=== PATIENT | female | born 1995 | race Caucasian/White ===

== ENCOUNTER 2020-04-10 19:30 | Emergency (ER) | payer OTHER ==
[~2020-04-10] VITALS: Ht 162.6 cm; Wt 114.5 kg
[2020-04-10 21:06] LABS: BASO % 0.3 % (0.0-1.0); EOS # 0.1 10^3/uL (0.0-0.5); EOS % 0.6 % (0.0-3.0); HEMATOCRIT 40.4 % (36.0-47.0); HEMOGLOBIN 12.5 g/dl (12.0-15.5); LYMPH # 4.3 10^3/uL (1.5-5.0); LYMPH % 33.5 % (24.0-44.0); MEAN CORPUSCULAR HEMOGLOBIN 28.2 pg (27.0-33.0); MEAN CORPUSCULAR HGB CONC 30.9 g/dl (32.0-36.5); MEAN CORPUSCULAR VOLUME 91.2 fl (80.0-96.0); MONO # 0.5 10^3/uL (0.0-0.8); MONO % 3.6 % (0.0-5.0); NEUTROPHILS # 7.8 10^3/uL (1.5-8.5); NEUTROPHILS % 61.7 % (36.0-66.0); PLATELET COUNT, AUTOMATED 397 10^3/uL (150-450); RED BLOOD COUNT 4.43 10^6/uL (4.00-5.40); WHITE BLOOD COUNT 12.7 10^3/uL (4.0-10.0)
[2020-04-10 21:20] LABS: ALT/SGPT 54 U/L (12-78); BILIRUBIN,DIRECT < 0.1 MG/DL (0.0-0.2); BILIRUBIN,TOTAL 0.2 MG/DL (0.2-1.0); LIPASE 63 U/L (73-393); TOTAL PROTEIN 8.3 GM/DL (6.4-8.2)
[2020-04-10] MEDS ORDERED: ISOVUE-370 76% 100ML VIAL As Ordered ONE (21:39)
--- NOTE | 2020-04-10 22:24 | REPVR ---
PROCEDURE INFORMATION: Exam: CT Abdomen And Pelvis With Contrast Exam date and time: 04/10/2020 10:07 PM Age: 25 years old Clinical indication: Abdominal pain; Generalized TECHNIQUE: Imaging protocol: Computed tomography of the abdomen and pelvis with intravenous contrast. Radiation optimization: All CT scans at this facility use at least one of these dose optimization techniques: automated exposure control; mA and/or kV adjustment per patient size (includes targeted exams where dose is matched to clinical indication); or iterative reconstruction. Contrast material: ISOVUE 370; Contrast volume: 100 ml; Contrast route: INTRAVENOUS (IV); COMPARISON: No relevant prior studies available. FINDINGS: Lungs: No suspicious mass or airspace process in the visualized lung bases. Liver: Liver is enlarged and decreased in density suggesting hepatic steatosis. Liver measures 25 cm in long axis. Gallbladder and bile ducts: Gallbladder is present and shows no evidence of gallstone. Pancreas: Pancreas appears normal. No focal mass or peripancreatic inflammation. Spleen: Spleen appears homogeneous without focal mass. Adrenal glands: Adrenal glands are normal in appearance. Kidneys and ureters: Kidneys appear normal, with no stone, solid mass or hydronephrosis. Stomach and bowel: No evidence of small bowel obstruction. Terminal ileum has normal appearance. No evidence of acute diverticulitis. Appendix: Normal caliber appendix is identified, with no adjacent inflammation. Intraperitoneal space: No pneumoperitoneum. Vasculature: No aortic aneurysm. Main portal and splenic veins enhance normally. Lymph nodes: No enlarged lymph nodes. Urinary bladder: Urinary bladder appears normal. Reproductive: Female reproductive organs appear unremarkable. Bones/joints: Bony structures are normal except for lumbar spine degenerative disc changes and congenital spinal stenosis with short pedicles. Soft tissues: Fat containing umbilical hernia is present. No effacement of normal fat planes in the ischiorectal fossa. No concerning focal abnormality of the extra-abdominal and pelvic soft tissues. IMPRESSION: 1. Hepatomegaly and hepatic steatosis. No focal lesion or biliary disease. 2. No acute bowel abnormality. No other concerning finding. Electronically signed by: Carrillo Hassan On 04/10/2020 22:23:50 PM
[2020-04-10] MEDS ORDERED: MACR100C43 PO (22:34)
[2020-04-10 22:43] VITALS: BP 186/108
[2020-04-10] MEDS ORDERED: NITROFURANTOIN (MACROBID) 100 MG CAP PO ONE (22:45)
== END 2020-04-10 22:51 | disposition home or self-care (01) ==
LOC: M ED 19:30
DX: N30.90 Cystitis, unspecified without hematuria (principal); F32.9 Major depressive disorder, single episode, unspecified; Z88.0 Allergy status to penicillin
CPT/HCPCS: 36415; 74177; 80076; 81001; 83690; 85025; 87086; 99285; Q9967

== ENCOUNTER 2020-05-15 17:22 | Emergency (ER) | payer OTHER ==
[~2020-05-15] VITALS: Ht 162.6 cm; Wt 115.1 kg
[~2020-05-15 17:22] MED LIST: MACR100C43 PO
[2020-05-15] MEDS ORDERED: QUET5TAB PO (17:32)
[2020-05-15] MEDS ORDERED: PANT40TA29 PO (17:32)
[2020-05-15] MEDS ORDERED: ESCI10TA2 PO (17:32)
[2020-05-15 20:06] LABS: HEMATOCRIT 41.1 % (36.0-47.0); HEMOGLOBIN 13.1 g/dl (12.0-15.5); MEAN CORPUSCULAR HGB CONC 31.9 g/dl (32.0-36.5); MEAN CORPUSCULAR VOLUME 87.8 fl (80.0-96.0); PLATELET COUNT, AUTOMATED 431 10^3/uL (150-450); RED BLOOD COUNT 4.68 10^6/uL (4.00-5.40); WHITE BLOOD COUNT 14.7 10^3/uL (4.0-10.0)
[2020-05-15 20:23] LABS: LYMPHOCYTES 21 % (16-44); MONOCYTES 3 % (0-5); NEUTROPHILS 76 % (28-66); PLATELET ESTIMATE INCREASED (NORMAL)
[2020-05-15 20:31] LABS: BLOOD UREA NITROGEN 16 MG/DL (7-18); CALCIUM LEVEL 9.4 MG/DL (8.5-10.1); CARBON DIOXIDE LEVEL 26 MEQ/L (21-32); CHLORIDE LEVEL 105 MEQ/L (98-107); CREATININE FOR GFR 0.61 MG/DL (0.55-1.30); GLOMERULAR FILTRATION RATE > 60.0 (>60); GLUCOSE, FASTING 103 MG/DL (70-100); POTASSIUM SERUM 4.3 MEQ/L (3.5-5.1); SODIUM LEVEL 138 MEQ/L (136-145)
[2020-05-15 20:34] LABS: HCG, SERUM QUALITATIVE NEGATIVE (NEGATIVE)
[2020-05-15] MEDS ORDERED: BACT800T5 PO (20:38)
[2020-05-15 20:41] VITALS: BP 131/87
== END 2020-05-15 20:57 | disposition home or self-care (01) ==
LOC: M ED 17:22
DX: N39.0 Urinary tract infection, site not specified (principal); I10 Essential (primary) hypertension; R56.9 Unspecified convulsions; F33.9 Major depressive disorder, recurrent, unspecified; E66.9 Obesity, unspecified; Z79.899 Other long term (current) drug therapy; Z88.0 Allergy status to penicillin

== ENCOUNTER 2020-07-25 10:58 | Emergency (ER) | payer OTHER ==
[~2020-07-25] VITALS: Ht 157.5 cm; Wt 117.0 kg
[~2020-07-25 10:58] MED LIST changes: +BACT800T5 PO; +ESCI10TA16 PO; +PANT40TA29 PO; +QUET50TA3 PO
--- OUTSIDE RECORDS SUMMARY | 2020-07-25 11:13 | CCD ---
Author Author [facility] Organization [facility] Address [address] [place] [address] Phone Care Team Providers Care Snack Stewardess Name Role Phone Az Marie DO Unavailable [phone] Az Marie DO PP [phone] Reason for Referral No Reason for Referral Recorded Problems Includes: Active, inactive, and resolved Problems All Visits Onset Date - Time Resolved Date - Time Provider Co ndition Status Difficulty Breathing (Dyspnea) 02/21/2020 - 12:00AM Nadia Mclain NP Active Depression 08/23/2019 - 12:00AM Az Marie DO Active Lactose Intolerance 08/23/2019 - 12:00AM Az sawyer DO Active Generalized Anxiety Disorder 06/23/2019 - 12:00AM Monique Marie DO Active History of Major Depression 06/23/2019 - 12:00AM Dimitrios Marie DO Active Dizziness 06/02/2019 - 12:00AM Patricia Mclain NP Act [place] 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 Elevated Liver Enzymes 03/21/2019 - 12:00AM Az Marie DO Active Microalbuminuria 03/21/2019 - 12:00AM Az zepeda DO Active Skin Disorder Exanthem 01/08/2018 - 12:00AM Unknown - Unknown Yonatan Short MD Resolved Note: Resolved Anemia 10/27/2016 - 12:00AM Tori Savage Active Note: Unchanged Visit For: Screening Exam Depression 10/20/2016 - 12:00AM Tori Short MD Active Dysmenorrhea 10/20/2016 - 12:00AM Tori Savage Active Note: with hypermenorrhea Visit For: Screening Exam Lipoid Disorders 10/20/2016 - 12:00AM Tori Short MD Active Visit For: Screening Exam For Human Immunodeficiency Virus 0 10/20/2016 - 12:00AM Tori Short MD Active Obesity Morbid 10/17/2015 - 12:00AM Tori Short MD Active Note: Improved Visit For: Screening Exam For Malignant Neoplasm Cervix 10/17/19 16 - 12:00AM Tori Sohrt MD Active Note: no sexual activity. 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 - 12:00AM Tori Savage Active Note: Well-Controlled - bilalexander teral, followed by Dr Blackwell Intellectual Disabilities 09/12/2013 - 12:00AM Jessica Short MD Active Note: Unchanged Epilepsy 08/30/2007 - 12:00AM Unknown - Unknown Tori lane MD Resolved Note: Resolved - DR RAMÍREZ followed, was ON LAMOTRIGINE 150 BID, discontinued 2012 Plan of Treatment Pending Tests Order Diagnosis Results Due Ordering Provi domonique Lab CT ABD & PEL W CONTRAST 04/12/20 Aster Santana NP Referrals To Diagnosis Physical Therapy Other specified aki enital deformities of feet Note: Please schedule patient with provi derPhysical Therapy: please schedule 3 times weekly for 6 months for evaluation and treatment of: Club Feet GI [facility] Gastroentero logy and M Epigastric pain Note: Please schedule patient with provi domonique- persistent abd sx's send last few notes and scans [facility] Major depressive dis order, single episode, unspecified Note: Depressive symptoms after loss of grandfather who raised her since 3 weeks of age. He a year ago. Started on SSRI 2 months ago. 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, bronchus and lung Note: Please schedule patient with provi domonique- please CC last [address] scans [facility] Major depressive dis order, single episode, unspecified Note: Please schedule patient with provi domonique- dx as listed hx poorly controlled A/D with weekly and sometimes daily trips to ER / admission and limited cognitive capacity- 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- Antony Cox Future Appointments Date Time Location Provider D Emergency 07/25/2020 4:15PM [facility] Anni morales DDS Chronic Disease Follow-up 10/23/2020 1:00PM [facility] Trang Enamorado BRANCH SERVICE LEADER Findings Encounter Date Ordered return to the clinic if condition worsens or n ew symptoms arise Acute Follow-up Telehealth with Aster Santana RESIDENTIAL PROPERTY CONSULTANT 07/20/2020 Ordered return to the clinic if condition worsens or n ew symptoms arise Acute L1 with Nicolasa Pablo NP 07/18/2020 Instructions for patient YOUR SYMPTOMS TODAY ARE POTENTIALLY CONSISTENT WITH COVID-19. FOR THIS REASON WE HAVE ADVISED A COVID TEST. PATIENT REFUSED. SHE LIVES ALONE AND IS TYPICALLY HOMEBOUND. SHE IS AWARE THAT SHE NEEDS TO QUARANTINE AT HOME FOR THE NEXT 10 DAYS, AT MINIMUM. ADVISED HER TO MONITOR FOR A FEVER OR WORSENING SYMPTOMS, TO CALL WITH ANY CONCERNS. TO HAVE GROCERIES DROPPED OFF AT HER DOOR. DURING THIS TIME IT IS IMPORTANT TO REST, INCREASE FLUIDS, AND MONITOR SYMPTOMS. MAY USE TYLENOL/IBUPROFEN NEEDED FOR FEVER/DISCOMFORT. ENCOURAGED USE OF FLONASE AND CONTINUE HYDROXYZINE. USE HUMIDIFIER/HOT STEAM FOR NASAL PASSAGES. WE WILL CALL WITH LAB RESULTS. F/U WITH PCP IN 7-10 DAYS. CALL SOONER WITH ANY CONCERNS Acute L1 with Aura Roa BRANCH SERVICE LEADER 06/26/2020 Ordered return to the clinic if condition worsens or n ew symptoms arise Acute L2 with Aster Santana RESIDENTIAL PROPERTY CONSULTANT 05/18/2020 Ordered follow-up visit AHR with Trang Enamorado BRANCH SERVICE LEADER 2019 Ordered return to the clinic if condition worsens or n ew symptoms arise AHR with Trang Enamorado BRANCH SERVICE LEADER 05/01/2020 Return to the clinic if condition worsens or new sympt oms arise AHR with Trang Enamorado BRANCH SERVICE LEADER 05/01/2020 Instructions for patient Acute L1 with Aster Santana RESIDENTIAL PROPERTY CONSULTANT 03/16 Ordered follow-up visit Acute L1 with Aster Santana RESIDENTIAL PROPERTY CONSULTANT 04/10 Ordered return to the clinic if condition worsens or n ew symptoms arise Acute L1 with Aster Santana RESIDENTIAL PROPERTY CONSULTANT 04/10/2020 Instructions for patient Acute L3 with Az Savage O 03/12/2020 Ordered follow-up visit Acute L3 with Az Marie DO 03/12/2020 Ordered return to the clinic if condition worsens or n ew symptoms arise Acute L3 with Az Marie DO 03/12/2020 Ordered return to the clinic if conditio n worsens or new symptoms arise WILL SEND HER EKG TO CARDIOLOGY FOR OFFICIAL READ. I ADVISED HER TO GO HOME AND RELAX FOR THE REST OF THE DAY. SHE WAS D/C'D IN STABLE CONDITION Emergency with Aster Frausto RESIDENTIAL PROPERTY CONSULTANT 03/05/2020 Return to the clinic if condition worsens or new sympt oms arise Emergency with Patricia Mclain RESIDENTIAL PROPERTY CONSULTANT 02/21/2020 Instructions for patient D Emergency with Az katz DO 02/03/2020 Ordered follow-up visit D Emergency with Az Marie DO 02/03/2020 Ordered return to the clinic if condition worsens or n ew symptoms arise D Emergency with Az Marie DO 02/03/2020 Ordered Clinical summary transmitted to referring provider electronically with reasonable certainty of receipt or receiving provider electronically through [facility] Telephonic Encounter with Az Marie DO 01/26/2020 Ordered Clinical summary transmitted to referring provider electronically with reasonable certainty of receipt or receiving provider electronically through [facility] Telephonic Encounter with Az Marie DO 12/12/2019 Instructions for patient Emergency with Az Marie DO 12/02/2019 Ordered Clinical summary transmitted to referring provider electronically with reasonable certainty of receipt or receiving provider electronically through [facility] ER Emergency with Az Marie DO 12/02/2019 Ordered follow-up visit Emergency with Az Savage O 12/02/2019 Ordered return to the clinic if condition worsens or n ew symptoms arise Emergency with Az Marie DO 12/02/2019 Instructions for patient Hospital Follow-up with Az hylton DO 11/21/2019 Ordered Clinical summary transmitted to referring provider electronically with reasonable certainty of receipt or receiving provider electronically through [facility] Follow-up with Az Marie DO 11/21/2019 Ordered follow-up visit Hospital Follow-up with Az stephenson DO 11/21/2019 Ordered return to the clinic if condition worsens or n ew symptoms arise Hospital Follow-up with Az Marie DO 11/21/2019 Instructions for patient Telehealth with Az Marie DO 09/08/2019 Ordered Clinical summary transmitted to referring provider electronically with reasonable certainty of receipt or receiving provider electronically through [facility] ER Telehealth with Az Marie DO 09/08/2019 Ordered follow-up visit Telehealth with Az Marie DO 09/08/2019 Ordered return to the clinic if condition worsens or n ew symptoms arise Telehealth with Az Marie DO 09/08/2019 Instructions for patient Medication Follow-up with Az Marie DO 08/23/2019 Ordered follow-up visit Medication Follow-up with Az Marie DO 08/23/2019 Ordered return to the clinic if condition worsens or n ew symptoms arise Medication Follow-up with Az Marie DO 08/23/2019 Instructions for patient Labs as ord ered. GI referral as ordered. Will get MRI brain and call with results. Follow up with Dr. Marie as scheduled 09/07, sooner with concerns or changes. ER with any chest pain, severe dizziness, syncope, mental status changes. Hospital Follow-up with Trang TOMPKINS 08/18/2019 Ordered Clinical summary transmitted to referring provider electronically with reasonable certainty of receipt or receiving provider electronically through [facility] Follow-up with Trang Enamorado [facility] 0 Ordered follow-up visit Hospital Follow-up with Trang lindo [facility] 08/18/2019 Ordered return to the clinic if condition worsens or n ew symptoms arise Hospital Follow-up with Trangmary beth Enamorado [facility] 08/18/2019 Instructions for patient meds as rx in crease fluids medicate for temp -Can go to the ER if worsening sx Otherwise follow here if not better with tx Walk- In with Anay Rincon NP 06/27/2019 Ordered Clinical summary transmitted to referring provider electronically with reasonable certainty of receipt or receiving provider electronically through [facility] ER Walk-In with Anay Rincon RESIDENTIAL PROPERTY CONSULTANT 06/27/2019 Ordered return to the clinic if condition worsens or n ew symptoms arise Walk-In with Anay Rincon RESIDENTIAL PROPERTY CONSULTANT 06/27/2019 Instructions for patient Hospital Follow-up with Az hylton DO 06/23/2019 Ordered Clinical summary transmitted to referring provider electronically with reasonable certainty of receipt or receiving provider electronically through [facility] ER Hospital Follow-up with Az Marie DO 06/23/2019 Ordered follow-up visit Hospital Follow-up with Az stephenson DO 06/23/2019 Ordered return to the clinic if condition worsens or n ew symptoms arise Hospital Follow-up with Az Marie DO 06/23/2019 Ordered Clinical summary transmitted to referring provider electronically with reasonable certainty of receipt or receiving provider electronically through [facility] ER Walk-In with Patricia Mclain NP 06/02/2019 Return to the clinic if condition worsens or new sympt oms arise Walk-In with Patricia Mclain RESIDENTIAL PROPERTY CONSULTANT 06/02/2019 Instructions for patient Follow-up Acute with Az evans DO 05/09/2019 Ordered Clinical summary transmitted to referring provider electronically with reasonable certainty of receipt or receiving provider electronically through [facility] ER Follow-up Acute with Az Marie DO 05/09/2019 Ordered follow-up visit Follow-up Acute with Az rendon DO 05/09/2019 Ordered return to the clinic if condition worsens or n ew symptoms arise Follow- up Acute with Az Marie DO 05/09/2019 Instructions for patient Hospital Follow-up with Az hylton DO 05/02/2019 Ordered Clinical summary transmitted to referring provider electronically with reasonable certainty of receipt or receiving [facility] Hospital Follow-up with Az Marie DO 05/02/2019 Ordered follow-up visit Hospital Follow-up with Az stephenson DO 05/02/2019 Ordered return to the clinic if condition worsens or n ew symptoms arise Hospital Follow-up with Az Marie DO 05/02/2019 Ordered Clinical summary transmitted to referring provider electronically with reasonable certainty of receipt or receiving provider [facility] Walk-In with Aster SHANE 04/25/2019 Ordered follow-up visit 1-2 weeks if no t resolving-- sooner if weakness, increased pain or symptoms-- Walk-In with Aster SHANE 04/25/2019 Ordered return to the clinic if condition worsens or n ew symptoms arise Walk-In with Aster SHANE 04/25/2019 Instructions for patient Establish Care with Az rendon DO 03/15/2019 Ordered Clinical summary transmitted to referring provider electronically with reasonable certainty of receipt or receiving provider [facility] Establish Care with Az Marie DO 03/15/2019 Ordered follow-up visit Establish Care with Az zepeda DO 03/15/2019 Ordered return to the clinic if condition worsens or n ew symptoms arise Establish Care with Az Marie DO 03/15/2019 Ordered Clinical summary transmitted to referring provider electronically or receiving provider [facility] AHR with Tori Short MD 04/28/2018 Ordered return to the clinic if condition worsens or n ew symptoms arise AHR with Tori Short MD 04/28/2018 Ordered Clinical summary transmitted to referring provider electronically or receiving provider [facility] Walk-In with Ana Boswell DO 01/08/2018 Continue current medication except where otherwise no rosa maria Chronic Disease Follow-up with Tori Short MD 08/13/2017 Ordered Clinical summary transmitted to referring provider electronically or receiving provider [facility] Chronic Disease Follow-up with Tori Short MD 08/13/2017 Ordered return to the clinic if condition worsens or n ew symptoms arise Chronic Disease Follow-up with Tori Short MD 08/13/2017 Continue current medication except where otherwise no rosa maria Chronic Disease Follow-up with Tori Short MD 03/11/2017 Ordered return to the clinic if condition worsens or n ew symptoms arise Chronic Disease Follow-up with Tori Short MD 03/11/2017 Ordered Transition in care, clinical sum aster provided electronically through [facility] Chronic Disease Follow-up with Tori Short MD 03/11/2017 Continue current medication unless otherwise stated A HR with Tori Short MD 10/20/2016 Medical regimen review AHR with Tori Short MD 2016 Ordered follow-up visit AHR with Tori Short MD 10/20 Ordered return to the clinic if condition worsens or n ew symptoms arise AHR with Tori Short MD 10/20/2016 Ordered Transition in care, clinical sum aster provided electronically through [facility] AHR with Tori Short MD 10/20/2016 Patient education about pain management AHR with Tori Short MD 10/20/2016 Ordered return to the clinic if condition worsens or n ew symptoms arise Consult with Tori Short MD 08/06/2016 Patient education about pain management as appropriat e Consult with Tori Short MD 08/06/2016 Continue current medication unless otherwise indicate d AHR with Tori Short MD 10/17/2015 Medical regimen review AHR with Tori Short MD 2015 Ordered follow-up visit AHR with Tori Short MD 10/16 Ordered return to the clinic if condition worsens or n ew symptoms arise AHR with Tori Short MD 10/17/2015 Patient education about pain management as appropriat e AHR with Tori Short MD 10/17/2015 Continue current medication except where otherwise no rosa maria Work Physical with Tori Short MD 08/16/2015 Ordered return to the clinic if condition worsens or n ew symptoms arise Work Physical with Tori Short MD 08/16/2015 Return to the clinic if condition worsens or new sympt oms arise Walk-In with Ana Boswell DO 12/29/2014 Continue current medication unless otherwise stated A HR with Tori Short MD 10/02/2014 Medical regimen review AHR with Tori Short MD 2014 Ordered follow-up visit AHR with Tori Short MD 10/02 Ordered return to the clinic if condition worsens or n ew symptoms arise AHR with Tori Short MD 10/02/2014 Patient education about pain management AHR with Tori Short MD 10/02/2014 Ordered disposition - Patient or jacques oakes was instructed in use of tylenol and/or motrin as needed for pain or fever, and mucinex as needed. Fluids, rest was advised. Also, the patient is to return or call for appointment if there is persistence of fever for more than 48 hours, pain or other new significant symptoms Walk-In with Aster SHANE 09/12/2014 Ordered return to the clinic if condition worsens or n ew symptoms arise Walk-In with Aster SHANE 09/12/2014 Continue soaking hand in hot water sev eral times a day for 15-20 minutes. May apply abx ointment and cover with BA. Complete full course of Bactrim wound check with Yen Garland NP 09/20/2013 Ordered return to the clinic if condition worsens or n ew symptoms arise wound check with Yen Garland NP 09/20/2013 Soak hand in hot water for 15-20 min 3-4 times a day to promote drainage M Same Day with Yen Garland NP 09/16/2013 Ordered disposition - Hand was soaked i n hot water with povidine; scab was removed with #11 blade; specimen taken; no fb visualized; triple abx ointment applied to wound and covered with BA. Pt tolerated without complaint M Same Day with Yen Garland NP 09/16/2013 Ordered return to the clinic if condition worsens or n ew symptoms arise M Same Day with Yen Garland NP 09/16/2013 Ordered return to the clinic if condition worsens or n ew symptoms arise WELL CHILD CHECK with Yen Garland NP 09/12/2013 Recommended regular toileting schedule at school to decrease incontinence M Same Day with Yen Garland NP 04/15/2013 Ordered fluids (patient to increase p.o. intake) M Sa me Day with Yen Garland RESIDENTIAL PROPERTY CONSULTANT 04/15/2013 Ordered return to the clinic if condition worsens or n ew symptoms arise M Same Day with Yen Garland NP 04/15/2013 Supplies sent home for stool specimen. GM aware M Sa me Day with Yen Garland RESIDENTIAL PROPERTY CONSULTANT 03/17/2013 Ordered return to the clinic if condition worsens or n ew symptoms arise M Same Day with Yen Garland NP 03/17/2013 Also recommended A&D ointment for erythema of vagina l area M Same Day with Yen Garland RESIDENTIAL PROPERTY CONSULTANT 10/20/2012 Ordered a urine culture M Same Day with Yen Garland RESIDENTIAL PROPERTY CONSULTANT 10/20/2012 Ordered fluids (patient to increase p.o. intake) Sa me Day with Yen Garland RESIDENTIAL PROPERTY CONSULTANT 10/20/2012 Ordered urinalysis M Same Day with Yen Garland RESIDENTIAL PROPERTY CONSULTANT 01/2013 Ordered a urine culture M Same Day with Yen Garland RESIDENTIAL PROPERTY CONSULTANT 10/07/2012 Ordered fluids (patient to increase p.o. intake) Day with Yen Garland RESIDENTIAL PROPERTY CONSULTANT 10/07/2012 Ordered urinalysis M Same Day with Yen Garland NP 09/14 Keep toe clean and dry. May apply antibacterial oint ment prn WELL CHILD CHECK with Yen Garland NP 08/19/2012 Ordered return to the clinic if condition worsens or n ew symptoms arise WELL CHILD CHECK with Yen Garland NP 08/19/2012 Ordered return to the clinic if condition worsens or n ew symptoms arise M Same Day with Yen Garland NP 07/16/2011 TC to to discuss findings and recommendations WEL L CHILD CHECK with Yen Garland NP 06/24/2011 Ordered influenza virus vaccine Provided VIS and perm ission form today WELL CHILD CHECK with Yen Garland NP 06/24/2011 Ordered return to the clinic if condition worsens or n ew symptoms arise M Same Day with Yen Garland RESIDENTIAL PROPERTY CONSULTANT 05/20/2011 Ordered return to the clinic if condition worsens or n ew symptoms arise M Same Day with Yen Garland NP 04/29/2011 Ordered return to the clinic if condition worsens or n ew symptoms arise M Same Day with Yen Garland NP 03/12/2011 Ordered return to the clinic if condition worsens or n ew symptoms arise M Same Day with Yen Morales Gill RESIDENTIAL PROPERTY CONSULTANT 03/10/2011 Ordered return to the clinic if condition worsens or n ew symptoms arise M Same Day with Yen L Gill COULTER 02/20/2011 Recommended otc ear gtts for cerumen - debrox. Will recheck in 1-2 weeks M Acute with Yen Morales Gill COULTER 05/29/2009 Ordered disposition - Telephone call to to discuss findings and recommendations M Acute with Yen Morales Gill COULTER 05/29/2009 Ordered follow-up visit in 1-2 weeks M Acute with Yen Domenica Amara munoz RESIDENTIAL PROPERTY CONSULTANT 05/29/2009 Ordered return to the clinic if condition worsens or n ew symptoms arise M Acute with Yen Morales Gill RESIDENTIAL PROPERTY CONSULTANT 05/29/2009 Assessments Includes: Assessments for all patient encounters Findings Encounter Date Pharyngitis Acute Follow-up Telehealth with Aster malave RESIDENTIAL PROPERTY CONSULTANT 07/20/2020 Acute pharyngitis Acute L1 with Nicolasa Pablo RESIDENTIAL PROPERTY CONSULTANT 07/18 Vaginitis Acute L1 with Aura Roa [facility] 2020 Viral syndrome Acute L1 with Aura Roa [facility] 2020 Vaginitis Acute Follow-up Well with Aster Santana NP 05/22/2020 Pediculosis Acute L2 with Aster Santana NP 0 Depression - Appears to be doing well today. 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 Also stable in size on CTA from 11/14/19. Can consider imaging in 1 year- November 2020. Patient low risk AHR with Trang Panda Kelsea [facility] 05/01/2020 Routine history and physical see [facility] ed problem list above for impression and plan of any problems addressed today. Immunizations reviewed. Tetanus advsied and refused. Flu up to date. Pnuemonia up to date. Shingles after 50. Routine cancer screening reviewed. PAP done today. Mammograms at age 49. Colon screenig at age 49. AHR with Trang Enamorado [facility] 05/01/2020 Abdominal pain Acute L1 with Aster Santana RESIDENTIAL PROPERTY CONSULTANT 0 Dyspnea Acute L1 with Aster Santana RESIDENTIAL PROPERTY CONSULTANT 0 Major depressive disorder [Patient Encounter] with Daphne Rosenberg MD 04/04/2020 No psychological trauma [Patient Encounter] with Daphne thomas MD 04/04/2020 No substance abuse [Patient Encounter] with Daphne Rosenberg MD 04/04/2020 No substance dependence [Patient Encounter] with Daphne thomas MD 04/04/2020 Depression Acute L3 with Az Marie DO Generalized anxiety disorder Acute L3 with Az guadarrama DO 03/12/2020 Morbid obesity Acute L3 with Az Marie DO Assessment of dizziness Emergency with Aster Olvera Bharat crum RESIDENTIAL PROPERTY CONSULTANT 03/05/2020 Cerumen impaction Emergency with Aster Olvera Bharat Kitty stephens RESIDENTIAL PROPERTY CONSULTANT 03/05/2020 Assessment of dizziness Emergency with Patricia Mclain RESIDENTIAL PROPERTY CONSULTANT 01/2020 Assessment of dyspnea Emergency with Patricia Mclain NP 2019 Chest pain Emergency with Patricia Mclain NP 02/21/20 20 Intellectual disabilities Emergency with Patricia Mclain RESIDENTIAL PROPERTY CONSULTANT Suicide risk Emergency with Patricia Mclain RESIDENTIAL PROPERTY CONSULTANT 02/21/20 20 Chest pain D Emergency with Az Marie DO 02/03/2020 Depression D Emergency with Az Marie DO 02/03/2020 Lactose intolerance D Emergency with Az Marie DO 02/03/2020 Lung neoplasm of uncertain behavior D Emergency with Az Marie DO 02/03/2020 Depression Telephonic Encounter with Az evans DO 01/26/2020 Lactose intolerance Telephonic Encounter with Az evans DO 01/26/2020 Lung neoplasm of uncertain behavior Telephonic Encount er with Az Marie DO 01/26/2020 Depression Telephonic Encounter with Az evans DO 12/12/2019 Dizziness Telephonic Encounter with Az evans DO 12/12/2019 Lactose intolerance Telephonic Encounter with Az evans DO 12/12/2019 Lung neoplasm of uncertain behavior Telephonic Encount er with Az Marie DO 12/12/2019 Assessment of dizziness : sx consistent with stress induced vasovegal response. By the end of the visit pt reported that she felt fine and she left in good spirits Emergency with Az Marie DO 12/02/2019 Depression Hospital Follow-up with Az Petersen katelyn DO 11/21/2019 Dizziness Hospital Follow-up with Azbrit Petersen katelyn DO 11/21/2019 Lactose intolerance Hospital Follow-up with Az zepeda DO 11/21/2019 Lung neoplasm of uncertain behavior Hospital Follow-up with Az Marie DO 11/21/2019 Pneumonia Hospital Follow-up with Az Petersen katelyn DO 11/21/2019 Vasovagal syncope Hospital Follow-up with Az Petersen katelyn DO 11/21/2019 Depression Telehealth with Az Marie DO 0 09/08/2019 Dizziness Telehealth with Azbrit Marie DO 0 09/08/2019 Lactose intolerance Telehealth with Az Marie DO 0 09/08/2019 Lung neoplasm of uncertain behavior Telehealth with Az Marie DO 09/08/2019 Depression Medication Follow-up with Az Mercer ujulieta DO 08/23/2019 Dizziness Medication Follow-up with Azbrit Mercer ujulieta DO 08/23/2019 Lactose intolerance Medication Follow-up with Azbrit evans DO 08/23/2019 Lung neoplasm of uncertain behavior Medication Follow- up with Azbrit Marie DO 08/23/2019 Abdominal pain - Ongoing for months. la bs benign in the past. CT abd pelvis and Transvaginal US reviewed. Multiple ER visits. Was referred to GI and did not follow through. Will assist her with getting new appt as she did not seem to understand pervious appt Hospital Follow-up with Trang JOVELP 0 Dizziness - Neuro exam benign. No ortho static hypotension. Has recieved numerous EKG, all benign, EKG in ER 08/15/2019. No cardiac symptoms. RReports having some balance issues, willl get MRI. She tells me she will not go today but will go this week. She declines ER evaluation Hospital Follow-up with Trang TOMPKINS 08/18/2019 Pharyngitis - testing negative. No othe r sick symptoms. Montior and symptomatic care. Call with worsening symptoms Hospital Follow-up with Trang TOMPKINS 08/18/2019 Sinusitis Walk-In with Anay Rincon RESIDENTIAL PROPERTY CONSULTANT 020 Urinary tract infection Walk-In with Anay Rincon RESIDENTIAL PROPERTY CONSULTANT Abdominal pain--epigastric Hospital Follow-up with Az Marie DO 06/23/2019 Elevated liver enzymes Hospital Follow-up with Az sawyer DO 06/23/2019 No cyst on the left ovary Hospital Follow-up with Az Marie DO 06/23/2019 Urinary tract infection Hospital Follow-up with Az stephenson DO 06/23/2019 Abdominal pain Walk-In with Patricia Mclain NP 06/02/2019 Assessment of dizziness Walk-In with Patricia Mclain NP 2018 Chest pain Walk-In with Patricia Mclain RESIDENTIAL PROPERTY CONSULTANT 06/02/2019 Nausea Walk-In with Patricia Mclain RESIDENTIAL PROPERTY CONSULTANT 06/02/2019 Abdominal pain--epigastric Follow-up Acute with Az stephenson DO 05/09/2019 Elevated liver enzymes Follow-up Acute with Az zepeda DO 05/09/2019 No cyst on the left ovary Follow-up Acute with Az sawyer DO 05/09/2019 Urinary tract infection Follow-up Acute with Az rendon DO 05/09/2019 Abdominal pain--LLQ Hospital Follow-up with Az zepeda DO 05/02/2019 Cyst on the left ovary Hospital Follow-up with Az sawyer DO 05/02/2019 Elevated liver enzymes Hospital Follow-up with Az sawyer DO 05/02/2019 Lung neoplasm of uncertain behavior Hospital Follow-up with Az Marie DO 05/02/2019 Noncardiac chest pain Hospital Follow-up with Az evans DO 05/02/2019 Urinary tract infection Hospital Follow-up with Az stephenson DO 05/02/2019 Abdominal pain after she came back from xray now complaining of abdominal and dizziness and she is being sent to the ER for further eval and treatment options-- Walk-In with Aster SHANE 04/25/2019 Contusion with intact skin surface of the left arm [facility] with Aster SHANE 04/25/2019 Dizziness blood sugar checked and was 91 in the offic e-- Walk-In with Aster SHANE 04/25/2019 Intellectual disabilities Walk-In with Aster SHANE Nausea Walk-In with Aster SHANE 04/25/20 19 Slipped on the ice Walk-In with Aster SHANE 04/25/20 19 Thoracic strain Walk-In with Aster SHANE 04/25/20 19 Anxiety disorder due to general medical condition Esta blish Care with Az Marie DO 03/15/2019 Impaired fasting glucose Establish Care with Az rendon DO 03/15/2019 Morbid obesity Establish Care with Az Marie DO 03/15/2019 Anemia AHR with Tori Short MD 8 Assessment of visit for: screening for depression AHR with Tori Short MD 04/28/2018 Assessment of visit for: screening for human immunodef iciency virus AHR with Tori Short MD 04/28/2018 Assessment of visit for: screening for lipoid disorder s AHR with Tori Short MD 04/28/2018 Assessment of visit for: screening for malignant cervi jose neoplasm AHR with Tori Short MD 04/28/2018 Club foot AHR with Tori Short MD 8 Dysmenorrhea AHR with Tori Short MD 8 Exanthem AHR with Tori Short MD 8 Impaired fasting glucose AHR with Tori Short MD 04/15 Intellectual disabilities AHR with Tori Short MD Morbid obesity AHR with Tori Short MD 8 Visit for routine adult H&P without abnormal findings AHR with Tori Short MD 04/28/2018 Exanthem Rash appears to be irritation from rubbing skin. I advised bactroban cream applied twice daily to help with friction. Advised she keep skin clean and dry. advised she avoid clothing that rubs in that area. Advised to come back if not better in 1-2 weeks Walk-In with Ana Boswell DO 01/08/2018 Morbid obesity Walk-In with Ana Boswell DO 01/08/2018 Anemia Chronic Disease Follow-up with Tori Short MD 08/13/2017 Assessment of visit for: screening for depression Parachute [employer] albaro Disease Follow-up with Tori Short MD 08/13/2017 Assessment of visit for: screening for human immunodef iciency virus Chronic Disease Follow-up with Tori Short MD 08/13/2017 Assessment of visit for: screening for lipoid disorder s Chronic Disease Follow- up with Tori Short MD 08/13/2017 Assessment of visit for: screening for malignant cervi jose neoplasm Chronic Disease Follow-up with Tori Short MD 08/13/2017 Club foot Chronic Disease Follow-up with Tori Short MD 08/13/2017 Dysmenorrhea Chronic Disease Follow-up with Tori Short MD 08/13/2017 Impaired fasting glucose Chronic Disease Follow-up with Monique Short MD 08/13/2017 Intellectual disabilities Chronic Disease Follow-up with Felicia Short MD 08/13/2017 Morbid obesity Chronic Disease Follow-up with Tori Short MD 08/13/2017 Anemia Chronic Disease Follow-up with Tori Short MD 03/11/2017 Assessment of visit for: screening for depression Parachute [employer] albaro Disease Follow-up with Tori Short MD 03/11/2017 Assessment of visit for: screening for human immunodef iciency virus Chronic Disease Follow-up with Tori Short MD 03/11/2017 Assessment of visit for: screening for lipoid disorder s Chronic Disease Follow- up with Tori Short MD 03/11/2017 Assessment of visit for: screening for malignant cervi jose neoplasm Chronic Disease Follow-up with Tori Short MD 03/11/2017 Club foot Chronic Disease Follow-up with Tori Short MD 03/11/2017 Dysmenorrhea Chronic Disease Follow-up with Tori Short MD 03/11/2017 Impaired fasting glucose Chronic Disease Follow-up with Monique Short MD 03/11/2017 Intellectual disabilities Chronic Disease Follow-up with Felicia Short MD 03/11/2017 Morbid obesity Chronic Disease Follow-up with Tori Short MD 03/11/2017 Assessment of visit for: screening for malignant cervi jose neoplasm AHR with Tori Short MD 10/20/2016 Club foot AHR with Tori Short MD 7 Impaired fasting glucose AHR with Tori Short MD 01/2017 Intellectual disabilities AHR with Tori Short MD 01/2017 Morbid obesity AHR with Tori Short MD 7 Visit for routine adult H&P without abnormal findings AHR with Tori Short MD 10/20/2016 Visit for: screening for depression AHR with Tori lane MD 10/20/2016 Visit for: screening for human immunodeficiency virus AHR with Tori Short MD 10/20/2016 Visit for: screening for lipoid disorders AHR with Tori Short MD 10/20/2016 Club foot Consult with Tori Short MD 08/06 Club foot AHR with Tori Short MD 6 Impaired fasting glucose AHR with Tori Short MD 09/2015 Intellectual disabilities AHR with Tori Short MD 09/2015 Morbid obesity AHR with Tori Short MD 6 Visit for routine adult H&P without abnormal findings AHR with Tori Short MD 10/17/2015 Visit for: screening for malignant cervical neoplasm A HR with Tori Short MD 10/17/2015 Visit for: pre-employment physical Work Physical with Rosendo Short MD 08/16/2015 Impaired fasting glucose I advised ester holland and her grandmother that michelle is not diabetic. However, she is at very high risk for developing diabetes due to her weight and her unhealthy lifestyle. I advised the grandmother that since she does the shopping and the cooking, that she get all of the junk food out of the house. I advsied that the only choices for beverages should be water or milk and that patient should have NO fruit punch, soda, juice or sweetened ice teas. I advised to eliminate all cookies, cakes, chips, ice cream, and candy from the house. I adivsed it was important to eat 3 healthy meals each day with nutritious snacks inbetween meals such as yogurt and carrot sticks or a piece of fruit. I advised patient walk for 20-30 min daily. THe grandmother agreed and advised she would start to make drastic changes in the house Walk-In with Ana Boswell DO 12/29/2014 Obesity Walk-In with Ana Boswell DO 12/29/2014 Club foot AHR with Tori Short MD 5 Epilepsy , resolved AHR with Tori Short MD 5 Intellectual disabilities AHR with Tori Short MD Normal routine history and physical AHR with Tori Short MD 10/02/2014 Obesity AHR with Tori Short MD 5 Bronchitis Walk-In with Aster SHANE 09/13/19 15 Cerumen impaction bilat wax, GM will start ear drops bilat for wax removal Walk-In with Aster SHANE 09/12/2014 Epilepsy off meds, no symptoms--per GM Walk-In with Aster SHANE 09/12/2014 Intellectual disabilities Walk-In with Aster SHANE Abscess - left hand wound check with Yen Garland RESIDENTIAL PROPERTY CONSULTANT 0 09/20/2013 Abscess - left hand - possible fb M Same Day with Yen Tiptonries RESIDENTIAL PROPERTY CONSULTANT 09/16/2013 Patient is approved for participation in School, Physical Education, and Sports for 1 year WELL CHILD CHECK with Yenfidel Tiptonries RESIDENTIAL PROPERTY CONSULTANT 09/12/2013 Normal routine history and physical adolescent (12 - 7) WELL CHILD CHECK with Yen L Gill RESIDENTIAL PROPERTY CONSULTANT 09/12/2013 Urinary tract infection M Same Day with Yen L Gill RESIDENTIAL PROPERTY CONSULTANT 04/15/2013 Diarrhea - most likely due to lactose intolerance M Same Day with Yenfidel Tiptonries RESIDENTIAL PROPERTY CONSULTANT 03/17/2013 Urinary tract infection M Same Day with Yen L Gill RESIDENTIAL PROPERTY CONSULTANT 10/20/2012 Urinary tract infection M Same Day with Yen L Gill RESIDENTIAL PROPERTY CONSULTANT 10/07/2012 Patient is approved for participation in School, Physical Education, and Sports for 1 year WELL CHILD CHECK with Yen L Gill RESIDENTIAL PROPERTY CONSULTANT 08/19/2012 Normal routine history and physical adolescent (12 - 1 7) WELL CHILD CHECK with Yen L Gill RESIDENTIAL PROPERTY CONSULTANT 08/19/2012 Patient is approved for participation in School, Physical Education, and Sports for 1 year WELL CHILD CHECK with Yenfidel Tiptonries RESIDENTIAL PROPERTY CONSULTANT 06/24/2011 Normal routine history and physical adolescent (12 - 1 8) WELL CHILD CHECK with Yen L Gill RESIDENTIAL PROPERTY CONSULTANT 06/24/2011 Patient is approved for participation in School, Physical Education, and Sports for 1 year M Acute with Yen L Gill COULTER 06/24/2010 Normal routine history and physical adolescent (12 - 1 8) M Acute with Yen L Gill RESIDENTIAL PROPERTY CONSULTANT 06/24/2010 Patient is approved for participation in School, Physical Education, and Sports for 1 year - Adaptive M Acute with Yen Garland NP 06/20/2009 Normal routine history and physical adolescent (12 - 1 8) M Acute with Yen Garland RESIDENTIAL PROPERTY CONSULTANT 06/20/2009 Cerumen impaction M Acute with Yen Garland RESIDENTIAL PROPERTY CONSULTANT 009 Lactose intolerance 30 minutes with Aster catherine NP 02/13/2009 Seizure disorder 30 minutes with Aster catherine RESIDENTIAL PROPERTY CONSULTANT 02/13/2009 Instructions Instructions not supported for this document typeNo Instructions Recorded Medical Equipment - Implanted Devices Includes: Current and historical DevicesNo Medical Equipment Recorded Medications Includes: Current and historical Medications Current Medications (continue as prescribed) guaiFENesin ER 600 MG Oral Tablet Extended Release 12 Hour 0 07/20/2020 Provider: Aster Santana NP Diagnosis: Acute pharyngitis, u nspecified 1 tab twice daily Flonase Allergy Relief 50 MCG/ACT Nasal Suspension Provider: Aura JOVELP Diagnosis: Viral infection, uns pecified one spray each nostril BID hydrOXYzine HCl 50 MG Oral Tablet 06/21/2020 Provid er: Aster Santana NP Diagnosis: Anxiety disorder, un specified 1 tablet PO Q6h PRN for anxiety or sleep Pantoprazole Sodium 40 MG Oral Tablet Delayed Release 2019 - 10/28/2020 Provider: Trang Enamorado BRANCH SERVICE LEADER Diagnosis: Gastro-esophageal re flux disease without esophagitis as directed: Take 1 tablet prior to breakfast daily QUEtiapine Fumarate 50 MG Oral Tablet 05/01/2020 - Provider: Trang JOVELP Diagnosis: Major depressive dis order, single episode, unspecified once a day - at bedtime AeroChamber Plus Miscellaneous 04/10/2020 Provider: Aster Santana NP Diagnosis: Dyspnea, unspecified use with inhaler Ventolin HFA 108 (90 Base) MCG/ACT Inhalation Aerosol Soluti on 04/10/2020 Provider: Aster Santana NP Diagnosis: Dyspnea, unspecified 2 puffs every 4-6 hours as needed Cyclobenzaprine HCl 10 MG Oral Tablet 04/04/2020 Pr ovider: Diagnosis: 1 tablet po tid prn, per discharge medication list dated Rqpakrwk-Xsaeswkdz-Bgsnnupknar 200-200-20 MG/5ML Oral Suspen jose miguel 04/04/2020 Provider: Diagnosis: 30ml four times a day before means and a t bedtime, per hospital discharge medication list dated 04/04/2020 Acetaminophen 325 MG Oral Tablet 04/04/2020 Provide r: Diagnosis: 2 tablets po every 6 hours prn, per discharge medicati on list dated 04/04/2020 Senna 8.6 MG Oral Tablet 04/04/2020 Provider: Diagnosis: 2 tablets at bedtime as needed, per discharge medicati on list dated 04/04/2020 Escitalopram Oxalate 10 MG Oral Tablet 03/12/2020 P rovider: Az Marie DO Diagnosis: Generalized anxiety disorder increased to 1.5 daily Past Medications on file hydrOXYzine HCl 50 MG Oral Tablet 06/20/2020 - 06/26/2020 Pr ovider: Diagnosis: Anxiety disorder, un specified 1 tablet PO Q6h PRN for anxiety or sleep Fluconazole 150 MG Oral Tablet 05/24/2020 - 06/26/2020 Provi domonique: Aster Santana NP Diagnosis: 1 tab once metroNIDAZOLE 500 MG Oral Tablet 05/24/2020 - 06/26/2020 Pro vider: Aster Santana NP Diagnosis: twice a day RID Complete Lice Elimination Combination Kit 05/18/2020 - 0 06/26/2020 Provider: Aster Santana NP Diagnosis: Pediculosis due to P ediculus humanus capitis as directed Clotrimazole 3 2% Vaginal Cream 05/14/2020 - 05/18/2020 Prov ider: Aster Santana NP Diagnosis: as directed- apply 1 applicator vaginally at night for 3 nig hts. Pantoprazole Sodium 40 MG Oral Tablet Delayed Release 2019 - 05/01/2020 Provider: Trang JOVELP Diagnosis: Gastro-esophageal re flux disease without esophagitis as directed: Take 1 tablet prior to breakfast daily hydrOXYzine HCl 50 MG Oral Tablet 04/04/2020 - 06/26/2020 Pr ovider: Diagnosis: 1 tablet by mouth every 6 hours as neede d for anxiety or sleep. Per discharge medication list dated 04/04/2020 Pantoprazole Sodium 40 MG Oral Tablet Delayed Release 2019 - 05/01/2020 Provider: Az Marie DO Diagnosis: Gastro-esophageal re flux disease without esophagitis as directed: Take 1 tablet prior to breakfast daily Pantoprazole Sodium 40 MG OR TBEC 03/27/2020 - 05/18/2020 Pr ovider: Diagnosis: Gastro-esophageal re flux disease without esophagitis as directed: Take 1 tablet prior to breakfast daily QUEtiapine Fumarate 50 MG Oral Tablet 03/12/2020 - 0 Provider: Az Marie DO Diagnosis: Major depressive dis order, single episode, unspecified once a day - at bedtime QUEtiapine Fumarate 50 MG Oral Tablet 02/16/2020 - 0 Provider: Diagnosis: Pantoprazole Sodium 40 MG Oral Tablet Delayed Release 2019 - 03/27/2020 Provider: Diagnosis: Escitalopram Oxalate 10 MG Oral Tablet 12/12/2019 - 03/12/20 20 Provider: Az Marie DO Diagnosis: Generalized anxiety disorder once a day Doxycycline Hyclate 100 MG Oral Tablet 06/27/2019 - 08/18/19 20 Provider: Anay Rincon NP Diagnosis: twice a day Escitalopram Oxalate 10 MG Oral Tablet 06/23/2019 - 12/12/19 20 Provider: Az Marie DO Diagnosis: Generalized anxiety disorder 1/2 daily 7 days then full daily after Ondansetron 4 MG Oral Tablet Disintegrating 05/02/2019 - 10/2019 Provider: Diagnosis: use as directed- ER Sulfamethoxazole-Trimethoprim 400-80 MG Oral Tablet 04/25/20 - 05/09/2019 Provider: Diagnosis: ER Clindamycin HCl 150 MG Oral Capsule 04/18/2019 - 05/02/2019 Provider: Dolores Red DDS Diagnosis: 1 every 6 hours LORazepam 1 MG Oral Tablet 03/15/2019 - 05/02/2019 Provider: Az Marie DO Diagnosis: Anxiety disorder due to known physiological condition 1 tab 90 min prior to procedure and redose 30 min prior PRN mdd 2 Misc. Devices Miscellaneous 10/25/2018 - 05/02/2019 Provider : Tori Short MD Diagnosis: Other specified aki enital deformities of feet 1 pair extra depth footwear with a right and left lateral uttress, Dx Q66.89, Dispence one pair Misc. Devices Miscellaneous 02/24/2018 - 04/28/2018 Provider : Tori Short MD Diagnosis: Other specified aki enital deformities of feet One pair extra depth shoes, with right and left lateral butr ess DX Q66.89 Medical Compression Stockings Miscellaneous 02/12/2018 - Provider: Az Marie DO Diagnosis: Morbid (severe) obes ity due to excess calories as directed 15-20MHG measure size Medical Compression Stockings MISC 02/12/2018 - 04/28/2018 Ester damiander: Diagnosis: Morbid (severe) obes ity due to excess calories as directed 15-20MHG measure size Bactroban 2% External Cream 01/08/2018 - 04/28/2018 Provider : Ana Boswell DO Diagnosis: Rash and other nonsp ecific skin eruption as directed; apply topically to rash on trunk twice daily fo r 10 days Misc. Devices Miscellaneous 12/24/2017 - 12/24/2017 Provider : Tori Short MD Diagnosis: Other specified aki enital deformities of feet as directed Misc. Devices Miscellaneous 12/24/2017 - 01/08/2018 Provider : Tori Short MD Diagnosis: Other specified aki enital deformities of feet please dispense 1 pair extra depth shoes with right and left buttress Dx Code Q66.89 Medical Compression Socks Miscellaneous 08/26/2017 - 018 Provider: Az Marie DO Diagnosis: Morbid (severe) obes ity due to excess calories as directed 15-20 MHG Measure size Apri 0.15-30MG-MCG Oral Tablet 08/13/2017 - 04/28/2018 Provi domonique: Tori Short MD Diagnosis: Dysmenorrhea, unspec ified as directed according to packet instruction: one daily Medical Compression Socks Miscellaneous 08/11/2017 - 018 Provider: Katie Wild Diagnosis: Morbid (severe) obes ity due to excess calories as directed 15-20 MHG Measure size Ferrous Gluconate 324 (37.5 Fe)MG Oral Tablet 03/11/2017 - 0 08/13/2017 Provider: Tori Short MD Diagnosis: Iron deficiency anem ia, unspecified once a day Apri 0.15-30MG-MCG Oral Tablet 03/11/2017 - 08/13/2017 Provi domonique: Tori Short MD Diagnosis: Dysmenorrhea, unspec ified as directed according to packet instruction: one daily Misc. Devices Miscellaneous 10/23/2016 - 01/08/2018 Provider : Tori Short MD Diagnosis: use ad directed Xtra Depth Bilat ortho Insets DX: Q66.89 Misc. Devices Miscellaneous 10/23/2016 - 10/22/2016 Provider : Tori Short MD Diagnosis: use ad directed Apri 0.15-30MG-MCG Oral Tablet 10/22/2016 - 03/11/2017 Provi domonique: Tori Short MD Diagnosis: Dysmenorrhea, unspec ified as directed according to packet instruction: one daily Zithromax Z-Bry 250 MG Tablet 09/12/2014 - 10/02/2014 Provid er: Aster SHANE Diagnosis: Acute Bronchitis 2 tabs po day one, 1tab po daily days 2- 5 Bactrim DS 800-160 MG OR TABS 09/19/2013 - 10/02/2014 Provid er: Yen Garland RESIDENTIAL PROPERTY CONSULTANT Diagnosis: Cellulitis and Absce ss of Hand Except Fingers and Thumb Take one tablet po bid x 10 days. Keflex 500 MG OR CAPS 09/16/2013 - 09/19/2013 Provider: Yen Garland RESIDENTIAL PROPERTY CONSULTANT Diagnosis: Cellulitis and Absce ss of Hand Except Fingers and Thumb Take one capsule po bid x 10 days. Macrobid 100 MG OR CAPS 04/29/2013 - 09/12/2013 Provider: Yen Garland NP Diagnosis: Urinary Tract Infect ion Site Not Specified Take one capsule po bid x 14 days. Bactrim DS 800-160 MG OR TABS 04/15/2013 - 04/29/2013 Provid er: Yen Garland RESIDENTIAL PROPERTY CONSULTANT Diagnosis: Urinary Tract Infect ion Site Not Specified Bactrim DS 800-160 MG OR TABS 10/20/2012 - 03/17/2013 Provid er: Yen Garland RESIDENTIAL PROPERTY CONSULTANT Diagnosis: Urinary Tract Infect ion Site Not Specified Take one tablet po bid x 2 weeks. Bactrim DS 800-160 MG OR TABS 10/07/2012 - 10/26/2012 Provid er: Yen Garland RESIDENTIAL PROPERTY CONSULTANT Diagnosis: Urinary Tract Infect ion Site Not Specified Take 1 tab po bid x 3 days. Ibuprofen 200 MG OR TABS 07/19/2010 - 10/07/2012 Provider: Yen Garland NP Diagnosis: LaMICtal 25 MG OR CHEW 06/24/2010 - 09/12/2014 Provider: Diagnosis: Acetaminophen 500 MG OR CAPS 10/24/2009 - 10/07/2012 Provide r: Yen Garland RESIDENTIAL PROPERTY CONSULTANT Diagnosis: Acetaminophen 500 MG OR CAPS 10/23/2009 - 10/07/2012 Provide r: Yen Garland RESIDENTIAL PROPERTY CONSULTANT Diagnosis: Acetaminophen 500 MG OR TABS 10/15/2009 - 10/07/2012 Provide r: Yen Garland RESIDENTIAL PROPERTY CONSULTANT Diagnosis: Headache Ibuprofen 200 MG OR TABS 07/05/2009 - 10/07/2012 Provider: Yen Garland NP Diagnosis: Impacted Cerumen lamoTRIgine 150 MG OR TABS 02/13/2009 - 10/02/2014 Provider: Diagnosis: Misc. Devices MISC 02/13/2009 - 10/07/2012 Provider: Aster Frausto NP Diagnosis: NO DAIRY PRODUCTS TO BE GIVEN AT SCHOOL. PT IS LACTOSE INTOL ERANT. Briefs Medium MISC 01/13/2008 - 10/07/2012 Provider: Tori Short MD Diagnosis: Bactrim 400-80 MG OR TABS 01/10/2008 - 10/07/2012 Provider: Aster SHANE Diagnosis: Briefs Medium MISC 06/14/2007 - 01/13/2008 Provider: Tori Short MD Diagnosis: Medications Administered Includes: Administered Medications in patient's chart Medications Administered Diagnosis Date Provi domoniuqe Ondansetron 4 MG OR TBDP 06/02/2019 Patricia mccormick NP given S.L. Ibuprofen 200 MG OR TABS 05/20/2011 Yen pagan NP Ondansetron 4 MG OR TBDP 05/09/2019 Az stephenson DO Ibuprofen 200 MG OR TABS 04/29/2011 Yen pagan RESIDENTIAL PROPERTY CONSULTANT Acetaminophen 500 MG OR CAPS 03/12/2011 Yen Garland RESIDENTIAL PROPERTY CONSULTANT Acetaminophen 500 MG OR CAPS 03/10/2011 Yen Garland RESIDENTIAL PROPERTY CONSULTANT Ibuprofen 200 MG OR CAPS Headache 02/20/2011 Yen Garland RESIDENTIAL PROPERTY CONSULTANT Ibuprofen 200 MG OR CAPS 07/16/2011 Yen pagan RESIDENTIAL PROPERTY CONSULTANT Vital Signs Includes: Vital Signs from 07/20/2019 through 07/20/2020 Vital Name 07/20/2020 12:54P 07/18/2020 02:05P 06/26/2020 01:47P 05/22/2020 01:11P 05/18/2020 08:35A Pain Level 3 0 3 0 3 Blood Pressure Sitting L 122/60 122/76 102/80 134/80 BP Cuff Size Large Large Large Large Pulse Rate-Sitting (bpm) 100 96 74 93 Pulse Rhythm Regular Regular Regular Respiration Rate (breaths/min) 18 20 20 17 Temp-Tympanic (F) 97.1 97.6 98.9 95.6 Weight (lb) 261.2 251.8 247 250.8 Oxygen Saturation (%) 99 98 98 97 Flow Rate (l/min) (None (Room Air)) (None (Ro om Air)) (None (Room Air)) FiO2 (%) Note: no vitals taking by pt at this time Vital Name 05/01/2020 12:49P 04/10/2020 05:38P 04/10/2020 05:09P 03/12/2020 08:16A 03/05/2020 12:26P Pain Level 0 3 0 0 Blood Pressure Sitting L 120/78 138/84 140/104 118/66 125/87 BP Cuff Size Large Large Large Large Pulse Rate-Sitting (bpm) 70 90 95 96 Pulse Rhythm Regular Regular Regular Respiration Rate (breaths/min) 16 20 18 16 Temp-Tympanic (F) 100 98.5 Weight (lb) 250 252 250 Oxygen Saturation (%) 98 99 98 98 Flow Rate (l/min) (None (Room Air)) (None (Ro om Air)) (None (Room Air)) FiO2 (%) 21 Height (in) 61 Body Mass Index (kg/m2) 47.2 Body Surface Area (m2) 2.08 Temp-Temporal 97.2 97.9 Vital Name 02/21/2020 04:28P 02/21/2020 04:27P 02/21/2020 04:06P 02/03/2020 01:33P 12/12/2019 03:16P Pain Level 0 3 0 Blood Pressure Sitting L 116/70 122/80 BP Cuff Size Large Large Pulse Rate-Sitting (bpm) 125 117 120 133 Respiration Rate (breaths/min) 16 20 Temp-Tympanic (F) 100.6 98.6 Oxygen Saturation (%) 97 98 98 97 Flow Rate (l/min) (None (Room Air)) (None (Room Air)) (None (Sarahi m Air)) (None (Room Air)) FiO2 (%) 21 21 21 21 Note: Lap 1 Resting Vital Name 12/02/2019 09:36A 11/21/2019 07:08A 08/23/2019 11:58A 08/23/2019 11:57A 08/23/2019 11:06A Pain Level 0 0 Blood Pressure Sitting L 122/60 127/85 BP Cuff Size Large Large Large Pulse Rate-Sitting (bpm) 112 101 113 113 84 Respiration Rate (breaths/min) 18 20 Temp-Tympanic (F) 99.9 98 Oxygen Saturation (%) 96 98 97 94 Flow Rate (l/min) (None (Room Air)) (None (Room Air)) ( None (Room Air)) FiO2 (%) 21 21 Blood Pressure Standing L 120/77 Blood Pressure Supine L 130/84 Pulse Rate-Standing (bpm) 101 91 Pulse Rate-Supine (bpm) 99 8 5 Blood Pressure Sitting R 135/77 Blood Pressure Standing R 128/59 Blood Pressure Supine R 1 34/79 Note: 1 min post walking 02 walking o2 sta rt orthostatic BP Vital Name 08/23/2019 10:51A 08/18/2019 09:19A 08/18/2019 08:57A 08/18/2019 08:27A Pain Level 10 10 Blood Pressure Sitting L 116/76 BP Cuff Size Large Large Large Large Pulse Rate-Sitting (bpm) 83 84 Pulse Rhythm Regular Regular Respiration Rate (breaths/min) 16 18 Temp-Tympanic (F) 99 Oxygen Saturation (%) 98 98 Flow Rate (l/min) (None (Room Air)) FiO2 (%) 21 Blood Pressure Sitting R 140/88 124/86 140/82 Blood Pressure Standing R 142/86 Blood Pressure Supine R 120/80 Pulse Rhythm Irregular Note: BG-92 supine at 9:10 am pt not c/o dizziness pupils smaller in size sitiing at 9/15am pupils dilated larger in size pt c/o dizzinessstanding at 920 am. pupils still dilated and pt swaying and C/O dizziness Results Includes: Results from 07/20/2019 through 07/20/2020 FULL THROAT [facility] Ordered by Nicolasa Pablo NP on 07/18/[address] [place] [address], [address] Collected: 07/18/2020 Reported: 07/20/2020 07:54 tel : See Note Chris None Note: Run: 07/20/20 0755 INTERFACED REPORT Name: Diane Schuler Age/Sex: 25/F Location: [facility] Acct: [id number] Unit: [id number] Status: REG REF Room/Bed: Re07/18/20 Disch: Att Dr: Nicolasa Pablo NP Specimen #: [id number] Ordered : 07/18/2009/02/1756 Collected : 07/18/2009/02/1499 By: OFFICE Received: 07/18/2009/02/1756 By: GREG Source: THROAT Specimen Description: Procedure Result -- FULL THROAT CULT Final USUAL PALLAVI AFTER 18 HOURS USUAL PALLAVI AFTER 42 HOURS FULL THROAT CULT Preliminary (Corrected) USUAL PALLAVI AFTER 18 HOURS END OF REPORT Reviewed by Nicolasa Pablo NP on 10/2020; All test results are final unless otherwise noted. Reported Physicians [facility] Ordered by Nicolasa Pablo NP on 07/18/[address], [address] Collected: 07/18/2020 Reported: 07/20/2020 07:55 tel : Reported Physicians See Note None Note: Reported Physicians:Ordering: Nicolasa Stephens LAttending: Nicolasa Pablo Reviewed by Nicolasa Pablo NP on 10/2020; All test results are final unless otherwise noted. VAGINOSIS (BV) TEST [facility] Ordered by Aura TOMPKINS on 06/26/[address] [place] [address], [address] Collected: 06/26/2020 Reported: 06/26/2020 22:23 tel :[phone] KIRIT BY DNA PROBE NEGATIVE (NEGATIVE) None Note: Responsible Observer: KIRIT BY D NA KIRIT BY DNA PROBE 500.3050 (A) GARDNERELLA BY DNA PROBE NEGATIVE (NEGATIVE) None Note: Responsible Observer: GARDNERELLA GARDNERELLA BY DNA PROBE 500.3075 (A) TRICHOMONAS BY DNA PROBE NEGATIVE (NEGATIVE) None Note: TESTING PERFORMED BY NUCLEIC ACID HYBRIDIZATIONResponsible Observer: TRICHOMONAS TRICHOMONAS BY DNA PROBE 500.3100 (A) Reviewed by Aura TOMPKINS on 06/27; All test results are final unless otherwise noted. Reported Physicians [facility] Ordered by Aura TOMPKINS on 06/26/[address], [address] Collected: 06/26/2020 Reported: 06/26/2020 22:23 tel :[phone] Reported Physicians See Note None Note: Reported Physicians:Ordering: Aura StylesAttending: Aura Roa Reviewed by Aura JOVELP on 06/27; All test results are final unless otherwise noted. VAGINOSIS (BV) TEST [facility] Ordered by Aster Santana NP on 05/22/[address] [place] [address], [address] Collected: 05/22/2020 Reported: 05/22/2020 21:25 tel :[phone] KIRIT BY DNA PROBE POSITIVE (NEGATIVE) A (Abnormal) Note: Responsible Observer: KIRIT BY D NA KIRIT BY DNA PROBE 500.3050 (A) GARDNERELLA BY DNA PROBE POSITIVE (NEGATIVE) A (Abnormal) Note: Responsible Observer: GARDNERELLA GARDNERELLA BY DNA PROBE 500.3075 (A) TRICHOMONAS BY DNA PROBE NEGATIVE (NEGATIVE) None Note: TESTING PERFORMED BY NUCLEIC ACID HYBRIDIZATIONResponsible Observer: TRICHOMONAS TRICHOMONAS BY DNA PROBE 500.3100 (A) Reviewed by Aster Santana NP on 05/24/20 20; All test results are final unless otherwise noted. Reported Physicians [facility] Ordered by Aster Santana NP on 05/22/[address] [place] [address], [address] Collected: 05/22/2020 Reported: 05/22/2020 21:26 tel :[phone] Reported Physicians See Note None Note: Reported Physicians:Ordering: Aster NevarezAttending: Aster Santana Reviewed by Aster Santana RESIDENTIAL PROPERTY CONSULTANT on 05/24/20 20; All test results are final unless otherwise noted. VAGINOSIS (BV) TEST [facility] Ordered by Trang TOMPKINS on 05/01/[address] [place] [address], [address] Collected: 05/01/2020 Reported: 05/02/2020 17:22 tel :[phone] KIRIT BY DNA PROBE NEGATIVE (NEGATIVE) None Note: Responsible Observer: KIRIT BY D NA KIRIT BY DNA PROBE 500.3050 (A) GARDNERELLA BY DNA PROBE NEGATIVE (NEGATIVE) None Note: Responsible Observer: GARDNERELLA GARDNERELLA BY DNA PROBE 500.3075 (A) TRICHOMONAS BY DNA PROBE NEGATIVE (NEGATIVE) None Note: TESTING PERFORMED BY NUCLEIC ACID HYBRIDIZATIONResponsible Observer: TRICHOMONAS TRICHOMONAS BY DNA PROBE 500.3100 (A) Reviewed by Trang TOMPKINS on 04/15; All test results are final unless otherwise noted. Reported Physicians [facility] Ordered by Trang TOMPKINS on 05/01/[address] [place] [address], [address] Collected: 05/01/2020 Reported: 05/02/2020 17:22 tel :[phone] Reported Physicians See Note None Note: Reported Physicians:Ordering: Trang FriedmanAttending: Trang Enamorado Reviewed by Trang TOMPKINS on 04/15; All test results are final unless otherwise noted. Thin Prep Image Guided [facility] Ordered by Trang TOMPKINS on 05/01/[address] [place] [address], [address] Collected: 05/01/2020 Reported: 05/13/2020 13:29 tel :[phone] See Note Chris None Note: Run: 05/13/20 1329 INTERFACED REPORT Name: Diane Schuler Age/Sex: 25/F Location: [facility] Acct: [id number] Unit: [id number] Status: REG REF Room/Bed: Re05/01/20 Disch: Att Dr: Trang Enamorado Spec Num: [id number] Recd: 05/02/20 Status: COBY Marilou Num: [id number] SpType: CYTOLOGY Sub Dr: Trang Enamorado Specimen SubmittedThin Prep Image Guided Z12.72 : Screening vaginal pap smear CERVICAL, LMP 04/10/2020, LR 05/01/2020 Specimen Adequacy Satisfactory for evaluation Endocervical/transformation zone component present. General Categorization Negative for Intraepithelial Lesion or Malignancy Descriptive Diagnosis Fungal Elements Present Consistent with Kirit SP. Predominance of Bacteria Co nsistent with a Shift in Vaginal Pallavi. Specimen Identification Verified. Reviewing Commercial Field Inspector PF HPV RESULTS Date Time Test Result Flag (u) Normal Range 05/01/20 1333 HPV16 Negative HPV16 Negative HPV18 Negative HPV18 Negative HPVOHR Negative Other HPV Negative OTHER HPV NEGATIVE: Specimen is negative for the DNA of any one of, or combination of, the following high risk HPV types: 31, 33, 35, 39, 45, 51, 52, 56, 58, 59, 66, 68. Run: 05/13/20 1329 INTERFACED REPORT Signed Landon Reyna MD 05/13/20 1329 END OF REPORT Reviewed by Aster Santana NP on 05/14/20; All test results are final unless otherwise noted. Reported Physicians [facility] Ordered by Trang Enamorado [facility] on 05/01/[address] [place] [address], [address] Collected: 05/01/2020 Reported: 05/13/2020 13:29 tel : Reported Physicians See Note None Note: Reported Physicians:Ordering: Devaughn Friedmanending: Trang Enamorado Reviewed by Aster Santana NP on 05/14/20; All test results are final unless otherwise noted. COVID 19 (RHEONIX) [facility] Ordered by Az Marie DO on 02/04/[address] [place] [address], [address] Collected: 02/04/2020 Reported: 02/04/2020 20:39 tel : Note: COVID Reason [place] Admission Priority COVID 19 (RHEONIX) NOT-DETECTED (NOTDETECTED) None Note: The itravel COVID-19 MDx Assay is an endpoint RT-PCR assay intended for the qualitative detection of nucleic acid from SARS-CoV-2 in nasopharyngeal swabs. COVID testing using the itravel analyzer was developed for the purpose of diagnostic testing during a declared public health emergency and has Emergency Use Authorization (EUA) from the FDA. The possibility of a false negative result should be considered if the patient's recent exposures or clinical presentation indicate that COVID-19 is likely, and diagnostic tests for other causes of illness (e.g., other respiratory illness) are negative. If COVID-19 is still suspected based on exposure history together with other clinical findings, re-testing should be considered by healthcare providers in consultation with public health authorities.Responsible Observer: COVID 19 (R) COVID 19 (RHEONIX) 550.3921 (A) Reviewed by Az Marie DO on ; All test results are final unless otherwise noted. Reported Physicians [facility] Ordered by Az Marie DO on 02/04/[address] [place] [address], [address] Collected: 02/04/2020 Reported: 02/04/2020 20:39 tel :[phone] Reported Physicians See Note None Note: Reported Physicians:Ordering: Az Duranending: Yaakov Almanzaritting: Cynthia Almanzaropy To: FABIAN DOWNS Reviewed by Az Marie DO on ; All test results are final unless otherwise noted. Glucose [facility] Ordered by Az Marie DO on 12/02/2019 Specimen Source: Whole blood Collected: 12/02/2019 Reported: 12/02/2019 10:02 Glucose Level 103 N (Normal) Reviewed on 12/02/2019; All test result s are final unless otherwise noted. Glucose [facility] Ordered by Az Marie DO on 12/02/2019 Specimen Source: Whole blood Collected: 12/02/2019 Reported: 12/02/2019 10:17 Glucose Level 109 N (Normal) Reviewed on 12/02/2019; All test result s are final unless otherwise noted. Glucose [facility] Ordered by Az Marie DO on 11/21/2019 Specimen Source: Whole blood Collected: 11/21/2019 Reported: 11/21/2019 07:48 Glucose Level 105 A (Abnormal) Reviewed on 11/21/2019; All test result s are final unless otherwise noted. CBC w/ Auto Diff [facility] Ordered by Az Marie DO on 08/23/[address] [place] [address], [address] Collected: 08/23/2019 Reported: 08/23/2019 18:24 tel :[phone] BASO # (AUTO) 0.06 3/uL (0.00-0.20) N (Normal) Note: Responsible Observer: BASO # (AUTO ) BASO # (AUTO) 100.1500 (A) BASO % (AUTO) 0.5 % (0.0-2.0) N (Normal) Note: Responsible Observer: BASO % (AUTO ) BASO % (AUTO) 100.1250 (A) EOS # (AUTO) 0.04 3/uL (0.00-1.10) N (Normal) Note: Responsible Observer: EOS # (AUTO) EOS # (AUTO) 100.1450 (A) EOS % (AUTO) 0.3 % (0.0-11.0) N (Normal) Note: Responsible Observer: EOS % (AUTO) EOS % (AUTO) 100.1200 (A) GRAN # (AUTO) 8.96 3/uL (1.50-6.50) H (High) Note: Responsible Observer: GRAN # (AUTO ) GRAN #(AUTO) 100.1325 (A) GRAN % (AUTO) 69.1 % (42.0-75.0) N (Normal) Note: Responsible Observer: GRAN % (AUTO ) GRAN % (AUTO) 100.1000 (A) HEMATOCRIT 42.2 % (35.0-46.0) N (Normal) Note: Responsible Observer: HCT HEMATOCR IT 100.0400 (A) HEMOGLOBIN 13.9 G/DL (11.5-15.6) N (Normal) Note: Responsible Observer: HGB HEMOGLOB IN 100.0300 (A) IG # (AUTO) 0.1 3/uL (<0.5) None Note: Responsible Observer: IG # (AUTO) IG # (AUTO) 100.1260 (A) IG % (AUTO) 0.5 % (1.00-5.00) None Note: Responsible Observer: IG % (AUTO) IG % (AUTO) 100.1255 (A) LYMPH # (AUTO) 3.2 k/uL (1.0-5.0) N (Normal) Note: Responsible Observer: LYMPH # (AUT O) LYMPH # (AUTO) 100.1350 (A) LYMPH % (AUTO) 24.6 % (20.0-51.0) N (Normal) Note: Responsible Observer: LYMPH % (AUT O) LYMPH % (AUTO) 100.1100 (A) MCH 29.1 PG (27.0-34.0) N (Normal) Note: Responsible Observer: MCH MCH 100 .0600 (A) MCHC 32.9 G/DL (32-36) N (Normal) Note: Responsible Observer: MCHC MCHC 1 00.0650 (A) MCV 88.5 FL (80.0-100.0) N (Normal) Note: Responsible Observer: MCV MCV 100 .0550 (A) MONO # (AUTO) 0.65 k/uL (0.20-1.50) N (Normal) Note: Responsible Observer: MONO # (AUTO ) MONO # (AUTO) 100.1400 (A) MONO % (AUTO) 5.0 % (2.0-15.0) N (Normal) Note: Responsible Observer: MONO % (AUTO ) MONO% (AUTO) 100.1150 (A) MPV 10.4 FL (8.7-13.2) N (Normal) Note: Responsible Observer: MPV MPV 100 .0950 (A) PLATELET COUNT 363 3/uL (130-400) N (Normal) Note: Responsible Observer: PLT PLATELET COUNT 100.0850 (A) RED BLOOD COUNT 4.77 6/uL (3.90-5.20) N (Normal) Note: Responsible Observer: RBC RED BLOO D COUNT 100.0250 (A) RDW 12.5 % (11.5-14.5) N (Normal) Note: Responsible Observer: RDW RDW 100 .0700 (A) WHITE BLOOD COUNT 12.96 3/uL (4.00-10.50) H (High) Note: Responsible Observer: WBC WHITE BL OOD COUNT 100.0150 (A) Reviewed by Az Marie DO on ; All test results are final unless otherwise noted. HCG QUALITATIVE SPECIMEN [facility] Ordered by Az Marie DO on 08/23/[address] [place] [address], [address] Collected: 08/23/2019 Reported: 08/23/2019 18:36 tel : HCG QUALITATIVE SPECIMEN SERUM None Note: Responsible Observer: HCG QL SPECI MEN HCG QUALITATIVE 300.11786 (A) Reviewed by Az Marie DO on ; All test results are final unless otherwise noted. *HCG QUALITATIVE SERUM [facility] Ordered by Az Marie DO on 08/23/[address], [address] Collected: 08/23/2019 Reported: 08/23/2019 18:36 tel :[phone] HCG RESULT,S NEGATIVE None Note: Reference range is Negative "Extreme" early may have low levels of HCG present. If is suspected, repeat testing with a new specimen in 48-72 hoursResponsible Observer: HCG RESULT,S HCG RESULT,S 300.6001 (A) Reviewed by Az Marie DO on ; All test results are final unless otherwise noted. COMPREHENSIVE METABOLIC PANEL [facility] Ordered by Az Marie DO on 08/23/[address], [address] Collected: 08/23/2019 Reported: 08/28/2019 11:50 tel :[phone] Note: Has Patient Fasted For The Past 12 Hours? N Has Patient Fasted For The Past 12 Hours? Y ALB/GLOB RATIO 2.3 G/DL (1.0-2.7) N (Normal) Note: Responsible Observer: A/G RATIO AL B/GLOB RATIO 300.4100 (A) ALBUMIN 5.0 G/DL (3.0-5.1) N (Normal) Note: Responsible Observer: ALB ALBUMIN 300.3900 (A) ALKALINE PHOSPHATASE 124 U/L (40-140) N (Normal) Note: Responsible Observer: ALK PHOS ALK STEPHANI PHOSPHATASE 300.3110 (A) ALT 51 U/L (5-48) H (High) Note: Responsible Observer: ALT/SGPT ALT 300.3100 (A) AST 28 U/L (5-40) N (Normal) Note: Responsible Observer: AST/SGOT AST 300.3050 (A) BUN/CREAT RATIO 35 (8-36) N (Normal) Note: Responsible Observer: BUN/CREAT RA OPHELIA BUN/CREAT RATIO 300.0450 (A) BILIRUBIN,TOTAL 0.5 MG/DL (0.1-1.3) N (Normal) Note: Responsible Observer: TOTAL BILI T OTAL BILIRUBIN 300.2700 (A) BLOOD UREA NITRO 14 MG/DL (7-25) N (Normal) Note: Responsible Observer: BUN BLOOD UR EA NITROGEN 300.0350 (A) CA 9.5 MG/DL (8.7-10.5) N (Normal) Note: Responsible Observer: CA CALCIUM 300.2200 (A) CHLORIDE 104 MEQ/L (94-110) N (Normal) Note: Responsible Observer: CL CHLORIDE 300.0200 (A) CARBON DIOXIDE 26 MEQ/L (22-33) N (Normal) Note: Responsible Observer: CO2 CARBON D IOXIDE 300.0250 (A) CREATININE 0.4 MG/DL (0.6-1.4) L (Low) Note: Responsible Observer: CREAT CREATI NINE 300.0400 (A) ANION GAP 15 (5-16) N (Normal) Note: Responsible Observer: ANION GAP AN ION GAP 300.0300 (A) GFR > 90.0 ML/MIN None Note: Stage G1 - Normal or high kidney function The GFR is an estimate of the Glomerular Filtration Rate. It is an aid to assess a patient's renal function. It is not a conclusive diagnosis of kidney disease. GFR normal is >=90 The MDRD GFR calculation is considered valid between the ages of 18 and 75 years only.Responsible Observer: GFR GFR 300.0410 (A) GLOBULIN 2.2 G/DL (1.5-3.5) N (Normal) Note: Responsible Observer: GLOB GLOBULI N 300.4050 (A) GLUCOSE 83 MG/DL (70-100) N (Normal) Note: Responsible Observer: GLU GLUCOSE 300.0500 (A) POTASSIUM 4.8 MEQ/L (3.5-5.3) N (Normal) Note: Responsible Observer: K POTASSIUM 300.0150 (A) SODIUM 140 MEQ/L (135-145) N (Normal) Note: Responsible Observer: NA SODIUM 3 00.0100 (A) TOTAL PROTEIN 7.2 G/DL (5.9-8.3) N (Normal) Note: Responsible Observer: TP TOTAL PRO TEIN 300.3750 (A) Reviewed by Az Marie DO on ; All test results are final unless otherwise noted. GLYCOSYLATED [address] [place] [address] Ordered by Az Marie DO on 08/23/[address] [place] [address], [address] Collected: 08/23/2019 Reported: 08/28/2019 11:50 tel :[phone] Note: Has Patient Fasted For The Past 12 Hours? N Has Patient Fasted For The Past 12 Hours? Y GLYCOSYLATED HGBA1C 5.1 % (4.1-6.5) N (Normal) Note: Responsible Observer: HGB A1C GLYC OSYLATED HGBA1C 300.0800 (A) Reviewed by Az Marie DO on ; All test results are final unless otherwise noted. LIPID PANEL [facility] Ordered by Az Marie DO on 08/23/[address] [place] [address], [address] Collected: 08/23/2019 Reported: 08/28/2019 11:50 tel :[phone] Note: Has Patient Fasted For The Past 12 Hours? N Has Patient Fasted For The Past 12 Hours? Y CHOL/HDL RATIO 4.3 (0-4.3) N (Normal) Note: Responsible Observer: CHOL/HDL RAT IO CHOL/HDL RATIO 300.4700 (A) CHOLESTEROL 229 MG/DL (125-200) H (High) Note: Responsible Observer: CHOL CHOLEST CARMENCITA 300.4350 (A) HDL CHOLESTEROL 53 MG/DL (32-96) N (Normal) Note: Responsible Observer: HDL HDL CHOL ESTEROL 300.4600 (A) LDL CHOLESTEROL 155 MG/DL (50-130) H (High) Note: Responsible Observer: LDL LDL CHOL ESTEROL 300.4400 (A) TRIGLYCERIDES 107 MG/DL (45-150) N (Normal) Note: Responsible Observer: TRIG TRIGLYC ERIDES 300.4300 (A) Reviewed by Az Marie DO on ; All test results are final unless otherwise noted. TSH [facility] Ordered by Az Marie DO on 08/23/[address] [place] [address], [address] Collected: 08/23/2019 Reported: 08/28/2019 11:50 tel :[phone] Note: Has Patient Fasted For The Past 12 Hours? N Has Patient Fasted For The Past 12 Hours? Y TSH 2.296 uIU/ML (0.470-4.200) N (Normal) Note: Patients should not be tested for 72 hours post fluorescein dye angiography. A false depression of result may occur.Responsible Observer: TSH TSH 300.5500 (A) Reviewed by Az Marie DO on ; All test results are final unless otherwise noted. Reported Physicians [facility] Ordered by Az Marie DO on 08/23/[address] [place] [address], [address] Collected: 08/23/2019 Reported: 08/28/2019 11:50 tel : Reported Physicians See Note None Note: Reported Physicians:Ordering: Az Duranending: Az Marie Reviewed by Az Marie DO on ; All test results are final unless otherwise noted. Strep Test [facility]House [facility] Ordered by Trang Enamorado [facility] on 08/18/2019 Collected: 08/18/2019 Reported: 08/18/2019 09:18 Throat Swab negative N (Normal) Reviewed on 08/18/2019; All test result s are final unless otherwise noted. History of Present Illness History of Present Illness not supported for this document typeNo History of Present Illness Recorded Social History Description Last Updated Alcohol use 09/08/2019 Denies alcohol consumption 10/2020 No secondhand cigarette smoke exposure 07/20/2020 No violent traumatic event 07/20/2020 Not avoiding thoughts, feelings, or disc ussions related to stressful experience from past 07/20/2020 Not using drugs 09/08/2019 07/20/2020 Smoking status 07/18/2020 : Never smoker 07/18/2020 Procedures and Surgical History Includes: Procedures from 07/20/2019 through 07/20/2020 Procedures Code Diagnosis Performing Provider Service Location Service Date Immunization Administration (includes Percutaneous, [place] [address]509 Encounter for immunization Az Marie [facility] 03/12/2020 Influenza virus vaccine, preservative free, 6 months and up [address] Encounter for immunization Az Marie [facility] 03/12/2020 Removal of impacted cerumen using irrigation 51841 Imp acted cerumen, bilateral Beth Bharat Frausto RESIDENTIAL PROPERTY CONSULTANT [facility] 03/05/2020 Ekg With Interpretation and Report 94391 Chest pain, u nspecified Patricia A Chemo [facility] 02/21/2020 Ekg With Interpretation and Report 92495 Chest pain, u nspecified Az Maloney [facility] 02/03/2020 Glucose, Blood by Glucose [place] [address] Dizziness and giddiness Az Maloney [facility] 12/02/2019 Ekg With Interpretation and Report 99705 Syncope and c ollapse Az [facility] 11/21/2019 Noninvasive Ear or Pulse Oximetry for Ox ygen Saturation; Mul (distinct separate procedure) 65670 Dizziness and giddiness Az [facility] 08/23/2019 Ekg With Interpretation and Report 19351 [facility] Urinalysis, by Dip Stick or Tablet [place]agent [place] [address] Unspecified abdominal pain Trang Panda Enamorado [facility] 08/18/2019 Rapid Strep Test (QW) 10811 Acute ph[facility], [facility] 08/18/2019 Surgical History Last Updated History of midfoot capsulotomy and poste rior release with tendon lengthening bette, Dr Blackwell, childhood, for club foot bilat 07/20/2020 Medical History Includes: Medical History in patient's chart Description Last Updated Past medical history -Please see Problem List for Act [place] Chronic Problems 07/20/2020 Family History Includes: Family History in patient's chart Description Last Updated Family history of diabetes mellitus father Family history of heart disease father 07/20/2020 Family history of hypertension father 07/20/2020 Family history of not using drugs - family history Maternal history of depression 07/20/2020 Maternal history of not using drugs 07/20/2020 No family history of depression - family history 10/2020 No paternal history of depression 07/20/2020 Paternal history of not using drugs 07/20/2020 Review of Systems Review of Systems not supported for this document typeNo Review of Systems Recorded Mental Status Mental Status not supported for this document type Description No anxiety Not avoiding thoughts, feelings, or disc ussions related to stressful experience from past Functional Status Functional Status not supported for this document typeNo Functional Status Recorded Physical Exam Physical Exam not supported for this document typeNo Physical Exam Recorded Immunizations Includes: Immunizations in patient's chart Vaccine Dose # Date Site Reaction(s) Status Source HIb ([facility] PedvaxHIB) 1 1994 Complete (R eported) Patient HIb ([facility] PedvaxHIB) 2 1994 Complete (R eported) Patient HIb (PRP-OMP PedvaxHIB) 3 1994 Complete (R eported) Patient HIb (PRP-OMP PedvaxHIB) 4 06/04/1995 Complete (R eported) Patient Boostrix 1 02/13/2009 Upper Right Arm Complete (Administer ed) [facility] DTaP 1 Complete (Reported) Patient DTaP 2 Complete (Reported) Patient DTaP 3 Complete (Reported) Patient DTaP 4 Complete (Reported) Patient DTaP 5 02/15/1999 Complete (Reported) Patient DTP 1 1994 Complete (Reported) Patient DTP 2 1994 Complete (Reported) Patient DTP 3 1994 Complete (Reported) Patient DTP 4 06/04/1995 Complete (Reported) Patient Gardasil 2 08/17/2006 Complete (Reported) Patient Gardasil 1 10/28/2006 Complete (Reported) Patient Gardasil 3 02/13/2009 Left Arm Complete (Administered) [facility] H1N1 -Inactive 1 05/01/2009 Upper Left Arm Complete (Administered) [facility] 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[employer] Hep B 1 1994 Complete (Reported) Patient Hep B 2 1994 Complete (Reported) Patient Hep B 3 1994 Complete (Reported) Patient Hep B 4 01/30/2005 Complete (Reported) Patient Influenza 1 07/24/2009 Upper Right Arm Complete (Administe red) [facility] Influenza 2 06/25/2011 Upper Left Arm Complete (Administer ed) [facility] Influenza 3 08/16/2015 Right Arm Complete (Administered) [facility] Influenza 4 03/11/2017 Right Arm Complete (Administered) [facility] Influenza, seasonal, injectable 1 04/28/2018 Left Deltoid Complete (Administered) [facility] Influenza, seasonal, injectable 2 03/15/2019 Right Arm Complete (Administered) [facility] Influenza, seasonal, injectable 3 03/12/2020 Right Arm Complete (Administered) [facility] Meningococcal (MCV4) conjugate vaccine 1 08/13/2011 Upper Le ft Arm Complete (Administered) [facility] MMR 1 06/04/1995 Complete (Reported) Patient MMR 2 02/15/1999 Complete (Reported) Patient OPV 1 1994 Complete (Reported) Patient OPV 2 1994 Complete (Reported) Patient OPV 3 1994 Complete (Reported) Patient OPV 4 02/15/1999 Complete (Reported) Patient PPD TB TST 1 08/16/2015 Lower Right Arm Complete (Adminis tered) [facility] Prevnar 13 1 10/17/2015 Upper Left Arm Complete (Administe red) [facility] Td 1 08/17/2006 Complete (Reported) Patient Td 2 05/01/2020 Complete (Refused - Patient o bjection) [facility] Varicella 1 03/06/2005 Complete (Reported) Patient Allergies Includes: Active, inactive, and resolved Allergies Substance Type Reaction Onset Date - Time Resolved Date - Ti me Status Penicillins Allergy Skin Rashes, Hives 01/10/2008 - 12:00AM Active Encounters Includes: Encounters from 07/20/2019 through 07/20/2020 Encounter Provider Location Date Check-In Time Check-Out Time D iagnosis Acute Follow-up Telehealth Aster Santana NP [facility] 021 07/18/2020 10:10AM 1:01PM Pharyngitis Acute L1 Nicolasa Pablo [facility] 07/18/2020 1:52PM 2: 40PM Pharyngitis Acute Acute L1 Aura Roa [facility] 06/26/2020 1:39PM 2:1 9PM Vaginitis, Viral Syndrome Medication Order Aster Santana NP 05/24/2020 05/22/2020 9: 22AM 05/22/2020 11:59PM Acute Follow-up Well Aster Santana NP [facility] 05/22/2020 12:53 PM 1:54PM Vaginitis Acute L2 Aster Santana NP [facility] 05/18/2020 8:27AM 9:02AM Pediculosis Medication Order Aster Santana [employer] 05/14/2020 05/01/2020 7: 41AM 05/01/2020 11:59PM AHR Trang Enamorado [facility] 05/01/2020 12:09PM 1: 24PM Routine History and Physical, Depression, Lung Neoplasm Uncertain Behavior Chart Prep Trang Enamorado [facility] 04/24/2020 04/10/2020 8:48 AM 04/10/2020 11:59PM Acute L1 Aster Santana RESIDENTIAL PROPERTY CONSULTANT [facility] 04/10/2020 5:09PM 5:44PM Abdominal Pain, Difficulty Breathing (Dyspnea) Acute L3 Az Marie [facility] 03/12/2020 7:50AM 9:10AM Depression, Generalized Anxiety Disorder, Obesity Morbid Emergency Aster Nicholson Lisbet RESIDENTIAL PROPERTY CONSULTANT [facility] 03/05/2020 1 2:25PM 1:26PM Assessment of Dizziness, Cerumen Impacti on Emergency Az Marie 03/02/2020 02/21/2020 12 :00PM 02/21/2020 11:59PM Correspondence Radha Etienne EVP/[employer]OW[employer] EXECUTIVE DIRECTOR [facility] 0 02/21/2020 11:50AM 02/21/2020 11:59PM Emergency Patricia Mclain [facility] 02/21/2020 4:02PM 4:49PM Suicide Risk, Chest Pain, Intellectual Disabilities, Assessment of Dizziness, Assessment of Difficulty Breathing (Dyspnea) Referral Order Az Marie 02/13/2020 0 8:54AM 02/03/2020 11:59PM D Emergency Az Marie [facility] 02/03/2020 1:32PM 2:53PM Chest Pain, Depression, Lung Neoplasm Uncertain Behavior, Lactose Intolerance Telephonic Encounter Az Marie [facility] 020 12/02/2019 1:20PM 2:03PM Depression, Lung Neoplasm Un certain Behavior, Lactose Intolerance Telephonic Encounter Az Marie [facility] 020 12/02/2019 3:30PM 3:46PM Dizziness, Depression, Lung Neoplasm Uncertain Behavior, Lactose Intolerance Correspondence Az Marie 12/07/2019 0 8:08AM 12/02/2019 11:59PM Emergency Az Marie [facility] 12/02/2019 9:32AM 11:16AM Assessment of Dizziness Lab Order Az Marie 11/25/2019 11/21/2019 9: 18AM 11/21/2019 11:59PM Hospital Follow-up Az Marie [facility] 11/21/2019 7:05AM 8:15AM Dizziness, Depression, Lung Neoplasm Unc ertain Behavior, Lactose Intolerance, Vasovagal Syncope, Pneumonia Telehealth Azbrit Marie 09/08/2019 08/18/2019 10 :27AM 08/23/2019 11:59PM Dizziness, Depression, Lung Neoplasm Unc ertain Behavior, Lactose Intolerance Telehealth Azbrit Marie [facility] 09/08/2019 11:49AM 11:50AM Correspondence Azbrit Marie 09/05/2019 0 9:02AM 08/23/2019 11:59PM Chart Prep Azbrit Marie 09/02/2019 08/18/2019 4: 05PM 08/23/2019 11:59PM Correspondence Radha Etienne [facility] 0 08/18/2019 10:18AM 08/23/2019 11:59PM Medication Follow-up Azbrit Marie [facility] 020 08/18/2019 11:20AM 1:14PM Dizziness, Depression, Lacto se Intolerance, Lung Neoplasm Uncertain Behavior Hospital Follow-up Trang Enamorado [facility] 08/18/2019 7: 40AM 9:35AM Abdominal Pain, Dizziness, Pharyngitis Correspondence Azbrit Marie 08/16/2019 0 4:55PM 06/27/2019 11:59PM Insurance Includes: Active Insurance Policies Plan Name Member ID Group # Subscriber Relationship Effective Da alin 1 - [employer] Managed Medicaid [id number] Diane Crawford f 06/15/2017 - Unknown 2 - D [employer] Man[employer] Medicaid [id number] Diane savage Self Advance Directives Includes: Current Advance Directives Directive Pat Aware Third Constitution Party Effective Date Reviewed Status packet given Pt Bill of Rights, Priv Prac, Ad Dir Yes 01/25/2019 Current and Verified Note: Pt accepted AD packet Ebola Screening Performed Yes 04/04/2020 Current and Verified Note: Within the last month, have you traveled outside of the [place]? - NO Health Concerns Includes: Active Health Concerns Anemia Onset 10/27/2016 Club Foot Onset 10/02/2014 Dysmenorrhea Onset 10/20/2016 Impaired Fasting Glucose Onset 12/29/2014 Intellectual Disabilities Onset 09/12/2013 Obesity Morbid Onset 10/17/2015 Visit For: Pre-employment Physical Onset 08/16/2015 Visit For: Screening Exam Depression Onset 10/20/2016 Visit For: Screening Exam For Human Immu nodeficiency Virus Onset 10/20/2016 Visit For: Screening Exam For Malignant Neoplasm Cervix Onset 10/17/2015 Visit For: Screening Exam Lipoid Disorde rs Onset 10/20/2016 Goals Includes: Active Goals Continue with [facility] Added 09/12/2013 by Provider Health Concern: Intellectual Disabilities Avoid worsening. Added 10/02/2014 by Provider Health Concern: Club Foot Avoid diabetesmoniter. Added 12/29/2014 by Provider Health Concern: Impaired Fasting Glucose Pre-employment physical Added 08/16/2015 by Provider Health Concern: Visit For: Pre-employment Physical Your goal is to lose 5-10% of your curre nt weight and to keep it off. Added 10/17/2015 by Provider Health Concern: Obesity Morbid Screening for cervical cancer. Added 10/17/2015 by Provider Health Concern: Visit For: Screening Exam For Malignant Neoplasm Cervix prevention of cardiovascular disease. Added 10/20/2016 by Provider Health Concern: Visit For: Screening Exam Lipoid Disorders Screening for symptoms of depression. Added 10/20/2016 by Provider Health Concern: Visit For: Screening Exam Depression Screening for HIV (AIDS). Screening is r ecommended by the NIH to be done at least once during the ages of 13-64. Added 10/20/2016 by Provider Health Concern: Visit For: Screening Exam For Human Immunodeficiency Virus decrease the heavy periods.Decrease the discomfort. Added 10/20/2016 by Provider Health Concern: Dysmenorrhea moniter Added 10/27/2016 by Provider Health Concern: Anemia Interventions Includes: Interventions for active Goals Follow up with your medicaid managed car e case repairer, Evelia.You have stopped going to [employer].Guardianship has been discussed with grandmother, I have suggested that you talk to Evelia to see whether you need to do anything since Diane is over 21. Added 09/12/2013 Goal: Continue with [facility] Follow up with Dr Blackwell as needed.Avoid f urther weight gain, and try to lose weight.A physical therapy order has been given to help with stretching and range of motion. This is ongoing. Added 10/02/2014 Goal: Avoid worsening. Avoid the "whites: white potato, white r ice, white pasta, white bread and use the whole grain vareties, sweet potato. Avoid concentrated sugars.Exercise at least 30 minutes a day if tolerated. This helps to keep the blood sugar under control.Try to get to your ideal weight.Your most recent fasting blood sugar was 110A1c (3 month average of blood sugar) was 5.4 . An A1c of 6.5 or more on more than one occasion is one way to diagnose diabetes. We are due to check this again.Exercise at least 30 minutes a day if tolerated. This helps to keep the blood sugar under control.Blood work will be ordered to further evaluate this. Added 12/29/2014 Goal: Avoid diabetesmoniter. Paperwork will be sent to the [facility] e place.PPD was done today and needs to be read within 48-72 hours. Added 08/16/2015 Goal: Pre-employment physical Reduce daily caloric intake and eat a lo w fat diet that limits processed foods and includes fresh fruits and vegetables and lean meats/proteins. Decreaseing your usual daily calorie intake by 500 calories (less the calories burned by increasing your activity) will, on average, cause you to lose 1 pound per week. Aim for at least 30 minutes of physical activity at least 5 days per week.Your BMI (Body weight index or height/weight ratio) is 47A BMI of 25 or below is considered a healthy BMI. Each BMI point equals about 5 pounds.You have lost 1 pound since your last visit. Added 10/17/2015 Goal: Your goal is to lose 5-10% of your current weight and to keep it off. As Diane has never been sexually acti ve, pap smear is not needed at this time. If she becomes sexually active, then an internal exam should be done. Added 10/17/2015 Goal: Screening for cervical cancer. Lifestyle modifications are recommended: Eat a heart-healthy diet, get regular aerobic exercise, maintain a desireable body weight, and avoid tobacco products including second hand smoke.A heart healthy diet consists of avoidance of trans fats (hydrogenated oils), limiting satruated fat (animal fat), emphasis on fruits and vegetables while limiting starches and sugars, and use of nut and plant oils such as olive oil and nut oils. Added 10/20/2016 Goal: prevention of cardiovascular disease. Depression screening is recommended by [facility], and your screening did not show current risk of serious depression. Added 10/20/2016 Goal: Screening for symptoms of depression. Your blood work did not show infection w ith HIV. 10/22/16 Added 10/20/2016 Goal: Screening for HIV (AIDS). Screening is recommended by the NIH to be done at least once during the ages of 13-64. As this has been going on for years, and no change lately, hormonal therapy was started to help with the duration and discomfort of the periods. It was not helpful.We'll check your blood work to see if you still are anemic. Added 10/20/2016 Goal: decrease the heavy periods.Decrease the discomfort. Iron deficiency can cause this.Blood wor k will be ordered to see if you still have anemia. Added 10/27/2016 Goal: moniter Evaluations & Outcomes Includes: Evaluations & Outcomes for active Goals Goal converted from Patient Problem data . Goal is currently In Progress. Added 09/12/2013 - In Progress Goal: Continue with Arise Goal converted from Patient Problem data . Goal is currently In Progress. Added 10/02/2014 - In Progress Goal: Avoid worsening. Goal converted from Patient Problem data . Goal is currently In Progress. Added 12/29/2014 - In Progress Goal: Avoid diabetesmoniter. Goal converted from Patient Problem data . Goal is currently In Progress. Added 08/16/2015 - In Progress Goal: Pre-employment physical Goal converted from Patient Problem data . Goal is currently In Progress. Added 10/17/2015 - In Progress Goal: Your goal is to lose 5-10% of your current weight and to keep it off. Goal converted from Patient Problem data . Goal is currently In Progress. Added 10/17/2015 - In Progress Goal: Screening for cervical cancer. Goal converted from Patient Problem data . Goal is currently In Progress. Added 10/20/2016 - In Progress Goal: prevention of cardiovascular disease. Goal converted from Patient Problem data . Goal is currently In Progress. Added 10/20/2016 - In Progress Goal: Screening for symptoms of depression. Goal converted from Patient Problem data . Goal is currently In Progress. Added 10/20/2016 - In Progress Goal: Screening for HIV (AIDS). Screening is recommended by the NIH to be done at least once during the ages of 13-64. Goal converted from Patient Problem data . Goal is currently In Progress. Added 10/20/2016 - In Progress Goal: decrease the heavy periods.Decrease the discomfort. Goal converted from Patient Problem data . Goal is currently In Progress. Added 10/27/2016 - In Progress Goal: moniter
--- OUTSIDE RECORDS SUMMARY | 2020-07-25 11:14 | CCD ---
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 Visit For: Pre-employment Physical 08/16/2015 - 12:00AM Tori Short MD Inactive Note: 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 03/26/20 Az Marie DO Lab FREE T4 (FREE THYROXINE) 03/26/20 Felicia Marie DO Lab Thyroglobulin ABS 03/26/20 Az Marie DO Lab Thyrotropin Receptor Ab,S 03/26/20 Yonatan Marie DO Lab FREE T4 AND TOTAL T4 03/26/20 Az Marie DO Lab Thyroid Peroxidase (TPO) Ab 03/26/20 Az Marie DO Lab TSH 03/26/20 Az rendon DO Lab CT ABD & PEL W CONTRAST 04/12/20 Betzaida Santana NP Lab COVID 19 09/19/20 Nicolasa clinton [employer]AREHOUSE SHIPPING SUPERVISOR Referrals To Diagnosis Physical Therapy Other specified aki enital deformities of feet Note: Please schedule patient with provi derPhysical Therapy: please schedule 3 times weekly for 6 months for evaluation and treatment of: Club Feet [facility] [place] [facility] Gastroentero logy and M Epigastric pain Note: Please schedule patient with provi domonique- persistent abd sx's send last few notes and scans [facility] Major depressive dis order, single episode, unspecified [...] domonique- please CC last [facility] order, single episode, unspecified Note: Please schedule patient with provi domonique- dx as listed hx poorly controlled A/D with weekly and sometimes daily trips to ER / admission and limited cognitive capacity- casework specialist trying to get he into nursing home- [facility] Future Appointments Date Time Location Provider D Emergency 07/25/2020 4:15PM [facility] Anni morales DDS Chronic Disease Follow-up 10/23/2020 1:00PM [facility] Trang Enamorado MANOMETER TECHNICIAN Future Tests Order Diagnosis Results Due Ordering Provid er Visit Summary - Standard Visit Visit Summary Standard Visi t Acute pharyngitis, unspecified 07/20/20 Betzaida Santana NP Findings Encounter Date Ordered return to the clinic if condition worsens or n ew symptoms arise Acute Follow-up Telehealth with Betzaida Santana NP 07/20/2020 Instructions for patient YOUR SYMPTOMS TODAY ARE [...] ANY CONCERNS Acute L1 with Aura Roa MANOMETER TECHNICIAN 06/26/2020 Ordered return to the clinic if condition worsens or n ew symptoms arise Acute L2 with Betzaida Santana NP 05/18/2020 Ordered follow-up visit AHR with Trang Enamorado MANOMETER TECHNICIAN 2019 Ordered return to the clinic if condition worsens or n ew symptoms arise AHR with Trang Enamorado MANOMETER TECHNICIAN 05/01/2020 Return to the clinic if condition worsens or new sympt oms arise AHR with Trang Enamorado MANOMETER TECHNICIAN 05/01/2020 Instructions for patient Acute L1 with Betzaida Santana NP 03/16 Ordered follow-up visit Acute L1 with Betzaida Santana NP 04/10 Ordered return to the clinic if condition worsens or n ew symptoms arise Acute L1 with Betzaida Santana NP 04/10/2020 Instructions for patient Acute L3 with [...] WAS D/C'D IN STABLE CONDITION Emergency with Betzaida Frausto NP 03/05/2020 Return to the clinic if condition worsens or new sympt oms arise Emergency with Patricia Mclain NP 02/21/2020 Instructions for patient D Emergency with Az katz DO 02/03/2020 Ordered follow-up visit D Emergency with Az Marie DO 02/03/2020 Ordered return to the clinic if condition worsens or n ew symptoms arise D Emergency with Az Marie DO 02/03/2020 Ordered Clinical summary transmitted to referring provider electronically with reasonable certainty of receipt or receiving provider electronically through [employer] [facility] Telephonic Encounter with Az Marie DO 01/26/2020 Ordered Clinical summary transmitted to referring provider electronically with reasonable certainty of receipt or receiving provider electronically through [employer] [facility] Telephonic Encounter with Az Marie DO 12/12/2019 Instructions for patient Emergency with Az Marie DO 12/02/2019 Ordered Clinical summary transmitted to referring provider electronically with reasonable certainty of receipt or receiving provider electronically through [employer] [facility] Emergency with Az Marie DO 12/02/2019 Ordered follow-up visit Emergency with Az Savage O 12/02/2019 Ordered return to the clinic if condition worsens or n ew symptoms arise Emergency with Az Marie DO 12/02/2019 Instructions for patient Hospital Follow-up with Az hylton DO 11/21/2019 Ordered Clinical summary transmitted to referring provider electronically with reasonable certainty of receipt or receiving provider electronically through [employer] [facility] Hospital Follow-up with Az Marie DO 11/21/2019 Ordered follow-up visit Hospital Follow-up with Az stephenson DO 11/21/2019 Ordered return to the clinic if condition worsens or n ew symptoms arise Hospital Follow-up with Az Marie DO 11/21/2019 Instructions for patient Telehealth with Az Marie DO 09/08/2019 Ordered Clinical summary transmitted to referring provider electronically with reasonable certainty of receipt or receiving provider electronically through [employer] [facility] Telehealth with Az Marie DO 09/08/2019 Ordered [...] mental status changes. Hospital Follow-up with Trang Enamorado [facility] 08/18/2019 Ordered Clinical summary transmitted to referring provider electronically with reasonable certainty of receipt or receiving provider electronically through [facility] Hospital Follow-up with Trang Enamorado [facility] 0 Ordered follow-up visit Hospital Follow-up with Trang lindo [facility] 08/18/2019 Ordered return to the clinic if condition worsens or n ew symptoms arise Hospital Follow-up with Trang Enamorado [facility] 08/18/2019 Instructions for patient meds as rx in crease fluids medicate for temp -Can go to the ER if worsening sx Otherwise follow here if not better with tx Walk- In with Anay Rincon [employer]HOUSE SHIPPING SUPERVISOR 06/27/2019 Ordered Clinical summary transmitted to referring provider electronically with reasonable certainty of receipt or receiving provider electronically through [facility] Walk-In with Anay Rincon NP 06/27/2019 Ordered return to the clinic if condition worsens or n ew symptoms arise Walk-In with Anay Rincon NP 06/27/2019 Instructions for patient Hospital Follow-up with Az hylton DO 06/23/2019 Ordered Clinical summary transmitted to referring provider electronically with reasonable certainty of receipt or receiving provider electronically through [facility] Hospital Follow-up with Az Marie DO 06/23/2019 Ordered follow-up visit Hospital Follow-up with Az stephenson DO 06/23/2019 Ordered return to the clinic if condition worsens or n ew symptoms arise Hospital Follow-up with Az Marie DO 06/23/2019 Ordered Clinical summary transmitted to referring provider electronically with reasonable certainty of receipt or receiving provider electronically through [employer] [facility] Walk-In with Patricia Mclain NP 06/02/2019 Return to the clinic if condition worsens or new sympt oms arise Walk-In with Patricia Mclain NP 06/02/2019 Instructions for patient Follow-up Acute with Az evans DO 05/09/2019 Ordered Clinical summary transmitted to referring provider electronically with reasonable certainty of receipt or receiving provider electronically through [employer] [facility] Follow-up Acute with Az Marie DO 05/09/2019 [...] of receipt or receiving provider electronically through [employer] [facility] Hospital Follow-up with Az Marie DO 05/02/2019 Ordered follow-up visit Hospital Follow-up with Az stephenson DO 05/02/2019 Ordered return to the clinic if condition worsens or n ew symptoms arise Hospital Follow-up with Az Marie DO 05/02/2019 Ordered Clinical summary transmitted to referring provider electronically with reasonable certainty of receipt or receiving provider electronically through [employer] [facility] Walk-In with Betzaida SHANE 04/25/2019 Ordered follow-up visit 1-2 weeks if no t resolving-- sooner if weakness, increased pain or symptoms-- Walk-In with Betzaida SHANE 04/25/2019 Ordered return to the clinic if condition worsens or n ew symptoms arise Walk-In with Betzaida SHANE 04/25/2019 Instructions for patient Establish Care with Az rendon DO 03/15/2019 Ordered Clinical summary transmitted to referring provider electronically with reasonable certainty of receipt or receiving provider electronically through [employer] [facility] Establish Care with Az Marie DO 03/15/2019 Ordered follow-up visit Establish Care with Az zepeda DO 03/15/2019 Ordered return to the clinic if condition worsens or n ew symptoms arise Establish Care with Az Marie DO 03/15/2019 Ordered Clinical summary transmitted to referring provider electronically or receiving provider electronically through [facility] AHR with Tori Short MD 04/28/2018 Ordered return to the clinic if condition worsens or n ew symptoms arise AHR with Tori Short MD 04/28/2018 Ordered Clinical summary transmitted to referring provider electronically or receiving provider electronically through [facility] Walk-In with Ana Boswell DO 01/08/2018 Continue current medication except where otherwise no rosa maria Chronic Disease Follow-up with Tori Short MD 08/13/2017 Ordered Clinical summary transmitted to referring provider electronically or receiving provider electronically through [facility] Chronic Disease Follow-up with Tori Short MD [...] 03/11/2017 Ordered Transition in care, clinical sum betzaida provided electronically through [facility] Chronic Disease Follow-up with Tori Short MD [...] 10/20/2016 Ordered Transition in care, clinical sum betzaida provided electronically through [facility] AHR with Tori Short MD 10/20/2016 Patient education about pain management AHR with Toir Short MD 10/20/2016 Ordered return to the [...] MD 10/02/2014 Ordered disposition - Patient or careta champ was instructed in use of tylenol and/or motrin as needed for pain or fever, and mucinex as needed. Fluids, rest was advised. Also, the patient is to return or call for appointment if there is persistence of fever for more than 48 hours, pain or other new significant symptoms Walk-In with Betzaida SHANE 09/12/2014 Ordered return to the clinic if condition worsens or n ew symptoms arise Walk-In with Betzaida SHANE 09/12/2014 Continue soaking hand in hot [...] incontinence M Same Day with Yen Garland [employer]AREHOUSE SHIPPING SUPERVISOR 04/15/2013 Ordered fluids (patient to increase p.o. intake) Sa me Day with Yen Garland [employer]AREHOUSE SHIPPING SUPERVISOR 04/15/2013 Ordered return to the clinic if condition worsens or n ew symptoms arise M Same Day with Yen Garland NP 04/15/2013 Supplies sent home for stool specimen. GM aware Sa me Day with Yen Garland [employer]AREHOUSE SHIPPING SUPERVISOR 03/17/2013 Ordered return to the clinic if condition worsens or n ew symptoms arise M Same Day with Yen Garland [employer]AREHOUSE SHIPPING SUPERVISOR 03/17/2013 Also recommended A&D ointment for erythema of vagina l area M Same Day with Yen Garland [employer]HOUSE SHIPPING SUPERVISOR 10/20/2012 Ordered a urine culture M Same Day with Yen Garland [employer]HOUSE SHIPPING SUPERVISOR 10/20/2012 Ordered fluids (patient to increase p.o. intake) Sa me Day with Yen Garland NP 10/20/2012 Ordered urinalysis M Same Day with Yen Garland [employer]AREHOUSE SHIPPING SUPERVISOR 01/2013 Ordered a urine culture M Same Day with Yen Garland [employer]AREHOUSE SHIPPING SUPERVISOR 10/07/2012 Ordered fluids (patient to increase p.o. intake) M Sa me Day with Yen Garland WAREHOUSE SHIPPING SUPERVISOR 10/07/2012 Ordered urinalysis M Same Day with Yen Garland [employer]AREHOUSE SHIPPING SUPERVISOR 09/14 Keep toe clean and dry. May apply antibacterial oint ment prn WELL CHILD CHECK with Yen Garland NP 08/19/2012 Ordered return to the clinic if condition worsens or n ew symptoms arise WELL CHILD CHECK with Yen Garland NP 08/19/2012 Ordered return to the clinic if condition worsens or n ew symptoms arise M Same Day with Yen Garland [employer]HOUSE SHIPPING SUPERVISOR 07/16/2011 TC to to discuss findings and recommendations WEL L CHILD CHECK with Yen Garland NP 06/24/2011 Ordered influenza virus vaccine Provided VIS and perm ission form today WELL CHILD CHECK with Yen Domenica Gill COULTER 06/24/2011 Ordered return to the clinic if condition worsens or n ew symptoms arise M Same Day with Yen Garland WAREHOUSE SHIPPING SUPERVISOR 05/20/2011 Ordered return to the clinic if condition worsens or n ew symptoms arise M Same Day with Yen Garland WAREHOUSE SHIPPING SUPERVISOR 04/29/2011 Ordered return to the clinic if condition worsens or n ew symptoms arise M Same Day with Yen Garland WAREHOUSE SHIPPING SUPERVISOR 03/12/2011 Ordered return to the clinic if condition worsens or n ew symptoms arise M Same Day with Yen Garland WAREHOUSE SHIPPING SUPERVISOR 03/10/2011 Ordered return to the clinic if condition worsens or n ew symptoms arise M Same Day with Yen Garland NP 02/20/2011 Recommended otc ear gtts for cerumen - debrox. Will recheck in 1-2 weeks M Acute with Yen Garland WAREHOUSE SHIPPING SUPERVISOR 05/29/2009 Ordered disposition - Telephone call to to discuss findings and recommendations M Acute with Yen Garland WAREHOUSE SHIPPING SUPERVISOR 05/29/2009 Ordered follow-up visit in 1-2 weeks M Acute with Yen munoz WAREHOUSE SHIPPING SUPERVISOR 05/29/2009 Ordered return to the clinic if condition worsens or n ew symptoms arise M Acute with Yen Garland WAREHOUSE SHIPPING SUPERVISOR 05/29/2009 Assessments Includes: Assessments for all patient encounters Findings Encounter Date Pharyngitis Acute Follow-up Telehealth with Betzaida malave WAREHOUSE SHIPPING SUPERVISOR 07/20/2020 Acute pharyngitis Acute L1 with Nicolasa Pablo WAREHOUSE SHIPPING SUPERVISOR 07/18 Vaginitis Acute L1 with Aura Roa MANOMETER TECHNICIAN 2020 Viral syndrome Acute L1 with Aura Roa MANOMETER TECHNICIAN 2020 Vaginitis Acute Follow-up Well with Betzaida Santana WAREHOUSE SHIPPING SUPERVISOR 05/22/2020 Pediculosis Acute L2 with Betzaida Santana [employer]AREHOUSE SHIPPING SUPERVISOR 0 Depression - Appears to be doing well today. 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 Also stable in size on CTA from 11/14/19. Can consider imaging in 1 year- November 2020. Patient low risk AHR with Trang Enamorado MANOMETER TECHNICIAN 05/01/2020 Routine history and physical see [facility] ed problem list above for impression and plan of any problems addressed today. Immunizations reviewed. Tetanus advsied and refused. Flu up to date. Pnuemonia up to date. Shingles after 50. Routine cancer screening reviewed. PAP done today. Mammograms at age 49. Colon screenig at age 49. AHR with Trang Enamorado MANOMETER TECHNICIAN 05/01/2020 Abdominal pain Acute L1 with Betzaida Santana NP 0 Dyspnea Acute L1 with Betzaida Santana NP 0 Major depressive disorder [Patient Encounter] with [...] Marie DO Assessment of dizziness Emergency with Betzaida Olvera Bharat Eric crum WAREHOUSE SHIPPING SUPERVISOR 03/05/2020 Cerumen impaction Emergency with Betzaida Olvera Bharat Kitty stephens WAREHOUSE SHIPPING SUPERVISOR 03/05/2020 Assessment of dizziness Emergency with Patricia Mclain NP 01/2020 Assessment of dyspnea Emergency with Patricia Mclain NP 2019 Chest pain Emergency with Patricia Mclain NP 02/21/20 20 Intellectual disabilities Emergency with Patricia Mclain NP Suicide risk Emergency with Patricia Mclain WAREHOUSE SHIPPING SUPERVISOR 02/21/20 20 Chest pain D Emergency with Az Marie DO 02/03/2020 Depression D Emergency with Az Marie DO 02/03/2020 Lactose intolerance D Emergency with Az Marie DO 02/03/2020 Lung neoplasm of uncertain behavior D Emergency with Az Marie DO 02/03/2020 Depression Telephonic Encounter with Az Mercer joleenjulieta DO 01/26/2020 Lactose intolerance Telephonic Encounter with Az Maloney Curtissadie cristina DO 01/26/2020 Lung neoplasm of uncertain behavior Telephonic Encount er with Az Maloney Curtischarlettejulieta DO 01/26/2020 Depression Telephonic Encounter with Az Maloney Curtissadie cristina DO 12/12/2019 Dizziness Telephonic Encounter with Az Maloney Curtissadie cristina DO 12/12/2019 Lactose intolerance Telephonic Encounter with Az Maloney Curtissadie cristina DO 12/12/2019 Lung neoplasm of uncertain behavior Telephonic Encount er with Az Maloney Curtischarlettejulieta DO 12/12/2019 Assessment of dizziness : sx consistent with stress induced vasovegal response. By the end of the visit pt reported that she felt fine and she left in good spirits Emergency with Az Amara Acevedocharlettejulieta DO 12/02/2019 Depression Hospital Follow-up with Az Amara Acevedonida katelyn DO 11/21/2019 Dizziness Hospital Follow-up with Az Amara Hernandeztatiana katelyn DO 11/21/2019 Lactose intolerance Hospital Follow-up with Az J Curtisnida katelyn DO 11/21/2019 Lung neoplasm of uncertain behavior Hospital Follow-up with Az Amara Acevedocharlettejulieta DO 11/21/2019 Pneumonia Hospital Follow-up with Az J Curtisnida katelyn DO 11/21/2019 Vasovagal syncope Hospital Follow-up with Az J Curtisnida katelyn DO 11/21/2019 Depression Telehealth with Az Amara Marie DO 0 09/08/2019 Dizziness Telehealth with Az Amara Marie DO 0 09/08/2019 Lactose intolerance Telehealth with Az Amara Marie DO 0 09/08/2019 Lung neoplasm of uncertain behavior Telehealth with Az Amara Acevedocharlettejulieta DO 09/08/2019 Depression Medication Follow-up with Az Amara Acevedosadie cristina DO 08/23/2019 Dizziness Medication Follow-up with Az evans DO 08/23/2019 Lactose intolerance Medication Follow-up with Az Amara Acevedosadie cristina DO 08/23/2019 Lung neoplasm of uncertain behavior Medication Follow- up with Az Amara Acevedocharlettejulieta DO 08/23/2019 Abdominal pain - Ongoing for months. la bs benign in the past. CT abd pelvis and Transvaginal US reviewed. Multiple ER visits. Was referred to GI and did not follow through. Will assist her with getting new appt as she did not seem to understand pervious appt Hospital Follow-up with Trang nEamorado [facility] 0 Dizziness - Neuro exam benign. No ortho static hypotension. Has recieved numerous EKG, all benign, EKG in ER 08/15/2019. No cardiac symptoms. RReports having some balance issues, willl get MRI. She tells me she will not go today but will go this week. She declines ER evaluation Hospital Follow-up with Trang Enamorado [facility] 08/18/2019 Pharyngitis - testing negative. No othe r sick symptoms. Montior and symptomatic care. Call with worsening symptoms Hospital Follow-up with Trang Enamorado [facility] 08/18/2019 Sinusitis Walk-In with Anay Rincon [employer]AREHOUSE SHIPPING SUPERVISOR 020 Urinary tract infection Walk-In with Anay Rincon WAREHOUSE SHIPPING SUPERVISOR Abdominal pain--epigastric Hospital Follow-up with Az Marie DO 06/23/2019 Elevated liver enzymes Hospital Follow-up with Az sawyer DO 06/23/2019 No cyst on the left ovary Hospital Follow-up with Az Marie DO 06/23/2019 Urinary tract infection Hospital Follow-up with Az stephenson DO 06/23/2019 Abdominal pain Walk-In with Patricia Mclain WAREHOUSE SHIPPING SUPERVISOR 06/02/2019 Assessment of dizziness Walk-In with Patricia Mclain WAREHOUSE SHIPPING SUPERVISOR 2018 Chest pain Walk-In with Patricia Mclain WAREHOUSE SHIPPING SUPERVISOR 06/02/2019 Nausea Walk-In with Patricia Mclain WAREHOUSE SHIPPING SUPERVISOR 06/02/2019 Abdominal pain--epigastric Follow-up Acute with Az [...] Urinary tract infection Hospital Follow-up with Az guzmancristina DO 05/02/2019 Abdominal pain after she came back from [place] now complaining of abdominal and dizziness and she is being sent to the ER for further eval and treatment options-- Walk-In with Betzaida SHANE 04/25/2019 Contusion with intact skin surface of the left arm [facility] with Betzaida SHANE 04/25/2019 Dizziness blood sugar checked and was 91 in the offic e-- Walk-In with Betzaida SHANE 04/25/2019 Intellectual disabilities Walk-In with Betzaida SHANE Nausea Walk-In with Betzaida SHANE 04/25/20 19 Slipped on the ice Walk-In with Betzaida SHANE 04/25/20 19 Thoracic strain Walk-In with Betzaida SHANE 04/25/20 19 Anxiety disorder due to [...] Assessment of visit for: screening for depression Fishing Vessel Operator albaro Disease Follow-up with Tori Short MD [...] Assessment of visit for: screening for depression Fishing Vessel 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 However, she is at [...] Tori Short MD 5 Bronchitis Walk-In with Betzaida SHANE 09/13/19 15 Cerumen impaction bilat wax, will start ear drops bilat for wax removal Walk-In with Betzaida SHANE 09/12/2014 Epilepsy off meds, no symptoms--per GM Walk-In with Betzaida SHANE 09/12/2014 Intellectual disabilities Walk-In with Betzaida SHANE Abscess - left hand wound check with Yen Garland NP 0 09/20/2013 Abscess - left hand - possible fb M Same Day with Yen Garland NP 09/16/2013 Patient is approved for participation in School, Physical Education, and Sports for 1 year WELL CHILD CHECK with Yen Garland NP 09/12/2013 Normal routine history and physical adolescent (12 - 1 7) WELL CHILD CHECK with Yen Garland NP 09/12/2013 Urinary tract infection M Same Day with Yen Garland NP 04/15/2013 Diarrhea - most likely due to lactose intolerance M Same Day with Yen Garland WAREHOUSE SHIPPING SUPERVISOR 03/17/2013 Urinary tract infection M Same Day with Yen Garland WAREHOUSE SHIPPING SUPERVISOR 10/20/2012 Urinary tract infection M Same Day with Yen Garland WAREHOUSE SHIPPING SUPERVISOR 10/07/2012 Patient is approved for participation in School, Physical Education, and Sports for 1 year WELL CHILD CHECK with Yen Garland WAREHOUSE SHIPPING SUPERVISOR 08/19/2012 Normal routine history and physical adolescent (12 - 1 7) WELL CHILD CHECK with Yen Garland WAREHOUSE SHIPPING SUPERVISOR 08/19/2012 Patient is approved for participation in School, Physical Education, and Sports for 1 year WELL CHILD CHECK with Yen Garland WAREHOUSE SHIPPING SUPERVISOR 06/24/2011 Normal routine history and physical adolescent (12 - 1 8) WELL CHILD CHECK with Yen Garland WAREHOUSE SHIPPING SUPERVISOR 06/24/2011 Patient is approved for participation in School, Physical Education, and Sports for 1 year M Acute with Yen Garland [employer]HOUSE SHIPPING SUPERVISOR 06/24/2010 Normal routine history and physical adolescent (12 - 1 8) M Acute with Yen Garland [employer]AREHOUSE [employer]IPPING SUPERVISOR 06/24/2010 Patient is approved for participation in School, Physical Education, and Sports for 1 year - Adaptive M Acute with Yen Garland [employer]HOUSE [employer]PING SUPERVISOR 06/20/2009 Normal routine history and physical adolescent (12 - 1 8) M Acute with Yen Garland NP 06/20/2009 Cerumen impaction M Acute with Yen Garland NP 009 Lactose intolerance 30 minutes with Betzaida catherine NP 02/13/2009 Seizure disorder 30 minutes with Betzaida catherine [employer]HOUSE [employer]IPPING SUPERVISOR 02/13/2009 Instructions Instructions not supported for this document typeNo Instructions Recorded Medical Equipment - Implanted Devices Includes: Current and historical DevicesNo Medical Equipment Recorded Medications Includes: Current and historical Medications Current Medications (continue as prescribed) guaiFENesin ER 600 MG Oral Tablet Extended Release 12 Hour 0 07/20/2020 Provider: Betzaida Santana NP Diagnosis: Acute pharyngitis, u nspecified 1 tab twice daily Flonase Allergy Relief 50 MCG/ACT Nasal Suspension Provider: Aura TOMPKINS Diagnosis: Viral infection, uns pecified one spray each nostril BID hydrOXYzine HCl 50 MG Oral Tablet 06/21/2020 Provid er: Betzaida Santana NP Diagnosis: Anxiety disorder, un specified 1 tablet PO Q6h PRN for anxiety or sleep Pantoprazole Sodium 40 MG Oral Tablet Delayed Release 2019 - 10/28/2020 Provider: Trang TOMPKINS Diagnosis: Gastro-esophageal re flux disease without esophagitis as directed: Take 1 tablet prior to breakfast daily QUEtiapine Fumarate 50 MG Oral Tablet 05/01/2020 - Provider: Trang TOMPKINS Diagnosis: Major depressive dis order, single episode, unspecified once a day - at bedtime AeroChamber Plus Miscellaneous 04/10/2020 Provider: Betzaida Santana NP Diagnosis: Dyspnea, unspecified use with inhaler Ventolin HFA 108 (90 Base) MCG/ACT Inhalation Aerosol Soluti on 04/10/2020 Provider: Betzaida Santana NP Diagnosis: Dyspnea, unspecified 2 puffs every 4-6 hours as needed Cyclobenzaprine HCl 10 MG Oral Tablet 04/04/2020 Pr ovider: Diagnosis: 1 tablet po tid prn, per discharge medication list dated Dxyqceqm-Wvalkiyas-Zwllwzeuhsf 200-200-20 MG/5ML Oral Suspen jose miguel 04/04/2020 [...] Escitalopram Oxalate 10 MG Oral Tablet 03/12/2020 Ester inman: Az Marie DO Diagnosis: Generalized anxiety disorder increased to 1.5 daily Past Medications on file hydrOXYzine HCl 50 MG Oral Tablet 06/20/2020 - 06/26/2020 Pr ovider: Diagnosis: Anxiety disorder, un specified 1 tablet PO Q6h PRN for anxiety or sleep Fluconazole 150 MG Oral Tablet 05/24/2020 - 06/26/2020 Provi domonique: Betzaida Santana NP Diagnosis: 1 tab once metroNIDAZOLE 500 MG Oral Tablet 05/24/2020 - 06/26/2020 Pro vider: Betzaida Santana NP Diagnosis: twice a day RID Complete Lice Elimination Combination Kit 05/18/2020 - 0 06/26/2020 Provider: Betzaida Santana NP Diagnosis: Pediculosis due to P ediculus humanus capitis as directed Clotrimazole 3 2% Vaginal Cream 05/14/2020 - 05/18/2020 Prov ider: Betzaida Santana NP Diagnosis: as directed- apply 1 applicator vaginally at night for 3 nig hts. Pantoprazole Sodium 40 MG Oral Tablet Delayed Release 2019 - 05/01/2020 Provider: Trang Enamorado MANOMETER TECHNICIAN Diagnosis: Gastro-esophageal re flux disease without esophagitis [...] ER Sulfamethoxazole-Trimethoprim 400-80 MG Oral Tablet 04/25/20 19 - 05/09/2019 Provider: Diagnosis: ER Clindamycin HCl [...] MG Tablet 09/12/2014 - 10/02/2014 Provid er: Betzaida SHANE Diagnosis: Acute Bronchitis 2 tabs po day one, 1tab po daily days 2- 5 Bactrim DS 800-160 MG OR TABS 09/19/2013 - 10/02/2014 Provid er: Yen Garland NP Diagnosis: Cellulitis and Absce ss of Hand Except Fingers and Thumb Take one tablet po bid x 10 days. Keflex 500 MG OR CAPS 09/16/2013 - 09/19/2013 Provider: Yen Garland NP Diagnosis: Cellulitis and Absce ss of Hand Except Fingers and Thumb Take one capsule po bid x 10 days. Macrobid 100 MG OR CAPS 04/29/2013 - 09/12/2013 Provider: Yen Garland NP Diagnosis: Urinary Tract Infect ion Site Not Specified Take one capsule po bid x 14 days. Bactrim DS 800-160 MG OR TABS 04/15/2013 - 04/29/2013 Provid er: Yen Garland [employer] SUPER[employer]OR Diagnosis: Urinary Tract Infect ion Site Not Specified Bactrim DS 800-160 MG OR TABS 10/20/2012 - 03/17/2013 Provid er: Yen Garland [employer]HOU[employer]PING SUPERVISOR Diagnosis: Urinary Tract Infect ion Site Not Specified Take one tablet po bid x 2 weeks. Bactrim DS 800-160 MG OR TABS 10/07/2012 - 10/26/2012 Provid er: Yen Garland [employer]HOU[employer]PING SUPERVISOR Diagnosis: Urinary Tract Infect ion Site Not Specified Take 1 tab po bid x 3 days. Ibuprofen 200 MG OR TABS 07/19/2010 - 10/07/2012 Provider: Yen Garland [employer]HOU[employer]PING SUPERVISOR Diagnosis: LaMICtal 25 MG OR CHEW 06/24/2010 - 09/12/2014 Provider: Diagnosis: Acetaminophen 500 MG OR CAPS 10/24/2009 - 10/07/2012 Provide r: Yen Garland [employer] SUPER[employer]OR Diagnosis: Acetaminophen 500 MG OR CAPS 10/23/2009 - 10/07/2012 Provide r: Yen Garland [employer]HOU[employer] SUPERVISOR Diagnosis: Acetaminophen 500 MG OR TABS 10/15/2009 - 10/07/2012 Provide r: Yen Garland [employer]HOU[employer] SUPERVISOR Diagnosis: Headache Ibuprofen 200 MG OR TABS 07/05/2009 - 10/07/2012 Provider: Yen Garland [employer]HOU[employer] SUPERVISOR Diagnosis: Impacted Cerumen lamoTRIgine 150 MG OR TABS 02/13/2009 - 10/02/2014 Provider: Diagnosis: Misc. Devices [facility] 02/13/2009 - 10/07/2012 Provider: Betzaida Frausto [employer]PING SUPERVISOR Diagnosis: NO DAIRY PRODUCTS TO BE GIVEN AT SCHOOL. PT IS LACTOSE INTOL ERANT. Briefs Medium [facility] 01/13/2008 - 10/07/2012 Provider: Tori Short MD Diagnosis: Bactrim 400-80 MG OR TABS 01/10/2008 - 10/07/2012 Provider: Betzaida SHANE Diagnosis: Briefs Medium MISC 06/14/2007 - 01/13/2008 Provider: Tori Short MD Diagnosis: Medications Administered Includes: Administered Medications in patient's chart Medications Administered Diagnosis Date Provi domonique Ondansetron 4 MG OR TBDP 06/02/2019 Patricia mccormick NP given S.L. Ibuprofen 200 MG OR TABS 05/20/2011 Yen pagna [employer] SUPER[employer]OR Ondansetron 4 MG OR TBDP 05/09/2019 Az Morales rguello DO Ibuprofen 200 MG OR TABS 04/29/2011 Yen pagan [employer]HOU[employer]PING SUPERVISOR Acetaminophen 500 MG OR CAPS 03/12/2011 Yenfidel Garland [employer]HOUSE [employer]PING SUPERVISOR Acetaminophen 500 MG OR CAPS 03/10/2011 Yen Garland [employer]HOUSE [employer]PING SUPERVISOR Ibuprofen 200 MG OR CAPS Headache 02/20/2011 Yen Garland [employer]HOUSE [employer]PING SUPERVISOR Ibuprofen 200 MG OR CAPS 07/16/2011 Yen pagan [employer]PING SUPERVISOR Vital Signs Includes: Vital Signs from 07/20/2019 through 07/20/2020 Vital Name 07/20/2020 12:54P 07/18/2020 02:05P 06/26/2020 01:47P 05/22/2020 01:11P 05/18/2020 08:35A Pain Level 3 0 3 0 3 Respiration Rate (breaths/min) 18 20 20 17 Temp-Tympanic (F) 97.1 97.6 98.9 95.6 Weight (lb) 261.2 251.8 247 250.8 Oxygen Saturation (%) 99 98 98 97 Blood Pressure Sitting L 122/60 122/76 102/80 134/80 BP Cuff Size Large Large Large Large Pulse Rate-Sitting (bpm) 100 96 74 93 Pulse Rhythm Regular Regular Regular Flow Rate (l/min) (None (Room Air)) (None (Ro om Air)) (None (Room Air)) FiO2 (%) Note: no vitals taking by pt at this time Vital Name 05/01/2020 12:49P 04/10/2020 05:38P 04/10/2020 05:09P 03/12/2020 08:16A 03/05/2020 12:26P Pain Level 0 3 0 0 Respiration Rate (breaths/min) 16 20 18 16 Temp-Tympanic (F) 100 98.5 Weight (lb) 250 252 250 Oxygen Saturation (%) 98 99 98 98 Blood Pressure Sitting L 120/78 138/84 140/104 118/66 125/87 BP Cuff Size Large Large Large Large Pulse Rate-Sitting (bpm) 70 90 95 96 Pulse Rhythm Regular Regular Regular Flow Rate (l/min) (None (Room Air)) (None (Ro om Air)) (None (Room Air)) FiO2 (%) Height (in) 61 Body Mass Index (kg/m2) 47.2 Body Surface Area (m2) 2.08 Temp-Temporal 97.2 97.9 Vital Name 02/21/2020 04:28P 02/21/2020 04:27P 02/21/2020 04:06P 02/03/2020 01:33P 12/12/2019 03:16P Pain Level 0 3 0 Respiration Rate (breaths/min) 16 20 Temp-Tympanic (F) 100.6 98.6 Oxygen Saturation (%) 97 98 98 97 Blood Pressure Sitting L 116/70 122/80 BP Cuff Size Large Large Pulse Rate-Sitting (bpm) 125 117 120 133 Flow Rate (l/min) (None (Room Air)) (None (Room Air)) (None (Sarahi m Air)) (None (Room Air)) FiO2 (%) Note: Lap 1 Resting Vital Name 12/02/2019 09:36A 11/21/2019 07:08A 08/23/2019 11:58A 08/23/2019 11:57A 08/23/2019 11:06A Pain Level 0 0 Respiration Rate (breaths/min) 18 20 Temp-Tympanic (F) 99.9 98 Oxygen Saturation (%) 96 98 97 94 Blood Pressure Sitting L 122/60 127/85 BP Cuff Size Large Large Large Pulse Rate-Sitting (bpm) 112 101 113 113 84 Flow Rate (l/min) (None (Room Air)) (None (Room Air)) ( None (Room Air)) FiO2 (%) Blood Pressure Standing L 120/77 Blood Pressure Supine L 130/84 Pulse Rate-Standing (bpm) 101 91 Pulse Rate-Supine (bpm) 99 8 5 Blood Pressure Sitting R 135/77 Blood Pressure Standing R 128/59 Blood Pressure Supine R 1 34/79 Note: 1 min post walking 02 walking o2 sta rt orthostatic BP Vital Name 08/23/2019 10:51A 08/18/2019 09:19A 08/18/2019 08:57A 08/18/2019 08:27A Pain Level 10 10 Respiration Rate (breaths/min) 16 18 Temp-Tympanic (F) 99 Oxygen Saturation (%) 98 98 Blood Pressure Sitting L 116/76 BP Cuff Size Large Large Large Large Pulse Rate-Sitting (bpm) 83 84 Pulse Rhythm Regular Regular Flow Rate (l/min) (None (Room Air)) FiO2 [...] Results Includes: Results from 07/20/2019 through 07/20/2020 VAGINOSIS (BV) TEST [facility] Ordered by Aura Roa [facility] on 06/26/[address], [address] Collected: 06/26/2020 Reported: 06/26/2020 22:23 tel :[phone] PAULETTE BY DNA PROBE NEGATIVE (NEGATIVE) None Note: Responsible Observer: PAULETTE BY D NA PAULETTE BY DNA PROBE 500.3050 (A) GARDNERELLA BY DNA PROBE NEGATIVE (NEGATIVE) None Note: Responsible Observer: GARDNERELLA GARDNERELLA BY DNA PROBE 500.3075 (A) TRICHOMONAS BY DNA PROBE NEGATIVE (NEGATIVE) None Note: TESTING PERFORMED BY NUCLEIC ACID HYBRIDIZATIONResponsible Observer: TRICHOMONAS TRICHOMONAS BY DNA PROBE 500.3100 (A) Reviewed by Aura TOMPKINS on 06/27; All test results are final unless otherwise noted. Reported Physicians [facility] Ordered by Aura Roa [facility] on 06/26/[address], [address] Collected: 06/26/2020 Reported: 06/26/2020 22:23 tel :[phone] Reported Physicians See Note None Note: Reported Physicians:Ordering: Aura StylesAttending: Aura Roa Reviewed by Aura Roa MANOMETER TECHNICIAN on 06/27; All test results are final unless otherwise noted. VAGINOSIS (BV) TEST [facility] Ordered by Betzaida Santana [employer]HOUSE SHIPPING SUPERVISOR on 05/22/[address] [place] [address], [address] Collected: 05/22/2020 Reported: 05/22/2020 21:25 tel :[phone] PAULETTE BY DNA PROBE POSITIVE (NEGATIVE) A (Abnormal) Note: Responsible Observer: PAULETTE BY D NA PAULETTE BY DNA PROBE 500.3050 (A) GARDNERELLA BY DNA PROBE POSITIVE (NEGATIVE) A (Abnormal) Note: Responsible Observer: GARDNERELLA GARDNERELLA BY DNA PROBE 500.3075 (A) TRICHOMONAS BY DNA PROBE NEGATIVE (NEGATIVE) None Note: TESTING PERFORMED BY NUCLEIC ACID HYBRIDIZATIONResponsible Observer: TRICHOMONAS TRICHOMONAS BY DNA PROBE 500.3100 (A) Reviewed by Betzaida Santana [employer]HOUSE SHIPPING SUPERVISOR on 05/24/20 20; All test results are final unless otherwise noted. Reported Physicians [facility] Ordered by Betzaida Santana WAREHOUSE SHIPPING SUPERVISOR on 05/22/[address] [address], [address] Collected: 05/22/2020 Reported: 05/22/2020 21:26 tel :[phone] Reported Physicians See Note None Note: Reported Physicians:Ordering: Betzaida NevarezAttending: Betzaida Santana Reviewed by Betzaida Santana [employer]HOUSE SHIPPING SUPERVISOR on 05/24/20 20; All test results are final unless otherwise noted. VAGINOSIS (BV) TEST [facility] Ordered by Trang Enamorado MANOMETER TECHNICIAN on 05/01/[address] [place] [address], [address] Collected: 05/01/2020 Reported: 05/02/2020 17:22 tel :[phone] PAULETTE BY DNA PROBE NEGATIVE (NEGATIVE) None Note: Responsible Observer: PAULETTE BY D NA PAULETTE BY DNA PROBE 500.3050 (A) GARDNERELLA BY DNA PROBE NEGATIVE (NEGATIVE) None Note: Responsible Observer: GARDNERELLA GARDNERELLA BY DNA PROBE 500.3075 (A) TRICHOMONAS BY DNA PROBE NEGATIVE (NEGATIVE) None Note: TESTING PERFORMED BY NUCLEIC ACID HYBRIDIZATIONResponsible Observer: TRICHOMONAS TRICHOMONAS BY DNA PROBE 500.3100 (A) Reviewed by Trang TOMPKINS on 04/15; All test results are final unless otherwise noted. Reported Physicians [facility] Ordered by Trang TOMPKINS on 05/01/[address] [place] [address], [address] Collected: 05/01/2020 Reported: 05/02/2020 17:22 tel : Reported Physicians See Note None Note: Reported Physicians:Ordering: Trang FriedmanAttending: Trang Enamorado Reviewed by Trang TOMPKINS on 04/15; All test results are final unless otherwise noted. Thin Prep Image Guided [facility] Ordered by Trang TOMPKINS on 05/01/[address] [place] [address], [address] Collected: 05/01/2020 Reported: 05/13/2020 13:29 tel : See Note Chris None Note: Run: 05/13/20 1329 INTERFACED REPORT Name: Diane Schuler Age/Sex: 25/F Location: [facility] Acct: [id number] Unit: [id number] Status: REG REF Room/Bed: Re05/01/20 Disch: Att Dr: Trang Enamorado Spec Num: [id number] Recd: 05/02/2039 Status: COBY Zamarripa Num: [id number] SpType: CYTOLOGY Sub Dr: Trang Enamorado Specimen SubmittedThin Prep Image Guided Z12.72 : Screening vaginal pap smear CERVICAL, LMP 04/10/2020, LR 05/01/2020 Specimen Adequacy Satisfactory for evaluation Endocervical/transformation zone component present. General Categorization Negative for Intraepithelial Lesion or Malignancy Descriptive Diagnosis Fungal Elements Present Consistent with Paulette SP. Predominance of Bacteria Co nsistent with a Shift in Vaginal Denise. Specimen Identification Verified. Reviewing Inspector Aide PF HPV RESULTS Date Time Test Result [...] 05/13/20 1329 END OF REPORT Reviewed by Betzaida Santana NP on 05/14/20; All test results are final unless otherwise noted. Reported Physicians [facility] Ordered by Trang TOMPKINS on 05/01/[address] [place] [address], [address] Collected: 05/01/2020 Reported: 05/13/2020 13:29 tel : Reported Physicians See Note None Note: Reported Physicians:Ordering: Trang FriedmanAttending: Trang Enamorado Reviewed by Betzaida Santana NP on 05/14/20 20; All test results are final unless otherwise noted. COVID 19 (RHEONIX) [facility] Ordered by Az Marie DO on 02/04/[address] [place] [address], [address] Collected: 02/04/2020 Reported: 02/04/2020 20:39 tel : Note: COVID Reason [place] Admission Priority COVID 19 (RHEONIX) NOT-DETECTED (NOTDETECTED) None Note: The Optirenox COVID-19 MDx Assay is an endpoint RT-PCR assay intended for the qualitative detection of nucleic acid from SARS-CoV-2 in nasopharyngeal swabs. COVID testing using the Optirenox analyzer was developed for the purpose of [...] Observer: COVID 19 (R) COVID 19 (RHEONIX) 550.2865 (A) Reviewed by Az Marie DO on ; All test results are final unless otherwise noted. Reported Physicians [facility] Ordered by Az Marie DO on 02/04/[address], [address] Collected: 02/04/2020 Reported: 02/04/2020 20:39 tel : Reported Physicians See Note None Note: Reported Physicians:Ordering: Az Duranending: Feroz AlmanzardAdmitting: Cynthia Almanzaropy To: FABIAN DOWNS Reviewed by [...] unless otherwise noted. CBC w/ Auto Diff [facility] Ordered by Az Marie DO on 08/23/[address], [address] Collected: 08/23/2019 Reported: 08/23/2019 18:24 tel : BASO # (AUTO) 0.06 3/uL (0.00-0.20) N [...] final unless otherwise noted. HCG QUALITATIVE SPECIMEN [facility] Ordered by Az Marie DO on 08/23/[address] [place] [address], [address] Collected: 08/23/2019 Reported: 08/23/2019 18:36 tel :[phone] HCG QUALITATIVE SPECIMEN SERUM None Note: Responsible Observer: HCG QL SPECI MEN HCG QUALITATIVE 300.11676 (A) Reviewed by Az Marie DO on ; All test results are final unless otherwise noted. *HCG QUALITATIVE SERUM [facility] Ordered by Az Marie DO on 08/23/[address] [place] [address], [address] Collected: 08/23/2019 Reported: 08/23/2019 18:36 tel :[phone] HCG RESULT,S NEGATIVE None Note: Reference range is Negative "Extreme" early may have low levels of HCG present. If is suspected, repeat testing with a new specimen in 48-72 hoursResponsible Observer: HCG RESULT,S HCG RESULT,S 300.6001 (A) Reviewed by Az Marie DO on ; All test results are final unless otherwise noted. COMPREHENSIVE METABOLIC PANEL [facility] Ordered by Az Marie DO on 08/23/[address] [place] [address], [address] Collected: 08/23/2019 Reported: 08/28/2019 11:50 tel :[phone] Note: Has Patient Fasted For The Past [...] results are final unless otherwise noted. GLYCOSYLATED HGBA1C [facility] Ordered by Az Marie DO on 08/23/[address] [place] [address], [address] Collected: 08/23/2019 Reported: 08/28/2019 11:50 tel : Note: Has Patient Fasted For The Past 12 Hours? N Has Patient Fasted For The Past 12 Hours? Y GLYCOSYLATED HGBA1C 5.1 % (4.1-6.5) N (Normal) Note: Responsible Observer: HGB A1C GLYC OSYLATED HGBA1C 300.0800 (A) Reviewed by Az Marie DO on ; All test results are final unless otherwise noted. LIPID PANEL [facility] Ordered by Az Marie DO on 08/23/[address], [address] Collected: 08/23/2019 Reported: 08/28/2019 11:50 tel : Note: Has Patient Fasted For The Past [...] results are final unless otherwise noted. TSH [facility] Ordered by Az Marie DO on 08/23/[address] [place] [address], [address] Collected: 08/23/2019 Reported: 08/28/2019 11:50 tel : Note: Has Patient Fasted For The Past [...] are final unless otherwise noted. Reported Physicians [facility] Ordered by Az Marie DO on 08/23/[address] [place] [address], [address] Collected: 08/23/2019 Reported: 08/28/2019 11:50 tel : Reported Physicians See Note None Note: Reported Physicians:Ordering: Az Duranending: Az Marie Reviewed by Az Marie DO on ; All test results are final unless otherwise noted. Strep Test [facility] Ordered by Trang TOMPKINS on 08/18/2019 Collected: 08/18/2019 Reported: 08/18/2019 09:18 [...] 07/20/2020 Not using drugs 09/08/2019 07/20/2020 Smoking Status Unknown Procedures and Surgical History Includes: Procedures from 07/20/2019 through 07/20/2020 Procedures Code Diagnosis Performing Provider Service Location Service Date Immunization Administration (includes Percutaneous, [place] 16705 Encounter for immunization Az Amara [facility] 03/12/2020 Influenza virus vaccine, preservative free, 6 months and up [address] Encounter for immunization Az Amara [facility] 03/12/2020 Removal of impacted cerumen using irrigation 21365 Imp acted cerumen, bilateral Betzaida Olvera Bharat Frausto [facility] 03/05/2020 Ekg With Interpretation and Report [id number] Chest pain, u nspecified Patricia Mclain [facility] 02/21/2020 Ekg With Interpretation and Report [id number] [facility], [facility] Glucose, Blood by Glucose Monitoring [place] [id number] [facility] Ekg With Interpretation and Report [id number] Sync[facility]2019 Noninvasive Ear or Pulse Oximetry for Ox ygen Saturation; Mul (distinct separate procedure) 61755 Dizziness and giddiness [facility] 08/23/2019 Ekg With Interpretation and Report 13875 Dizziness and giddiness [facility] 08/23/2019 Urinalysis, by Dip Stick or Tablet Reagent [place] [address] Unspecified abdominal pain Trang Enamorado [facility] 08/18/2019 Rapid Strep Test (QW) 32412 Acute pharyngitis, unspecified J danette Enamorado [facility] 08/18/2019 Surgical History Last Updated History of [...] Upper Left Arm Complete (Administered) [facility] 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: 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- [employer] Hep B 1 1994 Complete (Reported) [...] Check-Out Time D iagnosis Acute Follow-up Telehealth Betzaida Santana [facility] 021 07/18/2020 10:10AM 1:01PM Pharyngitis Acute L1 Nicolasa Willettball [facility] 07/18/2020 1:52PM 2: 40PM Pharyngitis Acute Acute L1 Aura Roa [facility] 06/26/2020 1:39PM 2:1 9PM Vaginitis, Viral Syndrome Medication Order Betzaida Santana NP 05/24/2020 05/22/2020 9: 22AM 05/22/2020 11:59PM Acute Follow-up Well Betzaida Santana [facility] 05/22/2020 12:53 PM 1:54PM Vaginitis Acute L2 Betzaida Santana [facility] 05/18/2020 8:27AM 9:02AM Pediculosis Medication Order Betzaida Santana NP 05/14/2020 05/01/2020 7: 41AM 05/01/2020 11:59PM AHR Trang Enamorado [facility] 05/01/2020 12:09PM 1: 24PM Routine History and Physical, Depression, Lung Neoplasm Uncertain Behavior Chart Prep Trang Enamorado [facility] 04/24/2020 04/10/2020 8:48 AM 04/10/2020 11:59PM Acute L1 Betzaida Santana [facility] 04/10/2020 5:09PM 5:44PM Abdominal Pain, Difficulty Breathing (Dyspnea) Acute L3 Az Marie [facility] 03/12/2020 7:50AM 9:10AM Depression, Generalized Anxiety Disorder, Obesity Morbid Emergency Betzaida Frausto [facility] 03/05/2020 1 2:25PM 1:26PM Assessment of Dizziness, Cerumen Impacti on Emergency Az Marie 03/02/2020 02/21/2020 12 :00PM 02/21/2020 11:59PM Correspondence Radha Etienne [facility] 0 02/21/2020 11:50AM 02/21/2020 11:59PM Emergency Patricia Mclain NP [facility] 02/21/2020 4:02PM 4:49PM Suicide Risk, Chest Pain, Intellectual Disabilities, Assessment of Dizziness, Assessment of Difficulty Breathing (Dyspnea) Referral Order Az Marie 02/13/2020 0 8:54AM 02/03/2020 11:59PM D Emergency Az Marie [facility] 02/03/2020 1:32PM 2:53PM Chest Pain, Depression, Lung Neoplasm Uncertain Behavior, Lactose Intolerance Telephonic Encounter Az Marie [facility] 020 12/02/2019 1:20PM 2:03PM Depression, Lung Neoplasm Un certain Behavior, Lactose Intolerance Telephonic Encounter Az Marie [facility] 020 12/02/2019 3:30PM 3:46PM Dizziness, Depression, Lung Neoplasm Uncertain Behavior, Lactose Intolerance Correspondence zA Marie 12/07/2019 0 8:08AM 12/02/2019 11:59PM Emergency Az Marie [facility] 12/02/2019 9:32AM 11:16AM Assessment of Dizziness Lab Order Az Marie 11/25/2019 11/21/2019 9: 18AM 11/21/2019 11:59PM Hospital Follow-up Az Marie [facility] 11/21/2019 7:05AM 8:15AM Dizziness, Depression, Lung Neoplasm Unc ertain Behavior, Lactose Intolerance, Vasovagal Syncope, Pneumonia Telehealth Az Marie 09/08/2019 08/18/2019 10 :27AM 08/23/2019 11:59PM Dizziness, Depression, Lung Neoplasm Unc ertain Behavior, Lactose Intolerance Telehealth Az Marie [facility] 09/08/2019 11:49AM 11:50AM Correspondence Az Marie DO 09/05/2019 0 9:02AM 08/23/2019 11:59PM Chart Prep Az Marie DO 09/02/2019 08/18/2019 4: 05PM 08/23/2019 11:59PM Correspondence Radha Etienne [employer] IRRIGATOR/COUNTER CLERK [employer] [facility] 0 08/18/2019 10:18AM 08/23/2019 11:59PM Medication Follow-up Az Amara Marie DO [facility] 020 08/18/2019 11:20AM 1:14PM Dizziness, Depression, Lacto se Intolerance, Lung Neoplasm Uncertain Behavior Hospital Follow-up Trang Enamorado [facility] 08/18/[facility] 7: 40AM 9:35AM Abdominal Pain, Dizziness, Pharyngitis Correspondence Az Marie DO 08/16/2019 0 4:55PM 06/27/2019 11:59PM Insurance Includes: Active Insurance Policies Plan Name Member ID Group # Subscriber Relationship Effective Da alin 1 - [facility] Medicaid [id number] Diane Crawford f 06/15/2017 - Unknown 2 - D [employer] [id number] Diane savage Self Advance Directives Includes: Current Advance Directives Directive Pat Aware Third Democrat Effective Date Reviewed Status packet given Pt [...] (AIDS). Screening is r ecommended by the [facility] to be done at least once during the ages of 13-64. Added 10/20/2016 by Provider Health Concern: Visit For: Screening Exam For Human Immunodeficiency Virus decrease the heavy periods.Decrease the discomfort. Added 10/20/2016 by Provider Health Concern: Dysmenorrhea moniter Added 10/27/2016 by Provider Health Concern: Anemia Interventions Includes: Interventions for active Goals Follow up with your medicaid managed car e casework specialist, Evelia.You have stopped going to [facility].Guardianship has been discussed with grandmother, I have [...] diabetesmoniter. [facility]PPD was done today and needs [...] Depression screening is recommended by violette menard [facility], and your screening did not show [...]
--- OUTSIDE RECORDS SUMMARY | 2020-07-25 11:14 | CCD ---
Author [facility] Address [address] [place] [address] Phone Care Team Providers Care Erp Programmer Name Role Phone Az Marie DO Unavailable [phone] Az Marie DO PP [phone] Reason for Referral No Reason for Referral Recorded Problems Includes: Active, inactive, and resolved Problems All Visits Effective Date(s) Provider Condition Stat us Difficulty Breathing (dyspnea) 02/21/2020 Patricia Mclain NP Active Depression 08/23/2019 Az Marie DO Active Lactose Intolerance 08/23/2019 Az Marie DO Activ e Generalized Anxiety Disorder 06/23/2019 Az Marie DO Active History of Major Depression 06/23/2019 Az Marie DO Active Dizziness 06/02/2019 Patricia Mclain NP Active 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 Elevated Liver Enzymes 03/21/2019 Az Marie DO Ac tive Microalbuminuria 03/21/2019 Az Marie DO Active Skin Disorder Exanthem 01/08/2018 - 04/28/2018 Tori stephens MD Resolved Note: Resolved Anemia 10/27/2016 Tori Short MD Active Note: Unchanged Visit For: Screening Exam Depression 10/20/2016 Tori Short MD Active Dysmenorrhea 10/20/2016 Tori Short MD Active Note: with hypermenorrhea Visit For: Screening Exam Lipoid Disorders 10/20/2016 Dimitrios Short MD Active Visit For: Screening Exam For Human Immunodeficiency Virus 0 10/20/2016 Tori Short MD Active Obesity Morbid 10/17/2015 Tori Short MD Active Note: Improved Visit For: Screening Exam For Malignant Neoplasm Cervix 09/2015 Tori Short MD Active Note: no sexual activity. Visit For: Pre-employment Physical 08/16/2015 Tori miller MD Inactive Note: 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 Tori Short MD Active Note: Well-Controlled - bila teral, followed by Dr Blackwell Intellectual Disabilities 09/12/2013 Tori Short MD Active Note: Unchanged Epilepsy 08/30/2007 - 10/02/2014 Tori Short MD Re solved Note: Resolved - DR RAMÍREZ followed, was ON LAMOTRIGINE 150 BID, discontinued 2012 Plan of Treatment Pending Tests Order Diagnosis Results Due Ordering Provi domonique Lab (CBC)COMPLETE BLOOD CNT 09/17/19 Monique Marie DO Lab COMPREHENSIVE METABOLIC PANEL 09/17/19 Az Marie DO Lab HP5+HAVIgM+HBcIgM,S 09/17/19 Az Marie DO Lab MICROALBUMIN RANDOM 09/17/19 Az Marie DO Lab TSH 09/17/19 Az rendon DO Lab XR CHEST 2 VW 02/07/20 Az Mecrer ujulieta DO Lab T3FREE 03/26/20 Az rendon DO Lab T3 UPTAKE 03/26/20 Az rendon DO Lab FREE T4 (FREE THYROXINE) 03/26/20 Felicia Marie DO Lab Antithyroglobulin Ab 03/26/20 Az Marie DO Lab Thyrotropin Receptor Ab,S 03/26/20 Yonatan Marie DO Lab FREE T4 AND TOTAL T4 03/26/20 Az Marie DO Lab Thyroid Peroxidase (TPO) Ab 03/26/20 Az Amara Marie DO Lab TSH 03/26/20 Az Amara Acevedocharlette julieta DO Lab CT ABD & PEL W CONTRAST 04/12/20 Aster Santana ENT SURGEON Lab CLOSTRIDIUM DIFF AMPLIFICATION 05/10/20 Aster Santana ENT SURGEON Lab OVA AND PARASITES 05/10/20 Aster phillips ENT SURGEON Lab STOOL CULTURE 05/10/20 Aster Santana ENT SURGEON Lab STOOL FOR WBC 05/10/20 Aster Santana ENT SURGEON Lab VAGINOSIS (BV) TEST 05/22/21 Aster malave ENT SURGEON Referrals To Diagnosis Physical Therapy Other specified aki enital deformities of feet Note: Please schedule patient with provi derPhysical Therapy: please schedule 3 times weekly for 6 months for evaluation and treatment of: Club Feet GI [place] [facility] Gastroentero logy and M Epigastric pain Note: Please schedule patient with provi domonique- persistent abd sx's [facility] depressive dis order, single episode, unspecified [...] domonique- please CC last 2 CT scans [facility] Major depressive dis order, single episode, unspecified Note: Please schedule patient with provi domonique- dx as listed hx poorly controlled A/D with weekly and sometimes daily trips to ER / admission and limited cognitive capacity- case management manager trying to get he into long-term- Antony Cox Future Appointments Date Time Location Provider Chronic Disease Follow-up 10/23/2020 1:00PM [facility] Trang JOVELP Future Tests Order Diagnosis Results Due Ordering Provid er Visit Summary - Standard Visit Visit Summary Standard Visit Ac [facility] vaginitis 05/22/20 Umesh Carvalho ENT SURGEON Findings Encounter Date Ordered return to the clinic if condition worsens or n ew symptoms arise Acute L2 with Aster Santana ENT SURGEON 05/18/2020 Ordered follow-up visit AHR with Trang Panda Kelsea COMMUNICATIONS DESIGNER 2019 Ordered return to the clinic if condition worsens or n ew symptoms arise AHR with Trang Mosqueda Kelsea COMMUNICATIONS DESIGNER 05/01/2020 Return to the clinic if condition worsens or new sympt oms arise AHR with Trang Mosqueda Kelsea COMMUNICATIONS DESIGNER 05/01/2020 Instructions for patient Acute L1 with Aster Santana ENT SURGEON 03/16 Ordered follow-up visit Acute L1 with Aster Santana ENT SURGEON 04/10 Ordered return to the clinic if condition worsens or n ew symptoms arise Acute L1 with Aster Santana ENT SURGEON 04/10/2020 Instructions for patient Acute L3 with [...] IN STABLE CONDITION Emergency with Aster Frausto ENT SURGEON 03/05/2020 Return to the clinic if condition worsens or new sympt oms arise Emergency with Patricia Mclain ENT SURGEON 02/21/2020 Instructions for patient D Emergency with Az katz DO 02/03/2020 Ordered follow-up visit D Emergency with Az Marie DO 02/03/2020 Ordered return to the clinic if condition worsens or n ew symptoms arise D Emergency with Az Marie DO 02/03/2020 Ordered Clinical summary transmitted to referring provider electronically with reasonable certainty of receipt or receiving provider electronically through [email or web address] Telephonic Encounter with Az Marie DO 01/26/2020 Ordered Clinical summary transmitted to referring provider electronically with reasonable certainty of receipt or receiving provider electronically through [employer] Telephonic Encounter with Az Marie DO 12/12/2019 Instructions for patient Emergency with Az Marie DO 12/02/2019 Ordered Clinical summary transmitted to referring provider electronically with reasonable certainty of receipt or receiving provider electronically through [facility] Emergency with Az Marie DO 12/02/2019 Ordered follow-up visit Emergency with Az Savage O 12/02/2019 Ordered return to the clinic if condition worsens or n ew symptoms arise Emergency with Az Marie DO 12/02/2019 Instructions for patient Hospital Follow-up with Az hylton DO 11/21/2019 Ordered Clinical summary transmitted to referring provider electronically with reasonable certainty of receipt or receiving provider electronically through [facility] Follow-up with Az Marie DO 11/21/2019 [...] of receipt or receiving provider electronically through [facility] Telehealth with Az Marie DO 09/08/2019 Ordered [...] of receipt or receiving provider electronically through [facility] Hospital Follow-up with Trang JOVELP 0 Ordered follow-up visit Hospital Follow-up with Trang lindo COMMUNICATIONS DESIGNER 08/18/2019 Ordered return to the clinic if condition worsens or n ew symptoms arise Hospital Follow-up with Trang Enamorado COMMUNICATIONS DESIGNER 08/18/2019 Instructions for patient meds as rx in [place]ase fluids medicate for temp -Can go to the ER if worsening sx Otherwise follow here if not better with tx Walk- In with Anay Rincon ENT SURGEON 06/27/2019 Ordered Clinical summary transmitted to referring provider electronically with reasonable certainty of receipt or receiving provider electronically through [facility] Walk-In with Anay Rincon ENT SURGEON 06/27/2019 Ordered return to the clinic if condition worsens or n ew symptoms arise Walk-In with Anay Rincon ENT SURGEON 06/27/2019 Instructions for patient Hospital Follow-up with Az hylton DO 06/23/2019 Ordered Clinical summary transmitted to referring provider electronically with reasonable certainty of receipt or receiving provider electronically through [facility] Hospital Follow-up with Az Marie DO 06/23/2019 Ordered follow-up visit Hospital Follow-up with Az stephesnon DO 06/23/2019 Ordered return to the clinic if condition worsens or n ew symptoms arise Hospital Follow-up with Az Marie DO 06/23/2019 Ordered Clinical summary transmitted to referring provider electronically with reasonable certainty of receipt or receiving provider electronically through [employer] [facility] Walk-In with Patricia Mclain ENT SURGEON 06/02/2019 Return to the clinic if condition worsens or new sympt oms arise Walk-In with Patricia Mclain ENT SURGEON 06/02/2019 Instructions for patient Follow-up Acute with Az evans DO 05/09/2019 Ordered Clinical summary transmitted to referring provider electronically with reasonable certainty of receipt or receiving provider electronically through [employer] [facility] Follow-up Acute with Az Marie DO 05/09/2019 [...] of receipt or receiving provider electronically through [employer] [facility] Hospital Follow-up with Az Marie DO 05/02/2019 Ordered follow-up visit Hospital Follow-up with Az stephenson DO 05/02/2019 Ordered return to the clinic if condition worsens or n ew symptoms arise Hospital Follow-up with Az Marie DO 05/02/2019 Ordered Clinical summary transmitted to referring provider electronically with reasonable certainty of receipt or receiving provider [facility] Walk-In with Aster SHANE 04/25/2019 Ordered [...] of receipt or receiving provider electronically through [employer] [facility] Establish Care with Az Marie DO 03/15/2019 Ordered follow-up visit Establish Care with Az zepeda DO 03/15/2019 Ordered return to the clinic if condition worsens or n ew symptoms arise Establish Care with Az Marie DO 03/15/2019 Ordered Clinical summary transmitted to referring provider electronically or receiving provider [facility] AHR with Tori Short MD 04/28/2018 Ordered return to the clinic if condition worsens or n ew symptoms arise AHR with Tori Short MD 04/28/2018 Ordered Clinical summary transmitted to referring provider electronically or receiving provider [facility] Walk-In with Ana Boswell DO 01/08/2018 Continue current medication except where otherwise no rosa maria Chronic Disease Follow-up with Tori Short MD 08/13/2017 Ordered Clinical summary transmitted to referring provider electronically or receiving provider [facility] Chronic Disease Follow-up with Tori Short [...] care, clinical sum aster provided electronically through [employer] [facility] Chronic Disease Follow-up with Tori Short [...] care, clinical sum aster provided electronically through [employer] [facility] AHR with Tori Short MD 10/20/2016 [...] fluids (patient to increase p.o. intake) M Day with Yen Garland NP 04/15/2013 Ordered return to the clinic if condition worsens or n ew symptoms arise M Same Day with Yen Garland NP 04/15/2013 Supplies sent home for stool specimen. aware M Sa me Day with Yen Garland NP 03/17/2013 Ordered return to the clinic if condition worsens or n ew symptoms arise M Same Day with Yen Garland NP 03/17/2013 Also recommended A&D ointment for erythema of vagina l area M Same Day with Yen Garland NP 10/20/2012 Ordered a urine culture M Same Day with Yen Garland ENT SURGEON 10/20/2012 Ordered fluids (patient to increase p.o. intake) M Sa me Day with Yen Garland NP 10/20/2012 Ordered urinalysis M Same Day with Yen Garland NP 01/2013 Ordered a urine culture M Same Day with Yen Garland ENT SURGEON 10/07/2012 Ordered fluids (patient to increase p.o. intake) M Sa me Day with Yen Garland NP 10/07/2012 Ordered urinalysis M Same Day with [...] TC to to discuss findings and recommendations [facility] CHILD CHECK with Yen Garland NP 06/24/2011 Ordered influenza virus vaccine Provided VIS and perm ission form today WELL CHILD CHECK with Yen Garland NP 06/24/2011 Ordered return to the clinic if condition worsens or n ew symptoms arise M Same Day with Yen Garland NP 05/20/2011 Ordered return to the clinic if condition worsens or n ew symptoms arise M Same Day with Yen Garland NP 04/29/2011 Ordered return to the clinic if condition worsens or n ew symptoms arise M Same Day with Yen Garland NP 03/12/2011 Ordered return to the clinic if condition worsens or n ew symptoms arise M Same Day with Yen Garland NP 03/10/2011 Ordered return to the clinic if condition worsens or n ew symptoms arise M Same Day with Yen Garland NP 02/20/2011 Recommended otc ear gtts for cerumen - debrox. Will recheck in 1-2 weeks M Acute with Yen Garland NP 05/29/2009 Ordered disposition - Telephone call to to discuss findings and recommendations M Acute with Yen Domenica Gill COULTER 05/29/2009 Ordered follow-up visit in 1-2 weeks M Acute with Yen munoz NP 05/29/2009 Ordered return to the clinic if condition worsens or n ew symptoms arise M Acute with Yen Metzger Gill COULTER 05/29/2009 Assessments Includes: Assessments for all patient encounters Findings Encounter Date Vaginitis Acute Follow-up Well with Aster Santana NP 05/22/2020 Pediculosis Acute L2 with Aster Santana NP 0 Depression - Appears to be doing well today. 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 Also stable in size on CTA from 11/14/19. Can consider imaging in 1 year- November 2020. Patient low risk AHR with Trang JOVELP 05/01/2020 Routine history and physical see [facility] ed problem list above for impression and plan of any problems addressed today. Immunizations reviewed. Tetanus advsied and refused. Flu up to date. Pnuemonia up to date. Shingles after 49. Routine cancer screening reviewed. PAP done today. Mammograms at age 49. Colon screenig at age 49. AHR with Trang JOVELP 05/01/2020 Abdominal pain Acute L1 with Aster Santana NP 0 Dyspnea Acute L1 with Aster Santana NP 0 Major depressive disorder [Patient [...] DO Assessment of dizziness Emergency with Aster Nicholson Eric crum ENT SURGEON 03/05/2020 Cerumen impaction Emergency with Aster Nicholson Kitty stephens ENT SURGEON 03/05/2020 Assessment of dizziness Emergency with Patricia Mclain ENT SURGEON 01/2020 Assessment of dyspnea Emergency with Patricia Mclain ENT SURGEON 2019 Chest pain Emergency with Patricia Mclain ENT SURGEON 02/21/20 20 Intellectual disabilities Emergency with Patricia Mclain ENT SURGEON Suicide risk Emergency with Patricia Mclain ENT SURGEON 02/21/20 Chest pain D Emergency with Az Marie [...] DO 12/02/2019 Depression Hospital Follow-up with Az zepeda DO 11/21/2019 Dizziness Hospital Follow-up with Az zepeda DO 11/21/2019 Lactose intolerance Hospital Follow-up with Az zepeda DO 11/21/2019 Lung neoplasm of uncertain behavior Hospital Follow-up with Az Marie DO 11/21/2019 Pneumonia Hospital Follow-up with Az Amara zepeda DO 11/21/2019 Vasovagal syncope Hospital Follow-up with Az Petersen llo DO 11/21/2019 Depression Telehealth with Az Amara Marie DO 0 09/08/2019 Dizziness Telehealth with Az J Cynthia DO 0 09/08/2019 Lactose intolerance Telehealth with Az Maloney Cynthia DO 0 09/08/2019 Lung neoplasm of uncertain behavior Telehealth with Az Amara Acevedocharlettejulieta DO 09/08/2019 Depression Medication Follow-up with Az Maloney Curtissadie ujulieta DO 08/23/2019 Dizziness Medication Follow-up with Az Maloney Curtissadie ujulieta DO 08/23/2019 Lactose intolerance Medication Follow-up with Az Amara Acevedosadie ujulieta DO 08/23/2019 Lung neoplasm of uncertain behavior Medication Follow- up with Az Amara Marie DO 08/23/2019 Abdominal pain - Ongoing [...] TOMPKINS 08/18/2019 Sinusitis Walk-In with Anay Rincon NP 020 Urinary tract infection Walk-In with Anay Rincon NP Abdominal pain--epigastric Hospital Follow-up with Az Marie DO 06/23/2019 Elevated liver enzymes Hospital Follow-up with Az sawyer DO 06/23/2019 No cyst on the left ovary Hospital Follow-up with Az Marie DO 06/23/2019 Urinary tract infection Hospital Follow-up with Az Morales thomasreesethierry DO 06/23/2019 Abdominal pain Walk-In with Patricia Mclain NP 06/02/2019 Assessment of dizziness Walk-In with Patricia Mclain ENT SURGEON 2018 Chest pain Walk-In with Patricia Mclain ENT SURGEON 06/02/2019 Nausea Walk-In with Patricia Mclain ENT SURGEON 06/02/2019 Abdominal pain--epigastric Follow-up Acute with Az J Carmen stephenson DO 05/09/2019 Elevated liver enzymes Follow-up Acute with Az Amara zepeda DO 05/09/2019 No cyst on the left ovary Follow-up Acute with Az sawyer DO 05/09/2019 Urinary tract infection Follow-up Acute with Az Amara careyo DO 05/09/2019 Abdominal pain--LLQ Hospital Follow-up with Az zepeda DO 05/02/2019 Cyst on the left ovary Hospital Follow-up with Az sawyer DO 05/02/2019 Elevated liver enzymes Hospital Follow-up with Az Amara sawyer DO 05/02/2019 Lung neoplasm of uncertain behavior Hospital Follow-up with Az Amara Marie DO 05/02/2019 Noncardiac chest pain Hospital Follow-up with Az Amara evans DO 05/02/2019 Urinary tract infection Hospital Follow-up with Az Amara stephenson DO 05/02/2019 Abdominal pain after she came back from [facility] now complaining of abdominal and dizziness and [...] Anxiety disorder due to general medical condition Bryce richmond Care with Az Marie DO 03/15/2019 Impaired [...] Assessment of visit for: screening for depression [employer] al[employer]o Disease Follow-up with Tori Short MD [...] Assessment of visit for: screening for depression [employer] Disease Follow-up with Tori Short MD [...] malignant cervi jose neoplasm AHR with Tori Shrot MD 10/20/2016 Club foot AHR with Tori [...] - left hand wound check with Yen L Gill ENT SURGEON 0 09/20/2013 Abscess - left hand - possible fb M Same Day with Yen L Gill ENT SURGEON 09/16/2013 Patient is approved for participation in School, Physical Education, and Sports for 1 year WELL CHILD CHECK with Yen L Gill ENT SURGEON 09/12/2013 Normal routine history and physical adolescent (12 - 1 7) WELL CHILD CHECK with Yen L Gill ENT SURGEON 09/12/2013 Urinary tract infection M Same Day with Yen L Gill ENT SURGEON 04/15/2013 Diarrhea - most likely due to lactose intolerance M Same Day with Yen L Gill ENT SURGEON 03/17/2013 Urinary tract infection M Same Day with Yen L Gill ENT SURGEON 10/20/2012 Urinary tract infection M Same Day with Yen L Gill ENT SURGEON 10/07/2012 Patient is approved for participation in School, Physical Education, and Sports for 1 year WELL CHILD CHECK with Yen L Gill ENT SURGEON 08/19/2012 Normal routine history and physical adolescent (12 - 1 7) WELL CHILD CHECK with Yen L Gill ENT SURGEON 08/19/2012 Patient is approved for participation in School, Physical Education, and Sports for 1 year WELL CHILD CHECK with Yen L Gill ENT SURGEON 06/24/2011 Normal routine history and physical adolescent (12 - 1 8) WELL CHILD CHECK with Yen L Gill ENT SURGEON 06/24/2011 Patient is approved for participation in School, Physical Education, and Sports for 1 year M Acute with Yen L Gill ENT SURGEON 06/24/2010 Normal routine history and physical adolescent (12 - 1 8) M Acute with Yen L Gill ENT SURGEON 06/24/2010 Patient is approved for participation in School, Physical Education, and Sports for 1 year - Adaptive M Acute with Yen L Gill ENT SURGEON 06/20/2009 Normal routine history and physical adolescent (12 - 1 8) M Acute with Yen L Gill ENT SURGEON 06/20/2009 Cerumen impaction M Acute with Yen Garland ENT SURGEON 009 Lactose intolerance 30 minutes with Aster catherine ENT SURGEON 02/13/2009 Seizure disorder 30 minutes with Aster catherine ENT SURGEON 02/13/2009 Instructions Instructions not supported for this document typeNo Instructions Recorded Medical Equipment - Implanted Devices Includes: Current and historical DevicesNo Medical Equipment Recorded Medications Includes: Current and historical Medications Current Medications (continue as prescribed) RID Complete Lice Elimination Combination Kit 05/18/2020 Provider: Aster Santana NP Diagnosis: Pediculosis due to P ediculus humanus capitis as directed Pantoprazole Sodium 40 MG Oral Tablet Delayed [...] tid prn, per discharge medication list dated hydrOXYzine HCl 50 MG Oral Tablet 04/04/2020 Provid er: Diagnosis: 1 tablet by mouth every 6 hours as neede d for anxiety or sleep. Per discharge medication list dated 04/04/2020 Senna 8.6 MG Oral Tablet 04/04/2020 Provider: Diagnosis: 2 tablets at bedtime as needed, per discharge medicati on list dated 04/04/2020 Acetaminophen 325 MG Oral Tablet 04/04/2020 Provide r: Diagnosis: 2 tablets po every 6 hours prn, per discharge medicati on list dated 04/04/2020 Xcamyzsj-Rgzxpilgf-Mxrnujkqznv 200-200-20 MG/5ML Oral Suspen jose miguel 04/04/2020 Provider: Diagnosis: 30ml four times a day before means and a t bedtime, per hospital discharge medication list dated 04/04/2020 Escitalopram Oxalate 10 MG Oral Tablet 03/12/2020 Ester inman: Az Marie DO Diagnosis: Generalized anxiety disorder increased to 1.5 daily Past Medications on file Clotrimazole 3 2% Vaginal Cream 05/14/2020 - 05/18/2020 Prov ider: Aster Santana ENT SURGEON Diagnosis: as directed- apply 1 applicator vaginally [...] to breakfast daily Pantoprazole Sodium 40 MG Oral Tablet Delayed [...] 10 days Misc. Devices Miscellaneous 12/24/2017 - 01/08/2018 Provider : Tori Short MD Diagnosis: Other specified aki enital deformities of feet please dispense 1 pair extra depth shoes with right and left buttress Dx Code Q66.89 Misc. Devices Miscellaneous 12/24/2017 - 12/24/2017 Provider : Tori Short MD Diagnosis: Other specified aki enital deformities of feet as directed Medical Compression Socks Miscellaneous 08/26/2017 - 018 [...] MHG Measure size Apri 0.15-30MG-MCG Oral Tablet 03/11/2017 - 08/13/2017 Provi domonique: Tori Short MD Diagnosis: Dysmenorrhea, unspec ified as directed according to packet instruction: one daily Ferrous Gluconate 324 (37.5 Fe)MG Oral Tablet 03/11/2017 - 0 08/13/2017 Provider: Tori Short MD Diagnosis: Iron deficiency anem ia, unspecified once a day Misc. Devices Miscellaneous 10/23/2016 - 01/08/2018 Provider [...] 04/15/2013 - 04/29/2013 Provid er: Yen Garland ENT SURGEON Diagnosis: Urinary Tract Infect ion Site Not Specified Bactrim DS 800-160 MG OR TABS 10/20/2012 - 03/17/2013 Provid er: Yen Garland ENT SURGEON Diagnosis: Urinary Tract Infect ion Site Not Specified Take one tablet po bid x 2 weeks. Bactrim DS 800-160 MG OR TABS 10/07/2012 - 10/26/2012 Provid er: Yen Garland ENT SURGEON Diagnosis: Urinary Tract Infect ion Site Not Specified Take 1 tab po bid x 3 days. Ibuprofen 200 MG OR TABS 07/19/2010 - 10/07/2012 Provider: Yen Garland NP Diagnosis: LaMICtal 25 MG OR CHEW 06/24/2010 - 09/12/2014 Provider: Diagnosis: Acetaminophen 500 MG OR CAPS 10/24/2009 - 10/07/2012 Provide r: Yen Garland ENT SURGEON Diagnosis: Acetaminophen 500 MG OR CAPS 10/23/2009 - 10/07/2012 Provide r: Yen Garland ENT SURGEON Diagnosis: Acetaminophen 500 MG OR TABS 10/15/2009 - 10/07/2012 Provide r: Yen Garland ENT SURGEON Diagnosis: Headache Ibuprofen 200 MG OR TABS 07/05/2009 - 10/07/2012 Provider: Yen Garland NP Diagnosis: Impacted Cerumen lamoTRIgine 150 MG OR TABS 02/13/2009 - 10/02/2014 Provider: Diagnosis: Misc. Devices MISC 02/13/2009 - 10/07/2012 Provider: Aster Frausto NP Diagnosis: NO DAIRY PRODUCTS TO BE GIVEN AT SCHOOL. PT IS LACTOSE INTOL ERANT. Briefs Medium [facility] [place] 10/07/[place] Provider: Tori Short MD Diagnosis: Bactrim 400-80 MG OR TABS 01/10/2008 - 10/07/2012 Provider: Aster SHANE Diagnosis: Briefs Medium MISC 06/14/2007 - 01/13/2008 Provider: Tori Short MD Diagnosis: Medications Administered Includes: Administered Medications in patient's chart Medications Administered Diagnosis Date Provi domonique Ondansetron 4 MG OR TBDP 06/02/2019 Patricia mccormick ENT SURGEON given S.L. Ibuprofen 200 MG OR TABS 05/20/2011 Yenfidel pagan ENT SURGEON Ondansetron 4 MG OR TBDP 05/09/2019 Az Morales rguello DO Ibuprofen 200 MG OR TABS 04/29/2011 Yenfidel pagan ENT SURGEON Acetaminophen 500 MG OR CAPS 03/12/2011 Yenfidel Garland ENT SURGEON Acetaminophen 500 MG OR CAPS 03/10/2011 Yenfidel Garland ENT SURGEON Ibuprofen 200 MG OR CAPS Headache 02/20/2011 Yen Domenica Gill ENT SURGEON Ibuprofen 200 MG OR CAPS 07/16/2011 Yen Domenica Saeed pagan ENT SURGEON Vital Signs Includes: Vital Signs from 05/22/2019 through 05/22/2020 Vital Name 05/22/2020 01:11P 05/18/2020 08:35A 05/01/2020 12:49P 04/10/2020 05:38P 04/10/2020 05:09P Blood Pressure Sitting L 102/80 134/80 120/78 138/84 140/104 BP Cuff Size Large Large Large Large Pulse Rate-Sitting (bpm) 74 93 70 90 Pulse Rhythm Regular Regular Regular Respiration Rate (breaths/min) 20 17 16 20 Temp-Tympanic (F) 98.9 95.6 100 98.5 Weight (lb) 247 250.8 250 252 Pain Level 0 3 0 3 Oxygen Saturation (%) 98 97 98 99 Flow Rate (l/min) (None (Room Air)) (None (Room Air)) (None (Room Air)) FiO2 (%) 21 21 21 Height (in) 61 Body Mass Index (kg/m2) 47.2 Body Surface Area (m2) 2.08 Vital Name 03/12/2020 08:16A 03/05/2020 12:26P 02/21/2020 04:28P 02/21/2020 04:27P 02/21/2020 04:06P Blood Pressure Sitting L 118/66 125/87 116/70 BP Cuff Size Large Large Large Pulse Rate-Sitting (bpm) 95 96 125 117 120 Pulse Rhythm Regular Respiration Rate (breaths/min) 18 16 16 Temp-Tympanic (F) 100.6 Weight (lb) 250 Pain Level 0 0 0 Oxygen Saturation (%) 98 98 97 98 98 Flow Rate (l/min) (None (Room Air)) (None (Room Air)) (None (Sarahi m Air)) (None (Room Air)) (None (Room Air)) FiO2 (%) 21 21 21 21 21 Temp-Temporal 97.2 97.9 Note: Lap 1 Resting Vital Name 02/03/2020 01:33P 12/12/2019 03:16P 12/02/2019 09:36A 11/21/2019 07:08A 08/23/2019 11:58A Blood Pressure Sitting L 122/80 122/60 127/85 BP Cuff Size Large Large Large Pulse Rate-Sitting (bpm) 133 112 101 113 Respiration Rate (breaths/min) 20 18 20 Temp-Tympanic (F) 98.6 99.9 98 Pain Level 3 0 0 0 Oxygen Saturation (%) 97 96 98 97 Flow Rate (l/min) (None (Room Air)) (None (Ro om Air)) (None (Room Air)) FiO2 (%) 21 21 21 Blood Pressure Standing L 120/77 Blood Pressure Supine L 130/84 Pulse Rate-Standing (bpm) 101 Pulse Rate-Supine (bpm) 99 Note: 1 min post wal cinda 02 Vital Name 08/23/2019 11:57A 08/23/2019 11:06A 08/23/2019 10:51A 08/18/2019 09:19A 08/18/2019 08:57A Blood Pressure Sitting L 116/76 BP Cuff Size Large Large Large Large Pulse Rate-Sitting (bpm) 113 84 83 Pulse Rhythm Regular Regular Respiration Rate (breaths/min) 16 Pain Level 10 Oxygen Saturation (%) 94 98 Flow Rate (l/min) (None (Room Air)) (None (Room Air)) FiO2 (%) 21 21 Pulse Rate-Standing (bpm) 91 Pulse Rate-Supine (bpm) 85 Blood Pressure Sitting R 135/77 140/88 124/86 Blood Pressure Standing R 128/59 142/86 Blood Pressure Supine R 134/79 120/80 Note: walking o2 start orthostatic BP BG-92 supine at 9:10 am pt not c/o dizziness pupils smaller in size sitiing at 9/15am pupils dilated larger in size pt c/o dizzinessstanding at 920 am. pupils still dilated and pt swaying and C/O dizziness Vital Name 08/18/2019 08:27A 06/27/2019 09:42A 06/23/2019 09:39A 06/02/2019 09:50A 06/02/2019 09:15A Blood Pressure Sitting L 110/76 128/86 140/88 BP Cuff Size Large Large Large Large Pulse Rate-Sitting (bpm) 84 106 92 98 Pulse Rhythm Regular Regular Respiration Rate (breaths/min) 18 20 22 22 Temp-Tympanic (F) 99 100.6 99 99.3 Weight (lb) 254 260 259 Pain Level 10 10 8 10 Oxygen Saturation (%) 98 98 98 Flow Rate (l/min) (None (Room Air)) (None (Room Air)) (None (Room Air)) FiO2 (%) 21 21 21 Height (in) 60.75 Body Mass Index (kg/m2) 48.4 Body Surface Area (m2) 2.08 Blood Pressure Sitting R 140/82 Pulse Rhythm Irregular Blood Pressure Sitting (mmHg) 134/82 Results Includes: Results from 05/22/2019 through 05/22/2020 Thin Prep Image Guided [facility] Ordered by Trang TOMPKINS on 05/01/[address] [place] [address], [id number] Collected: 05/01/2020 Reported: 05/13/2020 tel:[phone] See Note Chris None Note: Run: 05/13/20 1329 INTERFACED REPORT Name: Diane Schuler Age/Sex: 25/F Location: [facility] Acct: [id number] Unit: [id number] Status: REG REF Room/Bed: Re05/01/20 Disch: Att Dr: Trang Enamorado Spec Num: [id number] Recd: 05/02/20 Status: COBY Zamarripa Num: [id number] SpType: CYTOLOGY Sub Dr: Trang Enamorado Specimen SubmittedThin Prep Image Guided Z12.72 : Screening vaginal pap smear CERVICAL, LMP 04/10/2020, LR 05/01/2020 Specimen Adequacy Satisfactory for evaluation Endocervical/transformation zone component present. General Categorization Negative for Intraepithelial Lesion or Malignancy Descriptive Diagnosis Fungal Elements Present Consistent with Kirit SP. Predominance of Bacteria Co nsistent with a Shift in Vaginal Denise. Specimen Identification Verified. 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 Reported Physicians [facility] Ordered by Trang TOMPKINS on 05/01/[address] [place] [address], [address] Collected: 05/01/2020 Reported: 05/13/2020 tel:[phone] Reported Physicians See Note None Note: Reported Physicians:Ordering: Devaughn Friedmanending: Trang Enamorado Reviewed by Aster Santana NP on 05/14/20; All test results are final unless otherwise noted. VAGINOSIS (BV) TEST [facility] Ordered by Trang TOMPKINS on 05/01/[address] [place] [address], [address] Collected: 05/01/2020 Reported: 05/02/2020 tel:[phone] KIRIT BY DNA PROBE NEGATIVE (NEGATIVE) None [...] are final unless otherwise noted. Reported Physicians [facility] Ordered by Tragn TOMPKINS on 05/01/[address], [place], [address] Collected: 05/01/2020 Reported: 05/02/2020 tel:[phone] Reported Physicians See Note None Note: Reported Physicians:Ordering: Devaughn Friedmanending: Trang Enamorado Reviewed by Trang TOMPKINS on 04/15; All test results are final unless otherwise noted. COVID 19 (RHEONIX) [facility] Ordered by Az Marie DO on 02/04/[address] [place] [address], [address] Collected: 02/04/2020 Reported: 02/04/2020 tel:[phone] Note: COVID Reason [place] Admission Priority COVID 19 (RHEONIX) NOT-DETECTED (NOTDETECTED) None Note: The [employer] COVID-19 MDx Assay is an endpoint RT-PCR assay intended for the qualitative detection of nucleic acid from SARS-CoV-2 in nasopharyngeal swabs. COVID testing using the [employer] analyzer was developed for the purpose of [...] are final unless otherwise noted. Reported Physicians [facility] Ordered by Az Marie DO on 02/04/[address] [place] [address], [address] Collected: 02/04/2020 Reported: 02/04/2020 tel:[phone] Reported Physicians See Note None Note: Reported Physicians:Ordering: Az Duranending: Yaakov Almanzaritting: Cynthia Almanzaropy To: FABIAN DOWNS Reviewed by Az Marie DO on ; All test results are final unless otherwise noted. Glucose [facility] Ordered by Az Marie DO on 12/02/2019 Specimen Source: Whole blood Collected: 12/02/2019 R eported: 12/02/2019 Glucose Level 103 N (Normal) Reviewed on 12/02/2019; All test result s are final unless otherwise noted. Glucose [facility] Ordered by Az Marie DO on 12/02/2019 Specimen Source: Whole blood Collected: 12/02/2019 R eported: 12/02/2019 Glucose Level 109 N (Normal) Reviewed on 12/02/2019; All test result s are final unless otherwise noted. Glucose [facility] Ordered by Az Marie DO on 11/21/2019 Specimen Source: Whole blood Collected: 11/21/2019 R eported: 11/21/2019 Glucose Level 105 A (Abnormal) Reviewed on 11/21/2019; All test result s are final unless otherwise noted. CBC w/ Auto Diff [facility] Ordered by Az Marie DO on 08/23/[address], [address] Collected: 08/23/2019 Reported: 08/23/2019 tel:[phone] BASO # (AUTO) 0.06 3/uL (0.00-0.20) N [...] final unless otherwise noted. HCG QUALITATIVE SPECIMEN [facility] Ordered by Az Marie DO on 08/23/[address] [place] [address], [address] Collected: 08/23/2019 Reported: 08/23/2019 tel:[phone] HCG QUALITATIVE SPECIMEN SERUM None Note: Responsible Observer: HCG QL SPECI MEN HCG QUALITATIVE 300.23310 (A) Reviewed by Az Marie DO on ; All test results are final unless otherwise noted. *HCG QUALITATIVE SERUM [facility] Ordered by Az Marie DO on 08/23/[address] [place] [address], [address] Collected: 08/23/2019 Reported: 08/23/2019 tel:[phone] HCG RESULT,S NEGATIVE None Note: Reference range is Negative "Extreme" early may have low levels of HCG present. If is suspected, repeat testing with a new specimen in 48-72 hoursResponsible Observer: HCG RESULT,S HCG RESULT,S 300.6001 (A) Reviewed by Az Marie DO on ; All test results are final unless otherwise noted. COMPREHENSIVE METABOLIC PANEL [facility] Ordered by Az Marie DO on 08/23/[address] [place] [address], [address] Collected: 08/23/2019 Reported: 08/28/2019 tel:[phone] Note: Has Patient Fasted For The Past [...] are final unless otherwise noted. GLYCOSYLATED HGBA1C [facility] Ordered by Az Marie DO on 08/23/[address] [place] [address], [address] Collected: 08/23/2019 Reported: 08/28/2019 tel:[phone] Note: Has Patient Fasted For The Past 12 Hours? N Has Patient Fasted For The Past 12 Hours? Y GLYCOSYLATED HGBA1C 5.1 % (4.1-6.5) N (Normal) Note: Responsible Observer: HGB A1C GLYC OSYLATED HGBA1C 300.0800 (A) Reviewed by Az Marie DO on ; All test results are final unless otherwise noted. LIPID PANEL [facility] Ordered by Az Marie DO on 08/23/[address] [place] [address], [address] Collected: 08/23/2019 Reported: 08/28/2019 tel:[phone] Note: Has Patient Fasted For The Past [...] results are final unless otherwise noted. TSH [facility] Ordered by Az Marie DO on 08/23/[address] [place] [address], [address] Collected: 08/23/2019 Reported: 08/28/2019 tel:[phone] Note: Has Patient Fasted For The Past [...] are final unless otherwise noted. Reported Physicians [facility] Ordered by Az Marie DO on 08/23/[address] [place] [address], [address] Collected: 08/23/2019 Reported: 08/28/2019 tel:[phone] Reported Physicians See Note None Note: Reported Physicians:Ordering: Az Duranending: Az Marie Reviewed by Az Marie DO on ; All test results are final unless otherwise noted. Strep Test [facility] Ordered by Trang Enamorado [facility] on 08/18/2019 Collected: 08/18/2019 Reported: 08/18/2019 Throat Swab negative N (Normal) Reviewed on 08/18/2019; All test result s are final unless otherwise noted. URINALYSIS [facility] Ordered by Anay Rincon NP on 06/27/[address] [place] [address], [address] Collected: 06/27/2019 Reported: 06/27/2019 tel:[phone] Note: N URINE EPITH MANY PER/LPF (FEW-MOD) None Note: Responsible Observer: UR EPITH URI NE EPITH 200.1155 (A) APPEARANCE,UR SL CLOUDY (CLEAR) None Note: Responsible Observer: UR APPEAR UR APPEARANCE 200.0250 (A) BACTERIA,UR RARE PER_HPF (NONE) None Note: Responsible Observer: UR BACT UR B ACTERIA 200.1755 (A) BILIRUBIN,UR NEGATIVE (NEGATIVE) None Note: Responsible Observer: UR BILI UR B ILIRUBIN 200.0750 (A) COLOR,UR YELLOW (YELLOW) None Note: Responsible Observer: UR COLOR UR COLOR 200.0200 (A) GLUCOSE, UR NEGATIVE MG/DL (NEGATIVE) None Note: Responsible Observer: UR GLU UR GL UCOSE 200.0500 (A) KETONES,UR NEGATIVE MG/DL (NEGATIVE) None Note: Responsible Observer: UR KETO UR K ETONES 200.0600 (A) LEUKOCYTE ESTERASE ,UR NEGATIVE (NEGATIVE) None Note: Responsible Observer: UR DORA EDDIE ASE UR LEUKOCYTE ESTERASE 200.0725 (A) MUCUS,UR RARE PER_HPF (NONE SEEN) None Note: Responsible Observer: UR MUCUS UR MUCUS 200.2300 (A) NITRATE,UR NEGATIVE (NEGATIVE) None Note: Responsible Observer: UR NIT UR NI TRATE 200.0700 (A) OCCULT BLOOD,UR LARGE (NEGATIVE) A (Abnormal) Note: Responsible Observer: UR OCLT BLD UR OCCULT BLOOD 200.0650 (A) PH,UR 5.0 (5.0-8.0) None Note: Responsible Observer: UR PH UR PH 200.0350 (A) PROTEIN,UR NEGATIVE MG/DL (NEGATIVE) None Note: Responsible Observer: UR PROT UR P ROTEIN 200.0450 (A) RBC,UR 1-2 PER_HPF (0-2) None Note: Responsible Observer: UR RBC UR RB C 200.1005 (A) SPECIFIC GRAVITY,UR 1.017 (1.002-1.035) N (Normal) Note: Responsible Observer: SG URINE SPE CIFIC GRAVITY,UR 200.0410 (A) UROBILINOGEN,UR 0.2-1.0 EU_MG/DL (NEG-0-1.0) None Note: Responsible Observer: UR URO UR UR OBILINOGEN 200.0900 (A) WBC,UR 5-9 PER_HPF (<5) A (Abnormal) Note: Responsible Observer: UR WBC UR WB C 200.1055 (A) Reviewed by Anay Rincon NP on 06/29; All test results are final unless otherwise noted. URINE CULTURE [facility] Ordered by Anay Rincon NP on 06/27/[address], [address] Collected: 06/27/2019 Reported: 06/29/2019 tel:[phone] See Note Chris None Note: Run: 06/29/19 0816 INTERFACED REPORT Name: Moe Schulernawaf Mosqueda Age/Sex: 24/F Location: [facility] Acct: [id number] Unit: [id number] Status: REG REF Room/Bed: Re06/27/19 Disch: Att Dr: Anay Rincon NP Specimen #: [id number] Ordered : 06/27/19 Collected : 06/27/19 By: OFFICE Received: 06/27/19 By: BONI Source: URINE CC Specimen Description: Comments: N Y Has been collected UCC Procedure Result COLONY COUNT Final COLONY COUNT LESS THAN 1,000 CFU/ML URINE CULTURE Final NO GROWTH 18 HOURS NO SIGNIFICANT GROWTH 42 HOURS URINE CULTURE Preliminary (Corrected) NO GROWTH 18 HOURS END OF REPORT Reviewed by Anay Rincon NP on 06/29; All test results are final unless otherwise noted. Reported Physicians [facility] Ordered by Anay Rincon NP on 06/27/[address] [place] [address], [address] Collected: 06/27/2019 Reported: 06/29/2019 tel:[phone] Reported Physicians See Note None Note: Reported Physicians:Ordering: Anay Reyes IAttending: Anay Rincon Reviewed by Anay Rincon NP on 06/29; All test results are final unless otherwise noted. History of Present Illness History of Present Illness not supported for this document typeNo History of Present Illness Recorded Social History Description Last Updated Alcohol use 09/08/2019 Denies alcohol consumption 01/2020 No secondhand cigarette smoke exposure 05/22/2020 No violent traumatic event 05/22/2020 Not avoiding thoughts, feelings, or disc ussions related to stressful experience from past 05/22/2020 Not using drugs 09/08/2019 05/22/2020 Smoking status 05/01/2020 : Never smoker 05/22/2020 Procedures and Surgical/Medical History Includes: Procedures from 05/22/2019 through 05/22/2020 Procedures CPT-4 Diagnosis Performing Provider Service Location Service Date Immunization Administration (includes Percutaneous, [place] 70617 Encounter for immunization [facility] 03/12/2020 Influenza virus vaccine, preservative free, 6 months and up 589[address] Encounter for immunization [facility] 03/12/2020 Removal of impacted cerumen using irrigation 83001 Imp acted cerumen, bilateral Aster Nicholson Lisbet [facility] 03/05/2020 Ekg With Interpretation and Report [id number] Chest pain, u nspecified Patricia Mclain [facility] 02/21/2020 Ekg With Interpretation and Report [id number] Chest pain, u nspecified [facility] 02/03/2020 Glucose, Blood by Glucose [place] [id number] Dizziness and giddiness [facility] 12/02/2019 Ekg With Interpretation and Report [id number] Syncope and c ollapse [facility] 11/21/2019 Noninvasive Ear or Pulse Oximetry for Ox ygen Saturation; Mul (distinct separate procedure) 84961 Dizziness and giddiness [facility] 08/23/2019 Ekg With Interpretation and Report 39895 Dizziness and giddiness [facility] 08/23/2019 Urinalysis, by Dip Stick or Tablet Reagent for Bilirubin, Gl [address]359 Unspecified abdominal pain Trang Mosqueda Kelsea [facility] 08/18/2019 Rapid Strep Test (QW) 84774 Acute pharyngitis, unspecified J ill Panda Kelsea [facility] 08/18/2019 Urinalysis, by Dip Stick or Tablet Reagent for Bilirubin, Gl (QW) 33069 Urinary tract infection, site not specified Anay Rincon [facility] 06/27/2019 Ekg With Interpretation and Report [id number] Chest pain, u nspecified Patricia Mclain [facility] 06/02/2019 Glucose, Blood by Glucose Monitoring [place] [address] Unspecified abdominal pain Patricia Mclain NP [facility] 06/02/2019 Periodic Oral Evaluation, [facility] D0120 En counter for dental exam and cleaning w/o abnormal findings Jere Simpson [facility] 9 intraoral-periapical first radiographic image D0220 Encounter for dental exam and cleaning w/o abnormal findings Viet Deborah Calvin [facility] 05/27 Limited Oral Evaluation D0140 Encounter for de ntal exam and cleaning w/o abnormal findings Jere Simpson [facility] 05/27/2019 Surgical History Last Updated History of midfoot capsulotomy and poste rior release with tendon lengthening bette, Dr Blackwell, childhood, for club foot bilat 05/22/2020 Medical History Last Updated Past medical history -Please see Problem List for Act [place] Chronic Problems 05/22/2020 Family History Includes: Family History in patient's chart Description Last Updated Family history of diabetes mellitus father 0 Family history of heart disease father 05/22/2020 Family history of hypertension father 05/22/2020 Family history of not using drugs - family history Maternal history of depression 05/22/2020 Maternal history of not using drugs 05/22/2020 No family history of depression - family history 01/2020 No paternal history of depression 05/22/2020 Paternal history of not using drugs 05/22/2020 Review of Systems Review of Systems not supported for this document typeNo Review of Systems Recorded Mental Status Mental Status not supported for this document type Description Oriented to time, place, and person Not avoiding thoughts, feelings, or disc ussions [...] Upper Left Arm Complete (Administered) [facility] 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: 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- [employer] Hep B 1 1994 Complete (Reported) [...] inactive, and resolved Allergies Substance Type Reaction Effective Status Penicillins Allergy Skin Rashes, Hives 01/10/2008 Active Encounters Includes: Encounters from 05/22/2019 through 05/22/2020 Encounter Provider Location Date Diagnosis Acute Follow-up Well Aster Santana [facility] 05/22/2020 Vaginitis Acute L2 Aster Santana [facility] 05/18/2020 Pediculo sis Medication Order Aster Santana NP 05/14/2020 AHR Trang Enamorado [facility] 05/01/2020 Rout ine History and Physical, Depression, Lung Neoplasm Uncertain Behavior Chart Prep Trang Enamorado [facility] 04/24/2020 Acute L1 Aster Santana [facility] 04/10/2020 Abdomina l Pain, Difficulty Breathing (dyspnea) [facility] De pression, Generalized Anxiety Disorder, Obesity Morbid Emergency Aster Mujicaanagan [facility] 03/05/20 20 Assessment of Dizziness, Cerumen Impaction Emergency Az Marie 03/02/2020 Correspondence Radha Etienne EVP/[facility], [place] 0 Emergency Patricia Mclain [facility] 02/21/2020 Suicide Risk, Chest Pain, Intellectual Disabilities, Assessment of Dizziness, Assessment of Difficulty Breathing (dyspnea) Referral Order Az Marie 02/13/2020 D Emergency Az Marie [facility] 02/03/2020 Ch est Pain, Depression, Lung Neoplasm Uncertain Behavior, Lactose Intolerance Telephonic Encounter Az Marie [facility] 020 Depression, Lung Neoplasm Uncertain Behavior, Lactose Intolerance Telephonic Encounter Az Marie [facility] 020 Dizziness, Depression, Lung Neoplasm Uncertain Behavior, Lactose Intolerance Correspondence Az Hernandezjulieta 12/07/2019 Emergency Azbrit Marie [facility] 12/02/2019 As sessment of Dizziness Lab Order Az J Curtischarlettejulieta 11/25/2019 Hospital Follow-up Azbrit Hernandezjulieta [facility] 0 Dizziness, Depression, Lung Neoplasm Uncertain Behavior, Lactose Intolerance, Vasovagal Syncope, Pneumonia Telehealth Az J Curtischalrettejulieta 09/08/2019 Dizzi ness, Depression, Lung Neoplasm Uncertain Behavior, Lactose Intolerance Telehealth Az J Curtischarlettejulieta [facility] 09/08/2019 Correspondence Az J Curtischarlettejulieta 09/05/2019 Chart Prep Az J Curtischarlettejulieta 09/02/2019 Correspondence Radha Etienne [facility], [place] 0 [facility] Dizziness, Depression, Lactose Intolerance, Lung Neoplasm Uncertain Behavior Hospital Follow-up Trang Enamorado [facility] 08/18/2019 Abdominal Pain, Dizziness, Pharyngitis Correspondence Az J Curtischarlettejulieta 08/16/2019 Referral Order Az J Curtischarlettejulieta 06/29/2019 Walk-In Anay Rincon [facility] 06/27/2019 Sinus itis, Urinary Tract Infection Hospital [facility] [place] [facility] Urinary Tract Infection, Ovarian Cyst Left, Abdominal Pain--epigastric, Elevated Liver Enzymes Walk-In Patricia Mclain [facility] 06/02/2019 Abdomina l Pain, Nausea, Chest Pain, Assessment of Dizziness [Patient Encounter] Jere Simpson DDS [facility] 05/27/2019 Insurance Includes: Active Insurance Policies Plan Name Member ID Group # Subscriber Relationship Effective Da alin 1 - [facility] Medicaid [id number] Diane Crawford f 06/15/2017 - Unknown 2 - [facility] Medicaid [id number] Diane savage Self Advance Directives Includes: Current Advance Directives Directive Pat Aware Third Green Party Effective Date Reviewed Status packet given [...] with your medicaid managed car e case management manager, Evelia.You have stopped going to [facility].Guardianship has been discussed with grandmother, I have [...] diabetesmoniter. Paperwork will be sent to the appropriat e place.PPD was done today and needs [...] Depression screening is recommended by violette menard [facility], and your screening did not show current [...]
--- OUTSIDE RECORDS SUMMARY | 2020-07-25 11:15 | CCD | Summary of Care ---
Author Author [facility] Organization [facility] Address Unknown Phone Unavailable Care Team Providers Care Carbon Furnace Operator Name Role Phone Az Marie DO PCP Reason for Visit * Reason Comments Abdominal Pain Encounter Details Care Team Description Date Type Department Jac Nuñez II, [address] [place] [address] [phone] Periumbilical abdominal pain (Primary Dx ) 05/09/2020 [facility] [address] [place] [address] Allergies Comments Active Allergy Reactions Severity Noted Date Says doesn't know Penicillins Hives, Other 06/02/2019 (See Comments) documented as of this encounter (statuses as of 05/09/2020) Medications End Date Status Medication Sig Dispensed Refills Start Date Active Senna 8.6 MG Oral Tablet Take 2 120 each 0 0 tablets by 0 mouth nightly as needed Active Acetaminophen 325 MG Oral Take 650 mg 0 Tablet by mouth every 6 (six) hours as needed Active Cyclobenzaprine HCl 10 MG Take 10 mg by 0 Oral Tablet (FLEXERIL) mouth Three times daily as needed 02/14/2021 Active Pantoprazole Sodium 40 MG Take 1 tablet 14 tablet 0 Oral Tablet Delayed by mouth 0 Release (PROTONIX) every morning before breakfast Active Fggfglus-Qpwdwtmam-Mtjyry Take 30 mLs 710 mL 0 icone 200-200-20 MG/5ML by mouth Four 0 Oral Suspension (MAALOX) times daily before meals and nightly 07/03/2020 Active Escitalopram Oxalate 10 Take 1 tablet 30 tablet 2 MG Oral Tablet (LEXAPRO) by mouth 0 daily documented as of this encounter (statuses as of 05/09/2020) Active Problems Patient Care Coordination Note Please note - patient is NOT homeless and is resourceful, she knows what to say to trigger admission. Consider doing a psychiatric eval in the ED as this patient does not typically benefit from acute inpatient psychiatric admission. Patient has been identified as an MVP. She resides with her grandmother, Sadie Schuler [phone]. She is [facility] connected and her career education teacher is Antony Cox from [facility] [phone] When patient requires transportation, please request female hazardous materials tanker driver Please ask patient Drivers of Utilization Questions with each encounter. Patient is connected to: [facility] [address] [place] [address] | Problem Noted Date Morbid obesity 02/11/2020 Homelessness 02/11/2020 Headache 02/02/2020 Severe episode of recurrent major depressive disorder 02/02/2020 Homicidal ideation 02/02/2020 Malingering 02/02/2020 At risk for unsafe behavior 02/01/2020 Suicidal ideations 02/01/2020 Suicidal ideation 01/30/2020 Pneumonia of left lower lobe due to infectious organi sm 11/15/2019 Dehydration 11/15/2019 Syncope 11/14/2019 documented as of this encounter (statuses as of 05/09/2020) Resolved Problems Problem Noted Date Resolved Date Diffuse abdominal pain 02/13/2020 02/17/2020 Transaminitis 02/11/2020 02/17/2020 documented as of this encounter (statuses as of 05/09/2020) Social History Date Tobacco Use Types Packs/Day Years Used Never Smoker Smokeless Tobacco: Never Used Drinks/Week oz/Week Comments Alcohol Use Not Currently Alcohol Habits Answer Date Recorded How often do you have a drink containing alcohol? Never 08/15/2019 How many drinks containing alcohol do you have on No t asked a typical day when you are drinking? How often do you have six or more drinks on one Not asked occasion? Education Answer Date Recorded What is the highest level of school you have High school g raduate 01/30/2020 completed or the highest degree you hav e received? Financial Resource Strain Answer Date Recorde d How hard is it for you to pay for the very basics Not very hard 01/30/2020 like food, housing, medical care, and h eating? Food Insecurity Answer Date Recorded Within the past 12 months, you worried that your Never luli e 01/30/2020 food would run out before you got money to buy more. Within the past 12 months, the food you bought Never true 01/30/2020 just didn't last and you didn't have mo mendez to get more. Transportation Needs Answer Date Recorded In the past 12 months, has lack of transportation No 01/30/2020 kept you from medical appointments or f rom getting medications? In the past 12 months, has lack of transportation No 01/30/2020 kept you from meetings, work, or gettin g things needed for daily living? Sex Assigned at Date Recorded Not on file Date Recorded COVID-19 Exposure Response 05/09/2020 11:34 AM EST In the last month, have you been in contact with No / Unsure someone who was confirmed or suspected to have Coronavirus / COVID-19? documented as of this encounter Last Filed Vital Signs Reading Time Taken Comments Vital Sign 139/90 05/09/2020 3:46 PM EST Blood Pressure 84 05/09/2020 3:46 PM EST Pulse 36.4 C (97.5 F) 05/09/2020 3:46 PM EST Temperature 18 05/09/2020 3:46 PM EST Respiratory Rate 97% 05/09/2020 3:46 PM EST Oxygen Saturation - - Inhaled Oxygen Concentration - - Weight - - Height - - Body Mass Index documented in this encounter Discharge Instructions * Instructions* Lobito Rowe MD - 05/09/2020 Follow-up with your primary care doctor. Take ibuprofen/Tylenol as needed for p ain. * Attachments The following attachments cannot be sent through Care Everywhere.* Abdominal Pain, Adult (Welsh) documented in this encounter Consult Notes * Cele Puckett LMSW - 05/09/2020 3:41 PM EST Social Work Brief Screen Patient Name: Diane Schuler Pronoun Date of : 1995 County of Residence: [place] Admitting Dx: No admission diagnoses are documented for this encounter. Admittin g Provider: Jac Nuñez II, DO Referral Type: ED Referral Source: Social Work Reason for Referral: Safe discharge Date: May 09, 2020 Emergency Contacts Name: sadie Schuler Grandparent Address: [address] [facility] [address] Home: Work: Mobile: Primary Caregiver: self Informant(s): Patient Authorized to Consent: self Social Work Note: TRISH consulted to meet with Diane because she is stating that she does not want to return with grandma. TRISH met with Diane bedside and asked why she did not want to return to her grandmother's house. She stated "I don't know, I just don' t". TRISH reviewed options for her such as friends and family she could stay with. TRISH confirmed with Diane that she was cleared for discharge by the physicians. It is Diane's history of presentation to not want to be discharged. TRISH called Diane's porter sample case Antony Cox [phone] who confirmed that she h ad a safe place to return to with grandma or with her aunt Kianna who lives in [facility]. He stated that Diane and him had just talked about her high use of care facilities and a behavioral plan with her nurse and care team. No other concerns at this time. Bedside nurse confirmed with Diane that she wanted to go to her aunts at [address] [facility] in [place]. Cele Puckett LMSW ED [phone] (pager) [phone] ( cell) documented in this encounter ED Notes * Xin Mora RN - 05/09/2020 3:49 PM EST Cele manager social arranged transport to pt aunts house. * Xin Mora RN - 05/09/2020 2:58 PM EST RN went to discharge patient, pt states she has no where to go that she is homel ess. When asked about going to her grandmothers house, pt states "I don't want t o go back there". Patient states "I want to go to a homeless halfway". Tamela l eft on social work vocera * Luis Villalobos RN - 05/09/2020 11:38 AM EST Pt having LLQ pain that radiates into her back. 310 pain. Denies fevers. * Gal Corona RN - 05/09/2020 11:38 AM EST Patient is a frequent ED visitor including EMS arrival last night from [facility] for a leg abrasion complaint. documented in this encounter Plan of Treatment Health Maintenance Due Date Last Done Comments DTaP,Tdap,and Td Vaccines 2005 08/17/2006, (6 - Tdap) 02/16/1999, 06/04/1995, Additional history exists Varicella Vaccines (2 of 05/29/2005 03/06/2005 2 - 2-dose childhood series) Cervical Cancer Screening 2015 3 years Influenza Vaccine 03/15/2020 03/12/2020, 03/15/2019, 04/28/2018, Additional history exists Pneumococcal Vaccine: 65+ 2059 Years (1 of 1 - PPSV23) HIB Vaccines Completed 06/04/1995, 04/04/1995, 1994, Additional history exists IPV Vaccines Completed 02/16/1999, 1994, 1994, Additional history exists MMR Vaccines Completed 02/16/1999, 06/04/1995 Hepatitis B Vaccines Completed 10/30/2004, 1995, 1994, Additional history exists HPV Vaccines Completed 02/13/2009, 10/28/2006, 08/17/2006 HIV Screening Completed 01/31/2020, 11/15/2019 Hepatitis A Vaccines Aged Out No longer eligibl e based on patient's age to complete this topic Pneumococcal Vaccine: Aged Out No longer eligib le based on patient's age to Pediatrics (0 to 5 Years) complete this topic and At-Risk Patients (6 to 64 Years) documented as of this encounter Procedures Comments Procedure Name Priority Date/Time Associated Diag nosis HCG, URINE QUALITATIVE Routine 05/09/2020 12:51 PM EST documented in this encounter Results * HCG, Urine Qualitative (05/09/2020 12:51 PM EST) HCG, Urine NegativeComment: NEGATIVE: Negative [facility] Qualitative either no HCG or too low to [facility] detect, <20 mU/mL Pathology Specific 1.030 1.003 - 1.030 [facility], Urine [facility] Pathology Specimen Urine Performing Organization Address [place] [facility] CL[facility] [address] [place], [place] [address] PATHOLOGY [facility] [address] [place], [place] [address] Clin Pathology documented in this encounter Visit Diagnoses Diagnosis Periumbilical abdominal pain - Primary Abdominal pain, periumbilic documented in this encounter Administered Medications Action Date Dose Rate Site Medication Order MAR Action 05/09/2020 12:56 PM EST 975 mg acetaminophen (TYLENOL) tablet 975 mg Given 975 mg, Oral, Once, Thu05/09/20 at 1300, For 1 dose, Maximum daily dose of acetaminophen is 3,000 mg from all sources in 24 hours., 05/09/2020 1:59 PM EST 30 mg Left Del toid ketorolac (TORADOL) 30 MG/ML injection Given 30 mg 30 mg, Intramuscular, Once, Thu 0 at 1400, For 1 dose documented in this encounter
--- OUTSIDE RECORDS SUMMARY | 2020-07-25 11:15 | CCD | Summary of Care ---
Author Author [facility] Organization [facility] Address Unknown Phone Unavailable Care Team Providers Care Banana Carrier Name Role Phone Az Marie DO PCP Reason for Visit * Reason Comments Shortness of Breath Encounter Details Care Team Description Date Type Department Jorge Darden MD [address] [place], [place] [address] Shortness of breath (Primary Dx) 05[facility]17[facility]2020 [facility] [address] [facility] 05/18/2020 [place] [address] Allergies Comments Active Allergy Reactions Severity Noted Date Says doesn't know Penicillins Hives, Other 06/02/2019 (See Comments) documented as of this encounter (statuses as of 05/18/2020) Medications End Date Status Medication Sig Dispensed [...] Release (PROTONIX) every morning before breakfast Active Vkyzskcq-Mazcwyqfg-Nrsyfx Take 30 mLs 710 mL 0 icone 200-200-20 MG/5ML by mouth Four 0 Oral Suspension (MAALOX) times daily before meals and nightly 07/03/2020 Active Escitalopram Oxalate 10 Take 1 tablet 30 tablet 2 MG Oral Tablet (LEXAPRO) by mouth 0 daily documented as of this encounter (statuses as of 05/18/2020) Active Problems Patient Care Coordination Note Please note - patient is NOT homeless and is resourceful, she knows what to say to trigger admission. Consider doing a psychiatric eval in the ED as this patient does not typically benefit from acute inpatient psychiatric admission. Patient has been identified as an MVP. She resides with her grandmother, Sadie Schuler [phone]. She is [employer] connected and her child care worker is Antony Cox from [facility] [phone] When patient requires transportation, please request female dedicated regional driver Please ask patient Drivers of Utilization Questions with each encounter. Patient is connected to: [place] [id number] | Problem Noted Date Morbid obesity 02/11/2020 Homelessness 02/11/2020 Headache 02/02/2020 Severe episode of recurrent major depressive disorder 02/02/2020 Homicidal ideation 02/02/2020 Malingering 02/02/2020 At risk for unsafe behavior 02/01/2020 Suicidal ideations 02/01/2020 Suicidal ideation 01/30/2020 Pneumonia of left lower lobe due to infectious organi sm 11/15/2019 Dehydration 11/15/2019 Syncope 11/14/2019 documented as of this encounter (statuses as of 05/18/2020) Resolved Problems Problem Noted Date Resolved Date Diffuse abdominal pain 02/13/2020 02/17/2020 Transaminitis 02/11/2020 02/17/2020 documented as of this encounter (statuses as of 05/18/2020) Social History Date Tobacco Use Types Packs/Day [...] on file Date Recorded COVID-19 Exposure Response 05/17/2020 2:10 PM EST In the last month, have you been in contact with No / Unsure someone who was confirmed or suspected to have Coronavirus / COVID-19? documented as of this encounter Last Filed Vital Signs Reading Time Taken Comments Vital Sign 135/72 05/18/2020 2:06 AM EST Blood Pressure 88 05/18/2020 2:06 AM EST Pulse 36 C (96.8 F) 05/18/2020 2:06 AM EST Temperature 18 05/18/2020 2:06 AM EST Respiratory Rate 99% 05/18/2020 2:06 AM EST Oxygen Saturation - - Inhaled Oxygen Concentration 113.2 kg (249 lb 9.6 oz) 05/17/2020 2:14 PM EST Weight 162.6 cm (5' 4") 05/17/2020 2:14 PM EST Height 42.84 05/17/2020 2:14 PM EST Body Mass Index documented in this encounter Discharge Instructions * Instructions* Jorgito Martino MD - 05/18/2020 You are not having any urinary symptoms, you tolerated a meal and your belly is soft and non-tender on our exam. We performed a non-rapid COVID and please self- isolate until it returns negative. Your chest X-ray was normal. Please continue to take your protonix as prescribed . documented in this encounter ED Notes * Michael Gu RN - 05/17/2020 2:19 PM EST Dina Davis SW notified of her arrival. * Saadia Riddle RN - 05/17/2020 2:12 PM EST Patient reports difficulty breathing while walking [facility] the road. [facility] documented in this encounter Plan of Treatment Date/Time Name Type Priority Associated Diag noses 05/18/2020 2:08 AM EST COVID-19 PCR Microbiology Routine 05/18/2020 2:08 AM EST Respiratory Pathogen Microbiology Routine Panel Order Schedule Name Type Priority Associated Diag noses Once for 1 Occurrences starting 05/18/20 20 until 05/18/2020 COVID-19 PCR Microbiology Routine Once for 1 Occurrences starting 05/18/20 20 until 05/18/2020 Respiratory Pathogen Microbiology Routine Panel Health Maintenance Due Date Last Done Comments [...] Procedure Name Priority Date/Time Associated Diag nosis XR CHEST FRONTAL ONLY STAT 05/18/2020 53181 1:02 AM EST documented in this encounter Results * XR Chest Frontal Only (05/18/2020 1:02 AM EST) Specimen Narrative Performed At PROCEDURE INFORMATION: [facility] Exam: XR Chest, 1 View Exam date and time: 05/18/2020 1:02 AM Age: 25 years old Clinical indication: Chest pain; Additi onal info: SOB TECHNIQUE: Imaging protocol: XR of the chest Views: 1 view. COMPARISON: CR XR CHEST FRONTAL AND LATERAL [id number] 1 7:34 PM FINDINGS: Lungs: Unremarkable. No consolidation. Pleural space: Unremarkable. No pleural effusion. No pneumothorax. Heart/Mediastinum: Unremarkable. No car diomegaly. Bones/joints: There is stable mild scol iosis. IMPRESSION: 1. There is no focal air space disease. 2. No acute cardiopulmonary disease. THIS DOCUMENT HAS BEEN ELECTRONICALLY S IGNED BY YELITZA FRAZIER MD Procedure Note Interface, Received Via [employer] - 05/18/2020 1:08 AM EST PROCEDURE INFORMATION: Exam: XR Chest, 1 View Exam date and time: 05/18/2020 1:02 AM Age: 25 years old Clinical indication: Chest pain; Additional info: SOB TECHNIQUE: Imaging protocol: XR of the chest Views: 1 view. COMPARISON: CR XR CHEST FRONTAL AND LATERAL [id number] 03/29/2020 7:34 PM FINDINGS: Lungs: Unremarkable. No consolidation. Pleural space: Unremarkable. No pleural effusion. No pneumothorax. Heart/Mediastinum: Unremarkable. No cardiomegaly. Bones/joints: There is stable mild scoliosis. IMPRESSION: 1. There is no focal air space disease. 2. No acute cardiopulmonary disease. THIS DOCUMENT HAS BEEN ELECTRONICALLY SIGNED BY YELITZA FRAZIER MD Performing Organization Address City/State/Zipcode Ph one Number [facility] [address] [place] [address] documented in this encounter Visit Diagnoses Diagnosis Shortness of breath - Primary documented in this encounter Administered Medications Action Date Dose Rate Site Medication Order MAR Action 05/18/2020 1:03 AM EST 650 mg acetaminophen (TYLENOL) tablet 650 mg Given 650 mg, Oral, Once, Thu05/18/20 at 0045 , For 1 dose, Maximum daily dose of acetaminophen from all sources 75 mg/kg/day., documented in this encounter Additional Health Concerns Last Indicated Resolved Time Infection Onset Date 05/18/2020 COVID-19 Rule-Out 05/18/2020 05/18/2020 Respiratory Rule-Out 05/18/2020 documented as of this encounter
--- OUTSIDE RECORDS SUMMARY | 2020-07-25 11:15 | CCD ---
Author Author [facility] Organization [facility] Address [address] [place] [address] Phone Care Team Providers Care Customer Retention Representative Name Role Phone Az Marie DO Unavailable [phone] Az Marie DO PP [phone] Reason for Referral No Reason for Referral Recorded Problems Includes: Active, inactive, and resolved Problems All Visits Effective Date(s) Provider Condition Stat us Difficulty Breathing (dyspnea) 02/21/2020 Patricia Mclain NP Active Depression 08/23/2019 Az Marie DO Active Lactose Intolerance 08/23/2019 zA Marie DO Activ e Generalized Anxiety Disorder [...] Physical 08/16/2015 Tori miller MD Inactive Note: [facility] Impaired Fasting Glucose 12/29/2014 Tori Short MD [...] Lab XR CHEST 2 VW 02/07/20 Az Mercer ujulieta DO Lab T3FREE 03/26/20 Az rendon DO Lab T3 UPTAKE 03/26/20 Az rendon DO Lab FREE T4 (FREE THYROXINE) 03/26/20 Felicia Marie DO Lab Antithyroglobulin Ab 03/26/20 Az Marie DO Lab Thyrotropin Receptor Ab,S 03/26/20 Yonatan Marie DO Lab FREE T4 AND TOTAL T4 03/26/20 Az Amara Marie DO Lab Thyroid Peroxidase (TPO) Ab 03/26/20 Az Amara Marie DO Lab TSH 03/26/20 Az Acevedocharlette julieta DO Lab CT ABD & PEL W CONTRAST 04/12/20 Aster Santana CARDIAC EXERCISE PHYSIOLOGIST Lab CLOSTRIDIUM DIFF AMPLIFICATION 05/10/20 Aster Santana CARDIAC EXERCISE PHYSIOLOGIST Lab OVA AND PARASITES 05/10/20 Aster phillips CARDIAC EXERCISE PHYSIOLOGIST Lab STOOL CULTURE 05/10/20 Aster Santana CARDIAC EXERCISE PHYSIOLOGIST Lab STOOL FOR WBC 05/10/20 Aster Santana CARDIAC EXERCISE PHYSIOLOGIST Referrals To Diagnosis Physical Therapy Other specified kai enital deformities of feet Note: Please schedule patient with provi derPhysical Therapy: please schedule 3 times weekly for 6 months for evaluation and treatment of: Club Feet [facility] and M Epigastric pain Note: Please schedule patient with provi domonique- persistent abd sx's send last few notes and scans Behavorial Health Major depressive dis order, [...] ER / admission and limited cognitive capacity- 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 [facility]- Antony Cox Future Appointments Date Time Location Provider Acute Follow-up Well 05/22/2020 1:40PM [facility] Aster Santana NP Chronic Disease Follow-up 10/23/2020 1:00PM [facility] Trang JOVELP Future Tests Order Diagnosis Results Due Ordering Provid er Visit Summary - Standard Visit Visit Summary Standard Visi t Pediculosis, unspecified 05/18/20 Umesh Carvalho CARDIAC EXERCISE PHYSIOLOGIST Findings Encounter Date Ordered return to the clinic if condition worsens or n ew symptoms arise Acute L2 with Aster Hensonn CARDIAC EXERCISE PHYSIOLOGIST 05/18/2020 Ordered follow-up visit AHR with Trang Mosqueda Kelsea CARDIO TECH 2019 Ordered return to the clinic if condition worsens or n ew symptoms arise AHR with Trang Mosqueda Kelsea CARDIO TECH 05/01/2020 Return to the clinic if condition worsens or new sympt oms arise AHR with Trang Mosqueda Kelsea CARDIO TECH 05/01/2020 Instructions for patient Acute L1 with Aster Santana CARDIAC EXERCISE PHYSIOLOGIST 03/16 Ordered follow-up visit Acute L1 with Stefani Max CARDIAC EXERCISE PHYSIOLOGIST 04/10 Ordered return to the clinic if condition worsens or n ew symptoms arise Acute L1 with Aster Santana CARDIAC EXERCISE PHYSIOLOGIST 04/10/2020 Instructions for patient Acute L3 with [...] IN STABLE CONDITION Emergency with Aster Frausto CARDIAC EXERCISE PHYSIOLOGIST 03/05/2020 Return to the clinic if condition worsens or new sympt oms arise Emergency with Patricia Mclain CARDIAC EXERCISE PHYSIOLOGIST 02/21/2020 Instructions for patient D Emergency with Az katz DO 02/03/2020 Ordered follow-up visit D Emergency with Az Marie DO 02/03/2020 Ordered return to the clinic if condition worsens or n ew symptoms arise D Emergency with Az Marie DO 02/03/2020 Ordered Clinical summary transmitted to referring provider electronically with reasonable certainty of receipt or receiving provider electronically through [facility] Telephonic Encounter with Az Marie DO 01/26/2020 Ordered Clinical summary transmitted to referring provider electronically with reasonable certainty of receipt or receiving provider electronically through [facility] Telephonic Encounter with Az Marie DO 12/12/2019 Instructions for patient Emergency with Az Marie DO 12/02/2019 Ordered Clinical summary transmitted to referring provider electronically with reasonable certainty of receipt or receiving provider electronically through [facility] Emergency with Az Marie DO 12/02/2019 Ordered follow-up visit Emergency with Az Savage O 12/02/2019 Ordered return to the clinic if condition worsens or n ew symptoms arise Emergency with Az Marie DO 12/02/2019 Instructions for patient Hospital Follow-up with Az hylton DO 11/21/2019 Ordered Clinical summary transmitted to referring provider electronically with reasonable certainty of receipt or receiving provider electronically through [facility] Follow-up with Az Marie DO 11/21/2019 Ordered follow-up visit Hospital Follow-up with Az stephenson DO 11/21/2019 Ordered return to the clinic if condition worsens or n ew symptoms arise Hospital Follow-up with Az Marie DO 11/21/2019 Instructions for patient Telehealth with Az Marie DO 09/08/2019 Ordered Clinical summary transmitted to referring provider electronically with reasonable certainty of receipt or receiving provider electronically through [facility] Telehealth with Az Marie DO 09/08/2019 Ordered [...] of receipt or receiving provider electronically through [facility] Hospital Follow-up with Trang JOVELP 0 Ordered follow-up visit Hospital Follow-up with Trang lindo CARDIO TECH 08/18/2019 Ordered return to the clinic if condition worsens or n ew symptoms arise Hospital Follow-up with Trang Enamorado CARDIO TECH 08/18/2019 Instructions for patient meds as rx in crease fluids medicate for temp -Can go to the ER if worsening sx Otherwise follow here if not better with tx Walk- In with Anay Rincon NP 06/27/2019 Ordered Clinical summary transmitted to referring provider electronically with reasonable certainty of receipt or receiving provider electronically through [facility] Walk-In with Anay Rincon CARDIAC EXERCISE PHYSIOLOGIST 06/27/2019 Ordered return to the clinic if condition worsens or n ew symptoms arise Walk-In with Anay Rincon CARDIAC EXERCISE PHYSIOLOGIST 06/27/2019 Instructions for patient Hospital Follow-up with Az hylton DO 06/23/2019 Ordered Clinical summary transmitted to referring provider electronically with reasonable certainty of receipt or receiving provider electronically through [facility] Hospital Follow-up with Az Marie DO 06/23/2019 Ordered follow-up visit Hospital Follow-up with Az stephenson DO 06/23/2019 Ordered return to the clinic if condition worsens or n ew symptoms arise Hospital Follow-up with Az Marie DO 06/23/2019 Ordered Clinical summary transmitted to referring provider electronically with reasonable certainty of receipt or receiving provider electronically through [facility] Walk-In with Patricia Mclain CARDIAC EXERCISE PHYSIOLOGIST 06/02/2019 Return to the clinic if condition worsens or new sympt oms arise Walk-In with Patricia Mclain CARDIAC EXERCISE PHYSIOLOGIST 06/02/2019 Instructions for patient Follow-up Acute with Az evans DO 05/09/2019 Ordered Clinical summary transmitted to referring provider electronically with reasonable certainty of receipt or receiving provider [facility] Acute with Az Marie DO 05/09/2019 [...] of receipt or receiving provider electronically through [facility] Hospital Follow-up with Az Marie DO 05/02/2019 Ordered follow-up visit Hospital Follow-up with Az stephenson DO 05/02/2019 Ordered return to the clinic if condition worsens or n ew symptoms arise Hospital Follow-up with Az Marie DO 05/02/2019 Ordered Clinical summary transmitted to referring provider electronically with reasonable certainty of receipt or receiving provider electronically through [facility] Walk-In with Aster SHANE 04/25/2019 Ordered follow-up [...] of receipt or receiving provider electronically through [facility] Establish Care with Az Marie DO 03/15/2019 Ordered follow-up visit Establish Care with Az zepeda DO 03/15/2019 Ordered return to the clinic if condition worsens or n ew symptoms arise Establish Care with Az Marie DO 03/15/2019 Ordered Clinical summary transmitted to referring provider electronically or receiving provider [facility] AHR with Tori Short MD 04/28/2018 Ordered return to the clinic if condition worsens or n ew symptoms arise AHR with Tori Short MD 04/28/2018 Ordered Clinical summary transmitted to referring provider electronically or receiving provider electronically through [facility] Walk-In with Ana Boswell DO 01/08/2018 Continue current medication except where otherwise no rosa maria Chronic Disease Follow-up with Tori Short MD 08/13/2017 Ordered Clinical summary transmitted to referring provider electronically or receiving provider electronically through [facility] Chronic Disease Follow-up with Tori Short MD [...] care, clinical sum aster provided electronically through [facility] Chronic Disease Follow-up with Tori Short MD [...] care, clinical sum aster provided electronically through [facility] AHR with Tori Short MD 10/20/2016 Patient [...] M Sa me Day with Yen Garland CARDIAC EXERCISE PHYSIOLOGIST 03/17/2013 Ordered return to the clinic if condition worsens or n ew symptoms arise M Same Day with Yen Garland NP 03/17/2013 Also recommended A&D ointment for erythema of vagina l area M Same Day with Yen Garland NP 10/20/2012 Ordered a urine culture M Same Day with Yen Garland CARDIAC EXERCISE PHYSIOLOGIST 10/20/2012 Ordered fluids (patient to increase p.o. intake) M Sa me Day with Yen Garland NP 10/20/2012 Ordered urinalysis M Same Day with Yen Garland NP 01/2013 Ordered a urine culture M Same Day with Yen Garland CARDIAC EXERCISE PHYSIOLOGIST 10/07/2012 Ordered fluids (patient to increase p.o. [...] TC to to discuss findings and recommendations [facility] L CHILD CHECK with Yen Garland NP [...] in 1-2 weeks M Acute with Yen L Gill COULTER 05/29/2009 Ordered disposition - Telephone call to to discuss findings and recommendations M Acute with Yen L Gill COULTER 05/29/2009 Ordered follow-up visit in 1-2 weeks M Acute with Yen Domenica Amara munoz NP 05/29/2009 Ordered return to the clinic if condition worsens or n ew symptoms arise M Acute with Yen Metzger Gill COULTER 05/29/2009 Assessments Includes: Assessments for all patient encounters Findings Encounter Date Pediculosis Acute L2 with Aster Santana NP [...] JOVELP 05/01/2020 Routine history and physical see [facility] ed problem list above for impression [...] dizziness Emergency with Aster Nicholson Eric crum CARDIAC EXERCISE PHYSIOLOGIST 03/05/2020 Cerumen impaction Emergency with Aster Nicholson Kitty stephens CARDIAC EXERCISE PHYSIOLOGIST 03/05/2020 Assessment of dizziness Emergency with Patricia Mclain CARDIAC EXERCISE PHYSIOLOGIST 01/2020 Assessment of dyspnea Emergency with Patricia Mclain CARDIAC EXERCISE PHYSIOLOGIST 2019 Chest pain Emergency with Patricia Mclain CARDIAC EXERCISE PHYSIOLOGIST 02/21/20 20 Intellectual disabilities Emergency with Patricia Mclain CARDIAC EXERCISE PHYSIOLOGIST Suicide risk Emergency with Patricia Mclain CARDIAC EXERCISE PHYSIOLOGIST 02/21/20 20 Chest pain D Emergency with [...] DO 11/21/2019 Pneumonia Hospital Follow-up with Az zepeda DO 11/21/2019 Vasovagal syncope Hospital Follow-up with Az zepeda DO 11/21/2019 Depression Telehealth with Az Marie DO 0 09/08/2019 Dizziness Telehealth with Az Marie DO 0 09/08/2019 Lactose intolerance Telehealth with Az Marie DO 0 09/08/2019 Lung neoplasm of uncertain behavior Telehealth with Az Marie DO 09/08/2019 Depression Medication Follow-up with Az evans DO 08/23/2019 Dizziness Medication Follow-up with Az evans DO 08/23/2019 Lactose intolerance Medication Follow-up with Az evans DO 08/23/2019 Lung neoplasm of uncertain behavior Medication Follow- up with Az Marie DO 08/23/2019 Abdominal pain - Ongoing for months. la bs benign in the past. CT abd pelvis and Transvaginal US reviewed. Multiple ER visits. Was referred to GI and did not follow through. Will assist her with getting new appt as she did not seem to understand pervious appt Hospital Follow-up with Trang TOMPKINS 0 Dizziness - Neuro exam benign. No [...] Assessment of dizziness Walk-In with Patricia Mclain CARDIAC EXERCISE PHYSIOLOGIST 2018 Chest pain Walk-In with Patricia Mclain CARDIAC EXERCISE PHYSIOLOGIST 06/02/2019 Nausea Walk-In with Patricia Mclain CARDIAC EXERCISE PHYSIOLOGIST 06/02/2019 Abdominal pain--epigastric Follow-up Acute with Az [...] Assessment of visit for: screening for depression Cna albaro Disease Follow-up with Tori Short MD [...] Assessment of visit for: screening for depression Cna albaro Disease Follow-up with Tori Short MD [...] drastic changes in the house Walk-In with Aan Boswell DO 12/29/2014 Obesity Walk-In with Ana [...] hand wound check with Yen L Gill CARDIAC EXERCISE PHYSIOLOGIST 0 09/20/2013 Abscess - left hand - possible fb M Same Day with Yen L Gill CARDIAC EXERCISE PHYSIOLOGIST 09/16/2013 Patient is approved for participation in School, Physical Education, and Sports for 1 year WELL CHILD CHECK with Yen L Gill CARDIAC EXERCISE PHYSIOLOGIST 09/12/2013 Normal routine history and physical adolescent (12 - 1 7) WELL CHILD CHECK with Yen L Gill CARDIAC EXERCISE PHYSIOLOGIST 09/12/2013 Urinary tract infection M Same Day with Yen L Gill CARDIAC EXERCISE PHYSIOLOGIST 04/15/2013 Diarrhea - most likely due to lactose intolerance M Same Day with Yen L Gill CARDIAC EXERCISE PHYSIOLOGIST 03/17/2013 Urinary tract infection M Same Day with Yen L Gill CARDIAC EXERCISE PHYSIOLOGIST 10/20/2012 Urinary tract infection M Same Day with Yen L Gill CARDIAC EXERCISE PHYSIOLOGIST 10/07/2012 Patient is approved for participation in School, Physical Education, and Sports for 1 year WELL CHILD CHECK with Yen L Gill CARDIAC EXERCISE PHYSIOLOGIST 08/19/2012 Normal routine history and physical adolescent (12 - 1 7) WELL CHILD CHECK with Yen L Gill CARDIAC EXERCISE PHYSIOLOGIST 08/19/2012 Patient is approved for participation in School, Physical Education, and Sports for 1 year WELL CHILD CHECK with Yen L Gill CARDIAC EXERCISE PHYSIOLOGIST 06/24/2011 Normal routine history and physical adolescent (12 - 1 8) WELL CHILD CHECK with Yen L Gill CARDIAC EXERCISE PHYSIOLOGIST 06/24/2011 Patient is approved for participation in School, Physical Education, and Sports for 1 year M Acute with Yen L Gill CARDIAC EXERCISE PHYSIOLOGIST 06/24/2010 Normal routine history and physical adolescent (12 - 1 8) M Acute with Yen L Gill CARDIAC EXERCISE PHYSIOLOGIST 06/24/2010 Patient is approved for participation in School, Physical Education, and Sports for 1 year - Adaptive M Acute with Yen L Gill CARDIAC EXERCISE PHYSIOLOGIST 06/20/2009 Normal routine history and physical adolescent (12 - 1 8) M Acute with Yen L Gill CARDIAC EXERCISE PHYSIOLOGIST 06/20/2009 Cerumen impaction M Acute with Yen Garland CARDIAC EXERCISE PHYSIOLOGIST 009 Lactose intolerance 30 minutes with Aster catherine CARDIAC EXERCISE PHYSIOLOGIST 02/13/2009 Seizure disorder 30 minutes with Aster catherine CARDIAC EXERCISE PHYSIOLOGIST 02/13/2009 Instructions Instructions not supported for this [...] per discharge medicati on list dated 04/04/2020 Dnibyiob-Qevguuzwb-Pzlzusseyei 200-200-20 MG/5ML Oral Suspen jose miguel 04/04/2020 [...] Medical Compression Stockings MISC 02/12/2018 - 04/28/2018 P robaldomeroder: Diagnosis: Morbid (severe) obes ity due to [...] 04/15/2013 - 04/29/2013 Provid er: Yen Garland CARDIAC EXERCISE PHYSIOLOGIST Diagnosis: Urinary Tract Infect ion Site Not Specified Bactrim DS 800-160 MG OR TABS 10/20/2012 - 03/17/2013 Provid er: Yen Garland CARDIAC EXERCISE PHYSIOLOGIST Diagnosis: Urinary Tract Infect ion Site Not Specified Take one tablet po bid x 2 weeks. Bactrim DS 800-160 MG OR TABS 10/07/2012 - 10/26/2012 Provid er: Yen Garland CARDIAC EXERCISE PHYSIOLOGIST Diagnosis: Urinary Tract Infect ion Site Not Specified Take 1 tab po bid x 3 days. Ibuprofen 200 MG OR TABS 07/19/2010 - 10/07/2012 Provider: Yen Garland NP Diagnosis: LaMICtal 25 MG OR CHEW 06/24/2010 - 09/12/2014 Provider: Diagnosis: Acetaminophen 500 MG OR CAPS 10/24/2009 - 10/07/2012 Provide r: Yen Garland CARDIAC EXERCISE PHYSIOLOGIST Diagnosis: Acetaminophen 500 MG OR CAPS 10/23/2009 - 10/07/2012 Provide r: Yen Garland CARDIAC EXERCISE PHYSIOLOGIST Diagnosis: Acetaminophen 500 MG OR TABS 10/15/2009 - 10/07/2012 Provide r: Yen Garland CARDIAC EXERCISE PHYSIOLOGIST Diagnosis: Headache Ibuprofen 200 MG OR TABS 07/05/2009 - 10/07/2012 Provider: Yen Garalnd NP Diagnosis: Impacted Cerumen lamoTRIgine 150 MG [...] Ondansetron 4 MG OR TBDP 06/02/2019 Patricia Boyd y CARDIAC EXERCISE PHYSIOLOGIST given S.L. Ibuprofen 200 MG OR TABS 05/20/2011 Yen L Saeed pagan CARDIAC EXERCISE PHYSIOLOGIST Ondansetron 4 MG OR TBDP 05/09/2019 Az Morales rguello DO Ibuprofen 200 MG OR TABS 04/29/2011 Yen L Saeed ej CARDIAC EXERCISE PHYSIOLOGIST Acetaminophen 500 MG OR CAPS 03/12/2011 Yen Domenica Gill CARDIAC EXERCISE PHYSIOLOGIST Acetaminophen 500 MG OR CAPS 03/10/2011 Yen L Gill CARDIAC EXERCISE PHYSIOLOGIST Ibuprofen 200 MG OR CAPS Headache 02/20/2011 Yen L Gill CARDIAC EXERCISE PHYSIOLOGIST Ibuprofen 200 MG OR CAPS 07/16/2011 Yen Domenica Tipton ej CARDIAC EXERCISE PHYSIOLOGIST Vital Signs Includes: Vital Signs from 05/18/2019 through 05/18/2020 Vital Name 05/18/2020 08:35A 05/01/2020 12:49P 04/10/2020 05:38P 04/10/2020 05:09P 03/12/2020 08:16A Respiration Rate (breaths/min) 17 16 20 18 Temp-Tympanic (F) 95.6 100 98.5 Weight (lb) 250.8 250 252 250 Pain Level 3 0 3 0 Oxygen Saturation (%) 97 98 99 98 Flow Rate (l/min) (None (Room Air)) (None (Ro om Air)) (None (Room Air)) FiO2 (%) 21 21 21 Blood Pressure Sitting L 134/80 120/78 138/84 140/104 118/66 BP Cuff Size Large Large Large Large Pulse Rate-Sitting (bpm) 93 70 90 95 Height (in) 61 Body Mass Index (kg/m2) 47.2 Body Surface Area (m2) 2.08 Pulse Rhythm Regular Regular Regular Temp-Temporal 97.2 Vital Name 03/05/2020 12:26P 02/21/2020 04:28P 02/21/2020 04:27P 02/21/2020 04:06P 02/03/2020 01:33P Respiration Rate (breaths/min) 16 16 20 Temp-Tympanic (F) 100.6 98.6 Pain Level 0 0 3 Oxygen Saturation (%) 98 97 98 98 97 Flow Rate (l/min) (None (Room Air)) (None (Room Air)) (None (Sarahi m Air)) (None (Room Air)) (None (Room Air)) FiO2 (%) 21 21 21 21 21 Blood Pressure Sitting L 125/87 116/70 122/80 BP Cuff Size Large Large Large Pulse Rate-Sitting (bpm) 96 125 117 120 133 Temp-Temporal 97.9 Note: Lap 1 Resting Vital Name 12/12/2019 03:16P 12/02/2019 09:36A 11/21/2019 07:08A 08/23/2019 11:58A 08/23/2019 11:57A Respiration Rate (breaths/min) 18 20 Temp-Tympanic (F) 99.9 98 Pain Level 0 0 0 Oxygen Saturation (%) 96 98 97 94 Flow Rate (l/min) (None (Room Air)) (None (Ro om Air)) (None (Room Air)) FiO2 (%) 21 21 21 Blood Pressure Sitting L 122/60 127/85 BP Cuff Size Large Large Pulse Rate-Sitting (bpm) 112 101 113 113 Blood Pressure Standing L 120/77 Blood Pressure Supine L 130/84 Pulse Rate-Standing (bpm) 101 Pulse Rate-Supine (bpm) 99 Note: 1 min post walking 02 cinda o2 start Vital Name 08/23/2019 11:06A 08/23/2019 10:51A 08/18/2019 09:19A 08/18/2019 08:57A 08/18/2019 08:27A Respiration Rate (breaths/min) 16 18 Temp-Tympanic (F) 99 Pain Level 10 10 Oxygen Saturation (%) 98 98 Flow Rate (l/min) (None (Room Air)) FiO2 (%) 21 Blood Pressure Sitting L 116/76 BP Cuff Size Large Large Large Large Large Pulse Rate-Sitting (bpm) 84 83 84 Pulse Rhythm Regular Regular Pulse Rate-Standing (bpm) 91 Pulse Rate-Supine (bpm) 85 Blood Pressure Sitting R 135/77 140/88 124/86 140/82 Blood Pressure Standing R 128/59 142/86 Blood Pressure Supine R 134/79 120/80 Pulse Rhythm Irregular Note: orthostatic BP BG-92 supine at 9:10 a m pt not c/o dizziness pupils smaller in size sitiing at 9/15am pupils dilated larger in size pt c/o dizzinessstanding at 920 am. pupils still dilated and pt swaying and C/O dizziness Vital Name 06/27/2019 09:42A 06/23/2019 09:39A 06/02/2019 09:50A 06/02/2019 09:15A Respiration Rate (breaths/min) 20 22 22 Temp-Tympanic (F) 100.6 99 99.3 Weight (lb) 254 260 259 Pain Level 10 8 10 Oxygen Saturation (%) 98 98 Flow Rate (l/min) (None (Room Air)) (None (Room Air)) ( None (Room Air)) FiO2 (%) 21 21 21 Blood Pressure Sitting L 110/76 128/86 140/88 BP Cuff Size Large Large Large Pulse Rate-Sitting (bpm) 106 92 98 Height (in) 60.75 Body Mass Index (kg/m2) 48.4 Body Surface Area (m2) 2.08 Pulse Rhythm Regular Regular Blood Pressure Sitting (mmHg) 134/82 Results Includes: Results from 05/18/2019 through 05/18/2020 Thin Prep Image Guided [facility] Ordered by Trang TOMPKINS on 05/01/[address], [address] Collected: 05/01/2020 Reported: 05/13/2020 tel:[phone] See Note Chris None Note: Run: 05/13/20 1329 INTERFACED REPORT Name: Diane Schuler Age/Sex: 25/F Location: [facility] Acct: [id number] Unit: [id number] Status: REG REF Room/Bed: Re05/01/20 Disch: Att Dr: Trang Enamorado Spec Num: [id number] Recd: 05/02/20 Status: SOUViolette Retricia Num: [id number] SpType: CYTOLOGY Sub Dr: Trang Enamorado Specimen SubmittedThin Prep Image Guided Z12.72 : Screening vaginal pap smear CERVICAL, LMP 04/10/2020, LR 05/01/2020 Specimen Adequacy Satisfactory for evaluation Endocervical/transformation zone component present. General Categorization Negative for Intraepithelial Lesion or Malignancy Descriptive Diagnosis Fungal Elements Present Consistent with Kirit SP. Predominance of Bacteria Co nsistent with a Shift in Vaginal Denise. Specimen Identification Verified. Reviewing Entry Clerk PF HPV RESULTS Date Time Test Result [...] are final unless otherwise noted. Reported Physicians [facility] Ordered by Trang TOMPKINS on 05/01/[address], [address] Collected: 05/01/2020 Reported: 05/13/2020 tel:[phone] Reported Physicians See Note None Note: Reported Physicians:Ordering: Devaughn Friedmanending: Trang Enamorado Reviewed by Aster Santana NP on 05/14/20; All test results are final unless otherwise noted. VAGINOSIS (BV) TEST [facility] Ordered by Trang TOMPKINS on 05/01/[address], [address] Collected: 05/01/2020 Reported: 05/02/2020 tel:[phone] [...] are final unless otherwise noted. Reported Physicians [facility] Ordered by Trang TOMPKINS on 05/01/[address], [address] Collected: 05/01/2020 Reported: 05/02/2020 tel:[phone] Reported Physicians See Note None Note: Reported Physicians:Ordering: Devaughn Friedmanending: Trang Enamorado Reviewed by Trang TOMPKINS on 04/15; All test results are final unless otherwise noted. COVID 19 (RHEONIX) [facility] Ordered by Az Marie DO on 02/04/[address], [address] Collected: 02/04/2020 Reported: 02/04/2020 tel:[phone] Note: COVID Reason [place] Admission Priority COVID 19 (RHEONIX) NOT-DETECTED (NOTDETECTED) None Note: The Rheonix COVID-19 MDx Assay is an endpoint RT-PCR assay intended for the qualitative detection of nucleic acid from SARS-CoV-2 in nasopharyngeal swabs. COVID testing using the [employer]onix analyzer was developed for the purpose of [...] Observer: COVID 19 (R) COVID 19 (RHEONIX) 550.1505 (A) Reviewed by Az Marie DO on ; All test results are final unless otherwise noted. Reported Physicians [facility] Ordered by Az Marie DO on 02/04/[address], [address] Collected: 02/04/2020 Reported: 02/04/2020 tel:[phone] Reported Physicians See Note None Note: Reported [...] unless otherwise noted. CBC w/ Auto Diff [facility] Ordered by Az Marie DO on 08/23/[address], [address] Collected: 08/23/2019 Reported: 08/23/2019 tel:[phone] BASO # (AUTO) 0.06 3/uL (0.00-0.20) N [...] final unless otherwise noted. HCG QUALITATIVE SPECIMEN [facility] Ordered by Az Marie DO on 08/23/[address] [place] [address], [address] Collected: 08/23/2019 Reported: 08/23/2019 tel:[phone] HCG QUALITATIVE SPECIMEN SERUM None Note: Responsible Observer: HCG QL SPECI MEN HCG QUALITATIVE 300.86894 (A) Reviewed by Az Marie DO on ; All test results are final unless otherwise noted. *HCG QUALITATIVE SERUM [facility] Ordered by Az Marie DO on 08/23/[address] [place] [address], [address] Collected: 08/23/2019 Reported: 08/23/2019 tel:[phone] HCG RESULT,S NEGATIVE None Note: Reference range is Negative "Extreme" early may have low levels of HCG present. If is suspected, repeat testing with a new specimen in 48-72 hoursResponsible Observer: HCG RESULT,S HCG RESULT,S 300.6001 (A) Reviewed by Az Marie DO on ; All test results are final unless otherwise noted. COMPREHENSIVE METABOLIC PANEL [facility] Ordered by Az Marie DO on 08/23/[address] [place] [address], [address] Collected: 08/23/2019 Reported: 08/28/2019 tel:[phone] Note: Has Patient Fasted For The Past [...] are final unless otherwise noted. GLYCOSYLATED HGBA1C [facility] Ordered by Az Marie DO on 08/23/[address] [place] [address], [address] Collected: 08/23/2019 Reported: 08/28/2019 tel:[phone] Note: Has Patient Fasted For The Past 12 Hours? N Has Patient Fasted For The Past 12 Hours? Y GLYCOSYLATED HGBA1C 5.1 % (4.1-6.5) N (Normal) Note: Responsible Observer: HGB A1C GLYC OSYLATED HGBA1C 300.0800 (A) Reviewed by Az Marie DO on ; All test results are final unless otherwise noted. LIPID PANEL [facility] Ordered by Az Marie DO on 08/23/[address] [place] [address], [address] Collected: 08/23/2019 Reported: 08/28/2019 tel:[phone] Note: Has Patient Fasted For The Past [...] results are final unless otherwise noted. TSH [facility] Ordered by Az Marie DO on 08/23/[address] [place] [address], [address] Collected: 08/23/2019 Reported: 08/28/2019 tel:[phone] Note: Has Patient Fasted For The Past [...] are final unless otherwise noted. Reported Physicians [facility] Ordered by Az Marie DO on 08/23/[address] [place] [address], [address] Collected: 08/23/2019 Reported: 08/28/2019 tel:[phone] Reported Physicians See Note None Note: Reported Physicians:Ordering: Az Duranending: Az Marie Reviewed by Az Marie DO on ; All test results are final unless otherwise noted. Strep Test In-House [facility] Ordered by Trang JOVELP on 08/18/2019 Collected: 08/18/2019 Reported: 08/18/2019 Throat Swab negative N (Normal) Reviewed on 08/18/2019; All test result s are final unless otherwise noted. URINALYSIS [facility] Ordered by Anay Rincon NP on 06/27/[address] [place] [address], [address] Collected: 06/27/2019 Reported: 06/27/2019 tel:[phone] Note: N URINE EPITH MANY PER/LPF (FEW-MOD) [...] are final unless otherwise noted. URINE CULTURE [facility] Ordered by Anay Rincon NP on 06/27/[address], [address] Collected: 06/27/2019 Reported: 06/29/2019 tel:[phone] See Note Chris None Note: Run: 06/29/19 0816 INTERFACED REPORT Name: Diane Schuler Age/Sex: 24/F Location: [facility] Acct: [id number] Unit: [id number] Status: REG REF Room/Bed: Re06/27/19 Disch: Att Dr: Anay Rincon I CARDIAC EXERCISE PHYSIOLOGIST Specimen #: [id number] Ordered : 06/27/19 Collected : 06/27/19 By: OFFICE Received: 06/27/19 By: GMACDOUGAL Source: URINE CC Specimen Description: Comments: Cholo Traore Has been collected UCC Procedure Result COLONY COUNT Final COLONY COUNT LESS THAN 1,000 CFU/ML URINE CULTURE Final NO GROWTH 18 HOURS NO SIGNIFICANT GROWTH 42 HOURS URINE CULTURE Preliminary (Corrected) NO GROWTH 18 HOURS END OF REPORT Reviewed by Anay Rincon NP on 06/29; All test results are final unless otherwise noted. Reported Physicians [facility] Ordered by Anay Rincon NP on 06/27/[address] [place] [address], [address] Collected: 06/27/2019 Reported: 06/29/2019 tel:[phone] Reported Physicians See Note None Note: Reported Physicians:Ordering: Anay Reyes IAttending: Anay Rincon Reviewed by Anay Rincon NP on 06/29; All test results are final unless otherwise noted. History of Present Illness History of Present Illness not supported for this document typeNo History of Present Illness Recorded Social History Description Last Updated Alcohol use 09/08/2019 Denies alcohol consumption 09/2019 No secondhand cigarette smoke exposure 05/18/2020 No violent traumatic event 05/18/2020 Not avoiding thoughts, feelings, or disc ussions related to stressful experience from past 05/18/2020 Not using drugs 09/08/2019 05/18/2020 Smoking status 05/01/2020 : Never smoker 05/18/2020 Procedures and Surgical/Medical History Includes: Procedures from 05/18/2019 through 05/18/2020 Procedures CPT-4 Diagnosis Performing Provider Service Location Service Date Immunization Administration (includes Percutaneous, Intrader 48989 Encounter for immunization Az J [facility] 03/12/2020 Influenza virus vaccine, preservative free, 6 months and up [address] Encounter for immunization Az Maloney [facility] 03/12/2020 Removal of impacted cerumen using irrigation 76051 Imp acted cerumen, bilateral Aster Nicholson Lisbet [facility] 03/05/2020 Ekg With Interpretation and Report 44408 Chest pain, u nspecified Patricia Mclain [facility] 02/21/2020 Ekg With Interpretation and Report [id number] Chest pain, u nspecified Az [facility] 02/03/2020 Glucose, Blood by Glucose Monitoring [place] [address] Dizziness and giddiness Az [facility] 12/02/2019 Ekg With Interpretation and Report 79407 [facility] Noninvasive Ear or Pulse Oximetry for Ox ygen Saturation; Mul (distinct separate procedure) 49317 Dizziness and giddiness Az [facility] 08/23/2019 Ekg With Interpretation and Report 33112 Dizziness and giddiness Az [facility] 08/23/2019 Urinalysis, by Dip Stick [place]t [place] [address] Unspecified abdominal pain Trang Panda Kelsea [facility] 08/18/2019 Rapid Strep Test (QW) 91180 Acute pharyngitis, unspecified [facility] 08/18/2019 Urinalysis, by Dip Stick or Tablet Reagent for Bilirubin, Gl (QW) 23409 Urinary tract infection, site not specified Anay Rincon [facility] 06/27/2019 Ekg With Interpretation and Report 97468 Chest pain, u nspecified Patricia Mclain [facility] 06/02/2019 Glucose, Blood by Glucose Monitoring [place] [address] Unspecified abdominal pain Patricia Mclain [facility] 06/02/2019 Periodic Oral Evaluation, [facility] D0120 En counter for dental exam and cleaning w/o abnormal findings Jere Simpson [facility] [place] [facility] 9 intraoral-periapical first radiographic image D0220 Encounter for dental exam and cleaning w/o abnormal findings Jere Simpson [facility] 05/27 Limited Oral Evaluation D0140 Encounter for de ntal exam and cleaning w/o abnormal findings Jere Simpson [facility] 05/27/2019 Surgical History Last Updated History of midfoot capsulotomy and poste rior release with tendon lengthening bette, Dr Blackwell, childhood, for club foot bilat 05/18/2020 Family History Includes: Family History in patient's chart Description Last Updated Family history of diabetes mellitus father 0 Family history of heart disease father 05/18/2020 Family history of hypertension father 05/18/2020 Family history of not using drugs - family history Maternal history of depression 05/18/2020 Maternal history of not using drugs 05/18/2020 No family history of depression - family history 09/2019 No paternal history of depression 05/18/2020 Paternal history of not using drugs 05/18/2020 Review of Systems Review of Systems not supported for this document typeNo Review of Systems Recorded Mental Status Mental Status not supported for this document type Description Not avoiding thoughts, feelings, or disc ussions [...] Upper Left Arm Complete (Administered) [facility] 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 05/18/2020 Pediculo sis Medication Order Aster Santana CARDIAC EXERCISE PHYSIOLOGIST 05/14/2020 AHR Trang Enamorado [facility] 05/01/2020 Rout ine History and Physical, Depression, Lung Neoplasm Uncertain Behavior Chart Prep Trang Enamorado [facility] 04/24/2020 Acute L1 Aster Santana [facility] 04/10/2020 Abdomina l Pain, Difficulty Breathing (dyspnea) Acute L3 [facility] 03/12/2020 De pression, Generalized Anxiety Disorder, Obesity Morbid Emergency Beth Bharat Frausto [facility] 03/05/20 20 Assessment of Dizziness, Cerumen Impaction Emergency [facility] 03/02[facility]2020 Correspondence Radha Etienne [facility] [place] [address] [facility] 02/21/2020 Suicide Risk, Chest Pain, Intellectual Disabilities, Assessment of Dizziness, Assessment of Difficulty Breathing (dyspnea) [facility] D [facility]/03[facility]2020 Ch est Pain, Depression, Lung Neoplasm Uncertain Behavior, Lactose Intolerance Telephonic Encounter [facility] 020 Depression, Lung Neoplasm Uncertain Behavior, Lactose Intolerance Telephonic Encounter [facility] 020 Dizziness, Depression, Lung Neoplasm Uncertain Behavior, Lactose Intolerance Correspondence Azbrit Marie 12/07/2019 Emergency [facility] 12/02/2019 As sessment of Dizziness Lab Order Az Marie 11/25/2019 [facility] Dizziness, Depression, Lung Neoplasm Uncertain Behavior, Lactose Intolerance, Vasovagal Syncope, Pneumonia Telehealth Az Marie 09/08/2019 Dizzi ness, Depression, Lung Neoplasm Uncertain Behavior, Lactose Intolerance Telehealth Az Marie [facility] 09/08/2019 Correspondence Az Marie 09/05/2019 Chart Prep Azbrit Marie 09/02/2019 Correspondence Radha Etienne EVP/LANDMEN [facility] 0 Medication Follow-up Az Marie [facility] 020 Dizziness, Depression, Lactose Intolerance, Lung Neoplasm Uncertain Behavior Hospital Follow-up Trang Enamorado [facility] 08/18/2019 Abdominal Pain, Dizziness, Pharyngitis Correspondence Az Marie 08/16/2019 Referral Order Azbrit Marie 06/29/2019 Walk-In Anay Rincon NP [facility] 06/27/2019 Sinus itis, Urinary Tract Infection [facility] Urinary Tract Infection, Ovarian Cyst Left, Abdominal Pain--epigastric, Elevated Liver Enzymes Walk-In Patricia Mclain [facility] 06/02/2019 Abdomina l Pain, Nausea, Chest Pain, Assessment of Dizziness [Patient Encounter] Jere Simpson DDS [facility] 05/27/2019 Insurance Includes: Active Insurance Policies Plan Name Member ID Group # Subscriber Relationship Effective Da alin 1 - [employer] Managed Medicaid [id number] Diane Crawford f 06/15/2017 - Unknown 2 - D [employer] Managed Medicaid [id number] Diane savage Self Advance Directives Includes: Current Advance Directives Directive Pat Aware Third Alliance Party Effective Date Reviewed Status packet given Pt Bill of Rights, Priv Prac, Ad Dir Yes 01/25/2019 Current and Verified Note: Pt accepted AD packet Ebola Screening Performed Yes 04/04/2020 Current and Verified Note: Within the last month, have you traveled outside of the [facility]? 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 Paperwork will be sent to the [employer] e place.PPD was done today and needs [...] disease. Depression screening is recommended by [facility], and your screening did not show current [...]
--- OUTSIDE RECORDS SUMMARY | 2020-07-25 11:15 | CCD | Summary of Care ---
Author Author [facility] Organization [facility] Address Unknown Phone Unavailable Care Team Providers Care Machine Fitter Name Role Phone Az Marie DO PCP Reason for Visit * Reason Comments Illness Encounter Details Care Team Description Date Type Department Quinn Harmon MD [address], [place] [id number] Abrasion (Primary Dx) 05/08/2020 [facility] [address] [facility] 05/09/2020 [place], [place] [id number] Allergies Comments Active Allergy Reactions Severity Noted [...] Release (PROTONIX) every morning before breakfast Active Iejqaukx-Euserujlu-Chueup Take 30 mLs 710 mL 0 icone [...] She resides with her grandmother, Sadie Schuler [phone]. She is [facility] connected and her hospice care transitions coordinator is Antony Cox from [facility] [phone] When patient requires transportation, please request female passenger coach driver Please ask patient Drivers of Utilization Questions with each encounter. Patient is connected to: [facility] [address] [place] [address] | Problem Noted Date Morbid obesity 02/11/2020 [...] on file Date Recorded COVID-19 Exposure Response 05/08/2020 11:38 PM EST In the last month, have you been in contact with No / Unsure someone who was confirmed or suspected to have Coronavirus / COVID-19? documented as of this encounter Last Filed Vital Signs Reading Time Taken Comments Vital Sign 133/87 05/09/2020 1:33 AM EST Blood Pressure 76 05/09/2020 1:33 AM EST Pulse 36.3 C (97.4 F) 05/09/2020 1:33 AM EST Temperature 18 05/09/2020 1:33 AM EST Respiratory Rate 97% 05/09/2020 1:33 AM EST Oxygen Saturation - - Inhaled Oxygen Concentration 113.4 kg (250 lb) 05/08/2020 8:27 PM EST Weight 162.6 cm (5' 4.02") 05/08/2020 8:27 PM EST Height 42.89 05/08/2020 8:27 PM EST Body Mass Index documented in this encounter Discharge Instructions * Attachments The following attachments cannot be sent through Care Everywhere.* ED Abrasion (Tuvaluan) documented in this encounter ED Notes * Cintia Lyman RN - 05/09/2020 2:16 AM EST Left leg cleansed and clean gauze applied- wrapped in channing wrap * Xavier Frausto RN - 05/08/2020 8:27 PM EST Patient comes to the ED with EMS for the complaint of general illness. She would not speak with EMS about what her complaint was and she wasn't forthcoming with information for triage. CYDNEY SANCHEZ and [facility] for the EMS transport. documented in this encounter Plan of Treatment [...] 63 Years) documented as of this encounter Results Not on filedocumented in this encounter Visit Diagnoses Diagnosis Abrasion - Primary Abrasion or friction burn of other, mul tiple, and unspecified sites, without mention of infection documented in this encounter Administered Medications Action Date Dose Rate Site Medication Order MAR Action 05/09/2020 2:10 AM EST 650 mg acetaminophen (TYLENOL) tablet 650 mg Given 650 mg, Oral, Once, 05/09/20 at 0145, For 1 dose, Maximum daily dose of acetaminophen from all sources 75 mg/kg/day, documented in this encounter
--- OUTSIDE RECORDS SUMMARY | 2020-07-25 11:16 | CCD ---
Author Author [facility] Address [address] [place] [address] Phone Care Team Providers Care Vending Stand Supervisor Name Role Phone Az Marie DO PP [phone] Az Marie DO Unavailable [phone] Reason for Referral No Reason for Referral Recorded Problems Includes: Active, inactive, and resolved Problems All Visits Effective Date(s) Provider Condition Stat us Difficulty Breathing (dyspnea) 02/21/2020 Patricia Mclian NP Active Depression 08/23/2019 Az Marie DO [...] Physical 08/16/2015 Tori miller MD Inactive Note: [facility] Impaired Fasting Glucose 12/29/2014 Tori Short MD [...] & PEL W CONTRAST 04/12/20 Aster Santana [employer] Lab CLOSTRIDIUM DIFF AMPLIFICATION 05/10/20 Aster Santana [employer] Lab OVA AND PARASITES 05/10/20 Aster phillips [employer] Lab STOOL CULTURE 05/10/20 Aster Santana [employer] Lab STOOL FOR WBC 05/10/20 Aster Santana [employer] Lab VAGINOSIS (BV) TEST 05/15/20 Trang richards [employer] Lab PAP THIN IMAGE GUIDED 05/15/20 Trang Enamorado [employer] Referrals To Diagnosis Physical Therapy Other specified aki enital deformities of feet Note: Please schedule patient with provi derPhysical Therapy: please schedule 3 times weekly for 6 months for evaluation and treatment of: Club Feet [facility] and M Epigastric pain Note: Please schedule patient with provi domonique- persistent abd sx's send last few notes and scans [facility] Major depressive dis order, single episode, [...] domonique- please CC [facility] dis order, single episode, unspecified Note: Please schedule patient with provi domonique- dx as listed hx poorly controlled A/D with weekly and sometimes daily trips to ER / admission and limited cognitive capacity- 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 get he into residential- Antony Cox Future Tests Order Diagnosis Results Due Ordering Provid er Follow-up Appt - Follow-up Chronic Revisit in 6 months Enc ounter for general adult medical exam w abnormal findings 05/01/20 Trang JOVELP Findings Encounter Date Ordered follow-up visit AHR with Trang Enamorado [employer] 2019 Ordered return to the clinic if condition worsens or n ew symptoms arise AHR with Trang Enamorado [employer] 05/01/2020 Return to the clinic if condition worsens or new sympt oms arise AHR with Trang Enamorado [employer] 05/01/2020 Instructions for patient Acute L1 with Stefani Max [employer] 03/16 Ordered follow-up visit Acute L1 with Aster Santana [employer] 04/10 Ordered return to the clinic if condition worsens or n ew symptoms arise Acute L1 with Aster Santana [employer] 04/10/2020 Instructions for patient Acute L3 with [...] IN STABLE CONDITION Emergency with Aster Frausto [employer] 03/05/2020 Return to the clinic if condition worsens or new sympt oms arise Emergency with Patricia Mclain [employer] 02/21/2020 Instructions for patient D Emergency with Az katz DO 02/03/2020 Ordered follow-up visit D Emergency with Az Marie DO 02/03/2020 Ordered return to the clinic if condition worsens or n ew symptoms arise D Emergency with Az Marie DO 02/03/2020 Ordered Clinical summary transmitted to referring provider electronically with reasonable certainty of receipt or receiving provider electronically through [facility] Telephonic Encounter with Az Marie DO 01/26/2020 Ordered Clinical summary transmitted to referring provider electronically with reasonable certainty of receipt or receiving provider electronically through [facility] Telephonic Encounter with Az Marie DO 12/12/2019 Instructions for patient Emergency with Az Marie DO 12/02/2019 Ordered Clinical summary transmitted to referring provider electronically with reasonable certainty of receipt or receiving provider electronically through [facility] Emergency with Az Marie DO 12/02/2019 Ordered follow-up visit Emergency with Az Savage O 12/02/2019 Ordered return to the clinic if condition worsens or n ew symptoms arise Emergency with Az Marie DO 12/02/2019 Instructions for patient Hospital Follow-up with Az hylton DO 11/21/2019 Ordered Clinical summary transmitted to referring provider electronically with reasonable certainty of receipt or receiving provider electronically through [facility] Follow-up with Az Marie DO 11/21/2019 Ordered follow-up visit Hospital Follow-up with Az stephenson DO 11/21/2019 Ordered return to the clinic if condition worsens or n ew symptoms arise Hospital Follow-up with Az Marie DO 11/21/2019 Instructions for patient Telehealth with Az Marie DO 09/08/2019 Ordered Clinical summary transmitted to referring provider electronically with reasonable certainty of receipt or receiving provider electronically through [facility] Telehealth with Az Marie DO 09/08/2019 Ordered [...] mental status changes. Hospital Follow-up with Trang JOVELP 08/18/2019 Ordered Clinical summary transmitted to referring provider electronically with reasonable certainty of receipt or receiving provider electronically through [facility] Follow-up with Trang Enamorado [facility] 0 Ordered follow-up visit Hospital Follow-up with Trang lindo [facility] 08/18/2019 Ordered return to the clinic if condition worsens or n ew symptoms arise Hospital Follow-up with Trang Enamorado [employer] 08/18/2019 Instructions for patient meds as rx in crease fluids medicate for temp -Can go to the ER if worsening sx Otherwise follow here if not better with tx Walk- In with Anay Rincon [employer] 06/27/2019 Ordered Clinical summary transmitted to referring provider electronically with reasonable certainty of receipt or receiving provider electronically through [facility] Walk-In with Anay Rincon [employer] 06/27/2019 Ordered return to the clinic if condition worsens or n ew symptoms arise Walk-In with Anay Rincon NP 06/27/2019 Instructions for patient Hospital Follow-up with Az hylton DO 06/23/2019 Ordered Clinical summary transmitted to referring provider electronically with reasonable certainty of receipt or receiving provider electronically through [facility] Follow-up with Az Marie DO 06/23/2019 Ordered follow-up visit Hospital Follow-up with Az stephenson DO 06/23/2019 Ordered return to the clinic if condition worsens or n ew symptoms arise Hospital Follow-up with Az Marie DO 06/23/2019 Ordered Clinical summary transmitted to referring provider electronically with reasonable certainty of receipt or receiving provider electronically through [facility] Walk-In with Patricia Mclain NP 06/02/2019 Return to the clinic if condition worsens or new sympt oms arise Walk-In with Patricia Mclain NP 06/02/2019 Instructions for patient Follow-up Acute with Az evans DO 05/09/2019 Ordered Clinical summary transmitted to referring provider electronically with reasonable certainty of receipt or receiving provider electronically through [facility] Follow-up Acute with Az Marie DO 05/09/2019 [...] of receipt or receiving provider electronically through [facility] Follow-up with Az Marie DO 05/02/2019 Ordered follow-up visit Hospital Follow-up with Az stephenson DO 05/02/2019 Ordered return to the clinic if condition worsens or n ew symptoms arise Hospital Follow-up with Az Marie DO 05/02/2019 Ordered Clinical summary transmitted to referring provider electronically with reasonable certainty of receipt or receiving provider electronically through [facility] Walk-In with Aster SHANE 04/25/2019 Ordered follow-up [...] of receipt or receiving provider electronically through [facility] Establish Care with Az Marie DO 03/15/2019 Ordered follow-up visit Establish Care with Az zepeda DO 03/15/2019 Ordered return to the clinic if condition worsens or n ew symptoms arise Establish Care with Az Marie DO 03/15/2019 Ordered Clinical summary transmitted to referring provider electronically or receiving provider electronically through [facility] AHR with Tori Short MD 04/28/2018 Ordered return to the clinic if condition worsens or n ew symptoms arise AHR with Tori Short MD 04/28/2018 Ordered Clinical summary transmitted to referring provider electronically or receiving provider electronically through [facility] Walk-In with Ana Boswell DO 01/08/2018 Continue current medication except where otherwise no rosa maria Chronic Disease Follow-up with Tori Short MD 08/13/2017 Ordered Clinical summary transmitted to referring provider electronically or receiving provider electronically through [facility] Chronic Disease Follow-up with Tori Short MD [...] care, clinical sum aster provided electronically through [facility] Chronic Disease Follow-up with Tori Short MD 03/11/2017 Continue current medication unless otherwise stated A HR with Tori Short MD 10/20/2016 Medical regimen review AHR with Tori Short MD 2016 Ordered follow-up visit AHR with Tori Short MD 10/20 Ordered return to the clinic if condition worsens or n ew symptoms arise AHR with Tori Short MD 10/20/2016 Ordered Transition in care, clinical nikolai rodarte provided electronically through [facility] AHR with Tori Short MD 10/20/2016 Patient [...] (patient to increase p.o. intake) M Sa Day with Yen Garland NP 04/15/2013 Ordered return to the clinic if condition worsens or n ew symptoms arise M Same Day with Yen Garland NP 04/15/2013 Supplies sent home for stool specimen. GM aware M Sa me Day with Yen Garland [employer] 03/17/2013 Ordered return to the clinic if condition worsens or n ew symptoms arise M Same Day with Yen Garland NP 03/17/2013 Also recommended A&D ointment for erythema of vagina l area M Same Day with Yen Garland [employer] 10/20/2012 Ordered a urine culture M Same Day with Yen Garland NP 10/20/2012 Ordered fluids (patient to increase p.o. intake) M Sa me Day with Yen Garland [employer] 10/20/2012 Ordered urinalysis M Same Day with Yen Garland [employer] 01/2013 Ordered a urine culture M Same Day with Yen Garland [employer] 10/07/2012 Ordered fluids (patient to increase p.o. intake) M Sa me Day with Yen Garland [employer] 10/07/2012 Ordered urinalysis M Same Day with Yen Garland [employer] 09/14 Keep toe clean and dry. May [...] TC to to discuss findings and recommendations [facility] CHILD CHECK with Yen Garland [...] in 1-2 weeks M Acute with Yen Metzger Gill [employer] 05/29/2009 Ordered disposition - Telephone call to GM to discuss findings and recommendations M Acute with Yen Metzger Gill [employer] 05/29/2009 Ordered follow-up visit in 1-2 weeks M Acute with Yen Domenica Amara alexander [employer] 05/29/2009 Ordered return to the clinic if condition worsens or n ew symptoms arise M Acute with Yen Garland [employer] 05/29/2009 Assessments Includes: Assessments for all patient encounters Findings Encounter Date Depression - Appears to be doing well today. 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 Also stable in size on CTA from 11/14/19. Can consider imaging in 1 year- November 2020. Patient low risk AHR with Trang Mosqueda Kelsea [employer] 05/01/2020 Routine history and physical see [facility] ed problem list above for impression and plan of any problems addressed today. Immunizations reviewed. Tetanus advsied and refused. Flu up to date. Pnuemonia up to date. Shingles after 50. Routine cancer screening reviewed. PAP done today. Mammograms at age 49. Colon screenig at age 49. AHR with Trang Mosqueda Kelsea [employer] 05/01/2020 Abdominal pain Acute L1 with Aster Santana [employer] 0 Dyspnea Acute L1 with Aster Santana [employer] 0 Major depressive disorder [Patient Encounter] with [...] DO Assessment of dizziness Emergency with Aster crum NP 03/05/2020 Cerumen impaction Emergency with Aster Tang angelo [employer] 03/05/2020 Assessment of dizziness Emergency with Patricia Mclain [employer] 01/2020 Assessment of dyspnea Emergency with Patricia Mclain [employer] 2019 Chest pain Emergency with Patricia Mclain [employer] 02/21/20 Intellectual disabilities Emergency with Patricia Mclain [employer] Suicide risk Emergency with Patricia Mclain [employer] 02/21/20 Chest pain D Emergency with Az Marie DO 02/03/2020 Depression D Emergency with zA Marie DO 02/03/2020 Lactose intolerance D Emergency [...] DO 08/23/2019 Dizziness Medication Follow-up with Az Amara evans DO 08/23/2019 Lactose intolerance Medication Follow-up [...] declines ER evaluation Hospital Follow-up with Trang JOVELP 08/18/2019 Pharyngitis - testing negative. No othe r sick symptoms. Montior and symptomatic care. Call with worsening symptoms Hospital Follow-up with Trang JOVELP 08/18/2019 Sinusitis Walk-In with Anay Rincon NP [...] 2018 Chest pain Walk-In with Patricia Mclain [employer] 06/02/2019 Nausea Walk-In with Patricia Mclain [employer] 06/02/2019 Abdominal pain--epigastric Follow-up Acute with Az stephenson DO 05/09/2019 Elevated liver enzymes Follow-up Acute with Az zepeda DO 05/09/2019 No cyst on the left ovary Follow-up Acute with Az sawyer DO 05/09/2019 Urinary tract infection Follow-up Acute with Az careyo DO 05/09/2019 Abdominal pain--[facility] Hospital Follow-up [...] Impaired fasting glucose Establish Care with Az careyo DO 03/15/2019 Morbid obesity Establish Care with [...] Assessment of visit for: screening for depression [employer] Operator albaro Disease Follow-up with Tori Short [...] Assessment of visit for: screening for depression Emb[employer] Operator albaro Disease Follow-up with Tori Short [...] hand wound check with Yen L Gill [employer] 0 09/20/2013 Abscess - left hand - possible fb M Same Day with Yen L Gill [employer]ER 09/16/2013 Patient is approved for participation in School, Physical Education, and Sports for 1 year WELL CHILD CHECK with Yen L Gill [employer]ER 09/12/2013 Normal routine history and physical adolescent (12 - 1 7) WELL CHILD CHECK with Yen L Gill [employer]ER 09/12/2013 Urinary tract infection M Same Day with Yen L Gill [employer]ER 04/15/2013 Diarrhea - most likely due to lactose intolerance M Same Day with Yen L Gill [employer]ER 03/17/2013 Urinary tract infection M Same Day with Yen L Gill [employer]ER 10/20/2012 Urinary tract infection M Same Day with Yen L Gill [employer]ER 10/07/2012 Patient is approved for participation in School, Physical Education, and Sports for 1 year WELL CHILD CHECK with Yen L Gill [employer]ER 08/19/2012 Normal routine history and physical adolescent (12 - 1 7) WELL CHILD CHECK with Yen L Gill [employer]ER 08/19/2012 Patient is approved for participation in School, Physical Education, and Sports for 1 year WELL CHILD CHECK with Yen L Gill [employer]ER 06/24/2011 Normal routine history and physical adolescent (12 - 1 8) WELL CHILD CHECK with Yen L Gill [employer]ER 06/24/2011 Patient is approved for participation in School, Physical Education, and Sports for 1 year M Acute with Yen L Gill [employer]ER 06/24/2010 Normal routine history and physical adolescent (12 - 1 8) M Acute with Yen L Gill [employer]ER 06/24/2010 Patient is approved for participation in School, Physical Education, and Sports for 1 year - Adaptive M Acute with Yen L Gill [employer]ER 06/20/2009 Normal routine history and physical adolescent (12 - 1 8) M Acute with Yen L Gill [employer]ER 06/20/2009 Cerumen impaction M Acute with Yen L Gill [employer]ER 009 Lactose intolerance 30 minutes with Aster catherine [employer]ER 02/13/2009 Seizure disorder 30 minutes with Aster catherine NP 02/13/2009 Instructions Instructions not supported for this document typeNo Instructions Recorded Medical Equipment - Implanted Devices Includes: Current and historical DevicesNo Medical Equipment Recorded Medications Includes: Current and historical Medications Current Medications (continue as prescribed) Pantoprazole Sodium 40 MG Oral Tablet Delayed [...] tid prn, per discharge medication list dated Qnqnzvyp-Ebjzzjzqp-Uzdmkulbqfq 200-200-20 MG/5ML Oral Suspen jose miguel 04/04/2020 [...] per discharge medicati on list dated 04/04/2020 hydrOXYzine HCl 50 MG Oral Tablet 04/04/2020 Provid er: Diagnosis: 1 tablet by mouth every 6 hours as neede d for anxiety or sleep. Per discharge medication list dated 04/04/2020 Escitalopram Oxalate 10 MG Oral Tablet 03/12/2020 Ester inman: Az Marie DO Diagnosis: Generalized anxiety disorder increased to 1.5 daily Past Medications on file Pantoprazole Sodium 40 MG Oral Tablet Delayed Release 2019 - 05/01/2020 Provider: Trang JOVELP Diagnosis: Gastro-esophageal re flux disease without esophagitis as directed: Take 1 tablet prior to breakfast daily Pantoprazole Sodium 40 MG OR TBEC 03/27/2020 - 04/26/2020 Pr ovider: Diagnosis: Gastro-esophageal re flux disease [...] 09/19/2013 - 10/02/2014 Provid er: Yen Garland [employer] Diagnosis: Cellulitis and Absce ss of Hand Except Fingers and Thumb Take one tablet po bid x 10 days. Keflex 500 MG OR CAPS 09/16/2013 - 09/19/2013 Provider: Yen Garland [employer]ER Diagnosis: Cellulitis and Absce ss of Hand Except Fingers and Thumb Take one capsule po bid x 10 days. Macrobid 100 MG OR CAPS 04/29/2013 - 09/12/2013 Provider: Yen Garland [employer] Diagnosis: Urinary Tract Infect ion Site Not Specified Take one capsule po bid x 14 days. Bactrim DS 800-160 MG OR TABS 04/15/2013 - 04/29/2013 Provid er: Yen Garland [employer] Diagnosis: Urinary Tract Infect ion Site Not Specified Bactrim DS 800-160 MG OR TABS 10/20/2012 - 03/17/2013 Provid er: Yen Garland [employer] Diagnosis: Urinary Tract Infect ion Site Not Specified Take one tablet po bid x 2 weeks. Bactrim DS 800-160 MG OR TABS 10/07/2012 - 10/26/2012 Provid er: Yen Garland [employer] Diagnosis: Urinary Tract Infect ion Site Not Specified Take 1 tab po bid x 3 days. Ibuprofen 200 MG OR TABS 07/19/2010 - 10/07/2012 Provider: Yen Garland NP Diagnosis: LaMICtal 25 MG OR CHEW 06/24/2010 - 09/12/2014 Provider: Diagnosis: Acetaminophen 500 MG OR CAPS 10/24/2009 - 10/07/2012 Provide r: Yen Garland [employer] Diagnosis: Acetaminophen 500 MG OR CAPS 10/23/2009 - 10/07/2012 Provide r: Yen Garland [employer] Diagnosis: Acetaminophen 500 MG OR TABS 10/15/2009 - 10/07/2012 Provide r: Yen Garland [employer] Diagnosis: Headache Ibuprofen 200 MG OR TABS [...] 200 MG OR TABS 04/29/2011 Yen pagan [employer]ER Acetaminophen 500 MG OR CAPS 03/12/2011 Yen L Gill [employer]ER Acetaminophen 500 MG OR CAPS 03/10/2011 Yen Garland [employer]ER Ibuprofen 200 MG OR CAPS Headache 02/20/2011 Yen Garland [employer]ER Ibuprofen 200 MG OR CAPS 07/16/2011 Yen pagan [employer]ER Vital Signs Includes: Vital Signs from 05/02/2019 through 05/02/2020 Vital Name 05/01/2020 12:49P 04/10/2020 05:38P 04/10/2020 05:09P 03/12/2020 08:16A 03/05/2020 12:26P Respiration Rate (breaths/min) 16 20 18 16 Temp-Tympanic (F) 100 98.5 Height (in) 61 Weight (lb) 250 252 250 Body Mass Index (kg/m2) 47.2 Body Surface Area (m2) 2.08 Pain Level 0 3 0 0 Oxygen Saturation (%) 98 99 98 98 Blood Pressure Sitting L 120/78 138/84 140/104 118/66 125/87 BP Cuff Size Large Large Large Large Pulse Rate-Sitting (bpm) 70 90 95 96 Pulse Rhythm Regular Regular Regular Flow Rate (l/min) (None (Room Air)) (None (Ro om Air)) (None (Room Air)) FiO2 (%) Temp-Temporal 97.2 97.9 Vital Name 02/21/2020 04:28P 02/21/2020 04:27P 02/21/2020 04:06P 02/03/2020 01:33P 12/12/2019 03:16P Respiration Rate (breaths/min) 16 20 Temp-Tympanic (F) 100.6 98.6 Pain Level 0 3 0 Oxygen Saturation (%) 97 98 98 97 Blood Pressure Sitting L 116/70 122/80 BP Cuff Size Large Large Pulse Rate-Sitting (bpm) 125 117 120 133 Flow Rate (l/min) (None (Room Air)) (None (Room Air)) (None (Sarahi m Air)) (None (Room Air)) FiO2 (%) Note: Lap 1 Resting Vital Name 12/02/2019 09:36A 11/21/2019 07:08A 08/23/2019 11:58A 08/23/2019 11:57A 08/23/2019 11:06A Respiration Rate (breaths/min) 18 20 Temp-Tympanic (F) 99.9 98 Pain Level 0 0 Oxygen Saturation (%) 96 98 [...] 10:51A 08/18/2019 09:19A 08/18/2019 08:57A 08/18/2019 08:27A 06/27/2019 09:42A Respiration Rate (breaths/min) 16 18 20 Temp-Tympanic (F) 99 100.6 Height (in) 60.75 Weight (lb) 254 Body Mass Index (kg/m2) 4 8.4 Body Surface Area (m2) 2. 08 Pain Level 10 10 10 Oxygen Saturation (%) 98 98 98 Blood Pressure Sitting L 116/76 110/76 BP Cuff Size Large Large Large Large Large Pulse Rate-Sitting (bpm) 83 84 106 Pulse Rhythm Regular Regular Flow Rate (l/min) (None (Room Air)) (None (Room Air)) FiO2 (%) 21 21 Blood Pressure Sitting R 140/88 124/86 140/82 Blood Pressure Standing R 142/86 Blood Pressure Supine R 120/80 Pulse Rhythm Irregular Note: BG-92 supine at 9:10 am pt not c/o dizziness pupils smaller in size sitiing at 9/15am pupils dilated larger in size pt c/o dizzinessstanding at 920 am. pupils still dilated and pt swaying and C/O dizziness Vital Name 06/23/2019 09:39A 06/02/2019 09:50A 06/02/2019 09:15A 05/09/2019 10:26A 05/09/2019 09:53A Respiration Rate (breaths/min) 22 22 Temp-Tympanic (F) 99 99.3 Weight (lb) 260 259 Pain Level 8 10 Oxygen Saturation (%) 98 Blood Pressure Sitting L 128/86 140/88 136/86 BP Cuff Size Large Large Large Large Pulse Rate-Sitting (bpm) 92 98 101 92 Pulse Rhythm Regular Regular Flow Rate (l/min) (None (Room Air)) (None (Room Air)) FiO2 (%) 21 21 Pulse Rate-Standing (bpm) 91 Pulse Rate-Supine (bpm) 9 5 Blood Pressure Sitting R 135/86 Blood Pressure Standing R 188/91 Blood Pressure Supine R 1 29/82 Blood Pressure Sitting (mmHg) 134/82 Note: Orthostatic vi anabelle signs, obtained by Radha Marrero RN Vital Name 05/09/2019 08:32A 05/02/2019 10:52A Respiration Rate (breaths/min) 20 20 Temp-Tympanic (F) 99.5 99.3 Weight (lb) 255 255 Pain Level 10 10 Oxygen Saturation (%) 98 97 Blood Pressure Sitting L 130/70 128/90 BP Cuff Size Large Large Pulse Rate-Sitting (bpm) 88 95 Pulse Rhythm Regular Regular Flow Rate (l/min) (None (Room Air)) (None (Room Air)) FiO2 (%) 21 21 Results Includes: Results from 05/02/2019 through 05/02/2020 COVID 19 (RHEONIX) [facility] Ordered by Az Marie DO on 02/04/[address] [place] [address], [id number] Collected: 02/04/2020 Reported: 02/04/2020 tel:[phone] Note: COVID Reason [place] Admission Priority COVID 19 (RHEONIX) NOT-DETECTED (NOTDETECTED) None Note: The [employer] COVID-19 MDx Assay is an endpoint RT-PCR assay intended for the qualitative detection of nucleic acid from SARS-CoV-2 in nasopharyngeal swabs. COVID testing using the [employer] analyzer was developed for the purpose of [...] Observer: COVID 19 (R) COVID 19 (RHEONIX) [id number] (A) Reviewed by Az Marie DO on ; All test results are final unless otherwise noted. Reported Physicians [facility] Ordered by Az Marie DO on 02/04/[address], [address] Collected: 02/04/2020 Reported: 02/04/2020 tel:[phone] Reported Physicians See Note None Note: Reported [...] unless otherwise noted. CBC w/ Auto Diff [facility] Ordered by Az Marie DO on 08/23/[address], [address] Collected: 08/23/2019 Reported: 08/23/2019 tel:[phone] BASO # (AUTO) 0.06 3/uL (0.00-0.20) N [...] final unless otherwise noted. HCG QUALITATIVE SPECIMEN [facility] Ordered by Az Marie DO on 08/23/[address] [place] [address], [id number] Collected: 08/23/2019 Reported: 08/23/2019 tel:[phone] HCG QUALITATIVE SPECIMEN SERUM None Note: Responsible Observer: HCG QL SPECI MEN HCG QUALITATIVE 300.96822 (A) Reviewed by Az Marie DO on ; All test results are final unless otherwise noted. *HCG QUALITATIVE SERUM [facility] Ordered by Az Marie DO on 08/23/[address] [place] [address], [address] Collected: 08/23/2019 Reported: 08/23/2019 tel:[phone] HCG RESULT,S NEGATIVE None Note: Reference range is Negative "Extreme" early may have low levels of HCG present. If is suspected, repeat testing with a new specimen in 48-72 hoursResponsible Observer: HCG RESULT,S HCG RESULT,S 300.6001 (A) Reviewed by Az Marie DO on ; All test results are final unless otherwise noted. COMPREHENSIVE METABOLIC PANEL [facility] Ordered by Az Marie DO on 08/23/[address], [address] Collected: 08/23/2019 Reported: 08/28/2019 tel:[phone] Note: Has Patient Fasted For The Past [...] are final unless otherwise noted. GLYCOSYLATED HGBA1C [facility] Ordered by Az Marie DO on 08/23/[address], [address] Collected: 08/23/2019 Reported: 08/28/2019 tel:[phone] Note: Has Patient Fasted For The Past 12 Hours? N Has Patient Fasted For The Past 12 Hours? Y GLYCOSYLATED HGBA1C 5.1 % (4.1-6.5) N (Normal) Note: Responsible Observer: HGB A1C GLYC OSYLATED HGBA1C 300.0800 (A) Reviewed by Az Marie DO on ; All test results are final unless otherwise noted. LIPID PANEL [facility] Ordered by Az Marie DO on 08/23/[address] [place] [address], [address] Collected: 08/23/2019 Reported: 08/28/2019 tel:[phone] Note: Has Patient Fasted For The Past [...] results are final unless otherwise noted. TSH [facility] Ordered by Az Marie DO on 08/23/[address] [place] [address], [address] Collected: 08/23/2019 Reported: 08/28/2019 tel:[phone] Note: Has Patient Fasted For The Past [...] are final unless otherwise noted. Reported Physicians [facility] Ordered by Az Marie DO on 08/23/[address] [place] [address], [address] Collected: 08/23/2019 Reported: 08/28/2019 tel:[phone] Reported Physicians See Note None Note: Reported Physicians:Ordering: Az Duranending: Az Marie Reviewed by Az Marie DO on ; All test results are final unless otherwise noted. Strep Test [facility] Ordered by Trang TOMPKINS on 08/18/2019 Collected: 08/18/2019 Reported: 08/18/2019 Throat Swab negative N (Normal) Reviewed on 08/18/2019; All test result s are final unless otherwise noted. URINALYSIS [facility] Ordered by Anay Rincon NP on 06/27/[address] [place] [address], [address] Collected: 06/27/2019 Reported: 06/27/2019 tel:[phone] Note: N URINE EPITH MANY PER/LPF (FEW-MOD) [...] are final unless otherwise noted. URINE CULTURE [facility] Ordered by Anay Rincon NP on 06/27/[address] [place] [address], [address] Collected: 06/27/2019 Reported: 06/29/2019 tel:[phone] See Note Chris None Note: Run: 06/29/19 0816 INTERFACED REPORT Name: Diane Schuler Age/Sex: 24/F Location: [facility] Acct: [id number] Unit: [id number] Status: REG REF Room/Bed: Re06/27/19 Disch: Raisa Dr: Anay Rincon I [employer]ER Specimen #: [id number] Ordered : 06/27/19 Collected : 06/27/19 By: OFFICE Received: 06/27/19 By: BONI Source: URINE CC Specimen Description: Comments: Angelo Mccormick Has been collected UCC Procedure Result COLONY COUNT Final COLONY COUNT LESS THAN 1,000 CFU/ML URINE CULTURE Final NO GROWTH 18 HOURS NO SIGNIFICANT GROWTH 42 HOURS URINE CULTURE Preliminary (Corrected) NO GROWTH 18 HOURS END OF REPORT Reviewed by Anay Rincon NP on 06/29; All test results are final unless otherwise noted. Reported Physicians [facility] Ordered by Anay Rincon [employer] on 06/27/[address], [address] Collected: 06/27/2019 Reported: 06/29/2019 tel:[phone] Reported Physicians See Note None Note: Reported Physicians:Ordering: Anay Reyes IAttending: Anay Rincon Reviewed by Anay Rincon NP on 06/29; All test results are final unless otherwise noted. URINALYSIS [facility] Ordered by Az Marie DO on 05/09/[address], [address] Collected: 05/09/2019 Reported: 05/09/2019 tel:[phone] URINE EPITH MODERATE PER/LPF (FEW-MOD) None Note: Responsible Observer: UR EPITH URI NE EPITH 200.1155 (A) APPEARANCE,UR SL CLOUDY (CLEAR) None Note: Responsible Observer: UR APPEAR UR APPEARANCE 200.0250 (A) BILIRUBIN,UR NEGATIVE (NEGATIVE) None Note: Responsible Observer: UR BILI UR B ILIRUBIN 200.0750 (A) COLOR,UR YELLOW (YELLOW) None Note: Responsible Observer: UR COLOR UR COLOR 200.0200 (A) GLUCOSE, UR NEGATIVE MG/DL (NEGATIVE) None Note: Responsible Observer: UR GLU UR GL UCOSE 200.0500 (A) KETONES,UR NEGATIVE MG/DL (NEGATIVE) None Note: Responsible Observer: UR KETO UR K ETONES 200.0600 (A) LEUKOCYTE ESTERASE ,UR LARGE (NEGATIVE) A (Abnormal) Note: Responsible Observer: UR DORA EDDIE ASE UR LEUKOCYTE ESTERASE 200.0725 (A) MUCUS,UR RARE PER_HPF (NONE SEEN) None Note: Responsible Observer: UR MUCUS UR MUCUS 200.2300 (A) NITRATE,UR NEGATIVE (NEGATIVE) None Note: Responsible Observer: UR NIT UR NI TRATE 200.0700 (A) OCCULT BLOOD,UR NEGATIVE (NEGATIVE) None Note: Responsible Observer: UR OCLT BLD UR OCCULT BLOOD 200.0650 (A) PH,UR 5.0 (5.0-8.0) None Note: Responsible Observer: UR PH UR PH 200.0350 (A) PROTEIN,UR NEGATIVE MG/DL (NEGATIVE) None Note: Responsible Observer: UR PROT UR P ROTEIN 200.0450 (A) RBC,UR 1-2 PER_HPF (0-2) None Note: Responsible Observer: UR RBC UR RB C 200.1005 (A) SPECIFIC GRAVITY,UR 1.014 (1.002-1.035) N (Normal) Note: Responsible Observer: SG URINE SPE CIFIC GRAVITY,UR 200.0410 (A) UROBILINOGEN,UR 0.2-1.0 EU_MG/DL (NEG-0-1.0) None Note: Responsible Observer: UR URO UR UR OBILINOGEN 200.0900 (A) WBC,UR 5-9 PER_HPF (<5) A (Abnormal) Note: Responsible Observer: UR WBC UR WB C 200.1055 (A) Reviewed by Az Marie DO on ; All test results are final unless otherwise noted. URINE CULTURE [facility] Ordered by Az Marie DO on 05/09/[address] [place] [address], [address] Collected: 05/09/2019 Reported: 05/11/2019 tel:[phone] See Note Chris None Note: Run: 05/11/19 0755 INTERFACED REPORT Name: Diane Schuler Age/Sex: 24/F Location: [facility] Acct: [id number] Unit: [id number] Status: REG REF Room/Bed: Re05/09/19 Disch: Att Dr: Az Marie DO Specimen #: [id number] Ordered : 05/09/19 Collected : 05/09/19 By: OFFICE Received: 05/09/19 By: ARMOND Source: URINE CC Specimen Description: Comments: Has been collected UCC Procedure Result COLONY COUNT Final COLONY COUNT 15,000 CFU/ML URINE CULTURE Final NO SIGNIFICANT GROWTH 24 HOURS NO SIGNIFICANT GROWTH 48 HOURS URINE CULTURE Preliminary (Corrected) NO SIGNIFICANT GROWTH 24 HOURS END OF REPORT Reviewed by Az Marie DO on ; All test results are final unless otherwise noted. CBC w/ Auto Diff [facility] Ordered by Az Marie DO on 05/09/[address], [address] Collected: 05/09/2019 Reported: 05/09/2019 tel:[phone] BASO # (AUTO) 0.05 10\\^3/uL (0.00-0.20) N (Normal) Note: Responsible Observer: BASO # (AUTO ) BASO # (AUTO) 100.1500 (A) BASO % (AUTO) 0.4 % (0.0-2.0) N (Normal) Note: Responsible Observer: BASO % (AUTO ) BASO % (AUTO) 100.1250 (A) EOS # (AUTO) 0.09 10\\^3/uL (0.00-1.10) N (Normal) Note: Responsible Observer: EOS # (AUTO) EOS # (AUTO) 100.1450 (A) EOS % (AUTO) 0.8 % (0.0-11.0) N (Normal) Note: Responsible Observer: EOS % (AUTO) EOS % (AUTO) 100.1200 (A) GRAN # (AUTO) 7.42 10\\^3/uL (1.50-6.50) H (High) Note: Responsible Observer: GRAN # (AUTO ) GRAN #(AUTO) 100.1325 (A) GRAN % (AUTO) 64.0 % (42.0-75.0) N (Normal) Note: Responsible Observer: GRAN % (AUTO ) GRAN % (AUTO) 100.1000 (A) HEMATOCRIT 43.6 % (35.0-46.0) N (Normal) Note: Responsible Observer: HCT HEMATOCR IT 100.0400 (A) HEMOGLOBIN 14.1 G/DL (11.5-15.6) N (Normal) Note: Responsible Observer: HGB HEMOGLOB IN 100.0300 (A) IG # (AUTO) 0.1 10\\^3/uL (<0.5) None Note: Responsible Observer: IG # (AUTO) IG # (AUTO) 100.1260 (A) IG % (AUTO) 0.4 % (1.00-5.00) None Note: Responsible Observer: IG % (AUTO) IG % (AUTO) 100.1255 (A) LYMPH # (AUTO) 3.5 k/uL (1.0-5.0) N (Normal) Note: Responsible Observer: LYMPH # (AUT O) LYMPH # (AUTO) 100.1350 (A) LYMPH % (AUTO) 30.0 % (20.0-51.0) N (Normal) Note: Responsible Observer: LYMPH % (AUT O) LYMPH % (AUTO) 100.1100 (A) MCH 29.4 PG (27.0-34.0) N (Normal) Note: Responsible Observer: MCH MCH 100 .0600 (A) MCHC 32.3 G/DL (32-36) N (Normal) Note: Responsible Observer: MCHC MCHC 1 00.0650 (A) MCV 91.0 FL (80.0-100.0) N (Normal) Note: Responsible Observer: MCV MCV 100 .0550 (A) MONO # (AUTO) 0.51 k/uL (0.20-1.50) N (Normal) Note: Responsible Observer: MONO # (AUTO ) MONO # (AUTO) 100.1400 (A) MONO % (AUTO) 4.4 % (2.0-15.0) N (Normal) Note: Responsible Observer: MONO % (AUTO ) MONO% (AUTO) 100.1150 (A) MPV 10.2 FL (8.7-13.2) N (Normal) Note: Responsible Observer: MPV MPV 100 .0950 (A) PLATELET COUNT 381 10\\^3/uL (130-400) N (Normal) Note: Responsible Observer: PLT PLATELET COUNT 100.0850 (A) RED BLOOD COUNT 4.79 10\\^6/uL (3.90-5.20) N (Normal) Note: Responsible Observer: RBC RED BLOO D COUNT 100.0250 (A) RDW 11.9 % (11.5-14.5) N (Normal) Note: Responsible Observer: RDW RDW 100 .0700 (A) WHITE BLOOD COUNT 11.60 10\\^3/uL (4.00-10.50) H (High) Note: Responsible Observer: WBC WHITE BL OOD COUNT 100.0150 (A) Reviewed by Az Marie DO on ; All test results are final unless otherwise noted. HCG QUALITATIVE SPECIMEN [facility] Ordered by Az Marie DO on 05/09/[address] [place] [address], [address] Collected: 05/09/2019 Reported: 05/09/2019 tel:[phone] HCG QUALITATIVE SPECIMEN SERUM None Note: Responsible Observer: HCG QL SPECI MEN HCG QUALITATIVE 300.22236 (A) Reviewed by Az Marie DO on ; All test results are final unless otherwise noted. *HCG QUALITATIVE SERUM [facility] Ordered by Az Marie DO on 05/09/[address] [place] [address], [address] Collected: 05/09/2019 Reported: 05/09/2019 tel:[phone] HCG RESULT,S NEGATIVE None Note: Reference range is Negative "Extreme" early may have low levels of HCG present. If is suspected, repeat testing with a new specimen in 48-72 hoursResponsible Observer: HCG RESULT,S HCG RESULT,S 300.6001 (A) Reviewed by Az Marie DO on ; All test results are final unless otherwise noted. COMPREHENSIVE METABOLIC PANEL [facility] Ordered by Az Marie DO on 05/09/[address] [place] [address], [address] Collected: 05/09/2019 Reported: 05/09/2019 tel:[phone] Note: Has Patient Fasted For The Past 12 Hours? N ALB/GLOB RATIO 1.9 G/DL (1.0-2.7) N (Normal) Note: Responsible Observer: A/G RATIO AL B/GLOB RATIO 300.4100 (A) ALBUMIN 4.6 G/DL (3.0-5.1) N (Normal) Note: Responsible Observer: ALB ALBUMIN 300.3900 (A) ALKALINE PHOSPHATASE 116 U/L (40-140) N (Normal) Note: Responsible Observer: ALK PHOS ALK STEPHANI PHOSPHATASE 300.3110 (A) ALT 52 U/L (5-48) H (High) Note: Responsible Observer: ALT/SGPT ALT 300.3100 (A) AST 27 U/L (5-40) N (Normal) Note: Responsible Observer: AST/SGOT AST 300.3050 (A) BUN/CREAT RATIO 22 (8-36) N (Normal) Note: Responsible Observer: BUN/CREAT RA OPHELIA BUN/CREAT RATIO 300.0450 (A) BILIRUBIN,TOTAL 0.3 MG/DL (0.1-1.3) N (Normal) Note: Responsible Observer: TOTAL BILI T OTAL BILIRUBIN 300.2700 (A) BLOOD UREA NITRO 11 MG/DL (7-25) N (Normal) Note: Responsible Observer: BUN BLOOD UR EA NITROGEN 300.0350 (A) CA 9.5 MG/DL (8.7-10.5) N (Normal) Note: Responsible Observer: CA CALCIUM 300.2200 (A) CHLORIDE 105 MEQ/L (94-110) N (Normal) Note: Responsible Observer: CL CHLORIDE 300.0200 (A) CARBON DIOXIDE 27 MEQ/L (22-33) N (Normal) Note: Responsible Observer: CO2 CARBON D IOXIDE 300.0250 (A) CREATININE 0.5 MG/DL (0.6-1.4) L (Low) Note: Responsible Observer: CREAT CREATI NINE 300.0400 (A) ANION GAP 15 (5-16) N (Normal) Note: Responsible Observer: ANION GAP AN ION GAP 300.0300 (A) GFR > 60.0 ML/MIN None Note: GFR normal is >60 The MDRD GFR ca lculation is considered valid between the ages of 18 and 75 years only. The GFR is an estimate of the Glomerular Filtration Rate. It is considered accurate in evaluating patients with Chronic Kidney Disease,but may underestimate kidney function in Healthy Patients.Responsible Observer: GFR GFR 300.0410 (A) GLOBULIN 2.4 G/DL (1.5-3.5) N (Normal) Note: Responsible Observer: GLOB GLOBULI N 300.4050 (A) GLUCOSE 88 MG/DL (70-100) N (Normal) Note: Responsible Observer: GLU GLUCOSE 300.0500 (A) POTASSIUM 4.4 MEQ/L (3.5-5.3) N (Normal) Note: Responsible Observer: K POTASSIUM 300.0150 (A) SODIUM 143 MEQ/L (135-145) N (Normal) Note: Responsible Observer: NA SODIUM 3 00.0100 (A) TOTAL PROTEIN 7.0 G/DL (5.9-8.3) N (Normal) Note: Responsible Observer: TP TOTAL PRO TEIN 300.3750 (A) Reviewed by Az Marie DO on ; All test results are final unless otherwise noted. AMYLASE [facility] Ordered by Az Marie DO on 05/09/[address] [place] [address], [address] Collected: 05/09/2019 Reported: 05/09/2019 tel:[phone] Note: Has Patient Fasted For The Past 12 Hours? N AMYLASE 47 U/L (20-115) N (Normal) Note: Responsible Observer: CHARITO AMYLASE 300.4900 (A) Reviewed by Az Marie DO on ; All test results are final unless otherwise noted. LIPASE [facility] Ordered by Az Marie DO on 05/09/[address] [place] [address], [address] Collected: 05/09/2019 Reported: 05/09/2019 tel:[phone] Note: Has Patient Fasted For The Past 12 Hours? N LIPASE 29 U/L (6-51) N (Normal) Note: Responsible Observer: LIP LIPASE 300.4950 (A) Reviewed by Az Marie DO on ; All test results are final unless otherwise noted. HEPATITIS PROF A,B,C [facility] Ordered by Az Marie DO on 05/09/[address] [place] [address], [address] Collected: 05/09/2019 Reported: 05/10/2019 tel:[phone] HEPATITIS A ANTIBODY, IgM,S Negative (Negative) None Note: Responsible Observer: Hep A Ab,IgM HEPATITIS A ANTIBODY, IgM,S 259950 800.1605 (A) HEPATITIS A ANTIBODY, Total,S Negative (Negative) None Note: Responsible Observer: Hepatitis A Ab, HEPATITIS A ANTIBODY, Total,S 399318 800.1610 (A) HEPATITIS B CORE ANTIBODY,IGM Negative (Negative) None Note: Responsible Observer: HBcAB,IgM,S HEPATITIS B CORE ANTIBODY,IGM 915389 800.1625 (A) HEP B CORE ANTIBODY,TOTAL Negative (Negative) None Note: Responsible Observer: HBcAB, Total ,S HEP B CORE ANTIBODY,TOTAL 817316 800.1630 (A) HEPATITIS B SURF ANTIGEN SCRN Negative (Negative) None Note: Responsible Observer: HBsAG Screen ,S HEPATITIS B SURF ANTIGEN SCRN 000888 800.1615 (A) HCV Ab,S <0.1 s/co_ratio (0.0-0.9) None Note: Responsible Observer: HCV Ab,S HCV Ab,S 699820 800.1641 (A) HCV COMMENT See Note None Note: Non reactive HCV antibody screen is consistent with no HCV infection, unless recent infection is suspected or other evidence exists to indicate HCV infection. Performed at: RN - [facility] [address] [id number] Square Cutter: Linda Arteaga MD, Phone: [phone] Observer: HCV COMMENT HCV COMMENT 906047 800.1648 (A) HEPATITIS B SURFACE ANTIBODY Non Reactive (.) None Note: Non Reactive: Incon sistent with immunity, less than 10 mIU/mL Reactive: Consistent with immunity, greater than 9.9 mIU/mLResponsible Observer: HBsAB,S HEPATITIS B SURFACE ANTIBODY 207189 800.1636 (A) Reviewed by Az Marie DO on ; All test results are final unless otherwise noted. Reported Physicians [facility] Ordered by Az Marie DO on 05/09/[address], [address] Collected: 05/09/2019 Reported: 05/11/2019 tel:[phone] Reported Physicians See Note None Note: Reported Physicians:Ordering: Az Duranending: Az Marie Reviewed by Az Marie DO on ; All test results are final unless otherwise noted. Glucose [facility] Ordered by Az Marie DO on 05/09/2019 Specimen Source: Whole blood Collected: 05/09/2019 R eported: 05/09/2019 Glucose Level 78 A (Abnormal) Reviewed on 05/09/2019; All test result s are final unless otherwise noted. History of Present Illness History of Present Illness not supported for this document typeNo History of Present Illness Recorded Social History Description Last Updated Smoking status 05/01/2020 : Never smoker 05/01/2020 Alcohol use 09/08/2019 Denies alcohol consumption 04/15 No secondhand cigarette smoke exposure 05/01/2020 No violent traumatic event 05/01/2020 Not avoiding thoughts, feelings, or disc ussions related to stressful experience from past 05/01/2020 Not using drugs 09/08/2019 05/01/2020 Procedures and Surgical/Medical History Includes: Procedures from 05/02/2019 through 05/02/2020 Procedures CPT-4 Diagnosis Performing Provider Service Location Service Date Immunization Administration (includes Percutaneous, [place] [address]1967 Encounter for immunization Chisholm Amara [facility] 03/12/2020 Influenza virus vaccine, preservative free, 6 months and up [address] Encounter for immunization Chisholm Amara [facility] 03/12/2020 Removal of impacted cerumen using irrigation 00368 Imp acted cerumen, bilateral Beth Bharat Frausto [employer] [facility] 03/05/2020 Ekg With Interpretation and Report 65055 Chest pain, u nspecified Patricia Mclain [employer] [facility] 02/21/2020 Ekg With Interpretation and Report 03013 Chest pain, u nspecified [facility] 02/03/2020 Glucose, Blood by Glucose Monitoring Device([place] [id number] [facility] Ekg With Interpretation and Report 68634 [facility]2019 Ekg With Interpretation and Report 44695 Dizziness and giddiness Az [facility] 08/23/2019 Noninvasive Ear or Pulse Oximetry for Ox ygen Saturation; Mul (distinct separate procedure) 81400 Dizziness and giddiness [facility] 08/23/2019 Rapid Strep Test (QW) 90715 Acute pharyngitis, unspecified Amara Mosqueda [facility] 08/18/2019 Urinalysis, by Dip Stick or Tablet Reagent [place] [address] Unspecified abdominal pain Trang Panda [facility] 08/18/2019 Urinalysis, by Dip Stick or Tablet Reagent for Bilirubin, Gl (QW) 78173 Urinary tract infection, site not specified Anay Rincon [facility] 06/27/2019 Glucose, Blood by Glucose Monitoring Device([place] [id number] Unspecified abdominal pain Patricia Mclain [facility] 06/02/2019 Ekg With Interpretation and Report 36378 Chest pain, u nspecified Patricia Mclain [facility] 06/02/2019 Limited Oral Evaluation D0140 Encounter for de ntal exam and cleaning w/o abnormal findings [facility] Deborah Simpson [facility] 05/27/2019 Periodic Oral Evaluation, [facility] D0120 En counter for dental exam and cleaning w/o abnormal findings [facility] Deborah Simpson [facility] 9 intraoral-periapical first radiographic image D0220 Encounter for dental exam and cleaning w/o abnormal findings [facility] Deborah Simpson [facility] 05/27 Glucose, Blood by Glucose Monitoring [place]) [place] [id number] Epigastric pain Az Marie [facility] 05/09/2019 Surgical History Last Updated History of midfoot capsulotomy and poste rior release with tendon lengthening bette, Dr Blackwell, childhood, for club foot bilat 05/01/2020 Family History Includes: Family History in patient's chart Description Last Updated Family history of diabetes mellitus father 0 Family history of heart disease father 05/01/2020 Family history of hypertension father 05/01/2020 Family history of not using drugs - family history Maternal history of depression 05/01/2020 Maternal history of not using drugs 05/01/2020 No family history of depression - family history No paternal history of depression 05/01/2020 Paternal history of not using drugs 05/01/2020 Review of Systems Review of Systems not supported for this document typeNo Review of Systems Recorded Mental Status Mental Status not supported for this document type Description Oriented to time, place, and person No anxiety Not avoiding thoughts, feelings, or disc ussions related to stressful experience from past Depression - Appears to be doing well t octaviano. No concerns Functional Status Functional Status not supported for [...] Upper Left Arm Complete (Administered) [facility] Note: [employer]- [employer] Hep B 1 1994 Complete (Reported) [...] Hives 01/10/2008 Active Encounters Includes: Encounters from 05/02/2019 through 05/02/2020 Encounter Provider Location Date Diagnosis AHR Trang [facility] 05/01/2020 Rout ine History and Physical, Depression, Lung Neoplasm Uncertain Behavior Chart Prep Trang Enamorado [facility] 04/24/2020 Acute L1 Aster Sims Max [facility] 04/10/2020 Abdomina l Pain, Difficulty Breathing (dyspnea) Acute L3 Az Marie [facility] 03/12/2020 De pression, Generalized Anxiety Disorder, Obesity Morbid Emergency Beth Bharat Frausto [facility] 03/05/20 20 Assessment of Dizziness, Cerumen Impaction Emergency Az Marie 03/02/2020 Correspondence 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 [facility] 0 Emergency Patricia Mclain [facility] 02/21/2020 Suicide Risk, Chest Pain, Intellectual Disabilities, Assessment of Dizziness, Assessment of Difficulty Breathing (dyspnea) Referral Order Az Marie DO 02/13/2020 D Emergency Az Marie [facility] 02/03/2020 Ch est Pain, Depression, Lung Neoplasm Uncertain Behavior, Lactose Intolerance Telephonic Encounter Az Hernandezello [facility] 020 Depression, Lung Neoplasm Uncertain Behavior, Lactose Intolerance Telephonic Encounter Az J Curtischarlettejulieta [facility] 020 Dizziness, Depression, Lung Neoplasm Uncertain Behavior, Lactose Intolerance Correspondence Az Maloney Cynthia 12/07/2019 Emergency Az J Curtischarlettejulieta [facility] 12/02/2019 As sessment of Dizziness Lab Order Az Amara Marie 11/25/2019 Hospital Follow-up Az J Cynthia [facility] 0 Dizziness, Depression, Lung Neoplasm Uncertain Behavior, Lactose Intolerance, Vasovagal Syncope, Pneumonia Telehealth Az J Cynthia 09/08/2019 Dizzi ness, Depression, Lung Neoplasm Uncertain Behavior, Lactose Intolerance Telehealth Az J Cynthia [facility] 09/08/2019 Correspondence Az Amara Marie 09/05/2019 Chart Prep Az Amara Marie 09/02/2019 Correspondence Radha Etienne [facility] 0 Medication Follow-up Az J Cynthia [facility] 020 Dizziness, Depression, Lactose Intolerance, Lung Neoplasm Uncertain Behavior Hospital Follow-up Trang [facility] 08/18/2019 Abdominal Pain, Dizziness, Pharyngitis Correspondence Az Amara Marie 08/16/2019 Referral Order Az J Cynthia 06/29/2019 Walk-In Anay Rincon [facility] 06/27/2019 Sinus itis, Urinary Tract Infection Hospital Follow-up Azbrit Marie [facility] 0 Urinary Tract Infection, Ovarian Cyst Left, Abdominal Pain--epigastric, Elevated Liver Enzymes Walk-In Patricia Mclain [facility] 06/02/2019 Abdomina l Pain, Nausea, Chest Pain, Assessment of Dizziness [Patient Encounter] Jere Simpson [facility] 05/27/2019 Correspondence Az Marie 05/10/2019 Follow-up Acute Az Marie [facility] 05/09/2019 Urinary Tract Infection, Ovarian Cyst Left, Elevated Liver Enzymes, Abdominal Pain--epigastric Correspondence Az Marie DO 05/06/2019 Hospital Follow-up Az Marie DO [facility] 9 Elevated Liver Enzymes, Lung Neoplasm Uncertain Behavior, Ovarian Cyst Left, Noncardiac Chest Pain, Urinary Tract Infection, Abdominal Pain--llq Insurance Includes: Active Insurance Policies Plan Name Member ID Group # Subscriber Relationship Effective Da alin 1 - [employer] Managed Medicaid [id number] Diane Panda Schuler Yvette f 06/15/2017 - Unknown 2 - D [employer] Man[employer] [id number] Diane [employer] Self Advance Directives Includes: Current [...] up with your medicaid managed car e high risk case manager, Evelia.You have stopped going to [employer].Guardianship has been discussed with grandmother, I have [...] diabetesmoniter. Paperwork will be sent to the [facility].PPD was done today and needs [...] Depression screening is recommended by violette menard [facility], and your screening did not show current [...]
--- OUTSIDE RECORDS SUMMARY | 2020-07-25 11:52 | CCD ---
Author Author [facility] Organization [facility] Address Unknown Phone Unavailable Care Team Providers Care Instructor Adjunct Pharmacy Technician Name Role Phone Amara PINO III Unavailable Unavailable ALIASES , DEFAULT / GENERIC / UNKNOWN PROVIDER * Unavailable Unavailable ALIASES , DEFAULT / GENERIC / UNKNOWN PROVIDER * Unavailable Unavailable ALIASES , DEFAULT / GENERIC / UNKNOWN PROVIDER * Unavailable Unavailable ALIASES , DEFAULT / GENERIC / UNKNOWN PROVIDER * Unavailable Unavailable ALIASES , DEFAULT / GENERIC / UNKNOWN PROVIDER * Unavailable Unavailable ALIASES , DEFAULT / GENERIC / UNKNOWN PROVIDER * Unavailable Unavailable ALIASES , DEFAULT / GENERIC / UNKNOWN PROVIDER * Unavailable Unavailable ALIASES , DEFAULT / GENERIC / UNKNOWN PROVIDER * Unavailable Unavailable ALIASES , DEFAULT / GENERIC / UNKNOWN PROVIDER * Unavailable Unavailable ALIASES , DEFAULT / GENERIC / UNKNOWN PROVIDER * Unavailable Unavailable ALIASES , DEFAULT / GENERIC / UNKNOWN PROVIDER * Unavailable Unavailable ALIASES , DEFAULT / GENERIC / UNKNOWN PROVIDER * Unavailable Unavailable ALIASES , DEFAULT / GENERIC / UNKNOWN PROVIDER * Unavailable Unavailable ALIASES , DEFAULT / GENERIC / UNKNOWN PROVIDER * Unavailable Unavailable ALIASES , DEFAULT / GENERIC / UNKNOWN PROVIDER * Unavailable Unavailable ALIASES , DEFAULT / GENERIC / UNKNOWN PROVIDER * Unavailable Unavailable ALIASES , DEFAULT / GENERIC / UNKNOWN PROVIDER * Unavailable Unavailable ALIASES , DEFAULT / GENERIC / UNKNOWN PROVIDER * Unavailable Unavailable ALIASES , DEFAULT / GENERIC / UNKNOWN PROVIDER * Unavailable Unavailable ALIASES , DEFAULT / GENERIC / UNKNOWN PROVIDER * Unavailable Unavailable ALIASES , DEFAULT / GENERIC / UNKNOWN PROVIDER * Unavailable Unavailable ALIASES , DEFAULT / GENERIC / UNKNOWN PROVIDER * Unavailable Unavailable ALIASES , DEFAULT / GENERIC / UNKNOWN PROVIDER * Unavailable Unavailable ALIASES , DEFAULT / GENERIC / UNKNOWN PROVIDER * Unavailable Unavailable ALIASES , DEFAULT / GENERIC / UNKNOWN PROVIDER * Unavailable Unavailable ALIASES , DEFAULT / GENERIC / UNKNOWN PROVIDER * Unavailable Unavailable ALIASES , DEFAULT / GENERIC / UNKNOWN PROVIDER * Unavailable Unavailable ALIASES , DEFAULT / GENERIC / UNKNOWN PROVIDER * Unavailable Unavailable ALIASES , DEFAULT / GENERIC / UNKNOWN PROVIDER * Unavailable Unavailable ALIASES , DEFAULT / GENERIC / UNKNOWN PROVIDER * Unavailable Unavailable ALIASES , DEFAULT / GENERIC / UNKNOWN PROVIDER * Unavailable Unavailable ALIASES , DEFAULT / GENERIC / UNKNOWN PROVIDER * Unavailable Unavailable ALIASES , DEFAULT / GENERIC / UNKNOWN PROVIDER * Unavailable Unavailable ALIASES , DEFAULT / GENERIC / UNKNOWN PROVIDER * Unavailable Unavailable ALIASES , DEFAULT / GENERIC / UNKNOWN PROVIDER * Unavailable Unavailable ALIASES , DEFAULT / GENERIC / UNKNOWN PROVIDER * Unavailable Unavailable ALIASES , DEFAULT / GENERIC / UNKNOWN PROVIDER * Unavailable Unavailable ALIASES , DEFAULT / GENERIC / UNKNOWN PROVIDER * Unavailable Unavailable ALIASES , DEFAULT / GENERIC / UNKNOWN PROVIDER * Unavailable Unavailable ALIASES , DEFAULT / GENERIC / UNKNOWN PROVIDER * Unavailable Unavailable ALIASES , DEFAULT / GENERIC / UNKNOWN PROVIDER * Unavailable Unavailable ALIASES , DEFAULT / GENERIC / UNKNOWN PROVIDER * Unavailable Unavailable ALIASES , DEFAULT / GENERIC / UNKNOWN PROVIDER * Unavailable Unavailable ALIASES , DEFAULT / GENERIC / UNKNOWN PROVIDER * Unavailable Unavailable ALIASES , DEFAULT / GENERIC / UNKNOWN PROVIDER * Unavailable Unavailable ALIASES , DEFAULT / GENERIC / UNKNOWN PROVIDER * Unavailable Unavailable ALIASES , DEFAULT / GENERIC / UNKNOWN PROVIDER * Unavailable Unavailable Vinicio SÁNCHEZ MD Unavailable Unavailable Vinicio SÁNCHEZ MD Unavailable Unavailable Vinicio SÁNCHEZ MD Unavailable Unavailable Vinicio SÁNCHEZ MD Unavailable Unavailable Ramirez, P Taurus Unavailable Unavailable Ramirez, P Taurus Unavailable Unavailable Ramirez, P Taurus Unavailable Unavailable Ramirez, P Taurus Unavailable Unavailable Ramirez, P Taurus Unavailable Unavailable Ramirez, P Taurus Unavailable Unavailable Ming, Crystal HOSTLER HELPER Unavailable Unavailable Bethany Pabon MD Unavailable Bethany Pabon MD Unavailable Bethany Pabon MD Unavailable Isidro Cote [facility] Unavailable Unavailable LYNNE COHEN . Unavailable Unavailable Chemo, A Patricia SUBSTITUTE TEACHER Unavailable Unavailable Beaverton, A Patricia SUBSTITUTE TEACHER Unavailable Unavailable Beaverton, A Patricia SUBSTITUTE TEACHER Unavailable Unavailable Chemo, A Patricia SUBSTITUTE TEACHER Unavailable Unavailable Beaverton, A Patricia SUBSTITUTE TEACHER Unavailable Unavailable Beaverton, A Patricia SUBSTITUTE TEACHER Unavailable Unavailable Beaverton, A Patricia SUBSTITUTE TEACHER Unavailable Unavailable Beaverton, A Patricia SUBSTITUTE TEACHER Unavailable Unavailable Chemo, A Patricia SUBSTITUTE TEACHER Unavailable Unavailable Beaverton, A Patricia SUBSTITUTE TEACHER Unavailable Unavailable Beaverton, A Patricia SUBSTITUTE TEACHER Unavailable Unavailable Beaverton, A Patricia SUBSTITUTE TEACHER Unavailable Unavailable Beaverton, A Patricia SUBSTITUTE TEACHER Unavailable Unavailable Chemo, A Patricia SUBSTITUTE TEACHER Unavailable Unavailable Chemo, A Patricia SUBSTITUTE TEACHER Unavailable Unavailable Chemo, A Patricia SUBSTITUTE TEACHER Unavailable Unavailable Beaverton, A Patricia SUBSTITUTE TEACHER Unavailable Unavailable Beaverton, A Patricia SUBSTITUTE TEACHER Unavailable Unavailable Beaverton, A Patricia SUBSTITUTE TEACHER Unavailable Unavailable Beaverton, A Patricia SUBSTITUTE TEACHER Unavailable Unavailable [place]averton, A Patricia SUBSTITUTE TEACHER Unavailable Unavailable MIKEL MEJIA MD Unavailable MIKEL MEJIA MD Unavailable MIKEL MEJIA MD Unavailable MIKEL MEJIA MD Unavailable Yuen, P Rob DO Unavailable Unavailable Yuen, P Rob DO Unavailable Unavailable Yuen, P Rob DO Unavailable Unavailable Yuen, P Rob DO Unavailable Unavailable Yuen, P Rob DO Unavailable Unavailable Yuen, P Rob DO Unavailable Unavailable Yuen, P Rob DO Unavailable Unavailable Yuen, P Rob DO Unavailable Unavailable Yuen, P Rob DO Unavailable Unavailable Yuen, P Rob DO Unavailable Unavailable Yuen, P Rob DO Unavailable Unavailable Yuen, P Rob DO Unavailable Unavailable Yuen, P Rob DO Unavailable Unavailable Yuen, P Rob DO Unavailable Unavailable Yuen, P Rob DO Unavailable Unavailable Yuen, P Rob DO Unavailable Unavailable Yuen, P Rob DO Unavailable Unavailable Amara Marie DO Unavailable Unavailable Amara Marie DO Unavailable Unavailable Carguello, J Harriet DO Unavailable Unavailable Carguello J Harriet DO Unavailable Unavailable Carguello, J Harriet DO Unavailable Unavailable Carguello J Harriet DO Unavailable Unavailable Carguello, J Harriet DO Unavailable Unavailable Carguello, J Harriet DO Unavailable Unavailable Carguello, J Harriet DO Unavailable Unavailable Carguello, J Harriet DO Unavailable Unavailable Carguello, J Harriet DO Unavailable Unavailable Carguello, J Harriet DO Unavailable Unavailable Carguello, J Harriet DO Unavailable Unavailable Carguello, J Harriet DO Unavailable Unavailable Carguello, J Harriet DO Unavailable Unavailable Carguello, J Harriet DO Unavailable Unavailable Carguello, J Harriet DO Unavailable Unavailable Carguello, J Harriet DO Unavailable Unavailable Carguello, J Harriet DO Unavailable Unavailable Carguello, J Harriet DO Unavailable Unavailable Carguello, J Harriet DO Unavailable Unavailable Carguello, J Harriet DO Unavailable Unavailable Carguello, J Harriet DO Unavailable Unavailable Carguello, J Harriet DO Unavailable Unavailable Carguello, J Harriet DO Unavailable Unavailable Carguello J Harriet DO Unavailable Unavailable Carguello J Harriet DO Unavailable Unavailable Carguello J Harriet DO Unavailable Unavailable Carguello, J Harriet DO Unavailable Unavailable Carguello, J Harriet DO Unavailable Unavailable Carguello, J Harriet DO Unavailable Unavailable Carguello, J Harriet DO Unavailable Unavailable Carguello, J Harriet DO Unavailable Unavailable Carguello, J Harriet DO Unavailable Unavailable Carguello, J Harriet DO Unavailable Unavailable Carguello, J Harriet DO Unavailable Unavailable Carguello, J Harriet DO Unavailable Unavailable Carguello J Harriet DO Unavailable Unavailable Carguello J Harriet DO Unavailable Unavailable Carguello J Harriet DO Unavailable Unavailable Carguello J Harriet DO Unavailable Unavailable Carguello, J Harriet DO Unavailable Unavailable Carguello, J Harriet DO Unavailable Unavailable Carguello J Harreit DO Unavailable Unavailable Carguello J Hariret DO Unavailable Unavailable Carguello J Harriet DO Unavailable Unavailable Carguello, J Harriet DO Unavailable Unavailable Carguello, J Harriet DO Unavailable Unavailable Carguello, J Harriet DO Unavailable Unavailable Carguello J Harriet DO Unavailable Unavailable Carguello J Harriet DO Unavailable Unavailable Carguello J Harriet DO Unavailable Unavailable Carguello, J Harriet DO Unavailable Unavailable Carguello, J Harriet DO Unavailable Unavailable Carguello, J Harriet DO Unavailable Unavailable Carguello, J Harriet DO Unavailable Unavailable Carguello, J Harriet DO Unavailable Unavailable Carguello, J Harriet DO Unavailable Unavailable Carguello, J Harriet DO Unavailable Unavailable Carguello, J Harriet DO Unavailable Unavailable Carguello, J Harriet DO Unavailable Unavailable Carguello, J Harriet DO Unavailable Unavailable Carguello, J Harriet DO Unavailable Unavailable Carguello, J Harriet DO Unavailable Unavailable Carguello, J Harriet DO Unavailable Unavailable Carguello, J Harriet DO Unavailable Unavailable Carguello, J Harriet DO Unavailable Unavailable Carguello, J Harriet DO Unavailable Unavailable Carguello, J Harriet DO Unavailable Unavailable Carguello, J Harriet DO Unavailable Unavailable Carguello, J Harriet DO Unavailable Unavailable Carguello, J Harriet DO Unavailable Unavailable Carguello, J Harriet DO Unavailable Unavailable Carguello, J Harriet DO Unavailable Unavailable Carguello, J Harriet DO Unavailable Unavailable Carguello, J Harriet DO Unavailable Unavailable Carguello, J Harriet DO Unavailable Unavailable Carguello, J Harriet DO Unavailable Unavailable Carguello, J Harriet DO Unavailable Unavailable Carguello, J Harriet DO Unavailable Unavailable Carguello, J Harriet DO Unavailable Unavailable Carguello, J Harriet DO Unavailable Unavailable Carguello, J Harriet DO Unavailable Unavailable LUBEGA, N JULIA Unavailable Unavailable SHUKRI .Dario . Unavailable Unavailable Panda Irwin MD Unavailable Unavailable Panda Irwin MD Unavailable Unavailable Panda Irwin MD Unavailable Unavailable Panda Irwin MD Unavailable Unavailable Panda Irwin MD Unavailable Unavailable Panda Irwin MD Unavailable Unavailable Panda Iwrin MD Unavailable Unavailable Panad Irwin MD Unavailable Unavailable Panda Irwin MD Unavailable Unavailable Panda Irwin MD Unavailable Unavailable Panda Irwin MD Unavailable Unavailable Panda Irwin MD Unavailable Unavailable LANDON ALMANZAR MD Unavailable Unavailable LANDON ALMANZAR MD Unavailable Unavailable LANDON ALMANZAR MD Unavailable Unavailable LANDON ALMANZAR MD Unavailable Unavailable LANDON ALMANZAR MD Unavailable Unavailable LANDON ALMANZAR MD Unavailable Unavailable LANDON ALMANZAR MD Unavailable Unavailable LANDON ALMANZAR MD Unavailable Unavailable LANDON ALMANZAR MD Unavailable Unavailable Panda HUGHES MD Unavailable Unavailable Panda HUGHES MD Unavailable Unavailable Panda HUGHES MD Unavailable Unavailable Panda HUGHES MD Unavailable Unavailable Panda HUGHES MD Unavailable Unavailable Panda HUGHES MD Unavailable Unavailable Panda HUGHES MD Unavailable Unavailable Panda HUGHES MD Unavailable Unavailable Panda HUGHES MD Unavailable Unavailable Panda HUGHES MD Unavailable Unavailable Panda HUGHES MD Unavailable Unavailable Panda HUGHES MD Unavailable Unavailable Panda HUGHES MD Unavailable Unavailable Panda HUGHES MD Unavailable Unavailable Panda HUGHES MD Unavailable Unavailable Panda HUGHES MD Unavailable Unavailable Panda HUGHES MD Unavailable Unavailable CRYSTAL III, J PHOEBE Unavailable Unavailable CRYSTAL III, J PHOEBE Unavailable Unavailable CRYSTAL III, J PHOEBE Unavailable Unavailable CRYSTAL III, J PHOEBE Unavailable Unavailable CRYSTAL III, J PHOEBE Unavailable Unavailable CRYSTAL III, J PHOEBE Unavailable Unavailable Jaimie SHREDDING SPECIALIST/DOO, Radha Unavailable PATRICIA II, F FABIAN DO Unavailable Unavailable PATRICIA II, F FABIAN DO Unavailable Unavailable PATRICIA II, F FABIAN DO Unavailable Unavailable PATRICIA II, F FABIAN DO Unavailable Unavailable PATRICIA II, F FABIAN DO Unavailable Unavailable PATRICIA II, F FABIAN DO Unavailable Unavailable PATRICIA II, F FABIAN DO Unavailable Unavailable PATRICIA II, F FABIAN DO Unavailable Unavailable PATRICIA II, F FABIAN DO Unavailable Unavailable PATRICIA II, F FABIAN DO Unavailable Unavailable PATRICIA II, F FABIAN DO Unavailable Unavailable PATRICIA II, F FABIAN DO Unavailable Unavailable PATRICIA II, F FABIAN DO Unavailable Unavailable PATRICIA II, F FABIAN DO Unavailable Unavailable Crispin, M Aura CRUSHER FOREMAN Unavailable Unavailable Crispin, M Aura CRUSHER FOREMAN Unavailable Unavailable Crispin, M Aura CRUSHER FOREMAN Unavailable Unavailable Crispin, M Aura CRUSHER FOREMAN Unavailable Unavailable Crispin, M Aura CRUSHER FOREMAN Unavailable Unavailable Crispin, M Aura CRUSHER FOREMAN Unavailable Unavailable Crispin, M Aura CRUSHER FOREMAN Unavailable Unavailable Crispin, M Aura CRUSHER FOREMAN Unavailable Unavailable Crispin, M Aura CRUSHER FOREMAN Unavailable Unavailable Crispin, M Aura CRUSHER FOREMAN Unavailable Unavailable Crispin, M Aura CRUSHER FOREMAN Unavailable Unavailable Crispin, M Aura CRUSHER FOREMAN Unavailable Unavailable Crispin, M Aura CRUSHER FOREMAN Unavailable Unavailable Crispin, M Aura CRUSHER FOREMAN Unavailable Unavailable Crispin, M Aura CRUSHER FOREMAN Unavailable Unavailable Crispin, M Aura CRUSHER FOREMAN Unavailable Unavailable Crispin, M Aura CRUSHER FOREMAN Unavailable Unavailable Crispin, M Aura CRUSHER FOREMAN Unavailable Unavailable Crispin, M Aura CRUSHER FOREMAN Unavailable Unavailable Crispin, M Aura CRUSHER FOREMAN Unavailable Unavailable Crispin, M Aura CRUSHER FOREMAN Unavailable Unavailable Crispin, M Aura CRUSHER FOREMAN Unavailable Unavailable Crispin, M Aura CRUSHER FOREMAN Unavailable Unavailable Crispin, M Aura CRUSHER FOREMAN Unavailable Unavailable Crispin, M Aura CRUSHER FOREMAN Unavailable Unavailable Crispin, M Aura CRUSHER FOREMAN Unavailable Unavailable Crispin, M Aura CRUSHER FOREMAN Unavailable Unavailable Crispin, M Aura CRUSHER FOREMAN Unavailable Unavailable Crispin, M Aura CRUSHER FOREMAN Unavailable Unavailable Brushaber, M Trang SUBSTITUTE TEACHER Unavailable Unavailable Brushaber, M Trang SUBSTITUTE TEACHER Unavailable Unavailable Brushaber, M Trang SUBSTITUTE TEACHER Unavailable Unavailable Brushaber, M Trang SUBSTITUTE TEACHER Unavailable Unavailable Brushaber, M Trang SUBSTITUTE TEACHER Unavailable Unavailable Brushaber, M Trang SUBSTITUTE TEACHER Unavailable Unavailable Brushaber, M Trang SUBSTITUTE TEACHER Unavailable Unavailable Brushaber, M Trang SUBSTITUTE TEACHER Unavailable Unavailable Brushaber, M Trang SUBSTITUTE TEACHER Unavailable Unavailable Brushaber, M Trang SUBSTITUTE TEACHER Unavailable Unavailable Brushaber, M Trang SUBSTITUTE TEACHER Unavailable Unavailable Brushaber, M Trang SUBSTITUTE TEACHER Unavailable Unavailable Brushaber, M Trang SUBSTITUTE TEACHER Unavailable Unavailable Brushaber, M Trang SUBSTITUTE TEACHER Unavailable Unavailable Brushaber, M Trang SUBSTITUTE TEACHER Unavailable Unavailable Brushaber, M Trang SUBSTITUTE TEACHER Unavailable Unavailable Brushaber, M Trang SUBSTITUTE TEACHER Unavailable Unavailable Brushaber, M Trang SUBSTITUTE TEACHER Unavailable Unavailable Brushaber, M Trang SUBSTITUTE TEACHER Unavailable Unavailable Brushaber, M Trang SUBSTITUTE TEACHER Unavailable Unavailable Brushaber, M Trang SUBSTITUTE TEACHER Unavailable Unavailable Brushaber, M Trang SUBSTITUTE TEACHER Unavailable Unavailable Brushaber, M Trang SUBSTITUTE TEACHER Unavailable Unavailable Brushaber, M Trang SUBSTITUTE TEACHER Unavailable Unavailable Brushaber, M Trang SUBSTITUTE TEACHER Unavailable Unavailable Brushaber, M Trang SUBSTITUTE TEACHER Unavailable Unavailable Brushaber, M Trang SUBSTITUTE TEACHER Unavailable Unavailable Brushaber, M Trang SUBSTITUTE TEACHER Unavailable Unavailable Brushaber, M Trang SUBSTITUTE TEACHER Unavailable Unavailable Brushaber, M Trang SUBSTITUTE TEACHER Unavailable Unavailable Brushaber, M Trang SUBSTITUTE TEACHER Unavailable Unavailable Brushaber, M Trang SUBSTITUTE TEACHER Unavailable Unavailable Brushaber, M Trang SUBSTITUTE TEACHER Unavailable Unavailable Brushaber, M Trang SUBSTITUTE TEACHER Unavailable Unavailable GLADISCleo PHELPS MD Unavailable Unavailable GLADISCleo MD Unavailable Unavailable GLADISCleo MD Unavailable Unavailable GLADISCleo MD Unavailable Unavailable GLADIS, Cleo LARIOS MD Unavailable Unavailable GLADIS, Cleo LARIOS MD Unavailable Unavailable GLADISCleo MD Unavailable Unavailable GLADISCleo MD Unavailable Unavailable GLADISCleo MD Unavailable Unavailable Vicky Bowen MD Unavailable Unavailable Vicky Bowen MD Unavailable Unavailable Vicky Bowen MD Unavailable Unavailable Vicky Bowen MD Unavailable Unavailable Vicky Bowen MD Unavailable Unavailable Vicky Bowen MD Unavailable Unavailable HALL, JUAN SUBSTITUTE TEACHER Unavailable Unavailable HALL, JUAN SUBSTITUTE TEACHER Unavailable Unavailable HALL JUAN SUBSTITUTE TEACHER Unavailable Unavailable Amara SHETH MD Unavailable Unavailable Amara SHETH MD Unavailable Unavailable Amara SHETH MD Unavailable Unavailable Amara SHETH MD Unavailable Unavailable Amara SHETH MD Unavailable Unavailable Amara SHETH MD Unavailable Unavailable Amara SHETH MD Unavailable Unavailable Amara SHETH MD Unavailable Unavailable Amara SHETH MD Unavailable Unavailable Llanos, Semaj Demetrice MHC Unavailable Unavailable Althouse, Mitzy SUBSTITUTE TEACHER Unavailable Unavailable Semaj COSTA MD Unavailable Unavailable Semaj COSTA MD Unavailable Unavailable Semaj COSTA MD Unavailable Unavailable Semaj COSTA MD Unavailable Unavailable Semaj COSTA MD Unavailable Unavailable Semaj COSTA MD Unavailable Unavailable Semaj COSTA MD Unavailable Unavailable Semaj COSTA MD Unavailable Unavailable STAHL, PRATISHTHA Unavailable Unavailable Calvin, Kwi Yeon DDS Unavailable Unavailable Calvin, Kwi Yeon DDS Unavailable Unavailable Calvin, Kwi Yeon DDS Unavailable Unavailable Candice Arrieta MD Unavailable Unavailable Candice Arrieta MD Unavailable Unavailable Candice Arrieta MD Unavailable Unavailable Candice Arrieta MD Unavailable Unavailable Candice Arrieta MD Unavailable Unavailable Candice Arrieta MD Unavailable Unavailable Candice Arrieta MD Unavailable Unavailable Candice Arrieta MD Unavailable Unavailable Candice Arrieta MD Unavailable Unavailable Candice Arrieta MD Unavailable Unavailable Candice Arrieta MD Unavailable Unavailable Candice Arrieta MD Unavailable Unavailable Meenakshi, Candice MD Unavailable Unavailable Meenakshi, Gopaleh MD Unavailable Unavailable Meenakshi, Karenjeeh MD Unavailable Unavailable Meenakshi, Gopaleh MD Unavailable Unavailable Meenakshi, Karenjeeh MD Unavailable Unavailable Meenakshi, Karenjeeh MD Unavailable Unavailable Meenakshi, Wajeeh MD Unavailable Unavailable Cizenski, Jennalee Unavailable Unavailable Cizenski, Jennalee Unavailable Unavailable Cizenski, Jennalee Unavailable Unavailable KHAN, W JAYME PA Unavailable Unavailable KHAN, W JAYME PA Unavailable Unavailable KHAN, W JAYME PA Unavailable Unavailable KHAN, W JAYME PA Unavailable Unavailable KHAN, W JAYME PA Unavailable Unavailable KHAN, W JAYME PA Unavailable Unavailable KHAN, W JAYME PA Unavailable Unavailable KHAN, W JAYME PA Unavailable Unavailable KHAN, W JAYME PA Unavailable Unavailable KHAN, W JAYME PA Unavailable Unavailable KHAN, W JAYME PA Unavailable Unavailable KHAN, W JAYME PA Unavailable Unavailable KHAN, W JAYME PA Unavailable Unavailable KHAN, W JAYME PA Unavailable Unavailable KAHN, W JAYME PA Unavailable Unavailable KHAN, W JAYME PA Unavailable Unavailable KHAN, W JAYME PA Unavailable Unavailable KHAN, W JAYME PA Unavailable Unavailable KHAN, W JAYME PA Unavailable Unavailable KHAN, W JAYME PA Unavailable Unavailable KHAN, W JAYME PA Unavailable Unavailable KHAN, W JAYME PA Unavailable Unavailable KHAN, W JAYME PA Unavailable Unavailable KHAN, W JAYME PA Unavailable Unavailable KHAN, W JAYME PA Unavailable Unavailable KHAN, W JAYME PA Unavailable Unavailable KHAN, W JAYME PA Unavailable Unavailable KHAN, W JAYME PA Unavailable Unavailable KHAN, W JAYME PA Unavailable Unavailable KHAN, W JAYME PA Unavailable Unavailable KHAN, W JAYME PA Unavailable Unavailable KHAN, W JAYME PA Unavailable Unavailable KHAN, W JAYME PA Unavailable Unavailable KHAN, W JAYME PA Unavailable Unavailable KHAN, W JAYME PA Unavailable Unavailable KHAN, W JAYME PA Unavailable Unavailable KHAN, W JAYME PA Unavailable Unavailable KHAN, W JAYME PA Unavailable Unavailable KHAN, W JAYME PA Unavailable Unavailable KHAN, W JAYME PA Unavailable Unavailable KHAN, W JAYME PA Unavailable Unavailable KHAN, W JAYME PA Unavailable Unavailable KHAN, W JAYME PA Unavailable Unavailable KHAN, W JAYME PA Unavailable Unavailable KHAN, W JAYME PA Unavailable Unavailable KHAN, W JAYME PA Unavailable Unavailable Shaben, E Fariba CRUSHER FOREMAN Unavailable Unavailable Shaben, E Fariba CRUSHER FOREMAN Unavailable Unavailable Shaben, E Fariba CRUSHER FOREMAN Unavailable Unavailable Shaben, E Fariba CRUSHER FOREMAN Unavailable Unavailable Shaben, E Fariba CRUSHER FOREMAN Unavailable Unavailable Shaben, E Fariba CRUSHER FOREMAN Unavailable Unavailable Shaben, E Fariba CRUSHER FOREMAN Unavailable Unavailable Shaben, E Fariba CRUSHER FOREMAN Unavailable Unavailable Shaben, E Fariba CRUSHER FOREMAN Unavailable Unavailable Shaben, E Fariba CRUSHER FOREMAN Unavailable Unavailable Shaben, E Fariba CRUSHER FOREMAN Unavailable Unavailable Shaben, E Fariba CRUSHER FOREMAN Unavailable Unavailable Shaben, E Farbia CRUSHER FOREMAN Unavailable Unavailable Shaben, E Fariba CRUSHER FOREMAN Unavailable Unavailable Shaben, E Fariba CRUSHER FOREMAN Unavailable Unavailable Shaben, E Fariba CRUSHER FOREMAN Unavailable Unavailable Shaben, E Fariba CRUSHER FOREMAN Unavailable Unavailable Shaben, E Fariba CRUSHER FOREMAN Unavailable Unavailable Shaben, E Fariba CRUSHER FOREMAN Unavailable Unavailable Shaben, E Fariba CRUSHER FOREMAN Unavailable Unavailable Shaben, E Fariba CRUSHER FOREMAN Unavailable Unavailable Shaben, E Fariba CRUSHER FOREMAN Unavailable Unavailable Shaben, E Fariba CRUSHER FOREMAN Unavailable Unavailable Shaben, E Fariba CRUSHER FOREMAN Unavailable Unavailable Fern ARANA MD Unavailable Unavailable Fern ARANA MD Unavailable Unavailable Juan Carlos MACK MD Unavailable Unavailable Juan Carlos MACK MD Unavailable Unavailable Juan Carlos MACK MD Unavailable Unavailable Juan Carlos MACK MD Unavailable Unavailable Juan Carlos MACK MD Unavailable Unavailable Juan Carlos MACK MD Unavailable Unavailable Juan Carlos MACK MD Unavailable Unavailable Juan Carlos MACK MD Unavailable Unavailable Juan Carlos MACK MD Unavailable Unavailable Juan Carlos MACK MD Unavailable Unavailable Juan Carlos MACK MD Unavailable Unavailable Juan Carlos MACK MD Unavailable Unavailable Juan Carlos MACK MD Unavailable Unavailable Juan Carlos MACK MD Unavailable Unavailable Juan Carlos MACK MD Unavailable Unavailable GRANT, ELKE SUBSTITUTE TEACHER Unavailable Unavaila ble LETY-FRAUSTO, ELKE SUBSTITUTE TEACHER Unavailable Unavaila ble LETY-FRAUSTO, ELKE SUBSTITUTE TEACHER Unavailable Unavaila ble LETY-FRAUSTO, ELKE SUBSTITUTE TEACHER Unavailable Unavaila ble LETY-FRAUSTO, ELKE SUBSTITUTE TEACHER Unavailable Unavaila ble LETY-FRAUSTO, ELKE SUBSTITUTE TEACHER Unavailable Unavaila ble LETY-FRAUSTO, ELKE SUBSTITUTE TEACHER Unavailable Unavaila ble LETY-FRAUSTO, FARIBA ONEIL SUBSTITUTE TEACHER Unavailable Unavaila ble LETY-FRAUSTO, [employer] TEACHER Unavailable Unavaila ble LETY-FRAUSTO, [employer] TEACHER Unavailable Unavaila ble LETY-FRAUSTO, [employer] TEACHER Unavailable Unavaila ble LETY-FRAUSTO, [employer] SUB[employer] TEACHER Unavailable Unavaila ble LETY-FRAUSTO, [employer] SUB[employer] TEACHER Unavailable Unavaila ble LETY-FRAUSTO, [employer] SUB[employer] TEACHER Unavailable Unavaila ble LETY-FRAUSTO, FAR[employer]A [employer] SUBSTITUTE TEACHER Unavailable Unavaila ble LETY-FRAUSTO, FAR[employer] SUBSTITUTE TEACHER Unavailable Unavaila ble LETY-FRAUSTO, FAR[employer]A [employer]IL SUBSTITUTE TEACHER Unavailable Unavaila ble LETY-FRAUSTO, FAR[employer]A [employer] SUBSTITUTE TEACHER Unavailable Unavaila ble LETY-FRAUSTO, FAR[employer] SUBSTITUTE TEACHER Unavailable Unavaila ble LETY-FRAUSTO, FAR[employer]A [employer] SUBSTITUTE TEACHER Unavailable Unavaila ble LETY-FRAUSTO, FAR[employer]A [employer] SUBSTITUTE TEACHER Unavailable Unavaila ble LETY-FRAUSTO, FAR[employer]A [employer]IL SUBSTITUTE TEACHER Unavailable Unavaila ble LETY-FRAUSTO, FAR[employer] SUBSTITUTE TEACHER Unavailable Unavaila ble LETY-FRAUSTO, FAR[employer] SUBSTITUTE TEACHER Unavailable Unavaila ble LETY-FRAUSTO, [employer] SUBSTITUTE TEACHER Unavailable Unavaila ble LETY-FRAUSTO, FAR[employer] SUBSTITUTE TEACHER Unavailable Unavaila ble LETY-FRAUSTO, [employer] SUB[employer] TEACHER Unavailable Unavaila ble LETY-FRAUSTO, [employer] TEACHER Unavailable Unavaila ble LETY-FRAUSTO, [employer] TEACHER Unavailable Unavaila ble LETY-FRAUSTO, [employer] OEN[employer] SUBSTITUTE TEACHER Unavailable Unavaila ble LETY-FRAUSTO, [employer] TEACHER Unavailable Unavaila ble LETY-FRAUSTO, [employer] TEACHER Unavailable Unavaila ble LETY-FRAUSTO, [employer] TEACHER Unavailable Unavaila ble LETY-FRAUSTO, [employer] TEACHER Unavailable Unavaila ble LETY-FRAUTSO, [employer] TEACHER Unavailable Unavaila ble LETY-FRAUSTO, [employer] TEACHER Unavailable Unavaila ble LETY-FRAUSTO, [employer] TEACHER Unavailable Unavaila ble LETY-FRAUSTO, [employer] TEACHER Unavailable Unavaila ble LETY-FRAUSTO, [employer] TEACHER Unavailable Unavaila ble LETY-FRAUSTO, [employer] SUB[employer] TEACHER Unavailable Unavaila ble LETY-FRAUSTO, [place] SUBSTITUTE TEACHER Unavailable Unavaila ble LETY-FRAUSTO, [place] SUBSTITUTE TEACHER Unavailable Unavaila ble LETY-FRAUSTO, [place] SUBSTITUTE TEACHER Unavailable Unavaila ble LETY-FRAUSTO, [place] SUBSTITUTE TEACHER Unavailable Unavaila ble LETY-FRAUSTO, [place] SUBSTITUTE TEACHER Unavailable Unavaila ble LETY-FRAUSTO, [place] SUBSTITUTE TEACHER Unavailable Unavaila ble Panda Kim MD Unavailable Unavailable Ahmed, Panda Rowland MD Unavailable Unavailable Ahmed, Panda Rowland MD Unavailable Unavailable Ahmed, M Janett MD Unavailable Unavailable Ahmed, M Janett MD Unavailable Unavailable Ahmed, M Janett MD Unavailable Unavailable Ahmed, M Janett MD Unavailable Unavailable Ahmed, Panda Rowland MD Unavailable Unavailable Ahmed, Panda Rowland MD Unavailable Unavailable Ahmed, Panda Rowland MD Unavailable Unavailable Ahmed, Panda Rowland MD Unavailable Unavailable Ahmed, M Janett MD Unavailable Unavailable Ahmed, M Janett MD Unavailable Unavailable Ahmed, Panda Rowland MD Unavailable Unavailable Ahmed, Panda Rowland MD Unavailable Unavailable Ahmed, Panda Rowland MD Unavailable Unavailable Ahmed, Panda Rowland MD Unavailable Unavailable Ahmed, Panda Rowland MD Unavailable Unavailable Ahmed, Panda Rowland MD Unavailable Unavailable Ahmed, M Janett MD Unavailable Unavailable Ahmed, Panda Rowland MD Unavailable Unavailable Ahmed, Panda Rowland MD Unavailable Unavailable Ahmed, Panda Rowland MD Unavailable Unavailable Ahmed, Panda Rowland MD Unavailable Unavailable Ahmed, Panda Rowland MD Unavailable Unavailable Ahmed, Panda Rowland MD Unavailable Unavailable Ahmed, Panda Rowland MD Unavailable Unavailable Ahmed, Panda Rowland MD Unavailable Unavailable Ahmed, Panda Rowland MD Unavailable Unavailable Ahmed, Panda Rowland MD Unavailable Unavailable Ahmed, Panda Rowland MD Unavailable Unavailable Ahmed, Panda Rowland MD Unavailable Unavailable Ahmed, Panda Rowland MD Unavailable Unavailable Ahmed, M Janett MD Unavailable Unavailable Ahmed, Panda Rowland MD Unavailable Unavailable Ahmed, Panda Rowland MD Unavailable Unavailable Ahmed, Panda Rowland MD Unavailable Unavailable Ahmed, Panda Rowland MD Unavailable Unavailable Ahmed, Panda Rowland MD Unavailable Unavailable Ahmed, M Janett ROMO Unavailable Unavailable Ahmed, M Janett MD Unavailable Unavailable Ahmed, M Janett MD Unavailable Unavailable Ahmed, Panda Rowland MD Unavailable Unavailable Ahmed, Panda Rowland MD Unavailable Unavailable Ahmed, Panda Rowland MD Unavailable Unavailable Ahmed, M Mohamed MD Unavailable Unavailable Panda Kim MD Unavailable Unavailable Panda Kim MD Unavailable Unavailable Colon, Theodore Unavailable Unavailable Colon, Theodore Unavailable Unavailable Colon, Theodore Unavailable Unavailable Colon, Theodore Unavailable Unavailable Harjinder SUGGS MD Unavailable Unavailable Harjinder SUGGS MD Unavailable Unavailable Harjinder SUGGS MD Unavailable Unavailable Harjinder SUGGS MD Unavailable Unavailable Harjinder SUGGS MD Unavailable Unavailable Harjinder SUGGS MD Unavailable Unavailable Edy LUA MD Unavailable Unavailable Edy LUA MD Unavailable Unavailable Edy LUA MD Unavailable Unavailable Edy LUA MD Unavailable Unavailable Edy LUA MD Unavailable Unavailable Edy LUA MD Unavailable Unavailable Edy LUA MD Unavailable Unavailable Edy LUA MD Unavailable Unavailable Edy LUA MD Unavailable Unavailable Edy LUA MD Unavailable Unavailable Edy LUA MD Unavailable Unavailable Edy LUA MD Unavailable Unavailable Edy LUA MD Unavailable Unavailable Amara TRIANA MD Unavailable Unavailable Amara TRIANA MD Unavailable Unavailable Amara TRIANA MD Unavailable Unavailable Amara TRIANA MD Unavailable Unavailable Amara TRIANA MD Unavailable Unavailable Amara TRIANA MD Unavailable Unavailable Amara TRIANA MD Unavailable Unavailable Amara TRIANA MD Unavailable Unavailable Amara TRIANA MD Unavailable Unavailable Dator SR, Chrystal Ngo MD Unavailable Unavailable Dator SR, Chrystal Ngo MD Unavailable Unavailable Dator SR, Chrystal Ngo MD Unavailable Unavailable Dator SR, Chrystal Ngo MD Unavailable Unavailable Dator SR, Chrystal Ngo MD Unavailable Unavailable Dator SR, Chrystal Ngo MD Unavailable Unavailable Dator SR, Chrystal Ngo MD Unavailable Unavailable Dator SR, Chrystal Ngo MD Unavailable Unavailable Dator SR, Chrystal Ngo MD Unavailable Unavailable Dator SR, Chrystal Ngo MD Unavailable Unavailable Dator SR, Chrystal Ngo MD Unavailable Unavailable Dator SR, Chrystal Ngo MD Unavailable Unavailable Dator SR, Chrystal Ngo MD Unavailable Unavailable Dator SR, Chrystal Ngo MD Unavailable Unavailable Dator SR, Chrystal Ngo MD Unavailable Unavailable Dator SR, Chrystal Ngo MD Unavailable Unavailable Dator SR, Chrystal Ngo MD Unavailable Unavailable Dator SR, Chrystal Ngo MD Unavailable Unavailable Dator SR, Chrystal Ngo MD Unavailable Unavailable Dator SR, Chrystal Ngo MD Unavailable Unavailable Dator SR, Chrystal Ngo MD Unavailable Unavailable Dator SR, Chrystal Ngo MD Unavailable Unavailable Dator SR, Chrystal Ngo MD Unavailable Unavailable Dator SR, Chrystal Ngo MD Unavailable Unavailable Dator SR, Chrystal Ngo MD Unavailable Unavailable Dator SR, Chrystal Ngo MD Unavailable Unavailable Dator SR, Chrystal Ngo MD Unavailable Unavailable Dator SR, Chrystal Ngo MD Unavailable Unavailable Dator SR, Chrystal Ngo MD Unavailable Unavailable Dator SR, Chrystal Ngo MD Unavailable Unavailable Dator SR, Chrystal Ngo MD Unavailable Unavailable Dator SR, Chrystal Ngo MD Unavailable Unavailable Dator SR, Chrystal Ngo MD Unavailable Unavailable Dator SR, Chrystal Ngo MD Unavailable Unavailable Dator SR, Chrystal Ngo MD Unavailable Unavailable Dator SR, Chrystal Ngo MD Unavailable Unavailable Dator SR, Chrystal Ngo MD Unavailable Unavailable Dator SR, Chrystal Ngo MD Unavailable Unavailable Dator SR, Chrystal Ngo MD Unavailable Unavailable Dator SR, Chrystal Ngo MD Unavailable Unavailable Dator SR, Chrystal Ngo MD Unavailable Unavailable Dator SR, Chrystal Ngo MD Unavailable Unavailable Dator SR, Chrystal Ngo MD Unavailable Unavailable Dator SR, Chrystal Ngo MD Unavailable Unavailable Dator SR, Chrystal Ngo MD Unavailable Unavailable Dator SR, Chrystal Ngo MD Unavailable Unavailable Dator SR, Chrystal Ngo MD Unavailable Unavailable Dator SR, Chrystal Ngo MD Unavailable Unavailable Dator SR, Chrystal Ngo MD Unavailable Unavailable Dator SR, Chrystal Ngo MD Unavailable Unavailable Dator SR, Chrystal Ngo MD Unavailable Unavailable Dator SR, Chrystal Ngo MD Unavailable Unavailable Dator SR, Chrystal Ngo MD Unavailable Unavailable Dator SR, Chrystal Ngo MD Unavailable Unavailable ZAHIRA, L NICOLASA SUBSTITUTE TEACHER Unavailable Unavailable ZAHIRA, L NICOLASA SUBSTITUTE TEACHER Unavailable Unavailable ZAHIRA, L NICOLASA SUBSTITUTE TEACHER Unavailable Unavailable ZAHIRA, L NICOLASA SUBSTITUTE TEACHER Unavailable Unavailable ZAHIRA, L NICOLASA SUBSTITUTE TEACHER Unavailable Unavailable ZAHIRA, L NICOLASA SUBSTITUTE TEACHER Unavailable Unavailable ZAHIRA, L NICOLASA SUBSTITUTE TEACHER Unavailable Unavailable ZAHIRA, L NICOLASA SUBSTITUTE TEACHER Unavailable Unavailable ZAHIRA, L NICOLASA SUBSTITUTE TEACHER Unavailable Unavailable ZAHIRA, L NICOLASA SUBSTITUTE TEACHER Unavailable Unavailable ZAHIRA, L NICOLASA SUBSTITUTE TEACHER Unavailable Unavailable ZAHIRA, L NICOLASA SUBSTITUTE TEACHER Unavailable Unavailable ZAHIRA, L NICOLASA SUBSTITUTE TEACHER Unavailable Unavailable ZAHIRA, L NICOLASA SUBSTITUTE TEACHER Unavailable Unavailable ZAHIRA, L NICOLASA SUBSTITUTE TEACHER Unavailable Unavailable ZAHIRA, L NICOLASA SUBSTITUTE TEACHER Unavailable Unavailable ZAHIRA, L NICOLASA SUBSTITUTE TEACHER Unavailable Unavailable ZAHIRA, L NICOLASA SUBSTITUTE TEACHER Unavailable Unavailable ZAHIRA, L NICOLASA SUBSTITUTE TEACHER Unavailable Unavailable ZAHIRA, L NICOLASA SUBSTITUTE TEACHER Unavailable Unavailable ZAHIRA, L NICOLASA SUBSTITUTE TEACHER Unavailable Unavailable ZAHIRA, L NICOLASA SUBSTITUTE TEACHER Unavailable Unavailable ZAHIRA, L NICOLASA SUBSTITUTE TEACHER Unavailable Unavailable ZAHIRA, L NICOLASA SUBSTITUTE TEACHER Unavailable Unavailable ZAHIRA, L NICOLASA SUBSTITUTE TEACHER Unavailable Unavailable ZAHIRA, L NICOLASA SUBSTITUTE TEACHER Unavailable Unavailable ZAHIRA, L NICOLASA SUBSTITUTE TEACHER Unavailable Unavailable ZAHIRA, L NICOLASA SUBSTITUTE TEACHER Unavailable Unavailable ZAHIRA, L NICOLASA SUBSTITUTE TEACHER Unavailable Unavailable ZAHIRA, L NICOLASA SUBSTITUTE TEACHER Unavailable Unavailable ZAHIRA, L NICOLASA SUBSTITUTE TEACHER Unavailable Unavailable ZAHIRA, L NICOLASA SUBSTITUTE TEACHER Unavailable Unavailable ZAHIRA, L NICOL[employer]A SUBSTITUTE TEACHER Unavailable Unavailable ZAHIRA, L NIC[employer] SUBSTITUTE TEACHER Unavailable Unavailable ZAHIRA, L NIC[employer] SUBSTITUTE TEACHER Unavailable Unavailable Fern MEJIA MD Unavailable Fern MEJIA MD Unavailable Fern MEJIA MD Unavailable Fern MEJIA MD Unavailable Fern MEJIA MD Unavailable Flor ., Johana DO Unavailable Unavailable Flor ., Johana DO Unavailable Unavailable KETTY MONTE MD Unavailable Unavailable KETTY MONTE MD Unavailable Unavailable KETTY MONTE MD Unavailable Unavailable KETTY MONTE MD Unavailable Unavailable Amara PATTERSON MD Unavailable Unavailable Amara PATTERSON MD Unavailable Unavailable Amara PATTERSON MD Unavailable Unavailable Amara PATTERSON MD Unavailable Unavailable Amara PATTERSON MD Unavailable Unavailable Amara PATTERSON MD Unavailable Unavailable Amara PATTERSON MD Unavailable Unavailable Panda VICENTE MD Unavailable Unavailable Panda VICENTE MD Unavailable Unavailable CREAMER, Panda RIVAS MD Unavailable Unavailable CREAMER, Panda RIVAS MD Unavailable Unavailable CREAMER, Panda RIVAS MD Unavailable Unavailable CREAMER, Panda RIVAS MD Unavailable Unavailable CREAMER, M ROB ROMO Unavailable Unavailable CREAMER, M ROB ROMO Unavailable Unavailable CREAMER, Panda RIVAS MD Unavailable Unavailable CREAMER, Panda RIVAS MD Unavailable Unavailable CREAMER, M ROB ROMO Unavailable Unavailable CREAMER, M ROB ROMO Unavailable Unavailable CREAMER, Panda RIVAS MD Unavailable Unavailable CREAMER, M ROB ROMO Unavailable Unavailable CREAMER, M ROB ROMO Unavailable Unavailable CREAMER, M ROB ROMO Unavailable Unavailable CREAMER, M ROB ROMO Unavailable Unavailable CREAMER, M ROB ROMO Unavailable Unavailable CREAMER, M ROB ROMO Unavailable Unavailable CREAMER, M ROB ROMO Unavailable Unavailable CREAMER, M ROB ROMO Unavailable Unavailable CREAMER, M ROB ROMO Unavailable Unavailable CREAMER, M ROB ROMO Unavailable Unavailable CREAMER, M ROB ROMO Unavailable Unavailable CREAMER, Panda RIVAS MD Unavailable Unavailable CREAMER, Panda RIVAS MD Unavailable Unavailable CREAMER, Panda RIVAS MD Unavailable Unavailable CREAMER, Panda RIVAS MD Unavailable Unavailable CREAMER, Panda RIVAS MD Unavailable Unavailable PANDA, MINDI Unavailable Unavailable Juan Carlos Issa MD Unavailable Unavailable Juan Carlos Issa MD Unavailable Unavailable Juan Carlos Issa MD Unavailable Unavailable Juan Carlos Issa MD Unavailable Unavailable Juan Carlos Issa MD Unavailable Unavailable Juan Carlos Issa MD Unavailable Unavailable Juan Carlos Issa MD Unavailable Unavailable Juan Carlos Issa MD Unavailable Unavailable Juan Carlos Issa MD Unavailable Unavailable Juan Carlos Issa MD Unavailable Unavailable Juan Carlos Issa MD Unavailable Unavailable Juan Carlos Issa MD Unavailable Unavailable Juan Carlos Issa MD Unavailable Unavailable Juan Carlos Issa MD Unavailable Unavailable Juan Carlos Issa MD Unavailable Unavailable Juan Carlos Issa MD Unavailable Unavailable Juan Carlos Issa MD Unavailable Unavailable Alexsandra, Bro SUBSTITUTE TEACHER Unavailable Alexsandra, Bro SUBSTITUTE TEACHER Unavailable Alexsandra, Bro SUBSTITUTE TEACHER Unavailable Balog, Dolores Unavailable Unavailable Balog, Dolores Unavailable Unavailable Balog, Dolores Unavailable Unavailable Balog, Dolores Unavailable Unavailable Balog, Dolores Unavailable Unavailable Mckenzie, I Anay SUBSTITUTE TEACHER Unavailable Unavailable Mckenzie, I Anay SUBSTITUTE TEACHER Unavailable Unavailable Mckenzie, I Anay SUBSTITUTE TEACHER Unavailable Unavailable Mckenzie, I Anay SUBSTITUTE TEACHER Unavailable Unavailable Mckenzie, I Anay SUBSTITUTE TEACHER Unavailable Unavailable Mckenzie, I Anay SUBSTITUTE TEACHER Unavailable Unavailable Mckenzie, I Anay SUBSTITUTE TEACHER Unavailable Unavailable Mckenzie, I Anay SUBSTITUTE TEACHER Unavailable Unavailable Mckenzie, I Anay SUBSTITUTE TEACHER Unavailable Unavailable Mckenzie, I Anay SUBSTITUTE TEACHER Unavailable Unavailable Mckenzie, I Anay SUBSTITUTE TEACHER Unavailable Unavailable Mckenzie, I Anay SUBSTITUTE TEACHER Unavailable Unavailable Mckenzie, I Anay SUBSTITUTE TEACHER Unavailable Unavailable Mckenzie, I Anay SUBSTITUTE TEACHER Unavailable Unavailable Mckenzie, I Anay SUBSTITUTE TEACHER Unavailable Unavailable Mckenzie, I Anay SUBSTITUTE TEACHER Unavailable Unavailable Mckenzie, I Anay SUBSTITUTE TEACHER Unavailable Unavailable Mckenzie, I Anay SUBSTITUTE TEACHER Unavailable Unavailable Mckenzie, I Anay SUBSTITUTE TEACHER Unavailable Unavailable Mckenzie, I Anay SUBSTITUTE TEACHER Unavailable Unavailable Mckenzie, I Anay SUBSTITUTE TEACHER Unavailable Unavailable Mckenzie, I Anay SUBSTITUTE TEACHER Unavailable Unavailable Mckenzie, I Anay SUBSTITUTE TEACHER Unavailable Unavailable Mckenzie, I Anay SUBSTITUTE TEACHER Unavailable Unavailable Mckenzie, I Anay SUBSTITUTE TEACHER Unavailable Unavailable Mckenzie, I Anay SUBSTITUTE TEACHER Unavailable Unavailable Mckenzie, I Anay SUBSTITUTE TEACHER Unavailable Unavailable Mckenzie, I Anay SUBSTITUTE TEACHER Unavailable Unavailable Mckenzie, I Anay SUBSTITUTE TEACHER Unavailable Unavailable Mckenzie, I Anay SUBSTITUTE TEACHER Unavailable Unavailable Mckenzie, I Anay SUBSTITUTE TEACHER Unavailable Unavailable Mckenzie, I Anay SUBSTITUTE TEACHER Unavailable Unavailable Mckenzie, I Anay SUBSTITUTE TEACHER Unavailable Unavailable Mckenzie, I Anay SUBSTITUTE TEACHER Unavailable Unavailable Mckenzie, I Anay SUBSTITUTE TEACHER Unavailable Unavailable Mckenzie, I Anay SUBSTITUTE TEACHER Unavailable Unavailable Mckenzie, I Anay SUBSTITUTE TEACHER Unavailable Unavailable Mckenzie, I Anay SUBSTITUTE TEACHER Unavailable Unavailable Mckenzie, I Anay SUBSTITUTE TEACHER Unavailable Unavailable Mckenzie, I Anay SUBSTITUTE TEACHER Unavailable Unavailable Mckenzie, I Anay SUBSTITUTE TEACHER Unavailable Unavailable Mckenzie, I Anay SUBSTITUTE TEACHER Unavailable Unavailable Mckenzie, I Anay SUBSTITUTE TEACHER Unavailable Unavailable Mckenzie, I Anay SUBSTITUTE TEACHER Unavailable Unavailable Mckenzie, I Anay SUBSTITUTE TEACHER Unavailable Unavailable Mckenzie, I Anay SUBSTITUTE TEACHER Unavailable Unavailable Mckenzie, I Anay SUBSTITUTE TEACHER Unavailable Unavailable Mckenzie, I Anay SUBSTITUTE TEACHER Unavailable Unavailable Mckenzie, I Anay SUBSTITUTE TEACHER Unavailable Unavailable Mckenzie, I Anay SUBSTITUTE TEACHER Unavailable Unavailable Mckenzie, I Anay SUBSTITUTE TEACHER Unavailable Unavailable Mckenzie, I Anay SUBSTITUTE TEACHER Unavailable Unavailable Mckenzie, I Anay SUBSTITUTE TEACHER Unavailable Unavailable Mckenzie, I Anay SUBSTITUTE TEACHER Unavailable Unavailable Mckenzie, I Anay SUBSTITUTE TEACHER Unavailable Unavailable Mckenzie, I Anay SUBSTITUTE TEACHER Unavailable Unavailable Mckenzie, I Anay SUBSTITUTE TEACHER Unavailable Unavailable Mckenzie, I Anay SUBSTITUTE TEACHER Unavailable Unavailable Mckenzie, I Anay SUBSTITUTE TEACHER Unavailable Unavailable Mckenzie, I Anay SUBSTITUTE TEACHER Unavailable Unavailable Mckenzie, I Anay SUBSTITUTE TEACHER Unavailable Unavailable Mckenzie, I Anay SUBSTITUTE TEACHER Unavailable Unavailable Mckenzie, I Anay SUBSTITUTE TEACHER Unavailable Unavailable Mckenzie, I Anay SUBSTITUTE TEACHER Unavailable Unavailable Mckenzie, I Anay SUBSTITUTE TEACHER Unavailable Unavailable Virgen, C Monika Unavailable Unavailable Virgen, C Monika Unavailable Unavailable Virgen, C Monika Unavailable Unavailable Virgen, C Monika Unavailable Unavailable Virgen, C Monika Unavailable Unavailable Virgen, C Monika Unavailable Unavailable Virgen, C Monika Unavailable Unavailable Virgen, C Monika Unavailable Unavailable Virgen, C Monika Unavailable Unavailable Virgen, C Monika Unavailable Unavailable Virgen, C Monika Unavailable Unavailable Virgen, C Monika Unavailable Unavailable Virgen, C Monika Unavailable Unavailable Virgen, C Monika Unavailable Unavailable Virgen, C Monika Unavailable Unavailable Virgen, C Monika Unavailable Unavailable Virgen, C Monika Unavailable Unavailable Virgen, C Monika Unavailable Unavailable Virgen, C Monika Unavailable Unavailable Virgen, C Monika Unavailable Unavailable Virgen, C Monika Unavailable Unavailable Virgen, C Monika Unavailable Unavailable Semaj HIGHTOWER Unavailable Unavailable Megna, L Fabian PA-C Unavailable Unavailable Megna, L Fabian PA-C Unavailable Unavailable Megna, L Fabian PA-C Unavailable Unavailable Megna, L Fabian PA-C Unavailable Unavailable Megna, L Fabian PA-C Unavailable Unavailable Megna, L Fabian PA-C Unavailable Unavailable Megna, L Fabian PA-C Unavailable Unavailable Megna, L Fabian PA-C Unavailable Unavailable Megna, L Fabian PA-C Unavailable Unavailable Megna, L Fabian PA-C Unavailable Unavailable Megna, L Fabian PA-C Unavailable Unavailable PIPMARCIE HAMPTON MD Unavailable Unavailable PIPASMARCIE MD Unavailable Unavailable PIPASMARCIE MD Unavailable Unavailable PIPASMARCIE MD Unavailable Unavailable PIPASMARCIE MD Unavailable Unavailable OUEIDA, ZAHER Unavailable Unavailable OUEIDA, ZAHER Unavailable Unavailable OUEIDA, ZAHER Unavailable Unavailable OUEIDA, ZAHER Unavailable Unavailable OUEIDA, ZAHER Unavailable Unavailable Sekou WILLOUGHBY MD Unavailable Unavailable Sekou WILLOUGHBY MD Unavailable Unavailable Sekou WILLOUGHBY MD Unavailable Unavailable Klawitter, Fern Boland MD Unavailable Unavailable Klawitter, Fern Boland MD Unavailable Unavailable Klawitter, Fern Boland MD Unavailable Unavailable Klawitter, Fern Boland MD Unavailable Unavailable Klawitter, Fern Boland MD Unavailable Unavailable Klawitter, Fern Boland MD Unavailable Unavailable Klawitter, Fern Boland MD Unavailable Unavailable Klawitter, Fern Boland MD Unavailable Unavailable Klawitter, Fern Boland MD Unavailable Unavailable Klawitter, Fern Boland MD Unavailable Unavailable Klawitter, Fern Boland MD Unavailable Unavailable Klawitter, Fern Boland MD Unavailable Unavailable Klawitter, Fern Boland MD Unavailable Unavailable Klawitter, Fern Boland MD Unavailable Unavailable Klawitter, Fern Boland MD Unavailable Unavailable Klawitter, Fern Boland MD Unavailable Unavailable Klawitter, Fern Boland MD Unavailable Unavailable PADDY ., CHRISSY . Unavailable Unavailable PADDY ., CHRISSY . Unavailable Unavailable PADDY ., CHRISSY . Unavailable Unavailable Oliva, Mikel Unavailable Unavailable Oliva, Mikel Unavailable Unavailable Oliva, Mikel Unavailable Unavailable Oliva, Mikel Unavailable Unavailable Oliva, Mikel Unavailable Unavailable Ute RDH, A Dorese Unavailable CAMPOLI, A HARRIETT DO Unavailable Unavailable CAMPOLI, A HARRIETT DO Unavailable Unavailable CAMPOLI, A HARRIETT DO Unavailable Unavailable CAMPOLI, A HARRIETT DO Unavailable Unavailable CAMPOLI, A HARRIETT DO Unavailable Unavailable CAMPOLI, A HARRIETT DO Unavailable Unavailable Paramjit, P Cristóbal DO Unavailable Unavailable Paramjit, P Cristóbal DO Unavailable Unavailable Paramjit, P Cristóbal DO Unavailable Unavailable Paramjit, P Cristóbal DO Unavailable Unavailable Paramjit, P Cristóbal DO Unavailable Unavailable Paramjit, P Cristóbal DO Unavailable Unavailable Paramjit, P Rcistóbal DO Unavailable Unavailable Paramjit, P Cristóbal DO Unavailable Unavailable Paramjit, P Cristóbal DO Unavailable Unavailable Paramjit, P Cristóbal DO Unavailable Unavailable Paramjit, P Cristóbal DO Unavailable Unavailable Paramjit, P Cristóbal DO Unavailable Unavailable Paramjit, P Cristóbal DO Unavailable Unavailable Paramjit, P Cristóbal DO Unavailable Unavailable Paramjit, P Cristóbal DO Unavailable Unavailable Paramjit, P Cristóbal DO Unavailable Unavailable Paramjit, P Cristóbal DO Unavailable Unavailable Paramjit, P Cristóbal DO Unavailable Unavailable Paramjit, P Cristóbal DO Unavailable Unavailable Paramjit, P Cristóbal DO Unavailable Unavailable Paramjit, P Cristóbal DO Unavailable Unavailable Paramjit, P Cristóbal DO Unavailable Unavailable Paramjit, P Cristóbal DO Unavailable Unavailable Paramjit, P Cristóbal DO Unavailable Unavailable Paramjit, P Cristóbal DO Unavailable Unavailable Paramjit, P Cristóbal DO Unavailable Unavailable Paramjit, P Cristóbal DO Unavailable Unavailable Paramjit, P Cristóbal DO Unavailable Unavailable Paramjit, P Cristóbal DO Unavailable Unavailable Paramjit, P Cristóbal DO Unavailable Unavailable Paramjit, P Cristóbal DO Unavailable Unavailable Paramjit, P Cristóbal DO Unavailable Unavailable Paramjit, P Cristóbal DO Unavailable Unavailable Paramjit, P Cristóbal DO Unavailable Unavailable Paramjit, P Cristóbal DO Unavailable Unavailable Paramjit, P Cristóbal DO Unavailable Unavailable Paramjit, P Cristóbal DO Unavailable Unavailable Paramjit, P Cristóbal DO Unavailable Unavailable Paramjit, P Cristóbal DO Unavailable Unavailable Paramjit, P Cristóbal DO Unavailable Unavailable Paramjit, P Cristóbal DO Unavailable Unavailable Paramjit, P Cristóbal DO Unavailable Unavailable Paramjit, P Cristóbal DO Unavailable Unavailable Paramjit, P Cristóbal DO Unavailable Unavailable Paramjit, P Cristóbal DO Unavailable Unavailable Paramjit, P Cristóbal DO Unavailable Unavailable Paramjit, P Cristóbal DO Unavailable Unavailable Paramjit, P Cristóbal DO Unavailable Unavailable Paramjit, P Cristóbal DO Unavailable Unavailable Paramjit, P Cristóbal DO Unavailable Unavailable Paramjit, P Cristóbal DO Unavailable Unavailable Paramjit, P Cristóbal DO Unavailable Unavailable Paramjit, P Cristóbal DO Unavailable Unavailable Paramjit, P Cristóbal DO Unavailable Unavailable Paramjit, P Cristóbal DO Unavailable Unavailable Paramjit, P Cristóbal DO Unavailable Unavailable Paramjit, P Cristóbal DO Unavailable Unavailable Paramjit, P Cristóbal DO Unavailable Unavailable Paramjit, P Cristóbal DO Unavailable Unavailable Paramjit, P Cristóbal DO Unavailable Unavailable Paramjit, P Cristóbal DO Unavailable Unavailable Paramjit, P Cristóbal DO Unavailable Unavailable Paramjit, P Cristóbal DO Unavailable Unavailable Paramjit, P Cristóbal DO Unavailable Unavailable Paramjit, P Cristóbal DO Unavailable Unavailable Paramjit, P Cristóbal DO Unavailable Unavailable Paramjit, P Cristóbal DO Unavailable Unavailable Paramjit, P Cristóbal DO Unavailable Unavailable Paramjit, P Cristóbal DO Unavailable Unavailable Paramjit, P Cristóbal DO Unavailable Unavailable Paramjit, P Cristóbal DO Unavailable Unavailable Paramjit, P Cristóbal DO Unavailable Unavailable Paramjit, P Cristóbal DO Unavailable Unavailable Yony Vaughan MD Unavailable Unavailable CarguelloAmara Harriet DO Unavailable Unavailable CarguelloAmara Harriet DO Unavailable Unavailable Carguello J Harriet DO Unavailable Unavailable Carguello J Harriet DO Unavailable Unavailable Carguello J Harriet DO Unavailable Unavailable Carguello J Harriet DO Unavailable Unavailable Carguello J Harriet DO Unavailable Unavailable Carguello J Harriet DO Unavailable Unavailable Carguello J Harriet DO Unavailable Unavailable Carguello J Harriet DO Unavailable Unavailable Carguello J Harriet DO Unavailable Unavailable Carguello J Harriet DO Unavailable Unavailable Carguello J Harriet DO Unavailable Unavailable Carguello J Harriet DO Unavailable Unavailable Carguello J Harriet DO Unavailable Unavailable Carguello J Harriet DO Unavailable Unavailable Carguello J Harriet DO Unavailable Unavailable Carguello J Harriet DO Unavailable Unavailable Carguello J Harriet DO Unavailable Unavailable CarguelloAmara Harriet DO Unavailable Unavailable CarguelloAmara Harriet DO Unavailable Unavailable Carguello J Harriet DO Unavailable Unavailable CarguelloAmara Harriet DO Unavailable Unavailable Carguello J Harriet DO Unavailable Unavailable CarguelloAmara Harriet DO Unavailable Unavailable Carguello J Harriet DO Unavailable Unavailable CarguelloAmara Harriet DO Unavailable Unavailable Carguello J Harriet DO Unavailable Unavailable Carguello J Harriet DO Unavailable Unavailable Carguello J Harriet DO Unavailable Unavailable CarguelloAmara Harriet DO Unavailable Unavailable CarguelloAmara Harriet DO Unavailable Unavailable CarguelloAmara Harriet DO Unavailable Unavailable Carguello J Harriet DO Unavailable Unavailable Carguello J Harriet DO Unavailable Unavailable Carguello J Harriet DO Unavailable Unavailable Carguello J Harriet DO Unavailable Unavailable CarguelloAmara Harriet DO Unavailable Unavailable CarguelloAmara Harriet DO Unavailable Unavailable CarguelloAmara Harriet DO Unavailable Unavailable Carguello J Harriet DO Unavailable Unavailable Carguello J Harriet DO Unavailable Unavailable CarguelloAmara Harriet DO Unavailable Unavailable CarguelloAmara Harriet DO Unavailable Unavailable CarguelloAmara Harriet DO Unavailable Unavailable CarguelloAmara Harriet DO Unavailable Unavailable Carguello, J Harriet DO Unavailable Unavailable Carguello, J Harriet DO Unavailable Unavailable Carguello, J Harriet DO Unavailable Unavailable Carguello, J Harriet DO Unavailable Unavailable Carguello, J Harriet DO Unavailable Unavailable Carguello, J Harriet DO Unavailable Unavailable Carguello, J Harriet DO Unavailable Unavailable Carguello, J Harriet DO Unavailable Unavailable Carguello, J Harriet DO Unavailable Unavailable Carguello, J Harriet DO Unavailable Unavailable Carguello, J Harriet DO Unavailable Unavailable Carguello, J Harriet DO Unavailable Unavailable Carguello, J Harriet DO Unavailable Unavailable Carguello, J Harriet DO Unavailable Unavailable Carguello, J Harriet DO Unavailable Unavailable Carguello, J Harriet DO Unavailable Unavailable Carguello, J Harriet DO Unavailable Unavailable Carguello, J Harriet DO Unavailable Unavailable Carguello, J Harriet DO Unavailable Unavailable Carguello, J Harriet DO Unavailable Unavailable Carguello, J Harriet DO Unavailable Unavailable Carguello, J Harriet DO Unavailable Unavailable Carguello, J Harriet DO Unavailable Unavailable Carguello, J Harriet DO Unavailable Unavailable Carguello, J Harriet DO Unavailable Unavailable Carguello, J Harriet DO Unavailable Unavailable Carguello, J Harriet DO Unavailable Unavailable Carguello, J Harriet DO Unavailable Unavailable Carguello, J Harriet DO Unavailable Unavailable Carguello, J Harriet DO Unavailable Unavailable Carguello, J Harriet DO Unavailable Unavailable Carguello, J Harriet DO Unavailable Unavailable Carguello, J Harriet DO Unavailable Unavailable Carguello, J Harriet DO Unavailable Unavailable Carguello, J Harriet DO Unavailable Unavailable Carguello, J Harriet DO Unavailable Unavailable Carguello, J Harriet DO Unavailable Unavailable Re-disclosure Warning The records that you are about to access may contain information from federally-assisted alcohol or drug abuse programs. If such information is present, then the following federally mandated warning applies: This information has been disclosed to you from records protected by federal confidentiality rules (42 CFR part 2). The federal rules prohibit you from making any further disclosure of this information unless further disclosure is expressly permitted by the written consent of the person to whom it pertains or as otherwise permitted by 42 CFR part 2. A general authorization for the release of medical or other information is NOT sufficient for this purpose. The Federal rules restrict any use of the information to criminally investigate or prosecute any alcohol or drug abuse patient.The records that you are about to access may contain highly sensitive health information, the redisclosure of which is protected by Article 27-F of the [facility] Public Health law. If you continue you may have access to information: Regarding HIV / AIDS; Provided by facilities licensed or operated by the [facility] Office of Mental Health; or Provided by the [facility] Office for People With Developmental Disabilities. If such information is present, then the following [facility] mandated warning applies: This information has been disclosed to you from confidential records which are protected by state law. State law prohibits you from making any further disclosure of this information without the specific written consent of the person to whom it pertains, or as otherwise permitted by law. Any unauthorized further disclosure in violation of state law may result in a fine or snf sentence or both. A general authorization for the release of medical or other information is NOT sufficient authorization for further disc losure. 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 -NO Ebola Screening Performed completed Ebol a Screening Performed [facility] ([facility]) Note: Within the last month, have you tr aveled outside of the [place]? -NO Ebola Screening Performed completed Ebol a Screening Performed [facility] ([facility]) Note: Within the last month, have you tr aveled outside of the [place]? -NO Ebola Screening Performed completed Ebol a Screening Performed [facility] ([facility]) Note: Within the last month, have you tr aveled outside of the [place]? -NO Allergies and Adverse Reactions Type Description Substance Reaction Status Data Source(s ) Drug allergy Penicillins Penicillin [facility] NO KNOWN ALLERGIES NO KNOWN ALLERGIES [facility] Drug Class PENICILLINS Penicillin Other Hives [facility] Family History Family Member Name Family Member Gender Family Member Status Date o f Status Description Data Source(s) Unknown Condition [facility] Unknown Condition [facility] Unknown Condition [facility] Unknown Condition [facility] Unknown Condition [facility] Unknown Condition [facility] Unknown Condition [facility] Unknown Condition [facility] Unknown Condition [facility] Unknown Condition [facility] Unknown Condition [facility] Encounters Encounter Providers Location Date Indications Data Source(s ) Outpatient Attender: NICOLASA PABLO NP 07/18/2020 1 1:00:00 PM EST 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 Outpatient<td ID="encounterTypeDescripti onID1">Acute L1</td><td>Nicolasa Pablo NP</td><td>[facility]</td><td>07/18/2020</td><td>1:52PM</td><td>2:40PM</td><td><content ID="encounterDiagnosisID1-0">Pharyngitis Acute</content></td> Attender: NICOLASA PABLO NP [facility] 07/18/2020 01:52:00 PM EST - 07/18/2020 02:40:05 PM EST Pharyngitis AcutePharyngitis Acute [facility] ([facility]) Pharyngitis Acute Pharyngitis Acute Outpatient<td ID="encounterTypeDescripti onID0">Acute Follow-up Telehealth</td><td>Fariba Santana NP</td><td>[facility]</td><td>07/20/2020</td><td>07/18/2020 10:10AM</td><td>1:01PM</td><td> <content ID="encounterDiagnosisID0-0">Pharyngitis</content></td> Attender: Fariba TOMPKINS [facility] 07/18/2020 10:10:00 AM EST - 07/20/2020 01:01:11 PM EST PharyngitisPharyngitis [facility] ([facility]) Pharyngitis Pharyngitis Emergency Attender: Janett Kim MD 07/04 07:22:00 PM EST - 07/04/2020 08:42:00 PM EST Syncope [facility] Syncope Patient discharged. Outpatient<td ID="encounterTypeDescripti onID2">Acute L1</td><td>Aura JOVELP</td><td>[facility]</td><td>06/26/2020</td><td>1:39PM</td><td>2:19PM</td><td><content ID="encounterDiagnosisID2-0">Vaginitis</content>, <content ID="encounterDiagnosisID2-1">Viral Syndrome</content></td> Attender: Aura Roa [facility] 06/26/2020 01:39:00 PM EST - 06/26/2020 02:19:47 PM EST Viral SyndromeVaginitisViral SyndromeVaginitis [place] ([facility]) Viral Syndrome Vaginitis Viral Syndrome Vaginitis Outpatient Attender: Aura TOMPKINS 06/26/2020 12:00: 00 AM EST 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 Emergency Attender: Janett Kim MD 06/15 09:02:00 PM EST - 06/15/2020 09:29:00 PM EST Does Not Feel Good [facility] Does Not Feel Good Patient discharged. Emergency Attender: Candice Arrieta MD 03:10:00 PM EST - 05/26/2020 05:50:00 PM EST [facility] discharged. 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</td><td></td><td>05/24/2020</td><td>05/22/2020 9:22AM</td><td>05/22/2020 11:59PM</td><td></td> Attender: Fariba TOMPKINS 05/22/2020 09:22:00 AM EST - 05/22/2020 11:59:00 PM EST [facility] Out[facility] Attender: Fariba TOMPKINS 05/22/2020 12:00:00 A M EST [facility], [facility]1983 Outpatient<td ID="encounterTypeDescripti onID5">Acute L2</td><td>Fariba Santana NP</td><td>[facility]</td><td>05/18/2020</td><td>8:27AM</td><td>9:02AM</td><td><content ID="encounterDiagnosisID5-0">Pediculosis</content></td> Attender: Fariba TOMPKINS [facility] 05/18/2020 08:27:00 AM EST - 05/18/2020 09:02:10 AM EST PediculosisPediculosisPediculosisPediculosis [facility] ([facility] Pediculosis Pediculosis Pediculosis Pediculosis Emergency Attender: MIKEL MEJIA MD 07A-ERMMTA 05/17 12:00:00 AM EST - 05/18/2020 02:11:00 AM EST Shortness of breath [facility] Shortness of breath Patient discharged. Outpatient<td ID="encounterTypeDescripti onID6">Medication Order</td><td>Fariba Santana NP</td><td></td><td>05/14/2020</td><td>05/01/2020 7:41AM</td><td>05/01/2020 11:59PM</td><td></td> Attender: Fariba Taverajacqueline TOMPKINS 05/14/2020 07:41:00 AM EST - 05/01/2020 11:59:00 PM EST [facility] ([facility]) Emergency Attender: Fabian Bowen MD 2019 07:54:00 AM EST - 05/09/2020 08:31:00 AM EST Lower Back Pain [facility] Lower Back Pain Patient discharged. Emergency Attender: FABIAN GOMEZ II 07A-ERMMAIRAULT 05/09 12:00:00 AM EST - 05/09/2020 03:54:00 PM EST Periumbilical pain [facility] Periumbilical pain Patient discharged. Emergency Attender: NIKI LUA MD 07A-ERMADULT 1 07/08/2019 08:25:00 PM EST - 05/09/2020 02:17:00 AM EST Other injury of unspecified body region, initial encounter [facility] Other injury of unspecified body region, initial encounter Patient discharged. Emergency Attender: Fabian Bowen MD 2019 03:05:00 PM EST - 05/04/2020 03:45:00 PM EST [facility] Weakness Patient discharged. Outpatient Attender: Trang Enamorado NP 05/01/2020 11:00:00 PM EST [facility] Outpatient<td ID="encounterTypeDescripti onID7">AHR</td><td>Trang Enamorado [facility]</td><td>[facility]</td><td>05/01/2020</td><td>12:09PM</td><td>1:24PM</td><td><content ID="encounterDiagnosisID7-0">Routine History and Physical</content>, <content ID="encounterDiagnosisID7-1">Depression</content>, <content ID="encounterDiagnosisID7-2">Lung Neoplasm Uncertain Behavior</content></td> Attender: Trang Enamorado NP [facility] 05/01/2020 12:09:00 PM EST - 05/01/2020 01:24:34 PM EST Routine History and PhysicalRoutine Hist ory and PhysicalRoutine History and PhysicalRoutine History and PhysicalRoutine History and PhysicalDepressionDepressionDepressionDepressionDepressionLung Neoplasm Uncertain BehaviorLung Neoplasm Uncertain BehaviorLung Neoplasm Uncertain BehaviorLung Neoplasm Uncertain BehaviorLung Neoplasm Uncertain Behavior [facility]) Routine History and Physical Routine History and Physical Routine History and Physical Routine History and Physical Routine History and Physical Depression Depression Depression Depression Depression 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 Emergency Attender: Candice Arrieta MD 02:12:00 PM EST - 04/22/2020 03:04:00 PM EST [facility] Back [facility] discharged. Emergency Attender: PHOEBE ROJAS III 07-ADULTERM 08/2019 06:21:00 PM EST - 04/17/2020 09:17:00 PM EST Shortness of breath [facility] Shortness of breath Patient discharged. Emergency Attender: Candice Arrieta MD 02:38:00 PM EST - 04/17/2020 03:37:00 PM EST [facility] Anxiety Patient discharged. Emergency Attender: MAR SÁNCHEZ MD 07-ADULTERM 04/14 02:58:00 PM EDT - 04/14/2020 10:06:00 PM EDT Anxiety disorder, unspecified [facility] Anxiety disorder, unspecified Patient discharged. Outpatient Attender: Fariba Max TOMPKINS 04/12/2020 02:3 0:00 PM EDT llq pain r10.9 divertic [facility] llq pain r10.9 divertic Outpatient<td ID="encounterTypeDescripti onID9">Acute L1</td><td>Stefani Max COULTER</td><td>[facility]</td><td>04/10/2020</td><td>5:09PM</td><td>5:44PM</td><td><content ID="encounterDiagnosisID9-0">Abdominal Pain</content>, <content ID="encounterDiagnosisID9-1">Difficulty Breathing (Dyspnea)</content></td> Attender: Fariba TOMPKINS [facility] 04/10/2020 05:09:00 PM EDT - 04/10/2020 05:44:35 PM EDT Abdominal PainAbdominal PainAbdominal Pa inAbdominal PainAbdominal PainDifficulty Breathing (Dyspnea)Difficulty Breathing (Dyspnea)Difficulty Breathing (dyspnea)Difficulty Breathing (dyspnea)Difficulty Breathing (dyspnea) [facility] ([facility]) Abdominal Pain Abdominal Pain Abdominal Pain Abdominal Pain Abdominal Pain Difficulty Breathing (Dyspnea) Difficulty Breathing (Dyspnea) Difficulty Breathing (dyspnea) Difficulty Breathing (dyspnea) Difficulty Breathing (dyspnea) Emergency Attender: Candice Arrieta MD 12:23:00 PM EDT - 04/07/2020 01:28:00 PM EDT Physical Exam [facility] Physical Exam Patient discharged. Emergency 04/06/2020 06:42:00 PM EDT - 04/06/2020 09:19:00 PM EDT Feet hurt from walking, right knee injury [facility] Feet hurt from walking, right knee injur y Patient discharged. Outpatient Attender: Demetrice Llanos [facility] 04/06/2020 0 6:00:00 PM EDT Post Discharge/DC from [facility] Post Discharge[facility] from [facility] Emergency Attender: Candice Arrieta MD 10/23/2 020 04:03:00 PM EDT - 04/06/2020 04:35:00 PM EDT Lt Knee Pain [facility] Knee Pain Patient discharged. Inpatient Attender: DEFAULT / GENE WILLIAM / UNKNOWN PROVIDER ALIASES Attender: Fabian MORENOCAttender: JOSE MEJIA MDAttender: NIKI LUA MDAttender: TAURUS SHETH MDAttender: JOSE MACK MDAttender: KENNEDY COSTA MDAttender: YANNI PATTERSON MDAdmitter: Fabian MORENO CReferrer: Dolores Bruner 07A-04B 03/31/2020 12:00:00 AM EDT - 04/04/2020 10:30:00 AM EDT Suicidal ideations [facility] Suicidal ideations Patient discharged. Emergency Attender: Sanam TorresReferrer: Sanam brand CP-ADULTERM 03/29/2020 06:42:00 PM EDT - 03/29/2020 08:42:00 PM EDT Chest pain, unspecified [facility] Chest pain, unspecified Patient discharged. Emergency 03/28/2020 08:45:00 PM EDT - 020 03:45:00 AM EDT Anxiety [facility] Anxiety Patient discharged. Emergency Attender: MARCIE ADRIAN MD 07-ADULTERM 2019 12:00:00 AM EDT - 03/23/2020 12:00:00 AM EDT Acute pharyngitis, unspecified [facility] Acute pharyngitis, unspecified Patient discharged. Emergency Attender: Sammy Issa MD A-ERMADULT 0 07:35:00 PM EDT - 03/21/2020 11:52:00 PM EDT Chest pain, unspecified [facility] Chest pain, unspecified Patient discharged. Outpatient<td ID="encounterTypeDescripti onID10">Acute L3</td><td>Harriet Marie DO</td><td>[facility]</td><td>03/12/2020</td><td>7:50AM</td><td>9:10AM</td><td><content ID="hhpfcrveoFinsisrrbTC16-3">Depression</content>, <content ID="ozntnstclZsvyikrcoJL13-1">Generalized Anxiety Disorder</content>, <content ID="aalnrsphoGnqeagycjMG74-0">Obesity Morbid</content></td> Attender: Harriet Curtischarlettejulieta VENTURA [facility] 03/12/2020 07:50:00 AM EDT - 03/12/2020 09:10:00 AM EDT DepressionDepressionDepressionDepressionDepressionDepressionDepressionGeneralize d Anxiety DisorderGeneralized Anxiety DisorderGeneralized Anxiety DisorderGeneralized Anxiety DisorderGeneralized Anxiety DisorderGeneralized Anxiety DisorderGeneralized Anxiety DisorderObesity MorbidObesity MorbidObesity MorbidObesity MorbidObesity MorbidObesity MorbidObesity Morbid [facility] ([facility]) Depression Depression Depression Depression Depression Depression Depression Generalized Anxiety Disorder Generalized Anxiety Disorder Generalized Anxiety Disorder Generalized Anxiety Disorder Generalized Anxiety Disorder Generalized Anxiety Disorder Generalized Anxiety Disorder Obesity Morbid Obesity Morbid Obesity Morbid Obesity Morbid Obesity Morbid Obesity Morbid Obesity Morbid Emergency Attender: Fabian Bowen MD 2019 04:27:00 PM EDT - 03/05/2020 05:27:00 PM EDT Chest Pain [facility] Chest Pain Patient discharged. Outpatient<td ID="encounterTypeDescripti onID11">Emergency</td><td>Fariba Frausto NP</td><td>[facility]</td><td>03/05/2020</td><td>12:25PM</td><td>1:26PM</td><td><content ID="ixxwbipuvSduqddidlIU80-0">Assessment of Dizziness</content>, <content ID="klqixhvjdBlmbhmduqGD75-4">Cerumen Impaction</content></td> Attender: FARIBA BURNS NP [facility] 03/05/2020 12:25:00 PM EDT - 03/05/2020 01:26:52 PM EDT Cerumen ImpactionCerumen ImpactionCerume n ImpactionCerumen ImpactionCerumen ImpactionCerumen ImpactionCerumen ImpactionCerumen ImpactionAssessment of DizzinessAssessment of DizzinessAssessment of Diz zinessAssessment of DizzinessAssessment of DizzinessAssessment of DizzinessAssessment of DizzinessAssessment of Dizziness [facility] Cerumen Impaction Cerumen Impaction Cerumen Impaction Cerumen Impaction Cerumen Impaction Cerumen Impaction Cerumen Impaction Cerumen Impaction Assessment of Dizziness Assessment of Dizziness Assessment of Dizziness Assessment of Dizziness Assessment of Dizziness Assessment of Dizziness Assessment of Dizziness Assessment of Dizziness Outpatient Attender: Isidro Cote [facility] 03/02/2020 01:30 :00 PM EDT POSTDC [facility] POSTDC Unknown<td ID="encounterTypeDescriptionI D0">H Adult Prophy</td><td>Manju Unger RD</td><td>[facility]</td><td>03/02/2020</td><td></td> Attender: Manju Unger [facility] 03/02/2020 12:50:00 PM EDT - 03/02/2020 11:59:00 PM EDT [facility] Unknown<td ID="encounterTypeDescriptionI D12">Emergency</td><td>Harriet Marie DO</td><td></td><td>03/02/2020</td><td>02/21/2020 12:00PM</td><td>02/21/2020 11:59PM</td><td></td> Attender: Harriet Marei DO 03/02/2020 12:00:00 PM EDT - 02/21/2020 11:59:00 PM EDT [facility] Outpatient Attender: Theodore Conte 02/29/2020 01:36:00 PM EDT Increased Depression [facility] Increased Depression Emergency Attender: Janett Kim MD 02/27 08:34:00 PM EDT - 02/29/2020 01:51:00 PM EDT Increased Depression [facility] Increased Depression Patient discharged. Emergency Attender: Janett Kim MD 02/27 07:19:00 PM EDT - 02/28/2020 07:54:00 PM EDT Chest Pain [facility] Chest Pain Patient discharged. 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 Outpatient Attender: Mitzy Freedmanmitter: Theodore ColonConsultant: Theodore Colon 02/22/2020 05:00:00 PM EDT Suicidal Ideations wi th plan [facility] Suicidal Ideations with plan Outpatient Attender: Monika Yuanitter: Theodore ColonConsul tant: Theodore Colon 02/22/2020 05:00:00 PM EDT Suicidal Ideations with plan [facility] Suicidal Ideations with plan Outpatient Attender: Monika Yuanitter: Theodore ColonConsul tant: Theodore Colon 02/22/2020 05:00:00 PM EDT Suicidal Ideations with plan [facility] Suicidal Ideations with plan Outpatient Attender: Mitzy Emmanuel PAdmitter: Theodore ColonConsultant: Theodore Colon 02/22/2020 05:00:00 PM EDT Suicidal Ideations wi th plan [facility] Suicidal Ideations with plan Outpatient Attender: Mitzy Emmanuel PAdmitter: Theodore ColonConsultant: Theodore Colon 02/22/2020 05:00:00 PM EDT [facility] Outpatient Attender: Bro Upton NPAdmitter: Theodore ColonConsultant: Theodore Colon 02/22/2020 05:00:00 PM EDT Suicidal Ideations with plan [facility] Suicidal Ideations with plan Outpatient<td ID="encounterTypeDescripti onID14">Emergency</td><td>Patricia Mclain NP</td><td>[facility]</td><td>02/21/2020</td><td>4:02PM</td><td>4:49PM</td><td><content ID="yzyzxgmpeItzkioydjCU98-7">Suicide Risk</content>, <content ID="mrrctgrwqOxrmarlzrGF10-2">Chest Pain</content>, <content ID="hilgssbqcWmmomklxeNA37-7">Intellectual Disabilities</content>, <content ID="smbkvdkstAugkapguaHW83-5">Assessment of Dizziness</content>, <content ID="cbaaeervgSqbrrgybaVN84-5">Assessment of Difficulty Breathing (Dyspnea)</cont ent></td> Attender: Patricia Mclain NP [facility] 02/21/2020 04:0 2:00 PM EDT - 02/21/2020 04:49:15 PM EDT Assessment of Difficulty Breathing (Dysp hilary)Chest PainSuicide RiskAssessment of Difficulty Breathing (Dyspnea)Chest PainSuicide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 BehaviorLung Neoplasm Uncertain BehaviorLung Neoplasm Uncertain BehaviorLung Neoplasm Uncertain BehaviorLung Neoplasm Uncertain BehaviorLung Neoplasm Uncertain BehaviorLung Neoplasm Uncertain BehaviorLung Neoplasm Uncertain BehaviorLung Neoplasm Uncertain BehaviorLung Neoplasm Uncertain Behavior [facility] ([facility]) Lactose Intolerance Depression Lactose Intolerance Depression Lactose Intolerance Depression Lactose Intolerance Depression Lactose Intolerance Depression Lactose Intolerance Depression Lactose Intolerance Depression Lactose Intolerance Depression Lactose Intolerance Depression Lactose Intolerance Depression Lactose Intolerance Depression Lactose Intolerance Depression Lactose Intolerance Depression Lactose Intolerance Depression Lactose Intolerance Depression Lactose Intolerance Depression Lactose Intolerance Depression Dizziness Dizziness Dizziness Dizziness Dizziness Dizziness Dizziness Dizziness Dizziness Dizziness Dizziness Dizziness Dizziness Dizziness Dizziness Dizziness Dizziness 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 Unknown<td ID="encounterTypeDescriptionI D25">Correspondence</td><td>Harriet Marie DO</td><td></td><td>09/05/2019</td><td>08/18/2019 9:02AM</td><td>08/23/2019 11:59PM</td><td></td> Attender: Harriet Marie DO 09/05/2019 09:02:00 AM EDT - 08/23/2019 11:59:00 PM EDT [facility] ([facility]) Unknown<td ID="encounterTypeDescriptionI D26">Chart Prep</td><td>Harriet Marie DO</td><td></td><td>09/02/2019</td><td>08/18/2019 4:05PM</td><td>08/23/2019 11:59PM</td><td></td> Attender: Harriet Marie DO 09/02/2019 04:05:00 PM EDT - 08/23/2019 11:59:00 PM EDT [facility] ([facility]) Unknown<td ID="encounterTypeDescriptionI D27">Correspondence</td><td>Radha PEARSONP/OIL TRANSPORT DRIVER</td><td>[facility]</td><td>08/24/2019</td><td>08/18/2019 10:18AM</td><td>08/23/2019 11:59PM</td><td></td> Attender: Radha GUNN/DOAura [facility] 08/24/2019 10:18:00 AM EDT - 08/23/2019 11:59:00 PM EDT [facility]) Outpatient Attender: Harriet Marie DO 08/23/2019 11:00:00 PM EDT 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 Outpatient<td ID="encounterTypeDescripti onID28">Medication Follow- up</td><td>Harriet Marie DO</td><td>[facility]</td><td>08/23/2019</td><td>08/18/2019 11:20AM</td><td>1:14PM</td><td> <content ID="tuoxhslzdVdrglsyixHK93-3">Dizziness</content>, <content ID="cfybvskreCspokarfaON75-9">Depression</content>, <content ID="zfmshsrrdPlntvypunRS07-0">Lactose Intolerance</content>, <content ID="oahausezsAzpugkmssEN16-6">Lung Neoplasm Uncertain Behavior</content></td> Attender: Harriet Marie DO [facility] 08/23/2019 11:20:00 AM EDT - 08/23/2019 01:14:32 PM EDT Lactose IntoleranceDepressionLactose IntoleranceDepressionLactose IntoleranceDepressionLactose IntoleranceDepressionLactose IntoleranceDepressionLactose IntoleranceDepressionLactose IntoleranceDepressionLactose IntoleranceDepression Lactose IntoleranceDepressionLactose IntoleranceDepressionLactose IntoleranceDepressionLactose IntoleranceDepressionLactose IntoleranceDepressionLactose IntoleranceDepressionLactose IntoleranceDepress ionLactose IntoleranceDepressionLactose IntoleranceDepressionLactose IntoleranceDepressionDizzinessDizzinessDizzinessDizzinessDizzinessDizzinessDizzi nessDizzinessDizzinessDizzinessDizzinessDizzinessDizzinessDizzinessDizzinessDizz inessDizzinessDizzinessLung Neoplasm Uncertain BehaviorLung Neoplasm Uncertain BehaviorLung Neoplasm Uncertain BehaviorLung Neoplasm Uncertain BehaviorLung Neoplasm Uncertain BehaviorLung Neoplasm Uncertain BehaviorLung Neoplasm Uncertain BehaviorLung Neoplasm Uncertain BehaviorLung Neoplasm Uncertain BehaviorLung Neoplasm Uncertain BehaviorLung Neoplasm Uncertain BehaviorLung Neoplasm Uncertain BehaviorLung Neoplasm Uncertain BehaviorLung Neoplasm Uncertain BehaviorLung Neoplasm Uncertain BehaviorLung Neoplasm Uncertain BehaviorLung Neoplasm Uncertain BehaviorLung Neoplasm Uncertain Behavior [facility] ([facility]) Lactose Intolerance Depression Lactose Intolerance Depression Lactose Intolerance Depression Lactose Intolerance Depression Lactose Intolerance Depression Lactose Intolerance Depression Lactose Intolerance Depression Lactose Intolerance Depression Lactose Intolerance Depression Lactose Intolerance Depression Lactose Intolerance Depression Lactose Intolerance Depression Lactose Intolerance Depression Lactose Intolerance Depression Lactose Intolerance Depression Lactose Intolerance Depression Lactose Intolerance Depression Lactose Intolerance Depression Dizziness Dizziness Dizziness Dizziness Dizziness Dizziness Dizziness Dizziness Dizziness Dizziness Dizziness Dizziness Dizziness Dizziness Dizziness Dizziness Dizziness Dizziness 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 Disregard status an d admitted date. Outpatient<td ID="encounterTypeDescripti onID29">Hospital Follow-up</td><td>Trang Enamorado CRUSHER FOREMAN</td><td>[facility]</td><td>08/18/2019</td><td>7:40AM</td><td>9:35AM</td><td><content ID="bxaqxzzbzGoohooxgdZV71-5">Abdominal Pain</content>, <content ID="rtxaugsygPlmqnqqeiXM24-5">Dizziness</content>, <content ID="wieyrsecaIxkhcuxtpYK80-4">Pharyngitis</content></td> Attender: Trang Enamorado NP [facility] 08/18/2019 07:40:00 AM EST - 08/18/2019 09:35:58 AM EST PharyngitisAbdominal PainPharyngitisAbdo gian PainPharyngitisAbdominal PainPharyngitisAbdominal PainPharyngitisAbdominal PainPharyngitisAbdominal PainPharyngitisAbdominal PainPharyngitisAbdominal PainPharyngitisAbdominal PainPharyngitisAbdominal PainPharyngitisAbdominal PainPharyngitisAbdominal PainPharyngitisAbdominal PainPharyngitisAbdominal PainPharyngitisAbdominal PainPharyngitisAbdominal PainPharyngitisAbdominal PainPharyngitisAbdominal PainPharyngitisAbdominal Pain DizzinessDizzinessDizzinessDizzinessDizzinessDizzinessDizzinessDizzinessDizzines sDizzinessDizzinessDizzinessDizzinessDizzinessDizzinessDizzinessDizzinessDizzine ssDizziness [facility] ([facility]) Pharyngitis Abdominal Pain Pharyngitis Abdominal Pain Pharyngitis Abdominal Pain Pharyngitis Abdominal Pain Pharyngitis Abdominal Pain Pharyngitis Abdominal Pain Pharyngitis Abdominal Pain Pharyngitis Abdominal Pain Pharyngitis Abdominal Pain Pharyngitis Abdominal Pain Pharyngitis Abdominal Pain Pharyngitis Abdominal Pain Pharyngitis Abdominal Pain Pharyngitis Abdominal Pain Pharyngitis Abdominal Pain Pharyngitis Abdominal Pain Pharyngitis Abdominal Pain Pharyngitis Abdominal Pain Pharyngitis Abdominal Pain Dizziness Dizziness Dizziness Dizziness Dizziness Dizziness Dizziness Dizziness Dizziness Dizziness Dizziness Dizziness Dizziness Dizziness Dizziness Dizziness Dizziness Dizziness Dizziness Unknown<td ID="encounterTypeDescriptionI D30">Correspondence</td><td>Harriet Marie DO</td><td></td><td>08/16/2019</td><td>06/27/2019 4:55PM</td><td>06/27/2019 11:59PM</td><td></td> Attender: Harriet Marie DO 08/16/2019 04:55:00 PM EST - 06/27/2019 11:59:00 PM EST [facility]) Emergency Attender: Krystian BelcherA-ADULTERM 08/2019 12:00:00 AM EST - 08/16/2019 10:28:00 AM EST Nausea [facility] Nausea Patient discharged. Emergency Attender: DEFAULT / GENE WILLIAM / UNKNOWN PROVIDER ALIASES Referrer: JUAN HALL NP CP-ADULTERM 08/15/2019 11:13:33 PM ES T - 08/16/2019 04:08:00 AM EST Generalized abdominal pain [facility] Generalized abdominal pain Patient discharged. Emergency 08/15/2019 02:30:00 PM EST - 020 05:26:00 PM EST Other [facility] Other Patient discharged. Emergency Attender: Cristóbal Yusuf DO 2019 10:35:00 AM EST - 08/15/2019 01:28:00 PM EST [facility] / Dizzy, Nausea [facility] / Dizzy, Nausea Patient discharged. 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 Outpatient<td ID="encounterTypeDescripti onID28">Walk-In</td><td>Anay Rincon NP</td><td>[facility]</td><td>06/27/2019</td><td><content ID="[id number]">Sinusitis</content>, <content ID="[id number]">Urinary Tract Infection</content></td> Attender: Anay Rincon NP [facility] 06/27/2019 09:24:00 AM EST - 06/27/2019 10:37:19 AM EST Urinary Tract InfectionSinusitisUrinary Tract InfectionSinusitisUrinary Tract InfectionSinusitisUrinary Tract InfectionSinusitisUrinary Tract InfectionSinusitisUrinary Tract InfectionSinusitisUrinary Tract InfectionSinusitisUrinary Tract InfectionSinusitisUrinary Tract InfectionSinusitisUrinary Tract InfectionSinusitisUrinary Tract InfectionSinusitisUrinary Tract InfectionSinusitisUrinary Tract InfectionSinusitisUrinary Tract InfectionSinusitisUrinary Tract InfectionSinusitisUrinary Tract InfectionSinusitisUrinary Tract InfectionSinusitisUrinary Tract InfectionSinusitis [facility] ([facility]) Urinary Tract Infection Sinusitis Urinary Tract Infection Sinusitis Urinary Tract Infection Sinusitis Urinary Tract Infection Sinusitis Urinary Tract Infection Sinusitis Urinary Tract Infection Sinusitis Urinary Tract Infection Sinusitis Urinary Tract Infection Sinusitis Urinary Tract Infection Sinusitis Urinary Tract Infection Sinusitis Urinary Tract Infection Sinusitis Urinary Tract Infection Sinusitis Urinary Tract Infection Sinusitis Urinary Tract Infection Sinusitis Urinary Tract Infection Sinusitis Urinary Tract Infection Sinusitis Urinary Tract Infection Sinusitis Urinary Tract Infection Sinusitis Outpatient<td ID="encounterTypeDescripti onID29">Hospital Follow- up</td><td>Harriet Marie DO</td><td>[facility]</td><td>06/23/2019</td><td><content ID="[id number]"> Urinary Tract Infection</content>, <content ID="sfdinoerdKlodoqcnoLS17- 1">Ovarian Cyst Left</content>, <content ID="ockshaszfCbilnfohvGE00-4">Abdominal Pain--epigastric</content>, <content ID="yrthkfnfiAyhvancebAO98-0">Elevated Liver Enzymes</content></td> Attender: Harriet Marie DO [facility] 06/23/2019 09:32:00 AM EST - 06/23/2019 10:23:03 AM EST Abdominal Pain--epigastricOvarian Cyst LeftUrinary Tract InfectionAbdominal Pain--epigastricOvarian Cyst LeftUrinary Tract InfectionAbdominal Pain--epigastricOvarian Cyst LeftUrinary Tract InfectionAbdominal Pain--epigastricOvarian Cyst LeftUrinary Tract InfectionAbdominal Pain--epigastricOvarian Cyst LeftUrinary Tract InfectionAbdominal Pain--epigastricOvarian Cyst LeftUrinary Tract InfectionAbdominal Pain--epigastricOvarian Cyst LeftUrinary Tract InfectionAbdominal Pain--epigastricOvarian Cyst LeftUrinary Tract InfectionAbdominal Pain--epigastricOvarian Cyst LeftUrinary Tract InfectionAbdominal Pain--epigastricOvarian Cyst LeftUrinary Tract InfectionAbdominal Pain--epigastricOvarian Cyst LeftUrinary Tract InfectionAbdominal Pain--epigastricOvarian Cyst LeftUrinary Tract InfectionAbdominal Pain--epigastricOvarian Cyst LeftUrinary Tract InfectionAbdominal Pain--epigastricOvarian Cyst LeftUrinary Tract InfectionAbdominal Pain--epigastricOvarian Cyst LeftUrinary Tract InfectionAbdominal Pain--epigastricOvarian Cyst LeftUrinary Tract InfectionAbdominal Pain--epigastricOvarian Cyst LeftUrinary Tract InfectionAbdominal Pain--epigastricOvarian Cyst LeftUrinary Tract InfectionAbdominal Pain--epigastricOvarian Cyst LeftUrinary Tract InfectionElevated Liver EnzymesElevated Liver EnzymesElevated Liver EnzymesElevated Liver EnzymesElevated Liver EnzymesElevated Liver EnzymesElevated Liver Enzymes Elevated Liver EnzymesElevated Liver EnzymesElevated Liver EnzymesElevated Liver EnzymesElevated Liver EnzymesElevated Liver EnzymesElevated Liver EnzymesElevated Liver EnzymesElevated Liver EnzymesElevated Liver EnzymesElevated Liver EnzymesElevated Liver Enzymes [facility] ([facility]) Abdominal Pain--epigastric Ovarian Cyst Left Urinary Tract Infection Abdominal Pain--epigastric Ovarian Cyst Left Urinary Tract Infection Abdominal Pain--epigastric Ovarian Cyst Left Urinary Tract Infection Abdominal Pain--epigastric Ovarian Cyst Left Urinary Tract Infection Abdominal Pain--epigastric Ovarian Cyst Left Urinary Tract Infection Abdominal Pain--epigastric Ovarian Cyst Left Urinary Tract Infection Abdominal Pain--epigastric Ovarian Cyst Left Urinary Tract Infection Abdominal Pain--epigastric Ovarian Cyst Left Urinary Tract Infection Abdominal Pain--epigastric Ovarian Cyst Left Urinary Tract Infection Abdominal Pain--epigastric Ovarian Cyst Left Urinary Tract Infection Abdominal Pain--epigastric Ovarian Cyst Left Urinary Tract Infection Abdominal Pain--epigastric Ovarian Cyst Left Urinary Tract Infection Abdominal Pain--epigastric Ovarian Cyst Left Urinary Tract Infection Abdominal Pain--epigastric Ovarian Cyst Left Urinary Tract Infection Abdominal Pain--epigastric Ovarian Cyst Left Urinary Tract Infection Abdominal Pain--epigastric Ovarian Cyst Left Urinary Tract Infection Abdominal Pain--epigastric Ovarian Cyst Left Urinary Tract Infection Abdominal Pain--epigastric Ovarian Cyst Left Urinary Tract Infection Abdominal Pain--epigastric Ovarian Cyst Left Urinary Tract Infection Elevated Liver Enzymes Elevated Liver Enzymes Elevated Liver Enzymes Elevated Liver Enzymes Elevated Liver Enzymes Elevated Liver Enzymes Elevated Liver Enzymes Elevated Liver Enzymes Elevated Liver Enzymes Elevated Liver Enzymes Elevated Liver Enzymes Elevated Liver Enzymes Elevated Liver Enzymes Elevated Liver Enzymes Elevated Liver Enzymes Elevated Liver Enzymes Elevated Liver Enzymes Elevated Liver Enzymes Elevated Liver Enzymes OutpatientOFFICE/OUTPATIENT VISIT, EST 06/10/2019 Attender: JAYME SHANE 06/10/2019 03:37:51 PM EST 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[facility]) Outpatient<td ID="encounterTypeDescripti onID30">Walk-In</td><td>Patricia Mclain NP</td><td>[facility]</td><td>06/02/2019</td><td><content ID="[id number]">Abdominal Pain</content>, <content ID="uzyleyptyNtepakotoBA75-5">Nausea</content>, <content ID="uxzgozmulMiycfutjwFD67-1">Chest Pain</content>, <content ID="aslchdxuyKvuxhrblrKK73-4">Assessment of Dizziness</content></td> Attender: Patricia Mclain NP [facility] 06/02/2019 09:03:00 AM EST - 06/02/2019 11:18:27 AM EST Assessment of DizzinessChest PainNauseaA bdominal PainAssessment of DizzinessChest PainNauseaAbdominal PainAssessment of DizzinessChest PainNauseaAbdominal PainAssessment of DizzinessChest PainNauseaAbdominal PainAssessment of DizzinessChest PainNauseaAbdominal PainAssessment of DizzinessChest PainNauseaAbdominal PainAssessment of DizzinessChest PainNauseaAbdominal PainAssessment of DizzinessChest PainNauseaAbdominal PainAssessment of DizzinessChest PainNauseaAbdominal PainAssessment of DizzinessChest PainNauseaAbdominal PainAssessment of DizzinessChest PainNauseaAbdominal PainAssessment of DizzinessChest PainNauseaAbdominal PainAssessment of DizzinessChest PainNauseaAbdominal PainAssessment of DizzinessChest PainNauseaAbdominal PainAssessment of DizzinessChest PainNauseaAbdominal PainAssessment of DizzinessChest PainNauseaAbdominal PainAssessment of DizzinessChest PainNauseaAbdominal PainAssessment of Dizzine ssChest PainNauseaAbdominal PainAssessment of DizzinessChest PainNauseaAbdominal PainAssessment of DizzinessChest PainNauseaAbdominal Pain [facility] Assessment of Dizziness Chest Pain Nausea Abdominal Pain Assessment of Dizziness Chest Pain Nausea Abdominal Pain Assessment of Dizziness Chest Pain Nausea Abdominal Pain Assessment of Dizziness Chest Pain Nausea Abdominal Pain Assessment of Dizziness Chest Pain Nausea Abdominal Pain Assessment of Dizziness Chest Pain Nausea Abdominal Pain Assessment of Dizziness Chest Pain Nausea Abdominal Pain Assessment of Dizziness Chest Pain Nausea Abdominal Pain Assessment of Dizziness Chest Pain Nausea Abdominal Pain Assessment of Dizziness Chest Pain Nausea Abdominal Pain Assessment of Dizziness Chest Pain Nausea Abdominal Pain Assessment of Dizziness Chest Pain Nausea Abdominal Pain Assessment of Dizziness Chest Pain Nausea Abdominal Pain Assessment of Dizziness Chest Pain Nausea Abdominal Pain Assessment of Dizziness Chest Pain Nausea Abdominal Pain Assessment of Dizziness Chest Pain Nausea Abdominal Pain Assessment of Dizziness Chest Pain Nausea Abdominal Pain Assessment of Dizziness Chest Pain Nausea Abdominal Pain Assessment of Dizziness Chest Pain Nausea Abdominal Pain Assessment of Dizziness Chest Pain Nausea Abdominal Pain Unknown<td ID="encounterTypeDescriptionI D31">[Patient Encounter]</td><td>Jere Simpson DDS</td><td>[facility]</td><td>05/27/2019</td><td></td> Attender: Jere Simpson DDS [facility] 05/27/2019 12:00:00 AM EST - 05/27/2019 11:59:00 PM EST [facility] ([facility]) Emergency Attender: Mikel Baptiste 9 11:21:00 AM EST - 05/09/2019 03:32:00 PM EST Abd Pain [facility] Pain Patient discharged. Immunizations Vaccine Date Status Description Data Source(s) Note that this vaccine name has changed. See also Td (adult). It is not adsorbed. 05/01/2020 01:08:00 PM EST completed Td 2 05/01/2020 Complete (Refused - Patient objection) [facility] ( [facility]) IIV3. This is one of two codes replacing CVX 15, which is being retired. 03/12/2020 09:13:00 AM EDT completed Influenza, seasonal, injectable 3 03/12/2020 Right Arm Complete (Administered) [facility] ([facility]) Medications Medication Brand Name Start Date Product Form Dose Route Admi nistrative Instructions Pharmacy Instructions Status Indications Reaction Description Data Source(s) 12 HR Guaifenesin 600 MG Extended Releas e Oral Tablet guaiFENesin ER 600 MG Oral Tablet Extended Release 12 Hour guaiFENesin ER 600 MG Oral Tablet Extend ed Release 12 Hour 07/20/2020 12:00:00 AM EST ac tive 12 HR guaifenesin 600 MG Extended Release Oral Tablet [facility]) Flonase Allergy Relief 50 MCG/ACT Nasal Suspension Satish nase Allergy Relief 50 MCG/ACT Nasal Suspension 06/26/2020 12:00:00 AM EST active fluticasone propionate 0.05 MG/ACTUAT Metered Dose Nasal [place] [Flonase] [facility]) Hydroxyzine Hydrochloride 50 MG Oral Tablet hydrOXYzin e HCl 50 MG Oral Tablet hydrOXYzine HCl 50 MG Oral Tablet 06/21/2020 12:00:00 AM EST active hydroxyzine hydrochloride 50 MG Oral Tablet [facility] ( [facility]) Hydroxyzine Hydrochloride 50 MG Oral Tablet hydrOXYzin e HCl 50 MG Oral Tablet hydrOXYzine HCl 50 MG Oral Tablet 06/20/2020 12:00:00 AM EST aborted hydroxyzine hydrochloride 50 MG Oral Tab let [facility]) Fluconazole 150 MG Oral Tablet Fluconazole 150 MG Oral Table t 05/24/2020 12:00:00 AM EST aborted flucona zole 150 MG Oral Tablet [facility]) Metronidazole 500 MG Oral Tablet metroNIDAZOLE 500 MG Oral Tablet metroNIDAZOLE 500 MG Oral Tablet 05/24/2020 12:00:00 AM EST 1 aborted metronidazole 500 MG Oral Tablet [facility] (Formerly [facility]) Acetaminophen 325 MG Oral Tablet acetaminophen (TYLENO L) tablet 650 mg acetaminophen (TYLENOL) tablet 650 mg 05/18/2020 12:45:00 AM EST 65 0 mg Oral completed 650 mg, Oral, O nce, Thu05/18/20 at 0045, For 1 dose
Maximum daily dose of acetaminophen from all sources 75 mg/kg/day.
[facility] Medication administered onsite RID Complete Lice Elimination Combination Kit RID Comp lete Lice Elimination Combination Kit 05/18/2020 12:00:00 AM EST ab orted RID Complete Lice Elimination [facility] (Formerly [facility]) Clotrimazole 20 MG/ML Vaginal Cream Clotrimazole 3 2% Vaginal Cream Clotrimazole 3 2% Vaginal Cream 05/14/2020 12:00:00 AM EST aborted clotrimazole 20 MG/ML Vaginal Cream [place] ([facility]ly [facility]) 1 ML Ketorolac Tromethamine 30 MG/ML [place] ketorolac (TORADOL) 30 MG/ML injection 30 mg ketorolac (TORADOL) 30 MG/ML injection 30 mg 0 02:00:00 PM EST 30 mg Intramuscular completed 30 mg, Intramuscular, Once, Thu05/09/20 at 1400, For 1 dose [facility] Medication administered onsite Acetaminophen 325 MG Oral Tablet acetaminophen (TYLENO L) tablet 975 mg acetaminophen (TYLENOL) tablet 975 mg 05/09/2020 01:00:00 PM EST 97 5 mg Oral completed 975 mg, Oral, O nce, Thu05/09/20 at 1300, For 1 dose
Maximum daily dose of acetaminophen is 3,000 mg from all sources in 24 hours.
[facility] Medication administered onsite Acetaminophen 325 MG Oral Tablet acetaminophen (TYLENO L) tablet 650 mg acetaminophen (TYLENOL) tablet 650 mg 05/09/2020 01:45:00 AM EST 65 0 mg Oral completed 650 mg, Oral, O nce, Thu05/09/20 at 0145, For 1 dose
Maximum daily dose of acetaminophen from all sources 75 mg/kg/day
[facility] Medication administered onsite pantoprazole 40 MG Delayed Release Oral Tablet Pantoprazole Sodium 40 MG Oral Tablet Delayed Release Pantoprazole Sodium 40 MG Oral Tablet Delayed Release 05/01/2020 12:00:00 AM EST active pantoprazole 40 MG Delayed Release Oral Tablet [facility] ([facility]ly [facility]) quetiapine 50 MG Oral Tablet QUEtiapine Fumarate 50 MG Oral Tablet QUEtiapine Fumarate 50 MG Oral Tablet 05/01/2020 12:00:00 AM EST 1 active quetiapine 50 MG Oral Tablet [place] [facility] ([facility]) pantoprazole 40 MG Delayed Release Oral Tablet Pantoprazole Sodium 40 MG Oral Tablet Delayed Release Pantoprazole Sodium 40 MG Oral Tablet Delayed Release 05/01/2020 12:00:00 AM EST aborted pantoprazole 40 MG Delayed Release Oral Tablet [place] [facility] ([facility]) Hydroxyzine Hydrochloride 50 MG Oral Tablet hydrOXYzin e (ATARAX) tablet 25 mg hydrOXYzine (ATARAX) tablet 25 mg 04/14/2020 09:15:00 PM EDT 25 mg Oral completed 25 mg, Oral, Once, 04/14/20 at 2115, For 1 dose [facility] Medication administered onsite 200 ACTUAT Albuterol 0.09 MG/ACTUAT [place] red Dose Inhaler [Ventolin] Ventolin HFA 108 (90 Base) MCG/ACT Inhalation Aerosol Solution Ventolin HFA 108 (90 Base) MCG/ACT Inhalation Aerosol Solution 04/10/2020 12:00:00 AM EDT active [id number] 200 ACTUAT albuter ol 0.09 MG/ACTUAT Metered Dose Inhaler [Ventolin] [place] [facility] ([facility]) AeroChamber Plus Miscellaneous AeroChamber Plus Miscellaneou s 04/10/2020 12:00:00 AM EDT active AeroCham zacarias Plus [place] [facility] ([facility]) Aluminum Hydroxide 40 MG/ML / Magnesium Hydroxide 40 MG/ML / Simethicone 4 MG/ML Oral Suspension Wflrxynh-Xruungrbv-Qkwctytfpde 200-200-20 MG/5ML Oral Suspension Vkshwsgj-Uydnrtqpu-Qwyhvvnkbfn 200-200-20 MG/5ML Oral Suspension 04/04/2020 12:00:00 AM EDT active aluminum hydroxide 40 MG/ML / magnesium hydroxide 40 MG/ML / simethicone 4 MG/ML Oral Suspension [place] [facility] ([facility]) Cyclobenzaprine hydrochloride 10 MG Oral Tablet Cyclobenzaprine HCl 10 MG Oral Tablet Cyclobenzaprine HCl 10 MG Oral Tablet 04/04/2020 12:00:00 AM EDT active cyclobenzaprine hydrochlorid e 10 MG Oral Tablet [place] [facility] ([facility]) Senna 8.6 MG Oral Tablet Senna 8.6 MG Oral Tablet 04/04/2020 12:00: 00 AM EDT active Senna [facility] ([facility]) Hydroxyzine Hydrochloride 50 MG Oral Tablet hydrOXYzin e HCl 50 MG Oral Tablet hydrOXYzine HCl 50 MG Oral Tablet 04/04/2020 12:00:00 AM EDT 1 aborted hydroxyzine hydrochloride 50 MG Oral Tab let [place] [facility] ([facility]) Acetaminophen 325 MG Oral Tablet Acetaminophen 325 MG Oral T ablet 04/04/2020 12:00:00 AM EDT active acetamin ophen 325 MG Oral Tablet [place] [facility] ([facility]) Hydroxyzine Hydrochloride 50 MG Oral Tab let hydrOXYzine HCl 50 MG Oral Tablet (ATARAX) hydrOXYzine HCl 50 MG Oral Tablet (ATARAX) 04/04/2020 12:00: 00 AM EDT 50 mg Oral active Take 1 tablet by mouth every 6 (six) hours as needed for Anxiety (Sleep) [facility] Escitalopram 10 MG Oral Tablet Escitalopram Oxalate 10 MG Oral Tablet (LEXAPRO) Escitalopram Oxalate 10 MG Oral Tablet (LEXAPRO) 04/04/2020 12:00:00 AM EDT 10 mg Oral active Take 1 tablet by mouth d [facility] Escitalopram 10 MG Oral Tablet escitalopram (LEXAPRO) tablet 10 mg escitalopram (LEXAPRO) tablet 10 mg 04/03/2020 09:00:00 AM EDT 10 mg Oral active 10 mg, Oral, Daily Standard, First dose (after last modification) on Thu04/03/20 at 0900, For 30 days [facility] Medication administered onsite sennosides, CARE HOME 8.6 MG Oral Tablet senna tablet 2 tablet sen na tablet 2 tablet 04/02/2020 04:34:05 PM EDT 2 {tbl} Oral active 2 tablet, Oral, Nightly PRN, Constipation, Starting Thu04/02/20 at 1634, For 30 days [facility] Medication administered onsite Hydroxyzine Hydrochloride 50 MG Oral Tablet hydrOXYzin e (ATARAX) tablet 50 mg hydrOXYzine (ATARAX) tablet 50 mg 04/02/2020 04:28:59 PM EDT 50 mg Oral active 50 mg, Oral, Every 6 hours PRN, Anxiety, Sleep, Starting Thu04/02/20 at 1628, For 30 days [facility] Medication administered onsite Acetaminophen 325 MG Oral Tablet acetaminophen (TYLENO L) tablet 650 mg acetaminophen (TYLENOL) tablet 650 mg 04/02/2020 04:28:48 PM EDT 65 0 mg Oral active 650 mg, Oral, E very 6 hours PRN, Mild Pain (Pain Scale Score 1- 3), Starting Thu04/02/20 at 1628, For 30 days
Maximum daily dose of acetaminophen is 3,000 mg from all sources in 24 hours.
[facility] Medication administered onsite pantoprazole 40 MG Delayed Release Oral Tablet pantoprazole (PROTONIX) EC tablet 40 mg pantoprazole (PROTONIX) EC tablet 40 mg 04/02/2020 07:30:00 AM E DT 40 mg Oral active 40 mg, Ora l, Before Breakfast, First dose on Thu04/02/20 at 0730, For 30 days
Do not crush or chew
[facility] Medication administered onsite Acetaminophen 325 MG Oral Tablet acetaminophen (TYLENO L) tablet 650 mg acetaminophen (TYLENOL) tablet 650 mg 04/02/2020 01:15:00 AM EDT 65 0 mg Oral completed 650 mg, Oral, O nce, Thu04/02/20 at 0115, For 1 dose
Maximum daily dose of acetaminophen from all sources 75 mg/kg/day.
[facility] Medication administered onsite Escitalopram 10 MG Oral Tablet escitalopram (LEXAPRO) tablet 10 mg escitalopram (LEXAPRO) tablet 10 mg 04/01/2020 09:00:00 AM EDT 10 mg Oral aborted 10 mg, Oral, Daily Standard, First dose on 04/01/20 at 0900, For 3 days [facility] Medication administered onsite pantoprazole 40 MG Delayed Release Oral Tablet Pantoprazole Sodium 40 MG OR [facility] Pantoprazole Sodium 40 MG OR [facility] 03/27/2020 12:00:00 AM EDT aborted pantoprazole 40 MG Delayed Release Oral Tablet [facility] ([facility]) pantoprazole 40 MG Delayed Release Oral Tablet Pantoprazole Sodium 40 MG Oral Tablet Delayed Release Pantoprazole Sodium 40 MG Oral Tablet Delayed Release 03/27/2020 12:00:00 AM EDT aborted pantoprazole 40 MG Delayed Release Oral Tablet [facility] ([facility]) Ondansetron 4 MG Disintegrating Oral Tab let ondansetron (ZOFRAN-ODT) disintegrating tablet 4 mg ondansetron (ZOFRAN-ODT) disintegrating tablet 4 mg 03/21/2020 11:30:00 PM EDT 4 mg Oral completed 4 mg, Oral, Once, Thu03/21/20 at 2330, For 1 dose
Dissolve on tongue.
[facility] Medication administered onsite Aluminum Hydroxide 40 MG/ML / Magnesium Hydroxide 40 MG/ML / Simethicone 4 MG/ML Oral Suspension Alum & Mag Hydroxide-Simeth (MAALOX PLUS) 200-200-20 MG/5ML suspension 30 mL Alum & Mag Hydroxide-Simeth (MAALOX PLUS ) 200-200-20 MG/5ML suspension 30 mL 03/21/2020 11:30:00 PM EDT 30 mL Oral c ompleted 30 mL, Oral, Once, Thu03/21/20 at 2330, For 1 dose [facility] Medication administered onsite Lidocaine Hydrochloride 20 MG/ML Mucous Membrane Topical Solution lidocaine (XYLOCAINE) 2 % mouth solution 10 mL lidocaine (XYLOCAINE) 2 % mouth solution 10 mL 03/21/2020 11:30:00 PM EDT 10 mL Mouth/Throat compl eted 10 mL, Mouth/Throat, Once, Thu03/21/20 at 2330, For 1 dose
swallow
[facility] Medication administered onsite Ondansetron 4 MG Oral Tablet Ondansetron HCl 4 MG Oral Tablet (ZOFRAN) Ondansetron HCl 4 MG Oral Tablet (ZOFRAN) 03/21/2020 12:00:00 AM EDT 4 mg Oral completed Take 1 tablet by mouth every 8 (eight) hours as needed for Nausea for up to 7 days [facility] Aluminum Hydroxide 40 MG/ML / Magnesium Hydroxide 40 MG/ML / Simethicone 4 MG/ML Oral Suspension Alahkhlo-Knsqozlpd-Ljwfqeqcvgz 200-200-20 MG/5ML Oral Suspension (MAALOX) Jvxlygbh-Glfkugzmc-Lyypyoygzcg 200-200-2 0 MG/5ML Oral Suspension (MAALOX) 03/21/2020 12:00:00 AM EDT 30 mL Oral active Take 30 mLs by mouth Four times daily before meals and nightly [facility] Escitalopram 10 MG Oral Tablet Escitalopram Oxalate 10 MG Oral Tablet Escitalopram Oxalate 10 MG Oral Tablet 03/12/2020 12:00:00 AM EDT active escitalopram 10 MG Oral Tablet [facility] ([facility]) quetiapine 50 MG Oral Tablet QUEtiapine Fumarate 50 MG Oral Tablet QUEtiapine Fumarate 50 MG Oral Tablet 03/12/2020 12:00:00 AM EDT 1 aborted quetiapine 50 MG Oral Tablet [facility] ([facility]) Acetaminophen 325 MG Oral Tablet acetaminophen (TYLENO L) tablet 650 mg acetaminophen (TYLENOL) tablet 650 mg 02/16/2020 09:30:00 PM EDT 65 0 mg Oral completed 650 mg, Oral, O nce, Janna 02/16/20 at 2130, For 1 dose
Maximum daily dose of acetaminophen is 3,000 mg from all sources in 24 hours.
[facility] Medication administered onsite quetiapine 50 MG Oral Tablet QUEtiapine Fumarate 50 MG Oral Tablet (SEROquel) QUEtiapine Fumarate 50 MG Oral Tablet (SEROquel) 02/16/2020 12:00:00 AM EDT 50 mg Oral active Take 1 tablet by mouth [facility] pantoprazole 40 MG Delayed Release Oral Tablet Pantoprazole Sodium 40 MG Oral Tablet Delayed Release (PROTONIX) Pantoprazole Sodium 40 MG Oral Tablet De layed Release (PROTONIX) 02/16/2020 12:00:00 AM EDT 40 mg Oral active Take 1 tablet by mouth every morning before breakfast [facility] pantoprazole 40 MG Delayed Release Oral Tablet Pantoprazole Sodium 40 MG Oral Tablet Delayed Release Pantoprazole Sodium 40 MG Oral Tablet Delayed Release 02/16/2020 12:00:00 AM EDT aborted pantoprazole 40 MG Delayed Release Oral Tablet [facility] ([facility]) quetiapine 50 MG Oral Tablet QUEtiapine Fumarate 50 MG Oral Tablet QUEtiapine Fumarate 50 MG Oral Tablet 02/16/2020 12:00:00 AM EDT 1 aborted quetiapine 50 MG Oral Tablet [facility] ([facility]) quetiapine 25 MG Oral Tablet QUEtiapine (SEROquel) tab let 50 mg QUEtiapine (SEROquel) tablet 50 mg 02/14/2020 10:00:00 PM EDT 50 mg Oral aborted 50 mg, Oral, Nightly, First dose on Thu02/14/20 at 2200, For 30 days [facility] Medication administered onsite pantoprazole 40 MG Delayed Release Oral Tablet pantoprazole (PROTONIX) EC tablet 40 mg pantoprazole (PROTONIX) EC tablet 40 mg 02/13/2020 10:15:00 AM E DT 40 mg Oral aborted 40 mg, Ora l, Before Breakfast, First dose on 02/13/20 at 1015, For 30 days
Do not crush or chew
[facility] Medication administered onsite Escitalopram 10 MG Oral Tablet escitalopram (LEXAPRO) tablet 10 mg escitalopram (LEXAPRO) tablet 10 mg 02/11/2020 09:00:00 AM EDT 10 mg Oral aborted 10 mg, Oral, Daily Standard, First dose on 02/11/20 at 0900, For 30 days [facility] Medication administered onsite Cyclobenzaprine hydrochloride 10 MG Oral Tablet cyclobenzaprine (FLEXERIL) tablet 10 mg cyclobenzaprine (FLEXERIL) tablet 10 mg 02/11/2020 04:45:36 AM EDT 10 mg Oral aborted 10 mg, Oral, Thr ee Times Daily-PRN, Muscle spasms, Starting 02/11/20 at 0445, For 30 days [facility] Medication administered onsite sennosides, CARE HOME 8.6 MG Oral Tablet senna tablet 2 tablet sen na tablet 2 tablet 02/11/2020 04:45:27 AM EDT 2 {tbl} Oral aborted 2 tablet, Oral, Nightly PRN, Constipation, Starting 02/11/20 at 0445, For 30 days [facility] Medication administered onsite Acetaminophen 325 MG Oral Tablet acetaminophen (TYLENO L) tablet 650 mg acetaminophen (TYLENOL) tablet 650 mg 02/11/2020 04:45:06 AM EDT 65 0 mg Oral aborted 650 mg, Oral, E very 6 hours PRN, Mild Pain (Pain Scale Score 1- 3), Starting 02/11/20 at 0445, For 30 days
Maximum daily dose of acetaminophen is 3,000 mg from all sources in 24 hours.
[facility] Medication administered onsite Escitalopram 10 MG Oral Tablet escitalopram (LEXAPRO) tablet 10 mg escitalopram (LEXAPRO) tablet 10 mg 02/02/2020 09:00:00 AM EDT 10 mg Oral active 10 mg, Oral, Daily Standard, First dose on Janna 02/02/20 at 0900, For 30 days [facility] Medication administered onsite Acetaminophen 325 MG Oral Tablet acetaminophen (TYLENO L) tablet 650 mg acetaminophen (TYLENOL) tablet 650 mg 02/01/2020 11:27:43 PM EDT 65 0 mg Oral active 650 mg, Oral, E very 6 hours PRN, Mild Pain (Pain Scale Score 1- 3), Starting Thu02/01/20 at 2327, For 30 days
Maximum daily dose of acetaminophen is 3,000 mg from all sources in 24 hours.
[facility] Medication administered onsite sennosides, CARE HOME 8.6 MG Oral Tablet senna tablet 2 tablet sen na tablet 2 tablet 02/01/2020 11:27:43 PM EDT 2 {tbl} Oral active 2 tablet, Oral, Nightly PRN, Constipation, Starting Thu02/01/20 at 2327, For 30 days [facility] Medication administered onsite Ibuprofen 400 MG Oral Tablet ibuprofen (MOTRIN) tablet 800 mg ibuprofen (MOTRIN) tablet 800 mg 02/01/2020 11:27:43 PM EDT 800 mg Oral act [place] 800 mg, Oral, Every 8 hours PRN, Mild Pain (Pain Scale Score 1-3), Starting Thu02/01/20 at 2327, For 30 days [facility] Medication administered onsite Cyclobenzaprine hydrochloride 10 MG Oral Tablet cyclobenzaprine (FLEXERIL) tablet 10 mg cyclobenzaprine (FLEXERIL) tablet 10 mg 02/01/2020 11:27:43 PM EDT 10 mg Oral active 10 mg, Oral, Thr ee Times Daily-PRN, Muscle spasms, Starting Thu02/01/20 at 2327, For 30 days [facility] Medication administered onsite Bisacodyl 10 MG Rectal Suppository bisacodyl (DULCOLAX ) suppository 10 mg bisacodyl (DULCOLAX) suppository 10 mg 02/01/2020 11:27:43 PM EDT 10 mg Rectal active 10 mg, Rectal, Daily PRN, Constipation, Constipation, Starting Thu02/01/20 at 2327, For 667 hours [facility] Medication administered onsite Acetaminophen 325 MG Oral Tablet acetaminophen (TYLENO L) tablet 650 mg acetaminophen (TYLENOL) tablet 650 mg 02/01/2020 09:30:00 PM EDT 65 0 mg Oral completed 650 mg, Oral, O nce, Thu02/01/20 at 2130, For 1 dose
Maximum daily dose of acetaminophen is 3,000 mg from all sources in 24 hours.
[facility] Medication administered onsite Promethazine Hydrochloride 25 MG Oral Ta blet promethazine (PHENERGAN) tablet 25 mg promethazine (PHENERGAN) tablet 25 mg 01/31/2020 08:55:00 PM EDT 25 mg Oral aborted 25 mg, Oral, E very 6 hours PRN, Nausea, Vomiting, Starting Thu01/31/20 at 2055, For 30 days [facility] Medication administered onsite Escitalopram 10 MG Oral Tablet escitalopram (LEXAPRO) tablet 10 mg escitalopram (LEXAPRO) tablet 10 mg 01/31/2020 09:00:00 AM EDT 10 mg Oral aborted 10 mg, Oral, Daily Standard, First dose on Thu01/31/20 at 0900, For 30 days [facility] Medication administered onsite heparin (porcine) 5000 UNIT/ML injection 5,000 Units 03157-3 [id number] 01/30/2020 05:00:00 PM EDT 5000 U Subcutaneous aborted 5,000 Units, Subcutaneous, Three Times Daily Standard, First dose on Thu01/30/20 at 1700, For 30 days [facility] Medication administered onsite Docusate Sodium 100 MG Oral Capsule docusate sodium (C OLACE) capsule 100 mg docusate sodium (COLACE) capsule 100 mg 01/30/2020 11:12:01 AM EDT 100 mg Oral aborted 100 mg, Oral, 2 Times Daily PRN, Constipation, Starting Thu01/30/20 at 1112, For 30 days [facility] Medication administered onsite sennosides, CARE HOME 8.6 MG Oral Tablet senna tablet 2 tablet sen na tablet 2 tablet 01/30/2020 11:12:01 AM EDT 2 {tbl} Oral aborted 2 tablet, Oral, Nightly PRN, Constipation, Starting Thu01/30/20 at 1112, For 30 days [facility] Medication administered onsite Bisacodyl 10 MG Rectal Suppository bisacodyl (DULCOLAX ) suppository 10 mg bisacodyl (DULCOLAX) suppository 10 mg 01/30/2020 11:12:01 AM EDT 10 mg Rectal aborted 10 mg, Rectal, Daily PRN, Constipation, Constipation, Starting Thu01/30/20 at 1112, For 30 days [facility] Medication administered onsite Acetaminophen 325 MG Oral Tablet acetaminophen (TYLENO L) tablet 650 mg acetaminophen (TYLENOL) tablet 650 mg 01/30/2020 11:12:01 AM EDT 65 0 mg Oral aborted 650 mg, Oral, E very 4 hours PRN, Mild Pain (Pain Scale Score 1- 3), Starting Thu01/30/20 at 1112, For 3 days
Maximum daily dose of acetaminophen is 3,000 mg from all sources in 24 hours.
[facility] Medication administered onsite Acetaminophen 325 MG Oral Tablet acetaminophen (TYLENO L) tablet 325 mg acetaminophen (TYLENOL) tablet 325 mg 01/29/2020 06:45:00 PM EDT 32 5 mg Oral completed 325 mg, Oral, O nce, 01/29/20 at 1845, For 1 dose
Maximum daily dose of acetaminophen is 3,000 mg from all sources in 24 hours.
[facility] Medication administered onsite Ondansetron 4 MG Disintegrating Oral Tab let ondansetron (ZOFRAN-ODT) disintegrating tablet 4 mg ondansetron (ZOFRAN-ODT) disintegrating tablet 4 mg 01/28/2020 06:15:00 PM EDT 4 mg Oral completed 4 mg, Oral, Once, 01/28/20 at 1815, For 1 dose
Dissolve on tongue.
[facility] Medication administered onsite Acetaminophen 325 MG Oral Tablet acetaminophen (TYLENO L) tablet 325 mg acetaminophen (TYLENOL) tablet 325 mg 01/28/2020 06:15:00 PM EDT 32 5 mg Oral completed 325 mg, Oral, O nce, 01/28/20 at 1815, For 1 dose
Maximum daily dose of acetaminophen is 3,000 mg from all sources in 24 hours.
[facility] Medication administered onsite Acetaminophen 325 MG Oral Tablet acetaminophen (TYLENO L) tablet 650 mg acetaminophen (TYLENOL) tablet 650 mg 12/18/2019 04:45:00 PM EDT 65 0 mg Oral completed 650 mg, Oral, O nce, 12/18/19 at 1645, For 1 dose
Maximum daily dose of acetaminophen is 3,000 mg from all sources in 24 hours.
[facility] Medication administered onsite Escitalopram 10 MG Oral Tablet Escitalopram Oxalate 10 MG Oral Tablet Escitalopram Oxalate 10 MG Oral Tablet 12/12/2019 12:00:00 AM EDT 1 aborted escitalopram 10 MG Oral Tablet G REENWAY ([facility]) POLYETHYLENE GLYCOL 3350 142 MG/ML Oral Solution polyethylene glycol (MIRALAX) packet 17 g polyethylene glycol (MIRALAX) packet 17 g 11/15/2019 0 6:30:00 AM EDT 17 g Oral completed 17 g, Oral, Once, 11/15/19 at 0630, For 1 dose
Mix in 8 ounces of water, juice or milk. Avoid use in patients who require thickened liquids due to potential increased risk for aspiration.
[facility] Medication administered onsite Levofloxacin 750 MG Oral Tablet levoFLOXacin 750 MG Or al Tablet (LEVAQUIN) levoFLOXacin 750 MG Oral Tablet (LEVAQUIN) 11/15/2019 12:00:00 AM EDT 750 mg Oral active Take 1 tablet by rena th every evening for 10 days [facility] sennosides, CARE HOME 8.6 MG Oral Tablet Senna 8.6 MG Oral T ablet Senna 8.6 MG Oral Tablet 11/15/2019 12:00:00 AM EDT 2 {tbl} Oral active Take 2 tablets by mouth nightly as needed [facility] Levofloxacin 750 MG Oral Tablet levoFLOXacin 750 MG Or al Tablet (LEVAQUIN) levoFLOXacin 750 MG Oral Tablet (LEVAQUIN) 11/15/2019 12:00:00 AM EDT 750 mg Oral aborted Take 1 tablet by rena th every evening for 10 days [facility] Ibuprofen 400 MG Oral Tablet Ibuprofen 400 MG Oral Tab let (MOTRIN) Ibuprofen 400 MG Oral Tablet (MOTRIN) 11/15/2019 12:00:00 AM EDT 400 mg Oral active Take 1 tablet by mouth every 6 (six) hours as needed for up to 10 days [facility] levoFLOXacin (LEVAQUIN) tablet 750 mg 11/15/2019 12:00:00 AM EDT 750 mg Oral active 750 mg, Oral, Every evening, First dose (after last reorder) on Thu11/15/19 at 0000, For 5 days
Administer 2 hours before or 4 hours after oral magnesium, calcium, iron, and sucralfate.
Discouraged Uses: Treatment of UTI
[facility] Medication administered onsite NaCl infusion 0.9 % [id number] 11/14/2019 11:45:00 PM EDT Intravenous active at 100 mL/hr, Intrav enous, Continuous, Starting Thu11/14/19 at 2345, For 2 days [facility] Medication administered onsite sennosides, CARE HOME 8.6 MG Oral Tablet senna 8.6 MG 2 tablet sen na 8.6 MG 2 tablet 11/14/2019 11:33:20 PM EDT 2 {tbl} Oral active 2 tablet, Oral, Nightly PRN, Constipation, Starting Thu11/14/19 at 2333, For 30 days [facility] Medication administered onsite Ibuprofen 400 MG Oral Tablet ibuprofen (MOTRIN) tablet 400 mg ibuprofen (MOTRIN) tablet 400 mg 11/14/2019 11:33:06 PM EDT 400 mg Oral act [place] 400 mg, Oral, Every 6 hours PRN, Mild Pain (Pain Scale Score 1-3), Starting Thu11/14/19 at 2333, For 30 days
Take with food.
[facility] Medication administered onsite Acetaminophen 325 MG Oral Tablet acetaminophen (TYLENO L) tablet 650 mg acetaminophen (TYLENOL) tablet 650 mg 11/14/2019 11:33:02 PM EDT 65 0 mg Oral active 650 mg, Oral, E very 4 hours PRN, Mild Pain (Pain Scale Score 1- 3), Starting Thu11/14/19 at 2333, For 30 days
Maximum daily dose of acetaminophen is 3,000 mg from all sources in 24 hours.
[facility] Medication administered onsite Ondansetron 4 MG Disintegrating Oral Tab let ondansetron (ZOFRAN-ODT) disintegrating tablet 4 mg ondansetron (ZOFRAN-ODT) disintegrating tablet 4 mg 11/14/2019 11:28:34 PM EDT 4 mg Oral active 4 mg, Oral, Every 8 hours PRN, Nausea, Vomiting, Starting Thu11/14/19 at 2328, For 3 days
Dissolve on tongue.
[facility] Medication administered onsite Ibuprofen 400 MG Oral Tablet ibuprofen (MOTRIN) tablet 400 mg ibuprofen (MOTRIN) tablet 400 mg 11/14/2019 07:30:00 PM EDT 400 mg Oral com pleted 400 mg, Oral, Once, Thu11/14/19 at 1930, For 1 dose
Take with food.
[facility] Medication administered onsite sodium chloride 0.9 % bolus 1,000 mL 11/14/2019 07:30: 00 PM EDT 1000 mL Intravenous completed 1,000 mL , Intravenous, Once, Thu11/14/19 at 1930, For 1 dose [facility] Medication administered onsite iohexol (OMNIPAQUE) 350 MG/ML contrast injection 100 mL 2805 8 11/14/2019 05:15:00 PM EDT 100 mL Given by IV completed 100 mL, Given by IV, 1 TIME IMAGING, Thu11/14/19 at 1715, For 1 dose [facility] Medication administered onsite sodium chloride 0.9 % bolus 1,000 mL 11/14/2019 03:15: 00 PM EDT 1000 mL Intravenous completed 1,000 mL , Intravenous, Once, Thu11/14/19 at 1515, For 1 dose [facility] Medication administered onsite Acetaminophen 325 MG Oral Tablet acetaminophen (TYLENO L) tablet 650 mg acetaminophen (TYLENOL) tablet 650 mg 11/14/2019 02:30:00 PM EDT 65 0 mg Oral completed 650 mg, Oral, O nce, Thu11/14/19 at 1430, For 1 dose
Maximum daily dose of acetaminophen is 3,000 mg from all sources in 24 hours.
[facility] Medication administered onsite Ondansetron 4 MG Disintegrating Oral Tab let ondansetron (ZOFRAN-ODT) disintegrating tablet 4 mg ondansetron (ZOFRAN-ODT) disintegrating tablet 4 mg 08/16/2019 07:30:00 AM EST 4 mg Oral completed 4 mg, Oral, Once, e 08/16/19 at 0730, For 1 dose
Dissolve on tongue.
[facility] Medication administered onsite Albuterol 0.833 MG/ML / Ipratropium Brom zita 0.167 MG/ML Inhalant Solution ipratropium-albuterol (DUONEB) 0.5-2.5 (3) MG/3ML nebulizer solution 3 mL ipratropium-albuterol (DUONEB) 0.5-2.5 (3) MG/3ML nebulizer solution 3 mL 08/16/2019 12:30:00 AM EST 3 mL Nebulization complete d 3 mL, Nebulization, Once, 08/16/19 at 0030, For 1 dose
For Adults Q8 Hours is Hospital Standard, all orders will be changed to this unless JODI is selected 'Yes' below.
[facility] Medication administered onsite Ondansetron 4 MG Disintegrating Oral Tab let Ondansetron 4 MG Oral Tablet Disintegrating (ZOFRAN-ODT) Ondansetron 4 MG Oral Tablet Disintegrat ing (ZOFRAN-ODT) 08/16/2019 12:00:00 AM EST 4 mg Oral abort ed Take 1 tablet by mouth every 8 (eight) hours as needed [facility] Escitalopram 10 MG Oral Tablet Escitalopram Oxalate (L exapro) 10 mg tablet Escitalopram Oxalate (Lexapro) 10 mg tablet 08/15/2019 11:06:16 AM EST TABLET 10 MG [facility] 10 MG Oral Tablet Escitalopram Oxalate Escitalo pram Oxalate 08/15/2019 11:06:16 AM EST TABLET 10 MG ORAL active [facility] Escitalopram 10 MG Oral Tablet Escitalopram Oxalate Escitalo pram Oxalate 08/15/2019 11:06:00 AM EST TABLET 10 MG [facility] Escital[facility] 10 MG Oral Tablet Escitalopram Oxalate Escitalo pram Oxalate 08/15/2019 11:06:00 AM EST TABLET 10 MG ORAL active [facility] doxycycline hyclate 100 MG Oral Tablet Doxycycline Hyc late 100 MG Oral Tablet Doxycycline Hyclate 100 MG Oral Tablet 06/27/2019 12:00:00 AM EST 1 aborted doxycycline hyclate 100 MG Oral Tablet JOE ([facility]) 100 mg 06/27/2019 12:00:00 AM EST capsule 20 TAKE ONE CAPSULE BY MOUTH TWICE A DAY TAKE ONE CAPSULE BY MOUTH TWICE A DAY SOLD: 06/28/2019 [facility] Escitalopram 10 MG Oral Tablet ESCITALOPRAM OXALATE 06/23/2019 1 2:00:00 AM EST tablet 30 TAKE 1/2 TABLET ONCE DAILY FOR 7 DAYS, THEN TAKE ONE TABLET DAILY THEREAFTER TAKE 1/2 TABLET ONCE DAILY FOR 7 DAYS, T HEN TAKE ONE TABLET DAILY THEREAFTER SOLD: 06/28/2019 [facility] Escitalopram 10 MG Oral Tablet Escitalopram Oxalate 10 MG Oral Tablet Escitalopram Oxalate 10 MG Oral Tablet 06/23/2019 12:00:00 AM EST aborted escitalopram 10 MG Oral Tablet G SUJEY ([facility]) Zithromax Z-Bry 250 mg tablet 06/10/2019 12:00:00 AM EST 1 completed , Take 1 tablet orally 2 day 1, 1 day 2- 5 06/10/2019 [facility] ([facility]) azelastine 137 mcg (0.1 %) nasal spray aerosol 06/10/2019 12:00:00 AM EST 2 completed , Take 2 aeros ol, spray with pump (mL) nasally Every 12 hours as needed 06/10/2019 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[facility]) 137 mcg (0.1 %) 06/10/2019 12:00:00 AM EST aerosol,spray 30 SPRAY TWO SPRAYS IN EACH NOSTRIL EVERY 12 HOURS NEEDED SPRAY TWO SPRAYS IN EACH NOSTRIL EVERY 12 HOURS NEEDED SOLD: 06/10/2019 [facility] 250 mg 06/10/2019 12:00:00 AM EST tablet 6 TAKE TWO TABLETS BY MOUTH AT ONCE ON THE FIRST DAY THEN TAKE ONE DAILY THEREAFTER TAKE TWO TABLETS BY MOUTH AT ONCE ON THE FIRST DAY THEN TAKE ONE DAILY THEREAFTER SOLD: 06/10/2019 [facility] 325 mg 06/02/2019 12:00:00 AM EST tablet 30 TAKE TWO TABLETS BY MOUTH EVERY 6 HOURS NEEDED FOR PAIN TAKE TWO TABLETS BY MOUTH EVERY 6 HOURS NEEDED FOR PAIN SOLD: 06/10/2019 [facility] Ondansetron 4 MG Disintegrating Oral Tablet Ondansetro n 4 MG OR TBDP Ondansetron 4 MG OR TBDP 06/02/2019 12:00:00 AM EST comp leted ondansetron 4 MG Disintegrating Oral Tablet JOE ([facility]) Medication administered onsite given S.L. 4 mg 06/02/2019 12:00:00 AM EST tablet,disintegrating 2 0 DISSOLVE ONE TABLET ON TONGUE EVERY 8 HOURS NEEDED FOR NAUSEA DISSOLVE ONE TABLET ON TONGUE EVERY 8 HOURS NEEDED FOR NAUSEA SOLD: 06/10/2019 [facility] Ondansetron 4 MG Disintegrating Oral Tablet Ondansetron 05/09/2019 03:31:42 PM EST UNASSIGNED 4 MG ORAL completed [facility] Ondansetron 4 MG Disintegrating Oral Tablet Ondansetron 05/09/2019 03:31:42 PM EST UNASSIGNED 4 MG ORAL completed [facility] Ondansetron 4 MG Disintegrating Oral Tablet Ondansetron 05/09/2019 03:31:00 PM EST UNASSIGNED 4 MG ORAL completed [facility] Ondansetron 4 MG Disintegrating Oral Tablet Ondansetron 05/09/2019 03:31:00 PM EST UNASSIGNED 4 MG ORAL completed [facility] Sulfamethoxazole 800 MG / Trimethoprim 1 60 MG Oral Tablet Sulfamethoxazole-Trimethoprim Sulfamethoxazole-Trimethoprim 05/09/2019 03:29:49 PM EST TABLET 1 TAB ORAL completed [facility] Sulfamethoxazole 800 MG / Trimethoprim 1 60 MG Oral Tablet Sulfamethoxazole- Trimethoprim (Bactrim Ds) 800-160 mg tablet Sulfamethoxazole-Trimethoprim (Bactrim Ds) 800-160 mg tablet 05/09/2019 03:29:49 PM EST TABLET 1 TAB OR AL completed [facility] Sulfamethoxazole 800 MG / Trimethoprim 1 60 MG Oral Tablet Sulfamethoxazole-Trimethoprim Sulfamethoxazole-Trimethoprim 05/09/2019 03:29:00 PM EST TABLET 1 TAB ORAL completed [facility] Sulfamethoxazole 800 MG / Trimethoprim 1 60 MG Oral Tablet Sulfamethoxazole-Trimethoprim Sulfamethoxazole-Trimethoprim 05/09/2019 03:29:00 PM EST TABLET 1 TAB ORAL completed [facility] Ondansetron 4 MG Disintegrating Oral Tab let Ondansetron 4 MG Oral Tablet Disintegrating Ondansetron 4 MG Oral Tablet Disintegrating 05/02/2019 12:00:00 AM EST aborted ondansetron 4 MG Disintegrating Oral Tablet JOE ([facility]) Ondansetron 4 MG Disintegrating Oral Tab let ondansetron 4 mg disintegrating tablet ondansetron 4 mg disintegrating tablet 11/01/2018 12:00:00 AM EDT 1 completed 06/10/2019 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[facility]) Ibuprofen 800 MG Oral Tablet Ibuprofen 800 MG Oral Tab let (MOTRIN) Ibuprofen 800 MG Oral Tablet (MOTRIN) 800 mg Oral aborted Take 800 mg by mouth every 8 (eight) hours as needed [facility] Escitalopram 10 MG Oral Tablet Escitalopram Oxalate 10 MG Oral Tablet (LEXAPRO) Escitalopram Oxalate 10 MG Oral Tablet (LEXAPRO) 10 mg Oral aborted Take 10 mg by mouth daily [facility] Insurance Providers Payer name Policy type / Coverage type Policy ID Covered green party ID Covered green party's relationship to harris Policy Harris Plan Information [facility] COMM[facility]AN [facility] [id number] SP [id number] UnitedHealthcare Individual Policy 0 Self 0 UnitedHealthcare Individual Policy 0 Self 0 SELF PAY [facility] COMM[facility]ITY PLAN [id number] SP [id number] SELF PAY [facility] COMMUNITY PLAN [id number] SP [id number] SELF PAY [facility] COMMUNITY PLAN [id number] SP [id number] SELF PAY [facility] COMMUNITY PLAN [id number] SP [id number] SELF PAY [facility] COMMUNITY PLAN [id number] SP [id number] SELF PAY [facility] COMMUNITY PLAN [id number] SP [id number] [facility] I [id number] Self [id number] UnitedHealthcare Individual Policy 0 Self 0 SELF PAY [facility] COMMUNITY PLAN [id number] SP [id number] UnitedHealthcare Individual Policy 0 Self 0 [facility] [id number] Self [id number] [facility] O [id number] S [id number] SELF PAY [facility] COMMUNITY PLAN [id number] SP [id number] SELF PAY [facility] COMMUNITY PLAN [id number] SP [id number] UnitedHealthcare Individual Policy 0 Self 0 SELF PAY [facility] COMMUNITY PLAN [id number] SP [id number] SELF PAY [facility] COMMUNITY PLAN [id number] SP [id number] SELF PAY [facility] COMMUNITY PLAN [id number] SP [id number] UnitedHealthcare Individual Policy 0 Self 0 SELF PAY [facility] COMMUNITY PLAN [id number] SP [id number] SELF PAY [facility] COMMUNITY PLAN [id number] SP [id number] [facility] [id number] SP [id number] [facility] [id number] SP [id number] SELF PAY [facility] COMMUNITY PLAN [id number] SP [id number] SELF PAY [facility] COMMUNITY PLAN [id number] SP [id number] SELF PAY [facility] COMMUNITY PLAN [id number] SP [id number] UnitedHealthcare Individual Policy 0 Self 0 [facility] I [id number] Self [id number] UnitedHealthcare Individual Policy 0 Self 0 [facility] COMMUNITY PLAN [id number] SP [id number] SELF PAY [facility] [id number] SP [id number] United[employer]care Individual Policy 0 Self 0 [facility] [id number] SP [id number] SELF PAY [facility] COMMUNITY PLAN [id number] SP [id number] [facility] [id number] SP [id number] SELF PAY SELF PAY SELF PAY SELF PAY [facility] COMMUNITY PLAN [id number] SP [id number] [facility] COMMUNITY PLAN [id number] SP [id number] UnitedHealthcare Individual Policy 0 Self 0 UnitedHealthcare Individual Policy 0 Self 0 SELF PAY [facility] COMMUNITY PLAN [id number] SP [id number] [facility] COMMUNITY PLAN [id number] SP [id number] SELF PAY [facility] [id number] SP [id number] [facility] [id number] SP [id number] SELF PAY [facility] [id number] SP [id number] UnitedHealthcare Individual Policy 0 Self 0 [facility] I [id number] Self [id number] UnitedHealthcare Individual [place] 0 Self 0 [place] [id number] Self [id number] SELF PAY [facility] COMMUNITY PLAN [id number] SP [id number] UnitedHealthcare Individual Policy 0 Self 0 UnitedHealthcare Individual Policy 0 Self 0 SELF PAY [facility] COMMUNITY PLAN [id number] SP [id number] UnitedHealthcare Individual Policy 0 Self 0 UnitedHealthcare Individual Policy 0 Self 0 SELF PAY [facility] COMMUNITY PLAN [id number] SP [id number] UnitedHealthcare Individual Policy 0 Self 0 UnitedHealthcare Individual Policy 0 Self 0 SELF PAY [facility] COMMUNITY PLAN [id number] SP [id number] SELF PAY [facility] COMMUNITY PLAN [id number] SP [id number] UHC I [id number] Self [id number] SELF PAY [facility] COMMUNITY PLAN [id number] SP [id number] UnitedHealthcare Individual Policy 0 Self 0 SELF PAY [facility] COMMUNITY PLAN [id number] SP [id number] UnitedHealthcare Individual Policy 0 Self 0 SELF PAY [facility] PLAN [id number] SP [id number] [facility] COMM[facility]ITY PLAN [id number] Comme rcial Insurance [id number] UnitedHealthcare Individual Policy 0 Self 0 SELF PAY [facility] PLAN [id number] SP [id number] UnitedHealthcare Individual Policy 0 Self 0 [employer]Healthcare Individual Policy 0 Self 0 SELF PAY [facility] PLAN [id number] SP [id number] UnitedHealthcare Individual Policy 0 Self 0 UnitedHealthcare Individual Policy 0 Self 0 [facility] COMMUNITY PLAN [id number] SP [id number] SELF PAY [facility] [id number] SP [id number] UnitedHealthcare Individual Policy 0 Self 0 [employer]Healthcare Individual Policy 0 Self 0 SELF PAY [facility] [id number] SP [id number] UnitedHealthcare Individual Policy 0 Self 0 UnitedHealthcare Individual Policy 0 Self 0 NF PENDING [id number] SP [id number] [facility] PLAN [id number] SP [id number] UnitedHealthcare Individual Policy 0 Self 0 [facility] PLAN [id number] Comme rcial Insurance [id number] UnitedHealthcare Individual Policy 0 Self 0 [employer]Healthcare Individual Policy 0 Self 0 [employer]care Individual Policy 0 Self 0 [facility] PLAN [id number] SP [id number] UnitedHealthcare Individual Policy Self [facility] Comme rcial Insurance [facility] [id number] SP [id number] MEDICAID [facility] [id number] SP [id number] [facility] Hmo Commercial Self HMO BLUE MEDICAID [id number] SP [id number] Problems, Conditions, and Diagnoses Code Display Name Description Problem Type Effective Dates Data Source(s) 455682266 Dyspnea (finding) Difficulty Breathing (Dyspnea) Findi ng 02/21/2020 12:00:00 AM EDT [facility] 319348363 Dyspnea (finding) Difficulty Breathing (Dyspnea) Findi ng 02/21/2020 12:00:00 AM EDT [facility] 786.09 Difficulty Breathing (dyspnea) Difficulty Breathing (d yspnea) Finding 02/21/2020 12:00:00 AM EDT [facility] 786.09 Difficulty Breathing (dyspnea) Difficulty Breathing (d yspnea) Finding 02/21/2020 12:00:00 AM EDT [facility] ([facility]) 786.09 Difficulty Breathing (dyspnea) Difficulty Breathing (d yspnea) Finding 02/21/2020 12:00:00 AM EDT [facility] ([facility]) 786.09 Difficulty Breathing (dyspnea) Difficulty Breathing (d yspnea) Finding 02/21/2020 12:00:00 AM EDT [facility] ([facility]) 786.09 Difficulty Breathing (dyspnea) Difficulty Breathing (d yspnea) Finding 02/21/2020 12:00:00 AM EDT [facility] ([facility]) 786.09 Difficulty Breathing (dyspnea) Difficulty Breathing (d yspnea) Finding 02/21/2020 12:00:00 AM EDT [facility] ([facility]) 786.09 Difficulty Breathing (dyspnea) Difficulty Breathing (d yspnea) Finding 02/21/2020 12:00:00 AM EDT [facility] ([facility]) 786.09 Difficulty Breathing (dyspnea) Difficulty Breathing (d yspnea) Finding 02/21/2020 12:00:00 AM EDT [facility] ([facility]) 786.09 Difficulty Breathing (dyspnea) Difficulty Breathing (d yspnea) Finding 02/21/2020 12:00:00 AM EDT [facility]E ([facility]) 271.3 Lactose Intolerance Lactose Intolerance Problem 0 08/23/2019 12:00:00 AM EDT [facility] ([facility]) 311 Depression Depression Problem 08/23/2019 12:00:00 AM ED T [facility]E ([facility]) 271.3 Lactose Intolerance Lactose Intolerance Problem 0 08/23/2019 12:00:00 AM EDT [facility] ([facility]) 311 Depression Depression Problem 08/23/2019 12:00:00 AM ED T [facility] ([facility]) 271.3 Lactose Intolerance Lactose Intolerance Problem 0 08/23/2019 12:00:00 AM EDT [facility] ([facility]) 311 Depression Depression Problem 08/23/2019 12:00:00 AM ED T [facility] ([facility]) 271.3 Lactose Intolerance Lactose Intolerance Problem 0 08/23/2019 12:00:00 AM EDT [facility] ([facility]) 311 Depression Depression Problem 08/23/2019 12:00:00 AM ED T [facility] ([facility]) 271.3 Lactose Intolerance Lactose Intolerance Problem 0 08/23/2019 12:00:00 AM EDT [facility] ([facility]) 311 Depression Depression Problem 08/23/2019 12:00:00 AM ED T [facility] ([facility]) 271.3 Lactose Intolerance Lactose Intolerance Problem 0 08/23/2019 12:00:00 AM EDT [facility] ([facility]) 311 Depression Depression Problem 08/23/2019 12:00:00 AM ED T [facility] ([facility]) 271.3 Lactose Intolerance Lactose Intolerance Problem 0 08/23/2019 12:00:00 AM EDT [facility] ([facility]) 311 Depression Depression Problem 08/23/2019 12:00:00 AM ED T [facility] ([facility]) 271.3 Lactose Intolerance Lactose Intolerance Problem 0 08/23/2019 12:00:00 AM EDT [facility] ([facility]) 311 Depression Depression Problem 08/23/2019 12:00:00 AM ED T [facility] ([facility]) 271.3 Lactose Intolerance Lactose Intolerance Problem 0 08/23/2019 12:00:00 AM EDT [facility] ([facility]) 311 Depression Depression Problem 08/23/2019 12:00:00 AM ED T JOE ([facility]) 271.3 Lactose Intolerance Lactose Intolerance Problem 0 08/23/2019 12:00:00 AM EDT [facility] ([facility]) 311 Depression Depression Problem 08/23/2019 12:00:00 AM ED T [facility]E ([facility]) 271.3 Lactose Intolerance Lactose Intolerance Problem 0 08/23/2019 12:00:00 AM EDT [facility] ([facility]) 311 Depression Depression Problem 08/23/2019 12:00:00 AM ED T JOE ([facility]) 271.3 Lactose Intolerance Lactose Intolerance Problem 0 08/23/2019 12:00:00 AM EDT [facility] ([facility]) 311 Depression Depression Problem 08/23/2019 12:00:00 AM ED T [facility]E ([facility]) 271.3 Lactose Intolerance Lactose Intolerance Problem 0 08/23/2019 12:00:00 AM EDT [facility] ([facility]) 311 Depression Depression Problem 08/23/2019 12:00:00 AM ED T [facility] ([facility]) 271.3 Lactose Intolerance Lactose Intolerance Problem 0 08/23/2019 12:00:00 AM EDT [facility] ([facility]) 311 Depression Depression Problem 08/23/2019 12:00:00 AM ED T [facility] ([facility]) 271.3 Lactose Intolerance Lactose Intolerance Problem 0 08/23/2019 12:00:00 AM EDT [facility] ([facility]) 311 Depression Depression Problem 08/23/2019 12:00:00 AM ED T [facility] ([facility]) 271.3 Lactose Intolerance Lactose Intolerance Problem 0 08/23/2019 12:00:00 AM EDT [facility] ([facility]) 311 Depression Depression Problem 08/23/2019 12:00:00 AM ED T [facility] ([facility]) [id number] Lactose Intolerance Lactose Intolerance Problem 0 08/23/2019 12:00:00 AM EDT [facility] ([facility]) 311 Depression Depression Problem 08/23/2019 12:00:00 AM ED T [facility] ([facility]) 271.3 Lactose Intolerance Lactose Intolerance Problem 0 08/23/2019 12:00:00 AM EDT [facility] ([facility]) 311 Depression Depression Problem 08/23/2019 12:00:00 AM ED T [facility] ([facility]) 480610010 Major depressive disorder (disorder) History of Major Depression Problem 06/23/2019 12:00:00 AM EST [facility] ([facility]) 300.02 Generalized Anxiety Disorder Generalized Anxiety Disor markie Problem 06/23/2019 12:00:00 AM EST [facility] ([facility]) 759582764 Major depressive disorder (disorder) History of Major Depression Problem 06/23/2019 12:00:00 AM EST [facility] ([facility]) 300.02 Generalized Anxiety Disorder Generalized Anxiety Disor markie Problem 06/23/2019 12:00:00 AM EST [facility] ([facility]) 130439504 Major depressive disorder (disorder) History of Major Depression Problem 06/23/2019 12:00:00 AM EST [facility] ([facility]) 300.02 Generalized Anxiety Disorder Generalized Anxiety Disor markie Problem 06/23/2019 12:00:00 AM EST [facility] ([facility]) 665257512 Major depressive disorder (disorder) History of Major Depression Problem 06/23/2019 12:00:00 AM EST [facility] ([facility]) 300.02 Generalized Anxiety Disorder Generalized Anxiety Disor markie Problem 06/23/2019 12:00:00 AM EST [facility] ([facility]) 715328416 Major depressive disorder (disorder) History of Major Depression Problem 06/23/2019 12:00:00 AM EST [facility] ([facility]) 300.02 Generalized Anxiety Disorder Generalized Anxiety Disor markie Problem 06/23/2019 12:00:00 AM EST [facility] ([facility]) 468056683 Major depressive disorder (disorder) History of Major Depression Problem 06/23/2019 12:00:00 AM EST [facility] ([facility]) 300.02 Generalized Anxiety Disorder Generalized Anxiety Disor markie Problem 06/23/2019 12:00:00 AM EST [facility] ([facility]) 003249972 Major depressive disorder (disorder) History of Major Depression Problem 06/23/2019 12:00:00 AM EST [facility] ([facility]) 300.02 Generalized Anxiety Disorder Generalized Anxiety Disor markie Problem 06/23/2019 12:00:00 AM EST [facility] ([facility]) 771981542 Major depressive disorder (disorder) History of Major Depression Problem 06/23/2019 12:00:00 AM EST [facility] ([facility]) 300.02 Generalized Anxiety Disorder Generalized Anxiety Disor markie Problem 06/23/2019 12:00:00 AM EST [facility] ([facility]) 308843365 Major depressive disorder (disorder) History of Major Depression Problem 06/23/2019 12:00:00 AM EST [facility] ([facility]) 300.02 Generalized Anxiety Disorder Generalized Anxiety Disor markie Problem 06/23/2019 12:00:00 AM EST [facility] ([facility]) 862191122 Major depressive disorder (disorder) History of Major Depression Problem 06/23/2019 12:00:00 AM EST [facility] ([facility]) 300.02 Generalized Anxiety Disorder Generalized Anxiety Disor markie Problem 06/23/2019 12:00:00 AM EST [facility] ([facility]) 255170662 Major depressive disorder (disorder) History of Major Depression Problem 06/23/2019 12:00:00 AM EST [facility] ([facility]) 300.02 Generalized Anxiety Disorder Generalized Anxiety Disor markie Problem 06/23/2019 12:00:00 AM EST [facility] ([facility]) 857000517 Major depressive disorder (disorder) History of Major Depression Problem 06/23/2019 12:00:00 AM EST [facility] ([facility]) 300.02 Generalized Anxiety Disorder Generalized Anxiety Disor markie Problem 06/23/2019 12:00:00 AM EST [facility] ([facility]) 476600063 Major depressive disorder (disorder) History of Major Depression Problem 06/23/2019 12:00:00 AM EST [facility] ([facility]) 300.02 Generalized Anxiety Disorder Generalized Anxiety Disor markie Problem 06/23/2019 12:00:00 AM EST [facility] ([facility]) 960444135 Major depressive disorder (disorder) History of Major Depression Problem 06/23/2019 12:00:00 AM EST [facility] ([facility]) 300.02 Generalized Anxiety Disorder Generalized Anxiety Disor markie Problem 06/23/2019 12:00:00 AM EST [facility] ([facility]) 559901144 Major depressive disorder (disorder) History of Major Depression Problem 06/23/2019 12:00:00 AM EST [facility] ([facility]) 300.02 Generalized Anxiety Disorder Generalized Anxiety Disor markie Problem 06/23/2019 12:00:00 AM EST [facility] ([facility]) 700418709 Major depressive disorder (disorder) History of Major Depression Problem 06/23/2019 12:00:00 AM EST [facility] ([facility]) 300.02 Generalized Anxiety Disorder Generalized Anxiety Disor markie Problem 06/23/2019 12:00:00 AM EST [facility] ([facility]) 584212193 Major depressive disorder (disorder) History of Major Depression Problem 06/23/2019 12:00:00 AM EST [facility] ([facility]) 300.02 Generalized Anxiety Disorder Generalized Anxiety Disor markie Problem 06/23/2019 12:00:00 AM EST [facility] ([facility]) 318421577 Major depressive disorder (disorder) History of Major Depression Problem 06/23/2019 12:00:00 AM EST [facility] ([facility]) 300.02 Generalized Anxiety Disorder Generalized Anxiety Disor markie Problem 06/23/2019 12:00:00 AM EST [facility] ([facility]) 926167141 Major depressive disorder (disorder) History of Major Depression Problem 06/23/2019 12:00:00 AM EST [facility] ([facility]) 300.02 Generalized Anxiety Disorder Generalized Anxiety Disor markie Problem 06/23/2019 12:00:00 AM EST [facility] ([facility]) 769477093 Major depressive disorder (disorder) History of Major Depression Problem 06/23/2019 12:00:00 AM EST [facility] ([facility]) 300.02 Generalized Anxiety Disorder Generalized Anxiety Disor markie Problem 06/23/2019 12:00:00 AM EST [facility] ([facility]) 406694672 Major depressive disorder (disorder) History of Major Depression Problem 06/23/2019 12:00:00 AM EST [facility] ([facility]) 300.02 Generalized Anxiety Disorder Generalized Anxiety Disor markie Problem 06/23/2019 12:00:00 AM EST [facility] ([facility]) R09.81 Nasal congestion Nasal congestion (R09.81) 06/10/2019 [id number] 06/10/2019 03:37:51 PM EST 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[facility]) 780.4 Dizziness Dizziness Finding 06/02/2019 12:00:00 AM ES T JOE ([facility]) 780.4 Dizziness Dizziness Finding 06/02/2019 12:00:00 AM ES T [facility] ([facility]) 780.4 Dizziness Dizziness Finding 06/02/2019 12:00:00 AM ES T [facility] ([facility]) 780.4 Dizziness Dizziness Finding 06/02/2019 12:00:00 AM ES T [facility] ([facility]) 780.4 Dizziness Dizziness Finding 06/02/2019 12:00:00 AM ES T [facility] ([facility]) 780.4 Dizziness Dizziness Finding 06/02/2019 12:00:00 AM ES T [facility] ([facility]) 780.4 Dizziness Dizziness Finding 06/02/2019 12:00:00 AM ES T [facility] ([facility]) 780.4 Dizziness Dizziness Finding 06/02/2019 12:00:00 AM ES T [facility] ([facility]) 780.4 Dizziness Dizziness Finding 06/02/2019 12:00:00 AM ES T [facility] ([facility]) 780.4 Dizziness Dizziness Finding 06/02/2019 12:00:00 AM ES T [facility] ([facility]) 780.4 Dizziness Dizziness Finding 06/02/2019 12:00:00 AM ES T [facility] ([facility]) 780.4 Dizziness Dizziness Finding 06/02/2019 12:00:00 AM ES T [facility] ([facility]) 780.4 Dizziness Dizziness Finding 06/02/2019 12:00:00 AM ES T [facility] ([facility]) 780.4 Dizziness Dizziness Finding 06/02/2019 12:00:00 AM ES T [facility] ([facility]) 780.4 Dizziness Dizziness Finding 06/02/2019 12:00:00 AM ES T [facility] ([facility]) 780.4 Dizziness Dizziness Finding 06/02/2019 12:00:00 AM ES T [facility] ([facility]) 780.4 Dizziness Dizziness Finding 06/02/2019 12:00:00 AM ES T [facility] ([facility]) 780.4 Dizziness Dizziness Finding 06/02/2019 12:00:00 AM ES T [facility] ([facility]) 780.4 Dizziness Dizziness Finding 06/02/2019 12:00:00 AM ES T [facility] ([facility]) 780.4 Dizziness Dizziness Finding 06/02/2019 12:00:00 AM ES T [facility] ([facility]) 780.4 Dizziness Dizziness Finding 06/02/2019 12:00:00 AM ES T [facility] ([facility]) 780.4 Dizziness Dizziness Finding 06/02/2019 12:00:00 AM ES T [facility] ([facility]) M79.10 Diffuse muscle tenderness Myalgia, unspecified s ite (M79.10) 06/10/2019 [id number] 11/01/2018 11:02:23 AM EDT - 06/10/2019 12:00:00 AM ES T 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[facility]) R11.2 Nausea with vomiting, unspecified Nausea with vomiting, unspecified (R11.2) 06/10/2019 [id number] 11/01/2018 11:02:23 AM EDT - 06/10/2019 12:00:00 AM EST 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[facility]) B34.9 Viral infection, unspecified Viral infec tion, unspecified (B34.9) 06/10/2019 [id number] 11/01/2018 11:02:23 AM EDT - 06/10/2019 12:00:00 AM EST 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[facility]) R09.81 Nasal congestion Nasal congestion (R09.81) 06/10/2019 [id number] 06/22/2018 04:11:40 PM EST - 06/10/2019 12:00:00 AM EST 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[facility]) J02.9 Acute pharyngitis, unspecified Acute pha ryngitis, unspecified (J02.9) 06/10/2019 [id number] 10/10/2016 09:20:27 AM EDT - 06/10/2019 12:00:00 AM EST A[facility]AMAKER ([facility]) R07.0 Pain in throat R07.0 - Pain in throat Diagnosis 08/2020 11:00:00 PM [facility] R55 Syncope and collapse R55 - Syncope and collapse Diagno sis 07/04/2020 07:22:[address] [facility] PLAYD8 N76.0 Acute vaginitis N76.0 - Acute vaginitis Diagnosis 0 06/26/2020 11:00:[address] [facility] PLAYD8 M25.561 Pain in right knee M25.561 - Pain in right knee Diagno sis 06/20/2020 05:38:[address] [facility] PLAYD8 Z00.00 Encounter for general adult medical examination without abnormal findings Z00.00 - Encounter for general adult med ical examination without abnormal findings Diagnosis 06/15/2020 09:02:[address] [facility] [place] PLAYD8 M25.552 Pain in left hip M25.552 - Pain in left hip Diagnosis 05/26/2020 03[facility]10:[facility].652 Pain in left thigh M79.652 - Pain in left thigh Diagno sis 05/26/2020 03:10:[address] [facility] PLAYD8 Z20.828 Contact with and (suspected) exposure to other viral communicable diseases Contact with and (suspected) exposure to other viral communicable diseases Diagnosis 05/17/2020 08:25:00 PM [facility] I10 Essential (primary) hypertension Essential (primary) h ypertension Diagnosis 05/17/2020 08:25:00 PM [facility] G89.29 Other chronic pain Other chronic pain Diagnosis 08/2019 08:25:00 PM [facility] R10.9 Unspecified abdominal pain Unspecified abdominal pain Diagnosis 05/17/2020 08:25:00 PM [facility] R06.02 Shortness of breath Shortness of breath Diagnosis 1 07/18/2019 08:25:00 PM [facility] Difficulty Breathing Difficulty Breathing Diagnosis 05/17/2020 08:25:00 PM [facility] R10.33 Periumbilical pain Periumbilical pain Diagnosis 11:48:00 AM [facility] abd pain abd pain Diagnosis 05/09/2020 11:48:00 AM [facility] M54.5 Low back pain M54.5 - Low back pain Diagnosis 05/09/2020 07:54:00 [facility] T14.8XXA Other injury of unspecified body region, initial encounter Other injury of unspecified body region, initial encounter Diagnosis 020 11:32:00 PM [facility] General Illness General Illness Diagnosis 05/08/2020 11:3 2:00 PM [facility] R15.9 Full incontinence of feces R15.9 - Full incontinence o f feces Diagnosis 05/04/2020 03:05:[address] [facility] [employer] R42 Dizziness and giddiness R42 - Dizziness and giddiness Diagnosis 05/04/2020 03:05:[address] [facility] [employer] Z12.72 Encounter for screening for malignant ne oplasm of vagina Z12.72 - Encounter for screening for malignant neoplasm of vagina Diagnosis 05/01/2020 11:00:[address] [facility] [place] M25.461 Effusion, right knee M25.461 - Effusion, right knee Di agnosis 04/24/2020 02:30:[address] [facility] [place] Z04.89 Z04.89 - Encounter for exami nation and observation for other specified reasons Z04.89 - Encounter for examination and o bservation for other specified reasons Diagnosis 04/22/2020 03:42:[address] [facility] [place] M54.9 Dorsalgia, unspecified M54.9 - Dorsalgia, unspecified Diagnosis 04/22/2020 02:12:[address] [facility] [place] Shortness of Breath Shortness of Breath Diagnosis 020 06:32:00 PM [facility] R00.2 Palpitations R00.2 - Palpitations Diagnosis 04/17/2020 02 :38:00 PM [facility] R07.89 Other chest pain R07.89 - Other chest pain Diagnosis 04/17/2020 02:38:00 PM [facility] F79 Unspecified intellectual disabilities Unspecifie d intellectual disabilities Diagnosis 04/14/2020 07:42:00 PM [facility] F41.9 Anxiety disorder, unspecified Anxiety disorder, unspec ified Diagnosis [facility] anxiety attack Diagnosis 04/14/2020 07:42: 00 PM [facility] M25.562 Pain in left knee M25.562 - Pain in left knee Diagnosi s 04/07/2020 12:23:00 PM [facility] Feet hurt from walking, right knee injur y Feet hurt from walking, right knee injury Diagnosis [facility].851 Suicidal ideations Suicidal ideations Diagnosis 09:56:41 AM [facility] Psych Eval Psych Eval Diagnosis 03/31/2020 06:50:00 PM ED [facility] R07.89 Other chest pain Other chest pain Diagnosis 03/29/2020 06 :42:00 PM [facility] R07.9 Chest pain, unspecified Chest pain, unspecified Diagno sis 03/29/2020 06:42:00 PM [facility] PSYCHIATRIC EVALUATION PSYCHIATRIC EVALUATION Diagnosi s 03/29/2020 06:42:00 PM [facility] Anxiety Anxiety Diagnosis 03/28/2020 11:42:00 PM ED [facility] J02.9 Acute pharyngitis, unspecified Acute pharyngitis, unsp ecified Diagnosis 03/23/2020 06:55:00 PM [facility] General illness General illness Diagnosis 03/23/2020 06:5 5:00 PM [facility] SOB SOB Diagnosis 03/21/2020 10:15:00 PM ED [facility] R07.9 Chest pain, unspecified R07.9 - Chest pain, unspecifie d Diagnosis 03/05/2020 04:27:00 PM [facility] R45.851 Suicidal ideations R45.851 - Suicidal ideations Diagno sis 02/28/2020 08:34:00 PM EDT [facility] F32.9 Major depressive disorder, single episod e, unspecified F32.9 - Major depressive disorder, single episode, unspecified Diagnosis 02/21 05:00:00 PM EDT [facility] F79 Unspecified intellectual disabilities F7 9 - Unspecified intellectual disabilities Diagnosis 02/22/2020 05:00:00 PM EDT [facility] F33.1 Major depressive disorder, recurrent, mo derate F33.1 - Major depressive disorder, recurrent, moderate Diagnosis 02/22/2020 05:00:00 PM EDT [facility] [employer] PLAYD8 Z13.9 Encounter for screening, unspecified Z13 .9 - Encounter for screening, unspecified Diagnosis 02/22/2020 05:00:00 PM EDT [facility] Psych Eval, feels like harming herself Psych Johanna l, feels like harming herself Diagnosis 02/18/2020 04:17:00 PM [facility] Suicidal/ Psych Eval Suicidal/ Psych Eval Diagnosis 02/18/2020 10:25:00 AM [facility] W19.XXXA Unspecified fall,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 or Tablet Reagent for Bilirub in, Gl Urinalysis, by Dip Stick or Tablet Reagent for Bilirubin, Gl 06/27/2019 12:00:00 AM EST [facility] ([facility]) Glucose, Blood by Glucose Monitoring Device(s) Cleared by Th Glucose, Blood by Glucose Monitoring Device(s) Cleared by Th 06/02/2019 12:00:00 AM EST [facility] ([facility]) Ekg With Interpretation and Report Ekg With Interpretation a nd Report 06/02/2019 12:00:00 AM EST [facility] ([facility]) Ekg With Interpretation and Report Ekg With Interpretation a nd Report 06/02/2019 12:00:00 AM EST [facility] Limited Oral Evaluation Limited Oral Evaluation 05/27/2019 12:00:00 AM EST [facility] ([facility]) intraoral-periapical first radiographic image intraora l-periapical first radiographic image 05/27/2019 12:00:00 AM EST [facility] ([facility]) Periodic Oral Evaluation, [facility] Periodic Oral Evaluati on, [facility] 05/27/2019 12:00:00 AM EST [facility] ([facility]) Results ID Date Data Source [id number] 07/18/2020 03:00:00 PM EST [facility] ([facility]) Name Value Range Interpretation Code Description Data Sudha rce(s) Supporting Document(s) Reported Physicians See Note Reported Physicians [facility] ([facility]) Note: Reported Physicians:Ordering: Nicolasa Stephensding: Nicolasa Pablo ID Date Data Source [id number] 07/18/2020 03:00:00 PM EST [facility] ([employer]) Name Value Range Interpretation Code Description Data Sudha rce(s) Supporting Document(s) See Note Chris See Note Aries DIAZ ([facility]) Note: Run: 07/20/20 0755 INTERFACED REPORT Name: Amy Carranza Age/Sex: 25/F Location: [facility] Acct: [id number] Unit: [id number] Status: REG REF Room/Bed: Re07/18/20 Disch: Att Dr: Nicolasa Pablo [employer] Specimen #: [id number] Ordered : 07/18/2009/02/1756 Collected : 07/18/2009/02/1499 By: OFFICE Received: 07/18/2009/02/1756 By: GREG Source: THROAT Specimen Description: Procedure Result -- FULL THROAT CULT Final USUAL PALLAVI AFTER 18 HOURS USUAL PALLAVI AFTER 42 HOURS FULL THROAT CULT Preliminary (Corrected) USUAL PALLAVI AFTER 18 HOURS END OF REPORT ID Date Data Source [id number] 07/20/2020 07:54:00 AM EST [facility] Run: 07/20/20 0755 INTERFACED REPORT Name: Amy Carranza Age/Sex: 25/F Location: [facility] Acct: [id number] Unit: [id number] Status: REG REF Room/Bed: Re07/18/20 Disch: Raisa Dr: Nicolasa Pablo [employer] Specimen #: [id number] Ordered : 07/18/2009/02/1756 Collected : 07/18/2009/02/1499 By: OFFICE Received: 07/18/2009/02/1756 By: GREG Source: THROAT Specimen Description: Procedure Result - FULL THROAT CULT Final USUAL PALLAVI AFTER 18 HOURS USUAL PALLAVI AFTER 42 HOURS FULL THROAT CULT Preliminary (Corrected) USUAL PALLAVI AFTER 18 HOURS END OF REPORT Name Value Range Interpretation Code Description Data Sudha rce(s) Supporting Document(s) ID Date Data Source [id number] 07/23/2020 01:41:00 AM EST [facility] Name Value Range Interpretation Code Description Data Sudha rce(s) Supporting Document(s) COVID 19 Not Detected Not Detected [facility] This nucleic acid amplification test wa s developed and its performance characteristics determined by [employer]. Nucleic acid amplification tests include RT- PCR and TMA. This test has not been FDA cleared or approved. This test has been authorized by FDA under an Emergency Use Authorization (EUA). This test is only authorized for the duration of time the declaration that circumstances exist justifying the authorization of the emergency use of in vitro diagnostic tests for detection of SARS-CoV-2 virus and/or diagnosis of COVID-19 infection under section 564(b)(1) of the Act, 21 U.S.C. 360bbb-3(b) (1), unless the authorization is terminated or revoked sooner. When diagnostic testing is negative, the possibility of a false negative result should be considered in the context of a patient's recent exposures and the presence of clinical signs and symptoms consistent with COVID-19. An individual without symptoms of COVID-19 and who is not shedding SARS-CoV-2 virus would expect to have a negative (not detected) result in this assay. Performed at: [facility], [place], [place] [id number] Environmental Tech: Erin Cabello PhD, Phone: [phone] ID Date Data Source [id number] 07/18/2020 02:07:00 PM EST [facility] Name Value Range Interpretation Code Description Data Sudha rce(s) Supporting Document(s) SARS coronavirus 2 RNA Not Detected [facility] This lab was ordered by [facility] and reported by [facility]. ID Date Data Source [id number] 07/09/2020 12:00:00 AM EST [facility] Name Value Range Interpretation Code Description Data Sudha rce(s) Supporting Document(s) 2019 Novel Coronavirus RNA Negative [facility] This lab was ordered by [facility] and reported by [facility]. ID Date Data Source [id number] 07/04/2020 08:04:28 PM EST [facility] Name Value Range Interpretation Code Description Data Sudha rce(s) Supporting Document(s) EKG/ECG IN ED [facility] [file] xZyruV9R0/Jose Alberto/Ktgjr16aQLwz8mN2Kr9ye+haZk5kDrHijNCRSkoe+D/AL4vVf8E2q8YyR3YjXpqsF+ [file] [facility] [file] ydK3/wBq/rNYRlzd5N/jygxmeg78beKejWs4uCm1/H60eC/+E9/t4/mumps developer/4RPyovI/tzy/7Q2+Uf+eP8 [file] +pJ8IrUvReuNaaE2G2fbiZUOJDzUVUTNNSNTRSPWGJFAQIIWDKCBSRZBUCCVEKGMDMFOAIIRVGTLYGPH FHGEDWYKJQKKRFPECYVFBTKKAOPSFABBMBZWZx17b+/bf8C/aQEXTJv4NIr86HSDDTQA7K3D4v/wDU6L 9Zv/ZKKKmWxjX/LTvCKiTYSpKYVfzkhE7Y1Ex5l1Uh +vYf+pItx1NZ5duuep/gQUUUVRuFeTfG/wD1Oi/Wb/0QouttcV8/9tATpGEYtTNRsyyqI1U2Fn2TRo9D /r2H/iSr5ckyeO0En1e6MPIHXTnkXb8lc/1Oi/Wb/wBkooqZbGNf+Cwk3gtbbN0hAMdupT5g5XL+Q7qP /XsP/MrKcpVWSRS0QR/GaihafnhL7r+N/wDqdF+s3/ slFFTLYxr/DJDpwpREMRdkvOXDHK6z9ST+Q7qP/XsP/CsYyyCYdC7YEs/hDZNPIt1KjEdop/qdF+s3/s lFFTLYxr/l8kI8PBSviYCSNTCQwFaB/wCQ7qP/AF7D/mTBFj43LCcSI6TY/ZqqmhhonW2f+N/+p0X6zf 8AslFFTLYxr/k8nH1NAAnrPOOCAMHqFkQ/5Duo/wDX oZ2K1AI9LQFEsyn40A5RRgilfvqzA7/Df/ISf/xvx8hqepwzwM/zeFjcziuV5jYQGAUCywvhZlluoNUR KKACiiigAooooAKKKKACiiigAooooAKKKKACiiigAooooAKKKKACiiigAooooAKKKKAP/4dLFtWsSHS7 hmWdeI8AZN5bt9MqTYywEaPuYO4tnj9CIBfaBYpiYK 2VXysKxH8tMuR1U4AcqjN7WUU7N1QhvMFdef5SzUG6MSPgX37oFZ7JDA4avXulCJqrLd8KQuQ5khNmsF 0KeJxtkDELgzAQhXfB/0CsJ9MZWmrG2CQLFxcoaZTIjxJVwYGzn5+WVeJ6I5C58293XdjvJNvyRaXDPr yQmksIaLosAUSgkalioIxBmhJusQBKIshJdTclxbUZ MVn1qlsbwN8UMDf/gGOyzPe+G0IObYSVilDHaLyJzMglBKGYDB2/mtMIQhjgkXPjoYAc6ECRcnuiKT8A vi0eNG6SlQeva+EH0IyexMsrtLzyYK6wqKU9R1v4P/Tu4YGF894VBO7EPBexnxAllAJwZX8GAbDcDB4r jw6OVSvxNOUkGpdPVgj0U0Ydh3D7L9BzUE1/AE0AaQ NvYYMGuxPaJN2MDrA9QU1EVBCCGIRRHzGsYHVEAEZdZRgKukDvPBNKERSfYYDPASI3NO4RekOkfI4sBI 7/HI6FaGMmARWYggIeWD8FYiG3YR9MAHNEEPCDFkPuOXMJPAAtKVyHoqFeHZDWUEJiAWTIIHI6XZ8Gia SogHihyvTtwEPeBOtgWYNqSUBvJHZbNRDzKlgeA66j VTXmnGLlLMyhANHrVPVeNBNzKNJmYfiqXc7FUySzWB8wqb3LHQteCNSvGhwCRlvdXmTkHEHOLsLuCY8q hp9DPkXlSOTxOorZFxxvSxEfQCZOKuGsFW1lww6VLbTgQDCkTbwNUbe7L7G3sORbTLCqFx1MmKvhAWCw Z3btCENdWVOgOMNtAr6siEEtDQJxLy4FkdAzKVX5WC AdMx0ANEr8UKYWA7X0WBNBAKjeIGx6FSJ3W8UFBHOXIvPWNZI8Ttn+MRT8FSKEQ0AaVVJ5MyY4HDcFRm BEFmGeFhYuYDhPUOT6Yd2pY7JifUBmud0GrKC2GIHsK37dWU9JZJ9zpUtlGNa+Tg3Hi9JaMVToTNk4hT NgAIL//krUlKUMW4gllWHpuMBqUGSQpV6QKP3QYazU LWfMF6jlsHWlfRcHRIeeNMaUUjBHVZCUjkUMcAL2Ui/KOiSi2mGVylOfwNLgZeZFSFGhJLUFIdIrADM0 npSeeF4LSV1fb0XjJLj2mqTpSIeoHVKcHXrtBTBkHJHdODXrJRV6IIH7BVMCUxWpFYJyRAHdOUmyMPNi FHKpzt1OBTPlBDGgEJIuOKZiTOPsSOApAMhvFBXzGW DjKBweRWVoTVAgMZ8VJjHnSGOaKON2XAEwDKGgQGHxys9YCFRqUWJgQJelTXYrRUKiDEGkJFpuCVPrLF FiCSYzFVDaVIMnMJ0EOkCcTNAaXSXxEPOcMFOnHPWiux3QPHTjKVMsUXHzWsKuDXDwJIUiNGgxZNBbXT KtKKG8TFBoOYUlSE3LXtVtNZPcGXMsIFMuVpA3GuIf Ec9IMFMlSYAhEJHxCzC7KXLcERXiVKokLTGoLAWzPKLrBZK9QFY0BENKHgSnZBJqYBJhGJGuTgK6SeRn Oz0VLAJdNLPaWKIoCTG1UDNkOZGaIZxaEDNcGNLeOLW5YFR1FWS3MSHIVjFuREFyHIYgPHmjObK5ZvPa Qk1EXUOnGWWjRAJiKZI3HCNuJRKaCWxtBQZyPqTqTC BpWTRtNZLfHR5GNzRcJCUpZdBiFpDsLEXbTLJsdu0XFGEeMAKrMNZ5JbOcJBDlNSAvVNpyJNQfTiKiGz sfHIHcGGFvIY2CJoVjQBkoOOYBMtu2P2MrkuOfTmXoMz9wsJPdXIIwNh8EsuGbYYZ3AURuNi7RWMx8QP XNI2Z0OUKIISrjLFp6DUP8G8RYOWHEBiILLAC4Tiv+ MLA8ZQQXZ9WfEIT6YjI3QMaNFdVJLbIsOzYrFGsMGNZ7Fu9pZd2UZyF3VIO8aYBjVk6XGbQrVVG1JJzc WVAOTq9SwEOmRu8GEOZkIHu3fmIlxLQrCXz7FM4YsDyoUHXcQ4Qlz0OlACLgBCIzTA4etqHbABIcVNRf XDNsPVT0FDKFJ6QwFAN4BvR2RPrEVdREOtRqKqMvAI aFHGZ6JsllXJKwOBvAR9S5MZAkEjT7DCBWJDRuPLQ4MfY3YrJiJD0hKV5BhuN1PWHfDXM0Wz6KYbVrS3 KbHWFjEQI5WJ0+YMklcVGsrGzyGJFIJgVqMdS2NV4JGYMNR4O= ID Date Data Source "" 07/04/2020 08:04:00 [place] [address] Patient Name: Amy Carranza Exam Date: 07/04/20 : 1995 CC: EKG/ECG in ED Ordering Doctor: Janett Kim MD Attending Doctor: Janett Kim MD CC: EKG/ECG in ED APPROVED REPORT ECG MEASUREMENT Heart Rate 101 AXES PA 149 P 52 QRSd 97 QRS 67 QT 326 T 46 QTc 384 INTERPRETATION SINUS TACHYCARDIA INCOMPLETE RIGHT BUNDLE BRANCH BLOCK [90+ ms QRS DURATION, TERMINAL R IN V1/V2, 40+ ms S IN I/aVL/V4/V5/V6] NO ACUTE CHANGES ABNORMAL RHYTHM ECG <Conclusion> SINUS TACHYCARDIA INCOMPLETE RIGHT BUNDLE BRANCH BLOCK [90+ ms QRS DURATION, TERMINAL R IN V1/V2, 40+ ms S IN I/aVL/V4/V5/V6] NO ACUTE CHANGES ABNORMAL RHYTHM ECG End of diagnostic report for accession: [id number] Interpreted: Janett Kim MD 07/04/202003 Transcribed: Signed: Janett Kim MD 07/04/202003 Interpreted by: Janett KimTranscribed by: [place] [address] Patient Name: Amy Carranza Exam Date: 05/26/20 : 1995 Ordering Doctor: Kate Dubon NP Attending Doctor: Candice Arrieta MD CC: AP pelvis and left hip two views INDICATION: Pain after fall COMPARISON: CT abdomen and pelvis 04/25/2019 FINDINGS: The bilateral femoroacetabular, bilateral sacroiliac, and pubic symphysis joint spaces are maintained. No acute fracture is seen. No dislocation. IMPRESSION: No acute fracture. K8 End of diagnostic report: [id number] Signed: Wisam Wilkerson MD 05/26/20 1704 Interpreted by: Wisam WilkersonTranscribed by: Wisam Wilkerson Name Value Range Interpretation Code Description Data Sudha rce(s) Supporting Document(s) ID Date Data Source "" 05/26/2020 04:48:00 [place] [address] Patient Name: Amy Carranza Exam Date: 07/04/20 : 1995 CC: EKG/ECG in ED Ordering Doctor: Janett Kim MD Attending Doctor: Janett Kim MD CC: EKG/ECG in ED APPROVED REPORT ECG MEASUREMENT Heart Rate 101 AXES PA 149 P 52 QRSd 97 QRS 67 QT 326 T 46 QTc 384 INTERPRETATION SINUS TACHYCARDIA INCOMPLETE RIGHT BUNDLE BRANCH BLOCK [90+ ms QRS DURATION, TERMINAL R IN V1/V2, 40+ ms S IN I/aVL/V4/V5/V6] NO ACUTE CHANGES ABNORMAL RHYTHM ECG <Conclusion> SINUS TACHYCARDIA INCOMPLETE RIGHT BUNDLE BRANCH BLOCK [90+ ms QRS DURATION, TERMINAL R IN V1/V2, 40+ ms S IN I/aVL/V4/V5/V6] NO ACUTE CHANGES ABNORMAL RHYTHM ECG End of diagnostic report for accession: [id number] Interpreted: Janett Kim MD 07/04/202003 Transcribed: Signed: Janett Kim MD 07/04/202003 Interpreted by: Janett KimTranscribed by: Janett Kim [place] [id number] Patient Name: Amy Carranza Exam Date: 05/26/20 : 1995 Ordering Doctor: Kate Dubon NP Attending Doctor: Candice Arrieta MD CC: AP pelvis and left hip two views INDICATION: Pain after fall COMPARISON: CT abdomen and pelvis 04/25/2019 FINDINGS: The bilateral femoroacetabular, bilateral sacroiliac, and pubic symphysis joint spaces are maintained. No acute fracture is seen. No dislocation. IMPRESSION: No acute fracture. K8 End of diagnostic report: [id number] Signed: Wisam Wilkerson MD 05/26/20 1704 Interpreted by: Wisam WilkersonTranscribed by: Wisam Wilkerson Name Value Range Interpretation Code Description Data Sudha e(s) Supporting Document(s) ID Date Data Source [id number] 07/04/2020 08:24:00 PM EST [facility] Run: 07/06/20 0804 INTERFACED REPORT Name: GangaAmy M Age/Sex: 25/F Location: ED Acct: [id number] Unit: [id number] Status: [facility] Room/Bed: Re07/04/20 Disch: Att Dr: Janett Kim MD Specimen #: [id number] Ordered : 07/04/20 Collected : 07/04/20 By: JORGE LUIS Received: 07/04/20 By: NAHOMY Source: URINE CC Specimen Description: Procedure Result - COLONY COUNT Final COLONY COUNT 2,000 CFU/ML URINE CULTURE Final NO SIGNIFICANT GROWTH <18 HOURS NO SIGNIFICANT GROWTH 42 HOURS URINE CULTURE Preliminary (Corrected) NO SIGNIFICANT GROWTH <18 HOURS END OF REPORT Name Value Range Interpretation Code Description Data Sudha rce(s) Supporting Document(s) COLOR,UR YELLOW YELLOW [facility] APPEARANCE,UR SL CLOUDY CLEAR [facility] PH,UR 5.0 5.0-8.0 [facility] SPECIFIC GRAVITY,UR 1.026 1.002-1.035 N [facility] PROTEIN,UR NEGATIVE MG/DL NEGATIVE [facility] GLUCOSE, UR NEGATIVE MG/DL NEGATIVE [facility] KETONES,UR NEGATIVE MG/DL NEGATIVE [facility] OCCULT BLOOD,UR MODERATE NEGATIVE A [facility] NITRATE,UR NEGATIVE NEGATIVE [facility] LEUKOCYTE ESTERASE ,UR TRACE NEGATIVE A [facility] BILIRUBIN,UR NEGATIVE NEGATIVE [facility] UROBILINOGEN,UR 0.2-1.0 EU MG/DL NEG-0-1.0 [facility] RBC,UR 3-9 PER HPF 0-2 A [facility] WBC,UR 10-24 PER HPF <5 A [facility] BACTERIA,UR RARE PER HPF NONE [facility] MUCUS,UR FEW PER HPF NONE SEEN [facility] ID Date Data Source [id number] 07/06/2020 08:03:00 AM EST [facility] Run: 07/06/20 0804 INTERFACED REPORT Name: GangaAmy M Age/Sex: 25/F Location: ED Acct: [id number] Unit: [id number] Status: DEP ER Room/Bed: Re07/04/20 Disch: Att Dr: Janett Kim MD Specimen #: [id number] Ordered : 07/04/20 Collected : 07/04/20 By: JORGE LUIS Received: 07/04/20 By: NAHOMY Source: URINE CC Specimen Description: Procedure Result - COLONY COUNT Final COLONY COUNT 2,000 CFU/ML URINE CULTURE Final NO SIGNIFICANT GROWTH <18 HOURS NO SIGNIFICANT GROWTH 42 HOURS URINE CULTURE Preliminary (Corrected) NO SIGNIFICANT GROWTH <18 HOURS END OF REPORT Name Value Range Interpretation Code Description Data Sudha rce(s) Supporting Document(s) ID Date Data Source [id number] 07/04/2020 07:50:00 [place] [address] HEALTH INFORMATION MANAGEMENT ED/ Physician Report : [id number] Signed Patient: Amy Carranza Acct:[id number] Unit : [id number] : 1995 Arrival Date: 07/04/20 Age/Sex: 25 / F Arrival Time: 1921 Copies to: Harriet Marie DO Syncope HPI/ROS General Chief Complaint: Syncope/Near Syncope Stated Complaint: Syncope Stated Complaint: Syncope Source: Patient, EMS, Old records reviewed, RN/MD, RN notes reviewed and I have reviewed available Ancillary/nursing staff documentation Mode of arrival: EMS Limitations: Reports No limitations History of Present Illness Initial Comments: PATIENT HAS LONG PSYCH HISTORY COMPLICATED WITH INTERMITTENT EPISODES OF SYNCOPE. ABOUT 3 HOURS AGO, SHE HAD ANOTHER SYNCOPE WHILE COOKING DINNER. NO CHEST PAIN. NO BLURRED VISION. NO HEAD TRAUMA. NO PALPITATION. NO SIGNS OR SYMPTOMS SUGGESTIVE OF CVA OR SEIZURE ACTIVITY. SHE DECIDED TO COME TO THE EMERGENCY ROOM FOR EVALUATION. SHE DENIES ANY COMPLAINTS AT THIS TIME. Time interval: Hour(s) Prodromal Symptoms: Reports None Description of Event: Denies CPR performed, Focal shaking, Incontinence, Lost pulse, Post-event confusion, Stopped breathing and Tonic- clonic movements Duration Interval: Reports Second(s) Witnessed: Reports No Injuries Sustained associated with Event: Reports None Current Symptoms: Reports None History: Reports Previous syncopal episode; Denies Seizure disorder Context: Reports Getting out of bed and Standing up; Denies Alcohol u se, After urination, At rest, During exertion, Illicit drug use, Medication non- compliance, New medication, Recent illness and Related to severe pain Treatments Prior to Arrival: Reports None Related Data LMP (females 10-50): This week On Hormonal Control: Yes Home Medications Medication Instructions Recorded pantoprazole [Protonix] 40 mg PO DAILY 02/22/20 quetiapine [Seroquel] 50 mg PO DAILY 02/22/20 cholecalciferol (vitamin D3) 2,000 unit PO DAILY #30 tab 02/28/20 [Vitamin D3] escitalopram oxalate [Lexapro] 15 mg PO DAILY 05/26/20 Allergies Penicillins Allergy (Verified 06/15/20 21:06) ADDITIONAL UNSPECIFIED Review of Systems Review of Systems All systems: Reviewed and negative except as stated in HPI. Musculoskeletal: Reports Arthalgia Psychiatric: Reports Anxiety and Depression; Denies Homicidal and Suicidal Immunizations Immunizations Up to Date: Yes Tetanus Status: Up to Date Social History Social History Other: 25-year-old female currently on disability, living with her Aunt History of Smoking/Tobacco Use: Never Smoker Alcohol use: Reports None Drug use: Reports None Occupation: On [employer] Lives with: Reports Alone PMH/PSH PMH/PSH Medical History Anxiety Depression Seizure disorder Surgical History No pertinent past surgical history (Surgical) Family History Paternal Grandfather No problems noted. Paternal Grandmother Stroke Physical Exam Physical Exam Physical Exam: HEENT: PERRLA. MUCOSA MOIST. NO PALLOR, NO CYANOSIS, NO JAUNDICE, JVD FLAT, NO FACIAL ASYMMETRY, NO CAROTID BRUITS. EAR/THROAT/SINUS WNL. NECK SUPPLE. NO THYROMEGALY. CHEST: CLEAR, NO RALES, NO RHONCHI, NO RUBS. HEART: REGULAR, NO GALLOP OR MURMUR. ABD: LAX, NO RIGIDITY OR TENDERNESS. NO MASSES.+BS. EXT: NO EDEMA OR CLUBBING OR TREMORS. TUB WASHER: A/OX3, GROSSLY INTACT. SKIN: DRY, NO RASH, NO OTHER SIGNIFICANT LESIONS. Course Vital Signs Vital signs: Vital Signs 07/04/20 19:44 Temperature 98.3 F Pulse Rate 92 Respiratory Rate 16 Blood Pressure 127/69 O2 Sat by Pulse Oximetry 98 Medical Decision Making/CCT EKG Interpretation Complete If EKG was done has it been read?: Yes Lab Data Lab Data Labs reviewed: Yes Medical Decision Making Medical Decision Making: PATIENT WITH HISTORY OF RECURRENT SYNCOPE AND HERE FOR EVALUATION. WORKUP IS IN ORDER TO RULE OUT ANY ACUTE ETIOLOGY. Critical Care Time Critical Care Time: No Discharge Plan Disposition Clinical Impression: Recurrent syncope Provider stated Dispo: Discharged Condition: Stable Instructions: Syncope (ED) Activity Restrictions/Additional Instructions: TAKE ANY MEDS GIVEN DIRECTED AND FOLLOW UP WITH YOUR DOCTOR IN THE AM TOMORROW. COME BACK TO THE EMERGENCY ROOM SOONER IF NOT ANY BETTER. Prescriptions: No Action pantoprazole [Protonix] 40 mg tablet,delayed release (DR/EC) 40 mg PO DAILY RF: 0 quetiapine [Seroquel] 50 mg tablet 50 mg PO DAILY RF: 0 cholecalciferol (vitamin D3) [Vitamin D3] 25 mcg (1,000 unit) Tablet 2,000 unit PO DAILY Qty: 30 RF: 0 escitalopram oxalate [Lexapro] 10 mg tablet 15 mg PO DAILY RF: 0 Referrals: Harriet Marie DO [Primary Care Provider] - Stand Alone Forms: Portal Instructions Provider in triage note Vital Signs Vital Signs: I O (Last 24 Hours) 07/02/20 07/03/20 07/04/20 23:59 23:59 23:59 Other: Weight 95 kg Vital Signs (Last 8 Hours) Temp Pulse Resp BP Pulse Ox 07/04/20 19:44 98.3 F 92 16 127/69 98 Date/Time <<Signature on File>> Initializing User: Janett Kim MD 07/04/20 1950 Signed by: Janett Kim MD 07/05/20 0039 Name Value Range Interpretation Code Description Data Sudha rce(s) Supporting Document(s) ID Date Data Source [id number] 07/04/2020 08:13:00 PM EST [facility] Name Value Range Interpretation Code Description Data Sudha rce(s) Supporting Document(s) HCG QUALITATIVE SPECIMEN URINE [facility] ID Date Data Source [id number] 07/04/2020 08:13:00 PM EST [facility] Name Value Range Interpretation Code Description Data Sudha rce(s) Supporting Document(s) HCG RESULT,U NEGATIVE [facility] Reference range is Negative To ensure best sensitivity, first morning void is recommended. Dilute, low specific gravity urine may give a falsely negative result. If is suspected, repeat testing with a new specimen 48-72 hours later. ID Date Data Source [id number] 06/26/2020 02:39:00 PM EST [facility]) Name Value Range Interpretation Code Description Data Sudha rce(s) Supporting Document(s) Reported Physicians See Note Reported Physicians [facility] ([facility]) Note: Reported Physicians:Ordering: Aura StylesAttending: Aura Roa ID Date Data Source [id number] 06/26/2020 02:39:00 PM EST [facility]) Name Value Range Interpretation Code Description Data Sudha rce(s) Supporting Document(s) KIRIT BY DNA PROBE NEGATIVE KIRIT BY DNA PROB E [facility] ([facility]) Note: Responsible Observer: KIRIT BY D NA KIRIT BY DNA PROBE 500.3050 (A) GARDNERELLA BY DNA PROBE NEGATIVE GARDNERELLA BY DNA PROBE [facility] ([facility]) Note: Responsible Observer: GARDNERELLA GARDNERELLA BY DNA PROBE 500.3075 (A) TRICHOMONAS BY DNA PROBE NEGATIVE TRICHOMONAS BY DNA PROBE [facility] ([facility]) Note: TESTING PERFORMED BY NUCLEIC ACID HYBRIDIZATIONResponsible Observer: TRICHOMONAS TRICHOMONAS BY DNA PROBE 500.3100 (A) ID Date Data Source [id number] 06/26/2020 10:23:00 PM EST [facility] Name Value Range Interpretation Code Description Data Sudha rce(s) Supporting Document(s) KIRIT BY DNA PROBE NEGATIVE NEGATIVE [facility] GARDNERELLA BY DNA PROBE NEGATIVE NEGATIVE [facility] TRICHOMONAS BY DNA PROBE NEGATIVE NEGATIVE [facility] TESTING PERFORMED BY NUCLEIC ACID VIVIAN ECHOLSZATION ID Date Data Source [id number] 06/20/2020 05:46:00 [place] [address] HEALTH INFORMATION MANAGEMENT ED/UC Physician Report : [id number] Signed Patient: Amy Carranza Acct:[id number] Unit : [id number] : 1995 Arrival Date: 06/20/20 Age/Sex: 25 / F Arrival Time: 1738 Copies to: Harriet Marie DO Lower Ext Problem HPI/ROS General Chief Complaint: Knee Pain Stated Complaint: Physical Exam Source: Patient Mode of arrival: EMS Limitations: Reports No limitations History of Present Illness Initial Comments: 25-year-old female patient presenting to the ER with complaint of right knee pain. Patient states she slipped and fell on the ice landing on her knee. Patient states she has been able to ambulate after the injury. She denies use of any [id number] medications for pain priorto coming to the ER. Patient states she had no head or neck injury. Related Data Last Menstrual Period: 06/03 Home Medications Medication Instructions Recorded pantoprazole [Protonix] 40 mg PO DAILY 02/22/20 quetiapine [Seroquel] 50 mg PO DAILY 02/22/20 cholecalciferol (vitamin D3) 2,000 unit PO DAILY #30 tab 02/28/20 [Vitamin D3] escitalopram oxalate [Lexapro] 15 mg PO DAILY 05/26/20 Allergies Penicillins Allergy (Verified 06/15/20 21:06) ADDITIONAL UNSPECIFIED Review of Systems Review of Systems All systems: Reviewed and negative except as stated in HPI. Social History Social History Other: 25-year-old female currently on disability, living with her Aunt History of Smoking/Tobacco Use: Never Smoker Alcohol use: Reports None Drug use: Reports None Occupation: On [employer] Lives with: Reports Alone PMH/PSH Medical History (Updated 06/20/20 @ 17:47 by LEDA Ambrose) Anxiety Depression Seizure disorder Surgical History No pertinent past surgical history (Surgical) Family History Paternal Grandfather No problems noted. Paternal Grandmother Stroke Physical Exam Physical Exam General appearance: Alert and In no apparent distress Head Head Exam: Atraumatic Neck Neck Exam: Full ROM Cardiac Cardiac: Present: Regular rate and rhythm and Radial pulses normal equal Lung/Chest Lung/Chest Exam: Clear and Normal Exchange Back Back Exam: Full ROM Lower Extremity Lower Extremity: Right knee: No edema erythema noted. Small area ecchymosis. Patient has no tenderness noted with palpation. Full range of motion with both flexion and extension. Positive pedal pulses. Cap refill less than 3. Good sensation is noted. Neuro Neuro Normal: Alert, Oriented x 3, Sensory normal and Strength 5/5 all extremities Psych Psych Normal: Normal Affect Skin Skin exam: Dry, Intact, Adwolf and Warm Course Course Course Narrative: Patient ambulated around the department without pain or difficulty Vital Signs Vital signs: Vital Signs 06/20/20 17:43 Temperature 98.5 F Pulse Rate 98 Respiratory Rate 16 Blood Pressure 136/95 H O2 Sat by Pulse Oximetry 98 Medical Decision Making/CCT Medical Decision Making Medical Decision Makin-year-old female patient presenting to the ER with complaint of right knee pain after a fall. On exam patient has a small area of ecchymosis. She has no tenderness with palpation. Patient has full range of motion with full flexion and extension. She has no pain with movement. Patient has been ambulated around the department without difficulty. Discussed imaging studies with patient. I do not feel this is indicated at this time as she has no point tenderness and has no limitations in her movement. Discussed with patient that she can be given Tylenol. She is requesting Medicaid transport home. Patient has been given instructions to follow-up with her primary care doctor. She is able to verbalize understanding. Discharge Plan Disposition Clinical Impression: Knee pain, acute Qualifiers: Laterality: right Qualified Code(s): M25.561 - Pain in right knee Provider stated Dispo: Discharged Condition: Stable Instructions: Knee Pain (ED) Activity Restrictions/Additional Instructions: Ice and elevate your knee. Use Tylenol as needed for pain. Follow up with her primary care doctor in 1-2 days. For any worsening symptoms return to the ER for re-evaluation. Prescriptions: No Action pantoprazole [Protonix] 40 mg tablet,delayed release (DR/EC) 40 mg PO DAILY RF: 0 quetiapine [Seroquel] 50 mg tablet 50 mg PO DAILY RF: 0 cholecalciferol (vitamin D3) [Vitamin D3] 25 mcg (1,000 unit) Tablet 2,000 unit PO DAILY Qty: 30 RF: 0 escitalopram oxalate [Lexapro] 10 mg tablet 15 mg PO DAILY RF: 0 Referrals: Harriet Marie DO [Primary Care Provider] - 1 day Stand Alone Forms: Portal Instructions Provider in triage note Vital Signs Vital Signs: I O (Last 24 Hours) 06/18/20 06/19/20 06/20/20 23:59 23:59 23:59 Other: Weight 118 kg Vital Signs (Last 8 Hours) Temp Pulse Resp BP Pulse Ox 06/20/20 17:43 98.5 F 98 16 136/95 H 98 Date/Time <<Signature on File>> Initializing User: Darlene TOMPKINS 06/20/20 1746 Signed by: Darlene Winslow 06/20/20 1756 Rob Yuen DO 06/20/20 1822 Name Value Range Interpretation Code Description Data Sudha rce(s) Supporting Document(s) ID Date Data Source [id number] 06/15/2020 09:09:00 [place] [address] HEALTH INFORMATION MANAGEMENT ED/UC Physician Report : [id number] Signed Patient: Amy Carranza Acct:[id number] Unit : [id number] : 1995 Arrival Date: 06/15/20 Age/Sex: 25 / F Arrival Time: 2101 Copies to: Harriet Marie DO General Adult HPI/ROS General Chief Complaint: Physical Examination Stated Complaint: Does Not Feel Good Source: Patient Mode of arrival: Ambulatory Limitations: Reports No limitations History of Present Illness Initial Comments: 25-year-old female patient presenting to the ER for evaluation after arguing with her family. Patient states she just was not feeling well. Upon arrival to ER she is feeling fine. She states that she prefers to go home. She denies any fevers chills cough shortness of breath nausea vomiting diarrhea abdominal pain. Related Data Home Medications Medication Instructions Recorded pantoprazole [Protonix] 40 mg PO DAILY 02/22/20 quetiapine [Seroquel] 50 mg PO DAILY 02/22/20 cholecalciferol (vitamin D3) 2,000 unit PO DAILY #30 tab 02/28/20 [Vitamin D3] escitalopram oxalate [Lexapro] 15 mg PO DAILY 05/26/20 Allergies Penicillins Allergy (Verified 06/15/20 21:06) ADDITIONAL UNSPECIFIED Review of Systems Review of Systems All systems: Reviewed and negative except as stated in HPI. Social History Social History Other: 25-year-old female currently on disability, living with her Aunt History of Smoking/Tobacco Use: Never Smoker Alcohol use: Reports None Drug use: Reports None Occupation: On [employer] Lives with: Reports Alone PMH/PSH Medical History (Updated 06/15/20 @ 21:12 by LEDA Ambrose) Anxiety Depression Seizure disorder Surgical History No pertinent past surgical history (Surgical) Family History Paternal Grandfather No problems noted. Paternal Grandmother Stroke Physical Exam Physical Exam General appearance: Alert and In no apparent distress Head Head Exam: Atraumatic ENT ENT Exam: Throat normal, Tympanic membrane normal and Tonsil normal Neck Neck Exam: Full ROM Cardiac Cardiac: Present: Regular rate and rhythm and Radial pulses normal equal Lung/Chest Lung/Chest Exam: Clear and Normal Exchange Abdomen Abdominal Exam: Bowel sounds normal, Soft, Nondistended and Nontender Neuro Neuro Normal: Alert, Oriented x 3, Sensory normal and Strength 5/5 all extremities Psych Psych Normal: Normal Affect Psych Abnormal: negative Anxiety and Depression Skin Skin exam: Dry, Intact, Adwolf and Warm Course Vital Signs Vital signs: Vital Signs 06/15/20 21:06 Temperature 98 F Pulse Rate 96 Respiratory Rate 18 Blood Pressure 128/70 O2 Sat by Pulse Oximetry 99 Discharge Plan Disposition Clinical Impression: Encounter for medical screening examination Provider stated Dispo: Discharged Condition: Stable Activity Restrictions/Additional Instructions: Increased fluids and rest. Follow-up with primary care doctor in 2-3 days. For any worsening symptoms return to the ER for re-evaluation. Prescriptions: No Action pantoprazole [Protonix] 40 mg tablet,delayed release (DR/EC) 40 mg PO DAILY RF: 0 quetiapine [Seroquel] 50 mg tablet 50 mg PO DAILY RF: 0 cholecalciferol (vitamin D3) [Vitamin D3] 25 mcg (1,000 unit) Tablet 2,000 unit PO DAILY Qty: 30 RF: 0 escitalopram oxalate [Lexapro] 10 mg tablet 15 mg PO DAILY RF: 0 Referrals: Harriet Marie DO [Primary Care Provider] - Stand Alone Forms: Portal Instructions Provider in triage note Vital Signs Vital Signs: I O (Last 24 Hours) 06/13/20 06/14/20 06/15/20 23:59 23:59 23:59 Other: Weight 120 kg Vital Signs (Last 8 Hours) Temp Pulse Resp BP Pulse Ox 06/15/20 21:06 98 F 96 18 128/70 99 Date/Time <<Signature on File>> Initializing User: Darlene Winslow [facility] 06/15/202108 Signed by: Darlene Winslow [employer] 06/15/20 221 Janett Kim MD 06/15/20 2251 Name Value Range Interpretation Code Description Data Sudha rce(s) Supporting Document(s) ID Date Data Source [id number] 05/26/2020 04:50:[address] [address] HEALTH INFORMATION MANAGEMENT ED/UC Physician Report : [id number] Signed Patient: Amy Carranza Acct:[id number] Unit : [id number] : 1995 Arrival Date: 05/26/20 Age/Sex: 25 / F Arrival Time: 1510 Copies to: Harriet Marie DO Trauma HPI/ROS General Chief Complaint: Minor Trauma/Adult Stated Complaint: Leg Pain Stated Complaint: Leg Pain Source: Patient and I have reviewed available Ancillary/nursing staff documentation Mode of arrival: Ambulatory Limitations: Reports No limitations History of Present Illness Initial Comments: 25-year-old female presents today for evaluation of left leg pain after fall. Patient states that she tripped over her shoe and fell landing on her left thigh/left hip. She complains of left hip and thigh pain since the fall earlier today, that is exacerbated with weight-bearing and walking. Denies any paresthesias. Denies any other injuries. Denies any pre arrival treatment. Onset/Timin Time interval: Hour(s) Loss of Consciousness: Reports No Location - Extremities: Yes Duration: Reports Constant Mechanism of Injury: Reports Mechanical fall Associated Symptoms: Reports Denies other symptoms; Denies Back pain, Chest pain, Confusion, Difficulty breathing, Fever/chills, Shortness of breath, Visual disturbances and Weakness Related Data Last Menstrual Period: LAST MONTH Home Medications Medication Instructions Recorded pantoprazole [Proton ix] 40 mg PO DAILY 02/22/20 quetiapine [Seroquel] 50 mg PO DAILY 02/22/20 cholecalciferol (vitamin D3) 2,000 unit PO DAILY #30 tab 02/28/20 [Vitamin D3] escitalopram oxalate [Lexapro] 15 mg PO DAILY 05/26/20 Allergies Penicillins Allergy (Verified 05/26/20 15:57) ADDITIONAL UNSPECIFIED Review of Systems Review of Systems All systems: Reviewed and negative except as stated in HPI. General: Denies Fever Cardiac: Denies Chest pain and Palpitations Respiratory: Denies Cough and Shortness of Breath GI: Denies Pain, Nausea and Vomiting Neuro: Denies Headache Musculoskeletal: Reports Other (left hip and outer thigh pain); Denies Neck Pain and Back Pain Skin: Denies Bruising Immunizations Immunizations Up to Date: Yes Tetanus Status: Up to Date Social History Social History Other: 25-year-old female currently on disability, living with her Aunt History of Smoking/Tobacco Use: Never Smoker Alcohol use: Reports None Drug use: Reports None Occupation: On [employer] Lives with: Reports Alone PMH/PSH PMH/PSH Medical History Anxiety Depression Seizure disorder Surgical History No pertinent past surgical history (Surgical) Family History Paternal Grandfather No problems noted. Paternal Grandmother Stroke Physical Exam Physical Exam General appearance: Alert and In no apparent distress Head Head Exam: Atraumatic and Normcephalic Cardiac Cardiac: Present: Regular rate and rhythm Heart Sounds: Present: S1 and S2 Lung/Chest Lung/Chest Exam: Clear and Normal Exchange Abdomen Abdominal Exam: Bowel sounds normal, Soft and Nondistended Back Back Exam: Full ROM and No Deformity Lower Extremity Legs Front+Back: 1. Tenderness with palpation Psych Psych Normal: Normal Affect Skin Skin exam: Dry, Intact and Adwolf Course Vital Signs Vital signs: Vital Signs 05/26/20 15:29 Temperature 97.8 F Pulse Rate 90 Respiratory Rate 16 Blood Pressure 155/85 H O2 Sat by Pulse Oximetry 99 Medical Decision Making/CCT Lab Data Lab Data Labs reviewed: Yes Labs: Lab Results 05/26/20 Range/Units 16:16 Beta HCG, Qual NEGATIVE Type URINE Radiology Data Radiology Data Radiology results: report reviewed and image reviewed Radiology impressions: AP pelvis and left hip two viewsINDICATION: Pain after fallCOMPARISON: CT abdomen and pelvis 04/25/2019FINDINGS:The bilateral femoroacetabular, bilateral sacroiliac, and pubic symphysis joint spaces are maintained. No acute fracture is seen. No dislocation.IMPRESSION:No acute fracture. Discharge Plan Disposition Clinical Impression: Leg pain Qualifiers: Laterality: left Qualified Code (s): M79.605 - Pain in left leg Acute hip pain Qualifiers: Laterality: left Qualified Code(s): M25.552 - Pain in left hip Provider stated Dispo: Discharged Condition: Stable Activity Restrictions/Additional Instructions: As discussed, your x-ray was normal today. Continue using Tylenol/Motrin as needed, as directed for pain. Apply ice to the area several times throughout the day. Follow-up with your primary care physician as needed. Any worsening symptoms to be re-evaluated sooner. Prescriptions: No Action pantoprazole [Protonix] 40 mg tablet,delayed release (DR/EC) 40 mg PO DAILY RF: 0 quetiapine [Seroquel] 50 mg tablet 50 mg PO DAILY RF: 0 cholecalciferol (vitamin D3) [Vitamin D3] 25 mcg (1,000 unit) Tablet 2,000 unit PO DAILY Qty: 30 RF: 0 escitalopram oxalate [Lexapro] 10 mg tablet 15 mg PO DAILY RF: 0 Referrals: Harriet Marie DO [Primary Care Provider] - Patient agreeable to discharge: Patient/Guardian understands and is agreeable to discharge plan Provider in triage note Vital Signs Vital Signs: I O (Last 24 Hours) 05/24/20 05/25/20 05/26/20 23:59 23:59 23:59 Other: Weight 220 lb 7.396 oz Vital Signs (Last 8 Hours) Temp Pulse Resp BP Pulse Ox 05/26/20 15:29 97.8 F 90 16 155/85 H 99 Date/Time <<Signature on File>> Initializing User: Kate Dubon NP 05/26/20 1650 Signed by: Kate Dubon NP 05/26/20 2265 Candice Arrieta MD 05/26/20 1800 Name Value Range Interpretation Code Description Data Sudha rce(s) Supporting Document(s) ID Date Data Source [id number] 05/26/2020 04:39:00 PM EST [facility] Name Value Range Interpretation Code Description Data Sudha rce(s) Supporting Document(s) HCG QUALITATIVE SPECIMEN URINE [facility] ID Date Data Source [id number] 05/26/2020 04:39:00 PM EST [facility] Name Value Range Interpretation Code Description Data Sudha rce(s) Supporting Document(s) HCG RESULT,U NEGATIVE [facility] Reference range is Negative To ensure best sensitivity, first morning void is recommended. Dilute, low specific gravity urine may give a falsely negative result. If is suspected, repeat testing with a new specimen 48-72 hours later. ID Date Data Source [id number] 05/22/2020 01:54:00 PM EST [facility] Name Value Range Interpretation Code Description Data Sudha rce(s) Supporting Document(s) Reported Physicians See Note Reported Physicians [facility] ([facility]) Note: Reported Physicians:Ordering: Fariba NevarezAttending: Fariba Santana ID Date Data Source [id number] 05/22/2020 01:54:00 PM EST [facility]) Name Value Range Interpretation Code Description Data Sudha rce(s) Supporting Document(s) KIRIT BY DNA PROBE POSITIVE Abnormal (applies to non-numeric results) KIRIT BY DNA PROBE [facility] ([facility]) Note: Responsible Observer: KIRIT BY D NA KIRIT BY DNA PROBE 500.3050 (A) GARDNERELLA BY DNA PROBE POSITIVE Abnormal (applie s to non-numeric results) GARDNERELLA BY DNA PROBE [facility] ([facility]) Note: Responsible Observer: GARDNERELLA GARDNERELLA BY DNA PROBE 500.3075 (A) TRICHOMONAS BY DNA PROBE NEGATIVE TR[facility]OM[facility] BY DNA PROBE [facility] Note: TESTING PERFORMED BY NUCLEIC ACID HYBRIDIZATIONResponsible Observer: TRICHOMONAS TRICHOMONAS BY DNA PROBE 500.3100 (A) ID Date Data Source [id number] 05/22/2020 09:25:00 PM [facility] Name Value Range Interpretation Code Description Data Sudha rce(s) Supporting Document(s) KIRIT BY DNA PROBE POSITIVE NEGATIVE A [facility] GARDNERELLA BY DNA PROBE POSITIVE NEGATIVE A [facility] TRICHOMONAS BY DNA PROBE NEGATIVE NEGATIVE [facility] TESTING PERFORMED BY NUCLEIC ACID HYBRI DIZATION ID Date Data Source [id number] 05/18/2020 04:10:16 AM [facility] Name Value Range Interpretation Code Description Data Sudha rce(s) Supporting Document(s) ED Provider Note [facility] GSXTWv0pYwCAPsAg77/IPFtvLKUsz9ZrHFwuDHh7HNooRRFmN6BmMAS7lK1hGSB3FIwWPaSlEjTsTkM6 lbm [file] [id number] ID Date Data Source [id number] 05/18/2020 02:08:00 AM EST [facility] Name Value Range Interpretation Code Description Data Sudha rce(s) Supporting Document(s) SARS-CoV-2 RNA [facility] This lab was ordered by [facility] and reported by [facility]. ID Date Data Source [id number] 05/18/2020 02:45:17 PM [facility] Name Value Range Interpretation Code Description Data Sudha rce(s) Supporting Document(s) Specimen source [Identifier] of Unspecified specimen [facility] SARS-CoV-2 RNA 2018 nCoV Real-Time RT-PCR: NOT DETECTED [facility] Assay Performed [facility] Patients first test for [facility] Patient employed in healthcare setting [facility] Patient has symptoms related to [facility] When did you start to experience these symptoms [Date and time] [PhenX] [id number] [facility] Patient was hospitalized because of this condition [facility] patient was admitted to ICU for [facility] Patient resides in a congregate care setting [facility] status [facility] ID Date Data Source [id number] 05/18/2020 03:41:16 AM [facility] Service Cmnt XXX-Imp : NoneRespiratory P CR Panel : PCR ResultsMicroorganism XXX Cult : This assay does not detect novel Coronaviruses.HAdV DNA QI EDUARDO+non-probe : Not DetectedHCoV [id number] Nph QI EDUARDO+non-probe : Not DetectedHCoV JEY5SSY Nph QI EDUARDO+non-probe : Not EhxohzanZWeBQT14 RNA Nph QI EDUARDO+non-probe : Not OtbovapbFQwSEO31 RNA Upper resp QI EDUARDO+probe : Not DetectedhMPV RNA Nph QINAA+non-probe : Not DetectedRV+EV RNA Nph QI EDUARDO+non-probe : Not DetectedFLUAV RNA Nph QI EDUARDO+ non-probe : Not DetectedFLUBV RNA Nph QI EDUARDO+non-probe : Not DetectedHPIV1 RNA NphQINAA+non-probe : Not DetectedHPIV2 RNA Nph QINAA+non-probe : Not DetectedHPVI3 RNA Nph EDUARDO+non-probe : Not DetectedHPIV4 RNA Nph Q EDUARDO+non-probe : Not DetectedRSV RNA Nph Q EDUARDO+non-probe : Not DetectedB pert.PT PrmtNph Q EDUARDO+non-probe : Not DetectedC pneum DNA Nph Q EDUARDO+non-probe : Not DetectedM pneum DNA Nph Q EDUARDO+non-probe : Not Detected Name Value Range Interpretation Code Description Data Sudha rce(s) Supporting Document(s) ID Date Data Source [id number] 05/18/2020 01:09:03 AM [facility] XR CHEST FRONTAL ONLY [id number] RESULTI nterpreted by:LEYLA TreviñoROCEDURE INFORMATION: Exam: XR Chest, 1 View Exam date and time: 05/18/2020 1:02 AM Age: 25 years old Clinical indication: Chest pain; Additional info: SOB TECHNIQUE: Imaging protocol: XR of the chest Views: 1 view. COMPARISON: CR XR CHEST FRONTAL AND LATERAL [id number] 03/29/2020 7:34 PM FINDINGS: Lungs: Unremarkable. No consolidation. Pleural space: Unremarkable. No pleural effusion. No pneumothorax. Heart/Mediastinum: Unremarkable. No cardiomegaly. Bones/joints: There is stable mild scoliosis. IMPRESSION: 1. There is no focal a ir space disease. 2. No acute cardiopulmonary disease. THIS DOCUMENT HAS BEEN ELECTRONICALLY SIGNED BY YELITZA TOWNSEND MDThis document has been electronically signed by Yelitza Townsend MD on 05/18/2020 1:08 AM Name Value Range Interpretation Code Description Data Sudha rce(s) Supporting Document(s) ID Date Data Source [id number] 05/12/2020 08:23:03 PM [facility] Name Value Range Interpretation Code Description Data Sudha rce(s) Supporting Document(s) ED Provider Note [facility] ABTAOs6nBdZTRzZw67/EUZyrXJVwh0OeIPxnWNi2SLvoCTPkY5VxIPA9cW5dLCX5SZvKWiVnJeLgKBU3 lbm [file] [id number]MA8FZSb== ID Date Data Source [id number] 05/11/2020 01:22:[address] [facility] Name Value Range Interpretation Code Description Data Sudha rce(s) Supporting Document(s) ED Provider Note [facility] BJHUSo4uLxTZFtIk57/RRVwsXMVfi7OtZUmwUSu1RGuuECPyR2BuAOR0gS9zWUO8LJuDUwOdObLhOWL2 lbm [file] YWUbEKOsLJTtJrTvRV7SWh8RYnK9LVQ2nKCyWc5UEOJ2DhUFWoCqPB8AJQk= ID Date Data Source [id number] 05/09/2020 03:51:33 PM [facility] Name Value Range Interpretation Code Description Data Sudha rce(s) Supporting Document(s) Consultation [facility] SFVCHu6rDuSRSlFg55/HPFgwYFNxb6CfNEzpZAi5EOgcWYSsS4AwIFU0hK4xNMC0TLeZGmIvCdYoFXX2 lbm [file] ICAgICAgICAgICAgICAgICAgICAgICAgICAgICAgIC AgICAgICAgICAgICAgICAgICAgICAgICANCiAgICAgICAgICAgICAgICAgICAgICAgICAgICAgICAgIC AgICAgICAgICAgICAgICAgICAgICAgICAgICAgICAgICAgICAgICAgICAgICAgICAgICAgICAgICAgIC AgICAgICANCiAgICAgICAgICAgICAgICAgICAgICAg ICAgICAgICAgICAgICAgICAgICAgICAgICAgICAgICAgICAgICAgICAgICAgICAgICAgICAgICAgICAg ICAgICAgICAgICAgICAgICANCiAgICAgICAgICAgICAgICAgICAgICAgICAgICAgICAgICAgICAgICAg ICAgICAgICAgICAgICAgICAgICAgICAgICAgICAgIC AgICAgICAgICAgICAgICAgICAgICAgICAgICANCiAgICAgICAgICAgICAgICAgICAgICAgICAgICAgIC AgICAgICAgICAgICAgICAgICAgICAgICAgICAgICAgICAgICAgICAgICAgICAgICAgICAgICAgICAgIC AgICAgICAgICANCiAgICAgICAgICAgICAgICAgICAg ICAgICAgICAgICAgICAgICAgICAgICAgICAgICAgICAgICAgICAgICAgICAgICAgICAgICAgICAgICAg ICAgICAgICAgICAgICAgICAgICANCiAgICAgICAgICAgICAgICAgICAgICAgICAgICAgICAgICAgICAg ICAgICAgICAgICAgICAgICAgICAgICAgICAgICAgIC AgICAgICAgICAgICAgICAgICAgICAgICAgICAgICANCiAgICAgICAgICAgICAgICAgICAgICAgICAgIC AgICAgICAgICAgICAgICAgICAgICAgICAgICAgICAgICAgICAgICAgICAgICAgICAgICAgICAgICAgIC AgICAgICAgICAgICANCiAgICAgICAgICAgICAgICAg ICAgICAgICAgICAgICAgICAgICAgICAgICAgICAgICAgICAgICAgICAgICAgICAgICAgICAgICAgICAg ICAgICAgICAgICAgICAgICAgICAgICANCiAgICAgICAgICAgICAgICAgICAgICAgICAgICAgICAgICAg ICAgICAgICAgICAgICAgICAgICAgICAgICAgICAgIC AgICAgICAgICAgICAgICAgICAgICAgICAgICAgICAgICANCjw/tLPxC2hygJXkrdH7K6qcMx0KHq5KFL 6ar1NkWVWwAQczaaVxEtoRUyYqDUSzDifEPxu7DYjxMG8HlNJmO2TpP7QaVPdfHP5ZCVXbKZImdVOtLL JsLSDlJlB4QHPjDEpeLU4AoVGxECeuJQWqHYBwPaFc HTBuXD9LQUZkH035ifZgWs4ONg9OKjLrRU7xdz2DFHFvYLFpByvORpy8TBsyGL9GhAApjDNcBbGmQZDB RzPjT7dnx2WkIAuiHVVEKIjxIM8Fg9VtxEYsKTb+Ti8JBG3tp5JhZShrCjRhBT8dmz2AALjRHjKpE5Jv tNvbGSPnqhF7dLUlCOU5GVIdYX1sGEVKWQlxSVs5rX dxEE8YPnTpxVDlFQ1pOL4pTZMiWPObFnPoFVJANG0YOFWhQARdjOTnTNLnLHHFOQ1XAQavWDP2IXKchg LoePVtAPwiEQ7IWNEhpiOhGCLpWIBBCLk+Is7DBB1pv2OeGYpbRPJgUY2uis5SULgTYzUnX6T9bFLcE3 J0NQjvRr1TTDSyPRDpCZSxXWQNWSqpAM8BMN8rspF2 HT0XuONaMZKiGELcjJDxUNf7X32amTThTBbwIS7WIDI+Dulce+Cj1MMAChJRVcMDDeWcOjQKBUElQbE5Yb U6RQd8YzP1WyYZ56zSizsvPuJRdrEE4NEG0eLOYsZVMRTT6UvOJrtW7acfOkCzUsFLSERqDvR31zoBKf FRVpMTL4IGHzBa2GRJWwK4LqzfEyxFqoztJhPZQmOJ GOZM7CZOsfciKazMFktLneTV36mTjsFT4NTo8HCeWqSU4yao7RbGVgQi8XJLGlRT8HWBEsRPXgXGUaEB H9PIJmPgZvYEycYJRaELEuKCD5YBYuCICaIY3NDmFwDDPvXEv8OBadZANfDCOtbv3GQLEjHDBkXNEnVO PmTOAkAEHhALubEIZoIXQnXIB8PWLbYETwPE5RLkJv GUEsEFI3CySyZAGuTINahd6UDXCmIGPyLgn3PRIwADRkRFJjEEeqQGHbDPC7Rxd2UDLzZYTdRJ7YIzDw QKPdWKW4SBsqLJUrIHOwmx3LFGXnLJUrTSc9QXPxWIHfRXKjFSkjWDBwLOA4JVU1OXNfDSDwGG3CGlSc FJSeZWEmEhHdRQShJXLiir1XDLAnOJRhBvH2HCWtKX UaHPAuZZhqADNfQGG0Gou6PKOdUWTtHE3LDnXlKKMaWDf4WcQxLKMgFMRxih0HPPJeTJOpLjg4SSNfUO RhVGBmCSngEXZzONN0WYIqGFWsECEcAJ3WZdQoHJSaLMw6UVPlEEUoLUWkcw8TTRCwSBGnXPB4RPMaVA DzIAIkMLv7eyAfmAAvYRc2OM5WQ3AdbvDuRWfDUr9B n735ZNQ3OVLwZe6UU9gjFl7bHEFpLMPMHa7QHGd7SVm5IcO1EmFwDxW8NuW7MkxpJYL7QlQmMsGmBRP6 ZTI+GUrgRZNjJZGsSmRdUEFyHMHnY5PrEti8DSBhRZS5KHetXj0qZJJYBu4+DQpzdGFydHhyZWYNCjk4 VSAXPoXcUV0OSMx= ID Date Data Source [id number] 05/09/2020 02:00:25 PM [facility] Name Value Range Interpretation Code Description Data Sudha rce(s) Supporting Document(s) Choriogonadotropin ( test) [Presence] in Urine [facility] NEGATIVE: either no HCG or too low to de tect, <20 mU/mL Specific gravity of Urine by Refractometry 1.030 1.003-1.030 [facility] ID Date Data Source [id number] 05/09/2020 08:03:00 [place] [address] HEALTH INFORMATION MANAGEMENT ED/UC Physician Report : [id number] Signed Patient: Amy Carranza Acct:[id number] Unit : [id number] : 1995 Arrival Date: 05/09/20 Age/Sex: 25 / F Arrival Time: 0754 Copies to: Harriet Marie DO General Adult HPI/ROS General Chief Complaint: To Be Triaged Stated Complaint: Lower Back Pain Source: Patient Mode of arrival: EMS Limitations: Reports No limitations History of Present Illness Initial Comments: Patient presents the emergency room with an ache in her lower back. No history oftrauma. No flank pain. No urinary symptoms. No weakness. Able to ambulate normally. Called EMS to be evaluated at a hospital. Patient has chronic fecal incontinence. No new symptoms. The patient has not taken any analgesia. She did not call her primary care doctor. No prior history oflower back pain. Related Data Home Medications Medication Instructions Recorded pantoprazole 40 mg PO DAILY 02/22/20 quetiapine 50 mg PO DAILY 02/22/20 cholecalciferol (vitamin D3) 2,000 unit PO DAILY #30 tab 02/28/20 [Vitamin D3] escitalopram oxalate 15 mg PO DAILY #45 tab 02/28/20 Allergies Penicillins Allergy (Verified 05/04/20 15:28) ADDITIONAL UNSPECIFIED Review of Systems Review of Systems All systems: Reviewed and negative except as stated in HPI. GI: Reports Other (Chronic fecal incontinence) Musculoskeletal: Reports Back Pain Social History Social History Other: 25-year-old female currently on disability, living with her Aunt History of Smoking/Tobacco Use: Never Smoker Alcohol use: Reports None Drug use: Reports None Occupation: On [employer] Lives with: Reports Alone PMH/PSH PMH/PSH Medical History Anxiety Depression Seizure disorder Surgical History No pertinent past surgical history (Surgical) Family History Paternal Grandfather No problems noted. Paternal Grandmother Stroke Physical Exam Physical Exam General appearance: Alert, In no apparent distress and Obese Head Head Exam: Atraumatic and Normcephalic Eye Eye Exam: Conjunctiva normal and Sclera normal ENT ENT Exam: External ear normal and Nose normal Neck Neck Exam: Full ROM, Supple and Trachea Midline Cardiac Cardiac: Present: Regular rate and rhythm and Radial pulses normal equal Murmur: Present: None; Absent: Diastolic and Systolic Heart Sounds: Absent: Gallops and Rubs Lung/Chest Lung/Chest Exam: Clear, Normal Exchange and No chest wall tenderness Abdomen Abdominal: Dried feces on pants the patient is wearing. Abdominal Exam: Soft, Nondistended, Nontender and No guarding Back Back: Patient has a diffuse ache in the L5-S1 area in the midline. No sciatic radiation. No CVA pain. Abdomen soft. No guarding or rigidity. Able to straight leg raise. Sensation in feet normal. Back Exam: Full ROM, No Deformity and Skin Normal Upper Extremity Upper Extremity Exam: moving upper extremity with no deformities, swellings or pain. Full range ofmovement Vascular: capillary refill Lower Extremity Lower Extermity Normal: Full ROM and Nontender Neuro Neuro: No weakness. Ambulating normally. Normal straight leg raise. Neuro Normal: Alert, Oriented x 3, Fluent speech, Gait normal and Strength 5/5 all extremities Psych Psych Normal: Normal Affect Skin Skin exam: Dry, Intact, Adwolf and Warm Medical Decision Making/CCT EKG Interpretation Complete If EKG was done has it been read?: N/A Medical Decision Making Medical Decision Making Medical Decision Making: The patient's prior charts were reviewed. The patient is a frequent a tender in the emergency room. She is not contact her primary care doctor. There is no indication for x-rays at the current time. I do not suspect urinary tract infection. The patient is ambulating normally and has a normal gait. There is no signs of acute cord compression. The patient was given analgesia recommended to follow up with primary care. Critical Care Time Critical Care Time: No Discharge Plan Disposition Clinical Impression: Low back pain Qualifiers: Chronicity: acute Back pain laterality: midline Sciatica presence: without sciatica Qualified Code(s): M54.5 - Low back pain Provider stated Dispo: Discharged Instructions: Back Pain (ED) Prescriptions: No Action pantoprazole 40 mg tablet,delayed release (DR/EC) 40 mg PO DAILY RF: 0 quetiapine 50 mg tablet 50 mg PO DAILY RF: 0 escitalopram oxalate 10 mg Tablet 15 mg PO DAILY Qty: 45 RF: 0 cholecalciferol (vitamin D3) [Vitamin D3] 25 mcg (1,000 unit) Tablet 2,000 unit PO DAILY Qty: 30 RF: 0 Referrals: Harriet Marie DO [Primary Care Provider] - Patient agreeable to discharge: Patient/Guardian understands and is agreeable to discharge plan Date/Time <<Signature on File>> Initializing User: Fabian Bowen MD 05/09/20 0803 Signed by: Fabian Bowen MD 05/11/20 0710 Name Value Range Interpretation Code Description Data [facility] rce(s) Supporting Document(s) ID Date Data Source [id number] 05/01/2020 01:33:00 PM [facility] Name Value Range Interpretation Code Description Data [facility] rce(s) Supporting Document(s) Reported Physicians See Note Reported Physicians JOE ([facility]) Note: Reported Physicians:Ordering: Devaughn Friedmanending: Trang Enamorado ID Date Data Source [id number] 05/01/2020 01:33:00 PM [facility] Name Value Range Interpretation Code Description [facility] See Note Chris See Note Aries DIAZ ([facility]) Note: Run: 05/13/20 1329 INTERFACED REPORT Name: Amy Carranza Age/Sex: 25/F Location: [facility] Acct: [id number] Unit: [id number] Status: REG REF Room/Bed: Re05/01/20 Disch: Att Dr: Trang Enamorado Spec Num: [id number] Recd: 05/02/20 Status: COBY Zamarripa Num: [id number] SpType: CYTOLOGY Sub Dr: Trang Enamorado Specimen SubmittedThin Prep Image Guided Z12.72 : Screening vaginal pap smear CERVICAL, LMP 04/10/2020, LR 05/01/2020 Specimen Adequacy Satisfactory for evaluation Endocervical/transformation zone component present. General Categorization Negative for Intraepithelial Lesion or Malignancy Descriptive Diagnosis Fungal Elements Present Consistent with Kirit SP. Predominance of Bacteria Co nsistent with a Shift in Vaginal Pallavi. Specimen Identification Verified. Reviewing Faculty Physician PF HPV RESULTS Date Time Test Result [...] Reyna MD 05/13/20 1329 END OF REPORT ID Date Data Source [id number] 05/01/2020 01:33:00 PM EST [facility] Name Value Range Interpretation Code Description Data Sudha rce(s) Supporting Document(s) Reported Physicians See Note Reported Physicians JOE ([facility]) Note: Reported Physicians:Ordering: Trang FriedmanAttending: Trang Enamorado ID Date Data Source [id number] 05/01/2020 01:33:00 PM EST [facility] Name Value Range Interpretation Code Description Data Sudha rce(s) Supporting Document(s) KIRIT BY DNA PROBE NEGATIVE KIRIT BY DNA PROB E [facility]E ([employer]) Note: Responsible Observer: KIRIT BY D NA KIRIT BY DNA PROBE 500.3050 (A) GARDNERELLA BY DNA PROBE NEGATIVE GARDNERELLA BY DNA PROBE [facility] ([employer]) Note: Responsible Observer: GARDNERELLA GARDNERELLA BY DNA PROBE 500.3075 (A) TRICHOMONAS BY DNA PROBE NEGATIVE TRICHOMONAS BY DNA PROBE [facility]E ([facility]) Note: TESTING PERFORMED BY NUCLEIC ACID HYBRIDIZATIONResponsible Observer: TRICHOMONAS TRICHOMONAS BY DNA PROBE 500.3100 (A) ID Date Data Source [id number] 05/13/2020 01:29:00 PM [facility] Run: 05/13/20 1329 INTERFACED REPORT Name: Amy Carranza Age/Sex: 25/F Location: [facility] Acct: [id number] Unit: [id number] Status: REG REF Room/Bed: Re05/01/20 Disch: Att Dr: Trang Enamorado Spec Num: [id number] Recd: 05/02/20 Status: COBY Guevaratricia Num: [id number] SpType: CYTOLOGY Sub Dr: Trang Enamorado Specimen SubmittedThin Prep Image Guided Z12.72 : Screening vaginal pap smear CERVICAL, LMP 04/10/2020, LR 05/01/2020 Specimen Adequacy Satisfactory for evaluation Endocervical/transformation zone component present. General Categorization Negative for Intraepithelial Lesion or Malignancy Descriptive Diagnosis Fungal Elements Present Consistent with Kirit SP. Predominance of Bacteria Consistent with a Shift in Vaginal Pallavi. Specimen Identification Verified. Reviewing Faculty Physician PF HPV RESULTS Date Time Test Result [...] 68. Run: 05/13/20 1329 INTERFACED REPORT Signed Landno Reyna MD 05/13/20 1329 END OF REPORT Name Value Range Interpretation Code Description Data Sudha rce(s) Supporting Document(s) ID Date Data Source [id number] 05/02/2020 05:22:00 PM EST [facility] Name Value Range Interpretation Code Description Data Sudha rce(s) Supporting Document(s) KIRIT BY DNA PROBE NEGATIVE NEGATIVE [facility] GARDNERELLA BY DNA PROBE NEGATIVE NEGATIVE [facility] TRICHOMONAS BY DNA PROBE NEGATIVE NEGATIVE [facility] TESTING PERFORMED BY NUCLEIC ACID HYBRI DIZATION ID Date Data Source [id number] 04/25/2020 01:32:[address] [facility] Name Value Range Interpretation Code Description Data Sudha rce(s) Supporting Document(s) ED Provider Note [facility] BGZDLy4nOzSARvQb75/DPVqgOYPmw7IqSTrcJYp3VMvdWZVzZ4YrIOW4eL2uNVN3BSvXYfDlCbSsGZVs lbm [file] [id number]== ID Date Data Source [id number] 04/24/2020 03:16:00 [place] [address] HEALTH INFORMATION MANAGEMENT ED/UC Physician Report : [id number] Signed Patient: Amy Carranza Acct:[id number] Unit : [id number] : 1995 Arrival Date: 04/24/20 Age/Sex: 25 / F Arrival Time: 1430 Copies to: Harriet Marie DO Lower Ext Problem HPI/ROS General Chief Complaint: Knee Pain Stated Complaint: R Knee Pain Source: Patient Mode of arrival: Ambulatory Limitations: Reports No limitations History of Present Illness Initial Comments: 25-year-old female patient presenting to the ER with complaint of right knee pain. Patient states that she slipped and fell landing on her right knee a few days ago. She states thather pain is not improving. She does complain of swelling and ecchymosis. Patient states she is ambulatory on the knee however increases her pain. She denies any pre arrival treatment. Related Data Home Medications Medication Instructions Recorded pantoprazole 40 mg PO DAILY 02/22/20 quetiapine 50 mg PO DAILY 02/22/20 cholecalciferol (vitamin D3) 2,000 unit PO DAILY #30 tab 02/28/20 [Vitamin D3] escitalopram oxalate 15 mg PO DAILY #45 tab 02/28/20 Allergies Penicillins Allergy (Verified 04/24/20 14:34) ADDITIONAL UNSPECIFIED Review of Systems Review of Systems All systems: Reviewed and negative except as stated in HPI. Social History Social History Other: 25-year-old female currently on disability, living with her Aunt History of Smoking/Tobacco Use: Never Smoker Alcohol use: Reports None Drug use: Reports None Occupation: On [employer] Lives with: Reports Alone PMH/PSH Medical History (Updated 04/24/20 @ 15:47 by LEDA Ambrose) Anxiety Depression Seizure disorder Surgical History No pertinent past surgical history (Surgical) Family History Paternal Grandfather No problems noted. Paternal Grandmother Stroke Physical Exam Physical Exam General appearance: Alert and In no apparent distress Head Head Exam: Atraumatic Neck Neck Exam: Full ROM Cardiac Cardiac: Present: Regular rate and rhythm and Radial pulses normal equal Lung/Chest Lung/Chest Exam: Clear and Normal Exchange Lower Extremity Lower Extremity: Right knee: Mild edema with ecchymosis. Patient has full range of motion with flexion and extension. Diffuse tenderness with palpation. Positive distal pulses. Good sensation noted. Neuro Neuro Normal: Alert, Oriented x 3, Sensory normal and Strength 5/5 all extremities Psych Psych Normal: Normal Affect Skin Skin exam: Dry, Intact, Adwolf and Warm Course Vital Signs Vital signs: Vital Signs 04/24/20 14:34 Temperature 98.0 F Pulse Rate 91 Respiratory Rate 18 Blood Pressure 132/73 O2 Sat by Pulse Oximetry 98 Medical Decision Making/CCT Radiology Data Radiology Data Radiology results: report reviewed and image reviewed Interpreted by provider documenting: No acute fractures noted. Interpreted by ER attending Medical Decision Making Medical Decision Makin-year-old female patient presenting to the ER with complaint of right knee pain. On exam she does have ecchymosis and mild edema. Full range of motion with flexion and extension. X-ray shows no acute fractures. Discussed with patient use of Tylenol Motrin heat and ice as needed for comfort. Strict return instructions were given and she is able to verbalize understanding. Discharge Plan Disposition Clinical Impression: Contusion of knee, right Qualifiers: Encounter type: subsequent encounter Qualified Code(s): S80.01XD - Contusion of right knee, subsequent encounter Provider stated Dispo: Discharged Condition: Stable Instructions: Knee Pain (ED) Activity Restrictions/Additional Instructions: Ice and elevate your leg. Use Tylenol Motrin as needed for pain. Follow up with primary care doctor in 2-3 days. Return to the ER for any worsening symptoms. Prescriptions: No Action pantoprazole 40 mg tablet,delayed release (DR/EC) 40 mg PO DAILY RF: 0 quetiapine 50 mg tablet 50 mg PO DAILY RF: 0 escitalopram oxalate 10 mg Tablet 15 mg PO DAILY Qty: 45 RF: 0 cholecalciferol (vitamin D3) [Vitamin D3] 25 mcg (1,000 unit) Tablet 2,000 unit PO DAILY Qty: 30 RF: 0 Referrals: Harriet Marie DO [Primary Care Provider] - 2-3 days Stand Alone Forms: Portal Instructions Provider in triage note Vital Signs Vital Signs: I O (Last 24 Hours) 04/22/20 04/23/20 04/24/20 23:59 23:59 23:59 Other: Weight 113.6 kg Vital Signs (Last 8 Hours) Temp Pulse Resp BP Pulse Ox 04/24/20 14:34 98.0 F 91 18 132/73 98 Date/Time <<Signature on File>> Initializing User: Darlene TOMPKINS 04/24/20 1516 Signed by: Darlene Winslow [facility] 04/24/20 1646 Fabian Bowen MD 04/24/20 1840 Name Value Range Interpretation Code Description Data Sud[facility] rce(s) Supporting Document(s) ID Date Data Source [id number] 04/22/2020 03:50:[address] [address] HEALTH INFORMATION MANAGEMENT ED/ Physician Report : [id number] Signed Patient: Amy Carranza Acct:[id number] Unit : [id number] : 1995 Arrival Date: 04/22/20 Age/Sex: 25 / F Arrival Time: 1542 Copies to: Harriet Marie DO General Adult HPI/ROS General Chief Complaint: Physical Examination Stated Complaint: Knee Pain Stated Complaint: Knee Pain Source: Patient and I have reviewed available Ancillary/nursing staff documentation Mode of arrival: Ambulatory Limitations: Reports No limitations History of Present Illness Initial Comments: Patient was discharged a short while ago. She returns by EMS. She is requesting Medicaid cab to go home. No other reason for visit to the emergency room. Earlier she wanted Medicaid cab to go to the [employer]. Patient does not have any other complaints. She is ambulating in emergency room without difficulty. Related Data Home Medications Medication Instructions Recorded pantoprazole 40 mg PO DAILY 02/22/20 quetiapine 50 mg PO DAILY 02/22/20 cholecalciferol (vitamin D3) 2,000 unit PO DAILY #30 tab 02/28/20 [Vitamin D3] escitalopram oxalate 15 mg PO DAILY #45 tab 02/28/20 Allergies Penicillins Allergy (Verified 04/22/20 14:24) ADDITIONAL UNSPECIFIED Review of Systems Review of Systems All systems: Reviewed and negative except as stated in HPI. General: Denies Fever Cardiac: Denies Chest pain Respiratory: Denies Cough Musculoskeletal: Denies Arthalgia Skin: Denies Bruising Social History Social History Other: 25-year-old female currently on disability, living with her Aunt History of Smoking/Tobacco Use: Never Smoker Alcohol use: Reports None Drug use: Reports None Occupation: On [employer] Lives with: Reports Alone PMH/PSH Medical History (Updated 04/22/20 @ 15:53 by Candice Arrieta MD) Anxiety Depression Seizure disorder Surgical History No pertinent past surgical history (Surgical) Family History Paternal Grandfather No problems noted. Paternal Grandmother Stroke Physical Exam Physical Exam General appearance: Alert and In no apparent distress Cardiac Cardiac: Present: Regular rate and rhythm Heart Sounds: Present: S1 and S2 Lung/Chest Lung/Chest Exam: Clear, Normal Exchange and No chest wall tenderness Discharge Plan Disposition Clinical Impression: Encounter for medical screening examination Provider stated Dispo: Discharged Condition: Stable Activity Restrictions/Additional Instructions: Please take your medications as prescribed. Follow up with primary care doctor in 2-3 days. Returnto emergency room for worsening condition or any concerns. Prescriptions: No Action pantoprazole 40 mg tablet,delayed release (DR/EC) 40 mg PO DAILY RF: 0 quetiapine 50 mg tablet 50 mg PO DAILY RF: 0 escitalopram oxalate 10 mg Tablet 15 mg PO DAILY Qty: 45 RF: 0 cholecalciferol (vitamin D3) [Vitamin D3] 25 mcg (1,000 unit) Tablet 2,000 unit PO DAILY Qty: 30 RF: 0 Referrals: Harriet Marie DO [Primary Care Provider] - 2-3 days Patient agreeable to discharge: Patient/Guardian understands and is agreeable to discharge plan Date/Time <<Signature on File>> Initializing User: Candice Arrieta MD 04/22/20 7237 Signed by: Candice Arrieta MD 04/23/20 0752 Name Value Range Interpretation Code Description Data Sudha rce(s) Supporting Document(s) ID Date Data Source [id number] 04/22/2020 02:51:[address] [address] HEALTH INFORMATION MANAGEMENT ED/UC Physician Report : [id number] Signed Patient: Amy Carranza Acct:[id number] Unit : [id number] : 1995 Arrival Date: 04/22/20 Age/Sex: 25 / F Arrival Time: 1412 Copies to: Harriet Marie DO Lower Ext Problem HPI/ROS General Chief Complaint: Back Pain Stated Complaint: Back Pain Stated Complaint: Back Pain Source: Patient and I have reviewed available Ancillary/nursing staff documentation Mode of arrival: EMS History of Present Illness Initial Comments: Patient is complaining of right knee pain. She states she was standing on on a stool hanging curtain and fell. Complaining of right knee pain. There is no radiation of the pain. Pain is mild. She did not take anything for symptomatic relief. She denies any other injuries. Time interval: Hour(s) Lower Extremity Injury Location: Reports Right and Knee Place: Reports Home History of same: No Radiation: Reports None Severity: Reports Mild Severity scale (1-10): 2 Consistency: Reports Constant Improves with: Reports Rest Worsens with: Reports Walking Associated symptoms: Reports Denies other symptoms Related Data Home Medications Medication Instructions Recorded pantoprazole 40 mg PO DAILY 02/22/20 quetiapine 50 mg PO DAILY 02/22/20 cholecalciferol (vitamin D3) 2,000 unit PO DAILY #30 tab 02/28/20 [Vitamin D3] escitalopram oxalate 15 mg PO DAILY #45 tab 02/28/20 Allergies Penicillins Allergy (Verified 04/22/20 14:24) ADDITIONAL UNSPECIFIED Review of Systems Review of Systems All systems: Reviewed and negative except as stated in HPI. General: Denies Fever ENT: Denies Ear ache Cardiac: Denies Chest pain Respiratory: Denies Cough Neuro: Denies Headache Musculoskeletal: Reports Arthalgia; Denies Neck Pain, Back Pain and Myalgias Skin: Denies Bruising and Rash Social History Social History Other: 25-year-old female currently on disability, living with her Aunt History of Smoking/Tobacco Use: Never Smoker Alcohol use: Reports None Drug use: Reports None Occupation: On [employer] Lives with: Reports Alone PMH/PSH Medical History (Updated 04/22/20 @ 14:59 by Candice Arrieta MD) Anxiety Depression Seizure disorder Surgical History No pertinent past surgical history (Surgical) Family History Paternal Grandfather No problems noted. Paternal Grandmother Stroke Physical Exam Physical Exam Physical Exam: Physical Exam General appearance: Alert and In no apparent distress Head Head Exam: Atraumatic and Normcephalic Eye Eye Exam: EOMI, Conjunctiva normal Neck Neck Exam: Full ROM and Supple. No cervical midline tenderness. Cardiac Cardiac: Present: Regular rate and rhythm Heart Sounds: Present: S1 and S2 Lung/Chest Lung/Chest Exam: Clear, Normal Exchange and No chest wall tenderness Back Back Exam: Full ROM and No Deformity Lower Extremity Lower Extermity Normal: Full ROM and Nontender. Right knee no deformity. Able to ambulate without difficulty. Knee extension intact. Negative anterior posterior drawer test. Patella midline. Neuro Neuro Normal: Alert, Oriented x 3, Fluent speech Psych Psych Normal: Normal Affect Skin Skin exam: Dry, Intact and Warm Course Course Course Narrative: 2:57 p.m. no obvious injuries noted. Negative nexus criteria Vital Signs Vital signs: Vital Signs 04/22/20 14:24 Temperature 98.2 F Pulse Rate 87 Respiratory Rate 18 Blood Pressure 140/101 H O2 Sat by Pulse Oximetry 99 Discharge Plan Disposition Clinical Impression: Knee pain Qualifiers: Chronicity: acute Laterality: right Qualified Code(s): M25.561 - Pain in right knee Provider stated Dispo: Discharged Condition: Stable Instructions: Knee Pain (ED) Activity Restrictions/Additional Instructions: Please take Tylenol as needed for pain. Follow-up with primary care doctor in 2-3 days. Return to emergency room for worsening condition or any concerns. Prescriptions: No Action pantoprazole 40 mg tablet,delayed release (DR/EC) 40 mg PO DAILY RF: 0 quetiapine 50 mg tablet 50 mg PO DAILY RF: 0 escitalopram oxalate 10 mg Tablet 15 mg PO DAILY Qty: 45 RF: 0 cholecalciferol (vitamin D3) [Meli min D3] 25 mcg (1,000 unit) Tablet 2,000 unit PO DAILY Qty: 30 RF: 0 Referrals: Harriet Marie DO [Primary Care Provider] - 2-3 days Patient agreeable to discharge: Patient/Guardian understands and is agreeable to discharge plan Provider in triage note Vital Signs Vital Signs: I O (Last 24 Hours) 04/20/20 04/21/20 04/22/20 23:59 23:59 23:59 Other: Weight 100 kg Vital Signs (Last 8 Hours) Temp Pulse Resp BP Pulse Ox 04/22/20 14:24 98.2 F 87 18 140/101 H 99 Date/Time <<Signature on File>> Initializing User: Candice Arrieta MD 04/22/20 1453 Signed by: Candice Arrieta MD 04/23/20 4802 Name Value Range Interpretation Code Description Data Sudha rce(s) Supporting Document(s) ID Date Data Source [id number] 04/17/2020 04:07:[address] [facility] Name Value Range Interpretation Code Description Data Sudha rce(s) Supporting Document(s) ED Provider Note [facility] TZQEGd5rXcGDYrKg81/NCNuwHSPxi1IiGQkxBGk2TMkaAXAjC2YqWNB3dP1aNNB2YEpPCiZyOzDvKWXh lbm [file] S4PUZyDZWtZN7iMLMHIr8+UUqtxHHvzXlcWYOPLqV4ZpR3KIurJCCDIu2T ID Date Data Source [id number] 04/17/2020 03:03:[address] [address] HEALTH INFORMATION MANAGEMENT ED/UC Physician Report : [id number] Signed Patient: Amy Carranza Acct:[id number] Unit : [id number] : 1995 Arrival Date: 04/17/20 Age/Sex: 25 / F Arrival Time: 1438 Copies to: Harriet Marie DO Psych HPI/ZULEYKA General Chief Complaint: Anxiety Stated Complaint: Anxiety Source: Patient Mode of arrival: Ambulatory Limitations: Reports No limitations History of Present Illness Initial Comments: 25-year-old female patient presenting to the ER with complaints of feeling as though her blood pressure was elevated at home. Patient states she did have chest pain shortness breath blurred vision palpitations anxiety. Upon arrival to the hospital she is symptom free. Patient states she did not check her blood pressure at home. Related Data Home Medications Medication I nstructions Recorded pantoprazole 40 mg PO DAILY 02/22/20 quetiapine 50 mg PO DAILY 02/22/20 cholecalciferol (vitamin D3) 2,000 unit PO DAILY #30 tab 02/28/20 [Vitamin D3] escitalopram oxalate 15 mg PO DAILY #45 tab 02/28/20 Allergies Penicillins Allergy (Verified 04/07/20 12:31) ADDITIONAL UNSPECIFIED Review of Systems Review of Systems All systems: Reviewed and negative except as stated in HPI. Social History Social History Other: 25-year-old female currently on disability, living with her Aunt History of Smoking/Tobacco Use: Never Smoker Alcohol use: Reports None Drug use: Reports None Occupation: On [employer] Lives with: Reports Alone PMH/PSH Medical History (Updated 04/17/20 @ 15:08 by LEDA Ambrose) Anxiety Depression Seizure disorder Surgical History No pertinent past surgical history (Surgical) Family History Paternal Grandfather No problems noted. Paternal Grandmother Stroke Physical Exam Physical Exam General appearance: Alert and In no apparent distress Head Head Exam: Atraumatic Cardiac Cardiac: Present: Regular rate and rhythm and Radial pulses normal equal Lung/Chest Lung/Chest Exam: Clear and Normal Exchange Abdomen Abdominal Exam: Bowel sounds normal, Soft, Nondistended and Nontender Neuro Neuro Normal: Alert, Oriented x 3, Sensory normal and Strength 5/5 all extremities Psych Psych Normal: Normal Affect Skin Skin exam: Dry, Intact, Adwolf and Warm Course Vital Signs Vital signs: Vital Signs 04/17/20 14:45 Temperature 98.1 F Pulse Rate 79 Respiratory Rate 18 Blood Pressure 124/90 H O2 Sat by Pulse Oximetry 98 Medical Decision Making/CCT Medical Decision Making Medical Decision Makin-year-old female presenting to the ER stating that she felt that her blood pressure was elevated at home. Patient states she is feeling fine at this time is requesting discharge. Patient's vital signs are within normal limits. Exam is benign. She will be dischargedat this time Discharge Plan Disposition Clinical Impression: Encounter for medical screening examination Provider stated Dispo: Discharged Condition: Stable Instructions: Normal Exam (ED) Activity Restrictions/Additional Instructions: Increase her fluids and rest. Follow up with her primary care doctor in 1-2 days. For any worsening symptoms return to the ER. Prescriptions: No Action pantoprazole 40 mg tablet,delayed release (DR/EC) 40 mg PO DAILY RF: 0 quetiapine 50 mg tablet 50 mg PO DAILY RF: 0 escitalopram oxalate 10 mg Tablet 15 mg PO DAILY Qty: 45 RF: 0 cholecalciferol (vitamin D3) [Vitamin D3] 25 mcg (1,000 unit) Tablet 2,000 unit PO DAILY Qty: 30 RF: 0 Referrals: Harriet Marie DO [[facility] Provider] - Stand Alone Forms: Portal Instructions Provider in triage note Vital Signs Vital Signs: I O (Last 24 Hours) 04/15/20 04/16/20 04/17/20 23:59 23:59 23:59 Other: Weight 102 kg Vital Signs (Last 8 Hours) Temp Pulse Resp BP Pulse Ox 04/17/20 14:45 98.1 F 79 18 124/90 H 98 Date/Time <<Signature on File>> Initializing User: Darlene TOMPKINS 04/17/20 1503 Signed by: Darlene Winslow 04/17/20 2126 Candice Arrieta MD 04/18/20 0911 Name Value Range Interpretation Code Description Data Sudha rce(s) Supporting Document(s) ID Date Data Source [id number] 04/14/2020 09:47:33 PM [facility] Name Value Range Interpretation Code Description Data Sudha rce(s) Supporting Document(s) [facility] ACSGIf5vQlMXZeAc39/UDPbuNUMaq3DiWGxqYUd1SAnpCVWbN4UxDRZ5bM6uQNW6SRwSQqEeZeSnKMCf lbm MvYctRFbIlJHMvWroGTaJtBVwzSkbyiGEqYH3KxGT8YITpI50sRQPrWSJdS3VrEFN7SoL+Ou8GLYExiP ZiQJ4NGhkU1Cbfide99m3c/HaSJ5ThfTJHP07Xrjtvtuj667jmJ029XVATAcgGLXiJkbmgIm+bfX2IH4 TA1FFn5ABqLCE2cMgaxhCm/xmM5UBac74O/6ufYSTZ 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+/Zteqmo3zvu+cQkHDvRtSfTalm9D1F0khVQ7V2UXTKSLjNI3Gjvg3H5RXzONIGsr046JppEx2x6b [file] JvMR4FYZt= ID Date Data Source [id number] 04/07/2020 01:05:00 [place] [address] HEALTH INFORMATION MANAGEMENT ED/UC Physician Report : [id number] Signed Patient: Amy Carranza Acct:[id number] Unit : [id number] : 1995 Arrival Date: 04/07/20 Age/Sex: 25 / F Arrival Time: 1223 Copies to: Harriet Marie DO General Adult HPI/ROS General Chief Complaint: Physical Examination Stated Complaint: Physical Exam Stated Complaint: Physical Exam Source: Patient and I have reviewed available Ancillary/nursing staff documentation Mode of arrival: EMS Limitations: Reports No limitations History of Present Illness Initial Comments: Patient reports that she was having chills that have resolved. She also reports that she had fallen yesterday and had left knee pain. Pain has resolved as well. Patient was seen at [facility] last night. X-rays were done and that were negative. Onset/Timin Time interval: Days(s) Location: Reports Lower extremity Radiation: Reports Non-radiation Severity scale (1-10): 2 Quality: Reports Dull Consistency: Reports Now resolved Related Data Home Medications Medication Instructions Recorded pantoprazole 40 mg PO DAILY 02/22/20 quetiapine 50 mg PO DAILY 02/22/20 cholecalciferol (vitamin D3) 2,000 unit PO DAILY #30 tab 02/28/20 [Vitamin D3] escitalopram oxalate 15 mg PO DAILY #45 tab 02/28/20 Allergies Penicillins Allergy (Verified 04/07/20 12:31) ADDITIONAL UNSPECIFIED Review of Systems Review of Systems All systems: Reviewed and negative except as stated in HPI. General: Denies Fever and Chills ENT: Denies Ear ache and Sore throat Cardiac: Denies Chest pain and Palpitations Respiratory: Denies Cough and Shortness of Breath GI: Denies Pain and Nausea Neuro: Denies Headache, Dizziness and Weakness Musculoskeletal: Denies Neck Pain and Back Deb n Skin: Reports Bruising; Denies Rash Social History Social History Other: 25-year-old female currently on disability, living with her Aunt History of Smoking/Tobacco Use: Unknown if Ever Smoked Alcohol use: Reports None Drug use: Reports None Occupation: On [employer] Lives with: Reports Alone PMH/PSH PMH/PSH Medical History Anxiety Depression Seizure disorder Surgical History No pertinent past surgical history (Surgical) Family History Paternal Grandfather No problems noted. Paternal Grandmother Stroke Physical Exam Physical Exam Physical Exam: Physical Exam General appearance: Alert and In no apparent distress Head Head Exam: Atraumatic and Normcephalic Eye Eye Exam: EOMI, Conjunctiva normal Neck Neck Exam: Full ROM and Supple Cardiac Cardiac: Present: Regular rate and rhythm Heart Sounds: Present: S1 and S2 Lung/Chest Lung/Chest Exam: Clear, Normal Exchange and No chest wall tenderness Back Back Exam: Full ROM and No Deformity Lower Extremity Lower Extermity Normal: Full ROM and Nontender. Mild erythema noted on lateral left knee. Range ofmotion intact. No crepitus. Patient is able to bear weight. Negative anterior and posterior drawer test. Lower Extremity Abnormal: negative Homans sign, Swelling and Tenderness Neuro Neuro Normal: Alert, Oriented x 3, Fluent speech, Psych Psych Normal: Normal Affect Skin Skin exam: Dry, Intact and Warm Course Course Course Narrative: Patient's symptoms have resolved. She would like something to drink and dischargepapers. Vital Signs Vital signs: Vital Signs 04/07/20 12:31 Temperature 97.8 F Pulse Rate 84 Respiratory Rate 18 Blood Pressure 125/74 O2 Sat by Pulse Oximetry 95 Discharge Plan Disposition Clinical Impression: Acute knee pain Qualifiers: Laterality: left Qualified Code(s): M25.562 - Pain in left knee Provider stated Dispo: Discharged Condition: Improved Instructions: Knee Pain (ED) Activity Restrictions/Additional Instructions: You may take Tylenol as needed for pain. Follow up with primary care doctor in 2-3 days. Return toemergency room for worsening condition or any concerns. Prescription s: No Action pantoprazole 40 mg tablet,delayed release (DR/EC) 40 mg PO DAILY RF: 0 quetiapine 50 mg tablet 50 mg PO DAILY RF: 0 escitalopram oxalate 10 mg Tablet 15 mg PO DAILY Qty: 45 RF: 0 cholecalciferol (vitamin D3) [Vitamin D3] 25 mcg (1,000 unit) Tablet 2,000 unit PO DAILY Qty: 30 RF: 0 Referrals: Harriet Marie DO [Primary Care Provider] - 2-3 days Patient agreeable to discharge: Patient/Guardian understands and is agreeable to discharge plan Provider in triage note Vital Signs Vital Signs: I O (Last 24 Hours) 04/05/20 04/06/20 04/07/20 23:59 23:59 23:59 Other: Weight 72 kg Vital Signs (Last 8 Hours) Temp Pulse Resp BP Pulse Ox 04/07/20 12:31 97.8 F 84 18 125/74 95 Date/Time <<Signature on File>> Initializing User: Candice Arrieta MD 04/07/20 1309 Signed by: Candice Arrieta MD 04/07/20 9346 Name Value Range Interpretation Code Description Data Sudha rce(s) Supporting Document(s) ID Date Data Source [id number] 04/05/2020 08:16:[address] [facility] Name Value Range Interpretation Code Description Data Sudha rce(s) Supporting Document(s) History and Physical [facility] SKZNGd6cZvRDHpDi01/VXVsaSCSbl4YaWPbxBMr2YVimHYLgN3CrOVV7iH1wFHB4TCyTEdInYnSgNCRl lbm [file] ALW5IOOlIdJeVYZ8CBl8NgGsCL5OKs2EPjR8HZF1mMBiTd8KBRq3KLlLJzCuGT5GCYv= ID Date Data Source [id number] 04/04/2020 04:55:[address] [facility] Name Value Range Interpretation Code Description Data Sudha rce(s) Supporting Document(s) Discharge Summary [facility] YERWDl6bOsWUVuOu09/LLEzdLDBtv1UyEVxfOJc2BFvwKLKoW2BfYCQ0yK8mZMK0EMxHRxIuFeNrSGFk lbm ThNfqPUsUoLUUnUjnTEaGwUAjxPxyesMHaNX6OeRP9OUVcO03rNIXwVZPmU6CmHFI2XGR+Ar2VIPQlbJ BnOA7ZRcrY4T4ko3t1Ge5tzq1DZQqXvNN3kJyQ+ysXfhhEYkPKteeJ53PUI4mZ6C1Sk5Fh2dn8h6VrPD y1rj3W4XOiz48/0P1GCWpHv2dxmTVWycd7d7cEN4ll VP6//bjpT03P2O//lDhgfbcCf68iJkFW2dIKVStWhxjaeuDhy2kaX89WaOkHq+zmiFtnAU8OKsAOo57p j+4+zOfjp+xoFG3DDmhwkrUzJdl9IzNgfgmofp/tt+r0F/RpJL0Dp06CSbXg2vUSIidyeIbm7tuMN0oD oLLWqB2nOMtpCzNR09sozax4zM14LoredJEmQ6x3ui aRZ1dEVEO4Flk/4+4XQSvM783UUbbkoTeh57THw/7U7cW+O9gAtxTWPshZSx4pKvB8U2IsuufBbSpUt6 dMirlfM1mY/qqdV8mt7CwI4Mp2wtsgadS5AoYs+Z+a+MN20U+yztVdPEn/E7ieh9x55XT0LP9H6v3QkM miJGk68+WD05BcNnoGU+Hz77p2vDe4EPrC92WAJWAk vGbX++GoRp7SuvWD4epusbShnN1B3eqkWr4ANawXi4//7+Rh2+J33lIr1l0vXB1f0KtsE2RppVewxD [file] dGE+DQogICAgICAgICAgICAgICAgICAgICAgICAgICAgICAgICAgICAgICAgICAgICAgICAgICAgICAg ICAgICAgICAgICAgICAgICAgICAgICAgICAgICAgICAgICAgICAgICAgICAgDQogICAgICAgICAgICAg ICAgICAgICAgICAgICAgICAgICAgICAgICAgICAgIC AgICAgICAgICAgICAgICAgICAgICAgICAgICAgICAgICAgICAgICAgICAgICAgICAgICAgICAgDQogIC AgICAgICAgICAgICAgICAgICAgICAgICAgICAgICAgICAgICAgICAgICAgICAgICAgICAgICAgICAgIC AgICAgICAgICAgICAgICAgICAgICAgICAgICAgICAg ICAgICAgDQogICAgICAgICAgICAgICAgICAgICAgICAgICAgICAgICAgICAgICAgICAgICAgICAgICAg ICAgICAgICAgICAgICAgICAgICAgICAgICAgICAgICAgICAgICAgICAgICAgICAgDQogICAgICAgICAg ICAgICAgICAgICAgICAgICAgICAgICAgICAgICAgIC AgICAgICAgICAgICAgICAgICAgICAgICAgICAgICAgICAgICAgICAgICAgICAgICAgICAgICAgICAgDQ ogICAgICAgICAgICAgICAgICAgICAgICAgICAgICAgICAgICAgICAgICAgICAgICAgICAgICAgICAgIC AgICAgICAgICAgICAgICAgICAgICAgICAgICAgICAg ICAgICAgICAgDQogICAgICAgICAgICAgICAgICAgICAgICAgICAgICAgICAgICAgICAgICAgICAgICAg ICAgICAgICAgICAgICAgICAgICAgICAgICAgICAgICAgICAgICAgICAgICAgICAgICAgDQogICAgICAg ICAgICAgICAgICAgICAgICAgICAgICAgICAgICAgIC AgICAgICAgICAgICAgICAgICAgICAgICAgICAgICAgICAgICAgICAgICAgICAgICAgICAgICAgICAgIC AgDQogICAgICAgICAgICAgICAgICAgICAgICAgICAgICAgICAgICAgICAgICAgICAgICAgICAgICAgIC AgICAgICAgICAgICAgICAgICAgICAgICAgICAgICAg ICAgICAgICAgICAgDQogICAgICAgICAgICAgICAgICAgICAgICAgICAgICAgICAgICAgICAgICAgICAg LTFhQOGiZGMwNAWsBJJnCVSmPYHgCMBlHFJeRDGsOBJrPPBmVSTfYPVmUMZiTNLwROHmMQHqWAd4N4al STZtWBLzOX6pVDf9Ll7+XTkYDnKuBLQ4obYgbW1UUO 5dz1YnKDmaKSShn7OjBKh0XL4HWGEkDNkhCT1GGQxtsb9CZIUlCFYzvYFEn8ldDfLsZVV8RMAuUynqEQ 2MYADqW5uvsxRpYLYsWKPZKFalCBUNDVpxURIPDAPvDJUgAhDfPdZrLGPrWOVlKSSQNYK0TJPoTuKgZP AnEDStEgUtBSUKIZQaQMUiQoOhSWbdZK4Tp3EmtPKl QB7HBw9MYkJtHX1qpb6TKFTdYIEaFiyCYkw6DPzoIT5DeWFblQE3XjMaFTCGMtXeD2gns2ZzLFsbFQJI UWnaXL2Av9KnzFLaQCa+Tb1UHY1yo4RmMXu9WcIdNQ6vse3QVApUSwWxW9FkwWeyIVOjg2XuKYTlHMWX qX8qGUY3OOC5BMJfdJppvdnnO14vIa7oLE9BDQU4OY ZbVjWiXaXcVbKkDYs7MlvmFV5eTTthOJ5PTTA5IAviYTDxJBTpK4mRNmDxRLWvDKFtiWtdFE0OTkPtO6 GtfoBbcHQ3WgFiHSDKNb6+KJphrhNzHnbGFoZ3QHJdz4FbIMe9LE7DGWTtRZdeTX7GNSZcuC5zVPcrGI 3DQbJ8TIBiZQWSXfNuE95ynQBySUc4H6OnZjWzVNYf RmlsZXMgPDwvTmFtZXMgWyBdDQogID4+ID4+COjsLR2GEGayaiTnQKOhBa3WYFEbZEVsNH1yNHVwSDCc F2A8mIdrMQDSAyJcF6kkpdeoAP8pAVEoW076lTxkyhSjXKZ5GMLlZt6YVECvLIF6GYCaqMViDIHeBWVG HUdpBB3XeOGjJJZ6cM8kBTfuCQHbWTZvQ8lUDkJjkU fgVC32lSdpxnOsxKFgCNs+Xb2RXE7kf7TuPUn2bkYkDKuvTOL2GKkxBAPgSRXbYJEgWCK4DNT9PGSUSb CxOXWoARGxTAomRKEnUTMaph7DVBAiSKM5JtLjNRQcEVEfYDPtVBedOMKuJWA4NMjtZIZuSZXbJV8QQj MyMVYxXHUaMEejYGYkPRPwmw4LWTViULZpQNN0ZYRp IYWtGYXwZNnhPQDdEFL9Nac0MNVuZBLnCH3CYqWeHQYdECp7TxqeIQWiJXSxfv2UCUDtHICgETw1ItZu RUDqREAbPSglACEuVBQzWAS7ZWIjRQVqUW8YUiPkTKSpVJIhZpYmRMMhOKVtlg1EZAHuMYOtGGOiKXXq VHRyVLKpGJkdMQCgVMF2WXGpVUDkEEQmPA9KXdGrFQ ArJVnhVLHrFKMsEGLbww4MPLRlHRGgKLU4SGIqGFMbOPNfOEsnSPLzRRUdLCz8ZPYlRANnUC1FXjXcIT EzVuD4DXAiNSGgUOPcys2AKCNjKVWlQWQ0RXPsHEBbAXZhRBhuEGKfMWV3CXh6NEEaIGMbXJ7TEfCnCG OiByeaWCNoNMHzATBqaq7YDDHcXXEsAYN2BENzRCLm ASPjVUrlMLKoIPZuHDP2HCNlSMFkPN6NMaBcYLZmAqWzUJIbCSEzXWBefb1XGUDgCTHxAhM6YZRgSOVk TTXtJWdeGZHqFOFzFjV2GCNeCVWrDT3TBqSnFLQyEyFiRwKmGAZvCZNjjc2FOBYvHBAmGGW5WIPhHWYa XDIzWNmtHYXfXVE4KjV8PYGyUOMgNV1AQlCjUPGbOn I2JSQbOKAxJRGlwi2GNOUmTOFnHErgAWQuLKZlIWUgNHmjKAQgXCB2XDulLUHmIZHdWQ7XHvGuNZFbIy O0MQDzZJGfTMVash2EMIYeURAlZdI7MCGwEWUxQYKiNXvlQPDxDIC1IeRyHJQxKWHoQU0QRoRcPVZxJl bgKAFtZCEpJRFkrw9LYMOiTFIqSGD3JgBgGPBoJNUu HFfpUGGsTNP5Mgr5MJSuGXScOW9BIcAyLSQjDYOcLeNsLGMmYLAlvk4OMQAmDXE9OQH0NWVgUPRaWWIi DIukRHPwYPUzZDk5XZAmNDTpVS2HJjLeQOFsAGS4IbqfPSIvISOnwh3TEBLrZER2TQv0BAIqDPIrLNNp MIrwZWYoBKTiBYW1JYKaOHBdVU5REbEwTILsSGAoBv AqTZUyMXBuph8XYYYxFFI7EcYlMnLbKKVmJXOzHZalISIqZIMhZlRkMUDiCCRwYR5MNwCqDYTeESBgGE KfZKAbVAUyzb7THIAeZNN1OPJxCsRwHIJkVSKoFVrzTUTsRTK7IKn9GMNpAXIvHB2GQiYjJGzqJDPMXn n4NQsdU6z0TGH9MG0IZ5Afl0EwMRhnTNLQGQtlIK6p wgGkSIJiSe2JB7qNFjo6BfHkQsPdKVMgJXOmFKOsCTPaIZauAyiiUiPvSqB8By9oPGhsK2J0JPS3LlD2 ANNqBFD4TaQiBGMySMClIADhGIkcZxXxDX6NAa1KOnW3QKT3tLNiJc5YEQF6TLbADjTnAZ2AGOf= ID Date Data Source [id number] 04/03/2020 04:03:[address] [facility] Name Value Range Interpretation Code Description Data Sudha rce(s) Supporting Document(s) Consultation [facility] FFTMEg7lYyEMNzMn39/BULyfDDFau4PgGHgyIYs6ORrjMTVbA4VgTAX6zM0zTNC8QIsYAsTqVmCyDPSg lbm [file] AgICAgICAgICAgICAgICAgICAgICAgICAgICAgICAgICAgICAgICAgICAgICAgICAgICAgICAgICAgIC AgICAgICAgICAgICAgICAgICAgICAgICAgICAgICAg ICAgICAgICANCiAgICAgICAgICAgICAgICAgICAgICAgICAgICAgICAgICAgICAgICAgICAgICAgICAg ICAgICAgICAgICAgICAgICAgICAgICAgICAgICAgICAgICAgICAgICAgICAgICAgICANCiAgICAgICAg ICAgICAgICAgICAgICAgICAgICAgICAgICAgICAgIC AgICAgICAgICAgICAgICAgICAgICAgICAgICAgICAgICAgICAgICAgICAgICAgICAgICAgICAgICAgIC ANCiAgICAgICAgICAgICAgICAgICAgICAgICAgICAgICAgICAgICAgICAgICAgICAgICAgICAgICAgIC AgICAgICAgICAgICAgICAgICAgICAgICAgICAgICAg ICAgICAgICAgICANCiAgICAgICAgICAgICAgICAgICAgICAgICAgICAgICAgICAgICAgICAgICAgICAg ICAgICAgICAgICAgICAgICAgICAgICAgICAgICAgICAgICAgICAgICAgICAgICAgICAgICANCiAgICAg ICAgICAgICAgICAgICAgICAgICAgICAgICAgICAgIC AgICAgICAgICAgICAgICAgICAgICAgICAgICAgICAgICAgICAgICAgICAgICAgICAgICAgICAgICAgIC AgICANCiAgICAgICAgICAgICAgICAgICAgICAgICAgICAgICAgICAgICAgICAgICAgICAgICAgICAgIC AgICAgICAgICAgICAgICAgICAgICAgICAgICAgICAg ICAgICAgICAgICAgICANCiAgICAgICAgICAgICAgICAgICAgICAgICAgICAgICAgICAgICAgICAgICAg ICAgICAgICAgICAgICAgICAgICAgICAgICAgICAgICAgICAgICAgICAgICAgICAgICAgICAgICANCiAg ICAgICAgICAgICAgICAgICAgICAgICAgICAgICAgIC AgICAgICAgICAgICAgICAgICAgICAgICAgICAgICAgICAgICAgICAgICAgICAgICAgICAgICAgICAgIC AgICAgICANCiAgICAgICAgICAgICAgICAgICAgICAgICAgICAgICAgICAgICAgICAgICAgICAgICAgIC AgICAgICAgICAgICAgICAgICAgICAgICAgICAgICAg ICAgICAgICAgICAgICAgICANCjw/yHFrJ4ptpAQvqiS2F6ecYf9FOd1MZO3fy7UbSFZiQHjmhlClPfyA SpGxBAXhZspTVpz2XJxaNO8PlQUxS4GfI8YfUHevGV5FOTXtTJWqpSAfPWErBCKfHhX9DAFcCVszVD6M oZJxLIxiPJImDWPjMtHiPGIfTG2TMPNvX600rqSpOf 0WKa8IRvBdJX1nuh8ILOFiPWCfAccBZpe5BXvjWN6JcKMwxACqNyZoITDUHbIzU6dtm8UaEZctUJXFWD yyWB1Do4CwbOFqWQm+Sb6GVS4gd9HbNRppJpCtEP9nco7UOUxBZbPkB2IcbUdpHDNdptX2lTWhTTY9KO pjukGzIYDmPl1pX1RoNEkdJA0HWiJavRUgKA6pRK4z PQMfASZnExTiRLAKDY6CKMLpTUFxyOPiJBXpJUKMFA5JCZuhNYX0BQVeudTfzFOlLPxxGI6MZFCqleTu MTYgMCBSDQo+Aa6GWN4gn0FfVQfjZALnBE6zkl7QHUlTSzFiW8Z4pZQdO0X8WHclOd1CXIFqQJBxORYr GLYFBGynSS0BTK2ndaQ2RJ8NgWNeKLEyLTSoyPMmQV a3Y71inIZnWSpcFX2CDKE+Dulce+Ar2ELLZqCPNiHPKoQrHpMHBPFcSfD0BfO2UOl6SbP2OkBZ68gDjnjx DeNCuxXH6XGH0vJBRrWFFPGW9EhRTenR2juoJaTfRaBKCQVzHcW88wnWNsIKKqCXZ7PQMfBj6UDZVyB4 PrahGabNyihuQtSDCkNZYNWW7BICiswwVugDCpuDux HM86bZcmRZ2FSx6QSkMpYS9biz1CsLLiEe4HLNRjHT6FVNNuMBLvVEJvBIR6GAYyWuPnLPofHOZzGRGa TPJ6DVYpZWKvQL7SHmGjSOEnSBa4CgQdGTBfDHHjyx6VRVNuWOUaDKK8MMRdFDAlCSGvQHdpCSNgYFDa JXZ9DKBjZNCrZS9UAwBvQFGoNFL0HcejQMWcSBQdmi 5TWVMgIZSnPvj3ExUqRLOgOCLxCAglJRKnLEK2VPZ5KSTmULYdAC5UPsPcSVMoVEB5AjBdIMJyCZUytn 1PGBNuMLKxKQO2WICcZISjUBYhBRnbKKRaTTN5NWj5LGWnLIXrVS1ARaUfMEGoAAXcLJluWXJtULMhik 4YFFQlNWXwNwMcRwKiNCGwPGFiRQicVQBeGMO9QrG5 XYSvCXNzUU6YYwQyAUZrOPb8XPWoBIZiALVmkm1BAVPbPMSdUehkGCCaGFSbPTQgMXtqOIPbZMA6SkT7 MCSgTVRdSU0HPaCwVZQqOLdrEfArZQIaHINnkx0LPTMqOJXbFFC2ZqTlKAWtMYZqGBg7sdFrqYWsXEn2 IL2UX6ExnfFwIPvRFn2Fb020SRI2YWUdWa0AW0xnCr 5xODQfPPFFZe6OJYg8XvIrYVF6SOHeFRy8IPCfPPPuPTh3XhA1DIHoFRAbMDC+CHgqNBA4PMg2CONbAj F1G8I9D7B7Ddt0AOizRMG4FUTbAv3cDVCERk4+EKdfhLAlwGuhRXVHWly3JFuNFiSkFA8ECLz= ID Date Data Source [id number] 04/03/2020 02:40:[address] [facility] Name Value Range Interpretation Code Description Data Sudha rce(s) Supporting Document(s) ED Provider Note [facility] VKVBQd8nMkDIEmJx65/DTBjrGJCkq2MlFCvmJNq5OHcyVNPrA8ZgOAO0dZ9oEMF6FXrWQdZiRqTrZHLr lbm [file] 6RMcQ9XZD1vIOeBt3BELezGXoKIuKlGD9YVZp= ID Date Data Source [id number] 04/04/2020 06:30:[address] [facility] Name Value Range Interpretation Code Description Data Sudha rce(s) Supporting Document(s) Specimen source [Identifier] of Unspecified specimen [facility] SARS-CoV-2 RNA 2018 nCoV Real-Time RT-PCR: NOT DETECTED [facility] Assay Performed [facility] Patients first test for [facility] Patient employed in healthcare setting [facility] Patient has symptoms related to [facility] When did you start to experience these symptoms [Date and time] [Phen X] [facility] Patient was hospitalized because of this condition [facility] patient was admitted to ICU for condition [facility] Patient resides in a congregate care setting [facility] status [facility] ID Date Data Source [id number] 04/03/2020 01:53:[address] [facility] Name Value Range Interpretation Code Description Data Sudha rce(s) Supporting Document(s) SARS-CoV-2 RNA [facility] This lab was ordered by [facility] and reported by [facility]. ID Date Data Source [id number] 04/02/2020 04:36:[address] [facility] Name Value Range Interpretation Code Description Data Sudha rce(s) Supporting Document(s) ED Provider Note [facility] HPXPMx3eSaFWYnMf45/QEEtfNPHlt3NiROvyQFn9CFfoJYMkP5KzSHY1dD7wVGI5JOdBCxLwZwAcZNR9 lbm [file] RGrjQWIPFa7W ID Date Data Source [id number] 04/02/2020 10:02:[address] [facility] Name Value Range Interpretation Code Description Data Sudha rce(s) Supporting Document(s) ED Provider Note [facility] VPZQHt3tBsCQRvRz29/CRDmtGJZkq3AaORvjSKc5SGhcBRSiQ9RsFEL9lP6zQDM3ESnPEpWcOmKdZRZ8 lbm [file] HlQyl4XcVhKVJeTdd+JW7qQGh+Eg2Px4FglqW6mzNgJNv9OcU1HR0LYJAUU1BWSe== ID Date Data Source [id number] 04/02/2020 10:01:[address] [facility] Name Value Range Interpretation Code Description Data Sudha rce(s) Supporting Document(s) ED Provider Note [facility] WWEGZs6oQdYTQeHc16/SJHyzPOSjt5ZzFHhcMUn3HIqtZURxF3NiEHI6pO5rAWD7IClWOqJtOfKwYZQ8 lbm [file] lwQ3ZN3ZkMBrKDEbIUOsoBFjXLl5S69caIVfRJjfXO4RXGD+Dulce+Ty5HOEHmYXPgPWXpMzXtHEBHNjIx G6KkK2CAo9NcH0KnJP78tBvojcSnNKqqRD4VSC1uTJ AgWUIIUZ2TbIHkcK9sscH9OgGtQNQNCqDsG17pqLKyCAKhWVLpDEIvFx5YWIKxQ1TrrgVkaLtpeyNtFS GlJEYRPT6YEOakewAawUYldYfiDL93sLtmXW8LLo4RTkUmVA8mkm3MfWGfBu9FACR0RM5VOSHyOQYaGJ LtEJW6UORzZoNfOZnnOTImUGFbFYC8SQAyIGByXU0M BtNlWHRuMSJ1EAWgYRHvDNMrrl2JFCJeWNI1QiJ2ESPpOPZpHYYgSNzdQEFtRHIrABZ1QMDrRRLpKN9N AaQhOINpTZE0IizpBVEnBIDjre2EFAMtDHRiWrCeXZCfGHZgDFXnQGzoLVFdQZY4Krs0VKJkAAXbUJ8U XzReFOUaGLV5CMVfCKPsKPWihv2RXQAoZZOpZTqpTS JoJTVeGHMbZHxiBQAlCAN4TOS7XYEkREWzXI9KYaSqLSKvIOC3BPxnRUTgBZNdlz9HXPPqRRMaHsH3RU JfYBMvYBZyOBoeMKBsRRA7HVU6VYXsZVFvJC8LDhHvIRKbEKY8SnDsKCXfYOHmao9VIECmUQPtLgGyMC OoHOYdUQZqEUccMLJiDIY9TdT4INOpXZXpMW9OBrXr DWZlDRi8MwAhZXPoXRXzta3VENMzNDUoQMF0OUNeTYPzWYBfCMqeGUExSHZyWJEiFIFcRDIuSV7UHiQy KKGfPgGqLsCrOSJtCLLyvz6IFTSoDZPqSqX5MnOiJXFiIGXfKExbWIPeYZT4YrAwCXWeITSoRW7REhDe JBOiHzkbBHtrSEXtSTJfui4JXVJqSPNxPnD0PKPsRO VnKNFhBCehOWBwJJS0DwG7NFJhPCSaMN9OEbMnRKJtMkf0SOYoAPRpWZNzsm8EDOPeUWYdAUX8NTDyZN ZtVTNyPTcoGCVzIOD9JLY4KJCiYEKjEM8HKbAcXABdLkc0BQNkRFRvPBFkaa7QPAUyRPXnHAa8BOUuNL OnXAWtPDzsCYCeCPMiIMN1OKYuJOHrIB7ETkQgGFZf GeUqSWIlFVLcSOLbxt9JFHYbKJLePDU7NMOtKUViTTVeULbhEDFrRZWfWoE7NAHcSUKbZH5HTuLlIDAe KSW6EVceRFJwXUVmdt9ZSZPeRLR9SeD4WmQlQRFoQKOnFMocGVZkGVMjBXJ4AOJeVBFlXB5JGjYkJTGe LTU3GZNkHDQbLOZqsx5TPMNzKMO0LUDjJAMhNVEoLX BhOGjsKYMjJIK7YvAwWEQtHKEcGQ6PAeGpRAAsZQJ3GZJfBYXmTVKccj4UUSGxUXU3DKPaPAChZMOhXM BuHEzyJSWuKAA0LSF2YQBxKTLbHZ7NEzDvWTKgWCO1FIDcXYJjRSKugf9BSYAvKOI1HzPmJSMzRBOtNE LyZEzzDJTmPVX3RpI3YPXiWFLpMK8DBqPoVYFxZKb0 ZQSuUENcNGMqet4RKMLrTJN6NyJ2RVAiVBHgMDNnFTsqTLJuFEI9Nuy8CAMrABZnSS1CNcSfDQYxUJh7 ZRcgGDGeVFQmqd0VSINlFPJ2ZNBtUzWzSDOwKISyLXcmNXJnWNN2BhG7TRZqFLHlAD8EFfTaPLImCRt4 WNneIQGvAZFfkn5DsXLbkNtcvx0XAJjBJj0GeDznKC I7IUmzAg5bcCO9MfIaEEMQSd0IklUnZWOcVRDGSYbuYLLrFTNiVsVaJ5I2OTi7HTM6FqkrBCUkVZJ6UE rxWOOpBNTdUeL3NNH1ToR7RHM9NSp4Ktj5DEDwQdR7EFX5JsZpJUAcYXV+XI9nILz+Zy4Dr2ErxcF2gm AxGGn4NBruJv1MAYWMA9QHMm== ID Date Data Source [id number] 04/01/2020 11:52:[address] [facility] Name Value Range Interpretation Code Description Data Sudha rce(s) Supporting Document(s) ED Provider Note [facility] ROXTYz7wRxBWKmEb21/QYLefHLMav2PtZIpsBFe5JKwnWAUaV4XzIQD2aS3qFYM5QFtZTiJcXzGfBFP0 lbm [file] NCZsXlR8OaSaAK3IQm7ESiB1SSO9cFFbHb0WBNpwCJjIKuVpNG1AXIm= ID Date Data Source [id number] 04/01/2020 09:38:[address] [facility] Name Value Range Interpretation Code Description Data Sudha rce(s) Supporting Document(s) Consultation [facility] CLICRx4lVdBYQpIe00/NZFtqUXPgv9TnORzyRFd0WEuvILSjW5NoTXJ7nE0tCZV2NQcOVaKcFjSxCGR6 lbm [file] AgICAgICAgICAgICAgICAgICAgICAgICAgICAgICAgICAgICAgICAgICANCiAgICAgICAgICAgICAgIC AgICAgICAgICAgICAgICAgICAgICAgICAgICAgICAg ICAgICAgICAgICAgICAgICAgICAgICAgICAgICAgICAgICAgICAgICAgICAgICAgICAgICANCiAgICAg ICAgICAgICAgICAgICAgICAgICAgICAgICAgICAgICAgICAgICAgICAgICAgICAgICAgICAgICAgICAg ICAgICAgICAgICAgICAgICAgICAgICAgICAgICAgIC AgICANCiAgICAgICAgICAgICAgICAgICAgICAgICAgICAgICAgICAgICAgICAgICAgICAgICAgICAgIC AgICAgICAgICAgICAgICAgICAgICAgICAgICAgICAgICAgICAgICAgICAgICANCiAgICAgICAgICAgIC AgICAgICAgICAgICAgICAgICAgICAgICAgICAgICAg ICAgICAgICAgICAgICAgICAgICAgICAgICAgICAgICAgICAgICAgICAgICAgICAgICAgICAgICANCiAg ICAgICAgICAgICAgICAgICAgICAgICAgICAgICAgICAgICAgICAgICAgICAgICAgICAgICAgICAgICAg ICAgICAgICAgICAgICAgICAgICAgICAgICAgICAgIC AgICAgICANCiAgICAgICAgICAgICAgICAgICAgICAgICAgICAgICAgICAgICAgICAgICAgICAgICAgIC AgICAgICAgICAgICAgICAgICAgICAgICAgICAgICAgICAgICAgICAgICAgICAgICANCiAgICAgICAgIC AgICAgICAgICAgICAgICAgICAgICAgICAgICAgICAg ICAgICAgICAgICAgICAgICAgICAgICAgICAgICAgICAgICAgICAgICAgICAgICAgICAgICAgICAgICAN CiAgICAgICAgICAgICAgICAgICAgICAgICAgICAgICAgICAgICAgICAgICAgICAgICAgICAgICAgICAg ICAgICAgICAgICAgICAgICAgICAgICAgICAgICAgIC AgICAgICAgICANCiAgICAgICAgICAgICAgICAgICAgICAgICAgICAgICAgICAgICAgICAgICAgICAgIC AgICAgICAgICAgICAgICAgICAgICAgICAgICAgICAgICAgICAgICAgICAgICAgICAgICANCjw/eHBhY2 ktdQXkinM4I9nqWx9XEe4DMF6ie0KxPISxSTovyoPk YawVUgBjCKEeMdmEMxo9TGqbPQ9YmGJhT6JlK0AvOYzfCP9VLTLyGVTvyFFeHHFxKUEmEwK4NUAeYDle QU4NbOZhYNojODBzIDSxHfTdKNVoKRZaRQLcBKDfECUXKHFtHERvLvNrDZOpXVKrYFcrHJJHJJJ0BHKc GyUmIMGsBCDhYgYsKTTPQGW5NDSxGkFdHFaqRU7Mo8 IfaCDxXY9UHv7KNkBcBL3whr5JTAKjEONzZsfMLxs1AAjtFS1XvXEkrHL7JgZnLQHGZySmX8exn9PhHG HbBAXADLfhAN9Zn7GwwUYcWZb+Lk8PDD0xs7PyJDw1ZgUyTT6hlt2PNTxJXuFgG9PyeGwqLNQpajU8uE UeLET3LOP0PFLoHB5dYRFBGCGqp79wNNWVZoYbiWRg HG7dCl5zTQFxFXZ9RjL0CGKUXA3KXOLgKVZnwKOcZGTcBYUSKN7BMZrcNNI7MKBdzyNyeMAeMRzmHD1D YXJlbnQgNTEgMCBSDQo+Vj0NYQ2qu5YzZGc3WkUkUM1uqu3SBPnCFpMnH1A3mCVfL5W0VQlxJy6DKCLn VKDbJQojQRDYRWepRT5NHS9mkoD9WW3CwPZuGXJbVI IehKArQEi6Q27mzLWtAXvvGI8LXTX+Dulce+Xn3NRNOcVFKhQPKdNtVaFBYSBmXtG0SrB6BHw1DcE2TeEO 48wPjcxxDnNOgwDF8XAE3hEYEzJZTEXD4WrAKpwX1suyT8VYRmKYEWNeWxF69bmGVmBSDuSROaATSdYp 7FWLWyM9TfcwXsoIitmrJfTOSuSVLVDH5RUCkdibAy wVYlvFmzFO22aSquCX8BNa2UKwCgSE2yjq0EhBPvHd2ELRX3PH8FUDBaZMNkAFApSWK7YDCkAvUqFXpq CVRoFZEgHUA7FFGqZYUvAK1LVwRrVUEyCBT5CPwdYEQtIVLzno4HBEXoAZC6CaZ2KpPfFYMfCGAfKSbx ZAZxEHXbTDF0UVSpMVSzGJ8FGbRqZLQaDMD5VBSjHW NrTYLiah1CYIJbYXFgVyh0QVAeRTYaDQAiBZjyWNMvPBC9PBntJLOyRGSzAW7TOjFdPFNnOAf5OCCxFD OxDZMhiz0TIBXaUDJsLZf7INImLMXlTWDxGYcqSEQrWYH1NMY1GIKxIXSjDE1XNlCyCITjQCG0EsZgUQ QzMKYpks6DNBFoNZItKdxzQrXyMLYvKYYuAEntWYGy NTQ9UNX3VTYpTXTnDQ2QReFtUFLbIOQ5NpUmGRVzVNMnsq6IDPVwZPIrPea2YyAaERTbKMVjSBbiHPKm PPQ7XXbfOVNzMPFaPH1FNoXoUIWhRwMpVCTtODGdJNMhxl7WLARbMOZnIZI9GpMtCLEsFMNcMGixNNIi MGKtIBO0RLGpJJEsRA1UJyFxIDSbBgKiZoOjBMMxJS Bjpb8QIOBsLFQnHyZpZrDwDGXcQUZzFUrnJULfLTV0ZeWfYHAaSNUkSU5TFcVkBUHkZbGvVUGzYHToBJ Wsyk6MAXOsWGCtBKP5ZXGjWHHoKXFzKBuoDNVgAUToYzR2XKEmQGIjWR8TPtQnBIWwOkL7WzMiCHAkJV Bknu0HVSUyIJFmZgB2OgSeWIYoTVCoODptSQTwZBFv PNosFCIlOVQvQM6ACuIlFMFtWqY7ZxArSEZkHSMrhn9IXIZfGOZzZTohEkQfANWzSKCcPLwpOAQqAEA9 FLH8YBWeKSFkJA4LMaEfFGAcMeUyHCMyFQVpQKYecm0VFSXjLBPyByT2JeAyANHmOKLqHJukSTYgOSP3 CwS6KGLtMWFmEU3GGmUmXZQgDoM0ATQiXUEiIRSfgo 3SDVWzBVE1UTTfUGIoYOXcBDUhKUvvXNLeTEOnAjJ4XMVhQZTzEK8IBzLfOTTpLVO6GimxIQJsDZIhim 2FCSNhYVB6HvR9OgHuMILtHHObYVysRENgWTHqWkV9XFGnAQYkNL8KIpWaFCOnTRVuMnwoMGToEGUujk 9ETJDuGIH2IjF4LbQqHWRnAMJyFZlvWPGkTAYbBIO5 NSLpPMGkTV4PGbYrAPHnSEJ9NvybJPWdGERavm7KMYKfOMR3UNM1NSIyGZKsZXJtZUioHGEhHOJ3IVLh BQAfZHQhPO4VZdJtLBLbVIHcYuGgTUMtDFEcgg6WGAHrUHU9YIVmCKIbFQRtJQMhGCbjXEDtTTA6GKQ4 HZZwTLGmSD8PHqIkIPGvKJJ5NaPlPOUhPZYdda1XHY JfWDI2VnHpIRNeRQTyPKQnMEhsUICzOBV7NIOeVZReXSLuQF0DSvNwYMUoIKs3XEjyWQVhKQKxoo2SxH DioFrwku4ETBhIRv5BlTnyMMA2YBpdZc9usBF8GvVeYYJYDe2TwjDdTGQyOGRINWegIGBxXENzOTlyQu C9LkLiNiS9DLWbWeHeHYbtXIHcPwWfZDH1BuY1NqTz SANmCOYiDLJ2LkX3HQP8OFS8CDGpVUI5PTW3XyJ+UH2iQUh+Mk4Sx2TjneC0alKwEDn8AsvaHN0TDNIJ T0YNCg== ID Date Data Source [id number] 04/01/2020 10:19:24 AM EDT [facility] Name Value Range Interpretation Code Description Data Sudha rce(s) Supporting Document(s) [facility] RUBOAo7xKoJLIzZbh5KcMuDvTRPmFY4mjjd9G0K1fZJhB4XkvTZsx1ggC2KuN5EkDMFdMXUHUK7CeUWk jb2 [file] oCPJkTpbJRu1Vsf0xsQtlVioYaF2FbgqzsmX35EO9a76Kf+JOSÉ/NJaOP591VtVR6crP9hP0hWAnnbHEn [file] Xe0Jb200QFVcOHMXUbg+XoabiPVwwLskKNOJHaD0ImJQKFIXX8C= ID Date Data Source [id number] 04/01/2020 06:12:[address] [facility] Name Value Range Interpretation Code Description Data Sudha rce(s) Supporting Document(s) Consultation [facility] HADAWd6xKvXHMtQn26/NBSftSQRii8XwUOgbKEp1DUdnDDYbG2PqBWK3nL6dGJZ9OAyZXxPjBcNaUFX8 lbm [file] 0gDQo+Xl9Qk1ElbuH4gnRdNFafYCQxUW1EUPVOV5UZCx== ID Date Data Source [id number] 03/31/2020 11:05:[address] [facility] Name Value Range Interpretation Code Description Data Sudha rce(s) Supporting Document(s) Consultation [facility] MGHTXr9jTtGQDyMh97/DGCrlUGArm6CeNTaaSYm7MMgmXQCtF6FnDKW5gL5cMGJ0AHfAGdZiByZaVNH9 lbm [file] ApVa3JQXWUB5HDWy== ID Date Data Source [id number] 03/31/2020 08:48:[address] [facility] Name Value Range Interpretation Code Description Data [facility](s) Supporting Document(s) Color of Urine [facility] Clarity of Urine [facility] Specific gravity of Urine by Refractometry automated 1.019 1.003 -1.030 [facility] pH of Urine by Automated test strip 6.0 5.0-8.0 [facility] Protein [Mass/volume] in Urine by Automated test strip 100 mg/dL Neg [facility] Glucose [Mass/volume] in Urine by Automated test strip Neg [facility] Ketones [Mass/volume] in Urine by Automated test strip Neg [facility] Bilirubin.total [Presence] in Urine by Automated test strip Negative [facility] Hemoglobin [Presence] in Urine by Automated test strip Neg ative A [facility] Leukocyte esterase [Presence] in Urine by Automated test strip Negative [facility] Nitrite [Presence] in Urine by Automated test strip Negati ve [facility] Leukocytes [#/area] in Urine sediment by Automated count 42 /HPF 0 -5 H [facility] Erythrocytes [#/area] in Urine sediment by Automated count 23 /HPF 0-3 H [facility] Epithelial cells.squamous [#/area] in Urine sediment by Auto mated count 45 /HPF None [facility] Mucus [#/area] in Urine sediment by Microscopy low power field None [facility] ID Date Data Source [id number] 03/31/2020 09:14:20 PM [facility] Name Value Range Interpretation Code Description Data Sudha rce(s) Supporting Document(s) Amphetamine [Presence] in Urine by Screen method Negative [facility] Benzodiazepines [Presence] [facility] Cann[facility]oids [Presence] in Urine by Screen method Negative [facility] Benzoylecgonine [Presence] in Urine [facility] Methadone [Presence] in Urine by Screen method Negative [facility] Opiates [Presence] in Urine by Screen method Negative [facility] Oxycodone [Presence] in Urine by Screen method Negative [facility] Fentanyl+Norfentanyl [Presence] in Urine by Screen method Negative [facility] Service comment [facility] Results below the indicated cutoff (ng/m L), are reported as"Negative." Note: for medical purposes only; not valid for legalor employment testing. ID Date Data Source [id number] 03/31/2020 08:03:29 PM [facility] Value Range Interpretation Code Description Data Sudha rce(s) Supporting Document(s) Leukocytes [#/volume] in Blood by Automated count 13.6 10*3/uL 4-10 H [facility] Erythrocytes [#/volume] in Blood by Automated count 4.10 10*6/uL 4.1- 5.3 [facility] Hemoglobin [Mass/volume] in Blood 12.0 g/dL 11.5-15.5 [facility] Hematocrit [Volume Fraction] of Blood by Automated count 36.7 % 3 6-45 [facility] Erythrocyte mean corpuscular volume [Entitic volume] by Auto mated count 89.6 fL 80-96 [facility] Erythrocyte mean corpuscular hemoglobin [Entitic mass] by Automated count 29.3 pg 27-33 [facility] Erythrocyte mean corpuscular hemoglobin concentration [Mass/volume] by Automated count 32.7 g/dL 32.0-[facility] width [Ratio] by Automated count 12.5 % 11.5-14.5 [facility] Platelets [#/volume] in Blood by Automated count 347 10*3/uL 150-400 [facility] Differential cell count method - Blood [facility] Neutrophils/100 leukocytes in Blood by Automated count 67 % [facility] Lymphocytes/100 leukocytes in Blood by Automated count 28 % [facility] Monocytes/100 leukocytes in Blood by Automated count 5 % [facility] Eosinophils/100 leukocytes in Blood by Automated count 0 % [facility] Basophils/100 leukocytes in Blood by Automated count 0 % [facility] Neutrophils [#/volume] in Blood by Automated count 8.96 10*3/uL 1.8-7 .0 H [facility] Lymphocytes [#/volume] in Blood by Automated count 3.78 10*3/uL 1.2-4 .0 [facility] Monocytes [#/volume] in Blood by Automated count 0.73 10*3/uL 0-0.8 [facility] Eosinophils [#/volume] in Blood by Automated count 0.03 10*3/uL 0-0.5 [facility] Basophils [#/volume] in Blood by Automated count 0.05 10*3/uL 0-0.2 [facility] Nucleated erythrocytes/100 leukocytes [Ratio] in Blood by Automated count 0 /100{WBCs} 0-0 [facility] ID Date Data Source [id number] 03/31/2020 08:13:12 PM [facility] Name Value Range Interpretation Code Description Data Sudha rce(s) Supporting Document(s) aPTT in Platelet poor plasma by Coagulation assay 25.5 s 24.0-33. 0 [facility] ID Date Data Source [id number] 03/31/2020 08:27:10 PM [facility] Name Value Range Interpretation Code Description Data Sudha rce(s) Supporting Document(s) Acetaminophen [Mass/volume] in Serum or Plasma 10.0-30.0 L [facility] ID Date Data Source [id number] 03/31/2020 08:27:10 PM [facility] Value Range Interpretation Code Description Data Sudha rce(s) Supporting Document(s) Bicarbonate [Moles/volume] in Serum 25 mmol/L 22-29 [facility] Chloride [Moles/volume] in Serum or Plasma 105 mmol/L 98-107 [facility] Creatinine [Mass/volume] in Serum or Plasma 0.53 mg/dL 0.50-0.90 [facility] Glucose [Mass/volume] in Serum or Plasma 83 mg/dL 70-140 [facility] Potassium [Moles/volume] in Serum or Plasma 3.8 mmol/L 3.4-5.1 [facility] Sodium [Moles/volume] in Serum or Plasma 141 mmol/L 136-145 [facility] Urea nitrogen [Mass/volume] in Serum or Plasma 11 mg/dL 6-20 [facility] Anion gap 3 in Serum or Plasma 12 mmol/L 8-15 [facility] Osmolality of Serum or Plasma by calculation 291 mosm/kg 275-300 [facility] Creatinine/Urea nitrogen [Mass Ratio] in Serum or Plasma 21 [facility] Calcium [Mass/volume] in Serum or Plasma 9.1 mg/dL 8.6-10.0 [facility] Glomerular filtration rate/1.73 sq M pre dicted among non-blacks [Volume Rate/Area] in Serum or Plasma by Creatinine-based formula (MDRD) >6 0 [facility] Glomerular filtration rate/1.73 sq M pre dicted among blacks [Volume Rate/Area] in Serum or Plasma by Creatinine-based formula (MDRD) >60 [facility] ID Date Data Source [id number] 03/31/2020 08:27:10 PM [facility] Value Range Interpretation Code Description Data Sudha rce(s) Supporting Document(s) Ethanol [Mass/volume] in Serum or Plasma Negative [facility] ID Date Data Source [id number] 03/31/2020 08:27:10 PM [facility] Value Range Interpretation Code Description Data Sudha rce(s) Supporting Document(s) Thyrotropin [Units/volume] in Serum or Plasma 2.530 u[IU]/mL 0.270-4. 200 [facility] ID Date Data Source [id number] 03/31/2020 08:27:10 PM EDT [facility] Name Value Range Interpretation Code Description Data Sudha rce(s) Supporting Document(s) Salicylates [Mass/volume] in Serum or Plasma 3.0-30.0 L [facility] ID Date Data Source [id number] [facility] Interpretation Code Description Data Sudha rce(s) Supporting Document(s) Choriogonadotropin.beta subunit free [Units/volume] in Serum or Plasm a <5 [facility] (NOTE)Levels between 5 and 25 [IU]/L may indicate earlypregnancy and should be repeated after 48 hours. ID Date Data Source [id number] 03/30/2020 02:11:[address] [facility] XR CHEST FRONTAL AND LATERAL [id number] RESULTInterpreted by:Akin Skelton, RADHA JeffersonINDICATION: 25-year-old female with history of chest pain.TECHNIQUE: Chest radiograph frontal and lateral view 75 degrees upright. COMPARISON: Chest radiograph frontal view portable 60 degrees upright dated 01/30/2020. FINDINGS: The chest wall is normal in appearance. There is levoscoliosis of thoracic spine.The mediastinal contours are normal.There is no pleural effusion or pneumothorax. The lungs are clear.IMPRESSION: There is no acute chest disease.This document has been electronically signed by Akin Skelton MD on 03/30/2020 2:09 PM Name Value Range Interpretation Code Description Data Sudha rce(s) Supporting Document(s) ID Date Data Source [id number] 03/30/2020 10:57:[address] [facility] Name Value Range Interpretation Code Description Data Sudha rce(s) Supporting Document(s) EKG [facility] JMITQg8tBnVHAyRzy4XfOqEeVUKhJH3grcg5F7F7nPAtO0KrjSKwp3luZ0OtW5ZqSOIaDGGWUN5BjQBp jb2 [file] wcGNQ1Sk8FnoKxKTCqBVLVYc8Nw209WQMpWEZDWwv+YhbfhDWdjFxlBMVUMrEqRbkADWSFC8F= ID Date Data Source [id number] 03/29/2020 08:11:[address] [facility] Name Value Range Interpretation Code Description Data Sudha rce(s) Supporting Document(s) ED Provider Note [facility] MGZWWw8wOcDAMrDd65/PUPmwYRIvu4BpQReiRQy0AEmxOAMwJ0ZuQTG4jE4hFKH6IDdSVfKwVwMzDBZ9 lbm [file] ID Date Data Source [id number] 03/25/2020 12:37:[address] [facility] Service Cmnt XXX-Imp : NoneMicroorganism XXX Cult : No beta hemolytic Streptococcus group A isolated Name Value Range Interpretation Code Description Data Sudha rce(s) Supporting Document(s) ID Date Data Source [id number] 03/23/2020 08:35:[address] [facility] Name Value Range Interpretation Code Description Data Sudha rce(s) Supporting Document(s) ED Provider Note [facility] SVEJXq6wJvAGJtVd42/DSVwcXLNiz4KzNZtbADb5LZvfXGIhQ9MqPDJ3dA0sHZX6GXaDYiTrWqOrCUJ9 lbm [file] TzCaQrI4GZdkBCZCFg7R ID Date Data Source [id number] 03/23/2020 05:45:[address] [facility] Name Value Range Interpretation Code Description Data Sudha rce(s) Supporting Document(s) ED Provider Note [facility] TNSIIs7oFqCIJmMv07/DMFwvRXJvz1JkSMglNOc2MCepWXHdE8YwIRW4nQ5zSKR5UJnLEgNpAkXxUBN1 lbm [file] phoenix+U6+/9N2/J+2y3/twR8O5jP9w/Dzcdv5cVmOvpIH+LxNbKhbLrE2JESnBnL6Z/sd3M/QDMsyo6obGM Snqeq+Yl2a8/iVHdzSQU6hoY2nkhViHLr1VBG3Xboc7DA968bi0s1ZS4qo3O0v5/b6HO/PzYbnW26LiP 9pKfWyac1IJ+kZhWw1bmvuR9L4t74+j1klK8xuDW6r 9Z8wpHSH+br1W+Qg3USH0i+F25JGUZtbElw4SUz9yB1sj0IT6sR2nOrC3+HX3xLKv9usyzD1amT02C14 dioeYNt8cFss8qS+gzj3RRjmmqdKzy3S0IGmkg6DhcpHkZp4aHoS4gOpt6IOfcjgP93so2R5M6a3Ik+B 0psFlcnjtXpt66a/hu/EPFaEMifUx1fUsD53mi8j81 dT+0uzoMc/IJ+6+2N0jhgAmbJqR0aDUBcbkXTjTvBGD7N6o6ZiaLMFyoHSDS6jLUIdYY63tBsTzzi5Vx 2i4xWh3Z9NlRGNbLeY96epAi+FfvIT+AFNh/9CSFRdmxMfUc8jqRXbic30keczT4zlD5wxwWddz7Xy0C axw6gWVY1kv0gswmOvzRtEyCB+MdLtstfvvK/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 Name Value Range Interpretation Code Description Data Sudha rce(s) Supporting Document(s) ED Provider Note [facility] WYJOWh4wNyRRHmLf37/GFXrvISNen1LdTEklJRv2YBbzIPZxU1LdLPA6jP5bWQG4UAoORsYeZrTfEXN0 lbm [file] pgE0auPgRLfhOFz8DHRMTzStSD4HYVv= ID Date Data Source [id number] 02/29/2020 01:36:00 PM EDT [facility] [address] [place] [address] HEALTH INFORMATION MANAGEMENT [facility] Consultation : [id number] Signed Patient: Amy Carranza Acct:[id number] Unit: [id number] : 1995 Loc: ED Room/Bed: Age/Sex: 25 / F ADM Date: 02/28/20 cc: [facility] Psychiatric Adult Consult Psychiatric Consult Consult Date: 02/29/20 Consult called by: Dr. Bowen Length Consult of Service: 25 minutes Location of consult: ED Chief Complaint Identifying Data: 25-year-old Caucas mary female, no kids, on SSD, currently living with her Au Chief Complaint: "Better now" History of Present Illness: Amy is a 25-year-old female with history of depression and disability consulted due to worsening agitation. Patient apparently was found in a local store hitting her head on the wall and stating that she will not kill herself. Psych consult was requested and on evaluation patient stated she is okay with her medications and does not have any thoughts of harming herself or others. She was recently discharged on 02/28/2020 from the inpatientunit. She ready have schedule follow up with outpatient services from her discharge. No other depressive or anxiety symptoms, no manic or psychotic symptoms, no substance abuse reported. PMH/PSH Medical History (Updated 02/29/20 @ 02:42 by Janett Kim MD) Anxiety Depression Seizure disorder Surgical History No pertinent past surgical history (Surgical) Family History Paternal Grandfather No problems noted. Paternal Grandmother Stroke PSYCHIATRIC HISTORY Primary Care/Psychiatrist Primary Care Physician: Perri Current Psychiatrist: None Current Psychotherapist: none Psychiatric Treatment History Has the patient ever been hospitalized for mental health problems in the past?: Yes Ever been hospitalized for alcohol/substance abuse: No Was patient discharged from this hospital in last 30 days?: No ANY type of treatment for mental health or alcohol/substance abuse in the past 6 months?: Yes Has the Patient Been Treated in the Following Settings for Mental Health or for Alcohol/Substance Abuse in the last 30 days Partial Hospital/Day Treatment/IOP for Mental Health: No Outpatient Services for Mental health: Yes [facility] Health: No Partial Hospital/Day Treatment/IOP for Alcohol/Substance Abuse: No Alf/Rehabilitation Center for Alcohol/Substance Abuse: No Outpatient Services for Alcohol/Substance Abuse: No Prior Hospitalizations, Outpatient Treatments, Significant Psych/Medical History of Family, PhysicalLimitations: history of depression and intellectual disability. History of 2 inpatient psychiatrichospitalizations. No history of suicidal attempts or self-mutilation in the past. No history of legal charges. No history of problems with drugs. No history of physical, emotional or sexual abuse. Her brother have mental illness but no suicidal attempts in the family. No problems with drugs in the family. Patient currently does not have any therapist or psychiatrist and is not taking any medications. Social History History of Smoking/Tobacco Use: Never Smoker Social History Other: 25-year-old female currently on disability, living with her Aunt Occupation: On [employer] Lives with: Reports Alone Any firearms in the home: No Legal History: None Mental St atus Exam Appearance 25-year-old female dressed in hospital gown with fair skin and long black hair Orientation Oriented to person, Oriented to place, Oriented to time and Oriented to situation Eye contact Fair Gait and station Normal Grooming Well groomed Attire Appropriate Stature/Built Stature Average height and Built Obese Posture Head lowered Psychomotor activity Within normal limits Involuntary movements None observed Attitude toward examiner Cooperative Mood (Patients words) Mood: Yes depressed Affect (Providers observation) Depressed Speech/Language Normal rate Rhythm: Normal rhythm Volume: Soft Thought content Reports Other (No SI or HI; no delusions elicited) Thought process Reports Coherent Perception Other (No auditory or visual hallucinations) Associations Intact Intelligence estimate Intellectual disability Fund of knowledge Below average Memory Past intact and Recent intact Insight Fair Judgment Poor Danger to Self Danger to self: None reported/observed Danger to Others Danger to other: None reported/observed High Risk Considered high risk: No Is safety plan in place: Yes Assessment/Plan Labs Result Diagrams: 02/28/20 21:06 02/28/20 21:06 (1) Depressive disorder: Code(s): F32.9 - Major depressive disorder, single episode, unspecified Status: Acute (2) Intellectual disability: Code(s): F79 - Unspecified intellectual disabilities Status: Acute Recommendations/Plan Assessment: Amy is a 25-year-old female with history of depression and intellectual disability consulted due to worsening agitation. Plan: On evaluation patient is not suicidal or homicidal at the moment. She is more common comparative. She can be discharged to follow up with outpatient services appointments already set up from her discharge. No medication changes. Family can be contacted for her to return back home by the staff at the emergency department. [facility] Suicide Severity Rating Suicidal Ideation/Behavior Prompts 1.Wished you were or could go to sleep and not wake up?: No 2.Have you actually had any thoughts of killing yourself?: No 3.Have you been thinking about how you might kill yourse lf?: NA 4.Had these thoughts and some intention of acting on them?: NA 5.Work out details how kill yourself? Intend carry out plan?: NA 6.Ever done, started to do, prepared anything to end life?: No 7.How long ago did you do any of these?: N/a [facility] Inpatient PQRS [facility] Inpatient PQRS REVIEWED Did you review PQRS this visit?: N/A [facility] Consult Charges Charges Did you complete your charges?: Yes Telehealth Was this Consult done via TeleHealth?: No ER Consults [facility] ED Consults: [id number] ER Consult Detailed 25 mins Signed By:Theodore Conte MD <<Signature on File>> Signed Date/Time: 02/29/20 1344 Co-Signer: Co-Signed Date/Time: Initializing User: Theodore Conte MD [id number] Name Value Range Interpretation Code Description Data Sudha rce(s) Supporting Document(s) ID Date Data Source [id number] 02/28/2020 09:27:00 PM EDT [facility] Has Patient Fasted For The Past 12 Hour s? N Has Patient Fasted For The Past 12 Hour s? N Has Patient Fasted For The Past 12 Hour s? N Has Patient Fasted For The Past 12 Hour s? N Name Value Range Interpretation Code Description Data Sudha rce(s) Supporting Document(s) WHITE BLOOD COUNT 13.13 10^3/uL 4.00-10.50 [facility] RED BLOOD COUNT 4.21 10^6/uL 3.90-5.20 N [facility] HEMOGLOBIN 12.6 G/DL 11.5-15.6 [facility] HEMATOCRIT 37.3 % 35.0-46.0 [facility] MCV 88.6 FL 80.0-100.0 [facility] MCH 29.9 PG 27.0-34.0 [facility] MCHC 33.8 G/DL 32-36 N [facility] RDW 12.2 % 11.5-14.5 [facility] PLATELET COUNT 335 10^3/uL 130-400 N [facility] MPV 9.9 FL 8.7-13.2 N [facility] GRAN % (AUTO) 67.7 % 42.0-75.0 [facility] LYMPH % (AUTO) 26.2 % 20.0-51.0 [facility] MONO % (AUTO) 4.9 % 2.0-15.0 [facility] EOS % (AUTO) 0.8 % 0.0-11.0 [facility] BASO % (AUTO) 0.2 % 0.0-2.0 [facility] IG % (AUTO) 0.2 % 1.00-5.00 [facility] IG # (AUTO) 0.0 10^3/uL <0.5 [facility] GRAN # (AUTO) 8.88 10^3/uL 1.50-6.50 [facility] LYMPH # (AUTO) 3.4 k/uL 1.0-5.0 [facility] MONO # (AUTO) 0.64 k/uL 0.20-1.50 [facility] EOS # (AUTO) 0.11 10^3/uL 0.00-1.10 [facility] BASO # (AUTO) 0.03 10^3/uL 0.00-0.20 N [facility] ID Date Data Source [id number] 02/28/2020 10:00:00 PM [facility] Has Patient Fasted For The Past 12 Hour s? N Has Patient Fasted For The Past 12 Hour s? N Has Patient Fasted For The Past 12 Hour s? N Has Patient Fasted For The Past 12 Hour s? N Name Value Range Interpretation Code Description Data Sudha rce(s) Supporting Document(s) SODIUM 139 MEQ/L 135-145 N [facility] POTASSIUM 4.0 MEQ/L 3.5-5.3 N [facility] CHLORIDE 106 MEQ/L 94-110 N [facility] CARBON DIOXIDE 26 MEQ/L 22-33 N [facility] ANION GAP 11 5-16 N [facility] BLOOD UREA NITRO 13 MG/DL 7-25 N [facility] CREATININE 0.6 MG/DL 0.6-1.4 N [facility] GFR > 90.0 ML/MIN [facility] Stage G1 - Normal or high kidney functi on The GFR is an estimate of the Glomerular Filtration Rate. It is an aid to assess a patient's renal function. It is not a conclusive diagnosis of kidney disease. GFR normal is >=90 The MDRD GFR calculation is considered valid between the ages of 18 and 75 years only. BUN/CREAT RATIO 21 8-36 [facility] GLUCOSE 110 MG/DL 70-100 H [facility] CA 9.3 MG/DL 8.7-10.5 [facility] BILIRUBIN,TOTAL 0.3 MG/DL 0.1-1.3 [facility] AST 32 U/L 5-40 N [facility] ALT 65 U/L 5-48 H [facility] ALKALINE PHOSPHATASE 97 U/L 40-140 [facility] alth TOTAL PROTEIN 6.4 G/DL 5.9-8.3 N [facility] ALBUMIN 4.5 G/DL 3.0-5.1 [facility] GLOBULIN 1.9 G/DL 1.5-3.5 [facility] ALB/GLOB RATIO 2.4 G/DL 1.0-3.0 [facility] ID Date Data Source [id number] 02/28/2020 10:00:00 PM [facility] Has Patient Fasted For The Past 12 Hour s? N Has Patient Fasted For The Past 12 Hour s? N Has Patient Fasted For The Past 12 Hour s? N Has Patient Fasted For The Past 12 Hour s? N Name Value Range Interpretation Code Description Data Sudha rce(s) Supporting Document(s) SALICYLATE < 3.0 MG/DL 2.8-20.0 N [facility] ID Date Data Source [id number] 02/28/2020 10:00:00 PM [facility] Has Patient Fasted For The Past 12 Hour s? N Has Patient Fasted For The Past 12 Hour s? N Has Patient Fasted For The Past 12 Hour s? N Has Patient Fasted For The Past 12 Hour s? N Name Value Range Interpretation Code Description Data Sudha rce(s) Supporting Document(s) ACETAMINOPHEN < 2.0 UG/ML 10-30 L [facility] High levels of N-acetylcysteine (used t o treat Acetaminophen overdose) may cause interference and cause a negative bias in the Acetaminophen result. ID Date Data Source [id number] 02/28/2020 10:00:00 PM [facility] Has Patient Fasted For The Past 12 Hour s? N Has Patient Fasted For The Past 12 Hour s? N Has Patient Fasted For The Past 12 Hour s? N Has Patient Fasted For The Past 12 Hour s? N Name Value Range Interpretation Code Description Data Sudha rce(s) Supporting Document(s) BLOOD ALCOHOL < 0.03 % <0.03 [facility] ID Date Data Source [id number] 02/28/2020 09:09:00 PM [facility] Has Patient Fasted For The Past 12 Hour s? N Has Patient Fasted For The Past 12 Hour s? N Has Patient Fasted For The Past 12 Hour s? N Has Patient Fasted For The Past 12 Hour s? N Name Value Range Interpretation Code Description Data Sudha rce(s) Supporting Document(s) HCG QUALITATIVE SPECIMEN URINE [facility] ID Date Data Source [id number] 02/28/2020 09:09:00 PM [facility] Has Patient Fasted For The Past 12 Hour s? N Has Patient Fasted For The Past 12 Hour s? N Has Patient Fasted For The Past 12 Hour s? N Has Patient Fasted For The Past 12 Hour s? N Name Value Range Interpretation Code Description Data Sudha rce(s) Supporting Document(s) HCG RESULT,U NEGATIVE [facility] Reference range is Negative To ensure best sensitivity, first morning void is recommended. Dilute, low specific gravity urine may give a falsely negative result. If is suspected, repeat testing with a new specimen 48-72 hours later. ID Date Data Source [id number] 02/28/2020 09:11:00 PM EDT [facility] Name Value Range Interpretation Code Description Data Sudha rce(s) Supporting Document(s) COLOR,UR RED YELLOW A [facility] APPEARANCE,UR CLEAR CLEAR [facility] PH,UR 7.0 5.0-8.0 [facility] SPECIFIC GRAVITY,UR 1.000 1.002-1.035 [facility] PROTEIN,UR 100 MG/DL NEGATIVE A [facility] GLUCOSE, UR NEGATIVE MG/DL NEGATIVE [facility] KETONES,UR NEGATIVE MG/DL NEGATIVE [facility] OCCULT BLOOD,UR LARGE NEGATIVE A [facility] NITRATE,UR NEGATIVE NEGATIVE [facility] LEUKOCYTE ESTERASE ,UR NEGATIVE NEGATIVE [facility] BILIRUBIN,UR NEGATIVE NEGATIVE [facility] UROBILINOGEN,UR 0.2-1.0 EU MG/DL NEG-0-1.0 [facility] RBC,UR None Seen PER HPF 0-2 [facility] WBC,UR <5 PER HPF <5 [facility] URINE EPITH RARE PER/LPF FEW-MOD [facility] BACTERIA,UR RARE PER HPF NONE [facility] HYALINE CAST,UR RARE PER/LPF NONE SEEN [facility] ID Date Data Source [id number] 02/28/2020 09:14:00 PM EDT [facility] Name Value Range Interpretation Code Description Data [facility] rce(s) Supporting Document(s) OPIATE SCREEN NEG NEGATIVE [facility] Minimum Detectable Limit is 300 ng/mL. BARBITURATE SCREEN NEG NEGATIVE [facility] Minimum Detectable Limit is 300 ng/mL. PHENCYCLIDINE SCREEN NEG NEGATIVE [facility] Minimum Detectable Limit is 25 ng/mL. AMPHETAMINE SCREEN NEG NEGATIVE [facility] Minimum Detectable Limit is 1000 mg/mL. BENZODIAZEPINE SCREEN NEG NEGATIVE [facility] Mininum Detectable Limit is 300 ng/mL. COCAINE SCREEN NEG NEGATIVE [facility] Minimum Detectable Limit is 300 ng/mL. CANNABINOID SCREEN NEG NEGATIVE [facility] Minimum Detectable limit is 50 ng/dL. HEROIN SCREEN NEG NEGATIVE [facility] Minimum Detectable limit is 10 ng/dL. A ll POSITIVE or BORDER results are unconfirmed. Please contact the laboratory if a reference testing confirmation is needed. ID Date Data Source [id number] 02/28/2020 08:39:00 [place] [address] HEALTH INFORMATION MANAGEMENT ED/UC Physician Report : [id number] Signed with Josh Patient: Amy Carranza Acct:[id number] Unit : [id number] : 1995 Arrival Date: 02/28/20 Age/Sex: 25 / F Arrival Time: 2033 Copies to: Harriet Marie DO Psych HPI/ROS General Chief Complaint: Psychiatric Complaint Stated Complaint: Increased Depression Stated Complaint: Increased Depression Source: Patient, EMS, Old records reviewed, RN/MD, RN notes reviewed and I have reviewed available Ancillary/nursing staff documentation Mode of arrival: EMS Limitations: Reports No limitations History of Present Illness Initial Comments: PATIENT WAS DISCHARGED EARLIER TODAY FROM [facility] WORSE SHE WAS ADMITTED FOR SUICIDAL IDEATIONS. SHE DID COME TO THE EMERGENCY ROOM COUPLE OF HOURS AGO FOR A BRIEF EPISODE OF CHEST PAIN WHICH SUBSIDED SPONTANEOUSLY. PATIENT WAS FOUND IN A LOCAL STORE HITTING HER HEAD ON THEWALL STATING THAT SHE WOULD NOT KILL HERSELF. SHE DOES ADMIT BEING SUICIDAL. SHE WAS BROUGHT TO THE EMERGENCY ROOM BY EMS. NO HOMICIDAL IDEATIONS. OTHER COMPLAINTS. Time interval: Hour(s) Associated Psychiatric Symptoms: Reports Depression, Racing thoughts and Suicidal ideation; Denies Auditory hallucinations, Delusions, Homicidal ideation and Visual hallucinations Quality: Reports Changing over time Improves With: Reports None Worsens With: Reports None Context: Reports Significant life stressor; Denies New medication(s), Not taking psychiatric medications, Recent alcohol abuse and Recent drug abuse Associated Symptoms: Reports Denies other symptoms Treatments Prior to Arrival: Reports None If Self Harm: Reports Admits thoughts of self harm, Has acted on plan and Self- inflicted trauma; Denies Gunshot, Has plan and Intentional overdose Related Data LMP (females 10-50): 3 weeks Home Medications Medication Instructions Recorded pantoprazole 40 mg PO DAILY 02/22/20 quetiapine 50 mg PO DAILY 02/22/20 cholecalciferol (vitamin D3) 2,000 unit PO DAILY #30 tab 02/28/20 [Vitamin D3] escitalopram oxalate 15 mg PO DAILY #45 tab 02/28/20 Allergies Penicillins Allergy (Verified 02/28/20 23:59) ADDITIONAL UNSPECIFIED Review of Systems Review of Systems All systems: Reviewed and negative except as stated in HPI. Psychiatric: Reports Anxiety, Depression and Suicidal; Denies Homicidal Immunizations Immunizations Up to Date: Yes Tetanus Status: Up to Date Social History Social History Other: States that she is single and lives alone. History of Smoking/Tobacco Use: Never Smoker Alcohol use: Reports None Drug use: Reports None Occupation: On [employer] Lives with: Reports Alone PMH/PSH Medical History (Updated 02/29/20 @ 02:42 by Janett Kim MD) Anxiety Depression Seizure disorder Surgical History No pertinent past surgical history (Surgical) Family History Paternal Grandfather No problems noted. Paternal Grandmother Stroke Physical Exam Physical Exam Physical Exam: HEENT: PERRLA. MUCOSA MOIST. NO PALLOR, NO CYANOSIS, NO JAUNDICE, JVD FLAT, NO FACIAL ASYMMETRY, NO CAROTID BRUITS. EAR/ THROAT/SINUS WNL. NECK SUPPLE. NO THYROMEGALY. NO OBVIOUSSIGNS OF HEAD INJURY. CHEST: CLEAR, NO RALES, NO RHONCHI, NO RUBS. HEART: REGULAR, NO GALLOP OR MURMUR. ABD: LAX, NO RIGIDITY OR TENDERNESS. NO MASSES.+BS. EXT: NO EDEMA OR CLUBBING OR TREMORS. NO SIGNIFICANT SIGNS OF SELF-INFLICTED WOUNDS. TUB WASHER: A/OX3, GROSSLY INTACT. PSYCH: ANXIOUS, DEPRESSED, WITHDRAWN. SKIN: DRY, NO RASH, NO SIGNIFICANT LESIONS. Course Course Course Narrative: I DID DISCUSS THE CASE WITH CARMELO VIRGEN NP WHO KNOWS HER FROM BEFORE AND AGREED TO KEEP THE PATIENT IN THE EMERGENCY ROOM DUE TO LACK OF BEDS AT [facility] AND SHE WILL SEE HER INTHE MORNING FOR FINAL DISPOSITION. PATIENT IS STABLE TO STAY IN THE EMERGENCY ROOM TILL THE MORNING. I DID ENDORSE THE CASE TO THE MORNING SHIFT TO FOLLOW-UP WITH PSYCH SERVICE FOR FINAL DISPOSITION. Medical Decision Making/CCT EKG Interpretation Complete If EKG was done has it been read?: N/A Lab Data Result diagrams: 02/28/20 21:06 02/28/20 21:06 Hyperglycemia Identified Hyperglycemia identified in patient?: No Critical Care Time Critical Care Time: No Discharge Plan Disposition Clinical Impression: Threatening suicide, Intellectual disability Provider stated Dispo: Still a Patient Prescriptions: No Action pantoprazole 40 mg tablet,delayed release (DR/EC) 40 mg PO DAILY RF: 0 quetiapine 50 mg tablet 50 mg PO DAILY RF: 0 escitalopram oxalate 10 mg Tablet 15 mg PO DAILY Qty: 45 RF: 0 cholecalciferol (vitamin D3) [Vitamin D3] 25 mcg (1,000 unit) Tablet 2,000 unit PO DAILY Qty: 30 RF: 0 Referrals: Harriet Marie DO [Primary Care Provider] - Transition of Care Transition of Care Transition of Care: PATIENT CONTINUED TO BE HEMODYNAMICALLY STABLE IN THE EMERGENCY ROOM WITHOUT NEW COMPLAINTS OR NEW CHANGES IN GENERAL CONDITION. PATIENT WAS ENDORSED TO THE FOLLOWING PROVIDER TO FOLLOW-UP CLINICALLY WELL PSYCH WORKUP RESULTS. Transition of Care to Provider (name):: THE A.M. SHIFT Date/Time <<Signature on File>> Initializing User: Janett Kim MD 02/28/202038 Signed by: Janett Kim MD 02/29/20 0243 ADDENDUM Discharge Plan Disposition Clinical Impression: Threatening suicide, Intellectual disability Provider stated Dispo: Discharged Condition: Stable Instructions: Mood Disorders (ED) Activity Restrictions/Additional Instructions: follow-up as previously instructed Prescriptions: No Action pantoprazole 40 mg tablet,delayed release (DR/EC) 40 mg PO DAILY RF: 0 quetiapine 50 mg tablet 50 mg PO DAILY RF: 0 escitalopram oxalate 10 mg Tablet 15 mg PO DAILY Qty: 45 RF: 0 cholecalciferol (vitamin D3) [Vitamin D3] 25 mcg (1,000 unit) Tablet 2,000 unit PO DAILY Qty: 30 RF: 0 Referrals: Harriet Marie DO [Primary Care Provider] - Patient agreeable to discharge: Patient/Guardian understands and is agreeable to discharge plan Addendum Signed By: Fabian Bowen MD <<Signature on File>> Signed Date/Time: 03/03/2005 Addendum Co-Sign By: Co-Sign Date/Time: ADDENDUM Discharge Plan Disposition Clinical Impression: Threatening suicide, Intellectual disability Provider stated Dispo: Discharged Condition: Stable Instructions: Mood Disorders (ED) Activity Restrictions/Additional Instructions: follow-up as previously instructed Prescriptions: No Action pantoprazole 40 mg tablet,delayed release (DR/EC) 40 mg PO DAILY RF: 0 quetiapine 50 mg tablet 50 mg PO DAILY RF: 0 escitalopram oxalate 10 mg Tablet 15 mg PO DAILY Qty: 45 RF: 0 cholecalciferol (vitamin D3) [Vitamin D3] 25 mcg (1,000 unit) Tablet 2,000 unit PO DAILY Qty: 30 RF: 0 Referrals: Harriet Marie DO [Primary Care Provider] - Patient agreeable to discharge: Patient/Guardian understands and is agreeable to discharge plan Addendum Signed By: Fabian Bowen MD <<Signature on File>> Signed Date/Time: 03/12/20 0717 Addendum Co-Sign By: Co-Sign Date/Time: ADDENDUM Discharge Plan Disposition Clinical Impression: Threatening suicide, Intellectual disability Provider stated Dispo: Discharged Condition: Stable Instructions: Mood Disorders (ED) Activity Restrictions/Additional Instructions: follow-up as previously instructed Prescriptions: No Action pantoprazole 40 mg tablet,delayed release (DR/EC) 40 mg PO DAILY RF: 0 quetiapine 50 mg tablet 50 mg PO DAILY RF: 0 escitalopram oxalate 10 mg Tablet 15 mg PO DAILY Qty: 45 RF: 0 cholecalciferol (vitamin D3) [Vitamin D3] 25 mcg (1,000 unit) Tablet 2,000 unit PO DAILY Qty: 30 RF: 0 Referrals: Harriet Marie DO [Primary Care Provider] - Patient agreeable to discharge: Patient/Guardian understands and is agreeable to discharge plan Addendum Signed By: Candice Arrieta MD <<Signature on File>> Signed Date/Time: 03/15/20 0800 Addendum Co-Sign By: Co-Sign Date/Time: Name Value Range Interpretation Code Description Data Sudha rce(s) Supporting Document(s) ID Date Data Source [id number] 02/28/2020 07:37:00 [place] [address] HEALTH INFORMATION MANAGEMENT ED/ Physician Report : [id number] Signed Patient: Amy Carranza Acct:[id number] Unit : [id number] : 1995 Arrival Date: 02/28/20 Age/Sex: 25 / F Arrival Time: 1918 Copies to: Harriet Marie DO Chest Pain HPI/ROS General Chief Complaint: Chest Pain Stated Complaint: Chest Pain Stated Complaint: Chest Pain Source: Patient, EMS, Old records reviewed, RN/MD, RN notes reviewed and I have reviewed available Ancillary/nursing staff documentation Mode of arrival: EMS Limitations: Reports No limitations History of Present Illness Initial Comments: PATIENT WAS DISCHARGED FROM [facility] COUPLE OF HOURS AGO WHERE SHE WAS ADMITTED FOR SUICIDAL IDEATIONS AND CALLED EMS FOR EVALUATION OF CHEST PAIN WHICH SUBSIDED UPON ARRIVAL TO THE EMERGENCY ROOM. NO SHORTNESS OF BREATH. NO COUGH. NO FEVER. NO OTHER COMPLAINTS. PAT IENT WANTS TO GO HOME. Time interval: Minutes(s) Onset: Reports During exertion Location of Pain: Reports Epigastric Radiation of Pain: Reports None Severity: Reports Mild Severity scale (1-10): 2 Quality: Reports Aching Duration: Reports Now resolved Improves With: Reports Other Worsens With: Reports Other Context: Reports Other Anginal Symptoms: Reports Other Other Symptoms: Reports Other Prior Chest Pain/Cardiac Workup: Reports No prior chest pain Related Data LMP (females 10-50): 3 weeks On Oral Contraceptives: No Home Medications Medication Instructions Recorded pantoprazole 40 mg PO DAILY 02/22/20 quetiapine 50 mg PO DAILY 02/22/20 cholecalciferol (vitamin D3) 2,000 unit PO DAILY #30 tab 02/28/20 [Vitamin D3] escitalopram oxalate 15 mg PO DAILY #45 tab 02/28/20 Allergies Penicillins Allergy (Verified 02/28/20 23:59) ADDITIONAL UNSPECIFIED Review of Systems Review of Systems All systems: Reviewed and negative except as stated in HPI. Cardiac: Reports Chest pain Psychiatric: Reports Anxiety and Depression Immunizations Immunizations Up to Date: Yes Tetanus Status: Up to Date Social History Social History Other: States that she is single and lives alone. History of Smoking/Tobacco Use: Never Smoker Alcohol use: Reports None Drug use: Reports None Occupation: On [employer] Lives with: Reports Alone PMH/PSH PMH/PSH Medical History Anxiety Depression Seizure disorder Surgical History No pertinent past surgical history (Surgical) Family History Paternal Grandfather No problems noted. Paternal Grandmother Stroke Physical Exam Physical Exam Physical Exam: HEENT: PERRLA. MUCOSA MOIST. NO PALLOR, NO CYANOSIS, NO JAUNDICE, JVD FLAT, NO FACIAL ASYMMETRY, NO CAROTID BRUITS. EAR/THROAT/SINUS WNL. NECK SUPPLE. NO THYROMEGALY. CHEST: CLEAR, NO RALES, NO RHONCHI, NO RUBS. HEART: REGULAR, NO GALLOP OR MURMUR. ABD: LAX, NO RIGIDITY OR TENDERNESS. NO MASSES.+BS. EXT: NO EDEMA OR CLUBBING OR TREMORS. TUB WASHER: A/OX3, GROSSLY INTACT. SKIN: DRY, NO RASH, NO OTHER SIGNIFICANT LESIONS. Course Course Course Narrative: PATIENT KEEPS STATING FEELING BETTER THE EMERGENCY ROOM AND WANTS TO GO HOME. SHE IS NOT INTERESTED IN ANY WORKUP AT THIS TIME. Medical Decision Making/CCT EKG Interpretation Complete If EKG was done has it been read?: N/A Medical Decision Making Medical Decision Making: PATIENT HAD A MOMENTARY EARLY CHEST PAIN WHICH SUBSIDED UPON ARRIVAL TO THE EMERGENCY ROOM. SHE IS NOT INTERESTED IN ANY WORKUP AND CAN GO HOME. Critical Care Time Critical Care Time: No Discharge Plan Disposition Clinical Impression: Chest pain, non-cardiac Provider stated Dispo: Discharged Condition: Stable Instructions: Chest Pain (ED) Activity Restrictions/Additional Instructions: TAKE ANY MEDS GIVEN DIRECTED AND FOLLOW UP WITH YOUR DOCTOR IN THE AM TOMORROW. COME BACK TO THEEMERGENCY ROOM SOONER IF NOT ANY BETTER. Prescriptions: No Action pantoprazole 40 mg tablet,delayed release (DR/EC) 40 mg PO DAILY RF: 0 quetiapine 50 mg tablet 50 mg PO DAILY RF: 0 escitalopram oxalate 10 mg Tablet 15 mg PO DAILY Qty: 45 RF: 0 cholecalciferol (vitamin D3) [Vitamin D3] 25 mcg (1,000 unit) Tablet 2,000 unit PO DAILY Qty: 30 RF: 0 Referrals: Harriet Marie DO [Primary Care Provider] - Date/Time <<Signature on File>> Initializing User: Janett Kim MD 0 02/28/20 1937 Signed by: Janett Kim MD 02/29/20 0144 Name Value Range Interpretation Code Description Data Sudha rce(s) Supporting Document(s) ID Date Data Source [id number] 02/28/2020 03:05:[address] [facility] Name Value Range Interpretation Code Description Data Sudha rce(s) Supporting Document(s) ED Provider Note [facility] UNPGWq7yKtIYGoOd27/DPGdfJASna2GaPItnZGx3KSvqATFcO2VmVUB7pE8tCJV3UReNYzXfNsQnSVR6 lbm NtVpqRQzXlYRVnFixGWbVjJQmjXwnzuVUnWX6KwHM6WEYbK75aJIEaOOLoQ9LvVUK9HZm+Mg8RMGCqoK UxSR0OKguG7Joxi0c6Te0sWT3U1prCXU4P6qFZD3md7ndyeM7FDkuZqwCWzfwagJM3IJrk2gvby6qEGp XtIRZge6hjXvOGCFmeMVyT+s+/oYOqK04hiq5ZP7KL rxwfdXsS3Ozo9gUylCt8lXgxGW4E7GLYD5x+kqZccQb4baCXBXW6PlYclI354NStNeJvIju6Cz7i8eV6 uBzPx+fzokrMpBdicxarGhAUy8DAP65gSl+Wn4V37nutYFtICtFyFT2yt6JD6+O7pMfBwmRxzpZnk0rd TCJR1uB4Px7vq4twXlxEsTHzDJikHAzGFVgkqqZeaI iJW+ouiYwCr9UIfIBwHNNG35yqJoNWLt1wdJ3R6gHnnTUNTGff5rj39AVJgNXc8aFwYGyuIxBUQA7Q9g RkAv6kU2NV9Z4CAZowSNbltC2VGIdh7PpFKrcY1FLC7e9dmGWcYBRRgAuG3pfWToA06m8vq1KTJgYgtg 55DORPxWCX57EthmMO56upQYU0GBrgQ8AFPgp4a5bs 8yGQU8BrVm1u4DR+XLyQju/XEaPL/tiJhFXG0YYFQSjR+v15YAnxTqZpA3JYPWqiWIqCcj8+SknJgvEX AfacNVey8J3AQ1gMAuz4TNLg1T1ib+Y0erDgjULK279Uj/NhufMCrTfYL+C6ZyBWtbElwmoyVJxDd/lN vY0L1wEcBdBtiOxtOlgAiPHZ1tiIFatHbjeYnSi59y 2VYLbozNMtHBapJwTsksCh/xjedR23itwKcXTLGDuQxDfm0cYaMjd+EbcAF71jhJFfrTWkJ8kvayrufZ YxQjqqieAU64zDVnWgfeOXbKOQekc0OIS4ugtnFhyoRtUavRj05zLT9AU+u80Fxio0smzMI4aYHdbTz/ NlkwPPt7HK6/CTmzSePknwdLVXpWAqzSmVPEoPGXKX nrzdqv7J1is6ox207K8FpFLjMMx57/lp11rkoI8uowSW9z3dXmHYg//j6jPGrmWfJ+6Ce7FiLw+VBll8 i3Mipzjbdtzm/MCp/h/4jiyqyBJRGIkXrnSiko/OrOMP8alu5tLLL/PjokZDkxJulG9T7UjthKgN8DaM f7/qIHKLP+zjAUtQBD+/zVsCvVIxscNk2SjYU7/DVJ mf7vuqctWDM077KPUMtbygyeYlBLSs2su8dNtEezABP21snNN+I102oe6/8x9wuaZqs9ChDxdj2e/Supervisor 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 ID Date Data Source [id number] 02/23/2020 02:28:00 PM EDT [facility] COVID Reason [place] Admission Priority Name Value Range Interpretation Code Description Data Sudha rce(s) Supporting Document(s) COVID 19 (RHEONIX) NOT-DETECTED NOTDETECTED [facility] The [employer] COVID-19 MDx Assay is an en dpoint RT-PCR assay intended for the qualitative detection of nucleic acid from SARS-CoV-2 in nasopharyngeal swabs. COVID testing using the [employer] analyzer was developed for the purpose of [...] healthcare providers in consultation with public health authorities. ID Date Data Source [id number] 02/24/2020 10:55:00 AM EDT [facility] Name Value Range Interpretation Code Description Data Sudha rce(s) Supporting Document(s) RAPID PLASMA REAGIN NON-REACTIVE NONREACTIVE [facility] Test performed by charcoal methodology ID Date Data Source [id number] 02/21/2020 07:00:00 PM EDT [facility] Has Patient Fasted For The Past 12 Hour s? N Has Patient Fasted For The Past 12 Hour s? N Has Patient Fasted For The Past 12 Hour s? N Has Patient Fasted For The Past 12 Hour s? N Has Patient Fasted For The Past 12 Hour s? N Has Patient Fasted For The Past 12 Hour s? N Name Value Range Interpretation Code Description Data Sudha rce(s) Supporting Document(s) WHITE BLOOD COUNT 12.23 10^3/uL 4.00-10.50 [facility] RED BLOOD COUNT 3.89 10^6/uL 3.90-5.20 L [facility] HEMOGLOBIN 11.6 G/DL 11.5-15.6 [facility] HEMATOCRIT 35.1 % 35.0-46.0 [facility] MCV 90.2 FL 80.0-100.0 [facility] MCH 29.8 PG 27.0-34.0 [facility] MCHC 33.0 G/DL 32-36 [facility] RDW 12.2 % 11.5-14.5 [facility] PLATELET COUNT 311 10^3/uL 130-400 N [facility] MPV 10.1 FL 8.7-13.2 N [facility] GRAN % (AUTO) 65.8 % 42.0-75.0 [facility] LYMPH % (AUTO) 27.2 % 20.0-51.0 [facility] MONO % (AUTO) 5.6 % 2.0-15.0 [facility] EOS % (AUTO) 0.8 % 0.0-11.0 [facility] BASO % (AUTO) 0.3 % 0.0-2.0 [facility] IG % (AUTO) 0.3 % 1.00-5.00 [facility] IG # (AUTO) 0.0 10^3/uL <0.5 [facility] GRAN # (AUTO) 8.04 10^3/uL 1.50-6.50 [facility] LYMPH # (AUTO) 3.3 k/uL 1.0-5.0 [facility] MONO # (AUTO) 0.68 k/uL 0.20-1.50 [facility] EOS # (AUTO) 0.10 10^3/uL 0.00-1.10 N [facility] BASO # (AUTO) 0.04 10^3/uL 0.00-0.20 N [facility] ID Date Data Source [id number] 02/24/2020 09:37:00 AM EDT [facility] Has Patient Fasted For The Past 12 Hour s? N Has Patient Fasted For The Past 12 Hour s? N Has Patient Fasted For The Past 12 Hour s? N Has Patient Fasted For The Past 12 Hour s? N Has Patient Fasted For The Past 12 Hour s? N Has Patient Fasted For The Past 12 Hour s? N Name Value Range Interpretation Code Description Data Sudha rce(s) Supporting Document(s) SODIUM 142 MEQ/L 135-145 N [facility] POTASSIUM 4.1 MEQ/L 3.5-5.3 N [facility] CHLORIDE 108 MEQ/L 94-110 N [facility] CARBON DIOXIDE 28 MEQ/L 22-33 N [facility] ANION GAP 10 5-16 N [facility] BLOOD UREA NITRO 11 MG/DL 7-25 N [facility] CREATININE 0.5 MG/DL 0.6-1.4 L [facility] GFR > 90.0 ML/MIN [facility] Stage G1 - Normal or high kidney functi on The GFR is an estimate of the Glomerular Filtration Rate. It is an aid to assess a patient's renal function. It is not a conclusive diagnosis of kidney disease. GFR normal is >=90 The MDRD GFR calculation is considered valid between the ages of 18 and 75 years only. BUN/CREAT RATIO 22 8-36 N [facility] GLUCOSE 121 MG/DL 70-100 H [facility] CA 9.0 MG/DL 8.7-10.5 N [facility] BILIRUBIN,TOTAL 0.2 MG/DL 0.1-1.3 N [facility] AST 29 U/L 5-40 N [facility] ALT 59 U/L 5-48 H [facility] ALKALINE PHOSPHATASE 92 U/L 40-140 N [facility] alth TOTAL PROTEIN 5.8 G/DL 5.9-8.3 L [facility] ALBUMIN 4.1 G/DL 3.0-5.1 N [facility] GLOBULIN 1.7 G/DL 1.5-3.5 N [facility] ALB/GLOB RATIO 2.4 G/DL 1.0-3.0 N [facility] ID Date Data Source [id number] 02/24/2020 09:37:00 AM [facility] Has Patient Fasted For The Past 12 Hour s? N Has Patient Fasted For The Past 12 Hour s? N Has Patient Fasted For The Past 12 Hour s? N Has Patient Fasted For The Past 12 Hour s? N Has Patient Fasted For The Past 12 Hour s? N Has Patient Fasted For The Past 12 Hour s? N Name Value Range Interpretation Code Description Data Sudha rce(s) Supporting Document(s) FOLATE 10.81 NG/ML 3.40-24.00 N [facility] ID Date Data Source [id number] 02/24/2020 09:37:00 AM [facility] Has Patient Fasted For The Past 12 Hour s? N Has Patient Fasted For The Past 12 Hour s? N Has Patient Fasted For The Past 12 Hour s? N Has Patient Fasted For The Past 12 Hour s? N Has Patient Fasted For The Past 12 Hour s? N Has Patient Fasted For The Past 12 Hour s? N Name Value Range Interpretation Code Description Data Sudha rce(s) Supporting Document(s) Vitamin D,25-HYDROXY 17.5 ng/ml 30-100 L [facility] Vitamin D Status Range De ficiency <20 ng/ml Insufficiency 20-29.9 ng/ml Sufficiency 30-100 ng/ml Toxicity >100 ng/ml Patients should not be tested for 72 hours post fluorescein dye angiography. A false elevation of result may occur. ID Date Data Source [id number] 02/24/2020 09:37:00 AM [facility] Has Patient Fasted For The Past 12 Hour s? N Has Patient Fasted For The Past 12 Hour s? N Has Patient Fasted For The Past 12 Hour s? N Has Patient Fasted For The Past 12 Hour s? N Has Patient Fasted For The Past 12 Hour s? N Has Patient Fasted For The Past 12 Hour s? N Name Value Range Interpretation Code Description Data Sudha rce(s) Supporting Document(s) SALICYLATE < 3.0 MG/DL 2.8-20.0 [facility] ID Date Data Source [id number] 02/24/2020 09:37:00 AM [facility] Has Patient Fasted For The Past 12 Hour s? N Has Patient Fasted For The Past 12 Hour s? N Has Patient Fasted For The Past 12 Hour s? N Has Patient Fasted For The Past 12 Hour s? N Has Patient Fasted For The Past 12 Hour s? N Has Patient Fasted For The Past 12 Hour s? N Name Value Range Interpretation Code Description Data Sudha rce(s) Supporting Document(s) ACETAMINOPHEN < 2.0 UG/ML 10-30 L [facility] High levels of N-acetylcysteine (used t o treat Acetaminophen overdose) may cause interference and cause a negative bias in the Acetaminophen result. ID Date Data Source [id number] 02/24/2020 09:37:00 AM T [facility] Has Patient Fasted For The Past 12 Hour s? N Has Patient Fasted For The Past 12 Hour s? N Has Patient Fasted For The Past 12 Hour s? N Has Patient Fasted For The Past 12 Hour s? N Has Patient Fasted For The Past 12 Hour s? N Has Patient Fasted For The Past 12 Hour s? N Name Value Range Interpretation Code Description Data Sudha rce(s) Supporting Document(s) BLOOD ALCOHOL < 0.03 % <0.03 [facility] ID Date Data Source [id number] 02/21/2020 06:30:00 PM T [facility] Has Patient Fasted For The Past 12 Hour s? N Has Patient Fasted For The Past 12 Hour s? N Has Patient Fasted For The Past 12 Hour s? N Has Patient Fasted For The Past 12 Hour s? N Has Patient Fasted For The Past 12 Hour s? N Has Patient Fasted For The Past 12 Hour s? N Name Value Range Interpretation Code Description Data Sudha rce(s) Supporting Document(s) HCG QUALITATIVE SPECIMEN URINE [facility] ID Date Data Source [id number] 02/21/2020 06:30:00 PM T [facility] Has Patient Fasted For The Past 12 Hour s? N Has Patient Fasted For The Past 12 Hour s? N Has Patient Fasted For The Past 12 Hour s? N Has Patient Fasted For The Past 12 Hour s? N Has Patient Fasted For The Past 12 Hour s? N Has Patient Fasted For The Past 12 Hour s? N Name Value Range Interpretation Code Description Data Sudha rce(s) Supporting Document(s) HCG RESULT,U NEGATIVE [facility] Reference range is Negative To ensure best sensitivity, first morning void is recommended. Dilute, low specific gravity urine may give a falsely negative result. If is suspected, repeat testing with a new specimen 48-72 hours later. ID Date Data Source [id number] 02/21/2020 09:38:00 PM EDT [facility] Run: 02/23/20 0750 INTERFACED REPORT Name: Amy Carranza Age/Sex: 25/F Location: [facility] Acct: [id number] Unit: [id number] Status: ADM IN Room/Bed: 904-B Re02/22/20 Disch: Raisa Dr: Theodore Conte MD Specimen #: [id number] Ordered : 02/21/2002/01/2139 Collected : 02/21/2002/02/1816 By: PEYTON Received: 02/21/2002/02/2124 By: NAHOMY Source: URINE CC Specimen Description: Procedure Result - COLONY COUNT Final COLONY COUNT LESS THAN 1,000 CFU/ML URINE CULTURE Final NO GROWTH NO GROWTH <18 HOURS NO SIGNIFICANT GROWTH 42 HOURS URINE CULTURE Preliminary (Corrected) NO GROWTH NO GROWTH <18 HOURS END OF REPORT Name Value Range Interpretation Code Description Data Sudha rce(s) Supporting Document(s) OPIATE SCREEN NEG NEGATIVE [facility] Minimum Detectable Limit is 300 ng/mL. BARBITURATE SCREEN NEG NEGATIVE [facility] Minimum Detectable Limit is 300 ng/mL. PHENCYCLIDINE SCREEN NEG NEGATIVE [facility] Minimum Detectable Limit is 25 ng/mL. AMPHETAMINE SCREEN NEG NEGATIVE [facility] Minimum Detectable Limit is 1000 mg/mL. BENZODIAZEPINE SCREEN NEG NEGATIVE [facility] Mininum Detectable Limit is 300 ng/mL. COCAINE SCREEN NEG NEGATIVE [facility] Minimum Detectable Limit is 300 ng/mL. CANNABINOID SCREEN NEG NEGATIVE [facility] Minimum Detectable limit is 50 ng/dL. HEROIN SCREEN NEG NEGATIVE [facility] Minimum Detectable limit is 10 ng/dL. A ll POSITIVE or BORDER results are unconfirmed. Please contact the laboratory if a reference testing confirmation is needed. ID Date Data Source [id number] 02/21/2020 09:39:00 PM EDT [facility] Run: 02/23/20 0750 INTERFACED REPORT Name: Amy Carranza Panda Age/Sex: 25/F Location: [facility] Acct: [id number] Unit: [id number] Status: ADM IN Room/Bed: 904-B Re02/22/20 Disch: Raisa Dr: Theodore Conte MD Specimen #: [id number] Ordered : 02/21/2002/01/2139 Collected : 02/21/2002/02/1816 By: PEYTON Received: 02/21/2002/02/2124 By: NAHOMY Source: URINE CC Specimen Description: Procedure Result - COLONY COUNT Final COLONY COUNT LESS THAN 1,000 CFU/ML URINE CULTURE Final NO GROWTH NO GROWTH <18 HOURS NO SIGNIFICANT GROWTH 42 HOURS URINE CULTURE Preliminary (Corrected) NO GROWTH NO GROWTH <18 HOURS END OF REPORT Name Value Range Interpretation Code Description Data Sudha rce(s) Supporting Document(s) COLOR,UR AGNES YELLOW A [facility] APPEARANCE,UR TURBID CLEAR A [facility] PH,UR >9.0 5.0-8.0 A [facility] SPECIFIC GRAVITY,UR 1.012 1.002-1.035 N [facility] PROTEIN,UR NEGATIVE MG/DL NEGATIVE [facility] GLUCOSE, UR NEGATIVE MG/DL NEGATIVE [facility] KETONES,UR NEGATIVE MG/DL NEGATIVE [facility] OCCULT BLOOD,UR MODERATE NEGATIVE A [facility] NITRATE,UR NEGATIVE NEGATIVE [facility] LEUKOCYTE ESTERASE ,UR SMALL NEGATIVE A [facility] BILIRUBIN,UR NEGATIVE NEGATIVE [facility] UROBILINOGEN,UR 0.2-1.0 EU MG/DL NEG-0-1.0 [facility] RBC,UR 1-2 PER HPF 0-2 [facility] WBC,UR <5 PER HPF <5 [facility] URINE EPITH FEW PER/LPF FEW-MOD [facility] AMORPH SED,UR FEW PER LPF NEGATIVE [facility] BACTERIA,UR RARE PER HPF NONE [facility] ID Date Data Source [id number] 02/23/2020 07:50:00 AM EDT [facility] Run: 02/23/20 0750 INTERFACED REPORT Name: Amy Carranza Age/Sex: 25/F Location: [facility] Acct: [id number] Unit: [id number] Status: ADM IN Room/Bed: 904-B Re02/22/20 Disch: Raisa Dr: hTeodore Conte MD Specimen #: [id number] Ordered : 02/21/2002/01/2139 Collected : 02/21/2002/02/1816 By: PEYTON Received: 02/21/2002/02/2124 By: NAHOMY Source: URINE CC Specimen Description: Procedure Result - COLONY COUNT Final COLONY COUNT LESS THAN 1,000 CFU/ML URINE CULTURE Final NO GROWTH NO GROWTH <18 HOURS NO SIGNIFICANT GROWTH 42 HOURS URINE CULTURE Preliminary (Corrected) NO GROWTH NO GROWTH <18 HOURS END OF REPORT Name Value Range Interpretation Code Description Data Sudha rce(s) Supporting Document(s) ID Date Data Source [id number] 02/21/2020 05:53:00 [place] [address] HEALTH INFORMATION MANAGEMENT ED/UC Physician Report : [id number] Signed Patient: Amy Carranza Acct:[id number] Unit : [id number] : 1995 Arrival Date: 02/21/20 Age/Sex: 25 / F Arrival Time: 1726 Copies to: Harriet Marie DO General Adult HPI/ROS General Chief Complaint: To Be Triaged Stated Complaint: SI Source: Patient and Other ( transfer note from primary care) History of Present Illness Initial Comments: the patient was brought to the emergency room from her primary care's office where she had stated that she was planning on killing herself in 2 days. She has previously been admitted for suicidal ideation. When I interviewed her she denied being suicidal. She states that she spoke to her therapist yesterday and has another appointment today. When asked when she had herappointment she was unable to say. When I pointed out that it was after 5:00 p.m. she stated that she did have an appointment. She admits feeling suicidal with a plan to kill herself in 2 days timeand then denies it. She is constantly changing her story in the interview. When I stated that I would discuss her case with the psychiatrist she became belligerent and started yelling at myself and staff members. No further history is currently available. She states that she lives alone and no longer lives with her aunt Related Data Home Medications Medication Instructions Recorded escitalopram oxalate 5 mg PO DAILY 30 Days #15 tab 02/07/20 nitrofurantoin monohyd/m-cryst 100 mg PO BID #10 cap 02/17/20 [Macrobid] Allergies Penicillins Allergy (Verified 02/17/20 10:26) Review of Systems Review of Systems All systems: Reviewed and negative except as stated in HPI. Psychiatric: Reports Depression and Suicidal Social History Social History Other: 25-year-old female, no kids, on SSD, currently living with her grandmother. History of Smoking/Tobacco Use: Never Smoker Alcohol use: Reports None Drug use: Reports None Occupation: On [employer] Lives with: Reports Family PMH/PSH PMH/PSH Medical History No pertinent past medical history Surgical Hi story No pertinent past surgical history (Surgical) Family History Other Patient denies significant medical history Physical Exam Physical Exam General appearance: Alert, In no apparent distress and Obese Head Head Exam: Atraumatic and Normcephalic Eye Eye Exam: Conjunctiva normal and Sclera normal ENT ENT Exam: External ear normal and Nose normal Neck Neck Exam: Full ROM, Supple and Trachea Midline Cardiac Cardiac: Present: Regular rate and rhythm and Radial pulses normal equal Murmur: Present: None; Absent: Diastolic and Systolic Heart Sounds: Absent: Gallops and Rubs Lung/Chest Lung/Chest Exam: Clear, Normal Exchange and No chest wall tenderness Abdomen Abdominal Exam: Soft, Nondistended, Nontender and No guarding Back Back Exam: Full ROM, No Deformity and Skin Normal Upper Extremity Upper Extremity Exam: moving upper extremity with no deformities, swellings or pain. Full range of movement Vascular: capillary refill Lower Extremity Lower Extermity Normal: Full ROM and Nontender Neuro Neuro Normal: Alert, Oriented x 3, Fluent speech, Gait normal and Strength 5/5 all extremities Psych Psych: variably answering questions. Seems followed tell. Shouting at staff and then laughing inappropriately. Admits and then denies suicidal zita ation. Admits and denies planning to jump off a building. Psych Abnormal: Flight of Ideas Skin Skin exam: Dry, Intact, Adwolf and Warm Course Vital Signs Vital signs: Vital Signs 02/21/20 17:39 Temperature 98.6 F Pulse Rate 96 Respiratory Rate 16 Blood Pressure 139/90 H O2 Sat by Pulse Oximetry 97 Medical Decision Making/CCT Medical Decision Making Medical Decision Making: Prior to initiating a workup I discussed the case with Dr. Almanzar. Given the patient lives alone, is confabulating some stories and has a history of depression and his stated a clear suicide plan to her primary care doctor which she both admits and then denies, The patient will be medically cleared and then admitted under involuntary status to Psychiatry. labs were sent on the patient and the patient will be signed out to the oncoming physician for eventual disposition. Critical Care Time Critical Care Time: No Discharge Plan Disposition Clinical Impression: Threatening suicide Provider stated Dispo: Admitted Prescriptions: No Action escitalopram oxalate 10 mg Tablet 5 mg PO DAILY 30 Days Qty: 15 RF: 0 nitrofurantoin monohyd/m-cryst [Macrobid] 100 MG capsule 100 mg PO BID Qty: 10 RF: 0 Referrals: Harriet Marie DO [Primary Care Provider] - Provider in triage note Vital Signs Vital Signs: I O (Last 24 Hours) 02/19/20 02/20/20 02/21/20 23:59 23:59 23:59 Other: Weight 129.54 kg Vital Signs (Last 8 Hours) Temp Pulse Resp BP Pulse Ox 02/21/20 17:39 98.6 F 96 16 139/90 H 97 Date/Time <<Signature on File>> Initializing User: Fabian Bowen MD 02/21/20 8933 Signed by: Fabian Bowen MD 02/21/20 5722 Name Value Range Interpretation Code Description Data Sudha rce(s) Supporting Document(s) ID Date Data Source [id number] 02/23/2020 08:54:00 PM EDT [facility] Name Value Range Interpretation Code Description Data Sudha rce(s) Supporting Document(s) VITAMIN B12 290 PG/ML N [facility] ID Date Data Source [id number] 02/20/2020 03:52:[address] [facility] Name Value Range Interpretation Code Description Data Sudha rce(s) Supporting Document(s) Consultation [facility] QMKHEp6wQlUYLeGf06/WMShvCXGnx7BpXEzsKXl1RHuiHISmR3ZeQMZ8fE6zYEU8USrQUgGsBuFkQJV6 lbm [file] glJwgo37ZLzR24/3lj6F5dtmgb3//police investigator/3y8jhXx10 [file] AgICAgICAgICAgICAgICAgICAgICAgICAgICAgICAgICAgICAgICAgICAgICAgICAgICAgICAgICAgIC AgICAgICAgICAgICAgICAgICAgICAgICAgICAgICAg XIXuOZ1LHGUgJFKfGIQlQWGyNZNtITUjZMEwBQOpITAjRTZdZHZfITZcMENgUSQpEPVeTJKhNOJhUPLs BLTcICHeIALrTZHcXPQzKMMmGQUuRJLkDSPfZITmTJDtWAJrIDWyPQXeHVUoDB1QQCPxTIMfATKyGNJt ICAgICAgICAgICAgICAgICAgICAgICAgICAgICAgIC LcTSJlSFZbHYXpSJMqXWAwQOKsPFHeZXAhTHJhLRCqFDYrUQXbHYOkZAOlJGDkBTOeSMTlWUZcFG6SJK AgICAgICAgICAgICAgICAgICAgICAgICAgICAgICAgICAgICAgICAgICAgICAgICAgICAgICAgICAgIC AgICAgICAgICAgICAgICAgICAgICAgICAgICAgICAg DVEcNWYhNY5EBORsKCDyYJUiIWNyIGPwCGEhJRQoPCVyMAYpONTwPUXiKHIoZYAvNAYqPHCxKLAbPLEk YCZwZGGnTSGzVLXcYTHbFEUhLNZnENFoKTSnUEEuMNLxKHSqYJWoWWKmEJUfQPPuZU0IUTVtLVZpSTGw ICAgICAgICAgICAgICAgICAgICAgICAgICAgICAgIC AgICAgICAgICAgICAgICAgICAgICAgICAgICAgICAgICAgICAgICAgICAgICAgICAgICAgICAgICAgIA 0KICAgICAgICAgICAgICAgICAgICAgICAgICAgICAgICAgICAgICAgICAgICAgICAgICAgICAgICAgIC AgICAgICAgICAgICAgICAgICAgICAgICAgICAgICAg JTTcGHVvFIRlVQ4SOROvWZQsAPKfDSRbKLLxXLIpAOKiZGCmFWZoOCQnYWYnNFSsQRQaBCFzUZXeJFGc SYEiXCPiSDZhKRFxVOAvOYJfJTUqRUUdTVJtXSFjXWYzSGErZTWsFBQnMQDiQGQeSJRxAJ3GAYPaUTKo ICAgICAgICAgICAgICAgICAgICAgICAgICAgICAgIC AgICAgICAgICAgICAgICAgICAgICAgICAgICAgICAgICAgICAgICAgICAgICAgICAgICAgICAgICAgIC PtLK6FHWMnJECtLXAzYQApILMzTWWcLLEnQKPfWKQlCCIpJVUqPRUyIPBfEEIlYOBqXVKfTYIrEUIyIL AgICAgICAgICAgICAgICAgICAgICAgICAgICAgICAg VBKrAPEdIOYoJATuPZ6UYN12xYVru9W4BVMvKM4rkbn/Vm0XCOycjjJujYSfJC0NHmXfPT7bwz5XOiTg OM5iqs2MHLxWGcMtW3Y9uDDsNNMqBGORKzOeV31mUEopQb78JWmyJYSgBuIhLOq5Mn0JQkXnH9soTDFe BeB6WAXtKyJ9QQLdYsQ3UYQhRoOqLKBcVCWqJMUeHR IAVCH8RHNkTsUbSoUxKQRuJRsnOTUFLAEdEWRgCnVaJYgqZD2Hk6BmmCC8NVo+Xt8JAB6tb2RsWOx8Ik FzGD1ddg0ZPZfLQxUtW9VvwfQ3HYSlDVOdEa1CVBAmPZGrrLB5JsPaMBAXAbGlL6VzkC48CZCEYc2+DQ cqhkNvJhzINvPdHVKqf8KyCFc4LN2GKQWeCVw3mWOv X12gl3ZghOWvDynnW8aooDU6w4CrCPHuZwPWTV3dYI6hHOXJRzLvgGR6AgMpPyQrTKRsHPuaZEGXKAsY MwKjS6Efv0WfAiP1ZSPwRgCnTFhsDQZuEaR0JX29kFvuPD1RNWIiKDLpAH06JWHqEHDsMu8UDf6QTwRt KR6qdo8CZIQxSCOhAlvXBlf8BEsiYH6FeAMmY0PmnH Uvt0xGBvVnH5WKETXgTRWaEe6HDEKeZuHxLIXiJErgWJ1zUDZyHYGVoPbwbhL5TT0YFW9wmsIpTR5ESw GlPa0oEn0WFbUvD0LwS4TxNDFlFTDLXNoyRV0CUDsnNX5oSD9Ca5BQfHGuqU1sqq2RLRKvRENsKrevzj 7FGngrF3V8hImvIVFcUHLnFVDAMHopRU5EKWZnRYR2 EJD4NATqVAHRTiVoM80cWM5ZQ3Gpf19nKkU5IUTpLjFlNExrVT60qAubimUngNShvNxqIT4VXb3+DQpl ggPyPvrZQrnkMYIPZmUrEEQJHdTpANMkSZRgIXJrBuP5UnQrOl2QINYaCVRcYEFrGcGbCLNoTPWjTWbc MZNoOOC7StXdSDPdNBMeGH4WOdMmVKFhKZwsERCtXR AlKCSaqm7OKXAaRDYdSSE2KtGgVNWvIXPsPPumGRRyQOV6IOYgCPUfJIXqDI7DNoZrCMVaNUMvXVZxKC EqAFWvyf2VISYeQAGkKmAuBeZrHYXmTGMgQAoaXLGiOZG6QFV6VMYbZHPaSU8GYsKkLOIdLYIvFiZeQK BcVTIqcl5JDLYfRRIgFQP3IDYwHYQxHAVmOFbuTJHa IZE4APn8UWVqIBKcIJ5CQxQlXBFoRWTsAAEmRYLtNXWayh2CYHBqFNIrXRbpCYQiXTUhLNCdRAljSOPr JZQ3KDP7ETPlUPTbFY9XGfEaQOWkPhO1ZrrzLCSeRGInfw2OTHJaDYWrTivzEtKqVOKjBJNtQWouVZZt BGR7DhEjEQTvWWEgLJ9UPfUpKTZoYsP8ESrcMNTwTC Ozmp2XFCPrEEJxBNg1UeQnEJHfTJBrMSoxZYGuMIChTGHkIZUoVTJzKY3VDyGlQRZnJtC3VgIsURFdIM Uzxo3BQZHeWMOrQJrlHUIlECYfGWAnNAcgBXDvSBJiRGubCJNkRLGeGG6EIjQqWGTyKlRbZMkcEBAmNX Nykn6JNQQbGYGbUwN3XVPaTPIdWQUnVOlvBOCoIBH5 AjTrZTUiVNVnWO7EIpMyBXCpEyU5BuQwAVAhIUSiip6ZUZGaKBIoIVIaDOLyYXLtZWXaEWbcVRFuWQR0 ZOrhFKYmTUKdXT2BHxOoNJZsYuJ9KkagFAFvRDHhmx6XMAGsHDDnUHg6TIYkRVSiGKKqNQytTOArXYY8 AFYvTTVpOETpRZ4FXbVmXOTlOqbhNlKsGEHeSQQicc 0UUYBqHMGhGhYyBEHuTKLhHCQnRWnvKJShLRA2Yye7XNOrNVTqEA0GBhAxFIQfRNtyREesWTWcTZSccp 6ENVDtMFJ9FLBdItEyGCJaGHMmYNvoWDKuPUP2FIH4EWArGJZsBH3OJkBpJKSxGTb7ZTDkNSXtPIAlnx 3SXQBrHID5PSG5CMTgCPLwXOKqBFdiHJQaOMSjJmT4 TBZwTWBmNQ3BBuStMDMqPFH0IfAxHGVzRBPbqq7TZRKrDBF0KWs4JqGxBWQpXIHxXYcnBNPyIVL4IXX7 PLPrXZXoUF6RSkHzTURzMRJkXaEcASRoGIDhsx7NOPEeZGU8IiA2KRCrRGAqMGPnMEpnSDNqDCJ5QmRj APLwZVQjLL7DXfItCVWwZMT1GyXeBNDpSLCwjy0UCE KaANS9FaO2HJAdHHAqTNSpPIhpENEpAHV3PnPwZXIsTJEvRH4XOsTxTDXiGAo5OSPeELOwIJSmsa8REU XvRRZ3REP7RJZqJZEqFIKnGNuuELYpGSM1RqO9TYMyWMFlUR1JVhZbIJJnNJu2ZDYiRZIhPZVvyc8XaV AlbIycpy0FPSdURo0KuPpnEKK4KIeuAo7njVU3FVUg SAESUa3KqpShQJHnDDTCPTuzNNCzDPK9ArF9SWW1F0ZeYoVaZhX0Qvy0Ucy5XrTdLjjlMGVsJnY0CHyl OJsgKGHfS4TbVHTlPIjwCVT5CUh4Q6YtKKRcMZJ+MH4kORp+Jl1Nh2GswyB8onMcYSe4WVx7SM5TUIEC T0YNCg== ID Date Data Source [id number] 02/20/2020 02:43:[address] [facility] Name Value Range Interpretation Code Description Data Sudha rce(s) Supporting Document(s) Consultation [facility] ZQWIIo8zYnTKNuUo96/GUXdyRYVrr9FqJIubAHi9IGwoJKIsP8DdHLO5qH9uRDA2KYoWSbFeXxAePJX7 lbm [file] ICAgICAgICAgICAgICAgICAgICAgICAgICAgICAgICAgICAgICAgICAgICAgICAgICAgDQogICAgICAg ICAgICAgICAgICAgICAgICAgICAgICAgICAgICAgIC AgICAgICAgICAgICAgICAgICAgICAgICAgICAgICAgICAgICAgICAgICAgICAgICAgICAgICAgICAgIC AgDQogICAgICAgICAgICAgICAgICAgICAgICAgICAgICAgICAgICAgICAgICAgICAgICAgICAgICAgIC AgICAgICAgICAgICAgICAgICAgICAgICAgICAgICAg ICAgICAgICAgICAgDQogICAgICAgICAgICAgICAgICAgICAgICAgICAgICAgICAgICAgICAgICAgICAg ICAgICAgICAgICAgICAgICAgICAgICAgICAgICAgICAgICAgICAgICAgICAgICAgICAgICAgDQogICAg ICAgICAgICAgICAgICAgICAgICAgICAgICAgICAgIC AgICAgICAgICAgICAgICAgICAgICAgICAgICAgICAgICAgICAgICAgICAgICAgICAgICAgICAgICAgIC AgICAgDQogICAgICAgICAgICAgICAgICAgICAgICAgICAgICAgICAgICAgICAgICAgICAgICAgICAgIC AgICAgICAgICAgICAgICAgICAgICAgICAgICAgICAg ICAgICAgICAgICAgICAgDQogICAgICAgICAgICAgICAgICAgICAgICAgICAgICAgICAgICAgICAgICAg ICAgICAgICAgICAgICAgICAgICAgICAgICAgICAgICAgICAgICAgICAgICAgICAgICAgICAgICAgDQog ICAgICAgICAgICAgICAgICAgICAgICAgICAgICAgIC AgICAgICAgICAgICAgICAgICAgICAgICAgICAgICAgICAgICAgICAgICAgICAgICAgICAgICAgICAgIC AgICAgICAgDQogICAgICAgICAgICAgICAgICAgICAgICAgICAgICAgICAgICAgICAgICAgICAgICAgIC AgICAgICAgICAgICAgICAgICAgICAgICAgICAgICAg ICAgICAgICAgICAgICAgICAgDQogICAgICAgICAgICAgICAgICAgICAgICAgICAgICAgICAgICAgICAg ICAgICAgICAgICAgICAgICAgICAgICAgICAgICAgICAgICAgICAgICAgICAgICAgICAgICAgICAgICAg KOg9L2ryAYNtNNOcKX1hDFb1Xo6+ZDwXRcRvLUD1bc NqgX3NUG2if6DlQDklDKAcb7CbPFw4QR2LIFDgHUabWQ5HPKougn1QPHReUXXknHHYb3cjObApWJP5UJ PrVmqrJN9ZPHMkG9auhkPaEQFkPYYGRGhcLPIFWBnwNDNOFHPkEYXyHsAiAaSnSAXkXECkJLFJJIO0AD FzBiCmIBDrOHXcQyEdIRWXKXQsAUPxHzSjMQjoJQ5F q6GkfKRmDM5MGk5DBcQfKA1cfc8GHKTxJBBaKvkVRgp6DYprHL4AyQCllIE9UTRgHNWAFfOcI9jjv3Pr FIQgJNRDJDfgJZ4Uj2TnpIJgTUp+Im2TUL3jn7FbKFj7DKSyMN6efq6KZGyLHvQqQ6AqwZarSPLvsnT0 hGXlLTE4OE2lY2ehGDBHtH6wyHxsYA6hLWAfZM3bLV 0mAPEkHTFnQuQuHCPJUK8BZTEoBYYsnLVgXHFhLNZKRR2WFObePXQ4OTYragUdbMGyRHaiAU2SFLKcva QgNTQgMCBSDQo+Mq9DJV6hz1EbQEt9PgYxDD7kuz6TPHdMDyJhT3V9iWYqZ1N2CCsuIc7KFBNwEDCbQH YkQSMSSFnqTO3NZK1qobD0VD2FhEMyRUUkVZByuOUe HPb4V55dfCKcWRsqKE8WRKU+Dulce+Hg7UKWVfSKBxXDByDsRdAOOXTjWgT5FnR5DNb0MsY7LvLE43nZuc ilFvFKosYO3KDR8kNDYaAHPJFX0XgIHfrL7exkJ4CDXgRKSZKzMxG07unJQyLQKeYVCuNXUwZu9DZTDr S5EeoaQzjUhpbzGeNUVyJFAXQS5AOXspjuBesWFfbQ yxLL31qXgbTL3OVo9ADkGvXP8khp1FdLWpId0SYLA3Dm3TKMSgGIImSQLhKHA4TNWtFpKzJBbdRJAlCI GmFGQ6SJZzTBHlIC6HSuLqIDLyThR1WVYhOGTgXEMcxt7SDRYfNPL4KpC6RqTiEWAqHELhOZvbRSJeBF RfJAM3ULOfCAHmKZ7JYeUyNJUcHSM2GdzfVGNpEJAv rt3APNMuHPRoBYEuJhNoKEBqCNJbQXjbZFRdFLS7OSegRTRzVAUcCB2EMzZzSFWxKHhpTvgpXTCtEPOh cn2ZIBAwQQMhYEC7NdJiWNEhAWHqUCqnEAVrUEDiVnc2HNLaLJViWC2BHdBgFJXyQPP6WQPmIFFpPVDq ze3YSLNoJLLhArb2SfZyDBMaJBPuPQkpCZJeZRU9PX N3QLJnRDPvNJ2NMtSjXWUbQOxjKQGtNDZwWTWdfn7NWIVgNQPfXGlkCoIuDJRjDXAqGHvkKPUySQGoIF ChWTEhYPVoFO9FJkXhAGLcQhPwWrwsKUIiABCfmb6FEWSiMJLpHKE4CUOoOKFpIBMgUGlcDDKnYTH5MV CiQBAaYYXnPD7TVlUpYQAmRaj9RpQgDITlGVBbmj9L SMXaKOTlZtQ3TMEwOCHtDZCtMYdcZNQzBYHvXuC5SRJbSBUjOZ6BQzOrXZToUwOzXlBcSUEcQTSess6O VEQeQKEkMAD8DUUrATEzMBCjEQumCMOaCRX9WyRjJNKrIYPrUW7EYaUkNVJsBuJ3JlycLLVrSGLdyr2H QWZyFZYwQsnjGYXgHQXzTTCdJPncCUMjMUV6JzjxMQ NlOGOuZL5AQiPsQSGkYmz2EyQqPLFuQVNzbx3PAHBuRFElMLD8TQZtTSNyLRNvKPgkGEZfVMX6EEPrSX GjQOBwAA4OKjZdXRHyZglkSMbnZSPhDKCfia7EDFCkUVNcZYBnEQKbPPIaHIVbCPqjLCSrFCBxWgRrBS StLHDaFW8KFkWyXWZtHOA3TlAkIPNePABmcj4KGIVi WBM2GCm5BIVwSNItDBXsTRuiRODsJUSnPKI2SIGaYQFxSB0HLwXeSUTyHGK6RKpdPFImQGQjtq9QDRXn JGI3KyZ0CwIkAQUlDJLwMJxeKRIdYJEyOLO3OSMtWUNsOW8ZWlSmSBLxCMBkPPJiOEElEYSroh7AMVEi TUQ9Kgd7GUIkNCXbLXSyBYcbNEVgOHW4QLi9LMBpWC IoUR6CYtNzBONlJEZdOaEkNVZmZVAtqs9WHIRyMBA8GBPyQnZoYRYxVHVfFHzpRBTxFGW8MNX4SQDwHC JkEC6VUsWlYAMfEYk7SeKiVJWyGCKrpx7IHLYpOTQ3VGSbIOGsPBYwZWRhVXldFOYzHMOdXZPeYTDbRZ HcRM9GLlHaYVXoJsAuGuOoUVMuADXifw9WXNUmLXD4 ZAKuSSLnHTYtJPUsCBotQYHfFLKySyFyUAJjCPGhLI7DZfFwCNKnWaPuBYDcNEBtUMKeia4SHCChYZU0 Wlq0TdJcNKGvLLAxVRugAKJrBSNqUNSePRMxTEZoBZ3MVsRdRNNpQlL9TNVoSXCeIKUjel7DhRQvcAts ho5TUKiLAj7GlGueEVZ8VKlhVs3loAH4AlClEQWZEa 1EmvOcDKAdVUAIXEryFIYlANQoULfhBHD5SQRfPcElHuM4IMJzG3O9THTkPKg6ReU8LoX6GMS6NqN9RR o0GXU1CbJ7MYRtMdUdAJZxZJNgDEqwFlq+JE7fJWw+Jh4Ku0SnlpG4zmXeWUa1TvC8UA2KUIYPC2GKNy == ID Date Data Source [id number] 02/19/2020 09:06:[address] [facility] Name Value Range Interpretation Code Description Data Sudha rce(s) Supporting Document(s) ED Provider Note [facility] FCBKWb2nTgBVQrZs33/ULRvbTAVct5GmQDzcCBc1EKtlVDQgT0PnNFM5qJ0mZUN4RReJAmTmZgUmXTO5 lbm [file] OTkzMSAwMDAwMCBuDQowMDAwMDkwMTcwIDAwMDAwIG 6WYhEoQTLnHYOzVQZmMSBjTGVvsj4HZOXkAES3YFF8FGIuHEEdDSHyNXgwONZsBOtpGON6DYEcAOVmBT 3IDxIxTQDhSFU4ZpVpWGMvVQPqmi3BDHOuBBS5EqJ7QLYrNYExCBXoKFoeFYAgMKykZcA4HWEoWVTeQR 7IJxBrJUUqTOY9YrEtCUZmMLVlze0GWGXaCQX6Xksy TOTfSWAoUTIcUMjpXZTsHSt2QTc1OYNfYDUkUF6VPnCbMTMiNTEdFyOjLGJgKAOawh7OXRViBXX7LVD2 VUIiEGXaKMQqZNesCFLmOLh6UdU4NUWmDEGwPV4ALtFfIPKfQYQ2VANvXUGfMRJafe5YWRSbJNO9MSr6 UDJyKTFsGDDePSfkTZNaWQq4FWD9NWWfBLWoRT9PSl LjYHTwOEMhTtOiJPAkJMYkyl9CFMUsUKL0MZCmCdMeMSZmFWFtVAtfWHOqTEu9Isw2QPTmUGDtRU5KTk TaIAArDQM7TbJhDVOuRQNavs2IPETbZBY8DtO7PZQtMOLnFGCoSSbbUFQsSWr1OrC1ZBYbJMSlFL6BUn BsUBPhNEZ1BlHaENIyKXQlzy0VBMNgTYG3GiYbYuYb KOSxIXVxEZoqAVBfAUj8Eho7FWCiRZSvTK2STeYmOAGqKMW3KgdrFKGjJITnhu9PVYBiKMZ0KlQ5AuNk IXUhXBYsJOjzQMZfFEm7GdW0YYFoOYHgKL3AOrQaEPSzKCn6JIeeEXJlBJOgnh1VXCPgHHT6TaszKVEf FSFlWHSiBMqrCBNnSWm7VGg0PSNcLGCzRN8EVlHvJI OySEfqQCFqCBNzXFOkyx8NNDWdSZZ6ONQpZNMdSCRbLDSxHCd0lgDsvSBnMSt7ZG8EM9EgkhCeXBAgDI cuRw8xxKY8ZWYsPMBERz7XbiXxKNKbFUPHJSzbVSPtZSYsUZdjVayfZdPjRMNmKCX5MZMnKSUiCpe0FF PjCoQyZuX1OiTzX8PfRDBnDtKuPIK3VHChDZXcKAE9 WCWpBtE3J6D+NN4vYVm+Ta0Qk0BbaxJ2kqZqEEw8XOJ5KU0JKZRXG0MSXk== ID Date Data Source [id number] 02/19/2020 01:15:[address] [facility] Name Value Range Interpretation Code Description Data Sudha rce(s) Supporting Document(s) ED Provider Note [facility] ZDHSHv0xFxATDbQw70/KMYwuZHGwc9YgGIfwABw9VAdlTXMxQ3OyHNX0mP7fAGP3IIhQGnCvJxYrYNO3 lbm [file] AgICAgICAgICAgICAgICAgICAgICAgICAgICAgICAgICAgICAgICAgICAgICAgICAgICAgICAgICAgIC AgICAgICAgICAgICAgICAgICAgICAgICAgICAgICAg XIBcFN0SKMUwHYDhYLBeZCUuAAHjQFRkNYHyUBWjJWNnZXUyYCXzPBIwNBGaIVCgGUCzIODwEJHnEXWq JZFsURXkLIBiNMJdQXSqGSHjUEUaRJRnCGYiPZAtUZSpOGElDIXzKMTjXZFmEQ0COKMhJEKpFYSvOYIg ICAgICAgICAgICAgICAgICAgICAgICAgICAgICAgIC HxJAYsWFLiOPYcTPDeRVQlOVRtDBPmGMBpHHMqUMMvPGAlWJWrYXGiRWEkNJRxGQOzYQTiUNJiQK3AZB AgICAgICAgICAgICAgICAgICAgICAgICAgICAgICAgICAgICAgICAgICAgICAgICAgICAgICAgICAgIC AgICAgICAgICAgICAgICAgICAgICAgICAgICAgICAg NKFpQFUiJU6KKGRgLAXbPUHdJOGlAWQjRLPtNKQqFONcWDWmKNDcFUUtAGMpYNByVETxUQApWJZhVGVi ZPXrMEEgOJWbMXYnHQUyYYDiZHUuGXEeUBPhZSSzZNMqYDBiIPYcWNFpJPVbTZKbVQ9GHZAcRODrYHIc ICAgICAgICAgICAgICAgICAgICAgICAgICAgICAgIC AgICAgICAgICAgICAgICAgICAgICAgICAgICAgICAgICAgICAgICAgICAgICAgICAgICAgICAgICAgIA 0KICAgICAgICAgICAgICAgICAgICAgICAgICAgICAgICAgICAgICAgICAgICAgICAgICAgICAgICAgIC AgICAgICAgICAgICAgICAgICAgICAgICAgICAgICAg ZMBgHWFyECMxFQ5DRONvVHIlJWIcSJLdWVKfMSYvTLWwDSBzQODoEDJlJPTvSKPxINRxLBRvGLGnLBJi YJHaZASbLEEmZHSyRDHjJWUmOWVrIYXfXEQnZVLcIJDhTWUqUDOzTFKbOBQcRBQsDCObVY0XQHTqLEVv ICAgICAgICAgICAgICAgICAgICAgICAgICAgICAgIC AgICAgICAgICAgICAgICAgICAgICAgICAgICAgICAgICAgICAgICAgICAgICAgICAgICAgICAgICAgIC CzMW9HFYUrVPOtDIQaRCRhNXQsBWOeRTGcOALwYBUtSDAhZKTfZRJiVMIaGQJgZLImLMJtQNDkJJEoYJ AgICAgICAgICAgICAgICAgICAgICAgICAgICAgICAg KQIsXBLrLJIqJGTwTW0LIK25qERke6L4VIHmPU8owmt/Cz0TACuzffWweUDjVQ3NPaJdGS2tlf1BPsOl JY5xxp6THBhJBeAfM4P3nIXhLZKsXGAQMiOhH25pIIisFz28SEugYYQuCuRwGGm7Fy6CVtCeR2unLJWs YcT1XVDwXxE1DLFxZfW2JQVtQlUaEXOkGJJhWMAoZT FBJDS9MMXqCrDcKyIvIRZsMTzvQOMXCMVvMYOzLhVxTaAbFXPfVcUdRFPYDYH7IMDlSmEiOOYoYUYhBt DqVZRKPFXeAFTvGbIvKIVvGGAyKmqeNIPTDB4GUtOzX5KpiR94YJN0GIp+Li0YEC2uu0BmYUz1WeUjYT 1wif4RYPkWKjIiF1QzgdO7QLZ2ZHUxXt4FPPBtRHZe oRK1NdXnZMPTKqLcR2NfbL53NJT4JCf+Ss2LWA7va2HqMMk5YZRxRN4lkq2PPEnEDwSeJ7PdkTtlQQJE DWZuw3SlQVClJC6efIFxQPN4NWPemgrjlOFYYVxjaXzeFJ5mTBGhYJ63GyAiAzVfEDJ0VNOcTO8gOSfy UM7LNPQ7LQwmLWPnTKMyW9yTPoJaBHqsTJWoxUwoEH 5USoOwB7UlyoJqmWZ9UsHtBYCDUaVjH16ntUErSTtkMNLCKKg+Ly4FLN0tk3BuDSs6TYQiUP6idj2NGE yYDjDyM8VygYrsJLTADMDvk9YaZUOtDA0mmSOyQHW6GDOyrcddzHWGYAuhcQmcWS6wOMVwQH11HvGpFn McWZL9IKUaMT7rCGkiER9XJKB2IEtyLCOlULCBKU4J FKseKWLyAAoftxZyyZMuFYtxWF2AWCIjbiWpHMapNYRTRIxiXI2XexO2TFO6VGVjKa3BLUWlMdH0kVK0 MCAwIFINCj4+RJwssbMpEuvGFwXqJCJxr1BlUPg0YR7ZDOMxWAh6nKNdIJFkLx40XBDnWxwtD6Wcc9wi hdOyBVIRwTKjfWCdKETZMHV9ETgsXN0rLPDbFQY0Ww I9VPOUJB7IWRUdDQBppUCuTOK7MZReWdWaIFaaBJIqVMD4BO52dPhaJB3VRRDxBGRuBD22UUQ1KRZwBl 9XUTBrZWCwqaQ5RCQfVIDHEaMdO52dcZZfGqFvKZRLFAw+Ci5DIQ5oj0KvEPc2FEYxSM0ear6UUFqXHb IfI1UoaTzuPHBEPB6qkUIsPNM8TPDfao5qwM4dZU6z I3ZwQ9m2TNIXTeGicZZ9XlRoExZuDAXdPtk4IZTKQAyVRyCsM2Kcx5EcMqRiOZLgFAVyY7sBFkExKDX0 QPPidQzhUE8DXlMgD5HvreXshXJ8SlAdUEXXEhRfK1JeKLCwMoJhSWIIECynXJ7BGPb9NCAmLATpSx5H Tw6BKkDaGX7rcz0NYzUuNQXyDrcTLyg9HXhjHY9OfJ LqUIdFOXKDg9ZmlpBsiXRDXNNytRrqACXGSMUuKBHtvOeqMv9sZXQaHW80XeCvAvYbLPT6TcWiAM4yIG wbNQ8KLHP2RFojVJqcDNVFQY8KLNhbQGEzRgSyvvGirLMhBYjeYM4TKZRjmqVsHYrjLTUKFIdmFL2Hnw K5GEPdZYAsNu6HTXKaSfQ3aFI0SuQjEYGEJf0+DQpl imFuRnjVYvQjQUBca8ZpPDz8EH2VCAUwYYh0gUAlVFApUr60IBXvZcgyATUlicpeKxDXeuyzaaflJb0j ZHBgWX04RkDpIhZsQTB8YiElDS5eJGckTP2GDMS2LAthZYhqJQUICO7STSpjMHTcYQwzabPphEOkXXuk HK1FDYFnhtPrQNtbZBUWIKglBY6ZwkI4KFKgZDAxOp 9RYGAzCzW8aLS3LYHbUJDRRf8+MTaqnaFtNljFEyN5XCPjc4XwTNl1VW8CISMuDPt0yXYlEPOmKFEdTN ypNQ6rzLJzSOZ6OEhumLwdYjOKbZPyLHJXSnOqcEC1QbWlVpNwLAPbIfamLMAYXTwOOhSeC6Ttk7GiZk HnLGNhLXEvS8zUQePvDXn3BC30gFdjUI4WENEyAZFv WN57QMM8LSQkUh7LOLRyRALqoqT6PrOmEGRBSaWkK19itBHwEfRmIVEKABq+Ck1WLB7uj4MxAKq7AVBs PZ8gyl8ATBiHHzJhC3BpmJbpHJDBYH9xlKMqRNY9ASKjeRZlYPkeY0Wxk2VuPNWUTAH9VTkgGI9gVETt SQGaVsNgTBIFTI4WNTCiKCJssBGpRIVqBQMwVzBoER ktLQVcLcAyDD70dFjjBO6UQGMyAIEzJK95VEO7GHCrYi9XFAMpIQGqzfO6HMLvDTTJHfMgG04ojZMpPg YgMCBSDQo+Xx7LAI2uo4WvVCf6WmOrVF9qzt2MTWdSBfKpP1YznDjeYWCEIMCys1EvYYFsZZ6dhJGmHU X7PDognVPjzhEWaNJhccrvECXiQPSnST76IjEsOyQd GIZ5BZRhCC3aAImnDR0FWNP3XMdtWkKsSULCBN8PGCfhPHC8NSfclpFkqNSnXXfxSQ9DFZTfqcIdVPou LBRLXQxvBK9JliE6EMS7XZQbUw0MPFGcOwF4kZL3NqEpGHYFXh8+JFxjsbNlLvpZQeA0MOVob5MeSWh3 TV2VCCYnGYk6pAMuKLEhNBBfTTogYW4smKYgLHT3PT Y3l8FbeHfqLuIIuY99jUqaKBBVTEN9LAasVZ8jGEAoAOI2McO2RVKFUO4BJDPwMCJvnMUhRCS6XIBaKy DzYAofUNOwJyR6EZ35sUssTI7XYMMpGJVpPL27VTE7UOXmKt6UQWEyXAGpakC1WhIoMVIBNaAwH46ywL QgNjggMCBSDQo+Mp2SUY9hx3IuOWw4QJZwYX9yae4Q VFuEPsNsF2OrbCojHMOUJR0rjRWfAAN1CLO3q6BzmWeaXoGLnY90gMmkFTGTSQX6OMniOJ9zUWCyZFR2 LcOmSCXGJS7YVZNgMSDdyIKgSHC8ZSNpDfZiPXwzBTFfFFMgMC32oCwiKK6WSZMuOOCdJW11OOS3OVAo Xq1LHPJcJJWrlnW0VjLcNCUDQvTbQ73avVLyWntcHO BSDQo+Gf8EYP7ll0CzOEq9QACuVY0nyd8COTtIKhLsQ7LzgQfrOODCMZ7uyQGoZQZ0SIJiptQvBDOxL8 jho2TzeL9eXDSWIUV2UJviHJ0sXVUqJIL2ZfStZRZGML7QPYHlMIPudHFwXKO2SDCmEeQtWLetCMMbGn Y3VV99uFdvNH1RYGFzZUEmCU61HPI5TGLeWx8FIJXb RJQkzqF3DEEzZUVLKjFlS86cwIRkQsRyMSXZZFa+Pg4LBC1vp6WfSJx4HTQkHJ8nre2VGEoOUaAiI0El iOduDPXHKDOeeMVeJRWFh0IpglJsgDPHgWIskMLeIaBSaIh2sBoplvsiJn4wOBRwGA94GaVsWaTwIYD0 SNHiML0gQYuuYH3QIIG0AUyaScqdYLVMDX9WPVtvCS J6EzFkujMxrQVjUOyhIA7QFTCjkbApUEuhQRYNLVxgXA5ZiqI2PWP9GENtDx8UAVXwNvD6hNS1TNHnSU INCj4+LNotouHhUbfDHjyoQFHjk9AxNZp3HE5OBTGiAKx8dLYfSSXhUOFbymxrIOLkPg63JFPiQddiYK EgupLxJZSaRTGrTU4bICUPRSIblOH7YxQrGsYrWOKf SQw3VoXZXZxNExTuV3Iri4AySmFyYDKfSTAmZ8jZGyJsXVR9XVLzlZkeVF8DCnFhQ1WvnyZcnCL5AeIg QVUTOnGzI6WjTKDbKbQgDHERBZuiUL7ZXQw0FHbrZXDiNa6UWm7JXmWeTI4hnq2SAgJyDXXoIqeLQmp8 SAiqHL5DhLKpSNhATCFTf2EqdrZzoTQLfsBzvvudNG NhRTHlB3ExsokaXEDutFDvA5GiSPOJBKKcuzhjeDEaPYK7NOlmQN5kPBZbXWTdMyF1SVIANM3ROEDkNS TsvJLxRIR8CFVmUfIhNPwlPGDaTUa8LA71aGoeDX4TEOFgDIWlVR51DZE7XLMtVf7DDMIeOOUxinB9CF KcLZAPBoObV01qfAKiNaYgZJMUKPu+Uf2DSN3il2Mu PJn7FvJmAG0vtb3ZHIaSCbVbA1IfdHlgRBJYDYWdyXWfDJQDc7OdcrBckDAYXXIhKdKYLBRhsiX5PFpm Or7hYZSpYI9nLaBuAqLoVNN4RludLF5nQPvqCA3BAMF3OWxhQoWhXAAFUU5GSAneRFQ7QEZrqTtmXP7J RfNkG0WepfNveRQ5PhXvAZVZYmWrB0YdESZgQkDhVJ BSDQo+Am7NRH9xq3FgMPf0GTGdUS9xrz0MMDdYQpXgD7F7kQZyI7I6HJjpVf7PFSIaSBXiIOLgIPVPXZ crXV8LNE7zfqF9KK1YpMRwCHItBOIbxWMiNBi2D33rfWHdIWrzDA4QGLF+Dulce+Ju3CCFDtIVWlNBMmLi IgRKJRSqPaB8ZhF1VHv9BcY4GdQI18dMotyjNqAPwq OH1YFH6sXFCnIUTODT2XyNHteB6sbzI6PwSoZOJYYmVyU22yuZZeXIMvHQK3ZAKsLd0HTYSaQ0NpvvLa tZxghkAdGGJhMQQSEO3ERSyriaGtbEFjqVwkWH48hYeyBJ2UKq7SJlNuKV3jcd0QsTDqXm7RRJC0LT8J LGAgVZGgFZSyFSU4ODEjVaItALvoJQIiHSHdWXV7ZP HfYNRjWY7SFaOaRBVuRoqgWVtfEUDtQVIzpt1UFKRmGCD0CGK5HLRbKWFhXZTaIXtyZETwMXYwQOZ4QP JzHHKmDV3DXfZxNSUgAEE2LlUgEZOyHSYkkj0OSKCeIXYcPzAaDEUkHWBdBOJfXSwjRROsOGL9DORuPE AkUCYcPI0TGuMgPBFcYPG0JEzhXTNuHDFhiy4SRIUi ZYJvBIE1UaLwYVFrIQGfASucODPjTTY2BCOkGLIqLNMiLC9NFyVkDEGnEOV7KmKzFBSvGKAepp4ZKVXb MIOvYiQ9MQOjUNMpESPyPBqhKKZkKHO9NZL1EJTbEDSsVC4FHkKvWGJrSSC4PPScAQKpCLRxjf0ERHWd PCWuLPU0ATTvFPXeKAVrBBpnIZEuGQI2Vpv2UYPiDC MyYY9SIqEvGOHpCqZcAOVaJEHqDPWzfc4TUKDfZFWhETC6LFAmEHMkBDHnHBgbWQQnULM0RYZ5XKUsRV IcXY5LIsGkMVWrSmE7WwRtKOPlDVNudu4PALMzYXKqQPCdTwWpBAEeJQSnXAufZZQjCPO7OqIqZWQuHB FrLW8OUtFuOUPeUoNzCmEaVCSaRYHurh5NNIUnSAMv QGOgJXEqHYUjMNBmFPqyZLZtWSZjYSXgFJHiNXJgVE3MLfTxYXNvTqXoOBugTPYuJBJsin0RKLVfBEZc AxwbRpLsJQAqIEIxALfsKYOrRLF6BVT5NEFcMRKtJD2BAxKmQZOpPQRgGXPuNURuELDvin6PUPNvDFF0 FPRnMSNgKHDnLHZcLEteNQRiTSLePTS3YHUvMADmPK 9ZKkIzCUOtXJKkQeDoKNUdSSEhcj1JYXOeATQ5XZltBtYcPTPvWMCyXZqeQDStJPA1VSXvBWTbBYKhKJ 7PDpQoGXNoZUbrFPGmYAKmQNBocb2SUHJzUGA8NLE3AJSdLFUaLNBbJVspEXYzRBEmSVB7ZGZmUNVoIR 3QKiOeGMHoINA2KKXoKSKaJGOqxt0BBAIgNMX9ZKWv VCJkVXWpQGSpFIooLTKjZHRqSum3OZHdJYLmIX8ZSjBzHOJvDEO9WJDwVPZvLMFjgx7CCGPxERI9Auc5 ASWdPHRgCAFzFClfEPTdGRBfUDLiMFDtQMQyDH9AVdHlZLDrALOlPhYmIGUrZVKvmn2RRPSkCPB5CEW1 GZJbNDXuNGKlEApfBZLzVCF1XWy4BFIcCJZjRE5KNp TeAFGfGLF1CoPrEUIcAXCtxd6LAMNdQPQ6JpX8DIVcSYNwYCErFMrtKLHhWTC7KeajLPOxUTJlGO4ISf XwWWDrSgU7MENkGEEqCMRbzu2ZUKCcPDF5AzjyMQSvBOAaIAOvIIgqLQOxUZU7LAQ9MJQvRUHmMS9AEt YoIEBiIej6YLLnMXAcEWFtjs3VSWRdDND5REO7UOSh KHCpDGWcBNiiNLZhUUF7Zzg0MCCbQDBxJV8XUaDnZNItOnx9JRIcNGKbKNFeww4TWRYfSBT0DNX5BMCd YQDpZWKaRRsvFKZrJLovBdFzTDUnSOGsJI9YYuXiAGYjMyN5ZTVsLUMuKIUygm5ZCULtMEH2FFI5MIDx WNPzATKmQZvkCYJoELqxKCS6OXRhKPBwQP7VSaAhLW DfOaRpWlZpJIYdGCRhev9RAHWzCKI9NVHlWcGuERUhLHJsVEtgOMYiYUmbLhg8FXZqGUSlNJ3PSsDwTR ZfPdN1GnCwUAKkOHCufh8WECPoAFA9NCerIPAoJBEoWJJoESlkIJJxNXcsRFAyCOWrNVBrEA8KXzQcUE UuCxRmFODoYYChXMJuwd9YHQXpEBH4XuJ2FNXnEIWb GXFzZJxaSQSsSHoxYNC7BUUfPMZnJN8WTgCvYWTwTmJ7RSZxLAIoTCBjfl1DJCKePSB5GihwNNGrAAIo USGyQMdyXBKoTVckYUO4RNHwCGJhCR5MEaKsDYRaEmCwORIvDEQzGFDlqb4RiXRolIpmbe6SSIiMEf7P gPamTIv2QKkrWx3lfBJ1OITfEYIXBu9CsbBnITJcBZ JWKPaoJNIoPCUkG9N9QOQkD6NhQOBcCfufJEsmDNRsKcK0Wng2PHezTvA8VfPnSGedZJJxXoY0KKB1JP FzWND0GsXsMOSyZrEjITH+RG7tKMt+Vu5Un4NwsaK0hrYcUNy8XrXeVI5NVGFDV7LHAv== ID Date Data Source [id number] 02/18/2020 11:57:[address] [facility] Name Value Range Interpretation Code Description Data Sudha rce(s) Supporting Document(s) Consultation [facility] VRHSFh4wZjOCCtRm22/RBPyjKPGwr7HoRFciTSm5VYquRMMtE2BrRGU8hS3rEWK4KLhSKoSqPbRhAWC0 lbm [file] ICAgICAgICAgICAgICAgICAgICAgICAgICAgICAgIC NpXKAjULImBUFjWWYsSDSdATOpAODsGTHjBQ1GJYCxIJHoJQGtODCpXYDzLMUlSVWgUWJuLZObKCDzEM AgICAgICAgICAgICAgICAgICAgICAgICAgICAgICAgICAgICAgICAgICAgICAgICAgICAgICAgICAgIC EtLXIcCKXwAS4NDIHwWPUgAFOoCHYcJTCuXUKpTZBb ICAgICAgICAgICAgICAgICAgICAgICAgICAgICAgICAgICAgICAgICAgICAgICAgICAgICAgICAgICAg UABpNTVtHBBdBOHoEJGrDJPkQA5LOWXzRCJrPIOzOIPeHSGvTVQmAXXzGCWnLZMgNKTtOTEyGDMkCTUm ICAgICAgICAgICAgICAgICAgICAgICAgICAgICAgIC UqFOOfDONlTYTdREXzHSBeQZQyICYfBMVyHPYwQE9JPIKhNSJtVUByNJItZSXnVWEmSGOxCNDzLAQxFH AgICAgICAgICAgICAgICAgICAgICAgICAgICAgICAgICAgICAgICAgICAgICAgICAgICAgICAgICAgIC HoUUNtHHMzIXHjLL7VFPWdHFLzJJTeZAMmUVGdUMXc ICAgICAgICAgICAgICAgICAgICAgICAgICAgICAgICAgICAgICAgICAgICAgICAgICAgICAgICAgICAg XCEpSZIrLBTcYLPbQKNzGVOpWWOcVF0OGCPlBKJePKMdDECfPTPwBFPoQSVdHIEuZZQmFZOnSLRiIBWh ICAgICAgICAgICAgICAgICAgICAgICAgICAgICAgIC SoDXArIIWiWNAqUAVkPEHtZFGyFLXfMZGaVELnPVDeNK5UJNUoWSFxMZWjUCFqNNSgQEZaMKVaFCRzRY AgICAgICAgICAgICAgICAgICAgICAgICAgICAgICAgICAgICAgICAgICAgICAgICAgICAgICAgICAgIC JsQREhLCKwIPAnWCDgLD8FFRTgMEUsCOGaBJPpAUSg ICAgICAgICAgICAgICAgICAgICAgICAgICAgICAgICAgICAgICAgICAgICAgICAgICAgICAgICAgICAg NNCpBNPeRBVgBSDmDEVjDCRqXSEeMUEnMN3IEBQkHAFxSAXmZHYfYZPcDIAjEXYwKWMbPUNvFPPoYBTk ICAgICAgICAgICAgICAgICAgICAgICAgICAgICAgIC IjGVAiZSNwUMVvFPFoTGClUILwCXOsNSPdFMGsDRMjCLPjEM0IEG79uJAyp0M5TWUaPR3klbi/Pg0KDQ olkvEplHWeYD4CMmWvWY5phs3VSnHzSI9nvp3UNHvKDcZmC8J9eFJcKLCmKXEMBzCuV46rPRxnPg67VQ evCIDvKzCrSCa9Yq7OOeXvJ0wwWXOxCqR8YVSxPqX0 TDUvEzU0GVXmPnGjKEYjPGZhZBXoWFMTRPN9AVJoHoZnMtBsXRGzZNypDGOCGS4RIdDjM7UrpJ01XSxQ Cj4+POdphqHcPhgBDfW4OTMcq8DdGMm9LP0KIKWjNasrx4AnBUvyXLMUCVwxWT9MXRP3XJW8FJPwDs2M LAZdE883olKcVE0NCn2KYiYxBS1pxq8LPIqnMBPaPd uYGnf0BTviTG8UmKXaAJtDf04glDd7eaNbuQFIlCRssEWLo6BzZSqgIPOESoCQGUM1IXhbOV6eFHAwFE Z2WhEsAVWWNH2BPFQbCBWsvHMnGZYgDBJEPS1IZRzfBPO1AFSkjmSgpJKwRMmkDW8NHXPurhKwGTiwSB BSDQo+Wa6IVS0hs6ZdYQg8NVAkGE9ddu6WQBwCAgSd R4Q1nWZfW9C1IAtzTh9ZJODnDNWdRCZgDRHASNiqKL7UPQ3lzuF2NI7UzOMqDTGhLMOnjNHwYEw3X41x wRKuNPbgPB9OXYM+Dulce+Cd9PYNLzEZAwNNCgDaJcMJJSDoIxK9HwN9EGx7MuJ7FmOW20rJsvysPqTTau NA6UXM0rMVSaNMDMSA8TzHDayH2dhxO9QeVqGTNJXy FwP94bwQEyQCIqCGB6DPCqJh1BSYSmQ4NtedJnyKazypZnMWHpBIUMBT9JXSfbyiFxbZBhpArsMS16fN oiCK6ECr1RBgNvCO7owy8IrOGwCw8VAEK9JT5OWLMrDONqETYqHKP1WXVuPfBoNJrqZCOnYVAmMXV1IY PoWHGmNA3EBrLiXUUkAED8TTczJWOgIVStpa0RWVNw VNO4HFN5TBGiURRrYWGwZIawVIQfGEFfKQE0EQCwKTJaGB3MUkFjVUXfEFNjGVjxDIPgFAEmui7SCWWu MVDmVIB5NHWjVOHaSFIrAXodLVMzEOA6ZOZ2JTYlUPFiBZ1UGuAkJLOiECfsVOLxULFkTSUjev5QLGBf NOJnSHb8GUHbETEtJXJzEEehDGBsXFHiSIB5DITrWC CvMP6SDfYfBVTjJKM3TTCdXBChMWXwym5IOXCtKWYkRZb9HdMpUKNcYDLlLYwcBMGbHKR6EnM6QADwGI JyXD1NOgMgHVIwAUt6MbYnYTFjNTGkpf6NQBPgJHFbOiGiUFSrDGPeTFJcSCbyAGImMNNaHrZrWKAyGZ OfOD1UErVuAQKtDxwiJnBvXWGkSLBgnf4QEZDcJFWq EAU5IoWmMTPiTULaSRhlJBXrBRU9SzZdQMKaJMPzVK5LBsApKCEpDyp9ZyhbWPDsKSKlps4HEKQoBUMe JFfhBFErDYLcCSOqBKkeBIAyQPHwLFJ3RPZiWFCfAV0PXkJeHMUwCxXpCXhkOKHcDCKpfp8IUUHqZFIe YkA3HAToMMImLWInJMofLYOfTAKeEsnfETOpBBVfHS 1JPqEqMAHaNxZ3XEweJLYaRRQpia6QTVUeZIP3Ped6PyUwFVLnVSLzBPxoOIFkCVR5OiWzDWYbSJBbHA 2QIjAvCQPhGZE2SuOzVXPlBMJelq2OVKCtPCS5AFzzITXzKFMlWJGlTCohOIFoESC2JMA5VCDvJRAzAU 6QYsLqLPTgFRX1ZSvuVASbIBGpql5WBRNzJYZ5ZHq2 SnQyLYByGSPbJBymXQAeYYR4KBI8KJNySEMoOM7JSfEnGNOlYGvsKHfvOSVzSLNfft5WULKwCUV0PrUw JXGqSHSzUMZbWLhlVHKiXHT0FUd0RSVvOWWlMK8KKiLfQHAbLDGuMFLmQCByMLEohs1YVNGmJSL7FbJ0 RmYmUJChEYYnWUtkLBToKILaSWr9QZViXCVdZP2SNg VgPHLaBIArUoCbRPVaCMYqsk7RFXFvSEQ0ZaU0WhMrKVVvYIWeMTwmRECzFBHjVAa8PTErWYGwPR2HTd KoYTHtUDP8RzsyUPXbXKQjpx4SEMVsNLJ4Apy7WOVzJYLmJDKcLQjkDMPzUKD6IlUiGGNpCDGqWX5OIp BjXEHxMIZ3MgUmYVZkIHZuqi3AVOXfJYP8JMs3BbVf YTHsBCTjEBubKDYsGNR4FMX2YDLkVRLqJL8MAtPeCPsrPQHRQiz4FRwcB9d2AHK3MD5TX4Pfs6OtIHkz HBZIBLpoOH3yznNmGASqPm9SG1eGItmzGMAlUTFdEWN8IpleUSEvHvAzMZYnNiZ2XzTrTQQ0AH8fXWV6 MxI8VXQ5AGdoHELbDRHcQMU3TjO7LuIlBAA2GUf2Qs AgVW7EXe7MCcW1QIH4kCGeUc1BEDGjXPZWRcXwGA8ATVh= ID Date Data Source [id number] 02/18/2020 06:59:[address] [facility] Name Value Range Interpretation Code Description Data Sudha rce(s) Supporting Document(s) Color of Urine [facility] Clarity of Urine [facility] Specific gravity of Urine by Refractometry automated 1.027 1.003 -1.030 [facility] pH of Urine by Automated test strip 5.0 5.0-8.0 [facility] Protein [Mass/volume] in Urine by Automated test strip 30 mg/dL Neg [facility] Glucose [Mass/volume] in Urine by Automated test strip Neg [facility] Ketones [Mass/volume] in Urine by Automated test strip 20 mg/dL Neg [facility] Bilirubin.total [Presence] in Urine by Automated test strip Negative [facility] Hemoglobin [Presence] in Urine [facility]ukocyte [facility]ase [Presence] in Urine by Automated test strip Negative [facility] Nitrite [Presence] in Urine by Automated test strip Negati [facility] Leukocytes [#/area] in Urine sediment by Automated count 13 /HPF 0 -5 H [facility] Erythrocytes [#/area] in Urine sediment by Automated count 34 /HPF 0-3 H [facility] Epithelial cells.squamous [#/area] in Urine sediment by Auto mated count 5 /HPF None [facility] Mucus [#/area] in Urine sediment by Microscopy low power field None [facility] Crystals.amorphous [#/area] in Urine sediment by Microscopy high power field None [facility] ID Date Data Source [id number] 02/18/2020 06:59:51 PM [facility] Name Value Range Interpretation Code Description Data Sudha rce(s) Supporting Document(s) Choriogonadotropin ( test) [Presence] in Urine [facility] NEGATIVE: either no HCG or too low to de tect, <20 mU/mL Specific gravity of Urine by Refractometry 1.027 1.003-1.030 [facility] ID Date Data Source [id number] 02/18/2020 07:19:38 PM [facility] Name Value Range Interpretation Code Description Data Sudha rce(s) Supporting Document(s) Amphetamine [Presence] in Urine by Screen method Negative [facility] Benzodiazepines [facility]Presence[facility] [Presence] in Urine by Screen method Negative [facility] Benzoylecgonine [Presence] in Urine by Screen method [facility] Methadone [Presence] in Urine by Screen method Negative [facility] Opiates [Presence] in Urine by Screen method Negative [facility] Oxycodone [Presence] in Urine by Screen method Negative [facility] Fentanyl+Norfentanyl [Presence] in Urine by Screen method Negative [facility] Service comment [facility] Results below the indicated cutoff (ng/m L), are reported as"Negative." Note: for medical purposes only; not valid for legalor employment testing. ID Date Data Source [id number] 02/18/2020 07:03:19 PM [facility] Name Value Range Interpretation Code Description Data Sudha rce(s) Supporting Document(s) Leukocytes [#/volume] in Blood by Automated count 10.2 10*3/uL 4-10 H [facility] Erythrocytes [#/volume] in Blood by Automated count 4.22 10*6/uL 4.1- 5.3 [facility] Hemoglobin [Mass/volume] in Blood 13.2 g/dL 11.5-15.5 [facility] Hematocrit [Volume Fraction] of Blood by Automated count 37.7 % 3 6-45 [facility] Erythrocyte mean corpuscular volume [Entitic volume] by Auto mated count 89.2 fL 80-96 [facility] Erythrocyte mean corpuscular hemoglobin [Entitic mass] by Automated count 31.2 pg 27-33 [facility] Erythrocyte mean corpuscular hemoglobin concentration [Mass/volume] by Automated count 34.9 g/dL [facility].0-[facility] distribution width [Ratio] by Automated count 12.7 % 11.5-14.5 [facility] Platelets [#/volume] in Blood by Automated count 267 10*3/uL 150-400 [facility] Differential cell count method - Blood [facility] Neutrophils/100 leukocytes in Blood by Automated count 66 % [facility] Lymphocytes/100 leukocytes in Blood by Automated count 27 % [facility] Monocytes/100 leukocytes in Blood by Automated count 6 % [facility] Eosinophils/100 leukocytes in Blood by Automated count 1 % [facility] Basophils/100 leukocytes in Blood by Automated count 0 % [facility] Neutrophils [#/volume] in Blood by Automated count 6.75 10*3/uL 1.8-7 .0 [facility] Lymphocytes [#/volume] in Blood by Automated count 2.75 10*3/uL 1.2-4 .0 [facility] Monocytes [#/volume] in Blood by Automated count 0.64 10*3/uL 0-0.8 [facility] Eosinophils [#/volume] in Blood by Automated count 0.05 10*3/uL 0-0.5 [facility] Basophils [#/volume] in Blood by Automated count 0.04 10*3/uL 0-0.2 [facility] Nucleated erythrocytes/100 leukocytes [Ratio] in Blood by Automated count 0 /100{WBCs} 0-0 [facility] ID Date Data Source [id number] 02/18/2020 07:27:29 PM [facility] Name Value Range Interpretation Code Description Data Sudha rce(s) Supporting Document(s) Acetaminophen [Mass/volume] in Serum or Plasma 10.0-30.0 L [facility] ID Date Data Source [id number] 02/18/2020 07:27:29 PM [facility] Value Range Interpretation Code Description Data Sudha rce(s) Supporting Document(s) Ethanol [Mass/volume] in Serum or Plasma Negative [facility] Hospital ID Date Data Source [id number] 02/18/2020 07:27:29 PM [facility] Value Range Interpretation Code Description Data Sudha rce(s) Supporting Document(s) Bicarbonate [Moles/volume] in Serum 23 mmol/L 22-29 [facility] Chloride [Moles/volume] in Serum or Plasma 101 mmol/L 98-107 [facility] Creatinine [Mass/volume] in Serum or Plasma 0.49 mg/dL 0.50-0.90 L [facility] Glucose [Mass/volume] in Serum or Plasma 88 mg/dL 70-140 [facility] Potassium [Moles/volume] in Serum or Plasma 4.4 mmol/L 3.4-5.1 [facility] Sodium [Moles/volume] in Serum or Plasma 136 mmol/L 136-145 [facility] Urea nitrogen [Mass/volume] in Serum or Plasma 11 mg/dL 6-20 [facility] Anion gap 3 in Serum or Plasma 12 mmol/L 8-15 [facility] Osmolality of Serum or Plasma by calculation 281 mosm/kg 275-300 [facility] Creatinine/Urea nitrogen [Mass Ratio] in Serum or Plasma 22 [facility] Calcium [Mass/volume] in Serum or Plasma 8.9 mg/dL 8.6-10.0 [facility] Glomerular filtration rate/1.73 sq M pre dicted among non-blacks [Volume Rate/Area] in Serum or Plasma by Creatinine-based formula (MDRD) >6 0 [facility] Glomerular filtration rate/1.73 sq M pre dicted among blacks [Volume Rate/Area] in Serum or Plasma by Creatinine-based formula (MDRD) >60 [facility] ID Date Data Source [id number] 02/18/2020 07:27:29 PM EDT [facility] Value Range Interpretation Code Description Data Sudha rce(s) Supporting Document(s) Salicylates [Mass/volume] in Serum or Plasma 3.0-30.0 L [facility] ID Date Data Source [id number] 02/18/2020 07:27:29 PM EDT [facility] Value Range Interpretation Code Description Data Sudha rce(s) Supporting Document(s) Thyrotropin [Units/volume] in Serum or Plasma 2.420 u[IU]/mL 0.270-4. 200 [facility] ID Date Data Source [id number] 02/18/2020 10:45:03 AM EDT [facility] Value Range Interpretation Code Description Data Sudha rce(s) Supporting Document(s) ED Provider Note [facility] WHUFUd5wUtBURgAj43/RSUycZOLbb5GeELscEIt2CTeoJOBoK7ZsEOC1kW6gZBJ2NQmCBuSnMsTrRMT6 lbm [file] ZDTbUHCcgYUuLKk4I35wxMBpCKcvBP7ZXEW+Dulce+Sn1GDDXsJASfLQItDzCcRFMSNkRtF5YmJ6ZWe2Ln X4FySW79jFmclvSqWYtdPN3ITK4oPXRhDQANAZ6ThKXxzH8hpcJ6MqXjBBSGRjViX42clENnZUTyTWK9 QUQqSk7YFBDbS3DnvyHvyKzrivOzBHBzAOVDBB5UIJ cyxyEqkFAmvCwoHG01yIdgGI6BCy6CTlFfSN9spr6GsNBzOb2ONWP2LP8UOHBsOTTsPCNqRUU8FOAbLr RoQJhqVNYaNCTrUDQ5KCUgXXSnYV4XUwKmKEFrREWrCKEnMOYeUNAqmj7KEKNlSKS1QEFhDFYmNOYiBT GhIVdcQETsZESkSZP3CSHgFWXsHY0YUoOdHMKaSLJi ZKZcVTYyGSTaze2SSXMnZWYoJfBzTTDrWISrZUWhPGbqVTQkXVT2XxS7OEFsUGLtNZ6HUzXyZRZaEIR5 BfmlVHBcNRLdnd2CBPOoQCDnVDb0DVIzIDUnIKLpYEtqAYUqOIB3AZJ6YYDwHUYyJI7EHaUsQTNkXSV2 JmNmMYHrMANity5RBDFfFJTuNQWoWdErXKWiUIVrAH jnQTUoECBxMGI3JRFfTCChTZ1WBnVzCCRvGWDmSqTaVWFzGYCjof0WCFVqTQOiAuT5VgCbIRRwNDVcJX imEQKdENG5UFZuOQFuPBGiQY3DWaUfRSJvGvC5VsZxNNTcQXBynm9BJMFbKMHrMNKkUISqTZTyAZMoZB ahRUUjQEMqLQF2NWBkIZJrRV1DSjJhEQEfVgPiZaDb JRItGUHzdr5ZTGEfKIZuNvD2WQCyYYVoIEGcWWwoZTPpAMY4KKQ0SBQlHMNpAJ3NJhXuNINfNfu8AXIv DWDwZIMgbf6UHAZzOASuJPkpBHCsDDYxGJEuWEuqFZIbOJFpBBSzQTQtOZBcYF7RBmJwRQZcQeBuYhtg NWOyBVVnhg6HBTLuYJLvMFB1GPCeDLVjOWCdUQujAQ QoWOR9HlU0HYMtITTuZX3VXmGvMMIyNmX8MbYfLDThZDLsce4XELTaWENaLWtjAcMzVXJvBHUzDUmbFO ShJJY0AGZ7ZURnYEIpCP1QPxAjRNFgOuhsMeLfYJKdXYOnuy3GQIUgFLUuYkV0ViJaLGVsVREmQGdgUF XjWKF4OVT0FOEvUSYiXC1CWjLhHAPoTVl5VVZpCDOn HZYqio7PPQJmHRO1UQM9ZRExDZZzIZLuLZlfLVGbUYC2EhM6BBMiFOFjLM6RVaDwOXZdUCe6JFUeCCNs BWSykk7JYLVuJVB3ONq2LnXpHNUdPWAsWKwwVGIrLWTqHzv1KMXmHFXzVD0GIhDaCWWyRUV6WUTqWLWb TWKrla4SIFJgHMH4FNJ9QwCkUQEtCEEeUAgxRSAtZJ FgHRT5WJWzCHXaNU5KKqEhDQMgLKKwCKhvBIRzATRvob5JKLAtVTR4GdD7SFRgZTBsEJGtUResNDNmNM PyNezkKMSbIDApUT4CPhLcLICqUWWpREXjIZTkBDClgm4YHQOhPWM6TGU9EyCcGBVhJSCrQRqhEFVpQM J8BIJhMSEcYBWhIA6IVkKmALQuNLS2YeQyJUVtNLPj im8ZRHPcMCE7DEymMaKnTECgGQFdEEwaMOXpQYS7KDt4IHMyKRYlMI5NXqZyOJUeAVDqEkTwPSDfPLDt cj2WAIBsXRQ2JXE6WnXzQHYiFHZlXGdyAKYlSOW7SvXsKFZbNXBxLX9SPgJaIZAiZPS4VihjRHSfUQEt qu0CPVXhJHO1TVo5YBYlDTQzCJIiMMx0wuOskNApGH a7TC7VU5BcyqRcLLiJKa2Ps924UFW4TFUkXs5BP0ppXy7yLZTkVBOJBk9VAIw5G0HlFNAyVhLpVXW5GG x2KLIfK9X5GSUjXqLiJcP5RoH+WIzjHEWdXzNnCVX6FiWmBVctLNEtMIWcAiAxURJeAsLfAX0zXSGWDn 4+KVbadPVzeSplMGPXNdA9QxE1BVmkAJDJMk0S ID Date Data Source [id number] [facility] Interpretation Code Description Data Sudha rce(s) Supporting Document(s) Glucose [Mass/volume] in Capillary blood by Glucometer 114 mg/dL 70- 140 [facility] ID Date Data Source [id number] 02/17/2020 04:34:14 PM EDT [facility] Name Value Range Interpretation Code Description Data Sudha rce(s) Supporting Document(s) Consultation [facility] XQDGGx0tDeXPRwHd78/SMTjmKFBzu3KrJMhiAUf1HJbaDHYaK4NaDVS2uS7kUBY6JUhQNlIlZsMiKNV7 lbm [file] AgICAgICAgICAgICAgICAgICAgICAgICAgICAgICAgICAgICAgICAgICAgICAgICAgICAgICAgICAgIC AgICAgICAgICAgICAgICAgICAgDQogICAgICAgICAg ICAgICAgICAgICAgICAgICAgICAgICAgICAgICAgICAgICAgICAgICAgICAgICAgICAgICAgICAgICAg ICAgICAgICAgICAgICAgICAgICAgICAgICAgICAgDQogICAgICAgICAgICAgICAgICAgICAgICAgICAg ICAgICAgICAgICAgICAgICAgICAgICAgICAgICAgIC AgICAgICAgICAgICAgICAgICAgICAgICAgICAgICAgICAgICAgICAgDQogICAgICAgICAgICAgICAgIC AgICAgICAgICAgICAgICAgICAgICAgICAgICAgICAgICAgICAgICAgICAgICAgICAgICAgICAgICAgIC AgICAgICAgICAgICAgICAgICAgICAgDQogICAgICAg ICAgICAgICAgICAgICAgICAgICAgICAgICAgICAgICAgICAgICAgICAgICAgICAgICAgICAgICAgICAg ICAgICAgICAgICAgICAgICAgICAgICAgICAgICAgICAgDQogICAgICAgICAgICAgICAgICAgICAgICAg ICAgICAgICAgICAgICAgICAgICAgICAgICAgICAgIC AgICAgICAgICAgICAgICAgICAgICAgICAgICAgICAgICAgICAgICAgICAgDQogICAgICAgICAgICAgIC AgICAgICAgICAgICAgICAgICAgICAgICAgICAgICAgICAgICAgICAgICAgICAgICAgICAgICAgICAgIC AgICAgICAgICAgICAgICAgICAgICAgICAgDQogICAg ICAgICAgICAgICAgICAgICAgICAgICAgICAgICAgICAgICAgICAgICAgICAgICAgICAgICAgICAgICAg ICAgICAgICAgICAgICAgICAgICAgICAgICAgICAgICAgICAgDQogICAgICAgICAgICAgICAgICAgICAg ICAgICAgICAgICAgICAgICAgICAgICAgICAgICAgIC AgICAgICAgICAgICAgICAgICAgICAgICAgICAgICAgICAgICAgICAgICAgICAgDQogICAgICAgICAgIC AgICAgICAgICAgICAgICAgICAgICAgICAgICAgICAgICAgICAgICAgICAgICAgICAgICAgICAgICAgIC AgICAgICAgICAgICAgICAgICAgICAgICAgICAgDQo8 C5hxHNSjTXSpVY3jMKa6Iq1+ZJeHCjQrRTI4gaEldR0VYJ2do9EtIWcgPJQyi1VhFJm3JS2YGXTnTCiz HS9DPGgwid5ZKEGqBFJnzDUGn5iyVsCfDKO3WGFqLdazVS7FTBPgT9itioMmJFTkRPXWNHxuSWBTDHtg LPAABHMaFXEbYvXoNeQgBAPrPJYcRXXUCMA8QDGrHe XnZQClENMjBL8TVDRbX709biWhFJ0WQp1GYcFfDS5vda1KKFHwVRItDavFPvy2KHzzBP0ZaTBajNJ9PF PvPKRZEhFlY4zbr9BpTNLbJZTMNFesLW2Ua6LknDFuXPi+Mx6VEA3jo3KrSEm2CYLpWF5lao5CSJnPWq GkC1LlhHxxAAOyhwC3mLOjWKC8DMQmakrmqD3uqQIe OEceKNItzGZuvLxjQN3tSXHsGH16NcBmNuZhPDE9EHziKW7pRCyyCJ1AZCJ9MIjtPWYyYOMjS0iAUrAl JPTnAeXygGieRT2XYrMdT4IigoBmfYG3LSNbSGQIKf3+FTskfhCtMyaPXgJoRUXmt0FrELt5NU4OTFHt AArkYB6YLTSfaW4qVNzdJF4SAbW6YRZxLWPCAcTsO1 3saJNoJVk2E9YnGtFqMFJmFgneFCBtVYizDvHjKKWbDoYtJEbqRM7+ID4+UWpdGS0KZKekhnKuWZIxQg 9AEWFjMKReAZ3vLZKtBMXjN8Z1vSjhTRAJHmKjD0iajxlqBR7gWYNnZ180hAvnanEqBOQgGXMyWc6AQM GfSAO3WEBzuULbGIpmRQMDRXhnAD5BmTXkRYJ2zU6l FHzpIVKsSQKbF2iULkVijVhtHH22wWoswjBcgPQxOXd+Tx7CTR4vn5GdFPu9hnYeEPiqUUMpLEnkQJQc EMIyJYHzNEL1YJQ9AOMKLnDyWOZiSLGtYUyzLIXoTNKvwy6UMVSdVOV9PxNvZMYfDXTdDFZnKVidMCTe QNG6ZpD3PIBvPAWtAQ7DLjVrYBTiNDOvBAdmWSMlXL Tjal7XDLGqLDWoRJC2JTCjRJQgWTMdHHrrJGVsWPF4NsW0MBGjRVWiRR1ROgChMKNfZLh8VrGiOHPeRK Oyil0DIMPxWLQbSiJ0IOJwXWJkAJMeZCdoICJjMHLkRQN9KVUuCGLvDZ2KUiEbZASxASOqNGumECNsCO Guru9PWPKrNGAqGDGwIxLiUDFlTKQnCDdmHDFvCXR8 LGL3JFEwYKLrCP3RDgLxUYHmGTm9LNXkCPYeTJSunx3FDRUdACQiRUa8IBIbMWLpAQCiOTgqKTGsCIGk Vex4WBTwUXSjFG1ZXnPyWRKcAvZ8DCSlNBYeKABdwr7VAOGsWTQfAhY0HfFvRGGlZZMzHYhkEHXyEGX5 Xde3PFRuBQStXK2BBrSnVRZuBvW2PMEeAWSgWNQmxo 6KJVAlADUtSJE6NSMnUIRfIOGnPRgjFEMbGZGwSEQdMPSaMPDcFC3LGhFkSDEuKuIyVKysBLXcWQYbee 7IHHZkBVXmKfW0QSVhUIVgKTDdFIkzAVVrZDGuPcQ2VPZvPYBmGC3FBvVhVPCpNhS2ZOKyLMYdXFUiwz 9GNRNpVBCtCvqnDLBgIZKvDVIaXGlnSSWcIWK3Uhk6 SNXuHEBiFB6MSwTkQAHoQkI0SUIvKWPaRBErjh1XHQTyQAMvIGI5DQWaEEIjANOqLIiaSWRbRTH4GGK5 HZAmMWYdBZ7WUvPpJGEfGZC4ASCsQNOiLUZvkb4MDBMpSGO1Tcg7ROHoSUNjYYXtKJweCTIdSUG3QnHu ECJfJUYsFM4MRhTwRDWpGBacVyXnFYTdVZGrtp5JCV YhOWN4XOArYOOlVOGnYXYzDZhnKJJjTGV5OWG9AGZqYTItUY5BHvLtDGOmURz8ONVlYECnHKJkqj2HJJ XdUSW6MAVmGZOpIMQiTXVtIJabAIGpHBO3NMCaDMGrYWGqHZ1SMhPrVOAsCRSyNSDjSOJhNAWlln6VHP KmMTX2UHk4OXMiNOVfGCMoGXikFWUpTJI0ACmsKRAx SRImKY1NUsYaZCNtGTD2DCFvKAYfNDXoha6UAXFtYIF8NRC5QRHvVAYbOIRcKFekJDNoIHM6Fxj5TXCu IVDeGJ3ZJtPjZCJaCILrGBrvZWPsIFBqux5OKKYxNUL3BnU2BONbELOlNQJtGGfnRAQcHVH0Sjr4BVJb UQLuTU1NZfTtLUUtJNN2NvzkHLGrHUUxtg4RUDXuPC G9TGI4XnYbXAAzJKKjSDcxKJGdKMR0UBBaYVRhPVQnTM2UTrOdSCGnAYl5QKFnBOByFKXugd2BmDElyM eurx8LZWlISg5McXwbHVZrDNfkBg2giZP1XvCvABQECp9FjrWeJTLtNSCVRAqdLZDyCJe6XBBlZWD2PU CzTOBuEta8WOEdWZsiJeTwHmWhLCYtVbH9UVF4OmU2 EgV8EqWqWDJyRDb7ADX6Y5PgBiWfPdCxBFK+FD7jGJr+Vt3Du9CbmnB0lyCaCZu7LKhbId0OBLCRA5BH Cg== ID Date Data Source [id number] 02/17/2020 12:30:[address] [facility] Name Value Range Interpretation Code Description Data Sudha rce(s) Supporting Document(s) Discharge Summary [facility] CANHLy6pDeKNZwQm64/AZNjpMHYnh0VkALtyGXv9IFarDKLjB1BtEDA1jA8cZVV8UQbSJoBcAgUnBSW6 lbm NlNldBHfWiPVHeKxfJAdQzXFdgFwspmPAwDJ9RgLK0LMGkU28iDYDdJAQrZ8NsZAA4Zfe+Uy7VNESwgU VwYT6ZIozJ7Chup8m4Zc9+cI1NWPg1jquRRc66TY5wpOn2v6Sp6p4yKkPKkKRNf0iqjXQeLn/3j5BL2y DCBVMckmEfklyh8KAqAj3OH2VRrz/5Gpdg74aqog7r fg0lI+Mp+yuraIbmD5aiq41TAhXCoFCI3ncpT1wbOax7BpvpShH8B2KgSPdWasDMXrcQUAN2oZh/fC6K 4JL6uDcjLd6N6KKgkDb0ICUMVkjKbb8+JKP/plXVgYwbr5iEqLnm1/v1HK50q7xvIldFEtajNKaKLSvO jxl7NxGv466CwbvEBo1z3XVRJ4i+ScP3foFeJyev93 /au5KRXQH1U9lKO6dCRImsT1/9JCPMoFr7WhY7P5vNVg3a5/TvVrxq4Y7Mp9N/mlM00CYIuc7rMg/INDU [file] gOhrYPWEXkUrOmW1QXnqEPEQSx3H ID Date Data Source [id number] 02/17/2020 10:49:00 [place] [address] HEALTH INFORMATION MANAGEMENT ED/UC Physician Report : [id number] Signed Patient: Amy Carranza Acct:[id number] Unit : [id number] : 1995 Arrival Date: 02/17/20 Age/Sex: 25 / F Arrival Time: 1016 Copies to: Harriet Marie DO General Adult HPI/ROS General Chief Complaint: Physical Examination Stated Complaint: Confused Stated Complaint: Confused Source: Patient and I have reviewed available Ancillary/nursing staff documentation Mode of arrival: EMS Limitations: Reports No limitations History of Present Illness Initial Comments: patient reports that she was at [facility] and started to feel dizzy. A bystander gave her soda to drink. Her symptoms resolved. Patient is back to baseline. Patient was discharged from emergency room recently with a diagnosis of UTI. At this time patient does not have any complaints. She would like to be discharged. Related Data Home Medications Medication Instructions Recorded escitalopram oxalate 5 mg PO DAILY 30 Days #15 tab 02/07/20 nitrofurantoin monohyd/m-cryst 100 mg PO BID #10 cap 02/17/20 [Macrobid] Allergies Penicillins Allergy (Verified 02/17/20 10:26) Review of Systems Review of Systems All systems: Reviewed and negative except as stated in HPI. General: Denies Fever and Chills Eye: Denies Eye pain ENT: Denies Ear ache and Sore throat Cardiac: Denies Chest pain and Palpitations Respiratory: Denies Cough and Shortness of Breath GI: Denies Pain, Nausea, Vomiting and Diarrhea : Denies Dysuria Neuro: Denies Headache, Dizziness and Weakness Musculoskeletal: Denies Neck Pain and Back Pain Skin: Denies Bruising and Rash Psychiatric: Denies Anxiety and Depression Social History Social History Other: 25-year-old female, no kids, on SSD, currently living with her grandmother. History of Smoking/Tobacco Use: Never Smoker Alcohol use: Reports None Drug use: Reports None Occupation: On [employer] Lives with: Reports Family PMH/PSH PMH/PSH Medical History No pertinent past medical history Surgical History No pertinent past surgical history (Surgical) Family History Other Patient denies significant medical history Physical Exam Physical Exam Physical Exam: Physical Exam General appearance: Alert and In no apparent distress Head Head Exam: Atraumatic and Normcephalic Eye Eye Exam: EOMI, Conjunctiva normal and DANNIELLE Neck Neck Exam: Full ROM and Supple Cardiac Cardiac: Present: Regular rate and rhythm Heart Sounds: Present: S1 and S2 Lung/Chest Lung/Chest Exam: Clear, Normal Exchange and No chest wall tenderness Abdomen Abdominal Exam: Bowel sounds normal, Soft, Nondistended and Nontender Lower Extremity Lower Extermity Normal: Full ROM and Nontender Neuro Neuro Normal: Alert, Oriented x 3, Fluent speech, Sensory normal and Strength 5/5 all extremities Psych Psych Normal: Normal Affect Skin Skin exam: Dry, Intact and Warm Course Course Course Narrative: 10:52 a.m. patient is back to her baseline. Her symptoms most likely vasovagal in nature. Patient would like to be discharged. Vital Signs Vital signs: Vital Signs 02/17/20 10:26 Temperature 98.2 F Pulse Rate 107 H Respiratory Rate 18 Blood Pressure 140/90 H O2 Sat by Pulse Oximetry 98 Discharge Plan Disposition Clinical Impression: Pre-syncope Provider stated Dispo: Discharged Condition: Stable Instructions: Near Syncope (ED) Activity Restrictions/Additional Instructions: please continue to take your regular medications as prescribed. Follow up with primary care doctor in 2-3 days. Return to emergency room for worsening condition or any concerns. Prescriptions: No Action escitalopram oxalate 10 mg Tablet 5 mg PO DAILY 30 Days Qty: 15 RF: 0 nitrofurantoin monohyd/m-cryst [Macrobid] 100 MG capsule 100 mg PO BID Qty: 10 RF: 0 Referrals: Harriet Marie DO [Primary Care Provider] - 2-3 days Patient agreeable to discharge: Patie nt/Guardian understands and is agreeable to discharge plan Provider in triage note Vital Signs Vital Signs: I O (Last 24 Hours) 02/15/20 02/16/20 02/17/20 23:59 23:59 23:59 Other: Weight 100 kg Vital Signs (Last 8 Hours) Temp Pulse Resp BP Pulse Ox 02/17/20 10:26 98.2 F 107 H 18 140/90 H 98 Date/Time <<Signature on File>> Initializing User: Candice Arrieta MD 02/17/20 1049 Signed by: Candice Arrieta MD 02/19/20 0720 Name Value Range Interpretation Code Description Data Sudha rce(s) Supporting Document(s) ID Date Data Source [id number] 02/17/2020 07:35:00 AM EDT [facility] Run: 02/18/20 0914 INTERFACED REPORT Name: GangaMay M Age/Sex: 25/F Location: ED Acct: [id number] Unit: [id number] Status: DEP ER Room/Bed: Re02/17/20 Disch: Att Dr: Radu Pabon MD Specimen #: [id number] Ordered : 02/17/2010/02/734 Collected : 02/17/2010/03/715 By: JOHN Received: 02/17/2010/03/719 By: ROCIO Source: URINE CC Specimen Description: Procedure Result - COLONY COUNT Final COLONY COUNT GREATER THAN 100,000 CFU/ML URINE CULTURE Final PRESENCE OF 3 OR MORE ORGANISMS-SPECIMEN MAY BE CONTAMINATED SUGGEST REPEAT END OF REPORT Name Value Range Interpretation Code Description Data Sudha rce(s) Supporting Document(s) COLOR,UR YELLOW YELLOW [facility] APPEARANCE,UR CLOUDY CLEAR A [facility] PH,UR 7.0 5.0-8.0 [facility] SPECIFIC GRAVITY,UR 1.000 1.002-1.035 L [facility] PROTEIN,UR NEGATIVE MG/DL NEGATIVE [facility] GLUCOSE, UR NEGATIVE MG/DL NEGATIVE [facility] KETONES,UR NEGATIVE MG/DL NEGATIVE [facility] OCCULT BLOOD,UR LARGE NEGATIVE A [facility] NITRATE,UR NEGATIVE NEGATIVE [facility] LEUKOCYTE ESTERASE ,UR LARGE NEGATIVE A [facility] BILIRUBIN,UR NEGATIVE NEGATIVE [facility] UROBILINOGEN,UR 0.2-1.0 EU MG/DL NEG-0-1.0 [facility] RBC,UR 3-9 PER HPF 0-2 A [facility] WBC,UR 5-9 PER HPF <5 A [facility] URINE EPITH RARE PER/LPF FEW-MOD [facility] BACTERIA,UR MODERATE PER HPF NONE [facility] MUCUS,UR RARE PER HPF NONE SEEN [facility] ID Date Data Source [id number] 02/18/2020 09:14:00 AM EDT [facility] Run: 02/18/20 0914 INTERFACED REPORT Name: Amy Carranza Age/Sex: 25/F Location: ED Acct: [id number] Unit: [id number] Status: DEP ER Room/Bed: Re02/17/20 Disch: Att Dr: Radu Pabon MD Specimen #: [id number] Ordered : 02/17/2010/02/734 Collected : 02/17/2010/03/715 By: JHON Received: 02/17/2010/03/719 By: ROCIO Source: URINE CC Specimen Description: Procedure Result - COLONY COUNT Final COLONY COUNT GREATER THAN 100,000 CFU/ML URINE CULTURE Final PRESENCE OF 3 OR MORE ORGANISMS-SPECIMEN MAY BE CONTAMINATED SUGGEST REPEAT END OF REPORT Name Value Range Interpretation Code Description Data Sudha rce(s) Supporting Document(s) ID Date Data Source [id number] 02/17/2020 07:32:00 AM EDT [facility] Name Value Range Interpretation Code Description Data Sudha rce(s) Supporting Document(s) HCG QUALITATIVE SPECIMEN URINE [facility] ID Date Data Source [id number] 02/17/2020 07:32:00 AM EDT [facility] Name Value Range Interpretation Code Description Data Sudha rce(s) Supporting Document(s) [facility]CG RESULT,U NEGATIVE [facility] Reference range is Negative To ensure best sensitivity, first morning void is recommended. Dilute, low specific gravity urine may give a falsely negative result. If is suspected, repeat testing with a new specimen 48-72 hours later. ID Date Data Source [id number] 02/17/2020 05:30:00 AM EDT [address] [address] HEALTH INFORMATION MANAGEMENT ED/ Physician Report : [id number] Signed with Josh Patient: Amy Carranza Acct:[id number] Unit : [id number] : 1995 Arrival Date: 02/17/20 Age/Sex: 25 / F Arrival Time: 520 Copies to: Harriet Marie DO Abdominal Pain HPI/ROS General Chief Complaint: Complex/Multi-System Present Stated Complaint: abd pain Stated Complaint: abd pain Source: Patient and I have reviewed available Ancillary/nursing staff documentation Mode of arrival: EMS Limitations: Reports No limitations History of Present Illness Initial Comments: patient is coming with 1 day history of lower abdominal, suprapubic pain and tenderness. Denies any urinary symptoms any nausea vomiting. Patient was just discharged from [facility] [place] for suicidal ideation. She stated her symptoms started after being discharged. there is another version of the story by the patient was discharged and an ambulance taking her home where she lives with her grandmother but the grandmother refused to take her home that when thepatient started having abdominal pain and called an ambulance to come to the hospital Onset/Timin Time interval: Days(s) Location: Reports Suprapubic Radiation: Reports None Severity: Reports Mild Severity scale (1-10): 1 Quality: Reports Aching Consistency: Reports Intermittent Improves With: Reports Nothing Worsens With: Reports Nothing Associated Symptoms: Reports Denies other symptoms Related Data Home Medications Medication Instructions Recorded escitalopram oxalate 5 mg PO DAILY 30 Days #15 tab 02/07/20 Allergies Penicillins Allergy (Verified 02/17/20 05:35) Review of Systems Review of Systems All systems: Reviewed and negative except as stated in HPI. General: Denies Fever and Chills ENT: Denies Ear ache and Sinus congestion Cardiac: Denies Chest pain and Palpitations Respiratory: Denies Cough and Dyspnea on exertion GI: Reports Pain; Denies Nausea and Vomiting : Denies Dysuria and Frequency Social History Social History Other: 25-year-old female, no kids, on SSD, currently living with her grandmother. History of Smoking/Tobacco Use: Never Smoker Alcohol use: Reports None Drug use: Reports None Occupation: On [employer] Lives with: Reports Family PMH/PSH PMH/PSH Medical History No pertinent past medical history Surgical History No pertinent past surgical history (Surgical) Family History Other Patient denies significant medical history Physical Exam Physical Exam General appearance: Alert, In no apparent distress and Anxious Head Head Exam: Atraumatic and Normcephalic Eye Eye Exam: EOMI and DANNIELLE Neck Neck Exam: Full ROM and Supple Cardiac Cardiac: Present: Regular rate and rhythm, Dorsalis pulses normal equal and Radial pulses normal equal Murmur: Present: None Heart Sounds: Present: S1 and S2; Absent: Gallops and Rubs Lung/Chest Lung/Chest Exam: Clear, Normal Exchange and No chest wall tenderness Abdomen Abdominal Exam: Bowel sounds normal, Soft, Nondistended, Nontender and No guarding Back Back Exam: Full ROM and No Deformity Location of Back Tenderness: CVA: Neg Lower Extremity Lower Extermity Normal: Full ROM and Nontender Psych Psych Normal: Other ( flat affect) Psych Abnormal: Anxiety Skin Skin exam: Dry and Intact Medical Decision Making/CCT Medical Decision Making Medical Decision Making: still waiting for urine sample. Will sign out the case for Dr. Arrieta Discharge Plan Disposition Clinical Impression: Abdominal pain Qualifiers: Abdominal location: lower abdomen, unspecified Qualified Code(s): R10.30 - Lower abdominal pain, unspecified Provider stated Dispo: Still a Patient Condition: Stable Prescriptions: No Action escitalopram oxalate 10 mg Tablet 5 mg PO DAILY 30 Days Qty: 15 RF: 0 Referrals: Harriet Marie DO [Primary Care Provider] - Date/Time <<Signature on File>> Initializing User: Radu Pabon MD 02/17/20 0530 Signed by: Radu Pabon MD 02/17/20 0659 ADDENDUM EDM Addendum Disposition Clinical Impression: UTI (urinary tract infection) Abdominal pain Qualifiers: Abdominal location: lower abdomen, unspecified Qualified Code(s): R10.30 - Lower abdominal pain, unspecified Addendum Addendum: 7:[address] Arrieta: Patient was signed out to me by Dr. aPbon to follow- upon urinalysis. Patient has positive urinalysis. Patient is sleeping in the exam room comfortably. I will start her on antibiotics. Patient is comfortable with discharge plan. Discharge Plan Disposition Clinical Impression: Abdominal pain Qualifiers: Abdominal location: lower abdomen, unspecified Qualified Code(s): R10.30 - Lower abdominal pain, unspecified Provider stated Dispo: Still a Patient Condition: Stable Prescriptions: New nitrofurantoin monohyd/m-cryst [Macrobid] 100 MG capsule 100 mg PO BID Qty: 10 RF: 0 No Action escitalopram oxalate 10 mg Tablet 5 mg PO DAILY 30 Days Qty: 15 RF: 0 Referrals: Harriet Marie DO [Primary Care Provider] - Addendum Signed By: Candice Arrieta MD <<Signature on File>> Signed Date/Time: 02/17/20 0755 Addendum Co- Sign By: Co-Sign Date/Time: Name Value Range Interpretation Code Description Data Sudha rce(s) Supporting Document(s) ID Date Data Source [id number] 02/17/2020 04:39:[address] [facility] Name Value Range Interpretation Code Description Data Sudha rce(s) Supporting Document(s) Consultation [facility] [id number]/GJCveQDRtj9ZmERjkMSe7ELmoCIDdI5OyVGP2uE8yVLT1JHiHPbRiAlBpFSD7 lbm [file] AgICAgICAgICAgICAgICAgICAgICAgICAgICAgICAgICAgICAgICAgICAgICAgICAgICAgICAgICAgIC QhKKMmRPRyWS5VHPMrSFWeJYAfCQOtEGRbMWFeSJAe ICAgICAgICAgICAgICAgICAgICAgICAgICAgICAgICAgICAgICAgICAgICAgICAgICAgICAgICAgICAg WEVzLOMiNJBeYIEuELLiFDFpRQ2JFZDiEOYvSDKqFOSpFCKmZNJqSGAcWLKaVOJhYWVdCGDfYMNlQYBr ICAgICAgICAgICAgICAgICAgICAgICAgICAgICAgIC ExOCXsWFNjFCGxVCQrXWOxGDAjGMSyRZXeJQAkIS4YXTTuOVOmGENgNVBmSPFcSCKcDJOwUTNoHJJyAI AgICAgICAgICAgICAgICAgICAgICAgICAgICAgICAgICAgICAgICAgICAgICAgICAgICAgICAgICAgIC BmWQRyIBDmXCWfJC1BHKBdTVIrKGKeSIWcCUUwXVCy ICAgICAgICAgICAgICAgICAgICAgICAgICAgICAgICAgICAgICAgICAgICAgICAgICAgICAgICAgICAg KPKbAUToPFYrJYOaLNBzKJMoDNHwIP4YDXLsSKAxMTZqNSNkFLXdHBVgWQNiQYFlWTRnRJPmACNbJBIx ICAgICAgICAgICAgICAgICAgICAgICAgICAgICAgIC NfKWXnRJFpEKVvZCOwSUYnIFFiNCVrUBWyVWCjVHUgAB4ZHCCvEPBsCIXxUUFcEAAeHNNdYOVqNZSzKQ AgICAgICAgICAgICAgICAgICAgICAgICAgICAgICAgICAgICAgICAgICAgICAgICAgICAgICAgICAgIC MeHCKcHUIjCTTmTHAkTV9UDJEsHWJwGEXbHABxKKJz ICAgICAgICAgICAgICAgICAgICAgICAgICAgICAgICAgICAgICAgICAgICAgICAgICAgICAgICAgICAg IIDvXHHhBMKhAPEaBLYyKHNqGYTbIVPtZJ5ERDXaZSYcYGDhBIMzCRJgPFXyCYTnGVCrZPBkFLLrFLAz ICAgICAgICAgICAgICAgICAgICAgICAgICAgICAgIC ZmIIWmYOTbDNZgQWTvKKEdUOXvEMDqQYQoSOFaCNVfCGTcAK8TVEOuWFUvSYKoEVZwIBThCBLyQUEdPW AgICAgICAgICAgICAgICAgICAgICAgICAgICAgICAgICAgICAgICAgICAgICAgICAgICAgICAgICAgIC RsRBYeBXVoUFXlYWZgUUDrXX6MFM78hVRmv2B1JFJg JS5cklz/Ul2MZIjtomTcaJZfUS8CNcAiBM7nwk0HIeGpVB3fhe2UBFgFRbUmF0Z2oETcHMCuWEDWIuSq A87xTVuoFh39ETxvVTSdHnDhXAp5Xj8IRlRjT3xdXJHmCiU5LHEyBoF2PRQgCaOsFNdsUO0Hk2InqMTl DQo+Dz5SWZ3sj5RfQAvqGxUbWA5yqh9PIRnYLeTkZ2 NfgvJ8FKG8LMZwIm7WCQNtPYAmgOIfVhJdRPSEZaUpB9JjhA32BDLLQn1+VVakzjKxVelEYyJ1RGRjr3 FpMPf6HH7UCNXtTIv4gYUdK19qm6CxiGChIqitD4rbfyqmj1WtEXLFeHP0jZTwFIPHPBLNQRZ3RTupPZ 5uGZPsRZNhSuXmXPXNTE1FHSPeIBQfdATzMPNiBEPP BK9SSCdbGWI7SIAvplSmpPXuTRscUZ1MDLJlqnKbDQLkLBBPSUs+Nw6FYU5pr0CvJWtoOWQqYN9qav3W CSqJLqKmL2V5oDLkX8P5USawVv4OKNMiVUUsHEDrJNEHYPwvGI1VJH9wnsU9DZ5HyLSnJETbVGIbuPSz ZPc5H52zrXNkOShaYU3MGPK+Dulce+Oy8BMFErJOXdUB HgFxPuWTMGCmMcL5VqH7HNs7FiG7BmIY56zSjpplZmGCgcYJ1LGM7lULYqSGKDUD5TxYJvsQ0rdcRyCn BoSCHNZjZyK23mfZWcCVUyOXC7DKFhDz5UNPTzZ1ZgelYntBnpbdKrHDWxVRPSFL1DFZdoamCmeCHpoI djCR37wGcaNW0DOy0PUbCaMJ6kws1FeLTsQe5BMYNh SN1KZCBxRYClKUYsZUV0FBPrYqEuNUrvUKVmAGCfHUX8OEDfUOFgMN0FSoLoQKGjCEnoWMLuWUSpGDSu za2WTNZtUXNeZJvzJqHbPESmKTUrQLghBJUwZASeFHE6PUDcMLJvRM7KVcIeIIWlDJR9AprlCBTbOSVz jj8KIIMrUCUsJjM4JVOlORGrFFCiFVvnZDMkSMH9EP knPLAjVEEwBY7BEpXqORLlJLZoDKdwDKBeCYVmmh9UFQDySBGgWBJ4KoRbKCDeRQIaFDxmUJFsJCN2NM AdDSAuNYMcKM2RQuVwEFFlTYZ1MoIeXVQhIRMuuc5SRVAhKZFsXcA4HgGvTYSgYBAnNVflWTAzEDP3WD c6UCPuELEsDG5VFbTxNICaWQejTsEbVKHnXCLuht0X EUPdZLNqFwR9OjUmQBObRYQhMTcoLWDtLIB2SZQpCXQsFEGnAD1YSsVpRDFoELk0NWFvPWHaJTXift7E ADAxYQKmCCE8SABjEBKrIAYwBEi2ttNgxVPkUJy3XE6OZ6SjonIkNLsVWr6Le007CCA1ODUfNb0PY5mt Ht2uOMMeEKARJu6JFWb1BDA4KCFoDmBlKMYcEjFqVk D2FQG7HIG3WRWlIITnFXZ+ZMgsTcJ3NtRyFvH4KeC9UeRaJlK7VNxuFOG6HJG4LKH8Ud9xGSIYLc7+DQ squAUfvWcoYUIEQlozUBAFXfJxSZ7GYJr= ID Date Data Source [id number] 02/16/2020 11:44:[address] [facility] Name Value Range Interpretation Code Description Data Sudha rce(s) Supporting Document(s) ED Provider Note [facility] IJNFKw0nRqHWRzGl64/DYXdgJDEvj2EmXUtvRGl8INcbOZEoD8RpSTM2uX4yKEK2VLuMCkEtBrLxBDSg lbm [file] UNWQLuC2YLivVTkmIOJKIx7X ID Date Data Source [id number] 02/14/2020 07:52:[address] [facility] Name Value Range Interpretation Code Description Data Sudha rce(s) Supporting Document(s) Consultation [facility] QVWQCu2bPeGAMzVj67/CASjlIKFxs4IhTAxaUPl4QXyfYNOpG6QvRJJ6pL2mQNP5HRuWKaQcZrAsGHCn lbm [file] AgICAgICAgICAgICAgICAgICAgICAgICAgICAgICAg ICAgICAgICAgICAgICAgICAgICAgICAgICAgICAgICAgICAgICAgICAgICAgICAgICAgDQogICAgICAg ICAgICAgICAgICAgICAgICAgICAgICAgICAgICAgICAgICAgICAgICAgICAgICAgICAgICAgICAgICAg ICAgICAgICAgICAgICAgICAgICAgICAgICAgICAgIC AgDQogICAgICAgICAgICAgICAgICAgICAgICAgICAgICAgICAgICAgICAgICAgICAgICAgICAgICAgIC AgICAgICAgICAgICAgICAgICAgICAgICAgICAgICAgICAgICAgICAgICAgDQogICAgICAgICAgICAgIC AgICAgICAgICAgICAgICAgICAgICAgICAgICAgICAg ICAgICAgICAgICAgICAgICAgICAgICAgICAgICAgICAgICAgICAgICAgICAgICAgICAgICAgDQogICAg ICAgICAgICAgICAgICAgICAgICAgICAgICAgICAgICAgICAgICAgICAgICAgICAgICAgICAgICAgICAg ICAgICAgICAgICAgICAgICAgICAgICAgICAgICAgIC AgICAgDQogICAgICAgICAgICAgICAgICAgICAgICAgICAgICAgICAgICAgICAgICAgICAgICAgICAgIC AgICAgICAgICAgICAgICAgICAgICAgICAgICAgICAgICAgICAgICAgICAgICAgDQogICAgICAgICAgIC AgICAgICAgICAgICAgICAgICAgICAgICAgICAgICAg ICAgICAgICAgICAgICAgICAgICAgICAgICAgICAgICAgICAgICAgICAgICAgICAgICAgICAgICAgDQog ICAgICAgICAgICAgICAgICAgICAgICAgICAgICAgICAgICAgICAgICAgICAgICAgICAgICAgICAgICAg ICAgICAgICAgICAgICAgICAgICAgICAgICAgICAgIC AgICAgICAgDQogICAgICAgICAgICAgICAgICAgICAgICAgICAgICAgICAgICAgICAgICAgICAgICAgIC AgICAgICAgICAgICAgICAgICAgICAgICAgICAgICAgICAgICAgICAgICAgICAgICAgDQogICAgICAgIC AgICAgICAgICAgICAgICAgICAgICAgICAgICAgICAg ICAgICAgICAgICAgICAgICAgICAgICAgICAgICAgICAgICAgICAgICAgICAgICAgICAgICAgICAgICAg OCc5M9mpOYWcHTTnZC1hRTd9Oy0+TQaXInQeJSB3izAkdR5NLI3bf5XeFZvbBPQol0TlRFc8UE1ATFZr JDimSE2GMNdvsl3SDCXkPDPkrNETe8ouGnPbWNL0XZ HkZzhlOI6UDEZiR6mzppLcFFAaCDWDYW9YZhUyT4LizE13PQXZYc0+XDiugyKxHlkXSxB7GCWrq0VoUZ u2JN5KSDFaRtbda6MrEHYwDDAIJFljCG4DVXR4BQE9NKSfIj3TWCYhU695fzOdJS4GNb2JDwTaUU5jyl 8LINGiURIaZqaQBto3CVfjAX5PhBUmHPbVg69spZd2 vpVayGBThT4wBITiGqDWHTiyOKOUZKJNECG2YOqdLZ5aTINuBZN5DaMwPQQHEM0NVAMvLPXfkIWpGOGw QVWNPT5HDNvlPHR8YBPyyhPqyMUtRAzyXF3CQVFaulToVVFeTONEXGl+Ko4NCE7rp5GxUZhrFuOgJK1z vo5XLReSMzKhQ8T9qZKlE4L6WJzuEo6KQJYaFOOzGK RvFGYXWOwdPK7ZTX4jitM1OA1SgOGwVUZfVLKmaNDzKKj5X59exEMzBMqfHG7UGRU+Dulce+Pw5YDVFyBQ VkPPObCpHsVYLIPqFoD4NyV5MLf1MiE9IwSY47cLxvgjUrCQvdRC2NJT5oVQEdLXZENL7UlSBkhT4kda PjKIQfPYIFGyBeM60dqCJoPUIxLDYdYCNmQn5IMQUw L6YjgbTbcTprmcJdTEGpECOHMO4TVSweumTjgUNzaBiaMX53iHbxUC7XHa5MDsCuKB4jyr8IzSSqEg0N VBJlJk2QNPPiOCWpNWZcNSS9EDCiBzMtKNirAFRuOHYkOER2GHGpRKJsTJ1OZxNyNPCsSIC2SJJxJIMg CONqpj4JCWBkVMHzMnH0ZpAiCWPfOVFdESrhAKSbLC JlPJJ4WEVxBBTqIE9EJcFqKGGxEOV6GBIdKOMmHVLfbu8OTFDwZJZzLzr6VYIaUHLoFRWhGEazHNRiAK FoQFF3SZPtXFHfIJ6IMxLzKGZgTNUlFQQiDHKxJYQxai9CCPThJPJcRRF6GIAcOUExPWKjAKpfQTLgHU A7CqHuLBBgPRBlIS0HJmFsJCPePNX2WRPdAIKqZYSc zw2GWNJjOOSoLGNgZrZuREMhGOWjFWlqINFkSPC6KKG0OCWtQKLaYC6YBqEkAVMsLWd9RuGbCMXsZYVh vb2LWJJxZBNyIrM4OJGrUVKsINLaOGfdSWEfGHY7Fpw2MGSvNTTgYD4GBpBqUAanFXNXOol5SWuiP1n2 QJNdDg7KH3Kua9PfTKCuEMAAKVlnDB0oivEhJCWhYp 8JQ9fXAsxhFBFoG6I9BOYrC8DuBvE1O1I2Uob0BVGrRAMqUiK4ZO2mVZSsClObCAS2NFKvE6Q5EBy7HK t7FJu7YQEfFbHhWQSmYnOkVK8NUx4ENtR7DBO4yYFeFf4OCeyoWg5NLYILY3NUYn== ID Date Data Source [id number] [facility] NoneMicroorganism XXX Cult : 2019 nCoV Real-Time RT-PCR: NOT DETECTEDTest performed using the Rhe[employer]ix COVID-19 MDx Assay. This test is only for use under the Food and Drug Administration's Emergency Use Authorization.Additional information is available on the following FDA websites for health care providers and patients. https://www.fda.gov/media/974292/download , https://www .fda.gov/media/922677/download Name Value Range Interpretation Code Description Data Sudha rce(s) Supporting Document(s) ID Date Data Source [id number] 02/14/2020 06:09:00 AM [facility] Service Cmnt XXX-Imp : NoneMicroorganism XXX Cult : 2019 nCoV Real-Time RT-PCR: NOT DETECTEDTest performed using the Rheonix COVID-19 MDx Assay. This test is only for use under the Food and Drug Administration's Emergency Use Authorization.Additional information is available on the following FDA websites for health care providers and patients. https://www.fda.gov/media/533989/download , https://www .fda.gov/media/852067/download Name Value Range Interpretation Code Description Data Sudha rce(s) Supporting Document(s) Microorganism identified in Unspecified specimen by [facility] This lab was ordered by [facility] and reported by [facility]. ID Date Data Source [id number] 02/13/2020 04:11:11 PM [facility] Name Value Range Interpretation Code Description Data Sudha rce(s) Supporting Document(s) [facility] OVXZCk9xIuAEIkKb12/CSHjbOTLmx0PpKUujFOy6XSgwASElB7EtAQI7xL3zBZB3HWsXZsYcMzLjDWHd lbm [file] ICAgICAgICAgICAgICAgICAgICAgICAgICAgICAgICAgICAgICAgICAgICAgICAgICAgICAgICAgICAg ICAgICAgICAgICAgICANCiAgICAgICAgICAgICAgIC AgICAgICAgICAgICAgICAgICAgICAgICAgICAgICAgICAgICAgICAgICAgICAgICAgICAgICAgICAgIC AgICAgICAgICAgICAgICAgICAgICAgICANCiAgICAgICAgICAgICAgICAgICAgICAgICAgICAgICAgIC AgICAgICAgICAgICAgICAgICAgICAgICAgICAgICAg ICAgICAgICAgICAgICAgICAgICAgICAgICAgICAgICAgICANCiAgICAgICAgICAgICAgICAgICAgICAg ICAgICAgICAgICAgICAgICAgICAgICAgICAgICAgICAgICAgICAgICAgICAgICAgICAgICAgICAgICAg ICAgICAgICAgICAgICAgICANCiAgICAgICAgICAgIC AgICAgICAgICAgICAgICAgICAgICAgICAgICAgICAgICAgICAgICAgICAgICAgICAgICAgICAgICAgIC AgICAgICAgICAgICAgICAgICAgICAgICAgICANCiAgICAgICAgICAgICAgICAgICAgICAgICAgICAgIC AgICAgICAgICAgICAgICAgICAgICAgICAgICAgICAg ICAgICAgICAgICAgICAgICAgICAgICAgICAgICAgICAgICAgICANCiAgICAgICAgICAgICAgICAgICAg ICAgICAgICAgICAgICAgICAgICAgICAgICAgICAgICAgICAgICAgICAgICAgICAgICAgICAgICAgICAg ICAgICAgICAgICAgICAgICAgICANCiAgICAgICAgIC AgICAgICAgICAgICAgICAgICAgICAgICAgICAgICAgICAgICAgICAgICAgICAgICAgICAgICAgICAgIC AgICAgICAgICAgICAgICAgICAgICAgICAgICAgICANCiAgICAgICAgICAgICAgICAgICAgICAgICAgIC AgICAgICAgICAgICAgICAgICAgICAgICAgICAgICAg ICAgICAgICAgICAgICAgICAgICAgICAgICAgICAgICAgICAgICAgICANCiAgICAgICAgICAgICAgICAg ICAgICAgICAgICAgICAgICAgICAgICAgICAgICAgICAgICAgICAgICAgICAgICAgICAgICAgICAgICAg ICAgICAgICAgICAgICAgICAgICAgICANCjw/eHBhY2 tpaNSgxoM9I3zyQg6TTo6ASU9zp6GsWQOlVVmwqaYeRdrJKxEdQPDtDvpJWyo3UGuwGG9GyULmC4JdF5 SbVKroTW4ABWDlOGCrbLFqYMJzHPPkZuL9ANCdYDpaXF8RhEJiLEafSFFhFLStSxUmHBMeNQ2UZRMqZ4 05hzCoWp1KAa0YKtHqCP1hhj5FREOwVKPgNffCOtc6 JPxwBV1ZtBGwzAYaSzCbJYEYIxAqH7srg3VdGHqkVHAJKMthBA1Zb9LpjYEkYLc+Ub7ZGT9jy1QvOWmt PzTxFV1gpb4VUDwHKcUjI7OezNalCPTyyvE2fIBpZWC9KPxvKLjbBZONsSHipgZkDPiQV8elQLQxJZ2t RN7sEVWjBDPkFqJjNZAGIF8YJGCvKNSzuTHcZCIyUG QNCC7LQPbaTEL9DFOffrVqoVIhWKnyNX6QRXWuazBhYUHfEDYATGa+If5FXV3vf4SyTAxxSGYmRX5vnl 2ILCbCJrQhI0E1gWVvZ2X1ALpxJu4YKCFtMOZhFGRyTRGATWguZR6DFY1ukzK8AP9VfVJoGTBqFZMlhR FwGHe1C91ygJDnDAloJW0BINO+Dulce+Dk4DMFVcKKOp BJCdKdWnQUPQKrRqL8WhY5LGb9WyW0TiTT73sMvznbHwMQdjDY7NZH2kQYQaEOBIOL0VeZFnkB7mtgFj PyLlZYNJWpMdV93rtMKrXNTfGLB4QHJwKd3LLATjO5QnotUteWbriwMaNHZaKAFXKG9UICjnduRmvGUk rZxsCN47aXgyYA6OOp5TOkVnBV8uot6MaVIoWj8WON ShVT8SJZZxZTDvILQmUXX9HXAjHlQeUYdlZLJhAFLnQKH0JVWdVIDcRR6VUgXqKDBoYMufAlEfWIVaWD Wrry4JUNJmRBIdQMB8LNRvOOSqKMPhFBetLASpMUGjQZH0HPBdYNGgPF3VJqXuYBTmDGUzJDcvOPDqZK Aidt2YBULnLUAhGOCbFGNcYFGiNLTzLBwnITEbFRF3 GJZmSPRqBFQtFJ3UWyDqZONzIHV5QbCqHTVhWDAljd6DYYIeARJcWyEmOOXbWPThELIjSJhhFZWzJCS4 GSCxPEWpLXFxLN7YHwKzPFMnXHyxJEHbMVOtYELgxl0HTEMqFPIbINo6MWLcTGCvBBOsQJhrOXDqUBI1 OJEfXVGnJKSjTN4ADoSxKVNhLNweIIWsGJVkUVYjtg 5JOQMkYBCaFCm9QPRrVLCgDXHiLYfxLCPdPDWgPJo4JHFzSBHkWZ6NFeHgWLFwIBPdBoAoLGHeZCBnhb 0HDSHoJULhYNDwUBZfWLVjKDAfDEm4kjZocQIvTXd4BG0EA8XkjgEnBFjXAp2Ow939PAJ5BAPrVo4NC4 mkZn5sQRJoEGCICd3BOMs5HRBvHPKpFHN0OnhfAPY7 SYe7K4KpQGKkRaWbYNY0VHO+NWbsOPEwWwY7BElhSFPnNChtBHqtIpH3TKFtOwQuLZznYC4lRLSOXl5+ KLwhsKByiQygYKWPYbArCfY1GOmeVZDIFm0A ID Date Data Source [id number] 02/13/2020 01:09:[address] [facility] Name Value Range Interpretation Code Description Data Sudha rce(s) Supporting Document(s) Consultation [facility] BKBXNi8uXyERBeXk14/OBXbnVRFbb3BuFLcjDXx4DEboOOVfL4UcOXD0wE0uTRI7TJhOIqGmIdGuLSDf lbm [file] G4KKKwCnFbJYP9BZCfV0HaDxG6QHA+QX7vZQp+Ir3Kz5UlblY6exRyTSr7ALdvUOgoINOVMu0Z ID Date Data Source [id number] 02/12/2020 02:48:[address] [facility] Name Value Range Interpretation Code Description Data Sudha rce(s) Supporting Document(s) Consultation [facility] MLEQUf1dFqHNPkBv39/RSPvbLSPvp9IfINpkCVg6ZMxpJBBpV1QzGYC6lF8mSCD3HTkKJuCsSiCqZHLk lbm [file] DQo+Cc5Jw8IazzB4xvDtRFgsLBC6QF4XWFAQV8ERUj== ID Date Data Source [id number] 02/12/2020 01:13:[address] [facility] Name Value Range Interpretation Code Description Data Sudha rce(s) Supporting Document(s) ED Provider Note [facility] DZCHIl1tLqKCXgMy74/YCEkbLMFom2VlNLnjRUc7NRwjEYWjA9MsOWP7gV3uBFD3EKvVAsXqOuOmCDWf lbm YfEagETfQbHIKvOvmKPbEgQVonJaetxBXuMR0HvUI6SLNiR25gIHLzKPTyC2FlWHA4Ilh+On1RNITfuQ EcOR3MUjbW8Sqkx7f79toH8v/0hP2sxFADOGIuYRKt2lM3DFud8tVggxaGhYXDy4vRgWY41I7/6pX4nC cqcoS2c2QIkA0ZBx9PChxuJh98zC5Vo0SG4k/3XwMr 6TqRfpbKm6abimlfU4/JXpVG5SSZ3BUuymieU/DziD1/rYsGwbE3pbUEUt6XcvZrfDeQFrtmS4o0+ZFd xlAuNS4MavsiPvz6MImPiT/o9z/8wEb/M1iy2mWtLsfoBaPkfptU72HrjZT6Uw4kO1lZu+k/e0zxKnwP yfQF44Km9LKY4AvuCU8Q3Zs6cOQU8lJPuF0xv4MZ9X QvfBzSsyD9bJLfZbfIW8umVh5EBuJc1FWvmxUYbThx0cDtdl/Ashley+KNQI7aHrpxSdCiTBwO/fP1dAm5E [file] ID Date Data Source [id number] 02/11/2020 05:33:[address] [facility] Name Value Range Interpretation Code Description Data Sudha rce(s) Supporting Document(s) ED Provider Note [facility] UBNZIe4aVvLBEqPv36/CUCsqCRDvo1EtEBrqSFu7YFerMTKrZ9QkWZV0vI2mHZG0KHnJQeBzJeJqGXM1 lbm [file] bKNaVy7GYJGyURnYQvDoBO5DLYu= ID Date Data Source [id number] 02/11/2020 12:21:[address] [facility] Name Value Range Interpretation Code Description Data Sudha e(s) Supporting Document(s) History and Physical [facility] XTWTZu1gQnVFFmXt32/FPRsmLTUij4XpQTnuDSa7IBkrGJVfO9PsZUH1xN2xGIB3WRgUKyStXlFtWMU3 lbm [file] MKM83jD+kav/wGNf3mTxThV8/QGcLh7be69q96B2JER5U4qMmWTzMu4XE0+rBy5pu9aZVwJt9U9/nursing home/ [file] qAU3SDMEUyYNYxoxizCVrCDSYMgzXCJHcyJXP4NK7N76Cpw8P8K++0qdEHmWWYriDt89Dbc+SJKI/safety deposit clerk [file] ICAgICAgICAgICAgICAgICAgICAgICAgICAgICAgIC AgICAgICAgICAgICAgICAgICAgICAgICAgICAgICAgICAgICAgICAgICAgICAgICAgICAgICAgICAgIC AgICANCiAgICAgICAgICAgICAgICAgICAgICAgICAgICAgICAgICAgICAgICAgICAgICAgICAgICAgIC AgICAgICAgICAgICAgICAgICAgICAgICAgICAgICAg ICAgICAgICAgICAgICANCiAgICAgICAgICAgICAgICAgICAgICAgICAgICAgICAgICAgICAgICAgICAg ICAgICAgICAgICAgICAgICAgICAgICAgICAgICAgICAgICAgICAgICAgICAgICAgICAgICAgICANCiAg ICAgICAgICAgICAgICAgICAgICAgICAgICAgICAgIC AgICAgICAgICAgICAgICAgICAgICAgICAgICAgICAgICAgICAgICAgICAgICAgICAgICAgICAgICAgIC AgICAgICANCiAgICAgICAgICAgICAgICAgICAgICAgICAgICAgICAgICAgICAgICAgICAgICAgICAgIC AgICAgICAgICAgICAgICAgICAgICAgICAgICAgICAg ICAgICAgICAgICAgICAgICANCiAgICAgICAgICAgICAgICAgICAgICAgICAgICAgICAgICAgICAgICAg ICAgICAgICAgICAgICAgICAgICAgICAgICAgICAgICAgICAgICAgICAgICAgICAgICAgICAgICAgICAN CiAgICAgICAgICAgICAgICAgICAgICAgICAgICAgIC AgICAgICAgICAgICAgICAgICAgICAgICAgICAgICAgICAgICAgICAgICAgICAgICAgICAgICAgICAgIC AgICAgICAgICANCiAgICAgICAgICAgICAgICAgICAgICAgICAgICAgICAgICAgICAgICAgICAgICAgIC AgICAgICAgICAgICAgICAgICAgICAgICAgICAgICAg ICAgICAgICAgICAgICAgICAgICANCiAgICAgICAgICAgICAgICAgICAgICAgICAgICAgICAgICAgICAg ICAgICAgICAgICAgICAgICAgICAgICAgICAgICAgICAgICAgICAgICAgICAgICAgICAgICAgICAgICAg ICANCiAgICAgICAgICAgICAgICAgICAgICAgICAgIC AgICAgICAgICAgICAgICAgICAgICAgICAgICAgICAgICAgICAgICAgICAgICAgICAgICAgICAgICAgIC AgICAgICAgICAgICANCjw/fTSxX8urnSXoyoI7E7mlNo8CUx9HHJ4sg0WrOFJsWUcrodVkTmuDDnUqTC TrDjjOKkr6DYkdAR3GxQWgA9OyR8YlXFpePP4UOLLp IVOlxHCjDFWpNJJtWpA7JMCgQPofBW1JdGIcNDpnJOKiNFYhIeJpSIDsCZCuMANbEFWwCBWGUMEnPSIm UpSwFStdIL8Od7BejPE8NUz+By5OWC7rn2BxXSjbDDGtMM6mpk9FURoSQyPkE6UzjnR5WBJqNEWaYs1N ZIOhAUOaqLJ9OVGrEIKVXqIrN3SnjN33UHPUJn4+DQ hsvuPhPvaCTqKkJRNss6SlUTg6LW7PXRPgMOo8qYBcSCFBLJI7ORfbKdPbPtDjAEImGR0ENBF7SYdxVo jqRsSzDQItFNf0TTPSIEpFCcByA4Boa4KjFiA9NVWuQpNzFKwmEXTvBhK4AB17tYzaUC4FLWGuWRUtLS 85YEL8YJHyFs8LHx3RFzQdWW7gub9ABTNsQNAeRiaC Vgh3CNigYI2FuVGeA0QnnZIxg3tGZyZyC9WGBSW6EBAxKh2YTERsDeGzCDVvHZkbBM3lQRAjHZOTvYoo zxY0CP3MMS5pfrZjKV1VXeVgSf4jPn2PFwLsO7PdZ6IaCRYvRUWJRNevXI0KSMglSR4aQN7Ge1BImPYx dQ4zvr8LAZXmDOZhPfcgzl6XQbdzZ9E8vYbcRMOnPs rhBIOVGBlxLD8EBRZdNUC9FWEqIZUhKZYRQfElL59rCS3YP5Udi14vDfR6PFWzTxPiILtgEW89iOhqih RzjAHkzIzoJW7QAk1+QFfzbmTkUrjKJbosKDCJFjIiULDJMkIlLKJbGBPvRIHdMdE9YvGbSd4PNOQpGE JzNKYsMdDaSDGjJGMcYDmmKBUiZFP9FZllFYMfZNMo VJ6LXbWxGNMyIrxiVGChARAvXATsdt8SGXItKAZhPDD3MnEnLDPjWLXuRYkvZYKqXDE9YSO2FNSfYFSs CZ8JXkCoWQAyRIRsJDmrDBGjWUXjmv7VBFAvFJMzJmNiGbJsDPRcZOBqULcoWEThGVN5MAJ3FXKiFSFq YY9WBeNmHTGbIVG4WVspFCNcOSXizx2LRCAlGBZkXF pnQXNiWJKvFTJtYIkbDQXiWKW0ZvR8AVNrCRSyEY2CZoFtOUEqGMN5LcEiWJLfIBHngd9KECLrUNEzXt EcPWDgCHHvXNOxDUjxVVQoABN1QyIcFAMaASEkJU1JHuInYPEuNJkqUcXmJRJaCVJtjc5ZGRFaEXEaJB I2ZBWpNQMrJFHxWUclCAHnMMX9PJClDIYvXYVjXU2P OgUaPCUnEPh4YZOeHWIcZJIzfs5ASYYpOJBlMDliRuSjXLHzJDYzCNswPKAlJKG4YZXfFSLqKHWzXY1J ZxPfBMWtBqO8HOxeZPYjHKIrgi6LJJMhVEWsULW0TQJpDEVnRTHcFHoyPRBvKDQiEkD4MVIvDCVhCK1Q UaHhLDYkXmOgJQdzSMJpIASelc1EHDSmFBJeOkKoDk SnYLVvXSWrMOhbTCIhGMQrKSf8MPByKBHmPV8GXwRzJQJhGsU6RZnjFFNbKDNiql4UOARiTYJmPbp5Gc UyXQEuQWXtPSvcTERaMTQkEBScQYYmYYImWU0SMkFuQNCpSjPzNenzCXJrZKJpmz7MNKNqSXQzMZR1Me HePVAcDGMxZKsfZCNiBPO6ELD0FQRqHKEkQL8HUeMk SYXeRxHcEZVvEFQiTIYnut4VCJYzVDQwElT2NCLwFXPjCKOeKCyyVEBjBIX5WAm6ZFNpVUIgCV6IGwTn FXNaEbizZoHfRFVeOANoli1UHZOhKIXdYmX0WVZkYRMaPHTpEXcgYDTxUEG5CPL5WMIhHBCrEJ7XKtAr VIJwXzc7ZpjtSOYdWXNxxy7DKOZsKRJyJWY0ORTbBZ JcULOtXJucCTNkJST1Yme2TCDzMAMtWO0TAcJgDWitCNURRvu8IBujQ8p3JBA6Nr4RF0Dla6CtSREaCW DXGCzjBR0vyjKmGJWfYi8TH2rWFfntQBVyFZezVZEoWPGiRpBfVVA7LAg4GyHxRxAoAjqsBl6kHUDcQP GrWGO5YBL3RvNvJwHkUKo3JxO9LoShCEHgIUFpYyWp LR2MNb0ZKkX6OHS8oATqIs2CZmy7NbvYRpMdPE6LQMa= ID Date Data Source [id number] 02/11/2020 10:14:[address] [facility] Name Value Range Interpretation Code Description Data Sudha rce(s) Supporting Document(s) [facility] CBSUVd4sPaBXLbClz8OmAqDxAZGqWN3yisn2G5B3gUKbB9FgcBDfn7igY7GiI8FbNPGuZXHLIB1FbASi jb2 [file] 844r2lwiItEa7sq3/64eP7r/7xx69+9fEPX//78SdaLd8usC9/Jfe7L7/96BWD22174hmkt//8q08//v T954/blH68oxhwp/rm0/f/xSXuJ/h9iS+/+9Wvv/n8v3/+4b/4T6tBf/fjV5+//4evf/a79l38g/F98/ H5y7/7+m5O2w551//w1edvP+52P33/+ZfZwdcJH9/9 1QiVW8cXegh5X/0LmgaphY7Eb0+0Ehz70090jr3Vj/uqt3guwiu08x6//MOnHz7+0zgnym5du3Qc/VBZ Y/rTH//193/+w+/+5eP/+F8fv/p0l5gHyc/86Zu/+vjVa+E18mO5D2/+5uOf/lvzf/rLjz/98cP/WuKv n9qBI1992Md43Gt/pKnZ9RLzM/qHP/z1v/Qk5q9L2S rBf/tH5C5F9q8pd2/+X6BLcX/Q+O/Zjwhvc8JAXNr++HCFo8br9GftK64OIB0XObiitdD6HK+X2aqPc/ /h+9/96+/+/Oclsi8+Ka5v7uSv7g2b25ixgu80d447OM9660dw6oiF4/QO6Y2r25/5coJiaFwAcVf2Dt U92G9+98f/+O8ff/7tf/zurfXXM/YjM+7cf/oDb9Pi Hqzp+HnrG/z19x+//+N//O7P/89v/+2/iO5P8L527UyX9R/e+sb+/zgqDl4bv4f0/vs//yBekh14hU7y Ppt4sL//8a///sd/5k9CF8Q/8lyetl1qUa9zCHih7i/sZ51/bWDPk2szN2rm120a4Y2/6z8mbah53n/8 3b//15Dn9Fc+/eJ/++umX4lhJK4H3HBN+V9//qe//N m/780451/94bf/1vtW8a8/8rf/459/+++//+2uh9yRlzGfb/8Z+Ejp+z/71M3zpKMoh/1hD+ibP/3zF6 pcy/eLcZYkuPEff/fP/9cff//Fyb154wgxbynw15+/+uFn/14FQPLf//8dh9s0F4/8+ngcbdusV9128B W1H//qtXH/8AVX+v28/P//y/95LX4TX/Cvf/t//u6j vhvcRq08x+6qG5mqUu8+vzaF5h+ff/nmY0f8vEdtCyb578/5+hjXbXogwzmw5mgFR57a2+u//H4b6g6w Brv1/w/YXFqpXbNtWVY0fdPdhFxzkwPlRvbRMZhcFTHzAvl1XP7AiCAbCXAwD0X1QGDyks2mZWZwWIQq lSKtJzRjLEYAPD1AfFFgNC0MXBa3VAGaCQKcDyKcZL RnfhI1YHYwZKTaCFKuX2FwfvLziJXyFKEqVb1+VH1bi6MuZhMnEWXwAoj0YM0DtXMiDL9NbXTgsG4scz XpK265slYoWKDqKpjxf4CvEPmnEBIPHL3CABP7COB8UTBjIr6+XP4eq3CdJsQjHBZvEul6AU8GqKMts2 OqJD6SG1XaAPEaWBCMFQW8p3CuTMByeixpmovwD1Dv PUR0cQ4kCFW8NHKaLWwzIVVdVGpsQLWlQSUjZCxyMWJiGZPhURHxGMRaRKn5aJRmGA4MJ3NjIHBnCSOV JFCelbMbCn8nVJiBBUdLB1UvSZFLPIGXROjAYQY4ZEBvIYWvRM6LsHVuOZX9YUuDAKDKQJzEROrmLnJz k4O3BJCsU7BwZOJybnWnCKGYCUhlUqpsHR6ezXekyz wyQ2ZtsOYyYINVDTMzDBIkOZTxBOEbF2Ahh6P4E0YiDZnMSIWLYYnCVJpvJmQ5k17ndcTKOLLdEFYeHJ 4+GH6bp8EpRw9KIYXnDY0ehdp0TS7DnCHvAM5YJHxtvpLjP3gjlzCbPgYqKVUJUA5dT4DfiN58HTB+Pm EaJZ3pcdk9xvAlKvLnFGFyHYLbVCXmBBpyBOCfFZEm ZGGnMPV2RND1SFSvBjAzSAAxSemkAKJbCVGeFHIjjpVBWZSpOXO6GVt3LIGuHXLzOCFlDJegJPUsAYV6 PRR9QIJcBKWrGX3yVgClBKBmWSQgQVKuQdV5UkDvVzXOZLMpDSYtGGLlKdHcRDEzHPNcGQzyXSNbEIJa CJl2DDXbUEFbQN2eRqOhILPsAVMtCSBhRSGlQLTeeq VBKJSiMNVaPTS6ESFtMHBoCUUpOWybXOVjIJMcAQL2OMEcETYtKS6xPjJxKORqQCR7QcGsLCNrKCHnko EFRTXwSIKxENA4BDQbYJHvNUNaMEdjTAJmQNXgHxR3RWUbAMFoMW9hGmEuLTBfHXJ1HSUyMBIlNJDudc XSOPScPLLeAGv5FqLmTVUuHTEmUAseKVOaQPHmKBpq KHTqDIDfQS7kBaTpZVLzJCHbSFXfOEAeSBRftzNAXIIoKLEzABN9ToXqUOVlYBXaEJwgFREnQCByBCK5 TGMfLHJgEF1rRoKiBDJyAxj4MqrnYMJjWOVdmaNVASXpLQWdAIBnHPLxLPPaPCRtVQouBELvTTWbHaL8 TYOeLXXcLR1qTuKeDBIcTMI2FJDnQQTsCGOzybZXLV GuNYOkHBHuZRA8JJSwUNIvISw8gfTikDZdXmi5Fw8XvJcgTHQ4Ob8RioEoLVLyIIPZPu9Qr549WPHsFS BSCgo+HmbmhIOwmAehLLFKQttaLfMUDZFSK2R= ID Date Data Source [id number] 02/11/2020 10:46:29 AM [facility] Service nt XXX-Imp : NoneMicroorganism XXX Cult : 2019 nCoV Real-Time RT-PCR: NOT DETECTEDTest performed using the [employer]renda COVID-19 MDx Assay. This test is only for use under the Food and Drug Administration's Emergency Use Authorization.Additional information is available on the following FDA websites for health care providers and patients. https://www.fda.gov/media/860325/download , https://www .fda.gov/media/034283/download Name Value Range Interpretation Code Description Data Sudha rce(s) Supporting Document(s) ID Date Data Source [id number] 02/11/2020 03:26:00 AM [facility] Service Cmnt XXX-Imp : NoneMicroorganism XXX Cult : 2019 nCoV Real-Time RT-PCR: NOT DETECTEDTest performed using the Rheonix COVID-19 MDx Assay. This test is only for use under the Food and Drug Administration's Emergency Use Authorization.Additional information is available on the following FDA websites for health care providers and patients.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 RU9G ID Date Data Source [id number] 02/07/2020 02:34:00 PM EDT [address] [place] [address] Patient Name: Amy Carranza Exam Date: 02/07/20 : 1995 CC: EKG/ECG in ED Ordering Doctor: Candice Arrieta MD Attending Doctor: Candice Jiang MD CC: EKG/ECG in ED APPROVED REPORT ECG MEASUREMENT Heart Rate 80 AXES PA 155 P 45 QRSd 100 QRS 62 QT 355 T 47 QTc 391 INTERPRETATION SINUS RHYTHM WITH OCCASIONAL VENTRICULAR PREMATURE COMPLEXES BORDERLINE ECG <Conclusion> SINUS RHYTHM WITH OCCASIONAL VENTRICULAR PREMATURE COMPLEXES BORDERLINE ECG End of diagnostic report for accession: [id number] Interpreted: Candice Arrieta MD 02/07/20 143 Transcribed: Signed: Candice Arrieta MD 02/07/20 143 Interpreted by: Candice ArrietaTranscribed by: Candice Arrieta Name Value Range Interpretation Code Description Data Sudha rce(s) Supporting Document(s) ID Date Data Source [id number] 02/05/2020 09:39:[address] [facility] Name Value Range Interpretation Code Description Data Sudha rce(s) Supporting Document(s) ED Provider Note [facility] [id number]/JEAofMBKgh4IuQSoiYXn4TBmhPPTqP3YjFQG2vM5zSSI1URzIUfOvRhYzIZGi lbm [file] [id number] ID Date Data Source [id number] 02/04/2020 02:30:00 AM EDT [facility] Name Value Range Interpretation Code Description Data Sudha rce(s) Supporting Document(s) Reported Physicians See Note Reported Physicians [facility]) Note: Reported Physicians:Ordering: Harriet Duranending: Yaakov Almanzaritting: Carlos Almanzar To: FABIAN BOWEN ID Date Data Source [id number] 02/04/2020 02:30:00 AM EDT [facility] Name Value Range Interpretation Code Description Data Sudha rce(s) Supporting Document(s) COVID 19 (RHEONIX) NOT-DETECTED COVID 19 (RHEONIX) [facility]) Note: The [facility] COVID-19 MDx Assay is an endpoint RT-PCR assay intended for the qualitative detection of nucleic acid from SARS-CoV-2 in nasopharyngeal swabs. COVID testing using the [facility] analyzer was developed for the purpose of [...] 19 (R) COVID 19 (RHEONIX) 550.2865 (A) ID Date Data Source [id number] 02/04/2020 02:30:00 AM EDT [facility] Name Value Range Interpretation Code Description Data Sudha rce(s) Supporting Document(s) SARS-CoV-2 (COVID-19) N gene [Presence] in Nasopharynx by EDUARDO with probe detection [facility] This lab was ordered by [facility] and reported by [facility]. ID Date Data Source [id number] 02/04/2020 08:39:00 PM EDT [facility] COVID Reason [place] Admission Priority Name Value Range Interpretation Code Description Data Sudha rce(s) Supporting Document(s) COVID 19 (RHEONIX) NOT-DETECTED NOTDETECTED [facility] The [facility] COVID-19 MDx Assay is an en dpoint RT-PCR assay intended for the qualitative detection of nucleic acid from SARS-CoV-2 in nasopharyngeal swabs. COVID testing using the [employer] analyzer was developed for the purpose of [...] healthcare providers in consultation with public health authorities. ID Date Data Source [id number] 02/03/2020 09:49:00 [place] [address] HEALTH INFORMATION MANAGEMENT Consultation : [id number] Signed Patient: Amy Carranza Acct:[id number] Unit: [id number] : 1995 Loc: ED Room/Bed: Age/Sex: 25 / F ADM Date: 02/03/20 cc: Huber Hamilton Jr, MD PCM Consult Date of Consult: 02/03/20 Reason for Consult: Inpatient behavioral health H P /medical clearance Attending requesting consult: colon Hospitalist attending in charge: brayden Bustos History of Present Illness: 25-year-old female with past medical history anxiety/depression here for psych eval. Please refer to ED provider notes for full details of HPI. Hospital Service called for consult for transition to inpatient Behavioral Health for further management. Allergies Penicillins Allergy (Verified 02/03/20 18:55) Home Medications Medication Instructions Recorded escitalopram oxalate [Lexapro] 10 mg PO DIRECTED 08/15/19 Current Visit Medications: Generic Name Dose Route Start Last Admin Trade Name Freq PRN Reason Stop Dose Admin Nicotine Polacrilex 4 mg 02/03/20 21:00 Nicotine Lozenge BUCCAL Q4HPRN PRN NICOTINE WITHDRAWAL Discontinued Medications Generic Name Dose Route Start Last Admin Trade Name Freq PRN Reason Stop Dose Admin Sodium Chloride 1 each 02/04/20 00:00 Saline Lock Flush Protocol IV FLUSH QSHIFT LIANA History of Smoking/Tobacco Use: Unknown if Ever Smoked Alcohol use: Reports None Drug use: Reports None Occupation: denies Lives with: Reports Family PMH/PSH PMH/PSH Medical History No pertinent past medical history Surgical History No pertinent past surgical history (Surgical) Family History Other Patient denies significant medical history Subjective-consult Review of Systems: All other review of systems were negative except for those mentioned in above HPI. Objective Vitals and I O: I O (Last 24 Hours) 02/01/20 02/02/20 02/03/20 23:59 23:59 23:59 Other: Weight 100 kg Vital Signs (Last 8 Hours) Temp Pulse Resp BP Pulse Ox 02/03/20 18:55 98.0 F 102 H 16 135/78 96 General: Alert, Cooperative and Oriented x3 HEENT: Atraumatic, EOMI, Normocephalic and ROSA Neck: Supple; negative Stiffness Lungs: Clear to auscultation; negative Crackles, Rhonchi and Wheezing Cardiovascular: Capillary refill<2 second, Lower extremity pulse 2+, Normal Rate, Normal S1, Normal S2 and Regular rhythm; negative Murmurs Abdomen: Normal Active Bowel Sound and Soft; negative Rigid, Tenderness and Guarding Extremities: negative Edema and Tenderness Extremities: negative Edema and Tenderness Skin: record producer reviewed and agreed with; negative Lesions and Ulcers Neurological: Awake/Oriented, Cranial nerves 3-12 NL and Strength at 5/5 X4 ext; negative Drowsy and Lethargic Psych/Mental Status: Alert, Oriented x 3 and Proper Affect Active Medications: Active Medications Nicotine Polacrilex (Nicotine Lozenge) 4 mg BUCCAL Q4HPRN PRN PRN Reason: NICOTINE WITHDRAWAL Result Diagrams: 02/03/20 20:17 02/03/20 20:17 Lab Results: Laboratory (Last 12 hours Results) 02/03/20 02/03/20 02/03/20 20:17 20:17 20:17 WBC 14.65 H RBC 4.60 Hgb 13.8 Hct 41.3 MCV 89.8 MCH 30.0 MCHC 33.4 RDW 12.3 Plt Count 359 MPV 9.9 Gran % (Auto) 69.4 Lymph % (Auto) 24.4 Reynolds % (Auto) 5.3 Eos % (Auto) 0.1 Baso % (Auto) 0.3 Nucleat RBC Rel Count Not Reportable Gran # 10.16 H Lymph # (Auto) 3.6 Reynolds # (Auto) 0.77 Eos # (Auto) 0.02 Baso # (Auto) 0.05 Immature Gran # (Auto) 0.1 Absolute Nucleated RBC Not Reportable Immature Gran % 0.5 Sodium 141 Potassium 4.4 Chloride 105 Carbon Dioxide 28 Anion Gap 12 BUN 11 Creatinine 0.7 Estimated GFR (MDRD) > 90.0 BUN/Creatinine Ratio 15 Glucose 95 Calcium 9.6 Total Bilirubin 0.6 AST 47 H ALT 80 H Alkaline Phosphatase 108 Total Protein 6.7 Albumin 4.7 Globulin 2.0 Albumin/Globulin Ratio 2.4 Beta HCG Screen NEGATIVE Urine Color Urine Appearance Urine pH Specific [place] Urine Protein Urine Glucose (UA) Urine Ketones Urine Occult Blood Urine Nitrate Urine Bilirubin Urine Urobilinogen Ur Leukocyte Esterase Urine WBC (Auto) Urine RBC (Auto) Urine Bacteria (Auto) Urine WBC Clumps Ur Epithelial Cells Calcium Oxalate Crystal Urine Mucus Salicylates < 3.0 Urine Opiates Screen Ur Heroin Screen Acetaminophen < 2.0 L Ur Barbiturates Screen Ur Phencyclidine Scrn Ur Amphetamines Screen U Benzodiazepines Scrn Urine Cocaine Screen U Marijuana (THC) Screen Plasma/Serum Alcohol < 0.03 Type SERUM 02/03/20 02/03/20 19:09 19:09 WBC RBC Hgb Hct MCV MCH MCHC RDW Plt Count MPV Gran % (Auto) Lymph % (Auto) Reynolds % (Auto) Eos % (Auto) Baso % (Auto) Nucleat RBC Rel Count Gran # Lymph # (Auto) Reynolds # (Auto) Eos # (Auto) Baso # (Auto) Immature Gran # (Auto) Absolute Nucleated RBC Immature Gran % Sodium Potassium Chloride Carbon Dioxide Anion Gap BUN Creatinine Estimated GFR (MDRD) BUN/Creatinine Ratio Glucose Calcium Total Bilirubin AST ALT Alkaline Phosphatase Total Protein Albumin Globulin Albumin/Globulin Ratio Beta HCG Screen Urine Color YELLOW Urine Appearance CLOUDY H Urine pH 5.0 Specific [place] 1.015 Urine Protein 100 H Urine Glucose (UA) NEGATIVE Urine Ketones NEGATIVE Urine Occult Blood LARGE H Urine Nitrate NEGATIVE Urine Bilirubin NEGATIVE Urine Urobilinogen 0.2-1.0 Ur Leukocyte Esterase MODERATE H Urine WBC (Auto) 25-49 H Urine RBC (Auto) 25-49 H Urine Bacteria (Auto) RARE Urine WBC Clumps FEW Ur Epithelial Cells MANY Calcium Oxalate Crystal MODERATE Urine Mucus MODERATE Salicylates Urine Opiates Screen NEG Ur Heroin Screen NEG Acetaminophen Ur Barbiturates Screen NEG Ur Phencyclidine Scrn NEG Ur Amphetamines Screen NEG U Benzodiazepines Scrn NEG Urine Cocaine Screen NEG U Marijuana (THC) Screen NEG Plasma/Serum Alcohol Type Consult Assessment/Plan (1) Suicidal ideation: Code(s): R45.851 - Suicidal ideations Status: Acute Present on Admission: Yes Plan: Plan as per psych. Neuro exam is benign including cranial nerves 2-12 grossly intact. No focal deficits. Cerebellar testing within normal limits. Patient deemed medically cleared to transfer for inpatient management of above problems. (2) UTI (urinary tract infection): Code(s): N39.0 - Urinary tract infection, site not specified Qualifiers: Urinary tract infection type: acute cystitis Hematuria presence: without hematuria Qualified Code(s): N30.00 - Acute cystitis without hematuria Status: Acute Present on Admission: Yes Plan: UA suggestive of UTI. Patient asymptomatic. Mild elevation of white count with no significant left shift on differential recommend Empirically start patient on Macrobid 100 mg p.o. b.i.d. x5 days. Urine culture recommended and tailor antibiotics accordingly Code Status Resuscitation Status (Nurse/Provider Doc-Not Order): Full Code MIPS MIPS REVIEWED Did you review MIPS this visit?: Yes Tobacco Use:Preventative Care/Screening Performance Met:: 1036F: Pt screened for tobacco use, identified as non-user of tobacco Current Medications in Medical Record Performance Met:: G8427: Current Medications Documented Care Plan Performance Met:: 1123F:Adv Care plan discussed and surrogate decision maker documented. Hospitalist Charges Worksheet Subject to change for billing criteria Did you complete your Hospitalist charges for this visit?: Yes Inpt Consult [id number] Cons Level 4: Yes Signed By:Huber Hamilton Jr, MD <<Signature on File>> Signed Date/Time: 02/03/202151 Co-Signer: Co-Signed Date/Time: Initializing User: Huber Hamilton Jr, MD 0 02/03/202148 48 48 Name Value Range Interpretation Code Description Data Sudha rce(s) Supporting Document(s) ID Date Data Source [id number] 02/03/2020 08:25:00 PM [facility] Has [facility] Fasted For The Past 12 Hour s? N Has Patient Fasted For The Past 12 Hour s? N Has Patient Fasted For The Past 12 Hour s? N Has Patient Fasted For The Past 12 Hour s? N Name Value Range Interpretation Code Description Data Sudha rce(s) Supporting Document(s) WHITE BLOOD COUNT 14.65 10^3/uL 4.00-10.50 H [facility] RED BLOOD COUNT 4.60 10^6/uL 3.90-5.20 N [facility] th HEMOGLOBIN 13.8 G/DL 11.5-15.6 N [facility] HEMATOCRIT 41.3 % 35.0-46.0 N [facility] MCV 89.8 FL 80.0-100.0 N [facility] MCH 30.0 PG 27.0-34.0 N [facility] MCHC 33.4 G/DL 32-36 N [facility] RDW 12.3 % 11.5-14.5 [facility] PLATELET COUNT 359 10^3/uL 130-400 N [facility] MPV 9.9 FL 8.7-13.2 N [facility] GRAN % (AUTO) 69.4 % 42.0-75.0 N [facility] LYMPH % (AUTO) 24.4 % 20.0-51.0 [facility] MONO % (AUTO) 5.3 % 2.0-15.0 N [facility] EOS % (AUTO) 0.1 % 0.0-11.0 [facility] BASO % (AUTO) 0.3 % 0.0-2.0 N [facility] IG % (AUTO) 0.5 % 1.00-5.00 [facility] IG # (AUTO) 0.1 10^3/uL <0.5 [facility] GRAN # (AUTO) 10.16 10^3/uL 1.50-6.50 [facility] LYMPH # (AUTO) 3.6 k/uL 1.0-5.0 N [facility] MONO # (AUTO) 0.77 k/uL 0.20-1.50 N [facility] EOS # (AUTO) 0.02 10^3/uL 0.00-1.10 N [facility] BASO # (AUTO) 0.05 10^3/uL 0.00-0.20 N [facility] ID Date Data Source [id number] 02/03/2020 08:36:00 PM EDT [facility] Has Patient Fasted For The Past 12 Hour s? N Has Patient Fasted For The Past 12 Hour s? N Has Patient Fasted For The Past 12 Hour s? N Has Patient Fasted For The Past 12 Hour s? N Name Value Range Interpretation Code Description Data Sudha rce(s) Supporting Document(s) HCG QUALITATIVE SPECIMEN SERUM [facility] ID Date Data Source [id number] 02/03/2020 08:44:00 PM T [facility] Has Patient Fasted For The Past 12 Hour s? N Has Patient Fasted For The Past 12 Hour s? N Has Patient Fasted For The Past 12 Hour s? N Has Patient Fasted For The Past 12 Hour s? N Name Value Range Interpretation Code Description Data Sudha rce(s) Supporting Document(s) SODIUM 141 MEQ/L 135-145 N [facility] POTASSIUM 4.4 MEQ/L 3.5-5.3 N [facility] CHLORIDE 105 MEQ/L 94-110 N [facility] CARBON DIOXIDE 28 MEQ/L 22-33 N [facility] ANION GAP 12 5-16 N [facility] BLOOD UREA NITRO 11 MG/DL 7-25 N [facility] CREATININE 0.7 MG/DL 0.6-1.4 N [facility] GFR > 90.0 ML/MIN [facility] Stage G1 - Normal or high kidney functi on The GFR is an estimate of the Glomerular Filtration Rate. It is an aid to assess a patient's renal function. It is not a conclusive diagnosis of kidney disease. GFR normal is >=90 The MDRD GFR calculation is considered valid between the ages of 18 and 75 years only. BUN/CREAT RATIO 15 8-36 N [facility] GLUCOSE 95 MG/DL 70-100 N [facility] CA 9.6 MG/DL 8.7-10.5 N [facility] BILIRUBIN,TOTAL 0.6 MG/DL 0.1-1.3 N [facility] AST 47 U/L 5-40 H [facility] ALT 80 U/L 5-48 H [facility] ALKALINE PHOSPHATASE 108 U/L 40-140 [facility] alth TOTAL PROTEIN 6.7 G/DL 5.9-8.3 N [facility] ALBUMIN 4.7 G/DL 3.0-5.1 N [facility] GLOBULIN 2.0 G/DL 1.5-3.5 N [facility] ALB/GLOB RATIO 2.4 G/DL 1.0-3.0 N [facility] ID Date Data Source [id number] 02/03/2020 08:36:00 PM [facility] Has Patient Fasted For The Past 12 Hour s? N Has Patient Fasted For The Past 12 Hour s? N Has Patient Fasted For The Past 12 Hour s? N Has Patient Fasted For The Past 12 Hour s? N Name Value Range Interpretation Code Description Data Sudha rce(s) Supporting Document(s) HCG RESULT,S NEGATIVE [facility] Reference range is Negative "Extreme" early may have low levels of HCG present. If is suspected, repeat testing with a new specimen in 48-72 hours ID Date Data Source [id number] 02/03/2020 08:44:00 PM [facility] Has Patient Fasted For The Past 12 Hour s? N Has Patient Fasted For The Past 12 Hour s? N Has Patient Fasted For The Past 12 Hour s? N Has Patient Fasted For The Past 12 Hour s? N Name Value Range Interpretation Code Description Data Sudha rce(s) Supporting Document(s) SALICYLATE < 3.0 MG/DL 2.8-20.0 N [facility] ID Date Data Source [id number] 02/03/2020 08:44:00 PM [facility] Has Patient Fasted For The Past 12 Hour s? N Has Patient Fasted For The Past 12 Hour s? N Has Patient Fasted For The Past 12 Hour s? N Has Patient Fasted For The Past 12 Hour s? N Name Value Range Interpretation Code Description Data Sudha rce(s) Supporting Document(s) ACETAMINOPHEN < 2.0 UG/ML 10-30 L [facility] High levels of N-acetylcysteine (used t o treat Acetaminophen overdose) may cause interference and cause a negative bias in the Acetaminophen result. ID Date Data Source [id number] 02/03/2020 08:44:00 PM EDT [facility] Has Patient Fasted For The Past 12 Hour s? N Has Patient Fasted For The Past 12 Hour s? N Has Patient Fasted For The Past 12 Hour s? N Has Patient Fasted For The Past 12 Hour s? N Name Value Range Interpretation Code Description Data Sudha rce(s) Supporting Document(s) BLOOD ALCOHOL < 0.03 % <0.03 [facility] ID Date Data Source [id number] 02/03/2020 08:02:00 PM EDT [facility] Run: 02/05/20 0724 INTERFACED REPORT Name: Amy Carranza Age/Sex: 25/F Location: [facility] Acct: [id number] Unit: [id number] Status: ADM IN Room/Bed: 912-B Re02/03/20 Disch: Att Dr: Landon Almanzar MD Specimen #: [id number] Ordered : 02/03/20 Collected : 02/03/20 By: VALERIE Received: 02/03/20 By: DONNIE Source: URINE CC Specimen Description: Procedure Result - COLONY COUNT Final COLONY COUNT LESS THAN 1,000 CFU/ML URINE CULTURE Final NO GROWTH NO GROWTH <18 HOURS NO SIGNIFICANT GROWTH 42 HOURS URINE CULTURE Preliminary (Corrected) NO GROWTH NO GROWTH <18 HOURS END OF REPORT Name Value Range Interpretation Code Description Data Sudha rce(s) Supporting Document(s) OPIATE SCREEN NEG NEGATIVE [facility] Minimum Detectable Limit is 300 ng/mL. BARBITURATE SCREEN NEG NEGATIVE [facility] Minimum Detectable Limit is 300 ng/mL. PHENCYCLIDINE SCREEN NEG NEGATIVE [facility] Minimum Detectable Limit is 25 ng/mL. AMPHETAMINE SCREEN NEG NEGATIVE [facility] Minimum Detectable Limit is 1000 mg/mL. BENZODIAZEPINE SCREEN NEG NEGATIVE [facility] Mininum Detectable Limit is 300 ng/mL. COCAINE SCREEN NEG NEGATIVE [facility] Minimum Detectable Limit is 300 ng/mL. CANNABINOID SCREEN NEG NEGATIVE [facility] Minimum Detectable limit is 50 ng/dL. HEROIN SCREEN NEG NEGATIVE [facility] Minimum Detectable limit is 10 ng/dL. A ll POSITIVE or BORDER results are unconfirmed. Please contact the laboratory if a reference testing confirmation is needed. ID Date Data Source [id number] 02/03/2020 08:24:00 PM EDT [facility] Run: 02/05/20 0724 INTERFACED REPORT Name: Amy Carranza Age/Sex: 25/F Location: [facility] Acct: [id number] Unit: [id number] Status: ADM IN Room/Bed: 912-B Re02/03/20 Disch: Att Dr: Landon Almanzar MD Specimen #: [id number] Ordered : 02/03/20 Collected : 02/03/20 By: VALERIE Received: 02/03/20 By: DONNIE Source: URINE CC Specimen Description: Procedure Result - COLONY COUNT Final COLONY COUNT LESS THAN 1,000 CFU/ML URINE CULTURE Final NO GROWTH NO GROWTH <18 HOURS NO SIGNIFICANT GROWTH 42 HOURS URINE CULTURE Preliminary (Corrected) NO GROWTH NO GROWTH <18 HOURS END OF REPORT Name Value Range Interpretation Code Description Data Sudha rce(s) Supporting Document(s) COLOR,UR YELLOW YELLOW [facility] APPEARANCE,UR CLOUDY CLEAR A [facility] PH,UR 5.0 5.0-8.0 [facility] SPECIFIC GRAVITY,UR 1.015 1.002-1.035 N [facility] PROTEIN,UR 100 MG/DL NEGATIVE A [facility] GLUCOSE, UR NEGATIVE MG/DL NEGATIVE [facility] KETONES,UR NEGATIVE MG/DL NEGATIVE [facility] OCCULT BLOOD,UR LARGE NEGATIVE A [facility] NITRATE,UR NEGATIVE NEGATIVE [facility] LEUKOCYTE ESTERASE ,UR MODERATE NEGATIVE A [facility] BILIRUBIN,UR NEGATIVE NEGATIVE [facility] UROBILINOGEN,UR 0.2-1.0 EU MG/DL NEG-0-1.0 [facility] RBC,UR 25-49 PER HPF 0-2 A [facility] WBC,UR 25-49 PER HPF <5 A [facility] WBC CLUMPS,UR FEW PER HPF NONE SEEN [facility] URINE EPITH MANY PER/LPF FEW-MOD [facility] CA OXALATE CRY,UR MODERATE PER HPF NONE SEEN [facility] BACTERIA,UR RARE PER HPF NONE [facility] MUCUS,UR MODERATE PER HPF NONE SEEN [facility] ID Date Data Source [id number] 02/05/2020 07:24:00 AM EDT [facility] Run: 02/05/20 0724 INTERFACED REPORT Name: Amy Carranza Age/Sex: 25/F Location: [facility] Acct: [id number] Unit: [id number] Status: ADM IN Room/Bed: 912-B Re02/03/20 Disch: Att Dr: Landon Almanzar MD Specimen #: [id number] Ordered : 02/03/20 Collected : 02/03/20 By: VALERIE Received: 02/03/20 By: DONNIE Source: URINE CC Specimen Description: Procedure Result - COLONY COUNT Final COLONY COUNT LESS THAN 1,000 CFU/ML URINE CULTURE Final NO GROWTH NO GROWTH <18 HOURS NO SIGNIFICANT GROWTH 42 HOURS URINE CULTURE Preliminary (Corrected) NO GROWTH NO GROWTH <18 HOURS END OF REPORT Name Value Range Interpretation Code Description Data Sudha rce(s) Supporting Document(s) ID Date Data Source [id number] 02/03/2020 11:10:[address] [facility] Name Value Range Interpretation Code Description Data Sudha rce(s) Supporting Document(s) Progress Note [facility] VMQSDe5yYcUCCmAc74/XORlfJJCsv4DdRQdrGDp8LAtmHVSrU1TvRGR2wJ9bDXH3QMrLDdOvHfQpEXUj lbm [file] R3YExFBcsOp7+uzsujtMNDSJ8HgR99c9k/[facility]+VbNvQ6gLerB3mRJJwh3fScgyVQHx7MJeUi [file] TALIA+RWdnQEfaqMw4eBJdESTqTw2QPFOsATHmUYKlPXViPOBoRIRjUNZvTJRyFFXdXKThIWEcWGGhMBNc ICAgICAgICAgICAgICAgICAgICAgICAgICAgICAgIC TcEMDqFIFuFQIvXUBwKCGwWAQnLFTvJZLnICAjEV7GMFSiAQQdYEBeDZIaDWOsMMUrOOUvTJBdDJUnAC AgICAgICAgICAgICAgICAgICAgICAgICAgICAgICAgICAgICAgICAgICAgICAgICAgICAgICAgICAgIC FbVVPkDFPdJGVeQO9VIMEsOEMeWRVaTDHqRJWgSFHd ICAgICAgICAgICAgICAgICAgICAgICAgICAgICAgICAgICAgICAgICAgICAgICAgICAgICAgICAgICAg WXTpCTDgDXUzFAEwCHNrAHFfAGSkUJ5LHAObHEVqHDToOIGqXPCvPANvUBQiQUVpXXFoHJSwQCMrSNZj ICAgICAgICAgICAgICAgICAgICAgICAgICAgICAgIC FvEEFkBQHeBXZgKIUlYQLxMZQiPEElLFTtYDDnFZWdAR0JTRXfLNXkGTZjIRJrFWHdHDIfPTFwLZDgRQ AgICAgICAgICAgICAgICAgICAgICAgICAgICAgICAgICAgICAgICAgICAgICAgICAgICAgICAgICAgIC BrVQEeUQZyLGUlQICxRB2DCLOzAWZuGPIkUSMnMTCr ICAgICAgICAgICAgICAgICAgICAgICAgICAgICAgICAgICAgICAgICAgICAgICAgICAgICAgICAgICAg WRAgGMRbSKGaDDOhOIDxQFSeSGMnSSRkZT7RRFNdMYToMALiVSTlDNKlEFKgSLPiXZNhRSMtKSDcMEHg ICAgICAgICAgICAgICAgICAgICAgICAgICAgICAgIC XzMCNvCHUkQUMgKXWzRCXxBKUqRDIsLIZjMQVkMOYdOWPkLP6ZTHAaTYPuQCZnIKGdQASuSDViCPHaTB AgICAgICAgICAgICAgICAgICAgICAgICAgICAgICAgICAgICAgICAgICAgICAgICAgICAgICAgICAgIC LdWYBpIZCrXRWlCQAtDXGfNJ8VCSUmAYKzEDPgHUFf ICAgICAgICAgICAgICAgICAgICAgICAgICAgICAgICAgICAgICAgICAgICAgICAgICAgICAgICAgICAg JNYrGHGwBVCsGHSuOASdRJTdBTUuLRKoBFZtYB9RWIPeTIBkTVRwUJSlLWQlLCKaPVUvBKDaSAMwXDBv ICAgICAgICAgICAgICAgICAgICAgICAgICAgICAgIC VhJJLeUORmCOWqJUOnBKKkPNZbRNCbISVlFFYhPBJwZRQjDDXzLB4UNH28oOHia4L6XNFmIV7hlak/Pg 6ZUDevmaLwtBUfHD8WRwBxWS6pos0KPlDhHF2ymd4EUWiGRlOfD0Q4bGEgRUGtDVUXQmBtB13lIYpdFa 44RRytVVMwVjNfRYz0At1QGzZhJ2oqSQAxTzK8NZXl YvP5EQDkRyN3WJMtOgTyGFBrIPItUY2BIIAkA015oeZqTU2ATd5ZLhBjWK8kyp2UUqVnSHPuCasGHam4 KGqwQR5IgUVhjZPiNoRxEPVPQyJrA1tvd1KqCkHqMPQSPRhmJP2Qk5LvrMKgMVx+Al4LUC6vc9NzEBah WnKpRO9pzl1AQMcUTvAsU3HjeVthSCNxt0uuZZMoNP 8ncPEcIVO3YMRknRqbBRLDiAWvHCViz20aGUDITPCjnFB1DhJmNeQcVzVbVTZ2GRMgGR7qFLelPV7PZS V4AImmHQOdPRGxZ5pCFpVpMJRuTaQclTbaXU7HQwRvN7GrptUujRGrBOFnIWBLLa3+DQplbmRvYmoNCj NbKIJyt5YvBSe0NX0HWKAcNHjhOL0ZVIHpgC3kRAvb NK5YDrVaJNQnYPDFAcQqY18tlTEuTAk1B6WmKrJkLITjDgxwHJBmYKboClKfFLTlKiGpBLvmHH4+ID4+ OJbhXI7SWOjcphGrJAXfOe7CMFXbNRQjHC2nXKHgXVGrE8C8hMamHQUSEuVdW7dsmhxfBC7mHQLvS631 uDsokePaRVJvRCXyHj5IFZJvBCC1UVEnfVLjHuAgRE FGEUuzIO4JbRHyJXW9tP7sMSnfQYIvEAIqJ1yREcSyrQyjZS16vGljuySgtPXrQOl+Eu8DXC3zg8ZjZM o3bgImHKquUVS7LLmwJMXxBAVsGYMwTSN2JMB1FBUXHnZvYVCoZISzTNklFTApTTYilw7PAJMtNAKuTW BrYEPkKEEdQLAsSYgaALBeYVChPgXbRXNrDYQyGL5I BcFlZZKkKRXiIOflGUQfVMGrne2QTVTrBQIxXPQ8JpNePXYsLOIaFNwsTAQgSHO4EdXjOWQoJLFhRR6P CnJyMLKdGGbeVeIaFEJuGYDehj1BKHOjWCFoLNRoRqTgDIZcVWGmKWmwYFUbWSBhLAW1VSMyOBYpKC8W VbSpGDDyQDJyKhNhWFWfHNXcdj4QQGEmGZVtDsN9Jd IbAXFhBYCzTUpqNPVpOSAvEWDySUEjRIPxDB4TRgBnINCtBZB7DKXfITUbZFPbdj2NITBqRYNxNZReTW CiZJCeVPEyPWubNKOvYAF2MEgkZAZsHHOdFQ6MSqWmIGOcRXLrEPXrHISbKQQwaf2JHMIjZROqIsB5To QjASGkQGChRCydYHVzFFF2VGOrZIApHAWpOE7IIxHl VUHrIPx3EFDxPKVlMPOtll1IYGLjAMFhYaZ0BHQhFGTcWLBlBBzyOACgYZU5VDrrFYYiRAXpVB0THcMt PJOrWxnvLbXzCUFbKKOgrt2PBGKgLONmUKL4NSBbRXLiNFTaJTkwEAQaRRB7SovmLPOdRENrCF8CWpCt ZTWsPvNfVaPqMTPxHDCylo7ACVGpAUJzJYE0PXTkTM HkIUWsBOdlDJIoNIMfVYGiJXHrYVZlIZ6TDqEiAAYaOwYyCIHoASXzBTHonv4GLNUoVTKiZHA6RNZjUS RwHIXtLGfxLBYmKOFfVUUiZYZxFRQiYW7WMoIeDDHpUqLaJzrmLDTzEGNlzw4EYJHxFMSzYeO7MBMpUN RyIDPeWYayBPGlFFFaZaBbVDBgMHCfIS5IZwKeZPpy WRWEGbs9MPqpJ9s9TYDtLX7XW6Ooe2KyOzAzOGXILBwnXU5sydClXUGrAv8LQ4kAOiptRSEtJeMrMGR0 NDPoS3NoUTLoWTFxC4Z0ZWEqJUXgRE5cBIUwL8O5YSOpMoJvHSV3FWGjDPP8FyE5CtM2PrHlNuI1GcVw KD5AMh9EIaL5ODK3mYYiGj7KBxP3FUFFBpGpEK3LUZw= ID Date Data Source [id number] 02/02/2020 07:10:[address] [facility] Name Value Range Interpretation Code Description Data Sudha rce(s) Supporting Document(s) Discharge Summary [facility] FRJGWg5zEjTEJkOj93/VZLhfCGCyz8TuBZihOLb4KGefYLPxG5QuZYS2iR4pVUU4EIaWRwNuNkWbTQWx lbm [file] AgICAgICAgICAgICAgICAgICAgICAgICAgICAgICAg ICAgICAgICAgICAgICAgICAgICAgICAgICAgICAgICAgICAgICAgICAgICAgICANCiAgICAgICAgICAg ICAgICAgICAgICAgICAgICAgICAgICAgICAgICAgICAgICAgICAgICAgICAgICAgICAgICAgICAgICAg ICAgICAgICAgICAgICAgICAgICAgICAgICAgICANCi AgICAgICAgICAgICAgICAgICAgICAgICAgICAgICAgICAgICAgICAgICAgICAgICAgICAgICAgICAgIC AgICAgICAgICAgICAgICAgICAgICAgICAgICAgICAgICAgICAgICANCiAgICAgICAgICAgICAgICAgIC AgICAgICAgICAgICAgICAgICAgICAgICAgICAgICAg ICAgICAgICAgICAgICAgICAgICAgICAgICAgICAgICAgICAgICAgICAgICAgICAgICANCiAgICAgICAg ICAgICAgICAgICAgICAgICAgICAgICAgICAgICAgICAgICAgICAgICAgICAgICAgICAgICAgICAgICAg ICAgICAgICAgICAgICAgICAgICAgICAgICAgICAgIC ANCiAgICAgICAgICAgICAgICAgICAgICAgICAgICAgICAgICAgICAgICAgICAgICAgICAgICAgICAgIC AgICAgICAgICAgICAgICAgICAgICAgICAgICAgICAgICAgICAgICAgICANCiAgICAgICAgICAgICAgIC AgICAgICAgICAgICAgICAgICAgICAgICAgICAgICAg ICAgICAgICAgICAgICAgICAgICAgICAgICAgICAgICAgICAgICAgICAgICAgICAgICAgICANCiAgICAg ICAgICAgICAgICAgICAgICAgICAgICAgICAgICAgICAgICAgICAgICAgICAgICAgICAgICAgICAgICAg ICAgICAgICAgICAgICAgICAgICAgICAgICAgICAgIC AgICANCiAgICAgICAgICAgICAgICAgICAgICAgICAgICAgICAgICAgICAgICAgICAgICAgICAgICAgIC AgICAgICAgICAgICAgICAgICAgICAgICAgICAgICAgICAgICAgICAgICAgICANCiAgICAgICAgICAgIC AgICAgICAgICAgICAgICAgICAgICAgICAgICAgICAg ICAgICAgICAgICAgICAgICAgICAgICAgICAgICAgICAgICAgICAgICAgICAgICAgICAgICAgICANCjw/ mHWsD6orgELzfoJ8N7lqRv4WKn0XQK1cg7EhICLuARodozHuTwuEVwRcTXLgOoaIBgr6RZpzON9CnJBp G8NiT5KjTRqtFH2MARUvJVLsqIFmXCWqVXYmDzZ1JE LxECqbSW5GgDWlJQfdLGQpKAIbWiXwYAEcGEHyPDFgUIVoQVWRRB2SXvLkO0ZoiC68REEHOn5+DQplbm TcOpbDFlV7JCJhg4WgAUu7EB7MARHtIutbs3TqNeOsDIWWUHolFR9LGAE5AZQuQBZhLs7JCXScB273mf TfJF7FFl8GRxZxOX6izk4QVqPrOCYtRxqJDdc9XIlj QI3FuVAfVBxNzEJlvZQtV5AoM8ClaUTphFChvEUPsUAoHMZZKVk0GuSzEXlqQtVzYASwOC6iJA0eYPPb KZIiGoJtTAONPU7EOYRqZWYgcPGaWNEyJPSADL1UNWmkFWZ2IDEllmGlsCSpOQueLX2EPGYtcwEeFywm MCBSDQo+Ea8PHM4xi1EuVBlrHNSuMT7yqf8WXFvOTg MdF3G0gXZtA8B6BAyjMm0PTTErHCPsHbmxPNZEUCnvRL6UDE0kpmO9QX1XeQZzLRXmCLOriJWtSSw8Y9 1gzMFrVVbfZB6REPS+Dulce+Bi6GWCCvRTPeMYMwRsGaPOMRLpTnY5YdU5OWy2WdJ5MwXP98vVgljrPtCL wlRO9XYU8lWDUeQNZERQ6DuWTwkI8auxZfGTTgLGEJ MySqD15chYUlAXRoIKX2BGPzXx8XBZItX3CqxfZcuTsfssBqAMCiCMVCLH4JFNxjfnWrbIFiaBylFQ66 pKqeCQ9GHd0CUxLcXY2hih7TiNRiNb1URJWzCq9PWCJqHVBaGZBvYRN0GPNvVmTmYAupAIBzTQLeFHB6 CVVhMEWvWZ5QBtExJHZuVlTrUuUzHMHkQAGbmw1EUW CwSGPbOOQqYhMvEAIaHVKeYEyvGHCaQRJlNBB4QWLaQBIzKP0OHsCwRNOhNJU5MuMlZQMgMGZehn8HNV DcWUJpBKU6OISzQYCsWNDrIMlbOGWeWVK0EGM0DZLaGKBkSB8HPgKiVXYcXDi6FwDbQPLgUHZemq0GBP YlWPDyKyS4PKUgBQTvLRYyLXxwLOUzBHYiUKcpYKIk IANmFA6EBqSnBSPtIZPoIBFsTGNcZPWfap6HBWBsAIScXXFpFwLeRADkTMDwWIuaBQMnCLA7AOH2NIZq VUYcGX1HQuZtPAMuIWW6MhEfCRXnTSTnxi1RQQYvIGVbSba0AzSsQPYzHWGdVTgjSUUgUMA7DYK9FEDk OUUnZS8TOlMrZCReBUmvQVklQDNfBQJrxs7WLFXvPI ImLUO9RNFaSDJwZCJuJLgsRJLqKCB0NMF7PLPgCOBrRU8XGqYrQMViLLxnIUDnPVDlXLZgro8RCTFhQL PkHSTfJGFdEQFsALTgIRnyDIQrHPSxFGf0CLHfZYCzVW6EKtBiOLHeZrQ7GLByZGTmNHSmul2ZQKKgSL KkRPl0KMFcVCHqQMTzJKbjIUWcLCQqSXH9WMFnPFQu YG1WAfWbHCWfKnRlOKbgXBEmIBUftg9GTKKlEYHeHzKlHGJiJBWdHSMcFVjzYAWgDJOjKvj2RTVuSIPv LA4FKiZxOVOkPmRpZYErITSdJOQgnc8JSJKpIWHkFUXuWVPxSTUlWEDjBGcnMSDbUWT3Gdz4UTFxMIAn PH9OBkVlVDhkAOZWJsm7RDqqJ9b4IYLfGl9OT3Uec1 LiWyEnZGZCMXjiKP7qigRkRCNuGs5FD6uXDxj7RNClMiPxIYC6JZNgGiD9HPXlSGT2XrObMVFtVsL9Fr 6lKLR6JUTuX9LbFmreYrPeGljzSpA5ZseaQuWmP2ZvUqe1FkPrBC7MYv3ANdQ1MIP7nZTsKd4VLlH6Zr OMCvClVJ8EMNt= ID Date Data Source [id number] 02/02/2020 02:31:[address] [facility] Name Value Range Interpretation Code Description Data Sudha e(s) Supporting Document(s) [facility] H o[facility]ital GLTGPy4aPfGDBhNni5GbEyTpHIAyEY3vwxo8E1D2wWJhS0BahPNhm2rtL0MeN9EzBCVkTPUHZY5KnXXi jb2 [file] tketE831O8/LP0Ei6Gr/UA8f4Cfxa3BPqg3razb+1+/TEACHER OF THE HEARING [employer]/[id number] kKXBvLGGj46Ozt6ylp//yKxA4nO1u9xn0Y1ro8kagTB6ilsfV2S49X5U6qz8iYiVf6Q/9e0q3/ru1Xaf ltYsKxV09Qyc6MQ7wjB+UDlNkqI43bj5/x84YCR4PQ 35ou4dCwLsxtgaPvyiX//5O/Q8xsC0UCcI+HeYd+WK7OMY+pdB/VJyRJ8WQ/7qMIb+ZQ9/dRZD/7KFvz kU5NKacv34jf1TV44x7Qg7fqk+o08l9a7F7JfsarP4dZt3pClLV5SAjTrOZ5M3nChSLq0kb/9966sDCD u15KucpV0n3JJx+4q1ATiW9l4Cbg36Y8Aw/n1ZrPfg 5Bu3camc+j0NFo8X5gkpv19/v0l8D0p+PutRrz+M7c/yvSF/rrq+04bte8IIWZaidPbX0J2jNxFY0phM 2FNuUvsHH6orkwr/Dd6NiJ64EU99g1nbsark+7PsPLc/b1RTyCV8D598F2HVUyvtp2i5tMf7u/yr79DZ Ed/CIO73rl+noYc9VK2BIwM+Uc9C/eu2+1189BtSZ0 jA8WPu7ps/2w172peb2NPxNO6so4VN04RX/0C7W1/Zds1r/zWv/mf04o9G218sRvF1Q88RtlaVNj0/c3 RkPvIwQZH0IFoQN0uWlJitRC//c7LVPVCP/ooVblQpWArCXMrC47syxDqp//D8pcVi43bL8E5Hu3/6fN QfYmWRvb13KyzSr91qoD1Wetm6GhB7nQ+P56H/6fNB n4/xJce84E/2fI241L3OUmNiRg+++xrnfqM/P/d7/4dhF7Lg8/Ma+O6QyxVa/f+nevokda025n6Vad8L 4oxDcZ2Wl1Y7TkhcUlw53hkDa/2eHAjf/991Tn/of/o+3e+q1xyh33gSi8/z3G/05+d++//1PPQ/fT7o 80GfT/w79lvDNe/0+mgE66h6s24bctj2chV7uu47/1 N9XnS/i+gcofs43qLDefi7j/5yLCk385x8gIe90h9/+rbnd/170eeLPt/4Am3m7Oya//L4ou9A0VrDdW 07Po3ebjjp6H91eA+j/lwcpu1N43D+tposWVwh975QGmB6//1dp+3tYw9kn6W8wf/26fxd3N3OJ8+9/3 /1x/LzmyWVT/ao0F8yce0/Fcli2vQ/X33wSd+f9Pmi 6246SMgECnHce9XPQSdNzlTmgPNw8L9c0GXrc4T+D/s1V94jlxS4/0reQ08fDxvJq1uN6aKyJjOcBRxT oXUEefPeiJUe6UyoXc/0+aLPN32+4RNc9h8+/50+e2kdgZh/+xwf38MQrr9qT45h67yS/z//qJ2oB5m+ wv+TPp/o8fg6Of+J6LIp5x8T65XQiM6lj3m6Hwf+J9 Kw5fz9C+nzpM+nb39yg4t567L+uah/Luqfi/mmfh25aO2f7d+L+tsOA7mJNQ/2Y305hG34O4B/Fi865R 7Lqgir32TNiBLk83fNv/Winifred/Q78//e5H/1/cg18/9v3nXO/Tt2Ccj52/7/h78BBHIW8kviYcGwxfMZwHU BnPvh0+Wc+jSIJpZQ8Coc3x+o09E25WsXfPeo9sN12 yMkucCb9/5Upwo432o//wLe3zJQR/N1tuXgt10J7hhsLQk4y6+fafvrqBBj+0jMAn601J//GO1oNgvCu 4xSz8kRewMPz5Wj/p3/+p/sd++3HanzjUbW+3asqeHNbAso0Bk7PzA7llZMYE/y+j+vp revenue cycle+tz3Up//xzf+ [file] 8e2bb7/7+vWQj5//4m/8/ICT948/38gP08le1/9g6jga7gJiy0c67sftg8XDgQcN8//4N25zc/r7Nt98 +zcvZ0315fuoY/pLi2tWr/odu573yWaNs+/vdr0jP8 /6HgH7kHbt48/+/G9//Ouf/vCvb//H/3r7+ttv/9vr9f/dw062Hifsq466+5QPDy79/ct/Ge1f/v7tL3 9+Wz/V66f+SvpZk8+sv/3q6/9UDfwwlNdC+9OffvrvfPReUrBcL/hPvwb+dwIi8D152m5I0BH9J1p/dP 2NPSi8bJvH+q1ApQ0hu7p15tV0pE4I73/26Fe61Cdt cef+wXd/+Lc//UZepf8B9e9+fPn9Lz+9yuAQfz7+8pP1arD0uqnl/+z+FyxbBuff/de6eVzjxzUjV9bu hPPxEi2U+/Uf/vwf//T219/9xx/a4a72rj4KWF/7R3/rS9AwVnRLf+9+wF999/bHP//HH/76//zuf/yN 2x+Vgh52uBjnMrLXxp/YP3/3/du//s/[place]//xL3/+8e 20Kx7Tdx+3eLB//vTTf/70e+CvIViBv+YvP+4dKeR2imtGZ7w/wuRHL/7rp7p08SedUb/7Whc16M+++8 mnt9/9v3/49//bcF3s1i8s/IudwhqBTXQb9pUltWM//fVf/j4Bet5y3nr/+NPv/gn4Z8vc8Y//7n/+/n f//sff/vyWbwf8MtxJG5FEga89e7/+9NlrwND+o5+c Il08a51/Rbnd47lVuS2s/NMffv9//fmPv3+0xyfjug88j7/88Q29s4t64W//41Wt/vWzHG3+8zOdqmRf /PWr0/7+X9veisp+3//nrvKr36uQ+le/+z//8CZvf/w0g4f9MCzEo/T34xYTC0o04pEJG2+1PL64uD6f Yb/86izV471Lnf3Hp0rzd39/f3W6r9+95iET3ffSv7 P3/x/MfQYrAdVtTSU4tdIsnLdecnMtWphZOXufWFLwUxk2UL4RtEQmHQQmT5M7FQEwyx1sZRCqXJIhjZ AmFfTnCLKYVD8RbRGdGJ4TQRo1QVGoYXDeGbEpNOJhxwS1NUKnRTOqUDOvM8GkeeMqkEOxRIBrCo4+ZW 2oe1HjAzXxNAWeIqv3HW2TeYPyJT3BrTNgyM7piiPb U141xdWoHPTjDiuof4LfHZzlGGCRYM7QTPW2BOL1PNVpOc0+HM3fz6MbPsRqYEPdWbh0ZC1ZsSNes9Io TD3DN8UpGDBjNXCSCXD2h2EyMZPtdxabhapjE1XnQOT3lB7uIXV8EYIkDUsdUXUzKLsnFKO6NdCuHOrw MBRmGBLnJCLtESBlCSo6yJOsXV8AH5YtOXOeXKDVCA IfcsKwOt2tWGrCHMoBE2FqZHDSRNZULNvWWZY2OMGjFKCeBF7EdKTeICH9XFqGBCNLKSgSTMpgUhJom5 M8LPKrP1VbIAWtnbBkKUTIWJmrXgixGX4rdPzcouehT8XieUAwDZVDUPKqDHBtPBUxLOGxW2Kyq2H7A5 DyHDvRSPIYAVtOKUxuRcH9k67mpfXSHVNxYGYeLF1+ AI3rz6MpJd8EOKSwJE6pgpq6NZ3TzPDpNO1UQChzfgDhS3hmxdGiHuJaCHQZMF4nT4AbrA23ZAW+PmVu BZ1nrgt1weJyLlWnLFNsHBGwYCLmBZylZIYiHUEsYUWePBV4PWI4IJOsQbUsSURoCrk3IVxkUPBeCBMe peWMDYEiYUO6MGQ2VQOlPLSvTKCvQRjtGPJdPDU1Cz H7NBJnBDVuAT7yFkQrXBOuPTRaLUNmClC7KnNfVyQHCESvPSQxJMIcXiPyKRGaPGMlBIyxJKPrDDPpRO q4SCBsUVXgLY7rDvChOLAkPZIqOCFeUFHaNJIolrVXLDQpEKKiLAW2FIKvITIgTKHmKFwxSZFeMQUhOL B8OPGySCDjYY7lFhOtHWMzUCO8XbWhUEDfEGIxwpJG YNWaCQCdGFZ6ZJKuWKEiTEYqHEwvYJOxNOEtBlB0YQCcAJXvUD2tTyYzVBOyTQN6SUMcDAXdVECpvoMY JWRsJRNjSVy8RzHzBXEyQADqXJrfLOCrMYJoPZgvQVVxRGKwXP6uMgNuTPMhAFXiWMYzNQSpCSLtgiWY VISdXAWiZRJ3ZhCnRISrEIYoKJuzZDPkQBBxCEH5FK HlZFReWS7yGgDaEFEwGppdQLamVKAsDBLlelTHXQDvIWUyPNPtXCKdCPCwVIQbBVpmFSGuALYqVgV0EM HnOMDgLZ2pFmPfEUPzMYI4RVCzNGLaQSBanvYJSCLfVDNbOYVsIMG6AIAmRBUhZRs4taJvuWQrXqn9Pf 0QlKwnHYK6Dh2JqjGqQRUtOSBIWy1Rp539YYGpXJSNKpg+KpnyoOFuaGbtTUNGOdb4SSYHXVRSD4Y= ID Date Data Source [id number] 02/02/2020 02:05:[address] [facility] Name Value Range Interpretation Code Description Data Sudha rce(s) Supporting Document(s) Consultation [facility] TXSXVg2rSkNKSjIk69/ZVBksNETga9FrKRnsGKb1YBvlQDBeU1NqZDP7iR3aRCB0ZPvDAcDyYxXoXLGf lbm XtGgsQMjBdFNZiDyaGBrYoDJmbJybewSNjUH9NvCB0LGAjE35fXXCmGBIuY7KsOGGaBXM+Ic4KCNHhxX KvQI0RAkuE1E7my7r3Hi0+wV3HUS93oJPYPxGP3wUqjFQE4rt0S/a2+2W66jM6jbDRFM4zvi4GJ2mzlQ 7iUrTbTRuGFiZUuNuV8bTrLET318aqCC8sCLShc/kz lTbGg0l//qFubhz9lkweIirWExTo2ZpLE3Uuhcj3qCQN7Ra4CCRLTF6hffrO+q54E1m+sPm7clp2+Dab TP0Dp59mH62zveGidNt99b4WbiCu3X/y00/i6j/v3Gr7kbpTKh3cz3o/5h0qZRT2wLyzZztfCssCgb4n FbZTfZhuzOevQe7PYqY03I5XPDGbAZyTC3UoTxPDIg E0Cz+JmVsZ5BFilkDuajfC15JuNCYSwlS+wLEL+BrZ2HASu/Vmkv35oj3J/QmcZ8NAwvwKVNaCViiLfj oIzwRTs8Q7q7GVZgQInKpqOtXaZPbyCp5fkuNMYyAhPwHs/u2xIaRvxfxs2aX9SjA5FVRs/GXgOlq6u6 O3jPPan5oCf383ZxEj7J6/Bx+97dNR32B4uR3OEMH1 dqCNbrXVWyF3pkwp7QF0GaWi40cDtg59lvo/6IqLXzIcjlXbYm/TgfrgsMv01YK5CYwERzJy8ihknrQh 8I1j+BIFZJ6MTkPX26+oZfgJ28ja/1eOK+EjcZsiqPf3JyqMyuoQsinRmCGLVAnQbxPMhpAoxYskShjO E4hW5W7vPLyTlpVu8jw4cBPUQHI6DwjoROyJj9/ioR nu6vpq3fNN/M4zmwv7TCvwxqHiNwe8yMj9gEG8gM7+Roberto/Ia8xkb3o0HKuqrvtXDR/ix2Bh92jQrtE21 [file] Q2Lro0FhOaFGWuPKZmQQXzXVFzXzKeEHC+TJ9qTUi+Sp8Rb9RnwqQ6sfHkTLo5TLq7TPraZTTLAn7M ID Date Data Source [id number] 02/02/2020 01:53:[address] [facility] Name Value Range Interpretation Code Description Data Sudha rce(s) Supporting Document(s) Progress Note [facility] AHDUYv4uNlAZPjQw94/MISgqBPKxs0TdNQmkVTr1FMhrPXHiW7LvJHT2jP8hRXO1JOjMQnInPrUvHPDs lbm [file] LqldZGblTtBrDmA0WPW+XL6wZDl+Mt7Vm6IjdkM5ysHuDOe6VLqnZXiqWXUMGx2C ID Date Data Source [id number] 02/02/2020 01:18:[address] [facility] Name Value Range Interpretation Code Description Data Sudha rce(s) Supporting Document(s) ED Provider Note [facility] VIXMDl3aGvFIOfYg42/INXpuOLIce3DdPVkkHBm9WSzsKNQgF9BrLAI1mM4nLAO0IOkZTdXxCkCoSYLk lbm [file] gx/9G1DofGqNq+buwgb41Vu4x17YiKGWlAJBWi+CVvcnKyRtchqoaAqp3AayrSe5IgimLBrQf/OM/+SUBSTITUTE TEACHER [file] YfAH0ZTJh= ID Date Data Source [id number] 02/02/2020 12:14:[address] [facility] Name Value Range Interpretation Code Description Data Sudha rce(s) Supporting Document(s) Discharge Summary [facility] EJHXXf1jRdBKShDv21/ZCClvXYGks4VwBWmjURq5VHewHTKjF8VmUVI1zC9fNCH7FIeNNfHwAjItNTWn lbm [file] AgICAgICAgICAgICAgICAgICAgICAgICAgICAgICAg ICAgICAgICAgICAgICAgICAgICAgICAgICAgICAgICAgICAgICAgICAgICAgICAgICAgICAgICAgICAN CiAgICAgICAgICAgICAgICAgICAgICAgICAgICAgICAgICAgICAgICAgICAgICAgICAgICAgICAgICAg ICAgICAgICAgICAgICAgICAgICAgICAgICAgICAgIC AgICAgICAgICANCiAgICAgICAgICAgICAgICAgICAgICAgICAgICAgICAgICAgICAgICAgICAgICAgIC AgICAgICAgICAgICAgICAgICAgICAgICAgICAgICAgICAgICAgICAgICAgICAgICAgICANCiAgICAgIC AgICAgICAgICAgICAgICAgICAgICAgICAgICAgICAg ICAgICAgICAgICAgICAgICAgICAgICAgICAgICAgICAgICAgICAgICAgICAgICAgICAgICAgICAgICAg ICANCiAgICAgICAgICAgICAgICAgICAgICAgICAgICAgICAgICAgICAgICAgICAgICAgICAgICAgICAg ICAgICAgICAgICAgICAgICAgICAgICAgICAgICAgIC AgICAgICAgICAgICANCiAgICAgICAgICAgICAgICAgICAgICAgICAgICAgICAgICAgICAgICAgICAgIC AgICAgICAgICAgICAgICAgICAgICAgICAgICAgICAgICAgICAgICAgICAgICAgICAgICAgICANCiAgIC AgICAgICAgICAgICAgICAgICAgICAgICAgICAgICAg ICAgICAgICAgICAgICAgICAgICAgICAgICAgICAgICAgICAgICAgICAgICAgICAgICAgICAgICAgICAg ICAgICANCiAgICAgICAgICAgICAgICAgICAgICAgICAgICAgICAgICAgICAgICAgICAgICAgICAgICAg ICAgICAgICAgICAgICAgICAgICAgICAgICAgICAgIC AgICAgICAgICAgICAgICANCiAgICAgICAgICAgICAgICAgICAgICAgICAgICAgICAgICAgICAgICAgIC AgICAgICAgICAgICAgICAgICAgICAgICAgICAgICAgICAgICAgICAgICAgICAgICAgICAgICAgICANCi AgICAgICAgICAgICAgICAgICAgICAgICAgICAgICAg ICAgICAgICAgICAgICAgICAgICAgICAgICAgICAgICAgICAgICAgICAgICAgICAgICAgICAgICAgICAg ICAgICAgICANCjw/hJLxZ5mlnXRjqlW4E2pjPe6NIz0BRS2ye7FxVDSkPKamjmTtRwxNPzIzABBiBdxW Cuy6BCupVS9LpVRgR5DzM4SwPYitVU2KMGDlCWQanG XcIGAuWVKlLyN8HXQcAUodXN3RtLEwMBwmGRRvMDYoLqGpNGWvQBRdIUAkEJHnDDXRTL1YKtJmU5SdeZ 97HZCPLq1+FHsytfYwGazCGwB2GVEji7UfYWr1OW8XTPBdSubwc8PxEyOdFFWHQEqkME7UWGX9QZTzGM XrHv6NKTPbS679vgNbDL6EXx3UHbViNW0wfs9VPaOu BEGxSgxWSaw1UQpqLN6VyFJxYZvOeNSxlEKeX5VbY0EasRHxmVMepTPBOQ1wXJMkKVMvi4SoTVOQLNUu hNP0JgU8PyPwNzZhZIW1CZUbHD1cLJmwJU7OTAZ0GNlsLNOxTHTfX7uXGmKvOZVxBvWrtVifTZ3NToCo L0AvoqJdjXBhJAYnURDKRe3+DQplbmRvYmoNCjMxID Dfm9SkTEr5YC6DTKFiAShtWV9PHIJgvT4pMVrxXW8APqAvQgDzQQZBIyKqX54znRApOVi8R9PfQbRcUZ VkRmlsZXMgPDwvTmFtZXMgWyBdDQogID4+ID4+ZThpTS3QWNaxzdHgLZGwCa0ABXFfFYRnJD3fNKQlPJ IrP8S5rKjbEFCDLoKrY2pgwwhdUV4lNYKjA126rUou riMgNHU5PPLkBp8ULRYkXYY0WVOzmQDzEfdxLDCGBVojEH4MkJYbUVL3sP5fCDqjKAElPJQuJ4hQNrId jAwcBG12gQxwebFpxERzWTb+Ry9TZD9et6WsLSm3ssIkCJvyXUQgSNzxVWViVUMxWTGjGNP4RET0NBDD GvBjYHSnBUPdPNsuOJIfUBZksz2QTLYoHDGkUXa9MR PbIOUbCXHnBAmvOSBgKNFbDwZ5CITtZUVaRN0NBcRfBVWvFULjLDmyNRRfHWNrsp5DZOHkJMItBgb4Gz ThKQPpNITwUPojHJKoSRYvNEP0COKwCKCkHU5NNtSnRTWnPCi1YuEaDJJxWFVopq4PPMIkFGLkIqj3Dw OlVJRpNBCzSKycFRZmQKBrXwVrYGXtSGEeVI5PRdIf THCxNII5LBrfWDOsWREzyi2OLTHxTDLoLyl7KROkWWCgGHDcDQyvFSZoRJMmVQq4ATVbYDMjAJ0PQmPw IYEfZQOwREMuVBZlFQWkik0DPZUuOEJqJLS1EKOyZYSdSJSmXUkjAKNzMVN6ZMG1GNOzCTFuFI4FHpMd NLMkWUKgCPOvFAZoSHKcqs3MXANbHGTwBXT6OTOyED VdFKHySXczLOYcJSH6XxzvAAToVEBjFN9DFtAkVUTuJGY8HBEeFYPuQABnpb6LLNIrNAAjOvi8SKReMU OwCIDzVLksBYDzJBS7EGNgNENvQNCoPY0WRjHjTSHnOWhcGCMbMIIqTBUyrd4KHMLySOEnDVM9BEMbQK DsXZKdYHmuLTAnAAH3VTneEGZvMJSlHG7YSjTeTGNs LSu5ImAnPWCkXTSjxh5PRIAgNMIiJGFaZwQzPFReDQAiNGegMJAwOAF6LUC8ODVxZWNfEG3TXyEnESEk AeCbMOXrOXVlVTAmvh2ZNECyIWDlYHu0VdGaNMRbONFdTGnvJYEtAXGaLBRuTNOqOTFwHF1IYxCuVXMx QsB1BcGcPMUyRQGrsz2LjLYfsUvrwl3OTGcJSu8GfU tkUKExWIfqJf5ztTEqPSLmFZDRNp3KmhDhZVMdTBOKKZdiQDQyILIxVAkuUiLeFmUqAELsM9IjVLH6Qc Z6IDy0NWR4FQTfOgF6FiB5IPHzJwTlKWX5ZfYpTlL5WYFiPqvgVgL3XRewUPT+YH3fQCl+Ht3Gp7Mvky E8hpPgRKfxLyRhEO3HEWDJE7IHWy== ID Date Data Source [id number] 02/02/2020 11:58:[address] [facility] Name Value Range Interpretation Code Description Data Sudha rce(s) Supporting Document(s) Progress Note [facility] IRJCCk0wHkVMXbYv98/SMEybMFGpm4TiPEaoYXq9TYnyZXLzI4SjUVO8aQ3cGCD1WMrSSdErGoJxWHIb lbm [file] TEpzGq9zKZJQTm3+YHwotILojCdkNLUVTsa2TdLSVzHnBC7ERRx= ID Date Data Source [id number] 02/02/2020 11:37:[address] [facility] Name Value Range Interpretation Code Description Data Sudha rce(s) Supporting Document(s) Progress Note [facility] QQHBNv7vIbYILcQv95/ZAWqpPTJng0KhAQvjEWe1KTvaXUYjL1KtXIA4oB2vZKT9TJwDAaAaDeUwFLQu lbm [file] BmF7FUDaZWXaNfR1HNWhYSGuSKPiJJ9vRQJGSd3+ZUlwrPNoqCbrVYWNHpc3LMsLHtWwKU1EMCs= ID Date Data Source [id number] 02/02/2020 10:01:[address] [facility] Name Value Range Interpretation Code Description Data Sudha rce(s) Supporting Document(s) [facility] MVRNQh9nDnAGJuVwq1QyDwUwEXOiCG2ydgo1H3A4eWHqR2VfdSByq9naM7ZgX4HzEVXuNJTIFS1DfPIx jb2 [file] sZqpQp/rfq7MjFBU5suIlaDeprqF/plant wire chief/b1nbA52xwg2O43cu9nb/f5r91PpBYbIbyo8xW0hRfsoaKGe [file] j90p2b5op+Juan+GoqXRupit6c6689F9+5gacHzK/4O9SKm2/GtEN9//w47e/+fjxVz98/gHqn18dwli1 N199+YuPH7/95tefvv/hm8+/+dmn73/55c9//Pj4+P 67Hz9/8+2nj+8/ff7+m0+//vIXP/iaW0A0v2ce2n44EroJu+2bb3/40sZ6t9/z+etffvzTN5+//vjuq6 ++/FSa1471jeMC52/65Zeff/z+76ieI113vkfDL/7iy+8/vvrul7/6xaf/49MP/4jc88s7F/vd568/ff 9P3/yo6yAt2084/cXHp6/+4T+5XfKb/+wwZ332qM0+ /+fxBG9EUw/f/x9bfww4zA5Qmh/9aTEez+mf4uccFl598t++/zitB1342hvHo20+8tt/+PTxT1/+8PH3 3/347c//kydvWeJ+8qs//+lf//CXP/7+Xz7+z//98cvvvvvvr+r/t0+p7s9y5u4/8/GrL3/+5cc//5fR /vmvP/78p4/5c1c8cGFa+nILW48d9rx//A+j463Gg4 Fqf/zj3/4v785UNBpVP/0oo9M3pxlQ0+vr/w+r81TebV/Q8IzAiRiJxgN5c4+hs489B+oY4eJepccM6q urV+f+uD2zRA0q7m9i+9//6+//6wjgnB2+Xd829Nsgg/35p+8/bpReOs30aart6hZxMcNl2X+igavd+b i7rFeH/krmavT7qNjCy78xhaPms/79n/79bz7+8tt/ //8h1b9R2dDh2Tw7/ZF/oHQKh9QQf1Q+wF99//GHP/377//uh854C/6T4k+jvhcfdT/Y6j8t/WD/+P0P H//yP191/8Of//BG0i9A4F+BryRw3P1//+0/fv4d/+59KfA2+t++YDX20v6DMp/ietKxS3n1NGx9j91Z WG8/zvAGvrSd82/2+eO3/+/v/+0/Dp/nf2vXz/7bj7 /13N9D0AHGR5Bwk//ln//6J3ef/+Hvf//H3/5Ly296g+Ff/fZ//u63//aH3/9jNfAouv92t6+ATyt9/+ c///IRXBT9C910v/MACHINE ICER//uC+KC58EnwCwgwk///nf/95/+4CjBOm12iewIRQ2+cq+n9Ih7/+3fX/3qX7 [file] MtaHdfKKYUYeD5ZdiDBBCIR7E= ID Date Data Source [id number] 02/02/2020 12:49:[address] [facility] Name Value Range Interpretation Code Description Data Sudha rce(s) Supporting Document(s) Progress Note [facility] NYIAWr1oFyWXHvWz56/FCOxyJIFcv0YkFBdaAQe5VSlfWMCjJ2ClXTS6cX1xZSV8GBhQHlJaNoBmFMKq lbm [file] Qjg6YSFuAOD9FmigKqx1KPXlDGJ0KeIjMCu9WV7u XSANCj4+JUohyLGgjDbeHFDCOhe9LVDVSqFeVW9OFZy= ID Date Data Source [id number] 02/02/2020 12:18:[address] [facility] Name Value Range Interpretation Code Description Data [facility] Supporting Document(s) History and Physical [facility] WRWTFf9qAzFZKwZu43/OLEhxAGTzn6AvCCceXAt9ZBcfFAHaR9ZuVFW8mU7hEUJ0ZVyOBrJyDmNkLLNv lbm [file] E5nuFxOTy1BOY3YO6QMFNUO2JRFy== ID Date Data Source [id number] 02/01/2020 11:32:[address] [facility] Name Value Range Interpretation Code Description Data Sudha rce(s) Supporting Document(s) Progress Note [facility] EOUFKt2cYuIXAvGv98/VSXyjTNMyo5VwAEvsRRd2FAseYJAeH7UrMTW8tC5dQHQ8CFzHPdDbVqOnTBI3 lbm [file] AgICAgICAgICAgICAgICAgICAgICAgICAgICAgICAgICAgICAgICAgICAgICAgICAgICAgICAgICAgIC AgICAgICAgICAgICAgICAgICAgICAgICAgDQogICAg ICAgICAgICAgICAgICAgICAgICAgICAgICAgICAgICAgICAgICAgICAgICAgICAgICAgICAgICAgICAg ICAgICAgICAgICAgICAgICAgICAgICAgICAgICAgICAgICAgDQogICAgICAgICAgICAgICAgICAgICAg ICAgICAgICAgICAgICAgICAgICAgICAgICAgICAgIC AgICAgICAgICAgICAgICAgICAgICAgICAgICAgICAgICAgICAgICAgICAgICAgDQogICAgICAgICAgIC AgICAgICAgICAgICAgICAgICAgICAgICAgICAgICAgICAgICAgICAgICAgICAgICAgICAgICAgICAgIC AgICAgICAgICAgICAgICAgICAgICAgICAgICAgDQog ICAgICAgICAgICAgICAgICAgICAgICAgICAgICAgICAgICAgICAgICAgICAgICAgICAgICAgICAgICAg ICAgICAgICAgICAgICAgICAgICAgICAgICAgICAgICAgICAgICAgDQogICAgICAgICAgICAgICAgICAg ICAgICAgICAgICAgICAgICAgICAgICAgICAgICAgIC AgICAgICAgICAgICAgICAgICAgICAgICAgICAgICAgICAgICAgICAgICAgICAgICAgDQogICAgICAgIC AgICAgICAgICAgICAgICAgICAgICAgICAgICAgICAgICAgICAgICAgICAgICAgICAgICAgICAgICAgIC AgICAgICAgICAgICAgICAgICAgICAgICAgICAgICAg DQogICAgICAgICAgICAgICAgICAgICAgICAgICAgICAgICAgICAgICAgICAgICAgICAgICAgICAgICAg ICAgICAgICAgICAgICAgICAgICAgICAgICAgICAgICAgICAgICAgICAgDQogICAgICAgICAgICAgICAg ICAgICAgICAgICAgICAgICAgICAgICAgICAgICAgIC AgICAgICAgICAgICAgICAgICAgICAgICAgICAgICAgICAgICAgICAgICAgICAgICAgICAgDQogICAgIC AgICAgICAgICAgICAgICAgICAgICAgICAgICAgICAgICAgICAgICAgICAgICAgICAgICAgICAgICAgIC AgICAgICAgICAgICAgICAgICAgICAgICAgICAgICAg CHXyXHc3U7imZJBhKJCyAG9pIFp0Qo8+KSpDKuMcTSJ5awNwrC9EDZ3nq3YqVJnoGJFuf2VqXEs5RP4D QPVfCHfuLO0IWWtdjl3ZHLRkSVLyuEWGy4jcJqWwXZO2NOFhKtwxLP2YDXGbS3szwnFeEXTtLMRJHGbf JDTZGK8JYeZfA9OxaT75GIKOKk6+DQplbmRvYmoNCj K7RFJjr6KmINp8VV6XZYIhTcjih1VnKpNlKKXXRUkgMG9LUHH9RRFvRAKbIm9XREMgG535opMhDW1XAi 0JKePlHN9dyj1JEiMwMWWaXlgDZyi3UImxDQ9JlMDhFOyKei3rlqFheyDWw6ZdenSpxDXTn68wA9PrWh KUWOBgcMcpZDTiCOVjDI7wZJ2yOOTyIQBxXwE0JGMV LM1EFGJvMSTnhQEuPDPhGAZOJO2YYShyIRZ8YZHiufDdbULpSCpcKH1WKMOycuXpUPnxXDBEWEt+Pg0K QZ1qq9ZjBOytBRRuWD0alu9GLKeMXsNbO8S0iDPtN5U0LAqgXf1FFBPePVTrCPuoMZPJKRirVL2DWN2h ziC9DV2AnOAfJSKsOOEyvVFlUAl4G03roXJsRIjaUA 0KICA+Dulce+Xy9QWGWiGPZrECKzNlFqAWOTRzKsE3UaX7KZs6HlR2HcJI81cHsczzBsMMwuVU6MOG3cCK HjFBVSOL6CmIRplI7cdrPkGKPdMUMYWnRkV85zeNKzNHTyNGC3UEHoQi0ZATAaX9JsmqSebHezcyZbYQ RzIOQQPS4YLTqknmFujBAhdSuvOB34vEbpTP6RWq1G QcIfAT4rpg5ZmXTpXd0VKGWyKg7TZSEqUCSeQCUlWLL0ZVZzTuYjZUmzFCWyJPBkKFQ2SJPfFJExYH8L CtHfXKRuEYQbJfZcHRScJPOzpr3GWPYgHQTcVHl1ROCzBGYsEGMfHKipOCDvOJFoTXV8TIKvIGWfEB9T SuEwYRXaFFXpDRVeLLIoTYTwqq7WFEZsQGRwASU8Hm PkADCjDUAyMMzgGJVaHPL6OAA4MTLjPVTdMP7EQhPjQMIpPMAaFrGsNJHrBPKwyv0BAGCyVZIaSaAaRA CyCWMeCPUcFSgzSZMkZHX5RbK2GYDdSAKxCY7WKzMkVGMuLAxjMVipMXWhVOUecb7KYTUyDBRsYQF0Cg QxBBNyTIJfYRsuVDZbHVS8HVU9VHKwEXDjVO3TVsSr CYAxEPx3CSwmIYNaRWDako0UUMBuMZYvSJtsSiSiTPMbVHPvXGnxQIRzQXY0NJSmRXHsIPTfZR7QMtBw QNVbPMOfOKPhPVIhHOQtop5WIIWdOWAnAUVrJNLlNUUwYNEaFLbcOHRkGJVeRAU3FBNwVIQhFS3CVyZy PLFzSILjCpxoAYGqDYOpse2YUWNlLCXmMiB3OYQwIN XoHFFtEOb0sjEwcLNdTJy0IO5CK4JkjmGkNaSUEe0Rg654PGDpZRVtWe0LP3xkFd4eBJZdFLFNGr4HKL a7VMG9MTu2VDS3EYH6AdjvI2HvO0XiNIq2M7D2GoVfUUz+XNm7WaClBHwpMop1TxwiTDFqGQEdZfThAy OyMzE4A7J0TA4sBGKTOi4+BIrifSQdeEngWQDSAiYmHHWeNTlsTFNXGn4E ID Date Data Source [id number] 02/01/2020 11:18:[address] [facility] Name Value Range Interpretation Code Description Data Sudha rce(s) Supporting Document(s) Consultation [facility] GLBJQd5sWtZRNbFr53/CGCckQCAge5XgZUwsLZm5FDqvQVWmR3WlZCS7xP7zMDB0YFlEIyByXrFhUEH6 lbm [file] assistant store leader+SHXtxQTwWRSfXzyGgqIx3pD5ecSKobD93NE0nK1FaxMMS2+gF5iu9MeNY+95ez5d3tEuR3yXUDmJ [file] AgICAgICAgICAgICAgICAgICAgICAgICAgICAgICAgICAgICAgICAgICAgICAgICAgICAgICAgICAgIC AgICAgICAgICAgICAgICAgDQogICAgICAgICAgICAgICAgICAgICAgICAgICAgICAgICAgICAgICAgIC AgICAgICAgICAgICAgICAgICAgICAgICAgICAgICAg ICAgICAgICAgICAgICAgICAgICAgICAgICAgDQogICAgICAgICAgICAgICAgICAgICAgICAgICAgICAg ICAgICAgICAgICAgICAgICAgICAgICAgICAgICAgICAgICAgICAgICAgICAgICAgICAgICAgICAgICAg ICAgICAgICAgDQogICAgICAgICAgICAgICAgICAgIC AgICAgICAgICAgICAgICAgICAgICAgICAgICAgICAgICAgICAgICAgICAgICAgICAgICAgICAgICAgIC AgICAgICAgICAgICAgICAgICAgDQogICAgICAgICAgICAgICAgICAgICAgICAgICAgICAgICAgICAgIC AgICAgICAgICAgICAgICAgICAgICAgICAgICAgICAg ICAgICAgICAgICAgICAgICAgICAgICAgICAgICAgDQogICAgICAgICAgICAgICAgICAgICAgICAgICAg ICAgICAgICAgICAgICAgICAgICAgICAgICAgICAgICAgICAgICAgICAgICAgICAgICAgICAgICAgICAg ICAgICAgICAgICAgDQogICAgICAgICAgICAgICAgIC AgICAgICAgICAgICAgICAgICAgICAgICAgICAgICAgICAgICAgICAgICAgICAgICAgICAgICAgICAgIC AgICAgICAgICAgICAgICAgICAgICAgDQogICAgICAgICAgICAgICAgICAgICAgICAgICAgICAgICAgIC AgICAgICAgICAgICAgICAgICAgICAgICAgICAgICAg ICAgICAgICAgICAgICAgICAgICAgICAgICAgICAgICAgDQogICAgICAgICAgICAgICAgICAgICAgICAg ICAgICAgICAgICAgICAgICAgICAgICAgICAgICAgICAgICAgICAgICAgICAgICAgICAgICAgICAgICAg ICAgICAgICAgICAgICAgDQogICAgICAgICAgICAgIC AgICAgICAgICAgICAgICAgICAgICAgICAgICAgICAgICAgICAgICAgICAgICAgICAgICAgICAgICAgIC SjTRBrRJBuQSNtWFXbRZMvFGVaCVGhIDZgUBl8X6pqRYUrIUOnCI2nJRc5Vs0+EGpWPqCaIPF0xkCfhD 9EAM6lo7QaUZffFQYiw4HxZXy8DR8IOGUsLFtwGD2V DRgqdx7HWPQuBNGekACQy0rwDvNxXYZ4KZZwVzsuPM0AFPKuX5nfdaNhKRPcORKQVQwgRGXGVZelSRLF VWRnFTNsMsBvEbOdWUGwRIEiURSDLXS4PBJsOkSkVNIdPHMiFW2SJZRfS212qqZeBE0UZq5MMoZgDK5b sz3OIFnsBYCfTuyXQnm4TDolLM8FgORikFH9IDRiZR ZMThIyR1pja5QnEMmxTFONGKfyGN7Uf2ZlfGRbDVa+Xl6JUB6ot0XeDAy9RHAoFE0zvh9FALsTCvXxF6 YvyBskSFFpfcL0eBLzSYW1KCGtlNJvTuYPVSXSFOK7ADIxTO8OXCL8ERtjREfkYqBkUXFlBWj9XKDTJW nLBcFaH6Izm3IsWvD0TAReNoMdXYrnQGJoRnW4AW19 iYecCE7FONTyRJScOT00ILZ6HKQwMj1CFk1IJnQwGK9wqf3BNSjzHFUgVktEIut0HFodDC9GjVZeC3Ou qYCfi7sEYzWqH8ONNGQ2OCIpWp4ALEGoJxWoRGUnJAutTA8sTQOhMZHRiIuzarF1MP4BPP1nxkJeQN8R YoLaUd2rMg9YHxClH8WsL9GhXOKoYPNSMWhsWN7LXS kxCG3oLN3Ob7MQoOEprR5oih4ZTCHqPBGlTlazyh3ULrpoG4K5aGfyXSQyCTraFDYQEXyxUZ0LDRLtCC F4IMH7FpTdGONDRcOcC25gZG3OO5Jtx80rYyZ2KULlIyCdVDspPO02eXotifBnbIXqsCcvEE3OFt0+DQ plbmRvYmoNCnhyZWYNCjAgNTANCjAwMDAwMDAwMDAg TyB1PeVdEd9POZYmHEZrIPIrKsMfHOUoFERkBZmnBIVaPYTaJKOrADFxLWDlCE9SIrJbNGCuNYXePJNt AXLaCQAwpl8GAQNbCBKnWZC2AvHrETOqHKSpMBbdIWSiYOJ6QXH2XOZjUSXfHG4ADqYgIBUlYCVvRyLx CSRbLDXqje3XOSQkAZMxYiX6MkCrBIUyECJjPUgoIJ ByWXU0DDz0XBEeGXRwRV0REzQcXRRxVKY8CBftJZTgFXUhkq6HTRPjWSRkTUI5HeUxKTGiKHMxABqhLS MyJTN3LSD9LSYaJZHmNY6TOzKgSZSmXJLzOTRsXFMjFXNdau9XDBBdUIShJIu1BIXjTTFpGECpIBapHM OaUFR2RKg0XXXoSJZwXP8ENsGqRZZbVoOmDVKcITEl AHEqhp6JXQHcQWKhKzO6UjEqXMQbCRIqHBujFNIkJJO8RXG5KMNuQCQtXQ0DNcNnLZCeVcloSiWiIJDf FYDpcg6QOQHuUMPvICF1EGUqYELeMGVvTVpiSLIvLKU4PAF3GKZmMJBzQV9HUvNdRGKvIhziNlCsILQs BWGqgv8KATGyMDGtZVU1HGYuVFHrMGBbZLgwAVKpCV N2EcT1YLLdNZNzOB1KPxMgEZBmJqW4ECPqVMHjCNYnes4FVLSwVMCmQOeeHDUgCYGlDCJbSQtpMSUdDS GpELxvCSVnQPLfRT8POqLiAXDcZUK4QnbrUNWoUNIgow5FMJBrLBW8Dnw1TlDyOWOlPNPwFBrwVUTyIM UfWWQ1XPWkSIOvGQ2WZvDeDDOfPGIkEJYkZFGcAALq tf7ERFJmPPP5TtC4RODcODGqPJBvWZdkYCItDLB9YwO1XKHbVNQnGX6PZbJtZAJpBCZ9HzRrOHQgRUWh nr4KFJFiKZB0OLinDUPoRCNdXHSjUKbfGNOhERH1NiPcKNHtYYXpPG8NFrJiKBJrSRH7BiDyIEAyCPBk ba0IGAKdVXI9MuHdVTHtRSFeKQCbTGfuHDWbVTAhRY d3WNCiDBIbZL4EOfBkXCNmGZYsCExvVVZkWPJtsl8XZADxQHP6KVVxCIQjNEXqGXLjZZrfSDMxTFVkWm W2CEUlPQObGR6TMwVtEQEpVJN3PYEaVFLsROKmxl4PESJoNFI2MmYmLmFbEOZyLCHzUSuhQRTfCWWaQx ZmOUCvUKFhTD5KSdTqMVZnINB4GGYkDCPnPYMwhk3K YZVvZJV4Ldl1QOReNEYnVPKpEIjtMXHxHZU9LsOdOSVsWNAaSS8MGyAjOJWrTOP4OfQfFLSnTOXfhg3J SZHrTIQ1VYU3BvJyPXJaQDIcYAe3fvSnjVCtBMt7TU0EG1UyljRzPWGSYq9Fd575OTN6YKMwQv4FT6ob Uf6bDTTrYZRIKu7EXJk2WrLbMOl5QQQ0YId8DPIfMB MlSwXsInL7S6IxWoP6KiQ+XGgrNBUeBvGxFmgzZunwWACvRGRaGHXdUqVbNCGeDhisNQ6wDWXNXr3+DQ zojKOivQbeXMLZTkW6BPCiXXzdURGNPe7P ID Date Data Source [id number] 02/01/2020 10:09:[address] [facility] Name Value Range Interpretation Code Description Data Sudha rce(s) Supporting Document(s) Consultation [facility] POCMWp3iRjBQHwUl94/MQZbkQJXwi8WrTVxjNPz0MUyeVTFeK2KhJEF0pP2nMWE5DZiMTjTzIoNpRTC7 lbm [file] ICAgICAgICAgICAgICAgICAgICAgICAgICAgICAgIC AgICAgICAgICAgICAgICAgICAgICANCiAgICAgICAgICAgICAgICAgICAgICAgICAgICAgICAgICAgIC AgICAgICAgICAgICAgICAgICAgICAgICAgICAgICAgICAgICAgICAgICAgICAgICAgICAgICAgICAgIC AgICANCiAgICAgICAgICAgICAgICAgICAgICAgICAg ICAgICAgICAgICAgICAgICAgICAgICAgICAgICAgICAgICAgICAgICAgICAgICAgICAgICAgICAgICAg ICAgICAgICAgICAgICANCiAgICAgICAgICAgICAgICAgICAgICAgICAgICAgICAgICAgICAgICAgICAg ICAgICAgICAgICAgICAgICAgICAgICAgICAgICAgIC AgICAgICAgICAgICAgICAgICAgICAgICANCiAgICAgICAgICAgICAgICAgICAgICAgICAgICAgICAgIC AgICAgICAgICAgICAgICAgICAgICAgICAgICAgICAgICAgICAgICAgICAgICAgICAgICAgICAgICAgIC AgICAgICANCiAgICAgICAgICAgICAgICAgICAgICAg ICAgICAgICAgICAgICAgICAgICAgICAgICAgICAgICAgICAgICAgICAgICAgICAgICAgICAgICAgICAg ICAgICAgICAgICAgICAgICANCiAgICAgICAgICAgICAgICAgICAgICAgICAgICAgICAgICAgICAgICAg ICAgICAgICAgICAgICAgICAgICAgICAgICAgICAgIC AgICAgICAgICAgICAgICAgICAgICAgICAgICANCiAgICAgICAgICAgICAgICAgICAgICAgICAgICAgIC AgICAgICAgICAgICAgICAgICAgICAgICAgICAgICAgICAgICAgICAgICAgICAgICAgICAgICAgICAgIC AgICAgICAgICANCiAgICAgICAgICAgICAgICAgICAg ICAgICAgICAgICAgICAgICAgICAgICAgICAgICAgICAgICAgICAgICAgICAgICAgICAgICAgICAgICAg ICAgICAgICAgICAgICAgICAgICANCiAgICAgICAgICAgICAgICAgICAgICAgICAgICAgICAgICAgICAg ICAgICAgICAgICAgICAgICAgICAgICAgICAgICAgIC AgICAgICAgICAgICAgICAgICAgICAgICAgICAgICANCjw/eKTmO7shsBWjgwY8J9vsZx8REq8GPZ8gl0 FaIIYnCZkjxoOcEyoTRtPqUYBiYvvIWwe5XEobSN4XdQBvV4UdU6OdQYtiPY4RYAMbKCOvpKPtVFUuSN WuArJ2CWVaUEvqSP6BmJSaZStxQCEwOAAaSpDaAFVg YT0OXCLnD390ozEcKi9MDz4ZPvYoED0zlz2VMBCzYRImKlaUFbq6KXbeTN8XeXArhLAcRdPlQVTRJxBf D2kgv8YoSFirISFMICasGY2Ex4AzxRQzJBg+Eg6SOV4pi7KsQHqzMrOqJY0dgp3BBRoKZuRkP1TdaCde WGMhirB2vZZyLJB2PQKjo55xbjIJPLDpuLJmARnNG7 ztYRYaXN4fZS5mBMTrSKH6MqD1TCXBHU6WTPXkQAJbdHErCFLsYJIXJM6SJOqrOEY8DQRgrqZvyCEsSM clCW3KOGShyzBdQNCeXMXVIUt+Oa7PIV3hn2MvLPryGWJjBA0ofv0ABVdMMsMyM7J9yHOwG4I8BCmrMp 3IFOSzBRDzMDEtRKHRYGycSI7QRR5uxrW6QT4SpESm BYJfTZOeoPJjPTw3N64fnTAlYInwGG4AAKR+Dulce+Uc3DDROoLLElNIFzHpMwZBDWYdMyT6MkN5AZu4Li M0AiMM12hWxrufFdJNzbYO3FIH9sPOEiQRIJXK7ZxOXmlZ8hjuHkSgBwUHJSNhSwG70hdWHmHLKbUNM8 UUDfDq8ZXWOoX3RoaxHmiRyvgyBeECOwARBZFM2KEX cwrjXdxRYlpIamLQ19zJoeJU8NYb7OJbLxAU8hmg9LiZXiQo4TTDHtII4TIXOfJTFzOGHrRQQ1GFShJh HfKFxwWOYtGTYpBZU5EIJdYQLyQJ1SRuRmTDUiVAi6ATgqKUCjKIIzvp6QPRFiFRYhYFAoVDChUDSkZH MfCBbgHSEaTPJaWSZ6MYWmMSZvAH2CZiYaKMKgKFW6 TrCvHQEtXWEyeb9HYLWhXQWiJgS2WGDgFBScLDPbLOxaCDKjJCM0MNn3IAObSNDhUA5IAjWqRIOwJKId OPejSTChSVJkjr0PHRWuGFJbXaL0HAPeCTFeDNWpZAtgYXHmSHX7CkV2LHGzCDHcXS7AEkNzVRGaIZX4 SeUiVIMqLCBmsp1SZZWlVYCxXpT8RLPiSASaGLDlQO opZNRyQBK6Skr6NABiQXIuTM7XHbGoBSKmWHm7MlIgHLRdRGYlft6MGFYtKFRrQZH5TFGwIZDaLMKrDS gxQLJrCDJ7KrHbPAXxWJBaKE8GBpWoWADiHOl9ETAgMSWbKDEihk2BAXAmPXFbTWctZGGiFVMkSJBdQZ x5syGjrKQwWLi2YG5HJ6JmkcHiQIyPYe5Ft457FOQ5 ZRHgEs0WU7oxCj0zKEBdIWBXMx2QDNy7QdZrU6BjAmFmBSM2XQJiNPPvYwm4IZE0KDcpKWcxQxM+IDxm KuQmJAYtQVL5JtD2CqRtIWXsAmvtUDOeD9LzWCW2Cg7xJOMLZq5+DQpzdGFydHhyZWYNCjEwMTgyDQol CNDXKh5M ID Date Data Source [id number] 02/01/2020 06:32:[address] [facility] Name Value Range Interpretation Code Description Data Sudha rce(s) Supporting Document(s) Leukocytes [#/volume] in Blood by Automated count 12.1 10*3/uL 4-10 [facility] Erythrocytes [#/volume] in Blood by Automated count 4.50 10*6/uL 4.1- 5.3 [facility] Hemoglobin [Mass/volume] in Blood 13.5 g/dL 11.5-15.5 [facility] Hematocrit [Volume Fraction] of Blood by Automated count 40.1 % 3 6-45 [facility] Erythrocyte mean corpuscular volume [Entitic volume] by Auto mated count 89.2 fL 80-96 [facility] Erythrocyte mean corpuscular hemoglobin [Entitic mass] by Automated count 30.1 pg 27-33 [facility] Erythrocyte mean corpuscular hemoglobin concentration [Mass/volume] by Automated count 33.7 g/dL 32.0-36.[facility] width [Ratio] by Automated count 12.8 % 11.5-14.5 [facility] Platelets [#/volume] in Blood by Automated count 318 10*3/uL 150-400 [facility] ID Date Data Source [id number] 02/01/2020 07:04:[address] [facility] Name Value Range Interpretation Code Description Data Sudha rce(s) Supporting Document(s) Bicarbonate [Moles/volume] in Serum 22 mmol/L 22-29 [facility] Chloride [Moles/volume] in Serum or Plasma 100 mmol/L 98-107 [facility] Creatinine [Mass/volume] in Serum or Plasma 0.61 mg/dL 0.50-0.90 [facility] Glucose [Mass/volume] in Serum or Plasma 102 mg/dL 70-140 [facility] Potassium [Moles/volume] in Serum or Plasma 4.0 mmol/L 3.4-5.1 [facility] Sodium [Moles/volume] in Serum or Plasma 138 mmol/L 136-145 [facility] Urea nitrogen [Mass/volume] in Serum or Plasma 10 mg/dL 6-20 [facility] Anion gap 3 in Serum or Plasma 16 mmol/L 8-15 [facility] Osmolality of Serum or Plasma by calculation 285 mosm/kg 275-300 [facility] Creatinine/Urea nitrogen [Mass Ratio] in Serum or Plasma 16 [facility] Calcium [Mass/volume] in Serum or Plasma 9.1 mg/dL 8.6-10.0 [facility] Glomerular filtration rate/1.73 sq M pre dicted among non-blacks [Volume Rate/Area] in Serum or Plasma by Creatinine-based formula (MDRD) >6 0 [facility] Glomerular filtration rate/1.73 sq M pre dicted among blacks [Volume Rate/Area] in Serum or Plasma by Creatinine-based formula (MDRD) >60 [facility] ID Date Data Source [id number] 02/01/2020 07:04:[address] [facility] Name Value Range Interpretation Code Description Data Sudha rce(s) Supporting Document(s) Troponin T.cardiac [Mass/volume] in Serum or Plasma <0.01 [facility] ID Date Data Source [id number] 01/31/2020 05:06:[address] [facility] Name Value Range Interpretation Code Description Data Sudha rce(s) Supporting Document(s) History and Physical [facility] TRBAZb6oYtHBGaQa29/JZEhoBCMsq5DvMCzzVEq8RXjeAEAnP0IlHNE0bF1pJKU0MLqUIsRvNhSvBWD6 lbm [file] e2DDX7MfP3WJS1QyegWlD3HPtbJD3kDEDZMt6+KYtcgLDkgGwkFELYZrU9NCUeEFosWQBGJd1N ID Date Data Source [id number] 01/31/2020 05:24:[address] [facility] Name Value Range Interpretation Code Description Data Sudha rce(s) Supporting Document(s) HIV 1+2 Ab+HIV1 p24 Ag [Presence] in Serum or Plasma by Immu noassay Non Reactive [facility] Negative for HIV-1 p24 antigenand HIV-1/ HIV-2 antibodies. Nolaboratory evidence of HIVinfection. ID Date Data Source [id number] 01/30/2020 02:27:[address] [facility] Name Value Range Interpretation Code Description Data Sudha rce(s) Supporting Document(s) ED Provider Note [facility] ZBZGMt3mJbFAUxRw57/RDOccFFBzb4RlWNowDQa2COceOASzH9HzYVQ2mX9fRJT0VRdHDhJhClOeLMJ7 lbm [file] ID Date Data Source [id number] [facility] Interpretation Code Description Data Sudha rce(s) Supporting Document(s) Troponin I.cardiac [Mass/volume] in Blood 0.00 ng/mL 0.00-0.08 [facility] ID Date Data Source [id number] [facility] Value [facility] Interpretation Code Description Data Sudha rce(s) Supporting Document(s) EKG [facility] ZAGEUw3kRsVWTdTrt1KnCqKgCLVtNC5qfgz4Y6X9gCDwV9KieBVwy8kaV2ZdL3AnKQTlBVQHCN7DcJHa jb2 [file] IFIKCj4+QhH5KTA4bPTzXsc3AXRlGDfeNICRTs== ID Date Data Source [id number] 01/30/2020 03:57:[address] [facility] Name Value Range Interpretation Code Description Data Sudha rce(s) Supporting Document(s) Amphetamine [Presence] in Urine by Screen method Negative [facility] Benzodiazepines [Presence] in Urine by Screen method Negat [facility] Cannabinoids [Presence] in Urine by Screen method Negative [facility] Benzoylecgonine [Presence] [facility] [Presence] in Urine by Screen method Negative [facility] Opiates [Presence] in Urine by Screen method Negative [facility] Oxycodone [Presence] in Urine by Screen method Negative [facility] Fentanyl+Norfentanyl [Presence] in Urine by Screen method Negative [facility] Service comment [facility] Results below the indicated cutoff (ng/m L), are reported as"Negative." Note: for medical purposes only; not valid for legalor employment testing. ID Date Data Source [id number] 01/30/2020 01:29:[address] [facility] XR CHEST FRONTAL ONLY [id number] RESULTI nterpreted by:Arias Leger MDINDICATION: Dyspnea.TECHNIQUE: XR CHEST FRONTAL ONLY [id number], 01/30/2020 12:01 PM, 60 degrees upright.COMPARISON: 12/18/2019.FINDINGS: The examination is limited because of left anterior oblique positioning.The chest wall and mediastinum have not changed and are essentially normal. There is no evidence of pleural disease. The lungs are clear.IMPRESSION: 1. Limited but essentially normal examination.This document has been electronically signed by Arias Leger MD on 01/30/2020 1:27 PM Name Value Range Interpretation Code Description Data Sudha rce(s) Supporting Document(s) ID Date Data Source [id number] 01/30/2020 12:57:[address] [facility] Name Value Range Interpretation Code Description Data Sudha rce(s) Supporting Document(s) [facility] YQZUVt8iBxKKRsVa25/FEDzzZDRtk9AvSVisSWk4DHwqMNOeW9WlIAZ7rD2wMBT8YWfCDyGsHsOcRZS9 [facility] KxIqaWUmUyAYHuTufOKqEyWOclOzkzfVXgBG3GyJE2WKVhH22vIHYwRAAlX6OgNAR4WKU+Fu3ZLFPvnB YyHC1DQwgR6C5zt7r2UC9a0K0AmORADTbC6neXw55gDIvNb7xuXlIMDyRWnGj7X3T9yhGrk36SjoJXxV crhAClbCMWtweeOA17U496rFiYgL1Rn2lHKZqbdGku 91MmHjtbsD//ifXVfK+b1o5HliEPVh+51A/UP31x+0AGs0i2WGx7b+n2lG34QNRHyReUv3ye6Bki5QSm Lamtf0V2cU6fz1L3G6+fvj8+Jeanna/Dj6/OwZO/02WiksgvqZAKbXUUj9Te4HnTXOYf2xmrEfk1PP0cYv [file] IwC8YCK3DCjuXMXKMm1E ID Date Data Source [id number] 01/30/2020 12:39:[address] [facility] Name Value Range Interpretation Code Description Data Sudha rce(s) Supporting Document(s) Consultation [facility] WMAHCm2kOcOIVsUg92/SHIllSIWus3HoEDwuJDw6EGwgWXEaX5SnOTF3uJ0gPHR3GTsHLeKdTaNcUXQ0 lbm [file] LOC2CAH4LyKpEeZhQdE0TVvoTokxRJ6oEKPTCo6+BOvcvWLpwFilLJUOFzYuKEI5EDbyIJHTSh6N ID Date Data Source [id number] 01/30/2020 12:09:[address] [facility] Service Cmnt XXX-Imp : NoneMicroorganism XXX Cult : 2019 nCoV Real-Time RT-PCR: NOT DETECTEDTest performed using [employer] Respiratory Panel. This test is only for use under Food and Drug Administration's Emergency Use Authorization.Additional information is available on the following FDA websites for health care providers and patients. https://www.fda.gov/media/429087/download , https://www.fda.gov/nd mina/418084/downloadPolymerase chain reaction is NEGATIVE for Influenza A H1, H3 and 2009 H1 viruses, Influenza B virus, Respiratory syncytial virus, Human metapneumovirus, Parainfluenza virus 1,2,3 and 4, Adenovirus, Rhinovirus/ Enterovirus, Coronavirus HKU1, NL63, OC43 and 229E, Bordetella pertussis, B. parapertussis, Mycoplasma pneumoniae and Chlamydia pneumoniae. Name Value Range Interpretation Code Description Data Sudha rce(s) Supporting Document(s) ID Date Data Source [id number] 01/30/2020 09:33:00 AM [facility] Service Cmnt XXX-Imp : NoneMicroorganism XXX Cult : 2019 nCoV Real-Time RT-PCR: NOT DETECTEDTest performed using [employer] Respiratory Panel. This test is only for use under Food and Drug Administration's Emergency Use Authorization.Additional information is available on the following FDA websites for health care providers and patients. https://www.fda.gov/media/224594/download , https://www.fda.gov/nd mina/079720/downloadPolymerase chain reaction is NEGATIVE for Influenza A H1, H3 and 2009 H1 viruses, Influenza B virus, Respiratory syncytial virus, Human metapneumovirus, Parainfluenza virus 1,2,3 and 4, Adenovirus, Rhinovirus/ Enterovirus, Coronavirus HKU1, NL63, OC43 and 229E, Bordetella pertussis, B. parapertussis, Mycoplasma pneumoniae and Chlamydia pneumoniae. Name Value Range Interpretation Code Description Data Sudha rce(s) Supporting Document(s) Microorganism identified in Unspecified specimen by [facility] This lab was ordered by [facility] and reported by [facility]. ID Date Data Source [id number] 01/30/2020 10:11:21 AM [facility] Name Value Range Interpretation Code Description Data Sudha rce(s) Supporting Document(s) Leukocytes [#/volume] in Blood by Automated count 7.9 10*3/uL 4-10 [facility] Erythrocytes [#/volume] in Blood by Automated count 4.17 10*6/uL 4.1- 5.3 [facility] Hemoglobin [Mass/volume] in Blood 12.7 g/dL 11.5-15.5 [facility] Hematocrit [Volume Fraction] of Blood by Automated count 37.0 % 3 6-45 [facility] Erythrocyte mean corpuscular volume [Entitic volume] by Auto mated count 88.6 fL 80-96 [facility] Erythrocyte mean corpuscular hemoglobin [Entitic mass] by Automated count 30.3 pg 27-33 [facility] Erythrocyte mean corpuscular hemoglobin concentration [Mass/volume] by Automated count 34.2 g/dL 32.0-36.0 [facility] width [Ratio] by Automated count 13.1 % 11.5-14.5 [facility] Platelets [#/volume] in Blood by Automated count 283 10*3/uL 150-400 [facility] Differential cell count method - Blood [facility] Neutrophils/100 leukocytes in Blood by Automated count 65 % [facility] Lymphocytes/100 leukocytes in Blood by Automated count 28 % [facility] Monocytes/100 leukocytes in Blood by Automated count 6 % [facility] Eosinophils/100 leukocytes in Blood by Automated count 1 % [facility] Basophils/100 leukocytes in Blood by Automated count 0 % [facility] Neutrophils [#/volume] in Blood by Automated count 5.11 10*3/uL 1.8-7 .0 [facility] Lymphocytes [#/volume] in Blood by Automated count 2.24 10*3/uL 1.2-4 .0 [facility] Monocytes [#/volume] in Blood by Automated count 0.47 10*3/uL 0-0.8 [facility] Eosinophils [#/volume] in Blood by Automated count 0.04 10*3/uL 0-0.5 [facility] Basophils [#/volume] in Blood by Automated count 0.02 10*3/uL 0-0.2 [facility] Nucleated erythrocytes/100 leukocytes [Ratio] in Blood by Automated count 0 /100{WBCs} 0-0 [facility] ID Date Data Source [id number] 01/30/2020 10:24:[address] [facility] Name Value Range Interpretation Code Description Data Sudha rce(s) Supporting Document(s) Acetaminophen [Mass/volume] in Serum or Plasma 10.0-30.0 L [facility] ID Date Data Source [id number] 01/30/2020 10:24:01 AM [facility] Value Range Interpretation Code Description Data Sudha rce(s) Supporting Document(s) Bicarbonate [Moles/volume] in Serum 26 mmol/L 22-29 [facility] Chloride [Moles/volume] in Serum or Plasma 102 mmol/L 98-107 [facility] Creatinine [Mass/volume] in Serum or Plasma 0.49 mg/dL 0.50-0.90 L [facility] Glucose [Mass/volume] in Serum or Plasma 91 mg/dL 70-140 [facility] Potassium [Moles/volume] in Serum or Plasma 4.4 mmol/L 3.4-5.1 [facility] Sodium [Moles/volume] in Serum or Plasma 138 mmol/L 136-145 [facility] Urea nitrogen [Mass/volume] in Serum or Plasma 11 mg/dL 6-20 [facility] Anion gap 3 in Serum or Plasma 10 mmol/L 8-15 [facility] Osmolality of Serum or Plasma by calculation 284 mosm/kg 275-300 [facility] Creatinine/Urea nitrogen [Mass Ratio] in Serum or Plasma 22 [facility] Calcium [Mass/volume] in Serum or Plasma 8.7 mg/dL 8.6-10.0 [facility] Glomerular filtration rate/1.73 sq M pre dicted among non-blacks [Volume Rate/Area] in Serum or Plasma by Creatinine-based formula (MDRD) >6 0 [facility] Glomerular filtration rate/1.73 sq M pre dicted among blacks [Volume Rate/Area] in Serum or Plasma by Creatinine-based formula (MDRD) >60 [facility] ID Date Data Source [id number] 01/30/2020 10:24:01 AM [facility] Value Range Interpretation Code Description Data Sudha rce(s) Supporting Document(s) Salicylates [Mass/volume] in Serum or Plasma 1.7 mg/dL 3.0-30.0 [facility] ID Date Data Source [id number] 01/30/2020 02:12:04 PM [facility] Value Range Interpretation Code Description Data Sudha rce(s) Supporting Document(s) Troponin T.cardiac [Mass/volume] in Serum or Plasma <0.01 [facility] ID Date Data Source [id number] 01/30/2020 10:31:[address] [facility] Service Cmnt XXX-Imp : NoneMicroorganism XXX Cult : Test not performed, see COVID-19 PCR order for results. Name Value Range Interpretation Code Description Data Sudha rce(s) Supporting Document(s) ID Date Data Source [id number] 01/29/2020 09:21:[address] [facility] Name Value Range Interpretation Code Description Data Sudha rce(s) Supporting Document(s) ED Provider Note [facility] VSTZSn9wPiQTHmHm60/JHCryOCEcv9TiOSzxWDe2CXreMGDvB2PjCDC4gL1mTSD8DTqJDrYdRxJlSNS9 lbm [file] QCQRGEemTB2HRF9rrqY2TC8HtVTlUKAoQJWikFYkBUc1Z85njTHdZIzsDR5HBDY+Dulce+Eb1YENEkAKFo BJIrElWwZXEMXlEeJ1PoB7RXl5TaD1AjQN50bXjnwv KnDQcwDP8JQB1qDOBgNFRSWO6OnUTdfA6jbpDkLnVeCWRKDeUtJ79wiJPoZKQnMYU0DWGcJr6RDEMwY3 FijqYwnVjespPrJQXkJIZXEK3ZIXlpfjBorTDnhMepLV14iShbXZ3FSx5UWxIvVT5nxg3XwLYrIg5YQN Y1Ss9AEDTxZAZbWQBpLLV8YMIqYfKrVLyiZATuPJXb KYH5NVMhQXNjDM2OTwSgXGMmOtt3RYNlUIGfYCYcru0UKRUjKWM5MWD1JEBoDTNmARXpPGziHZNiCJJd SGO2QTLtMEFjTB1MVgXvYYEkPTJmFtQrUCBhFKZqrh4KGHVoQQOpBxJ8RkJcCVGqACUmFBclKAWxOBJ8 EaY3GXGwWESkXH6UIwZkHMHuZWK0XjWdOPNpVCZwep 2UAQAuDYNgLAj0VvEbKEQtPKVpSCjjJXHdONG9RBf6CAEeURZfMK5TUtMvHCIzBFV6KBkbIXUcQSXoun 6IQNFhIYAoKnA8VZYzWIIxPFKcCJenXRFtQCJ4WwDqEYRrTZWwKV6HPdIbTBImTTG4LTybMUXxVZZupc 4CLPFrZPJlWkVcDBAfYULfABDtSSteETAeWZH7BGW9 NZVcCLCtHL1KHwQgZAVbRsD0KVOuIGDvHCDigr4BPHKoDNIoPSlrMDHbBXSuXIEeJKqiBPYaBKNiPLQv YULbMROcZA8OFhYrZVHaMmSyYcZbJAHyZNCajg2EMZQmGQGoJyUdTyPyYDUqOEBbIPwaULBzLRMoPVHa YZNtPKGrIA8DWlHuZZVvBqE3GBAmOILjQEGgtd5ICQ EdGGTaCNT1TFWxSUDdLJFhFDyrGHLePZM8TJG7SWHhSPXuKS4SQbSjHXPvGyWnKDOdWLVjJKNgyp1DFR GnIXNwUcMaTXJyLTCaETVxOKteKGIsLUI8YnPeLOZqISYhQG3UUxVrICPrFeYyLDWbAWTxFZAqmm7KHQ MlOTHwWgy0SWJyZPVnLYKpXRmlUYCaMSI5GCn2SLJv NZQaSC3LPfKuHSAcGothMFyhSBYtOREyhb4QMGJuNCTwTEO7AcApMQXnWAUqYOksUTVpYHY8TwhkOYTm SHTfJM6KSkAjEXWkZcklKOqpBZUyUAYpjv7XWERpUGM3ING2MRKiNFHiQPSrCSxpIHNdSIXfOkQ2PEJo FEEnHE3AFbGtVQJhVVG1KzMtCGLbXZYeok2GQDXcLN Q7YDOxHvKjXKBdWSOsFItpDUVyZETyBKcrGRXxCZUrJG5ZGqCmKLZkAWBoIjFyOCEkOPCpgm2SUYPhXB Z2NXHnGHOoSZYoMUWeWAg4nwHenRDdAIq7DQ2MO3PxkjFvDZANLr3Jb502PJScZCWwHr5SR4ubVf0pLH ZoIYGUVp6RGBw5LkZnYyTcYfQ6PIP0SFScQQY6Jrb7 CPXjOCUoAgP2RoB+ENc7RYY1BeHhYPgsLDB2WeSxEhK2TPQ8V5LjVdDfAFy4AU3sCEGLOy4+DQpzdGFy bGxgGULLQzCbYsh0VHxpOLXEAe3B ID Date Data Source [id number] 01/28/2020 08:54:[address] [facility] Name Value Range Interpretation Code Description Data Sudha rce(s) Supporting Document(s) Consultation [facility] QNJCNy8rArZEEhLk25/ARIlmRRHsj3XfMAyiVSi1MQceQVIzU1OiMIC0mT8qCAB2EIaNTfQjIkIjCSR7 lbm [file] Y9JeLdFLAuHtb7PJJqLlf+BZ8fVEr+Jh1Sa7EqjeX8aeFfNPrfETNpAE3KYZAGG3PQVq== ID Date Data Source [id number] 01/28/2020 01:07:50 PM EDT [facility] Name Value Range Interpretation Code Description Data Sudha rce(s) Supporting Document(s) LIPASE 44 U/L (65-230) L [facility] ID Date Data Source [id number] 01/28/2020 01:07:50 PM EDT [facility] Name Value Range Interpretation Code Description Data Sudha rce(s) Supporting Document(s) SODIUM 140 mmol/L (136-145) [facility] POTASSIUM 4.1 mmol/L (3.6-5.2) [facility] CHLORIDE 109 mmol/L (100-108) H [facility] CO2 29 mmol/L (22-31) [facility] ANION GAP 2 mmol/L (7-16) L [facility] UREA NITROGEN 9 mg/dL (7-24) [facility] CREATININE 0.52 mg/dL (0.60-1.00) L [facility] BUN/CREAT RATIO 17.3 RATIO (10.0-20.0) [facility] GLUCOSE 84 mg/dL (70-99) [facility] CALCIUM 8.7 mg/dL (8.4-10.2) [facility] GFR >60 ml/min/1.73m2 (>59) [facility] GFR ( AMER) >60 ml/min/1.73m2 (>59) [facility] GFR INTERPRETATION [facility] --NORMAL KIDNEY FUNCTION OR MILD DISEASE - GFR >OR= 60CHRONIC KIDNEY DISEASE - GFR 15 - 59RENAL FAILURE - GFR <15 Est. GFR calculation based on the MDRDstudy equation, which assumes a steadystate for creatinine. Est. GFR should notbe used for medication dosing. ID Date Data Source [id number] 01/28/2020 12:54:30 PM EDT [facility] Name Value Range Interpretation Code Description Data Sudha rce(s) Supporting Document(s) WBC 10.7 10*3/uL (4.1-11.0) [facility] RBC 4.61 10*6/uL (4.00-5.40) [facility] HGB 13.6 g/dL (12.0-16.0) [facility] HCT 41.5 % (36.0-47.0) [facility] MCV 90.0 fL (80.0-95.0) [facility] MCH 29.6 pg (27.0-32.0) [facility] MCHC 32.8 g/dL (32.0-36.0) [facility] RDW 13.3 % (10.5-14.5) [facility] PLT 276 10*3/uL (150-450) [facility] MPV 8.3 fL (7.1-10.7) [facility] NEUT % 66.0 % (35.0-75.0) [facility] LYMPH % 28.1 % (16.0-52.0) [facility] MONO % 5.0 % (0.0-8.0) [facility] EOS % 0.4 % (0.0-5.0) [facility] BASO % 0.5 % (0.0-4.0) [facility] NEUT # 7.0 10*3/uL (1.8-7.7) [facility] LYMPH # 3.0 10*3/uL (1.2-4.8) [facility] MONO # 0.5 10*3/uL (0.0-0.8) [facility] Eosinophils [#/volume] in Blood by Automated count 0.0 10*3/uL (0.0-0 .5) [facility] BASO # 0.1 10*3/uL (0.0-0.2) [facility] ID Date Data Source [id number] 01/28/2020 12:50:38 PM EDT [facility] Name Value Range Interpretation Code Description Data Sudha rce(s) Supporting Document(s) COLOR [facility] APPEARANCE [facility] SPEC GRAV URINE 1.021 (1.003-1.030) [facility] PH URINE 6.0 (5.0-7.5) [facility] LEUK ESTERASE (NEG) [facility] NITRITE URINE (NEG) [facility] PROTEIN URINE (NEG) [facility] GLUCOSE URINE (NEG) [facility] KETONE URINE (NEG) [facility] UROBILINOGEN 0.2 mg/dL (0-1.0) [facility] BILIRUBIN URINE (NEG) [facility] BLOOD/HGB URINE (NEG) [facility] ID Date Data Source [id number] 01/28/2020 12:40:47 PM EDT [facility] Name Value Range Interpretation Code Description Data Sudha rce(s) Supporting Document(s) URN CULTURE HOLD [facility] FOR ADD ON CULTURE ID Date Data Source [id number] 01/26/2020 09:54:[address] [facility] Name Value Range Interpretation Code Description Data Sudha rce(s) Supporting Document(s) ED Provider Note [facility] DHIWFs3zYrABHlEd23/HHGzkCYJge5KzOLbmCIn6OKkyNQEjS0BvXUL4fJ9tXJW8LCgPCsAqCjNcFAIz lbm [file] MDExMyAwMDAwMCBuDQowMDAwMDYwMzEwIDAwMDAwIG 6VWyPhORGpJaQ6CMUnCQDjCYRyos0ZWUEfROR1HOO9VeMnEKLmLYHcECcyVMIzMHOeRkF3KWZiHSRwXE 0GVhTfDAJwLzB6WJAgAIPfTLWanh2BJLVvHFJ1WadaCnRzLBLiMJNoALdwJEUmIZXcRTy2SYAtPHBiJL 6GVwRmVEMwIaWsFPFwLLLhBUGuhl5WSPMfEAB6HVY9 UaHyXPJnTEGvXRycIQYkFRp5NHf9HTTaECIuBW5TNxYqOBRtHjHmGQJkZHEbTIHyly4WVWGeQOJ9GUQq UhJmVPMvMQMjRHsqPIJqWHt1GVc1MDPiEVIyTT4ZOuJeQXMvRzQ2AKPuCHUoYWWsly8ICIJyLMX9WoJ0 LoEpYSYoZKKrBUdrRFGzNXe7EDV7QANeJXHeZI6INx HxXBWrQyd9JZMuPHLxBOAair5GXQHqSJG9TpirCkDfKGEpGXBtDZupZZMtDAu4NBkvZZOxOJKgNL8RNq JwVYSiXfprBaegMSMtELGaad9VIMEgPHZ4IEM9BLXvNAJcVWXmJUxeISMjBKo0LpS5CWUlVSHvET4LWa HjXYWjMjn9SGsiPQEmCAJhsq1SXUKzINB2YFl6FCAp AVYcKRMhOPlwXZZpRIx4VYT4WDVxXRDjJO5KMaAnQJDcJppkOVtrLFRlQLOafj4LWZUdIUT8JCTqCvQq LGMiIINtRFw1jjHacXMwOPi9PX2OO2LgsnWsJeVJSm2Uu599HBj0JUXaYk7QL3lwPt0fMBImLYFCDd3V LMt6CUA4WDo0OmrdDpzwTkE7KUW0JuTqEKEyWTmdXY M1YWE+PNcgCFX6XsQ1DFVuWAKjSyghIRJzAZP6MuVuHEHpXeMsDR9tAMOVPe0+DQpzdGFydHhyZWYNCj d1CgNvKDtiABCITx0V ID Date Data Source [id number] 01/26/2020 09:12:[address] [facility] Name Value Range Interpretation Code Description Data Sudha rce(s) Supporting Document(s) ED Provider Note [facility] ZRAVRx7yYiNWBcAs85/LBUclKOIxa0VsUUkuJBg3WYylWHFaS1UbWZZ1sP1uRTT1GNnVFzXfCsLrKURk lbm [file] Rufino+5KQUCUxs658HRvt/7gTPBf/+oo0GOqbzaLPv8Rkj0YrxwOQR+CjaPSWkikSIsofhAJNIYUGLUTu BgFt8VK12TdHtMUhUEAIHfpq6nVSw+31KhLJsHWvP+ 3m/saBTAHgPkxc3WJpgLiGNUXRSKW90K8NfbEsLZbJUInaBB0oa3tOwKdkNIBiyevAifaEUhVWoOUwzV KZ10B2WVfSv4+8W5AOsT6L0xdh03foH3yeldCXV5eyna4UQ6+0S/lQyNUzHUAtMsyIsUg25iVmobr2XO IZpq/jnpcgwraFYkhVwmWTKtWumB5CoKBDwjeUwwXR dnokZiZ8QlRsfRRBQ4LBswShXU18zKZWKTwKefcaeLmhT9xPQYT5vIxEl+S+ZmDu/2W/q+m1KiOfDXYG os41OfkDEDCKQcxkFQtSS7R9CB8xdV5Jup5Q1OA3XojxssFg8F6G7ozWSQvClzlALvzyZDTceQUDtsUx vD7N9D1afp2CmtlJkiy+r/VNVE7W7bOOI2jIURfbMZ ADVfIkyppePo/Y1v8tTAgnuq2G1G9cNsQOkOQfu14LNt7sRPZ71cYZGA6jaYyfL8VLPjPI2KZCen2hlQ zKaRNA+VMUnU0NTvz9bVzYmo+kUZKSgOuQOSJk/EHF91SP4bz2hnXzhVgtfjTOnk18JQfm+3G28aB4bv 9ikVBf1AZ/5lo1zQDL4HtP6Yxl475h5CXCrgCqz5ty sL1Zasjjjosz/5TZIIFNnkXfnO5vGkbXsraW+u5Iy9OqUzObOU4sOgUsOz7MMUTv3JahQCLfrCCai+4U jb8ncA8PIkKwWZepS+WhS9Jf1D2/FIc7JH0DDkE3+dPwMV4A9hzZMPvsL1zRKBlGa6nUPxgdLHdMIFiQ c5Zm3S/yDinH4nkaC3i3LshxQ+DZl6rnhCxfRqwiCZ JgJQ7ZHjOg1WSOTxEErOiByAyuWBJ88a0ssKBk8+BUZXwfuFqUgQxcUI6p6/CHILD [employer]ELOPMENT [employer]+TGtLiK3NR40HBR3Z [file] GkS1ISkgSYFQQk0Z ID Date Data Source [id number] 01/25/2020 02:45:[address] [facility] Name Value Range Interpretation Code Description Data Sudha rce(s) Supporting Document(s) Progress Note [facility] BIVKEr9aDxMCLkKs94/VWEdoMUUma9RkDQbwGKq9OLisUPRzR4JvAAI3dN6lYXW7BAvVTeFaNkAkONAc lbm [file] [facility]//2/504iC657ttdVfU5xa49mRANA0UJQXM96UQ [file] AgICAgICAgICAgICAgICAgICAgICAgICAgICAgICAgICAgICAgICAgICAgICAgICAgICAgICAgICAgIC ANCiAgICAgICAgICAgICAgICAgICAgICAgICAgICAg ICAgICAgICAgICAgICAgICAgICAgICAgICAgICAgICAgICAgICAgICAgICAgICAgICAgICAgICAgICAg ICAgICAgICAgICANCiAgICAgICAgICAgICAgICAgICAgICAgICAgICAgICAgICAgICAgICAgICAgICAg ICAgICAgICAgICAgICAgICAgICAgICAgICAgICAgIC AgICAgICAgICAgICAgICAgICAgICANCiAgICAgICAgICAgICAgICAgICAgICAgICAgICAgICAgICAgIC AgICAgICAgICAgICAgICAgICAgICAgICAgICAgICAgICAgICAgICAgICAgICAgICAgICAgICAgICAgIC AgICANCiAgICAgICAgICAgICAgICAgICAgICAgICAg ICAgICAgICAgICAgICAgICAgICAgICAgICAgICAgICAgICAgICAgICAgICAgICAgICAgICAgICAgICAg ICAgICAgICAgICAgICANCiAgICAgICAgICAgICAgICAgICAgICAgICAgICAgICAgICAgICAgICAgICAg ICAgICAgICAgICAgICAgICAgICAgICAgICAgICAgIC AgICAgICAgICAgICAgICAgICAgICAgICANCiAgICAgICAgICAgICAgICAgICAgICAgICAgICAgICAgIC AgICAgICAgICAgICAgICAgICAgICAgICAgICAgICAgICAgICAgICAgICAgICAgICAgICAgICAgICAgIC AgICAgICANCiAgICAgICAgICAgICAgICAgICAgICAg ICAgICAgICAgICAgICAgICAgICAgICAgICAgICAgICAgICAgICAgICAgICAgICAgICAgICAgICAgICAg ICAgICAgICAgICAgICAgICANCiAgICAgICAgICAgICAgICAgICAgICAgICAgICAgICAgICAgICAgICAg ICAgICAgICAgICAgICAgICAgICAgICAgICAgICAgIC AgICAgICAgICAgICAgICAgICAgICAgICAgICANCiAgICAgICAgICAgICAgICAgICAgICAgICAgICAgIC AgICAgICAgICAgICAgICAgICAgICAgICAgICAgICAgICAgICAgICAgICAgICAgICAgICAgICAgICAgIC AgICAgICAgICANCjw/bHCkS1ynkTFggiJ8Z3oeRt9R Ff9ELV4bu6JkIVObBXhgjyCxTliNWpNdUYZqZedPUbr3YWotPD2BcTXtH1AdE4AzEFabFX5IJVGlGMTq xYZdIXYkBOAdWsG6TSUkOGyaEV3IyVJiGKhcVSLzCHSpXM8RCOTfM339jrPlQE1XPx5ILlXmLA8bli3X GZxeIJSvAudBSyu0AOxgIH4LkIApdVWmTCCzTBPFSw GuF3cpp9WcFpWsLSUGNOcfUT9Lx2JtjAIuMMy+Dg4LWQ9my4SxREcjLZMlER4ots0BWPyWAyJyB7IzwW tqFXQra1ihNPDwZG3ciDJfAGY4KGxulaImKUMmVGUyxVueHMWrlSEztVBzTVpRW7lnOOJdKQ5iQZ2uSO UeSOMgQwW6ILBHPU0VAVNzWNJuqLPcPSGwRHCWDD6X CVjaTVO5ELDvmlKimGZaVOgeQR2FWHDbgcUiNNuoCEOBCAk+Af3HYM6ii1KaPOqtPEFfHS4jir3PGPzH ElWyT4T8yBSxN4Y7GBxyPg6HAVOgHUNhNAaiUBUHOWtlAV5NNS0zbvM1JE1SoRVlKAVoGTZzhLUjXRx2 R98fgTFbCHvrIU1DTKQ+Dulce+Kj2NBUBiNIIlHRFqSh VwJCAZUlIfD2EmE9QFw1JvS1GnUU70iOmetfBlDOzgIS6BSP1xCFHpCOKNUS4NhNXzdN6hmaHwYHAeST CKPmKwJ62ldWYcZVZeFOT5BRXiWw4KHNKhT5HgayDjqFufcoEuBBKxJXZSYC4CFXzljnPlvSWqjFylWS 29jAzyOP6IBx0JQdImAT5kli9MiQCuWw7DJHCoBz6F FBCaIASwHCSoBWL0KXGlLcQaAJobFETxWUSyNUS1BKLzHMTwME1ESfBsMQZjTBskYMAnMMQiUVBcut9H JELkVVHtQVAsWZMtPNNnMADySMsyDYXzCCUqTNY4IPZeLKUdLU1BAuAuCQVbKBUuVPtyBUKgHXXhym9F MDAwMDAwMjQyMyAwMDAwMCBuDQowMDAwMDAzMzgyID RkLYViLM9CSgDkBHCnXYL0JvyvYCFjEMGmqu2TQTWhWCEhWgj8FJCkKVQpYQIhJJefDHWlKAB1RqX9AW GeRZAaYF1QClJlUWDrBCZ6RLpvYBPyRHNmmo2FHTCbQUHiVIZtUMPoQCJrWUNuEQdlGWQbEKW9VGKcJJ YkLACjAB1OEyOuDSUnDVG0AzXwSAVmMEHtut6IJJLj IMKaUuw1YSVyFLPqCDDdBGzrQCKfZYY7JqA5QJPuECRkTQ1SFfPuESNpHEcbMhImMQVyKOZcmr2KWHNo QHDgNjp7VLVbMHEjMKCbMTbbPUAdWGL3UcJ5IDZmRXWxBF2TBsNsRWLnNAjtGWIaMHMvFMEvuk8WXTWu FNLdUPFkFCVpPKGkXZOqLGa1eaEjeRKzUXu7ST4AV6 QpliMfYdWAOw6Um146GXCrWLDmFk5TT9cjYt4uNAXdCTDQZw4RQVm0HtzhCXM1YEfnWVU9DsCnGDHtHT r8OMxeDUR3CHI4Tar+BQdeLAO3RXu4CCJjAGh2EfNjFxMlYTAzHVC2BbA0UMYvWE0tMGMNEr9+DQpzdG VrgGjyUTZVUxF7AsnwSKkuQAAYVe1R ID Date Data Source [id number] 01/24/2020 06:36:[address] [facility] Name Value Range Interpretation Code Description Data Sudha rce(s) Supporting Document(s) ED Provider Note [facility] ANSZHd3nOzUIQqTw44/ZMFbvJMFwa8JbKPseXCj9GRonJCPvJ5CrZMN4tL4oLPV7UMhTRlNuHnIhPZQt lbm [file] n8e5+lOp3W5Frfi3WK5oiez8CZPAdRGK3dxbBb+Aleksander HrZVktaoFl4sgn0cxr7tGt+bPu/R0aZm/Nmxv2AF/RFqoo26e5cRftcDNO4UhcVdq8mIxZAgDimY/SNH JHJFlZPX6Zchlsf+I3ZsiB6YVFA5f3t0yQTa7BRo0xbQWGNuK7gNUOGfqgOjzjzkcf9tDWLAxwiPM3hf JtbjVA+BgnLeKt+fY6Q/Hw+Ath6473RPfonTaac4J5 nw3bq/nYhlqH+EMkJGul5XDu8Essz+4/DcXSG2uMfkGP68Qt2Hs/si4STy78v114WOY4JrC3I0NlG7lA 2T6aX0jDZAlxeaVlv+W+omUuWO12n9Fz+yw/E3ll14ni3625xajXUe1ro1dZKa1/G9EPDtcls/xL9+6c Tjkdz46z/mQ0F5aMcqghz0JslwZILKuE2ifC8uec2+ l6YYrwdQ0RsdEtzICjlALQksXHbuFviO0gF/+yZV2OQrXhl5G1SfGlua9Q3ZXKih3bSGnYm9uJgfoD2w 8VLny/Qe44SRED5p29TIfiBKi/N0A2WG6kDa+higcJrA8DOBpVc6JJx6dlJFBn3470tfZYm/nd2fn4sc phoenix+U6+/9N2/J+2y3/gpY7R8qT8j/Kgdzf5kXiHsiDK +DwDmKbtFrB9ADJtEkO9S/sd3M/PNAvel6ieKNIpvbt+Yl2a8/dVUfgMQK0tuN2qezQeVWj4UNO7Lkso 6EV425rt4c4TL3mr1P3t2/b6HO/KuQydP08MfC2gJeSjri8HT+gYuQi1dgjkL5T8p03+f7sjD8qrOV6x 7G8hhNLA+br1W+Rh8NGJ3v+R85VZLAqjLyd8TPb9sS 0qz6NG1zK5iMwB5+ZP3dWHk9xihvT1kdK26Y45jjbpRVk8kFxd6xJ+akr5AKshcttBic6G2PCguu7Tcn hQbAy2aNeU4vWhc5CYurerL96sq4N5U7o0Vm+Z6ltAqlusmGhd26u/hu/QKHwNVwpYh2wNgH33kk1o39 dT+0uzoMc/IJ+6+2T8fdfXhyTlL7bHPWgslPNmFvFY S2R3o4FelYTKmwTAZZ6nIVJbVS68yOiLitv4Lk4p2pKo6R1HpJQNmOtB07daJd+FfvIT+AFNh/8NUANr dxLjNk7clCMdiw04qlfnP8xmG8iqzSasz4Mv2Yeka3cHEG7gf3ezgjSkfUeGcLB+MdLtstfvvK/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 [file] AwMzIxNyAwMDAwMCBuDQowMDAwMDAzNDIxIDAwMDAw GD3QZxBmMUPiYFO7FADsAKMlIHTowu5YNQInEGRdONa0BdPbMNTuNDPrDOqbZRIpOTI2TgAdCIXkPPDp KA8CAtFdZPZeBVz0MaZdAWWoOIMwfw6SFUVpTKIkVxZkSxQpKYGzSIByAEtxQYWbPIJuDCV5MCSwSNFq TL3VTkShFQJpDTIpXazcXNMzEMDxte0ZLTBkDFJyKc K0FXKpJLUuGECbBQddJJCqTKT3JCVuTGGtYRTcDT7JFcKmNWFoNByxMXrpDLJuIIEimv7WZEGaTVCeYh K9OhUhLBOyUIXsBTjgBKCmXNZoQyuzASTuBPSfJM4LZaOzMTElHkC8OKJeCZBeRTFaza9OFYMqHJErIP n2VHUqERCrOJBiEChoUWGySLE4NDA7TYJkUHWiTT9V NoXvAULkPwxlQEIcXRUuXLOuqz0IBWXxGZZlXCQ2JlYpWWVnATHcPXuaQLBqXOPrPTjoRZKzKZQmFD3P GiPmZBBdGwJ7ZBEpTSFxVXXrfd6IRLYoKAMbByslEOChPSXjMKNjNYwuFJDcLEI9QWJ0NUSzVKUmGS4R BvOdPNYoNyQ6LpRnQBUfEOOrrw8CKQMbNHLwLeraLj TvWUHwMNXxIXklMEXbMFU5WBT3BWXtKCDyNX8ZRcPtONOfXhkkUMSqBPCbWFAjhs5AXTLwLLTyZJN2IB TzQZSlXVLlKXhyANDiMVX1CilbVAAoNHJkYJ4DZzHuDUQuLlz6QuIqDDLnGILmzc4VFARcOSP2ZBh4Wz JqXSLkEAYlHZopUAXdKUOaTMA7PQAcDDAqJS3ROeXi DBKhMDAyKxCaHJCqWYQxvo0NWVKbNUR7ZMMtYaVdGPUsPFThHOheUZPuBPHlXqL0CQTeLSCaPE9ZBoVy MNLbWCA2OQXlVQHoRLWusi7RCIAaPGH9LIe5LxPgAORoSOEbQVhxAJAyRTYrTAR2WPKjELArBV3TDvVn CTBxBLU7QjTiNQHnJEAidt9GNFYpXMP2Hpa4KBHpWX DjSQQiRKxaGLYsVTK9JTK1VWUdPBKwZJ1SUfYpMJJjJDJaKrPsKRWuKTSybp4EHMIjNQA6ODXxZQBzHF CxZGJzKGviKVHiDNU0BGw2GMVePZNtMY6WXtDnUTByZOA9LKFrQHNjEVJsed6ZeZXjgDodpo6ICSaBPk 5BbJigHXDdRMjiCb0kzSA9OIDkGPHHHd7TqkReLDOg WMLPQQbsMLEhGFTjCRRlFEUwSdC2FFQnJUY8UtH5FDhgPpF4FSwuXVS5JrO2SCFvEuQ9YHD6MGjiFEDg ZTRmNjRlOWJiNTcxOWJlNjU+GT9xXTd+Js2Qq1GqptW8xtLoZSr5EOk6YU6QJFVHT2XEUp== ID Date Data Source [id number] 01/24/2020 10:28:[address] [facility] Name Value Range Interpretation Code Description Data Sudha rce(s) Supporting Document(s) Choriogonadotropin.beta subunit free [Units/volume] in Serum or Plasm a <5 [facility] (NOTE)Levels between 5 and 25 [IU]/L may indicate earlypregnancy and should be repeated after 48 hours. ID Date Data Source [id number] 01/22/2020 04:19:[address] [facility] Name Value Range Interpretation Code Description Data Sudha rce(s) Supporting Document(s) [facility] DIKSMw7tPzVUSyEz57/DHYouTZLet7ByTJkwGHb5XXnsJOSnT2IgUIV1zF4mZNK3NOiXImIcBiNvJQO5 lbm [file] XgTHRnFaCR1VLIm= ID Date Data Source [id number] 01/23/2020 01:01:34 PM [facility] Service Cmnt XXX-Imp : NoneMicroorganism XXX Cult : 2019 nCoV Real-Time RT-PCR: NOT DETECTEDTest performed using the Apprenda COVID-19 MDx Assay. This test is only for use under the Food and Drug Administration's Emergency Use Authorization.Additional information is available on the following FDA websites for health care providers and patients. https://www.fda.gov/media/047846/download , https://www .fda.gov/media/130853/download Name Value Range Interpretation Code Description Data Sudha rce(s) Supporting Document(s) ID Date Data Source [id number] 01/22/2020 01:02:00 PM [facility] Service Cmnt XXX-Imp : NoneMicroorganism XXX Cult : 2019 nCoV Real-Time RT-PCR: NOT DETECTEDTest performed using the Apprenda COVID-19 MDx Assay. This test is only for use under the Food and Drug Administration's Emergency Use Authorization.Additional information is available on the following FDA websites for health care providers and patients. https://www.fda.gov/media/034953/download , https://www .fda.gov/media/842088/download Name Value Range Interpretation Code Description Data [facility] rce(s) Supporting Document(s) Microorganism identified in Unspecified specimen by [facility] This lab was ordered by [facility] and reported by [facility]. ID Date Data Source [id number] 01/21/2020 06:44:03 PM [facility] CT HEAD WITHOUT CONTRAST 11021LONTC RESU LTInterpreted by:Zohaib Chapman MBBSCLINICAL INDICATION: Headache post trauma.TECHNIQUE: Contiguous axial CT images of the head were acquired from the base of the skull to the vertex without intravenous contrast administration. Images were viewed in brain, subdural and bone windows. Automated dose lowering techniques and/or adjustment according to patient size were utilized for this exam.COMPARISON: CT head dated 11/14/2019 FINDINGS: There is no evidence of acute intracranial hemorrhage or large territorial infarct. There is no evidence of edema or midline shift.The ventricles and cerebral sulci are normal. There are no extra axial fluid collections.Basal cisterns and foramen magnum are patent.The imaged paranasal sinuses and mastoid air cells are clear. Calvaria are intact. Scalp soft tissues are unremarkable.The imaged portions of orbits are grossly normal.IMPRESSION: No acute intracranial hemorrhage, evidence of acute territorial infarction, or other acute intracranial disease process. This document has been electronically signed by José Manuel Melendez MD on 01/21/2020 6:41 PM Name Value Range Interpretation Code Description Data Sudha rce(s) Supporting Document(s) ID Date Data Source [id number] 01/21/2020 04:11:[address] [facility] Name Value Range Interpretation Code Description Data Sudha rce(s) Supporting Document(s) [facility] VZPBXs5bLxLSMdBph1VzVmNqUCUaKK3zieu9U1S6pMLbR6MtmPZnk0ezU3HhW4WnPVRmKLJEHO0OyFIn jb2 [file] gambling dealer/3Q7+J/vs+4/cNv2/0lTqqccaeiyC9zk/rN/D1Rp7XXwBQR3/MAwLxfM7d+rf75Fa2i/B+4feh7/t8 3ge/+q8XQ2nxu1hC1QrDRfam8dUAB5t3Ud3n+H6giUe0ljaF9f0d/FmY7Mw5l1K+uzAfLbTntU/7Wfu8 3xivgl/rqfdf6br9Zt54G9ve5UalN3XghHrFr5Bvyw jJWvzbX03IjQm/3ei/G/xg1N660A9E3/P89a+CqA3lEANwn+f68kzDk11/R2Pqp7GvCh3cLG0Hu0qfie AzotenF1GO6Ci7ril11V/+HZ186QY+42QrZ/5t4FdN/GhFjo74x0aKUv41ozh4/DzlRC6Um63E7AZmv0 XJIYAr07GfYf535JrKSQauoSo+n2l7+JH0/tOrsT6H 0dVfWY//aeNA37BuGmCj3QmlawOfshGNL812RjXHa18nDyQDojD7QPW/tg1+ld8o+NX7HN+35/Pz3jOE urxrtwinfr+L+NXK5/VozF5qrGbnrrP+9T7j/JgZyW73u6tkeO9c1Q4u2wdfGd/iU9zF2Qce55grDpi7 RPF4PRa2dim/O/NRBE6/9Wn92L+d+YctgeZdv5Bb6/ 6UP4LA8KtL+xeo10B4LuV52Ql43N7l9/2sFyJU+s2nn/VRBEp/zxXvD5+DLJq2at7k/Hxfxv3R1zpnGz E0a0c04C8qZ4/xK9mnn/VvE7/SdQbiV+/mtQ9Pm84w4F/W0V7wcn23wq/Wh8Lmzu9/wBGGV7UmQ4ts+P 7BXc8vCzMPvI95vc1+HVMPBd3TJCP1Mr+DX+U44Gf+ vXaxwWteRSb0smxc4z5faoghtwLlgn0vQR2yz8dL+Pid653+E+VQ1XjJF4BxlqIIK/ddfgcSg4bAFm7j u6veP/aGPa7Gi+0a1YauSPr55d78/+o2EgS1Kb/YHvxKZ/kq7xv1RoCIr55uHbQr3wzdM39/+uaYHPzq zd9P/Gw1GF2FZnH/bd6Lz1ZQ0cu8+lzYb3ql3d0Zzz G/Wl9c8/sdF76v+LZgbdJNu7kAv/K49Un5I4Y2t5u+znqhgV+36M9xj7hnEhtc8wtBq4UW9h5A/ivlKf +Vytpnvd/2We83+a/yN2f92/pif3278v2C+473He/Rpzh4QP09rhyefO+8n/t0Xl9kUwzy8M5wQY0kvr Sxx7X7kzzGVvcM/ityC47Fa4ll/5Ok1kdp60H0EJ4d eH9oeV18/Fe9OPI/94sDhIgt17rR+b5d/Istt8Mr+a/i2Y4/J8KT3/yEMk65X+vfiE3+nuR2ANVC/NbZ 8sGT1SBkLi+DvjaQv+O94/fz+449+ZWeF/Awq37gf6onp4s657+v0Lee+jacqueline/6ouu7Gv5rl6Ke+3drzv pM5746O+h2/6qikYjT7/ZK/2rxRMz08zgR29w/Ys/1 WMLV3+n9G7Bm9O2q8VJTO4H+/hnXuzWj5B/n82mfaX3e67B1T4OR5/6Gtzfx3fky1+0dtZ7/kW45s08f /ANlc7oc97r/pGN0g0tB/4/eEbvZ/1bxe/yuczXvV+xufez/jcO/qv/Px36iFMMVE3qqk+8pLLB4jl6T 7jPdrzQHuG/9gSs1Hdn+opL0Qz2mru2P4y/VkvRBhx 0e1XMi3kUlML78DrbzU8C/lA37FQ/+Bn8wYv9Ac+5+5n/mqjn7FX5k7s5qSQ+qjLf/U+f7vB3pC/aorf WF5w1ei/LJ+Rz/FfdUf/lf+qZezwaVd++GR3jFe+UP+F/OP7jnw+segDH5cff2cwkrg/Zgrefda/rei5 cmhjZdO7pw25XkVkfopc9B5KglDmtZU4eMOcZK16rL ppI24GLb/l5t/s9o/bsavvhqg4072+D3/uE/1X+4PriwrO/ceu/UF9F+9AltFF5kx5M3ety1aBtsVUqA z6NUSI4/daZ/0bscDnGe/rltlUt4d021+JKODzjPdoz+usB/vaeI/+i/1Nel6Dfi2PmqtYgis3czndE1 xH/93nypx88vH5K/k48jnr/D09bs6uho/2vBfyP/66 vo//dXFu08B+4MD+4MD+4Chn/u8aD4HkNowM3UFjLP0fVqljo/6zHI2fpmMz7f06X4t957VsW/kv5L+R xt4ecq6DZ/HygjuHbP9ivKq2kiml0nyfVo9711LLw1gy7D2gg/HNy8OO/3mIXylESvxKoULiV/k+9FUU eNfDvb16WEcl6z+fn09P0rw3Qt6pN/bxilHP+miIX6 bN5lzKisW/yuez/h3iV/a55R2ccSEfwYi5W+vBovdaD+p9rH/rB7hdnG/P++SMkM2959BhomZe+dhT/O u8NlVRq0o3EU1q/ZQb/Op9Hng/3D1l9wVb+scpGR2AaBk8Ytyp8X9V1Qd9j/UodChfS4pXol5wCx37+t whPMQE2yumPb77y1B//qvMV45l/4JfjY7+29F/+8T7 tsfA3avvm//2s78/xK/gC2k2Xy1EcRrl+PlFtDyc4M2Pwgr0Ojt8Fa2d0E0s9K5ld/F+4v1Z/79AiGk0 Yx5f4JuV/ga1Jq9jYjm8ydet5NjQtHTbl4yapfjilq/I5/Cr4fi+Oj00zTvV+NXwhfcLvz/rheEYn+fx znggG3I25Bnxf9qZiwJggxinUtlCv7BddWJSSGmUx5 sRV/tXb+OS1ykvX5OxVr1niPwk+Hl2U9pL1cMVUEHJ/Gn0Cbs2e57tgN11w6aLMN7pdfwjDzoBf9OBQF o7i+qwYj+k0oTfIit/QfrpB9Qvebh//DaTDPCb9fkoDISiOl+Y9J++s51U3P8jo1y+zwgDx7ifP5Q+03 d7/eJn//jHFz67+/iXtj38Za2/DwCWw0CQ/g1j+s16 ip0mh8J//Ql4jiFXQk7nE3104d/Pu/F9lmLPlwybO09pV8+qNrpRaEhE7gTVle07Gdlk+3t2S0Dx/jw0 na08ktgjF6KD3c9HDTuJhim3+0slepYqs4voNCgalOaHuoXD4ApNnhMkmt/2J6jH3Uk8o41DMdOquvkU MVq3rqkovjcxTHSvj0x4Oy9TX+i6zcfgJhQk7q9k+4 Dsj7e2OvXlQpw9D/bDLyzPatM4F6Fnxs+fAtZzow55ayAl4AXSrTAtbIIXFX5sXlDWRgXzZwnyAFVy7/ U6SomU78x4sX2lxh4Pzt9bM610KnM2i/aT7i3uE68F1I0Feyby8uly0aGZ18dMTv0e5nquuQ/Ns8cR/p cguLH3Ar3wK/YkiioA1Rk1zwjus9rtDSUb/f37y4++ Dmbisc179qlBRtQbrMI2/o2/S8/P+jbNMhuTT9On+JWHYVuVs1sCaeEyVRoQskE8X1q8XUm0L9j08TgY ebD5IgbqLxto6edN4n+UxHgfL8q+li83rwzEAO42X6eL65+H/YJc/xpF5B/7cnjzPreBfL2Dl8rF8+e9 7uZZ4cY+Drew/fUf+veFTP07931sNnox1dFo+DSRfaO [file] OQolJUVPRg== ID Date Data Source [id number] 01/21/2020 02:35:[address] [facility] Name Value Range Interpretation Code Description Data Sudha rce(s) Supporting Document(s) Consultation [facility] KLNNZf7aJnYHXcAq01/TBLqsWIWox4VnLCijHIb9BZvcTYEjD6KaZQU8oR2nLQC5FZxJGvFdJhBnVNA0 lbm [file] V8JwE3BIQ5U3OmVQyvKZG4OyrmZqIpRE0ZWl0YStH2EGU7rZEiNr8XNQE3Ey5DIRUVE9CXVe== ID Date Data Source [id number] 01/21/2020 02:45:[address] [facility] Name Value Range Interpretation Code Description Data Sudha rce(s) Supporting Document(s) Consultation [facility] JRHUJu1yOiNJItLk25/VYIxxHCJft7DhTTmvRLy6NOzpHTNcK2ObYKD0zA6aTSJ8RGgTBmNqBmObZUV4 lbm [file] ysMYAAIku8PkJUBsMxGQ2CDEu= ID Date Data Source [id number] 01/21/2020 01:02:[address] [facility] Name Value Range Interpretation Code Description Data Sudha rce(s) Supporting Document(s) ED Provider Note [facility] HDBGCk9xFsMIOkXb06/UJBdlTFKqx3CdMOjrVLk7WAipFMHyQ0DeEFF1qI6fXQV5RYbFGgVmJrFwOXK3 lbm UaKiaCWsRyTQIwBirBEnFbRKphThebvCYyLI2SyBY9ZCLrP64iNGXnIIFiF9QuTQL0XHW+Nl4NIINhrT NmAP0PVkmI7Ngxg8e6Jd2fOE4E5rjRlR9CtrBr8dvGWgo1ZghWkKX5GO4NJCtbN0YcRMm6/mlwopin7T 3DgOxK9scTRZTDtd7ADFBTvnx6K+cZhmW4Qe/3+BgY CZH73zkxhHvLkz2BkL/MZFXPAoEHvCQaZ6q+GgH8mKc97xLMGIE8dwjqBbKr2FHBKaFze0Fqb6e5uh0R l+LilfF2QfkW2cZX9pXEBXP9kb8q8hwf1Ci3Bcr5izSylN7dJJirIODdvnT5PBvwAHLbjGKQA1iNxhN8 MBH9ti8QWtDHnjYY83YWGdpo+KxhQ1V3oSlMoGOby5 iSlSM1Cq5R+lKkIfkVIgkkvQJ26rhzdmBkda6s7FFKGOkXMxqNxljeMz0xPMUTGlk7plNvFDdUHjQEAP 6BGa5X2f65PrtBMGVJ1TAc86W2HFnmMhBQouGEDnED3ycTGa+aGFdmSb6lGzQjcRUfcaEUbpSrWCM9nI jJtmIiIymCmGEsWqfEoTBv2EIn9xURd9T44wSzCM4f sb8aeJf7icnK6DHQJul+F0hPCajeOKyaErUUAGWdHmFKohQedWYqzJLbZRFDmArsBR4NskVBuBnwYBbY WdhoHuOauTwbpg6nL6lTjtOL9LuRtytDfylCwSmrJVjEvTjoVtQi0Ylvby0oMR0ylhoxq9AlLv8uZdrK /nzPDdYYjm+ixSxKJg/iNJrGkziJhuUvVFIPbyrUOE [file] V2CWKqG7T1RDNdX1Y+OJ1cZVi+Xz3Jf8LmplJ7yiYvYRjaZQvvNw6PCIRVT0ZTMk== ID Date Data Source [id number] 12/23/2019 10:34:[address] [facility] Name Value Range Interpretation Code Description Data Sudha rce(s) Supporting Document(s) ED Provider Note [facility] YTJWVz0gIpGHWvKa83/HYBosGSWcw7UpVWmgKXt9DNfwDBTtQ2VgWJM3cA5lMGW5QLcQWnDrNeIsIcBc lbm VfDhaWQnYpPDQqUniSQzZwEUvqWdikvNNjHL1KxRM9PCWtS75rQIJzOUWuS6KhUYA6AXh+Wi3SKAGbrY LwJF3WSxsP2D6gi1gWAe1wXN/SXFvKVnR9RNPRsIAKo7br3C0oM48p+eNEpZ4OUZj5XNr06dWC2mfvk5 uIurgDBYZcLWl96/uIjBDVn9/WRSsxckAB953ZSGwf cif+/txo6lh1k27ks0xHrkW4Dricuqd/arW8F89MhvB4V+RYaQb4f4suKeGZa7gUBlt9+Rodriguez/etbv1Tro [file] OguzOcrw/dFAiGQbKTYDPLPY18Oulw9ZQQBRTTEMj6EZSlitYhXretW/SHREDDING SPECIALIST/KQZzIK3GKMqNrov6a3nCM [file] MjQyNCAwMDAwMCBuDQowMDAwMDEyNjMwIDAwMDAwIG 4KQlKlVBQpJKX6OguwPYCtHYXqwl5PLGHsHOOcWTj8BoBpCDHcZNAaOUgnIWUjMDR6HeCrQTJqIHUmSD 5CPePkLJPvJLd8CIgxHBSjDBKjjd7VUKBiVAUfZMLrWAWwBLBkAMOnEXavCNSzRGDsObIoFNXfYSUxAI 5WGhLkMEXyIaG4UaTjOOSmZKKpga3DUKYkGRTuMIFn ZjNcHMGyJZZaFXtmTMZoMJS8SmB2RDHmYAVkRP8WUuGbATToQbb4UsIbSMSrMAHpse1DWDGqNGDhYAc2 EiZwOUUoAARkWTjyTBJeMUQfPaFcJRGnSNRxKU3CAmGqLBMbXqVyBUJaGWAgUAUdff5KVFWqSMZjEqIt EFPeGXBrTITsPHsmCHTkKEJ1XaY1PERfOUKjPD5ZRd BgNBBeYuY5TkIoUMNzPBXtfg1QKYGuFYGmENL9QCVfMPMtURMjWDesAGToDFG6GOOnCJGxPTYvPM5FYs TzUQPhEBFsCzGtRCUoHFLsya2IIKPnECZ1IYVtTsTdBTImOCBuMWyjNJJiSGSeAme2SNSzCTMdGK6YDs BvDZPxDSI8SUZyOCWiZXDdkv1DFQSvVBJ3WbI6ErLr AAYuCSSrXTgfYYLnEHWmSrM1FLLxBSVsPY3UVhYzDXEjCXI5MaedFWWwBWNxxs8HNLVlJIJ1SKFfXDZq LTExRMKhXJgaFJKhICO8XIMwVNOkTZCrOP5DUsKaGLTeSMV8NCxhITFsSOMjdm4HIGNmTAQ4BWyrXiEk BKWiQBCfDMkmYROgWOC4FJU3JZHlEHTxAF0FNkSgZH YvKMEsXNPhFLXdZLSfte0OYLRqYYX0FaX0StFdSKElFQFlNNlzVRCtSEG5JWX1XBCgNLZlPT9DDzZmEG EpGVg3RTlxLFOhINMczd0GHOYqGYH7FXTaTVMeRDDjMFOrLYblKWWjIDV9KPSpFCZoHEUgST1WQqWnOR PoLTf7YpRoVJOgDJWhxp4UDFCsETM0FMc3JyFxJTMf WBKrRBxnGVJmALI8TVP3LXEtRXGlRS5DLkCmGRWnYaFuZqKiFTFeLVEuyx1ROBLnDBU1QVSsFTZiUZLl GVDiBCdtKQUjVDPkDXk9DRFgHBRbGO7HViVkBHOeVjD4IcskOEIeJVWcmw3YWVFjEFB4GUh1MDUlKVWp HVFzOXv7baYohDBiTGg4ZD2ZZ4DsdySwXOyPGx3Ej6 47PDT6DVBqFq0PO1shQw6iDXHrCFEJZm2KIHt1W8EfVmKzQmIgZYGoQRHgKqgoH0RyA2I8HLX9IRXxAx Q+JXbwHUTqHCPvTKK3OHHuBJP2OoZdKHFzNOZdHuN3HaTtVO4tHYZMYs5+DQpzdGFydHhyZWYNCjYxMD f6DCntCWTQNt4K ID Date Data Source [id number] 12/20/2019 06:35:30 PM [facility] Value Range Interpretation Code Description Data Sudha rce(s) Supporting Document(s) [facility] 3/ANq/8JB5p/sz+García+1+Xvi+1eVs+Kv3Yso3YI48o [file] 3zVhIzP60XyFqoaorDfdfgXEEAIZQNpundUxgrsJIMEOWWfkusBhcqeLXIOXBVxvhxHkzwpOHGIFHDdy igAooooAKKKKACiiigAooooAKKKKACiiigDm/E/wB+ 2/4F/McNiblOhfyuh6cYamziVqmry27/IHv4B6jk+cSJKPkdAq8Oo8yB8jTONsAJCTJLN1A+Cn/Id1H/ AK9h/lEsVhs4XG4ixeje/gQUUUVRuFeTfG//AFOi/Wb/ANkooqZbGNf+Buz0hblekxsgekeM4J+Cn/Id 1H/r2H/fUk0vhdoD8We6m4QRCNBKmrPx3an/ANTov1 m/4erveXrJXa8Ajs5in06YRiiXHJLXRPLRGzf/yHdR/hLiRf5CfAd7oedvI2QtYf2ZEWLERmtTd8aa/w BTov1m/wDZKKKmWxjX/cs6zbdROoAGPfxypG3C+Cn/ACHdR/69h/6YV8jvynBSj2PQ+QFTUCZE3I1Z7k /9Tov1m/8AZKKKmWxjX/wp5nonVUvOQXcjnetMOJvm /wAh3Uf+vYf+sRmn6KPwOf1gW+UVRWUTN4L2D9a/GUZ2W8Pl/KDNWv8BHo1Cep6lndCFpBRIwlupZ1I+ Cn/Id1H/AK9h/bUiFfx7WF6wlvtk/gQUUUVRuFa/vf6E8XU/APXI/wAxRRUvYxr/IRWA1nNGYWjuZVXI QAUUUUAFFFFABRRRQAUUUUAFFFFABRRRQAUUUUAFFF FABRRRQAUUUUAFFFFABRRRQAUUUUAFFFFABRRRQB//0F8NYV1lx2AhOBYbXTkdflSsZxnUSzF7KYJtp8 WhWGo4HH1XqYQzB89gdnC5cF2EZMdnJmvoa5KtZZIsTtwllPFdL2VzMNAjEWBna2OiD5xzesi9zHCbPA I+Oe2Az0RtNYWiLOt3dM6XVVqOXSYGv4E/eAJ1fZmp X2yFaXsZcOy0KUflqHvzAsa/i7YfqhOSnaatlykDlDMUZQYFuGMCQZHbArikuxwTIBBHeAMmdHXgZr0z IIkzpMn6XgUBhUtaDHQ2ngi5EqRURM+UD2GT595ZlONtvYqyvD3sB1EfSnyPmo7mrd+QxDoBfbamjK23 TgaIxIH8rJfnuJUBpr4Jo2ppZUub5ZOQq5+1WKeFfO lyxhp3Ptw/olpZ7StcM8P4OibUDpWPNqWtXZH9tgBgtA9APR6zc1ZeSJqaPNIrLZ3oys2FDCwhOURsDG VjZXIo/d8QURUzFBHCxpTqAYNVupShGNJKkkIqSH5UJvGkBTgXCcFyLDWOBhHwCOJUFDBoWLOXRIOeYJ euP0FzOEA6w3Cb/r0AKRGmHPIPloSeMMTTrbOkLBEC wsHhUD3HVnRpIOnKLaRsBNZEKvDgHIBOPXVgGQRQNYFuCTcbK2DyLJD6mC3gLVM0VCvQAkXaZrZhIxW3 TwCcQzKiZRPuET2bIAU5PUhGUfIxYmOrFjW0SuZuUlHqJNJ+Fo4RHC6so0NjONjlFPObUR7uhd9VLuOz FAHaJL9QOW2ub8TyHEcyXDEvVC5cjq7EMxXcMODwQO 6FHX4db1XnSNtfQHElRP7dkr3KQHsvRIktQE3PCxYfV2QqihLsNfRpO3nrFGH7XBIdNH6Od064CNKmPJ DTE7qxVo6pNOkzJPKBA4nZJzdXMZbfZQTOPAWLBpN5XdZePrJ6RriGClalAfQBTLAVGc67GWZ5IHU6Ph T4EaVPVIM4HEUaTkR1BjD2KUJESuEkJVS+XSAvRmls mNQvP3FmZHYyHXDhd0PgR2sxscf7lQC9Ug6+YDnifHEuOW3ZWdftM1NSrf//GYGkIAMDiKqFUFvBFONh DDU1L8yoKjCFSF5obaGqQEJBEyKKSeZYKBODX0WhonIULLdboH6Ijmn8SiThQGLumuSeFDsrCKjr4ZBB 2na4RJxqsqRmxNYkKI1ZGkMlRG0rae7GbMUhRq6CFY PgLm8KSVClAWUzKLBeXZV2JGIeCMMvYBtjGNOpSPEsGGR2ADLcGUWkQB1HOlXbSIHoTEGiGkBxAOLfOM Yaoe9KBVErBSZkWAU0TFPdBXZvOJOkWFnmPOHeGEAsUXQkRDXoTCJcDF7KKsWyNXYpDUG1DtOvBKQjKL Yrsq6LFIPwUHMaUQeuHbSlQOHbHOSsZWazJXJzFNUz BLI0WGVcRBWdOJ7TShJeLQKdYWNvUoakCXUiGKIwho0MPPKuKGGuFHF7KBAiKDOvQBXiQTslTLFyPJYu DVHaHCY5YGL0GSHVVyMcFAJqBSNlCDRgDoX8GjJgOi2LTGPfOPSqDDYmMuH8PVQcBRJaCDgwFDEhBBDo WOQ5XTX9OKW0PTRYIiHzRAKgIHIwGUAiVsH2XjWiVh 9LKIZeQGZaLUXzKiE4PJBsQXEoJBoaREDyULReZIC7RDA2PEX0LMZUFmWsNANzRQQaKIApJaQ5PgReIm 4XUXAsIYSqUWV6LlNbFYBxSFEzOFqbQHSyIkVdAgu3MYMfDUIiOE7UPfVaOPOvDHWkSiGbDDJtFFHlai 5KDJFjYMDtASH1AsGwJIIkERMeNXn2iuIpwEHtYSj1 KN6YxPaiGYEzG3Unc7UbUJCbGAYgOE9jijFzQFLzPVYlEPIbVWA4AREVRvH8IRBsGVSJBZDJBYPIYTCU AxNzCwJLK1EmTjjKGBmvWMNZXRQDUpE9VsPeEmP3OohMAxjmRkMUGXXBNi5lNS5+DQpzdGFydHhyZWYN CqBrSUJqNR5DXKQRY4GSAvilNHGLZyIjIT3HuWKgsL xoma4SQVjlG9r4CJUoBg2Az924MFIdXPQKC0wzCr8pPMoqDPUTV1yUUqgIXYvnPVSLFIXOYcK8ZiGtGt J9DbnKQvimXeQNAFZKSa03KCG0GAS9QuR2GeDPTBH4OWIeIwY1PbV8OKXCWfKiDQI+XSAvUHJldiAyMT R9YiieSASqSjT4kLXjZNUrKQI+Uk2Aa6RcnvF6plZqYYviAPRwBoLPElEwDE5K ID Date Data Source [id number] 12/20/2019 05:02:00 PM EDT [address] [address] HEALTH INFORMATION MANAGEMENT ED/UC Physician Report : [id number] Signed Patient: Amy Carranza Acct:[id number] Unit : [id number] : 1995 Arrival Date: 12/20/19 Age/Sex: 24 / F Arrival Time: 1635 Copies to: Harriet Marie DO General Adult HPI/ROS General Chief Complaint: Physical Examination Stated Complaint: Dizziness/ Mh Eval Stated Complaint: Dizziness/ Mh Eval Source: Patient and I have reviewed available Ancillary/nursing staff documentation Mode of arrival: Ambulatory Limitations: Reports No limitations History of Present Illness Initial Comments: This patient was at the [facility] office an hour ago and she felt lightheaded and littlebit dizzy. She was standing at the time. Symptoms only last about 5 minutes. She did pass out andshe was not presyncopal. She has not been weaker ill with fever, vomiting, diarrhea, cough or chestpain. She did not describe the dizziness as a spinning type dizziness. She feels fine now. The office told her to come over here to get checked. She is not currently on her menstrual cycle and she does not believe she has anemia. Related Data Home Medications Medication Instructions Recorded escitalopram oxalate [Lexapro] 10 mg PO DIRECTED 08/15/19 Allergies Penicillins Allergy (Verified 12/20/19 16:52) Review of Systems Review of Systems All systems: Reviewed and negative except as stated in HPI. General: Denies Fever and Chills Cardiac: Denies Chest pain and Palpitations Respiratory: Denies Cough and Shortness of Breath GI: Denies Pain, Nausea, Vomiting and Diarrhea : Denies Frequency Neuro: Reports Dizziness (Earlier this afternoon-symptoms have resolved. See HPI); Denies Numbness, Tingling and Weakness Skin: Denies Itching and Rash Social History History of Smoking/Tobacco Use: Never Smoker Alcohol use: Reports None Drug use: Reports None Occupation: denies Lives with: Reports Family PMH/PSH PMH/PSH Medical History No pertinent past medical history (Acute) Surgical History No pertinent past surgical history (Acute Surgical) Family History Other Patient denies significant medical history Physical Exam Physical Exam General appearance: Alert and In no apparent distress Head Head Exam: Atraumatic and Normcephalic Eye Eye Exam: EOMI, Conjunctiva normal and DANNIELLE Cardiac Cardiac: Present: Regular rate and rhythm Murmur: Present: None Heart Sounds: Present: S1 and S2; Absent: Gallops and Rubs Lung/Chest Lung/Chest Exam: Clear and Normal Exchange Abdomen Abdominal Exam: Soft, Nondistended and Nontender Neuro Neuro Normal: Alert, Oriented x 3, Sensory normal and Strength 5/5 all extremities Psych Psych Normal: Normal Affect Skin Skin exam: Dry, Intact, Adwolf and Warm Course Course Course Narrative: She was dizzy a local office earlier this afternoon. Symptoms only lasted 5 minutes. She is asymptomatic now and has normal vital signs. Her neuro exam is normal. Cardiac exam is normal. She is alert sitting up in bed. Her EKG shows normal sinus rhythm without acute changes. Is unknown exactly why she was briefly dizzy but it does not sound like she had attack of vertigo she was not presyncopal. Is not felt that she needs any blood work done as she has not had any heavy menstrual cycles or recent vomiting or diarrhea. Hemoglobin was 13.9 in August of this year. She is stable for discharge. Vital Signs Vital signs: Vital Signs 12/20/19 16:49 Temperature 97.6 F Pulse Rate 87 Respiratory Rate 16 Blood Pressure 131/87 O2 Sat by Pulse Oximetry 100 Medical Decision Making/CCT EKG Interpretation Complete If EKG was done has it been read?: Yes (Normal sinus rhythm, heart rate 81. Normal ST segments. Flat T waves in V2 only. No STEMI or ectopy.) Discharge Plan Disposition Clinical Impression: Dizziness of unknown cause Provider stated Dispo: Discharged Condition: Stable Instructions: Dizziness (ED) Prescriptions: No Action escitalopram oxalate [Lexapro] 10 mg tablet 10 mg PO DIRECTED RF: 0 Referrals: Harriet Marie DO [Primary Care Provider] - As Needed Patient agreeable to discharge: Patient/Guardian understands and is agreeable to discharge plan Provider in triage note Vital Signs Vital Signs: I O (Last 24 Hours) 12/18/19 12/19/19 12/20/19 23:59 23:59 23:59 Other: Weight 100 kg Vital Signs (Last 8 Hours) Temp Pulse Resp BP Pulse Ox 12/20/19 16:49 97.6 F 87 16 131/87 100 Date/Time <<Signature on File>> Initializing User: Mikel Baptiste MD 12/20/19 1702 Signed by: Mikel Baptiste MD 12/21/19 0714 Name Value Range Interpretation Code Description Data Sudha rce(s) Supporting Document(s) ID Date Data Source [id number] 12/19/2019 07:43:[address] [facility] Name Value Range Interpretation Code Description Data Sudha rce(s) Supporting Document(s) [facility] QXFUTh9yKbUPSnLsj9DdRsTsSCInXQ9unuh3K9O4jHHaM2RigFIfv7tdP5BeK5UaIDBoXHOITQ5LuEBf jb2 [file] D1uPPeE358K//1O0WbmtT6Up66nG1Be2895oYx77Wh ++6ZdTd80rWOXQAix6B40S6l7dHk1BcYfzEyd5NoaxW9jn9nx42iw0zoLWwmq2ScYuggTvjwDoO1tpCx imApLdYiSgCuvwLpkrPxbvZApwCdAOu0lJR8I1V11DZrbGN/QofosNqLGmtDuoH8xbgm4ocQVl4t/zz/ RZ6uLkS8NJB67Rzt/sz/oTUgBZH97z6vPKIvJdpUF6 Ith7UFjaG+u1Rn/AzIcpY3BOmzMN2I9+uXrUaMmw2PsMG0DcF6kHCuoJcsZBknqMGZW+7DvrtcG+TbaD IGtqjb6JhAiqv946QxKLzDXyOpVlun0Eq+rDA4RjQVuoxjWZgj9hLijYnS4vv5+9466g0DMddfDavCK2 Ug/ggx5YL/RZytD0kN546008VSotNo4VGw5o0608t8 995+UWRah51UgE6iEhj4ytP+W+rcVQSMALE4cDAzIs5fxLgsl8aJoh4d3lW7v1sgBIxg2bveAm5jztGl l1i1Oq5h8CDrz4f3Nbws6FBw/KfX/c+oDya6VfD4dn9TbXJaw8/SU0L/HvOkp0Pb7CN00YGtHbWu13eh eU+54hHeW+1xrx4g3u1Oqvjnv0H+W+71vu3m2/EcpJ MnSHZZpuxMhcaCcA5n5dklIEyz4/RSiTZ9Km+lLkcY5vbpUAdY3hHXXdruENYGWQbe+ZXajc9+djZTxR 1nOocuc3NT+UG5yII/SQsNpdZRXmDjxm6Ds4ak04hXuYsDlm6dkWAZorhnBGeTThNBqhOGyOxGZTxotK pnoJlA1phHHDM4R3QnUwpVJGIKABsSaptH8+RnFyEE IPoCFKuNuaJNSYNDCZLjMziOBgpLcYRq0g2ZvJgyLyThz04D2XDVj0/BCeQd05VrR9Ox2Oz6Tuiv2rfe SIcDzgyxvxdABaoknhQ2fcM+OJ+qaG/OxLdPGJrVWewOKVdkSLmRuIdw2vUDHeyXIkfP89mPtGHJ4qxL NedMTARgWOWb22i+Lkvq/fUNyp75/c9z/relationship manager/U9/38 rzLfz/N22lJihC+q53j/dupPGb4p4xa3ta782f/vytb+jrO2SLc4s+466CjZIN2/B+qJ3++m7PT++92U nN53/ZncjnoG+r/v3fsz5hrd1rzw+VF5E5vG7S8UTwa6g+C3glI7kk0Bd3wzO3+oel0ex75uUHioq9ms eX3LO/W5ojhh7c9r4q8/tKhM8g62k+kdh79cZx97bo yukng54530+uBg3K31brp3R6WZEd1n2SSslbS45Fwzxzkql/cq8eqWPoOmzfu/1H+ez/finZszOoT3X9 zkhnYpmAK6qus69LSZ3M94v/n864+yQH9I/paQtjsgnsjOyefLM06rmXso/YyCz7L0Uez6Ibn/YccOQ9 9Xz/q++JdxaBp40srk8d53UCccrPE/Eah/f1/1Ofrp etx3P2QxEM7G/V/2KiT1IiA2+nJl8YZy4Aj6f/s8H3/VIW+vpz+9ND89vaci+S3Zu8Z4tEpkbo58v50z tYwci8O8W07+2D941F+4lDAVl5z3heU534r//aIxeiH54pkJ7mjfq7s2Zq2AKW8CnzWgFz0iG80r9p2e 8+htTNS/Cp5Zshr92opo/YnvO+0ASkTsp3JlDZni6Y 9Cp6IeVnYb6Ku50cH2g+8Dvw/4Pr6aq7JkuY7Ds83AlzpuAspuGhfyNdiuyLWw1uhQWj1jm4+EGG1m70 qom6hTlV9S/j4Hfg/14tqswe78mnMmJsM6e3bEJPkjVop7mwW+e98LtpGmVDUH623xv/z0JybbRXpFC8 71qyt9iLVHtn1cAMPNW+9OHc/xuDPHs/71eKd68g7r T5+/34RvOlsA5+68W54nH/0839fL+y8fkmz7C/7Soh7S6tY0xtYDwgume+/+zstuZ/51O/SdJ293n7+/ diTieVuVI2GrgHzbX/VZ+CrfH0c/egyL48Y3G6+a327aYXo+9cINvuPY3eF+vwMcT72xE2rD/rjL5ca5 foYSjEoBh5C/eNL9+LjIwqNKqPwAMdHf4zd191d834 FbP/7Z6xm/CnsJp6Cs6Ku8N/hK/RS+It5MVbWaW005wfg76R1qpkb3/RS+avw2vGfhuYLZB+9S6HKzu3 HTvt/fF+pZrx/IIv0AROuySloAp71x/Q850aG06gbEom11SlHvmku9sb+/65aAja+i2ySKX7UAjnjxaE vRWh47gi/Mo+uVkFYb5jc85pCq2/03Bytr+k/ev7nW 5iHyhDNjTUxa20nFeaH/8o5o+y5L5r9L9iy93pnCZn/3M91AU0w9N97/1aJ+b6g/fu1qXP/s5MisdNYC C4DoBDg62C1h/SXL7wW3q8i2HlF32y+yZBP05USfUC5utw+61WLA25/868JXmZ+X5amhrgJrIOkH+1kf eYe/Er7KOs/868JXGi+Jv9GLcr2f0q44f/tVWv66eD bGm4KB5KY+bwLU2ZQ9fgVqKC/NxUP5dzyQXoT52D/5SPgqfw+834/egK8c+MoHvq/wVfYN/jyFmmXl3H 7ni6pi238Fn44eH2f3628BkaUHwfM9py5UQ8fiRqWIwG/VXwVxGU6S18sFYfOgI20Bracflxc7QF4zpU wbqoo129M/Bw3wmF01pf5JemarZwAUxnm+yvlxxfEn G1/fhY5dJpzztTz1Ifr+7w7HYGm/lt99BbqCT3hadnJY+XzW+8Fr7Q8Ruqe7/Hg5b18uFnvMthAiq3Ew /188ilR2s/XvTrh+y/Zy6jzr/Wc02PkyVpbdFUKm/H3h/wUi99qEM3xhE9D/An0dvLM6k/d59tP/ja+y zxtfvc/4vaGeLW/E75a1lc4xp7DHv2HV1L/IK3yVz/ Foo132ntfriYp+jiy7ZaE1+yompw0XFQeGN5STwa/zRRW+UrvCV/b9D1sxlqnt9GTbRe2w0Y1J31LBaq Pvn/Td2mMigy//SS0pP7e425jLY75eDfhnuC+J89gJn5c3iWrs4oe1DrqljUh8IUgG+hS+yudezjsd/T n+qtaB/hx/wuZq78FWjyr2bH1pB+q09k07zqg+lb8f u4GUc7r1/Syz3t72j7jM7iQkM+e4jXD5tzM5d+8dvw/8PlD/WQ/WduLPNeNX+q424tm2qrfu2SS6U+w5 PgladgzBGaXrAi1zoiDc/li5Zl5h2nU2by/lxzUZkJh10s5+4zdO/LkqfiUZEb+qGb/av/dF90i3dIci 4le14/t22HM/20YzOq7f/cSfq/TT7KbIdh84FMoCR3 +xojZwg7NZMnix1nw+Q96+UD++23J8bzhzy4Owo4rkzWRtU+q61nk6Uy0AuGBoJ0By2fR9SBuVcMWmC/ hKuhpnvV/CBRlZ5M/Uv/R80Q3Xl3BttL8Npmj+qhPfd+BtqKRs31e9CSZcU9h+6986IS/wVQW+qomv1F bH+wPtDtQ/8ftEPzF+rodriguez/0DHxVga/wvr5Xtko6V/y5 rrO/VHRmLs8y3MS2nc57lH99KnR7Ph890dm6GxQv2T6PY8hi6FX600tkr+XMv62c+yiPN36yH/+oCV/l Y7679xbJetzG5+/e3HLV2Yoj/amdXy0gPl7nxNjvjNa8XxJ8Oef2lGMfKmZcOscxagZFtBJzbwEdRWbt umZn/WE764ViOt2xoK/YsD/YsD/YsD/T5EeKtg1x6g C/ahm/lix7VsC50TUL/k/0Z6H/Z33U/KwHmx9/5kzkGgb2R3jb2Y3Opsp5JsysvWX6J10Rs3AbE+2e9W CkdFqt1OlWAjVSs/Y1iwmH2+iI67bP5OntbvokJ64ihuy74/0mfKX+7VBiIgKoFkK5RixkVIjpmnPLQ4 2zgbEbl6/B8hkc4MuydSW75NpVsH6UoC36/68SjYeu 3Ol4czFatKl+6h5OteL/mCiL9J2w/u8Wm73slTYx9TgVqvw/+ZiT5QibmsAxdNe5FtV0sxhsG1p/vzeV qL6HjN9eaIX9kI+q+FUm/F05LI18q9/hK/bJ7HeL1Fdtn2Xjs+4z2spyG08dlZ3JldgpTCsQTqAqQy+3 oNbK5Lk8iI1WOz4edhIS5oekDqgcuEvXw84hR54w+B 8yJyvQgAt0XL+wYX+u6KBz9C50qt57/H7wRhO+re7uz8FuQeKTE3YZI8pM+gwU5Mc1DH+oZ6L+iXYX+n nwZAO+gkIoo4j2twacGowkqsavYH2X/cbI7ymXS84G6m/1FO7p4SAoEl4FPpg9YGM21w6k/7axUD/m34 n5V/gqn89+i8f0cuG+pU86MLrKN1UQYJ/mX+Er9V/4 MhTq6JH947Id/eCIdC11ksFx4sh/T/x+1vttnvV+myf+6ED3k9EQz/J0uUwefrxDLyzstpAR+0346nnG +o31X8PAbBxkIPN5Dl8BsRl+CdyZFF9c/6gJX8k/N17lcMK0TrXwmord8KsTo0hqh1Rssp6ylkw8qFje HZBTXIsPKv8HzcH+g6+iBH4/15ZBs35abE33c4KamR tgfzDKsecoZ/oQZhPGOl857IdSQiPwsKtYK+GrfP/Rd3G0Iqu7jcu/MMr7v4GLxH/Czno/7PjnyPNXeu 8fZIOT2nyP+yPO8/HPAXwVia/y+fzuB0+Gn/pktL2DeQdM/qGcY95TN6i7nWH+1v3P9Xd+LfoRwc15Ud 4Cw3h1C/8I3RaLZKBWCov/H/bh5Z4N8C1L0rjC+CqA inCbf4O+YNSDJyPxleo8/yyuRj6MAw+3yb56oqBiRAOJz2h2GD7984APk23xNuf0oactIR59JMT7fB+r ns+4aMc/B+JX0Y5/jnbW+xW0So6r15SsgYiVen619sdECf4AvVNS2I18KcrB2eXfIIswXB/CV/n7wc8B qKDFl12aOxCJecAb59lUeeQwehMEhE7vaIcN+CrirB feio86Ikn0xez6P9HjELm/NLQ/tEI7cNuZq/mN6Cc+MnJMzs07Ve57/T0cE6T3UqASN2Cy5JTKE2U89r 6ZUmocltz7vgk022fmAAk+0t8qZtB87SotBlFGp3Mf+J49qJkitX+Gp34zPqxwdPweEV71hjX4wyHfzY 5f7MlM2TOmUBgCuk3oI74gokdm19a0qD2rmjd7XBo/ A+MX8atA/CqErzTXzLN/MBDuL86Mm11o/Gf1elDINxvWn7WS4gneRSpNY7/5TGnWd4SQ/GcKqTMq5dTO 9ddeddnZ24mF+F1n/muXepN2pH+e52PnC/33Nqebtb6c+Zk9P89ZqL/Wg7HO+ihw/ioW/NXCfLRgzwvj d2l/dwwFwHLv5gpl6Ta5kgr+vxNk3+r5wvLg3Aly5m zYt56K+hveP/EROm6212aaH48jh3SN2Ez0oDlhI9/l83y/Dk2S1n7O7vc8T6+BmzfBd4m4OPf5T20xC6 nJsH/+FmlsL48e2Eh2dDy4lsf/2m260QJ/9rg8RgeYb+dWuj7G616Rxy4HgZW407uWhzgczS2/+tcdvf +Lb+jDBIzm0cNy2o++0ev+/Yev/ubn8rxAnllnmk2h B35GpZ69EveMWahujGn+ipNVp00qZmuzaVY2e/EEonhrz2f1g/VCx/x64efxjN/7Nmal2pZnfz+yzu2f 59nem57J8960anRB/fjnXs/3e2MmG9rm2zcHNdB84ht2Gqsnnm3DcQ0Ip81n07Itr8ya9E2c88L46/xV x/mrXs9+Sq8D/Lv320s3YK/1zL+0EW0uM7tiO0ehC/ Z2zm/85ku2bP+0jwXrzGL53fG21LbBGB4etjkZn+f8c2+Uu199K4UIIl8jpkGz7X9kMu7Zmu+e1mE0Ex mBrzrwVQe+5lvs0uMsI/B9I/T26Ly04a+o/+z/6pU5KT7XX/Cl8HXb6/ga4idzh/cz/3bhq/m33Ki5dQ 961lf3z/hGx/mrjvNXvQfqOfNv7/HFphQ3yba15xdZ X2354eeU66CpGr+lj7P+1YnaFLiVBenAe3t1Js1ypbeupZSdNQHkeH4/b3+i9EgMw7EjkaPT+4jhecbv Hb93/A4Zd2kjrUslltMbyr/Oxz6tUpz953Bw84S/GFvOo5BIsfq7xC088c4YQVaYlkq4d/xszjDO2dxS fo+tX9Os7n4R2ud+R7yv2yH+5tz7v0Pkxst6hwNrJq sn97sGV+4S0DyLH/VZ2oqjvfml3mF3Wto/u+P8VV+B3zvex/joJg9Grv/2GsmCjwIu1frk79Gg4SdYS4 8mtqWXcwlLOJkhhSOPS1Sh/zzKiW+McvzVKA2/H/44bX8YQg3nxAS+rOKFxa20HoS+RH8mfj/xnFHO+Z yB8+0D+VGNQY4b9y/+edjZPxrCV+q/txBAwCbeZ42/ /nkIX+PeWqH5qGliFtOU+xnIv6aaG88/8faB+NXwM/8OP+vfofhVPuP7+ln/IcuCXoGvaoFomW8wffWT hgf6c/a7h5/00oRp5w+87QaK8S42lbOJdt5q4/N0hp1I436QO/s+j0OQE+LWKI5bQttD52+wj32fR/7Z 9b1j9/p75gHr86q/ir07wJ6/zMe6m54NUS6hYJV0o5 [file] eWxMsdch+vp revenue cycle+5x1m5es4qd+OVuuU/q5se6mjU5lyTWI7529jbr2pdYipaBjmbF877l+3fNumBdMNYZzI [file] zjN59+9kU9q0XfK2I5j0ot2s06btoGi+2b73/+6ePH X/ax055606qfs5zc+7Yff/rxf/y89ofKg/nz06vsfj204gjdJ966/uPVjD/9/Pd//+sed90fjbd3Z7w+ +NWn71+F+ernb7/19lMbX75/+uevPn/zw/cfX3/69st//VNGn3dco/nm8y9e+X3/w3hk7907+53541h+ 2N1ba23wqpscQp8/cw35S72309ooK+1TOp565mxqJ/ iwi4f6Tkl4fDzCyaC2ee+Dxx5Y5Jl44tbW9555+ecfP/1Rsb/75bef/myYW538ia3L7pLvD77/+0+vev /08bvBjX2lm3yScPH36af/+9d/+8Nvf/MvH//H//p54DspfoG15wSS1/8Rk6eq7sS6c84/8+nbj3/6T2 32403+/P53H/Nva235EphW8x/o+vHld3/8No8Z0h4E 7Le//dt/07j7xhW85bN/6crNSr2mZh1AL/3sdF6PckE8B9odXCQrfDixfg++5u6d1suwx2aAA9rSqXRW 66vX//Fx/IrBxhSc75J/+dff/JIL8v7saLu32Mnfy/np8w+//MWrsT9/+f1P/1u5ctMtg71GW//d/Wy2 6ykh59O4oC5m/3e/WNT8k0RAY7mmFukow/rN7/7jbz 7+8Ov/+M1b7q+70fB85va7/ZbfylMLazr+NPfqkR//9rv/+M0f/sev/9jvon5034q2IahIkF+T+8H+4c nxFj2go3/K/m+//92fZu9+7P4k+8ereb2v04/+w+d/5hfflwB/dby/lGo2p8m7Yq6M4E2JgL3h2P71Zp Hvpg+d228SkkGo/vWPf/3549f/z2/+/Y//rIf01aoT 3bl0eYcddS2F//MP//SXf3L3+Q7/+Te//fV/e/vC+w3/6tf//Z9//e//9uvf/MWBY6V4+Pvf//aLP0FP gb/9/T9/EWqgW0FXaXxw/PNv/vn/+t2//iJhVG08lUmpbm57++X3X//VT1/67Jsgtyel7N/imX//j1fv +UdvmhrbB971fJ/9r6+p4aef/keHsir2RQ119wuAmF YTy+jBKf7/n3vAJRPnqld+5a//z998tI/f/+gJD6gm5DicbO/5ITU7u3Sf1wl0/VL/P339+WUy1EUslw Jplmwrw69//xqAb9eSz/OlL7/71xayd8/cc01el0eD9u47/j+nLzmxCgOuKKZ3bxPneRzhwxMwWpjEJX xoXHUhOtr4TN1MtZKnZCYiL4A7LQDcpo4mNGXwPCQk uOElUkAyYZKDPX1AxKDgXQ9WURp9PIOuCZEjMoYjDSFjtrP4OUXvOZNbDWVgW4NtdiGkvAUqSMRiSm8+ VJ2ap7RmQdClFLVtYfa6RH8UtOLxCN6XnRXkpZ3rghKtH855vgPvRMIoPqzud6HxKLjiIOLVQZ9DEKK0 NZN5MQRkWr5+OO7tb5SpAxPyELSoBps2AJ2PoDCnu7 IbOB8LS9XxOODqPZCQVVC3b3TkHBMcdpuwivxqT0TuXSF6cS6gODM6IWDmRBibEYAjAAruYoI5DATyHD dpVYTyJLJrAFRnRNPmEKl8xRDzWG9SM1WiNJClQPBKSSKszvRbGv4wGQsFGVhCI4YdHJEUGSHYDHtTCS N6OHQwWOOqRV0VzJAgLIJ4XEjKRMLRWUbJTIjsWeNt n2V3LMOgF6YjBYQjslRoGKWSAUnwPjpaTW7jqEkxrfesO7TqvHTdDYTFMSOpUYAiXQJfHYAdT5Jow6K0 M3EoRDnLWFDKCNzECKsmTwX1a51dknFATNIqKUVlCR0+AF4fb7LhFw0GOBThRI9zmzv6CX3XkYPhRA3K UOnreyVfU9fnqkAnPvWrKZBNHK6aO7QjdS34LMZ+Pm NoRG5yprg3dnThFoOhAEBlKYJvZRTbLVxjJOYhACCoOPBsTYE4OXS9HVBhLnZhHDArGgW9ULVbIAQeSS YelfSZNVWtCHK3QUF6PyNbYQAgORCpHLdzOCLeOQzfYlSvZZXkAPDyGP1tLcRsYOKnUPXcDEVkElG4Zu UgZiAKMDAwMDAwMDAxNiAwMDAwMCBuIAowMDAwMDAw ILw1ZVOlYWDtXJ7zNaHdLEHvJUAwAUKmYVLqWDZpklGIBYLoFGIvTYT5NVAfMCSpXSXwQFhuRNMxUEXa VJU1PTIfOLMoVJ7nAgPnFKVmVJV5QmKjKOOkKDIsjfHMALElJUNvUMR0FYUzAITeHKUhYPjzCFTmXECz PsM5COYvCELbWJ2mLxNdKQKxPVN5MTOnECIpCLWgsv PTYJFhNEKjRUe0XyOyVANkLWLcFMxrCVKsAEVrGZtpCMRdTVDjDD9wFsPaAORmNRWmLCAsDCYzNYZmwj XXINIeJJLjSRY5KzFgQIHgMLNbPPdfFZTbDQRwVVB4JJPoNVOeUS8lUlMmPPAcYuKmTjVgNLMeBYRulo AKMDAwMDAwMTYwOSAwMDAwMCBuIAowMDAwMDAxNzM0 XTFhZCAeBP7bNfZgUIXoCZF2DDCxDKQyIFYyoiHZRUSdGIWzPIFyAMC7YVLlJWCgMMb1sdVgtITzFbs3 Wk7LuFjpCEE6Bq4LtuIsKGFuKSNJEb7Wl271GERhIPUTPwx+DyauaGAmyHzkFYLAKxS8XyDQQYLJX8Y= ID Date Data Source [id number] 12/18/2019 05:26:01 PM EDT [facility] Name Value Range Interpretation Code Description Data Sudha rce(s) Supporting Document(s) Troponin I.cardiac [Mass/volume] in Blood 0.00 ng/mL 0.00-0.08 [facility] ID Date Data Source [id number] 12/18/2019 05:08:[address] [facility] XR CHEST FRONTAL ONLY [id number] RESULTI nterpreted by:LEYLA BarrowROCEDURE INFORMATION: Exam: XR Chest, 1 View Exam date and time: 12/18/2019 5:05 PM Age: 24 years old Clinical indication: Other: SOB and chest pain TECHNIQUE: Imaging protocol: XR of the chest Views: 1 view. COMPARISON: CR XR CHEST FRONTAL ONLY [id number] 11/14/2019 2:25 PM FINDINGS: Lungs: Unremarkable. No consolidation. Pleural space: Unremarkable. No pleural effusion. No pneumothorax. Heart/Mediastinum: Borderline cardiomegaly. Diaphragm: Slight elevation of the right hemidiaphragm. Bones/joints: Unremarkable. IMPRESSION: Allowing for difference in technique, there is no significant interval change THIS DOCUMENT HAS BEEN ELECTRONICALLY SIGNED BY BRENDA BENNETT MDThis document has been electronically signed by Brenda Bennett MD on 12/18/2019 5:08 PM Name Value Range Interpretation Code Description Data Sudha rce(s) Supporting Document(s) ID Date Data Source [id number] 12/19/2019 01:32:[address] [facility] Service Cmnt XXX-Imp : NoneMicroorganism XXX Cult : 2019 nCoV Real-Time RT-PCR: NOT DETECTEDTest performed using the [employer] COVID-19 MDx Assay. This test is only for use under the Food and Drug Administration's Emergency Use Authorization.Additional information is available on the following FDA websites for health care providers and patients. https://www.fda.gov/media/143979/download , https://www .fda.gov/media/816313/download Name Value Range Interpretation Code Description Data Sudha rce(s) Supporting Document(s) ID Date Data Source [id number] 12/18/2019 04:43:[address] [facility] XXX-Imp : NoneMicroorganism XXX Cult : 2019 nCoV Real-Time RT-PCR: NOT DETECTEDTest performed using the [employer] COVID-19 MDx Assay. This test is only for use under the Food and Drug Administration's Emergency Use Authorization.Additional information is available on the following FDA websites for health care providers and patients. https://www.fda.gov/media/373249/download , https://www .fda.gov/media/865891/download Name Value Range Interpretation Code Description Data Sudha rce(s) Supporting Document(s) Microorganism identified in Unspecified specimen by [facility] This lab was ordered by [facility] and reported by [facility]. ID Date Data Source [id number] 12/02/2019 10:32:00 AM EDT [address] [address] Patient Name: Amy Carranza Exam Date: 12/02/19 : 1995 Ordering Doctor: Harriet Marie DO Attending Doctor: Harriet Marie DO CC: CHEST, PA AND LATERAL INDICATION: LUNG NEOPLASM COMPARISON: Correlation with chest CT 04/25/2019 TECHNIQUE: PA and lateral views of the chest were obtained. Digital radiography was utilized for this examination. FINDINGS: The cardiac silhouette is normal in size. The superior mediastinum and justin are unremarkable. The pulmonary vasculature is within normal limits. Again noted is a left lower lobe nodule measuring 13 mm previously 13 mm. There is no focal consolidation, pleural effusion or pneumothorax. No aggressive osseous lesions or acute fractures. IMPRESSION: No acute pulmonary abnormality. Stable left lower lobe nodule. Professional interpretation performed by [facility] Medical Imaging at [facility] . End of diagnostic report: [id number] Signed: Jose Weaver II, MD 12/02/19 1121 Interpreted by: Kota Weavercribed by: Jose Weaver Name Value Range Interpretation Code Description Data Sudha rce(s) Supporting Document(s) ID Date Data Source [id number] 12/02/2019 12:00:00 AM EDT [facility] ([facility]) Name Value Range Interpretation Code Description Data Sudha rce(s) Supporting Document(s) Glucose Level 109 Normal Glucose Level [facility] ([facility]) ID Date Data Source [id number] 12/02/2019 12:00:00 AM EDT [facility] Name Value Range Interpretation Code Description Data Sudha rce(s) Supporting Document(s) Glucose Level 103 Normal [facility] ID Date Data Source [id number] 11/21/2019 07:48:00 AM EDT [facility] ([facility]) Name Value Range Interpretation Code Description Data Sudha rce(s) Supporting Document(s) Glucose Level 105 Abnormal (applies to non-numeric results) [facility] ID Date Data Source [id number] 11/18/2019 03:23:[address] [facility] Name Value Range Interpretation Code Description Data Sudha rce(s) Supporting Document(s) ED Provider Note [facility] CDWFOz2zMvCUGoYe63/SLLcqWFBfv3EtXFtvJWm3EVqlFOUnJ3UzODY0cE9uPDG9QIfXRlYkCeFvTwI7 lbm LjIfeVDoSjETTgGoyBLrRdKVdgZevlqXHwSQ8KlXG5BRNrL82qGDCdDTQjX3UfKND3XVu+Jo6QBPHnjF FzBS0IMwjL5U6cfrK9Kr3uz/Y/4A2aMLvfTPL7Om4WCRYaGdQNrP9Q6pUPK2vUuI3DOhqum/Ynbl+drq AqTDFKP5TeiYNdAw4c6G3ohob33e/fvFEcKqW8/G/9 ZxgSM5k8/j9238hqw4pydm7wJfKIgtDRxv7jH5691JaNs3tvN3XUNkBHBjIGB49YUw0XaxEoqNAz9fq1 y3w+0wYVn3jz6te82V74Xc5sQiq1Zpo+En14/Ng7+yB1ofM65p6j2kxb8kZqo4bU/LXecY08ixSkgzrh yMmqoyBO9hYeipuo+cznsw7aadcdONddw5p27a3x/n [file] 8FAV9gnyS9VR0JdEHfPDCaEWNfvLLzGGy1Y90eoSIkOWxgDL1IDTK+Dulce+Zh7HMUXfGUNfEAQzAaLaMG ZVIjYmN3QdI4JEk4GqQ1KpKP09eIxaxuKlPNqzFI7U MN5qHXYsMJATDY9CiNMoxR6cdvQeXwGrREHJCqBbO35peKEsYTUzHHC3GFMsTj8DKHHoF6YbckGlcRqj ovZbOCSzZXGQAZ2OOHxiumOgdARguNcrCH18eRriCY0FVp2QRsQsJG3gla8TiDMiQz8PRJI3UA0UHUJs QXYfIASnLJT3MFJvOmQqVXflFTZvSATwFMM5FWVtTD WqYG8ZIsJmCIUcURP0PBdlLQHlYZCrpl6FSIBzEDQ4TPEeEkZaLLFxPLFqDXlcLNDiSLPbAZY7YCZmEB ZaGG4WLaYlHEVtCADtIpvqTUQfGETvhu0ORHAmXGNyMCRzOEVwLAXfUMQkTUtnLOYpTLA3YOYfAHRnNI QrLA3JQdWyLFIaYTefMWLhIPOrMWXipb1YSXBpAZZo XTmjZEOcVVTjGOIvKOinSACmQYCaJFB7HLApAGLcUD6WNaTmMAYhCSN9SFRzUOWmBOZryu4EOIHaPTNw TYY4JFCgZMSiWFMhDXuyEOJeXRD2Wzt7AQRwJRXdBV8TKlIwBOSpSDs7KOFfENXkMFCtmj9KYHRfAEJt MDgyNyAwMDAwMCBuDQowMDAwMDIxMDMzIDAwMDAwIG 7PRwRoAMPzXrO7NTSkYYOcDNDutb9HLZNxCHCdMZA0GoBkXXAeJUXyEDobBRWqYKW9ElO8KFRuKGMlEQ 2ZDtDnEADhQbA0MTQvHRMcAIFazj7UFPZcZLHiQdDtTDWfBSHcOABuQRgoBNNtPLK1FxW6DRDhWKGnDO 6MGjHpNZToExp3XDOsRLDvZKNrdw7CPSLuGRPmAHq7 MTEnNOPhVJLnETtnYGTgUWS3XDGcUOQqFZOoIK0PSvEyAJZcMscoKlnjUEOyULNxca9UOTKnEDXkWNX6 HTYwBTIzISJzUDzpSMUhOFVyFhx7USAhSGYzMR8VHkNlBYXpStF6SfszHRTjMFCpay1NLNYgVPJ3QUt6 FJAlAMLxQIDlKIwbHHLfKOStHdwlOAQyXLIfWT2ANe UoDZYtNKX9UGNbQHWxJCNzva9NPYMlKKQ4WpevSGHvMHDyRVKsYOzeRBKuMDJuLFs9WHUvTQDzTN0FYf RnOPKmAKUgKKBuIRMoSFEnxl6JFBKuUOB8WWx8JBSpTYZbQJIxTErxKIMbAFN8WJW4VODiLKGxDT4QOk JoMYGbSRZaLwAlKZOyKZQxma7UZULkGOO6GQAeBkWy HMZrDUEmRBxiESHbASA2Ijr6FZWaUZLzAH5STvDoCWYpXAX4ToVeDCPsVZZnmm9LIGRbGDC3SVp6FPQy ORInJCYeGXgnMYWlIUE2NZB9ELKtFXZsRE7MGsZlPNgeXCGBGve5KGfkZ1p6GKV0WT7KJ3Qba4DpDYOk JNCQLPifKD4kzsQoZTFsZz0RM0yIJnblVoXeXKMxXT tnMUDgFGK8PERsCPh0FQVwYMCzACPyJr7eIGO9DiW3BpZiUMOeYjP2UPwpLmJ1NHp7PhQqJxArTBL8Do ByYJ5JEu7IBoK6XBT7oTHmIm9KCUJyOoNXJbAuCF9CFYk= ID Date Data Source [id number] 11/18/2019 01:18:[address] [facility] Name Value Range Interpretation Code Description Data Sudha rce(s) Supporting Document(s) ED Provider Note [facility] APGVUc1iCvOKDjJp27/IVNbqZKTno6PwJVcrMMp5RJpwMSVaQ1YzAVO7sS6nGPQ2YLjSVmDyFbBzYaG6 lbm [file] gx/8U3VksJxYo+snuwc26Yt1k53WxFIQxAGNYd+FJmdfJlQifibntCcb4ZxcgHl8YcxmPVjJy/OM/+SUBSTITUTE TEACHER [file] I+ZP0xXWs+Yx3Wv7WeqsZ1vaYuQBg1MYN1Zn3LZHTPO3QCSx== ID Date Data Source [id number] 11/15/2019 03:31:[address] [facility] Name Value Range Interpretation Code Description Data Sudha rce(s) Supporting Document(s) Discharge Summary [facility] LIXLVf1hVxZBCeGj27/DLZeoSMVeh7WwEKatZJy2DSkpZAYmG6OwDTE8mJ6zBYT7KSdOZiNsYiXgRkAj lbm [file] aT1Mb5zM0cwQ+CLME2vUXTsb/Gl08spU3VxnhOT+SUBSTITUTE TE[employer]ER [file] RbPyR2UNIlYHM6IkeeFXC+JJ2kDOl+Br8Ut3YspiW1xuKmEWotRGd8MY7NDFCQA8OCIg== ID Date Data Source [id number] 11/15/2019 01:43:[address] [facility] Name Value Range Interpretation Code Description Data Sudha rce(s) Supporting Document(s) Progress Note [facility] UKOHPp9iQoGLJiUw80/ITLzaQFGyi8VyILpoZNv3KPsuJLXaG4TfAZJ1dP9nPLP2OLfQIxWnTyIyTqSy lbm [file] FgR6IxP+DK0uXJx+Bo2Fi7CmcfB2edNlSAf7VECvSUodNOLTWq5S ID Date Data Source [id number] 11/15/2019 10:41:[address] [facility] Name Value Range Interpretation Code Description Data Sudha rce(s) Supporting Document(s) Progress Note [facility] GOYKLk8fMqGKLnDj51/LIIsdXZObb5SeHMygHMj4QZfkQJZyH6OsSQN7iI8fYDI8PBwTHtLuEzJxGwIw lbm [file] ICAgICAgICAgICAgICAgICAgICAgICAgICAgICAgIC ZyIBRnOOWrREJxHJMbVVOxKUWdQTRwLFIfLHYdVTIbOPTuCV7JVEQoHUKeHCMuBPVtTUIgXHTzPERdKD AgICAgICAgICAgICAgICAgICAgICAgICAgICAgICAgICAgICAgICAgICAgICAgICAgICAgICAgICAgIC XvAMZlQKPwISAgHCRtVOIwZR4DWOAgEDSkYPMuLFRw ICAgICAgICAgICAgICAgICAgICAgICAgICAgICAgICAgICAgICAgICAgICAgICAgICAgICAgICAgICAg DCGwHVSpBYBdJUPhJOPzXFQdDRXkDPKjDYEqWX0OQWNwHGRuPUDqKLFdAPVmTCDnZFKiGWBnRUEwQHXt ICAgICAgICAgICAgICAgICAgICAgICAgICAgICAgIC QcLVBfJGIxDXCnFMLqCDGtARWqYLOwDCCuANZhDYPmZXNbTCOjFD0QQMZxAGCrZHDeCRLiUFCbFMMjTD AgICAgICAgICAgICAgICAgICAgICAgICAgICAgICAgICAgICAgICAgICAgICAgICAgICAgICAgICAgIC VpEVUuWUJsQAExAGUrWBDpDFAcVD9YUSVqDMGcNBHx ICAgICAgICAgICAgICAgICAgICAgICAgICAgICAgICAgICAgICAgICAgICAgICAgICAgICAgICAgICAg QZXwNBMwONWgDBKnFVZpMTNgLSSsVOZaKEUhOUSdNN4IVOTxRADmIGUpGEZmJELpYAFcGUFyZBWsXWNq ICAgICAgICAgICAgICAgICAgICAgICAgICAgICAgIC ErFZLtLJUpFADjDQDmZZFjKDHwKGRzSXDjVFUcFXBiBOEzRMYlAPFuIH5TBISkTPLiPEZdSMShEKHiNX AgICAgICAgICAgICAgICAgICAgICAgICAgICAgICAgICAgICAgICAgICAgICAgICAgICAgICAgICAgIC TmXYFuTNVgAYPnJQGoTCDnIVYzZKWdFG9ERESvUBPk ICAgICAgICAgICAgICAgICAgICAgICAgICAgICAgICAgICAgICAgICAgICAgICAgICAgICAgICAgICAg GVZiLJEvZFRkKHMxRRMnNUPrVCCoEVRhCGRtYFKsIRReFP7BDTIzAXSoNBWlCMPyFPYwWDTkKXKhWZMo ICAgICAgICAgICAgICAgICAgICAgICAgICAgICAgIC OaABXnHYDcQNVoSYChTDXcPLZmFCMlPCGkADDvNFDbDIPmDAZyGOMhXRRrTV6NAR61tCDry8Z0MGKjQB 0ndyc/Sp2IAEhwzsNsvIBuHW2MZgHeOK1ewy9AXbSaFQ1exl8XFVoFLbJuM0T7yQJyWDRiUUHDKuDmL9 5vRFlfEy94EPfvGHLaZuUmQWd9Mz3LDzFqH7mxSEKo VdM9UPBsLkR0ICEzVzEvPSroEH8Fu7BjlFOjYDg+Av3ZWC7xs8PzFCmsNhRiUE3wlr5TFCvDJlGxM8Hl agR4DUT6AYCcDg4TLBWaLLXqeBWzHaCrQGIPZgKyP7MzdL69WVZOOa1+UHweolNeHmbAMzJ3QKKan1Bs JBp9CJ3GUJNgSZe0yCQiORVgV3Iwq3HsSh67PXZqIt lhDQ5kmVFTqCezjbdsk36xjUiwSVRTNPJ1POPaRk5mQIEzWRSnVkF4TVHBOG5PMRJaCMTxoOWnPAZjJL OJHI2ICZyxYLH8SSAuqtTykYScSVlpLA5PVKJfvdVuEDStXYWFECl+Jm4UYY6dt2YwEDrgOPRcDF0ljx 5IUGsDFrDjI6Q6oLWhP6B9REvgTt7WHMNzTESgJEQu TMUCBLstQG6WEN4vkeR6GW9NyVBdYCLoZUPwiZJdAVn7B57bzYIxHQxkSC4LHMU+Dulce+Zb5VWCBmQIYa DPAjJjQcPSBEFeLuQ7JsN6AKw8CiS6JuGX02vPdlegIzYDxuWN2FCT5gWYHyZJTZFM5EkPJviZ9tieCk XzIgKVGMTsXtE79dkPLiKZIsRNC0GYQoFg0FXJSeM8 WcscVctIwtulEzTKUjOOXHOW4SPJotwbHadTWmdYbeMU67lIajAE3RMu0KGlBjDH8rbk3CyZOyGp4IPI MvEW1YYIYpVXXrINHvJWQ9NKTeGyGhTGpfUJUhKNHfYGU3DRVuFHCcQQ6UWdNrOWDrISdtTWKeTSBcMP Cron5SMLAvRNThOPlrHpTuAIDpSHVnVAbcYJQiMELp JUP7CWWjPBXcEA9INrQfEBTgNDZoPWYhZYKuTLEkrn5GKECuGTKoPxA4HQXbIWFpAWRaCIcaDCFeWCL3 WtCpLWIvAFKuSM0NKoFzSOJyTSI0SSXaXWHlOYYytv6CPVSlWRUtEnF8UBBgEADtBSGzMChhRHWmOWH5 VlYrRNFvJBFbGC1RItApELKyJNW3DODtOFLcSFYefp 5IXEBqNXTeKrrpOUHyETClZQKsWVgxQGQpYYN2LXWbKOFkOEXuEL9XPmZfOSWrLHvjPIDgZUFjCVUbxe 8EKVJrTAZjXDM4NeWpEJWgEXRnOHmhYBTfEJGcXQBxJSPtXLHwTR3QNbPjFDTlDETwYIImAOUgACXwcb 0AGIHnBWJgHFS7CuAsENXtLCZfXHt7mmUppCIpYCy0 LJ6JQ1XfviTnQXbSJn6Rq177DAT2GYNyQr7CQ9xcPi3hLQRnPAOSRa2CHBr3HWQrKQtmWLFuM3O3C4Gq QXJsXbT9CfF6UXJ2JNFoQLT+NPxmUTSnVDAmT0KnYuJaKUH0SNJwCOr4BFanAnraCTT0UE7aPRISFz5+ ZHtzbHVheWraOLYJIkOxINQ8WMpsYQGGJu4M ID Date Data Source [id number] 11/15/2019 06:23:[address] [facility] Name Value Range Interpretation Code Description Data Sudha rce(s) Supporting Document(s) Progress Note [facility] DDQXVk6bImNXIcOl19/XDJyoROXaa9StBNiiWJr7MBrjXULwX4MlTZG6kU2oJCN9WNlIUaKnCzKdRxSk lbm [file] KHUVBrtkPCTMAvPhZK8YYJz= ID Date Data Source [id number] 11/15/2019 01:25:[address] [facility] Name Value Range Interpretation Code Description Data Sudha rce(s) Supporting Document(s) Progress Note [facility] RUAVNg2mKnOTOxGz30/NDLkvIUYhb9RvYKzhAFx2HRxiQVIyS3QuARE9fY8yHMR2SVtBKdVjIbMxTkHj lbm YaEyyJUtMtZHWiIcwOUeCsTHjgLpljwOQyXD9KlEG9IIHoR75qRGMgYADsF4RsDKB0DPG+Uk9RLQOxkN LdCL5NWtiX1JoerxVEJQ1OuI9pITAibYawd1n2luB9sNaMyDpRCvtnA1+DSWBwYFjH+nvHgaU7sdonZ6 KIRfp67p95IfI50apEhdJah4fil7cjto+tv/qhZA8z 9p31aZtx5Uag51DRNWjxJ3bdDxz+OnWpbjQg974lpqkid3B0AFjR19ZNnElpLZ6uYP/X32s3vC5iXEAs lxX2FydH48R+C4WnAu/+wwc2/A3nWYggb5kF6upjAx7PoeuPIW2yezwPyF6E0w/8irCcb2j8piWjU8Nv jRa5BUtMYzfk+ZQkCypUmfFLlW60OEflNHAS20JEhV [facility]jz+BqC6VYHbMUygg1gqwaU0+TsSOlnO8Vomk5KcV4i2U4orZ1HHnXx4fkiB0YwIQ+aaZ hiBjTG4Dfq04mSDNBNrH8303/Nq8sEDKk2uVjF8ZWcFzPH3HKyHks4hvG6daHjT2K9yyPnEXbV11zR+N AWo92l42+I614cL/YGZh3G0ikiNphG6N7ejGpS9wvC L4KjzXGz01Kxzhie/H2SROMquy7GXoZtpdD3zyHVUySZJalLGbsEndZW5v1TGgNQ43c+Z/vfrqLLwOE5 /+Brock/MpK+FkhO6LbhTvwb7wXqoHpRZYxKSpT2FFTSbMGy0c5TlBUzV3yiQGtwFgJxpQhgDfOITHw47C [file] UJHeZ6ZmBUR5FTtoMbP7QFHlMROwOL9gKCNMSd0+MAfnrPFfbVukGUIXIvS4KUKDMpAyZF6KCCa= ID Date Data Source [id number] 11/15/2019 02:10:[address] [facility] Name Value Range Interpretation Code Description Data Sudha rce(s) Supporting Document(s) HIV 1+2 Ab+HIV1 p24 Ag [Presence] in Serum or Plasma by Immu noassay Non Reactive [facility] Negative for HIV-1 p24 antigenand HIV-1/ HIV-2 antibodies. Nolaboratory evidence of HIVinfection. ID Date Data Source [id number] 11/15/2019 01:38:[address] [facility] Name Value Range Interpretation Code Description Data Sudha rce(s) Supporting Document(s) Leukocytes [#/volume] in Blood by Automated count 10.4 10*3/uL 4-10 H [facility] Erythrocytes [#/volume] in Blood by Automated count 4.23 10*6/uL 4.1- 5.3 [facility] Hemoglobin [Mass/volume] in Blood 12.7 g/dL 11.5-15.5 [facility] Hematocrit [Volume Fraction] of Blood by Automated count 37.7 % 3 6-45 [facility] Erythrocyte mean corpuscular volume [Entitic volume] by Auto mated count 89.2 fL 80-96 [facility] Erythrocyte mean corpuscular hemoglobin [Entitic mass] by Automated count 30.0 pg 27-33 [facility] Erythrocyte mean corpuscular hemoglobin concentration [Mass/volume] by Automated count 33.6 g/dL [facility]0-[facility] width [Ratio] by Automated count 12.7 % 11.5-14.5 [facility] Platelets [#/volume] in Blood by Automated count 305 10*3/uL 150-400 [facility] Differential cell count method - Blood [facility] Neutrophils/100 leukocytes in Blood by Automated count 56 % [facility] Lymphocytes/100 leukocytes in Blood by Automated count 38 % [facility] Monocytes/100 leukocytes in Blood by Automated count 5 % [facility] Eosinophils/100 leukocytes in Blood by Automated count 1 % [facility] Basophils/100 leukocytes in Blood by Automated count 0 % [facility] Neutrophils [#/volume] in Blood by Automated count 5.85 10*3/uL 1.8-7 .0 [facility] Lymphocytes [#/volume] in Blood by Automated count 3.97 10*3/uL 1.2-4 .0 [facility] Monocytes [#/volume] in Blood by Automated count 0.53 10*3/uL 0-0.8 [facility] Eosinophils [#/volume] in Blood by Automated count 0.05 10*3/uL 0-0.5 [facility] Basophils [#/volume] in Blood by Automated count 0.04 10*3/uL 0-0.2 [facility] Nucleated erythrocytes/100 leukocytes [Ratio] in Blood by Automated count 0 /100{WBCs} 0-0 [facility] ID Date Data Source [id number] 11/15/2019 02:00:[address] [facility] Name Value Range Interpretation Code Description Data Sudha rce(s) Supporting Document(s) Albumin [Mass/volume] in Serum or Plasma by Bromocresol green (BCG) dye binding method 3.8 g[facility].5[facility] [Mass/volume] in Serum or Plasma 0.5 mg/dL <1.2 [facility] Calcium [Mass/volume] in Serum or Plasma 8.3 mg/dL 8.6-10.0 L [facility] Chloride [Moles/volume] in Serum or Plasma 105 mmol/L 98-107 [facility] Creatinine [Mass/volume] in Serum or Plasma 0.45 mg/dL 0.50-0.90 L [facility] Glucose [Mass/volume] in Serum or Plasma 113 mg/dL 70-140 [facility] Alkaline phosphatase [Enzymatic activity/volume] in Serum or Plasma 98 U/L 35-104 [facility] Potassium [Moles/volume] in Serum or Plasma 3.9 mmol/L 3.4-5.1 [facility] Protein [Mass/volume] in Serum or Plasma 6.4 g/dL 6.4-8.3 [facility] Sodium [Moles/volume] in Serum or Plasma 142 mmol/L 136-145 [facility] Aspartate aminotransferase [Enzymatic activity/volume] in Serum or Plasma 28 U/L <32 [facility] Urea nitrogen [Mass/volume] in Serum or Plasma 9 mg/dL 6-20 [facility] Osmolality of Serum or Plasma by calculation 293 mosm/kg 275-300 [facility] Creatinine/Urea nitrogen [Mass Ratio] in Serum or Plasma 20 [facility] Bicarbonate [Moles/volume] in Serum 23 mmol/L 22-29 [facility] Alanine aminotransferase [Enzymatic activity/volume] in Seru m or Plasma 42 U/L <33 [facility] Anion gap 3 in Serum or Plasma 13 mmol/L 8-15 [facility] Albumin/Globulin [Mass Ratio] in Serum or Plasma 1.5 [facility] Glomerular filtration rate/1.73 sq M pre dicted among non-blacks [Volume Rate/Area] in Serum or Plasma by Creatinine-based formula (MDRD) >6 0 [facility] Glomerular filtration rate/1.73 sq M pre dicted among blacks [Volume Rate/Area] in Serum or Plasma by Creatinine-based formula (MDRD) >60 [facility] ID Date Data Source [id number] 11/15/2019 02:00:[address] [facility] Name Value Range Interpretation Code Description Data Sudha rce(s) Supporting Document(s) Magnesium [Mass/volume] in Serum or Plasma 1.9 mg/dL 1.6-2.6 [facility] ID Date Data Source [id number] [facility] Interpretation Code Description Data Sudha rce(s) Supporting Document(s) Phosphate [Mass/volume] in Serum or Plasma 2.3 mg/dL 2.5-4.5 L [facility] ID Date Data Source [id number] 11/15/2019 02:00:16 AM [facility] Value Range Interpretation Code Description Data Sudha rce(s) Supporting Document(s) Thyrotropin [Units/volume] in Serum or Plasma 8.010 u[IU]/mL 0.270-4. 200 [facility] ID Date Data Source [id number] 11/15/2019 01:00:26 AM [facility] Value Range Interpretation Code Description Data Sudha rce(s) Supporting Document(s) History and Physical [facility] AXOPFj4bLqRLChOy05/XACiyULMvc9RfSTbaXIr9AYvrIRSwC4GlGWQ3uJ8wKBA4OLoNTvPuFfQzKmXe [facility] [file] AgICAgICAgICAgICAgICAgICAgICAgICAgICAgICAgICAgICAgICAgICAgICANCiAgICAgICAgICAgIC AgICAgICAgICAgICAgICAgICAgICAgICAgICAgICAg ICAgICAgICAgICAgICAgICAgICAgICAgICAgICAgICAgICAgICAgICAgICAgICAgICAgICAgICANCiAg ICAgICAgICAgICAgICAgICAgICAgICAgICAgICAgICAgICAgICAgICAgICAgICAgICAgICAgICAgICAg ICAgICAgICAgICAgICAgICAgICAgICAgICAgICAgIC AgICAgICANCiAgICAgICAgICAgICAgICAgICAgICAgICAgICAgICAgICAgICAgICAgICAgICAgICAgIC AgICAgICAgICAgICAgICAgICAgICAgICAgICAgICAgICAgICAgICAgICAgICAgICANCiAgICAgICAgIC AgICAgICAgICAgICAgICAgICAgICAgICAgICAgICAg ICAgICAgICAgICAgICAgICAgICAgICAgICAgICAgICAgICAgICAgICAgICAgICAgICAgICAgICAgICAN CiAgICAgICAgICAgICAgICAgICAgICAgICAgICAgICAgICAgICAgICAgICAgICAgICAgICAgICAgICAg ICAgICAgICAgICAgICAgICAgICAgICAgICAgICAgIC AgICAgICAgICANCiAgICAgICAgICAgICAgICAgICAgICAgICAgICAgICAgICAgICAgICAgICAgICAgIC AgICAgICAgICAgICAgICAgICAgICAgICAgICAgICAgICAgICAgICAgICAgICAgICAgICANCiAgICAgIC AgICAgICAgICAgICAgICAgICAgICAgICAgICAgICAg ICAgICAgICAgICAgICAgICAgICAgICAgICAgICAgICAgICAgICAgICAgICAgICAgICAgICAgICAgICAg ICANCiAgICAgICAgICAgICAgICAgICAgICAgICAgICAgICAgICAgICAgICAgICAgICAgICAgICAgICAg ICAgICAgICAgICAgICAgICAgICAgICAgICAgICAgIC AgICAgICAgICAgICANCiAgICAgICAgICAgICAgICAgICAgICAgICAgICAgICAgICAgICAgICAgICAgIC AgICAgICAgICAgICAgICAgICAgICAgICAgICAgICAgICAgICAgICAgICAgICAgICAgICAgICANCjw/eH JuG3kanPFgqaG5M9eaHk5UXr4CJU7ru3AuZKCnYIht yiQwKqrXRuZmDNWeBwsESbq9YGxiZD3RhZZmY2SzN4BjWYtvKC4CSJCxGBBgyHKnDUWsXOXkUuU2HQNy AGvvAF0OiVOiDZxzDTOdKJDhIwYhLAFeSUXtVUBnHAHsIPFTCXDuGRNkRbGgLIczLS0Xq6UobWS3AGw+ Ow2TPG4ey8BnWHceQgIiTP8heh0XDNaYUfJfY5Bkvd Z8CYR8DQWrVg6FBABuAVJfaADaAQStSUGWAcVwL5DokV77CILKNf4+UOzmitVvFhzTCzF0JJNfj0HoNE z6DG4VXXBrNTc4jNKvJGKZEGP8HKOvifT0AT9uu3YrTJ9DVFX0PXKnOF3nOSFvLAByCqA3NYNSDT0MYU JjVRGeqYSkMBYxWVPEGX5MFHezYXV5GWRqglOsdVLl NDkuPE1FHQMfitYqPzGmBMLBJCc+Cg5SRB9ab4DmJSztVTBkHI9nvr6TGSbVJtLyP2Y5aIJgY9N6VEer Kf4MFHTaQSToDdMgJRTKWTfeGZ8HKI0bviY7RW2WiUAeJGLzCFVyySEyNGl0S53ywAVdWDprUY9KIIV+ Dulce+Sq6MXBCfCHCdTLJrNcZtUCYUEpYaC2EkB6FMd0 WeW1VcBG34mBsxfgYzHLvmMS5NIV2oGDZuSQRDNY1KlJAipF4iieAmLtWsXMTAQmZvC20lmGSbYUVgDT SlBKDbTn7ETPFfU2IpbgLobFdbznHhHQMsMVAOXD0KPVrfjzAnkYXhmUkpSK69oGvzFJ4YWp9FYrLfIK 1vsy6WaKNhIz6OWVEwJa6NSELzXWQfICElVDX3XAGu QhYbLDhoNBVnJIKhDUM5CILoJUJfHM4SRsCdPRVsHaUuExTrJJVoZCVikq3IPTYaSMNpMzf3TiByVMDr STLzUAtdEQYvHRGeWUC5HJPrQELqCM5WOxShRFDvGYZxLKWgILWvCRVydg0HMPJlUBPhYOC3RERiUCGy AFHiRNpvOTTjOIJ6XdFrREHrHZBwTF1GMxJmMSZxNT o6LuNaVNTzOZIlko6CGYVkITRxMEncFyOtGSFdZGXsSYblOZDuQAHbANGlXCVkXOZlJW4WBcJzVIKbIX Q1YCMtDVElSJLbbq9DAQBsCNXvXKvkMPNlDIJpDLSnOHlnKGQaPUS2KuG9OKDjSREpOC4JIhYjUPQnAE q9NkRiPGRiDPTupc6PWPMrHGReVWPcSKQrCBNdQIQg CNcyGOTqIKF4XkXyIZNxEBGjCP6STkPmLRWcAZp9FTWuEPDwOPZpyl5EUBWjQBGvBDx3YxZcCGFeYKAa SNpjKVIuZYVsRXL0UJJlFZZvGD4VGcXtUPWpSwSrJWOiRYEyKLXpth7DQEHsTFUfZEMbFdJiDKAkXFYz CEizZQMjVWUhYVKjEMIaMMZxOL5UZzXkDOQcImZ2DP GzKOHiXDFwbf3TNMRrYQVxNjk5LTRcZNKzQDRrAQugNIRvITEdWcz5OXHjOXJqFK8HGmDmWSLeHqC7QU EsYOYzHIMyzj3FVZMjUYNeJbv9UDMbEYLqGGSoFLvqPJTfFIInWJmnLGDeCACrTH5BKaQqZXYjJbX5Pb ExDWEdMFPjip8SPIUdZIPhCUUxPaHxCVGoMDVgCHqp AQTrLGW5AkTaQZBrOAGkMK3WKpQbMGHvGkR1FtZqQKMuRPCrra8MEKRkWRBxJmC3AvPsCSQaCIIdXWwr CCFnTEK4TKW1XGMlIOHnOB1UWgMnWQJgDybwQNFxRKGrKUPpqy6AiPStdCwsjp6MTViNAt8HvVywUJG5 BDhwIq0mgYWtLTCmIBFOHn4RneEjGKYlFMQQMWhfFI XeTLmbNpMrXTVrVOybXZOgXBf0Z8TrOHQtKFC2I9JeLhDlXqR9P7DoAFX3ZHW2ATQ5LSIiMPF5CJSrAd FlYTZjYTFmZmI+WF2cTRm+Ur0Jj4CfqsO6xxDhLAuvHmX8LR1OEWBXU0JRAi== ID Date Data Source [id number] 11/15/2019 12:36:[address] [facility] Name Value Range Interpretation Code Description Data Sudha rce(s) Supporting Document(s) Progress Note [facility] IDJJBj7mTiVWNgZw61/QTKeeKAWbt5FxGItwROc4ZDsmAQXsU5YmTTF5fN8rIDK0EJdBOaLtYiOxLqWp lbm [file] IMp4lTQ1vRVqgelhD1Ie58qAGKyv7Mfyu5sqaQRZti3+martín+CHAnKO7RSxHCiOif/2gW981NfK3JvKqC [file] SenOxjJsGXiGfHox6HsLewXEjtkqeMjwLppnJY3rDoR/tKZLp07TNW+RUBÉN/d20R5EiKICaEppDVV++Me [file] mQu7UPubb4OMCpFUQYNOXHIULTYPGHOMWPTXWZVSTVXVIHGYGPWWVIGTESYHFZMHDTLGSRIKIQOGPLMD AAAAAAAAAAAAAAAAAAAAAAAAAAAAAAAAAAAAAAAAAA AAAAAAAAAAAAAAAAAAAAAAAAAAAAAAAAAAAAAAAAAAAAAAAAAAAAAAAAAAAAAAAAAAAAAAAAAAAAAAAA DFKXJFKHKWFDZBWYGIELHUSFPYIVLe8u+BCtC2SAfsiaJflBZlHO2QHlLfJH4sdv5ISZOfCRWdRekNPd omGVzisbLaRewHMtUsWPCqImmKYvj7HOtzCK7Vnu6z O4Q1QIbuEKFQL2GrnFHyGE1pA6SPP1ojAAxxOm1NZxSjO7GihmItRUxiN9TdGBquLENBHCaoOBFfO6Hg IDExIDAgUj4+AHtaQR9HT3PjCQH2MNf0CY3ucTkjWCFkSXYcKu1NVWYzAL2imXtrEJKdXXMvLe4+DQog RF8PjMOAI2GhpZOvLYjiN2DTGY6BAMR0NJ0WlGTgBR 3LwCUOJ5KqcFJaNu5kJITyh7UoAg4mC6YQPGYAKREtVZcvZSxpHKMlEJz0Q5V8GLEyC0LUZ632oMLguG z2Ot9dV2MTBDvGGhZgTVxkINtaRVYmWPu0C8C2NOKkX5FXC0GbYqOqnaGnK2N+TwIyHAUIAQ9MAXQBLE s7B4X1iWRaU2M6fMpHvUB2RS8BMD3GvVFzzVDig46+ BtEBEwDtN2KPW4SBAZ2VCJr4N3C2zAXeV9O5bTbSaZL2ZP0CTC3WhEqdlZLqJu6fUHeoEYH+Az9DZn6U EsYqFY0rqt8RMXAuNATzOfdPCau7Z3fvfit7sZRmYyD4O6K6WoL5hJJwRT5RB6K3xGKvRTF5NBDrvDH+ Oy8Ds5KdNUKfXGc4W4qdVPDqPNFeQtIvoT67L++7vy lwrGI0P7b9JHEAsWTakKjPpoBtL8dJUVD6h6U1GKv/Ff3WICH3vJd9rNOvOOMwODi7rX7dzFt7AaQkHV 18XVRzOGupkQ0iUno1G1Hqh4UaGe2tPl0ecKLrJl1IVgJfJUF9bqBhNsFSMmK8rVuicgxjSTN0S9r7bG I2By51d1pwjjDau0QnArE0JKgwKQWoSkBxunDyHER9 txCndZ3ltkYhMe0KWBSpBYsjacQaZrBDXq9BSjLfBS24DkshbE3ehNI+DQogICAgICAgICAgICAgICAg ICAgICAgICAgICAgICAgICAgICAgICAgICAgICAgICAgICAgICAgICAgICAgICAgICAgICAgICAgICAg ICAgICAgICAgICAgICAgICAgICAgICAgDQogICAgIC AgICAgICAgICAgICAgICAgICAgICAgICAgICAgICAgICAgICAgICAgICAgICAgICAgICAgICAgICAgIC AgICAgICAgICAgICAgICAgICAgICAgICAgICAgICAgICAgDQogICAgICAgICAgICAgICAgICAgICAgIC AgICAgICAgICAgICAgICAgICAgICAgICAgICAgICAg ICAgICAgICAgICAgICAgICAgICAgICAgICAgICAgICAgICAgICAgICAgICAgDQogICAgICAgICAgICAg ICAgICAgICAgICAgICAgICAgICAgICAgICAgICAgICAgICAgICAgICAgICAgICAgICAgICAgICAgICAg ICAgICAgICAgICAgICAgICAgICAgICAgICAgDQogIC AgICAgICAgICAgICAgICAgICAgICAgICAgICAgICAgICAgICAgICAgICAgICAgICAgICAgICAgICAgIC AgICAgICAgICAgICAgICAgICAgICAgICAgICAgICAgICAgICAgDQogICAgICAgICAgICAgICAgICAgIC AgICAgICAgICAgICAgICAgICAgICAgICAgICAgICAg ICAgICAgICAgICAgICAgICAgICAgICAgICAgICAgICAgICAgICAgICAgICAgICAgDQogICAgICAgICAg ICAgICAgICAgICAgICAgICAgICAgICAgICAgICAgICAgICAgICAgICAgICAgICAgICAgICAgICAgICAg ICAgICAgICAgICAgICAgICAgICAgICAgICAgICAgDQ ogICAgICAgICAgICAgICAgICAgICAgICAgICAgICAgICAgICAgICAgICAgICAgICAgICAgICAgICAgIC AgICAgICAgICAgICAgICAgICAgICAgICAgICAgICAgICAgICAgICAgDQogICAgICAgICAgICAgICAgIC AgICAgICAgICAgICAgICAgICAgICAgICAgICAgICAg ICAgICAgICAgICAgICAgICAgICAgICAgICAgICAgICAgICAgICAgICAgICAgICAgICAgDQogICAgICAg ICAgICAgICAgICAgICAgICAgICAgICAgICAgICAgICAgICAgICAgICAgICAgICAgICAgICAgICAgICAg ICAgICAgICAgICAgICAgICAgICAgICAgICAgICAgIC UvMOs2U1exEBNcAQYbEY8fJVl3Yk3+VUhYUbQlDAI8bxCnfX6PCJ4iz9UjWQyuOSIzc4UlSJu2XD8HVG TvUExbOO1MCQxfce8LDYYeZDSpkLLRj5geUxGyMPQ1BNFwTcbgSL8PYDOwF4tbkwJbFPIyHSEDRQ4MZx TpT2CizM88KMGUFo7+HHhxljXqBzzEPdX2EONri1Zo PRe1OY4DHOYqZukwz2ThGAfxTPJAOWlmOR0PWCN1FJK5LCKmOn2OUBRuE305aeYjEH3EQw7YIpFqHD8z mp9DRUcxMMOyRxpEJsr7UIsaWF5EbPXoELvMde7vbxGlxtAAx8DvnkKxmNQPKB5eRVvxXLSEpNHfspTs XPXCZZL9UCRtTq4qZJJdROMoXoU5VYUVUO6TGMZpQN QcmYXnIJIcZPAKXG4OTAkvVJN3LUTdorVgdJHlWFtaLM0AXMBqktWgOBNwLXTQJTr+Sb6RKF0qk4AhXI lkNWIwGI7sun7GJKyMRlCsL0B9sLExR9K8RVliYw1AIMUcOTZbKAOxRPORWEtpOL7QWT8ujqY2PM0YfE KqCCJsQSWuqZNpWRb9L15dhICoSSitFY1HHWR+Dulce+ Mc2HIJQoWPLcLVIiMxQzXBBVUzOsZ5VzT7IKh0IxU5LjDA04kWxytkDbYNueFG6KFL2vLZSnCYKHLX6G yNZokN0pfqGeIfHsRDSZYrJnA19vrIFyMKWnMWU7TCViAl6VFIStN2OrqyJayQphsjQsHOBwWCCIMY7P QEpdkmJvmPOmrStfAZ75tZobPQ6AXm1ZAwHxYR8lpf 8JuPXeBk4BVAIaCG7VXQZnVKEhRXOeUZR7ZCZmNjGaBRhxFIUgSRGyGFR0QBMqIIVrFY3PQuOaWIEcHS jlMABdJLLmTAQtnt9NGHYtVWJ6FMr4OISjNHXtRWZcNDbqUHTqYCDqAAS6FXDlPIVpNK0WAeRjYEJcWQ R9DUHfRBRwRTFvsz0VILYhPSTgUKHfOKDkRHXeAYUq YFggQPNnADVdEZg7TWElTHAvJN6YYcUnTZRhNFE4RqZxYMQeBSMgbz4HWHPoMERpYzs6XINkHHCuQIIk SImyDCHdKPRjWZFbHVSjGNLtPP2OMkSrZKFyHUCrHILgELPuTNVceb2NUXTfOJSeDJMvYCJbFJBfYVPj OFstDJGkHOD2FUB6TUZaHWBrLR1JNtPrUAMxNEeqLz EsJWWeLTBfle1XMYBlYLR2KTA3NFHzRRDfBLUuRApzDMDyNXSnPTf8YVDgFBNiCE9GFyXbDFKyEIZ1IP wxJZPiKJZpfk9CLBZtHJT8TFXfUsZyIUDyFCAbWAs1rzBkyMXePNq1XR1VS7LfojOlBSrOQg5Cf865LH F6HVJlJu0GF6vgVn8dAXCsHSLJMs2HTXx8UZUvGPV5 DVffDxezXbZqEIWwAMJ9DSp4XyEzRoKhIKR+BZsjTYKsNTF6BMCpMIUgNGSnHILfIAL1DRdmXGXaLgRg Ao7yJXKTTm1+CTtpyBVfvUmbMEVOKeK0SZB6WZ3WFDGET3GIWm== ID Date Data Source [id number] 11/14/2019 10:33:[address] [facility] Name Value Range Interpretation Code Description Data Sudha rce(s) Supporting Document(s) Color of Urine [facility] Clarity of Urine [facility] Specific gravity of Urine by Refractometry automated 1.003 -1.030 [facility] pH of Urine by Automated test strip 6.0 5.0-8.0 [facility] Protein [Mass/volume] in Urine by Automated test strip Neg [facility] Glucose [Mass/volume] in Urine by Automated test strip Neg [facility] Ketones [Mass/volume] in Urine by Automated test strip Neg [facility] Bilirubin.total [Presence] in Urine by Automated test strip Negative [facility] Hemoglobin [Presence] in Urine by Automated test strip Neg [facility] Leukocyte esterase [Presence] in Urine by Automated test strip Negative A [facility] Nitrite [Presence] in Urine by Automated test strip Negati ve [facility] Leukocytes [#/area] in Urine sediment by Automated count 0 -5 [facility] Erythrocytes [#/area] in Urine sediment by Automated count 0 /HPF 0-3 [facility] ID Date Data Source [id number] 11/14/2019 06:44:[address] [facility] CT CERVICAL SPINE WITHOUT CONTRAST [id number] FINAL RESULTInterpreted by:Beverly Tilley, Kristen Casas MDINDICATION: fall, neck painTECHNIQUE: Multidetector row helical CT of the cervical spine was performed without administration of intravenous contrast. Coronal and sagittal reformations were obtained. Automated dose lowering techniques and/or adjustment according to patient size were utilized for this exam.COMPARISON: No relevant priors.FINDINGS: There is reversal of the normal cervical lordosis which could be secondary to muscle spasm.. Vertebral alignment is anatomic. Vertebral body heights and disc spaces are well maintained. There is no evidence of acute fracture or traumatic subluxation. The prevertebral soft tissues are unremarkable.IMPRESSION:No evidence of acute fracture or listhesis.This document has been electronically signed by Beverly Tilley MD on 11/14/2019 6:42 PM Name Value Range Interpretation Code Description Data [facility] rce(s) Supporting Document(s) ID Date Data Source [id number] 11/14/2019 06:41:18 PM [facility] CT HEAD WITHOUT CONTRAST [id number] RESU LTInterpreted by:Beverly Tilley, Radhafazal Thaoclarafabiola, MDCT HEAD WITHOUT CONTRAST [id number]: Fall, syncope versus seizure TECHNIQUE: Noncontrast CT of the head using axial technique was performed. Automated dose lowering techniques and/or adjustment according to patient size were utilized for this exam.COMPARISON: NoneFINDINGS: Suboptimal study due to motion.No intraparenchymal hemorrhage or midline shift. Marshall-white matter differentiation is well preserved without evidence of acute infarct. Ventricles, cisterns, and sulci are normal. No white matter changes. No extra-axial collections.Paranasal sinuses are clear. Mastoid air cells are clear. No depressed calvarial fracture. Extracranial soft tissues are normal. Orbits and globes are normal. IMPRESSION:No acute intracranial pathology. This document has been electronically signed by Beverly Tilley MD on 11/14/2019 6:39 PM Name Value Range Interpretation Code Description Data [facility] rce(s) Supporting Document(s) ID Date Data Source [id number] 11/14/2019 06:30:48 PM [facility] CT ANGIOGRAPHY THORAX [id number] RESULTI nterpreted by:Obdulio Pascal, MDCT THORAX WITH CONTRASTCLINICAL INDICATION: shortness of breath, rule out PETECHNIQUE: Multidetector axial images were obtained from the thoracic inlet through the domes of the diaphragm following the administration of intravenous contrast. Coronal and sagittal reformats are provided. Automated dose lowering techniques and/or adjustment according to patient size were utilized for this examination.FINDINGS: The study is limited and suboptimal due to motion artifacts and delayed acquisition of the pulmonary artery angiogram. Opacification of the pulmonary arteries are therefore suboptimal.There is no gross evidence of a pulmonary artery embolus. The pulmonary artery is mildly prominent. There is no evidence of right heart strain.Mild soft tissue densities are present within the bilateral hilar regions, suggestive of shotty lymph nodes. Soft tissue density is present in the prevascular space and this could represent residual thymic tissue. The prevascular space maintained its normal contour but the soft tissue density is somewhat heterogeneous.If there is clinical concern could be further evaluated with an MRI.The tracheobronchial tree is patent. The lung bases are suboptimally evaluated due to motion artifacts.There is a 1.4 x 1.3 cm mass which is located along the pleural surface of the left major fissure, projecting into the left lower lobe. Pleural- based nodule measuring 7 x 5 mm is present in the lingula. These could be infectious or inflammatory but cannot exclude neoplastic.The visualized upper abdomen demonstrates the visualized liver, spleen., Adrenals, gallbladder, pancreas and kidneys to be unremarkable. The bony structures are unremarkable.IMPRESSION: Limited study as described above.No gross evidence for pulmonary artery embolus.Heterogeneous soft tissue prominence within the prevascular space which could represent residual thymic tissue but given the heterogeneity, if clinically warranted, it could be further evaluated with an MRI.Pleural-based mass on the major fissure in the left lower lobe and a pleural-based nodule in the lingula. These may be infectious or inflammatory but cannot exclude neoplastic. Recommend follow-up as per the [facility] protocol.This document has been electronically signed by Obdulio Pascal MD on 11/14/2019 6:28 PM Name Value Range Interpretation Code Description Data Sudha rce(s) Supporting Document(s) ID Date Data Source [id number] 11/14/2019 04:22:[address] [facility] XR CHEST FRONTAL ONLY [id number] RESULTI nterpreted by:Dereck Washington MDINDICATION: Syncope, shortness of breath.TECHNIQUE: A single 75 degrees upright frontal view of the chest was obtained.COMPARISON: None..FINDINGS: The cardiomediastinal contours are within normal limits. There is no pneumothorax or pleural effusion. Bilateral inferior perihilar peribronchial thickening, likely reflect combination of atelectasis with surrounding inflammation/infection.. The osseous structures of the chest wall are grossly intact. IMPRESSION: Bilateral inferior perihilar peribronchial thickening, likely reflect combination of atelectasis with/without surrounding inflammation/infection. Clinical correlation is suggestedThis document has been electronically signed by RADHA Washington on 11/14/2019 4:20 PM Name Value Range Interpretation Code Description Data Sudha rce(s) Supporting Document(s) ID Date Data Source [id number] 11/14/2019 07:23:13 PM [facility] Cmnt XXX-Imp : NoneMicroorganism XXX Cult : 2019 nCoV Real-Time RT-PCR: NOT DETECTEDTest performed using the [employer] Simplexa COVID-19 Direct Assay. This test is only for use under the Food and Drug Administration's Emergency Use Authorization.Additional information is available on the following FDA websites for health care providers and patients. https://www.fda.gov/media/689706/download , https://www.fda.gov/media/877913/download Name Value Range Interpretation Code Description Data Sudha rce(s) Supporting Document(s) ID Date Data Source [id number] 11/14/2019 03:14:00 PM [facility] Cmnt XXX-Imp : NoneMicroorganism XXX Cult : 2019 nCoV Real-Time RT-PCR: NOT DETECTEDTest performed using the [employer] Simplexa COVID-19 Direct Assay. This test is only for use under the Food and Drug Administration's Emergency Use Authorization.Additional information is available on the following FDA websites for health care providers and patients. https://www.fda.gov/media/325079/download , https://www.fda.gov/media/222433/download Name Value Range Interpretation Code Description Data Sudha rce(s) Supporting Document(s) Microorganism identified in Unspecified specimen by [facility] This lab was ordered by [facility] and reported by [facility]. ID Date Data Source [id number] 11/14/2019 02:57:38 PM [facility] Name Value Range Interpretation Code Description Data Sudha rce(s) Supporting Document(s) Troponin I.cardiac [Mass/volume] in Blood 0.00 ng/mL 0.00-0.08 [facility] ID Date Data Source [id number] 11/14/2019 02:59:[address] [facility] Name Value Range Interpretation Code Description Data Sudha rce(s) Supporting Document(s) Leukocytes [#/volume] in Blood by Automated count 12.9 10*3/uL 4-10 [facility] Erythrocytes [#/volume] in Blood by Automated count 4.43 10*6/uL 4.1- 5.3 [facility] Hemoglobin [Mass/volume] in Blood 13.6 g/dL 11.5-15.5 [facility] Hematocrit [Volume Fraction] of Blood by Automated count 39.4 % 3 6-45 [facility] Erythrocyte mean corpuscular volume [Entitic volume] by Auto mated count 88.9 fL 80-96 [facility] Erythrocyte mean corpuscular hemoglobin [Entitic mass] by Automated count 30.8 pg 27-33 [facility] Erythrocyte mean corpuscular hemoglobin concentration [Mass/volume] by Automated count 34.6 g/dL 32.0-36.[facility] width [Ratio] by Automated count 12.8 % 11.5-14.5 [facility] Platelets [#/volume] in Blood by Automated count 315 10*3/uL 150-400 [facility] Differential cell count method - Blood [facility] Neutrophils/100 leukocytes in Blood by Automated count 75 % [facility] Lymphocytes/100 leukocytes in Blood by Automated count 20 % [facility] Monocytes/100 leukocytes in Blood by Automated count 5 % [facility] Eosinophils/100 leukocytes in Blood by Automated count 0 % [facility] Basophils/100 leukocytes in Blood by Automated count 0 % [facility] Neutrophils [#/volume] in Blood by Automated count 9.61 10*3/uL 1.8-7 .0 [facility] Lymphocytes [#/volume] in Blood by Automated count 2.51 10*3/uL 1.2-4 .0 [facility] Monocytes [#/volume] in Blood by Automated count 0.68 10*3/uL 0-0.8 [facility] Eosinophils [#/volume] in Blood by Automated count 0.03 10*3/uL 0-0.5 [facility] Basophils [#/volume] in Blood by Automated count 0.04 10*3/uL 0-0.2 [facility] Nucleated erythrocytes/100 leukocytes [Ratio] in Blood by Automated count 0 /100{WBCs} 0-0 [facility] ID Date Data Source [id number] 11/14/2019 03:19:52 PM [facility] Name Value Range Interpretation Code Description Data Sudha rce(s) Supporting Document(s) Lipase [Enzymatic activity/volume] in Serum or Plasma 14 U/L 13-6 0 [facility] ID Date Data Source [id number] 11/14/2019 03:19:52 PM [facility] Name Value Range Interpretation Code Description Data Sudha rce(s) Supporting Document(s) Bicarbonate [Moles/volume] in Serum 26 mmol/L 22-29 [facility] Chloride [Moles/volume] in Serum or Plasma 104 mmol/L 98-107 [facility] Creatinine [Mass/volume] in Serum or Plasma 0.49 mg/dL 0.50-0.90 L [facility] Glucose [Mass/volume] in Serum or Plasma 94 mg/dL 70-140 [facility] Potassium [Moles/volume] in Serum or Plasma 4.3 mmol/L 3.4-5.1 [facility] Sodium [Moles/volume] in Serum or Plasma 139 mmol/L 136-145 [facility] Urea nitrogen [Mass/volume] in Serum or Plasma 11 mg/dL 6-20 [facility] Anion gap 3 in Serum or Plasma 10 mmol/L 8-15 [facility] Osmolality of Serum or Plasma by calculation 288 mosm/kg 275-300 [facility] Creatinine/Urea nitrogen [Mass Ratio] in Serum or Plasma 23 [facility] Calcium [Mass/volume] in Serum or Plasma 9.0 mg/dL 8.6-10.0 [facility] Glomerular filtration rate/1.73 sq M pre dicted among non-blacks [Volume Rate/Area] in Serum or Plasma by Creatinine-based formula (MDRD) >6 0 [facility] Glomerular filtration rate/1.73 sq M pre dicted among blacks [Volume Rate/Area] in Serum or Plasma by Creatinine-based formula (MDRD) >60 [facility] ID Date Data Source [id number] 11/14/2019 02:52:37 [facility] Name Value Range Interpretation Code Description Data Sudha rce(s) Supporting Document(s) Choriogonadotropin.beta subunit free [Units/volume] in Serum or Plasm a <5 [facility] (NOTE)Levels between 5 and 25 [IU]/L may indicate earlypregnancy and should be repeated after 48 hours. ID Date Data Source [id number] 11/14/2019 02:03:[address] [facility] Name Value Range Interpretation Code Description Data Sudha rce(s) Supporting Document(s) [facility] RDJPLw1aIeEVVrJob7TlWvDdHTKcHO0grrk9B6L4rBTkQ5NxyKUtr0mkG4GdA8OkPYIyVZLSFJ4UbILr jb2 [file] vp revenue cycle+ilXwnPe+dw7Q428lylXsy2Ai0/2Ico3HZM6In9Y 09d/5TOp/NH3XD/0NuGeao3rgbiavI/6Ts8uf/RdnlP/+9/ROl1PYk+w4u3K4MueNhi/6TvqKLr+lTd7 50bF8Unrhl/T99f/9Aw/hF3xOJ10E58eBRnq+aPvysoOf/ZHpgwGBM53550m8gipzFmEu163/rs8p32l +fQP1+/v42o1SD6hIqd/+/v1U4/nnvdr/3jcg15a1i /2Mn2k9a/ujg59LBpUq5ggwUqccx+/4z4h1r3/mW1UEopDltn0iuSQE2H9Y08ggfxdlO9+5hlRfrFSP8 4/Uf9Cu+s+X11E8prRkb0GzmEzSE9OFt34tTBsl3uj6+notp53y1WqAs202A0H3cS2m54Wfz/3GUwp4r w2SYD6ywW+d1ENMisRzf7hykHwA0gZX0LCtLaaBl45 a4E4TDaSW+Nz0NAes6nB3evQci/1g7GaZdxD6Ovp0rO7vytKw2J0mMlbyA417wIbU3PiJv2e4xz/9H2v v6e7EWv508D8Z099gz6nJhs+v1/l3bBAgC9EdzLyrbr+nk58IoL0UMdBvJW8Z5iFjQr4P/lA+QI63I08 muv1xdR0e28mo8/aKeQ+Yn5UbteWlJN+BfdRD6Svo6 7J4+7zO3fc+8JOHX+pc3fiuxUn49eqnTt6hCk+Xg+QN1OTvG+UrzfOZ/ZhPKXk1yf8vqWnSoTJwY+da5 DdzVUCFR5p8jGzWwAB2FGbH6/xeAdl5lTn45o/tnEi67qfQ8vKuoo3W11MN2+vF8rX/x33yhqRv/Jre/ lJFr/Yz4Cpf8Jnut1V+opf+b1bX6+vxv8C00Y+4lf+ c5GlINawyipymurX2k7JjduP54bCq3ps97hnw/c56wVFah77G794f8/Xrza/cn8r+/67qTo5Lts0rqWx C/y5wJ/RRpd43ePBhmvb+/Svarc/Yvs2KntbtfvI/DuhNQpP86y4sa0o58jhC181xiaXk4+BO9HbY+PO 881VTW1eLV6E9h0EYiz5fGujPzHny+n0b8io3Pi545 wxgDK8gsSbf6In4ikskimbDtIaezXxH69p6KrT6uavmv0l70om2GReSC8Wp5G25Gjyh9D7PZ3nUjbpiN 3632zyp97tti543wdA95r404zu07HgvuDXymdn2bYj6iPx37e0udnYV9+BH801Ex/I7kjbMvHzuPk9zw ez+JWuxa/V5pTx2vswco/f+A7Di1ziMtw2MpumvKsW Q2U6xXmUIf1Pnz+aX99+ZL2dsu6a3vGO2olWLoantgU+x24s0ANz/25+5facGH/nnR/t7OzT9+ +56mw9zawFR4z+4Brp9V71XjcXwiMgydswXlX/MzH/R0/Zsgu52InhkO/nvNB1W+54OemLzngyrf/Gop krekri8N/it+TN7d9mX0aky36sex66Yf4D4y/N386p QjPi/dyx1d0Kgkspc6Isns4qi4UdLyS7+/99VO3jcfePn+GVRw2J35x/kKfLD3ZQjF/RX1VNR/1zdKai zdTP0tMxwkHD3sf/qWdPtvSbf/Acq6x0Q4pbrmo9IF0Vh/v/232H2/iTmES29lPA2K/Z8zQtWxnekHy1 DvJ34/Nn0dkgIASg6s+bNdTy8o40TcC5xT62RmS64M 8atz/Y6/AziqFIK9amtouUL7l5hwcNG4RJKBE/Q6cdr988RjC70aMN9Iu9M3r5D7z6Sv1r8L6ajOLsCi jSJ+5bkV7Fel4PmCZ0bU8Yv4+tIQjS4yUrB1WlmEvdmxv55hu4jKC22mWv/eyzXdc6lbvdDjj6f+fm9B DiKVf1K7ap2bqafTP3l57wbY+Or6WgxJenTpb0OD8w /Uf/lGEb/Gh9hg4mfWb1MDa/Rh6i7jMU8+5B8rTHa/ko9p/Rn7ZenPrj7g/0K7bL07nMuWK8Cx/zb034 b+q/Meu47EbM44fl874Mk+W7qh/OPD5lLsQoWC1p/894hXWr/n95zevfwZl1T+VbB+VbB+ANx8TofX0G 99O/QFvyrjrj+Zmrbbz9kl3BPzW8XwpRcGWx4GFwBa qwJ+JxWuGehEXR7sZ+AJ1kR7CAizL+V9xi1BG63kyLdE3O0Ln5fVXCk6bgKP/Dq95tGv0H4ziMq0hkjk 32v8/oXoxhy2Is+XL2ZqbAD4AieBQucknzRoNXsomp5LsU/lqhY15U8N4JyvSzIwY7NYu/DtEs7t765N oVAWDbS8kIcv4j9dG7/z5jyYXxW5olN3nnBISlv+rz VOW8tGlkuooqqGjJ+9cXInKr/CJrLy7FBWYrWlCC1Q5A53i/fWcoU6l8Mv+d0EHlsvm2bDxoRIgsx0Fk X+DUE9F9y63bnj+STIpmR8uNzx/gckfxIH55/1jSp+5XVO1H/3U6rd/kniL3en1s43Z9YbeGHqQF+v2B +s2B+s+vNnqm39pPfmZ52zB126CkgeP2+ouaMc+opf rSoYw8gdhzmG/2brm/78EVxAJ8qbpE496Rv6P+mA79LX44l++7ufUrV+sart6Wp7Vcg1m5Jyr6g584Wj 7Pu8D9n5LMWgY+f62rPc/efXu4SOccoQ46y/Oo53sKh981WsBQBjCd+17vlMoaNKy49tEm9+UAEV6r2r /plEGcGPvks+rIlC0hRn+PEpSL0TeNFun1+rlz/Xes cfkk6TFEo8Tfo5K8z683+tl2/UevlGrRPlC+V3/K3tjr+3Um6Ks3VtIR3+9zTYA8gLfilQV6gzkusD8/ reyh1pMOpLgvPCGfhnhg9J6LqRsyP2Ojz05fx9lsj+LdCbHseI6AMg9x7DVm/G/mDtdz+09o5y+DP4VQ W/qtgfrL4/yKpI7uOJhY8Rva/enS5P9Gt63wrpoJV6 bBw1e9YII6L0vAC2aism16l1vP705kNbeUCIk/e7q/gMXuv526661l3kJf7ngfMTo9zYJ4bnxzuU1lY8 nXi/k6B0yrlwjNZv56ja/n6UmajmP+X19623Ka+qb/dfrg42261Vmqrx30PXtIm2KrMste390K4O8q/C +745ngv1yn5AV02/x/gPZHRz0D++P/iUt3S/R2pav/ JrQ7mh/PpzS7f/piF6claKi05sN7Ave3f/fWe1Dqb1N536yB+d613+Scvjo2CGlM+U3+4phltPgg0Zhx en84slkxSo75yquP9zNyT30jm4M6P7s67p5GapPb+Y4w3600ts5UkK9h1yhPPcH9xb/BrwPnudm5Bnpx a5LxIDkX0b+uQo4EWjXa18l4m0ztYz87z9w8/pj1Ps CB3zb0jiU3q4C8tiolTYAOkexVie8moat929wzi7gBzM8/ag5PIbByIJ1W6cUgBg3XPPs86weY7zrpzs KF+7jFZh5aqryvU21L5+2X5qIIwI8Cuhv8L+m181+nruY86Usl+a/H/gJ9vi8lyl53n0op+Lza/ea5Qv xR1yaplk3huA1/3u2OwJMRi5ff7c7xg6dg8n7Qy3p3 r+E9Lz9wwRi4ovOp26j21/ur9Hl00sy895ba1+6fhzS1loqd/Z/Mr71+ZXvx/p+ilXzubmV/oGbKfhvt eG8t1/lT+3+FJ22t6zhQXt+JXigPiV5/ne/f3WEK/ErxTT/PurbSv//ucpIS1tDWh3iiM1+/1ka3e+39 l0KgO3Jf3l7gylSdCS0c9aw04vR54r/eJXardfvtH6 Xc9p/X6/0sh9ouR93Dq+1bB+5adTFoB69/Hd8Ph9L07jnb+0cee/aSEoEW1P7M62qHCm8kl1p03v3tkN Tqz1+fjOq/E2cj5h9es8tfu3oqEmDCpzyqxi2t7ugVRb04HnNn60Wbrn3033/bh0fxZ29ycDbgvuKwi8 V+y9Ea0jDb78+4zxt0i8vau1V227wkk36zc+v/mV5l ZN+1Icjq6WntPsN/mt27Zm7Fti6GuvuewuZ4333O/9wj6fB756XAyScL3zZsw2hf18/ldZs7/35Bm0z/ eoydNkf+Uelx5+NZqe5+FXv/ixMOxmaMs0j1K+20HU4c80bcly4qlBA/9P0na95h3C/GD16gMtekgJ3r FX/c4dUtWqQPV/bGp0fKC7spoz9vf1mkPESy04kf/r mkzMdziL4i32C9Aa26bo/Pn5q2V6ieHmUps2RJnnhe1zmi+z3+9U+X6/Q+X7/Z7reh9uFN6CFLOyI+UL 8yrDv91dx6I29jtl+cfAcnDbg13f+5h8fh8Nex/NcBN5XZo10uczXKyFW0/Bw564G/VM/A9s36FMkM/m V+61ey9elnRqx/vL32Ggg1Ynd4a7o+iP8sphC1KEpS Pe7+EV2gc7Jhi2+aY7mlE59JAHeZ/zK/fJza+8FzIqNI1M4eWZ24NV/bj58sqj+H7YMKbka035J1+369 kK/BkR96Rp+1F3W8xajP6W5cBs91w4r4fhIzcDu/125itgH3c64S225v1XtzCno43+1qIho8F+jvKO3w /RK39xJL2R7Yd5tiLjk443fA74h7cMX3lnvlkoysdQ AB7yLueQio68mbGr0Zu2ilhFiy3CO2cG3c/m4ak0tcxVJm57nbc3Zc1q8ZV2+ZX/XgEes27iT3EynSIX RLe+ev90To4va89X6Mg5WV21w/gkBm1hfZwwr3u4mC/q4/YKY1OwyKXIvW/s5NT3+vZBoJx7Ab+Ur1u+ +jO0iWABfa12el/ONcoLygvKK+qpqL+ecNB3h74Xew Cv+YZcNI1s+4hf+fVC+uXHPqvF7ti2VWBSlksWIT/8Hye5zaWTExi9Rpiqy0zr5Exg65E++r79XKP+gX h0qp1d9dt4c91i8w968/Re3+fR9+26V9+3+9WiylZ1kNBI2j5U9fD95fiw+z1/X/d7/k8qaomRW8xtyh aWT4yYgloE454GQ3ZC+4P+gMaika2Uy01ur+0wtD+o rMF03+9Ilz+DEDHtBW7PWnTBB/33+49HPym6fz6Xk5D9V8+c60fB3o+7E3E8LLeaB26kvVh5qc/vTiI9 vnq5EthwjF9J2109Dda3t2G6L02tQ7/6PGvY/R3e6V9tRrc0e1pn/QQual928E24N+pNJkjrw7Sn21Fk 3+/oBjZBC588+yPf/FZPF6goch9Py45YAiy+PzlyRX aTqGP0Bt20b+FzuwwugU7yab7LcdN39myi+y9s/6fepEnelyu9LsqIUu/hQGbI7Wc8TZ/fd0u2tA3pS4 Ok2mzLQ99s76ryJ3I4q/A9WbJZWlPNp28/Nb3P8/A/MD+K/d873o4y9ve+/7hCY1CYVyJT3/bAylY3hI 9Fb+ON465xHO6cDeh+TPk+z6OU/Qpovx0A2mzy0azB I91ZsfU7zn7wg+ddg9EXle3C/WTbyX4VLbaI1oa6+N+cF3S0QO3axA243L3Qgclr2ctk3cGO80sg6tNX 99xv0wAE67gcf1tJmLEd/00xOk9NhZc5c/CIl5hfpXBy6497fjq68DG7tlp20+wcVAqEero8HV+q87FG kx90F/L39ol0NPsZtgErd6CbFSpQKjMI2x7Ao/q77T LIPs/jON8+z2NvUT/RlpKiZEx2S2G7yxaIeYWhHO32ceVmmGPU6SbZFeYMK3hatGXDIXnQwJOTeBXbJG HQuOLhbGogDbjWOl8RnUGig3WuvFJVYzKVZktRIKOANSEsXjXLBUjqTw/gzHy6eezQu/s8c6omNWfQru RZiTQijUg/JMWShKY6LR4iXSYWJSCQlcbGeqRFXoJL 87sKAWL73wrxII7ZlZzfIY1YdJiWUq3AEfdQktF8OjeOKLJzb8xPqKuPEoRBsTLpagJBfGXAjtDVAV0f EYZbhERniucm7D5ikn5e3y7Sk5gQ0uUg6/XYZnO8IWEuyXru1tMCUpZVyFVtaOn4snzz0Ipvdi40T8+2 tnp4iTEkot5MWojylni4z12MbT7klxC4rvd2Gk/N+4 DSF3BQYbVChJLpn0zWVtlAaiqzeZSpGEnGttcTX6LOSsKY6QLkDitQngmGGSup2mXz3eu4GqL75UAYiJ UUIe70J5j+DKU7HABLF8MYHOPIbDNmlHrgP2yKzGNNC7PvuhK+aPVbzNqvQlsXHt7GiXJiT/FL95KEvv /pA3ToZuJ9GfYHN2Y1ChU71PC8Mc4fhGDyxXJJxYTP B3qGl2RZaxthiGwO1wL3Vh2FATEFFESWVQUXGJFy/yHDWlm0HYqxSDTQtl/8R8ZWITaDJ+oEzyme+ApE GpCUvWXzMuXW1IBDdmCGQ7x6/DbgiW6bdAZ6kKbnUY0Xt6MoTM8VQ2/fyDl9c98NcK92sZVebjIevzpL PpB4JVZQj5GZeJ71/Jdm1PZIBDZZmPNn7g5bAny734 MfpSJWYokSSQAp1EJCG5KrO/IECG7fz1U62mduLSdJuPvJWFZvMsxQv7HADAvGQ6CzACcnxRrQeJJl9V doqManCgBZVemLotpeLfvKPDXlONiebgEEkfchPFnuyHEULZT9Z/HEVoVQ9KISA4U1ypTqPkoYD2lgvc or3UFHQVELRjClSKNIQt7POuLqRMWW8wbnYrAagq6B [file] /G5CZoMT1map/61rIEBR1jP/hwhOMoRMSU3WH/p/WePD01pG/A7FQRvNY5J059hLbZLssAs2r+zB/master ship 5bH+G2lrpg4mq+aR/aw733A+Okmwmz8OLbCy/mfb51H+x1/fw++v37f9gm9C7D59u4oxxiiywoSelBT4 /M6SiO+dHwJI+S1ciKhkUku0+L6mqVcsQnaY4OxmIJ +/il9I7vNAJGSNqJK0o+4R/ZwX1IF1v+y/u61VNMoK1zAu/1m82+BdYa70D5s4uO+02HJ7kcx1sX+Iyq L5w8k0rK07Vdt0vCpz/WLuks3Mr4LxxsDCj82UwezbWNcaxDTzQEkz1cO6KkdHrtvPo4Nj40Ho71hVx6 EI5dbYvC+xdu5EjFxdMEWwoLQkwsTf0Qendnsdc2dq 4XfOGNHQE/F6xG24ALYtyRbhTLUt3uyiy4S+0Xg+0VJPTKIRaUSEiBBRIkqkE+gEHIFQJ8VsRIJ8mRi2 5EUJEOFLNAnzHZEMEjr8mh9b0mw3IjPMpMcBItYNaQ+oETEiA2+i0VcSzxVoD8nD8RTxdAVUuk4lww59 4nZkZfClHoUjPpVjXxLrBbBbQ7PAZl7jJWxMZyxMfa i7QvLcq65LdKfjvc09whTmQ7XNcVEjnxPtVIXZDLH/QI0fudLQe4HQm0BM+3GxieLXoxTc9OeTm1HSFc vn9QDYyEE/s6Xf+CSBLdO82vTPILRAiHLBTuBVBU6u1fW4pQDA1ETXlCKHkKvkj0XRPprMKiQOBaiJps LIcw6GUeiLPfZ7e9ggSQi/f20RvyGz8jsF9iNtTWKe lOd2L9sNTpjPXUDf9uZGUQY03NA7r+4mRS61GVDJnDWspMubW+nGEmfIi0rKDvEaJwQXmZWcZXyWR1XG Xe35DIOhfSU0dGjH0Aye/RMvnjT9jDeLYw4bXX34QrRARC7jmlpwedAehm9g3l++u5TAq5ciHJjD9eK8 Lr351mM0oi3g7hGdWw27eAogWA+Pm6Ue5Wl9p9neZ9 17dZkTFX/v+Gc+9D67/1lBWZY3Ul2tcrp7SJBPu6Y0aKZGr5E7QTCgVS3pJPWv9+M69+l4OE5D1WyxW7 V36Gp8jk/uim38nA/2a0kn15y//4t7Ij+Wuo33m9qCzO9uT40JZQvp0ws2vds6Cbxp7aP+Kjc9lzFVZm 9b8XSJLK0D77S2viLQBb8g5YRtPW5V53S1ejjEPo3i 3eOfBM0X41T2gkkAUr2o1jNRAC5L88Q3fiPZAe7i9mMSEO6L18U6yuvCmd4b28E8HK3Q44F0wryBmz8b 56R29RdCxcX38Ijb3J/rH//Cg5zcX/+Hv/XUM05atf6nmNQI5cMO5h2/Nui4spE8UYnniBY8t5vhYz3Q 5Ewg89s3wyJdvKrMCupNGaC5gutusEgzK/jj5q+4j4 +ucw3+At/bu+J/uj8xligiRamQt4WwjDkvYUuPC5Kk7SwbKJcQ17jf2o1ANz0Ap9vpjdzEEySGwdLJam 2BJ1p89h8LQoGvznfZClpDxcrfVxMIl2bqePSB1eKwxjEz5/rm7+ALfn+2B2ZaX7e746jhRLDFyWwZhp 9I4tr3sXy2loFCHnnfvJzECPhvuAfNcNa8NanHBIwr PuSUay8V4ikA+/W6+St+v+775Pu/2iuZI+TeBcjyRDMepCRhO/ROHn731+3nLuyICk5W8yZHjgOfZdOJ 02Qtrz3ig48IEwWaw66rVgF/dX+NAsYemnS+0a35v+6SrzlXeb5xIpUyFe3Eo1V/wd/FvxeVuga/gd/A R0sIjOjcvb4fzKcrZr6Sj+Ab+XQ3Jp1Ic3M/wF/go7 73Z70zvaDJrkA/gS/gC/gKvoLfwe/gG/xC56STL7gdX/XqekfPt5J/wd/Fn9eFa/Ab+D05kTyuqSLuk+ X3Rixuew399B2caj/Q9591ndArm3s29fN+63Fm3Ux1s/jrunANvo/caQgXw0anPO2lkO2D8urZ+Xlhfl 6Yn5fV/VS3vx4lKAv9gO/Bn+Li7Nq2cW/yHcw1HzjD l7QcJn9sYryFs+Dj++5v417kI5/0543+vKM/B3/U/Lb9+02c9Bw5T/wN/m54BrtL899K4FMm97xLM1JU 1CI5ki923/6qF0Hg6zFqgJ3BJVTAJTCdMlEzENwRUe/Kb+fRQc/1An89/OOp0nox6FcWoq6fSZPmQy5I Qr/T7f1m3HUD+pXvYkK/esJ/xi0zskL/Lc2vou27A0 +SU2Mz3T/wF/gL/A3+Hx8E7qcxcx/Ab+AL+AK+gq/cz21O9gbvQ/wITO1ywjf5Ia9GrjaX5C/wF/gb/F 1816+ea/UtgMuR95Tn9+918syQ9AS9Ms1RV/Jzj7ytwnh4A/wJ/sR9Sn/2+J7Th3U/25JZ55r+368L1z Vejd7KDqhjHDb6wS8Kq/LMFi21WzDtMPUzAc0Sl3m4 /Gn2VZXi3mC4gL5sLe/5SkK/ynuWvuGRPKftrl+9K1Vv040wm3cLOZK91WFyHVVt+lXrx0L/4Ue0/drq uoPfwTfwDfwB/gB/gj/xXP++3lg7Aw1dnrfHepG7EJsec2LuOTeBtC+V4MmhB6j+lXJz/epcG/gGPsbv NOWF2XA+L0duzIgpDS6X21ex/T7W91qFi+AL+Jifp4 Sk6VwmR/gGvlW/bgQPMtkBxFrhxpFllz7auQ0J0uzMa2UD2btT5ZG3XrvHv8/Wi5k30HZIj/xz3f97BX 5rW+x5X5ukikiEzgFM7ZO0qBf1u13H+gQIoKO7XS7oK+Pa1r0cjuDpaA/58Kz9tM9ct/sABpT9hqVwaB w/yQ375atuLsfcA4cuY8o6elB02GnfO00Sa2d/upLf qp+7fpVjP/QvrXw08Yaj9DqJNHh41pc0+o3V/LL2MZ1C2KBphsbCmR/l9QJ/gb/S9z6mL0384+A38Bv4 Ar6Ar+Ar+A17Yo6Ek768c4aLwfh2TF0R6OqjL/QOz0k0fnv7a/jtunANfgO/gS/gC/f8wC6xff47+B18 A9/AH+ME5MeBMxgFTbIQ10v9dvAb8Z/nx787YXXufR /gC/gCvoJf/dmDZuoafAPfwB/gD/UdoBFmM2n0nA/gb/B38V2/eq7Bx/dV9Get/ZSf9Su3TZqyrn+PPu DxMTmneXhMXYM/wK/2xllR8PH2N/yF+2zcZxe/135fe+20bFm0T4vApdA1C1H+pV3BL/uGQr/SjvZCv1 UmGmd1YhOqSoWz3By/fYG/wN/mL75saWwG5Nf6sipf axi/wdQv6smhUU7XQ/NV2K+cOMj6Ac6i8djujf/h+xq+ry3wN/ogt9VS9qohfPpLl5Yx7Jy9Ud8+L+xX XevIdb8bq3Vo3Q/wJ/hoL+gKPkvGpi7bnP4p5ExY+5XCfqWwX+hMybezY0DenX/HD9q252fN/drIr2sw CtQ1iieq+Z9D1A6vB/TbfGbtGYvE1rrN2lW4KvA5uu 7L6A6y47VpEB7IQ2/IS1gY2ltA9pD6UoH9px8O1X5m74V1R1k64d9P1x83t4A1P+3dpU/zpzrjjL2Xz0 oxC/1DC47LEdgzanE4Pw8qYB342dYY4QtS57T+1dN+jzC1yi3+bz3nW5VOO+3J9Mu1YjI96d3LzgGgWx J/7GHV68rD9Ks0LXuqhR3Stvs6T1ufu+fHb2I/mNfg L/AX+Yj1WbzwM27s3Qh6JQgRK6Zy/W8P+8X2KfyC4DtEoszgGm64mx98JDh4yeF+1WG/6rBfddivOuxX HfarDvtVh/7gi11UJu/etJ507R991X+iCEF3Xg21l0T+v4uBj+8r+L4ywJ/gT/AX+Ay7qdck/2/Xsm/0 eL5Oh0Fomp91Tv0AGuArpgo03aUsKeJNl8ApS20mQ6 9+lPDokBa06Jh5y4v/EZwJQsf0hSn4/a2DiyeBdD+0/S11G5x2fv3+T96qlaWx/triM0n66/2CFYNVw2 gyVJA8zsGK9PNB1K00PIaYiDyIFSE4/+QrNMYIVRbUVW8zCtPg+byZg84w78oQ0eEehfo+3OHJkOnYH2 2AX/Aigj41k7hrc27PeacXK/zyd/qtQ0S2WO3u7A+S X/6UbgK+4D7lT+dy0UllN/gGvuH+5U/pNvA+sF4D3Er8A/wNftkn+yf8UR2i75yhB72R+9W5Bl/BD3+K v/8of1lP/cq/XepXeQ0+vu8Y4E/wJ/gL/AX+Br/8v32W/2fVX2xsV2KMH+QSh3ZMs+qz9I0+O/gdfAPf wB/gD/BLn+yhX+X1Ah/hrHoqJOpK8pzXE8OEx1eqnE B9F/pz+SnkCrIH7Tn2BQ4T/Ok5pxJJJi1Z3gwa0H6Cih3MdqNtoy1Ybd0B5/YB4On5KD973yZU7TpyRf iWqkqXx924oHk9Eu70uF67i0H47Tr/V0zcfoH4Q/3dWH/7exwwYAcGJqh9nzg22Telz+z9lnl5GIhOP7 Ki5ijG3YKxU4E13Y76V83733jYjySYE+uvQb+y0K/c FmqhX/u0HpVunyV0x54GhmXn+MxzkI6nrQj39G2+3d5rB/9sq9WY0dfEaIOFK31S5txhJ8B07LOgCcMF GH5lemtI3v2wNYbaEXpqiCc0bTSdKSRCzFlyfw/bGyWdPWLjdR2/WReuwb/be13x+1z3k43WJ8X7ctC7 hf6530V9lp22WR8bSkirr0BSokvuIu/w4XoYH3I3+7 OPL4/LcWdu3fFMBWbgWZkM0HP/OD9+f+gjG826wW+5ofe+Xheuwd/g7+LrdeEa/AZ+A1/AF/V88gt89w POX8X7+/eyx250HftncR/vAltz418Xzy7ddOudk0h9u417hbe7a35GoH+Kb9rj+wa/XbgG3/js5T36L8 WfCf0q+rJwY1x2PP+6JPjen/Pa+0E50E66BllIi1Wy /Ob1xJvIZDGdt5ek8ncObdrPv5OkaW4UGrW2devchZ+6lX0eDqePjMPS+uUj9u3C8Sq7K727RxZkhSOk n1gtll0F6lO2eTB6l+pUXrOtb4mw9egCijI8z7q787pyS6ydTyxhI75vYHTf/EdiDm95imDy4TybmV8x +lX5TgBQ/A5+Bx/awfnD09ed3+NZaO+A7jcp2q4AgX UjhGlURYGUd5G4ym/rzuaFscQ9ZywTdhJg7He4Wo9HI5/R4tlyLvaY/gB/gj/BX+Lj8JExooony88X/c 63g2BalG/V/0O/ww11ws0xk+vhQx4RUywhXPbC3W3ZgiLxghpRosl87bl+Drc4FzwfQc4XQpGh369fYu H/YOwlPUQi/N5rWATIoAmVMLBFnWi4VZ9mPYikcmOH 175/9Lbc+lOtUW92DgF1hKjVBECr47kAgwFLXsabM8/l83O8g+rLVtfYfpCp2VYiuk5stYkld1hHsMsI 42z9Ta0G70ieJ712JrrmBt96nwalk/APSvDlwjX4+tx/XOVPGfAPjvQPBr/2YaDpx7aS/2D+ZuD3E/wJ /gJ/gb/BL//vbA6xoS760O0b8F5L+AcH/IOjKfgKfg cf7Q3/4LkGH+9iaH0Yvixt46BhcjE7vSpbeRN9LbcpxH+ddLV0CxbkiA+hiMF8RajzkR+lyZA7FwirrT +moFpeEcGzCzAJyy47cJbbE+r81tIQqdoszA/HmOoe5I+35J2Zo21g5F6Oms9e8UDyWU11/vVa7gxz59 FDJ/gL/AX+Br/Hy71h57KZx6Uo/e/kjS83lOOwhFdx FfzY/8Y9a/41pg0DUo8VI+NB3Ox4N/vdT2S734oZ6Ao3ft5G7O2N7IiM0T4x96wZ2guPxWh6ywNht1ki PpaaK8FoggA/GAx4xuPa/XNQ6esjCU4e7Fuxi6Tf1E46A/Mz/WGD32hBVYmSLEWWWODFZ5sB5pw+wbju 1VblVbruZ94kB7PuR0agorh77InN/AV+nfceY+M+dd 30kQdmVdLDYm4iDX+e6M8T/XmiP0/26kfdtpy9oiP7jQX8rpbgS+ca/An+BB/9eaI/T/Gevf31Ru6koD j3Qi8RM6JSm6n/86rzomPVedGxOvgdfAPfwB/gD/An+BP8iC+Oe3z2ykR4e6Kz/A0q68sKs1sa5/zkCP zRNft3Ya9Jt+CHPSfuX/psHtqQeQ4phH05BI9jnE4K 2K/WQoMc1Al8Fd+bsF/Kz7s3grkIIF+UH3box5N5vcUChmFZv+E75Xy5Jz0i/gPvU/arCf/vATiL75wf 3A1xMpvuJa2p5rnqlb2wm1ceQ8T3cl9gzV7wfi4Gbt/1v7oN8AJ/W6wx3Laz6Ch9Rt5Gd+EU3Sr7K/wJ /gI/0iAbRw7nf34kyovOAtb06WNq921z/dEM/+C5Bl /BV/A7+B18A9/AH+KD1Uz9X/wF/gJ/g1/2jRn+wXNd/DJCPt7g+/cNmbh+mx5GdOSme802Zf5Ue265fc 6Vjdsy2rPiyQ97fv8bhbHm9vg5zzW9/nd7NZ/l61H+qabWK749j67rSzxt2s/0RLEHmnLl1L5voF8ubU RO9w/GXnLe+hP3AwtmN5V/cd76lR/420bhe0e5v/PW s8954Xy2ptE8uT6X8/im1BBV6cc3lWbJkaNr7CPhgN8+/tfJ1o4ekMbB4xScmH1sSMz1ZoM/Tyv/wrTy d08rf/cM/+C5Bh/fF+hrI580G1wjbbfaJb8Hz8VxqN/G+2B+IqETetNJx3RciWbz7Q2dq11Jum/gd/AN kTNd2yOEs44H3ZssqM9bcbHfBgrWlb7/L698m1ak+L 3T62i41Sp+Ol7XJ5agnv/X4HfwO/mNcyHG5UsH+DB4Nc2Dn5Z/3Q530J/mqvMMM/DhwD9fS/UF2pFtU/ gKfge/g2/gG/oNqtFTtqbt8K/OVfELM/2DwS9/2Whra7c5Dre1mcR+wQn/4IR/cMI/OOEfnPAPztCvYu vqPc3oegqaaFanY+4zcP8J/gR/gY/5vt1Qxyu0EqZq pU+uq+Bf6xPqm63dS8+r/L/huw1Wiig/tK7yd6+lfzhewF3pdK+tsF+TyLl7gznKQ+xXM/i+Da6mIb5l Yb861+Io7NyrU2H40tdvpDi3HyjoqnT7So5Bu+Ar+G32Vw0Hc+LF2Xz9E/wJ/gJ/gb/B38UP+5WvWSvs P0or4z2vO52qCol3cl0x6aUlg/A7+Aa+gY/3ue1bhc HJc980+Pi+yM+nXV4D1H4LfdA0IIiC9Wq4ydJkJR6NqF/vuQZfwVfwO/gdfAPfwB/gD/An+BP8Oj+5tO t9T5mcf1Tph1gMcDW7Q/zOpqQhjZovOQqLi3ZvnPyjVh1n9XxHDOiwauC+feF8+6G94vQt5Ynl8fxSiz 9De3G+rPA3OoAo+R0O08x3wnbaJrftR4Levs8Puifo ft14WkuZWDmQdrJdhB/gT/AX+Nw9cebkL4+KL6tQ6Y3pw74b/HhB6ht1DN+POp+xAfxtc6H+d4V+FfN/ kr4pDKexX/AH+DM8NP7cTvy54EB+taBfLcQPrln7/TXLvrFmA1/AF/SP30FiW+4uiT1q9ShG+tWCfrWg Dz6jZyw78WL+kdPbasvPw1d2eRiqvs9B/AZ+A1/AF/ NIjWon7qOj6KH7WU+9Cca31J3Y9mf4Dc/Hutu5eRF+93t7qIdYo6PEwHg/Wx6OYpetUh+3XL+KGMnl+l Dy6ydmBi3F9+/j27l+PZ0DcoByvU1G1ks6Znjlai8UFiiofmDu12pAwzpBZuh394r1pnp/8rfJzGs98a 7NJ21Uos7pw+i6yd2UfTvc47wfJSx1oe+Pl/T335ef 3/K50Sx8Urix+0ezJSbo23eiT6dHqBx00Pp1f94pDc0045kFc7FgHC1btW/uq+zt+3v3oP0F999DBm+D X/y09zaywmmFcrP/8snsVvlVdhPwFfyyt+3T98Z2c/wqO/Srcw3+AH+OO1Ir2N/wF/gb/PIfbSn/0Zay t2+h55Au6nkyVc1amirJA/mvNvJfbeS/2sh/tZH/ai P/1ZYB/gB/gj/BX+Gn7Js3KW/zEz5ucaxj17jRs/aqgI/2KtqraK+riKx0JeqySZ6iESi22sN0s73dA/ AX+Av8mp+31vy8e+1/d6/9/b2Ot9X4ixqkgoPTqyrsMb+k1DdadPhtEy+6K96gxpq1rw/wB/ixH4z/rf 8mKarS9To0U/za/26r/e+2C/xKufDeyCnxNXqYq4Fn jXoiYtgz85rUg332uP6be1hi4V/wN/yLd3IM8wb8iFUn1GP8Czchgn72YJauw+xR/pQN+9WG/WrDfrXH AH+VW1JK4g11rrRje+N2Qkunjp956E0fln+vgXS45Lfu/DqPtEO/Otfgd/P96zA9xA4O5ju5SaF6ge6L 9H4q23U6F4h95c7O/zM50ytqDq83Cj1ZZ+Ar+Ap+5d [file] PWcBO6bXITWrxgKDIFxDBmNOJWLWTFzPKKKfG1a0MJ WKd2dbg/LMLGCUDDScWwAqCTgWwQkEFQeOG4x1RXnmtBpDjx7Nek4oquwRAtfaxVB0T2w1JZpP2jfGyg 5NorCyFydiiG55BPaXl4frhsqPpgs1j494ADkUHWU5FtF+YRB7IAZqAPz3di3X9qbcmK7U4U86YBS/sx VXtaOj3kGHObtlxC5Xau3WWeHH2+qcjSY3Yf/lfnQS T/024Vwte7se0EvkdTw2ZZkr/iZRj+ULm4T6wwU9vPluBZ+w5ZvA4eVhZVZfyxUbU1E4kmdG/EyDeuKg zhu1DPl29P/+5xgNm1K8nyZm//KjQ07cGa0g88v//pJ1v235iiMJHP/sl5/+8R++//4Xf/Pu77djgyrm yy8/1Uij71X++x7zpql2whXm9NnDF5jKv908i//tN9 /9rK4zalV0CpQu5mu174uN/B3W35p1yt+/+fWPXz59+fzxq8+/+ObrT99+/Lr2t126+Ycfv/nyjz/7/M WvPa8gZm3yMp23/2kk92f8+eOHz19++Obzbz99+5Pd3Mpojgt2p4s4MvN21Kk6286mfad34Lt/+OWXv/ r4h2++/PLj+6+//vTjN99/93rqr3/4/OrME86fa+eP 337+7vWQr3/t9flzZh4+/le//vbz//75x//mtveqfd/2+y+//TxXE5bq2+eP775/ve+3H5+//rv/5uct 2/wPv/z8nd/30w+qqhUk2jdFy+//9uPSn/7x3v6ddbn85aJsntddu+d13+a77z9+/Zcyjqkmp69y++7L x9e//VKs560++KiYP6459ci/+e4X/81/3rrE/Z9f/+ mP//pvf/7D7//l4//4Xx+//ebbVzt/+Pzp27/6+NWrI/uz18fboZ7833/+R1v/9Jcff/rjx/h5+7m/kX y30JrkN2/+1X+DvYwo0JpQ+8Zodu8gcJEdinN8nwG//Bz7wnFCjsj4g/8PoO+SHnD/4lXQN0uHk2yei8 /xpaePUAGr4qcTTqbM5wnlC7+07go7R7O4fNw3Ok/8 /l9//+c/u7y++nh9sW+//ebTrz5+/en7b79/a6y+/VeJ+W/md1yExmdw/+7h6tVZ/+TTgx8YjwG0RIa+ 1st/+/s//udff/z5d//5+0x9i8yFc0jnm//oD/lFfa4o7w2Teb/w1z98/Nsf//P3f/5/fvfv/45ox1ut bx/hayD165e5jo2+hx8//uV/vt793/70x5/e3rPP/e T2cYsH+/dredge pipe installer//7L//Ru40dLd43/2adfuq3y0Nvjed/YfKTl3+ooJe7dLE0w/bTtzrYr3/2w8++fPzu// 39f/jHydA8F19qu+l0M3sOwogI02mF+V9//qe//Owve1i884//4Xf//vaF9xv+9e/+5z//7j/+7Xd//K 85kZBoi1/+9IevfoKeF/72T//9oSoA8e8CsOFKU/7l 9//8f/3x3/075JYgXw4H5r/ffvruF3/149fff/nyk//xoh3xP//xn6/e8y9f/csV8264/88a3ruM+ Zs5tv/7d//n7j/bxp3/3rFf00FV2BIeq47N1P1kk3+Pz6/ql03z+iNglKu62FNHzSMd+/+EXn3+4ges2 tY/01dgax03x3Xz0tk7fJL/yfPL/W9nVJMODAE8ra1 RyAGMkBaYuLX7keqbpTVWiSB9doav2G4FqrNwgHLoYYWKvOr5whACtXJ8RBTN5RDmyAPFxQEErU8WxcU 8yV60byPCwBoOoEOFBTL4ApwA0NNB4HRT8JPUpVfGzFOBwQN93SRUoAOLAMk8ywcBcNmoCPiAkDA1pmq z8B6W2vTPcO823oIdainArJA4Zm5CyeRKrIV1JuPIz gHKvTLYnHVXbL2qrl0PqQWydFCHZTc1wufKjPinVFhTuMD1abet3L4I2kLehlxZeUJTUGVggHqnoIF0w bFqotvbyP7XgsOAzLEYhW9UeUESpa58FJAJcNVgBGkYsJhPvMrEkSWHpEKaoDoRpOFZjRKHiYANoQT0F lHXhIKPgZEMWTKdoVlydRWNboK4hdPAVe0AoYTWEO9 3ZUMgjB8QHKJ5CRMWcPTcgZeF6FxqlI7S6HzanS9SpZN3DV8EcUCSwEHDRFHDckwEwCU8CtdJrcB0vSE qJRMYUWSrSCLgoCiV7x51uglRKIRMeGBVkRCytGVHwMWXzCTZcWVMwZIRtLWQyWLBdHT7BS9VvPZIaUK RYBJR2z1HmVDWvhdmpwzetFb9gfeSuMmh+PgoxIDAg k4ZxGIlvA0N6gEBwY8BrZ3TcVT0VcVGlXQmcVNAsQIKnVQDuJ728gbYfOC2+IQ2ct1SsYlxrODHBRTRa ACFkSAQbKWY1PhLyXVToTIEyMYAfLxJ2MiLsUmXIRYSaKRF6IFm6IZVtHMGlOFIsGOiuGXPzUIZ6ZkOn OQHiMOIoHO1lWaGuYGKxXgm2HnUdWUHyRZSpwxIWKP DzYDInPCGpCJH3CLEpSOUeYCkuPAQxKMGuZTG7ZHWmPRFyRV3bLgJuAYLtQAPyVenqVJNpZAYyhvZUKS AmAWSwWXL1VaRuZKJkOUWcJEflHULvCSUrPoz0QHWcWREsMP1hUdLuECPcRCI4ATllCAVfNHTdkgQJVI AwMDAwMDUyMyAwMDAwMCBuIAowMDAwMDAwNjQxIDAw DFEhII3jHqHgBYTeOQD9CGRnTQQnAWOwbnCVKOGwGHXhBTo2TIWnEVEuAHIcFHxgOADlOCSxYLN8QBOh EZObXR3uUpOdOTUyRDYfTTNbMTDqHJQwwdFPWPHlTMUhNNU1BFGtGMYxFMUvNToiMRIiRZSlDtz9YFIe HTObWS0tPiZhLVTvOCR0EEOcFOInCFExtgMZEZZtVZ G0GIJ2LXDkORPqCSZuCSfwJCBzLKZcDkI4ANWoOHXqOG1sVuVmGZXqDXG3HxVgKFNaXNQighBKUNCfXW PcBAR6EdIhUBQvPHShQZvtRVNzYTJeXTChRWM9CZN4ZOCvGiQbNJlwGMUDUQgQQ4QzzvUxAuYAB1baAd 8fAwQvNGSGF8Uha6QqWENaGGRTMj8+ZaI5YCU4qBYmAad2QNW2PSehFDOYKb== ID Date Data Source [id number] 11/14/2019 01:13:[address] [facility] Name Value Range Interpretation Code Description Data Sudha rce(s) Supporting Document(s) Glucose [Mass/volume] in Capillary blood by Glucometer 119 mg/dL 70- 140 [facility] ID Date Data Source [id number] 08/23/2019 05:54:00 PM EDT [place] [facility] ([facility]) Name Value Range Interpretation Code Description Data Sudha rce(s) Supporting Document(s) Reported Physicians See Note Reported Physicians [facility] ([facility]) Note: Reported Physicians:Ordering: Harriet Duranending: Harriet Marie ID Date Data Source [id number] 08/23/2019 05:54:00 PM EDT [place] [facility] ([facility]) Name Value Range Interpretation Code Description Data Sudha rce(s) Supporting Document(s) Thyrotropin [Units/volume] in Serum or Plasma by Detec tion limit <= 0.05 mIU/L 2.296 uIU/ML Normal TSH [place] [facility] ([facility]) Note: Patients should not be tested for 72 hours post fluorescein dye angiography. A false depression of result may occur.Responsible Observer: TSH TSH 300.5500 (A) ID Date Data Source [id number] 08/23/2019 05:54:00 PM EDT [place] [facility] ([facility]) Name Value Range Interpretation Code Description Data Sudha rce(s) Supporting Document(s) Deprecated Cholesterol.in LDL/Cholestero l.in HDL [Mass ratio] in Serum or Plasma 4.3 Normal CHOL/HDL RATIO [place] [facility] ([facility] ) Note: Responsible Observer: CHOL/HDL RAT IO CHOL/HDL RATIO 300.4700 (A) Cholesterol crystals [Presence] in Stone by Infrared spectroscop y 229 MG/DL Above high normal CHOLESTEROL [place] [facility] ([facility]) Note: Responsible Observer: CHOL CHOLEST [place] 300.4350 (A) Cholesterol in HDL [Mass/volume] in Serum or Plasma ultracen trifugate 53 MG/DL Normal HDL CHOLESTEROL [place] [facility] ([facility]) Note: Responsible Observer: HDL HDL CHOL ESTEROL 300.4600 (A) Triglyceride [Mass/volume] in Serum or Plasma 107 MG/DL N ormal TRIGLYCERIDES [place] [facility] ([facility]) Note: Responsible Observer: TRIG TRIGLYC ERIDES 300.4300 (A) Cholesterol in LDL [Mass/volume] in Serum or Plasma by Direct as say 155 MG/DL Above high normal LDL CHOLESTEROL [place] [facility] ([facility]) Note: Responsible Observer: LDL LDL CHOL ESTEROL 300.4400 (A) ID Date Data Source [id number] 08/23/2019 05:54:00 PM EDT [place] ([facility]) Name Value Range Interpretation Code Description Data Sudha rce(s) Supporting Document(s) Hemoglobin A1c/Hemoglobin.total in Blood 5.1 % Normal GLYCOSYLATED HGBA1C [place] [facility] ([facility]) Note: Responsible Observer: HGB A1C GLYC OSYLATED HGBA1C 300.0800 (A) ID Date Data Source [id number] 08/23/2019 05:54:00 PM EDT [facility] ([facility]) Name Value Range Interpretation Code Description Data Sudha rce(s) Supporting Document(s) Albumin/Globulin [Mass Ratio] in Amniotic fluid 2.3 G/DL Normal ALB/GLOB RATIO [facility] ([facility]) Note: Responsible Observer: A/G RATIO AL B/GLOB RATIO 300.4100 (A) Albumin [Mass/volume] in Synovial fluid 5.0 G/DL Normal ALBUMIN [facility] ([facility]) Note: Responsible Observer: ALB ALBUMIN 300.3900 (A) Alkaline phosphatase isoenzyme [Units/volume] in Serum or Plasma 124 U/L Normal ALKALINE PHOSPHATASE [facility] ([facility]) Note: Responsible Observer: ALK PHOS ALK STEPHANI PHOSPHATASE 300.3110 (A) Alanine aminotransferase [Enzymatic activity/volume] in Seru m or Plasma 51 U/L Above high normal ALT [facility] ([facility]) Note: Responsible Observer: ALT/SGPT ALT 300.3100 (A) Bilirubin.total [Mass/volume] in Serum or Plasma 0.5 MG/DL Normal BILIRUBIN,TOTAL [facility] ([facility]) Note: Responsible Observer: TOTAL BILI T OTAL BILIRUBIN 300.2700 (A) Urea nitrogen/Creatinine [Mass Ratio] in Serum or Plasma 35 Normal BUN/CREAT RATIO [facility] ([facility]) Note: Responsible Observer: BUN/CREAT RA OPHELIA BUN/CREAT RATIO 300.0450 (A) Aspartate aminotransferase [Enzymatic activity/volume] in Serum or Plasma 28 U/L Normal AST [facility] ([facility]) Note: Responsible Observer: AST/SGOT AST 300.3050 (A) CA 9.5 MG/DL Normal CA [facility] ([facility]) Note: Responsible Observer: CA CALCIUM 300.2200 (A) BLOOD UREA NITRO 14 MG/DL Normal BLOOD UREA NITRO [facility] ([facility]) Note: Responsible Observer: BUN BLOOD UR EA NITROGEN 300.0350 (A) Chloride [Moles/volume] in Serum, Plasma or Blood 104 MEQ/L Normal CHLORIDE [facility] ([facility]) Note: Responsible Observer: CL CHLORIDE 300.0200 (A) Anion gap in Blood 15 Normal ANION GAP [facility] ([facility]) Note: Responsible Observer: ANION GAP AN ION GAP 300.0300 (A) Carbon dioxide, total [Moles/volume] in Serum or Plasma 26 MEQ/L Normal CARBON DIOXIDE [facility] ([facility]) Note: Responsible Observer: CO2 CARBON D IOXIDE 300.0250 (A) Creatine/Creatinine [Mass Ratio] in Urine 0.4 MG/DL Below low normal CREATININE [facility] ([facility]) Note: Responsible Observer: CREAT CREATI NINE 300.0400 (A) Globulin [Mass/volume] in Serum by calculation 2.2 G/DL Normal GLOBULIN [facility] ([facility]) Note: Responsible Observer: GLOB GLOBULI N 300.4050 (A) Glucose [Presence] in Urine 83 MG/DL Normal [facility]COSE [facility]) Note: Responsible Observer: GLU GLUCOSE 300.0500 (A) GFR > 90.0 ML/MIN GFR JOE ([facility]) Note: Stage G1 - Normal or high kidney function The GFR is an estimate of the Glomerular Filtration Rate. It is an aid to assess a patient's renal function. It is not a conclusive diagnosis of kidney disease. GFR normal is >=90 The MDRD GFR calculation is considered valid between the ages of 18 and 75 years only.Responsible Observer: GFR GFR 300.0410 (A) Sodium [Moles/volume] in Serum, Plasma or Blood 140 MEQ/L Normal SODIUM [facility] ([facility]) Note: Responsible Observer: NA SODIUM 3 00.0100 (A) Potassium [Mass/volume] in Blood 4.8 MEQ/L Normal POT ASSIUM [facility] ([facility]) Note: Responsible Observer: K POTASSIUM 300.0150 (A) Protein [Mass/volume] in Synovial fluid 7.2 G/DL Normal TOTAL PROTEIN [facility] ([facility]) Note: Responsible Observer: TP TOTAL PRO TEIN 300.3750 (A) ID Date Data Source [id number] 08/23/2019 05:54:00 PM EDT [place] [facility] ([facility]) Name Value Range Interpretation Code Description Data Sudha rce(s) Supporting Document(s) Choriogonadotropin [Units/volume] in Serum or Plasma NEGATIVE HCG RESULT,S [facility] ([facility]) Note: Reference range is Negative "Extreme" early may have low levels of HCG present. If is suspected, repeat testing with a new specimen in 48-72 hoursResponsible Observer: HCG RESULT,S HCG RESULT,S 300.6001 (A) ID Date Data Source [id number] 08/23/2019 05:54:00 PM EDT JOE ([facility]) Name Value Range Interpretation Code Description Data Sudha rce(s) Supporting Document(s) HCG QUALITATIVE SPECIMEN SERUM HCG QUALITA TIVE SPECIMEN [facility] ([facility]) Note: Responsible Observer: HCG QL SPECI MEN HCG QUALITATIVE 300.57881 (A) ID Date Data Source [id number] 08/23/2019 05:54:00 PM EDT [facility] Name Value Range Interpretation Code Description Data Sudha rce(s) Supporting Document(s) BASO # (AUTO) 0.06 3/uL Normal BASO # (AUTO) JO[facility] ([facility]) Note: Responsible Observer: BASO # (AUTO ) BASO # (AUTO) 100.1500 (A) BASO % (AUTO) 0.5 % Normal BASO % (AUTO) [facility] ([facility]) Note: Responsible Observer: BASO % (AUTO ) BASO % (AUTO) 100.1250 (A) EOS # (AUTO) 0.04 3/uL Normal EOS # (AUTO) [facility] Note: Responsible Observer: EOS # (AUTO) EOS # (AUTO) 100.1450 (A) EOS % (AUTO) 0.3 % Normal EOS % (AUTO) [facility] ([facility]) Note: Responsible Observer: EOS % (AUTO) EOS % (AUTO) 100.1200 (A) GRAN # (AUTO) 8.96 3/uL Above high normal GRAN # (AUTO) [facility] ([facility]) Note: Responsible Observer: GRAN # (AUTO ) GRAN #(AUTO) 100.1325 (A) Hemoglobin [Mass/volume] in Blood 13.9 G/DL Normal HE MOGLOBIN [facility] ([facility]) Note: Responsible Observer: HGB HEMOGLOB IN 100.0300 (A) GRAN % (AUTO) 69.1 % Normal GRAN % (AUTO) [facility] ([facility]) Note: Responsible Observer: GRAN % (AUTO ) GRAN % (AUTO) 100.1000 (A) Hematocrit [Volume Fraction] of Blood by Automated count 42.2 % Normal HEMATOCRIT [facility] ([facility]) Note: Responsible Observer: HCT HEMATOCR IT 100.0400 (A) IG % (AUTO) 0.5 % IG % (AUTO) [facility] ([facility]) Note: Responsible Observer: IG % (AUTO) IG % (AUTO) 100.1255 (A) IG # (AUTO) 0.1 3/uL IG # (AUTO) [facility] ([facility]) Note: Responsible Observer: IG # (AUTO) IG # (AUTO) 100.1260 (A) LYMPH % (AUTO) 24.6 % Normal LYMPH % (AUTO) [facility] ( [facility]) Note: Responsible Observer: LYMPH % (AUT O) LYMPH % (AUTO) 100.1100 (A) LYMPH # (AUTO) 3.2 k/uL Normal LYMPH # (AUTO) [facility] ( [facility]) Note: Responsible Observer: LYMPH # (AUT O) LYMPH # (AUTO) 100.1350 (A) Erythrocyte mean corpuscular hemoglobin [Entitic mass] by Automated count 29.1 PG Normal MCH [facility] ([facility]) Note: Responsible Observer: MCH MCH 100 .0600 (A) Erythrocyte mean corpuscular hemoglobin concentration [Mass/volume] by Automated count 32.9 G/DL Normal MCHC [facility] ([facility]) Note: Responsible Observer: MCHC MCHC 1 00.0650 (A) Erythrocyte mean corpuscular volume [Entitic volume] by Auto mated count 88.5 FL Normal MCV [facility] ([facility]) Note: Responsible Observer: MCV MCV 100 .0550 (A) MONO # (AUTO) 0.65 k/uL Normal MONO # (AUTO) JOE ([facility]) Note: Responsible Observer: MONO # (AUTO ) MONO # (AUTO) 100.1400 (A) MPV 10.4 FL Normal MPV JO[facility] ([facility]) Note: Responsible Observer: MPV MPV 100 .0950 (A) MONO % (AUTO) 5.0 % Normal MONO % (AUTO) [facility] Note: Responsible Observer: MONO % (AUTO ) MONO% (AUTO) 100.1150 (A) Platelets [#/volume] in Plasma by Automated count 363 3/uL Normal PLATELET COUNT [facility] ([facility]) Note: Responsible Observer: PLT PLATELET COUNT 100.0850 (A) Erythrocytes [#/volume] in Blood by Automated count 4.77 6/uL Normal RED BLOOD COUNT [facility] ([facility]) Note: Responsible Observer: RBC RED BLOO D COUNT 100.0250 (A) Erythrocyte distribution width [Ratio] by Automated count 12.5 % Normal RDW [facility] ([facility]) Note: Responsible Observer: RDW RDW 100 .0700 (A) Leukocytes [#/volume] in Blood by Automated count 12.96 3/uL Above high normal WHITE BLOOD COUNT [facility] ([facility]) Note: Responsible Observer: WBC WHITE BL OOD COUNT 100.0150 (A) ID Date Data Source [id number] 08/23/2019 06:24:00 PM EDT [facility] Has Patient Fasted For The Past 12 Hour s? N Has Patient Fasted For The Past 12 Hours? Y Has Patient Fasted For The Past 12 Hour s? N Has Patient Fasted For The Past 12 Hours? Y Has Patient Fasted For The Past 12 Hour s? N Has Patient Fasted For The Past 12 Hours? Y Has Patient Fasted For The Past 12 Hour s? N Has Patient Fasted For The Past 12 Hours? Y Name Value Range Interpretation Code Description Data Sudha rce(s) Supporting Document(s) WHITE BLOOD COUNT 12.96 10^3/uL 4.00-10.50 H [facility] RED BLOOD COUNT 4.77 10^6/uL 3.90-5.20 N [facility] HEMOGLOBIN 13.9 G/DL 11.5-15.6 N [facility] HEMATOCRIT 42.2 % 35.0-46.0 [facility] MCV 88.5 FL 80.0-100.0 N [facility] MCH 29.1 PG 27.0-34.0 N [facility] MCHC 32.9 G/DL 32-36 N [facility] RDW 12.5 % 11.5-14.5 [facility] PLATELET COUNT 363 10^3/uL 130-400 N [facility] MPV 10.4 FL 8.7-13.2 N [facility] GRAN % (AUTO) 69.1 % 42.0-75.0 N [facility] LYMPH % (AUTO) 24.6 % 20.0-51.0 [facility] MONO % (AUTO) 5.0 % 2.0-15.0 N [facility] EOS % (AUTO) 0.3 % 0.0-11.0 N [facility] BASO % (AUTO) 0.5 % 0.0-2.0 N [facility] IG % (AUTO) 0.5 % 1.00-5.00 [facility] IG # (AUTO) 0.1 10^3/uL <0.5 [facility] GRAN # (AUTO) 8.96 10^3/uL 1.50-6.50 [facility] LYMPH # (AUTO) 3.2 k/uL 1.0-5.0 N [facility] MONO # (AUTO) 0.65 k/uL 0.20-1.50 N [facility] EOS # (AUTO) 0.04 10^3/uL 0.00-1.10 N [facility] BASO # (AUTO) 0.06 10^3/uL 0.00-0.20 N [facility] ID Date Data Source [id number] 08/23/2019 06:36:00 PM EDT [facility] Has Patient Fasted For The Past 12 Hour s? N Has Patient Fasted For The Past 12 Hours? Y Has Patient Fasted For The Past 12 Hour s? N Has Patient Fasted For The Past 12 Hours? Y Has Patient Fasted For The Past 12 Hour s? N Has Patient Fasted For The Past 12 Hours? Y Has Patient Fasted For The Past 12 Hour s? N Has Patient Fasted For The Past 12 Hours? Y Name Value Range Interpretation Code Description Data Sudha rce(s) Supporting Document(s) HCG QUALITATIVE SPECIMEN SERUM [facility] ID Date Data Source [id number] 08/28/2019 11:50:00 AM EDT [facility] Has Patient Fasted For The Past 12 Hour s? N Has Patient Fasted For The Past 12 Hours? Y Has Patient Fasted For The Past 12 Hour s? N Has Patient Fasted For The Past 12 Hours? Y Has Patient Fasted For The Past 12 Hour s? N Has Patient Fasted For The Past 12 Hours? Y Has Patient Fasted For The Past 12 Hour s? N Has Patient Fasted For The Past 12 Hours? Y Name Value Range Interpretation Code Description Data Sudha rce(s) Supporting Document(s) SODIUM 140 MEQ/L 135-145 [facility] POTASSIUM 4.8 MEQ/L 3.5-5.3 [facility] CHLORIDE 104 MEQ/L 94-110 [facility] CARBON DIOXIDE 26 MEQ/L 22-33 [facility] ANION GAP 15 5-16 N [facility] BLOOD UREA NITRO 14 MG/DL 7-25 N [facility] CREATININE 0.4 MG/DL 0.6-1.4 L [facility] GFR > 90.0 ML/MIN [facility] Stage G1 - Normal or high kidney functi on The GFR is an estimate of the Glomerular Filtration Rate. It is an aid to assess a patient's renal function. It is not a conclusive diagnosis of kidney disease. GFR normal is >=90 The MDRD GFR calculation is considered valid between the ages of 18 and 75 years only. BUN/CREAT RATIO 35 8-36 [facility] GLUCOSE 83 MG/DL 70-100 N [facility] CA 9.5 MG/DL 8.7-10.5 [facility] BILIRUBIN,TOTAL 0.5 MG/DL 0.1-1.3 N [facility] AST 28 U/L 5-40 N [facility] ALT 51 U/L 5-48 H [facility] ALKALINE PHOSPHATASE 124 U/L 40-140 [facility] alth TOTAL PROTEIN 7.2 G/DL 5.9-8.3 N [facility] ALBUMIN 5.0 G/DL 3.0-5.1 [facility] GLOBULIN 2.2 G/DL 1.5-3.5 [facility] ALB/GLOB RATIO 2.3 G/DL 1.0-2.7 [facility] ID Date Data Source [id number] 08/23/2019 06:36:00 PM EDT [facility] Has Patient Fasted For The Past 12 Hour s? N Has Patient Fasted For The Past 12 Hours? Y Has Patient Fasted For The Past 12 Hour s? N Has Patient Fasted For The Past 12 Hours? Y Has Patient Fasted For The Past 12 Hour s? N Has Patient Fasted For The Past 12 Hours? Y Has Patient Fasted For The Past 12 Hour s? N Has Patient Fasted For The Past 12 Hours? Y Name Value Range Interpretation Code Description Data Sudha rce(s) Supporting Document(s) HCG RESULT,S NEGATIVE [facility] Reference range is Negative "Extreme" early may have low levels of HCG present. If is suspected, repeat testing with a new specimen in 48-72 hours ID Date Data Source [id number] 08/28/2019 11:50:00 AM [facility] Has Patient Fasted For The Past 12 Hour s? N Has Patient Fasted For The Past 12 Hours? Y Has Patient Fasted For The Past 12 Hour s? N Has Patient Fasted For The Past 12 Hours? Y Has Patient Fasted For The Past 12 Hour s? N Has Patient Fasted For The Past 12 Hours? Y Has Patient Fasted For The Past 12 Hour s? N Has Patient Fasted For The Past 12 Hours? Y Name Value Range Interpretation Code Description Data Sudha rce(s) Supporting Document(s) GLYCOSYLATED HGBA1C 5.1 % 4.1-6.5 N [facility] Testing delayed due to reagent backorde r. ID Date Data Source [id number] 08/28/2019 11:50:00 AM [facility] Has Patient Fasted For The Past 12 Hour s? N Has Patient Fasted For The Past 12 Hours? Y Has Patient Fasted For The Past 12 Hour s? N Has Patient Fasted For The Past 12 Hours? Y Has Patient Fasted For The Past 12 Hour s? N Has Patient Fasted For The Past 12 Hours? Y Has Patient Fasted For The Past 12 Hour s? N Has Patient Fasted For The Past 12 Hours? Y Name Value Range Interpretation Code Description Data Sudha rce(s) Supporting Document(s) TRIGLYCERIDES 107 MG/DL 45-150 N [facility] CHOLESTEROL 229 MG/DL 125-200 [facility] LDL CHOLESTEROL 155 MG/DL 50-130 H [facility] HDL CHOLESTEROL 53 MG/DL 32-96 N [facility] CHOL/HDL RATIO 4.3 0-4.3 N [facility] ID Date Data Source [id number] 08/28/2019 11:50:00 AM [facility] Has [facility] Fasted For The Past 12 Hour s? N Has Patient Fasted For The Past 12 Hours? Y Has Patient Fasted For The Past 12 Hour s? N Has Patient Fasted For The Past 12 Hours? Y Has Patient Fasted For The Past 12 Hour s? N Has Patient Fasted For The Past 12 Hours? Y Has Patient Fasted For The Past 12 Hour s? N Has Patient Fasted For The Past 12 Hours? Y Name Value Range Interpretation Code Description Data Sudha rce(s) Supporting Document(s) TSH 2.296 uIU/ML 0.470-4.200 N [facility] Patients should not be tested for 71 ho urs post fluorescein dye angiography. A false depression of result may occur. ID Date Data Source [id number] 08/23/2019 02:53:[address] [facility] Name Value Range Interpretation Code Description Data Sudha rce(s) Supporting Document(s) ED Provider Note [facility] OHSIIs1xZuDDAjId94/HTZljWTKfl0VhYVboWSg3BBviDPLnC6BwHMX8sH1mSXJ1JOeMHdJkBbGnFxDq lbm [file] [id number]1YBtUWrHnZS7OTYj= ID Date Data Source [id number] 08/18/2019 12:00:00 AM EST JOE ([facility]) Name Value Range Interpretation Code Description Data Sudha rce(s) Supporting Document(s) Throat Swab negative Normal Throat Swab [facility] ([facility]) ID Date Data Source [id number] 08/17/2019 09:47:33 AM [facility] Name Value Range Interpretation Code Description Data Sudha rce(s) Supporting Document(s) [facility] WQFOOe0lDlAABsPag9QjYcJeEAMuAT9vevd1T1N1lDTuY7LwxHTiq6jnG4RoW8MaGXXkCLMWAF1MmQKm jb2 [file] +ebv/D3e33/oy5X77+/q9//uNnILgHui/XqAnqu+9//nN8as97/L762c+++82vPvfeDAnLjirna/ 4/BkaduzyuefXlpAIpXX7OXB6hz3NrSeB0HWNbk3UcFOiiPJu4yBKzZWiaaxMxo3FbyuanW8Djp8TkFq YvXQQbNiCbSco0ZFKgKdB5iWVpXuFgQTIhP5ThAOYk MdQ8KvAeNEDHEL5BGLWcynTrNyTrPBP+BmIyUX6nosfzZQUhq7QsDUyvETtqLAJiA1C5dDxjYJWnK7Gk wO93KMXeP1KxnmD6LMG2RAJvLsGnOXIldKJxEONlKLO+LaXvMK5ufclgSJJdd3MbTDuzGOT5uT5oJTjA MZTHAAaGCQulKlK4k54vzhZQXSUyJCCxTQ9HbxEvqW pjuxKnpZUfWYQ4HsBhDHBoOBGqDGH9OEKUNQVnEANlGKZzPYKpD3GjmExvPPmWSVIXBAqNPGwyErYxj0 I1EYOahmQGIXiVO98NWRKMRX0XJfDPWSTbOJR1Roa8ZRSyP8NqdwPbeUIjZCMIQSvrBaqdWXXlmF7ucN oeY2FnXUC9t6ViSW0QB1JhJYPhBUGZLTC9t0DfXYUo alpvutegMqTmFURcDQJvCWQjHW1Csj3ssLDbmsHgOPBDVDiiDecbIF9hgQxbffncA8YogMFdMID+PmVu HH9dql7+MuHzSMCsHvh8CZQfPUprKXNgPLAnCSFuL7knIABnIkVmNGZfDfBbCW0Aw6EeoGHdPq3hciWp YmoKeHJlZgogICAgIDAgICAgMjQKMDAwMDAwMDAwMC S3TFWfHOGaVNldRWWxHUy6CuT4FDFrTRQoEU0jPiKiHEAvEhdgRAojVYYgZCHrexANLXRdFZQ1UzB6Xp ZfXORgONTeULrgFJHsXWTjSXXmGYU1OCD9HYYwYpQoWKJkOQIyIMVmHBLgPFGabqVFCVOtBUHcBTJ6AK LuXNHsVLMaVRiiJSWvPPGkINumPIVmROPqJY8cMqJl GYFhGTLuBEvkAQDuUEWwatZRYWPsTLOzLCOrHPRzALIiWUUgTMesUBVwACVnFGFxENOoDBQcVC4eSqBk HYGvUIT7XVMoKSSqOGOxqvXRASObGLSqBYr4JRAkSFAoDTEnHBdfYZDdTBKmBYC3FDJjCZGkJH9qKgDd SOMoUSF5XhPyFYYwSMOdbmQXTFUjSIVcOHB1YfIjYV HgRASbEYwjWWAlWFDeRWgaDMWuYGEqNP5yKiEmYSVsEWJtQYcyWQHbMOKxszDBGFElLHVwNJZpWwFmQL LrLGOvRTnvBICtPXm2QOw0FQCjYTGwSY1fBiRsWBQhYJG5ISrkFLGbVAHrcpQXODOuOHMeDNhsANPoVI JdBMExWHelFKJxBLEiCXS2MOVrABNkKO5dUaKePSMz RPTcIWKqTmQ3BbCwHlJKfMDjkFxocth6ZXvvA6m1WONzDYzlCH5uqjXrHIYmThzsMw0nmGA6LEJkRuyC Jy2Up6ArnyA0ghJgClg3HttrDyFzLW9G ID Date Data Source [id number] 08/16/2019 10:47:[address] [facility] Name Value Range Interpretation Code Description Data Sudha rce(s) Supporting Document(s) [facility] IXQGUb5yZoMTRlPai2XiRdHeEJLeKV0tlyw2W7G1xRNkB3HbpEHhe7pbC6OrW1GiBWQbEQYRPT5MhJCx jb2 [file] endoscopy specialty technician+b1P1EI99Qj20Rlp8f2E8dR9L8/G5sDugjuBtC70/Y/gKqDrmXs5JsdCWhH+GqRsi1wC/e5J/Id5F [file] ApQ88IznecnAZTdXTInz4gytdt9iqwsgR+ouhgHQzs ktltQTsLkSLoDKDWqHPK3EL98cjiI+pYkR5IjarQpZtacg8GfIaFyTtpuCtoQYBQJ6PVhvIveVaQUYTe TX0yqrxI4lijOQyDyx4e20xvgeQHaSMERokpsVS+WGwHi+4dbK1RriG2PJFnO0Jj1CQXSNWqJ7xDesVd 9JWIIDkBo5dP4aiK+0SlfaLzsZzeuIGVnY/m3SUG0Z Oj0D3dhnxikdDoWXBpQKokVLmy+4LO86g3hgSoHL0rFVU8nQm8ggUghBsPk+JdX8HwIA+4nzgKbLKcjy Jv8sbfW9IqaSqoIG+kGUX7sGoP86K+kvOxXAHzQvCxrBCwdg4+vyOEWZ4FtBGc+7/94V4x2bkaxlpW// mu216XR/7+44f/6+PzD4/umYTcDfPR/eLTv/zzt9/+ /L9/fP/pl5+++sGXd5PxzPtMV7/6+ZuoSTTiYxvkvrP27kWrP8116ccskVQbG1yqLEooXi1/9eiG+7// 9Tf/4oKpF44/w6cfPn/88vPPv/zt35rpl/1nt352/j20t464w477/u6Xn37+64+Pj+++/aPIB37c+eO7 ll6299Zj21m5+kdFehDtk+Bz3n7p0IYG4Y5rgvIo7e 9++PTlL/7ly0/f/fyrTx///NUPv/u24gcqW88/6zqadK09f+8+//LTD7/+6gKQdc0/83rTl7/++tN3H1 9++5iyfb35d/v8/X+Y4mK1X1c/+8MvPn/3z199//ezb95mkt452/OX/8t/cXuNgn/u4wEv45n61ZzCck u///t2h80hny8yZ82//vFDFsLreejLP//p3//wlz/+ /t8+/vf/+fGbr75+5e27z5++/h6so5n4sT6/+uarz19//Ot/q+tf//7jz3/2aM3jP0BJAieCcC5zhbNw rze2pTgmR6/Diann/840//kjciQQNut1v1w98B784sjeIu+cX/P71U0Edt/1D+AGYg9Mm6bXe/NRvorK/F vcpv529z/Xld6Yyo7yOaWE2HU5dC2oH2Y1d0+3///V /+VpH5shlHq175cnSrQwp21Yt2ded3f8Oft/G8PGW6EmA47ZzOe5a33JmyAgxZl8kjLRHYALQ5n9//6T //4eMvv/8K014r/9hlUxq4aXVMT//630KQqv62wiw6FH/13ccf/vSfv//L//3b//gvkj9V+b58s76MG2 ePUz+6f/ru+49/+x+vvP/hz3/5mzUWJQ5KjMwCD/dP P/e3l322KX/6Jm2j4t9QO4p+jT/dQStsFA86wR3v74d4JdLV6Ajq/jhXR/umj3t3if7+fvv//S1xc7u2 0asb4Tp/66+//skTy+PVAV/zwf/8y7/+/Y/uPt/hH3//x9/+x9sX3m/6L3/7S39077/+4bd/+tsUbkV8 9+c///GLX/Y8wfeJit/+8+++UJbJjFo8/P+j/+H3v/ s///ZL131o9oC/lh4nx648lKugq/hGJ42yvSf+/1//89V4/u2L77/92d++1OZwy/e3v/zla9T8/gv25m du+v+/3ZaIgOsGHh8Bj/0/fv9RP/139n7l9oY7pLWn+6fbr/UaTT8+gy6zKARki2/4agk2X18F896178 /xxZM3QRirfE83+vLLb3/4uflzAiIRf6A+r/n/AH4X VIxXNO7wb7FzRXLmPqMxMB6xnolaCKXyMX7pold6V8TkzYycFKpGJDTxGc0ntENeYU2UXCC3TCjuJSGh VJAnC7GasD1dL56osKRuWjBwBXXZER5JlmH8FKU0ZPY5PBPmNrSsEZYkUP03TQFcNCFLPm9gpqTlXtaC XrEnXV8draq9L7S6rTJwX530rThaeePuWS4Gs7NhqV OrTK3CdOOhfZJuCOSiBWYxG1vkz7FwTIsaHOTFRy5kbdFjVfxPNnEyAR8fnsy7Q5M0nUvbjfAfSFVJEQ huLaozUJ3qgIadcwycP0VwjNWxMHLoR3OcPBUhy87ROBEtSMdRBuOsVqMuJkMgDQQ4RnryVkWcBOJcGQ DjAXBkWX9CwRWuVHRtOXJAVLkfHplrEHPqzS6rxJIQ z0BwBPUJC90ILOyfF1DUPC4AWJVuYDgoIlP7NzicZ8T8YbqaU8YrDW9ID4WjMIKbHEUCMDAljaNfVT7R hrLhsO9hJGjBQDKNXPaMUKwfWnG7o60qbuEEJPOlEPZhXRekLFEpGZSfFBJiMUCyOLDdMRFaJVChHW2F K1LqCKKeOPMYTLS6p3AsHLQtxhhgxbzqBe5ocwMmAb o+YykrGCVii8JpAOkkZ2W9zSKlN2GxX4HmFH1VeFNaTVryREDmJHMjPCBtK827fkLuHH8+MS5uq8LdPs lnHCZJYEVbZAAxLWByQVW6KnJeFCYuJSMhZPIrTkT2NzNbEnTUVRIkJPQ4EiNhVCNaTROfEDZqZItgIU MqCQc4HGltMFVlFCZzDC5lXvQrDWOoIyN0YlmvADLs YIQnfnKKLTBtTBTpBZWfGSP6GQTbTPJuMShzYAUoWEGwVGZ7JTUpRDHtXU5cMfSuBDWdYOWjHckbKBUt FFExdnEWNRFaTWIiYBM0VtDjSRDqETOpZRneJCMzCLUmScq6VJRnNTKtDJ7bFjSdIWXzTEU8BXspPOIb MDAgbiAKMDAwMDAwMDUyMyAwMDAwMCBuIAowMDAwMD ViGlAjZCJwQXYtCN2lKsMrOSVaBYQ6FEUeDGGeXAMdtzMTFBXlXTAcRIs8RJYoANEyFFKtZYppHEYcBA GuLPG2MLFdTCLpEN8kGwUhNVGsGGKyWPPcTSBcZMQugrJEWPFfOKWlXMB0IKClUQOqVAMvPEnsJKYjUW EeHaf9NZQpGAOhRY9zGgHeUDNjXWC8PRGlEHEbYKKj oaXOTGFvRXL6ZXq5NEBgHUAqKXRiZEhgLZXmMEFjTlQ6TRXjUAJgWT7wMhSkJRUrQVD8JhBjEWShAJWy voVXZADsYMClDSV4NnEpLOYmUHKvEYbwKULeREUjXRAcHYE6UWB2LTTcScEgMIojABZDUWdUX2GvqpYs NtVOQ0abUx1xWzJcNIDTG3Cmo3ByDOWmPNDCGy5+AqB2HWK8dFEoXry7MyJ2RLknNKTYIt== ID Date Data Source [id number] 08/16/2019 10:07:51 AM [facility] Name Value Range Interpretation Code Description Data Sudha rce(s) Supporting Document(s) Choriogonadotropin ( test) [Presence] in Urine [facility] NEGATIVE: either no HCG or too low to de tect, <20 mU/mL Specific gravity of Urine by Refractometry 1.027 1.003-1.030 [facility] ID Date Data Source [id number] 08/16/2019 10:18:40 AM [facility] Name Value Range Interpretation Code Description Data Sudha rce(s) Supporting Document(s) Color of Urine [facility] Clarity of Urine [facility] Specific gravity of Urine by Refractometry automated 1.028 1.003 -1.030 [facility] pH of Urine by Automated test strip 8.0 5.0-8.0 [facility] Protein [Mass/volume] in Urine by Automated test strip Neg [facility] Glucose [Mass/volume] in Urine by Automated test strip Neg [facility] Ketones [Mass/volume] in Urine by Automated test strip Neg [facility] Bilirubin.total [Presence] in Urine by Automated test strip Negative [facility] Hemoglobin [Presence] in Urine by Automated test strip Neg ative [facility] Leukocyte esterase [Presence] in Urine by Automated test strip Negative [facility] Nitrite [Presence] in Urine by Automated test strip Negati [facility] Leukocytes [#/area] in Urine sediment by Automated count 2 /HPF 0 -5 [facility] Erythrocytes [#/area] in Urine sediment by Automated count 2 /HPF 0-3 [facility] Epithelial cells.squamous [#/area] in Urine sediment by Auto mated count 3 /HPF None [facility] Mucus [#/area] in Urine sediment by Microscopy low power field None [facility] ID Date Data Source [id number] 08/16/2019 03:42:15 AM [facility] Name Value Range Interpretation Code Description Data Sudha rce(s) Supporting Document(s) ED Provider Note [facility] DKPACa1dNlXZYpAj06/MTIwmZTSvx9VtIBumZZk8QNavIRKwO6BqUHI8lC1tJEG9WTiNDgJlDqIxRtLi lbm [file] 7XGQbFj4pGlww0t/JOSÉ+xfd1s8bHjrxBeCIOfWyXfwkLWOwLoWiHFN2j5Cx4+SttsuFCbqOyK/SGWAWY [file] [employer] TE[employer]ER/7gGqTzzQKXjcRBPXLPl1rTUuyMmht1Hz1hBaylk [file] QK1BBK7cjuE0KB3RoNMvSEHjTAFlqTRfEMn4Y10zkYWuHNufCL9ESHQ+Dulce+Ok6FUWDjHYHeWCUuUdMc NEKHInQnN1PoX1XGe6AvU4FiPI68cHvifxOhZHotOL2ODA2lHKMlSMJFBY2HiSGpvP6wwmF0IOJaDVLE YnReW44llKGjQNVjEVI6MOWcOj1OZNUvG9JbzyZoiE hoxjIvVUAkZACOZM4HJBqlcuEiuGQnjKbuOM38iFgzHS8THy8KJrHdTS4emh5AsOAfAe9MKPA7BM8GBU AtABZbIXDuKOG6MEXrEfRlUOxpXOCgZAMyPEN5MNYjDPXzTA9XWcGtJSEtQwE9MLAeLBHaVWKtcl9PAV FhXUA6XKF0TUZpYFToTXLvNXepXQZlZOCmWCH8LXYy XIVuLL0YFhRlUURnSMG5EAQaOEVqNWEdhp9PEGTuSUSuRee2PoZsBLJdQGZxKPlfMVMbECY8GWk1IOFj MIPgRY3DEvTaPIUcNVAwCDUsZWUuTMCled7VSFFnKHAgWIMoOWRnEYIxKTVyHGvzQVSqBOY2WTZ6TXSw LZCmYV4KZxZkNQRcRSHoUxNzEBGpZTXtaf4VWIPgSD YmRdFeRILtQSMvJXXnWQitYEZsCUU2YMM0FUHuMYZfYP9WYwBtPUUpEPN7LfMwQLTxIZFqcm9CPHErEN GxFMA5NkUuYIOpJCMuVSegAUAyEUQ6MVsxHPYfAZGeQE1WUeHqTGGfTfR0CurzSKZjJOKqqm3XFGXxJS JhCOm6AQFaTLAaKJFcYTjqARCjUQH9BSFrRFUhELUg BK1QNfJxLEDdYkReQxtqPVWoMHBxrv6CVUGcUNXsEif6ILVqGAHjBNQnYOkqVRObSIE5HDybCOHxHWUv TI3WBsHrODOxXsEfDezdDGSoLANsnm2LXLOuMJVvHKDlWqSpGEBiAJTeJGnaVCTvBPS5ICvoIRBeDEIt EV4FRiFkKVObMkC0PHduZWGxHWCimd9QLRYjDGErNu UbCYQtJPNfLPDiPHrxGKMyOWW7KTS5ZSNcXSRjHZ0YMyReGCGoVGO5YKElNIVmQABwsr2RZXNpEZO2ZS F1KiBmSDAjWBTmBUwhOOGaXNFgGkC4PNXdKVDvMZ2ARbPdYSPySDC4YsNfGKLwQVUnwb0IXKBoEGO7Zn OuIWPcVXIyTDSyAAbkYFCaDSQ6BGX7ITZxEEZlZQ5B NxWsLLOgTKb9VYTyFHMiYKIlvn0ESAQqHUR1HdQ2OsCrGWXpCDKqNTzgSWDsOVT3UCs9HNJuVOQrFZ2W YlKkGOAtMJe6GnCeVGMmLCZlwt1ZVOSlMPE3EOPqKaApACVaDIEoCWjsYSQyWJC6FfO6RVOgYTHvAS0L YeVcNJKjVrG9LIBfEJXiWPCief3NTVLtTGR1HTszIH VuMDNnCUIsMYnbDSGoGUFdWBO7BFSmIBNmUH4MToWsECJkOnRfOzGgBVAgALRykt4LTWCgYQS3OKKxUg IlYRZgMTRoGCtwUBPpSHTgTAY3KSXoTXYhLU1KDaOfGSAoFiI9NClmVMLsLYUlkp0WLWTrLMP9EqjhFG BdXEDmJVBbJZbzJDHhKMSmTkR4BLSiHJCiSN5LOsEp MLMsYbF2UiTwXRIjVHTgus2NXIMeBFX8JDp3BTWiJLJfLAGxRZefWKOuVBM9ISO7HXVsNXIoGQ5CRvNo DZCfRpCyIuOfUQLoBLHwnr7KAPLoYKR3KKR0SZGsWTRyERNcQFujUQGuLWJ0BYceYOMiEIPcQJ2CWlXy GYHeUlU0SAmuAVOfIWYfso3FQHRqGCH8TJhuQhBqVU LdBBSrKGbiNRIjGNJ5ELF6CJNrDGVjJC9SQkWiXMjiLHBEAvt9UIbsD4t8ETT8QK8PQ5Bya1TnKHvpBK CNYZkoPY5wvzOwDZVrJl9WR6kAOot2KQRsNqGbKXQrZkrkMaX0ZLN3TMl6ZKUbUNK1ShC0UA2kTFFlGH XvFZMeJMVwJOI8PlqdZGY5QUVaKAB1EHuiGYdjXyHm DJ7LVz6MEpE8OFI7lDJaYq2VZhUsVOEZEjXsSM0VGZg= ID Date Data Source [id number] 08/15/2019 01:07:00 PM [facility] Name Value Range Interpretation Code Description Data Sudha rce(s) Supporting Document(s) HCG,QUALITATIVE NEGATIVE [facility] Reference range is Negative To ensure best sensitivity, first morning void is recommended. Dilute, low specific gravity urine may give a falsely negative result. If is suspected, repeat testing with a new specimen 48-72 hours later. SPECIMEN TYPE URINE [facility] ID Date Data Source [id number] 08/15/2019 12:56:00 [place] [address] HEALTH INFORMATION MANAGEMENT ED/UC Physician Report : [id number] Signed Patient: Amy Carranza Acct:[id number] Unit : [id number] : 1995 Arrival Date: 08/15/19 Age/Sex: 24 / F Arrival Time: 1035 Copies to: Harriet Marie DO Dizziness HPI/ROS General Chief Complaint: Dizziness Stated Complaint: CSQUC / Dizzy, Nausea Source: Patient Mode of arrival: Ambulatory Limitations: Reports No limitations History of Present Illness Initial Comments: 24-year-old female with significant mental delay signed in after an outpatient settled CT scan of the chest for an unknown reason stating that she has had lightheadedness for the last month as well as urinary urgency and frequency as well as some pain in her abdomen. 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 Thepatient denies that she has ever passed out a feels as though she could. She denies any modifying factors to this. She has had no recent cough or cold symptoms she denies any fever sweats or chills. She denies any nausea vomiting or diarrhea. The patient reports that she just does not feel right. She does have a difficult time providing her history and identifying her current symptoms. ROS: Systems reviewed as per HPI and below EYES: no drainage, no eye redness Neurologic: No gait ataxia, no facial droop Musculoskeletal: Ambulatory, full ROM of all extremities Skin: No rash or itching Related Data Home Medications Medication Instructions Recorded escitalopram oxalate [Lexapro] 10 mg PO DIRECTED 08/15/19 Allergies Penicillins Allergy (Verified 08/15/19 11:05) Social History History of Smoking/Tobacco Use: Never Smoker Alcohol use: Reports None Drug use: Reports None Occupation: denies Lives with: Reports Family PMH/PSH PMH/PSH Medical History No pertinent past medical history (Acute) Surgical History No pertinent past surgical history (Acute Surgical) Family History Other Patient denies significant medical history Physical Exam Physical Exam General appearance: Alert and In no apparent distress Head Head Exam: Normcephalic Eye Eye Exam: Conjunctiva normal and Sclera normal ENT ENT Exam: External ear normal, Nose normal, Throat normal, Tympanic membrane normal and Tonsil normal Neck Neck Exam: Full ROM, Supple and Trachea Midline Cardiac Cardiac: Present: Regular rate and rhythm Murmur: Present: None Lung/Chest Lung: Nonlabored respirations. Equal chest rise and fall. No accessory muscle use. Lung sounds are clear throughout. Patient is able speak in full sentences without difficulty. Abdomen Abdominal: Large round abdomen soft. She has mild tenderness to the lower aspect of the abdomen in the suprapubic region over the bladder. No rebound tenderness. No guarding. Patient does not grimace but states that it hurts when I touch her abdomen these regions. Exam OB exam: Deferred Back Back Exam: Full ROM Neuro Neuro: Patient has a history of mental delay. Neuro Normal: Alert, Oriented x 3, CN 2-12 normal, Finger to nose normal, Gait normal and Strength 5/5 all extremities Psych Psych Normal: Normal Affect Skin Skin exam: Dry, Intact, Adwolf and Warm Course Vital Signs Vital signs: Vital Signs 08/15/19 11:06 Temperature 98.7 F Pulse Rate 90 Respiratory Rate 20 Blood Pressure 128/75 O2 Sat by Pulse Oximetry 99 Medical Decision Making/CCT Lab Data Result diagrams: 08/15/19 11:45 08/15/19 11:45 Labs: Lab Results 08/15/19 Range/Units 11:37 Urine Color (Clinic) YELLOW (YELLOW) Urine Appearance (Clinic) SLIGHTLY CLOUDY H (CLEAR) Urine pH (Clinic) 7.0 (5.0-8.0) U Specif Grav (Refrac) 1.015 (1.002-1.035) Urine Protein (Auto) NEGATIVE (NEGATIVE) MG/DL Ur Ketones (Clinic) NEGATIVE (NEGATIVE) MG/DL POC Ur Occult Blood MODERATE H (NEGATIVE) Urine Nitrite NEGATIVE (NEGATIVE) Urine Bilirubin (Clinic) NEGATIVE (NEGATIVE) Ur Urobilinogen (Man) 0.2 (NEG -0-1.0) EU MG/DL Leukocyte Esterase (Clinic) NEGATIVE (NEGATIVE) Urine Glucose NEGATIVE (NEGATIVE) MG/DL Medication/Allergies Review Medication/Allergies Review Home Medication and Allergy review: I reviewed patients allergies, home medications, and new prescriptions Blood Pressure Blood pressure: Pt BP not elevated Medical Decision Making Medical Decision Making: At this time, the patient is well appearing without any evidence of significant illness requiring immediate intervention. I did draw blood work on the patient. The patient's blood work is pending at this time. EKG was completed which is not have any acute findings requiring immediate intervention. The patient had a urine completed which shows blood, patient does admit to having her menses. patient is not appear to have any dehydration. The patient has very minimal discomfort on exam. That symptoms have been going on for approximately 1 month per the patient. Grandmother states she has never for these complaints before when I speak with her on the phone. She was apprised and seemed upset that she had signed in. I explained to the patient and her grandmother that I felt she could go home time and we would call her with blood work and she should follow up with her PCP on 08/23/2019. The patient started to cry up on me telling her she was discharged. She seems very upset. I asked her why she was crying and upset she states that she did feel better and thought that would be making her feel better here. She states she wants to go the emergency department. I explained to her that I did not necessarily feel she needs to go the emergency department as she is stable here at this time. The patient however is not agreeable to that. She was told that she has been discharged urine she may call 911 if she felt she needed emergency services and care to go to the hospital. Patient did do this from the waiting room. Discharge Plan Disposition Clinical Impression: Light-headedness, UTI sympt oms Provider stated Dispo: Discharged Condition: Stable Activity Restrictions/Additional Instructions: At this time as we discussed your EKG looks okay. Your urine does not indicate a signs of an infection. I have sent blood work which I will call you at your home with information on. Please keep your scheduled appointment on the . If symptoms change or worsen please go directly to the emergency department. I advised use of heat to her lower abdomen with her. As well as Tylenol and Motrin. Prescriptions: No Action escitalopram oxalate [Lexapro] 10 mg tablet 10 mg PO DIRECTED RF: 0 Referrals: Harriet Marie DO [Primary Care Provider] - Discharge Date/Time: 08/15/19 13:28 Provider in triage note Vital Signs Vital Signs: Vital Signs (Last 8 Hours) Temp Pulse Resp BP Pulse Ox 08/15/19 11:06 98.7 F 90 20 128/75 99 Date/Time <<Signature on File>> Initializing User: Harriett Marcelino NP 08/15/19 1256 Signed by: Harriett Marcelino NP 08/15/192027 Cristóbal Yusuf DO 08/15/192043 Name Value Range Interpretation Code Description Data Sudha rce(s) Supporting Document(s) ID Date Data Source [id number] 08/15/2019 12:29:22 PM 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 [file] layton+qR3AyIbIciGfnW5O9T7RLOWnjCxpsdCgymhQEKFNLIoxrzRhvneBBATUJQdhtlWfyqxKTPKXPOtd fkOxduvEARLOMVvzlxAgyfcJJRKVIRepnyOceaiN1c zK2Giof+Ir0rLtybJyUdHf+Ggr5In/2woK8BAkVFT0SfxfzlIfAmifdRQimL9lRSIGeWFGRTHuuiE15Q PywTx4BEGmxqBLTDavF24kEZAYQOJTCtwZ+3smNQMS5B4dp1jRLKIDqlevJC65o6xhQKRUB9NcERZDUn erI02JInnBZHExID4CUQD52h2ldDOUAhXGFBEGpkpZ 99DBveZTXSvPautmRps0v+yYVJIGCLDNPE1C70/BqffMZdrQEKHEBRQBKsdaE0lmwszheMnybpD5ikW0 Arnoldo/yANO/69Yv/YWJEUDgFfxy5H4g/dv9L8BJ/APXI/gAdIZDhl8T/4cjrKKKKzPKCiiigAooooAKKKK ACiiigAooooAKKKKACiiigAooooAKKKKACiiigAooo oAKKKKACiiigAooooAKKKKACiiigD//IHDkadnQwxFXuIU5NMrZhQS5tdh5ABAVaSNXfTepBGsh8F3O5 tUEaQ0SiI1OhA78nCa0JgODlnNL2EG7TkGx0MQVtAppslCDZGOVqPICgRGZlF7LlWEX3Ku8+DQpzdHJl HC6ESjzjfVHrU2CtITR4yy3vYpnFnca0qEXtVTYMu3 TLMQ5TYvZD6d6ozzjfwQHhp3+47pSAREFDAYhDFX6XoHoXVQr9NUDFxVBrBxJAAQvBikUHObUUFDD9Up A4NGD1sxv6B7tFcXwGr1Eemhz9oeyJ7Yh7UJBMUbSRqk9L5eUqmBKHh1gDT3N19u0Dy8UmdbfRBvrqGw 1DJuD0kwipCqxexE/bXgHHm5IMb5O81pbNv2xrjy5w +2niVdPT2ecd3pbXIE3SUJ2qj6GvTILrXNefwmBhYtdXNyK8CPNpt4KwQJq5NE5Iil2wlKHqqze+/wBN SLyRCaWhRI3CrhZaMOOKgYIxRCBVBmKnLYZYbMGvXPYIECFXII5VwpTjVEKHVgRcGOFAVlohD2NnJGOn cij+/eIFQMiLJmKfEM8HjfFjTJGYwQHpOIGGItGfZM JDbORtIOZKGFYSMO1QdvXyVDWYMaNxVWRVEwfsA3VeBDUqi30UPVFlYNW1DtYcRMDhTKGuMwIwEebcYE 2Cx0QMZWAkDFP4PkPnEYWtWDGgIoYhSkosDW3+AQclfdBeAwnGSkS3SQQll0YyWYnwWMS5TU4rGHmlfj VoIdhWIzPqGSYqf4LnAItiVQL1OD6vPKoqukKrCobK YeXtAGLhc4XpCCq6PV8GlJHdS1wXBHJbP7w2AMEtOX1FZzAoFSMxCs7tJ3Mzx4LvECStZKTrZE4xvrKa JWHkBGYjHFEtZTW5L8NaJno7GqO3CCB1DQOMCPCBCcIlM0S1OMtCFSAFSsiIXczNUuC2YVM6UzIsNQHK THTJWPOeHsIHB8K6WIxQYs6yUQ9KuSm0WDDeExbzwV TILIOsCMLbSHLtC3XiATh3Lu1YKjQ8zpOmaH1YyLixTWVU//2KgkIfMtGVneOTQ2QZ61QsuGOcEOIYJA GssXPJID2UgluJ2QEsARfYSPGahTGQFSoUCkmViDVDxeK4AO0OqUbCWRDNcaJyTZPNrUQOsetAoZ1OQN 9uj0JnLAPkDXlfniYsKfhGTcypVKGQKtYtYhLXViZy KGBcPQXtFSLyByC0NcIoCl0AOKJkUWXnVKVmUtFoRMQpJHQdREyaSDPsBMDiFME1KPEvUIBeOK1NZiEv REYkLTOhQSKrOETsZDYzad6APGZyLDZpVPQ8QQBlAVXgNMSmZWasDCVlMYTiXgF6DWZcVIOaKS0XAzZf SYIxFBV1XCBoGQAyIUYxlb0HYHZzKXLvWXS5ZZOzZF SrZIQzFHykUECaKTDgCqD8NSYkWLTbOO0EKvGmNPFqNVD5QcByGTKoNQEnnu2ILNWwTWQhBSIiREW0KP TbLKTfZHbaYBTyZPDiXEVxNVA5NHB8KEFXOuFdZPOqYXHlBTCsKkE0VcIbZq2KQBBvPUXbWBQqSOL8EK SjNDZtJArdCJEcKGQaOLP5YYY4TCJ3SEYHXcYjYNUl TUMdTZSaDrS8YhRzZp7FDFPmNDPhTANgXtN7XCSiVYWvLDbpOXPrDSYvVVUcXAN8BXE7VCNIHdBpBCSr UOV3YsElGBOwKRIiyb7DVTXpLOQ9FvY7ATOfEIBeCCUiIKnsAAQeWfLjYby2SQXdYNJzUA5JMmCkUUWl HCI8CCNtIHWeZXDsln4EqMXmdNnwwt5GKIfrC0h4MM KjYk3Vq144CCYjDZWGR6voSb2hIWqsKJEZK4fERbyTRnhCYyQ7QUV9JkYrSXABOKEOYPEeKqNGV7J8GU qLUq68GMi6GxT9BGTeFsCQZHd9YRM7ULFvSTEqHufUIXL9NyU+XSA+Lj0Ql9FijmG3wuIhSGwhWOW4HJ RBIfNnIL2BJDs5suIsAUtgWKOYPlTzSLotTKQUDaq5 C9AvmnEnTjLdSm4ciJGcIBKaCq8IiuWoREX8GLIiBl0QENo9DJc0HsI5VFSuKfCTMWl7NWY7SLCiRRUy LohEFHC3QdG+SJW5Z5ZfCku6RaQ0QGD3RJLQWJDFMgVxJ4K0FZeJTIAFJk3rQ7DaKCEbTdIeCJoxR1rS MCMFhM2mNlMfYgA8Rz5PUkO6JPR6pISwFl2NHsLuZOnkLEjiKJDZTm== ID Date Data Source [id number] 08/15/2019 04:16:00 PM EST [facility] Name Value Range Interpretation Code Description Data Sudha rce(s) Supporting Document(s) WHITE BLOOD COUNT 12.51 10^3/uL 4.00-10.50 H [facility] RED BLOOD COUNT 5.05 10^6/uL 3.90-5.20 [facility] HEMOGLOBIN 14.7 G/DL 11.5-15.6 N [facility] HEMATOCRIT 45.5 % 35.0-46.0 N [facility] MCV 90.1 FL 80.0-100.0 N [facility] MCH 29.1 PG 27.0-34.0 N [facility] MCHC 32.3 G/DL 32-36 N [facility] RDW 12.7 % 11.5-14.5 N [facility] PLATELET COUNT 400 10^3/uL 130-400 N [facility] MPV 10.2 FL 8.7-13.2 N [facility] GRAN % (AUTO) 65.7 % 42.0-75.0 N [facility] LYMPH % (AUTO) 28.1 % 20.0-51.0 N [facility] MONO % (AUTO) 4.9 % 2.0-15.0 N [facility] EOS % (AUTO) 0.5 % 0.0-11.0 N [facility] BASO % (AUTO) 0.4 % 0.0-2.0 N [facility] IG % (AUTO) 0.4 % 1.00-5.00 [facility] IG # (AUTO) 0.1 10^3/uL <0.5 [facility] GRAN # (AUTO) 8.22 10^3/uL 1.50-6.50 H [facility] LYMPH # (AUTO) 3.5 k/uL 1.0-5.0 N [facility] MONO # (AUTO) 0.61 k/uL 0.20-1.50 N [facility] EOS # (AUTO) 0.06 10^3/uL 0.00-1.10 N [facility] BASO # (AUTO) 0.05 10^3/uL 0.00-0.20 N [facility] ID Date Data Source [id number] 08/15/2019 04:28:00 PM EST [facility] Name Value Range Interpretation Code Description Data Sudha rce(s) Supporting Document(s) SODIUM 141 MEQ/L 135-145 N [facility] POTASSIUM 4.3 MEQ/L 3.5-5.3 N [facility] CHLORIDE 103 MEQ/L 94-110 N [facility] CARBON DIOXIDE 28 MEQ/L 22-33 N [facility] ANION GAP 14 5-16 N [facility] BLOOD UREA NITRO 15 MG/DL 7-25 N [facility] CREATININE 0.5 MG/DL 0.6-1.4 L [facility] GFR > 90.0 ML/MIN [facility] Stage G1 - Normal or high kidney functi on The GFR is an estimate of the Glomerular Filtration Rate. It is an aid to assess a patient's renal function. It is not a conclusive diagnosis of kidney disease. GFR normal is >=90 The MDRD GFR calculation is considered valid between the ages of 18 and 75 years only. BUN/CREAT RATIO 30 8-36 N [facility] GLUCOSE 87 MG/DL 70-100 N [facility] CA 9.6 MG/DL 8.7-10.5 N [facility] ID Date Data Source [id number] 08/15/2019 11:50:[address] [facility] Name Value Range Interpretation Code Description Data Sudha rce(s) Supporting Document(s) COLOR,UR YELLOW YELLOW [facility] APPEARANCE,UR SLIGHTLY CLOUDY CLEAR A [facility] PH,UR 7.0 5.0-8.0 [facility] SPECIFIC GRAVITY,UR 1.015 1.002-1.035 N [facility] PROTEIN,UR NEGATIVE MG/DL NEGATIVE [facility] GLUCOSE, UR NEGATIVE MG/DL NEGATIVE [facility] KETONES,UR NEGATIVE MG/DL NEGATIVE [facility] OCCULT BLOOD,UR MODERATE NEGATIVE A [facility] NITRATE,UR NEGATIVE NEGATIVE [facility] LEUKOCYTE ESTERASE ,UR NEGATIVE NEGATIVE [facility] BILIRUBIN,UR NEGATIVE NEGATIVE [facility] UROBILINOGEN,UR 0.2 EU MG/DL NEG-0-1.0 [facility] ID Date Data Source [id number] 08/17/2019 08:33:00 AM EST [facility] Run: 08/17/19 0833 INTERFACED REPORT Name: Amy Carranza Age/Sex: 24/F Location: [facility] Acct: [id number] Unit: [id number] Status: DEP MARINA Room/Bed: Re08/15/19 Disch: Raisa Dr: Cristóbal Yusuf DO Specimen #: [id number] Ordered : 08/15/1908/04/1212 Collected : 08/15/1908/04/1136 By: MYRNA Received: 08/15/1908/04/1225 By: ULI Source: URINE CC Specimen Description: Comments: Recent Antibiotic Therapy N Procedure Result COLONY COUNT Final COLONY COUNT LESS THAN 1,000 CFU/ML URINE CULTURE Final NO GROWTH NO GROWTH <18 HOURS NO SIGNIFICANT GROWTH 42 HOURS URINE CULTURE Preliminary (Corrected) NO GROWTH NO GROWTH <18 HOURS END OF REPORT Name Value Range Interpretation Code Description Data Sudha rce(s) Supporting Document(s) ID Date Data Source [id number] 08/15/2019 10:59:00 [place] [address] Patient Name: Amy Carranza Exam Date: 08/15/19 : 1995 Ordering Doctor: Harriet Marie DO Attending Doctor: Harriet Marie DO CC: CT CHEST WITH CONTRAST CLINICAL HISTORY: LUNG MASS COMPARISON: CT chest dated 04/25/2019. CONTRAST: 100 mL Isovue-370 intravenous contrast. TECHNIQUE: Axial CT images were obtained of the chest were obtained with contrast. Additional coronal and sagittal reformatted images were obtained. One or more of the following dose reduction techniques were utilized in effectively lowering the radiation dose for this examination: Automated Exposure Control, Adjustment of the mA and/or kV according to patient size, or Iterative reconstruction. FINDINGS: Lines and devices: None. Lungs: Stable appearance of the 1.4 cm left lower lobe pulmonary nodule which previously measured 1.4 cm. No other pulmonary nodules are identified. Large airways: Unremarkable. Mediastinum and justin: Stable 1.2 cm paraesophageal nodule which previously measured 1.2 cm in short axis. Pleura: Unremarkable. Vessels: No aortic aneurysm or dissection. Heart: Unremarkable. Chest wall/tissues: Unremarkable. Bones: Unremarkable. Upper abdomen: Unremarkable. IMPRESSION: Stable 1.4 cm left lower lobe pulmonary nodule. Professional interpretation performed by [facility] Imaging at [facility] . End of diagnostic report: [id number] Signed: Taurus Pepe MD 08/15/19 1120 Interpreted by: Taurus PepeTranscribed by: Taurus Pepe Name Value Range Interpretation Code Description Data Sudha rce(s) Supporting Document(s) ID Date Data Source [id number] 06/27/2019 10:30:00 AM EST [facility] ([employer]) Name Value Range Interpretation Code Description Data [facility] rce(s) Supporting Document(s) Reported Physicians See Note Reported Physicians [facility] ([facility]) Note: Reported Physicians:Ordering: Anay Reyes IAttending: Anay Rincon ID Date Data Source [id number] 06/27/2019 10:30:00 AM EST [facility] ([employer]) Name Value Range Interpretation Code Description Data 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 Specimen #: [id number] Ordered : 06/27/19 Collected : 06/27/19 By: OFFICE Received: 06/27/19 By: GMACDOUGAL Source: URINE CC Specimen Description: Comments: Cholo Traore Has been collected UCC Procedure Result COLONY COUNT Final COLONY COUNT LESS THAN 1,000 CFU/ML URINE CULTURE Final NO GROWTH 18 HOURS NO SIGNIFICANT GROWTH 42 HOURS URINE CULTURE Preliminary (Corrected) NO GROWTH 18 HOURS END OF REPORT ID Date Data Source [id number] 06/27/2019 10:30:00 AM EST [employer] ([employer]) Name Value Range Interpretation Code Description Data Sudha rce(s) Supporting Document(s) URINE EPITH MANY PER/LPF URINE EPITH [facility] ([employer]) Note: Responsible Observer: UR EPITH URI NE EPITH 200.1155 (A) BILIRUBIN,UR NEGATIVE BILIRUBIN,UR JOE ([facility]) Note: Responsible Observer: UR BILI UR B ILIRUBIN 200.0750 (A) BACTERIA,UR RARE PER_HPF BACTERIA,UR JOE ([employer]) Note: Responsible Observer: UR BACT UR B ACTERIA 200.1755 (A) COLOR,UR YELLOW COLOR,UR JOE ([facility]) Note: Responsible Observer: UR COLOR UR COLOR 200.0200 (A) APPEARANCE,UR SL CLOUDY APPEARANCE,UR JOE ([facility]) Note: Responsible Observer: UR APPEAR UR APPEARANCE 200.0250 (A) LEUKOCYTE ESTERASE ,UR NEGATIVE LEUKOCYTE EST ERASE ,UR JOE ([facility]) Note: Responsible Observer: UR DORA EDDIE ASE UR LEUKOCYTE ESTERASE 200.0725 (A) GLUCOSE, UR NEGATIVE MG/DL GLUCOSE, UR JOE ([facility]) Note: Responsible Observer: UR GLU UR GL UCOSE 200.0500 (A) KETONES,UR NEGATIVE MG/DL KETONES,UR JOE ([facility]) Note: Responsible Observer: UR KETO UR K ETONES 200.0600 (A) NITRATE,UR NEGATIVE NITRATE,UR JOE ([facility]) Note: Responsible Observer: UR NIT UR NI TRATE 200.0700 (A) MUCUS,UR RARE PER_HPF MUCUS,UR JOE ([facility]) Note: Responsible Observer: UR MUCUS UR MUCUS 200.2300 (A) OCCULT BLOOD,UR LARGE Abnormal (applies to non- numeric results) OCCULT BLOOD,UR JOE ([facility]) Note: Responsible Observer: UR OCLT BLD UR OCCULT BLOOD 200.0650 (A) PH,UR 5.0 PH,UR JOE ([facility]) Note: Responsible Observer: UR PH UR PH 200.0350 (A) SPECIFIC GRAVITY,UR 1.017 Normal SPECIFIC GRAVITY,UR JOE ([facility]) Note: Responsible Observer: SG URINE SPE CIFIC GRAVITY,UR 200.0410 (A) RBC,UR 1-2 PER_HPF RBC,UR JOE ([facility]) Note: Responsible Observer: UR RBC UR RB C 200.1005 (A) PROTEIN,UR NEGATIVE MG/DL PROTEIN,UR JOE ([facility]) Note: Responsible Observer: UR PROT UR P ROTEIN 200.0450 (A) UROBILINOGEN,UR 0.2-1.0 EU_MG/DL UROBILINOGEN,UR G REENWAY ([facility]) Note: Responsible Observer: UR URO UR UR OBILINOGEN 200.0900 (A) WBC,UR 5-9 PER_HPF Abnormal (applies to non-numeric re sults) WBC,UR JOE ([facility]) Note: Responsible Observer: UR WBC UR WB C 200.1055 (A) ID Date Data Source [id number] 06/27/2019 08:00:00 PM [facility] Run: 06/29/19 0816 INTERFACED REPORT Name: Amy Carranza Age/Sex: 24/F Location: [facility] Acct: [id number] Unit: [id number] Status: REG REF Room/Bed: Re06/27/19 Disch: Att Dr: Anay Rincon NP Specimen #: [id number] Ordered : 06/27/19 Collected : 06/27/19 By: OFFICE Received: 06/27/19 By: BONI Source: URINE CC Specimen Description: Comments: Cholo Y Has been collected UC Procedure Result COLONY COUNT Final COLONY COUNT LESS THAN 1,000 CFU/ML URINE CULTURE Final NO GROWTH 18 HOURS NO SIGNI FICANT GROWTH 42 HOURS URINE CULTURE Preliminary (Corrected) NO GROWTH 18 HOURS END OF REPORT Name Value Range Interpretation Code Description Data Sudha rce(s) Supporting Document(s) COLOR,UR YELLOW YELLOW [facility] APPEARANCE,UR SL CLOUDY CLEAR [facility] PH,UR 5.0 5.0-8.0 [facility] SPECIFIC GRAVITY,UR 1.017 1.002-1.035 N [facility] PROTEIN,UR NEGATIVE MG/DL NEGATIVE [facility] GLUCOSE, UR NEGATIVE MG/DL NEGATIVE [facility] KETONES,UR NEGATIVE MG/DL NEGATIVE [facility] OCCULT BLOOD,UR LARGE NEGATIVE A [facility] NITRATE,UR NEGATIVE NEGATIVE [facility] LEUKOCYTE ESTERASE ,UR NEGATIVE NEGATIVE [facility] BILIRUBIN,UR NEGATIVE NEGATIVE [facility] UROBILINOGEN,UR 0.2-1.0 EU MG/DL NEG-0-1.0 [facility] RBC,UR 1-2 PER HPF 0-2 [facility] WBC,UR 5-9 PER HPF <5 A [facility] URINE EPITH MANY PER/LPF FEW-MOD [facility] BACTERIA,UR RARE PER HPF NONE [facility] MUCUS,UR RARE PER HPF NONE SEEN [facility] ID Date Data Source [id number] 06/29/2019 08:16:00 AM EST [facility] Run: 06/29/19 0816 INTERFACED REPORT Name: Amy Carranza Age/Sex: 24/F Location: [facility] Acct: [id number] Unit: [id number] Status: REG REF Room/Bed: Re06/27/19 Disch: Att Dr: Anay Rincon NP Specimen #: [id number] Ordered : 06/27/19 Collected : 06/27/19 By: OFFICE Received: 06/27/19 By: BONI Source: URINE CC Specimen Description: Comments: Cholo Y Has been collected UCC Procedure Result COLONY COUNT Final COLONY COUNT LESS THAN 1,000 CFU/ML URINE CULTURE Final NO GROWTH 18 HOURS NO SIGNI FICANT GROWTH 42 HOURS URINE CULTURE Preliminary (Corrected) NO GROWTH 18 HOURS END OF REPORT Name Value Range Interpretation Code Description Data [facility] Supporting Document(s) ID Date Data Source [id number] 06/27/2019 10:30:00 AM [employer] ([employer]) Name Value Range Interpretation Code Description Data [facility] Supporting Document(s) Reported Physicians See Note Reported Physicians [place] [facility] ([facility]) Note: Reported Physicians:Ordering: Carn es, Anay IAttending: Mckenzie, Anay ID Date Data Source [id number] 06/27/2019 10:30:00 AM EST [employer] ([employer]) Name Value Range Interpretation Code Description Data [facility] Supporting Document(s) See Note Chris See Note Aries JOE (Margaret) Note: Run: 06/28/19 08 INTERFACED REPORT Name: Amy Carranza Age/Sex: 24/F Location: [facility] Acct: [id number] Unit: [id number] Status: REG REF Room/Bed: Re06/27/19 Disch: Raisa Dr: Anay Rincon I [employer] Specimen #: [id number] Ordered : 06/27/19 Collected : 06/27/19 By: OFFICE Received: 06/27/19 By: BONI Source: URINE CC Specimen Description: Comments: Cholo Traore Has been collected UCC Procedure Result COLONY COUNT Final COLONY COUNT LESS THAN 1,000 CFU/ML URINE CULTURE Preliminary NO GROWTH 18 HOURS END OF REPORT ID Date Data Source [id number] 06/27/2019 10:30:00 AM EST JOE ([facility]) Name Value Range Interpretation Code Description Data Sudha rce(s) Supporting Document(s) URINE EPITH MANY PER/LPF URINE EPITH JOE ([facility]) Note: Responsible Observer: UR EPITH URI NE EPITH [phone] (A) APPEARANCE,UR SL CLOUDY APPEARANCE,UR JOE ([facility]) Note: Responsible Observer: UR APPEAR UR APPEARANCE [phone] (A) BACTERIA,UR RARE PER_HPF BACTERIA,UR JOE ([facility]) Note: Responsible Observer: UR BACT UR B ACTERIA [phone] (A) BILIRUBIN,UR NEGATIVE BILIRUBIN,UR JOE ([facility]) Note: Responsible Observer: UR BILI UR B ILIRUBIN 200.0750 (A) COLOR,UR YELLOW COLOR,UR JOE ([facility]) Note: Responsible Observer: UR COLOR UR COLOR 200.0200 (A) KETONES,UR NEGATIVE MG/DL KETONES,UR JOE ([facility]) Note: Responsible Observer: UR KETO UR K ETONES 200.0600 (A) GLUCOSE, UR NEGATIVE MG/DL GLUCOSE, UR JOE ([facility]) Note: Responsible Observer: UR GLU UR GL UCOSE 200.0500 (A) LEUKOCYTE ESTERASE ,UR NEGATIVE LEUKOCYTE EST ERASE ,UR JOE ([facility]) Note: Responsible Observer: UR DORA EDDIE ASE UR LEUKOCYTE ESTERASE 200.0725 (A) MUCUS,UR RARE PER_HPF MUCUS,UR JOE ([facility]) Note: Responsible Observer: UR MUCUS UR MUCUS 200.2300 (A) OCCULT BLOOD,UR LARGE Abnormal (applies to non- numeric results) OCCULT BLOOD,UR JOE ([facility]) Note: Responsible Observer: UR OCLT BLD UR OCCULT BLOOD 200.0650 (A) NITRATE,UR NEGATIVE NITRATE,UR JOE ([facility]) Note: Responsible Observer: UR NIT UR NI TRATE 200.0700 (A) PH,UR 5.0 [facility],UR [facility]E [facility] Note: Responsible Observer: UR PH UR PH 200.0350 (A) PROTEIN,UR NEGATIVE MG/DL PROTEIN,UR JOE ([facility]) Note: Responsible Observer: UR PROT UR P ROTEIN 200.0450 (A) RBC,UR 1-2 PER_HPF RBC,UR JOE ([facility]) Note: Responsible Observer: UR RBC UR RB C 200.1005 (A) SPECIFIC GRAVITY,UR 1.017 Normal SPECIFIC GRAVITY,UR JOE ([facility]) Note: Responsible Observer: SG URINE SPE CIFIC GRAVITY,UR 200.0410 (A) UROBILINOGEN,UR 0.2-1.0 EU_MG/DL UROBILINOGEN,UR G [place] ([facility]) Note: Responsible Observer: UR URO UR UR OBILINOGEN 200.0900 (A) WBC,UR 5-9 PER_HPF Abnormal (applies to non-numeric re sults) WBC,UR JOE ([facility]) Note: Responsible Observer: UR WBC UR WB C 200.1055 (A) ID Date Data Source [id number] 06/02/2019 06:22:16 PM EST Lab [facility] Name Value Range Interpretation Code Description Data Sudha rce(s) Supporting Document(s) HIV RAPID SCR PRELIM (NEG) Lab [facility] Final Result Procedure Social History Code Duration Value Status Description Data Source(s ) Smoking 07/18/2020 12:00:00 AM EST Never smoked tobacco (findi ng) completed Never smoked tobacco (finding) JOE ([facility]) Alcohol intake 05/17/2020 12:00:00 AM EST Ex-drinker (finding) comp leted Ex- drinker (finding) [facility] Tobacco use and exposure 05/17/2020 12:00:00 AM EST Never used co mpleted Never used [facility] Smoking 05/17/2020 12:00:00 AM EST Never smoker completed Never s moker [facility] Alcohol intake 05/09/2020 12:00:00 AM EST Ex-drinker (finding) comp leted Ex- drinker (finding) [facility] Alcohol intake 05/08/2020 12:00:00 AM EST Ex-drinker (finding) comp leted Ex- drinker (finding) [facility] Smoking 05/01/2020 12:00:00 AM EST Never smoked tobacco (findi ng) completed Never smoked tobacco (finding) JOE ([facility]) Smoking 05/01/2020 12:00:00 AM EST Never smoked tobacco (findi ng) completed Never smoked tobacco (finding) JOE ([facility]) Smoking 05/01/2020 12:00:00 AM EST Never smoked tobacco (findi ng) completed Never smoked tobacco (finding) JOE ([facility]) Alcohol intake 04/17/2020 12:00:00 AM EST Ex-drinker (finding) comp leted Ex- drinker (finding) [facility] Alcohol intake 04/14/2020 12:00:00 AM EDT Ex-drinker (finding) comp leted Ex- drinker (finding) [facility] Alcohol intake 04/06/2020 12:00:00 AM EDT Ex-drinker (finding) comp leted Ex- drinker (finding) [facility] Alcohol intake 04/02/2020 12:00:00 AM EDT Ex-drinker (finding) comp leted Ex- drinker (finding) [facility] Alcohol intake 03/29/2020 12:00:00 AM EDT Lifetime non-drinker (finding) completed Lifetime non-drinker (finding) [facility] Alcohol intake 03/28/2020 12:00:00 AM EDT Lifetime non-drinker (finding) completed Lifetime non-drinker (finding) [facility] Alcohol intake 03/23/2020 12:00:00 AM EDT Lifetime non-drinker (finding) completed Lifetime non-drinker (finding) [facility] Alcohol intake 03/21/2020 12:00:00 AM EDT Lifetime non-drinker (finding) completed Lifetime non-drinker (finding) [facility] Smoking 03/12/2020 12:00:00 AM EDT Never smoked tobacco (findi ng) completed Never smoked tobacco (finding) JOE ([facility]) Smoking 02/21/2020 12:00:00 AM EDT Never smoked tobacco (findi ng) completed Never smoked tobacco (finding) JOE ([facility]) Alcohol intake 02/18/2020 12:00:00 AM EDT Lifetime non-drinker (finding) completed Lifetime non-drinker (finding) [facility] Alcohol intake 02/18/2020 12:00:00 AM EDT Lifetime non-drinker (finding) completed Lifetime non-drinker (finding) [facility] Alcohol intake 02/17/2020 12:00:00 AM EDT Lifetime non-drinker (finding) completed Lifetime non-drinker (finding) [facility] Alcohol intake 02/16/2020 12:00:00 AM EDT Lifetime non-drinker (finding) completed Lifetime non-drinker (finding) [facility] Alcohol intake 02/16/2020 12:00:00 AM EDT Lifetime non-drinker (finding) completed Lifetime non-drinker (finding) [facility] Alcohol intake 02/09/2020 12:00:00 AM EDT Lifetime non-drinker (finding) completed Lifetime non-drinker (finding) [facility] Alcohol intake 02/08/2020 12:00:00 AM EDT Lifetime non-drinker (finding) completed Lifetime non-drinker (finding) [facility] Alcohol intake 02/07/2020 12:00:00 AM EDT Lifetime non-drinker (finding) completed Lifetime non-drinker (finding) [facility] 02/03/2020 09:52:34 PM EDT Unknown if Ever Smoked comp leted Unknown if [facility] Sm[facility] 02/03/2020 09:52:00 PM EDT Tobacco smoki ng consumption unknown (finding) completed Tobacco smoking consumption unknown (caleb hernandez) [facility] Alcohol intake 02/02/2020 12:00:00 AM EDT Lifetime non-drinker (finding) completed Lifetime non-drinker (finding) [facility] Alcohol intake 01/30/2020 12:00:00 AM EDT Lifetime non-drinker (finding) completed Lifetime non-drinker (finding) [facility] Alcohol intake 01/29/2020 12:00:00 AM EDT Lifetime non-drinker (finding) completed Lifetime non-drinker (finding) [facility] Alcohol intake 01/29/2020 12:00:00 AM EDT Lifetime non-drinker (finding) completed Lifetime non-drinker (finding) [facility] Alcohol intake 01/28/2020 12:00:00 AM EDT Lifetime non-drinker (finding) completed Lifetime non-drinker (finding) [facility] Alcohol intake 01/27/2020 12:00:00 AM EDT Lifetime non-drinker (finding) completed Lifetime non-drinker (finding) [facility] Smoking 01/26/2020 12:00:00 AM EDT Never smoked tobacco (findi ng) completed Never smoked tobacco (finding) JOE ([facility]) Smoking 01/26/2020 12:00:00 AM EDT Never smoked tobacco (findi ng) completed Never smoked tobacco (finding) JOE ([facility]) Alcohol intake 01/24/2020 12:00:00 AM EDT Lifetime non-drinker (finding) completed Lifetime non-drinker (finding) [facility] 12/20/2019 06:02:00 PM EDT Unknown if Ever Smoked comp leted Unknown if Ever Smoked [facility] Smoking 12/20/2019 06:02:00 PM EDT Tobacco smoki ng consumption unknown (finding) completed Tobacco smoking consumption unknown (fin ding) [facility] Alcohol intake 12/18/2019 12:00:00 AM EDT Lifetime non-drinker (finding) completed Lifetime non-drinker (finding) [facility] Smoking 12/18/2019 12:00:00 AM EDT Never smoker completed Never s [facility] Alcohol intake 11/14/2019 12:00:00 AM EDT Lifetime non-drinker (finding) completed Lifetime non-drinker (finding) [facility] Smoking 11/14/2019 12:00:00 AM EDT Never smoker completed Never s [facility] Assertion 09/08/2019 12:00:00 AM EDT Finding relat ing to drug misuse behavior (finding) completed Finding relating to drug misuse behavior (finding) JOE ([facility]) Assertion 09/08/2019 12:00:00 AM EDT Current drinker of al cohol (finding) completed Current drinker of alcohol (finding) JOE ([facility]) Assertion 09/08/2019 12:00:00 AM EDT Finding relat ing to drug misuse behavior (finding) completed Finding relating to drug misuse behavior (finding) JOE ([facility]) Assertion 09/08/2019 12:00:00 AM EDT Current drinker of al cohol (finding) completed Current drinker of alcohol (finding) JOE ([facility]) Assertion 09/08/2019 12:00:00 AM EDT Finding relat ing to drug misuse behavior (finding) completed Finding relating to drug misuse behavior (finding) JOE ([facility]) Assertion 09/08/2019 12:00:00 AM EDT Current drinker of al cohol (finding) completed Current drinker of alcohol (finding) JOE ([facility]) Assertion 09/08/2019 12:00:00 AM EDT Finding relat ing to drug misuse behavior (finding) completed Finding relating to drug misuse behavior (finding) JOE ([facility]) Assertion 09/08/2019 12:00:00 AM EDT Current drinker of al cohol (finding) completed Current drinker of alcohol (finding) JOE ([facility]) Assertion 09/08/2019 12:00:00 AM EDT Finding relat ing to drug misuse behavior (finding) completed Finding relating to drug misuse behavior (finding) JOE ([facility]) Assertion 09/08/2019 12:00:00 AM EDT Current drinker of al cohol (finding) completed Current drinker of alcohol (finding) JOE ([facility]) Assertion 09/08/2019 12:00:00 AM EDT Finding relat ing to drug misuse behavior (finding) completed Finding relating to drug misuse behavior (finding) JOE ([facility]) Assertion 09/08/2019 12:00:00 AM EDT Current drinker of al cohol (finding) completed Current drinker of alcohol (finding) JOE ([facility]) Assertion 09/08/2019 12:00:00 AM EDT Finding relat ing to drug misuse behavior (finding) completed Finding relating to drug misuse behavior (finding) JOE ([facility]) Assertion 09/08/2019 12:00:00 AM EDT Current drinker of al cohol (finding) completed Current drinker of alcohol (finding) JOE ([facility]) Smoking 09/08/2019 12:00:00 AM EDT Never smoked tobacco (findi ng) completed Never smoked tobacco (finding) JOE ([facility]) Smoking 09/08/2019 12:00:00 AM EDT Never smoked tobacco (findi ng) completed Never smoked tobacco (finding) JOE ([facility]) Assertion 09/08/2019 12:00:00 AM EDT Finding relat ing to drug misuse behavior (finding) completed Finding relating to drug misuse behavior (finding) JOE ([facility]) Assertion 09/08/2019 12:00:00 AM EDT Current drinker of al cohol (finding) completed Current drinker of alcohol (finding) JOE ([facility]) Smoking 09/08/2019 12:00:00 AM EDT Never smoked tobacco (findi ng) completed Never smoked tobacco (finding) JOE ([facility]) Assertion 09/08/2019 12:00:00 AM EDT Finding relat ing to drug misuse behavior (finding) completed Finding relating to drug misuse behavior (finding) JOE ([facility]) Assertion 09/08/2019 12:00:00 AM EDT Current drinker of al cohol (finding) completed Current drinker of alcohol (finding) JOE ([facility]) Smoking 09/08/2019 12:00:00 AM EDT Never smoked tobacco (findi ng) completed Never smoked tobacco (finding) JOE ([facility]) Assertion 09/08/2019 12:00:00 AM EDT Finding relat ing to drug misuse behavior (finding) completed Finding relating to drug misuse behavior (finding) JOE ([facility]) Assertion 09/08/2019 12:00:00 AM EDT Current drinker of al cohol (finding) completed Current drinker of alcohol (finding) JOE ([facility]) Alcohol intake 08/16/2019 12:00:00 AM EST Lifetime non-drinker (finding) completed Lifetime non-drinker (finding) [facility] Smoking 08/16/2019 12:00:00 AM EST Never smoker completed Never s [facility] 08/15/2019 06:49:00 PM EST Never Smoker completed Never S moker [facility] Smoking 08/15/2019 06:49:00 PM EST Never smoked tobacco (findi ng) completed Never smoked tobacco (finding) [facility] 08/15/2019 11:06:00 AM EST Never Smoker completed Never S moker [facility] Smoking 08/15/2019 11:06:00 AM EST Never smoked tobacco (findi ng) completed [facility]finding) [facility] Alcohol intake 08/15/2019 12:00:00 AM EST Lifetime non-drinker (finding) completed Lifetime non-drinker (finding) [facility] Smoking 08/15/2019 12:00:00 AM EST Never smoker completed Never s [facility] Alcohol intake 08/15/2019 12:00:00 AM EST Lifetime non-drinker (finding) completed Lifetime non-drinker (finding) [facility] Smoking 06/10/2019 12:00:00 AM EST Never smoker completed Never s moker 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[facility]) Vital Signs ID Date Data Source UNK Name Value Range Interpretation Code Description Data Source(s) PhenX - pain, abdominal - type and intensity protocol 3 3 [place] [facility] [place] ([facility]) no vitals taking by pt at this time Oxygen saturation in Arterial blood by Pulse oximetry 99 % 99 % [place] [facility] ([facility]) PhenX - pain, abdominal - type and intensity protocol 0 0 [place] [facility] ([facility]) Body weight 261.2 [lb_av] 261.2 [lb_av] [place] ([facility]) Body temperature 97.1 [degF] 97.1 [degF] [facility] ([facility]) Respiratory rate 18 /min 18 /min [place] [facility] ([facility]) Heart rate rhythm 1 1 [place] ([facility]) Heart rate 100 /min 100 /min [place] [facility] [place] ([facility]) Diastolic blood pressure 60 mm[Hg] 60 mm[Hg] [place] [facility] ([facility]) Systolic blood pressure 122 mm[Hg] 122 mm[Hg] [facility]) Inhaled oxygen concentration 21 % 21 % [place] [facility] ([facility]) Inhaled oxygen flow rate 0 L/min 0 L/min [place] [facility] ([facility]) Oxygen saturation in Arterial blood by Pulse oximetry 98 % 98 % [place] [facility] ([facility]) PhenX - pain, abdominal - type and intensity protocol 3 3 JOE ([facility]) Body weight 251.8 [lb_av] 251.8 [lb_av] [place] ([facility]) Body temperature 97.6 [degF] 97.6 [degF] [place] ([facility]) Respiratory rate 20 /min 20 /min JOE ([facility]) Heart rate rhythm 1 1 Y ([facility]) Heart rate 96 /min 96 /min JOE ([facility]) Diastolic blood pressure 76 mm[Hg] 76 mm[Hg] JOE ([facility]) Systolic blood pressure 122 mm[Hg] 122 mm[Hg] [facility] Inhaled oxygen concentration 21 % 21 % JO[facility] ([facility]) Inhaled oxygen flow rate 0 L/min 0 L/min [place] [facility] ([facility]) Oxygen saturation in Arterial blood by Pulse oximetry 98 % 98 % [place] [facility] ([facility]) PhenX - pain, abdominal - type and intensity protocol 0 0 [place] [facility] ([facility]) Body weight 247 [lb_av] 247 [lb_av] JOE ([facility]) Body temperature 98.9 [degF] 98.9 [degF] [place] ([facility]) Respiratory rate 20 /min 20 /min JOE ([facility]) Heart rate rhythm 1 1 Y ([facility]) Heart rate 74 /min 74 /min JO[place] ([facility]) Diastolic blood pressure 80 mm[Hg] 80 mm[Hg] JOE ([facility]) Systolic blood pressure 102 mm[Hg] 102 mm[Hg] [place] ([facility]) Inhaled oxygen concentration 21 % 21 % [facility] ([facility]) Inhaled oxygen flow rate 0 L/min 0 L/min [place] [facility] ([facility]) Oxygen saturation in Arterial blood by Pulse oximetry 97 % 97 % [place] [facility] ([facility]) PhenX - pain, abdominal - type and intensity protocol 3 3 [facility] ([facility]) Body weight 250.8 [lb_av] 250.8 [lb_av] [place] ([facility]) Body temperature 95.6 [degF] 95.6 [degF] [place] [facility] ([facility]) Respiratory rate 17 /min 17 /min JOE ([facility]) Heart rate 93 /min 93 /min JOE ([facility]) Diastolic blood pressure 80 mm[Hg] 80 mm[Hg] JO[facility] ([facility]) Systolic blood pressure 134 mm[Hg] 134 mm[Hg] G [facility] ([facility]) Oxygen saturation in Arterial blood by Pulse oximetry 98 % 98 % [place] [facility] ([facility]) PhenX - pain, abdominal - type and intensity protocol 0 0 [place] ([facility]) Body surface area Derived from formula 2.08 m2 2.08 m2 [place] ([facility]) Body mass index (BMI) [Ratio] 47.2 kg/m2 47.2 k g/m2 JOE ([facility]) Body weight 250 [lb_av] 250 [lb_av] JOE ([facility]) Body height 61 [in_i] 61 [in_i] JOE ([facility]) Body temperature 100 [degF] 100 [degF] JOE ([facility]) Respiratory rate 16 /min 16 /min JO[facility] ([facility]) Heart rate 70 /min 70 /min JO[facility] ([facility]) Heart rate rhythm 1 1 [place] ([facility]) Diastolic blood pressure 78 mm[Hg] 78 mm[Hg] JO[facility] ([facility]) Systolic blood pressure 120 mm[Hg] 120 mm[Hg] G [facility] ([facility]) Diastolic blood pressure 84 mm[Hg] 84 mm[Hg] JOE ([facility]) Systolic blood pressure 138 mm[Hg] 138 mm[Hg] G [facility] ([facility]) Inhaled oxygen concentration 21 % 21 % [facility] ([facility]) Inhaled oxygen flow rate 0 L/min 0 L/min [facility] ([facility]) Oxygen saturation in Arterial blood by Pulse oximetry 99 % 99 % [place] [facility] ([facility]) PhenX - pain, abdominal - type and intensity protocol 3 3 [facility] ([facility]) Body weight 252 [lb_av] 252 [lb_av] JOE ([facility]) Body temperature 98.5 [degF] 98.5 [degF] [place] [facility] ([facility]) Respiratory rate 20 /min 20 /min JOE ([facility]) Heart rate 90 /min 90 /min JO[facility] ([facility]) Heart rate rhythm 1 1 Y ([facility]) Diastolic blood pressure 104 mm[Hg] 104 mm[Hg] JO[facility] ([facility]) Systolic blood pressure 140 mm[Hg] 140 mm[Hg] [place] ([facility]) Inhaled oxygen concentration 21 % 21 % [facility] ([facility]) Inhaled oxygen flow rate 0 L/min 0 L/min [place] [facility] ([facility]) Oxygen saturation in Arterial blood by Pulse oximetry 98 % 98 % [place] [facility] ([facility]) PhenX - pain, abdominal - type and intensity protocol 0 0 [place] [facility] ([facility]) Body weight 250 [lb_av] 250 [lb_av] JOE ([facility]) Body temperature 97.2 [degF] 97.2 [degF] [place] [facility] ([facility]) Respiratory rate 18 /min 18 /min JO[facility] ([facility]) Heart rate 95 /min 95 /min JO[facility] ([facility]) Heart rate rhythm 1 1 Y ([facility]) Diastolic blood pressure 66 mm[Hg] 66 mm[Hg] JO[facility] ([facility]) Systolic blood pressure 118 mm[Hg] 118 mm[Hg] [facility]) Inhaled oxygen concentration 21 % 21 % [place] [facility] ([facility]) Inhaled oxygen flow rate 0 L/min 0 L/min [place] [facility] ([facility]) Oxygen saturation in Arterial blood by Pulse oximetry 98 % 98 % [place] [facility] ([facility]) PhenX - pain, abdominal - type and intensity protocol 0 0 [place] [facility] ([facility]) Body temperature 97.9 [degF] 97.9 [degF] [place] [facility] ([facility]) Respiratory rate 16 /min 16 /min JO[facility] ([facility]) Heart rate 96 /min 96 /min [place] [facility] [facility] Diastolic blood pressure 87 mm[Hg] 87 mm[Hg] JO[facility] ([facility]) Systolic blood pressure 125 mm[Hg] 125 mm[Hg] [place] ([facility]) Inhaled oxygen concentration 21 % 21 % [place] [facility] ([facility]) Lap 1 Inhaled oxygen flow rate 0 L/min 0 L/min [place] [facility] ([facility]) Lap 1 Oxygen saturation in Arterial blood by Pulse oximetry 97 % 97 % [place] [facility] ([facility]) Lap 1 Heart rate 125 /min 125 /min [place] [facility] ([facility]) Lap 1 Inhaled oxygen concentration 21 % 21 % [place] [facility] ([facility]) Resting Inhaled oxygen flow rate 0 L/min 0 L/min [place] [facility] ([facility]) Resting Oxygen saturation in Arterial blood by Pulse oximetry 98 % 98 % [place] [facility] ([facility]) Resting Heart rate 117 /min 117 /min [place] [facility] ([facility]) Resting Inhaled oxygen concentration 21 % 21 % [place] [facility] Inhaled oxygen flow rate 0 L/min 0 L/min [place] [facility] ([facility]) Oxygen saturation in Arterial blood by Pulse oximetry 98 % 98 % [place] [facility] ([facility]) PhenX - pain, abdominal - type and intensity protocol 0 0 [place] [facility] ([facility]) Body temperature 100.6 [degF] 100.6 [degF] [facility] ([facility]) Respiratory rate 16 /min 16 /min [place] [facility] ([facility]) Heart rate 120 /min 120 /min [place] [facility] ([facility]) Diastolic blood pressure 70 mm[Hg] 70 mm[Hg] [place] [facility] ([facility]) Systolic blood pressure 116 mm[Hg] 116 mm[Hg] G [facility] ([facility]) Diastolic blood pressure 63 mm[Hg] 63 mm[Hg] [facility] Systolic blood pressure 122 mm[Hg] 122 mm[Hg] O [facility] Oxygen saturation in Arterial blood by Pulse oximetry 98 % 98 % [facility] 18 /min 18 /min [facility] Heart rate 90 /min 90 /[facility] Body temperature 98.4 [degF] 98.4 [degF] [facility] Body weight 100.00 kg 100.00 kg [facility] Body height 170.18 cm 170.18 [facility] Inhaled oxygen concentration 21 % 21 % [place] [facility] ([facility]) Inhaled oxygen flow rate 0 L/min 0 L/min [place] [facility] (Formerly [facility]) Oxygen saturation in Arterial blood by Pulse oximetry 97 % 97 % [place] ([facility]ly [facility]) PhenX - pain, abdominal - type and intensity protocol 3 3 [place] [facility] [place] ([facility]ly [facility]) Body temperature 98.6 [degF] 98.6 [degF] [place] AY (Formerly [facility]) Respiratory rate 20 /min 20 /min JOE (Formerly [facility]) Heart rate 133 /min 133 /min [place] [facility] [place] (Formerly [facility]) Diastolic blood pressure 80 mm[Hg] 80 mm[Hg] JOE (Formerly [facility]) Systolic blood pressure 122 mm[Hg] 122 mm[Hg] G [facility] (Formerly [facility]) Diastolic blood pressure 87 mm[Hg] 87 mm[Hg] [facility]st[facility] 131 mm[Hg] 131 mm[Hg] [facility] Oxygen saturation in Arterial blood by Pulse oximetry 100 % 100 % [facility] 16 /min 16 [facility] 87 /min 87 /[facility] Body temperature 97.6 [degF] 97.6 [degF] [facility] Body weight 100.00 kg 100.00 [facility] Body height 152.4 cm 152.4 cm [facility] PhenX - pain, abdominal - type and intensity protocol 0 0 [place] [facility] [place] (Formerly [facility]) Oxygen saturation in Arterial blood by Pulse oximetry 96 % 96 % [place] [facility] ([facility]ly [facility]) PhenX - pain, abdominal - type and intensity protocol 0 0 [place] [facility] [place] ([facility]) Body temperature 99.9 [degF] 99.9 [degF] [place] (Formerly [facility]) Respiratory rate 18 /min 18 /min [place] [facility] [place] ([facility]) Heart rate 112 /min 112 /min [place] [facility] [place] ([facility]) Diastolic blood pressure 60 mm[Hg] 60 mm[Hg] [place] [facility] ([facility]) Systolic blood pressure 122 mm[Hg] 122 mm[Hg] [facility] Inhaled oxygen concentration 21 % 21 % [place] [facility] [place] ([facility]) Inhaled oxygen flow rate 0 L/min 0 L/min [place] [facility] ([facility]) Oxygen saturation in Arterial blood by Pulse oximetry 98 % 98 % [place] [facility] ([facility]) PhenX - pain, abdominal - type and intensity protocol 0 0 [place] [facility] ([facility]) Body temperature 98 [degF] 98 [degF] [place] [facility] [place] ([facility]) Respiratory rate 20 /min 20 /min [facility] Heart rate 99 /min 99 /min [facility] Heart rate 101 /min 101 /min [facility] Heart rate 101 /min 101 /min JO[facility] Diastolic blood pressure 84 mm[Hg] 84 mm[Hg] [facility] Systolic blood pressure 130 mm[Hg] 130 mm[Hg] G REEN[place]AY [facility] Diastolic blood pressure 77 mm[Hg] 77 mm[Hg] [facility] Systolic blood pressure 120 mm[Hg] 120 mm[Hg] G [place] [facility] Diastolic blood pressure 85 mm[Hg] 85 mm[Hg] [facility] Systolic blood pressure 127 mm[Hg] 127 mm[Hg] [facility] Inhaled oxygen concentration 21 % 21 % JOE ([facility]ly [facility]) 1 min post walking 02 Inhaled oxygen flow rate 0 L/min 0 L/min JOE ([facility]ly [facility]) 1 min post walking 02 Oxygen saturation in Arterial blood by Pulse oximetry 97 % 97 % JOE ([facility]ly [facility]) 1 min post walking 02 Heart rate 113 /min 113 /min [facility] 1 min post walking 02 Inhaled oxygen concentration 21 % 21 % [facility] walking o2 start Inhaled oxygen flow rate 0 L/min 0 L/min JOE ([facility]ly [facility]) walking o2 start Oxygen saturation in Arterial blood by Pulse oximetry 94 % 94 % [facility] walking o2 start Heart rate 113 /min 113 /min JO[facility] walking o2 start Heart rate 85 /min 85 /min JOE ([facility] orthostatic BP Heart rate 91 /min 91 /min JO[facility] orthostatic BP Heart rate 84 /min 84 /min JO[facility] orthostatic BP Diastolic blood pressure 79 mm[Hg] 79 mm[Hg] [facility] orthostatic BP Systolic blood pressure 134 mm[Hg] 134 mm[Hg] G REENWAY [facility] orthostatic BP Diastolic blood pressure 59 mm[Hg] 59 mm[Hg] JOE ([facility]ly [facility]) orthostatic BP Systolic blood pressure 128 mm[Hg] 128 mm[Hg] G [facility] ([facility]ly [facility]) orthostatic BP Diastolic blood pressure 77 mm[Hg] 77 mm[Hg] [place] [facility] ([facility]) orthostatic BP Systolic blood pressure 135 mm[Hg] 135 mm[Hg] G [facility] ([facility]) orthostatic BP Inhaled oxygen concentration 21 % 21 % [place] [facility] [place] ([facility]) BG-92 Inhaled oxygen flow rate 0 L/min 0 L/min [place] [facility] ([facility]) BG-92 Oxygen saturation in Arterial blood by Pulse oximetry 98 % 98 % [place] [facility] ([facility]) BG-92 PhenX - pain, abdominal - type and intensity protocol 10 10 [place] [facility] [place] ([facility]) BG-92 Respiratory rate 16 /min 16 /min [place] [facility] [place] ([facility]) BG-92 Heart rate rhythm 1 1 (Formerly [facility]) BG-92 Heart rate 83 /min 83 /min [place] ([facility]) BG-92 Diastolic blood pressure 76 mm[Hg] 76 mm[Hg] [place] [facility] ([facility]) BG-92 Systolic blood pressure 116 mm[Hg] 116 mm[Hg] G [facility] (Formerly [facility]) BG-92 Heart rate rhythm 1 1 (Formerly [facility]) supine at 9:10 am pt not c/o dizziness p upils smaller in size sitiing at 9/15am pupils dilated larger in size pt c/o dizzinessstanding at 920 am. pupils still dilated and pt swaying and C/O dizziness Diastolic blood pressure 80 mm[Hg] 80 mm[Hg] [place] [facility] [place] ([facility]) supine at 9:10 am pt not c/o dizziness p upils smaller in size sitiing at 9/15am pupils dilated larger in size pt c/o dizzinessstanding at 920 am. pupils still dilated and pt swaying and C/O dizziness Systolic blood pressure 120 mm[Hg] 120 mm[Hg] G [facility] ([facility]ly [facility]) supine at 9:10 am pt not c/o dizziness p upils smaller in size sitiing at 9/15am pupils dilated larger in size pt c/o dizzinessstanding at 920 am. pupils still dilated and pt swaying and C/O dizziness Diastolic blood pressure 86 mm[Hg] 86 mm[Hg] [place] [facility] [facility] supine at 9:10 am pt not c/o dizziness p upils smaller in size sitiing at 9/15am pupils dilated larger in size pt c/o dizzinessstanding at 920 am. pupils still dilated and pt swaying and C/O dizziness Systolic blood pressure 142 mm[Hg] 142 mm[Hg] G [facility] ([facility]) supine at 9:10 am pt not c/o dizziness p upils smaller in size sitiing at 9/15am pupils dilated larger in size pt c/o dizzinessstanding at 920 am. pupils still dilated and pt swaying and C/O dizziness Diastolic blood pressure 88 mm[Hg] 88 mm[Hg] [place] [facility] [place] ([facility]) supine at 9:10 am pt not c/o dizziness p upils smaller in size sitiing at 9/15am pupils dilated larger in size pt c/o dizzinessstanding at 920 am. pupils still dilated and pt swaying and C/O dizziness Systolic blood pressure 140 mm[Hg] 140 mm[Hg] G [facility] ([facility]) supine at 9:10 am pt not c/o dizziness p upils smaller in size sitiing at 9/15am pupils dilated larger in size pt c/o dizzinessstanding at 920 am. pupils still dilated and pt swaying and C/O dizziness Diastolic blood pressure 86 mm[Hg] 86 mm[Hg] [place] [facility] [place] [facility] Systolic blood pressure 124 mm[Hg] 124 mm[Hg] G [facility] ([facility]) Oxygen saturation in Arterial blood by Pulse oximetry 98 % 98 % [place] ([facility]) PhenX - pain, abdominal - type and intensity protocol 10 10 [place] [facility] [place] ([facility]) Body temperature 99 [degF] 99 [degF] [place] [facility] [place] ([facility]) Respiratory rate 18 /min 18 /min [place] [facility] [place] ([facility]) Heart rate 84 /min 84 /min [place] [facility] [place] ([facility]) Diastolic blood pressure 82 mm[Hg] 82 mm[Hg] [place] [facility] Systolic blood pressure 140 mm[Hg] 140 mm[Hg] G [facility] ([facility]ly [facility]) Diastolic blood pressure 75 mm[Hg] 75 mm[Hg] [facility] Systolic blood pressure 128 mm[Hg] 128 mm[Hg] O [facility] Oxygen saturation in Arterial blood by Pulse oximetry 99 % 99 % [facility] Respiratory rate 20 /min 20 /min [facility] Heart rate 90 /min 90 /min [facility] Body temperature 98.7 [degF] 98.7 [degF] [facility] Diastolic blood pressure 75 mm[Hg] 75 mm[Hg] [facility] Systolic blood pressure 128 mm[Hg] 128 mm[Hg] O [facility] Oxygen saturation in Arterial blood by Pulse oximetry 99 % 99 % [facility] Respiratory rate 20 /min 20 /min [facility] Heart rate 90 /min 90 /min [facility] Body temperature 98.7 [degF] 98.7 [degF] [facility] Inhaled oxygen concentration 21 % 21 % JOE ([facility]ly [facility]) Inhaled oxygen flow rate 0 L/min 0 L/min [place] [facility] [place] ([facility]) Oxygen saturation in Arterial blood by Pulse oximetry 98 % 98 % [place] [facility] [place] ([facility]) PhenX - pain, abdominal - type and intensity protocol 10 10 [place] ([facility]) Body surface area Derived from formula 2.08 m2 2.08 m2 [place] ([facility]) Body mass index (BMI) [Ratio] 48.4 kg/m2 48.4 k g/m2 JOE (Formerly [facility]) Body weight 254 [lb_av] 254 [lb_av] JOE ([facility]) Body height 60.75 [in_i] 60.75 [in_i] [place] [facility] [place] ([facility]) Body temperature 100.6 [degF] 100.6 [degF] [place] (Formerly [facility]) Respiratory rate 20 /min 20 /min JOE ([facility]) Heart rate 106 /min 106 /min JOE ([facility]) Diastolic blood pressure 76 mm[Hg] 76 mm[Hg] JOE ([facility]) Systolic blood pressure 110 mm[Hg] 110 mm[Hg] G [place]AY ([facility]ly [facility]) Inhaled oxygen concentration 21 % 21 % JOE ([facility]) Inhaled oxygen flow rate 0 L/min 0 L/min JOE ([facility]) PhenX - pain, abdominal - type and intensity protocol 8 8 JOE ([facility]) Body weight 260 [lb_av] 260 [facility]] [facility] temperature 99 [degF] 99 [degF] JOE ([facility]) Respiratory rate 22 /min 22 /min JOE ([facility]) Heart rate rhythm 1 1 [place] Y ([facility]ly [facility]) Heart rate 92 /min 92 /min JO[facility] ([facility] Diastolic blood pressure 86 mm[Hg] 86 mm[Hg] JOE ([facility]) Systolic blood pressure 128 mm[Hg] 128 mm[Hg] G [place]AY ([facility]) Inhaled oxygen concentration 21 % 21 % 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[facility]) Oxygen saturation in Arterial blood by Pulse oximetry 98 % 98 % 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[facility]) Body weight 260 [lb_av] 260 [lb_av] 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[facility]) Diastolic blood pressure 78 mm[Hg] 78 mm[Hg] 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[facility]) Systolic blood pressure 112 mm[Hg] 112 mm[Hg] C HARTWIKER ([facility]) Heart rate 93 /min 93 /min 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[facility]) Body temperature 99 [degF] 99 [degF] [place]ART[place]IK ER ([facility]) Diastolic blood pressure 82 mm[Hg] 82 mm[Hg] JOE ([facility]) Systolic blood pressure 134 mm[Hg] 134 mm[Hg] G REEN[place]AY ([facility]ly [facility]) Inhaled oxygen concentration 21 % 21 % JOE ([facility]) Inhaled oxygen flow rate 0 L/min 0 L/min JOE ([facility]) Oxygen saturation in Arterial blood by Pulse oximetry 98 % 98 % JOE ([facility]) PhenX - pain, abdominal - type and intensity protocol 10 10 JOE ([facility]) Body weight 259 [lb_av] 259 [lb_av] [facility] Body temperature 99.3 [degF] 99.3 [degF] GREEN AY ([facility]ly [facility]) Respiratory rate 22 /min 22 /min JOE ([facility]) Heart rate rhythm 1 1 [place] Y ([facility]) Heart rate 98 /min 98 /min [facility] Diastolic blood pressure 88 mm[Hg] 88 mm[Hg] [facility] ([facility]) Systolic blood pressure 140 mm[Hg] 140 mm[Hg[facility] ID Date Data Source [id number] 05/23/2020 10:43:49 AM [facility] Name Value Range Interpretation Code Description Data Source(s) WEIGHT RECORDED 249.6 lb 249.6 lb [facility] Body height Measured 64 in 64 in [facility] ID Date Data Source [id number] 05/16/2020 08:59:26 AM [facility] Name Value Range Interpretation Code Description Data Source(s) WEIGHT RECORDED 250 lb 250 lb [facility] Body height Measured 64.02 in 64.02 in [facility] ID Date Data Source [id number] 04/11/2020 10:33:45 AM [facility] Value Range Interpretation Code Description Data Source(s) Body height Measured 64 in 64 in [facility] ID Date Data Source [id number] 04/05/2020 08:16:13 PM [facility] Value Range Interpretation Code Description Data Source(s) Body height Measured 61 in 61 in [facility] ID Date Data Source [id number] 03/25/2020 12:37:07 PM [facility] Value Range Interpretation Code Description Data Source(s) WEIGHT RECORDED 250 lb 250 lb [facility] Body height Measured 64 in 64 in [facility] ID Date Data Source [id number] 02/23/2020 06:03:54 AM [facility] Value Range Interpretation Code Description Data Source(s) WEIGHT RECORDED 252.21 lb 252.21 lb [facility] Body height Measured 60 in 60 in [facility] ID Date Data Source [id number] 03/01/2020 08:03:55 PM [facility] Value Range Interpretation Code Description Data Source(s) Body height Measured 60 in 60 in [facility] ID Date Data Source [id number] 02/29/2020 06:31:48 AM [facility] Name Value Range Interpretation Code Description Data Source(s) WEIGHT RECORDED 252.21 lb 252.21 lb [facility] Body height Measured 64 in 64 in [facility] WEIGHT RECORDED 255.73 lb 255.73 lb [facility] Body height Measured 62.01 in 62.01 in [facility] ID Date Data Source [id number] 02/13[facility] Interpretation Code Description Data Source(s) WEIGHT RECORDED 255.73 lb 255.73 lb [facility] Body height Measured 62.01 in 62.01 in [facility] ID Date Data Source [id number] 02/02/2020 12:14:38 PM [facility] Value Range Interpretation Code Description Data Source(s) WEIGHT RECORDED 255.73 lb 255.73 lb [facility] Body height Measured 62.01 in 62.01 in [facility] ID Date Data Source [id number] 02/02/2020 01:18:33 PM [facility] Value Range Interpretation Code Description Data Source(s) WEIGHT RECORDED 255.73 lb 255.73 lb [facility] Body height Measured 62 in 62 in [facility] ID Date Data Source [id number] 01/28/2020 02:26:47 PM [facility] Value Range Interpretation Code Description Data Source(s) WEIGHT RECORDED 256.6 lb 256.6 lb [facility] Body height Measured 61 in 61 in [facility] ID Date Data Source [id number] 01/26/2020 [facility] Value Range Interpretation Code Description Data Source(s) WEIGHT RECORDED 259.48 lb 259.48 lb [facility] Body height Measured 61.18 in 61.18 in [facility] ID Date Data Source [id number] 01/26/2020 09:54:59 AM [facility] Value Range Interpretation Code Description Data Source(s) WEIGHT RECORDED 259.48 lb 259.48 lb [facility] Body height Measured 61.18 in 61.18 in [facility] ID Date Data Source [id number] 12/26/2019 05:18:12 AM EDT [facility] Name Value Range Interpretation Code Description Data Source(s) WEIGHT RECORDED 259.4 lb 259.4 lb [facility] Body height Measured 61.2 in 61.2 in [facility] ID Date Data Source [id number] 11/18/2019 03:23:[address] [facility] Name Value Range Interpretation Code Description Data Source(s) WEIGHT RECORDED 262 lb 262 lb [facility] Body height Measured 61.06 in 61.06 in [facility] Patient Treatment Plan of Care Planned Activity Planned Date Details Description Data Source (s) 12 HR Guaifenesin 600 MG Extended Release Oral Tablet 07/20/2020 12:00:[address] [facility] JOE ([facility]) Flonase Allergy Relief 50 MCG/ACT Nasal Suspension 06/26/2020 12 :00:[address] [facility] JOE ([facility]) Hydroxyzine Hydrochloride 50 MG Oral Tablet 06/21/2020 12:00:[address] [facility] JOE ([facility]) Metronidazole 500 MG Oral Tablet 05/24/2020 12:00:[address] [facility] JO[facility] ([facility]) Fluconazole 150 MG Oral Tablet 05/24/2020 12:00:[address] [facility] JO[facility] ([facility]) RID Complete Lice Elimination Combination Kit 05/18/2020 12:00:[address] [facility] JOE ([facility]) Clotrimazole 20 MG/ML Vaginal Cream 05/14/2020 12:00:[address] [facility] JOE ([facility]) pantoprazole 40 MG Delayed Release Oral Tablet 05/01/2020 12:00:[address] [facility] JOE ([facility]) quetiapine 50 MG Oral Tablet 05/01/2020 12:00:00 AM EST JOE ([facility]ly [facility]) pantoprazole 40 MG Delayed Release Oral Tablet 05/01/2020 12:00:[address] [facility] JOE ([facility]) 200 ACTUAT Albuterol 0.09 MG/ACTUAT Metered Dose Inhal er [Ventolin] 04/10/2020 12:00:00 AM [facility] JOE ([facility]) AeroChamber Plus Miscellaneous 04/10/2020 12:00:00 AM [facility] JOE ([facility]) Escitalopram 10 MG Oral Tablet 04/04/2020 12:00:00 AM [facility] Hydroxyzine Hydrochloride 50 MG Oral Tablet 04/04/2020 12:00:00 AM [facility].6 MG Oral Tablet 04/02/2020 04:34:05 PM [facility] Hydroxyzine Hydrochloride 50 MG Oral Tablet 04/02/2020 04:28:59 PM [facility] pantoprazole 40 MG Delayed Release Oral Tablet 03/27/2020 12:00:00 AM [facility] ([facility]) Aluminum Hydroxide 40 MG/ML / Magnesium Hydroxide 40 MG/ML / Simethicone 4 MG/ML Oral Suspension 03/21/2020 12:00:00 AM [facility] Ondansetron 4 MG Oral Tablet 03/21/2020 12:00:00 AM [facility] quetiapine 50 MG Oral Tablet 03/12/2020 12:00:00 AM [facility] Escitalopram 10 MG Oral Tablet 03/12/2020 12:00:00 AM [facility]) pantoprazole 40 MG Delayed Release Oral Tablet 02/16/2020 12:00:00 AM [facility] quetiapine 50 MG Oral Tablet 02/16/2020 12:00:00 [facility].6 MG Oral Tablet 02/11/2020 04:45:27 AM [facility] Acetaminophen 325 MG Oral Tablet 02/01/2020 11:27:43 PM [facility], CARE [facility] 8.6 MG Oral Tablet 02/01/2020 11:27:43 PM [facility] Bisacodyl 10 MG Rectal Suppository 02/01/2020 11:27:43 PM [facility] Promethazine Hydrochloride 25 MG Oral Tablet 01/31/2020 08:55:00 PM [facility] Acetaminophen 325 MG Oral Tablet 01/30/2020 11:12:01 AM [facility] Bisacodyl 10 MG Rectal Suppository 01/30/2020 11:12:01 AM [facility] Docusate Sodium 100 MG Oral Capsule 01/30/2020 11:12:01 AM [facility], CARE [facility] 8.6 MG Oral Tablet 01/30/2020 11:12:01 AM [facility] Escitalopram 10 MG Oral Tablet 12/12/2019 12:00:00 AM [facility] sennosides, CARE HOME 8.6 MG Oral Tablet 11/15/2019 12:00:00 AM [facility] Levofloxacin 750 MG Oral Tablet 11/15/2019 12:00:00 AM [facility] Levofloxacin 750 MG Oral Tablet 11/15/2019 12:00:00 AM [facility] Ibuprofen 400 MG Oral Tablet 11/15/2019 12:00:00 AM [facility] sennosides, CARE HOME 8.6 MG Oral Tablet 11/14/2019 11:33:20 PM [facility] Ondansetron 4 MG Disintegrating Oral Tablet 08/16/2019 12:00:00 AM [facility] doxycycline hyclate 100 MG Oral Tablet 06/27/2019 12:00:00 AM [facility]) Escitalopram 10 MG Oral Tablet 06/23/2019 12:00:00 AM [facility]) Escitalopram 10 MG Oral Tablet [facility] Ibuprofen 800 MG Oral Tablet [facility]
[2020-07-25 12:43] LABS: BASO % 0.3 % (0.0-1.0); EOS # 0.1 10^3/uL (0.0-0.5); HEMATOCRIT 42.5 % (36.0-47.0); HEMOGLOBIN 13.1 g/dl (12.0-15.5); LYMPH % 23.8 % (24.0-44.0); MEAN CORPUSCULAR HEMOGLOBIN 27.8 pg (27.0-33.0); MEAN CORPUSCULAR HGB CONC 30.8 g/dl (32.0-36.5); MEAN CORPUSCULAR VOLUME 90.2 fl (80.0-96.0); MONO # 0.6 10^3/uL (0.0-0.8); MONO % 4.9 % (0.0-5.0); NEUTROPHILS # 8.6 10^3/uL (1.5-8.5); NEUTROPHILS % 69.4 % (36.0-66.0); PLATELET COUNT, AUTOMATED 385 10^3/uL (150-450); RED BLOOD COUNT 4.71 10^6/uL (4.00-5.40); WHITE BLOOD COUNT 12.5 10^3/uL (4.0-10.0)
[2020-07-25 13:11] LABS: ALBUMIN 3.7 GM/DL (3.2-5.2); ALT/SGPT 42 U/L (12-78); BILIRUBIN,DIRECT 0.1 MG/DL (0.0-0.2); BILIRUBIN,TOTAL 0.2 MG/DL (0.2-1.0); BLOOD UREA NITROGEN 12 MG/DL (7-18); CALCIUM LEVEL 9.3 MG/DL (8.5-10.1); CARBON DIOXIDE LEVEL 32 MEQ/L (21-32); CHLORIDE LEVEL 105 MEQ/L (98-107); CREATININE FOR GFR 0.61 MG/DL (0.55-1.30); GLOMERULAR FILTRATION RATE > 60.0 (>60); GLUCOSE, FASTING 89 MG/DL (70-100); LIPASE 55 U/L (73-393); POTASSIUM SERUM 4.5 MEQ/L (3.5-5.1); SODIUM LEVEL 141 MEQ/L (136-145); TOTAL PROTEIN 7.7 GM/DL (6.4-8.2)
--- NOTE | 2020-07-25 14:39 | REP ---
INDICATION: RLQ pain; r/o stone COMPARISON: Comparison CT study 10 April 2020.. TECHNIQUE: Helical scanning is acquired and 3 mm axial images are re-formatted. Coronal and sagittal MPR images are generated. FINDINGS: Digital preliminary real estate photographer radiograph demonstrates that the patient is rotated to the right. Bowel gas pattern is normal. Axial CT images demonstrate a noncalcified pulmonary nodule in the left lower lobe measuring 14 mm in greatest diameter. This is unchanged from the comparison CT study 10 April 2020. Minimal linear fibrosis is seen in the lingula. The lung bases are otherwise clear. On soft tissue window settings, there is mild to moderate diffuse fatty infiltration of the liver. The liver is felt to be mildly enlarged with a midclavicular line vertical span of 17.9 cm. There is some fat sparing near the gallbladder. No focal liver mass lesion is seen. The spleen is unremarkable. Normal adrenal glands are seen bilaterally. There is no abnormality in the gallbladder. The pancreas is unremarkable. There is minimal focal cortical scarring in the lower pole the right kidney and a small parenchymal calcification is seen at this level in the right kidney. No intrarenal nephrolithiasis is seen. No hydronephrosis is noted on either side. A normal appendix is seen posterior to the cecum. Urinary bladder is unremarkable. No uterine or ovarian abnormality is seen. Small and large bowel loops are normal in the abdomen and pelvis. No abdominal wall defect is seen. No bony destructive lesion is appreciated. IMPRESSION: No evidence urinary tract calculus or hydronephrosis. Normal appendix. Minimal cortical scarring lower pole right kidney unchanged. Moderate fatty infiltration of the liver and mild hepatomegaly unchanged. There is a 14 mm noncalcified pulmonary nodule in the left lower lobe of the lung. In this age group, this is very likely granulomatous or a hamartoma. Follow-up suggested in 6-9 months. <Electronically signed by Contreras Ulloa > 07/25/20 0834
[2020-07-25] MEDS ORDERED: MACR100C43 PO (15:17)
[2020-07-25] MEDS ORDERED: NITROFURANTOIN (MACROBID) 100 MG CAP PO ONE (15:30)
[2020-07-25 15:38] VITALS: BP 139/87
--- OUTSIDE RECORDS SUMMARY | 2020-07-25 16:07 | CCD ---
Author Author [facility] Organization [facility] Address Unknown Phone Unavailable Care Team Providers Care Merchandising Representative Name Role Phone Amara PINO III Unavailable [...] Ramirez, P Taurus Unavailable Unavailable Ming, Crystal VP [employer] Unavailable Unavailable Bethany Pabon MD Unavailable Bethany Pabon MD Unavailable Bethany Pabon MD Unavailable Isidro Cote [facility] Unavailable Unavailable LYNNE COHEN . Unavailable Unavailable Chemo, A Patricia INVESTIGATOR OPERATOR Unavailable Unavailable [place], A Patricia INVESTIGATOR OPERATOR Unavailable Unavailable [place], A Patricia INVESTIGATOR OPERATOR Unavailable Unavailable [place], A Patricia INVESTIGATOR OPERATOR Unavailable Unavailable [place], A Patricia INVESTIGATOR OPERATOR Unavailable Unavailable Chemo, A Patricia INVESTIGATOR OPERATOR Unavailable Unavailable [place], A Patricia INVESTIGATOR OPERATOR Unavailable Unavailable Chemo, A Patricia INVESTIGATOR OPERATOR Unavailable Unavailable [place], A Patricia INVESTIGATOR OPERATOR Unavailable Unavailable [place], A Patricai INVESTIGATOR OPERATOR Unavailable Unavailable [place], A Patricia INVESTIGATOR OPERATOR Unavailable Unavailable [place], A Patricia INVESTIGATOR OPERATOR Unavailable Unavailable [place], A Patricai INVESTIGATOR OPERATOR Unavailable Unavailable Chemo, A Patricia INVESTIGATOR OPERATOR Unavailable Unavailable [place], A Patricia INVESTIGATOR OPERATOR Unavailable Unavailable [place], A Patricia INVESTIGATOR OPERATOR Unavailable Unavailable [place], A Patricia INVESTIGATOR OPERATOR Unavailable Unavailable Chemo, A Patricia INVESTIGATOR OPERATOR Unavailable Unavailable Chemo, A Patricia INVESTIGATOR OPERATOR Unavailable Unavailable Chemo, A Patricia INVESTIGATOR OPERATOR Unavailable Unavailable Chemo, A Patricia INVESTIGATOR OPERATOR Unavailable Unavailable MIKEL MEJIA MD Unavailable MIKEL [...] J Harriet DO Unavailable Unavailable Carguello, J Harreit DO Unavailable Unavailable Carguello, J Ahrriet DO Unavailable Unavailable Carguello, J Harriet DO [...] CRYSTAL III, J PHOEBE Unavailable Unavailable Jaimie [employer]S OFFICER/DOO, Radha Unavailable PATRICIA II, F FABIAN DO [...] FABIAN DO Unavailable Unavailable Crispin, M Aura DATABASE PROGRAMMER ANALYST Unavailable Unavailable Crispin, M Aura DATABASE PROGRAMMER ANALYST Unavailable Unavailable Crispin, M Aura DATABASE PROGRAMMER ANALYST Unavailable Unavailable Crispin, M Aura DATABASE PROGRAMMER ANALYST Unavailable Unavailable Crispin, M Aura DATABASE PROGRAMMER ANALYST Unavailable Unavailable Crispin, M Aura DATABASE PROGRAMMER ANALYST Unavailable Unavailable Crispin, M Aura DATABASE PROGRAMMER ANALYST Unavailable Unavailable Crispin, M Aura DATABASE PROGRAMMER ANALYST Unavailable Unavailable Crispin, M Aura DATABASE PROGRAMMER ANALYST Unavailable Unavailable Crispin, M Aura DATABASE PROGRAMMER ANALYST Unavailable Unavailable Crispin, M Aura DATABASE PROGRAMMER ANALYST Unavailable Unavailable Crispin, M Aura DATABASE PROGRAMMER ANALYST Unavailable Unavailable Crispin, M Aura DATABASE PROGRAMMER ANALYST Unavailable Unavailable Crispin, M Aura DATABASE PROGRAMMER ANALYST Unavailable Unavailable Crispin, M Aura DATABASE PROGRAMMER ANALYST Unavailable Unavailable Crispin, M Aura DATABASE PROGRAMMER ANALYST Unavailable Unavailable Crispin, M Aura DATABASE PROGRAMMER ANALYST Unavailable Unavailable Crispin, M Aura DATABASE PROGRAMMER ANALYST Unavailable Unavailable Crispin, M Aura DATABASE PROGRAMMER ANALYST Unavailable Unavailable Crispin, M Aura DATABASE PROGRAMMER ANALYST Unavailable Unavailable Crispin, M Aura DATABASE PROGRAMMER ANALYST Unavailable Unavailable Crispin, M Aura DATABASE PROGRAMMER ANALYST Unavailable Unavailable Crispin, M Aura DATABASE PROGRAMMER ANALYST Unavailable Unavailable Crispin, M Aura DATABASE PROGRAMMER ANALYST Unavailable Unavailable Crispin, M Aura DATABASE PROGRAMMER ANALYST Unavailable Unavailable Crispin, M Aura DATABASE PROGRAMMER ANALYST Unavailable Unavailable Crispin, M Aura DATABASE PROGRAMMER ANALYST Unavailable Unavailable Crispin, M Aura DATABASE PROGRAMMER ANALYST Unavailable Unavailable Crispin, M Aura DATABASE PROGRAMMER ANALYST Unavailable Unavailable Brushaber, M Trang INVESTIGATOR OPERATOR Unavailable Unavailable Brushaber, M Trang INVESTIGATOR OPERATOR Unavailable Unavailable Brushaber, M Trang INVESTIGATOR OPERATOR Unavailable Unavailable Brushaber, M Trang INVESTIGATOR OPERATOR Unavailable Unavailable Brushaber, M Trang INVESTIGATOR OPERATOR Unavailable Unavailable Brushaber, M Trang INVESTIGATOR OPERATOR Unavailable Unavailable Brushaber, M Trang INVESTIGATOR OPERATOR Unavailable Unavailable Brushaber, M Trang INVESTIGATOR OPERATOR Unavailable Unavailable Brushaber, M Trang INVESTIGATOR OPERATOR Unavailable Unavailable Brushaber, M Trang INVESTIGATOR OPERATOR Unavailable Unavailable Brushaber, M Trang INVESTIGATOR OPERATOR Unavailable Unavailable Brushaber, M Trang INVESTIGATOR OPERATOR Unavailable Unavailable Brushaber, M Trang INVESTIGATOR OPERATOR Unavailable Unavailable Brushaber, M Trang INVESTIGATOR OPERATOR Unavailable Unavailable Brushaber, M Trang INVESTIGATOR OPERATOR Unavailable Unavailable Brushaber, M Trang INVESTIGATOR OPERATOR Unavailable Unavailable Brushaber, M Trang INVESTIGATOR OPERATOR Unavailable Unavailable Brushaber, M Trang INVESTIGATOR OPERATOR Unavailable Unavailable Brushaber, M Trang INVESTIGATOR OPERATOR Unavailable Unavailable Brushaber, M Trang INVESTIGATOR OPERATOR Unavailable Unavailable Brushaber, M Trang INVESTIGATOR OPERATOR Unavailable Unavailable Brushaber, M Trang INVESTIGATOR OPERATOR Unavailable Unavailable Brushaber, M Trang INVESTIGATOR OPERATOR Unavailable Unavailable Brushaber, M Trang INVESTIGATOR OPERATOR Unavailable Unavailable Brushaber, M Trang INVESTIGATOR OPERATOR Unavailable Unavailable Brushaber, M Trang INVESTIGATOR OPERATOR Unavailable Unavailable Brushaber, M Trang INVESTIGATOR OPERATOR Unavailable Unavailable Brushaber, M Trang INVESTIGATOR OPERATOR Unavailable Unavailable Brushaber, M Trang INVESTIGATOR OPERATOR Unavailable Unavailable Brushaber, M Trang INVESTIGATOR OPERATOR Unavailable Unavailable Brushaber, M Trang INVESTIGATOR OPERATOR Unavailable Unavailable Brushaber, M Trang INVESTIGATOR OPERATOR Unavailable Unavailable Brushaber, M Trang INVESTIGATOR OPERATOR Unavailable Unavailable Brushaber, M Trang INVESTIGATOR OPERATOR Unavailable Unavailable GLADISCleo PHELPS MD Unavailable Unavailable [...] Vicky Bowen MD Unavailable Unavailable HALL, JUAN INVESTIGATOR OPERATOR Unavailable Unavailable HALL, JUAN INVESTIGATOR OPERATOR Unavailable Unavailable HALL JUAN INVESTIGATOR OPERATOR Unavailable Unavailable Amara SHETH MD Unavailable Unavailable Amara SHETH MD Unavailable Unavailable Amara SHETH MD Unavailable Unavailable Amara SHETH MD Unavailable Unavailable Amara SHETH MD Unavailable Unavailable Amara SHETH MD Unavailable Unavailable Amara SHETH MD Unavailable Unavailable Amara SHETH MD Unavailable Unavailable Amara SHETH MD Unavailable Unavailable Llanos, Semaj Demetrice MHC Unavailable Unavailable Althouse, Mitzy INVESTIGATOR OPERATOR Unavailable Unavailable Semaj COSTA MD Unavailable Unavailable [...] Unavailable Meenakshi, Gopaleh MD Unavailable Unavailable Meenakshi, aKrenjeeh MD Unavailable Unavailable Meenakshi, Karenjeeh MD Unavailable [...] JAYME PA Unavailable Unavailable Shaben, E Fariba DATABASE PROGRAMMER ANALYST Unavailable Unavailable Shaben, E Fariba DATABASE PROGRAMMER ANALYST Unavailable Unavailable Shaben, E Fariba DATABASE PROGRAMMER ANALYST Unavailable Unavailable Shaben, E Fariba DATABASE PROGRAMMER ANALYST Unavailable Unavailable Shaben, E Fariba DATABASE PROGRAMMER ANALYST Unavailable Unavailable Shaben, E Fariba DATABASE PROGRAMMER ANALYST Unavailable Unavailable Shaben, E Fariba DATABASE PROGRAMMER ANALYST Unavailable Unavailable Shaben, E Fariba DATABASE PROGRAMMER ANALYST Unavailable Unavailable Shaben, E Fariba DATABASE PROGRAMMER ANALYST Unavailable Unavailable Shaben, E Fariba DATABASE PROGRAMMER ANALYST Unavailable Unavailable Shaben, E Fariba DATABASE PROGRAMMER ANALYST Unavailable Unavailable Shaben, E Fariba DATABASE PROGRAMMER ANALYST Unavailable Unavailable Shaben, E Fariba DATABASE PROGRAMMER ANALYST Unavailable Unavailable Shaben, E Fariba DATABASE PROGRAMMER ANALYST Unavailable Unavailable Shaben, E Fariba DATABASE PROGRAMMER ANALYST Unavailable Unavailable Shaben, E Fariba DATABASE PROGRAMMER ANALYST Unavailable Unavailable Shaben, E Fariba DATABASE PROGRAMMER ANALYST Unavailable Unavailable Shaben, E Fariba DATABASE PROGRAMMER ANALYST Unavailable Unavailable Shaben, E Fariba DATABASE PROGRAMMER ANALYST Unavailable Unavailable Shaben, E Fariba DATABASE PROGRAMMER ANALYST Unavailable Unavailable Shaben, E Fariba DATABASE PROGRAMMER ANALYST Unavailable Unavailable Shaben, E Fariba DATABASE PROGRAMMER ANALYST Unavailable Unavailable Shaben, E Fariba DATABASE PROGRAMMER ANALYST Unavailable Unavailable Shaben, E Fariba DATABASE PROGRAMMER ANALYST Unavailable Unavailable Fern ARANA MD Unavailable Unavailable [...] Carlos MACK MD Unavailable Unavailable GRANT, ELKE INVESTIGATOR OPERATOR Unavailable Unavaila ble LETY-FRAUSTO, ELKE INVESTIGATOR OPERATOR Unavailable Unavaila ble LETY-FRAUSTO, ELKE INVESTIGATOR OPERATOR Unavailable Unavaila ble LETY-FRAUSTO, ELKE INVESTIGATOR OPERATOR Unavailable Unavaila ble LETY-FRAUSTO, ELKE INVESTIGATOR OPERATOR Unavailable Unavaila ble LETY-FRAUSTO, ELKE INVESTIGATOR OPERATOR Unavailable Unavaila ble LETY-FRAUSTO, ELKE INVESTIGATOR OPERATOR Unavailable Unavaila ble LETY-FRAUSTO, FARIBA ONEIL INVESTIGATOR OPERATOR Unavailable Unavaila ble LETY-FRAUSTO, FARIBA ONEIL INVESTIGATOR OPERATOR Unavailable Unavaila ble LETY-FRAUSTO, FARIBA ONEIL INVESTIGATOR OPERATOR Unavailable Unavaila ble LETY-FRAUSTO, FARIBA ONEIL INVESTIGATOR OPERATOR Unavailable Unavaila ble LETY-FRAUSTO, FARIBA ONEIL INVESTIGATOR OPERATOR Unavailable Unavaila ble LETY-FRAUSTO, FARIBA ONEIL INVESTIGATOR OPERATOR Unavailable Unavaila ble LETY-FRAUSTO, FARIBA ONEIL INVESTIGATOR OPERATOR Unavailable Unavaila ble LETY-FRAUSTO, FARIBA ONEIL INVESTIGATOR OPERATOR Unavailable Unavaila ble LETY-FRAUSTO, FARIBA ONEIL INVESTIGATOR OPERATOR Unavailable Unavaila ble LETY-FRAUSTO, FARIBA ONEIL INVESTIGATOR OPERATOR Unavailable Unavaila ble LETY-FRAUSTO, FARIBA ONEIL INVESTIGATOR OPERATOR Unavailable Unavaila ble LETY-FRAUSTO, FARIBA ONEIL INVESTIGATOR OPERATOR Unavailable Unavaila ble LETY-FRAUSTO, FARIBA ONEIL INVESTIGATOR OPERATOR Unavailable Unavaila ble LETY-FRAUSTO, FARIBA ONEIL INVESTIGATOR OPERATOR Unavailable Unavaila ble LETY-FRAUSTO, FARIBA ONEIL INVESTIGATOR OPERATOR Unavailable Unavaila ble LETY-FRAUSTO, FARIBA ONEIL INVESTIGATOR OPERATOR Unavailable Unavaila ble LETY-FRAUSTO, FARIBA ONEIL INVESTIGATOR OPERATOR Unavailable Unavaila ble LETY-FRAUSTO, FARIBA ONEIL INVESTIGATOR OPERATOR Unavailable Unavaila ble LETY-FRAUSTO, FARIBA ONEIL INVESTIGATOR OPERATOR Unavailable Unavaila ble LETY-FRAUSTO, FARIBA ONEIL INVESTIGATOR OPERATOR Unavailable Unavaila ble LETY-FRAUSTO, FARIBA ONEIL INVESTIGATOR OPERATOR Unavailable Unavaila ble LETY-FRAUSTO, FARIBA ONEIL INVESTIGATOR OPERATOR Unavailable Unavaila ble LETY-FRAUSTO, FARIBA ONEIL INVESTIGATOR OPERATOR Unavailable Unavaila ble LETY-FRAUSTO, FARIBA ONEIL INVESTIGATOR OPERATOR Unavailable Unavaila ble LETY-FRAUSTO, FARIBA ONEIL INVESTIGATOR OPERATOR Unavailable Unavaila ble LETY-FRAUSTO, FARIBA ONEIL INVESTIGATOR OPERATOR Unavailable Unavaila ble LETY-FRAUSTO, FARIBA ONEIL INVESTIGATOR OPERATOR Unavailable Unavaila ble LETY-FRAUSTO, FARIBA ONEIL INVESTIGATOR OPERATOR Unavailable Unavaila ble LETY-FRAUSTO, FARIBA ONEIL INVESTIGATOR OPERATOR Unavailable Unavaila ble LETY-FRAUSTO, FARIBA ONEIL INVESTIGATOR OPERATOR Unavailable Unavaila ble LETY-FRAUSTO, FARIBA ONEIL INVESTIGATOR OPERATOR Unavailable Unavaila ble LETY-FRAUSTO, FARIBA ONEIL INVESTIGATOR OPERATOR Unavailable Unavaila ble LETY-FRAUSTO, FARIBA ONEIL INVESTIGATOR OPERATOR Unavailable Unavaila ble LETY-FRAUSTO, ELKE INVESTIGATOR OPERATOR Unavailable Unavaila ble LETY-FRAUSTO, ELKE INVESTIGATOR OPERATOR Unavailable Unavaila ble LETY-FRAUSTO, ELKE INVESTIGATOR OPERATOR Unavailable Unavaila ble LETY-FRAUSTO, ELKE INVESTIGATOR OPERATOR Unavailable Unavaila ble LETY-FRAUSTO, ELKE INVESTIGATOR OPERATOR Unavailable Unavaila ble LETY-FRAUSTO, ELKE INVESTIGATOR OPERATOR Unavailable Unavaila ble Panda Kim MD Unavailable [...] Unavailable Harjinder SUGGS MD Unavailable Unavailable Edy LAU MD Unavailable Unavailable Edy LUA MD Unavailable [...] Ngo MD Unavailable Unavailable ZAHIRA, L NICOLASA INVESTIGATOR OPERATOR Unavailable Unavailable ZAHIRA, L NICOLASA INVESTIGATOR OPERATOR Unavailable Unavailable ZAHIRA, L NICOLASA INVESTIGATOR OPERATOR Unavailable Unavailable ZAHIRA, L NICOLASA INVESTIGATOR OPERATOR Unavailable Unavailable ZAHIRA, L NICOLASA INVESTIGATOR OPERATOR Unavailable Unavailable ZAHRIA, L NICOLASA INVESTIGATOR OPERATOR Unavailable Unavailable ZAHIRA, L NICOLASA INVESTIGATOR OPERATOR Unavailable Unavailable ZAHIRA, L NICOLASA INVESTIGATOR OPERATOR Unavailable Unavailable ZAHIRA, L NICOLASA INVESTIGATOR OPERATOR Unavailable Unavailable ZAHIRA, L NICOLASA INVESTIGATOR OPERATOR Unavailable Unavailable ZAHIRA, L NICOLASA INVESTIGATOR OPERATOR Unavailable Unavailable ZAHIRA, L NICOLASA INVESTIGATOR OPERATOR Unavailable Unavailable ZAHIRA, L NICOLASA INVESTIGATOR OPERATOR Unavailable Unavailable ZAHIRA, L NICOLASA INVESTIGATOR OPERATOR Unavailable Unavailable ZAHIRA, L NICOLASA INVESTIGATOR OPERATOR Unavailable Unavailable ZAHIRA, L NICOLASA INVESTIGATOR OPERATOR Unavailable Unavailable ZAHIRA, L NICOLASA INVESTIGATOR OPERATOR Unavailable Unavailable ZAHIRA, L NICOLASA INVESTIGATOR OPERATOR Unavailable Unavailable ZAHIRA, L NICOLASA INVESTIGATOR OPERATOR Unavailable Unavailable ZAHIRA, L NICOLASA INVESTIGATOR OPERATOR Unavailable Unavailable ZAHIRA, L NICOLASA INVESTIGATOR OPERATOR Unavailable Unavailable ZAHIRA, L NICOLASA INVESTIGATOR OPERATOR Unavailable Unavailable ZAHIRA, L NICOLASA INVESTIGATOR OPERATOR Unavailable Unavailable ZAHIRA, L NICOLASA INVESTIGATOR OPERATOR Unavailable Unavailable ZAHIRA, L NICOLASA INVESTIGATOR OPERATOR Unavailable Unavailable ZAHIRA, L NICOLASA INVESTIGATOR OPERATOR Unavailable Unavailable ZAHIRA, L NICOLASA INVESTIGATOR OPERATOR Unavailable Unavailable ZAHIRA, L NICOLASA INVESTIGATOR OPERATOR Unavailable Unavailable ZAHIRA, L NICOLASA INVESTIGATOR OPERATOR Unavailable Unavailable ZAHIRA, L NICOLASA INVESTIGATOR OPERATOR Unavailable Unavailable ZAHIRA, L NICOLASA INVESTIGATOR OPERATOR Unavailable Unavailable ZAHIRA, L NICOLASA INVESTIGATOR OPERATOR Unavailable Unavailable ZAHIRA, L NICOLASA INVESTIGATOR OPERATOR Unavailable Unavailable ZAHIRA, L NICOLASA INVESTIGATOR OPERATOR Unavailable Unavailable ZAHIRA, L NICOLASA INVESTIGATOR OPERATOR Unavailable Unavailable Fern MEJIA MD Unavailable Fern MEJIA MD Unavailable Fern MEJIA MD Unavailable Fern MEJIA MD Unavailable Fern MEJIA MD Unavailable Flor ., Johana DO Unavailable Unavailable Flor ., Johana DO Unavailable Unavailable KETTY MONTE MD Unavailable Unavailable KETYT MONTE MD Unavailable Unavailable KETTY MONTE MD [...] Carlos Issa MD Unavailable Unavailable Alexsandra, Bro INVESTIGATOR OPERATOR Unavailable Alexsandra, Bro INVESTIGATOR OPERATOR Unavailable Alexsandra, Bro INVESTIGATOR OPERATOR Unavailable Balog, Dolores Unavailable Unavailable Balog, Dolores Unavailable Unavailable Balog, Dolores Unavailable Unavailable Balog, Dolores Unavailable Unavailable Balog, Dolores Unavailable Unavailable Mckenzie, I Anay INVESTIGATOR OPERATOR Unavailable Unavailable Mckenzie, I Anay INVESTIGATOR OPERATOR Unavailable Unavailable Mckenzie, I Anay INVESTIGATOR OPERATOR Unavailable Unavailable Mckenzie, I Anay INVESTIGATOR OPERATOR Unavailable Unavailable Mckenzie, I Anay INVESTIGATOR OPERATOR Unavailable Unavailable Mckenzie, I Anay INVESTIGATOR OPERATOR Unavailable Unavailable Mckenzie, I Anay INVESTIGATOR OPERATOR Unavailable Unavailable Mckenzie, I Anay INVESTIGATOR OPERATOR Unavailable Unavailable Mckenzie, I Anay INVESTIGATOR OPERATOR Unavailable Unavailable Mckenzie, I Anay INVESTIGATOR OPERATOR Unavailable Unavailable Mckenzie, I Anay INVESTIGATOR OPERATOR Unavailable Unavailable Mckenzie, I Anay INVESTIGATOR OPERATOR Unavailable Unavailable Mckenzie, I Anay INVESTIGATOR OPERATOR Unavailable Unavailable Mckenzie, I Anay INVESTIGATOR OPERATOR Unavailable Unavailable Mckenzie, I Anay INVESTIGATOR OPERATOR Unavailable Unavailable Mckenzie, I Anay INVESTIGATOR OPERATOR Unavailable Unavailable Mckenzie, I Anay INVESTIGATOR OPERATOR Unavailable Unavailable Mckenzie, I Anay INVESTIGATOR OPERATOR Unavailable Unavailable Mckenzie, I Anay INVESTIGATOR OPERATOR Unavailable Unavailable Mckenzie, I Anay INVESTIGATOR OPERATOR Unavailable Unavailable Mckenzie, I Anay INVESTIGATOR OPERATOR Unavailable Unavailable Mckenzie, I Anay INVESTIGATOR OPERATOR Unavailable Unavailable Mckenzie, I Anay INVESTIGATOR OPERATOR Unavailable Unavailable Mckenzie, I Anay INVESTIGATOR OPERATOR Unavailable Unavailable Mckenzie, I Anay INVESTIGATOR OPERATOR Unavailable Unavailable Mckenzie, I Anay INVESTIGATOR OPERATOR Unavailable Unavailable Mckenzie, I Anay INVESTIGATOR OPERATOR Unavailable Unavailable Mckenzie, I Anay INVESTIGATOR OPERATOR Unavailable Unavailable Mckenzie, I Anay INVESTIGATOR OPERATOR Unavailable Unavailable Mckenzie, I Anay INVESTIGATOR OPERATOR Unavailable Unavailable Mckenzie, I Anay INVESTIGATOR OPERATOR Unavailable Unavailable Mckenzie, I Anay INVESTIGATOR OPERATOR Unavailable Unavailable Mckenzie, I Anay INVESTIGATOR OPERATOR Unavailable Unavailable Mckenzie, I Anay INVESTIGATOR OPERATOR Unavailable Unavailable Mckenzie, I Anay INVESTIGATOR OPERATOR Unavailable Unavailable Mckenzie, I Anay INVESTIGATOR OPERATOR Unavailable Unavailable Mckenzie, I Anay INVESTIGATOR OPERATOR Unavailable Unavailable Mckenzie, I Anay INVESTIGATOR OPERATOR Unavailable Unavailable Mckenzie, I Anay INVESTIGATOR OPERATOR Unavailable Unavailable Mckenzie, I Anay INVESTIGATOR OPERATOR Unavailable Unavailable Mckenzie, I Anay INVESTIGATOR OPERATOR Unavailable Unavailable Mckenzie, I Anay INVESTIGATOR OPERATOR Unavailable Unavailable Mckenzie, I Anay INVESTIGATOR OPERATOR Unavailable Unavailable Mckenzie, I Anay INVESTIGATOR OPERATOR Unavailable Unavailable Mckenzie, I Anay INVESTIGATOR OPERATOR Unavailable Unavailable Mckenzie, I Anay INVESTIGATOR OPERATOR Unavailable Unavailable Mckenzie, I Anay INVESTIGATOR OPERATOR Unavailable Unavailable Mckenzie, I Anay INVESTIGATOR OPERATOR Unavailable Unavailable Mckenzie, I Anay INVESTIGATOR OPERATOR Unavailable Unavailable Mckenzie, I Anay INVESTIGATOR OPERATOR Unavailable Unavailable Mckenzie, I Anay INVESTIGATOR OPERATOR Unavailable Unavailable Mckenzie, I Anay INVESTIGATOR OPERATOR Unavailable Unavailable Mckenzie, I Anay INVESTIGATOR OPERATOR Unavailable Unavailable Mckenzie, I Anay INVESTIGATOR OPERATOR Unavailable Unavailable Mckenzie, I Anay INVESTIGATOR OPERATOR Unavailable Unavailable Mckenzie, I Anay INVESTIGATOR OPERATOR Unavailable Unavailable Mckenzie, I Anay INVESTIGATOR OPERATOR Unavailable Unavailable Mckenzie, I Anay INVESTIGATOR OPERATOR Unavailable Unavailable Mckenzie, I Anay INVESTIGATOR OPERATOR Unavailable Unavailable Mckenzie, I Anay INVESTIGATOR OPERATOR Unavailable Unavailable Mckenzie, I Anay INVESTIGATOR OPERATOR Unavailable Unavailable Mckenzie, I Anay INVESTIGATOR OPERATOR Unavailable Unavailable Mckenzie, I Anay INVESTIGATOR OPERATOR Unavailable Unavailable Mckenzie, I Anay INVESTIGATOR OPERATOR Unavailable Unavailable Mckenzie, I Aany INVESTIGATOR OPERATOR Unavailable Unavailable Virgen, C Monika Unavailable Unavailable [...] P Cristóbal DO Unavailable Unavailable Paramjit, P Cirstóbal DO Unavailable Unavailable Paramjit, P Cristóbal DO [...] Unavailable Carguello J Harriet DO Unavailable Unavailable CarguelloAamra Harriet DO Unavailable Unavailable CarguelloAmara Harriet DO [...] Unavailable CarguelloAmara Harriet DO Unavailable Unavailable CarguelloAmara Hariret DO Unavailable Unavailable CarguelloAmara Harriet DO Unavailable [...] J Harriet DO Unavailable Unavailable Carguello, J Hariret DO Unavailable Unavailable Carguello, J Harriet DO [...] is protected by Article 27-F of the [facility] Public Health law. If you continue you may have access to information: Regarding HIV / AIDS; Provided by facilities licensed or operated by the [facility] Office of Mental Health; or Provided by the [facility] Office for People With Developmental Disabilities. If such information is present, then the following [facility] mandated warning applies: This information has been [...] further disc losure. Advance Directives Directive Description Associate Professor Of Automation Front Office Spec Status Observation Descr iption Data Source(s) Ebola Screening Performed completed Ebol a Screening Performed [facility] ([facility]) Note: Within the last month, have you tr aveled outside of the [place]? -NO Ebola Screening Performed completed Ebol a Screening Performed [facility] ([facility]) Note: Within the last month, have you tr aveled outside of the [place]? -NO Ebola Screening Performed completed Ebol a Screening Performed [facility] ([facility]) Note: Within the last month, have you tr aveled outside of the [place]? -NO Ebola Screening Performed completed Ebol a Screening Performed [facility] ([facility]) Note: Within the last month, have you tr aveled outside of the [place]? -NO Allergies and Adverse Reactions Type Description Substance Reaction Status Data Source(s ) Drug allergy Penicillins Penicillin AD[facility]AL [facility] Class NO KNOWN ALLERGIES NO KNOWN ALLERGIES [facility] Drug Class PENICILLINS Penicillin Other Hives [facility] Family History Family Member Name Family Member Gender Family Member Status Date o f Status Description Data Source(s) Unknown Condition [facility] Unknown Condition [facility] Unknown Condition [facility] Unknown Condition [facility] Unknown Condition [facility] Unknown Condition [facility] Unknown Condition [facility] Unknown Condition [facility] Unknown Condition [facility] Unknown Condition [facility] Unknown Condition [facility] Encounters Encounter Providers Location Date Indications Data Source(s ) Outpatient Attender: NICOLASA PABLO NP 07/18/2020 1 1:00:00 PM EST 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</td><td>07/18/2020</td><td>1:52PM</td><td>2:40PM</td><td><content ID="encounterDiagnosisID1-0">Pharyngitis Acute</content></td> Attender: NICOLASA PABLO NP [facility] 07/18/2020 01:52:00 PM EST - 07/18/2020 02:40:05 PM EST Pharyngitis AcutePharyngitis Acute [facility] ([facility]) Pharyngitis Acute Pharyngitis Acute Outpatient<td ID="encounterTypeDescripti onID0">Acute Follow-up Telehealth</td><td>Fariba Santana NP</td><td>[facility]</td><td>07/20/2020</td><td>07/18/2020 10:10AM</td><td>1:01PM</td><td> <content ID="encounterDiagnosisID0-0">Pharyngitis</content></td> Attender: Fariba TOMPKINS [facility] 07/18/2020 10:10:00 AM EST - 07/20/2020 01:01:11 PM EST PharyngitisPharyngitis [facility] ([facility]) Pharyngitis Pharyngitis Emergency Attender: Janett Kim MD 07/04 07:22:00 PM EST - 07/04/2020 08:42:00 PM EST Syncope [facility] Syncope Patient discharged. Outpatient<td ID="encounterTypeDescripti onID2">Acute L1</td><td>Aura JOVELP</td><td>[facility]</td><td>06/26/2020</td><td>1:39PM</td><td>2:19PM</td><td><content ID="encounterDiagnosisID2-0">Vaginitis</content>, <content ID="encounterDiagnosisID2-1">Viral Syndrome</content></td> Attender: Aura Roa [facility] 06/26/2020 01:39:00 PM EST - 06/26/2020 02:19:47 PM EST Viral SyndromeVaginitisViral SyndromeVaginitis [place] ([facility]) Viral Syndrome Vaginitis Viral Syndrome Vaginitis Outpatient Attender: Aura TOMPKINS 06/26/2020 12:00: 00 AM EST [facility] Emergency Attender: Rob Yuen DO 2020 05:38:00 PM EST - 06/20/2020 06:00:00 PM EST Physical [facility]am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 GUNN/DOAura 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</td><td>08/23/2019</td><td>08/18/2019 11:20AM</td><td>1:14PM</td><td> <content ID="becayfxwwNesknynwqXM39-2">Dizziness</content>, <content ID="kivaiyeqnJnubuqyuvMN78-9">Depression</content>, <content ID="ytflqaosrRojphyqwvJP81-5">Lactose Intolerance</content>, <content ID="pulrktlzaRttvmcislFN55-6">Lung Neoplasm Uncertain Behavior</content></td> Attender: Harriet Marie DO [facility] 08/23/2019 11:20:00 AM EDT - 08/23/2019 01:14:32 [...] Enamorado NP 08/18/2019 09:39:00 AM EST lab [facility] lab Admission cancelled. Disregard status an d admitted date. Outpatient<td ID="encounterTypeDescripti onID29">Hospital Follow-up</td><td>Trang Enamorado DATABASE PROGRAMMER ANALYST</td><td>[facility]</td><td>08/18/2019</td><td>7:40AM</td><td>9:35AM</td><td><content ID="zzlktqhjfLkpkwrzjoGR51-2">Abdominal Pain</content>, <content ID="oiwnyttjsXxtmswideBD18-1">Dizziness</content>, <content ID="zwtlpdhnkKeileltkvJP94-6">Pharyngitis</content></td> Attender: Trang Enamorado NP [facility] 08/18/2019 07:40:00 AM EST - 08/18/2019 09:35:58 [...] PM EST - 06/27/2019 11:59:00 PM EST [place] ([facility]) Emergency Attender: Krystian BelcherA-ADULTERM 08/2019 12:00:00 AM EST - 08/16/2019 10:28:00 AM EST Nausea [facility] Nausea Patient discharged. Emergency Attender: DEFAULT / GENE WILLIAM / UNKNOWN PROVIDER ALIASES Referrer: JUAN HALL NP CP-ADULTERM 08/15/2019 11:13:33 PM ES T - 08/16/2019 04:08:00 AM EST Generalized abdominal pain [facility] Generalized abdominal pain Patient discharged. Emergency 08/15/2019 02:30:00 PM EST - 020 05:26:00 PM EST Other [facility] Other Patient discharged. Emergency Attender: Cristóbal Yusuf DO 2019 10:35:00 AM EST - 08/15/2019 01:28:00 PM EST [facility] / Dizzy, Nausea [facility] / Dizzy, Nausea Patient discharged. 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 06/27/2019 09:24:00 AM EST - 06/27/2019 10:37:19 [...] Sinusitis Outpatient<td ID="encounterTypeDescripti onID29">Hospital Follow- up</td><td>Harriet Marie DO</td><td>[facility]</td><td>06/23/2019</td><td><content ID="mdgukkkabKnfgtqgyvTN27-7"> Urinary Tract Infection</content>, <content ID="geltvxvjsIdhgmvyquIL47- 1">Ovarian Cyst Left</content>, <content ID="owhneyracNbihwjkdeLC14-3">Abdominal Pain--epigastric</content>, <content ID="qlrjfhlmgYioqqurduCG66-2">Elevated Liver Enzymes</content></td> Attender: Harriet Marie DO 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</td><td>06/02/2019</td><td><content ID="vlkwdrpuoYfrwnoggiPP41-5">Abdominal Pain</content>, <content ID="nlcnkxnufAxtdqhcvnUW85-9">Nausea</content>, <content ID="ajtbtuiijBtoohapbuAE26-3">Chest Pain</content>, <content ID="hiojggmovAvxxnewxcTH53-4">Assessment of Dizziness</content></td> Attender: Patricia Mclain NP [facility] 06/02/2019 09:03:00 AM EST - 06/02/2019 11:18:27 [...] PainNauseaAbdominal PainAssessment of DizzinessChest PainNauseaAbdominal Pain [facility] Assessment of Dizziness Chest Pain Nausea [...] Abdominal Pain Unknown<td ID="encounterTypeDescriptionI D31">[Patient Encounter]</td><td>Jere Simpson DDS</td><td>[facility]</td><td>05/27/2019</td><td></td> Attender: Jere Simpson DDS [facility] 05/27/2019 12:00:00 AM EST - 05/27/2019 11:59:00 PM EST [facility] ([facility]) Emergency Attender: Mikel Baptiste 9 11:21:00 AM EST - 05/09/2019 03:32:00 PM EST Abd [facility] Pain Patient discharged. Immunizations Vaccine Date Status Description Data Source(s) Note that this vaccine name has changed. See also Td (adult). It is not adsorbed. 05/01/2020 01:08:00 PM EST completed Td 2 05/01/2020 Complete (Refused - Patient objection) [facility] ( [facility]) IIV3. This is one of two codes replacing CVX 15, which is being retired. 03/12/2020 09:13:00 AM EDT completed Influenza, seasonal, injectable 3 03/12/2020 Right Arm Complete (Administered) [facility] ([facility]) Medications Medication Brand Name Start Date [...] guaifenesin 600 MG Extended Release Oral Tablet [place] ([facility]) Flonase Allergy Relief 50 MCG/ACT Nasal Suspension Satish nase Allergy Relief 50 MCG/ACT Nasal Suspension 06/26/2020 12:00:00 AM EST active fluticasone propionate 0.05 MG/ACTUAT Metered Dose Nasal [place] [Flonase] [place] ([facility]) Hydroxyzine Hydrochloride 50 MG Oral Tablet hydrOXYzin e HCl 50 MG Oral Tablet hydrOXYzine HCl 50 MG Oral Tablet 06/21/2020 12:00:00 AM EST active hydroxyzine hydrochloride 50 MG Oral Tablet [place] ( [facility]) Hydroxyzine Hydrochloride 50 MG Oral Tablet hydrOXYzin e HCl 50 MG Oral Tablet hydrOXYzine HCl 50 MG Oral Tablet 06/20/2020 12:00:00 AM EST aborted hydroxyzine hydrochloride 50 MG Oral Tab let [place] ([facility]) Fluconazole 150 MG Oral Tablet Fluconazole 150 MG Oral Table t 05/24/2020 12:00:00 AM EST aborted flucona zole 150 MG Oral Tablet [place] ([facility]) Metronidazole 500 MG Oral Tablet metroNIDAZOLE 500 MG Oral Tablet metroNIDAZOLE 500 MG Oral Tablet 05/24/2020 12:00:00 AM EST 1 aborted metronidazole 500 MG Oral Tablet [facility] ([facility]) Acetaminophen 325 MG Oral Tablet acetaminophen (TYLENO L) tablet 650 mg acetaminophen (TYLENOL) tablet 650 mg 05/18/2020 12:45:00 AM EST 65 0 mg Oral completed 650 mg, Oral, O nce, Thu05/18/20 at 0045, For 1 dose
Maximum daily dose of acetaminophen from all sources 75 mg/kg/day.
[facility] Medication administered onsite RID Complete Lice Elimination Combination Kit RID Comp lete Lice Elimination Combination Kit 05/18/2020 12:00:00 AM EST ab orted RID Complete Lice Elimination JOE ([facility]) Clotrimazole 20 MG/ML Vaginal Cream Clotrimazole 3 2% Vaginal Cream Clotrimazole 3 2% Vaginal Cream 05/14/2020 12:00:00 AM EST aborted clotrimazole 20 MG/ML Vaginal Cream [place] ([facility]) 1 ML Ketorolac Tromethamine 30 MG/ML Car tridge ketorolac (TORADOL) 30 MG/ML injection 30 mg ketorolac (TORADOL) 30 MG/ML injection 30 mg 0 02:00:00 PM EST 30 mg Intramuscular completed 30 mg, Intramuscular, Once, Thu05/09/20 at 1400, For 1 dose [facility] Medication administered onsite Acetaminophen 325 MG Oral Tablet acetaminophen (TYLENO L) tablet 975 mg acetaminophen (TYLENOL) tablet 975 mg 05/09/2020 01:00:00 PM EST 97 5 mg Oral completed 975 mg, Oral, O nce, Thu05/09/20 at 1300, For 1 dose
Maximum daily dose of acetaminophen is 3,000 mg from all sources in 24 hours.
[facility] Medication administered onsite Acetaminophen 325 MG Oral Tablet acetaminophen (TYLENO L) tablet 650 mg acetaminophen (TYLENOL) tablet 650 mg 05/09/2020 01:45:00 AM EST 65 0 mg Oral completed 650 mg, Oral, O nce, Thu05/09/20 at 0145, For 1 dose
Maximum daily dose of acetaminophen from all sources 75 mg/kg/day
[facility] Medication administered onsite pantoprazole 40 MG Delayed Release Oral Tablet Pantoprazole Sodium 40 MG Oral Tablet Delayed Release Pantoprazole Sodium 40 MG Oral Tablet Delayed Release 05/01/2020 12:00:00 AM EST active pantoprazole 40 MG Delayed Release Oral Tablet [facility] ([facility]) quetiapine 50 MG Oral Tablet QUEtiapine Fumarate 50 MG Oral Tablet QUEtiapine Fumarate 50 MG Oral Tablet 05/01/2020 12:00:00 AM EST 1 active quetiapine 50 MG Oral Tablet [place] ([facility]) pantoprazole 40 MG Delayed Release Oral Tablet Pantoprazole Sodium 40 MG Oral Tablet Delayed Release Pantoprazole Sodium 40 MG Oral Tablet Delayed Release 05/01/2020 12:00:00 AM EST aborted pantoprazole 40 MG Delayed Release Oral Tablet [place] ([facility]) Hydroxyzine Hydrochloride 50 MG Oral Tablet hydrOXYzin e (ATARAX) tablet 25 mg hydrOXYzine (ATARAX) tablet 25 mg 04/14/2020 09:15:00 PM EDT 25 mg Oral completed 25 mg, Oral, Once, 04/14/20 at 2115, For 1 dose [facility] Medication administered onsite 200 ACTUAT Albuterol 0.09 MG/ACTUAT Mete red Dose Inhaler [Ventolin] Ventolin HFA 108 (90 Base) MCG/ACT Inhalation Aerosol Solution Ventolin HFA 108 (90 Base) MCG/ACT Inhalation Aerosol Solution 04/10/2020 12:00:00 AM EDT active [id number] 200 ACTUAT albuter ol 0.09 MG/ACTUAT Metered Dose Inhaler [Ventolin] [place] ([facility]) AeroChamber Plus Miscellaneous AeroChamber Plus Miscellaneou s 04/10/2020 12:00:00 AM EDT active AeroCham zacarias Plus [place] ([facility]) Aluminum Hydroxide 40 MG/ML / Magnesium Hydroxide 40 MG/ML / Simethicone 4 MG/ML Oral Suspension Iwleeoic-Hwqqoqzdk-Isjsmtxaypu 200-200-20 MG/5ML Oral Suspension Odiytujy-Xgxdlareq-Dqtfekilkhx 200-200-20 MG/5ML Oral Suspension 04/04/2020 12:00:00 AM EDT active aluminum hydroxide 40 MG/ML / magnesium hydroxide 40 MG/ML / simethicone 4 MG/ML Oral Suspension [place] ([facility]) Cyclobenzaprine hydrochloride 10 MG Oral Tablet Cyclobenzaprine HCl 10 MG Oral Tablet Cyclobenzaprine HCl 10 MG Oral Tablet 04/04/2020 12:00:00 AM EDT active cyclobenzaprine hydrochlorid e 10 MG Oral Tablet [place] ([facility]) Senna 8.6 MG Oral Tablet Senna 8.6 MG Oral Tablet 04/04/2020 12:00: 00 AM EDT active Senna [facility] ([facility]) Hydroxyzine Hydrochloride 50 MG Oral Tablet hydrOXYzin e HCl 50 MG Oral Tablet hydrOXYzine HCl 50 MG Oral Tablet 04/04/2020 12:00:00 AM EDT 1 aborted hydroxyzine hydrochloride 50 MG Oral Tab let [place] ([facility]) Acetaminophen 325 MG Oral Tablet Acetaminophen 325 MG Oral T ablet 04/04/2020 12:00:00 AM EDT active acetamin ophen 325 MG Oral Tablet [place] ([facility]) Hydroxyzine Hydrochloride 50 MG Oral Tab let hydrOXYzine HCl 50 MG Oral Tablet (ATARAX) hydrOXYzine HCl 50 MG Oral Tablet (ATARAX) 04/04/2020 12:00: 00 AM EDT 50 mg Oral active Take 1 tablet by mouth every 6 (six) hours as needed for Anxiety (Sleep) [facility] Escitalopram 10 MG Oral Tablet Escitalopram Oxalate 10 MG Oral Tablet (LEXAPRO) Escitalopram Oxalate 10 MG Oral Tablet (LEXAPRO) 04/04/2020 12:00:00 AM EDT 10 mg Oral active Take 1 tablet by mouth d [facility] Escitalopram 10 MG Oral Tablet escitalopram (LEXAPRO) tablet 10 mg escitalopram (LEXAPRO) tablet 10 mg 04/03/2020 09:00:00 AM EDT 10 mg Oral active 10 mg, Oral, Daily Standard, First dose (after last modification) on Thu04/03/20 at 0900, For 30 days [facility] Medication administered onsite sennosides, ASSISTED 8.6 MG Oral Tablet senna tablet 2 [...] Starting Thu04/02/20 at 1628, For 30 days [facility] Medication administered onsite Acetaminophen 325 MG [...] mg from all sources in 24 hours.
[facility] Medication administered onsite pantoprazole 40 MG Delayed Release Oral Tablet pantoprazole (PROTONIX) EC tablet 40 mg pantoprazole (PROTONIX) EC tablet 40 mg 04/02/2020 07:30:00 AM E DT 40 mg Oral active 40 mg, Ora l, Before Breakfast, First dose on Thu04/02/20 at 0730, For 30 days
Do not crush or chew
[facility] Medication administered onsite Acetaminophen 325 MG Oral Tablet acetaminophen (TYLENO L) tablet 650 mg acetaminophen (TYLENOL) tablet 650 mg 04/02/2020 01:15:00 AM EDT 65 0 mg Oral completed 650 mg, Oral, O nce, Thu04/02/20 at 0115, For 1 dose
Maximum daily dose of acetaminophen from all sources 75 mg/kg/day.
[facility] Medication administered onsite Escitalopram 10 MG Oral Tablet escitalopram (LEXAPRO) tablet 10 mg escitalopram (LEXAPRO) tablet 10 mg 04/01/2020 09:00:00 AM EDT 10 mg Oral aborted 10 mg, Oral, Daily Standard, First dose on 04/01/20 at 0900, For 3 days [facility] Medication administered onsite pantoprazole 40 MG [...] 2330, For 1 dose
Dissolve on tongue.
[facility] Medication administered onsite Aluminum Hydroxide 40 MG/ML / Magnesium Hydroxide 40 MG/ML / Simethicone 4 MG/ML Oral Suspension Alum & Mag Hydroxide-Simeth (MAALOX PLUS) 200-200-20 MG/5ML suspension 30 mL Alum & Mag Hydroxide-Simeth (MAALOX PLUS ) 200-200-20 MG/5ML suspension 30 mL 03/21/2020 11:30:00 PM EDT 30 mL Oral c ompleted 30 mL, Oral, Once, Thu03/21/20 at 2330, For 1 dose [facility] Medication administered onsite Lidocaine Hydrochloride 20 MG/ML Mucous Membrane Topical Solution lidocaine (XYLOCAINE) 2 % mouth solution 10 mL lidocaine (XYLOCAINE) 2 % mouth solution 10 mL 03/21/2020 11:30:00 PM EDT 10 mL Mouth/Throat compl eted 10 mL, Mouth/Throat, Once, Thu03/21/20 at 2330, For 1 dose
swallow
[facility] Medication administered onsite Ondansetron 4 MG Oral Tablet Ondansetron HCl 4 MG Oral Tablet (ZOFRAN) Ondansetron HCl 4 MG Oral Tablet (ZOFRAN) 03/21/2020 12:00:00 AM EDT 4 mg Oral completed Take 1 tablet by mouth every 8 (eight) hours as needed for Nausea for up to 7 days [facility] Aluminum Hydroxide 40 MG/ML / Magnesium Hydroxide 40 MG/ML / Simethicone 4 MG/ML Oral Suspension Cwuioqzc-Phwxsiipw-Nxgzhulamxw 200-200-20 MG/5ML Oral Suspension (MAALOX) Varvodpk-Gvzokyqzi-Oickkezsffr 200-200-2 0 MG/5ML Oral Suspension (MAALOX) 03/21/2020 12:00:00 AM EDT 30 mL Oral active Take 30 mLs by mouth Four times daily before meals and nightly [facility] Escitalopram 10 MG Oral Tablet Escitalopram [...] mg from all sources in 24 hours.
[facility] Medication administered onsite quetiapine 50 MG Oral Tablet QUEtiapine Fumarate 50 MG Oral Tablet (SEROquel) QUEtiapine Fumarate 50 MG Oral Tablet (SEROquel) 02/16/2020 12:00:00 AM EDT 50 mg Oral active [facility] pantoprazole 40 MG Delayed Release Oral Tablet Pantoprazole Sodium 40 MG Oral Tablet Delayed Release (PROTONIX) Pantoprazole Sodium 40 MG Oral Tablet De layed Release (PROTONIX) 02/16/2020 12:00:00 AM EDT 40 mg Oral active Take 1 tablet by mouth every morning before breakfast [facility] pantoprazole 40 MG Delayed Release Oral [...] on Thu02/14/20 at 2200, For 30 days [facility] Medication administered onsite pantoprazole 40 MG Delayed Release Oral Tablet pantoprazole (PROTONIX) EC tablet 40 mg pantoprazole (PROTONIX) EC tablet 40 mg 02/13/2020 10:15:00 AM E DT 40 mg Oral aborted 40 mg, Ora l, Before Breakfast, First dose on 02/13/20 at 1015, For 30 days
Do not crush or chew
[facility] Medication administered onsite Escitalopram 10 MG Oral Tablet escitalopram (LEXAPRO) tablet 10 mg escitalopram (LEXAPRO) tablet 10 mg 02/11/2020 09:00:00 AM EDT 10 mg Oral aborted 10 mg, Oral, Daily Standard, First dose on 02/11/20 at 0900, For 30 days [facility] Medication administered onsite Cyclobenzaprine hydrochloride 10 MG Oral Tablet cyclobenzaprine (FLEXERIL) tablet 10 mg cyclobenzaprine (FLEXERIL) tablet 10 mg 02/11/2020 04:45:36 AM EDT 10 mg Oral aborted 10 mg, Oral, Thr ee Times Daily-PRN, Muscle spasms, Starting 02/11/20 at 0445, For 30 days [facility] Medication administered onsite sennosides, ASSISTED 8.6 MG Oral Tablet senna tablet 2 tablet sen na tablet 2 tablet 02/11/2020 04:45:27 AM EDT 2 {tbl} Oral aborted 2 tablet, Oral, Nightly PRN, Constipation, Starting 02/11/20 at 0445, For 30 days [facility] Medication administered onsite Acetaminophen 325 MG [...] mg from all sources in 24 hours.
[facility] Medication administered onsite Escitalopram 10 MG Oral Tablet escitalopram (LEXAPRO) tablet 10 mg escitalopram (LEXAPRO) tablet 10 mg 02/02/2020 09:00:00 AM EDT 10 mg Oral active 10 mg, Oral, Daily Standard, First dose on Janna 02/02/20 at 0900, For 30 days [facility] Medication administered onsite Acetaminophen 325 MG [...] mg from all sources in 24 hours.
[facility] Medication administered onsite sennosides, ASSISTED 8.6 MG Oral Tablet senna tablet 2 tablet sen na tablet 2 tablet 02/01/2020 11:27:43 PM EDT 2 {tbl} Oral active 2 tablet, Oral, Nightly PRN, Constipation, Starting Thu02/01/20 at 2327, For 30 days [facility] Medication administered onsite Ibuprofen 400 MG Oral Tablet ibuprofen (MOTRIN) tablet 800 mg ibuprofen (MOTRIN) tablet 800 mg 02/01/2020 11:27:43 PM EDT 800 mg Oral act [place] 800 mg, Oral, Every 8 hours PRN, Mild Pain (Pain Scale Score 1-3), Starting Thu02/01/20 at 2327, For 30 days [facility] Medication administered onsite Cyclobenzaprine hydrochloride 10 MG Oral Tablet cyclobenzaprine (FLEXERIL) tablet 10 mg cyclobenzaprine (FLEXERIL) tablet 10 mg 02/01/2020 11:27:43 PM EDT 10 mg Oral active 10 mg, Oral, Thr ee Times Daily-PRN, Muscle spasms, Starting Thu02/01/20 at 2327, For 30 days [facility] Medication administered onsite Bisacodyl 10 MG Rectal Suppository bisacodyl (DULCOLAX ) suppository 10 mg bisacodyl (DULCOLAX) suppository 10 mg 02/01/2020 11:27:43 PM EDT 10 mg Rectal active 10 mg, Rectal, Daily PRN, Constipation, Constipation, Starting Thu02/01/20 at 2327, For 667 hours [facility] Medication administered onsite Acetaminophen 325 MG Oral Tablet acetaminophen (TYLENO L) tablet 650 mg acetaminophen (TYLENOL) tablet 650 mg 02/01/2020 09:30:00 PM EDT 65 0 mg Oral completed 650 mg, Oral, O nce, Thu02/01/20 at 2130, For 1 dose
Maximum daily dose of acetaminophen is 3,000 mg from all sources in 24 hours.
[facility] Medication administered onsite Promethazine Hydrochloride 25 MG Oral Ta blet promethazine (PHENERGAN) tablet 25 mg promethazine (PHENERGAN) tablet 25 mg 01/31/2020 08:55:00 PM EDT 25 mg Oral aborted 25 mg, Oral, E very 6 hours PRN, Nausea, Vomiting, Starting Thu01/31/20 at 2055, For 30 days [facility] Medication administered onsite Escitalopram 10 MG Oral Tablet escitalopram (LEXAPRO) tablet 10 mg escitalopram (LEXAPRO) tablet 10 mg 01/31/2020 09:00:00 AM EDT 10 mg Oral aborted 10 mg, Oral, Daily Standard, First dose on Thu01/31/20 at 0900, For 30 days [facility] Medication administered onsite heparin (porcine) 5000 UNIT/ML injection 5,000 Units 97365-1 47-10 01/30/2020 05:00:00 PM EDT 5000 U Subcutaneous aborted 5,000 Units, Subcutaneous, Three Times Daily Standard, First dose on Thu01/30/20 at 1700, For 30 days [facility] Medication administered onsite Docusate Sodium 100 MG Oral Capsule docusate sodium (C OLACE) capsule 100 mg docusate sodium (COLACE) capsule 100 mg 01/30/2020 11:12:01 AM EDT 100 mg Oral aborted 100 mg, Oral, 2 Times Daily PRN, Constipation, Starting Thu01/30/20 at 1112, For 30 days [facility] Medication administered onsite sennosides, ASSISTED 8.6 MG Oral Tablet senna tablet 2 tablet sen na tablet 2 tablet 01/30/2020 11:12:01 AM EDT 2 {tbl} Oral aborted 2 tablet, Oral, Nightly PRN, Constipation, Starting Thu01/30/20 at 1112, For 30 days [facility] Medication administered onsite Bisacodyl 10 MG Rectal Suppository bisacodyl (DULCOLAX ) suppository 10 mg bisacodyl (DULCOLAX) suppository 10 mg 01/30/2020 11:12:01 AM EDT 10 mg Rectal aborted 10 mg, Rectal, Daily PRN, Constipation, Constipation, Starting Thu01/30/20 at 1112, For 30 days [facility] Medication administered onsite Acetaminophen 325 MG [...] mg from all sources in 24 hours.
[facility] Medication administered onsite Acetaminophen 325 MG Oral Tablet acetaminophen (TYLENO L) tablet 325 mg acetaminophen (TYLENOL) tablet 325 mg 01/29/2020 06:45:00 PM EDT 32 5 mg Oral completed 325 mg, Oral, O nce, 01/29/20 at 1845, For 1 dose
Maximum daily dose of acetaminophen is 3,000 mg from all sources in 24 hours.
[facility] Medication administered onsite Ondansetron 4 MG Disintegrating Oral Tab let ondansetron (ZOFRAN-ODT) disintegrating tablet 4 mg ondansetron (ZOFRAN-ODT) disintegrating tablet 4 mg 01/28/2020 06:15:00 PM EDT 4 mg Oral completed 4 mg, Oral, Once, 01/28/20 at 1815, For 1 dose
Dissolve on tongue.
[facility] Medication administered onsite Acetaminophen 325 MG Oral Tablet acetaminophen (TYLENO L) tablet 325 mg acetaminophen (TYLENOL) tablet 325 mg 01/28/2020 06:15:00 PM EDT 32 5 mg Oral completed 325 mg, Oral, O nce, 01/28/20 at 1815, For 1 dose
Maximum daily dose of acetaminophen is 3,000 mg from all sources in 24 hours.
[facility] Medication administered onsite Acetaminophen 325 MG Oral Tablet acetaminophen (TYLENO L) tablet 650 mg acetaminophen (TYLENOL) tablet 650 mg 12/18/2019 04:45:00 PM EDT 65 0 mg Oral completed 650 mg, Oral, O nce, 12/18/19 at 1645, For 1 dose
Maximum daily dose of acetaminophen is 3,000 mg from all sources in 24 hours.
[facility] Medication administered onsite Escitalopram 10 MG [...] due to potential increased risk for aspiration.
[facility] Medication administered onsite Levofloxacin 750 MG Oral Tablet levoFLOXacin 750 MG Or al Tablet (LEVAQUIN) levoFLOXacin 750 MG Oral Tablet (LEVAQUIN) 11/15/2019 12:00:00 AM EDT 750 mg Oral active Take 1 tablet by rena th every evening for 10 days [facility] sennosides, ASSISTED 8.6 MG Oral Tablet Senna 8.6 MG Oral T ablet Senna 8.6 MG Oral Tablet 11/15/2019 12:00:00 AM EDT 2 {tbl} Oral active Take 2 tablets by mouth nightly as needed [facility] Levofloxacin 750 MG Oral Tablet levoFLOXacin 750 MG Or al Tablet (LEVAQUIN) levoFLOXacin 750 MG Oral Tablet (LEVAQUIN) 11/15/2019 12:00:00 AM EDT 750 mg Oral aborted Take 1 tablet by rena th every evening for 10 days [facility] Ibuprofen 400 MG Oral Tablet Ibuprofen 400 MG Oral Tab let (MOTRIN) Ibuprofen 400 MG Oral Tablet (MOTRIN) 11/15/2019 12:00:00 AM EDT 400 mg Oral active Take 1 tablet by mouth every 6 (six) hours as needed for up to 10 days [facility] levoFLOXacin (LEVAQUIN) tablet 750 mg 11/15/2019 12:00:00 AM EDT 750 mg Oral active 750 mg, Oral, Every evening, First dose (after last reorder) on Thu11/15/19 at 0000, For 5 days
Administer 2 hours before or 4 hours after oral magnesium, calcium, iron, and sucralfate.
Discouraged Uses: Treatment of UTI
[facility] Medication administered onsite NaCl infusion 0.9 % [id number] 11/14/2019 11:45:00 PM EDT Intravenous active at 100 mL/hr, Intrav enous, Continuous, Starting Thu11/14/19 at 2345, For 2 days [facility] Medication administered onsite sennosides, ASSISTED 8.6 MG Oral Tablet senna 8.6 MG 2 tablet sen na 8.6 MG 2 tablet 11/14/2019 11:33:20 PM EDT 2 {tbl} Oral active 2 tablet, Oral, Nightly PRN, Constipation, Starting Thu11/14/19 at 2333, For 30 days [facility] Medication administered onsite Ibuprofen 400 MG Oral Tablet ibuprofen (MOTRIN) tablet 400 mg ibuprofen (MOTRIN) tablet 400 mg 11/14/2019 11:33:06 PM EDT 400 mg Oral act [place] 400 mg, Oral, Every 6 hours PRN, Mild Pain (Pain Scale Score 1-3), Starting Thu11/14/19 at 2333, For 30 days
Take with food.
[facility] Medication administered onsite Acetaminophen 325 MG [...] mg from all sources in 24 hours.
[facility] Medication administered onsite Ondansetron 4 MG Disintegrating Oral Tab let ondansetron (ZOFRAN-ODT) disintegrating tablet 4 mg ondansetron (ZOFRAN-ODT) disintegrating tablet 4 mg 11/14/2019 11:28:34 PM EDT 4 mg Oral active 4 mg, Oral, Every 8 hours PRN, Nausea, Vomiting, Starting Thu11/14/19 at 2328, For 3 days
Dissolve on tongue.
[facility] Medication administered onsite Ibuprofen 400 MG Oral Tablet ibuprofen (MOTRIN) tablet 400 mg ibuprofen (MOTRIN) tablet 400 mg 11/14/2019 07:30:00 PM EDT 400 mg Oral com pleted 400 mg, Oral, Once, Thu11/14/19 at 1930, For 1 dose
Take with food.
[facility] Medication administered onsite sodium chloride 0.9 % bolus 1,000 mL 11/14/2019 07:30: 00 PM EDT 1000 mL Intravenous completed 1,000 mL , Intravenous, Once, Thu11/14/19 at 1930, For 1 dose [facility] Medication administered onsite iohexol (OMNIPAQUE) 350 MG/ML contrast injection 100 mL 2805 8 11/14/2019 05:15:00 PM EDT 100 mL Given by IV completed 100 mL, Given by IV, 1 TIME IMAGING, Thu11/14/19 at 1715, For 1 dose [facility] Medication administered onsite sodium chloride 0.9 % bolus 1,000 mL 11/14/2019 03:15: 00 PM EDT 1000 mL Intravenous completed 1,000 mL , Intravenous, Once, Thu11/14/19 at 1515, For 1 dose [facility] Medication administered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 detected) result in this assay. Performed at: [facility], [place], [place] [id number] Lead Applications Developer: Erin Cabello PhD, Phone: [phone] ID Date Data Source [id number] 07/18/2020 02:07:00 PM EST [facility] Name Value Range Interpretation Code Description Data Sudha rce(s) Supporting Document(s) SARS coronavirus 2 RNA Not Detected [facility] This lab was ordered by [facility] and reported by [facility]. ID Date Data Source [id number] 07/09/2020 12:00:00 AM EST [facility] Name Value Range Interpretation Code Description Data Sudha rce(s) Supporting Document(s) 2019 Novel Coronavirus RNA Negative [facility] This lab was ordered by [facility] and reported by [facility]. ID Date Data Source [id number] 07/04/2020 08:04:28 PM EST [facility] Name Value Range Interpretation Code Description Data Sudha rce(s) Supporting Document(s) EKG/ECG IN ED [facility] [file] jJkjzJ1I3/Jose Alberto/Wvvpl33bKOzi9mT6Zl3xw+ilFn1wPrAwaIOOZhkg+D/TV4pLr5Q8l4RaK7KjUrzfJ+ [file] MWHEn6mAYjKPOLcYJ2sMTMKZpmy4Emq3X/8vbimjqKtt64//XR0PH9cWDMojkrinY3vm335X2agT/[facility] [file] ydK3/wBq/dAAWdzq7T/muyqvvn60niBkrDr5nSd9/H60eC/+E9/t4/team leader/4RPyovI/tzy/7Q2+Uf+eP8 [file] +hS3LrLcBluLgjX8O9vjxXERLWsVPSRIFAYVLVYKKPVRGWTMMBKZYUDYTWQSMDIJVJYNKCZZQXKDCVQM NDTUMLALPASIYCQARRXNRTXQKGWSCWZKXGAKRs15x+/bf8C/tIIIPDt1PKu47APFTRLU1O3I1m/wDU6L 9Zv/ZKKKmWxjX/YMuGNtHKAsGFOslvcA3X8Mp4u2Zi +vYf+lZmb2GG8cxomn/gQUUUVRuFeTfG/wD1Oi/Wb/3GjgznqG2/1gTTiOTXdKKLzqmnL4N7Xd8KFy3Y /r2H/qAb0eromK1Uj0u3LFMYKXfwYd8bg/1Oi/Wb/wBkooqZbGNf+Eht5owceP8gPZnuxY4f1NW+Q7qP /XsP/BeTyvZHDRA7DF/JfqnftfsB8z+N/wDqdF+s3/ slFFTLYxr/EYXbtyPBNQvxeLOLPX9q0CR+Q7qP/XsP/EuNlpAOrK7MSc/cHOWCUp0TkMozn/qdF+s3/s lFFTLYxr/e4fW1XDDulPLKLDBVsDlI/wCQ7qP/AF7D/cNVGj40ZXhAV2BO/SkydutatY7a+N/+p0X6zf 8AslFFTLYxr/g4zF0BJDkaUXELBJZxQjW/5Duo/wDX zA8O6AP2YNSKwkp76Z9BRpzggdtkS3/Df/ISf/anh0udmewziE/igTgodstM9pSPOLQOrvlbImjloMKW KKACiiigAooooAKKKKACiiigAooooAKKKKACiiigAooooAKKKKACiiigAooooAKKKKAP/2pRKnJlEYD0 jwZaiZ6CZH9fs3PwNRfoXqNlBX1xba8EZExuULmjMX 3VJibNoS7eWoA2E1TwseH9ANR2A8LjsBQmip9CzTN6LLEgU17zTW1NPW8saXcoGQrvQa5MPrT8ohEgpC 0KeJxtkDELgzAQhXfB/2VnS7BXNcsI8THPXwpspPNZjrXNfMFwn6+BUfN7U2E02201YnbwMFdeViEIMi yQmksIaLosAUSgkalioIxBmhJusQBKIshJdTclxbUZ RAd5nnbjrI3OERn/gGOyzPe+T0QRaSWCyoLCnYlQcOerGKLAYX2/caUCZzeswMKwuYAd8GSTduimXV5U vn5cRA8HfNfmy+SQ4JqnjJkgdNgqQO8vdCF8S7r6R/Yl2PLJ383RNR5AGNfpojKftQDmVL8MPsGgKY6o mp7VWXgtQVNtAiiKBym0V4Zou2C0F2ZvNK6/AE0AaQ PgSOBDnkYuEF3NDyD1FG9OJTMFUQKCYdCeWDAZONOqDQxMibOsJGXXDLUiDHQCKWU3IL0XcgQnuY1qEO 7/TC0ZsFEqUYPUwoQmWK1TFpT4SQ5TXBGQPGLIHqHfWJKWUEFbZDyMlzUeJSRYTEQkGMTORHJ0JF0Vln LghJvjrsZhvWJqZNrmSCZfFWXaRZApQUIgEycnH85m MMKdaPDaXIahDZZeHSWxKACxQSYeUnohGo9TJaZcKX9kut8PLAlmHPMfSlyFYybaJnDdXNPSKhOsRF1p cl6AWnIkMSHeZjlAIoccLeDjURKXVkVoQZ9afm9IVxXuCVMmMzxFPbo6E7A0gECmOJItPl2IhAsaETGp P7wjHCXmPHCvOSMfAt3cqMGhFUJdPn3VmgOeMSO9NU McFd2NQDd9DLNMR1C6KGZGRQxpRJc6IFP2S7HJHIGJWdDNFKT3Cvt+WGO4FBUNR6TrAWF5VdX5MHsRCl FDIuUvOdJtYLrWAUE8Sb8kE4TckAPuyl9OlUR2MDRtO01vSN5DAS4jfHzrCFq+Qt6Fr1AwTGWqUQb7lR NgAIL//hgDsVGYI7eamECaqOOvIZFIgG1EBS7WGaaA TCyFQ1gxaOHqcApIJYqwCFtQHzKKJCSXocYFcTW5Es/ESaHe3qUAqyCyjGGnQuTSBETzVXKYMaYoNYG7 sjRsgJ9MYX3kl3WhNEn7owQxKEflQDImVPrqTAYwGPBtJBTvVAK1AUZ2BCUFEaOiTEQtUXJoQQuiTNGe NLIini7VUPSlIDWcAXAeRGLrTCKpSABmFVcjDGSxRD LxWKhqWIVzUHUkOH5PSqJdRMZoBUD8OIDqZQQzLLGcsa3FJOOsVZCuAEijRCSsHPVnEVOwTWfrGMGgDR JmRFXvCZTbMEVlSJ7RMtXlXOOfVBMzVKHiZGUqHISpeh7QKMJxZZNgYGYsZqWjWWSmAYHkMQpeESYcGS DdUBN3IIXaKTGeEY3WLoIjFMFhUXGjPNHnRxA3DaUf Zm5SRQDjDVMcXKZlVqA1ZAQyBCZoOQyjMSXzFQIhLIItBTY2WYG1URPCLtAoGFZsNSRjHJUtIzS8FyPo Av4KESRgENHjMYIfSJU1TDDcSTPkOGfdYEKgIIAaLHV1JUV1CYG3XYKBZyGrNWOrKEFvBEpeDyL8AoVz Mk9VEIPnJXSzAJNcIUA0TPDqZPJqDRmhEICvHgMcKU PfRNQlXRBoVG0EXtXjTAEuNcMeHzFzPLVkFBCtdl4DOSAfPWThXDP5IaEyEWMgAAHvJUypNEOtAqLiUm pcAJRiFVXbOG0ICoXpOBfbEMKWHrk1K2DusmEoKjLrUd8fvDRxGEDlMe7MyiWjLZL2XORbXv5EREo6VV NFH2G9VYJXCWnyCDz4JMP1W6CQRIGRFkQTXSY1Sph+ NFE0EJEUO1XcUZR7SsE5ZAcGYsZVMrPxWbTuDLpQONZ2Ut0nPh2TOoL5MLG3kGXoRf7WLaTtNTL7YZan SDRUMu9HaQVlZl2PHPSsFLi5syGiqCHaWYj1WA3QrOlzZTAoE4Scp9BzMWEtSMLrEK1hbmVgVNAfMHZk QKOdDHB7IFOQZ5MxWEW9XqP8RQoAVbWMGfWpNzYrAV tSCVW9JskaQBFrAIfZO2Q9QAPuZgY4AVBTLKBsFJW9AxU7ZvFxCB8cYA7XkqE8ERYcAKB0Fy3NAhLaA4 NgNGDeUZO2UE1+WBrlaXMtqWxqFZVGDuJiZlS1FY4ZANMDE8P= ID Date Data Source "" 07/04/2020 08:04:00 [place] [address] Patient Name: Amy Carranza Exam Date: 07/04/20 : 1995 CC: EKG/ECG in ED Ordering Doctor: Janett Kim MD Attending Doctor: Janett Kim MD CC: EKG/ECG in ED APPROVED REPORT ECG MEASUREMENT Heart Rate 101 AXES [address] 149 P 52 QRSd 97 QRS 67 [...] ECG End of diagnostic report for accession: [id number] Interpreted: Janett Kim MD 07/04/202003 Transcribed: Signed: Janett Kim MD 07/04/202003 Interpreted by: Janett KimTranscribed by: [place] [address] Patient Name: Amy Carranza Exam Date: 05/26/20 [...] acute fracture. K8 End of diagnostic report: [id number] Signed: Wisam Wilkerson MD 05/26/20 1704 Interpreted by: Wisam WilkersonTranscribed by: Wisam Wilkerson Name Value Range Interpretation Code Description Data Sudha rce(s) Supporting Document(s) ID Date Data Source "" 05/26/2020 04:48:00 [place] [address] Patient Name: Amy Carranza Exam Date: 07/04/20 : 1995 CC: EKG/ECG in ED Ordering Doctor: Janett Kim MD Attending Doctor: Janett Kim MD CC: EKG/ECG in ED APPROVED REPORT ECG MEASUREMENT Heart Rate 101 [address] 149 P 52 QRSd 97 QRS 67 [...] ECG End of diagnostic report for accession: [id number] Interpreted: Janett Kim MD 07/04/202003 Transcribed: Signed: Janett Kim MD 07/04/202003 Interpreted by: Janett KimTranscribed by: Janett Kim [place] [id number] Patient Name: Amy Carranza Exam Date: 05/26/20 [...] acute fracture. K8 End of diagnostic report: [id number] Signed: Wisam Wilkerson MD 05/26/20 1704 Interpreted by: Wisam WilkersonTranscribed by: Wisam Wilkerson Name Value Range Interpretation Code Description Data Sudha e(s) Supporting Document(s) ID Date Data Source [id number] 07/04/2020 08:24:00 PM EST [facility] Run: 07/06/20 0804 INTERFACED REPORT Name: SanbornAmy M Age/Sex: 25/F Location: ED Acct: [id number] Unit: [id number] Status: [facility] Room/Bed: Re07/04/20 Disch: Att Dr: Janett Kim MD Specimen #: [id number] Ordered : 07/04/20 Collected : 07/04/20 By: [...] Sudha rce(s) Supporting Document(s) COLOR,UR YELLOW YELLOW [facility] APPEARANCE,UR SL CLOUDY CLEAR [facility] PH,UR 5.0 5.0-8.0 [facility] SPECIFIC GRAVITY,UR 1.026 1.002-1.035 N [facility] PROTEIN,UR NEGATIVE MG/DL NEGATIVE [facility] GLUCOSE, UR NEGATIVE MG/DL NEGATIVE [facility] KETONES,UR NEGATIVE MG/DL NEGATIVE [facility] OCCULT BLOOD,UR MODERATE NEGATIVE A [facility] NITRATE,UR NEGATIVE NEGATIVE [facility] LEUKOCYTE ESTERASE ,UR TRACE NEGATIVE A [facility] BILIRUBIN,UR NEGATIVE NEGATIVE [facility] UROBILINOGEN,UR 0.2-1.0 EU MG/DL NEG-0-1.0 [facility] RBC,UR 3-9 PER HPF 0-2 A [facility] WBC,UR 10-24 PER HPF <5 A [facility] BACTERIA,UR RARE PER HPF NONE [facility] MUCUS,UR FEW PER HPF NONE SEEN [facility] ID Date Data Source [id number] 07/06/2020 08:03:00 AM EST [facility] Run: 07/06/20 0804 INTERFACED REPORT Name: GangaAmy M Age/Sex: 25/F Location: ED Acct: [id number] Unit: [id number] Status: DEP ER Room/Bed: Re07/04/20 Disch: Att Dr: Janett Kim MD Specimen #: [id number] Ordered : 07/04/20 Collected : 07/04/20 By: [...] rce(s) Supporting Document(s) ID Date Data Source [id number] 07/04/2020 07:50:00 [place] [address] HEALTH INFORMATION MANAGEMENT ED/ Physician Report : [id number] Signed Patient: Amy Carranza Acct:[id number] Unit : [id number] : 1995 Arrival Date: 07/04/20 Age/Sex: 25 [...] None Drug use: Reports None Occupation: On [employer] Lives with: Reports Alone PMH/PSH PMH/PSH [...] EXT: NO EDEMA OR CLUBBING OR TREMORS. 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 SKIN: DRY, NO RASH, [...] rce(s) Supporting Document(s) ID Date Data Source [id number] 07/04/2020 08:13:00 PM EST [facility] Name Value Range Interpretation Code Description Data Sudha rce(s) Supporting Document(s) HCG QUALITATIVE SPECIMEN URINE [facility] ID Date Data Source [id number] 07/04/2020 08:13:00 PM EST [facility] Name Value Range Interpretation Code Description Data Sudha rce(s) Supporting Document(s) HCG RESULT,U NEGATIVE [facility] Reference range is Negative To ensure best sensitivity, first morning void is recommended. Dilute, low specific gravity urine may give a falsely negative result. If is suspected, repeat testing with a new specimen 48-72 hours later. ID Date Data Source [id number] 06/26/2020 02:39:00 PM EST JOE ([facility]) Name Value Range Interpretation Code Description Data Sudha rce(s) Supporting Document(s) Reported Physicians See Note Reported Physicians JOE ([facility]) Note: Reported Physicians:Ordering: Aura StylesAttending: Aura Roa ID Date Data Source [id number] 06/26/2020 02:39:00 PM EST [facility]E ([facility]) [...] PROBE 500.3100 (A) ID Date Data Source [id number] 06/26/2020 10:23:00 PM EST [facility] Name Value Range Interpretation Code Description Data Sudha rce(s) Supporting Document(s) KIRIT BY DNA PROBE NEGATIVE NEGATIVE [facility] GARDNERELLA BY DNA PROBE NEGATIVE NEGATIVE [facility] TRICHOMONAS BY DNA PROBE NEGATIVE NEGATIVE [facility] TESTING PERFORMED BY NUCLEIC ACID VIVIAN ECHOLSZATION ID Date Data Source [id number] 06/20/2020 05:46:00 [place] [address] HEALTH INFORMATION MANAGEMENT ED/UC Physician Report : [id number] Signed Patient: Amy Carranza Acct:[id number] Unit : [id number] : 1995 Arrival Date: 06/20/20 Age/Sex: 25 [...] the injury. She denies use of any rifw-ajf-lutjspd medications for pain priorto coming to the [...] None Drug use: Reports None Occupation: On [employer] Lives with: Reports Alone PMH/PSH Medical [...] Normal Affect Skin Skin exam: Dry, Intact, [place] and Warm Course Course Course Narrative: Patient [...] rce(s) Supporting Document(s) ID Date Data Source [id number] 06/15/2020 09:09:00 [place] [address] HEALTH INFORMATION MANAGEMENT ED/UC Physician Report : [id number] Signed Patient: Amy Carranza Acct:[id number] Unit : [id number] : 1995 Arrival Date: 06/15/20 Age/Sex: 25 [...] and Depression Skin Skin exam: Dry, Intact, [place] and Warm Course Vital Signs Vital signs: [...] <<Signature on File>> Initializing User: Darlene Winslow [facility] 06/15/202108 Signed by: Darlene Winslow DATABASE PROGRAMMER ANALYST 06/15/20 221 Janett Kim MD 06/15/20 2251 Name Value Range Interpretation Code Description Data Sudha rce(s) Supporting Document(s) ID Date Data Source [id number] 05/26/2020 04:50:[address] [address] HEALTH INFORMATION MANAGEMENT ED/UC Physician Report : [id number] Signed Patient: Amy Carranza Acct:[id number] Unit : [id number] : 1995 Arrival Date: 05/26/20 Age/Sex: 25 [...] None Drug use: Reports None Occupation: On [employer] Lives with: Reports Alone PMH/PSH PMH/PSH [...] Affect Skin Skin exam: Dry, Intact and [place] Course Vital Signs Vital signs: Vital Signs [...] 1650 Signed by: Kate Dubon NP 05/26/20 9572 Candice Arrieta MD 05/26/20 1800 Name Value Range Interpretation Code Description Data Sudha rce(s) Supporting Document(s) ID Date Data Source [id number] 05/26/2020 04:39:00 PM EST [facility] Name Value Range Interpretation Code Description Data Sudha rce(s) Supporting Document(s) HCG QUALITATIVE SPECIMEN URINE [facility] ID Date Data Source [id number] 05/26/2020 04:39:00 PM EST [facility] Name Value Range Interpretation Code Description Data Sudha rce(s) Supporting Document(s) HCG RESULT,U NEGATIVE [facility] Reference range is Negative To ensure best sensitivity, first morning void is recommended. Dilute, low specific gravity urine may give a falsely negative result. If is suspected, repeat testing with a new specimen 48-72 hours later. ID Date Data Source [id number] 05/22/2020 01:54:00 PM EST [facility] ([facility]) Name Value Range Interpretation Code Description Data Sudha rce(s) Supporting Document(s) Reported Physicians See Note Reported Physicians [facility] ([facility]) Note: Reported Physicians:Ordering: Fariba NevarezAttending: Fariba Santana ID Date Data Source [id number] 05/22/2020 01:54:00 PM EST [facility] ([facility]) [...] PROBE NEGATIVE TRICHOMONAS BY DNA PROBE [facility] ([facility]) Note: TESTING PERFORMED BY NUCLEIC ACID HYBRIDIZATIONResponsible Observer: TRICHOMONAS TRICHOMONAS BY DNA PROBE 500.3100 (A) ID Date Data Source [id number] 05/22/2020 09:25:00 PM [facility] Name Value Range Interpretation Code Description Data Sudha rce(s) Supporting Document(s) [place] BY DNA PROBE POSITIVE NEGATIVE [facility] BY DNA PROBE POSITIVE NEGATIVE A [facility] TRICHOMONAS BY DNA PROBE NEGATIVE NEGATIVE [facility] TESTING PERFORMED BY NUCLEIC ACID HYBRI DIZATION ID Date Data Source [id number] 05/18/2020 04:10:16 AM [facility] Name Value Range Interpretation Code Description Data Sudha rce(s) Supporting Document(s) ED Provider Note [facility] [id number] lbm [file] vp respiratory+bqa2Lsgaqzov7xN9anoxA0LxeUzAxEvvhnpAixqi7yMT1WW7A7OTmm+zmX5Iiz9bj35KvIo+w98d7 [file] CMptOMYxBJ3jSIKCMg0+VIfzyFBhfGnjIIHPOoC1CVE6BQiaTJXVFf0W ID Date Data Source [id number] 05/18/2020 02:08:00 AM EST [facility] Name Value Range Interpretation Code Description Data Sudha rce(s) Supporting Document(s) SARS-CoV-2 RNA [facility] This lab was ordered by [facility] and reported by [facility]. ID Date Data Source [id number] 05/18/2020 02:45:17 PM [facility] Name Value Range Interpretation Code Description Data Sudha rce(s) Supporting Document(s) Specimen source [Identifier] of Unspecified specimen [facility] SARS-CoV-2 RNA 2018 nCoV Real-Time RT-PCR: NOT DETECTED [facility] Assay Performed [facility] Patients first test for [facility] Patient employed in healthcare setting [facility] Patient has symptoms related to [facility] When did you start to experience these symptoms [Date and time] [PhenX] [id number] [facility] Patient was hospitalized because of this condition [facility] patient was admitted to ICU for [facility] Patient resides in a congregate care setting [facility] status [facility] ID Date Data Source [id number] 05/18/2020 03:41:16 AM [facility] Service Cmnt XXX-Imp : NoneRespiratory P CR Panel : PCR ResultsMicroorganism XXX Cult : This assay does not detect novel Coronaviruses.HAdV DNA QI EDUARDO+non-probe : Not DetectedHCoV 229ERNA Nph QI EDUARDO+non-probe : Not DetectedHCoV WVU1GVH Nph QI EDUARDO+non-probe : Not GimdmqjnJMnXLV75 RNA Nph QI EDUARDO+non-probe : Not AzvtsxhlQIoGVY33 RNA Upper resp QI EDUARDO+probe : Not [...] rce(s) Supporting Document(s) ID Date Data Source [id number] 05/18/2020 01:09:03 AM [facility] XR CHEST FRONTAL ONLY [id number] RESULTI nterpreted by:LEYLA TreviñoROCEDURE INFORMATION: Exam: XR Chest, 1 View Exam date and time: 05/18/2020 1:02 AM Age: 25 years old Clinical indication: Chest pain; Additional info: SOB TECHNIQUE: Imaging protocol: XR of the chest Views: 1 view. COMPARISON: CR XR CHEST FRONTAL AND LATERAL [id number] 03/29/2020 7:34 PM FINDINGS: Lungs: Unremarkable. No [...] rce(s) Supporting Document(s) ID Date Data Source [id number] 05/12/2020 08:23:03 PM [facility] Name Value Range Interpretation Code Description Data Sudha rce(s) Supporting Document(s) ED Provider Note [facility] KWUWWd4mHyXWLkRs03/MTTcgNVPud9XsOJapOZc9LQxhSFFzX3GvLLL7rB1nAQJ2KSwMBzKgUlXmIAT7 lbm [file] HlzaS3ceDaZCm3UvfgTU5AYJBYL0DPIa== ID Date Data Source [id number] 05/11/2020 01:22:39 PM EST [facility] Name Value Range Interpretation Code Description Data Sudha rce(s) Supporting Document(s) ED Provider Note [facility] UWFHPz4vQoQTAbPa13/RUXrsUKLcr0FuEEyrVRa8SXudQQGnW9VwIZN2bA9xJXH6LZuLToAgIiCcZRC0 lbm [file] CCMoPSThRSEeEyYeMA0IFt9SJwR4NMI8qCWwHm5NPKV0MoAOTkPxZH5ZUNo= ID Date Data Source [id number] 05/09/2020 03:51:33 PM [facility] Name Value Range Interpretation Code Description Data Sudha rce(s) Supporting Document(s) Consultation [facility] RLOHDd4pFmBOCsUv31/MSNqwVOJfu6XqDMdxHMc0POxfRBMkR3VaVQT7kZ0mIIC9UUnXFiFhFsBuBKW6 lbm [file] ICAgICAgICAgICAgICAgICAgICAgICAgICAgICAgIC AgICAgICAgICAgICAgICAgICAgICAgICANCiAgICAgICAgICAgICAgICAgICAgICAgICAgICAgICAgIC AgICAgICAgICAgICAgICAgICAgICAgICAgICAgICAgICAgICAgICAgICAgICAgICAgICAgICAgICAgIC AgICAgICANCiAgICAgICAgICAgICAgICAgICAgICAg ICAgICAgICAgICAgICAgICAgICAgICAgICAgICAgICAgICAgICAgICAgICAgICAgICAgICAgICAgICAg ICAgICAgICAgICAgICAgICANCiAgICAgICAgICAgICAgICAgICAgICAgICAgICAgICAgICAgICAgICAg ICAgICAgICAgICAgICAgICAgICAgICAgICAgICAgIC AgICAgICAgICAgICAgICAgICAgICAgICAgICANCiAgICAgICAgICAgICAgICAgICAgICAgICAgICAgIC AgICAgICAgICAgICAgICAgICAgICAgICAgICAgICAgICAgICAgICAgICAgICAgICAgICAgICAgICAgIC AgICAgICAgICANCiAgICAgICAgICAgICAgICAgICAg ICAgICAgICAgICAgICAgICAgICAgICAgICAgICAgICAgICAgICAgICAgICAgICAgICAgICAgICAgICAg ICAgICAgICAgICAgICAgICAgICANCiAgICAgICAgICAgICAgICAgICAgICAgICAgICAgICAgICAgICAg ICAgICAgICAgICAgICAgICAgICAgICAgICAgICAgIC AgICAgICAgICAgICAgICAgICAgICAgICAgICAgICANCiAgICAgICAgICAgICAgICAgICAgICAgICAgIC AgICAgICAgICAgICAgICAgICAgICAgICAgICAgICAgICAgICAgICAgICAgICAgICAgICAgICAgICAgIC AgICAgICAgICAgICANCiAgICAgICAgICAgICAgICAg ICAgICAgICAgICAgICAgICAgICAgICAgICAgICAgICAgICAgICAgICAgICAgICAgICAgICAgICAgICAg ICAgICAgICAgICAgICAgICAgICAgICANCiAgICAgICAgICAgICAgICAgICAgICAgICAgICAgICAgICAg ICAgICAgICAgICAgICAgICAgICAgICAgICAgICAgIC AgICAgICAgICAgICAgICAgICAgICAgICAgICAgICAgICANCjw/bGBiW7ejqDAffxK0R9ocFs6OLm4EYV 8uz8FhLZDjJYztxrTuXmtONzRcLYQaZeyAYov3NFtnVM2GhCAxB1RhA8NyBAceNU3YLEZjWJEtbIHoNA JgUSZxWrH2NNGuZTpmUI8ZnMVvAWonGJHlUMLdIrLr MXQkRG7EBHEuH603ezCoBj6OHi3ORzHwAP7cct9QAHKjBUYpJkvQGzh6FZoxKY2HjWZgwIWjJdWqQTMN AiCsL0nri9MjYTquOLUCMOazFQ4Rj3NmaCCnRRb+Xe4TWG2vl5ZcKLcoIwCeUD0izd6SHLvUWdMmU6Pj oUrhCJTsbvM0mEGeHCZ3XTPzAI0pPUPCVEvcYSj2pL vxXX3GMzOnpXDcVR8hZL8pCVDdRDWsNuEsAFCSKH7CAOIjNTHpsXPiURRbTIAMLT9ZYWgyPCD9GWItit PgyZFtFGreVK0PKYAumpGcPZHsBTGSHJi+Iz7HTA7vm8KnCDivSPBaXL9wix7TBWbMGbHeT1N9iZAnI0 I4SSwxWe7TEMAsVBJePJAeHQBMGJvjLJ3WHO3jnfF2 LV6TlGFsMQTyMABhgKRjNAp3I08jqJEvSUjdFL1AESV+Dulce+Dh6HXHAfLGQkJSYzBbYqSXLMDxSbF1Dm T7ANd0HfY2FmIO51dFllrcOjZCayVO9COR2iXEKrDCKVOB2CvARzvU7kxpCoIjFqUAQFRqDfZ33ttHEa FFFiFZT1SURnGm1SEWLpN4VevtXarAkqxyOvRRPsHW VFXZ8BVCmgzoWyzSMvyPavVA55xTtxRX2LPy3MTfKkVY7mbo0YiBOoEv8ODSMwDV8UMMUyPFQiGFQhXU G7QKRqPrJxFXviCCReMFTrEOT6VFBlAUGyEG9KDvEuYOBdGCw6MSpqFBYhLLWcgq2GUYEqBFXlKYMkCM DvWXBtOAHtOJchTZVvPIZhWMB9CGTmNIIqFM8IQbFc VSHaIEP8VyNbLVFePKDwuk7XTCKnVEHvYig8PJZsGBBbALErJOxjEKMtUZA0Vzk7GNKrXVSoMY3FYfOo DJMmXII9ZBmbIEYgSNTlzi2OPNZjYCZcMTv6GSZpRHGqLMSyVKwcTJIjBYF7PCY6DECiDGBaEP6AJtCt LMHoBMHnQaJiNGQfZCLfmb4OLYVrRQKoLsH3SUNkSM XzWQIaHIjfCHSfMLY6Kww7YAVcUSEoZS2MTwVjWJLqPGu4AzPsMZDjORVfwf4UNCWdROEaKfu5RZZiCQ ReDFOlELihWRBqKNU2UYBgDWGpDCNnLK8AJvPjYPXuAPb3QKUxKGRnVCZqbf8IRZCrHLLcOFS7CGBaQU YeGYOsGOd5nmBhxEBdOXd3JM3UX3SuouHcGXsINu3R m365FGA2PCYtNn6UQ9nnSf0fRVMgVPPXEl7OWOp2PMy1NpA9HvRnEvO2NuJ5AyubKMS5ZrHtLbOiMKZ3 ZTI+ZKabLBFrKFIvMkCzIHOiGBDnR5CoGzv4WQEzPBR1JGbnSw4lTRCKOq4+DQpzdGFydHhyZWYNCjk4 ZUUAWmQrCA0NEMg= ID Date Data Source [id number] 05/09/2020 02:00:25 PM [facility] Name Value Range Interpretation Code Description Data Sudha rce(s) Supporting Document(s) Choriogonadotropin ( test) [Presence] in Urine [facility] NEGATIVE: either no HCG or too low to de tect, <20 mU/mL Specific gravity of Urine by Refractometry 1.030 1.003-1.030 [facility] ID Date Data Source [id number] 05/09/2020 08:03:00 [place] [address] HEALTH INFORMATION MANAGEMENT ED/UC Physician Report : [id number] Signed Patient: Amy Carranza Acct:[id number] Unit : [id number] : 1995 Arrival Date: 05/09/20 Age/Sex: 25 [...] Normal Affect Skin Skin exam: Dry, Intact, Fannett and Warm Medical Decision Making/CCT EKG Interpretation [...] Name Value Range Interpretation Code Description Data [facility] rce(s) Supporting Document(s) ID Date Data Source [id number] 05/01/2020 01:33:00 PM [employer] Name Value Range Interpretation Code Description Data [facility] rce(s) Supporting Document(s) Reported Physicians See Note Reported Physicians JOE ([facility]) Note: Reported Physicians:Ordering: Devaughn Friedmanending: Trang Enamorado ID Date Data Source [id number] 05/01/2020 01:33:00 PM [employer] Name Value Range Interpretation Code Description [facility] See Note Chris See Note Aries DIAZ ([facility]) Note: Run: 05/13/20 1329 INTERFACED REPORT Name: Amy Carranza Age/Sex: 25/F Location: [facility] Acct: [id number] Unit: [id number] Status: REG REF Room/Bed: Re05/01/20 Disch: Att Dr: Trang Enamorado Spec Num: [id number] Recd: 05/02/20 Status: COBY Zamarripa Num: [id number] SpType: CYTOLOGY Sub Dr: Trang Enamorado Specimen SubmittedThin Prep Image Guided Z12.72 : Screening vaginal pap smear CERVICAL, LMP 04/10/2020, LR 05/01/2020 Specimen Adequacy Satisfactory for evaluation Endocervical/transformation zone component present. General Categorization Negative for Intraepithelial Lesion or Malignancy Descriptive Diagnosis Fungal Elements Present Consistent with Kirit SP. Predominance of Bacteria Co nsistent with a Shift in Vaginal Pallavi. Specimen Identification Verified. Reviewing [employer] Analyst PF HPV RESULTS Date Time Test Result [...] END OF REPORT ID Date Data Source [id number] 05/01/2020 01:33:00 PM EST [facility] Name Value Range Interpretation Code Description Data Sudha rce(s) Supporting Document(s) Reported Physicians See Note Reported Physicians JOE ([facility]) Note: Reported Physicians:Ordering: Trang FriedmanAttending: Trang Enamorado ID Date Data Source [id number] 05/01/2020 01:33:00 PM EST [facility] Name Value Range Interpretation Code Description Data Sudha rce(s) Supporting Document(s) KIRIT BY DNA PROBE NEGATIVE KIRIT BY DNA PROB E JOE ([facility]) Note: Responsible Observer: KIRIT BY D NA KIRIT BY DNA PROBE 500.3050 (A) GARDNERELLA BY DNA PROBE NEGATIVE GARDNERELLA BY DNA PROBE [facility] ([facility]) Note: Responsible Observer: GARDNERELLA GARDNERELLA BY DNA PROBE 500.3075 (A) TRICHOMONAS BY DNA PROBE NEGATIVE TRICHOMONAS BY DNA PROBE [facility] ([facility]) Note: TESTING PERFORMED BY NUCLEIC ACID HYBRIDIZATIONResponsible Observer: TRICHOMONAS TRICHOMONAS BY DNA PROBE 500.3100 (A) ID Date Data Source [id number] 05/13/2020 01:29:00 PM [employer] Run: 05/13/20 1329 INTERFACED REPORT Name: Amy Carranza Age/Sex: 25/F Location: [facility] Acct: [id number] Unit: [id number] Status: REG REF Room/Bed: Re05/01/20 Disch: Att Dr: Trang Enamorado Spec Num: [id number] Recd: 05/02/20 Status: COBY Guevaratricia Num: [id number] SpType: CYTOLOGY Sub Dr: Trang Enamorado Specimen SubmittedThin Prep Image Guided Z12.72 : Screening vaginal pap smear CERVICAL, LMP 04/10/2020, LR 05/01/2020 Specimen Adequacy Satisfactory for evaluation Endocervical/transformation zone component present. General Categorization Negative for Intraepithelial Lesion or Malignancy Descriptive Diagnosis Fungal Elements Present Consistent with Kirit SP. Predominance of Bacteria Consistent with a Shift in Vaginal Pallavi. Specimen Identification Verified. Reviewing [employer] Analyst PF HPV RESULTS Date Time Test Result [...] rce(s) Supporting Document(s) ID Date Data Source [id number] 05/02/2020 05:22:00 PM EST [facility] Name Value Range Interpretation Code Description Data Usdha rce(s) Supporting Document(s) KIRIT BY DNA PROBE NEGATIVE NEGATIVE [facility] GARDNERELLA BY DNA PROBE NEGATIVE NEGATIVE [facility] TRICHOMONAS BY DNA PROBE NEGATIVE NEGATIVE [facility] TESTING PERFORMED BY NUCLEIC ACID HYBRI DIZATION ID Date Data Source [id number] 04/25/2020 01:32:39 AM EST [facility] Name Value Range Interpretation Code Description Data Sudha rce(s) Supporting Document(s) ED Provider Note [facility] LLYXOv8dEwJDLtVn68/XRPtaHBHla6YtVUheNJa1SQnaSAIgS2AkYGY5fV0sPBK1KDhSMtFvDkKeGEAn lbm [file] blB9cdEdPHz1MME0Fi2CRIESB8EFXy== ID Date Data Source [id number] 04/24/2020 03:16:00 [place] [address] HEALTH INFORMATION MANAGEMENT ED/UC Physician Report : [id number] Signed Patient: Amy Carranza Acct:[id number] Unit : [id number] : 1995 Arrival Date: 04/24/20 Age/Sex: 25 [...] Normal Affect Skin Skin exam: Dry, Intact, Fannett and Warm Course Vital Signs Vital signs: [...] TOMPKINS 04/24/20 1516 Signed by: Darlene Winslow [facility] 04/24/20 1646 Fabian Bowen MD 04/24/20 1840 Name Value Range Interpretation Code Description Data Sudha rce(s) Supporting Document(s) ID Date Data Source [id number] 04/22/2020 03:50:[address] [address] HEALTH INFORMATION MANAGEMENT ED/ Physician Report : [id number] Signed Patient: Amy Carranza Acct:[id number] Unit : [id number] : 1995 Arrival Date: 04/22/20 Age/Sex: 25 [...] wanted Medicaid cab to go to the [employer] shop. Patient does not have any other [...] None Drug use: Reports None Occupation: On [employer] Lives with: Reports Alone PMH/PSH Medical [...] File>> Initializing User: Candice Arrieta MD 04/22/20 8944 Signed by: Candice Arrieta MD 04/23/20 0752 Name Value Range Interpretation Code Description Data Sudha rce(s) Supporting Document(s) ID Date Data Source [id number] 04/22/2020 02:51:[address] [address] HEALTH INFORMATION MANAGEMENT ED/UC Physician Report : [id number] Signed Patient: Amy Carranza Acct:[id number] Unit : [id number] : 1995 Arrival Date: 04/22/20 Age/Sex: 25 [...] None Drug use: Reports None Occupation: On [employer] Lives with: Reports Alone PMH/PSH Medical [...] File>> Initializing User: Candice Arrieta MD 04/22/20 145 Signed by: Candice Arrieta MD 04/23/20 6392 Name Value Range Interpretation Code Description Data Sudha rce(s) Supporting Document(s) ID Date Data Source [id number] 04/17/2020 04:07:32 PM EST [facility] Name Value Range Interpretation Code Description Data Sudha rce(s) Supporting Document(s) ED Provider Note [facility] ZAFGTa9zEaMUGtNz96/EMAxoGFVuy8EgHQjpKZr6GFskQXAsP9DmZCA6pU0eHSU0YBlYGiUeVaFcKYMx lbm [file] R6ECOsJZJeJG4qQQPXOt5+KPhxxMCmjSeyUNXMLmS7OdG7KRvwRBRHKi7I ID Date Data Source [id number] 04/17/2020 03:03:[address] [address] HEALTH INFORMATION MANAGEMENT ED/UC Physician Report : [id number] Signed Patient: Amy Carranza Acct:[id number] Unit : [id number] : 1995 Arrival Date: 04/17/20 Age/Sex: 25 [...] Normal Affect Skin Skin exam: Dry, Intact, Fannett and Warm Course Vital Signs Vital signs: [...] 30 RF: 0 Referrals: Harriet Marie DO [[facility] Provider] - Stand Alone Forms: Portal Instructions [...] rce(s) Supporting Document(s) ID Date Data Source [id number] 04/14/2020 09:47:33 PM [facility] Name Value Range Interpretation Code Description Data Sudha rce(s) Supporting Document(s) [facility] OYGZQv2pEoWUZxFv30/CKFmeEEOzp0PyAGieNMo1GWrdTFVyW0IbYZE2aM1qLBV1PJtOKvYnKaKzVAUy lbm CnNefYGzYkPKMtBaySElLeSGfiRslfeQNsGO0KkEN8BJCjU30xVWIqUDNpQ8UfRHE2EsC+Fp2QGXExjJ KqNV7BPivP0Ymqjpi86l3t/NvOA1NubFHKA51Bjxqgqxw613tyL289BVGPVqbBXMuIpislSo+dpX2GI9 VL3VVz7ICaNQF3dItqlnIf/iiT4WIfe51G/6ufYSTZ ad taker+/Tgqoya8sgc+xNiDHuNbQlOlcq0V1V9xnQV0P9PBVLMYiCO5Xcef1J7MRvEMPDqg492BhzVk3e9y [file] JcGJ2DCXt= ID Date Data Source [id number] 04/07/2020 01:05:00 [place] [address] HEALTH INFORMATION MANAGEMENT ED/UC Physician Report : [id number] Signed Patient: Amy Carranza Acct:[id number] Unit : [id number] : 1995 Arrival Date: 04/07/20 Age/Sex: 25 [...] resolved as well. Patient was seen at [facility] last night. X-rays were done and that [...] File>> Initializing User: Candice Arrieta MD 04/07/20 1303 Signed by: Candice Arrieta MD 04/07/20 7671 Name Value Range Interpretation Code Description Data Sudha rce(s) Supporting Document(s) ID Date Data Source [id number] 04/05/2020 08:16:13 PM EDT [facility] Name Value Range Interpretation Code Description Data Sudha rce(s) Supporting Document(s) History and Physical [facility] RYDRPz5pCsFDWlCb89/XYIxsPQDpr1SuATybYJg0YRqoNKCpK7MdSTF2wT1oDYI6COzRIqOlFwViRPTs lbm [file] AgICAgICAgICAgICAgICAgICAgICAgICAgICAgICAgICAgICAgICAgICAgICAgICAgICAgICAgICAgIC AgICAgICAgICAgICAgICAgICAgICAgICAgICAgICAg SB5HKRRnSWSdCTUvIMAyOXGuZMAoZDDbRJXyBODrKVBuVJBvWSTaECEtEGBiAYGkJZCeAYDtMKUsRVFt TDHuMLSoTDBpNWWrBCTfKEZfXAEnPXPqTCNvVGQuFPZzFKMtXSNjOUBmCR1ONUEkTPYiIGMyNIPjELAq ICAgICAgICAgICAgICAgICAgICAgICAgICAgICAgIC ShLZSlZGXkMRXvWYDhARBnBGUbCHPnZEDkNNQzWNCcJMBdNLVhAAYtJSWnKDKdXDJaIFAwMW9SXSTlOY AgICAgICAgICAgICAgICAgICAgICAgICAgICAgICAgICAgICAgICAgICAgICAgICAgICAgICAgICAgIC AgICAgICAgICAgICAgICAgICAgICAgICAgICAgICAg SXOtVK4MDTGcXUQrHMNsYYOmLEQvLGUjTYEkOYXpBPWuONKwUTLxZGAcOEXfYUPyIXHiECAmRYNmESQr HUNfUQFgUGVqOEHqHDAqWLYnEOYrAWGvGUDhKOSgICYuSZJcEJNlXXCtKKWfEU9SUFOvEFFlZQBjLRWx ICAgICAgICAgICAgICAgICAgICAgICAgICAgICAgIC LqXXAyREZpDJOmKRXhBSEkLFEqATSuWLHbGFGmVRFoOQVbPSCiJRFcWKQqQQIxNEPsMYDzEUYaTK6ZEY AgICAgICAgICAgICAgICAgICAgICAgICAgICAgICAgICAgICAgICAgICAgICAgICAgICAgICAgICAgIC AgICAgICAgICAgICAgICAgICAgICAgICAgICAgICAg VLBtLCUgBL2VUJYpMWLiAIBoXQUsPXAqJKQlMGVuTPJuYKQtXNMlJTBuBVJcGKJzIHEgZHWcSPPvKRFe WVBgOLYbGMBrWYGpGFTdJQYuKLTvPGAoTGNaCVFjATBqGLCjZMVeHJHpVQZkUADpJO3CHXPjDPKjHWHw ICAgICAgICAgICAgICAgICAgICAgICAgICAgICAgIC AgICAgICAgICAgICAgICAgICAgICAgICAgICAgICAgICAgICAgICAgICAgICAgICAgICAgICAgICAgIA 0KICAgICAgICAgICAgICAgICAgICAgICAgICAgICAgICAgICAgICAgICAgICAgICAgICAgICAgICAgIC AgICAgICAgICAgICAgICAgICAgICAgICAgICAgICAg ZKRjJLJbJUVeJF0SRH52aTIhd3G3DHOuPP7mtwl/Af9OOJwuuxSzlRBeZM4OPnKrRK4fxa0SHzDuFX0k au8PSXtPGvPwE7H9pXAjVRQpEJTVEeEyE68vGFeeZo51GKiqUDQcDuXwDIy0Jp3HRsFaQ2muEPRpAkE0 ZLWxTpT9KOEyQjE6FAAaNgQwRDBsHOSuAJNdLZTEWF X2WKOaYoAvVlBwBXJjTFpySQUJMJIoGJUvDvUkAuMlWLJkPsKlTHAEHH8BMgOiS2XtlJ35PUMfFAu+Pg 0PIL5yu7HsVJo2JBFpMS9tyc2DDJsZBaWyC1PpcfN8WPV9VNUkBm4VLZLnRBDtlYD7HGSrLRFLJjInM3 MzvU65NGGAUv6+CCcsbrFxYlyRZjM0ETYzq4SzXDx1 SG3XMMPmDQm2tWOlDWTICVS2JYIkiSXnTJItP63cqN7mncS6yyleRY2aMRSvKTLtUBwwQnZtJLEoMEg3 MdTVUYzZHfZgN0Dwm6LiIeR6DPCgFsEkAPbzFCKiFbJ6MD84jRuwLN5SNIFdQVNnTB37YEY1XATaAq5O Kk1LPpMlNQ9iwe5HHQWwNQFcRnqEGwy4JGsvWQ0JrE BqU3NmrZLwo9nTRaMuK6SRAST3JYXrHo7DNPGoGlErMUWbMVbbOR9lKFQvLDDXfOytjyE4RS3JNT2xzk JiGH4CJiMmUn9iVh1HAaOsE9QlP3LvQRGbOQHAHFluRA6AICqeSJ5wPM3Cv4PUbZSjlX9zrt7DWLRiQU WhUrocdf7HOlimO6J9rVeyWZSjWZeoVWYIFCevKR8M CMAbVHI7UMI7PyKyGFULNiVxR21bED0HI8Wax61bEeW1HWYqTlSpFGdiSA95fGlihgDjuTMlkZfzLW1O Cj4+QVqxpdUnVojNVcadDEZSEgAhZAZNTwXpTLWtBZEvDJZbReN8PgUmCh2ECBGvPGGwEZStSdPmXSNn TRAhGWprXKNtQXN1YYB9YIWfOENyQL8UKvIpKMNiRF sbJlDpUNXrVHLbjr0LPBYdSFJuWGV0QlSqRAVaPLTjBLzqGYTaZLBqXNQhQEMrCCZbCU2PQdQgDKPnSH YyYsnhBSMkVIDsyy0HNEWjWYSdCKBvAkGoJXUuTOFrQBkdMTFbKJP7FfN3KCLlCBWbLS7MJpBoELOiFH RkWZaoMFYkKQPkpa2ESHTwYQVgHMBuYYYoKQGvFTIy DRufXQZcXCBcVUW0UMMtCRIwXD4LJkZjBOPaMNO8HCKrDXToUIAjaa0IWIZbYSVlPsM0NyWvIIPgLOHr QGkyRVNwPYO0IMDtBMKfJMOeDA9FFgEdAQOrCVk6EuNfOTWjOYLlhn9SBLQhMMPnYFG6KFWjIJTdGYQm PDihGSQsXIRaNQO6NGEtEDTuLI2QBaRuMIBpAaLoBv JjTEYcNHUgno0UOZJlBBJbNSJnAhYpCCKbLRXvSHviUMZsPTQ2DnMwIAOiMLVvHG8IHsJkLMUtIxo6ZQ FcFQUhNLTavm5IMYTgCWIaGDN4BXWeVZGeJTQtFWmjIXZyVUVcYYMjXXEiISIrBM3JNaUvWSVlBtTsWF DsHWPtHPOdcb5HIJTbBJNlYsg7NyCgSSDsMVUpSKlf ZPEuMPPrXTM7HNXwRMIfNE3CDgSmUDWaDlXgYVnwESIqCOHzst2BRVTbDDUdBIFkCCToDSPtVXDaYBii XMAqOUK4Rkd4WUNoDFNyDZ7AIcSrTTCoZqAlOEzjVKZkFRDyvp7BINIcXLAeXNO2ZJHcQUZiKVJmXWjd EYKtUDZ6JrV0EBEnPTSiRE0YMtUlPWMqCtQ3ITysMP JtFBBcvo2RIKLdAJIpOichTHLnEIZkJGNhXYmyMMYkRTN0OXe8LAXkGAFjBU5AFvViPIWvIdknLDSyPW TsYGHvyy3PRRLjAMVwEPF9AEWhPNNmPVWzVKsgLDYnFZP3GTIpHCUxCPRaQQ7JHrYcKHFxPBStPMSmVV GsCLCked7ADHLfYGK0GyFwQMVuIQPlXHYjFUbrOYIj EATzICG1VOWzWFPpAX4MErLrYRGeRCWjLhRhHHFpQJPcxa1BYNXeOVE4PMFyWgIpLJWnWLXpDGzpMKCm NOP2PTB0YLIuSQVrMZ2TSaKlIBMlQJFnDQEhKNUfLOQpxc9OCMIkRIY3RODxOhQhWWGbMSClEWfrCIGb MWJ4SPlnNTDvVRHoXC8SSlHyOMKxJEx0VYmeFJCiGH Vpnq1UYEMiMVW6PpQ1EMJuSVFxEENoIHoeFDAvUNP4FpEgTQLkBWNpZJ2JQsUrBTewQKIKTbs1AAzvV5 b6RBN2XS1VO6Zfa6OsSLAgMIVHDLneDG8iugVrUUTzBh2OU3oTNdh4KbyzGeLjKaC4KtR5OZR6RnU7DH Z2HdP3H9Y2Bzg6PO0oQHMaSAT7BNClBeL5SAs6Kqps EES0MPTfNlInQWI5TAc6IeRzIM9FKy4CHrO1SOL2cXHwFe2ZQSr6YJoYOvVkIV6IJHh= ID Date Data Source [id number] 04/04/2020 04:55:39 PM EDT [facility] Name Value Range Interpretation Code Description Data Sudha rce(s) Supporting Document(s) Discharge Summary [facility] PGOXOq2eFzYGXbYx41/LYDxiNTQtf0KoGQfyVYg1WNnsDUOfP1WhERL8mR4xQBK4BQlRFpCdRpIcIKIe lbm IbSnaZEtHnYPKpMmyPJsVrUBozSkfrqVXgOM5IjNK8STCjW60lNHHfWXAgW4HfJWA6XUN+Fx3YAIKbiU RcJU7OXrlI1Z5tr1g5Bp3toz9ADEsOfMU7xFdF+onVlqpDOeLEjwtR49SMC3sX9O0Jn2Wq9fz4j2KrDM p9tn3Y6FEwn44/5Q2LDBmNo7rcjWTShne8z6gPD6vg VP6//wfbR15P1E//lIcfxbbTh81vDoJR3vYXEJlEvorevcAmu1ugV99IjKqRx+yuaKykIP4MDaNSn02t j+4+zOfjp+xtEB7IJhkcvrIfItw1WuTysrdpos/tt+r0F/ZzZH4Ul93YMkRj8xVZJwyyqVju4wbJE1yV fQQMjX5zTKbuUgYB49euykw0lQ97QolsfHEqX8j9lz iSL3gSDDD7Tsa/4+3JUDuY769CKdqdiEag54FRk/7U7cW+E4gSjuHIBwcGDi5gAbH3O9WbynuLhPpFw9 vYvsxoR4pD/agoR8ay5NgT1Te5uhrqkpL9UcXj+Z+a+MN20U+yztVdPEn/Y0brc1d90GK1VN6S3o5FzC miJGk68+XS46XlQjqVW+Lr07g8fCr6XXtH74OJENRl vGbX++FjUi9MuwTK4hcilvBfzM8P2gwaUg2DLqjWn5//7+Rh2+E50xGd9i5yUQ2l4RgrT4JztYqsbP [file] dGE+DQogICAgICAgICAgICAgICAgICAgICAgICAgICAgICAgICAgICAgICAgICAgICAgICAgICAgICAg ICAgICAgICAgICAgICAgICAgICAgICAgICAgICAgICAgICAgICAgICAgICAgDQogICAgICAgICAgICAg ICAgICAgICAgICAgICAgICAgICAgICAgICAgICAgIC AgICAgICAgICAgICAgICAgICAgICAgICAgICAgICAgICAgICAgICAgICAgICAgICAgICAgICAgDQogIC AgICAgICAgICAgICAgICAgICAgICAgICAgICAgICAgICAgICAgICAgICAgICAgICAgICAgICAgICAgIC AgICAgICAgICAgICAgICAgICAgICAgICAgICAgICAg ICAgICAgDQogICAgICAgICAgICAgICAgICAgICAgICAgICAgICAgICAgICAgICAgICAgICAgICAgICAg ICAgICAgICAgICAgICAgICAgICAgICAgICAgICAgICAgICAgICAgICAgICAgICAgDQogICAgICAgICAg ICAgICAgICAgICAgICAgICAgICAgICAgICAgICAgIC AgICAgICAgICAgICAgICAgICAgICAgICAgICAgICAgICAgICAgICAgICAgICAgICAgICAgICAgICAgDQ ogICAgICAgICAgICAgICAgICAgICAgICAgICAgICAgICAgICAgICAgICAgICAgICAgICAgICAgICAgIC AgICAgICAgICAgICAgICAgICAgICAgICAgICAgICAg ICAgICAgICAgDQogICAgICAgICAgICAgICAgICAgICAgICAgICAgICAgICAgICAgICAgICAgICAgICAg ICAgICAgICAgICAgICAgICAgICAgICAgICAgICAgICAgICAgICAgICAgICAgICAgICAgDQogICAgICAg ICAgICAgICAgICAgICAgICAgICAgICAgICAgICAgIC AgICAgICAgICAgICAgICAgICAgICAgICAgICAgICAgICAgICAgICAgICAgICAgICAgICAgICAgICAgIC AgDQogICAgICAgICAgICAgICAgICAgICAgICAgICAgICAgICAgICAgICAgICAgICAgICAgICAgICAgIC AgICAgICAgICAgICAgICAgICAgICAgICAgICAgICAg ICAgICAgICAgICAgDQogICAgICAgICAgICAgICAgICAgICAgICAgICAgICAgICAgICAgICAgICAgICAg AONtNUXxIQFeJDHrTQHaGNGxHKTfZRUpAUSvIUUrFSJlVAFnATFlLTEcXPNpFCKpQKCnSVKsUKw1Z7sd JWBvOEIwBE0zPLs8Bw8+NWkDJbTyAGM3pmHnbA1FGW 2eo2FcPWwnPNUug5IyLQs2GM9YYXToSJggIG6IUWhijs3GLSPfWTOxiYTWp7uhIwItTRS6UHWqPyluIY 0LLQCwT0ythiVsBPCaFLQFYWviGPGLQXmbBUPNLNGiACAaFiXaYoQrNJPhVSJkHFHACUW9KSViPlKxQL XoAKLcQvZiEFLAHPQgIHRxJkOkDFiwGG7Wh4HaeTLp MJ8PAg7ZCbNqZE7wdk5ZESFzDPLiVltNYfv1PQmzDF5HaKRqzKT8WeFdRVWUSeXkD2xei9LvLJscDPIX YVliJX2Dd9SedNVzCEy+Kg7BSA5hz4FwMOm1XeOiHK1fnv8OUYoOXaRyJ5JdrEjmVUCyu4KhGEPbICKA wK8rOUB3LTK8YDGgaAcnjoacN84gNg1rNK2LHZF6SW IeToFfDcXkQeYhLXl6DkiiEY0kUAkvJY4DYCS7WAqtBYZlPKGfU2nIBxAhSTYtAEStoByuDL8SYpMbV3 OmvgHxqZN4GhUfVLLTBo7+UVkqlpJdEblVXzK9IKPgu7XxDVn1SY3DOGScERcoRE9MFMGvqO2wDPlqBL 0AUeX1EIMnAZRUDkDoC49fcWWjJEi4M8TpHcLdZUKn RmlsZXMgPDwvTmFtZXMgWyBdDQogID4+ID4+AWpnBA3TKUczkqXcWRPhGb2UDHAhRHPkYB7vEKNgEKVn U5Z9iDfxDFNJGkKfX5oubykcPS7gFWMeL200dWuqaoPuXDB0FRBcJr6CBEMuCMQ7VUEhyPQoCENjDWBP FNnfEG9CsZSiIVO8pY9bYGokCQQaICAsK7qUAbVpiA yvKK95cOjpzhEslVCrRNi+Bj5ILW3ax5UkJFe8vxDeGXduRIW3OEjhFECkKTIvBFFgLOQ3ZHK6VSCGXp LeSFVePKHiGFzuFQHyAKInaj0RYXFuVKE9UmApPWWfYVWxXEDzBWkqHNWeXTW6GEgyXTMjEXDnNA7UDv BdUWPaHNTlHCfmYHNeOUOleo9QXWRfKGAdPWT8MBVm AFJbJORsEBqdZXGaOFJ6Dsz1WWMaBSJeKY8BJfJaQVQnWZs1YoauNFOpHNQxrt4ELFGgUVMnMWt2HdFk CHAhPCZwPIqnVIHmHQWdSBX0SOYxSCTyMJ8SNdWvQIFuSWGbGoUcQLBiSPAsuh6GOELhMEOkODRvFWUk ECHdOKUhFAehLFDcOBS8WOBdFXScSAJcQX5NKtZoZY EoOGkiBVGiVLLmRNWoos4OLMMeAESnVLA3KAKhFVIkSSYgFOgxMECrPJCmWXv3UGVqFFBiIQ6DDtSqJG PvQsR1BAIdQQJtJJVrzc6WQFUjRUJoPOJ7JJAiKKVgCTUxIDtoOMItRUM9ZLs6QOSaWESwIU7UTkRdJZ PtMpueBSWjQHOhGOBild6UHTFgZPQaSOE8DLTzAAFt BWLyBPytFSIeLVGvCDB9SFGcRRApEI3QNsCnNEUiGgNzSWNbVWCyYKPbyw3DGYNzUTDzJgO8JRQoZLPk BAVeMPcsYUObJBMbPvA3CIEcMJInLA7FSfVzUJRuIzQyAlAvNZVvZICfbq0QTVOgBEIgOOL6HEZhPTZa VRKwRLfpUQOjLLU3XaK1FYOsWUAdIP3KSgFdFNShLq J1ITVjIQJgRSSvkj3OXMRkOHYeOMujNMUvGQSbLKBaKNfqAZZfCFP8SSrcDYIzIAIvYV7JNjQfFLJbPk E9TFEkDTYdADOiyg6AZPTzCEMwUkB6LFYlEPQmFIDtFCdwUZVeLMR4MwFhITOvRQUrMO3AOvLjYVQdDf esLTIoYKEbEFYpga7GKVAvRGVuAEO5MzKoXOQzIJKh UNpdFJSiODP1Qdp2VONrDZWkNL6WPnHnYBDoYBSuWtFwXWVeSFSzza3AIEQcMMW2VGZ8POPsJTYxRUFb KGhcDHYcHOTcXNc8BASnSRQdPD0IUkOvYBMmBDI3FdruQIPmGBXebr9PKXSyRUA3ALj6RJVdVHFtFKBf WNfkTMYvJUVpRJC5CZNyQPBbAS7DXhSzKGUtFOOkDq KaWXPjYRQojz7TUSHyWGO4NjJiFfHaZOBhLKTiRQqvRRFsWXAjTzEjZESkCFIgRT0SMfOmFLNzAKXyES MaSECaYKHiyd6GZEWsJTB6MDOnLnTvMKWcBYPgDMifVMNhFUK0QUl4RUWoAMXsZI3EDcTfUSfpAMBIDg l7PNykC1e5WCF1AB9LU8Tro1EqFFuvNENNSEpiNV3k slNdRQJsEr1UJ7eQReh2PjMzAjGqTALiOPToHXLjDEFuWMlfIshvNqOkWlA3Wp3eBZpnA7Y9ZRM8WcU2 TFUhJXY0PeUlYLRxGEKbMYVsNJkfSoXuHI6NZk8FJhA3EZV0dFElIp2HXTN6IAySPhNgBY8CNOu= ID Date Data Source [id number] 04/03/2020 04:03:09 PM EDT [facility] Name Value Range Interpretation Code Description Data Sudha rce(s) Supporting Document(s) Consultation [facility] POZIWw3aOpGQPgFx18/PVUprBNTpi9CpRSeyWBy6WPhuFMXdR8PdWVG7kN3vBQR9XQqKQgWvNeKpZMZy lbm [file] AgICAgICAgICAgICAgICAgICAgICAgICAgICAgICAgICAgICAgICAgICAgICAgICAgICAgICAgICAgIC AgICAgICAgICAgICAgICAgICAgICAgICAgICAgICAg ICAgICAgICANCiAgICAgICAgICAgICAgICAgICAgICAgICAgICAgICAgICAgICAgICAgICAgICAgICAg ICAgICAgICAgICAgICAgICAgICAgICAgICAgICAgICAgICAgICAgICAgICAgICAgICANCiAgICAgICAg ICAgICAgICAgICAgICAgICAgICAgICAgICAgICAgIC AgICAgICAgICAgICAgICAgICAgICAgICAgICAgICAgICAgICAgICAgICAgICAgICAgICAgICAgICAgIC ANCiAgICAgICAgICAgICAgICAgICAgICAgICAgICAgICAgICAgICAgICAgICAgICAgICAgICAgICAgIC AgICAgICAgICAgICAgICAgICAgICAgICAgICAgICAg ICAgICAgICAgICANCiAgICAgICAgICAgICAgICAgICAgICAgICAgICAgICAgICAgICAgICAgICAgICAg ICAgICAgICAgICAgICAgICAgICAgICAgICAgICAgICAgICAgICAgICAgICAgICAgICAgICANCiAgICAg ICAgICAgICAgICAgICAgICAgICAgICAgICAgICAgIC AgICAgICAgICAgICAgICAgICAgICAgICAgICAgICAgICAgICAgICAgICAgICAgICAgICAgICAgICAgIC AgICANCiAgICAgICAgICAgICAgICAgICAgICAgICAgICAgICAgICAgICAgICAgICAgICAgICAgICAgIC AgICAgICAgICAgICAgICAgICAgICAgICAgICAgICAg ICAgICAgICAgICAgICANCiAgICAgICAgICAgICAgICAgICAgICAgICAgICAgICAgICAgICAgICAgICAg ICAgICAgICAgICAgICAgICAgICAgICAgICAgICAgICAgICAgICAgICAgICAgICAgICAgICAgICANCiAg ICAgICAgICAgICAgICAgICAgICAgICAgICAgICAgIC AgICAgICAgICAgICAgICAgICAgICAgICAgICAgICAgICAgICAgICAgICAgICAgICAgICAgICAgICAgIC AgICAgICANCiAgICAgICAgICAgICAgICAgICAgICAgICAgICAgICAgICAgICAgICAgICAgICAgICAgIC AgICAgICAgICAgICAgICAgICAgICAgICAgICAgICAg ICAgICAgICAgICAgICAgICANCjw/kYDzY6ketEIzkcI8C7arBz5RSl7KGU8eh4GsBGKyOKglboUkJhoS TmKoLQNuAtrQZid3GBxoGK6XlZAvX1FrZ4LkSBaoMZ6VRJVqOITbmVKtXNVlPOYhGvB8HTBoYWzjFB3M eWKcCFopTKKrMSMvQaSmAODyKI4RPQYqR215kzOyWe 7ACn0XVlPyMH2zcb9KRBZxYNHjQweKOcr9PWmmDS9AaHMpxZQvFsXiDCLOKbHeT7bfq1UkCYccDEHVSP jhMJ8To0WfeLGaQHm+Jg2DTN4dd5AqPIweZeDnCV6qzu3RJYdEWcGoZ0PyqSgeSRNfgaW1aVLrQMC6HK vimeSyJMDhKe6tZ0XgJRrbVA1TYfXkoDGsQH5aHP2m QUUmYQBzFjAgHMWVYD4WARKiYKEqgFTcSDMyDLNJVB0WTEsfUKQ5PKVsrwIglNOaMMmdLB4ZPQTcseHt MTYgMCBSDQo+Yo8KZA4cd6YvTSbcPOFtCJ9gdt6TEYyQHbBpU4X6gSDkR8X0XOnzMk5MICSyBIRzWNJx QLRWIJunHJ9FAD7bpkR5UM2ArTDwCAAqWOSwoDKqTG l9H81nhAEgRZokNU3ODDE+Dulce+Ml2BKOKrNWQwURGxFiUiNEJDQkPaD3DaB2SYu2QmF9AqHS06sVkana GbIKhiBB2CON7aXQVnEHJKHV7VgMVchC7hheYtTqRdHDMJFgRgH49shPGcTVAsSZH4QORwFi3DADRuZ8 GbbpEpzUusxgFrUPLzRJZERH0TAIaurnJkzUTljOdl YX72hVkjTL4XLn5VTbBrRV8iat6AbOMgYy4AJHMzUE6YYLLuFPYzHWOnFGA2NEIsUeZzGOseMYGfKOCo BIO9NRVmICShHW0CPbCcUAGiAIh0PdErVBLtHEEdmz7SBXVzCZIvCYN1YKIhZXAnKZPiTInmTSUnTWRi HWN7KSUqXQAoWT8AIvReUJVhMCJ5PeudUEKvHDVfbx 9JTAVhCMFfSny4JzZiPPYtOGPzJYveGSYjLXG6UPR1OTYqPAFiAM9GLpMvQRSqMGQ8FqXkQLVcYZZfgr 0YAPCjGEDgMJR2NAWmJOFmFKRlNRphMKZeXAE3LVi0LWWcOTInVS6VSgJcYKJxHJOtUMpeGFSnLDCfuc 9JLZXoEPPmVrTgRnIaTKVsEBFpZVjkGCPdQMU2EsW3 PCLcDVRmUO6GEfByWMVcEEv0FYOxPEHgFYYfon6WMYRtDVLxOfxjEYPoWKOjJITvZIcmFPYeSEG7QqM5 ZMBnYTKvJM3EYgXuACGwBSuiThTdYJHdEQRzwb4CMSAnUNPgZFU0YgQuEZZhPKTsLYl8qzSllDUcYJo0 OO9MB8ApcnWqHIxRKm2Gx765FHP7RDMrDa2DY4lqNz 3tDXBoUCINLv9GROr6LmMyCTA6VFCqNQb2COJaBUIhCOo5YdJ4LOLwWOGbDNZ+WNosBUB0IUx7NUVdVv Q9A8S4U3F6Ifq9UIfaZLB5KVMwUw9mPLDKYa9+XQklnXEugLgwEOMVIxv9WHhRNgPuOD8OMRp= ID Date Data Source [id number] 04/03/2020 02:40:17 PM EDT [facility] Name Value Range Interpretation Code Description Data Sudha rce(s) Supporting Document(s) ED Provider Note [facility] STOQUn2hCcHRXgZn48/ZJWmuHHIdc6NgNJybINp0DDuaEDLgP0KtVIE0fE5uIAM2TOiQPrUrCuTzPBBy lbm [file] 0KRwG2NHD6qNBeFt3MOPwkLTvWMmOvXB2JNOb= ID Date Data Source [id number] 04/04/2020 06:30:23 AM EDT [facility] Name Value Range Interpretation Code Description Data Sudha rce(s) Supporting Document(s) Specimen source [Identifier] of Unspecified specimen [facility] SARS-CoV-2 RNA 2018 nCoV Real-Time RT-PCR: NOT DETECTED [facility] Assay Performed [facility] Patients first test for [facility] Patient employed in healthcare setting [facility] Patient has symptoms related to [facility] When did you start to experience these symptoms [Date and time] [Phen X] [facility] Patient was hospitalized because of this condition [facility] patient was admitted to ICU for condition [facility] Patient resides in a congregate care setting [facility] status [facility] ID Date Data Source [id number] 04/03/2020 01:53:00 PM EDT [facility] Name Value Range Interpretation Code Description Data Sudha rce(s) Supporting Document(s) SARS-CoV-2 RNA [facility] This lab was ordered by [facility] and reported by [facility]. ID Date Data Source [id number] 04/02/2020 04:36:38 PM EDT [facility] Name Value Range Interpretation Code Description Data Sudha rce(s) Supporting Document(s) ED Provider Note [facility] NXYQHy7nHxHPUeVw41/ZGGdbBUUqa0VzSJldESa4XEokRUYdK4DoCHB6qF7tHMC7FOsNVnTwYdImMZS8 lbm [file] JTggRYIKLf3N ID Date Data Source [id number] 04/02/2020 10:02:03 AM EDT [facility] Name Value Range Interpretation Code Description Data Sudha rce(s) Supporting Document(s) ED Provider Note [facility] ZAZEPh7oQhMMDiAk85/WCLozQWRlk2IiAUbnZYn6KLixOHYzM6PiAUH2jQ7gEWG8FDhSLsDjHxGxSTZ2 lbm [file] EcChr4IvVnSZDnPfs+DG9dSQz+Kz6Je9RuncG7hvYhBCp0DyI4AH5JPAEHZ0OJTi== ID Date Data Source [id number] 04/02/2020 10:01:18 AM EDT [facility] Name Value Range Interpretation Code Description Data Sudha rce(s) Supporting Document(s) ED Provider Note [facility] UUZLRl5vQyOUXeMf11/ABYzqXTIlu5BqUXdbHPd3RWymAECzE7DsMAV7uT4zQGB9BUpPMlQvXsElPML0 lbm [file] ubP4HZ8BlVBiYZZoWEPukFRuUMd5W74ryINtPMagDF4QGVV+Dulce+Wa9CLZRsFZVhKQJsDrPnIWUBKnQw P5IeO0HFs0PgZ8SnUQ62rWykuzGtYSmtXR4PFC6bRZ LrZGEYUS4PzOJhyT1rgrD5CuSkBRVRHqFvL55evUEhKRNfJZElQMEvTs4AJBQpZ1PstrXgsZuwmvLdLT DpFEQLDM1ZHVjnfnUmvFIoyWawQM43oBkwQB8SRg4VSkXnBB8wjb6NeEDaIw6FJAC5RP3OQCBnNHNjMR PtDNJ4EPStQpYuOHxfKYFiAXHsZSJ0SWUaRYFgER3E ZfJaTJKsRFH2NGUmXPOgIKMvky8QAMHjPHZ1YyJ2RPTbFLLsGZMrVRcgGUDnNHAaNUC0ZKVnABNhTV9Z DaRnPBHgRFU7NoawPXNqDCWcbx4PUOHyCGOaMaHmEZXzPVUpZQTmSYbaQHMtUIN1Jrt3SBAjDSPaXZ0S NcQjOLXdPWD0RFSmSOSiIZSvnq5BNRTlKRBtXLjgOY WoKOThFMXcWCtkRIDqMVG8KXL6DMOmPSWuYC5ZVaWeBUWyGGF9DRhuHEPnYRArga1KQWNjBTBuRmM7KV ArIFSnZTRaUPryEBBpMSF3CII9WNKgOYWkCZ2UXoBeIUVwCMR2NjBeHWTdOAYzzb9ZXTJrXWSaYjFcGR GrAUUoMZJbWDkrSBZtIJX7FgL4FQFzSBHjVJ3DLoGz TJOdMCn0HxCxICEhZPEwms4CRMNvDPSfIDI0RSOpMOLkAIQhQIvcVPWhAUZdFANyZHAmYGVbQK9MDoXm SYNbYxUyQiQkZYIeYVUpym0LLESgLGGiPjR9MaWqXQDlMHSnVVryHUQpMGD8RmFiGAGkOUQhTH5GOvQh WURnPfryPAelVYKxTKPoyr2MOSVgTGNbJjX8EKGqTN MzKJNsQGyyFLGsEXM1IkH4JQBvXGYqHR4UWnVgEONoUsf3ZHFcYCOhWHElqi4RTGQqKWFeFQN4GDFqXQ RmGVKiXLmdPYUgZQB0IDA8WFRqZQQaFK6VQoVoTZYfTuf1WRVfIPHsUMShkh3CEXVmVIUsVBy9VTDpXY LiBUGfKKlsMLFhBUAuJOF6RGZcGKJfTP0AYxTjZTEp GqUzULPsCLTzUXEoxp8TXOYfSEMsBSP6VHYzQTJiTQUbYSljZUSlTSPwKcO2VLWsMQTtXJ3TKvWnWUYa WGR4VQdzDXBvKUHntw0SXKMgVUU8YbO1HiXqWTIdRXRnVAeoXMYjQQUqKAF3QTVyJMNsWT4XPwMvPUFr UYQ6KNUwXAJeWVOffd0YXUMeIRO5MXCyIWHnQZQnCV UjYUjwROKdEXD4AaPvJMSxHJZuOI2SGrNlBQYcUSS0ASUnJDKvNBUpnu8EWFHyOSR5QDQtYWLkUVKeSA FwXMytXLItIYE3VQE0HRMkJPYqFB8HIsJgAEBkFIE5IVEyRHZoMZNhqx2OUHWbAII5XxClRMNyVZUlXF KeGFbbUOHwEBT0JwG0MRScGHVhTY1KPuVqDDCkUKb5 NTWxMBRhFGQwzc0MMRXsKHB9GpF7OXFvPUOgMUKiBFprDRQkGLZ1Szl9TTYzNDLyRS4QOfTdDLSbQCr3 NKmmWLGeLKQqhs0LTKRtPKB1BEJwQfQxLZYxUYVoPDrkLXNiUYZ3GqL2PBCbXLLhUP8CBeRfHUEmHJn9 QKurPGXmFBIjys3PnWFmyEnwzx1IFKnITl1TqHwfFB F8NZmoNr8hvZO8BeEfNJVNEt3TmvMgWXUtNTSYIQfhEHCeXIUeHgPqR7L5PZe1SLJ4YzesPVMxHBE2BJ njHGBeHKShNpK8TLR4KqB4LZM9HRg9Awu4RCWpAhC4GRF9PrOgXUXgQCR+DM4iOSa+Ii3Pc0WemrV7hn ZcLOg4EMboIr7GBPEVM5HJGo== ID Date Data Source [id number] 04/01/2020 11:52:58 PM EDT [facility] Name Value Range Interpretation Code Description Data Sudha rce(s) Supporting Document(s) ED Provider Note [facility] WWIMPk1gYqPNXhOn88/DXKyuHDRkc4TmKFhfUBj8IWoxWHNzE6RrOQM0vJ7lZAL1QBtQHaSmOgArJZF7 lbm [file] ZDHyRfI0BmHjAT5OAl4SHtR2MAB9jGMzQy1WKSmfUWaQDtQyIF9JSIg= ID Date Data Source [id number] 04/01/2020 09:38:37 PM EDT [facility] Name Value Range Interpretation Code Description Data Sudha rce(s) Supporting Document(s) Consultation [facility] YZUMZy3ySwRISyDu83/PMQtfGCWel9YuTFqtHIs2GLjkNBGtZ5CdCJK7mT1xHBC3EIxWWyTbXuTbLWK3 lbm [file] AgICAgICAgICAgICAgICAgICAgICAgICAgICAgICAgICAgICAgICAgICANCiAgICAgICAgICAgICAgIC AgICAgICAgICAgICAgICAgICAgICAgICAgICAgICAg ICAgICAgICAgICAgICAgICAgICAgICAgICAgICAgICAgICAgICAgICAgICAgICAgICAgICANCiAgICAg ICAgICAgICAgICAgICAgICAgICAgICAgICAgICAgICAgICAgICAgICAgICAgICAgICAgICAgICAgICAg ICAgICAgICAgICAgICAgICAgICAgICAgICAgICAgIC AgICANCiAgICAgICAgICAgICAgICAgICAgICAgICAgICAgICAgICAgICAgICAgICAgICAgICAgICAgIC AgICAgICAgICAgICAgICAgICAgICAgICAgICAgICAgICAgICAgICAgICAgICANCiAgICAgICAgICAgIC AgICAgICAgICAgICAgICAgICAgICAgICAgICAgICAg ICAgICAgICAgICAgICAgICAgICAgICAgICAgICAgICAgICAgICAgICAgICAgICAgICAgICAgICANCiAg ICAgICAgICAgICAgICAgICAgICAgICAgICAgICAgICAgICAgICAgICAgICAgICAgICAgICAgICAgICAg ICAgICAgICAgICAgICAgICAgICAgICAgICAgICAgIC AgICAgICANCiAgICAgICAgICAgICAgICAgICAgICAgICAgICAgICAgICAgICAgICAgICAgICAgICAgIC AgICAgICAgICAgICAgICAgICAgICAgICAgICAgICAgICAgICAgICAgICAgICAgICANCiAgICAgICAgIC AgICAgICAgICAgICAgICAgICAgICAgICAgICAgICAg ICAgICAgICAgICAgICAgICAgICAgICAgICAgICAgICAgICAgICAgICAgICAgICAgICAgICAgICAgICAN CiAgICAgICAgICAgICAgICAgICAgICAgICAgICAgICAgICAgICAgICAgICAgICAgICAgICAgICAgICAg ICAgICAgICAgICAgICAgICAgICAgICAgICAgICAgIC AgICAgICAgICANCiAgICAgICAgICAgICAgICAgICAgICAgICAgICAgICAgICAgICAgICAgICAgICAgIC AgICAgICAgICAgICAgICAgICAgICAgICAgICAgICAgICAgICAgICAgICAgICAgICAgICANCjw/eHBhY2 jlaMElhrZ9V9esVr6OPe9AMU2xq5EbAXRaDCjygjKk EyxFPtHcASOwGvgKZou9FYnpDE0ReXQlT3LiT9XeADwvSZ8BMUOrRJLvdUCkBASlXZOcAnM0MMPfCHyc ER8YnSOxYJvpLNYxAFRxQjHyACRrSOSeVXReURWqCHZLGMDfATFjAcMdDOBgPPQgZSevXNGPARU1AYMn GiMcFMSvZSDhZjTiLBVDLYR4YHLeGsRyWIcgBI5Bs5 JosUGzCL8UDc4JDiJwLL6dxn5GAGVuTYJsFrzYYtt6SDkiLL6RpTBykAO7PvMbBIJQAsNhT7rnf8QnQF FvPIZZNBwcZR5Kz8SkaIJfCWd+Nm8LQR9jm9CyNFx8GvQgFN3zzx8BRJkHUuYuW0QkgZzcLYCaozP1nM GaNCX1SCK3WKBnWC3sRZINJLCls79pCLLMBoLfyFEa ER1jBl6uWBMqLTR3PdZ0GPIZJV5WXJIbHJMwhLLzVLCeBBHQWC5HZWtdBIO1CVVjftTnmQHiCRylLP7J YXJlbnQgNTEgMCBSDQo+Vt4XYB7po6YhGZi4UhRfDC3keq6ANPhGCgLiN2T5xTJjT9T0LRctQi5ZUAFo OOLwUOkdSGTKJHehUX0PND2wbnV7SN4YzAAoGYVzSR ThhCRiMRx8D31fgCZgCUlbUQ1DCEA+Dulce+Je4LBZPgQXPcXWByBgMaHOJGKfZlL7HoJ4BBs7LnA3AyUN 73jWnufzAeCYnbDK6LRR8qFFVcJINPPA4StCJyqB4hceA9VAKmLIALWbEeF58ywXIjCXVeMEPkCMUjIx 8JTDWeR3ZmhmSbeJmqapWbOGQlMDBDJA0JEWqiygSk lDYyvCeeNA54yZwnYS2JSm3IFeMtLJ2fya4JdEQlZt9VJXQ2VF4YPRDaBFTqFGFjHYM6DPGaXcToSIrm QTQqVGCiQVH8HFZbOPCoFE7GXrMzQWBxUGR8CGefBUXsEWRxxa7YONYvVJI4BhE9JmSlPPPvXLKlCXxv XLXyQMWkRUY9ITDhCTYhNZ2YGzKeLJYhVRB6LSCdQM YnUCMvks6CPNJcTRYhDxz4TBGwNRBdXWFxYVmpSADjAHR2XEtmLLCnDYQdRN9PKfYxENQqZAi4KREgLP ShTBZotq2TUIJxLUEyBHl5TEPuFLUbWGLiALgzFSWrSFO8PBC6VEJzBKIwPL7GOlKtFVYeDNX0IsMdIT XfAOLcea4JHQSqXLKzJsxfUrXrDKKlACXqNMqrQDCv KAW6YMX3SCSdYPIePR1UOoYoPIWfCRL2EvMuKDFeMWNwkl1RSRTpEKAaEsr4CySwCJSpEENdACboZBPn GGD6YHuqQUQhIFUcUP9GAtKvMWBxYpWdRGXbZBMgSELtnx1ALRMoQLTvVNB1YlIdJOSnROAjRQdkZYWe ZGPlFKY8VZJvNDAzKO6DOfHdWXYoVeEfJsWdWJQeFE Fnwi3QMIHyFHMcRtHsBjHdHNClDBVhZDshUWTdKKR2YgTrNMHhGEBeRP6WSzNcVILmElXbARAoFFKiKI Mjbd3RXILqZPMcKDY6OIVgOTVcDZYuYMtoCMXfEMAwXfZ5NPPuMIQdZD0GReOyBEPpGwV6ZsAqNGQbMC Agwn6CAIRsKABxHeL5CcStWHFxMKQnWRgfZLHwQIFh CJuyTDIjAODsNN4HDmXkFWNnPcS7FmXjSVKdQUGnsv6JRPNrDZZeUMrgPfPmPVCvDCMkKKfcPMObTSS6 GIO1JEHcUVLaWA3XKcNyRKVhJbViACKzRRBvOPQnsv0ASAVuAZLaAeD9FhVqPIIrNIFvSIqsHHZbMTC8 XwW6RIRsSPOwZH7UKbAfMGDrDlI9HDOyVYBuCLLiqp 3GECPwSFT5NLHuFKTpYTNjFYKiDAlgREVpASRrKyZ7AZBrZZLgTU2AHgStMRDaRWY6DsecWCGnJUZieo 2MIGTrOGE0FoN8IzQiPELuLVDaPSejZPDsREFsDlI1GIKgCTBwGE4JQzXbIKAgMLNzJiqpIBDnPXRjhk 3FEDSmOYE4XaX3JyLiHIHpQWYfLJmsSNFzOZJjVYE5 YYCmVWYdJR2URwUaFDUsITS0ZukvXRAdLJXfyi2GRNAkZLY4SRQ0AXXyPGDvBPPcHMhsDIJfFHC2CPLt YRHlACVpXJ0RMxUnEKNjVJElGzNmYEZvHBZfga1PIAKyIUJ2OMIbHOKxPXXjCRJvCMbyNTCtNIC7IXU5 YVIyFHJqAN0JTlPaOINgGKY8YyEyHZStVYKoxc1TQQ ZwVSN9FgChYLNiYWPuETCjPJbpWZSzBXL6LNFtWGHiMOTjQB7CMsLsPJOcNSn8FCdcHGIsSTIncg6RfS BnfGpind3BGCnETa1UeLoqCTM0UKkdAn7kdJG7EeMcLXFDNi4VtoRkOAIgJCYFSMleRCNbOXLdRGoiMx Q9GaZxLbZ1FZYcOjQdOEtyUEQrDbLwBZA3JiC4HwLt IRPnOCVgCZU9JeB2MGI7UMS4XSJoFPQ1TQI0JbD+BC6jGQr+Ew4Mt8WurdG7nnNzDSv6DlctXP1PVAPO T0YNCg== ID Date Data Source [id number] 04/01/2020 10:19:24 AM EDT [facility] Name Value Range Interpretation Code Description Data Sudha rce(s) Supporting Document(s) [facility] UNUATz2xEqUEXcPmq3CdPhVhWSMfNG4raxk9O9F8eBNbV9JwgOQyy5qrZ1OoK7ZlQQYbPHUFFP5ZmSUa jb2 [file] iUBVqKwwIWs8Lcq0esAkrEnbCrT7PjbbluqI40NP1n81Zs+JOSÉ/EQnAP695JkCR1esH9lU5bFDxklHSp [file] Bk9Er098ENHqMCPYFit+NaibgXUzqXoxJJLVDeI6QnHBWCFTV5I= ID Date Data Source [id number] 04/01/2020 06:12:10 AM EDT [facility] Name Value Range Interpretation Code Description Data Sudha rce(s) Supporting Document(s) Consultation [facility] DVNMFu4vNbUARqSv37/YESnfTLIta2OmNNdgMGx3BDusCSNwJ7KfFCJ4fW6mAKJ4BXpUSmHoKnDcTYK8 lbm [file] 0gDQo+Xh9Vc7FuhuB3omZqORbiECAdPS1QWXWLS7EPBh== ID Date Data Source [id number] 03/31/2020 11:05:39 PM T [facility] Name Value Range Interpretation Code Description Data Sudha rce(s) Supporting Document(s) Consultation [facility] DBXNZt6qJjPDMbUs45/YHAwgVGSrw6AoYNbjBBt1BPhlUGYvR4GrBYI0dY6vRYV2NGwXOnCiKrNuTFO2 lbm [file] ZoHu0YWHHTX9FFFh== ID Date Data Source [id number] 03/31/2020 08:48:28 PM EDT [facility] Name Value Range Interpretation Code Description Data [facility](s) Supporting Document(s) Color of Urine [facility] Clarity of Urine [facility] Specific gravity of Urine by Refractometry automated 1.019 1.003 -1.030 [facility] pH of Urine by Automated test strip 6.0 5.0-8.0 [facility] Protein [Mass/volume] in Urine by Automated test strip 100 mg/dL Neg [facility] Glucose [Mass/volume] in Urine by Automated test strip Neg [facility] Ketones [Mass/volume] in Urine by Automated test strip Neg [facility] Bilirubin.total [Presence] in Urine by Automated test strip Negative [facility] Hemoglobin [Presence] in Urine by Automated test strip Neg ative A [facility] Leukocyte esterase [Presence] in Urine by Automated test strip Negative [facility] Nitrite [Presence] in Urine by Automated test strip Negati ve [facility] Leukocytes [#/area] in Urine sediment by Automated count 42 /HPF 0 -5 H [facility] Erythrocytes [#/area] in Urine sediment by Automated count 23 /HPF 0-3 H [facility] Epithelial cells.squamous [#/area] in Urine sediment by Auto mated count 45 /HPF None [facility] Mucus [#/area] in Urine sediment by Microscopy low power field None [facility] ID Date Data Source [id number] 03/31/2020 09:14:20 PM [facility] Name Value Range Interpretation Code Description Data Sudha rce(s) Supporting Document(s) Amphetamine [Presence] in Urine by Screen method Negative [facility] Benzodiazepines [Presence] in Urine [facility] Cannabinoids [Presence] in Urine by Screen method Negative [facility] Benzoylecgonine [Presence] in Urine by Screen method [facility] Methadone [Presence] in Urine by Screen method Negative [facility] Opiates [Presence] in Urine by Screen method Negative [facility] Oxycodone [Presence] in Urine by Screen method Negative [facility] Fentanyl+Norfentanyl [Presence] in Urine by Screen method Negative [facility] Service comment [facility] Results below the indicated cutoff (ng/m L), are reported as"Negative." Note: for medical purposes only; not valid for legalor employment testing. ID Date Data Source [id number] 03/31/2020 08:03:29 PM [facility] Value Range Interpretation Code Description Data Sudha rce(s) Supporting Document(s) Leukocytes [#/volume] in Blood by Automated count 13.6 10*3/uL 4-10 H [facility] Erythrocytes [#/volume] in Blood by Automated count 4.10 10*6/uL 4.1- 5.3 [facility] Hemoglobin [Mass/volume] in Blood 12.0 g/dL 11.5-15.5 [facility] Hematocrit [Volume Fraction] of Blood by Automated count 36.7 % 3 6-45 [facility] Erythrocyte mean corpuscular volume [Entitic volume] by Auto mated count 89.6 fL 80-96 [facility] Erythrocyte mean corpuscular hemoglobin [Entitic mass] by Automated count 29.3 pg 27-33 [facility] Erythrocyte mean corpuscular hemoglobin concentration [Mass/volume] by Automated count 32.7 g/dL [facility] width [Ratio] by Automated count 12.5 % 11.5-14.5 [facility] Platelets [#/volume] in Blood by Automated count 347 10*3/uL 150-400 [facility] Differential cell count method - Blood [facility] Neutrophils/100 leukocytes in Blood by Automated count 67 % [facility] Lymphocytes/100 leukocytes in Blood by Automated count 28 % [facility] Monocytes/100 leukocytes in Blood by Automated count 5 % [facility] Eosinophils/100 leukocytes in Blood by Automated count 0 % [facility] Basophils/100 leukocytes in Blood by Automated count 0 % [facility] Neutrophils [#/volume] in Blood by Automated count 8.96 10*3/uL 1.8-7 .0 H [facility] Lymphocytes [#/volume] in Blood by Automated count 3.78 10*3/uL 1.2-4 .0 [facility] Monocytes [#/volume] in Blood by Automated count 0.73 10*3/uL 0-0.8 [facility] Eosinophils [#/volume] in Blood by Automated count 0.03 10*3/uL 0-0.5 [facility] Basophils [#/volume] in Blood by Automated count 0.05 10*3/uL 0-0.2 [facility] Nucleated erythrocytes/100 leukocytes [Ratio] in Blood by Automated count 0 /100{WBCs} 0-0 [facility] ID Date Data Source [id number] 03/31/2020 08:13:12 PM [facility] Name Value Range Interpretation Code Description Data Sudha rce(s) Supporting Document(s) aPTT in Platelet poor plasma by Coagulation assay 25.5 s 24.0-33. 0 [facility] ID Date Data Source [id number] 03/31/2020 08:27:10 PM [facility] Name Value Range Interpretation Code Description Data Sudha rce(s) Supporting Document(s) Acetaminophen [Mass/volume] in Serum or Plasma 10.0-30.0 L [facility] ID Date Data Source [id number] [facility] Interpretation Code Description Data Sudha rce(s) Supporting Document(s) Bicarbonate [Moles/volume] in Serum 25 mmol/L 22-29 [facility] Chloride [Moles/volume] in Serum or Plasma 105 mmol/L 98-107 [facility] Creatinine [Mass/volume] in Serum or Plasma 0.53 mg/dL 0.50-0.90 [facility] Glucose [Mass/volume] in Serum or Plasma 83 mg/dL 70-140 [facility] Potassium [Moles/volume] in Serum or Plasma 3.8 mmol/L 3.4-5.1 [facility] Sodium [Moles/volume] in Serum or Plasma 141 mmol/L 136-145 [facility] Urea nitrogen [Mass/volume] in Serum or Plasma 11 mg/dL 6-20 [facility] Anion gap 3 in Serum or Plasma 12 mmol/L 8-15 [facility] Osmolality of Serum or Plasma by calculation 291 mosm/kg 275-300 [facility] Creatinine/Urea nitrogen [Mass Ratio] in Serum or Plasma 21 [facility] Calcium [Mass/volume] in Serum or Plasma 9.1 mg/dL 8.6-10.0 [facility] Glomerular filtration rate/1.73 sq M pre dicted among non-blacks [Volume Rate/Area] in Serum or Plasma by Creatinine-based formula (MDRD) >6 0 [facility] Glomerular filtration rate/1.73 sq M pre dicted among blacks [Volume Rate/Area] in Serum or Plasma by Creatinine-based formula (MDRD) >60 [facility] ID Date Data Source [id number] 03/31/2020 08:27:10 PM [facility] Value Range Interpretation Code Description Data Sudha rce(s) Supporting Document(s) Ethanol [Mass/volume] in Serum or Plasma Negative [facility] ID Date Data Source [id number] 03/31/2020 08:27:10 PM [facility] Value Range Interpretation Code Description Data Sudha rce(s) Supporting Document(s) Thyrotropin [Units/volume] in Serum or Plasma 2.530 u[IU]/mL 0.270-4. 200 [facility] ID Date Data Source [id number] 03/31/2020 08:27:10 PM EDT [facility] Name Value Range Interpretation Code Description Data Sudha rce(s) Supporting Document(s) Salicylates [Mass/volume] in Serum or Plasma 3.0-30.0 L [facility] ID Date Data Source [id number] [facility] Interpretation Code Description Data Sudha rce(s) Supporting Document(s) Choriogonadotropin.beta subunit free [Units/volume] in Serum or Plasm a <5 [facility] (NOTE)Levels between 5 and 25 [IU]/L may indicate earlypregnancy and should be repeated after 48 hours. ID Date Data Source [id number] 03/30/2020 02:11:37 PM EDT [facility] XR CHEST FRONTAL AND LATERAL [id number] RESULTInterpreted by:Akin Skelton, RADHA JeffersonINDICATION: 25-year-old female [...] rce(s) Supporting Document(s) ID Date Data Source [id number] 03/30/2020 10:57:49 AM EDT [facility] Name Value Range Interpretation Code Description Data Sudha rce(s) Supporting Document(s) EKG [facility] [id number]8bkum6W2C0xGHqI3BunLVda3vzG5IuO6OgYICiDVRULJ3NhGOs jb2 [file] hlCKS7Um5BrxGkXRNbTOFMOm9Cx143GEYhQXIFLtn+YsnebILgrWlhRADODvFoNycMWPNSV6L= ID Date Data Source [id number] 03/29/2020 08:11:44 PM EDT [facility] Name Value Range Interpretation Code Description Data Sudha rce(s) Supporting Document(s) ED Provider Note [facility] [id number]/QZUgrRCGbu1RvOFvrOMx6YMkcWFEsL9TnVIE1iD5oTNL9VKpSOgFjFoMwARL5 lbm [file] ID Date Data Source [id number] 03/25/2020 12:37:01 PM EDT [facility] Service Cmnt XXX-Imp : NoneMicroorganism XXX Cult : No beta hemolytic Streptococcus group A isolated Name Value Range Interpretation Code Description Data Sudha rce(s) Supporting Document(s) ID Date Data Source [id number] 03/23/2020 08:35:18 PM EDT [facility] Name Value Range Interpretation Code Description Data Sudha rce(s) Supporting Document(s) ED Provider Note [facility] [id number]/AFEkhCDUwf9QgTWhkUDp8PWwlBAJuN2IjXEL1fQ0xRFG5TQmAToFuInAxYAC6 lbm [file] [id number] ID Date Data Source [id number] 03/23/2020 05:45:20 AM EDT [facility] Name Value Range Interpretation Code Description Data Sudha rce(s) Supporting Document(s) ED Provider Note [facility] [id number]/TGQwdOPOer1CiMAejPUs2OHdzKRBbK7XxLBO9aU9pPNJ0FFzKUaExHaWwMAR5 lbm [file] 6nPQSMXz3+ATqnjKCqlUmyQQMDOiU1BGB8VZghBIWSTf1M ID Date Data Source [id number] 03/01/2020 08:03:55 PM EDT [facility] Name Value Range Interpretation Code Description Data Sudha rce(s) Supporting Document(s) ED Provider Note [facility] MZGANm2aVgGAGqHv82/NRShfZSNze9CuSAvpDOa7YXkpSGJtN1RuLQS1bH0bEYU7JOfFNlCyHbCfNOD7 lbm [file] gxH2gjHiVPhkCXe5VYLQGmTnGR8GAJs= ID Date Data Source [id number] 02/29/2020 01:36:00 PM EDT [facility] [address] [place] [address] [facility] Consultation : [id number] Signed Patient: Amy Carranza Acct:[id number] Unit: [id number] : 1995 Loc: ED Room/Bed: Age/Sex: 25 / F ADM Date: 02/28/20 cc: [facility] Psychiatric Adult Consult Psychiatric Consult Consult Date: [...] No Outpatient Services for Mental health: Yes Retirement/Rehabilitation Center for Mental Health: No Partial Hospital/Day Treatment/IOP for Alcohol/Substance Abuse: No Retirement/Rehabilitation Center for Alcohol/Substance Abuse: No Outpatient Services [...] by the staff at the emergency department. [facility] Suicide Severity Rating Suicidal Ideation/Behavior Prompts 1.Wished [...] did you do any of these?: N/a [facility] Inpatient PQRS [facility] Inpatient PQRS REVIEWED Did you review PQRS this visit?: N/A [facility] Consult Charges Charges Did you complete your charges?: Yes Telehealth Was this Consult done via TeleHealth?: No ER Consults [facility] ED Consults: [id number] ER Consult Detailed 25 mins Signed By:Theodore Conte MD <<Signature on File>> Signed Date/Time: 02/29/20 1344 Co-Signer: Co-Signed Date/Time: Initializing User: Theodore Conte MD 1336 [id number] Name Value Range Interpretation Code Description Data Sudha rce(s) Supporting Document(s) ID Date Data Source [id number] 02/28/2020 09:27:00 PM EDT [facility] Has Patient Fasted For The Past 12 Hour s? N Has Patient Fasted For The Past 12 Hour s? N Has Patient Fasted For The Past 12 Hour s? N Has Patient Fasted For The Past 12 Hour s? N Name Value Range Interpretation Code Description Data Sudha rce(s) Supporting Document(s) WHITE BLOOD COUNT 13.13 10^3/uL 4.00-10.50 [facility] RED BLOOD COUNT 4.21 10^6/uL 3.90-5.20 N [facility] th HEMOGLOBIN 12.6 G/DL 11.5-15.6 N [facility] HEMATOCRIT 37.3 % 35.0-46.0 N [facility] MCV 88.6 FL 80.0-100.0 N [facility] MCH 29.9 PG 27.0-34.0 N [facility] MCHC 33.8 G/DL 32-36 N [facility] RDW 12.2 % 11.5-14.5 N [facility] PLATELET COUNT 335 10^3/uL 130-400 N [facility] MPV 9.9 FL 8.7-13.2 N [facility] GRAN % (AUTO) 67.7 % 42.0-75.0 N [facility] LYMPH % (AUTO) 26.2 % 20.0-51.0 N [facility] MONO % (AUTO) 4.9 % 2.0-15.0 N [facility] EOS % (AUTO) 0.8 % 0.0-11.0 N [facility] BASO % (AUTO) 0.2 % 0.0-2.0 N [facility] IG % (AUTO) 0.2 % 1.00-5.00 [facility] IG # (AUTO) 0.0 10^3/uL <0.5 [facility] GRAN # (AUTO) 8.88 10^3/uL 1.50-6.50 [facility] LYMPH # (AUTO) 3.4 k/uL 1.0-5.0 N [facility] MONO # (AUTO) 0.64 k/uL 0.20-1.50 N [facility] EOS # (AUTO) 0.11 10^3/uL 0.00-1.10 N [facility] BASO # (AUTO) 0.03 10^3/uL 0.00-0.20 N [facility] ID Date Data Source [id number] 02/28/2020 10:00:00 PM [facility] Has Patient Fasted For The Past 12 Hour s? N Has Patient Fasted For The Past 12 Hour s? N Has Patient Fasted For The Past 12 Hour s? N Has Patient Fasted For The Past 12 Hour s? N Name Value Range Interpretation Code Description Data Sudha rce(s) Supporting Document(s) SODIUM 139 MEQ/L 135-145 N [facility] POTASSIUM 4.0 MEQ/L 3.5-5.3 N [facility] CHLORIDE 106 MEQ/L 94-110 N [facility] CARBON DIOXIDE 26 MEQ/L 22-33 N [facility] ANION GAP 11 5-16 N [facility] BLOOD UREA NITRO 13 MG/DL 7-25 N [facility] CREATININE 0.6 MG/DL 0.6-1.4 N [facility] GFR > 90.0 ML/MIN [facility] Stage G1 - Normal or high kidney functi on The GFR is an estimate of the Glomerular Filtration Rate. It is an aid to assess a patient's renal function. It is not a conclusive diagnosis of kidney disease. GFR normal is >=90 The MDRD GFR calculation is considered valid between the ages of 18 and 75 years only. BUN/CREAT RATIO 21 8-[address] [facility] GLUCOSE 110 MG/DL 70-100 H [facility] CA 9.3 MG/DL 8.7-10.[address] [facility] BILIRUBIN,TOTAL 0.3 MG/DL 0.1-1.[address] [facility] AST 32 U/L 5-40 N [facility] ALT 65 U/L 5-48 H [facility] ALKALINE PHOSPHATASE 97 U/L 40-140 [facility] alth TOTAL PROTEIN 6.4 G/DL 5.9-8.3 N [facility] ALBUMIN 4.5 G/DL 3.0-5.[address] [facility] GLOBULIN 1.9 G/DL 1.5-3.[address] [facility] ALB/GLOB RATIO 2.4 G/DL 1.0-3.[address] [facility] ID Date Data Source [id number] 02/28/2020 10:00:00 PM [facility] Has Patient Fasted For The Past 12 Hour s? N Has Patient Fasted For The Past 12 Hour s? N Has Patient Fasted For The Past 12 Hour s? N Has Patient Fasted For The Past 12 Hour s? N Name Value Range Interpretation Code Description Data Sudha rce(s) Supporting Document(s) SALICYLATE < 3.0 MG/DL 2.8-20.0 N [facility] ID Date Data Source [id number] 02/28/2020 10:00:00 PM [facility] Has Patient Fasted For The Past 12 Hour s? N Has Patient Fasted For The Past 12 Hour s? N Has Patient Fasted For The Past 12 Hour s? N Has Patient Fasted For The Past 12 Hour s? N Name Value Range Interpretation Code Description Data Sudha rce(s) Supporting Document(s) ACETAMINOPHEN < 2.0 UG/ML 10-30 L [facility] High levels of N-acetylcysteine (used t o treat Acetaminophen overdose) may cause interference and cause a negative bias in the Acetaminophen result. ID Date Data Source [id number] 02/28/2020 10:00:00 PM [facility] Has Patient Fasted For The Past 12 Hour s? N Has Patient Fasted For The Past 12 Hour s? N Has Patient Fasted For The Past 12 Hour s? N Has Patient Fasted For The Past 12 Hour s? N Name Value Range Interpretation Code Description Data Sudha rce(s) Supporting Document(s) BLOOD ALCOHOL < 0.03 % <0.03 [facility] ID Date Data Source [id number] 02/28/2020 09:09:00 PM [facility] Has Patient Fasted For The Past 12 Hour s? N Has Patient Fasted For The Past 12 Hour s? N Has Patient Fasted For The Past 12 Hour s? N Has Patient Fasted For The Past 12 Hour s? N Name Value Range Interpretation Code Description Data Sudha rce(s) Supporting Document(s) HCG QUALITATIVE SPECIMEN URINE [facility] ID Date Data Source [id number] 02/28/2020 09:09:00 PM [facility] Has Patient Fasted For The Past 12 Hour s? N Has Patient Fasted For The Past 12 Hour s? N Has Patient Fasted For The Past 12 Hour s? N Has Patient Fasted For The Past 12 Hour s? N Name Value Range Interpretation Code Description Data Sudha rce(s) Supporting Document(s) HCG RESULT,U NEGATIVE [facility] Reference range is Negative To ensure best sensitivity, first morning void is recommended. Dilute, low specific gravity urine may give a falsely negative result. If is suspected, repeat testing with a new specimen 48-72 hours later. ID Date Data Source [id number] 02/28/2020 09:11:00 PM EDT [facility] Name Value Range Interpretation Code Description Data Sudha rce(s) Supporting Document(s) COLOR,UR RED YELLOW A [facility] APPEARANCE,UR CLEAR CLEAR [facility] PH,UR 7.0 5.0-8.0 [facility] SPECIFIC GRAVITY,UR 1.000 1.002-1.035 L [facility] PROTEIN,UR 100 MG/DL NEGATIVE A [facility] GLUCOSE, UR NEGATIVE MG/DL NEGATIVE [facility] KETONES,UR NEGATIVE MG/DL NEGATIVE [facility] OCCULT BLOOD,UR LARGE NEGATIVE A [facility] NITRATE,UR NEGATIVE NEGATIVE [facility] LEUKOCYTE ESTERASE ,UR NEGATIVE NEGATIVE [facility] BILIRUBIN,UR NEGATIVE NEGATIVE [facility] UROBILINOGEN,UR 0.2-1.0 EU MG/DL NEG-0-1.0 [facility] RBC,UR None Seen PER HPF 0-2 [facility] WBC,UR <5 PER HPF <5 [facility] URINE EPITH RARE PER/LPF FEW-MOD [facility] BACTERIA,UR RARE PER HPF NONE [facility] HYALINE CAST,UR RARE PER/LPF NONE SEEN [facility] ID Date Data Source [id number] 02/28/2020 09:14:00 PM EDT [facility] Name Value Range Interpretation Code Description Data [facility] rce(s) Supporting Document(s) OPIATE SCREEN NEG NEGATIVE [facility] Minimum Detectable Limit is 300 ng/mL. BARBITURATE SCREEN NEG NEGATIVE [facility] Minimum Detectable Limit is 300 ng/mL. PHENCYCLIDINE SCREEN NEG NEGATIVE [facility] Minimum Detectable Limit is 25 ng/mL. AMPHETAMINE SCREEN NEG NEGATIVE [facility] Minimum Detectable Limit is 1000 mg/mL. BENZODIAZEPINE SCREEN NEG NEGATIVE [facility] Mininum Detectable Limit is 300 ng/mL. COCAINE SCREEN NEG NEGATIVE [facility] Minimum Detectable Limit is 300 ng/mL. CANNABINOID SCREEN NEG NEGATIVE [facility] Minimum Detectable limit is 50 ng/dL. HEROIN SCREEN NEG NEGATIVE [facility] Minimum Detectable limit is 10 ng/dL. A ll POSITIVE or BORDER results are unconfirmed. Please contact the laboratory if a reference testing confirmation is needed. ID Date Data Source [id number] 02/28/2020 08:39:00 [place] [address] [facility]NAG[facility] ED/UC Physician Report : [id number] Signed with Josh Patient: Amy Carranza Acct:[id number] Unit : [id number] : 1995 Arrival Date: 02/28/20 Age/Sex: 25 [...] Comments: PATIENT WAS DISCHARGED EARLIER TODAY FROM [facility] WORSE SHE WAS ADMITTED FOR SUICIDAL [...] TREMORS. NO SIGNIFICANT SIGNS OF SELF-INFLICTED WOUNDS. 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 PSYCH: ANXIOUS, DEPRESSED, WITHDRAWN. SKIN: DRY, NO RASH, NO SIGNIFICANT LESIONS. Course Course Course Narrative: I DID DISCUSS THE CASE WITH CARMELO VIRGEN NP WHO KNOWS HER FROM BEFORE AND AGREED TO KEEP THE PATIENT IN THE EMERGENCY ROOM DUE TO LACK OF BEDS AT [facility] AND SHE WILL SEE HER INTHE [...] rce(s) Supporting Document(s) ID Date Data Source [id number] 02/28/2020 07:37:00 [place] [address] [facility] INFORMATION [facility]NAGEMENT ED/ Physician Report : [id number] Signed Patient: Amy Carranza Acct:[id number] Unit : [id number] : 1995 Arrival Date: 02/28/20 Age/Sex: 25 [...] Illness Initial Comments: PATIENT WAS DISCHARGED FROM [facility] COUPLE OF HOURS AGO WHERE SHE [...] EXT: NO EDEMA OR CLUBBING OR TREMORS. 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 SKIN: DRY, NO RASH, [...] rce(s) Supporting Document(s) ID Date Data Source [id number] 02/28/2020 03:05:56 AM EDT [facility] Name Value Range Interpretation Code Description Data Sudha rce(s) Supporting Document(s) ED Provider Note [facility] TMXFRy2zEiZTCeCy45/JIFnzZGRzz6JeEZphFDu1SGeyWMReV5PaIXT6tP2fWWJ6AIfOJiHnKdEdFRS3 lbm [file] [id number]+WJ2sGLs+Ec5Vi6MactM0ziKeDHl9SIM6ZC9BMFGLY6ASMh== ID Date Data Source [id number] 02/22/2020 04:50:00 PM EDT [facility] Name Value Range Interpretation Code Description Data Sudha rce(s) Supporting Document(s) SARS-CoV-2 (COVID-19) N gene [Presence] in Nasopharynx by EDUARDO with probe detection [facility] This lab was ordered by [facility] and reported by [facility]. ID Date Data Source [id number] 02/23/2020 02:28:00 PM EDT [facility] COVID Reason [place] Admission Priority Name Value Range Interpretation Code Description Data Sudha rce(s) Supporting Document(s) COVID 19 (RHEONIX) NOT-DETECTED NOTDETECTED [facility] The [employer] COVID-19 MDx Assay is an en dpoint RT-PCR assay intended for the qualitative detection of nucleic acid from SARS-CoV-2 in nasopharyngeal swabs. COVID testing using the [employer] analyzer was developed for the purpose of [...] public health authorities. ID Date Data Source [id number] 02/24/2020 10:55:00 AM EDT [facility] Name Value Range Interpretation Code Description Data Sudha rce(s) Supporting Document(s) RAPID PLASMA REAGIN NON-REACTIVE NONREACTIVE [facility] Test performed by charcoal methodology ID Date Data Source [id number] 02/21/2020 07:00:00 PM EDT [facility] Has Patient Fasted For The Past [...] WHITE BLOOD COUNT 12.23 10^3/uL 4.00-10.50 H [facility] RED BLOOD COUNT 3.89 10^6/uL 3.90-5.20 L [facility] th HEMOGLOBIN 11.6 G/DL 11.5-15.6 N [facility] HEMATOCRIT 35.1 % 35.0-46.0 N [facility] MCV 90.2 FL 80.0-100.0 N [facility] MCH 29.8 PG 27.0-34.0 N [facility] MCHC 33.0 G/DL 32-36 N [facility] RDW 12.2 % 11.5-14.5 N [facility] PLATELET COUNT 311 10^3/uL 130-400 N [facility] MPV 10.1 FL 8.7-13.2 N [facility] GRAN % (AUTO) 65.8 % 42.0-75.0 N [facility] LYMPH % (AUTO) 27.2 % 20.0-51.0 N [facility] MONO % (AUTO) 5.6 % 2.0-15.0 N [facility] EOS % (AUTO) 0.8 % 0.0-11.0 N [facility] BASO % (AUTO) 0.3 % 0.0-2.0 N [facility] IG % (AUTO) 0.3 % 1.00-5.00 [facility] IG # (AUTO) 0.0 10^3/uL <0.5 [facility] GRAN # (AUTO) 8.04 10^3/uL 1.50-6.50 H [facility] LYMPH # (AUTO) 3.3 k/uL 1.0-5.0 N [facility] MONO # (AUTO) 0.68 k/uL 0.20-1.50 N [facility] EOS # (AUTO) 0.10 10^3/uL 0.00-1.10 N [facility] BASO # (AUTO) 0.04 10^3/uL 0.00-0.20 N [facility] ID Date Data Source [id number] 02/24/2020 09:37:00 AM EDT [facility] Has Patient Fasted For The Past [...] Supporting Document(s) SODIUM 142 MEQ/L 135-145 N [facility] POTASSIUM 4.1 MEQ/L 3.5-5.3 N [facility] CHLORIDE 108 MEQ/L 94-110 N [facility] CARBON DIOXIDE 28 MEQ/L 22-33 N [facility] ANION GAP 10 5-16 N [facility] BLOOD UREA NITRO 11 MG/DL 7-25 N [facility] CREATININE 0.5 MG/DL 0.6-1.4 L [facility] GFR > 90.0 ML/MIN [facility] Stage G1 - Normal or high [...] years only. BUN/CREAT RATIO 22 8-36 N [facility] GLUCOSE 121 MG/DL 70-100 H [facility] CA 9.0 MG/DL 8.7-10.5 N [facility] BILIRUBIN,TOTAL 0.2 MG/DL 0.1-1.3 N [facility] AST 29 U/L 5-40 N [facility] ALT 59 U/L 5-48 H [facility] ALKALINE PHOSPHATASE 92 U/L 40-140 N [facility] alth TOTAL PROTEIN 5.8 G/DL 5.9-8.3 L [facility] ALBUMIN 4.1 G/DL 3.0-5.1 N [facility] GLOBULIN 1.7 G/DL 1.5-3.5 N [facility] ALB/GLOB RATIO 2.4 G/DL 1.0-3.0 N [facility] ID Date Data Source [id number] 02/24/2020 09:37:00 AM [facility] Has Patient Fasted For The Past 12 [...] Supporting Document(s) FOLATE 10.81 NG/ML 3.40-24.00 N [facility] ID Date Data Source [id number] 02/24/2020 09:37:00 AM [facility] Has Patient Fasted For The Past 12 [...] Document(s) Vitamin D,25-HYDROXY 17.5 ng/ml 30-100 L [facility] Vitamin D Status Range De ficiency <20 ng/ml Insufficiency 20-29.9 ng/ml Sufficiency 30-100 ng/ml Toxicity >100 ng/ml Patients should not be tested for 72 hours post fluorescein dye angiography. A false elevation of result may occur. ID Date Data Source [id number] 02/24/2020 09:37:00 AM [facility] Has Patient Fasted For The Past 12 [...] Supporting Document(s) SALICYLATE < 3.0 MG/DL 2.8-20.[address] [facility] ID Date Data Source [id number] 02/24/2020 09:37:00 AM [facility] Has Patient Fasted For The Past 12 [...] Document(s) ACETAMINOPHEN < 2.0 UG/ML 10-30 L [facility] High levels of N-acetylcysteine (used t o treat Acetaminophen overdose) may cause interference and cause a negative bias in the Acetaminophen result. ID Date Data Source [id number] 02/24/2020 09:37:00 AM T [facility] Has Patient Fasted For The Past [...] Document(s) BLOOD ALCOHOL < 0.03 % <0.03 [facility] ID Date Data Source [id number] 02/21/2020 06:30:00 PM T [facility] Has Patient Fasted For The Past [...] rce(s) Supporting Document(s) HCG QUALITATIVE SPECIMEN URINE [facility] ID Date Data Source [id number] 02/21/2020 06:30:00 PM T [facility] Has Patient Fasted For The Past [...] Sudha rce(s) Supporting Document(s) HCG RESULT,U NEGATIVE [facility] Reference range is Negative To ensure best sensitivity, first morning void is recommended. Dilute, low specific gravity urine may give a falsely negative result. If is suspected, repeat testing with a new specimen 48-72 hours later. ID Date Data Source [id number] 02/21/2020 09:38:00 PM EDT [facility] Run: 02/23/20 0750 INTERFACED REPORT Name: Amy Carranza Age/Sex: 25/F Location: [facility] Acct: [id number] Unit: [id number] Status: ADM IN Room/Bed: 904-B Re02/22/20 Disch: Raisa Dr: Theodore Conte MD Specimen #: [id number] Ordered : 02/21/2002/01/2139 Collected : 02/21/2002/02/1816 By: [...] rce(s) Supporting Document(s) OPIATE SCREEN NEG NEGATIVE [facility] Minimum Detectable Limit is 300 ng/mL. BARBITURATE SCREEN NEG NEGATIVE [facility] th Minimum Detectable Limit is 300 ng/mL. PHENCYCLIDINE SCREEN NEG NEGATIVE [facility] Minimum Detectable Limit is 25 ng/mL. AMPHETAMINE SCREEN NEG NEGATIVE [facility] th Minimum Detectable Limit is 1000 mg/mL. BENZODIAZEPINE SCREEN NEG NEGATIVE [facility] Mininum Detectable Limit is 300 ng/mL. COCAINE SCREEN NEG NEGATIVE [facility] Minimum Detectable Limit is 300 ng/mL. CANNABINOID SCREEN NEG NEGATIVE [facility] th Minimum Detectable limit is 50 ng/dL. HEROIN SCREEN NEG NEGATIVE [facility] Minimum Detectable limit is 10 ng/dL. A ll POSITIVE or BORDER results are unconfirmed. Please contact the laboratory if a reference testing confirmation is needed. ID Date Data Source [id number] 02/21/2020 09:39:00 PM EDT [facility] Run: 02/23/20 0750 INTERFACED REPORT Name: Amy Carranza Panda Age/Sex: 25/F Location: [facility] Acct: [id number] Unit: [id number] Status: ADM IN Room/Bed: 904-B Re02/22/20 Disch: Raisa Dr: Theodore Conte MD Specimen #: [id number] Ordered : 02/21/2002/01/2139 Collected : 02/21/2002/02/1816 By: [...] rce(s) Supporting Document(s) COLOR,UR AGNES YELLOW A [facility] APPEARANCE,UR TURBID CLEAR A [facility] PH,UR >9.0 5.0-8.0 A [facility] SPECIFIC GRAVITY,UR 1.012 1.002-1.035 N [facility] PROTEIN,UR NEGATIVE MG/DL NEGATIVE [facility] GLUCOSE, UR NEGATIVE MG/DL NEGATIVE [facility] KETONES,UR NEGATIVE MG/DL NEGATIVE [facility] OCCULT BLOOD,UR MODERATE NEGATIVE A [facility] NITRATE,UR NEGATIVE NEGATIVE [facility] LEUKOCYTE ESTERASE ,UR SMALL NEGATIVE A [facility] BILIRUBIN,UR NEGATIVE NEGATIVE [facility] UROBILINOGEN,UR 0.2-1.0 EU MG/DL NEG-0-1.0 [facility] RBC,UR 1-2 PER HPF 0-2 [facility] WBC,UR <5 PER HPF <5 [facility] URINE EPITH FEW PER/LPF FEW-MOD [facility] AMORPH SED,UR FEW PER LPF NEGATIVE [facility] BACTERIA,UR RARE PER HPF NONE [facility] ID Date Data Source [id number] 02/23/2020 07:50:00 AM EDT [facility] Run: 02/23/20 0750 INTERFACED REPORT Name: Amy Carranza Age/Sex: 25/F Location: [facility] Acct: [id number] Unit: [id number] Status: ADM IN Room/Bed: 904-B Re02/22/20 Disch: Raisa Dr: Theodore Conte MD Specimen #: [id number] Ordered : 02/21/2002/01/2139 Collected : 02/21/2002/02/1816 By: [...] rce(s) Supporting Document(s) ID Date Data Source [id number] 02/21/2020 05:53:00 [place] [address] HEALTH INFORMATION MANAGEMENT ED/UC Physician Report : [id number] Signed Patient: Amy Carranza Acct:[id number] Unit : [id number] : 1995 Arrival Date: 02/21/20 Age/Sex: 25 [...] of Ideas Skin Skin exam: Dry, Intact, [place] and Warm Course Vital Signs Vital signs: [...] File>> Initializing User: Fabian Bowen MD 02/21/20 3958 Signed by: Fabian Bowen MD 02/21/20 6776 Name Value Range Interpretation Code Description Data Sudha rce(s) Supporting Document(s) ID Date Data Source [id number] 02/23/2020 08:54:00 PM EDT [facility] Name Value Range Interpretation Code Description Data Sudha rce(s) Supporting Document(s) VITAMIN B12 290 PG/ML N [facility] ID Date Data Source [id number] 02/20/2020 03:52:13 PM EDT [facility] Name Value Range Interpretation Code Description Data Sudha rce(s) Supporting Document(s) Consultation [facility] JGBQDu7qFcAYCgEi02/WBUgfESOuj6CoBHmyEOo0FYrkKRDvZ0FuYDQ6wV4mLNG9ZCePEjTdOeOwKSS0 lbm [file] fmYzod48RMwF57/5gb0P3jsyoq2//wraparound facilitator/4l5lcMi47 [file] T0YNCg== ID Date Data Source [id number] 02/20/2020 02:43:25 PM EDT [facility] Name Value Range Interpretation Code Description Data Sudha rce(s) Supporting Document(s) Consultation [facility] GMTGQk9iToHAApOw84/PLOzbDENox8QjGPjiVWi1YOyhECChG7RnPIS9cV4hPPA0TNtZSxRrBoEsTLV5 lbm [file] ICAgICAgICAgICAgICAgICAgICAgICAgICAgICAgICAgICAgICAgICAgICAgICAgICAgDQogICAgICAg ICAgICAgICAgICAgICAgICAgICAgICAgICAgICAgIC AgICAgICAgICAgICAgICAgICAgICAgICAgICAgICAgICAgICAgICAgICAgICAgICAgICAgICAgICAgIC AgDQogICAgICAgICAgICAgICAgICAgICAgICAgICAgICAgICAgICAgICAgICAgICAgICAgICAgICAgIC AgICAgICAgICAgICAgICAgICAgICAgICAgICAgICAg ICAgICAgICAgICAgDQogICAgICAgICAgICAgICAgICAgICAgICAgICAgICAgICAgICAgICAgICAgICAg ICAgICAgICAgICAgICAgICAgICAgICAgICAgICAgICAgICAgICAgICAgICAgICAgICAgICAgDQogICAg ICAgICAgICAgICAgICAgICAgICAgICAgICAgICAgIC AgICAgICAgICAgICAgICAgICAgICAgICAgICAgICAgICAgICAgICAgICAgICAgICAgICAgICAgICAgIC AgICAgDQogICAgICAgICAgICAgICAgICAgICAgICAgICAgICAgICAgICAgICAgICAgICAgICAgICAgIC AgICAgICAgICAgICAgICAgICAgICAgICAgICAgICAg ICAgICAgICAgICAgICAgDQogICAgICAgICAgICAgICAgICAgICAgICAgICAgICAgICAgICAgICAgICAg ICAgICAgICAgICAgICAgICAgICAgICAgICAgICAgICAgICAgICAgICAgICAgICAgICAgICAgICAgDQog ICAgICAgICAgICAgICAgICAgICAgICAgICAgICAgIC AgICAgICAgICAgICAgICAgICAgICAgICAgICAgICAgICAgICAgICAgICAgICAgICAgICAgICAgICAgIC AgICAgICAgDQogICAgICAgICAgICAgICAgICAgICAgICAgICAgICAgICAgICAgICAgICAgICAgICAgIC AgICAgICAgICAgICAgICAgICAgICAgICAgICAgICAg ICAgICAgICAgICAgICAgICAgDQogICAgICAgICAgICAgICAgICAgICAgICAgICAgICAgICAgICAgICAg ICAgICAgICAgICAgICAgICAgICAgICAgICAgICAgICAgICAgICAgICAgICAgICAgICAgICAgICAgICAg NUu6D4ojNLIjGRJvMS4mFSv3Ea9+NXbDViEeHRQ9ts UxvF0WJO3hm1MgWNwnUNRak2DgAOe8UP6NFBQmIMgeIO1DFQxftz7PCQCvSIJeuVXQl2saDbGtTYW3YO NwYqdiYM5ORQGaJ3vfvyElJMNkWIXAPXrvBSRPIWdkZHGUSXHuDSTwNlFgUqRkUQIhMCYaVUFTHZE9IS OzJkQcNTHbKULfOkZbNEYOVVFcLFExGcPxFIgrGI1F q9DamPRyMM1DDz2VTwUdGL9nfe2QOEMcMAMvUpzQWhn2KFhtES2WiUPdfSB2PAIzNRDFVfOxK7hlm0Mr SDGhXFEXOQhzTL0Qi8WdmOCtDLd+Ig7CQH7kt8SgXOi1WXCsRI9zny1SYLoKWvXcC6WpaOpoLSAnunI2 oBDsXQS7RA2mC3kkMNJZsD0vpWvuIB6sVRAdOY3oLS 6aWYErIYHvJbPlRHOPOQ7WPUQePQSakMWhETRwGLWWTS4ZJEwuPJS9FRHbqkQbjNPlTInyYY0VITUkmc QgNTQgMCBSDQo+Ey6MHC5uo7WdNGa2AmEuLQ2ohg6SSFyJKkLyU1N3wEVvN3M7GHuyUl6NOZCdUIKmOQ UsEMKYCLlwUQ8UAC8kjbZ4UO8GkMPvGIViXDBcaJQe HFe3Y83nvHUtOLygPK3SSBI+Dulce+Dk5WMAFtTFNmAWPtYkNjRMHCWmMwL2TvD8LKe9MhG8UaLV92dZbv thUtAZbrLO7AGP3uSUCrFWTBMC6AgSBxzE5nirT8CBAaIGJTMvUfO07oyQKzQVWaABKmXUXlAn7WAQGh I0QjgsKeeWvvtfNyKENcFXHWOQ5CSLxrfpKorKZnkE wdTB21eLosEX1YEn2AFkJiRF1lby7HuJUrMr4OIBY6Rf3CIYPnTSLyWBBuBOC7SAEwVxLuZEzdHMDtQH XiUOA6KNHiPHVfDG9IOiEwEBNsGoI0VNYaHWTlUDDzse3ZRJCtMDH4GrQ8OfEmEMIjCWFgPCehVVYqEE MpNBO1FCAfTAJbGF4WFkAaNYArETC5QbstHCCuKMNn cs0YSGGyJTPjUNFeTzWcVIUpFLVjYHtaQWXmPQC2LIzfCHLnXQLqVG2SZfAjAVNjKFhcRwegRYBuYNKe wp3MGARiXXZnPNX9XeMcJONdAOElKGhePHXxGCKkYef0QRXnAOCjMY4VBgQhDBPvKBV3VQOsEDXaMUPu ud7NTXDmBYOpGbp9EiGlWPUjOQMkYVldWMKcEMM7WB R8ZXJeICGjXW7FEqMePBMlZLmlIXYySBLsXYGxol3XSTYsTLUmUJciIxWdZAGlIESlTGofDJHcUMYfEI IrWUXfGBDkCM8FGgAiDXNoOpHlXtxmKVQjSEXuwl9KFZCnPNDmJPD1WFHxCQBxLZAjYEciINQxGIL4LC AuEJEqWJXsKW5FRwJpIMAkXde0ZjNxCYDrUOUscx3Z BPAlBRSiUeZ4CJArQMGrHPXeLWjqKTAnQARfGkW8NITpLPQrDU1BXiZcIWBjUbTsOiLmTXFmGNVnnj5J CAUjTQMuCBE4MCLyLCAgBRBuFLvdTYLcJRK8MbGmTMJrSOLeTC9JEfQwVRTyPxM2AewvYAYiFJWnbz8D OVAvPQRdQfujMMRbVPVpPOWrVEuwHOWeCCB0DzxsYG GzGXJzYF0TMtZjKLYsVjy5ZzMdSKGvUWBzva7YQGBzRVDaBDH5TQLdDICfUBCuSGxqSKUlANA2CUAdFD YhHIAeQR9DAhYaPQEjLvstXHwqEIUbXFBajq3PTFNjTGKgRBXlVEUpTYTjTUBoVMstHPSoFWYkZiSsAA CfNNYiAB3YEuGeDQPtVHU1GcTwLMOlAQImxj9HXVOo WNP0VDe4UQKaNJHqONJvFWcpGQSgRYXbMYL7RKTkIYTzHO6FTjJaUKShRFJ8BGgtUSCiFDSrig4LFMSl FJS8EaD5CgQoASUwBXBaVEmbFXMuREBpGFR1FVBfHJKzGO6ESdQhQDIjDFPnSBQrFHJaAQCurs8HAHIl WWN5Gjz5WERiVMVyVWXyMMhaCHUnQEX2WNi6ZFLcYK YsGW4BVxDtEGDeQVAeLzLnYQDcXWEqdx8ALFNrLGW1KEUsHjLvFERbRUNfRRmzAGCwMCO9RTS0QFZtVY SdUU5HKuSlQXHyNEj4YmXnRTQmGZMtbi8QQTKrAYC3MZZpVGChYMUyPLHvSAtoRQVpXRCpOLUdUUHvPU SfZQ7MMcAaRYNiSvDqNiCrUZNlNHTofd0IYLEnSEW4 ZQLeCSDqQEZqUNHkPFaqJPRoXEAyLmUxKVRrPXWqHO0UJvSgXHQfVjHvCXTdQPGlEGSqsz1FVEZvJFC4 Suh4NdWmZHGpONEjVCbzZUVxXDHqRMClPYAfFYCoVD6VXsArBGFcKbG0LELsWCAyWNPztm4LwSMckSdd ja2BQThTCc8OkIafCZE4VLtuRp9krLS8WcMdIKZKVs 1NokSwRWZvUCHKFPjqRPTbSSOfIXocAUC3XEPsNtSoQsD5YCSzV2O6TNRpYLo8UpH0HkC8PZV6MsM2CU o1NSA0UgN2BVWdYvMxVREhGTRsMKhdJsp+MO7pDWi+Rr8Ex1GvjsC9udFaPYd4AsA2LK5DCDGSP7PDDh == ID Date Data Source [id number] 02/19/2020 09:06:27 PM EDT [facility] Name Value Range Interpretation Code Description Data Sudha rce(s) Supporting Document(s) ED Provider Note [facility] ECWVUo1hXgDLWtLx81/OSYiiDUVew3QwZCbhVXk6MWucLRQdH4RdNMR8iC3jNFT9FTgGNmFvYzWsCNT2 lbm [file] OTkzMSAwMDAwMCBuDQowMDAwMDkwMTcwIDAwMDAwIG 7LPjXvXTPkTBTqIPToJQMkNUFkke2RFEKgINF1EOQ8PZPyELKxUUCkLFzhKADsKWruOID6HYFcEUMnEA 8UThEqEWMrVCR3BbJbAVPxLPJpvj5UZSFaQOR4YeV5GUXrFELpCDBfGFmcAEBlAPocToI6PHToTZEvVG 6ESaWaATEdGHP3GyFwWYLiIUZftn9YWJIaJCL7Ekky LDOkUFOcSZLyWBehBIPaEUe4YYe4QEJpOVOmNU1MPvZeAABxXSSzEsRyNPYzIXVaso3GCRXnRFT9XVN6 FTWhYNVfJLMqFCemRYPqKEc7ArY5YWDoZLHcFY1OKyPwWRLqUBI8HQCoVUXkIDYmqh8AWYXiCZX4YMo8 UNZvTQYeDCVkJYftXTSoSLj8QMZ9SFQhGSMtFU0HWw EkQVBpCXJfYmJuESFtRPHsod2ZYTQcVEQ5KOMqLvVwQOHbWICgQOuaISOrKOa3Lpf9JIPpPOFoAO6GVo HnUWZsDMY9QrOhHOJmKANdxr1YVULsNMU8HdM9BCPaBXMkGGDbRFinLUWmVYx6NvT9BVSeDQYqIW4EWn MvFHJlZYU6KyYxOKBiMAMuen3BWTQmCFC5AhQiPlVr VDPnZHHtGZszVDRuDUd8Ira5LWHxCPSsZX8NFaSqYBGvASG7OlfnUESmFJWopr1KCLXhNEC8YlX6EsEx EZNxNEXcDVsrRJVnLJb2LrI5OKIdNYFuCQ2MMnHnKYZbPOz8UMllJZRhNHCxbr6TEDEwBPY1PiodUZMd FKYrSIEsGSpfCLBlDQt5VLp2ZTGtIDIfIC5BAqJeLB IzWPnuCGEmTFPqMGJnls3HDETjVQS9LODxHOGdFIYhLOYbJWe9yvKuzRAfNNk9LH4FB0RrnnCbJXVtKL rkEk1epOU6IIVlFYULJj6CyuSxUNXzLBCWHFgzLEKsWNUmRNwqKvmcHxKhFQQkXBV2DOInJBZuCne2JX IzTmFuGuW7YoBeL3IpPBTnOfNpJJS1QXMiPXFkPVR5 DCAdUoL7G4B+OU7uQBf+Sv0Ye1GozyX1raJuGMm4GIO8RQ6DKZHQY4QGCx== ID Date Data Source [id number] 02/19/2020 01:15:32 AM EDT [facility] Name Value Range Interpretation Code Description Data Sudha rce(s) Supporting Document(s) ED Provider Note [facility] KUGNFa0dKuDOCbPc18/FWKgfDMWrm7OtFLfgQYj6YRysYSDoD8XfARK7aN2mSYL9GUvNFtZvOzPiLOR2 lbm [file] AgICAgICAgICAgICAgICAgICAgICAgICAgICAgICAgICAgICAgICAgICAgICAgICAgICAgICAgICAgIC AgICAgICAgICAgICAgICAgICAgICAgICAgICAgICAg WOWmMF9JJASnMKDvKVCqNVLyORCsMVEmWTGrUYHbJAMqDOKmQRXxBVXbAZYqQMUzPFDaRPDdNHVxTXGv DTSdNEIxCEDlAVIlGKOaPONqXJTcLGJcNRJzAJNhFRCuZFJrIFEmIGUkADPoVL4NQQAwLPIsMYDmMWAn ICAgICAgICAgICAgICAgICAgICAgICAgICAgICAgIC CpFSVvYXFpIPVlFUOlNEGuSHFvAIZzOBXuHEJyMUUlTLZpHQRqUBFeJUCcWMIoIEBqGPUfKMIfTK7KUW AgICAgICAgICAgICAgICAgICAgICAgICAgICAgICAgICAgICAgICAgICAgICAgICAgICAgICAgICAgIC AgICAgICAgICAgICAgICAgICAgICAgICAgICAgICAg FEYwHEHbPH5BLSZiRBRtUQMnLQVeMSYoBTZcRZGgLLPlUBPnGHBxKEMgNJBdXMNmDJPkKOHeILDlJSEh LREhZEWmLYAoJRCnYFAgMASwUQIyLQShIDBbOBRlXHMpEROdDWJfQEPxEZPrYOIkCL4EAFKmJPRcDADh ICAgICAgICAgICAgICAgICAgICAgICAgICAgICAgIC AgICAgICAgICAgICAgICAgICAgICAgICAgICAgICAgICAgICAgICAgICAgICAgICAgICAgICAgICAgIA 0KICAgICAgICAgICAgICAgICAgICAgICAgICAgICAgICAgICAgICAgICAgICAgICAgICAgICAgICAgIC AgICAgICAgICAgICAgICAgICAgICAgICAgICAgICAg NFXoALXgNQGgMN2BCXEjJBHeLOJuARGnVWUlOALbLZPgWQHsTJFkZFNqZHFzAGQiXGHkYQIcNIDoGCRq JEMkNFGwCVVcQRAwWADaRFHsBQApZAAgINYvCSLdJKDkDGKrPJMqGUAvUQMmJUExUAXrGB3GDMQzUYTd ICAgICAgICAgICAgICAgICAgICAgICAgICAgICAgIC AgICAgICAgICAgICAgICAgICAgICAgICAgICAgICAgICAgICAgICAgICAgICAgICAgICAgICAgICAgIC GaYQ2IFDNzGHIjILTiCEMiJRLaMQDnCDVrQIOgSVGzMORwWGWbWVAkQZRkOISbATVhCXKpQEIrDYKuGM AgICAgICAgICAgICAgICAgICAgICAgICAgICAgICAg SDYmDZLdRJPkKKDgXH6OYL44oQLvt6H7QQYyTF2vucm/Tf5XMYgeaoHqoLTmFB1PJqZpYM3yof3DUcHj LZ8bmp2NFTqOMoBrU8P7hHNyGVGkEWWJNjYrH78gNIlpHw51RVsaZODlEzMbUDv1Sc8VDpPwD4loUCJt UgV9ECXvFwT4HTYqYeH3WPTxAbHjXJSvCXNrPVHuOY VCYFT9CKLnLhNwKoIaTCUwUAceFDBICKQgKURhKbQtZqFkTPFtYeAnSNNSQQB2HOOcCxRpQTXtINGrWp XzOZBPGWFmLTRfXcKzTZIyPDGjIgrqRHWHJA5CTfWlP5YlbX90GBF2XJt+Yd1HUG5zl8ZyNTo9KnKwAZ 5wvy9BHNvIYgOmC5AqnlE3HIT8XWTfRg5LCINbHQBb pLT2CsJnDDIZKiKuI9HczE43PIC4AYl+Rt3RYN4tg2PiUSc6DCWvPA7ysc5CVJaDAvXzA0LugJpbEEAO SVOmh2EaLYTwHQ8fyODdATG8GZLymrmahXMUSIgvsDkcQP2sQFNcBT13IdMfItTvAII1UPLjWA8vFIjx EL1XYHG6UKnkSYBkHIQvR7nRTtWlCZjqBPKtzKclBM 1THeVvA8MoznPfrZB5MmTdESSTWiYlE16qgOYbAChaWEJEKAg+Ls5SEW1xw0RsVHr7CLTmXM6gyj2KNV gHQhZqA8EigBraWLXSJCBry0KeQWErIJ3arTClHKZ2NNUnccxmwTBOEKdxoKnvDO7tMVLcLZ36HyJjMo MpRRM1MKFqAS5mXRbvUE9XTKT0EGliQXXbLABSSJ8M PHeoVSQxZMxgjhPxvWKlGGcsRJ4DFMQuujQxRTbkHXIWQJcsOB4GeaO5SWW0YEWlFu0ATMDmBgH0fVO0 MCAwIFINCj4+BObtsbYnOohIGuWeOCKwc7SnASd3UK3ZJPVrDAv2dTCqHGVbLc04ZKCuXoilO4Asa0lw qxZpQFHDdPEnvVCuSPWAWQD8NZtbXR1xKMLcMAQ8Xl C2JXZTLC2EFHYbDGJhjMVfVLJ3QMIsVuNgAZiuLSKgHDZ2AN14iHjdRI8JEKYuDDRuXO78BVT5DOReGg 2PNFVgZQQcykW6GWVzPQZYFbIyU06ejWOsIgQtFJZOSDn+Sf8CNK3ph2WiKRv7TPObVB5uks8OGVuCEw LcI1QzaEfqDOTJUU0lcHQjWUE5KXPqvd5zwJ5wOJ7t R1QhR7y0XUQPViKlyOV3JqJwPdOaZKVqOpr1PKWPCVgPJeLvW0Cnx7PhDeApTIDcGMXyJ0lVGvGpZJS0 LPLyvCnaUB4HKwSmK8PopsLtlQY9DdSjQGTEGnYeJ9IlOBFvUgGlCXLLVNeqMM1XVIt4IQTjZNLaWw0K Dv1BEpWwNS2zgz0GRkDsWSIsJbiCWvq6BEgsQW0TbB SrOInPKESMc8UlyiNxwYBULXSrhGkcDKPIHSXyKSJlmTbkKx1bMIEpVH60PbHrNwNvNGD9SzXvMW6mEG igRL5QIRO3FFnrSWhcNQHPEM2FUGskQAOcZcFuldLilGHsFFfqBM9QWXDwlpYdZKudZHBTPTtjZE3Vjd P0BWMgFCDcOj1HJIObPtA4vLV2ZcRdANHLXq0+DQpl duHePyqBPvQeUNWvb1IbTOn2FS5EYMRbCPz5wWQwRSFiZi44OZXgPyjbAKDtwbbkDgJYmnrfmnntAk5b OYKvNO75YnSxSyDlOIT8XeJrQR0xMWsmXP5RYBD0JTswUHckJGUHCQ7VHMwgKDWsMUmbisOskWPaIZzt EE5VCVErkmVmTPuyFOANIMilDX5VwwD7DDMhGLGfTy 5KLLMzVaE4oMQ5SGDwYYQNXv4+YYnxsxXmTmsEIaN3IPDqh4QhUSj7XU7DIFInCZu9nPBpQTDlMUToGS tdGJ3okHWjVMW5EKxhjPcoGxAEsMTdBNHXBpKhzXT5SmWiKhXhZJSvXssjQNZKAEfEXtTtV4Kog0NwHj KmADUqYOBvM3qNEiWeDSd6ZS11dPwxYL6IKWHuKCKf VB42KVU2TLZxBe5UUPCqUNKqqyX7NhLnSDNOVzXgM92ouPHdXwTeXCJWNYa+Cn5YWU4vo1WaOXm2JUDz TC6bmf6RZVzCEnGfS1LmjZndYGRCAY4gtGGpBWS0UHFkvAFwQSzcF5Umb2LtNUNAVIK4BLvuIL9fXJFc DLGuYrMyRLSFSZ3JLCAhPVAkoSBgNFVcPXFpKpNwYL ayUMTxJdFsHC26hAqjSZ4KIPQcTQVdPF29MXR0HHStNy4ZWDXoUSImczF7KTMxRPYSSsJiK20sxFExQn YgMCBSDQo+Vy6TES9ew6JjKIx1FwCdVV2try4LNGfFVdNhZ8JsuRecSKQGEFNtj7QjPZVfKX4eaQJgMJ X5WEvzfSZmqiZSqRXskunbRCKaEKMcDY93DwQbLwQl VZF2TKFcIF2jLTncZK7UFDH2LYzbXkSeJKLVXH7SGUcjKMK8ULlpbcPklOKuDQqkLJ7QKBHkwqMyJDas DUHRERauEQ9TlkR2ATN3TGWvOz1AZCJvHlE9lBK2MtTkIDACDp6+ORuqxpWqKspKWkZ6WNAwf5PjQGx6 WZ2JHREeYRx9vHNfROJrIDSfGNwiWI0buEDcEBD3TY L9v3FphFqsOpFNbS43mDrxGYSXICB4VKuoNK1zRPZwFUS0CpJ8RQIPRX3PUFWnMZEcjTXxTUT2VRZjRj JrRMgcFYNzVaF4BA00pYakOS2URUJdXEGzFW67HJM5WWQeAa1TUKXnTJNcowW7BaPeUMRSWoDsK47jiK QgNjggMCBSDQo+Eq4IPF8gd2RqOTd6ICQqIM1znv1Q SDuYMbJkY9NthCqsWPIECU5qvXPmTWY2CAA1j8PmhLqoDsEIhN87lDjyQYWMQFQ8JJrnDL4yONRmOEK4 WlDkQGYGHE8WZZQrSBEbpOEiBKP0GIMxRvQfGTecIZXdSJQhGI11jZugLD9YRIRcFOHcFR66YSA2HHNl Sl5VOOYwBITccoY0OjNcAIKEIdBzY41ioKKbFdetSE BSDQo+Xw3HCT3vl6SwBBe2NQGfTK9vec7LAOzAIqPoG0PaaYqqXLPASR7xaTKdMGE2NDYzseGqHQLvF4 jro9ZikN6nETYKNEV4YTpqWO0gGYAsZYR5TjKyCJSZRT3BGIEbOUXrvNKtENQ7AANrRxGgSPadBMBvTi A5CW90qScyGK0GGPTwJJPpVY11OOR4NPNmHs1HFLJd PZXyskD3ITPbTHKQDrWeA61vqEGsCnMfIXJGGYs+Kt6WTH4ro1WfAFe0EKVoFD1gzi8TSPrPWmAvD0Or cFzeUMVTKRJhbUMiGWZRk9TbaqIdhGYIsMQlsSYrKsIWzYk6aJuwaltfSv3iXRUcZK11SaInQxMwBSR5 WLKvGS6nXEizUZ5WFIU0DFjvTtkdZSOKPI1BRLdeFA K1ZeBknzXqiATjHDvyDO4FMTXlmfDkOXtvRAUSUZpzYZ1DtrA0VMH8AJMaCg3SRRDaIjA5hKJ8BZIjDB INCj4+RExmoyAmOedCSvciFGDdw0BtRCb4BS6PLWGxEHs6sFZiODJrLCYafpjeHYRpZh95CLEiMmdxUJ PbfpVhJJBdNVIsKR6dGNVHBPCwcME6ZtOdAbVoRGQv LPc5FnYMLOnEOpEdF0Ekn7QpHxDnJCBqJCCaJ9dXYpBrSTX1KBKgyBbbQC8WHjOjW7FomtMgoNX6BgCi JKYNMfZkU7StCYThZpPlOUEWTYqjSB5BJBs9ISrmRMOyWl1ARj8BKcExDP7tkd3OKvVgBXQhAfqRBqm2 SMgvVO1XaIKaVSgHLJZEb1JrluSxkSQYvxGummnvIW VkMTYcY8HugsimVLSupUHnT2XlCUJZGGOlawyjsKYyOKH6ZIuzSI3fRFOsXFSbIvY1BQIYQB0QTIQeJR UauQOgOBM7WMGwAhPgXLihJQJpFEm6XB79pEjwHU4YTYAkZNIiMI34HZZ6ZWJsPa7IOVJaRQQnsmC4XV HwOWDBKcVsV15naVIvCtHaAFYRILc+Em5YCN0jv0Io PFk8GeRqGA5weh0RJZqXItYqK3SgeRuoSBRDBDQuuDDsCXXVt0ZsllXhtZDBXHImCwRYZPZhcnM5OEnr Xt2sIVOrDE5rAmXzEfUgKZI3IqabHX2cONlyXM0XOFZ9BAbkTcFiMDXPFR3EXEueVFQ8OGBwaSwzKY4H RxCqQ5PvrjWgbKK5GpZzLPACFfEyY9KmSYDoIkFzLJ BSDQo+Ve6YOJ6wl1RgRRq9NGJzRK0mxm7KSBtDZxTcQ0L2oOZnB6Q5SPmvOw1BJBJgIEWnZYBpLNPTKN gtJA1LCC1sugG5TC2LqGVbVYMaGCObmOAuUVb6H96swLEbJObkQN4WEEY+Dulce+Uy7YFLLlQZBdUZOiJm SaAGSILbDqU4DgH9FJq8WeS2BqKO33xNowsnPpXFma LX5DVE5nQZOxPGJRKT1CmGQumG6omzO5UqRhZSLNHvJsW16geFFeTBWrFBF2QNLdFp1LOMIuH0LkttNd yMdvhxHgLVXrUMGTYE1JWWxrotNcrCOofYczLU71sTdqTX7DLb5RAiCpCI7gah8JyWWkYu8HGUB6AE6F IKLrLNIcAHExHKY3SRGmAtOdTMfgAMKxILRvKSF8NF XdXJSxDF9SQfNjNBKxUnzdNQcgWLSiGODncv8EYRQiRYY4EKK3MTNyYCBeBOMqFQcnSVVpQTCxOXV9RR AzPXOdDW9KYdUtQSTcCFK5MlNkTIJkQFGqnz5WYKGiWPCvMlKcZHZaUCPeSEAeIKemDNFhWSM6NNQfBT VuVEAaHA6FWoLyJJPmMLM6DUhmMYCiPXFadm9WPUDm RQBfIEB2ImIkFSFuXNWxCLwoQJCfRZV6RNSkQOMsLJIzUX5FMkPiRKLgCMV0AbRjTSNfZENgdt5FBNWq APPiWbR4NEWcEADzKKOcJSbyWSNhNOC7OZT7UEFmTWFnVO3STwQlXMArINV2RUVaJZVpKNAjvn3RREQz GKSaIPU5KBLmXOGwOZUeYFajTCYaDJO7Xlr6BJWaAM GhCD9VWzPcOCRfAbHqRXKkZFNaQYNfhc5TLLWvFMFxMLI0LSBlTAPsVOZyVTgaLWAfEAZ6JKD6CHXkQO KxCH8YVfXkBVKnUrP7CiVzQHQkJHYoxy8CKYOyDPAcIGAjEuWpRHCoJJDpBNbfVKXcXGS5HySvHMWdFD VkEN9ZJpAyUVZdQvSkNbFdGVPwYJWbot3KAGVeFRIk OAFtYPOgZJWvVWDuXTdgFRBgLWGfMQMdBYLiTFHkFG3DIhDqZOGsXmNdAFpiMSElQAOhgg7BITXlGMWs YwjsZuJxWUPgZMTrOBbjEKAmUDD3TIP0FLEvWYInJN7HCsUoDVFlBNUyAUZsAHCzFKRbho5ZFHPyKEY2 EYQeZNNgIJTyZUFvCQolRDEuCIVsEWL7RMInEMFjUY 3GNxTdEJThHFFgPeZsKNGgEJWxvw3VYAFkVIY7UZkeKpWfYRGhUJIhFEqoYKCbSFC0TFKcVCTaEKYqZP 6FJaHaXSWjPOaxRNKpLIApIWQycj2VAZBbRHG5NJW4TREcXTQhDXOsVNuaEBWsCMBiWZG3PLYfILPuHW 4IAoElKFRqIRL0QWXnFFBkNKRstz2OXTRbFED3OFWu VKEyLJXoSPZyVUzyFFSxPAIgEis4PAWoJXAuAB9SJsEpNCWkFJB6KCGcGZOyLQWyjh7LYYJgIWT4Hts9 WJGqLAFjDKAhPAlyTDEgERCvJVXdCCNpAKYgCT1TJqGpZYGrCGUxWpHlOUNsNVJrms0GHJUvXMZ0TZN3 LQOsSZJpNUYzFWkoFMJsKFG8VVz1NCRdISDvWS2FDc XnVNLfCKG4WoYcZSFhWLZjst8FBISdGGZ0DqX3QLZvXVJkUJEeVLbxQPNoZPP8WyaxYCStPOQoEX4HNd DhLYQhPdB1PZWrNPFqBQPiwp4EPQVcHHV1XscePTPxIMDjVPVtGDwmMUImCKK5CBN9LYRbIZJdCN7SDm IzJXDnFdc7EDFgGEQbWWJivr7PKBLlNLV3MWY2WBUv UAQcXHPcXXssFPXlTRV4Gei8PVLdAKHhZN3VLtCpLZBwAaa0MILhLUAvBJGkur4TMIEjLYD1BDQ5LVNx QKIjTLYvUIpbZHJrVKuzEhGbXSIjSTJpUL2JSdIjGKMrObQ4ZSUuDQJrIQUlil8JFDNxCOG1NFM1HYFj ZVDrPXOwRKtaWVZrDYfxAVL5JZKiGOKtBB0JHwZrUR RhMxJtLoTeHBIcQVEtue3HNLJeLUT3QEUiYqZxKYFaOQJwZNaiIQFvLRvpWdy2EZBuFICeOC1UAkXoKJ ZnHnD8CaZyTRWfUEEtxv3NMODiDRY5MKdzVJDfUIVxNNGcVXzyJRIeMIbfTWJsONBbGSLgIG1GQePgUC XlQfRjPDFaHMZfWEVsbt6HXGXeKFJ0OzQ5WDVkUCNb DCTrBQvtAVUhEQbfPJW0PLIgYJWbRG4ALdMfWFOuLyN5RTXhTVLjSZJojp4PAIRcFYP1KjuzOKNxGJSy JQZvEDgnNEIuLUxkMTS7QJBzDGEgNC6YWjPjVFOwVoJkPRIpODQrASVozl6CqBOfkCnwku1PVEcFNl4L hJptTGy0GYezEw5roNV9CPJpEYVVKo2NgkBuBIGaWC VGNLffEGByCNEpP2J5CZSiQ9YjHTFuOlmfHZiqZTYkLjX3Gaf8ILnvDkD2GuFsJTcmRIJhDiC6FTU8MI SiPKC8VpTjRONkTjZsFSE+KJ5jTAo+Nl2Eb4EgphC1awFcMGc1IuAiCD7IRMMGK7PKGh== ID Date Data Source [id number] 02/18/2020 11:57:09 PM T [facility] Name Value Range Interpretation Code Description Data Sudha rce(s) Supporting Document(s) Consultation [facility] IVPZCg4dCsTDQhYn10/GTVvkOQQnn3YwWCtbUAl4UBumSBXhW0IvCEZ6aN5fZKK0LEoFJoDbRgCkAIY6 lbm [file] ICAgICAgICAgICAgICAgICAgICAgICAgICAgICAgIC TsGKEbAEEaABTrOGOpBBOxDQWaNSVmHWSwUS9GHBKpSSKyVCJfYDVhYRYqDNNrEAVjWFAcDHSpGIGiYE AgICAgICAgICAgICAgICAgICAgICAgICAgICAgICAgICAgICAgICAgICAgICAgICAgICAgICAgICAgIC QkBZOmDCSsVH1ZOGEpVKHgJECgXZUeWGBuPFQxGFYf ICAgICAgICAgICAgICAgICAgICAgICAgICAgICAgICAgICAgICAgICAgICAgICAgICAgICAgICAgICAg MCNpYIWfJTTxWCWbOZOuOTUaWL0TCTPqOCMkZSAbGOFbWBWgYAXkPNOuPPEiRYDoQCWjLLXjMNYeEUEx ICAgICAgICAgICAgICAgICAgICAgICAgICAgICAgIC EeJXPaHRDwFBKvVWGzWWTfRRRoCVDyCUAaLRIfGY2CGOZwLNQyXPBgDUIpNMNxLVSwRBUmSZPfXSCjGS AgICAgICAgICAgICAgICAgICAgICAgICAgICAgICAgICAgICAgICAgICAgICAgICAgICAgICAgICAgIC GiDQPbLBUiSPIwPN5HGUNmOLNnNWPxDVMzMBXkFYGr ICAgICAgICAgICAgICAgICAgICAgICAgICAgICAgICAgICAgICAgICAgICAgICAgICAgICAgICAgICAg UIKiYEHtTYLjBSGzQMLhKSGhFOXxIZ4TKHKuGQRfNHDoYMEfCUSpHPMyNVBdGNFkBNYeOUKyHUMfYHYt ICAgICAgICAgICAgICAgICAgICAgICAgICAgICAgIC XvSWOcTEJvRMPlPAPmZLLcYKGjMNGzRSZgFPBaNIRlPC3NRNIyNHKeFQNyWGDrZBHmWBRvAQTvAXAzIL AgICAgICAgICAgICAgICAgICAgICAgICAgICAgICAgICAgICAgICAgICAgICAgICAgICAgICAgICAgIC XdHAAhICNkBPBaKILrSD3WTTXnIDSaVOFcRGBuNDHv ICAgICAgICAgICAgICAgICAgICAgICAgICAgICAgICAgICAgICAgICAgICAgICAgICAgICAgICAgICAg XXIqJFMeCAZjVAWqLCBuTJPeSITuAHRzLX3ULRIqAOGmUUGgMOJtADLmKEJvYPTfZYNxZDHgVUMvNCGl ICAgICAgICAgICAgICAgICAgICAgICAgICAgICAgIC UvQHZyOPNeVNXvPGTgDVXjIDTuFVKeEJCjALTcZJHoJGGnHQ1AGB32uBSrt7M1JBKnLU5kiek/Pg0KDQ abpzRjaJQaCP1IZbHuUX9uyj0KCrGiIL5rja6VYLcVWwNqU3B3nVCoAEEqRARUVlFfG14sVJcwRr37VF tbURBeTkAhWOr4Cl4NCmNoP0hfEVWyEhJ4ETVxUmY9 KUXnPmQ1IMKoLcUkKDGoZBCyDHUjYAPUKGG1PJKdSdRgPpCmCIEzXUtrSYECUT3LKpMoM7FhyO76KUiF Cj4+YKnrlaZfRcmKCnQ7MXXle0ZtDEj3CY4RYYSgJwbxr5BiTOvvMCVRCBrvTF7JWFF6JXK5SOOmCx5G MQXgE616spKbMP8FMe3HLlTpNW0nme7IGYaoAAOwEi sCMrb0KCtwKQ6FvXHcRGtYo77omLg0gsGvpXDKaNQgyQGXn6IwJHijFLTUYkPPHKW4EXbbVQ8vOFLzUS H6LjAyRPEKTP5FALNuQKOzxQBeLSCeETBFSL8SFSqiXNL6REKmgsPsxCDyLNpoWI0RQCKxmjUkTHkcEJ BSDQo+Vj3LPD7qd3IhQCm7XOBuWC7fdw0IFScYZbGk U0F2tKBnE8Q3HTneOe9ZTLSwBKQyDGOjZGXWXOfnGI5YNQ6qidQ7OQ4DvRBgZUGsHVFxeAXeGXt5H01j aUBiXRrmAU4UPFI+Dulce+So2HPIDqPUGjEXIzXrLyWDNBZkPdM9ZqU2NEf1FnL5EzQT95vUrqlgYcQTod WP4JZJ7jBBSyDSTORC5EnRGolD3nokI5XjMjCIIVDm WxL45skIPjYUNpCAD2RJUkLp2ILUIpY8ItehQbaAcufdNzARFbDSHKTZ9QWDsxomXzmMEjuJwgZK16uM acCZ6OYz1GKxMsBU0lzt6VdHUpJv5PALD6JS2AWXFlMKIlZTNyRYT5JSJeQsJyHLfmBELgAQVvDCO0AV PmHIHnQH7FDeMcFQOqCYX8HNbdYCMsYEDstj7QKTDa UKP2XJM0BJGjYEItZKWoPOpcWRMtOMAdVFC5TVBcPQQlZY8XXzAtRVMaXWUfIFcoDHHxSNWnzj8IHRGy ICTxFYF1HXHcPSKtLTEqOFkqYJMcHNC6VJP7DZChVDGxXZ2QVfSgTXDdIIdfZPUsJNFyDGOemk9RNMXe GCGaJRo7TJTbHIUyJECoOGyrLYThBPGlAMR8SOUgKY PwDA9KLpSoUZPzBSP6YCIuAKJkCDWzpn9GTWPnZEZeMOq8UbWwRHNrBKRkLLcuUCSkMCR0TkJ3BKXfSK EaNM4AJwBdGWZbLXo7RaTsXIWbYCKoth0KFPIfWMEeVfLxWJGlHQUoWJHpEChvGMBoXBIuWdMcGREjPK WcHT9ETyZgGOAeXzpbUuRkFBKuADEufx1JBGHoDGQp LZS2ZpUuKPHxNAGhTLtwMKXzTKV0LdUdQCPvZIZuAQ3FIzWzXXGiCmi3EskvXIGiRRPzvg1LMDUhSCPh FHjrYUKtZAMyFJSfHSdwMGYfCJZcUKT2KMBeOMWaIY5CRuQtOAWhLiEfJXvwFETtRHSqxi4SPVScIQEe NnU5FASyJHRoKDRwYKwjXDGfOBLpKfaoOJRuNXRmUO 7GJeJuLBVoVsY7JRwfSFWbZYPsez4ZMBFdGRU2Cqk3FfVxGUDpFMQgGVzrHMAxWHP3PbYuUVDcMKNmXI 8XJkNdOCAoXXA0NgSmHYMsAHNctf0KTUIjQTD7MRezQXPoXBVuSTCeVCkeMHCjTFW6NZC6WKYtVWZoMH 3SHnIqWNYuCEJ1KFppWBXjBBLmfc8VCBNjAYD7IQr4 XvMcCFLsIDPhDPqfQUHlWOW2AFQ2LAZzRXYeEX2SWqEzWIEkTNlcFBepNIQrFUOxmd0WAWGrDAL0YeXd NGVuNGPqXLJgJRoqHQCdMZO6LAn6RDJlAWBjOV5YDfAbCPOcAXJsHIUiXQQeZJQceh3TCPRgAPS5DoM1 UrRxZLZwYOAbONpiZVStUDYbSEk4YZMlJMGbWO1GSg TxRPMrUFNdPgUpLIJuBGZxbk2KEMImWWD9WcS9AeUpCFEdDWQjFRcsIMYrZZEeDEi9DTJfJEZkNN3HZw CvLKRlAFY1JsapGTQgNMUbjv1JRFEbNYU2Pzt6UHOxGWPpNTEvRTskTDYyYNT9UdRnQTVoOQYjCT9SDv DfVOGqFHC6EfXwLKZlZAOyby7RLLMcRBH5JGb2AnYt SFMyYXPiGSctEYWiJTE9ITN3OSCxICFoFI9RKbBtPOxqRFQSWqx3SKvfR6c2IJD9BQ6SD2Btl2NzPXvz LCCDKJexTY0yhiYlPDBhSz2LS0yFSggpQUMuJFBhYAZ0HrasWJMdTsFmJOZuTxF6QoMvTPC4YK3jANK2 TwV2ETZ4XJurARJcWQItHZI6WrM8JnLsVCL9KOr3De VsWZ8SQc9NNcL5UPA3sCWuNw0ZEPJmQCYCAcMmGZ1ZYNm= ID Date Data Source [id number] 02/18/2020 06:59:08 PM EDT [facility] Name Value Range Interpretation Code Description Data Sudha rce(s) Supporting Document(s) Color of Urine [facility] Clarity of Urine [facility] Specific gravity of Urine by Refractometry automated 1.027 1.003 -1.030 [facility] pH of Urine by Automated test strip 5.0 5.0-8.0 [facility] Protein [Mass/volume] in Urine by Automated test strip 30 mg/dL Neg [facility] Glucose [Mass/volume] in Urine by Automated test strip Neg [facility] Ketones [Mass/volume] in Urine by Automated test strip 20 mg/dL Neg [facility] Bilirubin.total [Presence] in Urine by Automated test strip Negative [facility] Hemoglobin [Presence] in [facility]ukocyte esterase [Presence] in Urine by Automated test strip Negative [facility] Nitrite [Presence] in Urine by Automated test strip [facility] Leukocytes [#/area] in Urine sediment by Automated count 13 /HPF 0 -5 H [facility] Erythrocytes [#/area] in Urine sediment by Automated count 34 /HPF 0-3 H [facility] Epithelial cells.squamous [#/area] in Urine sediment by Auto mated count 5 /HPF None [facility] Mucus [#/area] in Urine sediment by Microscopy low power field None [facility] Crystals.amorphous [#/area] in Urine sediment by Microscopy high power field None [facility] ID Date Data Source [id number] 02/18/2020 06:59:51 PM [facility] Name Value Range Interpretation Code Description Data Sudha rce(s) Supporting Document(s) Choriogonadotropin ( test) [Presence] in Urine [facility] NEGATIVE: either no HCG or too low to de tect, <20 mU/mL Specific gravity of Urine by Refractometry 1.027 1.003-1.030 [facility] ID Date Data Source [id number] 02/18/2020 07:19:38 PM [facility] Name Value Range Interpretation Code Description Data Sudha rce(s) Supporting Document(s) Amphetamine [Presence] in Urine by Screen method Negative [facility] Benzodiazepines [Presence] in Urine [facility] Cannabinoids [Presence] in Urine by Screen method Negative [facility] Benzoylecgonine [Presence] in Urine by Screen method [facility] Methadone [Presence] in Urine by Screen method Negative [facility] Opiates [Presence] in Urine by Screen method Negative [facility] Oxycodone [Presence] in Urine by Screen method Negative [facility] Fentanyl+Norfentanyl [Presence] in Urine by Screen method Negative [facility] Service comment [facility] Results below the indicated cutoff (ng/m L), are reported as"Negative." Note: for medical purposes only; not valid for legalor employment testing. ID Date Data Source [id number] 02/18/2020 07:03:19 PM [facility] Name Value Range Interpretation Code Description Data Sudha rce(s) Supporting Document(s) Leukocytes [#/volume] in Blood by Automated count 10.2 10*3/uL 4-10 H [facility] Erythrocytes [#/volume] in Blood by Automated count 4.22 10*6/uL 4.1- 5.3 [facility] Hemoglobin [Mass/volume] in Blood 13.2 g/dL 11.5-15.5 [facility] Hematocrit [Volume Fraction] of Blood by Automated count 37.7 % 3 6-45 [facility] Erythrocyte mean corpuscular volume [Entitic volume] by Auto mated count 89.2 fL 80-96 [facility] Erythrocyte mean corpuscular hemoglobin [Entitic mass] by Automated count 31.2 pg 27-33 [facility] Erythrocyte mean corpuscular hemoglobin concentration [Mass/volume] by Automated count 34.9 g/dL [facility].0[facility] width [Ratio] by Automated count 12.7 % 11.5-14.5 [facility] Platelets [#/volume] in Blood by Automated count 267 10*3/uL 150-400 [facility] Differential cell count method - Blood [facility] Neutrophils/100 leukocytes in Blood by Automated count 66 % [facility] Lymphocytes/100 leukocytes in Blood by Automated count 27 % [facility] Monocytes/100 leukocytes in Blood by Automated count 6 % [facility] Eosinophils/100 leukocytes in Blood by Automated count 1 % [facility] Basophils/100 leukocytes in Blood by Automated count 0 % [facility] Neutrophils [#/volume] in Blood by Automated count 6.75 10*3/uL 1.8-7 .0 [facility] Lymphocytes [#/volume] in Blood by Automated count 2.75 10*3/uL 1.2-4 .0 [facility] Monocytes [#/volume] in Blood by Automated count 0.64 10*3/uL 0-0.8 [facility] Eosinophils [#/volume] in Blood by Automated count 0.05 10*3/uL 0-0.5 [facility] Basophils [#/volume] in Blood by Automated count 0.04 10*3/uL 0-0.2 [facility] Nucleated erythrocytes/100 leukocytes [Ratio] in Blood by Automated count 0 /100{WBCs} 0-0 [facility] ID Date Data Source [id number] 02/18/2020 07:27:29 PM [facility] Name Value Range Interpretation Code Description Data Sudha rce(s) Supporting Document(s) Acetaminophen [Mass/volume] in Serum or Plasma 10.0-30.0 L [facility] ID Date Data Source [id number] 02/18/2020 07:27:29 PM [facility] Value Range Interpretation Code Description Data Sudha rce(s) Supporting Document(s) Ethanol [Mass/volume] in Serum or Plasma Negative [facility] ID Date Data Source [id number] 02/18/2020 07:27:29 PM [facility] Value Range Interpretation Code Description Data Sudha rce(s) Supporting Document(s) Bicarbonate [Moles/volume] in Serum 23 mmol/L 22-29 [facility] Chloride [Moles/volume] in Serum or Plasma 101 mmol/L 98-107 [facility] Creatinine [Mass/volume] in Serum or Plasma 0.49 mg/dL 0.50-0.90 L [facility] Glucose [Mass/volume] in Serum or Plasma 88 mg/dL 70-140 [facility] Potassium [Moles/volume] in Serum or Plasma 4.4 mmol/L 3.4-5.1 [facility] Sodium [Moles/volume] in Serum or Plasma 136 mmol/L 136-145 [facility] Urea nitrogen [Mass/volume] in Serum or Plasma 11 mg/dL 6-20 [facility] Anion gap 3 in Serum or Plasma 12 mmol/L 8-15 [facility] Osmolality of Serum or Plasma by calculation 281 mosm/kg 275-300 [facility] Creatinine/Urea nitrogen [Mass Ratio] in Serum or Plasma 22 [facility] Calcium [Mass/volume] in Serum or Plasma 8.9 mg/dL 8.6-10.0 [facility] Glomerular filtration rate/1.73 sq M pre dicted among non-blacks [Volume Rate/Area] in Serum or Plasma by Creatinine-based formula (MDRD) >6 0 [facility] Glomerular filtration rate/1.73 sq M pre dicted among blacks [Volume Rate/Area] in Serum or Plasma by Creatinine-based formula (MDRD) >60 [facility] ID Date Data Source [id number] 02/18/2020 07:27:29 PM EDT [facility] Value Range Interpretation Code Description Data Sudha rce(s) Supporting Document(s) Salicylates [Mass/volume] in Serum or Plasma 3.0-30.0 L [facility] ID Date Data Source [id number] 02/18/2020 07:27:29 PM EDT [facility] Value Range Interpretation Code Description Data Sudha rce(s) Supporting Document(s) Thyrotropin [Units/volume] in Serum or Plasma 2.420 u[IU]/mL 0.270-4. 200 [facility] ID Date Data Source [id number] 02/18/2020 10:45:03 AM EDT [facility] Value Range Interpretation Code Description Data Sudha rce(s) Supporting Document(s) ED Provider Note [facility] DSINMm5dQxTXQdOy45/JSWcbFVFps6HwFHdgQGd5MFlvVOGrV3RcEFJ2qV9sUYZ3AWpHDsSaCaGxXZW2 lbm [file] SKZgDCLqsABaGZc1K37buAHzTSciBM2UUZL+Dulce+Qc6WOVHjKCWhSHEqXqXxCBCEMnYaM8WsF6LQv9Jl H3VjDN28mHsvusJvHCtfUG5PBY8fSHDqILHBFT8ReNVshR7inrA5WbSzAMJDUuOrZ05vdXPqYNYtBHU1 NNMdEb5AUAKiH0VpddXdlKkwezMkOKOgPESTOW0GGY eihiPmxFLssParAO10fOjwXF5GUn6NLaDxNF0mnj3TxKGwXw3ANRC3JZ2QXPNaYIWaFKZiMJI1QJHqQd EoPBumONFbMQMoHQV1HNLnGYXkRR6HFeAuYRUxMVSuZLZpBZSjCAClll2IAHOoVGX2BKOaKTLcJMRxRN SsBMjoPOWrDONuCJO5ZHElNVTnUX9FViZhNRHdZZPf CJPjITUxDOMeoz6WPUBrHOOcGgTiLOFtPNQqZRAhBEwnYRHrUDV5TfD0XIGyFKWtKW0FXjEpPERbFJC4 VxnyUUAvHRSsim0GYXSyAQWwQEb8OGFwJPEmGXYnJAlbUPMzINJ4FXS2EWXsWOGrOH8MXbMiBMAcWNC0 WfFhVRIkIUMrdj8MLEZuAIZzZZHqDsHwIHQeNZFjCA qiSBGeFTObAKO6LRJeASRtDZ5ZDdAwYCDdAKSaDqLpNPQxIBZlih6YRTDuDIQcYmS4UrJkTKHsKEFzDK qcPTKuLME9PVQeQEYyFEQpWP4LLtZmBVXmRuS6UlOmSMZfKMKycc2DESMmLQQoWVYlHJQlHJBrUBTzXH nyJQDqYKIhFLI5TOFrCVTfSD0GCuQjSXVyGiTsPlOw IEHrEFQank1JBIUaJGArRhJ0YUQsTDWpBKMsXGdzUOThTCR5WAN7RXHgCXJsTH0DCjOxLECmRnp5BNGi ZTGsYTMlwo7CWOOrJVLvTPcsKKOgETVnKYDhILkxQYVlDDFpSFBlNHLiCBZhDE0UEgWwANShQnYpHrfj PZWsBFTkte2MEGMrRJXlZDH1XWKgKPOzLECyGNngCX DbEPG0OqH3WFTnBXYeXT7KFsAvMURpKoM2EwGaZADpNSRcjm4ETNUkWDZeXOjwBgKmZRJpXHNgPSapSK KkVRW8SZX3NBFiUCGkUN8LYaLpYSOfRtdrTgZvQLSvPICnox7MJQOuVRDgXtO6LfMwFMDzVEIrVQfvRA MdWPR0QLY3KQZhQVQoOD2TIiFbSLRkWNf3GWGvGPGf SZWjzl6FSJSdXZV2BTB4NJJtOPCzLZAfZCqbZXDmQHU9NtO2KSJwHYRuWH3JTjFsUVTmMAa0QSKvAAEn SDSisg1ZKUOuFBE2QQy2RwIbEIYuVOGrLDfiVZYyNILhVcb2GMRgSIGrRX2ZFdLhMBVqZHN0MGFsCQLw YBQqli7ZTNJiABH8PAJ3KbSmJAFhMGAqKXqeHQUqHI NrPKS5WTExMOIeCL7TBgTyBQStYHZrEQarPTRpOQLxmv7YBQWyJQU5SxJ9XYDjPEMiBWUeCNcyNWKbUB VqEdvmBJBmNEKsWY2DScJgBZTsKTAzYHHtHELbEEOlso7EBTEhNUK7JGM6QeBnTIVnVBEaEJrjAYXrFD F0IVNqTQZiZBMhAJ5JXvVuFUPfYIF9PdQdZWChVIWb dw2GGUQdCJN8ZPqkBrJbNMCdFMZjRAixMZWaYHP4XQj3LNEcHGInER6UHjUuKFYiITLnMkJoMCOnLOSy bs0VPSObUHY1YNW6CfSfSRRmOFFvYHkwWMNnSXJ5EdTtCIUcGKAcYO5QNxBwUEIxWDL4NtanTPLeWPUf zz3UMRNfPJW2IPa8DLTfMLIyQNTaZFw2yrKnhZSyRF o5UO5HI6JkkqFsUJvXZe5Ji812VZR5XURtXr7RB3vbCu4lTGZnYIJXWq9BDPk3X7AvUAGySsXxBMA5LD h3TNBrB4G6LAYsLxIjKpV7ErS+JUjpJZKtKgZoFCT2DtRuGDoqXAXxPACgVfZpPKRdEgRqUI6yBWYDMp 4+JRutrTOgwTjcYEARQaQ7IvC7FGwpHUUSJt2J ID Date Data Source [id number] [facility] Interpretation Code Description Data Sudha rce(s) Supporting Document(s) Glucose [Mass/volume] in Capillary blood by Glucometer 114 mg/dL 70- 140 [facility] ID Date Data Source [id number] 02/17/2020 04:34:14 PM EDT [facility] Name Value Range Interpretation Code Description Data Sudha rce(s) Supporting Document(s) Consultation [facility] WFMCZt9cRnQVFbSa30/YFNydLBJxo6AzKZgpUGn2EDwjOKXbY4VnEMV2lN8uBME7XNuRYpUwXjWvPUF3 lbm [file] AgICAgICAgICAgICAgICAgICAgICAgICAgICAgICAgICAgICAgICAgICAgICAgICAgICAgICAgICAgIC AgICAgICAgICAgICAgICAgICAgDQogICAgICAgICAg ICAgICAgICAgICAgICAgICAgICAgICAgICAgICAgICAgICAgICAgICAgICAgICAgICAgICAgICAgICAg ICAgICAgICAgICAgICAgICAgICAgICAgICAgICAgDQogICAgICAgICAgICAgICAgICAgICAgICAgICAg ICAgICAgICAgICAgICAgICAgICAgICAgICAgICAgIC AgICAgICAgICAgICAgICAgICAgICAgICAgICAgICAgICAgICAgICAgDQogICAgICAgICAgICAgICAgIC AgICAgICAgICAgICAgICAgICAgICAgICAgICAgICAgICAgICAgICAgICAgICAgICAgICAgICAgICAgIC AgICAgICAgICAgICAgICAgICAgICAgDQogICAgICAg ICAgICAgICAgICAgICAgICAgICAgICAgICAgICAgICAgICAgICAgICAgICAgICAgICAgICAgICAgICAg ICAgICAgICAgICAgICAgICAgICAgICAgICAgICAgICAgDQogICAgICAgICAgICAgICAgICAgICAgICAg ICAgICAgICAgICAgICAgICAgICAgICAgICAgICAgIC AgICAgICAgICAgICAgICAgICAgICAgICAgICAgICAgICAgICAgICAgICAgDQogICAgICAgICAgICAgIC AgICAgICAgICAgICAgICAgICAgICAgICAgICAgICAgICAgICAgICAgICAgICAgICAgICAgICAgICAgIC AgICAgICAgICAgICAgICAgICAgICAgICAgDQogICAg ICAgICAgICAgICAgICAgICAgICAgICAgICAgICAgICAgICAgICAgICAgICAgICAgICAgICAgICAgICAg ICAgICAgICAgICAgICAgICAgICAgICAgICAgICAgICAgICAgDQogICAgICAgICAgICAgICAgICAgICAg ICAgICAgICAgICAgICAgICAgICAgICAgICAgICAgIC AgICAgICAgICAgICAgICAgICAgICAgICAgICAgICAgICAgICAgICAgICAgICAgDQogICAgICAgICAgIC AgICAgICAgICAgICAgICAgICAgICAgICAgICAgICAgICAgICAgICAgICAgICAgICAgICAgICAgICAgIC AgICAgICAgICAgICAgICAgICAgICAgICAgICAgDQo8 D9bfHXSeSCNaHL4xHKp6Cm4+JQiKDtKuBIY0ljQrqS9PDY5oe9CaTJkfSCMxb9EpDCj9XR0HTDLdMJco IN8VZNcnul6DWDPfHTYroMXZh1hfRlCdXIM8FLVoThwbTX5XPOHmQ7muinVaBWXtSLJRIKvvBWSCEAqu UOJQAUBaDTBaPdEiYqIrBOJwCIGgVPRDNCB6GTMgGr TuMLScDBAjXN6VXGKcB975qoVuGY7SRx2IJbIgSH9duv9LFQQbTBZyQoeTDky8OCcyTI7MaFGuhGY2KT WlBPWRRbZwD9vtr2RqYHIpGTJFIOajUH2Nx8TuhXYbIEj+Lc2MFY7sj7DuDOx0OJWjBT0ywc9PRGcABr ZoI9XrwJjkXEEpfkD1bTUyXRV2UIAaofjcdB5xaFRy UKycQIWxyDRomZleGD7aVJCxAV34SqZsLcHtRPD0BUzbCK9rOYycZZ1VADW4TSscGEPdEIZtP7bQQaNr EHBkLaOmbWquHV4GOqLxK7RfjvJiaSY8YCBnXKDRLv7+JGfwkmKbRgjZKtTsXUUgd5NkVCp0VJ7RKVPp KRrqWV7YZPZfnK4kIWqwEV2YSlZ9MJGuERZSMjWtJ9 8ehFJjQIc1H0TnXxJnOVXqRdudTZZzQLfhEyQiWKLvCoChNGwsFY5+ID4+YXjeYC3AXLdjxwRjMUQsUp 0HJRJiZJVmSI7wUXGkOUPzU4A9yOsbFKTOYtSpB7onllbeCL2sNTHeG966iDwcumHlGIJzCSVrOe5VUN QoZIY8FAOzdPDdUPqnKXUNWSmjIN4JsDJtHYM7kY3c PThsJGUuDJKcK6oUCvNvjNvvJN00mVwftrDxsLNhIXt+Db1BOZ6dj1RdUWm4diHtOQwtKWCnEBfvNUOh JNYxUMLfHYI9AXR3FSJFNnWzIGOaYBQdILkcVVVeXSXxyi9SDHGiHEY9YrDkSDYmYKIkSZNmUYfiRTSe HPL5QfH0TYTuQSPhWZ4PElVoXMZeGZDlDJeiQBUjSV Wzwd5JSIZzHBPeGNI4KSOrLUGmKNUpAVjlEEGsHHI9VcA1ODFaGFJbPK1YIwCtJDJwFQt9UkMvMZErUF Dexo3BNKMgPXBySoQ3LVMrZDPyVJQvEDkySYRwIOMfWJY6DDAxUERmDV3LXxOiVGToNJDsWCcuJQEhUE Fcuy1NPIRuXVFcVMDgQnEpYRGiHEYlFJcyWVZbLHT8 PEP7BQAeGYExVE8OEgPjKVImXYz5UFLoNEEcESXzho5NGGCrHWBgNMz2RBQaHAFhOGAhOTtvCRPbJLTo Ztn7QTKsKBRiQQ7DWsKkVILgZrD5PHBtCRSiSKMzrq0HZKGyRDRjEvM7OdPrKBFjRHAuOTtjRFPeMAZ3 Lsg5KYIyDPLdZY8SFmWtHRKvWdR7KAWwUFWkGOHxxb 9WOAThIVCfKLN5EQYkNLIeUQNfOWpkQXElDVItRMOtXTMnBHNcBJ8HFzMxQHRaTcOeZXmuKIPeSZKcjm 5MFGHdIMTgSvQ0FBObUZQxQDAjTQtcQGSdNRXpScQ1CRPrTKLuJV9JDcMsWMAoXbM1SKGtYCRkPJXygq 0PTIIhOXBpBoayNPFoDBMiLRVkCGmpWZCdOHO8Vxf8 VSMpEMMxTN2GZuGfYZQeFvJ4UXQzROWtLBZsav5YDVJdBTEnWCO5EHWzXXNkMWTlBNmdJEEsXLA8VWD3 ILVtWKOzVC4YMfIoHJYgBYQ4AGZrVWMjXAPoca0NCGSkTKZ0Whj4MDFyXBBmOVJkXXtrFKMjZME0ToNm AQDkRUKaTP8FUwXxXWMjYPleGjKzEFGaBCSpwr1RNL OwLON4HQOpQAQqPWQlHJZbGPpqJCBpWDT4HJB8QJSqNHBvFK3ZFeAdMFMjNJn9GCPbWTOnDGQyzd8UIL OjPCW8KVYnGFReVHBnTYQkBCqoXZJxIJW3ZYWhMTSdYRYpHQ8CYnUwJJEaGHEhPWGyDCErWGFirt6JJR EjOOD7ZOo1PQMeTRGsMILzUAwaWULuTQK5DThhCBTy HVViZU9JMvYtJFHfPAG6OGNnXKWpBQIzgx8BPWWyTBU8IOH8LIObJDRyNKYqLDuwMUWkKMZ7Zsy5XIZp OVUjDJ3POgUnXUGuUFXrMRmfUFXgNRRhia5BZHXqYFE1NdN9EEZfDYNmUAIrHMecJZGcNCK2Jgz3RQHq NUHlVA6BQpCqPTLzHKF3VcdjNDAuUZTygn4YJFTpQH L2SJY1QaCbVEXgKIOdEXvcQJUpGYY7QBQtOCEcSHBqHT3NTmUaSGHzZTx3CUGnJCSkAWTvqu9HzDRneS rjmo1ZYOvUUy4BxPzaIMRfEAskXp8neOU1VtDnMNWTLz1KtiIyZNOqNMTDDFxlRXXiCRf4ZZFtJRT8TT NnXZEbNtj2TEIxYSgeUyCyDrEdFCSsPuS3XPZ4KzI1 PaV9SqCjWUAqVGs5IFB9A5JaVtWtAkFdGDF+JO2rDUx+Pc1Bh0HhsmD0evNtPTx7XSpaBc0VYYFSS8QN Cg== ID Date Data Source [id number] 02/17/2020 12:30:14 PM EDT [facility] Name Value Range Interpretation Code Description Data Sudha rce(s) Supporting Document(s) Discharge Summary [facility] HJIYZt7cSgQSQoVb60/LZSlePKSss2IjZJwpUUl2JNlfLNSlQ0LhHRH8nP3uKRU2YPoYGsFgUtWiCUM6 lbm JaHfjJDzJpMEDzQtmKZdJgWWgdGaaguSEbRG2IcFJ3EBJxA42lHKWaMIMnG3UjWXR1Oiq+Pf0KARLyiY GrJM6UIjrJ4Qjri9l6Sf7+oS8LDEo6hyhZSl49AW2wwKc0w3Vg0n3iJbCSzVJIj8abzKSnRr/2f7EO3l OLFTLxtfKkypio0KSnBm2FD9HPiy/6Lbgv99tkti7w fg0lI+Mp+tozcDzgI7bkw85TCxSYhZPX2ybtA7bhQmu1TnctMyF1I5QhDOfSnzFFGgxKSON9yKi/fC6K 7QL1dRhgMo3S7KZpxBq4CEYBJniHmu9+JKP/rwFAhCsns7cMzEmk8/i5GM26x3jiVqnTTyopJThWAGeJ zxw9BoKh319JoquBGj7m4KVQC7q+AuZ7zeUhTkkc70 /th3ELGBS9Q8kDK5aXXFzpS1/6FOCFwVj7TvJ8S4zBBl7k0/ZhEequ8X3Hw8A/jdQ30IWRvl4cNr/INDU [file] wZwqQDDQFsSlCxM5TWdtJNKYVl6A ID Date Data Source [id number] 02/17/2020 10:49:00 [place] [address] HEALTH INFORMATION MANAGEMENT ED/UC Physician Report : [id number] Signed Patient: Amy Carranza Acct:[id number] Unit : [id number] : 1995 Arrival Date: 02/17/20 Age/Sex: 25 / F Arrival Time: 1016 Copies to: Harriet Marie DO General Adult HPI/ROS General Chief Complaint: Physical Examination Stated Complaint: Confused Stated Complaint: Confused Source: Patient and I have reviewed available Ancillary/nursing staff documentation Mode of arrival: EMS Limitations: Reports No limitations History of Present Illness Initial Comments: patient reports that she was at [facility] and started to feel dizzy. A [...] rce(s) Supporting Document(s) ID Date Data Source [id number] 02/17/2020 07:35:00 AM EDT [facility] Run: 02/18/20 0914 INTERFACED REPORT Name: GangaAmy M Age/Sex: 25/F Location: ED Acct: [id number] Unit: [id number] Status: DEP ER Room/Bed: Re02/17/20 Disch: Att Dr: Radu Pabon MD Specimen #: [id number] Ordered : 02/17/2010/02/734 Collected : 02/17/2010/03/715 By: JOHN Received: 02/17/2010/03/719 By: ROCIO Source: URINE CC Specimen Description: Procedure Result - COLONY COUNT Final COLONY COUNT GREATER THAN 100,000 CFU/ML URINE CULTURE Final PRESENCE OF 3 OR MORE ORGANISMS-SPECIMEN MAY BE CONTAMINATED SUGGEST REPEAT END OF REPORT Name Value Range Interpretation Code Description Data Sudha rce(s) Supporting Document(s) COLOR,UR YELLOW YELLOW [facility] APPEARANCE,UR CLOUDY CLEAR A [facility] PH,UR 7.0 5.0-8.0 [facility] SPECIFIC GRAVITY,UR 1.000 1.002-1.035 L [facility] PROTEIN,UR NEGATIVE MG/DL NEGATIVE [facility] GLUCOSE, UR NEGATIVE MG/DL NEGATIVE [facility] KETONES,UR NEGATIVE MG/DL NEGATIVE [facility] OCCULT BLOOD,UR LARGE NEGATIVE A [facility] NITRATE,UR NEGATIVE NEGATIVE [facility] LEUKOCYTE ESTERASE ,UR LARGE NEGATIVE A [facility] BILIRUBIN,UR NEGATIVE NEGATIVE [facility] UROBILINOGEN,UR 0.2-1.0 EU MG/DL NEG-0-1.0 [facility] RBC,UR 3-9 PER HPF 0-2 A [facility] WBC,UR 5-9 PER HPF <5 A [facility] URINE EPITH RARE PER/LPF FEW-MOD [facility] BACTERIA,UR MODERATE PER HPF NONE A [facility] MUCUS,UR RARE PER HPF NONE SEEN [facility] ID Date Data Source [id number] 02/18/2020 09:14:00 AM EDT [facility]: 02/18/20 0914 INTERFACED REPORT Name: Amy Carranza Age/Sex: 25/F Location: ED Acct: [id number] Unit: [id number] Status: DEP ER Room/Bed: Re02/17/20 Disch: Att Dr: Radu Pabon MD Specimen #: [id number] Ordered : 02/17/2010/02/734 Collected : 02/17/2010/03/715 By: JOHN Received: 02/17/2010/03/719 By: ROCIO Source: URINE CC Specimen Description: Procedure Result - COLONY COUNT Final COLONY COUNT GREATER THAN 100,000 CFU/ML URINE CULTURE Final PRESENCE OF 3 OR MORE ORGANISMS-SPECIMEN MAY BE CONTAMINATED SUGGEST REPEAT END OF REPORT Name Value Range Interpretation Code Description Data Sudha rce(s) Supporting Document(s) ID Date Data Source [id number] 02/17/2020 07:32:00 AM EDT [facility] Name Value Range Interpretation Code Description Data Sudha rce(s) Supporting Document(s) HCG QUALITATIVE SPECIMEN URINE [facility] ID Date Data Source [id number] 02/17/2020 07:32:00 AM EDT [facility] Name Value Range Interpretation Code Description Data Sudha rce(s) Supporting Document(s) [facility]CG RESULT,U [facility] Reference range is Negative To ensure best sensitivity, first morning void is recommended. Dilute, low specific gravity urine may give a falsely negative result. If is suspected, repeat testing with a new specimen 48-72 hours later. ID Date Data Source [id number] 02/17/2020 05:30:00 AM EDT [address] [address] HEALTH INFORMATION MANAGEMENT ED/ Physician Report : [id number] Signed with Josh Patient: Amy Carranza Acct:[id number] Unit : [id number] : 1995 Arrival Date: 02/17/20 Age/Sex: 25 [...] nausea vomiting. Patient was just discharged from [facility] for suicidal ideation. She stated her symptoms [...] was signed out to me by Dr. Pabon to follow- upon urinalysis. Patient has positive [...] rce(s) Supporting Document(s) ID Date Data Source [id number] 02/17/2020 04:39:55 AM EDT [facility] Name Value Range Interpretation Code Description Data Sudha rce(s) Supporting Document(s) Consultation [facility] NDUPJx1vKhOROdTs57/HTBosXQXyw0MvJTcoVSs1QZpvOJYaK7RlNBC1eN4eMGV9KQjZYaBgVqHyMJE8 lbm [file] AgICAgICAgICAgICAgICAgICAgICAgICAgICAgICAgICAgICAgICAgICAgICAgICAgICAgICAgICAgIC YoHJWmALLsPD3FADHmNZJqQFZrLTExZONmTREaCDEe ICAgICAgICAgICAgICAgICAgICAgICAgICAgICAgICAgICAgICAgICAgICAgICAgICAgICAgICAgICAg OPUwIJLuRPSaKGPqYAKhQDVvZA6MSHOgMGAqHLYiDWLyFJVuWOUqGJFiNDZxWEDyICCzJSAlHNWxJIMk ICAgICAgICAgICAgICAgICAgICAgICAgICAgICAgIC GvFSKnDTBrRKLkKGEfOGQfZGIbEOYcYGJuDWHbQZ5JFYJePHWjDHAdDDNeUDHfWLPmOJPlZOMdTTDtCP AgICAgICAgICAgICAgICAgICAgICAgICAgICAgICAgICAgICAgICAgICAgICAgICAgICAgICAgICAgIC MbWUZiXTCwJARsXT5VXJYfNMBqSMLfNACeGCHbJXWm ICAgICAgICAgICAgICAgICAgICAgICAgICAgICAgICAgICAgICAgICAgICAgICAgICAgICAgICAgICAg ZOLbFVTaRNOtQDUjFVYrVOMpXDEaUS0SQRNbJCQpVOOlKDNlWSXnFWFjZFQfOREiWTMiJPNlOFVeSYZx ICAgICAgICAgICAgICAgICAgICAgICAgICAgICAgIC LoZLEcNIHcJNUhPXSjECFrLFGvBPKySJArIADxZZLeOQ9SNZWkTBLzQRXpZYYdZDXxOGKnUZGcAJRnPN AgICAgICAgICAgICAgICAgICAgICAgICAgICAgICAgICAgICAgICAgICAgICAgICAgICAgICAgICAgIC RlRNXjVYCdSVMdZQNtWC5FNGJtQAGuXWYcZJVeQLHq ICAgICAgICAgICAgICAgICAgICAgICAgICAgICAgICAgICAgICAgICAgICAgICAgICAgICAgICAgICAg ECMkBQCwKWOwDMFqRGFrWTVcUQLhLEFuSU4FXSFqPTGlJVIzRIEeHXGsGMFlDVNtRCIxWAMzFDBsNDBe ICAgICAgICAgICAgICAgICAgICAgICAgICAgICAgIC QtMVSsZGLzSJQlOLGfERIrJVRpOAUfCMPyONDlEAYiUSBgLZ5KBLQiWOIvGUGaTWPnPZUuETRkBLXzBA AgICAgICAgICAgICAgICAgICAgICAgICAgICAgICAgICAgICAgICAgICAgICAgICAgICAgICAgICAgIC TpMNGqARVvHKTrKDQgRHTkSD8JEV04aRDbc7L4JOSo FC6idpa/Zk6VMIakieRmlCMbSJ6WTdJqVO4bik7SKnCfQT7uvl5QYCtBVrFhK4A9sRXgPTGkOFHCDwBe K68dAZrvHe45QDqxWHZaKdQqUTa9Dp4XGcRzT3lrLLLhXsM2EOAaSxU3VUSsLgUeENniAY2Wc1IssNOv DQo+Ef9WEQ9zy8HsGBttBzXvOO4qnl3ANLaEGuIsL1 SgoyX0KPP2QPCpVy2HKOHpLZMeuANoOmHjKBHUCfBzH5HbwS88OZTEUl2+YDitocMtDziUHnO0ASTie0 CkRJa1LE6LUIVwOKm0nEImR37rc8CmnDRbWewrP0knayltr8ToJNAOjLW1iHWhTIDSUEPAYQB1XPxnYR 7oCFAvFFKaRrBkVLEWEU6UGXXyDLIxoPJgHWYtZRZM YP7EMWlxPQD0MMKzbuVbeMLiARkiGI2WANIurmQdLLQmNMEYMFn+Yl9FNW9yt6HiJJesZYZkQN5dwc8Q ELdMReIwX9U5uBDzL6U2HLcrEi7GMQKrZFRaZOBbPCOSZUhaKU0WCR6wbqC7DK8AuGLzRHHeTDTlfYDt TMp5S83asMIyJVnaQB5DGHL+Dulce+Ac0BFRLnSGCmNZ FbYrJhMQWWBgDaK9LsG1BPf3KqG9RhCC61gTeuyoUoMQdxVI1ETC2uSZEeOXMMFU7UzKEnkU6dopRbEa QrYSAGIjTtH59cuIEzRIZyPLW6JSLmJn5FBCWiK9WejkTqjYmqhmFpLYRmZAYLKP2WITgtekKlyINalD cbVA89aRbnPX6ZWn2OGuMyIK5wmo8MpEZgCv9SLLUr SW6LILHkXHVsPFSdVBB5GLDaGaCxSEnjIOCoDPYaBOR7ALGiMQLtUN7HLzGyHZFrPMspASIvWFBbSWIy pv0ZZNLeAJBaUCkrIkIqXPSnUUTiDCsuEQKiUCLdVEU8ARTtWOWrDM8XWwCmCLAvVCQ5AalmHIRgFCXi jq2CAAJrYTAqWxW5LSEnGSGxTYNzWHhyXYKoPYW7KW jeZVFbMBDnOE3FMlFdDZVjQGNhRTqpSTUcLEJcku3POIXjCDKjQOH3UiUlBEDtQAYpYAptBZWfPGG5LI OmPCAfUFHvAJ9UItGtMSQwUTG3VdLpXGBjTPDgaj9RSXQcKEOaXlU2EjPiQGUaJREaWPzxQNCpEUK4ME r0ZMBfKXXmLQ9TYbXdZEHvNGhrXwIxBGEgSNOkpk5Y MKIoLIKtGdD4DqXgSWGgBMGuCJffYEVxCIF5SYRwCHUxQKOrZD7NDvQyYVBtEBk1EQUeJHShDQOpjo8K ZUOqZFOpDDZ4SYZcAVHkVSHsDAh0upIhhSKaHJq5RQ2WL6RukeBoXPjVKi9Uq613OLM9CJFuLy6MF0oi Fi5oRPDvDMELXt7UEEt3IQU5PDJmVdUjEEVnUoSzBh Z7BRN4JHS0SRTfQVIkOKU+SOjxQlH3HcWwBrK5GiL2JoPaJqX5JQfhIVM2QQJ5KLB1It9uEZKBZx5+DQ dopXGyeTfwRWLCPdyyDUNNRjOsGF3RSQl= ID Date Data Source [id number] 02/16/2020 11:44:23 PM EDT [facility] Name Value Range Interpretation Code Description Data Sudha rce(s) Supporting Document(s) ED Provider Note [facility] JTCOYo9qExTSHqHa13/WNRjkBFTuy6XoVJvqWAa1DRzsHHOxF9WcOOS6wA0oEPT2SDsKWnUcGdHnXTJp lbm [file] AWKPHdP4VFwjAIglRAXYUk5L ID Date Data Source [id number] 02/14/2020 07:52:57 PM EDT [facility] Name Value Range Interpretation Code Description Data Sudha rce(s) Supporting Document(s) Consultation [facility] ABMZAj2rPzKCSdXs42/YIVztWUUcc2AqQXtyYSn1GPtvURDnA9QfMXP4aQ5aFAF7LLzOXyZrBhMoOZNk lbm [file] AgICAgICAgICAgICAgICAgICAgICAgICAgICAgICAg ICAgICAgICAgICAgICAgICAgICAgICAgICAgICAgICAgICAgICAgICAgICAgICAgICAgDQogICAgICAg ICAgICAgICAgICAgICAgICAgICAgICAgICAgICAgICAgICAgICAgICAgICAgICAgICAgICAgICAgICAg ICAgICAgICAgICAgICAgICAgICAgICAgICAgICAgIC AgDQogICAgICAgICAgICAgICAgICAgICAgICAgICAgICAgICAgICAgICAgICAgICAgICAgICAgICAgIC AgICAgICAgICAgICAgICAgICAgICAgICAgICAgICAgICAgICAgICAgICAgDQogICAgICAgICAgICAgIC AgICAgICAgICAgICAgICAgICAgICAgICAgICAgICAg ICAgICAgICAgICAgICAgICAgICAgICAgICAgICAgICAgICAgICAgICAgICAgICAgICAgICAgDQogICAg ICAgICAgICAgICAgICAgICAgICAgICAgICAgICAgICAgICAgICAgICAgICAgICAgICAgICAgICAgICAg ICAgICAgICAgICAgICAgICAgICAgICAgICAgICAgIC AgICAgDQogICAgICAgICAgICAgICAgICAgICAgICAgICAgICAgICAgICAgICAgICAgICAgICAgICAgIC AgICAgICAgICAgICAgICAgICAgICAgICAgICAgICAgICAgICAgICAgICAgICAgDQogICAgICAgICAgIC AgICAgICAgICAgICAgICAgICAgICAgICAgICAgICAg ICAgICAgICAgICAgICAgICAgICAgICAgICAgICAgICAgICAgICAgICAgICAgICAgICAgICAgICAgDQog ICAgICAgICAgICAgICAgICAgICAgICAgICAgICAgICAgICAgICAgICAgICAgICAgICAgICAgICAgICAg ICAgICAgICAgICAgICAgICAgICAgICAgICAgICAgIC AgICAgICAgDQogICAgICAgICAgICAgICAgICAgICAgICAgICAgICAgICAgICAgICAgICAgICAgICAgIC AgICAgICAgICAgICAgICAgICAgICAgICAgICAgICAgICAgICAgICAgICAgICAgICAgDQogICAgICAgIC AgICAgICAgICAgICAgICAgICAgICAgICAgICAgICAg ICAgICAgICAgICAgICAgICAgICAgICAgICAgICAgICAgICAgICAgICAgICAgICAgICAgICAgICAgICAg XQo5J2jnEPPcNYDcOE0gHLx3Fr3+JQuFSzNvQMW6ddJcoC6LTF9ai9XcDFmoYWLmk4KyLNi5OT7YIPWg DVcuFN8YIHamrp3HAWVqBPUpnQKWz3oqBvThRMJ2PX GkJhtwQB7MDMUdK4qortDnWLNyGMEMZO8JMeXbP4SpyI81PITLXs0+PNfamiDuChgBIzV8OBFnq8NgCV t1VP7DDDTeJuydd7LiBAMrCBBXBXjwHR5TBWW3XLN9PRVpHn3OVOXoJ638lkUuEC5FYf7IBwHeHK5abu 0UTEArYPUdIxcXHgy8PDrmZY4HrIFrQQyGh45fhNm0 txEhfEFUkS1vUEPiSiDBGPdzRZSXYSCUZNS1MMytZX5zLXTrNYB0EjCgPKPEZY9KCNHpEZAqzNYnWSRs LYPESO6QUMozIJA1VOTsmzIcnKAmZGnzYT3TZFWykhJnLOSuWZEJZRu+Yw7BOE1hv9UyUIahHaLfMF9q js2MYIhNZuZvS1I8uTAhW9M5QOdzDo7XPXViRTUuTV IaGOLZRCfsDU6NKA9eajR7PZ0VuTCuAOOrCWVdlJKoUAk5K85xeBAuOSqoEV8KSXZ+Dulce+Eh4RDEPbVE XwEFOeGyLmRKCTUwTtD3YrF4KTw3GqB5TaSR55fRdikvLpVLzpVZ8LST0mZHEsTQIHXX3EiHQkeK2qis VuGDLeJMOGMeMfH36sfYTgAQTrUQDsGIRmAm7XJVGh B2OlbpLmgNmnsxJtGXKpOULHTJ1EVQuyurAcsICieHbzDE94lWavCR6KYx4XVgGaAL6cvk8PhETfVe8X BDYvHq8VEILlKBDrMXYaSOH0SKBmTaBuLGddDTJyWDCpELR3FFSrEMYiTV9VMjTcYBGpMVR0XVNpMZTz TTHunc1MHWBpHMDrZvD9CaOdRELhYGSnHRyeHVGeXW EjYNZ9UXJsBOQpFJ6DUwHoPVBmQWJ3ATKxLRQhAITxwj3KTVZvJLAiGgu2DVEpVEBaMCPfOSilZKMdVT EzKIL5ZARfPIFbLQ6GVbRhIDCyWURfGLAjGSMyGLJriu7ATALaWMUmJIA9YVNoGLNyZBSrPLhvTQDoZY X5YkVlWMUrUCZmGB0DUrEeBNIiUFB4QPIrQEZyNGDd fo5GUNRoLEUvFCEhPsUqJITrCMCiKVkzVWBvYKT7XOI6TBQgKKDrMF5ELqDaVDAaNPv8NeMgCMKbNDUy hm7TXYNcJIEgQcV4XJHzGDLoEICvUKvqQUTjFDK4Nro3WXDtDKBfXP4ZQyAhBQslNGRZZuu5JZxqE8q7 JDZwKr4RS1Wun5UvOSWxSHLELHpyRX7jhoPiFYGhOx 1RA3sTAolnVEEvX1S8QTNcQ6RwHdZ3G7L3Pfm6BPAdSUYpBkR5JZ4xNYQxIjPsSKA0VPIeS9T1UJf2LI u3KSc2VMHrLkMwMTNgAwFpVJ3FGx1TBgJ6XOK4lLMiVu4XOosuOu4VKIWRA4AXKk== ID Date Data Source [id number] [facility]/14[facility]2020 [facility]56[facility] NoneMicroorganism XXX Cult : 2019 nCoV Real-Time RT-PCR: NOT DETECTEDTest performed using the [employer] COVID-19 MDx Assay. This test is only for use under the Food and Drug Administration's Emergency Use Authorization.Additional information is available on the following FDA websites for health care providers and patients. https://www.fda.gov/media/074225/download , https://www .fda.gov/media/111928/download Name Value Range Interpretation Code Description Data Sudha rce(s) Supporting Document(s) ID Date Data Source [id number] 02/14/2020 06:09:00 AM [facility] Service Cmnt XXX-Imp : NoneMicroorganism XXX Cult : 2019 nCoV Real-Time RT-PCR: NOT DETECTEDTest performed using the Rhe[employer]ix COVID-19 MDx Assay. This test is only for use under the Food and Drug Administration's Emergency Use Authorization.Additional information is available on the following FDA websites for health care providers and patients. https://www.fda.gov/media/685160/download , https://www .fda.gov/media/189549/download Name Value Range Interpretation Code Description Data Sudha rce(s) Supporting Document(s) Microorganism identified in Unspecified specimen by [facility] This lab was ordered by [facility] and reported by [facility]. ID Date Data Source [id number] 02/13/2020 04:11:11 PM [facility] Name Value Range Interpretation Code Description Data Sudha rce(s) Supporting Document(s) [facility] TNQYYi0eYmAHStWh47/EEEsxLMCqs0DlKKxlYId3PAndINUsR4RjYZB1eH9wBYV8JVcLFhTfVhRdXRCv lbm [file] ICAgICAgICAgICAgICAgICAgICAgICAgICAgICAgICAgICAgICAgICAgICAgICAgICAgICAgICAgICAg ICAgICAgICAgICAgICANCiAgICAgICAgICAgICAgIC AgICAgICAgICAgICAgICAgICAgICAgICAgICAgICAgICAgICAgICAgICAgICAgICAgICAgICAgICAgIC AgICAgICAgICAgICAgICAgICAgICAgICANCiAgICAgICAgICAgICAgICAgICAgICAgICAgICAgICAgIC AgICAgICAgICAgICAgICAgICAgICAgICAgICAgICAg ICAgICAgICAgICAgICAgICAgICAgICAgICAgICAgICAgICANCiAgICAgICAgICAgICAgICAgICAgICAg ICAgICAgICAgICAgICAgICAgICAgICAgICAgICAgICAgICAgICAgICAgICAgICAgICAgICAgICAgICAg ICAgICAgICAgICAgICAgICANCiAgICAgICAgICAgIC AgICAgICAgICAgICAgICAgICAgICAgICAgICAgICAgICAgICAgICAgICAgICAgICAgICAgICAgICAgIC AgICAgICAgICAgICAgICAgICAgICAgICAgICANCiAgICAgICAgICAgICAgICAgICAgICAgICAgICAgIC AgICAgICAgICAgICAgICAgICAgICAgICAgICAgICAg ICAgICAgICAgICAgICAgICAgICAgICAgICAgICAgICAgICAgICANCiAgICAgICAgICAgICAgICAgICAg ICAgICAgICAgICAgICAgICAgICAgICAgICAgICAgICAgICAgICAgICAgICAgICAgICAgICAgICAgICAg ICAgICAgICAgICAgICAgICAgICANCiAgICAgICAgIC AgICAgICAgICAgICAgICAgICAgICAgICAgICAgICAgICAgICAgICAgICAgICAgICAgICAgICAgICAgIC AgICAgICAgICAgICAgICAgICAgICAgICAgICAgICANCiAgICAgICAgICAgICAgICAgICAgICAgICAgIC AgICAgICAgICAgICAgICAgICAgICAgICAgICAgICAg ICAgICAgICAgICAgICAgICAgICAgICAgICAgICAgICAgICAgICAgICANCiAgICAgICAgICAgICAgICAg ICAgICAgICAgICAgICAgICAgICAgICAgICAgICAgICAgICAgICAgICAgICAgICAgICAgICAgICAgICAg ICAgICAgICAgICAgICAgICAgICAgICANCjw/eHBhY2 lbtFOsthF4P9phRj8NFg1KPM3kp6MaJJJdPUwtjyGqRxpDRyDeLVOxYosVKia3KRdfEL7LuUZsA8TwB9 ZeSXbcFJ8ANPPpBWKewIMsHXSwQYKnSqL2RWVsSZydGN7IzQIuPTkpIPWmPWYoFwBwKWGlDY9VPAXxJ0 57tyKzWi7QHs7HZjEdMS6hqj4MOLAaWXHdWoqRSea4 IRrsKB1TtNVlnIDqMrOdJLZGJuZwY1qxl8UzKLszYIYXUIqhUD2Wc1WbbTUtPHq+Au5ZBT7kl3LxOBjb PrQxCW2sww4DMGkFWqWkG1SioDbvSCYxxlJ7gZOfCFH2TJucCNqlKURVjFGixbFaUJiGW2zmHGBnLP2p LK9yRZOwSLYjJuRsXKQCZB1EQYKtXBEyoUTfGOQhQX OKBC2HEDieSYI6MEQcogEnqKUaXHnyGQ3KIXWwddDzMPQoBUJVGVr+Tm5IZD5jn2YzLMdkJAUzUD8tax 7IAYgDDfRmF1H4bQKvI0B9RFjrBj2LRXWoCYOpQFBcBGVCLLkzHQ1RCW2oqnZ8XP9MwVJiGOOmKIAhaZ MnBZm7O02iiJBsBBhlUZ1GQWP+Dulce+Tv6RKVTwXZEe ZLBvGkNjXUNNDiQjA5PzW6EAl7FsQ9EwQW32jJhbniQxUAbuWM1SXP5eOAHfPFWBOR2VoEHfbZ5lhyPc YlHkDIRMVaAyG63vaLVmYBKvNWU4PANfOw4HBIDsT4HkotItjKealbKqCJJnBGGPDX3PJNwbanDtcKMt sEvwDQ07sXhdYJ4GLk4JBaLfLR6pje6HpQZgNo9ZTH AkZY3WGGQgYQXfWXIuPMT9IQXwAwHnIBmhWWPvUXUwHMS6AYVkJSJiOT6NScHkNLGmFUpfBsPvEUMlDV Swde8HUBLdUVWvMWW0OLSmVEBiLQChKHfdNVLnPXYkTYM0THDiOZFzDM0ZIgXlEBRbRNZuPOhrZSBjLS Ldbo8DMHDnAXUuGMTmFWEyYABcBRMjGHriHGYoKQS5 BAEbGGBqHOOzWR4TVvTgUTOaGSX5AgPhMUHeBVPiza2RKXScRUDfWvIgRDLrFCAdBUEmJVycSKRyWZA6 KKZdBRKvUOKxUH7LDtJoWIUzKSsuVYEoEHMlDTHzqm1MXECwXRBiRUv4WFLlEQOzFXDyXErcXEQpZFK7 ZFThNZWbHVHnAA1SMyRsXWNvPGqqVLUfCWYkQKOjkx 7UMHMdPGWyWOk6SMZkNZBkQFFnMTwwZDXmINMlABr9NCUnIQNkTY4QQmDvXWTfORHbGpGoKDZmQCGkpy 6KUYJeQXObBHSnNKGlMTZgTYReJXe7asQfmNSkIGz8SO3UZ9MbnbAiLQiKYe6Rx598FPA6PUVaWf5YH3 fkTv5zDHKoETWTTi1NVRf8DYDdPLYiNEY6JaxcJQD9 MNm3G2ZuZZXrTjAqWKW9YBU+CNpaLUDyVqS8UQrtTVXrDWiaDAmrJqC8EBSuFjCzUAkcLH2iGMYHIy3+ QHzdrLJbyXupITGHVvFoIeS6ZEjbLWOZUr6C ID Date Data Source [id number] 02/13/2020 01:09:08 PM EDT [facility] Name Value Range Interpretation Code Description Data Sduha rce(s) Supporting Document(s) Consultation [facility] GFKTYr9vWpQTQbNe48/YUOpzLDDkw4HnTGbcWKo9DUhaKIIiN3WkWLH5kE0fKDM4QDhPPfFkAeGjJJBv lbm [file] D5UMRyQtAcGFS2YCZhJ9LbFyA0LLM+VO8gCJh+Ap6Hy8GaanV7yaCpXTg2DMhcKCnkPYRQSf3B ID Date Data Source [id number] 02/12/2020 02:48:54 PM EDT [facility] Name Value Range Interpretation Code Description Data Sudha rce(s) Supporting Document(s) Consultation [facility] MRDSOa9bBeMCVgBh45/NFVjmYMJke2ZxSGjmYXd5RSxdSPCxJ4RvAHC3aV0zVDD1WRjTRnToNjQmBUPw lbm [file] DQo+Ih0Cq7FdqyU9ynSuKAxcYAV7RS2UJWRLA4UCTf== ID Date Data Source [id number] 02/12/2020 01:13:35 PM EDT [facility] Name Value Range Interpretation Code Description Data Sudha rce(s) Supporting Document(s) ED Provider Note [facility] XCNXEp5kLqAXFsYn58/PYLxvCAUbk3YkIRosMRk7MXgeNYKlD2LaOMU6rK5mIVZ7GFgPBoBoHzFeOZWf lbm WiEtxJJfMsVDEhKzmCIiYaIDgfRyqdpIHvGB0XhGQ0IPAdM48gVPGlEWJzE5KbWBG9Nag+Ur7UTMBzdA HuBR1RSkgE0Grla5g36ebJ1r/8gB6kmAPKUBFiLFPv1uC1NOfe2rGupesYtXOHu0aUbGP22L3/6pX4nC frnwH1y3PGwD6UXe5FGjxwXq01nU8Yj5XI9n/3XwMr 8UhGvzfOg2ietqpoE0/ZLsTX8ZWA3QOoxoxjH/DziD1/zLgAknH7brZZKo2SeoTkfWlPXmqpQ9m6+ZFd kyBaCH4GxkrvDab8AJdEjI/o9z/8wEb/R8re8hBvSgldPmZerslU53HdaLN8Bh5iC3hWn+k/m8kfVgdW ywMK27Ra5WXQ2YwjXI5E1Mh7oCEY3tHSyY5tr9NF1A QkoVrQxxK0fKHoFpfXT2udJf0DOnUj7UYecqNSrEac2kEicn/Ashley+FWRK5tNvlkOvKtRZqC/qP0bPk7C [file] ID Date Data Source [id number] 02/11/2020 05:33:15 PM EDT [facility] Name Value Range Interpretation Code Description Data Sudha rce(s) Supporting Document(s) ED Provider Note [facility] MDZBEi7pZkNWVkPs40/HXBwjXBYht2SyMZvtLUd5ABcgAPVmC6OwHBF4oQ2uUXF7KUfVWuTkYuAbUMW7 lbm [file] nAUoQd6PFWPrELdXJtEfSP2ZLYq= ID Date Data Source [id number] 02/11/2020 12:21:02 PM EDT [facility] Name Value Range Interpretation Code Description Data Sudha e(s) Supporting Document(s) History and Physical [facility] GJYYOr9mNkTDFbQo09/XVCecAKTya7KwWGxzOJk2ASmhMUSnU9TqNMF0cN5uWHC4ZNsVQbEtRtPvXUM0 lbm [file] sQO5YNCTMtVQOkmubyCZlMNVEGfqJJXWslVVM8QT8D00Sww2X7C++2vaHEkLGZoiDp32Eoq+SJKI/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 [file] ICAgICAgICAgICAgICAgICAgICAgICAgICAgICAgIC AgICAgICAgICAgICAgICAgICAgICAgICAgICAgICAgICAgICAgICAgICAgICAgICAgICAgICAgICAgIC AgICANCiAgICAgICAgICAgICAgICAgICAgICAgICAgICAgICAgICAgICAgICAgICAgICAgICAgICAgIC AgICAgICAgICAgICAgICAgICAgICAgICAgICAgICAg ICAgICAgICAgICAgICANCiAgICAgICAgICAgICAgICAgICAgICAgICAgICAgICAgICAgICAgICAgICAg ICAgICAgICAgICAgICAgICAgICAgICAgICAgICAgICAgICAgICAgICAgICAgICAgICAgICAgICANCiAg ICAgICAgICAgICAgICAgICAgICAgICAgICAgICAgIC AgICAgICAgICAgICAgICAgICAgICAgICAgICAgICAgICAgICAgICAgICAgICAgICAgICAgICAgICAgIC AgICAgICANCiAgICAgICAgICAgICAgICAgICAgICAgICAgICAgICAgICAgICAgICAgICAgICAgICAgIC AgICAgICAgICAgICAgICAgICAgICAgICAgICAgICAg ICAgICAgICAgICAgICAgICANCiAgICAgICAgICAgICAgICAgICAgICAgICAgICAgICAgICAgICAgICAg ICAgICAgICAgICAgICAgICAgICAgICAgICAgICAgICAgICAgICAgICAgICAgICAgICAgICAgICAgICAN CiAgICAgICAgICAgICAgICAgICAgICAgICAgICAgIC AgICAgICAgICAgICAgICAgICAgICAgICAgICAgICAgICAgICAgICAgICAgICAgICAgICAgICAgICAgIC AgICAgICAgICANCiAgICAgICAgICAgICAgICAgICAgICAgICAgICAgICAgICAgICAgICAgICAgICAgIC AgICAgICAgICAgICAgICAgICAgICAgICAgICAgICAg ICAgICAgICAgICAgICAgICAgICANCiAgICAgICAgICAgICAgICAgICAgICAgICAgICAgICAgICAgICAg ICAgICAgICAgICAgICAgICAgICAgICAgICAgICAgICAgICAgICAgICAgICAgICAgICAgICAgICAgICAg ICANCiAgICAgICAgICAgICAgICAgICAgICAgICAgIC AgICAgICAgICAgICAgICAgICAgICAgICAgICAgICAgICAgICAgICAgICAgICAgICAgICAgICAgICAgIC AgICAgICAgICAgICANCjw/aXLqA7nzfIVjicN2J2pwWg5BXp0RYZ1qo4AuVYAkFJnvfyQmMgpXHbQkCM BvFboCUot4CLftTW9JdHGdX1YoB6SwDVucFT7SLELg TWHybDToCYApJURwJuM5DILjVXtkLA3GaQGkCDkhPCBmZAMbKgHaHZVsQHUtEIMzTXUoAZXUSEWuRECt UwTpEVewWV7Xh0OxpKY5JQx+Wo7JVG8ek1TtGPezRVBsOB4puy1PHKzRArBeT7MzhgS3MIDuQQWlVp4M SQWoUJZmcMK1ARXnVGBYJmXgE3FboE74VFDSKk9+DQ zblfKzKhxYLfLzGEFfj5SyRWm2DN4UONVoHIz5lWBkPTZBJUN1ZLdiFiIdBwEfNDJnCP3CHDE0FCxhHg avFuLgUMIqEJi1CHVJHXhMKqTcL7Muf2CjIvH4MRBxWmGyBJmoJZWuPqP4ZN92xWoqVQ8OOBFaXVUrDR 80AYV7MZGpId1DRd9FBxXzZI9biw6XPJWqLKUuDluY Iyj6MIsgPM9TvCXoF1RwtEKuu4wXKcYkN8SBIFC8VTGxVv9CBPImExNhKQKbPEjiPX7hYLIsGECRtAup gwN1GV8SGJ3ahxJpIK2OEcVxTh1vVq2NIwGyW6WcP3IvGESnYSDFHHajMI1NSKnnAG1vRX4Ba6EEkUPw cD3dxm7ZSWEgOQLrYbsxaw1HWhuvA4B3jPciDQHrVr hfYPECAJmoYB0VIUKeSJP2IAOhLDYlAMNMLdUzM63vHF0CS5Vbh87gZvN2YQZmIbYjRPcxPH47vTiwml DgpTOpaVbyZO8NPl8+STjtuvQxMykUTspcWLUEPzIpVJTMOeOzHIVdTEVnNEXzTsN1UbAeRx5NHSVsWU FgZHNyAyGuEEKcPTHcJMmrGULwWIW5QNoyEMRnUSRc DB4FFfRwGGNuDnrqPSMiATFsLEWimf9LHIRzTUGgSMH5XjDiDUXfFVKpYTvzHLXjQCD9RTB6TUYoSVXq CN3IMxFuPXJnMGCoHQuaRKDeYKThkr0CUFMiBOQqIsTwWcEiIYUxLPSlCHnnAJNnXDM5RNT5CYLtPVZs VN3HDuZiRZIkMGN4SRtpNYPyPFMegm2FNINnPIXlJH znAIYgJJPgYWFcGGmsNGBsPPP6NpX3TSLcPZRiEE0MZyGmEUCjAWE4SuMpMNLdZCPdix1MPSPiTRWhJm TkNFQxOIDmGTYyHCcwOZPnDIU9FxXoGTXbOJFsJY1EInCnICTzXSnjFrAsVVFvVNGlyy2OHWLaJORjZP H4XXNtVRCnXJWiMTsdEITcXYU4PCQcWQFbSNMkQA6J YuPgSQDaZEt0XNVwXUQtFAQftc0FOQFoEIKgIVzfLpGyNWMlQPTtJBgaBGAcSWP6YHEcXFQtYUXyFL5Y EkMaUEJhNoB2NGttRSIbRVFiwc3OEDTqQHNuPXM2HMSdGPUvYVXiHXjvUGWfENGcNzI0VWQuXPImHS3I SgOiQLGpLoRyYUojJBPoQZCmve8WYUEdTBQzTqXbRn NkZPCeAXXbEVruYPXaCOWoMBw0KSRyDXZwQJ8ZVcZrCFMhTpM5XLhvKLSuINByqi0QJYMoJPEvBat1Ac ToLOZwGIZpFQukNXAeLFTmHENnVYHlHIJyXF1RLuBaSDGuUoTrVssaZONaIHAwrz3QNONuESOxMFB3Te WqEEWsBICyHSggHUVtMEK6KLV2VRZzHZTmFH2NTiFz UZMcRtWpLOIlOQUpTSAouy5JEKPqCAZbKnE2XINzIYOcXGUrDWdgJUOcCIE1GId6GRSpUJSuTS8CKhUy BYHqHmrrScNqMCQiEHOdhd1CWIHeGHCfEmF2MAKdDIFhNTGwRIakAZCvPGX1CJK2RGSqGSAgJR2BCdFh LJLsQvd5IumaVMPvBDXrfy9JQDUaNCKlNUZ5VFZhBE NzHJNfVUpyXEPmFPW0Jqd9QOMcQWBgSR2ZRpBgSGvpXEKMHdp3QNhkY9a7HCK0Fv3HT4Xps7DnOPJnJU ZKMMqfAL1lwjBnWLMtLx0NY3lRQnqgEXXpQMyqRXHtEQHyYqAlTSF1ODy5GyIvQmBhYpahHf9ySGJdEK LvATS2VZD4ZrVuZiNmMWl6AbB9ZuNuDXLtMLAvDkHl MD3JSr7GYuB7DAS2xPSdKo1ODkm3MvnRIaAbHW1PYFu= ID Date Data Source [id number] 02/11/2020 10:14:22 AM T [facility] Name Value Range Interpretation Code Description Data Sudha rce(s) Supporting Document(s) [facility] KRISCb3hGfMIPaLja7FcOqGnMCHxDA2fpmr1B9I4dDDcH4IhcNIvo2uuH1VgM5JbAGLnWIYAQU6SyBLq jb2 [file] 274p2ihpIvGd7fy6/64eP7r/7xx69+9fEPX//88HlhHi2exM4/Jfe7L7/41SJY62027cyhw//8q08//v T954/uiV01mcgro/rm0/f/xSXuJ/h9iS+/+9Wvv/n8v3/+4b/4T6tBf/fjV5+//4evf/m32w22r/F98/ H5y7/7+m3J7r041//w1edvP+52P33/+ZfZwdcJH9/9 1NgMC6oZewm9J/5FpzbvrR4As6+3Otl62146lv7Tg/mgt7xwmkr81s3//MOnHz7+0cvooa5jp6Eb/VBZ Y/rTH//193/+w+/+5eP/+F8fv/p2k7tPxx/86Zu/+vjVa+S48dO9S1/+5uOf/lvzf/rLjz/98cP/WuKv f2gLZ0398Ff21Vo/xJpX4CGyC/qHP/z1v/Yd6r7V0M rBf/yR0P9T5u3rc0/+X6BLcX/Q+O/Lowerg7QJXDa++ZOXa5oq8FjsY79XFS4JGcuwiaU9SE+X2aqPc/ /h+9/96+/+/Oclsi8+Et5e3pQz9z3m30ddzr85h351NB9339nu0uoS9/JW7Z5j04/6koCdzQvXxQh3Di U92G9+98f/+O8ff/7tf/zurfXXM/YjM+7cf/oDb9Pi Hqzp+HnrG/z19x+//+N//O7P/89v/+2/kE3R1L209CkL4T/e+sb+/tigCj0rf6k5/vs//sLpqg55oS2z Ppt4sL//8a///sd/0a2XF5B/6gmlor1zEd9iZKsi1g/sZ51/sBXPk7fvW5au047c0Z4/6o6ghfi11n/8 3b//67Sj9Kq+/eJ/++ymG1lpJY1Z6ORO+V9//qe//N m/561626/94bf/1kqY6n3/8rf/459/+++//+2yx6eOdzGmv/8Z+Ejp+z/70X9beGMzd/1hD+ibP/3zF6 pcy/eLcZYkuPEff/fP/9cff//Qyo962dvfsfoh41+/+uFn/14FQPLf//2zn1j5Z3/8+xggaygqW7586G W1H//qtXH/8AVX+v28/P//y/81ZX6GC/Cvf/t//u6j groeAw64h+1lS9ynMu0+vzaF5h+ff/dxZ6d5oBipZsv333/5+yoMcTymxfsk3qxAZ51u9+u//T8w4t6w Brv1/w/WJXtfBwQdTDA9skUntXyrjyMgArxFZAzsHJJvAgu0AH9OcEYhTYYqP2K8OQNtis6lOFPdHQVm yYZwUoTwRMVMAN1UuMQeNS2KTZi3JSIjEFYxRcQgLP DcewB8ASTtALBsGSIrA8FopnSczTBsWIDnPx4+AV2ok6JfLoSeDYUbFio7EI8PpEEtBW0AvWLerU8xus PoO394ltPjMAUnKgkrs9EqUKqmNFISGT9FZBK6GEI2GBCuJh8+RY2iz4DzDdScGMQeUmc2QM7HpJVnr0 RzGS7UK4ZfCEIyIKYEPQA2y5QyEMKvmfujnwsmN2Aa HGA4gH1wIYR3TXQcGSbaYTOeBTfhEOOkKKMtLHxnBQQsZZUzGODcRYNvDVw8kXZtDR4XL8OhOUSgQLTI CAInetLbFy7fASrFGTbBG5FxHDLKKNHHGNeTCFX2FKZsUWQnPG3IzKNjVFA7XOwPGUOXTOjLWZdvUvOu a4H6VNYyP9XyPMTffwXpFUUVTHbqUtpuLP8wyWsbwg zoT8ChjDGlDPCWHFJsOXWsFCMqVABjT1Qox9E3B3IyGFnJYLQDTMlKIFuaOrK8y18ineOJOASbYZTtEI 4+TU7ig7NgCc5QDSBxFG2mvvm1JE7LdAWcOT8ULEzqgyTrN5jgchUbVvNsFSZWUS2gE2VmrA45QXU+Pm DzKW1xwfo5xjGdKlZsKGHoCCFbPGDxSIfwYNCwLQWx UAIqTDC3EKT5EQXeCaSiHYRmLajnGUIcVYQmOIOpwhUMYZHuUXU1WMt2SXNqZEFbMIRlWXqzUXLxEYR1 TBL9SFKrZLAcNF4aVmTbOUSsRSOlZMYmHeT8NuYtKuYWNDNnRUCeCGVtBgOnALVwNURhKFhhHUCpAOVd JMt6WPDpURDcBT4nOcPfXFMyVIXbZGPfEPGuGHMhlu DPWCSbIJCdDCX4JQZiMICsOCLdVVgbLPRcUAWcFTU7UJPvQMFyWZ8iGrUzXGDzCCR4ZtMnQJBxAYVcnr DIUZUvGFSwBHZ2DLQcOOEkVFJtJAseDPMrHSRiIyA8QNJvRNWqLN3gNvPrKCQeFIK4HWDpOEJxVJBkdh FXPQHfZERbDBo5WcQhJKHdPDJfWTmlEWUyZJIvPBie QPXiAFKhAW4uLbMfAUKaMNCpZDHvPKTlTVJrcsSQUFZwGIZdLPX1AjBkSFTzJBUsXYynRGSaBFAoAXP5 EHYnDMIgJQ0kHwKpCWEqCoa5PipaVEXcDYLdzoGVPCSjBKYcWYZkCIHqAPUdZUCsMAepORGcBGTsIfE9 IZOuBJRoBC0fNmGtYBFiUQM7ZLFvAIRjNKZsxnEPQX CzPGQuYWRjYDD8DSKmVCGpJZp0quUvdLHqCkb9Lc3JcSbtZUQ7Cg2QrhMzBITvKGXITb2Br631PJYgOJ BSCgo+NkjhnLVrfLepVWIYTpzpBtHUPJXLC2U= ID Date Data Source [id number] 02/11/2020 10:46:29 AM [facility] Service nt XXX-Imp : NoneMicroorganism XXX Cult : 2019 nCoV Real-Time RT-PCR: NOT DETECTEDTest performed using the CoverMyMeds COVID-19 MDx Assay. This test is only for use under the Food and Drug Administration's Emergency Use Authorization.Additional information is available on the following FDA websites for health care providers and patients. https://www.fda.gov/media/490725/download , https://www .fda.gov/media/567073/download Name Value Range Interpretation Code Description Data Sudha rce(s) Supporting Document(s) ID Date Data Source [id number] 02/11/2020 03:26:00 AM [facility] Service Cmnt XXX-Imp : NoneMicroorganism XXX Cult : 2019 nCoV Real-Time RT-PCR: NOT DETECTEDTest performed using the Rhe[employer]ix COVID-19 MDx Assay. This test is only for use under the Food and Drug Administration's Emergency Use Authorization.Additional information is available on the following FDA websites for health care providers and patients. https://www.fda.gov/media/467509/download , https://www .fda.gov/media/277940/download Name Value Range Interpretation Code Description Data Sudha rce(s) Supporting Document(s) Microorganism identified in Unspecified specimen by [facility] This lab was ordered by [facility] and reported by [facility]. ID Date Data Source [id number] 02/11/2020 06:36:22 PM T [facility] Name Value Range Interpretation Code Description Data Sudha rce(s) Supporting Document(s) Hepatitis A virus IgM Ab [Presence] in Serum or Plasma by Im munoassay Non [facility] No acute infection, susceptible to infec tion. Hepatitis B virus core IgM Ab [Presence] in Serum or Plasma by Immunoassay Non [facility] IgM antibodies to HBc were not detected, does not exclude the possibility of exposure to HBV. Hepatitis C virus Ab [Presence] in Serum or Plasma by Immuno assay Non Reactive [facility] No serological evidence of active infect ion. If recent exposure is suspected, test for HCV RNA. Hepatitis B virus surface Ag [Presence] in Serum or Plasma b y Immunoassay Non Reactive [facility] No active or previous infection. Suscept ible to infection. ID Date Data Source [id number] 02/10/2020 10:33:56 PM [facility] Value Range Interpretation Code Description Data Sudha rce(s) Supporting Document(s) Amphetamine [Presence] in Urine by Screen method Negative [facility] Benzodiazepines [Presence] in Urine by [facility] Cannabinoids [Presence] in Urine by Screen method Negative [facility] Benzoylecgonine [Presence] in Urine by Screen method [facility] Methadone [Presence] in Urine by Screen method Negative [facility] Opiates [Presence] in Urine by Screen method Negative [facility] Oxycodone [Presence] in Urine by Screen method Negative [facility] Fentanyl+Norfentanyl [Presence] in Urine by Screen method Negative [facility] Service comment [facility] Results below the indicated cutoff (ng/m L), are reported as"Negative." Note: for medical purposes only; not valid for legalor employment testing. ID Date Data Source [id number] 02/10/2020 08:19:31 PM [facility] Value Range Interpretation Code Description Data Sudha rce(s) Supporting Document(s) Leukocytes [#/volume] in Blood by Automated count 9.4 10*3/uL 4-10 [facility] Erythrocytes [#/volume] in Blood by Automated count 4.32 10*6/uL 4.1- 5.3 [facility] Hemoglobin [Mass/volume] in Blood 13.0 g/dL 11.5-15.5 [facility] Hematocrit [Volume Fraction] of Blood by Automated count 38.8 % 3 6-45 [facility] Erythrocyte mean corpuscular volume [Entitic volume] by Auto mated count 89.8 fL 80-96 [facility] Erythrocyte mean corpuscular hemoglobin [Entitic mass] by Automated count 30.1 pg 27-33 [facility] Erythrocyte mean corpuscular hemoglobin concentration [Mass/volume] by Automated count 33.6 g/dL 32.0-36.0 [facility] distribution width [Ratio] by Automated count 13.2 % 11.5-14.5 [facility] Platelets [#/volume] in Blood by Automated count 324 10*3/uL 150-400 [facility] Differential cell count method - Blood [facility] Neutrophils/100 leukocytes in Blood by Automated count 59 % [facility] Lymphocytes/100 leukocytes in Blood by Automated count 33 % [facility] Monocytes/100 leukocytes in Blood by Automated count 6 % [facility] Eosinophils/100 leukocytes in Blood by Automated count 1 % [facility] Basophils/100 leukocytes in Blood by Automated count 1 % [facility] Neutrophils [#/volume] in Blood by Automated count 5.61 10*3/uL 1.8-7 .0 [facility] Lymphocytes [#/volume] in Blood by Automated count 3.05 10*3/uL 1.2-4 .0 [facility] Monocytes [#/volume] in Blood by Automated count 0.55 10*3/uL 0-0.8 [facility] Eosinophils [#/volume] in Blood by Automated count 0.09 10*3/uL 0-0.5 [facility] Basophils [#/volume] in Blood by Automated count 0.05 10*3/uL 0-0.2 [facility] Nucleated erythrocytes/100 leukocytes [Ratio] in Blood by Automated count 0 /100{WBCs} 0-0 [facility] ID Date Data Source [id number] 02/10/2020 08:31:03 PM EDT [facility] Name Value Range Interpretation Code Description Data Sudha rce(s) Supporting Document(s) Prothrombin time (PT) 13.9 s 12.5-14.9 [facility] INR in Platelet poor plasma by Coagulation assay 1.05 [facility] Routine intensity oral anticoagulation I NR is typically 2.0-3.0. Target INR must be clinically individualized. ID Date Data Source [id number] 02/10/2020 08:31:03 PM [facility] Value Range Interpretation Code Description Data Sudha rce(s) Supporting Document(s) aPTT in Platelet poor plasma by Coagulation assay 27.3 s 24.0-33. 0 [facility] ID Date Data Source [id number] 02/10/2020 08:47:45 PM [facility] Value Range Interpretation Code Description Data Sudha rce(s) Supporting Document(s) Acetaminophen [Mass/volume] in Serum or Plasma 10.0-30.0 L [facility] ID Date Data Source [id number] 02/10/2020 08:47:45 PM [facility] Value Range Interpretation Code Description Data Sudha rce(s) Supporting Document(s) Ethanol [Mass/volume] in Serum or Plasma Negative [facility] ID Date Data Source [id number] 02/10/2020 08:47:45 PM [facility] Value Range Interpretation Code Description Data Sudha rce(s) Supporting Document(s) Digoxin [Mass/volume] in Serum or Plasma 0.9-2.0 L [facility] ID Date Data Source [id number] 02/10/2020 08:47:45 PM [facility] Value Range Interpretation Code Description Data Sudha rce(s) Supporting Document(s) Albumin [Mass/volume] in Serum or Plasma by Bromocresol green (BCG) dye binding method 4.1 g/dL 3.5-5.2 [facility] Bilirubin.total [Mass/volume] in Serum or Plasma 0.6 mg/dL <1.2 [facility] Bilirubin.direct [Mass/volume] in Serum or Plasma <0.3 [facility] Alkaline phosphatase [Enzymatic activity/volume] in Serum or Plasma 93 U/L 35-104 [facility] Aspartate aminotransferase [Enzymatic activity/volume] in Serum or Plasma 54 U/L <32 H [facility] Alanine aminotransferase [Enzymatic activity/volume] in Seru m or Plasma 81 U/L <33 H [facility] Protein [Mass/volume] in Serum or Plasma 7.0 g/dL 6.4-8.3 [facility] ID Date Data Source [id number] 02/10/2020 08:47:45 PM [facility] Name Value Range Interpretation Code Description Data Sudha rce(s) Supporting Document(s) Bicarbonate [Moles/volume] in Serum 26 mmol/L 22-29 [facility] Chloride [Moles/volume] in Serum or Plasma 106 mmol/L 98-107 [facility] Creatinine [Mass/volume] in Serum or Plasma 0.56 mg/dL 0.50-0.90 [facility] Glucose [Mass/volume] in Serum or Plasma 92 mg/dL 70-140 [facility] Potassium [Moles/volume] in Serum or Plasma 3.9 mmol/L 3.4-5.1 [facility] Sodium [Moles/volume] in Serum or Plasma 143 mmol/L 136-145 [facility] Urea nitrogen [Mass/volume] in Serum or Plasma 8 mg/dL 6-20 [facility] Anion gap 3 in Serum or Plasma 12 mmol/L 8-15 [facility] Osmolality of Serum or Plasma by calculation 293 mosm/kg 275-300 [facility] Creatinine/Urea nitrogen [Mass Ratio] in Serum or Plasma 14 [facility] Calcium [Mass/volume] in Serum or Plasma 9.1 mg/dL 8.6-10.0 [facility] Glomerular filtration rate/1.73 sq M pre dicted among non-blacks [Volume Rate/Area] in Serum or Plasma by Creatinine-based formula (MDRD) >6 0 [facility] Glomerular filtration rate/1.73 sq M pre dicted among blacks [Volume Rate/Area] in Serum or Plasma by Creatinine-based formula (MDRD) >60 [facility] ID Date Data Source [id number] 02/10/2020 08:47:45 PM [facility] Name Value Range Interpretation Code Description Data Sudha rce(s) Supporting Document(s) Salicylates [Mass/volume] in Serum or Plasma 3.0-30.0 L [facility] ID Date Data Source [id number] 02/10/2020 08:47:45 PM [facility] Name Value Range Interpretation Code Description Data Sudha rce(s) Supporting Document(s) Thyroxine (T4) [Mass/volume] in Serum or Plasma 7.8 ug/dl 4.5-11.7 [facility] ID Date Data Source [id number] 02/10/2020 08:47:45 PM EDT [facility] Name Value Range Interpretation Code Description Data Sudha rce(s) Supporting Document(s) Thyrotropin [Units/volume] in Serum or Plasma 2.140 u[IU]/mL 0.270-4. 200 [facility] ID Date Data Source [id number] 02/10/2020 12:09:22 PM EDT [facility] Name Value Range Interpretation Code Description Data Sudha rce(s) Supporting Document(s) HCG,QUANT PREG <1 mU/mL [facility] INTERPRETATION:LESS THAN 6 NEGATIVE 6 - 10 BORDERLINE (SUGGEST REPEAT IN 48 HOURS) APPROX HCG RANGE WEEKS POST LMP 11 - 130 3 - 4 WEEKS 75 - 2600 4 - 5 WEEKS 850 - 18130 5 - 6 WEEKS 4000 - 377087 6 - 7 [id number] - 721334 7 - 12 XMFSE97059 - 192696 12 - 16 WEEKS 1400 - 33357 16 - 29 WEEKS 940 - 19689 29 - 41 WEEKS ID Date Data Source [id number] 02/10/2020 11:52:19 AM EDT [facility] Name Value Range Interpretation Code Description Data Sudha rce(s) Supporting Document(s) SODIUM 140 mmol/L (136-145) [facility] POTASSIUM 3.6 mmol/L (3.6-5.2) [facility] CHLORIDE 106 mmol/L (100-108) [facility] CO2 29 mmol/L (22-31) [facility] ANION GAP 5 mmol/L (7-16) L [facility] UREA NITROGEN 9 mg/dL (7-24) [facility] CREATININE 0.55 mg/dL (0.60-1.00) L [facility] BUN/CREAT RATIO 16.4 RATIO (10.0-20.0) [facility] GLUCOSE 93 mg/dL (70-99) [facility] CALCIUM 8.4 mg/dL (8.4-10.2) [facility] GFR >60 ml/min/1.73m2 (>59) [facility] GFR ( AMER) >60 ml/min/1.73m2 (>59) [facility] GFR INTERPRETATION [facility] --NORMAL KIDNEY FUNCTION OR MILD DISEASE - GFR >OR= 60CHRONIC KIDNEY DISEASE - GFR 15 - 59RENAL FAILURE - GFR <15 Est. GFR calculation based on the MDRDstudy equation, which assumes a steadystate for creatinine. Est. GFR should notbe used for medication dosing. ID Date Data Source [id number] 02/10/2020 11:40:27 AM EDT [facility] Name Value Range Interpretation Code Description Data Sudha rce(s) Supporting Document(s) WBC 8.1 10*3/uL (4.1-11.0) [facility] RBC 4.42 10*6/uL (4.00-5.40) [facility] HGB 13.3 g/dL (12.0-16.0) [facility] HCT 39.7 % (36.0-47.0) [facility] MCV 89.9 fL (80.0-95.0) [facility] MCH 30.1 pg (27.0-32.0) [facility] MCHC 33.5 g/dL (32.0-36.0) [facility] RDW 13.0 % (10.5-14.5) [facility] PLT 283 10*3/uL (150-450) [facility] MPV 8.0 fL (7.1-10.7) [facility] NEUT % 62.4 % (35.0-75.0) [facility] LYMPH % 29.2 % (16.0-52.0) [facility] MONO % 6.9 % (0.0-8.0) [facility] EOS % 0.9 % (0.0-5.0) [facility] BASO % 0.6 % (0.0-4.0) [facility] NEUT # 5.1 10*3/uL (1.8-7.7) [facility] LYMPH # 2.4 10*3/uL (1.2-4.8) [facility] MONO # 0.6 10*3/uL (0.0-0.8) [facility] Eosinophils [#/volume] in Blood by Automated count 0.1 10*3/uL (0.0-0 .5) [facility] BASO # 0.0 10*3/uL (0.0-0.2) [facility] ID Date Data Source [id number] 02/10/2020 08:48:36 AM EDT [facility] Name Value Range Interpretation Code Description Data Sudha rce(s) Supporting Document(s) ED Provider Note [facility] QVYFKm7pJqCILaJz78/RLZilUBTed3AzHWdvXAa0FXkpOLUvK5YeIBG7iH4oOBR2ZDjLTsDjHxNsOWX2 lbm [file] 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 [file] 0K ID Date Data Source [id number] 02/10/2020 01:37:00 AM EDT [facility] Name Value Range Interpretation Code Description Data Sudha rce(s) Supporting Document(s) ED Provider Note [facility] ZWYAPl3gVhWOUvBg49/UPYzePXZjf6HgKVonCCa1GPaqNRQtJ7IyTRV2uJ3jZDQ8AZeQKmAhXrUhOIB3 lbm [file] ID Date Data Source [id number] 02/08/2020 08:06:10 AM EDT [facility] Name Value Range Interpretation Code Description Data Sudha rce(s) Supporting Document(s) EKG [facility] [file] GmAG7mmOxFR7ALMsFy9dDBwy1nwzQ0p0J+[facility] [file] [id number]/birth certificate clerk [file] 9yHuVfN62TwFlrtbqOirpfFAEFKDRVvpmuYgfiqIHV WQTFjrjsLqqxeQAOFAZTnlhbDcdxiPACTIZFlqjoPizrkLYGTXCYD7C7cDR9B+lHC5LmOINgXl/nomvR /sJNNCwdsQrGPjjBv7pwgMHwowSPriweKKAv4tNcs61hwPGUWsFcaLsJjmMvGATA4ykgS7yrPQ7mAE7I uLK+0bQ/MEwqkpnVS0o0QX3BsTQUKEQq+o7BXVEbbz yNNqqFDaqSri4wibtSI99665oYy965OiX6XM4y5EIxYOYfrJQmYND9SCKEPWVWIQAIBXLoosk77a/wAC /tDXDQSr8OIw11LGGRBHS2PDVXMRAGVITlY+SJ/7j07AUqhKYNM8Uz4HXHOMBw/er6r0T/kAad/16xf+ vdwqltybU2GnfwrkepKKVLJtQrwdgMlohjTU+SJ/9c 72CITRA72CteDqjFMRGJCPAe43YRgI3E6B/wAgDTv+vWL/SOKWH9PL3GHjabjlzcyJAESUXFTPYKLEIB UEvY+SJ/2AXQ8WTrJYShhZ9CEFJDJCw+9X1Von/IA07/r1i/9JGNYGBTK0Eunj1XDYgp7ZeihrZAXRHQ FFFFABXyRP/rm+patkKPDs5wU6WZPYsgDamFRWMWnc QU8XhIuj/wBesX/oIq/WNXs4YfzMXYXZfRBUCDSlts5/AMhJ/eIknu5fugdwjpR/AIcjrKKKKzPKCiii gAooooAKKKKACiiigAooooAKKKKACiiigAooooAKKKKACiiigAooooAKKKKACiiigArnvBv/ACBLn/sK 6l/6WzUUUAdDRRRQAUUUUAf/3W2ZGQ9lz0WdJFChDR anatLuTjwXJiF1ABDux3YiBIz8PN3LzKHgT20bdzT3kV5EUQzmGotir9FlBQQvPsrheXAlX8HrQTKiOP Mqk6RdZ8dqhfo2nHVpUTH+Tk3Yj9TaGGNdNZb9nY2YARiAJVPWd7H/dAP5xDquY5nPwTvXvHz0AUbafW axEeq/j2TzweDRmsizaykUqRYPFQZJhHWKCMGlItzr dbaYSVFMgDExhWFkHm3zCZaohLm3JiFNkWycYPT1oyr4AqWGDX+EN2HT580QxYEsdQbpuY6lX7JtHukP pc1ljr+HoOwHdgwalS19TczEdFM8lHsdjQGOdr5Ab6wdROcd1BKKx3+3SLiBrEuwjeu2Oxj/muvJ2Cxl A0C8PfuFFoCEKfPuRFF5veGzqR5LAE3rn3XaZHssXZ JeCD6bzb6XMEjoUHUcBQWgWVGq/y6GMMKrNRIIghXqNRROheUbLVVAdsQeFB9DDpOfNDpHUzVoGMBOAh MfBEZHXVRoQGSVGCSmQIjsW4WmRZA7x3Xz/d6VJRGtHTZPgqPoSLHFahWlFKLAqhXxII7WXbMlNDdSIs NmWTHEXoStIATYWXTzOKXUTTGmVMmcX9WxGXW7hL7c EGN9HZtHRrJgBzPoGCZ0AXHuDzL6VBHlRP5gDMM5RIhLYrJlVhCsMEL2KJAoAaK0EIG+Ri8KPU3xf0Yg OHqiDTNgZI0lec6DVjYeDVOzJA0RLP7px4ZzYJosVIUfKE8upt7JRbZmELRcWW4LJB9fp8IoBUufUSOk DE8gvx1LSKxcDMfnXY9BTcHuC7AklzKxScVhH8dqMX M1WSWjBY9Sq405BKLeYXBJE4wxSp9uUYyfMXXFA9yTJyl9DLSXD8ISQrJbXWJ4CdU4IKWWI1K5ZVOgQA H4OJz4OW81WXX2UFzWEpKvLjG7WIn7Ytn4RUCALgGoVDKIJGM8PDX+IHLsTfjcnEJoG1CrEJLjHDPcx4 IuU5grgda0iPX0XF8+OCodrUFeMC6OBkgmG1PQek// KNBwVOAMsKeUGHbRCDDfMZH5Q6zgFhDMWP3rbcKbREPUObDEAaWNCZRUW0RyudXUSLzynM9SibhtIucW Byf7vGOdZyEitRZsFLXFKBW0QlBPNnVvDUO3ykInnD8FSX0ci2FiRBa7imDiMTraXPGcGPceNTDlDBXl FRMmFTR2KFD3ZUHEZkDvNBUvNTSkPFgdWDTrSHJghv 9OOASlQJDoCJFlETFgPIZfIWBwXZuqXOUsCHCiQLlhMFSqBBViCP5IDpHjKCDtTGV4GAYuORXsMFJyme 1VTGXyRKJrAStlLHHmFZBmPQSuWYfpSJEoPLQeAWAiTNOrPUEkFN7FNvMwMPTzRKUfCLRrPVKmKVGygd 9XJNZeUXThZDCgNjNrJZDaZWSwJRovGCLlHXGdLZU4 OBEuVAMmVE0CEmSrMSIrLYDuJZDzXhD8DcBgWr2GSYYjIAAcCLPcFjC9ZOEbOQZkKMwuQENcOHCvTLZl DHY1YXX3ZNHBPzCdOGAgOHEqJQIjHuR3GeXvZh4RCNNuAZOlQRNvLKS1GITaTELgBTlgGJJuPEZwIXW4 ASN0CEG3KMEZKiNeONDwHCJgXEyaTnF5GnKbAo6BVJ GjSVLwXWSbIST3OBJoZFCnUEgvOIAkLYd8JdkkTOJpVBRaRU1AYqNzEGSlXVA9OBnoCIQiDGBeey0ASJ UiLUB5HCInFZOjIWVyTGWbWRvdBZXdSOz6LENsBFHfOAAxSU4PIbEcNDimZETQJiy4N1EszwOoUyUjHn 4nmITyOTMrXa3XlzBdGCX0AJFkRr2ZITm9RVU8NJoI UyBwKqT5MXp9Rbv0ZXICUqAkUOJIJGO5DBW+QLURLTS8AlDfRuZyMNU8RLu9AXDqCTp0HYWVXDowEHsd Ds7xHk6IFgS3TBI6tEHsUu2WIUs4BYJ2HApqLAIOIi7ByDOvZh9MHWTkBTg5qwIqxAYeVUm4MO0JrOqi BVOnA7Qcy0VzQJGwXUTtNH9scuWhTEXsCCWsTCPpHL IAJOC2VfIoTgGnWIM2GVb5QAYoHGb8KZXPSOadEHjxGtx9UMRZG7NRYiEwUIS9JuB2RRQFB4I5SAMkMH U1MDu4FX8aVD5CbmC9LAK9HCysUO3DMcOvQ7DjCAY8ONN3UQ1+KNnzqOXefLwzFREFQvR4HsWgKh9IEA VFT0Y= ID Date Data Source [id number] 02/07/2020 11:07:56 PM EDT [facility] Name Value Range Interpretation Code Description Data Sudha rce(s) Supporting Document(s) Consultation [facility] WOZZJk2jHkCAAsUf87/UAFpfKHNjp0PoWWksLSg4FSspUOWbR4QnPIU5tD1uJJV3NJbOXpTaMpFcBED0 lbm [file] VysLzpURYXPuo2FPMXJiQyBP8XQWa= ID Date Data Source [id number] 02/07/2020 03:27:00 PM EDT [address] [address] HEALTH INFORMATION MANAGEMENT ED/[facility] Physician Report : [id number] Signed Patient: Amy Carranza Acct:[id number] Unit : [id number] : 1995 Arrival Date: 02/07/20 Age/Sex: 25 [...] Normal Affect Skin Skin exam: Dry, Intact, [place] and Warm Course Vital Signs Vital signs: [...] 02/07/20 1527 Signed by: Darlene Winslow 02/07/20 [id number] Candice Arrieta MD 02/07/20 1846 Name Value Range Interpretation Code Description Data Sudha rce(s) Supporting Document(s) ID Date Data Source [id number] 02/07/2020 03:00:00 [place] [address] Patient Name: Amy Carranza Exam Date: 02/07/20 [...] acute cardiopulmonary disease. Professional interpretation performed by [facility] at [facility] . End of diagnostic report: [id number] Signed: Taurus ePpe MD 02/07/20 1517 Interpreted by: Taurus PepeTranscribed by: Taurus Pepe Name Value Range Interpretation Code Description Data Sudha rce(s) Supporting Document(s) ID Date Data Source [id number] 02/07/2020 02:34:22 PM EDT [facility] Name Value Range Interpretation Code Description Data Sudha rce(s) Supporting Document(s) EKG/ECG IN ED [facility] [file] 8Lxbst4YWvmAH7S12Li7yVZw2mj2mXgTa1Lg6REtRlFtoR2/umJ6fgK2m32Pclyu3tlOScG+Rachid+GNL/ a0bWyTbukaDdzkNqrGgI4WM7ZwoMcaZt7W+AIS2hQ6 misYbi+iBvcfhwCo4yQzUWV03HZKS4kRPeqcW/cNcArwU11e8Ely8cyFw5eF7gD7UPfa0HjBGRowbuyz CMZ41CvsVKVdy1s/cOgSYMg2aO70VXqU1q37Nmhxn1dsXQltJ/AmC5WHxPc8UPsgmpSmfHhhmpnwV6cn 930SuKQ9d/qWqPC85niUMb4OB61i+1gHCGmX43QTYi qoxH+9tUYlryjXhsYydoDebjitfjNWg9dUm0rC5YJJVhmxaplV9ij316IZEvfToqnuiNhnssA17JhCGx K/vWGRV6QVpi1iDAsqHyvjslSeqroG51WYIFVqnS/nBsMJ4CVpf5lmwW9x2hi6OgpIcZVd0+qXcNjbzs kfxa1LLbakB0XHk6/jnqyzu7A9pV7lyblhLipUpsba x8ukUNeCIyS3zxYq2eJdZLzC+1E3z0wtcyU4gSrzseJvJqqcQsN2NkAW+kkOgeh3dW2Il2MXovcEttDv CulRM+V+5xGV84vd139PLOkq2re8YKoPNrmfZ31URubnE/oBcGwcI03i1ZVq9EkXwdX5VZwMr6SWhxaw SomfK/fKxIF8FQrc9vPT/wBKg/zYwMCNr5nR49KZdg +V+6iOUzyevTnpTBgqcR/itjbE9ujNcwBnhizu6/uUzONXO97DmoJ2SAi/IDOMhfmM53a8Tsn1Xnov22 Ckwr3ruhMepM+cQtV4q81Dhwbz7xhVDh189gwZwOmS0ZGQoTqJnf69+2tGJfspiEcqHO47dsIkXLzlzQ dtfAg6eZYjzGYDIDDEHMMXUKBQHJKCCEPFWXCFVNVR ABRRRQAUUUUAFFFFABRRRQAUUUUAFFFFABRRRQAUUUUAFFFFABRRRQAUUUUAFFFFAHN+J/v23/Av6VgU GNaqh5PR/DQUUUVRuFeTfG//AFOi/Wb/ANkooqZbGNf+Eiy7vcelhlaqbtmJ0P+Cn/Id1H/r2H/oQr2u lqqJ5Bd5i5HXWJAQvqXy9mc/EITav4j/9kooqZbGNf 0Lyc2puherW5wQKHNHVLQmi/yHdR/69h/8AC8jbmtSIq1uW+YBAVUCO6V4I2t/YPM6K8Ox/ZKKKmWxjX /rd5kckexC1yBioznervnKI/kO6j/17D/9QU2DZJCi8BOw/hKTJntkzFcwve32/pIm6M1ld+yUUVMtjG v/DG1wQ3fFPQszCGARXYancFR/AJDuo/8AXsP/AEIV 6WPVCpqz2lA8AXvilrJxtci60/6nRfrN/wCyUUVMtjGv/LA26SPAMOvAQINYnZHHbt/yHdR/69h/6EK9 rpsvFXh3GT+OKSEYJW1L5T7u/oIR3R4Ub/ZKKKmWxjX/AIbPHaWiiszzApKKKBHqHwU/5Duo/dMJrN5V 6ED1YIKKkdl29I5CMyeswkepI3/Df/ISf/mqo2akmz exjX/iwKoeuqnW7yKUWWGBrnjmYcextMIWISOAyvlrHhrwtNWOQLGZnksqFmsatDXVDIQLbtjwRkoptS KKKKACiiigAooooAKKKKAP/7dWYtPuYMR3tjGedB9YRA2qx6NfIZrlHlVxQI8rhx3SOFkjVVlcCU8URp tSwD7fFwL0U4LrhaW2RER8G0NkuCOucc4JrIQ9DJAz B41eVL9AOH2hwNeqUKtnCp9ORlI2htKhzL6JuZvooEGJyrAGxAdK/2EcH5WTAnyR8NVXBeecsFAMptGT sRHqv2+ZZbW2L0O56741OuvyVYurGnKMFvzFuekUpCsxPXSrrolehKsNxlBgfMMKVdkCyTjqvwMOCGl2 lsachW1ETUa/gGOyzPe+P5QOaQVEnxKXfUoBwYmcQM XNZY6/hpGDAfwonXWzfIZb0HAPqahzAC0Vso1gFE3IiQdwg+GX3WhabQkfrBzsAY1miYW1X7c9Z/Fm8R UW892WWX5CYEqcefAtsDMsYQ1OJyUwLM7msg4CJAjkOJPlSyzXZlk4D9Say6J6P1FgWJ2/LU3AvOEnXN TRsyOrHB3IDuH7DE6DPKINXFBBDqVyEQHJMSItDRwZ anJsNAYENBTmDFDEFCE8GH7DceFghI0zSA7/LE5KaTKhTUABciJgRB7VIqO4RX6MBIJQDZRZLdNdAATG KIHwMLtRjwMmUPQSYRNaSQMBLZE0KR9TfhRyaFllfgWxgYHhNUetBBWuBKdcZOT0YifqNVhwY21qZOVe uGAnSSnhTWGrQAfqLFW1MycsYAwsAt4KCiCcQV8mju 2AEWccJAGbIbmAXykcOdMcJSEHVgEcBP7udv6DYdUsPFJgXnkFXvafUvIuNQGRBlMwQB5heh3BBmRuUV EjEbsWOgl5H2Q2jMUnPWJuSw4SqGsnSQHnF0siZTRrSPHfENKxNr1cxFDwVFOyFl8SrcDsXTL0TBVoRr 8GJOb1KPA2F1Y8GOFrVEY4TdB9Qid7JcG5KcKHTeY5 VtH7UiU+MPM2HnhTLoAaTRymHZDLOMA1KeM5LMJ9WuYFPNX3KVZdUa7zZ5RcsJWtiz6NmIV3DYRbO57e NZ9UOI9mhOfbQFy+Kk0Ma8OkGDYkYUt5lVYyDWN//fiWtAQIW7ukiWAbrCYtHBPGnX8YJT4FHvzRNGxL T8snxLLhcVlFNVupKWgIVfZHRNLRwqQCxTLDzb5Lff fv7E7WjoOxmUtRBODdUHAEqoyyBMbjqhGopEJsVI8CJpVvDS5dtv8JsBVjTi3QULYyAu0CMXBlOWNpBS ThDCW0RQVyGLEtQNqyGEZpORNlVZD6XZJfPIImSV9DFmIrOYIsXQTeYpVuTYLrLMNnlh0TZGKjGSIzNL F0XKGiTPAtMRLfGRykUFCaOVOqPISpHIFmYROuCH7L CmJjEIMjGPC9XyEjKSEhIFJyjo5LRRQdRXLrYTebUrOmSZWsVZNrZTeqTASoQOClSYC9XMCqJUTjDZ7C WiOxOBFuAMUwVsvjXIAlJCTcta9CXPOrFRNuUMO3LZZbYLVkHIDyXUoeZMQaUPNhCHUnDAM8VSS2ARAN FaOiFYJsAWCtJKNvYpN0BzSgGy2ZGIGmLXVhKNHaXh P4HBWmKCClAMdsVJMgWLZxAHV2SAG7YBM2PIFKIgVyTTQoBAKcGVJzFwX2DvZaNe4XKPKpRMLcANOiLc V3RIWmGGByXTueGLIqVWCvMTG1ENX7MFJ8CPLPWcJePDQrOPKdTHKzSjH8MmUpKe4VDWLxSBUvFsw0So ReWKLnFAAwFSdxADKxFfNyWDKlQPTdCMStSA2REoQv PDEbXCGuIShaRVYgEEIiza4ZYZKqVMEqWqCmSaTkFHAdHFMyYOu1zcUrrKPtSUh3OA5ShUicNTLxX0Jl q9KxTMWqWHXhOK8vwoXyDJKmPAKoZSYcAFA2XdiYClZhWNjaVWPBCOA2KdA8EXT0VlYRFWW6UDQlPwt0 LyN7ZFOWJxF4EjRpEEQRNYDFQYa2SFI1RHvWBuFMTL 5dID4+BQgprYEalTboRRJRGpKgKlWuCQ1GAHNHF3MNGgtyGGTYCqDmAQ6UiSXwvAtobf7IACkhF7d6FG EqNq9Sd845IUPyIDNRL5qrVo9vXCwqBUZVF2tYZyl7SgJ4TTKKRlE2XrPgZENHTMDXUNv3OZX1XZeZEa LMYB51LIZ3R7P4MZDpIEI3ZbS3Sde0ZeH2KuLKVnX6 OkG4MxY+IAZgSWBnqeMaIFY8ZTCqEQLlBvK3sUKiJTCrBSP+Qs3Pw4NgacO8bbGwVOafGUIkBQDTVeBy RU9G ID Date Data Source [id number] 02/07/2020 02:34:00 PM EDT [address] [place] [address] Patient Name: Amy Carranza Exam Date: 02/07/20 : 1995 CC: EKG/ECG in ED Ordering Doctor: Candice Arrieta MD Attending Doctor: Candice Jiang MD CC: EKG/ECG in ED APPROVED REPORT ECG MEASUREMENT Heart Rate 80 AXES WY 155 P 45 QRSd 100 QRS 62 QT 355 T 47 QTc 391 INTERPRETATION SINUS RHYTHM WITH OCCASIONAL VENTRICULAR PREMATURE COMPLEXES BORDERLINE ECG <Conclusion> SINUS RHYTHM WITH OCCASIONAL VENTRICULAR PREMATURE COMPLEXES BORDERLINE ECG End of diagnostic report for accession: [id number] Interpreted: Candice Arrieta MD 02/07/20 143 Transcribed: Signed: Candice Arrieta MD 02/07/20 143 Interpreted by: Candice ArrietaTranscribed by: Candice Arrieta Name Value Range Interpretation Code Description Data Sudha rce(s) Supporting Document(s) ID Date Data Source [id number] 02/05/2020 09:39:34 PM EDT [facility] Name Value Range Interpretation Code Description Data Sudha rce(s) Supporting Document(s) ED Provider Note [facility] CZHFTl9kYnOWHiRx00/GRHmvQXOux7OoZYjrFHi7GBcoEOJwQ1HlQHM8rL2nHRG0SYrEIfXnIqGuEXXs lbm [file] x0dcT5kVtNRzEKfaY9Po9pPCElFRoeNyqZv39xdBc5+zM2+eO087n9B3odInLVi35TNaXR09/vp respiratory/3I3n [file] D7FK2cQNNXAg4+XKxkgNFeyMwkWQKVNhG7Epu0SUbbJMODXc4P ID Date Data Source [id number] 02/04/2020 02:30:00 AM EDT [facility] Name Value Range Interpretation Code Description Data Sudha rce(s) Supporting Document(s) Reported Physicians See Note Reported Physicians [facility] ([facility]) Note: Reported Physicians:Ordering: Harriet Duranending: Yaakov Almanzaritting: Carlos Almanzar To: FABIAN BOWEN ID Date Data Source [id number] 02/04/2020 02:30:00 AM EDT [facility] Name Value Range Interpretation Code Description Data Sudha rce(s) Supporting Document(s) COVID 19 (RHEONIX) NOT-DETECTED COVID 19 (RHEONIX) [facility] ([facility]) Note: The RackHuntx COVID-19 MDx Assay is an endpoint RT-PCR assay intended for the qualitative detection of nucleic acid from SARS-CoV-2 in nasopharyngeal swabs. COVID testing using the RackHuntx analyzer was developed for the purpose of [...] (RHEONIX) 550.2865 (A) ID Date Data Source [id number] 02/04/2020 02:30:00 AM EDT [facility] Name Value Range Interpretation Code Description Data Sudha rce(s) Supporting Document(s) SARS-CoV-2 (COVID-19) N gene [Presence] in Nasopharynx by EDUARDO with probe detection [facility] This lab was ordered by [facility] and reported by [facility]. ID Date Data Source [id number] 02/04/2020 08:39:00 PM EDT [facility] COVID Reason [place] Admission Priority Name Value Range Interpretation Code Description Data Sudha rce(s) Supporting Document(s) COVID 19 (RHEONIX) NOT-DETECTED NOTDETECTED [facility] The RackHuntx COVID-19 MDx Assay is an en dpoint RT-PCR assay intended for the qualitative detection of nucleic acid from SARS-CoV-2 in nasopharyngeal swabs. COVID testing using the CoverMyMeds analyzer was developed for the purpose of [...] public health authorities. ID Date Data Source [id number] 02/03/2020 09:49:00 [place] [address] HEALTH INFORMATION MANAGEMENT Consultation : [phone] Signed Patient: Amy Carranza Acct:[id number] Unit: [id number] : 1995 Loc: ED Room/Bed: Age/Sex: 25 [...] Tenderness Extremities: negative Edema and Tenderness Skin: director data management reviewed and agreed with; negative Lesions and [...] % (Auto) 69.4 Lymph % (Auto) 24.4 [place] % (Auto) 5.3 Eos % (Auto) 0.1 Baso % (Auto) 0.3 Nucleat RBC Rel Count Not Reportable Gran # 10.16 H Lymph # (Auto) 3.6 [place] # (Auto) 0.77 Eos # (Auto) 0.02 [...] Urine Color Urine Appearance Urine pH Specific [place] (Man) Urine Protein Urine Glucose (UA) Urine [...] MPV Gran % (Auto) Lymph % (Auto) [place] % (Auto) Eos % (Auto) Baso % (Auto) Nucleat RBC Rel Count Gran # Lymph # (Auto) [place] # (Auto) Eos # (Auto) Baso # (Auto) Immature Gran # (Auto) Absolute Nucleated RBC Immature Gran % Sodium Potassium Chloride Carbon Dioxide Anion Gap BUN Creatinine Estimated GFR (MDRD) BUN/Creatinine Ratio Glucose Calcium Total Bilirubin AST ALT Alkaline Phosphatase Total Protein Albumin Globulin Albumin/Globulin Ratio Beta HCG Screen Urine Color YELLOW Urine Appearance CLOUDY H Urine pH 5.0 Specific [place] (Man) 1.015 Urine Protein 100 H Urine [...] charges for this visit?: Yes Inpt Consult [id number] Cons Level 4: Yes Signed By:Huber Hamilton Jr, MD <<Signature on File>> Signed Date/Time: 02/03/202151 Co-Signer: Co-Signed Date/Time: Initializing User: Huber Hamilton Jr, MD 0 02/03/202148 48 48 Name Value Range Interpretation Code Description Data Sudha rce(s) Supporting Document(s) ID Date Data Source [id number] 02/03/2020 08:25:00 PM EDT [facility] Has Patient Fasted For The Past 12 Hour s? N Has Patient Fasted For The Past 12 Hour s? N Has Patient Fasted For The Past 12 Hour s? N Has Patient Fasted For The Past 12 Hour s? N Name Value Range Interpretation Code Description Data Sudha rce(s) Supporting Document(s) WHITE BLOOD COUNT 14.65 10^3/uL 4.00-10.50 H [facility] RED BLOOD COUNT 4.60 10^6/uL 3.90-5.20 N [facility] th HEMOGLOBIN 13.8 G/DL 11.5-15.6 N [facility] HEMATOCRIT 41.3 % 35.0-46.0 N [facility] MCV 89.8 FL 80.0-100.0 N [facility] MCH 30.0 PG 27.0-34.0 N [facility] MCHC 33.4 G/DL 32-36 N [facility] RDW 12.3 % 11.5-14.[address] [facility] PLATELET COUNT 359 10^3/uL 130-400 N [facility] MPV 9.9 FL 8.7-13.2 N [facility] GRAN % (AUTO) 69.4 % 42.0-75.0 N [facility] LYMPH % (AUTO) 24.4 % 20.0-51.0 N [facility] MONO % (AUTO) 5.3 % 2.0-15.0 N [facility] EOS % (AUTO) 0.1 % 0.0-11.0 N [facility] BASO % (AUTO) 0.3 % 0.0-2.0 N [facility] IG % (AUTO) 0.5 % 1.00-5.00 [facility] IG # (AUTO) 0.1 10^3/uL <0.5 [facility] GRAN # (AUTO) 10.16 10^3/uL 1.50-6.50 [facility] LYMPH # (AUTO) 3.6 k/uL 1.0-5.0 [facility] MONO # (AUTO) 0.77 k/uL 0.20-1.50 [facility] EOS # (AUTO) 0.02 10^3/uL 0.00-1.10 [facility] BASO # (AUTO) 0.05 10^3/uL 0.00-0.20 [facility] ID Date Data Source [id number] 02/03/2020 08:36:00 PM EDT [facility] Has Patient Fasted For The Past 12 Hour s? N Has Patient Fasted For The Past 12 Hour s? N Has Patient Fasted For The Past 12 Hour s? N Has Patient Fasted For The Past 12 Hour s? N Name Value Range Interpretation Code Description Data Sudha rce(s) Supporting Document(s) HCG QUALITATIVE SPECIMEN SERUM [facility] ID Date Data Source [id number] 02/03/2020 08:44:00 PM T [facility] Has Patient Fasted For The Past 12 Hour s? N Has Patient Fasted For The Past 12 Hour s? N Has Patient Fasted For The Past 12 Hour s? N Has Patient Fasted For The Past 12 Hour s? N Name Value Range Interpretation Code Description Data Sudha rce(s) Supporting Document(s) SODIUM 141 MEQ/L 135-145 [facility] POTASSIUM 4.4 MEQ/L 3.5-5.3 [facility] CHLORIDE 105 MEQ/L 94-110 [facility] CARBON DIOXIDE 28 MEQ/L 22-33 [facility] ANION GAP 12 5-16 [facility] BLOOD UREA NITRO 11 MG/DL 7-25 N [facility] CREATININE 0.7 MG/DL 0.6-1.4 N [facility] GFR > 90.0 ML/MIN [facility] Stage G1 - Normal or high kidney functi on The GFR is an estimate of the Glomerular Filtration Rate. It is an aid to assess a patient's renal function. It is not a conclusive diagnosis of kidney disease. GFR normal is >=90 The MDRD GFR calculation is considered valid between the ages of 18 and 75 years only. BUN/CREAT RATIO 15 8-36 N [facility] GLUCOSE 95 MG/DL 70-100 N [facility] CA 9.6 MG/DL 8.7-10.5 N [facility] BILIRUBIN,TOTAL 0.6 MG/DL 0.1-1.3 N [facility] AST 47 U/L 5-40 H [facility] ALT 80 U/L 5-48 H [facility] ALKALINE PHOSPHATASE 108 U/L 40-140 [facility] alth TOTAL PROTEIN 6.7 G/DL 5.9-8.3 N [facility] ALBUMIN 4.7 G/DL 3.0-5.1 N [facility] GLOBULIN 2.0 G/DL 1.5-3.5 N [facility] ALB/GLOB RATIO 2.4 G/DL 1.0-3.0 N [facility] ID Date Data Source [id number] 02/03/2020 08:36:00 PM [facility] Has Patient Fasted For The Past 12 Hour s? N Has Patient Fasted For The Past 12 Hour s? N Has Patient Fasted For The Past 12 Hour s? N Has Patient Fasted For The Past 12 Hour s? N Name Value Range Interpretation Code Description Data Sudha rce(s) Supporting Document(s) HCG RESULT,S NEGATIVE [facility] Reference range is Negative "Extreme" early may have low levels of HCG present. If is suspected, repeat testing with a new specimen in 48-72 hours ID Date Data Source [id number] 02/03/2020 08:44:00 PM [facility] Has Patient Fasted For The Past 12 Hour s? N Has Patient Fasted For The Past 12 Hour s? N Has Patient Fasted For The Past 12 Hour s? N Has Patient Fasted For The Past 12 Hour s? N Name Value Range Interpretation Code Description Data Sudha rce(s) Supporting Document(s) SALICYLATE < 3.0 MG/DL 2.8-20.0 N [facility] ID Date Data Source [id number] 02/03/2020 08:44:00 PM [facility] Has Patient Fasted For The Past 12 Hour s? N Has Patient Fasted For The Past 12 Hour s? N Has Patient Fasted For The Past 12 Hour s? N Has Patient Fasted For The Past 12 Hour s? N Name Value Range Interpretation Code Description Data Sudha rce(s) Supporting Document(s) ACETAMINOPHEN < 2.0 UG/ML 10-30 L [facility] High levels of N-acetylcysteine (used t o treat Acetaminophen overdose) may cause interference and cause a negative bias in the Acetaminophen result. ID Date Data Source [id number] 02/03/2020 08:44:00 PM EDT [facility] Has Patient Fasted For The Past 12 Hour s? N Has Patient Fasted For The Past 12 Hour s? N Has Patient Fasted For The Past 12 Hour s? N Has Patient Fasted For The Past 12 Hour s? N Name Value Range Interpretation Code Description Data Sudha rce(s) Supporting Document(s) BLOOD ALCOHOL < 0.03 % <0.03 [facility] ID Date Data Source [id number] 02/03/2020 08:02:00 PM EDT [facility] Run: 02/05/20 0724 INTERFACED REPORT Name: Amy Carranza Age/Sex: 25/F Location: [facility] Acct: [id number] Unit: [id number] Status: ADM IN Room/Bed: 912-B Re02/03/20 Disch: Att Dr: Landon Almanzar MD Specimen #: [id number] Ordered : 02/03/20 Collected : 02/03/20 By: [...] rce(s) Supporting Document(s) OPIATE SCREEN NEG NEGATIVE [facility] Minimum Detectable Limit is 300 ng/mL. BARBITURATE SCREEN NEG NEGATIVE [facility] Minimum Detectable Limit is 300 ng/mL. PHENCYCLIDINE SCREEN NEG NEGATIVE [facility] Minimum Detectable Limit is 25 ng/mL. AMPHETAMINE SCREEN NEG NEGATIVE [facility] Minimum Detectable Limit is 1000 mg/mL. BENZODIAZEPINE SCREEN NEG NEGATIVE [facility] Mininum Detectable Limit is 300 ng/mL. COCAINE SCREEN NEG NEGATIVE [facility] Minimum Detectable Limit is 300 ng/mL. CANNABINOID SCREEN NEG NEGATIVE [facility] Minimum Detectable limit is 50 ng/dL. HEROIN SCREEN NEG NEGATIVE [facility] Minimum Detectable limit is 10 ng/dL. A ll POSITIVE or BORDER results are unconfirmed. Please contact the laboratory if a reference testing confirmation is needed. ID Date Data Source [id number] 02/03/2020 08:24:00 PM EDT [facility] Run: 02/05/20 0724 INTERFACED REPORT Name: Amy Carranza Age/Sex: 25/F Location: [facility] Acct: [id number] Unit: [id number] Status: ADM IN Room/Bed: 912-B Re02/03/20 Disch: Att Dr: Landon Almanzar MD Specimen #: [id number] Ordered : 02/03/20 Collected : 02/03/20 By: [...] Sudha rce(s) Supporting Document(s) COLOR,UR YELLOW YELLOW [facility] APPEARANCE,UR CLOUDY CLEAR A [facility] PH,UR 5.0 5.0-8.0 [facility] SPECIFIC GRAVITY,UR 1.015 1.002-1.035 [facility] PROTEIN,UR 100 MG/DL NEGATIVE A [facility] GLUCOSE, UR NEGATIVE MG/DL NEGATIVE [facility] KETONES,UR NEGATIVE MG/DL NEGATIVE [facility] OCCULT BLOOD,UR LARGE NEGATIVE A [facility] NITRATE,UR NEGATIVE NEGATIVE [facility] LEUKOCYTE ESTERASE ,UR MODERATE NEGATIVE A [facility] BILIRUBIN,UR NEGATIVE NEGATIVE [facility] UROBILINOGEN,UR 0.2-1.0 EU MG/DL NEG-0-1.0 [facility] RBC,UR 25-49 PER HPF 0-2 A [facility] WBC,UR 25-49 PER HPF <5 A [facility] WBC CLUMPS,UR FEW PER HPF NONE SEEN [facility] URINE EPITH MANY PER/LPF FEW-MOD [facility] CA OXALATE CRY,UR MODERATE PER HPF NONE SEEN [facility] BACTERIA,UR RARE PER HPF NONE [facility] MUCUS,UR MODERATE PER HPF NONE SEEN [facility] ID Date Data Source [id number] 02/05/2020 07:24:00 AM EDT [facility] Run: 02/05/20 0724 INTERFACED REPORT Name: Amy Carranza Age/Sex: 25/F Location: [facility] Acct: [id number] Unit: [id number] Status: ADM IN Room/Bed: 912-B Re02/03/20 Disch: Att Dr: Landon Almanzar MD Specimen #: [id number] Ordered : 02/03/20 Collected : 02/03/20 By: [...] rce(s) Supporting Document(s) ID Date Data Source [id number] 02/03/2020 11:10:48 AM EDT [facility] Name Value Range Interpretation Code Description Data Sudha rce(s) Supporting Document(s) Progress Note [facility] FTSQUb6xGuXNKzIf64/KULmdDDIuq6UcXWmwHEt4SNrfIAUnH9RaNBN9pV0cPJZ7CLzEWcVuRoBfRDUv lbm [file] TALIA+CLzgDSgboEc7tCPxRMEbRj2IYVNiNKEhVITlMRTdIMViSUJeDMLtFIUaKBSoDXYbGRSqHAQdICTt ICAgICAgICAgICAgICAgICAgICAgICAgICAgICAgIC CsTSUkTGPuABPyTHHuEZBlCFHdEEAgFQWpCQLeOC8QXHNqJWWfLIUlFUArUUBgIYOoFCGpGETbENEuMC AgICAgICAgICAgICAgICAgICAgICAgICAgICAgICAgICAgICAgICAgICAgICAgICAgICAgICAgICAgIC PbAZVxKMQqHDFxJU4PEIFmHKCtSPXpAIIjWUIsJCVp ICAgICAgICAgICAgICAgICAgICAgICAgICAgICAgICAgICAgICAgICAgICAgICAgICAgICAgICAgICAg NWYxQAQbBYLkIVOiMLAnCBUrBRVrAN0ZIFRxRTZtAKSsXKMmCRXjIXZvWRCiHZTyIFMmVKMaHQBjRPEf ICAgICAgICAgICAgICAgICAgICAgICAgICAgICAgIC ItBOPsVWPfZFCkGJJyDHKrACBdEEFgIJYgQJMdHQMyMK3EVJFmBNUnVAKhIUWfJACcDKGqDUXeDNCgKY AgICAgICAgICAgICAgICAgICAgICAgICAgICAgICAgICAgICAgICAgICAgICAgICAgICAgICAgICAgIC LuQJWnKJLbSIUjXGFbWO3TCFKoAVLeGUTqMKNwACSu ICAgICAgICAgICAgICAgICAgICAgICAgICAgICAgICAgICAgICAgICAgICAgICAgICAgICAgICAgICAg LNVqWKMoGMGrECKhGPHzCQUuSOEcMYOpMH4RPWUwJLQtCBHmAKLpUWHtPOMtXCNpGKEcVQHnITWaXXKd ICAgICAgICAgICAgICAgICAgICAgICAgICAgICAgIC FoASBvDTHgJIAwZEXsSVLrZBRaWIFtEQQxCXEzVJEcDTFwSE2ISLEgABAbOFOdNRTvHSLqIWMmVUXdVZ AgICAgICAgICAgICAgICAgICAgICAgICAgICAgICAgICAgICAgICAgICAgICAgICAgICAgICAgICAgIC BzCCBpTSHoFCFpJYNoKOCiOD6ROVDlGVHjFYMeYCYj ICAgICAgICAgICAgICAgICAgICAgICAgICAgICAgICAgICAgICAgICAgICAgICAgICAgICAgICAgICAg CIWcUAAsGSGbKNJpWOFjSTGrSVHuKFCxEPNqTB0WAYWtYPAjLNEkWRXrLPGxMBJiISTwLMBtGHZiCVPf ICAgICAgICAgICAgICAgICAgICAgICAgICAgICAgIC NmGBEpXEGwFQEdPEThSKExXCHyEWUfGTKuHIEeVUAnGCGjCWTdFR5AJK19cTYvp9D0NPTzTG2fhie/Pg 2LVFvoajRzcFGiYL7QExQoND5tph5IIbGnTQ6llz5DCAtMXlYnC1Y8pBXvLNIjROMPJyXeB82iFGwyQz 60WOqsOWCcUjVuZNj1Ri2NCbOeD4fdIUIfYtM7ELBk NnF2CIKaTwZ0RPMwAvIzKZXcDSZbNC2QFDIgC182gfKyOZ9IKu9CPhLjWE7aea8RBrJnBYHvVeaUSds3 UOyyDZ4KaMCqfSPxJdGtCRJHKbJzL2jmp4GrOiYpZAZZZUeoVK5Om1DcdIDmJSs+En7GLN9pj1GbISqa HxEmFC7mpo6AEJzFEuBjB5HqoFkuQPTpd9rhRRIuDC 7gxOHdOEO3IUFryNjwLBJMbMFbUZLzx44dWCFCHVRbkNI8RlJkFzAdPuQoNZW9QWFqQT5kSQwiDS2FMO C3GWwpCROaHXByH7vRNqDcFPYwCtJhvBahVN9XNvGuR6GthuEboYJhWGAlFGIGNm2+DQplbmRvYmoNCj ElMZApo3AjVJi6LE7HDXHpUEznWF6KOJBplQ3uFOif EF3YYbIoKQXxPCVKWbTgQ09gvURnVPu8A3NkJnLtDZYqJtjyLWQsXZznEaExRNLuQqOkTOykDQ1+ID4+ THuuGE4TZWxoogXwVKUhXw0VVKAuWFGeHV9nLZZcTCHrD4S1oJgbETNHJnAuS9chhqmeZO3hDKHyP043 cDzsomOzWQHdMSDxYz4KBRLeVMD5QDWplDFtRcCbUF NMOFfgDS8QxRCrNJE4xX2wYJrfECYlYKIzI3vMJyWuqArqLO73jVaazrBxhBWhVVg+Vx3JPP5vw2AlQB c2bbFiWQzmIJU3OMcuENYaHARjXVYkMBY5DQN3ZCJRLeSdSZDrXVRqYOjsRJWaNZBgfg0KGOUpTIMnWI GyYDGuGNFsODMwCMxtHNTqXXTeHiZiLTRlHWMeVY4U JoBaHTRaNQLjRVcjIKWzWQZivi2ZUCHsOJEpHSC8VpZsMIPnQEPtLZmqRZXiAMV2ArVdVWSaIOUxMN9D LsTqLGXwRYvuAeSvEMAqHGOlpe4UIQFbOKTrRSQePfOtDAPdVTZfJOscZEDrRAWpNAA4SPLcTZHqLO9X QtFbHZTsBXDmAiMiJAUnYKQwhz8VESFlNUNgEaC2Mh RdWYCeQTJxGWpsJOAqJKChBJPqEDUbQTPtLD5QAwRaEREwHAU3MUGhRZIfRIThdt3QISIvYPOgVDJdGQ LyTFDkNVPrEHysYVOpTMG3WGyuLAYcQRDkWO1TQtQuHIMdDVKzLXLmOITzBXKygp5LUEKlYOOcHpC2Gw PlBOToLRAjSYizTEYnJZK8EFHqYZTaEAJcAQ8LChHe FJLvQPq2YCYwJJEnMTArpq6NHCPsBKCxJjA0QMThPGFbTLVtZSnlFTLaOEA9GScyTFGmPCPdRK0XVxXb CCFpNdhmBhKqFOHcDSBpqi8UTFNuWOEvJYJ0KWHoCYOwLGGfLApaGCFhHAL1RmsaSWMtJCEzEQ0LKsCx QJYiAgPrQaVhGAVkWLOyos3CYGJdMRJuFDC9DZQsXC ByWSYdUAvcGYUuINMwCXMkSVMxBURfMM9CZtMtXRVxNzBdQQEtEPCzDVAuie8RCLZnZKNqPJM2IMGiDT CxOFNqKOgsWLEbKIGxHEEbLXZhWSShOX6NZmWhMGUiCaJvEhioLLCgBZTgkh7LMNBgMWLpFrX3VGWbEF FbUPQcTBlhPNKqMKIpHuJaFHCrMJLgLW5QVmIjQDqg PTLWAfa7VNhaZ1x1CISvUO7UT6Efd4UfGmSoMLRHOXbwEC8tecFeULYcMq3IK7jNXsayFEHaOjIiYNP2 KRVoS4BxRYLbXHSqW3B2FLYtJBKcCY5bQRJbC6D7KVHmFjWwNNU6YMNwCKG4ZwF0JgT3AfQnNjI5LgNp NA1XHy3SUqE1RAE7bRXrVg7QViU2CATSExRuVQ7FEMw= ID Date Data Source [id number] 02/02/2020 07:10:37 PM EDT [facility] Name Value Range Interpretation Code Description Data Sudha rce(s) Supporting Document(s) Discharge Summary [facility] ZNZHGy8bVeWYBjXg75/QKGvuVVCoh9FqZWuiBVa7JDxjEHPsX0SqOON9aJ6dZXE6VVeYOdKrItPnSPPs lbm [file] AgICAgICAgICAgICAgICAgICAgICAgICAgICAgICAg ICAgICAgICAgICAgICAgICAgICAgICAgICAgICAgICAgICAgICAgICAgICAgICANCiAgICAgICAgICAg ICAgICAgICAgICAgICAgICAgICAgICAgICAgICAgICAgICAgICAgICAgICAgICAgICAgICAgICAgICAg ICAgICAgICAgICAgICAgICAgICAgICAgICAgICANCi AgICAgICAgICAgICAgICAgICAgICAgICAgICAgICAgICAgICAgICAgICAgICAgICAgICAgICAgICAgIC AgICAgICAgICAgICAgICAgICAgICAgICAgICAgICAgICAgICAgICANCiAgICAgICAgICAgICAgICAgIC AgICAgICAgICAgICAgICAgICAgICAgICAgICAgICAg ICAgICAgICAgICAgICAgICAgICAgICAgICAgICAgICAgICAgICAgICAgICAgICAgICANCiAgICAgICAg ICAgICAgICAgICAgICAgICAgICAgICAgICAgICAgICAgICAgICAgICAgICAgICAgICAgICAgICAgICAg ICAgICAgICAgICAgICAgICAgICAgICAgICAgICAgIC ANCiAgICAgICAgICAgICAgICAgICAgICAgICAgICAgICAgICAgICAgICAgICAgICAgICAgICAgICAgIC AgICAgICAgICAgICAgICAgICAgICAgICAgICAgICAgICAgICAgICAgICANCiAgICAgICAgICAgICAgIC AgICAgICAgICAgICAgICAgICAgICAgICAgICAgICAg ICAgICAgICAgICAgICAgICAgICAgICAgICAgICAgICAgICAgICAgICAgICAgICAgICAgICANCiAgICAg ICAgICAgICAgICAgICAgICAgICAgICAgICAgICAgICAgICAgICAgICAgICAgICAgICAgICAgICAgICAg ICAgICAgICAgICAgICAgICAgICAgICAgICAgICAgIC AgICANCiAgICAgICAgICAgICAgICAgICAgICAgICAgICAgICAgICAgICAgICAgICAgICAgICAgICAgIC AgICAgICAgICAgICAgICAgICAgICAgICAgICAgICAgICAgICAgICAgICAgICANCiAgICAgICAgICAgIC AgICAgICAgICAgICAgICAgICAgICAgICAgICAgICAg ICAgICAgICAgICAgICAgICAgICAgICAgICAgICAgICAgICAgICAgICAgICAgICAgICAgICAgICANCjw/ cFGvP7ftuQIqchO2Z0hsQz9PTm5LKY4gv8DeUHHvAAjwqqWpBtcAHwChWNCtDzgIIpf8ARxyTN1TiUDx B0EiL1MlUImtJZ8WPQCiYWXwdOMbIDIiHMFqIbU2WM WbUMvtVW1KdZOpRLzyCATgTBTtLzNrOQMkGRRcGPBnXOZkPMGVCO7UEpNoJ2TdoG56YQXNHu2+DQplbm NnLjxFGyR8CTPyr2LgWEz1WC6LCKDzXeyxw1TlNjSpHYKDMMsrPI7HHEL0RLTrQQWlYo6TPEIxI322go XjOO4RLu4YXnMsPW9rfx7KNdDmBYXgLtiITip6RMrb HB0XjLWlMHmGzFTltRVoQ6WrY8ItiTGfjMTndZTJhZFnMTNZQNv7IyPmNEymJiHuCPJcEB8eGD4lUALq SSXtSyUtCVMSSG9YRMNvIYMfuDLtNZLtKHYWMK7LIVygKGV0BODfxqLvwKDsYVijPP4HIRRvneTeDazq MCBSDQo+Lb7WQL8me2LeWMhgETKhKG9zif9AGAoEIv TsY7Q0nSGjZ4C7EJhmTy5FUYYrPBYtVgtrVKENDHxnXY7ECJ4fdvV1NO8DyKDwDKGjVCImqTRwXEq5P3 1xeHJiXWjzLM6PGNT+Dulce+Te4KUHUfFADlSDGzDkUfSJEBRxOhT1ViT1OEl7OrX6YvNF18tTmdpsHpFK ixWO6KOH9oLDMyJOZJGC9GcLSpxM0kioFqYSLiJPQQ LeNtQ11ssQUaPCZnIGZ7WONtLz1PLAFgJ6DhakPdvMofheIdEQNhYDVUYB0BVHqttyFbpPVdwTdeMP29 nZtvQE6AMx9RObXbTA8kgm5CuXGzQv0ORZHjNr2BXILxFFRjMHWoXZN6DFCoHcPoTQjnMIXuVHUnUCF6 XMPzUASrVV3YVpIvOTFeOaDhDcQdDAVkFCFwor0RVG HxRYDpNCMcGcOmRRNgAKXaBLyiVJLqLZUmUWF1FKGjFUVzLW4PDkUrIMPcRVW3HeTdLFYvFCWnaf1AVC RwVOHvBXC1JDAwKMJnPCOpOYnaGLMeEIM1ILO3DUKyCRCmQK1FHzLjTRUpCAq3WjMdKJXvRVZpei7NAU YiOQCxTzV0HYQoZKSoOBHwOTfrNLSlWNBcHAsyFFFz IHMzVJ6OBvUjIDAmPJKgJJAgXGPqQORuje0VGSHqKSYcHJJwHdExMCMmLIRaJWnkHUZqIBE8RRS1AHTa QGHvSP5PNbAeQLDfJIU5NkHiLVYmATKqlq9HXDUdEGUtVjo2UaDoQSYhJARkBOyaGQJoWQC3KJS5IRDi GVJxDJ2HRdDkHDHzVFtbUJtjDUMnBPPjhs9DALQyKL ShXZP4PYZiXBUuXMSpCAtbLZKpTBD4HFK1BLPwHRPvHT1KCgHgZNOpBTpcQMWdCMGyBRGkhg9SHXJwGS SvYHRrOWUcHWCvEUVvBZhpSBToKDAuUBr7LLSkDMPiRR0ZUxWcWQAxMiT4CWVaFZGwDRIkne3HBJSmZA FzVLn1FXRcLIQfFHZzRDofOFQwJFNsVNA4BHOrBSBr LI8FWuLkJPWjMkUsHHmkXKMgZCNjju4ZOGEsHICbDaCaSMFmDSTvNNDzUFnvJYGmILNoIgb8NQYyPAMj VV0OVsLqMMCrVeBuKOEmWONvGRQefp9WHHFjUJTbEIDwUNPvTEFbAUYsTGzyBMGtGZT0Ohr8URKjMCUj UQ5HMsUwOHdnIWTLRdj4OKjvJ2h0GBFnOt4HJ5Ogz1 IcGgGpGHLTRIraQJ4jmpLaPDPtHx9SA8mSHie0CKDyPoRtKAV2GCOoCeQ4SSYnFRB7QvWwWEJvFrE8Qh 1hINQ0TNWcA3JuUgcuNgPaPtyjDyU4FvftAbJyB6HyDxm2IvVnTD8CMq7WOmV7ERK0fTZjEt6TUhV7Ab TSFhQwBM9MSZi= ID Date Data Source [id number] 02/02/2020 02:31:54 PM EDT [facility] Name Value Range Interpretation Code Description Data Sudha e(s) Supporting Document(s) [facility] YZHCIa7mDnYLEqGuq0CmRiLeWCMaEZ4zjva8K6B3rWHvT6XcoKOrt0jwD7EeT9AiTPFkRARFRF1PaMFx jb2 [file] ibboF240F8/GI9Dz0Lg/SQ3b6Gfki2URms7vvos+1+/OPERATIONS PROGRAM MANAGER/DDYh3PNlQiDj5Jr9mP16913367BqK0r4u dXVYlZLMm47Mra8ehd//bZkS0mB5d2we0F0jf8hoyYV3gperW6X39K4E1vc0mXkVc3R/9e0q3/ru1Xaf veYjWrV76Uvb3HQ4ijI+EWsYzlB07qf2/g64DOR5AQ 93mc4lJvNgrbgiOlanR//5O/R6gwC4VIlV+HeYd+WK7OMY+pdB/IMmTK6VG/7qMIb+ZQ9/dRZD/7KFvz dN3FJfzo22zg9UX73t4Mg9phs+z45p7c8N6RxkmbI9oCr3tMcAM8BOxRnLP4P1oItLQr1vh/9966sDCD a66CgriS8i6KZd+5m5RHqQ7j6Seq07M8Ky/z8JdQwo 3Mj6gkon+s2CJb6S2uqkt94/e1h0I6l+PutRrz+M7c/yvSF/rrq+33msp8ZYZTtuwMfW2K0rRdSW1wiH 3XGgEeeEE6axair/Hl2FkH94OJ32e2odwplm+7PsPLc/k3GWfWB5M405F8VPPbujk5u2uIf1x/yr79DZ Ed/ASX38il+awJa1ZR3WDuN+Uc9C/eu2+9135MpAA8 aJ4WUh6xy/1f596nny7IUnMY8qr1KR93NL/0C7W1/Zds1r/zWv/qa33h1W378vWmN7A10XhegTBm4/c3 YvWiVsTPF1BJcSY4tCqGgsJP//m0VYFSRQ/lrSwrRvBBjKLGvN99ewiMas//L6vsLm02oH8V1Ur0/6fN ZaYzMGbi75KhfNa12hnL3Iiww9KkB9jB+P56H/6fNB n4/oFys10D/7lH511X8PDtUsIt+++xrnfqM/P/d7/9dtM5Ea3/Ma+S6ZceAm/f+qontopz682a5Wol6H 6lqFxU4Tj2I3OeaoHdn30lvAt/2eHAjf/991Tn/of/o+3e+a3ryc50rAl7/z3G/05+d++//1PPQ/fT7o 80GfT/y08kbSAl/0+ktI48n5q36pffx6tpZ7ex08/1 N9XnS/i+aofsp03aUVlnl8t/5uLPy021w0ySu76f2/+rbnd/170eeLPt/4Jh3g5Eyx//Q2ti1A3LpHjR 11Ch9jclkb5G68tO+j/dgtas8A63R+crijBWae029KGtS1//1dp+5gEd9io6N5hj/88axj1K5JP9+9/3 /1x/LzmyWVT/ym6X2gxs4/Ngnz4wO/X33wSd+f9Pmi 9866HSjOBmCar3ASYNtBkzFjiVWr9H0p5DVbv8W+D/n7S76bvmQ1/5qoF95fQkcMy0mF9xHyHsDkXAqV lQDHwaWbbMQo3GaqMg/0+aLPN32+1IWn1d7+/50+y5aqdTt/+ozz10YQoc8kO02r57dB/z//sF8yA9j+ wv+TPp/o2ke0Ax+J2YRu8y1P21AVyE2aa6k2Cio+J9 Bl8lt8C+nzpM+xr25qt5x889X+uah/Luqfi/xtdn58sY5s7z+L+weYG7wDJZ/1Z491pS24Z0L/Zf266E 7Edzyq33ZGhJPt49gMg/Winifred/Q78//e5H/1/cg18/9v3nXO/Fr2Zgz32/7/x10MVFFZ0ugqAuLktlEQqUP BnPvh0+Wc+pGQYsVT7Qsz6e+q44T60MaOkGqm6rC97 yMkucCb9/2Efpt865l//qHf2rKUO/K6tdFyh50Y8efgPYa7n7+fafvrqBBj+9bANy974X//UW9gKwrKw 8jJj8jAgjCXx2Rq/p3/+p/sd++3HanzjUbW+5hygtFWaVyw9Ya7ZrV1jyTRVZ/y+j+senior svp+tz3Up//xzf+ [file] 8e2bb7/7+vWQj5//4m/8/NTH267/96pA14es1/9s5oze9eMps0v80lkrf9NSuWcB7//4N25zc/r7Nt98 +qnaB0113qxnT/zZp4zBg/ssn924mPkMb+/amn5wG3 /8WqX3dPun12/+/G9//Ouf/vCvb//H/3r7+ttv/9vr9f/pi862Urxfs214+3KRCu33/ct/Ge1f/v7tL3 9+Wz/V66f+SvpZk8+sv/3q6/9UDfwwlNdC+9OffvrvfPReUrBcL/hPvwb+ikFi7Y859o5L1YP8O5y/dP 8BEWl8oPsI+x6MgU5cd4w91nI1lL7N88/88Pc88Zmn cef+wXd/+Lc//NAhad1Y4e9+fPn9Lz+5pkUAva1+1cW3qjP0eski/+z+FyxbBuff/sr1yDnjwcAeC5nv sAWvKk5W+/Uf/vwf//T219/9xx/k6n11wl1FHG/7R3/tA4NzMjWMk+9+wF999/bHP//HH/76//zuf/yN 2x+Kug61kAnbUaVSov/YP3/3/du//s/[place]//xL3/+8e 65Vk6Kjx+3eLB//vTTf/70e+CvIViBv+YvP+9eEiT4xxbMO0c/wuRHL/1cu8l25QoeCi/4Idl39P+++8 mnt9/9v3/49//fsR3f9p2r/WdtrmaXHNAo2mHejRO//fVf/h4Goy5a9bg/+NPv/nb9T6df6P//7n/+/n f//sff/rzYfdg1KtkVE0WXfu35m1/+9NlrwND+o5+c Mw75j00/Ujwi68lKyU1x/NMffv9//fmPv3+5jlcgpq37n7/11J61j3v74S//41Wt/vWzHG3+8zOdqmRf /PWr0/7+Q3rwvgf+3//xflWt05zP+le/+z//8CZvf/r0d1o4OZqEc/Y61jZEY2q98aNNG8+5GJ21nK3w Yb/22bzP782Bpq7Sy0cvm04/f3W6r9+99lGS1adZs0 P3/x/OuPHoIdDhKZP2odSutBlurcUeVrbFMXfbVYPwWkp5HH4UmGOtUTAqD9M4NXHrxt0hZKFlUMAmaG CzDlJzGFRTQN3YoETeDZ1PCSr8JHCzSYPbUlOjVKOwvgV9MVQuRKUgWZQpE9QfaaJwvHQoFQIkBp1+ZW 7ph8DuZgVaUEPzFlg4BL9GaZXdAU6VuYVieQ9yifCm N660neJxBMKcTlldy9JlBCpsASHLEQ3PRFU4HXR9NMUkMv8+TO7ht9ZaKiKuJAEbMop0IY1LoBJsf2Bf XZ8LP5CsMTOeEIRUIHW8a0GsIHKseofnzyapH9WaIPX7bQ8bMQA8DWZpNXzuWPLcPUcwKCS8VhLqMVly SRIlPGSxGTGyMWCfCUx6gPCtAA7GQ5XxSHHuXDHOYD XauzWgXn4qJWnLLVvUF3CbHTOFNDTWWJnAKEU3SZKaOOElRW0YfFLmLAR4VFwFQCKJBCcQUJvvNgNrx9 N3QJAaP3NhEDIsaeHqTYQDFYmdRwahUJ6seRgpultsL9HetJAvLBFESFEiLCLqBNUpKDVdQ3Qcg1N4G4 VwZJoSAKBGBBsLOAafUeJ0s00dbwIJAHOxQRWgWZ6+ IQ9ao6WkMi3WGEVxXH4twky8GC0CiXAoZF6EFRxxcjGuD7mutdSvPoEgHEVTZV4yQ7ZabI58BBH+PmVu SJ3zqhq0pcYxNfSjCKXeQVVwDSUhFStfAYOmUAYgIDRiKFK8UMR7LQIsFbClIVZiJea4VVhbZWUxBHQo nxGYMPCpSTV3NQU0WZPyNOWkGSAhEAgxOMMqYXM7Ka O8CLByVYQiOS2tCoEaBTQyBZQqXGCxPfD9NeRlLmJKCOLmWVTlUISqFdHuRQEyXTDpCXyzVRZdPMMjVY z3BSZgPFFcKI9qBsYvFENtEMNmXWXcSTVvJARrqwCEWUTiNSPqNTX5POUyNQWuZOBlLEsbOZWzBHPlLF G7OICtNTCoMU8sTtVaXZKdWTA5NfItEVFgZJBcktLR NDCiTCEnBXR4IFDpMHKrXPRiCPmxNZSgPYJgJpL1OYJcPWUzAH1bJmUvBJBtMTA2QYNvYSWyDDIetiWW SKTiLSIlJTz2MpQzPNQkNVZaPWldFNFjSQNgPLnjIHJgUQUpSX0aVlQiTEEzPYKzXKIaWKQoJELzqpMV GRGtPRKuAHS2VuTnLLLzJTHiPBboUEEcULHaEWO9KJ BpZEHoRV8tQmYzFXTyCgejFOfbSGRcMYJqnuCQCSDdEZXwIYXgDPMeYSFcKDSrJCnqRKZmAOOhFtE9GF ZdHYSlVU8wDsHtDPArLQQ3KNEvLPFhLBGobvSSIBOjFZKzMRUsVNG5FQBeUKZcPWh7afYkwJExRiv3Cj 9AyImePHV0Wx8CelTpZHFfULEJVj0Da524HYKySVCSKqr+XelvcQGmkOdlFFAZWpp3GEPKYWFLL3D= ID Date Data Source [id number] 02/02/2020 02:05:38 PM EDT [facility] Name Value Range Interpretation Code Description Data Sudha rce(s) Supporting Document(s) Consultation [facility] PLVFBl1bZgFAQiZi63/YAIpfUHEhg1FjHMxtCLy8FTvzTNFnU5MiGVC1uD7oRVE8EYrMKuJpTpQoEHUi lbm UyQgsTHcGwJSQwWuxAWuIwLArgDmjaeFAdRS0LqGZ0ZXAbC20mXWApHTRcA1HpMVFlJXK+Fy5OOUNnrD NlNT9NJruU0M5vn2s6Ll8+kL7HRH09cINLRqDQ2yCitHLM8ja2Q/a2+4G98dG5agIGEN2nyz2FJ0xidH 3fGvCkLLhHCvSTpCwT1qVmNFB853aiNY9dLHOcg/kz rXvMx5f//uBhrvj1rqiaSbzEHdSy0KqWS6Gbzop3cVZI6Yl7PBQLJD3cztlP+q54E1m+eRk0vzs0+Dab LT0An14iK26jllJzdGb03g6JmqOg0H/y00/i6j/b4Iz6kbpJEz5ll5h/4t9sTEY9kLjnVjzcJlwZry9z IiMElWrqnKkzLu6ZGkB00E2HMLTsZNmYK9TpIhHCGl E0Cz+FrOmW6QAngzRfmfgV39OxXCFVkmR+wLEL+DcM6FGCi/Gzdr97oh9I/MftG7PVloqTAAxCZrgJae cDckNMj6H2z8CPZsFHuSbyYkLgJZgkDb0cbeWRJqXwHmCl/s3jNwQwaspj0oS4ChJ1IATe/COkBbe4c1 V4qERss7rLr284OoOy7I0/Bx+28cWH92G3hD3XCVK5 ogSKltNGGeK6yfsk2SD8ExCe31dVcl26dud/6IqLXzIcjlXbYm/PkbdlvKu92OX3LDqHGiYz2hzxwpMz 8I1j+TJISG1ACwFB52+oCmeP57yd/1eOK+KadShroLc1GhlLitfBmtwWyRHXLRcTebUCepMkdFokXlhO F9nP6X1gVAcXaqBl8vt2oHMQZDN7DydhTTxWn9/ioR cg3nxe6wGM/B5wiqe7MTkwxrEgGen9qLx2uPC7vI9+Roberto/Gj5nxs0v5AXojjeaNFN/pj4Bw03dRdbX61 [file] J2Uxp2FdXlOWVdEUHfETFyEKDtRyLxZTG+TS1mVUz+Lw9Rz4NyezT7flFdPEx6MNw9RXjlWCBSYl2O ID Date Data Source [id number] 02/02/2020 01:53:02 PM EDT [facility] Name Value Range Interpretation Code Description Data Sudha rce(s) Supporting Document(s) Progress Note [facility] JWFADu8sGmUCIpRb78/MUBujWQCuc2OfYLnuHEb8GYxeTRHpI4IlYDV8jZ4wLDX7LSuLSfJnBzGfXKWt lbm [file] DapnUEbxGqRtXoJ8DMS+QS1hXVf+Av2Iw7TemwU7xmUxMFc2QMtpDOexVUAUQb7O ID Date Data Source [id number] 02/02/2020 01:18:33 PM EDT [facility] Name Value Range Interpretation Code Description Data Sudha rce(s) Supporting Document(s) ED Provider Note [facility] SJHYGv3wKfGPOyUr15/WZCauWLOen4FaFAmnRKe2FBkyGLLuB6LjLMB5sE6vJVT8JDlGRfDoAjLmNMPw lbm [file] gx/4M6RilOsNw+ilfnr22Fc7u23TiPNEuWEPXf+UKsimOdWhicopfAsn7SzpzOt1OzflRJxBa/OM/+INVESTIGATOR OPERATOR [file] WmFW4QSMq= ID Date Data Source [id number] 02/02/2020 12:14:38 PM EDT [facility] Name Value Range Interpretation Code Description Data Sudha rce(s) Supporting Document(s) Discharge Summary [facility] QJPTHf0rKwUGVoFg25/OVQkyODTvk8ItUVqgWMg6YEnoGUBeF7OgBGF7mK7zZEL0RJtXNsKhLsNhNXUb lbm [file] respiratory [file] AgICAgICAgICAgICAgICAgICAgICAgICAgICAgICAg ICAgICAgICAgICAgICAgICAgICAgICAgICAgICAgICAgICAgICAgICAgICAgICAgICAgICAgICAgICAN CiAgICAgICAgICAgICAgICAgICAgICAgICAgICAgICAgICAgICAgICAgICAgICAgICAgICAgICAgICAg ICAgICAgICAgICAgICAgICAgICAgICAgICAgICAgIC AgICAgICAgICANCiAgICAgICAgICAgICAgICAgICAgICAgICAgICAgICAgICAgICAgICAgICAgICAgIC AgICAgICAgICAgICAgICAgICAgICAgICAgICAgICAgICAgICAgICAgICAgICAgICAgICANCiAgICAgIC AgICAgICAgICAgICAgICAgICAgICAgICAgICAgICAg ICAgICAgICAgICAgICAgICAgICAgICAgICAgICAgICAgICAgICAgICAgICAgICAgICAgICAgICAgICAg ICANCiAgICAgICAgICAgICAgICAgICAgICAgICAgICAgICAgICAgICAgICAgICAgICAgICAgICAgICAg ICAgICAgICAgICAgICAgICAgICAgICAgICAgICAgIC AgICAgICAgICAgICANCiAgICAgICAgICAgICAgICAgICAgICAgICAgICAgICAgICAgICAgICAgICAgIC AgICAgICAgICAgICAgICAgICAgICAgICAgICAgICAgICAgICAgICAgICAgICAgICAgICAgICANCiAgIC AgICAgICAgICAgICAgICAgICAgICAgICAgICAgICAg ICAgICAgICAgICAgICAgICAgICAgICAgICAgICAgICAgICAgICAgICAgICAgICAgICAgICAgICAgICAg ICAgICANCiAgICAgICAgICAgICAgICAgICAgICAgICAgICAgICAgICAgICAgICAgICAgICAgICAgICAg ICAgICAgICAgICAgICAgICAgICAgICAgICAgICAgIC AgICAgICAgICAgICAgICANCiAgICAgICAgICAgICAgICAgICAgICAgICAgICAgICAgICAgICAgICAgIC AgICAgICAgICAgICAgICAgICAgICAgICAgICAgICAgICAgICAgICAgICAgICAgICAgICAgICAgICANCi AgICAgICAgICAgICAgICAgICAgICAgICAgICAgICAg ICAgICAgICAgICAgICAgICAgICAgICAgICAgICAgICAgICAgICAgICAgICAgICAgICAgICAgICAgICAg ICAgICAgICANCjw/qZTsO0hheJJxuqG3E5upWq9EYh2GRO0tw9YyPUWtSUlkmeUaYkuZFkRfGSTiIxbP Ifo3KWitDJ3UdWGfE0YrT1IlDYxoZI8OSECaEUVjfX BzLIGdUJAxJpH4UQXkMVrrBJ6HzHPtSNmoIEQmTEAzTfHnEQRqXCMvJQEgOVOuYVGSCY0MTpTvH6DibQ 50CSZFPx4+XGohddPfJtfSTsM7QYSfr4SkTEw3RY6CLJQiIxdur2InKtEjWHAYYQklUU9YIKN0LZOrAB EwYf3XWVEeW198awVwGA2KNq8DEqPeMB8rlf6ENxWo OKOgNieMKge5QMjaMO6WpVBnODaKnVFynAPjM3XnZ3ChtNWjbYApgQARLC8oNGUkDUWtm1WdQQZQWHCl oER9RfL8QiPtAkPuWLX9ODOpSS3rUCwkFV1GOET3XEwyDPPcBYGaG9nMEdErOUStVzBajIjiOU5YOxJy X1PdusTupVNdZHNnEMBJJi3+DQplbmRvYmoNCjMxID Rur8KtRKw9FA6XYAWtVOvfAF7VBTIneA6vICnlJL2YPeVsNlQhXFBJJiNlJ51cbILxIZt9C6ZtPlSsNE VkRmlsZXMgPDwvTmFtZXMgWyBdDQogID4+ID4+FXinOX7VTZubixZjIBKhSk0OOHBgPACdDX6yNMLqXF XqT5M3zIpjXFIDNsPdE1wvjppwXH0lAQHrL358yCyl keIdEVS4AWSePv8WOXNpKYP8ECAqjXIcLgzoJRSAKTpfXJ7NlZUxMUD7pW6kVKajFEPjNDHuF1lTFcJl kNflNL20eClqwjAjgWFcDSe+Wq3PZW8sh2WjUJw8leIbUVixBJHpHWwiRQIyEMOcZNRtEYV3KSU5FMHB HrMhYLRrTPOvXMhzGNVyVORmze9GNVAyXQJcMLm2VU CtKSTmSSBrWBlyHLFnRCLxUzS8YZQtJVUlUX4EYwDfYUWjLSVyUYpyWNMzOQPpnt9COEBgJJYvAem0Af CgUXZuTUWaHFklYPAeKXCuKGO8YXUoMRXoDJ9GJhApJIXeMWw4VgVhSYJbCIWbhm5PWIAsOAHwUul6Xn BuOVVlQZIaVJcgKEXhQNNoUcEbODBoCRZcXC2GYaCp JUTqQAE1MWwsVZKsRHGjvq8RFYCxUVIoYmy3EKSaTVSgURShUWvhFSYoCHJcDSe4SCVbHBEfJD1DHfVl VAMqITFfIVQtTUGrCPPppc4FGYXvTHDrCHP3CSHcNHKfTFWcYDpsOQFzSKZ8OUR7CPFpRFJyLO1XJoFa ILItCJDzRPRzHZIeOEOqfy3JHBUbCPSkCRJ7NTFpIX ZeKGPaSKukRHXkAWO5PqauEXQjGJYlWE7XKdQsIVSaAFC0SKNyOPZmWAEhxc0DKOJrFSXuUjx2SOQsJR EmQZRvFYnuWKHqHTV7NWOzFBGeEIQzTE0NLpAgWVGfLOquCWStWZZnYGDeem2SPCXkXYWbSSI3JDZvMT UmFTGzTInkIIRrBJH3RGcuFRGbDZCdIB5SOhQuRQOg YQy0XhSrFKHsLHUzff1RCLYeHCMsGSHqUrPdCNTdMLIxRIflPBUyRAK8XAH5LDZvUJUyTL7YBwKsHJAs TmQnRLZnAVReCMIqjr0WKZRcHAJyHXn1PlXgFZKyZHHrMMlgIQDiUHCjAPWiLYXzNCQxRC2LOeXtFTMe ZqV9HjStKERjDLAnqk0ViIUpiDjmdd0AGPwEFx9SgP zuBAFfZZukWf1mfUAiSJAqXIULGc9KapTsSZXaSOBGBPwfZQMlSMXdBUdvDlJbOfGbQMZsV9AcFYA6Yo A6RBf3ZLU4QNDrOuM9LvU6RMQuQxPaOSW5PlXvTzO5HEHaUirhChH6YSmeNOY+SS6rCRj+At8Ib6Duta F8zlIrOLvgJlHuJJ2RLTUQV7BCZw== ID Date Data Source [id number] 02/02/2020 11:58:57 AM EDT [facility] Name Value Range Interpretation Code Description Data Sudha rce(s) Supporting Document(s) Progress Note [facility] AYVSHq8kGuXMVnAk49/KOTqoMTDid6AkTTyeTYp9WJxuIYGlF2KmANF2zV9gBAI7NMfOMoXfTtSkBVFp lbm [file] WEstLv5mOUVBRl5+AOsulYQgxVuxGVNZYqc2RpZOUgHfXL6OKOa= ID Date Data Source [id number] 02/02/2020 11:37:18 AM EDT [facility] Name Value Range Interpretation Code Description Data Sudha rce(s) Supporting Document(s) Progress Note [facility] IKPQFn0xKxIEIpAp47/ASFklREFod7NtLNsdUHp4OIvvYLHuC3HnZKS4uK9lAVI3TJyIPfCmXpXcVGWk lbm [file] HqC0MALjUPOxRwG7OHMdCIZoXBUkLR9uGLNRRz2+ZYmioGWohErbZNXTYhn7GYtFGlSjKK9VOXs= ID Date Data Source [id number] 02/02/2020 10:01:27 AM EDT [facility] Name Value Range Interpretation Code Description Data Sudha rce(s) Supporting Document(s) [facility] UTOCKi4lFvFKZmVry6XmGlCnRSYxNZ1jbnw7W9R3vMTuY9OkzIXok4zpD5YbI8BlSANmFKSJJG4GxCOk jb2 [file] yYyjf5O78KDwtLHTPbnd6gjQL/biodiesel processing technician/KaUZAio2Yvr5NVO7maXFbiMqQsvMPYBSSRWKW7GyRBmB9Cr7qv 7p0oHVtc2MyKSpOLErLKrVcSKQHsEa21kDqsIjkrtYXLDmd3SnlW9DhcYqSUgjWJI1DvnjxvICJVAt2A /eX7Q02zBkTlq5iSjyDaJ9JwHUCyZTS0GWInvdWY [file] sZqpQp/ett2KnLRT2vsTmbCaifhM/director of casework services/w3csI41ben6N71mw4tg/g9f49MrKTqFgve1oJ1aGpsgwRQh [file] m10r8h4il+Juan+FvnFTckdt0u9421H5+5gacHzK/5T0NAr2/GtEN9//w47e/+fjxVz98/oUbk79amxz8 N199+YuPH7/95tefvv/hm8+/+dmn73/55c9//Pj4+P 67Hz9/8+2nj+8/ff7+m0+//vIXP/kmP1D1o7ev7r53DyxBh+2bb3/01wD0q4/z+etffvzTN5+//vjuq6 ++/DDa0600ixFD01/65Zeff/z+56xvS984fkqUA/7iy+8/vvrul7/6xaf/49MP/6xu78g4O/vd568/ff 9P3/jv5hQm4047/cXHp6/+4T+5XfKb/+fyL457bD6+ /+ceKF7KAc/f/p2cptr3bU1Lkz/9aTEez+bp2odzQx524v++/bblO2238zvDn47+8tt/+PTxT1/+8PH3 3/347c//kydvWeJ+8qs//+lf//CXP/7+Xz7+z//98cvvvvvvr+r/t0+d4u1y3r2/8/GrL3/+5cc//5fR /vmvP/78p4/4p7a9cEPj+sASS79l2rq//A+n748Au0 Fqf/zj3/3e268WYTyXP/0fv4D6qiuW7+vr/w+a64XzyJ/D6EjTeXtSdoK9k6+ou368Q+lJ5eEmpnhT4e urV+f+dS2vCU1e3d6t+9//6+//5khkhQ0+Fu391Lxxd/35p+8/aaBtPq30dowm0sSrRnBw0P+igavd+b i7rFeH/focdiZ5cCuSu39bqqYwr/79n/79bz7+8tt/ //2x4f9Q4tUb1Ym3/ZF/hBSLk9BGi9F+wF99//GHP/377//rh418C/6T4k+jvhcfdT/Y6j8t/WD/+P0P H//yP191/8Of//OJ6j8S0F+EluVq7M9//+0/fv4d/+59KfA2+t++WXA43h2BNm/uzlZsJ0l9KVq6d06Z WG8/etCHspVq29/2+eO3/+/v/+0/Dp/nf2vXz/7bj7 /11Y1V0NBWR2Qna//ln//6J3ef/+Hvf//H3/6Bu084m+Ff/fZ//u63//aH3/9dVbDgrb96w3+ATyt9/+ c///YLAES6V459b/PASTE MAKER//uC+XA62DaxMaggy///nf/95/+7ExPYe90nnbRKY3+cq+n9Ih7/+3fX/3qX7 741Q+/+iah7CevMsSb8dt6k5/+X7//kI8//+uH8MuH SJy2n69McoS1Ymz+/fzzFzFxvZaIml2/+/72fj9FN/qn8G2V5xvzoQhN009mtu8m+u2bc0r//wHbMVeo RkRjHTP4ihHlxAxbxwLcLydCHBguTLWwFak6GU7QkJIuETIwO9N8URMeuc3sNRUtCJBynUUcKfQcSXTY JW5XwDCuHW3QKSk2DPWcFCXiZpDqHYKcrwN0WFWfJL JlVCNnP4XzteBnwBDmZHXeIi6+DS0df1HwUmFxVBKiSku6QW0ErNXwZX8RdUIilC6lrrRfJ191eoHfEW WfMtesa8GkUFunISFOHJ8HIZW0VYY3XYEgAx1+OL7kw5PrGjLfSMKvZbu1SI8PcAEye6OqOZ7MS3PoEH KoBFUFWZK5k6FwTCTdxaqwotkcE8QhGHW3iD7yNRD1 XEYoYVdpXVJtCYwqNIPxRRNqLEtqUUCrGECbJMEmFEVbEFl5jUNyMX4SJ9OlNDBmLDSTJWPvziEzUi1a RXqLMKmFU5DcGSHKRLJHTBzASSH8XOLeILWcED7PyKCaYCL4CMkABMQOWYyHKBetOmCpq4L3EOErN7Zm KEYffuFbTPWAFBbdCasuMD4xsRlthcfdF3SlaAJbWP TXRGAiUVJyWPTkQPUfW9Bwq5B1J5EkHZkPQGHBXBvNEZctSsT4z72viuHGFXImNLOgUQ8+AG0rk1PnCn 1GUYFkPC7qith0HL7TqAUfTT5FZKvdpbQoY5xxbyRbPiUiCTUSMQ0tO7QkyL82RDF+VyMgCF4bien4qy MgJjDwNBOfUWCcXCYlGIxkQRAySGFuSNMeNQK0CSR9 RTKcDmRwNEPxZpF3WzNiRFHhXWBcnlMFWZHzQGN1FCW2YqSpIIWoMTRmAVarTLEwQMigTNWsMCPkIUMb HU6uChSmLKDkZZKiKCUsOjQ3LzKkFfVBLRXiRYHeJWDdTuVfGGYxCCBoNByvKFNfKBDfKFj5RNGtWIKl RZ1vYqJkFTRoFKOoPZJcEMAzLKUyynFRZTHgQNJzEM A8LFHdNIPfFTLpIRswRTIrMVRyTRX7CRMdEIEeSW6fUgYpVPFnIZP2QdDgKLNwJEWmcvSEECLhANZuDV P6IZBxVZTnITGkNEohMCUvWQVwNxO2WDBuACFySI9oShUbIPHzUYL0KLZuSVIuUFWeptCXLSKmNVMqWC n7TrKeZCJcEGYaGDepNJAvBVKmRProYJMsISRlFV4s FtYnVUBmTHKqQHJaUCCkNNIvdaRNPQKqOWLhJKE3DtOmQRCdJYOdUXojOADdBGMbYYY3GTGyEIVrWB3x UgPbPVHpDlBiTJWqRAXmJSWcevZQVHCnQWMnNZAuHVHxZSFoGAQrZWoeTTHeLPQeLfO8PVEoCDCbWU6k BbFdCNOlUEJ0UTCyAGGtCGXxmmCODPCbBGMhANGuON D3ZSNwNEWxJIy9abFliDBdAkv8Td7RmGjfEUX3Wg7ZwwGbMIDcUIHAFm3Ek160OFVhAFVJTlo+PgpzdG YlyYcdYVOOKnA5IgwBQLPBK2Q= ID Date Data Source [id number] 02/02/2020 12:49:09 AM EDT [facility] Name Value Range Interpretation Code Description Data Sudha rce(s) Supporting Document(s) Progress Note [facility] ANOAQw9iPeRZFpSw14/SOQtsDZPnl4XdZNfmKQk7ZPkkFCPeX7SqXZJ0cF4tJOG6EXfSDyZoJnQvBIUr lbm [file] Twd3HLQpCIO9NifnBom1DQSjJJU1IeCrXHd1IP2h XSANCj4+PYkerGWqoEnkGSCCTxn5UZQYWdOmLZ3VYEf= ID Date Data Source [id number] 02/02/2020 12:18:08 AM EDT [facility] Name Value Range Interpretation Code Description Data Sudha [facility](s) Supporting Document(s) History and Physical [facility] NLZXXa4yXpUHZdDg35/RFCrzLMMle8FxXNgpPZf4AHarEQCbD5JhWNL5xU4cGJV8KBlOPcAzYkCmURWc lbm [file] J2yhWqWBn4YUD7QQ0FSTZAD3JWKj== ID Date Data Source [id number] 02/01/2020 11:32:30 PM EDT [facility] Name Value Range Interpretation Code Description Data Sudha rce(s) Supporting Document(s) Progress Note [facility] AURIGy2lOoZRZnVi77/JWHsuGIRcx5KtIWkgWKe3NWbxENElI7YyDCP3eF4sMBE7DGbQRhBaXmHrGCB0 lbm [file] AgICAgICAgICAgICAgICAgICAgICAgICAgICAgICAgICAgICAgICAgICAgICAgICAgICAgICAgICAgIC AgICAgICAgICAgICAgICAgICAgICAgICAgDQogICAg ICAgICAgICAgICAgICAgICAgICAgICAgICAgICAgICAgICAgICAgICAgICAgICAgICAgICAgICAgICAg ICAgICAgICAgICAgICAgICAgICAgICAgICAgICAgICAgICAgDQogICAgICAgICAgICAgICAgICAgICAg ICAgICAgICAgICAgICAgICAgICAgICAgICAgICAgIC AgICAgICAgICAgICAgICAgICAgICAgICAgICAgICAgICAgICAgICAgICAgICAgDQogICAgICAgICAgIC AgICAgICAgICAgICAgICAgICAgICAgICAgICAgICAgICAgICAgICAgICAgICAgICAgICAgICAgICAgIC AgICAgICAgICAgICAgICAgICAgICAgICAgICAgDQog ICAgICAgICAgICAgICAgICAgICAgICAgICAgICAgICAgICAgICAgICAgICAgICAgICAgICAgICAgICAg ICAgICAgICAgICAgICAgICAgICAgICAgICAgICAgICAgICAgICAgDQogICAgICAgICAgICAgICAgICAg ICAgICAgICAgICAgICAgICAgICAgICAgICAgICAgIC AgICAgICAgICAgICAgICAgICAgICAgICAgICAgICAgICAgICAgICAgICAgICAgICAgDQogICAgICAgIC AgICAgICAgICAgICAgICAgICAgICAgICAgICAgICAgICAgICAgICAgICAgICAgICAgICAgICAgICAgIC AgICAgICAgICAgICAgICAgICAgICAgICAgICAgICAg DQogICAgICAgICAgICAgICAgICAgICAgICAgICAgICAgICAgICAgICAgICAgICAgICAgICAgICAgICAg ICAgICAgICAgICAgICAgICAgICAgICAgICAgICAgICAgICAgICAgICAgDQogICAgICAgICAgICAgICAg ICAgICAgICAgICAgICAgICAgICAgICAgICAgICAgIC AgICAgICAgICAgICAgICAgICAgICAgICAgICAgICAgICAgICAgICAgICAgICAgICAgICAgDQogICAgIC AgICAgICAgICAgICAgICAgICAgICAgICAgICAgICAgICAgICAgICAgICAgICAgICAgICAgICAgICAgIC AgICAgICAgICAgICAgICAgICAgICAgICAgICAgICAg TGMwIOp5D5pdIKVjOYSeTY1eHTs1Pr1+AOcTPiLmUJD8suFadQ4AOW9ku7GvGNsrRBUjq2XrUTu6GY6T WBBkNLovWL2PYJbbfw0TBEFlBXGygHQDx1diFmOkFDN0OKOeStsqKC6OPWKzD2ppgeWeVYTnNRICXPll PTAFRN1RHpKcE6WmoH30FYRJHr0+DQplbmRvYmoNCj Q9CVDqf5ZmEEm8FB8WCVAfNpszv3SnIpCmWQWHLVlfDM6JDII0OATgNKUbJs0GMMUnJ641ukTcVV9UEf 8LDgBcMO6uwe5FHqPfGUZnDzeAJpj7AVxfPK0ArQPtEBeYys7wplWnwlGQr8IobqKtiUIAm81gO4RpOt SYCTJacNpgKKOhEJCfCS9iJZ6sXYYgVOAeTsD2LLUY QZ9LPHAyXJCceJWcSZMoFFUTLB4QUXocQNF2MHThuvLmdTVtWHvvOZ6PYIJtbeRtVYrvCYWHYPh+Pg0K SS3xy2QfEXtqKOSiKW1wxk8BPGdDUzMeN1I3sMKaC7V3NCayQz6FLBRfUMXeWSxqZCQUMPycSW5AIO0n dkG6AL6IaZQjDJMzDQFukOEwUNs0C00guQTjXJozTR 0KICA+Dulce+Ao0DPQSmICOtWFIrKkIkWGMHUtGhD2DvS4JYz8TvY1PjJB23dCgfbqXkLZvfFM5WUD8sMR FpXHAKKO0XsNCodH2egcCgODHuOXFWVrFpL33bjRDcFFYkEDW6QANtOs8JHWGjT9SwuaLjmBqwxdOrGX MdYEQSKV9XVXgfqlYzmEQxrVbeAU81wOhjOP7KXk9E MhPoNY9qil4ArQXmRu4XAZEeEg0IUJCmQJHoACDmZUV7BJZuMlGhVSvkVRKcYCZzUPY5MDVbBHQfZI1P KlAxRUIcXMKdBeGeWQSyTCKdjk0JEASfZZEiBAn8NYIxQLTyYYKtUQocZPBbAQMlNJK9JNDgPTDvUR4H VqBfQKHlAQQuCFLsIOMzPBTrqw6LZZAgGUNuVBX8Sk UjWPNsXFXuMNtbYIAyHQN2DOT4YJGgQAZeSX2DZbTyPOXjGPNjLjNpOEOuZFFzhb9EJICrGVWqCpAlTK XfRFWnQETpCSarBJDhBWB3YyR6GISvVHBwDG5XPnIgLXCtYIxuJTohHPSdLJFdim3FMPCmZTVaPME7Ib LeXYUeIXZfFEtzDWNpFHG7VDL8CVUeHYNwPN6XYzFu JMJgIIx6UUcySMGlJNCxwe8XAPCqFZSgSNivGkJvLNZlBIZfSKweGWDrCDP2YRObVOYsXKGuMM5MVnHa WFXbDLUjWBDhERNkLIEvng3KSDYiVXSuVCDcOVYdWQBnLGVlOGytKZVpWRJqYYM7HMRvMJEkLG7NVqEo TDDyVBYgLqgbCXKjNVPymi0XQDHsTFGpNnJ4EHLvBC SrDSJbBKr2uwGnhFBuBBg2JF4YY9XxucCeBmEGJr5Jq715CMPfXRGsZo1LP9aiNb0aVWXsORDVMh8LOQ r0FMJ0DWj7OLC9ROV2PgzuJ6JqL5WcNYi7Z1O9YtNsWYs+GCh8CvCwTPftLfu9YvtqTOEdLARpSuQxHs FxYcL0G0H7NI7oZUYMVu3+NRykjMSnjViiDSDWRqSpKDVvHAvoUMVMNd3F ID Date Data Source [id number] 02/01/2020 11:18:00 PM EDT [facility] Name Value Range Interpretation Code Description Data Sudha rce(s) Supporting Document(s) Consultation [facility] VFGFZi5fKfNIOtDd20/UBJzlLCYic9RoNCniZPk5MKddLQDoQ9UvMKL0yI8fONR3JVzVTrXtZeJvXZS9 lbm [file] vulcanizing machine operator+NQGpvQSuILTxBdeThvXk3tB0qbRJzaK38DW8iL3SkuUCH0+eN7vq4ZaJC+23hj5x8eQoD1cVMLgU [file] AgICAgICAgICAgICAgICAgICAgICAgICAgICAgICAgICAgICAgICAgICAgICAgICAgICAgICAgICAgIC AgICAgICAgICAgICAgICAgDQogICAgICAgICAgICAgICAgICAgICAgICAgICAgICAgICAgICAgICAgIC AgICAgICAgICAgICAgICAgICAgICAgICAgICAgICAg ICAgICAgICAgICAgICAgICAgICAgICAgICAgDQogICAgICAgICAgICAgICAgICAgICAgICAgICAgICAg ICAgICAgICAgICAgICAgICAgICAgICAgICAgICAgICAgICAgICAgICAgICAgICAgICAgICAgICAgICAg ICAgICAgICAgDQogICAgICAgICAgICAgICAgICAgIC AgICAgICAgICAgICAgICAgICAgICAgICAgICAgICAgICAgICAgICAgICAgICAgICAgICAgICAgICAgIC AgICAgICAgICAgICAgICAgICAgDQogICAgICAgICAgICAgICAgICAgICAgICAgICAgICAgICAgICAgIC AgICAgICAgICAgICAgICAgICAgICAgICAgICAgICAg ICAgICAgICAgICAgICAgICAgICAgICAgICAgICAgDQogICAgICAgICAgICAgICAgICAgICAgICAgICAg ICAgICAgICAgICAgICAgICAgICAgICAgICAgICAgICAgICAgICAgICAgICAgICAgICAgICAgICAgICAg ICAgICAgICAgICAgDQogICAgICAgICAgICAgICAgIC AgICAgICAgICAgICAgICAgICAgICAgICAgICAgICAgICAgICAgICAgICAgICAgICAgICAgICAgICAgIC AgICAgICAgICAgICAgICAgICAgICAgDQogICAgICAgICAgICAgICAgICAgICAgICAgICAgICAgICAgIC AgICAgICAgICAgICAgICAgICAgICAgICAgICAgICAg ICAgICAgICAgICAgICAgICAgICAgICAgICAgICAgICAgDQogICAgICAgICAgICAgICAgICAgICAgICAg ICAgICAgICAgICAgICAgICAgICAgICAgICAgICAgICAgICAgICAgICAgICAgICAgICAgICAgICAgICAg ICAgICAgICAgICAgICAgDQogICAgICAgICAgICAgIC AgICAgICAgICAgICAgICAgICAgICAgICAgICAgICAgICAgICAgICAgICAgICAgICAgICAgICAgICAgIC BhWXKqNBLrMGQqGSOwZKLqUKQdUWYeKPTuSFt1H4xpGOFvSLIgMJ3uFXl5Zw6+HAsFMtDvJZX1feKjmO 6KZF4gp2QoNPzkXCCmt9VnUQz6SW5SFKJhLPzkPA7Y UMqpdg3UUDMsIKZbyIXKh5dgKuIbYNF1RDJcQviwOW5TTNXiE7pcmlIoRQSsKFVFUTdiQMTJPPmzYZQM KCIuHIMvLfZiGaXoALCdZHBhIAIJCCO9FBAnCeEsBBYcTNSzZJ3CIDHwN114mmSqMT8XZn4KIyIkWN2f xo5KNHhpUZHtCdjJMra4FOdwOG0IrYEglBO7UMRoZG GRZhHxK8kvx7NaTXymGKZBJQeqEK5Hd1QzhHGiVFy+Lb5EQQ3ef3CcECx7RTUwCX5aqd5KHNaKGuOaN1 FeiCflSERabyS8xWEkQBB6GKPcjNGiReMPKEDYTCG1CCRqXG5UZKX5ABpkUTzmMmTaMGCoRXr8PDQNTM qHRuThZ9Oca6CvSgZ9DTJaKrCqEOweGDYuNhW5OB11 oVspNB5WXITgMGOrIL40JNB4MMMyFa0OEq3TJuRbXW7kpn1ICCkrFQHmIkxOMuo3DAjhVP2EtBWwU5Zz kRThy7hTPxCoA9ITRBX0LGWrTt8WJFTiMtTzVVPoSTcgTQ3eSITqPBVMwZrbfgC5OJ8GRG5upfJcMS4P BjNlCd4nKp8DWyDvW8FyY1TaRAPjLQKRUVdpXX2UZW ipWE7oUE6Mk9XCaMYuwW6icm4NJUZzUHJpCmwyrj7VDuqaD1M3mFnsDAXhKJllUGSBSHefQL7EZIUgNF W6NDC8QeLjAREQXdJdK52kGX1YQ5Atp81iIhO0WYYgCnHaCYyfLS48hRdaikSmtKAgdDjhQN2PMc7+DQ plbmRvYmoNCnhyZWYNCjAgNTANCjAwMDAwMDAwMDAg PgH7YuZxXd7TWVEsUZPgLNZaQtTtROHbCQTjYVjmPJZoBRRoHGAqWMYxQWKfAM5GPbVrVMGwOHSsAPXl SYTcBUIaxe1APVQnYSKbFAT9AeRxNMSeSDIcOKftTQYvGGP0YXP6NOQcNJWtTE7ABrCpETFnBJFgEyKv HNMzSAHeae3VIRSaKSMjFxU6ZwTyCFLjNSPmSDygUB RtLUF6YHx4TKTqLTSeAT2PZlFvQYBuXXH6JXeaQNIyUJCwgp7GOYAaQHMyOQU6WyUuUIAtMSLbFEpzFX CpHSS2CGD8NHKpVDMuHL1FFxBnMBXyACQqSAJvNKPgGAJapu7TOFQiCIHqUNh2TADpFTKhSPKqVDznNP LtQPB5CEh3JFDbSVJcED0KRyRjYKAaAsAzGQMwWEHs UHGaxf9YDYPuFDYsSfH9QdRbAAHrFRXqNZqlFYXnLKC2VDM6SESkQIEcXQ6MHfJgKLAlZmfdPeFhMXNb JSQmuh5CEMGpREVxDGF0AVReBQUrIZHxQXbiTHWbAGF8TIT0OOWxRCZnKC8JXsYgTKPkBowuEvLgRBEe NGQfjp3ZHGCeEUMyMMK3GXPvYFTdNRTgZEpfGEUaKD H7PuW0XAMsDMJdHG7IJyLfHGGkOtT0QTTcAYSdCTIdun1WCQLqTWDoOConHBMnILOaZAVjHVuuHGXkDY VvUJjyNSAbRDBtWB2DZqSoICKjMOZ2DeiqBLHiTONyhl5HHPUqYUV1Aoh8YdLzBDYyZNZqZTyyFTClLH EgQXG4SGOuCXCdDP2HVwPuLLBcAJMlRVPcUGHeDSQg iu6EWOTrPIU1SfM0DNDrQGYfWBBrTCocAFPjIRR1HlK8KKQpLIDeSL4LPbIaIVLzRKA4CmOmHDCfPRVd nm9HHKKdXAB1MAuaFTWcPQPeYDVpOWveXXCpUWS1TzUjLZXfHJKsZQ6QQdItWEUrHTA6ZnNeMILgYVAd pj0WQEDrVCG7UpIzNNYlYZMkZUXmFOmyKMQwEQJhRB k9UIYnDIKyFR7HDnAbJOOfQROiDSfpWGXwEMWtnl3EDYQxDKG6RUBgYRWaDEItIXLrCVcoZFTjQNZdYw A1IRRnFBMtCL6MOfHrCSRsBKW0KSYvNBLyXRZeqp6YZZJcECE5QjYrSkSpHZSrFEWmBVduRVTkWJVeNc BsNEYdVVWyUT3NImQcIKHvSGD1SELyBJNhMUKrvm7A PWAkYGE5Ked2VOSrJESbQKNoTTunEVDuVYY8BtXjVENhBSJiAG6BGsTqNEDnBXS4FdIyCDScGZKbum3C TEOgXUN7ABV2UuQvVNOvPPAxEEc6mnQpqYYkWKa6UC8NL5UrmcPbIYZSOf0Sg419UBK5ASSxBs4QT1uo Sk0gGOKdXXJEAn7AVUt7QyEaNFm9EVP6OHw8NAUvVT IhLrGcXsL1U1PkQbD0SwP+GFtiMNRsGkXdXimfYhhgVDVjDELuWCOtQxVqWVOpGhxuRC0ePTGNBu9+DQ ndcAZfaUreGIDJDsI8GAQoTLkbHYVYPt0V ID Date Data Source [id number] 02/01/2020 10:09:49 PM EDT [facility] Name Value Range Interpretation Code Description Data Sudha rce(s) Supporting Document(s) Consultation [facility] DFFTAm9cAwPHWbKt01/GOAcxGDQqw1FkINwyKKe2HMffPNKaS9YmSVE8pE2zQEY0MVeOHhIaRuTgZBY5 lbm [file] ICAgICAgICAgICAgICAgICAgICAgICAgICAgICAgIC AgICAgICAgICAgICAgICAgICAgICANCiAgICAgICAgICAgICAgICAgICAgICAgICAgICAgICAgICAgIC AgICAgICAgICAgICAgICAgICAgICAgICAgICAgICAgICAgICAgICAgICAgICAgICAgICAgICAgICAgIC AgICANCiAgICAgICAgICAgICAgICAgICAgICAgICAg ICAgICAgICAgICAgICAgICAgICAgICAgICAgICAgICAgICAgICAgICAgICAgICAgICAgICAgICAgICAg ICAgICAgICAgICAgICANCiAgICAgICAgICAgICAgICAgICAgICAgICAgICAgICAgICAgICAgICAgICAg ICAgICAgICAgICAgICAgICAgICAgICAgICAgICAgIC AgICAgICAgICAgICAgICAgICAgICAgICANCiAgICAgICAgICAgICAgICAgICAgICAgICAgICAgICAgIC AgICAgICAgICAgICAgICAgICAgICAgICAgICAgICAgICAgICAgICAgICAgICAgICAgICAgICAgICAgIC AgICAgICANCiAgICAgICAgICAgICAgICAgICAgICAg ICAgICAgICAgICAgICAgICAgICAgICAgICAgICAgICAgICAgICAgICAgICAgICAgICAgICAgICAgICAg ICAgICAgICAgICAgICAgICANCiAgICAgICAgICAgICAgICAgICAgICAgICAgICAgICAgICAgICAgICAg ICAgICAgICAgICAgICAgICAgICAgICAgICAgICAgIC AgICAgICAgICAgICAgICAgICAgICAgICAgICANCiAgICAgICAgICAgICAgICAgICAgICAgICAgICAgIC AgICAgICAgICAgICAgICAgICAgICAgICAgICAgICAgICAgICAgICAgICAgICAgICAgICAgICAgICAgIC AgICAgICAgICANCiAgICAgICAgICAgICAgICAgICAg ICAgICAgICAgICAgICAgICAgICAgICAgICAgICAgICAgICAgICAgICAgICAgICAgICAgICAgICAgICAg ICAgICAgICAgICAgICAgICAgICANCiAgICAgICAgICAgICAgICAgICAgICAgICAgICAgICAgICAgICAg ICAgICAgICAgICAgICAgICAgICAgICAgICAgICAgIC AgICAgICAgICAgICAgICAgICAgICAgICAgICAgICANCjw/mDQfQ6lxgDWedfC2I6rhMn7BNd4RBM3tn2 YkWXAnHKcjedWgUovYYzMuMXRdEnuZDfy6QJtdYO3MnMZhC2ZgH9DpPMscCL8RXEZoZJVqiWWyJRVoZG UwKzR7FUJqINubDA2KkQBsANzvTNGzHWIyJsOiQVDt AG7OWPEhQ986hxItLa5TVe9DNzVuVF3fts2TXWHtTWPkCnyAXrr3GItcOL3PcXUczZFrUcFcAPDYFgGx G6ldy4FdHUylNRDNGIikKI6If7LwjLPpWJz+Yi6QUH0lt6MoLKtzUlOuUS9vji1FDXeVHpNfE3NdrVny HJKpdeM4dLLbXNZ5GFDod64yesWXIKMufVXyRFyIB3 mmSZJfWB4qSO1qPRPsEMY2OtC6NTSEQF9BQZYaCRTdqQAdPWWfVPOXEB5NZHlwBCP0GMQttqBqxBAxUY chVX4TNVNlgpVyZNRzMHTPEHp+Pc0DVU6zi8FiDFkwIURtZU7ifh3KEInQAdMoI4U9hVEmG4K5TRaeSv 7IPOTkJSWyRCBhLDJNXFawPY1WNT6plmY2AT7CkNMt BMJdMTFoxOXiLWl5A55uqZHqJQpmIT9JXKF+Dulce+Zt0WCFJpZDEgGCUqZyQhAJVZNaYkT5CmD5KYa6Qu J2EgSP22rJrehtVkDZxpGS7OVC1wQOYtCJKPIA2GxZUmhQ4iyvSsQaBeZCXGEpHdY97fnCQfGKCcZOQ8 FKHeLp5AZEJhD4LhjsJfwLxkbbPdFQStUYORFW4SBL qlaqHjrRRreOuaFL27mXxiFD9EYx8WVgJcDK2gwx7SmPWvFe4KWLViNH5HAYLyYIQfUTGcCRV1SUFxDm IqVFesDXPgIFAcVJG1MOLzYTKfXC2VBjIzULKpDZt3ANqyOPBrKMLsif7FBQDrZQMwHSCxKOKlYVWfZJ DlOWdeBBIpSQDiCFU9WPYjPZRfDL5YHtOlQJGnBVX9 NbTjJVZfFDVcdn3AKDGrSDZjTqS1YBKyLZOqOMRbISscFKYlAWB1CDv1VWDwPXTjTH7ZFuDyHRNlGRSy NJreFBCmAINzre2QAXOmTCDiGoR0NHHoWKViDOHkSEiqFCPmCDW3ToN5NUKhFZOpNM4WFaAiGTHgTIY0 QpRcVLXbXKVqnk5YQSNiYMCeUmR2ZVBnWPZiESFiIA dhCMXoKYS2Fdt8LRJqLBDeSI5QKwPkTKJjVSy4RzKnYROsZTXvhp7LGBJqHURnODB3GFYmRGGqWIZgGV hlMUMbQFR4GfJdKHFqKIWeOT6TEbHcJDDpTIv9YIQaZQQsNSLqal9WWQJxWDFnODivLTGuRPKhZRAvFM i4zvKwvZHeVHi9GX8HI8AzmiApGIuNPb0Jw802IDW2 EDAcLp0LP4ywNl6rYBTvRHOFMx4YHVp9FsEaJ6TxSqDtSUM9RYZoAQCuDoy3ZCJ4FAgcLTciLbL+IDxm AvPnTAYtXDD8QkH2PkMcSUIfTyfsAJAjH6CtUIJ3Jq9kWJSENf7+DQpzdGFydHhyZWYNCjEwMTgyDQol WISAIj4O ID Date Data Source [id number] 02/01/2020 06:32:36 PM EDT [facility] Name Value Range Interpretation Code Description Data Sudha rce(s) Supporting Document(s) Leukocytes [#/volume] in Blood by Automated count 12.1 10*3/uL 4-10 [facility] Erythrocytes [#/volume] in Blood by Automated count 4.50 10*6/uL 4.1- 5.3 [facility] Hemoglobin [Mass/volume] in Blood 13.5 g/dL 11.5-15.5 [facility] Hematocrit [Volume Fraction] of Blood by Automated count 40.1 % 3 6-45 [facility] Erythrocyte mean corpuscular volume [Entitic volume] by Auto mated count 89.2 fL 80-96 [facility] Erythrocyte mean corpuscular hemoglobin [Entitic mass] by Automated count 30.1 pg 27-33 [facility] Erythrocyte mean corpuscular hemoglobin concentration [Mass/volume] by Automated count 33.7 g/dL 32.0-[facility].0 [facility] [Ratio] by Automated count 12.8 % 11.5-14.5 [facility] Platelets [#/volume] in Blood by Automated count 318 10*3/uL 150-400 [facility] ID Date Data Source [id number] 02/01/2020 07:04:29 PM EDT [facility] Name Value Range Interpretation Code Description Data Sudha rce(s) Supporting Document(s) Bicarbonate [Moles/volume] in Serum 22 mmol/L 22-29 [facility] Chloride [Moles/volume] in Serum or Plasma 100 mmol/L 98-107 [facility] Creatinine [Mass/volume] in Serum or Plasma 0.61 mg/dL 0.50-0.90 [facility] Glucose [Mass/volume] in Serum or Plasma 102 mg/dL 70-140 [facility] Potassium [Moles/volume] in Serum or Plasma 4.0 mmol/L 3.4-5.1 [facility] Sodium [Moles/volume] in Serum or Plasma 138 mmol/L 136-145 [facility] Urea nitrogen [Mass/volume] in Serum or Plasma 10 mg/dL 6-20 [facility] Anion gap 3 in Serum or Plasma 16 mmol/L 8-15 [facility] Osmolality of Serum or Plasma by calculation 285 mosm/kg 275-300 [facility] Creatinine/Urea nitrogen [Mass Ratio] in Serum or Plasma 16 [facility] Calcium [Mass/volume] in Serum or Plasma 9.1 mg/dL 8.6-10.0 [facility] Glomerular filtration rate/1.73 sq M pre dicted among non-blacks [Volume Rate/Area] in Serum or Plasma by Creatinine-based formula (MDRD) >6 0 [facility] Glomerular filtration rate/1.73 sq M pre dicted among blacks [Volume Rate/Area] in Serum or Plasma by Creatinine-based formula (MDRD) >60 [facility] ID Date Data Source [id number] 02/01/2020 07:04:29 PM EDT [facility] Name Value Range Interpretation Code Description Data Sudha rce(s) Supporting Document(s) Troponin T.cardiac [Mass/volume] in Serum or Plasma <0.01 [facility] ID Date Data Source [id number] 01/31/2020 05:06:37 PM EDT [facility] Name Value Range Interpretation Code Description Data Sudha rce(s) Supporting Document(s) History and Physical [facility] QPDAPq1fHhXTIzRq73/URZllOCEis1WaWGctTIp5MOtgXYZjV4UzEHW4nV4rERG0XJuFIhNeFxSiLPJ9 lbm [file] l8HIP9YfT1XDK5NvhbMbN6WSdjOC8eASYIFy1+NNinmDIveHvdVRUNToI2WYVfXPldMGXMYr4K ID Date Data Source [id number] 01/31/2020 05:24:49 AM EDT [facility] Name Value Range Interpretation Code Description Data Sudha rce(s) Supporting Document(s) HIV 1+2 Ab+HIV1 p24 Ag [Presence] in Serum or Plasma by Immu noassay Non Reactive [facility] Negative for HIV-1 p24 antigenand HIV-1/ HIV-2 antibodies. Nolaboratory evidence of HIVinfection. ID Date Data Source [id number] 01/30/2020 02:27:26 PM EDT [facility] Name Value Range Interpretation Code Description Data Sudha rce(s) Supporting Document(s) ED Provider Note [facility] MTOMQw6nUwMNOpFp73/AJGlyQQBcd8ZpTMoqXKu2IZdnDELkR3WxWEU6rT2zCZO7LZpPEoFeWySoVWS3 lbm [file] ID Date Data Source [id number] [facility] Interpretation Code Description Data Sudha rce(s) Supporting Document(s) Troponin I.cardiac [Mass/volume] in Blood 0.00 ng/mL 0.00-0.08 [facility] ID Date Data Source [id number] [facility] Value Range Interpretation Code Description Data Sudha rce(s) Supporting Document(s) EKG [facility] VUAVIa0tAqQQMfMyj2DaJxHzGBUiHU1khjj9U8S3aAPtJ2OysBCan6xdM0PbJ1MnYPHtGPGOTN6VbLXt jb2 [file] +Adam+w84ie+zuGIqES3mijhmh20nlJxZYIixjLp/UID vqJcJ/7clvjnJXhjibzrxHOaxK/dVz2C6jqgqcOy/V1n/3tvtmPRz6f+JX7VEL+CflY/20ypDSlTl581 sh4tWX+Br+BPgK+QVlPO+NeNg2Ig+HMQX+ZB72TyvzCEakRKZ2mjL01MSJ2hfT6EmyaM6bZ+mng+5zei KTbx9j7MGpc9rr/AK2GR6j2Cbw15JhYh2A7lexoco4 Lvx1+ZqCxnFH0NOXB0cqRCprLcfpkee7eAt4CM7f/ok0h6BQ1HC3LW5b5dVmh7jyB4ogmJ8CUcy0K4Nk p/+Pn+V8hb1mge/fP9KBC/gh7k+9A9uUAuEJ7Dd03RZ+cZwk/5Aoj2IruKSgP2lc4T+X3K7+nUll24Hq X7MFF2AA1uM/3NbH5atJO43I0V13VDs+y4ubJ710bM +HpcXtf11zew/Re8VIu6+Cztjnc+At1Dub1iq4/rH6ntY1fJhwyJc0Ly0r354RG18WkBbcoVRte+75/9 fqblvs/n+1Em5b6/N3m/jb55fE5S5w5bImHg0+3bkN/YisDImS3X7o/z/SgTcffvIfImvtq/5/iib3G+ U5QbpMqY/CrifD+KOPHYEHwVcfBGxPl+FHL+KuKcR4 roUv+Q+gkRT9FxxBDmr2Tfs0q8iuD8EgLRx4uEnjd5Ec4E2chIy40/rtwKquDs22bw9Do/EF38VT/n66 KLfwa+ge7WiutDMX5q+qV4rMgH+RsZaLAsDuzG4Ij+emNvXFxDy52o8olgbcofHOZ+43w/Cjl/FRK/it Hk/bM/iiHyAl+hn+HndzEn8o9blIly9SgTh85t8gcr cfaDMc/+N+E4vqcGu5Ov41JpxW7e+x0YE4qvisSf5yGmmb1or1fnqzpyQ6f+nO+sIq1LK699GKkdh3QG a6Xv82ixgWY/QVZkwEnJcLY9Fzl1gc2T0m09ojmU8AD8M/NCzSGb00LR8xIlEEr+EavL7+PoR/BVrCn9 ZQwMio8b8mhOn//a6EqjZ0dlU7XJ0phhJ5osoK1Ink MPwsx76qq8awW4BiRBtBg7Wuq+wnOXds/556aU81/37l6m/D5f/LXRhJ5BoCXCqZjX2GnG6YbtMFm9A9 Yxylquau9oPqcT9ij9+fmdCaZVfq/kd1JxS0wLo5T0ykd6ew90i0X7dgaF03iL+bTPfqEMZsP+9guO8X rb5bA6Z0q+YrQ8X8EtW1AgFne6I/5+4YPziiJRCm02 fdSdMT07ukJ/ljdhO7Tk9+Qp6oZAbJ914aXEvi10dIf2Lw+/xXfJzh139mh/5ce9J5YXM52T8JxmYc+7 bw+++i6pyaCz64ERw5rcxOdS7TluY5O61M2Jti+8AXkffPUbary/Marx/XUp101+fBV/udPN/J0A085/6A lL/OwL3E02vr8naqxoOz54H5/ugGpp5UrhyPG5/yfL vB/iN0y6Ym3ACkyZrN3GI+y+00040TRoGCbYo7e/mrXs/3/V7Pee/yPflhx8Fbg0bWx+bZ7ChN9/1d7z Kbdc+qaGrRIrPYbVnwTIB2a8Q+D/m9y+/zg2mkjlteYSdchqJ+clw8L4o74cw9RSUUVR1lByjZt3a1kw av1nX34WDhMScWnXrTN3wm4HE2GZNvjO0bu9SRenAR lZno1u6nQpth7DpJ59KW1swekGD+CvjDxFfvs/w+3ejAKhbxr7bf35lrqyd7sFHD0YNAynh1M+Ir5gEn vmIacOIrXGqWaaq/QcPzI+/7LL83+f2Rl/D19zAHiX4w5Mvmf1lExPfaYZYh7sjCnvDa2P2eowQo0Ljm 2nE+UOXI87T9YHBwZ1yd41S/DhVZpY+2Ti1B6a/BDz z/fi/9Q95IfnlTGaXN/5Rd2ofQBI/XTqwlltfwN44yJRzl7R9r+SfvbyHF7/A33l8o0EmsqwB+z0N+H/ L7lN+n/L7k93V+f/DVeX5+u25UF9Wxlj4A25LW2tyr5/cXcmkogXv13QlRE/y05uimEmNb+Om1F55nay vp respiratory/Xyn7cwTxbIm3gZiT5lQ9gzbUVTm3x4sK1ru8vul [file] IFIKCj4+QyM8LFF1fCEgLde5EDEkFExyYGJQTl== ID Date Data Source [id number] 01/30/2020 03:57:44 PM EDT [facility] Name Value Range Interpretation Code Description Data Sudha rce(s) Supporting Document(s) Amphetamine [Presence] in Urine by Screen method [facility] Benzodiazepines [Presence] in Urine by Screen method Negat [facility] Cannabinoids [Presence] in Urine by Screen method [facility] Benzoylecgonine [Presence] in Urine by Screen method [facility] Methadone [Presence] in Urine by Screen method [facility] Opiates [Presence] in Urine by Screen method [facility] Oxycodone [Presence] in Urine by Screen method [facility] Fentanyl+Norfentanyl [Presence] in Urine by Screen method Negative [facility] Service comment [facility] Results below the indicated cutoff (ng/m L), are reported as"Negative." Note: for medical purposes only; not valid for legalor employment testing. ID Date Data Source [id number] 01/30/2020 01:29:26 PM EDT [facility] XR CHEST FRONTAL ONLY [id number] RESULTI nterpreted by:Arias Leger MDINDICATION: Dyspnea.TECHNIQUE: XR CHEST FRONTAL ONLY [id number], 01/30/2020 12:01 PM, 60 degrees upright.COMPARISON: 12/18/2019.FINDINGS: [...] rce(s) Supporting Document(s) ID Date Data Source [id number] 01/30/2020 12:57:24 PM EDT [facility] Name Value Range Interpretation Code Description Data Sudha rce(s) Supporting Document(s) [facility] QPZAZk9kJqJNEcHl87/WSFfgIZVzh9PeNPwbECc5ZTsrUMZyM2XoKVV7zN6pLSP2OLvAXwTnBsAhYEO8 [facility] ObYbaEWvZeFYJbWorNEwPbDNdxYacpoMFeRD7WbPY8WXHyT28oMNIqYGGtZ4MvAJA3VKM+Ru6GGZZhjH FdNJ0VGdcV0L1qm3t5ZK7e5X8SsTWXZJgH1orKh33lFClEr5geBlTITmFJoEi3H6F4taUle51UuoSSdZ olgRVhtEONdiehZW71P655iWyAeT1Fl4oXIFrzvPpo 91MmHjtbsD//ifXVfK+h8g6ViuOWUd+51A/UP31x+2PEl5n8UKm4i+l7gC40XIXBxMeJx4bf8Ohp3QUq Bujfj4X2xY0ux0Z9M0+fvj8+Jeanna/Dj6/OwZO/82NggcwayYDTyATAe7Sb9DmGMTWx0npiUxz6DV4wCn [file] ShR3LEZ8NRywZPMHCu7U ID Date Data Source [id number] 01/30/2020 12:39:12 PM EDT [facility] Name Value Range Interpretation Code Description Data Sudha rce(s) Supporting Document(s) Consultation [facility] FBWHPo6rKrGQAqLt96/CZRtlMWNnj5ZtCXzqQPv0CLhjVDPmH7GmADM6tC9kXBD5PVgHLuWnReRjZBF9 lbm [file] AgICAgICAgICAgICAgICAgICAgICAgICAgICAgICAgICAgICAgICAgICAgICAgICAgICAgICAgICAgIC AgICAgDQogICAgICAgICAgICAgICAgICAgICAgICAg ICAgICAgICAgICAgICAgICAgICAgICAgICAgICAgICAgICAgICAgICAgICAgICAgICAgICAgICAgICAg ICAgICAgICAgICAgICAgDQogICAgICAgICAgICAgICAgICAgICAgICAgICAgICAgICAgICAgICAgICAg ICAgICAgICAgICAgICAgICAgICAgICAgICAgICAgIC AgICAgICAgICAgICAgICAgICAgICAgICAgDQogICAgICAgICAgICAgICAgICAgICAgICAgICAgICAgIC AgICAgICAgICAgICAgICAgICAgICAgICAgICAgICAgICAgICAgICAgICAgICAgICAgICAgICAgICAgIC AgICAgICAgDQogICAgICAgICAgICAgICAgICAgICAg ICAgICAgICAgICAgICAgICAgICAgICAgICAgICAgICAgICAgICAgICAgICAgICAgICAgICAgICAgICAg ICAgICAgICAgICAgICAgICAgDQogICAgICAgICAgICAgICAgICAgICAgICAgICAgICAgICAgICAgICAg ICAgICAgICAgICAgICAgICAgICAgICAgICAgICAgIC AgICAgICAgICAgICAgICAgICAgICAgICAgICAgDQogICAgICAgICAgICAgICAgICAgICAgICAgICAgIC AgICAgICAgICAgICAgICAgICAgICAgICAgICAgICAgICAgICAgICAgICAgICAgICAgICAgICAgICAgIC AgICAgICAgICAgDQogICAgICAgICAgICAgICAgICAg ICAgICAgICAgICAgICAgICAgICAgICAgICAgICAgICAgICAgICAgICAgICAgICAgICAgICAgICAgICAg ICAgICAgICAgICAgICAgICAgICAgDQogICAgICAgICAgICAgICAgICAgICAgICAgICAgICAgICAgICAg ICAgICAgICAgICAgICAgICAgICAgICAgICAgICAgIC AgICAgICAgICAgICAgICAgICAgICAgICAgICAgICAgDQogICAgICAgICAgICAgICAgICAgICAgICAgIC AgICAgICAgICAgICAgICAgICAgICAgICAgICAgICAgICAgICAgICAgICAgICAgICAgICAgICAgICAgIC ClPGSfWQCsMOMgGTUfPLw9K4xtAKVmMXDjGU8nAOf8 Jz8+OBpRTpCdMME0zkYigP6JID2nn6KlQOagSGVdq4WjDHj4PT6QLFKkSEbrTL5IYFxsgk1PSGSyDSHa gHPIz5zpNzBzKUP8ZVNoNxtpCW0VMBMoZ3yuyzQmZQCaMAOYXMbeRVJMDWzzJEIDOJOvBEShMqNxPeJd DPMwABImFAQDIWF4UKHyWoXjGYpeVG6Sk6EovVA0MX o+We1PND5ds9AeATa8PsFjNS6tyq4EDRkGBuMoG1CxfaJ1JHZyGMBjNx2TQOVtVMDgrMV6RzVrJFTOTv NiY0RlvW90EPVKUn1+ZDcnhsXuBszPVxTpEJKgx2MpXMy3AA8GSYXjLWh1cELkR46bs7LexDOtHylbYH qbwtGuXoCYuXPnyWAfPHGXYEJlcEN2TyM8GbCrSwVy PAe2BuMkKT1gLQuuAE0XDQW8LRtuOFAnSOOrS5nDWoQnBREtDwLwmIxuNH8BDcTkM5SgimZvzNZ4AzAe IFINCj4+YFfvhfRhWfdLClE0GIDvd5BsIFw5IJ2SEEDkNEsrYR8DCFRvgN6iKExdPN3PCbX2PQWvWHWX PwLmP73pvIOnEKu9A3IzYxNwOQBjKripBTYlWBhwRh FtZXMgWyBdDQogID4+ID4+AExjKX7EOTphayZqLCFjTl6KVPZiWTNpOU2bJXRsHGUzP0B6eSixTIIACh LyF5hruwpiNB0dALFwX887pTpyswGiZLMyKKPwZf3JERSlBAH5LFRemPCaKUIoRRZKBNxjOB3CxEAmNQ T8rJ0lHNukSRDkXQExE1vSBmJbsTljWL07sYkhazUc bCBdDQo+Ky0SOP4tw5AjWAa5klMbHKqtIMI7FAvzZKJgNJBaVEWcQBU1YNZ0HBWQFwFtDSIhWSFoSJld KRWiRAIasj6PVMTnQZD3OQS8LmIiBYTaNBJrKZntGONbGEPsXCPhYHAxBYDeSQ8JGmWuCSExUCVuNGmr VWWeBNOtkp5TTQLaHWXbMpc9YjIpHHEoMSEoDYamLI MwBVSdLFCxZBNnGJQfOZ9YScLqGWGbYLS7XJBtWORbFLRctm3GRAHvTWNbPucvDFMkVKXsPPNgYLzhKS IoVPWrBIh0FAVwKANeYB9JMsEvWFMhZWXzCKCmLXSrMBHcil5CYMTsFPLlPRpiYBYlCUXaZYJdBImwSZ KxTFQ6YUG8NWUgGWOfNX4FUnNkAQLcCMw4YSHoNWJg CCPpqx1CXMCdLNPzYUx7WGXbDGOwNCMcFZedPBEqQCLsADKtZUJnMVPmVZ5DHvWzLXXyLgThAcsdHDKp AXOvng9NKDIrBLApKkK4FMFxUWWoUNNcCMxhKVNqUWV1YMU3QFSaMGAlSV6OXuFiZPNkRhj4MPQeDUSh LYYzdn7NKDMsUQLeSrLpGiAwTOJdBGLpTHaxXGIuUM I8Dwg2MZMqYEWgWY2MKyMjMLMlDcy4AWTbDNUlQDPlwh2QOTSpWDVjGMl8CkQtSJIvXOXtVEnyMCOeFY V0RZU4IRKtCMNpIN8OBxPyPYFwJLH0EqGeLPJqUWHosm3PMBJmUJB9DUshEPXxIGPfXQLiFUxaYWHyGU JgYKB1BMOnBDRyWN7DSzQpHZAiSZBwFDLjCIGbIKBx ma4BOPSlPMW3FBJnEzXpMXCwHDCoQBnqHRZtRKCuMvn1LJZqXXIlQJ3XVvOoCCGkRLE4LuljVHElKUFy yl4ETWLdLNI5Wnv0MCUkTHLjUMMjJOecFIGiBQT7RyV4TTRyACZoJR1XVsNoJVVgCCt4JjmlOLGnMMQh hd9ETJNnPJL4SFI5VWYlSDIvUTKhMZpyJWJoVCH6Nh roANTsPNUiSS5MGxIxSQGhEEb2TITbNUJkLLQyqy6PTMTpQUF7PIr2KLDfDYTvFUNtUGlfTPEgOYU3CU p8LXDkFWGjIY3INfGtPUKpWUkeHJGkDTHyNIBpsi6THLAcTOV4BUJ3IRJxZAJzTYJmAQeqJFWfWCPlYW N6TXQsHZDrZN4IRrTuDOSpHIYrVhxqGBVmBJEwqo6X FUImFDR9RZT1NhXrRZHyHIArXNa9miFxwTUyETy3UR5BR7TmaxDzXSGJVj2Mq219IGC7PDRaLi9KW5xg Ex2tWDAsAKJCHl1MTDe1JXZuCbKrQKJvLQIwOBFsFNJ9A8UvX0JhShO9Qpy7Rhs+ZXpbAsFvDFE2ZuA4 BNV2KOA7EoAdQrSkPcV1IEnoIklcNG1cCIXMWy4+PHjmzOIzpRfrGGXLFsQeAWC1ABlxCPMRWd6E ID Date Data Source [id number] 01/30/2020 12:09:43 PM EDT [facility] Service Cmnt XXX-Imp : NoneMicroorganism XXX Cult : 2019 nCoV Real-Time RT-PCR: NOT DETECTEDTest performed using [employer] Respiratory Panel. This test is only for use under Food and Drug Administration's Emergency Use Authorization.Additional information is available on the following FDA websites for health care providers and patients. https://www.fda.gov/media/704393/download , https://www.fda.gov/ma mina/686345/downloadPolymerase chain reaction is NEGATIVE for Influenza A H1, H3 and 2009 H1 viruses, Influenza B virus, Respiratory syncytial virus, Human metapneumovirus, Parainfluenza virus 1,2,3 and 4, Adenovirus, Rhinovirus/ Enterovirus, Coronavirus HKU1, NL63, OC43 and 229E, Bordetella pertussis, B. parapertussis, Mycoplasma pneumoniae and Chlamydia pneumoniae. Name Value Range Interpretation Code Description Data Sudha rce(s) Supporting Document(s) ID Date Data Source [id number] 01/30/2020 09:33:00 AM [facility] Service Cmnt XXX-Imp : NoneMicroorganism XXX Cult : 2019 nCoV Real-Time RT-PCR: NOT DETECTEDTest performed using [employer] Respiratory Panel. This test is only for use under Food and Drug Administration's Emergency Use Authorization.Additional information is available on the following FDA websites for health care providers and patients. https://www.fda.gov/media/064493/download , https://www.fda.gov/ma mina/884590/downloadPolymerase chain reaction is NEGATIVE for Influenza A H1, H3 and 2009 H1 viruses, Influenza B virus, Respiratory syncytial virus, Human metapneumovirus, Parainfluenza virus 1,2,3 and 4, Adenovirus, Rhinovirus/ Enterovirus, Coronavirus HKU1, NL63, OC43 and 229E, Bordetella pertussis, B. parapertussis, Mycoplasma pneumoniae and Chlamydia pneumoniae. Name Value Range Interpretation Code Description Data Sudha rce(s) Supporting Document(s) Microorganism identified in Unspecified specimen by [facility] This lab was ordered by [facility] and reported by [facility]. ID Date Data Source [id number] 01/30/2020 10:11:21 AM [facility] Name Value Range Interpretation Code Description Data Sudha rce(s) Supporting Document(s) Leukocytes [#/volume] in Blood by Automated count 7.9 10*3/uL 4-10 [facility] Erythrocytes [#/volume] in Blood by Automated count 4.17 10*6/uL 4.1- 5.3 [facility] Hemoglobin [Mass/volume] in Blood 12.7 g/dL 11.5-15.5 [facility] Hematocrit [Volume Fraction] of Blood by Automated count 37.0 % 3 6-45 [facility] Erythrocyte mean corpuscular volume [Entitic volume] by Auto mated count 88.6 fL 80-96 [facility] Erythrocyte mean corpuscular hemoglobin [Entitic mass] by Automated count 30.3 pg 27-33 [facility] Erythrocyte mean corpuscular hemoglobin concentration [Mass/volume] by Automated count 34.2 g/dL 32.0-36.0 [facility] width [Ratio] by Automated count 13.1 % 11.5-14.5 [facility] Platelets [#/volume] in Blood by Automated count 283 10*3/uL 150-400 [facility] Differential cell count method - Blood [facility] Neutrophils/100 leukocytes in Blood by Automated count 65 % [facility] Lymphocytes/100 leukocytes in Blood by Automated count 28 % [facility] Monocytes/100 leukocytes in Blood by Automated count 6 % [facility] Eosinophils/100 leukocytes in Blood by Automated count 1 % [facility] Basophils/100 leukocytes in Blood by Automated count 0 % [facility] Neutrophils [#/volume] in Blood by Automated count 5.11 10*3/uL 1.8-7 .0 [facility] Lymphocytes [#/volume] in Blood by Automated count 2.24 10*3/uL 1.2-4 .0 [facility] Monocytes [#/volume] in Blood by Automated count 0.47 10*3/uL 0-0.8 [facility] Eosinophils [#/volume] in Blood by Automated count 0.04 10*3/uL 0-0.5 [facility] Basophils [#/volume] in Blood by Automated count 0.02 10*3/uL 0-0.2 [facility] Nucleated erythrocytes/100 leukocytes [Ratio] in Blood by Automated count 0 /100{WBCs} 0-0 [facility] ID Date Data Source [id number] 01/30/2020 10:24:01 AM T [facility] Name Value Range Interpretation Code Description Data Sudha rce(s) Supporting Document(s) Acetaminophen [Mass/volume] in Serum or Plasma 10.0-30.0 L [facility] ID Date Data Source [id number] 01/30/2020 10:24:01 AM [facility] Value Range Interpretation Code Description Data Sudha rce(s) Supporting Document(s) Bicarbonate [Moles/volume] in Serum 26 mmol/L 22-29 [facility] Chloride [Moles/volume] in Serum or Plasma 102 mmol/L 98-107 [facility] Creatinine [Mass/volume] in Serum or Plasma 0.49 mg/dL 0.50-0.90 L [facility] Glucose [Mass/volume] in Serum or Plasma 91 mg/dL 70-140 [facility] Potassium [Moles/volume] in Serum or Plasma 4.4 mmol/L 3.4-5.1 [facility] Sodium [Moles/volume] in Serum or Plasma 138 mmol/L 136-145 [facility] Urea nitrogen [Mass/volume] in Serum or Plasma 11 mg/dL 6-20 [facility] Anion gap 3 in Serum or Plasma 10 mmol/L 8-15 [facility] Osmolality of Serum or Plasma by calculation 284 mosm/kg 275-300 [facility] Creatinine/Urea nitrogen [Mass Ratio] in Serum or Plasma 22 [facility] Calcium [Mass/volume] in Serum or Plasma 8.7 mg/dL 8.6-10.0 [facility] Glomerular filtration rate/1.73 sq M pre dicted among non-blacks [Volume Rate/Area] in Serum or Plasma by Creatinine-based formula (MDRD) >6 0 [facility] Glomerular filtration rate/1.73 sq M pre dicted among blacks [Volume Rate/Area] in Serum or Plasma by Creatinine-based formula (MDRD) >60 [facility] ID Date Data Source [id number] 01/30/2020 10:24:01 AM [facility] Value Range Interpretation Code Description Data Sudha rce(s) Supporting Document(s) Salicylates [Mass/volume] in Serum or Plasma 1.7 mg/dL 3.0-30.0 [facility] ID Date Data Source [id number] [facility] Interpret[facility] Code Description Data Sudha rce(s) Supporting Document(s) Troponin T.cardiac [Mass/volume] in Serum or Plasma <0.01 [facility] ID Date Data Source [id number] 01/30/2020 10:31:11 AM EDT [facility] Service Cmnt XXX-Imp : NoneMicroorganism XXX Cult : Test not performed, see COVID-19 PCR order for results. Name Value Range Interpretation Code Description Data Sudha rce(s) Supporting Document(s) ID Date Data Source [id number] 01/29/2020 09:21:27 AM EDT [facility] Name Value Range Interpretation Code Description Data Sudha rce(s) Supporting Document(s) ED Provider Note [facility] MGJSCj1bKeXPMeWl21/VEUlxNNTbw6VzJUdbNFy3KVqhJQYkP0YjDDG5mZ1lPEW4AWqSYqLxWqCbTDF9 lbm [file] UTDDRDkmBU6TBK6upeU1BV0YqDGrMEZvDLMlnZIkOOm4Z41wuLZfKVzwTB9ASTJ+Dulce+Ew3CZKRnKBPq EGEvTyPaMIAOJeAaA0FgV5DGp5AuF7YkJU54mDvthq KzOUepOR4HUV2vJXUsPGZXSB4XcRVnxC1fadPvNzJhKSYRLqWlK24fzDJjTLAqEWI7HNYoNw5MZRSjG5 DkqsVhqKaimwVzCIJqHLLMPA9PDRlwwqLspQDzuZtlRQ70bMceAZ0WZu9NHqThVY9abr5YiLAtPi8LTA F6Ee8VRYVgMGLwNCYcXOJ5ZPRyZlHiUYzqOSNfBEMe LDI5MGApTLTnPJ8FAyFhHVHiCkz5MMYhEZXdSQZrxg1EGWDeEDY6FQY7FPNuDOKkLXBuRYfnAIDmEFCm JVY5GUYoZWXlKB3XMyUjSZDlDYXgBpAkDJJeMFZmfd8OQWDqAFVeWeF0MbAwAAUjIQTkFPhwIDSyIFI2 WaP4VSNqCXFbWC3STkQtNZTyLYR5HoPiZKMeCVGqfl 2RJNEjHMVnXDz8HbOsEJKnQQHvRKjzZZYdGCR1XXm6AZZrUUBtZN3YVaQaZPRmEKY4UZvmQJMvKDRvda 1XUFZxWGYjWuK0MLEvVBWgGSXuNUjxTKIpFOL9XsFlVESrXAGtPI5JKpBjIYPjVZA9FJtgBDFmZKJunw 6EIOWaENXfHjWdHDAiAVUyFCMeVJjeBGKzDVJ9ORO9 OGAnKVTdAT8EOlQvMNIlKvG0TWWsZBHfXYUzzm8KDOQnIEIlPPoqUPQzMHYdHPTxEUlyWUOdUBTmIJIn QZQqFZUbHL6QSxWzYMDcNeYtVhWpUAYtQTZroi2NHJBwCYLbCvQiEyAtJKYsUAJaRKmnMWVaRYNnHXZu HFYlBMAeVR3SMiAgWIYwBkY9UCChDZPwIZImun8DSF EjPFZvILP2LEClWZLnIXGeUSwkDGUkJYC8MEQ7ZXMrKJCvCC6EQyWoQOPgTvWlOXJgWQXiBVUzwx5AGE IsVTYzLgYtPASzNNDiKDBpPEczSHViXNY2KcAzXOTkTCLtHL6EVsGkRXHsEkYsENOvRSMtZLQjrw9YBV YhSADjSrx1BVGjNDIxPUEwUOgfQIHxRAA9IJp9TWBr RUGuSR5ZOlBiJMTyDjclFNsmGQCxEJWihy1PRPPvYDSfOLK1YfAoZLKbFALaOJdfKJNjZTW5KsceMOOr SSLdGZ7VOhBpVJXrGdscMKpyLLPnPNNzch2TBDBhLTA8FZT4WXKpGJEhKFAgUHgeVJAzOUGsPbK6DVOu JAXvOJ1WStDpZPFjUKW4DfWbZVQsVBXdqw0CJOMdNN P1XJNfHaXvMQWnYBLcSFbeBXOwDCOgKLkvGDKdPTLeYI5DJsDwXBIdPARoDbEuWBGlBOFwsx1UFFVnTC R5PTIaIKNgGLJcXEZfVNc5zdBgvMZmWIf5ZY0CC2YfssIpTRZAGr6Qj460BVVeFKQdWd7MP9jhGe6uRR HnXWEVLa7DKCl1DaSlDcMdSjP0WNR6PZJiKSR0Hbw7 FPZcABOnUbE8YyL+JEt6LUX6SqYzRGaxVJW5MiHgTyX9CXH1S3PhTiVpIXi3KL4nUTCKVe7+DQpzdGFy fDqjGCUUMwQfXga8WTeuIJNUMl2G ID Date Data Source [id number] 01/28/2020 08:54:16 PM EDT [facility] Name Value Range Interpretation Code Description Data Sudha rce(s) Supporting Document(s) Consultation [facility] WYBOKg3aIbOQAbYq02/LIOwyQKLcx7CmKGkmEPg9ASlsITZpB1ZrQRG7pT1sVJD1NRzVRxGuPuOqPYO2 lbm [file] A9YrRgEBCiJmg3BEIpPjq+AS1sQQa+Rf2Qu2BhsdV8guAfMEciYCUhRJ9FMDBCN1UHTr== ID Date Data Source [id number] 01/28/2020 01:07:50 PM EDT [facility] Name Value Range Interpretation Code Description Data Sudha rce(s) Supporting Document(s) LIPASE 44 U/L (65-230) L [facility] ID Date Data Source [id number] 01/28/2020 01:07:50 PM EDT [facility] Name Value Range Interpretation Code Description Data Sudha rce(s) Supporting Document(s) SODIUM 140 mmol/L (136-145) [facility] POTASSIUM 4.1 mmol/L (3.6-5.2) [facility] CHLORIDE 109 mmol/L (100-108) H [facility] CO2 29 mmol/L (22-31) [facility] ANION GAP 2 mmol/L (7-16) [facility] UREA NITROGEN 9 mg/dL (7-24) [facility] CREATININE 0.52 mg/dL (0.60-1.00) L [facility] BUN/CREAT RATIO 17.3 RATIO (10.0-20.0) [facility] GLUCOSE 84 mg/dL (70-99) [facility] CALCIUM 8.7 mg/dL (8.4-10.2) [facility] GFR >60 ml/min/1.73m2 (>59) [facility] GFR ( AMER) >60 ml/min/1.73m2 (>59) [facility] GFR INTERPRETATION [facility] --NORMAL KIDNEY FUNCTION OR MILD DISEASE - GFR >OR= 60CHRONIC KIDNEY DISEASE - GFR 15 - 59RENAL FAILURE - GFR <15 Est. GFR calculation based on the MDRDstudy equation, which assumes a steadystate for creatinine. Est. GFR should notbe used for medication dosing. ID Date Data Source [id number] 01/28/2020 12:54:30 PM EDT [facility] Name Value Range Interpretation Code Description Data Sudha rce(s) Supporting Document(s) WBC 10.7 10*3/uL (4.1-11.0) [facility] RBC 4.61 10*6/uL (4.00-5.40) [facility] HGB 13.6 g/dL (12.0-16.0) [facility] HCT 41.5 % (36.0-47.0) [facility] MCV 90.0 fL (80.0-95.0) [facility] MCH 29.6 pg (27.0-32.0) [facility] MCHC 32.8 g/dL (32.0-36.0) [facility] RDW 13.3 % (10.5-14.5) [facility] PLT 276 10*3/uL (150-450) [facility] MPV 8.3 fL (7.1-10.7) [facility] NEUT % 66.0 % (35.0-75.0) [facility] LYMPH % 28.1 % (16.0-52.0) [facility] MONO % 5.0 % (0.0-8.0) [facility] EOS % 0.4 % (0.0-5.0) [facility] BASO % 0.5 % (0.0-4.0) [facility] NEUT # 7.0 10*3/uL (1.8-7.7) [facility] LYMPH # 3.0 10*3/uL (1.2-4.8) [facility] MONO # 0.5 10*3/uL (0.0-0.8) [facility] Eosinophils [#/volume] in Blood by Automated count 0.0 10*3/uL (0.0-0 .5) [facility] BASO # 0.1 10*3/uL (0.0-0.2) [facility] ID Date Data Source [id number] 01/28/2020 12:50:38 PM EDT [facility] Name Value Range Interpretation Code Description Data Sudha rce(s) Supporting Document(s) COLOR [facility] APPEARANCE [facility] SPEC GRAV URINE 1.021 (1.003-1.030) [facility] PH URINE 6.0 (5.0-7.5) [facility] LEUK ESTERASE (NEG) [facility] NITRITE URINE (NEG) [facility] PROTEIN URINE (NEG) [facility] GLUCOSE URINE (NEG) [facility] KETONE URINE (NEG) [facility] UROBILINOGEN 0.2 mg/dL (0-1.0) [facility] BILIRUBIN URINE (NEG) [facility] BLOOD/HGB URINE (NEG) [facility] ID Date Data Source [id number] 01/28/2020 12:40:47 PM EDT [facility] Name Value Range Interpretation Code Description Data Sudha rce(s) Supporting Document(s) URN CULTURE HOLD [facility] FOR ADD ON CULTURE ID Date Data Source [id number] 01/26/2020 09:54:59 AM EDT [facility] Name Value Range Interpretation Code Description Data Sudha rce(s) Supporting Document(s) ED Provider Note [facility] WIPMIo7rFaGEAzLo61/KYWzpCPWyb0UfFZgqKHy0ATtgZMZjE2RbNOQ9sN3nDRV6IXvXUzWoFkVoDQOk lbm [file] MDExMyAwMDAwMCBuDQowMDAwMDYwMzEwIDAwMDAwIG 5XXjBgQABzReV1YAOwRHXeSFKhnk9ZYQYeXKV7PVI2BzSkRNHuAFTjHVbzXCEiECDeOaR6XPFrDYKtVN 4RXyLdTXPeBtJ4LJJjYMCnDBLxvj8FIRQwXNF7YmtkWnUgLLBrGERhODedKWCkDPYfSOq9FNOkOTAdTB 6TTdHtIXFgWbCoJPHzNEKoYUHxzl7AOVAzREP6CGP8 TgTuBUAvDRTeWQrlFWZuYHk6FXn0EZPzFSXpWA1FJkRxKVDzIlRfKAHtSLFxIIHwsk6LOJHqUEU1LXRt HpOhRTBnBDUcUAemWHHjIGp5NMc0GSYcJTHqVT5QPxQlZNEeEqH1ZCUdOJJhLLGerm4XVUDhDHH8WmU6 DwIlKTNdBAVjCEgbRTPhYXo1KPP7IYTtAVYhUI2PDw NnOKKyXax4YZEvHDWpFADmpk0AVDPtSZH8NhciFqAvUGOfPTVhPPbzVICdBYh6BHkvAKWpYWYeMU9XHe YeGAXrVfccGbjfGTEtHKYbcd4ERHHnPCD1GDW8OOLhHVGtVEKlNQouMHQmSDc6HwE8KJEzPSKmHV5WAr PdPAVdYuv2MOgkEEAuFLVmwh3KPJWkTGL0TYx4GRNr YQGyOZRtMTyyXOAcKXo1TLL7FENgGJRlGV1BZgPwVQEtFsoaFCldGEIlFEUxod4KSNZyICW1UYOrYqIn IJHfOUYaYYq1roEkjOMhGIu8FS8VJ3BwsqCuWwFOXv3Zs327DOo2RJOjCv1UM0ayBp2eORKkUCECNg3T BAv2UXF7BNc5TkduCoyoSjJ7HAO4LyFlOLJuZCodIA M1YWE+JVolILA5PeI9YOHeANYaUerlHTWwKAR5KqGnVEWaJkAkRU8nOGXYSy7+DQpzdGFydHhyZWYNCj o3ToDnSWctOOUIFi0R ID Date Data Source [id number] 01/26/2020 09:12:30 AM EDT [facility] Name Value Range Interpretation Code Description Data Sudha rce(s) Supporting Document(s) ED Provider Note [facility] MNRTFd6xZpMQJpZv68/DDEwjAZJmm1QvUJyfLGj5QWquEYOwK4YmJMH2uS2bQZV4LDtWMsYpXwXaRTGy lbm [file] Rufino+3ZJBTMlf801XRvl/7gTPBf/+yo7FQlwsoJBh2Pyr6QsyxHKG+CjaPSWkikSIsofhAJNIYUGLUTu WjMr7CU58ScPuSNqXLZPRhxv5lNZk+31KhLJsHWvP+ 3m/qePINEwEceq5AMiqXiNYQGPTUN22Z8YhvMiGNmIXBegNS0xf4jAiMojYQUsozeVikuKPxFVwXXbuS VZ24E4UVnPz4+8P0SZkI1O4ewb47hhK2rjuqMSQ2nigu9HC6+0S/zGxYSfTGKxTcgNcNh66rOvtdb0CY IZpq/dnoehfucTNssHzkBILaRgcX6IlGNUsrtOweDY jbywBzU4FhLnqZFCF5UGdqFuVK07nGODOZxVjftdfOepN8dLIDR3fTwBz+S+ZmDu/2W/q+i3QoUoOZEN bl27ZazYIWIJUmerFGoZE6D2GQ7xwZ3Qzz5W2FJ1MnxduqWx0M9U5plREDtCrxvFJqsrLWNnzIZWqzYi hL2L6X4glq6WcreAedd+r/DQSX6C6uIHV4sNSMqzUG ADVfIkyppePo/O8s9gQJeadn3P5W2dMiDLpBTzy04SUn3bVEN56gWTAJ1ydYauU8DCFiAK8IWDpf7thT zKaRNA+JHJgL0KMbd6eCoMzb+kUZKSgOuQOSJk/DDE95YP7yb4csTujDuzsaUWke13CQlt+3S82yK1wh 5axAFh0BZ/5rj9kZXK5DsK4Cnq638h2KKKhkTyk0ok jB1Rmrctshol/8DWQYWAcmDbyI5eJzdNokeZ+h7Px6OnNyFvSL2bIyAjUd4YJTNs8TwtNIRagTBib+4U sa8bkE9HJhCiNLixX+GpS3Vu1P2/ZSk6FZ4JIkV6+bWaLB8K1edXVMeuO9qENThFf8uZLdmoQJuSGUeY c5Zm3S/dGdrB7ychR4w2SwwlU+FMt0apoClzLjhiKM EeOW1VXtPy5VTERrJUdOpVsUeeTWN37a6rlTSb0+IBVWdogUnEtVktHN5a2/GARAGE WORKER+ALwZeP9QN71ESO2H [file] WfB4WZehFVBKRe6R ID Date Data Source [id number] 01/25/2020 02:45:45 PM EDT [facility] Name Value Range Interpretation Code Description Data Sudha rce(s) Supporting Document(s) Progress Note [facility] AVKDSl1vRkEIRaXd54/AAJfnTRIlb1JmKPwxBBc5WGddOCZbY6ZsVIO7cX5lZQK2OGgICkFfCzAnQGZw lbm [file] [facility]//2/959pU057nqrMpY7oi52mHYLC8GWKSW07AG [file] AgICAgICAgICAgICAgICAgICAgICAgICAgICAgICAgICAgICAgICAgICAgICAgICAgICAgICAgICAgIC ANCiAgICAgICAgICAgICAgICAgICAgICAgICAgICAg ICAgICAgICAgICAgICAgICAgICAgICAgICAgICAgICAgICAgICAgICAgICAgICAgICAgICAgICAgICAg ICAgICAgICAgICANCiAgICAgICAgICAgICAgICAgICAgICAgICAgICAgICAgICAgICAgICAgICAgICAg ICAgICAgICAgICAgICAgICAgICAgICAgICAgICAgIC AgICAgICAgICAgICAgICAgICAgICANCiAgICAgICAgICAgICAgICAgICAgICAgICAgICAgICAgICAgIC AgICAgICAgICAgICAgICAgICAgICAgICAgICAgICAgICAgICAgICAgICAgICAgICAgICAgICAgICAgIC AgICANCiAgICAgICAgICAgICAgICAgICAgICAgICAg ICAgICAgICAgICAgICAgICAgICAgICAgICAgICAgICAgICAgICAgICAgICAgICAgICAgICAgICAgICAg ICAgICAgICAgICAgICANCiAgICAgICAgICAgICAgICAgICAgICAgICAgICAgICAgICAgICAgICAgICAg ICAgICAgICAgICAgICAgICAgICAgICAgICAgICAgIC AgICAgICAgICAgICAgICAgICAgICAgICANCiAgICAgICAgICAgICAgICAgICAgICAgICAgICAgICAgIC AgICAgICAgICAgICAgICAgICAgICAgICAgICAgICAgICAgICAgICAgICAgICAgICAgICAgICAgICAgIC AgICAgICANCiAgICAgICAgICAgICAgICAgICAgICAg ICAgICAgICAgICAgICAgICAgICAgICAgICAgICAgICAgICAgICAgICAgICAgICAgICAgICAgICAgICAg ICAgICAgICAgICAgICAgICANCiAgICAgICAgICAgICAgICAgICAgICAgICAgICAgICAgICAgICAgICAg ICAgICAgICAgICAgICAgICAgICAgICAgICAgICAgIC AgICAgICAgICAgICAgICAgICAgICAgICAgICANCiAgICAgICAgICAgICAgICAgICAgICAgICAgICAgIC AgICAgICAgICAgICAgICAgICAgICAgICAgICAgICAgICAgICAgICAgICAgICAgICAgICAgICAgICAgIC AgICAgICAgICANCjw/qXQwH2hvqAFvnwP0T4hqTp3Y Ci7PMO0hf4YcJVYwWMsjxfJjXhkUXrRvZZZrUtsOUnr5RXuuXF7PpGEyD6HlK3PlEFuyYX5TPWFtJOHq tQVrQOZeYHZeWxH9CXPnMYhcBX1GtPIdZTnvZDTiCOEjSA1TLNRaC400ufCvTJ6YIt0TQaNhRM2til6D WWxbNMLqZfsSCvm2YCawCO9FfNDwdROzXGIfZEPEMa IiV7owy6MaImTeJUCRZJiaFG7Tj8UpeJBfCPp+Dz3RJF4ne0ZlSBgrFDNlKL5rhf9GUUiNUvGlH9NtcB esMSGij4ylHTMrDO4qxSNkDBW7PAnwsoTzRCQvTATrzEowHLZokPQqxJIlZCxEG2gcCIWvQR8qMI4kCX DxGIBuJnW0UOEDIN8NXGFzGLJcpLXhTZVxRLEKWE8L IDoxCPJ7CIUlsqJwaLKhIYooFO2DJAGluiOkCPmwWWQHFZe+Ks4EJP3tm0AnYUiyXJKqKZ7noo8ANDdU WlHrG6B2tRGvJ1Q1ZGoaQh9IHVVjVOAxEBcgDIAUCLkoZR1MIY9nkaR4NE7JyWIiSLRqYOAenGLaTSi7 J75coNXiKVfnLR0HWFN+Dulce+Zb9JUVWlFTKwZBVrFo IeFMVALiIoJ0QoI0JFz7KpP3RfME90lGlquyQcHVueGS7WSS8aZKZeGFJWXZ9CeIVenZ6bkeCoRPGpOG OZQfPvY83swGHbZMLlGNB1VSWkPt8HIODrM1NsdzZjtFzvraCeFAOxGGLORW9DAAqxbqMyhPMayIbsBX 75gDcnOD3XEi1WBzTdEJ0gpp6LcBIeAa2KHYZtCv7I KSFjTPTlGJSxDAD8ODHvEgErJMqqTTDtWAPsFAW6SHIuOAVnNK3DDjEpRXQsJXmtCELmYLXiANKbqn7B JHPpKETvZBOjXPMhIBJsFMOdXKhrDNUwQHPjETA5VSTlVEBcSQ5ZQjHwFUDeFZBlTIhoOJFxYZOsvq2W MDAwMDAwMjQyMyAwMDAwMCBuDQowMDAwMDAzMzgyID TpDMHrFK2HXmCyERVjNKF5JufrIUOsTGKend6HLZKqUVWsWpz7VTPpQAWwSHHpIRdxJDXgMWG2EoO9PW TvILLoGR0NOdQaNJUvARJ0KRliCILaQVYawd1INOJnNMOqFPAeBULdSHJqLLIkPAerREOaVUI5HOXdGH QdNLGcGP7DHkEfYZAdLCM1VbAmOFRkCMNjbl5NMEHf AVHtCwc8KYIdIIPtVOJzOYshPZBmBKB3DiQ5IKHhUFFtAE0UQfBaRHMjVAesYnQoPBZcQWQfgd9FCODc UMLdNdt5TQNtYIQsDLCdXGcnJENkWRI9PjF1GAXlWQPsCM5RNjAjUSLpAJpmWIOaKODtBAWccu9KOVZn GTWeUBWrHPCkTBJpQZHpVWr3afGtcYIeZKl3VG1JI5 BvtxGhUvYQUc4Py616XPMjDVQxTm9ZZ9dcXy1vKCLrLUNELq1ETGx7EmaaZOT6CAegDAF9TpVbUXXaCO e2ZVilPOG1EBF5Teg+VYydWRC7FBi4ZMXvSFc4ByUeLcTiVOWxLLJ2AvU0ZYLsBB4hVNRSXy9+DQpzdG ExgVhsZXJVPsE2CrjeWZjlOKCYWz1A ID Date Data Source [id number] 01/24/2020 06:36:35 PM EDT [facility] Name Value Range Interpretation Code Description Data Sudha rce(s) Supporting Document(s) ED Provider Note [facility] TPZWFs4vGmORZuDy92/UXNvwRDWkg1TxEIjtSBy7QNgfBGUjQ0HlEOV3lO5gWQI9CNtCShXcKyFeZYTi lbm [file] AwMzIxNyAwMDAwMCBuDQowMDAwMDAzNDIxIDAwMDAw PG5AIxHwOKAeNKI7EMXrOTKeDIHjqq7HLPSwUMOlPXx2NbBbDTAjWMNrZHvaEZUjQYM7FmCsMBHqKHUs CV9YCzZkPVEbLMo8ZuZeDTUqWCQhsd8LQKFeBZVhXbVoPfSpBYEmNRHgNUueSAImCCMzOIC7JYRfISGv VW3EYcMdHOFaPQNxQposEJOrUFQyqm7NSSRdDTFmYt E9MKTjWQZnFQBkBQuuRPMdFZZ9WHRcFNZlYIFcJP8GSiFhXNQvEFwpNUyhVBOoVNAebw8IQLGyTILnCv Z9ToTxGZSyGZBwKHhbEVViPMVvUkakFSYaUTUpGE0CHuYpRVHfPkH8MYFlITItLAVulm4ZNJZzRAKnBO h1NWMpXTMiFUVyDYbzVETsUJR1YIU2CHLbZSHvZU2B WqEwWDNfOyknRQHsOOUoUYNdcr2FTFIwPUVdUST1XrYiIHCaHMGkOYgiCDKiIJPnPGcmSNHjRBDiBJ0P GtScFXKlYwF9VKToBYCiLRHqry7XEHKsZDMqHccjITHsQXDbHILnRJjeONAwSPH2PRQ2KUCiGIMeEA4L YjIsMLCpXmR9SwNnNSWuJCIwsr5AQQGzZKFjPiawRf PeDOJsPJYoNVocTHAnHSQ6AIZ1BNGmJEKwMY2ZEaPdNRSqXavrFJZqZAYgZRMciv9BLNTgQUYtVYS0QP FjYDPxUUExPOptSYLsAJR6HgpsLPBeLIUaUN0SJnGfDILuXsa5NbOoSZEsCCHkvg6BNVJrVXW5QCn8Yp CaFFVbOVYrJZiqEXQiZOQqJMY6QBJtVBYnWC0EJlHn YRVaONOgVoAqQBEfZWTtgi5YTBOmZRN7MZBuDoDpOCIvLXQsCJhgFQZxUUHvPnO3PXTeSAXrEG4RYfMo YEGsZZI7FPOgKHAfUZUpro7OYVQdEFV4GUz1KhHbUBDhIVPzWLlsFQHzGLGtUXD8INGoUVPzNV1RYpQh HDFfZNV2YcJrNGPwCQWyje9RNAYnBBZ2Lry0FSCbRT NxSTJyXUzkFMKxVQD4NZN6FVJeCBCbBZ9ZGhDkCXGkXWXbReGjUUSbIEBkht7GGRSoFDT0WUEkIGDzTI AjZJZsNBlrQGAcUIU5EZk9NEChICDxQO9JMkCjEDRyGFD3PZLxPAAqRRDjkf6CrPJnhMktup2NSQxORe 8VjRkbKOHwUFnpEk2kfRL6TSSrADEYQe9NktJbRGPh YCBLORvjWSNvRPFsWRKkEOYlZsP5ZQOnQOD2NxX1PJcoZbE4DGgdSBT6EtP3DPGuDsU9KOS2HXspNXEx ZTRmNjRlOWJiNTcxOWJlNjU+GA1oYSo+Jk3Co0IwgkZ3tpZhFKn8WVq1DJ5FBDHCL4LSCo== ID Date Data Source [id number] 01/24/2020 10:28:31 AM EDT [facility] Name Value Range Interpretation Code Description Data Sudha rce(s) Supporting Document(s) Choriogonadotropin.beta subunit free [Units/volume] in Serum or Plasm a <[facility] (NOTE)Levels between 5 and 25 [IU]/L may indicate earlypregnancy and should be repeated after 48 hours. ID Date Data Source [id number] 01/22/2020 04:19:10 PM EDT [facility] Name Value Range Interpretation Code Description Data Sudha rce(s) Supporting Document(s) [facility] ESDCIe0dFzSRMkAk91/UUNjuQFJec6HxRZkmFGe0MQymDAQpB3IyXDM4mM8wNRN9ZDsEDsMfBaAkTDA3 lbm [file] ZrLSBxUdWZ0PXRz= ID Date Data Source [id number] 01/23/2020 01:01:34 PM [facility] Service Cmnt XXX-Imp : NoneMicroorganism XXX Cult : 2019 nCoV Real-Time RT-PCR: NOT DETECTEDTest performed using the CoverMyMeds COVID-19 MDx Assay. This test is only for use under the Food and Drug Administration's Emergency Use Authorization.Additional information is available on the following FDA websites for health care providers and patients. https://www.fda.gov/media/849220/download , https://www .fda.gov/media/438032/download Name Value Range Interpretation Code Description Data Sudha rce(s) Supporting Document(s) ID Date Data Source [id number] 01/22/2020 01:02:00 PM [facility] Service Cmnt XXX-Imp : NoneMicroorganism XXX Cult : 2019 nCoV Real-Time RT-PCR: NOT DETECTEDTest performed using the CoverMyMeds COVID-19 MDx Assay. This test is only for use under the Food and Drug Administration's Emergency Use Authorization.Additional information is available on the following FDA websites for health care providers and patients. https://www.fda.gov/media/383575/download , https://www .fda.gov/media/720759/download Name Value Range Interpretation Code Description Data [facility] rce(s) Supporting Document(s) Microorganism identified in Unspecified specimen by [facility] This lab was ordered by [facility] and reported by [facility]. ID Date Data Source [id number] 01/21/2020 06:44:03 PM [facility] CT HEAD WITHOUT CONTRAST [id number] RESU LTInterpreted by:Zohaib Chapman MBBSCLINICAL INDICATION: Headache [...] rce(s) Supporting Document(s) ID Date Data Source [id number] 01/21/2020 04:11:37 PM EDT [facility] Name Value Range Interpretation Code Description Data Sudha rce(s) Supporting Document(s) [facility] FLKOAs6jRgJRVmNex9FrDaIgQWSzWX2gigi5A8I0pWUzN9ZgkZAcb4lpL2AmV8QmPYTdMYNWVW7HcFOl jb2 [file] [employer]/3Q7+J/vs+4/cNv2/5pYgawmpmyaS2xf/rN/A0Fi9BXtBYA3/YUqMnkW5h+pe33Og8e/B+4feh7/t8 3ge/+j8OQ7vqj0rR8TmQPmzf0qKNO2e7Qi3q+X2gbEr1yyoH5n4l/PyQ9Sh0s3D+uzAfLbTntU/7Wfu8 3xivgl/rwfro5ea7Gt86T8or9FfyT0EfuVzOb2Vmyl dRJrbpV64CfAw/3ei/G/ji5T922Z8G7/P89a+ZkD4pHKHgh+i26ekIw66/E0Htb6RpTr6cZZ3Pb2vufn KmoxaiI3ON8Rg2bna34J/+VM727DT+42QrZ/5t4FdN/IhGxz42k3kULo51lyb2/XilLL5Ks52K9VQrd3 EGLABb96QoDa001DmQQPcmdPg+n2l7+JH0/lNrhI9U 0dVfWY//xlCD81EeVxTo0BeqqgZgnpLKC211ZvTSy88uOqOUslY7NXR/tg1+ld8o+NX7HN+35/Pz3jOE urxrtwinfr+L+NXK5/DaaM4omRncmnE+9T7j/UqOjU72c1zikT4w7Z3b5fvbDl/fI7qY9Qva69ceBub2 XPB7MSs8jhw/O/NRBE6/9Wn92L+d+GhvcfHxj7Fk8/ 7WQ9YL5PyB+nvh71B3TnE25La27D4f1/2sFyJU+s2nn/VRBEp/zxXvD5+UUGk2ip6y/Lhegg5S0gypKl I2g9w40U7tM0/xK9mnn/VvE7/SdQbiV+/duE5By11g5C/T2N7mwv88mx/Sm2Jibo4/aIBRU8EsT0ts+P 7NJk2jBnFMaX91jj5+CEALOm4IGGX5Pn+DX+U44Gf+ aIdqiGipVRx5sirv1k7xzmqorcPemu3jYL8et6bU+Pur263+E+HC2EpEX6FyutOIZ/oiiwhVg1xZRi6l u6veP/cZAv0Of+8a0GuaCSy05p99/+z0NsM2Dz/YHvxKZ/qf0cz0FyBXq21eYsNk3hgiZ13/+uaYHPzq zd9P/De0KU0KZrK/zb2Ao7BC2ub8+hxKa9wf9j7Ydu G/Wl9c8/sdF76v+XTqdyJLm5aGd/V42Zj2H8Z1p7r+znqhgV+86F0ay6pnVfpm5ceUj4PH1u4C/ivlKf +Vytpnvd/2We83+a/yN2f92/yqr2400v0V+473He/Wwqi8EG24csprmN+8n/f7Af7sLvoh9M7uMN0yob Opo3C5iwoPKrpC/jpyW06Ni3ec/9Cw7mqp94G5MX4o tI0caJ61/Fe9OPI/70rKyAyd60rB+b5d/Qocc6Kf+a/i2Y4/J8KT3/bZVq46Y+vfiE3+cxL5GRGK/NbZ 3bFX3ORoOw+DvjaQv+O94/fz+449+ZWeF/Mxb30zz4blb5x831+v0Lee+jacqueline/5koo3Ul0lr8Pe+3drzv cC2800Z+h2/5trdQvF0/ZK/4rzCAe07lsR52i/Ys/1 WMLV3+u3D3Ko1J1m5BZEU5X+/efQnwRx9Q/l10ycjC7d95J8S8NN8/7Frtuw8tlb6+0dtZ7/yK76i98l /JRlf4sb75n/sPP1l7fM/4/eEbvZ/1bxe/yuczXvV+xufez/jcO/qv/Of71iYSNXA3zpo+5iIPP2gr6I 7jPdrzQHuG/6tOz3Ykm+hiC4Ka5ruw3V3y/VkvRBhx 3j0VXw9aBoAI86BtusL9I/lA37FQ/+Jd4aGa5Sf+5+5n/wuvw8VH0e2p6bHF+qjLf/U+f4vB1uE/aorf FS1g3se/LJ+Rz/FfdUf/lf+qZezwaVd++GR3jFe+UP+F/OP7jnw+ryfNW9czz1oyxoh/Zgrefda/rei5 tsswTnU1um44SnMdutua9Q9OkzUteNL9eUSxLT82bD raS88HEo/l5t/s9o/czicgzbt5170+D3/uE/1X+4PriwrO/ceu/UF9F+2ApuUX2di6Y1zdt2yWqqVPwL k6ZDBZ9/daZ/0bscDnGe/drnlDt7t971+JKODzjPdoz+usB/vaeI/+i/2Ucz2Iub8HpoyJgbf3cpecW4 xH/28ufdq97cP3S/k48jnr/N31jn2kfi/2vBfyP/66 vo//gYMc87U+4MD+4MD+4Chn/r7zZ0JbGpvF0BKeEL3lVhohb/2gQK4nlkRv8k02O5i174JdW/kv5L+R gp6yhb0RT/EwcrnRbA4mxAc3jabp3krtIk7940ZKs2lk2O0bw/HNy8OO/3mIXylESvxKoULiV/k+9FUU rGyTea44RZtl9r+kh79M6pj7Ri3zW/bxilHP+miIX6 tR2mvVdfQ/yuez/h3iV/t26W7dpDOhmLg6F+vBovdaD+p9rH/mC0rkfW/P++YZkH4941LlwySw+dhT/O n3BqLXm3w9GQ8i/ZQb/Op9Hng/1E4d5xVr+ejjYN7LuPg3Drdm7P4D5Ip9y/NqoSefU9tTwa8rOz03+t fgWVWY3diwNn31g3T//eiPW17r/4JfjY7+29F/+8T7 sltU4inng//2s78/xK/hK9k1Cg4AbJns+MzDoJwx8Z4Mflz6Kzp1Om2n1J7x9T6nf/F+4v1Z/39UpMq2 We2a9NiE/km6Sw0iFbi9pcel3JfVkYWkf9konrinhd/I5/Cr4fi+Zb00tWxG+NXwhfcLvz/rheEYn+fx krmjP9L84Tbnz8gQfhAlkdyuXzhGc7BylWFBNDoUq1 sRV/tXb+YF2bxyS9FmFn2kjIou+Dn5R4vC7rHRDCCS/Gj8Yvc9w38foK52v3dKTW5pxtdsNiqRt3EYGV o7i+qwYj+u5iEeYcm/MohpT7Wubag//EfINHLz1iupYEMbTu+Y9J++y60K9I5hs1h+etiLs7zqR7V+03 d7/eJn//jHFz67+/nJmw77Lj4/OkKCf6AY/g1j+s16 gb6yq3G//Rd6zzCDWl4fZ1147g/Pu/Z8gnTFhzqgO75tZ3+zJfbJhFeI1pDGtt44Faje+2o8G6Pk/jw0 cj54tvejP4IR6p5GWMrOhyk8+2qjzmZme5slXLeyxAvGxhWR1HzKqeOltz/1N1xP6Ng2n71JRoFbxnuW TCg1rweprmabQIAao1a0Be6MY+j6sgiqZnVv7f9q+4 Vav1d3HbSrYpb8R/uJUzwUjzG6N1Mboh+yLdWhgu28dgEu1IFJpXEcwPMIWY2iRmEARlEpCwmsQGHe1/ U1BrnG26r4jD4qbh7Zfo3pM888MfF8b/iN5a9vD78F7D9Ppxmc5naw3qLC42yMKk6m5mbyuJ/Ns8cR/p wkrQH6Lp0lT/NermjV1Qi0orsxo9qqWTFd/f37y4++ Rxhddi339tuBJcGjlHB7/o2/S8/P+mfBFplYL5Lt+KHKQJzDg7tJooVqXMhJvxN0B3x6YEa2S0k41BcF rtV6CqixJjcg0mlJ3p+ZeNleL8d+fq52bzzGDN63Q3tN62+H/YJc/xpF5B/6sisqUdxGmU0Ro2sY4+e9 8uFO3sX+Drew/fUf+olOFP68987zFgww5dEz+DSRfaO [file] OQolJUVPRg== ID Date Data Source [id number] 01/21/2020 02:35:29 PM EDT [facility] Name Value Range Interpretation Code Description Data Sudha rce(s) Supporting Document(s) Consultation [facility] OCQDHa0nCpDNGyUe09/XAQwsDINon7IrFBedPVb3CUceBDVrC2WcSPO8tL8wQSX5EEwZOyJeTmIdVCH4 lbm [file] A4UvX3KLW7T7WlZNmqTQG9GexeLbPpXN0BHz2MAuT7PQO1kDVpRb3LNGS7Co6VNCHFW7XLAv== ID Date Data Source [id number] 01/21/2020 02:45:04 AM EDT [facility] Name Value Range Interpretation Code Description Data Sudha rce(s) Supporting Document(s) Consultation [facility] XRRKHs9zQyGLCwAi60/ARDaxVCCsa7EyHXibNFh0ANetEUQlM6OkOWE5pS3mDQU0QVoFTwIgFvFuAIV2 lbm [file] laKSULYhv8AhPAOaRaTW6KUHl= ID Date Data Source [id number] 01/21/2020 01:02:45 AM EDT [facility] Name Value Range Interpretation Code Description Data Sudha rce(s) Supporting Document(s) ED Provider Note [facility] JRVAAr4xOhVJDtQl10/UFXkeNPPff6KwKMicIBk3PIxnMQNfI0AuACQ6dM6nAEA1AAxYXpJxYfEnSGY0 lbm VnXqiQLoArJEAbAwvGAqFxLXdtMqdfhEUrEA5ZhUW1OVWtO68cKOFmIYUzW8LfRPP1EYF+Km3QMHWxbA YwQS5QPieP6Qcjz5g1Gb6gUA9S8lsAlH0AvuRj5lxBXax1SyxNeUY5BS3LDOodS1QeMRm8/wpsovyw5Q 1CnFeG0skJXMZCdd2LTIWOqcv6Y+tXnsR9Bg/3+BgY KKM19oweaFsPto7SfZ/FDRRBJaZKpPMhR0k+NvM0fGf01uDHSXT9mnfpXeDc5YMEYgKet6Phv9d7ym5S l+DxkhF6CohL0qON5tCCCOB4qv7i3ppt9Lr6Kwf4qjUhcP2fCCrfLCIeynV2KDuoDWJegMKYP2gIshI8 AOS3qy1JYiFWdxHB91NQQwob+IgjL0B9eImYtVEvk5 vPrWZ5Cm7A+qEiVdxXRhbdxCY47myygkGgnt6d3ZGRTScSFtyRdowlKj5tUUJWXgw0aqTsEYxLZgDDXG 8TBp0E0s92ZryWIOCZ9UEf57B2OYruOwSWuqMEDiOV0pwGBr+dRNsqEu8fSoAwkEQqkdPRtnCjZXG0cR mNnwSlAyaHsLLqDvaMeTVm6QKf8sNRk5N15aCkUX2y dt9chWt2glaW6ZAMUkj+F9aOAvkeCCcsCtYVELIaSrQBzeQtkRUypLQtHIJOgBsjHC1KhqDQpLccWHzL CjpyXtBcbRmmeo8lK9nYexAT5TzCeqkYriqWbOvcTKbRcSfkUzXe2Ndivs8uSY9kbpkoj6NcZi0kLcmG /nzPDdYYjm+ixSxKJg/iNJrGkziJhuUvVFIPbyrUOE [file] T9RWHsL2Q3MNPzA5S+TR2nRXy+It3Zq3ApumH4tbEwXJpuVRkqAv1UFQRCM7ZCLo== ID Date Data Source [id number] 12/23/2019 10:34:22 AM EDT [facility] Name Value Range Interpretation Code Description Data Sudha rce(s) Supporting Document(s) ED Provider Note [facility] FTUYXk0fRzNECdFu33/LMLuuXEZki8MaYXegIUa9UZhrYAHlJ8HvMVC4hE7dVND1XXeUPcBzUjPuEpRs lbm CjSndPNdJrYCApYlmWBzWtGJchExikdIVaKB2ZrKV2RCFaN25tTFAmBCJjD9SbJEH4XFl+Ut4QQAUbpD TiGY8WFmvA1V7ty8xPIn0hYS/PGLxOYrX4OQXGyYHWy7hw4M9jK95x+vXPeV4PXUk7LPh14qLG3befi2 aQzchQWHIhYPt33/uIjBDVn9/UHJdfdjRW417WYFlf cif+/zpn9gh6d17eg5jIaqW8Qxtqzhx/jnX9S29QrqS3M+CVwQd1f4lgZyJSy7dZGgo9+Rodriguez/jrvs3Jkx [file] OguzOcrw/uNMePOvGCIMVZNB03Frnl4YCAVHDTSDj7EJDeruFgJugyT/[employer]/LSHpIW4DORiZlat0v7gUN [file] MjQyNCAwMDAwMCBuDQowMDAwMDEyNjMwIDAwMDAwIG 1HCiTgCGCiARG0SdkfHYQxTJDtbh3TLSWtHQZlVDw4VjOiPCWvEHApRSabWWOmEEY1FkJtXLYsZIArZH 3MQbWwKCPdRBn9OPzjPYCeOELxyb4FWSNcFFWuRNXyTPXfQTHgFYXtWCjwDAUrPUOnKiIyBAWyRJRcIJ 0KWpUzUQYbAtL1ObNmUDQeQMKgcl0UZUCrFEBoJFEj OuZtSTDuPEIkTIdiGBLvZBH5QdI9DFHhWNMoSG6XMtMoYAJbFds9NnHiQUAeAHPoay8DSMYbPALuMQm4 KmQuUFEhNOYuLDzqLEFkJHStObIiDQFbZHSrUC1JMvBwHPNaFjAtPGWjKFBrBVKupw9XRUKlXAVhKhTo MTYeYODbOGZhOAweXFGdZQI8PcW4KPKaCKHcPL2JAv PoKQQwWhX3AhOrFKVaLZMyfy6YNAIwEVKrITV9TZGjLOTeITChNKgtGSYoRDT0RNVzJOJqYDDpKZ9EFm TgZLWnOWSiGeMuHBOdIKGanl5FACHdCDQ8SXGtYbSzJQZqKCXjJSgnLLMmOXPmMan0RSRhGZPmXR6CCx MiTCJdHXU8ZBUtSVNxWFWhkr3DHJOnRIE9SzW4PhDa IWJpVPGtQLkcWFKxXFVkGrD6FHWkWZDyMD3HOnOsRYHaJEB8NauqHOQyQLXhty9VRPKcCPK5NZGpPEZb WYCwDNEkALbaDNVoWYI1OCPlGVQtIUGjAY6JIlGpQAMcSLM9WAhjNYWxWMIgha6FJBKoLKL1IKinMqYj YAArERYaQZnvCAYbWMT4NXI1UEChRLHfMB3LWfPaOC JpFMAoAZCcQZHtUIYpio2VFSWpBRL6HdY3NbWwHWZvLGRjXYnaBIYrPJL1KJA2WDAbLCZsZC4FAjLgFI AyHOj0LAodSCNgMIDgij0TODAgKEQ4UWEaBUZwBUKuSDDqUOfvUVHbBNJ7ZVKdKYCdCPIcEC6BCzAbHA MmZXz5CxZmXUAfJROnky2QTVKwJQX2JGe0KyFfBGNc AYFuWZvdQKYjRGG7GPV9OYDhVPHgML0GEkSnJCOcPsDrUzRtRQVtTAQzif4DWOVeJWN2AASjAXGwWHRz WMPrUEybJLCwBBLtMSy9WPMzZVUrQE2OFuUfIJFeKzW2HeidGFQiBNEymi4YPFIxKBW3UVr2RVIeOWKh CPMvBOx6jiKebIVlLGa7NH4QF5FrbfRjDHdWXp8Ym0 09MKK7HGPqIx2BC2veKr8vOPGkLHAPDx3OWZd7O4HbKiAiRkHbARMyDXCnRgwaR8PyC0J9FSA0OMHfIr Q+BEkrDTCuZREoDYN3DTCmUBU0GiUaOUMlKYNbHfB2WxQlQT4xZTQPGm4+DQpzdGFydHhyZWYNCjYxMD p3JPijTEBHWb8K ID Date Data Source [id number] 12/20/2019 06:35:30 PM EDT [facility] Name Value Range Interpretation Code Description Data Sudha rce(s) Supporting Document(s) [facility] [file] 3/ANq/8JB5p/sz+García+1+Xvi+1eVs+Ih6Iqj3KK94o [file] 4nTbQwL87OeFlnfszEcqrqXCWEBNKOydkeIcifuMRIHOWAsxiyMopbyUGFZVLTpgwlDycplQPUJFAWmq igAooooAKKKKACiiigAooooAKKKKACiiigDm/E/wB+ 2/4F/LaBmjaZmxesa0aQogqvTcjcl87/JWt3J2cy+aBEQQivLl6Hh7kN4wVGBlYRMJHHP8Z+Cn/Id1H/ AK9h/dXyAth9ZY9kasxq/gQUUUVRuFeTfG//AFOi/Wb/ANkooqZbGNf+Tbh0ajfeaglshojG7Y+Cn/Id 1H/r2H/kBa9vqitB6Jg6f9DRFZNJjiGg7wb/ANTov1 m/0tfsiSnSCd8Vir9eo75LPzeLJENLCVTKIvh/yHdR/qNnSi4RtSx1clwxY4PzYg1UQQBKEmqIa6sm/w BTov1m/wDZKKKmWxjX/ks5mvdUWlLHYdpsjT0W+Cn/ACHdR/69h/5RU0vuppIHt8KZ+BXDQZFE0S9V1n /9Tov1m/8AZKKKmWxjX/um6qklLQuZVEckddpKVEnm /wAh3Uf+vYf+uVjf9IMhDl3rO+GMMLIEY3A2K8c/IGU0H2Xw/XYXEz8SJs0Gmc3dqqQGhGQScomgW8B+ Cn/Id1H/AK9h/nFdSha7CX6nzaml/gQUUUVRuFa/ze9J5NE/APXI/wAxRRUvYxr/IKIP2yGMVXxmFFEI QAUUUUAFFFFABRRRQAUUUUAFFFFABRRRQAUUUUAFFF FABRRRQAUUUUAFFFFABRRRQAUUUUAFFFFABRRRQB//5Y1GXB6lw3JpOOCdNLsvgzWvDcaEMlJ2TNOks4 PxLCr3YY1OjSRfJ56lkaJ3mB3NURzmWebaq8FiAPGbYqwvlCOdZ1GiAFQrUSHib9OvO2rlpkm2vXVxPK I+Lf2Hx3AtXRHyOXo2fQ1NBBdCVCTEq4Y/nZS7rOqc I1xZoYnLrAy0VEymzZhqKst/p8LecxDWtdtnzghRwPCUFMYTqTDOCGFkOdqovbjUXRQSqQXzxZVnGk1w DHkvaDf6OsQKlGmtQSC5ztr5UnSLRW+LE5MP339JnHQiuMapaD2qA5DqFaeSmz5pjt+AlVvRcifncK12 ObaCfFX5fJujyVUBbf7Nq1xcFAmk2KEPj7+1WKeFfO pqbfx4Rrd/xnqX5VwyX4A8HzfCUhLIWgFnULV1luQccA9XNS7tn5XaRPyjKHFcTY5kfu9HTZenCSWnKS VjZXIo/l0XUCLhLUHUknAlMGYXciImPGFOajXmTH8VZlBvKIlIUzMyDSJQQvFmTRRPFOVuALXMUANiLK coO8EaHUZ7x0Gu/v7QOGFuVVSVcmVyDGMErzUcJKCH blXoRK8NOhBqZFxTAnUyBXLAXcXcNFWGUERnJNBNRVTzLYltC6VnZUE7uN0oSRO6BSgALrLgAiAgVaC5 WyVnYlDwHJJxZG9fOIN9HNdCZhWgCwRxKiO3OyHbDyVqFCB+Qm6SLR4wk8PdNAueJTRbTO0ygf6ICnMu HZAmZE4HXA4qt8UaAXjlYNOsYZ1iwo0LFuHtROOfPM 8BSL3ug4KqGMugVFEtJT9raz9UAEfvJPwaGC4PAhGyE0WnjfOzFmPxY8rtZYL7MEJaXB6Sc185GOFuUG RST2qoHp0oTVxuBIPGK1eCHwzVPWemJHBQTBSTOfT1MrZnKyG7WgqDGqozUeUZRVXUOb70FJT0CHX5Wx R7XkIKPZM9IQWdAtY5BoH3UWFIYmJyFPX+XSAvRmls jCCwT3PxUMAxBUBvu9DvJ6qtslw7kKT2Co8+MWvfuFRnYO8XUdtaB8IRow//GYGkIAMDiKqFUFvBFONh BLS4X5duSxHIZI0wkzBtEGCFChBRMiIUXOXZF4KcuwAYMAdobS8Lvfa3DzHmBVIcpiUkIRpuDXdb7GAD 3sd0AZpzbvRltWLhPX8FCvLuCE1olk4ZoIUuYb5HEX NtWp5UJNKgTUZpPIXhPDN4NYPbVKBeMZedTVXlJWTlNPN2GWLdXRPdUJ7BSaDvNNTbCITbQmHdGNQuAD Gyvp2JLIHqYZSrKWD2GONjFQPqTZAfTEdtYGMjVEGtFCViQGGdYJHcMG3JJmLmMNHtTWC5JhJqMAWiUM Qtjr9PCYVjJMDjSZaqXiLvQUAgDXZpGHzyEOUlGRFo TML7DKIuMDQiCW3TEoNhYPNdBQOwEtnpNHGyPKJzph8WWHAhTJNfSCR2URBaQOWeAVWbPRthSWOwALYh QTQmEVB6WBU5DQDMKqBdSKMrUDWmGPNkIoR2VyYdOl8LAUYkYNYbIJAyBkU9JNFgVHEbAPpfQIPsBCRd OAC3ZTQ0LNN2GVCUIzLyDRImFNQqQCFzVaH0EmXnQv 9CQRXoBNDzEXEeHvZ6YXSrXMLsVOobRJIaPXIeLAV2LMH7YNA5XTCGHnIxVENaKSDeEJIiVnT3KqWtCw 9RPENfWDZvGPS1FwXyUCUgSDWpJVlnVJXvEwEmXcw9RSGkCUHzTA8FQzVnBRRnIHNhFbLjNQSpIZOjyq 8RYRWdUDDcTIL6QrYaHVQmIOXrZOc4qjMvoQJxBLv6 XA9JvRimTASyM0Lcc8VyCILkUZYgZI7qzcSmMLJoTFPmHUCxRZM2FYWTKxY4CAJyTZUBYAQHCGTGDDKX XhXnYmAUI0YgDlxOCFbnHUVYHICBKlB6DhGzBcM8TnpKKgqxBsQUHVOSPy4kWH3+DQpzdGFydHhyZWYN LoZoOSQzDC3UKRHRZ7PWEwpaSMWESbIyQR3QdTGhsV vqwz8BFGmzM0d9JWPpVl1Jp056HWAoTDOUG5jyQt4nRHjcOZGXB6xWJgaPTDvwIOIGQHMRUuW9BrZeIl S5BmcJPwirPvXXOGDSEe72FJP7SXI8GmT2LjZQACC5IZKfYsM3XiV9UTCUKuVbUOF+XSAvUHJldiAyMT I7NivmWTMxYkG8nPQvVXPaXWA+Yx2Tk6BxomX7fdFuHLjeGINcZsNDEnMiJS9U ID Date Data Source [id number] 12/20/2019 05:02:00 PM EDT [address] [address] [facility]ALTH INFORMATION [facility]NAGEMENT ED/UC Physician Report : [id number] Signed Patient: Amy Carranza Acct:[id number] Unit : [id number] : 1995 Arrival Date: 12/20/19 Age/Sex: 24 [...] Initial Comments: This patient was at the [facility] office an hour ago and [...] Normal Affect Skin Skin exam: Dry, Intact, [place] and Warm Course Course Course Narrative: She [...] rce(s) Supporting Document(s) ID Date Data Source [id number] 12/19/2019 07:43:34 AM T [facility] Name Value Range Interpretation Code Description Data Sudha rce(s) Supporting Document(s) [facility] BCPKSe6gNeIJTaUlz0KfJrBqBDXqPN4jlup5R3N5dKIzD6BrvKGeh9elB3BeG4NoGIBgMYLZFZ2EbOZd jb2 [file] V8wGTiU341O//0L1HntbB1Yh43bV6Yg5074eCv32Gw ++6KwVi99tKGNDMjb0A13S5v3zHi3BbAjvRpv6VpjzE9pv8fs79eg4tjHGnxr4BnUsqvLzwzBbP6nbDi hpBeGdPeCkSgvnElysHijeJSrdJhFCl7nZW0I0O73EBhgSG/YdqujCkJJdaDetT3wgdw7dbHJp8j/zz/ LV4cKvA8JJY31Vix/sz/mJImQHB47l2gRBNiPysHQ6 Rsu9WHpjV+u1Rn/PcOrtZ9BVoyOT8H1+dGfMeOgh6JiFO4BkA2fNSsgFivJAivfZNAE+7DvrtcG+TbaD HSjjnu7XiEesv148GxFFzFRjHuMltq4Gc+qSF2SwURievyUFum0jWpsChJ7xg0+8737e8UWgshCbcEN9 Ug/ggx5YL/SDktD9bF697342RHntAa0WLb5c6091c8 995+MIHvr51RsD0uFzn4jlY+W+qrSXRCBGY4kSJuOf8jaDykt7uBbd7z3oC4z6jnKJeg8qjxFr6jzyXz f0q3Yl4u8ZKvv7p6Oejg3XDx/KfX/c+wBhe9VeB3jy6XdTBlr2/SU0L/RhRkp3Pb0PL37ZOzVwVz64pz eU+54hHeW+9bev3j6h4Qyshkv3F+W+14ck8q7/EcpJ AeAYUNxwbVxtrBrE1o0gfaXIdf1/LFaGX0Pk+jYowT6tvuGBtB1yOGCptpVEZXPOdf+ZXajc9+djZTxR 7nLshkt7LC+UG5yII/AQqEpsINMoUvas9Vq6ac68yRrWyQyu3yaUANmofbDCqCYoXTxqCNkUmMUOfhwA dwrCdD4rqOGXV0P4KuWdnZZGUDHSqBrquH8+RnFyEE MJoNFIdGrdZLTWHYPAMpCouEXheJkXZu9l4UpUawNaTmq78P3RSIe4/GRbQf61TfT9Fp9Hm1Orxi0gwj AKnUlcybzfcNIqnjorA9fkA+OJ+qaG/PeEdBOUdDByhZHAyhJSeBvRlv8nDVReqYPbzN03sPkLNR5jxC OgoFHPTmKPJb92k+Lkvq/fUNyp75/c9z/paver installer/U9/38 rzLfz/H07fVsuG+q53j/cacNFe2w0rv6vk604y/vytb+kcC3KDq8a+840HoPZW2/B+qJ3++m7PT++92U nN53/ZncjnoG+r/g8cnk7dxx2vpj+PK5W9qZ2N0JApa2o+T9yeU0ez3Dd4nuC3+qcm3ol37wTWxfd0gf eX3LO/C7zmkt1o5y4h6/qYtJ9y35w+cen80dEj51ra fuwfy52878+zTp3E46zqy8D0YPKv6y2QTbulI54Twkvjmnu/mh9syVPnQihux/1H+ez/ffgLxdQyV9P3 zkryZunMP6qan14ACC8Y89s/n864+yQH9I/keXvbupmkuInwgBB30xnQwq/EyNp3B9Kas3Whu/YccOQ9 9Xz/q++QpypXs16bmv5w42PFetfLN/Eah/f1/1Ofrp eik8U9GpSP4B/V/7XhW1RqW0+zFl6FZd2Os9j/s8H3/VIW+vpz+5AV52fqwx+I6Pu3K4bCmwia50m15e iVoxt8K6M52+3Y136I+9rQMUe9r3qdF329a//mXuqoH11wiP8xdxc7p9Xi5HRB6SejYiQi1eT72f8o5d 8+htTNS/Em9Zaqe40aku/YnvO+7LWaUhd6KdVJzt0X 3Xr7LqLbKo8Xy81wQ2l+8Dvw/4Km0uk0UwvG4Hu49DlnyoWbfeAetzGfiddIHh4wuWEk1sf8+JQA6u67 xio3oKzE1A/j4Hfg/09napxb59cdCfTwS0e6kVAAypVjz3ikD+v72LsgVaRONT050rt/m4RaziRApMG3 27yth9iCISmv2oYMFBY+9OHc/xuDPHs/08iYv24l6d T5+/36JlVnxM9+41X63jS/0839fL+p3hndz6G/4Izs1X8lQ7mqJFewclf+/+zstuZ/51O/GfT572h1+/ pfSciEdVA9QyzApmV/VZ+CrfH0c/ggyH99O2S1+t203zECd+9zGVwxWP1sZ+vpWpO72lH2tP/olY5wv2 wqIDuCfSr0S/eNL9+ImLwhLLpAeZDlHs1ak282d877 FbP/7Z6xm/MzzVl6Hh1Ug3M/hK/RS+Ez8EOdYcT685ojs05N5uueb7/RS+gom7eZlceZTBD+3F7PFgy6 HTvt/fF+pZrx/SVa3DWJfqEwtMa06l/F806tF79bqSkh91QtJeztx8ct+/65aAja+n5sSNB6ECneugoN gDYf41hm/Mo+cOsTGr3uo43jOc0/03Bytr+k/ev7nW 1kJleKMgDBdc61zOwxL/8o5o+g2N5c3B9js83vpAZf/9D18ED4m1E86/1aJ+b6g/fu1qXP/c8GoppIMN H5NpNPl68W9y/NKB2qG0v4y0XpN22g+xTVR14UOlYC2rtq+24JYF59/868JXmZ+E3ypubmZfJHvQ+1kf eYe/Er7KOs/868JXGi+Za9HGur9q9e55j/nLAk65mX uNr6OA3LZ+juUJ9QL4oeUdAV/IxJE1iftYVeX01K/5SPgqfw+834/egK8c+MoHvq/wVfYN/ghYbfRt5O 9xh9fi125Hf61kD1x4418DdxFGllD6hc8JX9ydSfDCbD/HTnAxYM5X57uNArZjI25Pihnjndj3IS6xoM wtsoq449Y/Yf1bxE54dj5RduhqVoTMoze+yvlxxfEn G1/vzR7wOzcvySk6Mvl+5d8JRLf/mz66YgnIY8rngoGK+XzW+3Ha1I2Lwwi0/Cf2w05nMwvOsdRfl0Kh /637pvH0s/XvTrh+y/Zy6jzr/Ie53VzcMxbwMYUv/H3h/zIw47xWV9zaK1I/Dt9dxKC4d/d59tP/ja+y zxtfvc/4vaGeLW/Q52j4jl8uw9UWp0XC8T/IK3yVz/ Plh933sbmscDy+oib3GdN8+wxveo2WRWnBV9BAuy/zRRW+UrvCV/y2X8rsmufe8YDqFu5t1R5I79TSmg Pvn/Ua3pLwge//SI8bO6r705tAG20dZzxgbH+A09hFx5k8pAij1yv6HkfgcHv6GHiG+hS+yudezjsd/T n+qtaB/hx/klOj20DJrrh4dB9zA+o14x18yzu+lb8f j1BFl4j6/Mwl8b34r5mK3rRrN+o1uRP5tgF6d+8dvw/8PlD/WQ/WduLPNeNX+t209bg6hfwx7ZI7W+w5 XlbudhqFQbQjBz0wclZr/mr4Jr2r0qZ3rk/ocwCIdJm07e7+4zdO/LkqfiUZEb+qGb/av/rW33b3rKil 4le14/t22HM/13ZzNf0g/cSfq/WY7BbNdk75OZhXU0 +qwfAgs0NYVzrm5ru+Q96+UD++92X7zrxfz3Zlx0mdgLDhI+q16lx9Ih0AkKFiC2Kk5rJ4DJePbBOnN/ hKuhpnvV/CUCdD4X/Uv/C21Y1Ui1KemN5Zhlx+qhPfd+FonBMg57z4NPZjS1a+6986IS/wVQW+qomv1F bH+wPtDtQ/8ftEPzF+rodriguez/0DHxVga/ygg3Ixzn2B/y5 rrO/EIWkAp3y5YX9ca22jO67ZlW6Tx655ny7VtIm4H9OY3ih0ZF576etx+XMv62c+zyAZ75uB/+oCV/l I7825kaWehuD4+/x4API5Rvs/hjtYa5nKe6naXbsrDw3FgI8Yoc8qJBjWqDuXolihdUOzULogmWbGDxl umZn/HI887DuPe3snC/YsD/YsD/YsD/K0RsMum3l1o C/ahm/ejh5ZbT14EDT/k/0Z6H/Z33U/KwHmx9/6pkaDgk0L2eu7W7Edry8BqtsnDB4O50At3AmL+2e9W CyxVuj9XfSCuZOi/B1fmgR7+yE92oN6UmgsmvtC16aftz20/0mfKX+4CUlNvNyJtS8NzexFQducwOMO6 8pilDyy0/K0rbb4ZhilEJ75UvKxN6KlF41/68SjYeu 7Id0fkHepCe+3o2KaiJ/wRaO5E7u/w7Bk44orWSd8KfSxod/+YpQ9GsgfbUlqMv3PpA9ccdxT8n/vzeV mS1QqC1ftMG4xV+q+FUm/U00UB33i9/hK/yV7EtB4Fgik0Svw+3f3kzbM49aqI6NdcklMSwGPfCoRj+3 hWzT7Vl2lY1QCw5rvcZW9ngqBnvbhXaWq56fQ28j+B 8sTgzGgUg0AL+wYX+t9ZIp1F34mt95/H7wRhO+ra8cp1PfJaQOE5ICW6iJ+leB6Ao4BT+oZ6L+iXYX+n nwZAO+gzZnc9t1hjxfKixizmvgRC9U/loC6baBK49Y8r/4RT0j6BVwMe0DYlq4ETW38d1m/7axUD/m34 n5V/gqn89+w6p7ygW+pG77JYnQD6QYSF/mX+Er9V/4 VgTh7OT097Da/gTNmN39giYa0gh/T/x+1vttnvV+myf+9CC8s2YCr/P4iGmjchjYCplfnwRE+0346nnG +u47Q5CDbKxhHBZ8Fo0QkQr+BerPSF9y/6gJX8k/I94qoSH9KyQtqkzt3DfUh7rrc3Xeiy6vfjq5aLzo QSJECIrNPt3DktQ+g6+iBH4/44YZy43yaS83k3MkqK tgfzDKsecoZ/cYFtBQOi451FwLLaFuxJdST+GrfP/Bg6L4Ewl7mnm/WSw6z3CIfL/Czno/7PjnyPNXeu 5pFHID1xeQ+yPO8/HPAXwVia/y+fzuB0+Gn/xnkX9NlPqD/aCnI10WR4c2zRL+3e6W3Yu+QkcCof28Cj 4Vu1d4K/3H0McUNVACVhp/H/mb4Q0Y0O4V8wdJ+CqA vwEie9D+YNSDJyPxleo8/emeDv3QSz+6om25xbHdGLLSw0r5ZU1473JDf03kCwa4jwvnJL24AYZ8dI+r ns+4aMc/B+JX0Y5/jnbW+pQ0Dv4g16OhmJbZmy847omOJr1TpWKW2B16DkgP3jQnOKbfSE/CV/n7wc8B cIWAw60dIeTTixQp99nKpoOjlfZWlF3zeVgW+CrirB oywe21Iwr7vff4T4McIHj/NLQ/aCX7yJcRv/mN6Cc+VeCJom96Fc16/R9eZ8U8JyXCD0Uy7DEZC1U96c 2HIktnhgp2ous068uuXDh+5i6nAjD08PmsMaEIk7Us+R48nTxstC+Ca05jMndirQztJF17ghW4lqVfcV 3n3YxJ8TUlYLsPka8nZ64zcxnq73e6kX3zxel9UNd/ A+MX8atA/CqErzTXzLN/OHVqQ11Cr95h/Yq0vkGURkbNn4QO3zctTXbFO4/3ZBxHh3FS/LfVlIIe3wXU 3fyagxvL82gM+F1n/lmAecL3gM+e52PnC/07Xodrwc5n+Ro8T77BaG/Wg7HO+ihw/ioW/NXCfLRgzwvj d2l/uywOpAAr8eer5Ca7gks+vxNk3+k7mdZv2Inv9t zYt56K+hveP/CRQg8690iiP85gl5EG2Sf5dOkrG5/l83y/Oi2E2f3H3ob6I5+VszxDs7w5DRd8Y96oM4 nJsH/+EzenX75w8Fk2gXq3alz/4p205MB/2ep1ZfzBm+mVyp9P570Leg5NeOS291xSdxupmE5/+tcdvf +Lb+bHCIqz6wNt1i++0ev+/Yev/pjp9zsHaeaqbq4e I72TbW81XsoKZhbdqBg+vmFIo46xDjlvrDU0p/MIehrpm1q2i/VCx/e27tgtsE/8Egvk4eVphz+yzu2f 44tlx48M9182nwHV/fjnXs/7w9YtY7pw9auXRmI33dd6Vletpg3EmZ0Kp80a23Bxy6bl0B5t89V54/xV x/mrXs9+Sq8D/Ph989k8YP/1zL+9ZD6gE3slM2mwR/ Z2zm/14no9bQ+7xvFdsQJ74yB14SqVIF7jlqtKt+f8c2+Bm945S7PLBl9trbSn0Z7oJq4Xfj+o3sH6Wv mBrzrwVQe+8dop7hNvO/B9I/Q04Sh12d+o/+z/4pW2UP0DF/Bl8SHi9/lg6wnok/cz/3bhq/v03Ks9lV 671sy4t/hGx/mrjvNXvQfqOfNv7/HMdvZ3rol07ovJ V7384krY23DqMv+lj7P+0RheSYbWFccCd7y9Qp5owdcuaFLcNGQrsC6/b3+c7QiJj8TiljHL+4jhecbv Hb93/W0Hj0qeiGbmjgAtsb/Uwt0yWvq188Gs62D/KPqHx4POcrk7kN054x1GOKoOsbw0o/tibgWR4ckB fo+fW8As6k4D4oh+M2gz0xS+9jo0b9Jmsni6stRoZr uv82pMB+7F1ClRF/RP5piovqtf2dD0Wue/u+P8VV+B3zvex/ebZf1Nfx/3KwmJwjKe7lfj82Ly0WnGD4 6ooxFVubcSUPjnePYTL0Xw/zzKiW+McvzVKA2/H/90vE1QMq1huEL+eQKUsh05JaZ+RH8mfj/xnFHO+Z yB8+0D+GDAPI0q3e/+edjZPxrCV+q/cfIEjOtlY63/ /nkIX+ToTpB8aWpdCoDI+bkQw1guK68/8faB+NXwM/8OP+vfofhVPuP7+ln/FmzWRhLhymQhrF7tqlHA hgf6c/a7h5/93cAu3p+38BoY2H85ctAZcv5n2/Z2vs6B808NL/s+j0OQE+SRAJ0gSlaO67+wj32fR/7Z 9b1j9/c07dHc52w/wp25xI1/bRr7u79MGF1zVHL9x8 [file] eWxMsdch+senior svp+7k3x0in5sh+OVuuU/k9zy9esU5bfQLI1392adr1egMdiqEtgfR490j+3fNumBdMNYZzI [file] zjN59+4tC4n9NgC9E6i1qj5y44oxzJd+2b73/+6ePH X/ov290735aiv7ru+7Yff/rxf/b15scXv/dn92ucyp649skpE201/uPVjD/9/Pd//+ina93lswp3Z4w+ +NWn71+F+ernb7/53hVlE47/+uevPn/zw/cfX3/69st//XVWj4nrq/nm8y9e+X3/w0he3935+23991r+ 2G3au77fpxcxXh4/pd06C18065jkV+7VTf077iibV/ fvd4p5Yvy0wTxXfvS8rg+Qrm3I2Rp35glJ2250+ecfP/1Rsb/75bef/ttVX964fy0P3dHvK48/+0+vev /36avFmS7ud4kXdJE85jj/+9d/+8Nvf/MvH//H//h99LibsaI48vYG7/3Qp9se1kA9b47/8+nbj3/6T2 10733+/P53H/Iwb916VnwC8s/o+vHld3/1Wq4V5m5B 7Le//dt/73w2tuS10gO/7yzNPm9xIq2XJ/6bhM3EugA1N2riHFJwuXfrds++1t0n2hnrc2xCA6vPuYVQ 66vX//Fx/DmLfwQt33J/+dff/BPQ6u7fpNh76Xwyn/np8w+//MWrsT9/+f1P/1j4miChl41SP//d/Wy2 2drc85X7nZ2w/3e/CFP3c1YJW1pnRfuye/rN7/7jbz 7+8Ov/+M1b7q+46bY39ap0/ZbfylMLazr+NPfqkR//9rv/+M0f/sev/3gqxm7950o7RbgGiB+T+8H+4c ubLn6fy5/K/m+//92fZu9+7P4k+0lmna0a90/+w+d/5hfflwB/dby/vSa0r4l3Nv4L6Y9SuD8n4B15Jv Hvpg+k330GdoZm/vWPf/3549f/z2/+/Y//pWk78raM 8st3fJtabL1C//MP//SXf3L3+Q7/+Te//fV/e/vC+w3/6tf//Z9//e//9uvf/IADN6B5+Pvf//aLP0FP gb/9/T9/OPkdQ0GFaFno/PNv/vn/+t2//sFtCL37kJtoaq95++X3X//VT1/08Vjiuahy5B/imX//j1fv +BpcgmogA976wJ/9r6+p4aef/asUxfx7KL462gqIiB YTy+jBKf7/v6rOTECffyv+5a//z998tI/f/+zAV6hv2KtdpB/0IOV1x5Fa8jg0/VL/P339+BVx5CRpts Udksvub98//orAo3zBn/OlL7/31txgn9/yh57ar1pY1e16/j+wHjloNrUxZXE9piDrbNebrxEdNziSUY svMRTnWrv1JR5HfAIkIIAqR5V0PWHpkx2cSQXgGMIc oTJuYvBnAHCHUA7BrPZzBP1KICo8AYZdFDMmCqPuPOHvgjD1RLDuEIOjDKLvX8VtyyWmsNJaQHRzWe3+ LM1yo9LpXmSvEFPaCvp2MS9EhLNwPV2UxVJddU1tkrQfQ062hzUbQDNyMzcfz6OrXQimTTDBWT4KMGQ0 VMR9SVTpGs8+AM5tq3WwGgNuDKMaLeb1CB6MjOAwk8 WtHV2WI6TkRYHpNPFAGME3a8OgGIDstztexeisU0OiTFC9qM7gBTU0KERyJCgyDNNxRWedQvV7LVUfHF jaZNCwSYQlOLGvGPJaWGm7yUOtNI4JX3ByUVTqJUEYHNZawbVjLs6iCHlOLTpXV8HkCVMSELWRIKcQDC P8WMOvKOWlQO6ZtSDxSML1YPuOYBHHLDuAQImnGoFb b2N9LYPbK0LkDFZehxGqBMTZVKmgApgdYV5gmQfdrtlmP2HwdZXbIKRSOKWrMOGjYZIfLENpV3Occ3Y4 D5TsWAaCJDOEFVpQAJubYqS1f04hlxLREGCxYXTxQV6+ZI4fm3HvPh1QEKOdDP2uieq7LS2BcIBxKH1L VRfxzeBqP8irakSfXaExNQTDTF9uY4DxdF96PIO+Pm BqFM9klnj8meUhSiIhUTBcKDRmXMUbHHysMYOzAVAzSRRcIJD1DSC2GHElAwJxLHJnVxD5CXPsEPJmJM QuhoJXKNInLJI7XGD4JaKqVEMzGAYjQRlcOEOvTZjiBnFfDSOeDWOcAX1uMlPmAZQzUGSdZPFoLtO2Tu UgZiAKMDAwMDAwMDAxNiAwMDAwMCBuIAowMDAwMDAw XBf5LWIjBGXmJM6rOfOuWGFvEIDaSXFxZCGjTVVdnaEIZGJtUDTiMCU5YWUvTTErRVQhDYshIIJfIQPy ZKP8UWUnJWAoBL7uSuZiSXCrUCB2NfZlTBOaFCCxhvEPDQEnTFUyPJV3XOMhCYNuZTLfQPicKCTnYZQl XnV9QBNpREZeDE3jBcQrFTLyCJX9MSFdBWMwZJQfpa KQGIYjFJCpBKn3DrJrKRZaIMXlBKvtXQHzTCGyYVehZVMxOBFvJW4zNtXfYBMiCPYvOCSyXQOkRAIlfb TMKXNzTVSiWOO2HjTvTASeCDNgMWnpUMOnAZAdMZS1AAVgOEDyWY4qYhHhIDMoCkYwQfJqSIYtODTssv AKMDAwMDAwMTYwOSAwMDAwMCBuIAowMDAwMDAxNzM0 KSTpEQVnQY3tAhDzCAUjTXQ9EWMxJDMfTYQxfqEBKGDlFKUyUMIkTHL5JTRwOFNlTPv5fhHohRXfHip3 Du0IpYxhFCX4Uu7ZysZtWPEkEANVIs5Sc558FVHyRXOAWpd+WzoajWOxoQhwWESRWhN4VdFLAYEWE4I= ID Date Data Source [id number] 12/18/2019 05:26:01 PM EDT [facility] Name Value Range Interpretation Code Description Data Sudha rce(s) Supporting Document(s) Troponin I.cardiac [Mass/volume] in Blood 0.00 ng/mL 0.00-0.08 [facility] ID Date Data Source [id number] 12/18/2019 05:08:30 PM EDT [facility] XR CHEST FRONTAL ONLY [id number] RESULTI nterpreted by:LEYLA BarrowROCEDURE INFORMATION: Exam: XR Chest, 1 View Exam date and time: 12/18/2019 5:05 PM Age: 24 years old Clinical indication: Other: SOB and chest pain TECHNIQUE: Imaging protocol: XR of the chest Views: 1 view. COMPARISON: CR XR CHEST FRONTAL ONLY [id number] 11/14/2019 2:25 PM FINDINGS: Lungs: Unremarkable. No [...] rce(s) Supporting Document(s) ID Date Data Source [id number] 12/19/2019 01:32:26 PM EDT [facility] Service Cmnt XXX-Imp : NoneMicroorganism XXX Cult : 2019 nCoV Real-Time RT-PCR: NOT DETECTEDTest performed using the [employer] COVID-19 MDx Assay. This test is only for use under the Food and Drug Administration's Emergency Use Authorization.Additional information is available on the following FDA websites for health care providers and patients. https://www.fda.gov/media/436763/download , https://www .fda.gov/media/220466/download Name Value Range Interpretation Code Description Data Sudha rce(s) Supporting Document(s) ID Date Data Source [id number] 12/18/2019 04:43:00 PM EDT [facility] Service Cmnt XXX-Imp : NoneMicroorganism XXX Cult : 2019 nCoV Real-Time RT-PCR: NOT DETECTEDTest performed using the [employer] COVID-19 MDx Assay. This test is only for use under the Food and Drug Administration's Emergency Use Authorization.Additional information is available on the following FDA websites for health care providers and patients. https://www.fda.gov/media/626255/download , https://www .fda.gov/media/593139/download Name Value Range Interpretation Code Description Data Sudha rce(s) Supporting Document(s) Microorganism identified in Unspecified specimen by [facility] This lab was ordered by [facility] and reported by [facility]. ID Date Data Source [id number] 12/02/2019 10:32:00 AM EDT [address] [address] Patient Name: Amy Carranza Exam Date: 12/02/19 [...] lower lobe nodule. Professional interpretation performed by [facility] Medical Imaging at [facility] . End of diagnostic report: [id number] Signed: Jose Weaver II, MD 12/02/19 1121 Interpreted by: Kota Weavercribed by: Jose Weaver Name Value Range Interpretation Code Description Data Sudha rce(s) Supporting Document(s) ID Date Data Source [id number] 12/02/2019 12:00:00 AM EDT [facility] ([facility]) Name Value Range Interpretation Code Description Data Sudha rce(s) Supporting Document(s) Glucose Level 109 Normal Glucose Level [facility] ([facility]) ID Date Data Source [id number] 12/02/2019 12:00:00 AM EDT [facility] Name Value Range Interpretation Code Description Data Sudha rce(s) Supporting Document(s) Glucose Level 103 Normal [facility] Level [facility] ID Date Data Source [id number] 11/21/2019 07:48:00 AM EDT [facility] Name Value Range Interpretation Code Description Data Sudha rce(s) Supporting Document(s) Glucose Level 105 Abnormal (applies to non-numeric results) [facility] ID Date Data Source [id number] 11/18/2019 03:23:50 AM EDT [facility] Name Value Range Interpretation Code Description Data Sudha rce(s) Supporting Document(s) ED Provider Note [facility] NYWSCu1uXdKOSaUy52/WVQnnKNCld1NhCSnyDIf4MCtiNWHsY3BaYWM1gA4eIHD1DJjGQdKoMtUsLhC3 lbm FzQicSFrHxZPOuMaxXGqDmPSalTgoquXCdXS0LhQG5YIVmA96qWOXkKLDtJ8JbGPS9CFt+Os3AORMrmK DiGY7JUkrN4S4jxeA2Fy5ev/Y/0V4jOPzdLYM8Sj1RKDFtOuJEcX5B8vFTY0qVpG7UOhlbv/Ynbl+drq PsEILSS1WhaJSgUg6z4C1qiym42e/fvFEcKqW8/G/9 ArtBF4u0/q2906kam3fhqr6eHuVXhbFXgt4iW9384VcYm2zbM4DVTsAZOrIHF68NEc0ZbkTunURv6ha4 y3w+7oQNm3ic9vk72T29Hj5yDoi2Szg+En14/Ng7+zG6pxV73a0c0sgy5nKwo8cV/PVdtL87mdHlwxpk aVpgsdWV5cMdhauk+sxyws4vxpfcEDsit4s20g0d/n [file] 5VGD9qmzW8OL3QhFZrSHTsIXWikCZeTAn2N95xeGGwHWazDT2HBDN+Dulce+Vc7SLAHuDZTsDPTqEhOqLJ GJJzUgH9VbY5HVt4YzT8TgUG36dCjrnzKlRHfwUU8B TM9pNGZxIOQTZO7ErSCayZ8jffKtMaKxRMCMEcKvH39gsHSqDXYyCDH3BIMlGc9LGYDkZ1HkqwGgmFhw tyQaGVKhTTNQCT9UGGyptwUhwLThbAqnWX39uRsaMJ0EVm7CPpCyTP5zus5NlIMpUc9WKFN3EZ8IXMCy XIEgTPLdFWV6VVYtZtRiGObvHXSrUDUdOXR4CBIaAC MdEP4VUzKqUZAjLFN0TVizEFHcGYPmaz2JAHZxRRC5SYIhTdXiYMAgTYOtOVfgJHIyTDFvHTL8VJDrLY BcRP6OXqXuTYWjXSXeGxkcXCHnWPYdke0FBEWbOVLsRLCbMGFlQXXjHKSdQVgbAJQpVTE3CQQeWRYtHG DeBR6IQjAfWYZuVQcmNRJzDLQbEHNznf5MXTHdVUNb YGohVWHmELLgCEBcHUdhENTcKGGmVMR2FOUhISQoUU9ZMwHiNAQmOJR6KMLbDIWkCDLfda2IYNVfTRWp JEM4AUPzWQUyMYNoTUvlVEVjCIQ6Pwc2BSCvJDPtCU7JHgTqIRLrXCx0WXDiJABjIGJpga5CFFYeVHCr MDgyNyAwMDAwMCBuDQowMDAwMDIxMDMzIDAwMDAwIG 6AHgHxUCLrEzQ4SRDkPCShHFAfrk5SOYDiEYUaBQK9UeCqRZTtBKRbDZspYJPnVYB6JiS6EUSgVHYvXO 1THjZkFREoVrD8LUHwZXWwXFHhct6WWJQsCVIvXpOcLWMqOWWqMNLpXAlwDJPyPZZ3DtI5OBSbGYJeZZ 4BRtOuPDQyQcz3CWGhWPUoKPGiyo9ETBLyVDAwTFv1 CBTtRUWhUJLkLKoiCFEhOQC3GHMcWAAmVLBgJR6JLbTaORRgZigsPdayUIVrVDKgsz0PDEZtULHlUUM0 PDQnLLToMRIrSFmeSGRtZFQvNwn7VLDfLUUcSD5OHxCrCIOhPbK4DkbvLMYtIKEkiy1XJFQoVZU2MPn7 OFRtBTFdMHAsDDbfDNFqTFDpKyztHEEfWVVbYZ5YSf VnXMTbZAY3VSMbOUCcLUNxdv8IEJBtXNC8RsaaIQVvCFKbFQUhOIspYKKqMVZkOMr5UBIlXUWpEE4LCy ZzMIIuCRJpJCQsZMSzHAYcqi0OVREdVKZ2GEd7TFRlMGOpAOVcTTagXIUyVTM7HQQ4AQLnBNPnDD4FIt XsMXDaEVSqDpTdTKRqWRDjan2OKAYcIGC7LTNcKwAj HGMlKHYyRVjsTQVhWWR1Sej6SAOsUWPfTG2KJfXkHOXnNSM8KkDtVALcDJGmsi5TIWHtUCL3SHa3DIHb FBNlITHsGXuaCLXyQVY8JQW0KTKbCJWtBO9WTaSmLDogRZRKEdm5EWlhW7r7CDX9YN3CX5Chy3GjONHt CNJHKKciHH9gyhKxKZUdLe6IF3dRBradQzCySCYgQF ziXFFlYDB8LKAxJEg9BMEyUHPbNMWyKf6oMCK5HkE0WkNaWUKzPrK5BUvzOxP9ERv4CxDcKuEuYZT9Ll DsKE9MPn4FQqZ9SUS8cRQbGl0PJCMyEtUCXqTuOF0EHOx= ID Date Data Source [id number] 11/18/2019 01:18:28 AM EDT [facility] Name Value Range Interpretation Code Description Data Sudha rce(s) Supporting Document(s) ED Provider Note [facility] ACICVa1hIyGYElDb05/WICboRNDjp9NkHQexIQg5BGowEOUjT2JzLAC3nU4lUNU5YCiRHfDcMbJoQcS7 lbm [file] gx/7B5GdmWiYr+uwxqa84Vk5t58JsEYDpRTFGq+LOiyuVqHvrjslvSwi3QazpRc2TokxTJnCf/OM/+INVESTIGATOR OPERATOR [file] I+VH0nTWg+Rx6Dq7AcetP3sdCvJWl0OTW8Zj7YPHNTX9FAKv== ID Date Data Source [id number] 11/15/2019 03:31:29 PM EDT [facility] Name Value Range Interpretation Code Description Data Sudha rce(s) Supporting Document(s) Discharge Summary [facility] REGQCd0xFhVNVhHs74/GCErbVPCpx4MqQQreBVf3HTopMOYqC6SgZXH8oG3vJJH3RGhRVkIuJxXkRvJy lbm [file] iB1Uv4qE7peB+HKHI2yHRXpc/Bx70rsW7TvlsIV+INVESTIGATOR OPERATOR [file] BdOvJ2JNApUKR4QmitJTW+HI6rUPe+Dv1Ua4MhnyC3wnKpUQnfOSp2MQ6PHEGMM4ENVd== ID Date Data Source [id number] 11/15/2019 01:43:28 PM EDT [facility] Name Value Range Interpretation Code Description Data Sudha rce(s) Supporting Document(s) Progress Note [facility] BINPHo2nCzNGWtVa05/STWwuRIWhn1IuYKdjACt1VKqoSRChY8ZfYBP3sN7qJWL7DMrHLlMgPbEcUjDd lbm [file] HwW2AhT+EQ2iLPz+Td8Tr8VfffI0idEcFTq5TLAvZIkaPWMYIg5W ID Date Data Source [id number] 11/15/2019 10:41:57 AM EDT [facility] Name Value Range Interpretation Code Description Data Sudha rce(s) Supporting Document(s) Progress Note [facility] DCWCAc5jLgZSWaAh67/GERzcZDLgh4TxUFhtVBa2PGeoYTAaU5UmTRP8wQ9pEPO4BVyLKyOpMnUqCyLw lbm [file] ICAgICAgICAgICAgICAgICAgICAgICAgICAgICAgIC UeJIMiKHMvHBOaTJUmUFNjAHIxMMNbKTAaZDIsFRLdRQQjBE1FOKCdYTHtLOBhCMXzFWSjZZUyIUGqOP AgICAgICAgICAgICAgICAgICAgICAgICAgICAgICAgICAgICAgICAgICAgICAgICAgICAgICAgICAgIC FgINPoLJDhTTYwLIChMESmTN1ZUTAcTAKiWBUtMDTk ICAgICAgICAgICAgICAgICAgICAgICAgICAgICAgICAgICAgICAgICAgICAgICAgICAgICAgICAgICAg DPHrSOSrHGLiOMLjAHPqQQZtQKPaEQHoHYIlKC5EDORxIKJyHNReKLJrJCKeBAWrPSDqWAClMDWjJNDr ICAgICAgICAgICAgICAgICAgICAgICAgICAgICAgIC QbEOIuHUSrZREeMQWjWOTzPZHjENYqGTDqOBLmZCIgWKMyIRZkNZ2HFQFcAEWaCTTmWKHlKMFcNKLySO AgICAgICAgICAgICAgICAgICAgICAgICAgICAgICAgICAgICAgICAgICAgICAgICAgICAgICAgICAgIC TsFGOaEQLcYJTvQKOkJZMnSIYkUB2ADXLpDSOjHYTs ICAgICAgICAgICAgICAgICAgICAgICAgICAgICAgICAgICAgICAgICAgICAgICAgICAgICAgICAgICAg DIKfYHFqUJAbWOGxGZIpIESqDQRnAHJqBAZbRIVtNK8KOCPdGANnKDBiRRWjSUZfNSXyBRHgEMMvGNIc ICAgICAgICAgICAgICAgICAgICAgICAgICAgICAgIC PyRTFbKQFuRADcFCWzOXIeNBTyTXIhLOHsLCJsKTIcVHWbGQHrHUTmXW5JYQSdSIBeGJIlIOJsLXWkDA AgICAgICAgICAgICAgICAgICAgICAgICAgICAgICAgICAgICAgICAgICAgICAgICAgICAgICAgICAgIC NoOMHmBNOnYDZkSKUzVBBgHSFiAPSsKV5CTIVzSXJn ICAgICAgICAgICAgICAgICAgICAgICAgICAgICAgICAgICAgICAgICAgICAgICAgICAgICAgICAgICAg ENAzUHCoBZNuWAYsTEHzRNQzWLEeETXbFPOwRHPpAHBdXJ6WJTLpTSZwPJYkIQCsJXDdVRRaHXKtGBSi ICAgICAgICAgICAgICAgICAgICAgICAgICAgICAgIC YqPIUuMKAmLMVdBBDjKRToWQGpVHXbAZTwYJFzFOUpGPYdQIEpVGPdVKOeVV3UWY85jBUvy0L3HHEzTK 0ndyc/Nb7LQKlmmzAhvJXgBB0SOyJcEZ4rlz5IFuTfFY5smd8VLPgQQwNbV8F4iYRpRDOcJNIGUyHjA4 5fCPenGp26LFsjBUIuOqEqYGj6Cl6SHeNkM9kfMHAz MhI6QWWrDbV0DYOhSzCmSUinAL2Ju9HakPUrUQp+Oj9FCV2gv9JgQUrcGwWuED3svd6CJRvTOcYaC7Tc pxL9EHJ9UEEtWj4WMLBzKWNepXHkZbNtTGREPdFjA8GetE89IRYJTo5+GGgjsjEhTkvOBfP4KZQni3Ic NPb7HO3XVRJlGAg8hKRsCCAlE5Okv8HvUe99JSZzXb tpLG7hvWWRbXoqzmovc26btKtlUJQQTQP8NRUxRw6qOXXgWNHaHlM3JQTNXO6YKIGnBRVffCNoYFLbMG PIWE7KROwzFFH2FEHjpbBwsUVpLYbjAI9OTQOaqlUpFGPmBQDZXXe+Ai4GMI2nd0HyPMrtHZZhFS2zfe 4KXMqMCoQcO9G3nJLnD7C0ICskDr3QHSZwIAHrZGXa OIHVABxeGJ4PGB9mipX1YU5RwNXzNKBcOATxcHIiVWr4S19dzEIfLTdxHZ3MLBV+Dulce+Kv4OMCRoLGUe WXXgWgIcNHDNPfYsD7NsU3UYr3WiJ2GuFY59vIfvyxEuKGezCE2NEN8wAWFsUXKEDD8RrPXxbQ1yhjUv ShDuDPFSCzFkD30oaTJhAKOtAJO8AFCgZu5RQCApG8 FueeGfdYxxwoJyZHBiHJDGDQ1MFCziiiFujHPncMjlUJ24oYmmPM7BSu8QDjJnLG1loa7YcMTkHh3CLZ DhWZ6QXAEvDQEeJVFwPUW9ZQIwDhDjWKilMMVnYEKqJES8JFXxMIQzPM7IIrUgTDNxKVdbRRHtISYjCC Oidb0MAAFdTTOfOGhaWzJlUEDmYHPhVWwkVMXnNYMc DCJ8TSMvMMYhSC3WEgEiMPTxGYEjDUOxPHNmMQLvbf4PJJWtFBBiDvX3CVSgKBYkGPXuZQykCOFoGHO9 VaCaVVXiBNIpCG1RCjXdWKNvXQW7UEIzVIKkHMSlqj9SKGIlYBOdYyX8HPWzYZSoWJNdLHvkPFYvZVO5 UqJnGLYwFICpUQ3VSrNmOHPgBPR5YHSnJDMxAGUhsk 8LMPZrCRQtPbvnYCRtLJGmNNNzANvdRZLeMNE4WIEfDRKqDTMxOV8IVdEdRIIqFXfzVFMyVPYdHRMlkd 9WRMMlMBWnMBO3SqOzTKWrXCOeWTjqIDJzWZEwHCOhEZKsBBWaKW2XVnSvDVArKBKcENCyFMCuOJAwht 4VCPTnJVFaNVP7MnGqYBUcWMGcLSl9lrLqyZWnNSp0 VX3AK8EdjjGwQLzBPz1Ul707AXI4XKEwEn3GU5bcEb4uQIWwELOWXk7YXSh9ZJCjMOmbXHScS3R9U0Vq QUFbVrX7ChB0GBU3JKEmTCN+QQchGSOcZAGlP3QwKiSzGIM6ZNXdNBc6WZxgYoofKOI1CR9gJBXTDg0+ SVspmRFytOnhUOGGLkFsMJP2ERmcKXQTEz8G ID Date Data Source [id number] 11/15/2019 06:23:08 AM EDT [facility] Name Value Range Interpretation Code Description Data Sudha rce(s) Supporting Document(s) Progress Note [facility] ZXLPHb2bOzWHClJa99/GLDdrVLVvb8YuUIrsXBr2KQwnJNQyB1SqKSI8bN7fOBL3SPeTAnVvOcXyBwGg lbm [file] YFSQOljpJNAWDzQvZW1TAXz= ID Date Data Source [id number] 11/15/2019 01:25:06 AM EDT [facility] Name Value Range Interpretation Code Description Data Sudha rce(s) Supporting Document(s) Progress Note [facility] OBKVWf5sUeMCZcVm62/KLUkmJSPhe3NzUOfjIFd4ZLrkRYNgV2SzXLR5cD4eIIR5CJbQHlSgMmJnKvXf lbm FxAmzLZrUeKBZwXtwKRqYzJVauMluldJQtYJ2UaJB4SZYpP56gMGEsJITuU9TtGIV4MDR+Gv9ILARdqB ZxTE1YJqeN5EgbfrHCNI7CfT4eKYMjaAsbd6p4stE0zNcMvOyXPetwP2+DSWBwYFjH+zuOrkR4dqdiW2 MIHno48o66ZiV21bqSnnVes8ebd7ekyy+tv/qhZA8z 7h64xFaw1Czg27JKQNcxV9ilUpp+XeVvbyGp124tdavyo5J9COlM09TCcZtdQQ9rHZ/M66q0bU8qPGUm yuL1IzsQ80E+C4WnAu/+wwc2/V4cJDikb0vC0lppIf2YawqTKY6fwhmFqZ0B0q/7ajPir3z2drViK6Qu cVk5CXeVEfca+IKmHtvTccLRfI49LQavQLVJ96TBnH [facility]+PzS0IUSnMBvau5jebtP2+PkDQusY9Nnuv8CeF8k1O5biU0SIvGg7sadW7MrFF+aaZ jrAfPN6Kaq75mFOEWRvD6665/Uq7yUKZv5xAwC3RIqNlOR9QIqWvz8nzN9bvChJ4G0zmIiCNvW75gH+N GYi54x28+I614cL/DNIe1J9dtdCwpU1K7grUdI0uaE L1WlfRPz23Mdlbha/B4LTGUbyw0FFoIqejV1kmBJQlWMGtvCZbzHbgJN6t6KAjYE28y+Z/vfrqLLwOE5 /+Brock/MpK+HjtJ8ZoyIsbc2gVupLsNJMuPOsR1NLSJwBFc4y9BzNUqR5zgLTqyFfTtjAxiIbUOUVn28O [file] GVOgD0ScTKU9FKneYbT0YSOpTNOnOP3wDNQSMw1+FTpqlYKivRwlFEVMGkU3IQDPCjUtZT8KLBi= ID Date Data Source [id number] 11/15/2019 02:10:20 AM EDT [facility] Name Value Range Interpretation Code Description Data Sudha rce(s) Supporting Document(s) HIV 1+2 Ab+HIV1 p24 Ag [Presence] in Serum or Plasma by Immu noassay Non Reactive [facility] Negative for HIV-1 p24 antigenand HIV-1/ HIV-2 antibodies. Nolaboratory evidence of HIVinfection. ID Date Data Source [id number] 11/15/2019 01:38:02 AM EDT [facility] Name Value Range Interpretation Code Description Data Sudha rce(s) Supporting Document(s) Leukocytes [#/volume] in Blood by Automated count 10.4 10*3/uL 4-10 [facility] Erythrocytes [#/volume] in Blood by Automated count 4.23 10*6/uL 4.1- 5.3 [facility] Hemoglobin [Mass/volume] in Blood 12.7 g/dL 11.5-15.5 [facility] Hematocrit [Volume Fraction] of Blood by Automated count 37.7 % 3 6-45 [facility] Erythrocyte mean corpuscular volume [Entitic volume] by Auto mated count 89.2 fL 80-96 [facility] Erythrocyte mean corpuscular hemoglobin [Entitic mass] by Automated count 30.0 pg 27-33 [facility] Erythrocyte mean corpuscular hemoglobin concentration [Mass/volume] by Automated count 33.6 g/dL [facility].0[facility] width [Ratio] by Automated count 12.7 % 11.5-14.5 [facility] Platelets [#/volume] in Blood by Automated count 305 10*3/uL 150-400 [facility] Differential cell count method - Blood [facility] Neutrophils/100 leukocytes in Blood by Automated count 56 % [facility] Lymphocytes/100 leukocytes in Blood by Automated count 38 % [facility] Monocytes/100 leukocytes in Blood by Automated count 5 % [facility] Eosinophils/100 leukocytes in Blood by Automated count 1 % [facility] Basophils/100 leukocytes in Blood by Automated count 0 % [facility] Neutrophils [#/volume] in Blood by Automated count 5.85 10*3/uL 1.8-7 .0 [facility] Lymphocytes [#/volume] in Blood by Automated count 3.97 10*3/uL 1.2-4 .0 [facility] Monocytes [#/volume] in Blood by Automated count 0.53 10*3/uL 0-0.8 [facility] Eosinophils [#/volume] in Blood by Automated count 0.05 10*3/uL 0-0.5 [facility] Basophils [#/volume] in Blood by Automated count 0.04 10*3/uL 0-0.2 [facility] Nucleated erythrocytes/100 leukocytes [Ratio] in Blood by Automated count 0 /100{WBCs} 0-0 [facility] ID Date Data Source [id number] 11/15/2019 02:00:16 AM EDT [facility] Name Value Range Interpretation Code Description Data Sudha rce(s) Supporting Document(s) Albumin [Mass/volume] in Serum or Plasma by Bromocresol green (BCG) dye binding method 3.8 g/dL 3.5-5.2 [facility] Bil[facility].total [Mass/volume] in Serum or Plasma 0.5 mg/dL <1.2 [facility] Calcium [Mass/volume] in Serum or Plasma 8.3 mg/dL 8.6-10.0 L [facility] Chloride [Moles/volume] in Serum or Plasma 105 mmol/L 98-107 [facility] Creatinine [Mass/volume] in Serum or Plasma 0.45 mg/dL 0.50-0.90 L [facility] Glucose [Mass/volume] in Serum or Plasma 113 mg/dL 70-140 [facility] Alkaline phosphatase [Enzymatic activity/volume] in Serum or Plasma 98 U/L 35-104 [facility] Potassium [Moles/volume] in Serum or Plasma 3.9 mmol/L 3.4-5.1 [facility] Protein [Mass/volume] in Serum or Plasma 6.4 g/dL 6.4-8.3 [facility] Sodium [Moles/volume] in Serum or Plasma 142 mmol/L 136-145 [facility] Aspartate aminotransferase [Enzymatic activity/volume] in Serum or Plasma 28 U/L <32 [facility] Urea nitrogen [Mass/volume] in Serum or Plasma 9 mg/dL 6-20 [facility] Osmolality of Serum or Plasma by calculation 293 mosm/kg 275-300 [facility] Creatinine/Urea nitrogen [Mass Ratio] in Serum or Plasma 20 [facility] Bicarbonate [Moles/volume] in Serum 23 mmol/L 22-29 [facility] Alanine aminotransferase [Enzymatic activity/volume] in Seru m or Plasma 42 U/L <33 [facility] Anion gap 3 in Serum or Plasma 13 mmol/L 8-15 [facility] Albumin/Globulin [Mass Ratio] in Serum or Plasma 1.5 [facility] Glomerular filtration rate/1.73 sq M pre dicted among non-blacks [Volume Rate/Area] in Serum or Plasma by Creatinine-based formula (MDRD) >6 0 [facility] Glomerular filtration rate/1.73 sq M pre dicted among blacks [Volume Rate/Area] in Serum or Plasma by Creatinine-based formula (MDRD) >60 [facility] ID Date Data Source [id number] 11/15/2019 02:00:16 AM EDT [facility] Name Value Range Interpretation Code Description Data Sudha rce(s) Supporting Document(s) Magnesium [Mass/volume] in Serum or Plasma 1.9 mg/dL 1.6-2.6 [facility] ID Date Data Source [id number] [facility] Interpretation Code Description Data Sudha rce(s) Supporting Document(s) Phosphate [Mass/volume] in Serum or Plasma 2.3 mg/dL 2.5-4.5 L [facility] ID Date Data Source [id number] [facility] Interpretation Code Description Data Sudha rce(s) Supporting Document(s) Thyrotropin [Units/volume] in Serum or Plasma 8.010 u[IU]/mL 0.270-4. 200 [facility] ID Date Data Source [id number] 11/15[facility]2019 [facility] Value [facility] Interpretation Code Description Data Sudha rce(s) Supporting Document(s) History and Physical [facility] RQTRMk7xUmNNUrQg78/OHKbbNCNdg5FdBRmxUFy1LWtwYJGhA4IlSRB0uS3tRBV6NWgCJmKfJtFmRvKy [facility] [file] AgICAgICAgICAgICAgICAgICAgICAgICAgICAgICAgICAgICAgICAgICAgICANCiAgICAgICAgICAgIC AgICAgICAgICAgICAgICAgICAgICAgICAgICAgICAg ICAgICAgICAgICAgICAgICAgICAgICAgICAgICAgICAgICAgICAgICAgICAgICAgICAgICAgICANCiAg ICAgICAgICAgICAgICAgICAgICAgICAgICAgICAgICAgICAgICAgICAgICAgICAgICAgICAgICAgICAg ICAgICAgICAgICAgICAgICAgICAgICAgICAgICAgIC AgICAgICANCiAgICAgICAgICAgICAgICAgICAgICAgICAgICAgICAgICAgICAgICAgICAgICAgICAgIC AgICAgICAgICAgICAgICAgICAgICAgICAgICAgICAgICAgICAgICAgICAgICAgICANCiAgICAgICAgIC AgICAgICAgICAgICAgICAgICAgICAgICAgICAgICAg ICAgICAgICAgICAgICAgICAgICAgICAgICAgICAgICAgICAgICAgICAgICAgICAgICAgICAgICAgICAN CiAgICAgICAgICAgICAgICAgICAgICAgICAgICAgICAgICAgICAgICAgICAgICAgICAgICAgICAgICAg ICAgICAgICAgICAgICAgICAgICAgICAgICAgICAgIC AgICAgICAgICANCiAgICAgICAgICAgICAgICAgICAgICAgICAgICAgICAgICAgICAgICAgICAgICAgIC AgICAgICAgICAgICAgICAgICAgICAgICAgICAgICAgICAgICAgICAgICAgICAgICAgICANCiAgICAgIC AgICAgICAgICAgICAgICAgICAgICAgICAgICAgICAg ICAgICAgICAgICAgICAgICAgICAgICAgICAgICAgICAgICAgICAgICAgICAgICAgICAgICAgICAgICAg ICANCiAgICAgICAgICAgICAgICAgICAgICAgICAgICAgICAgICAgICAgICAgICAgICAgICAgICAgICAg ICAgICAgICAgICAgICAgICAgICAgICAgICAgICAgIC AgICAgICAgICAgICANCiAgICAgICAgICAgICAgICAgICAgICAgICAgICAgICAgICAgICAgICAgICAgIC AgICAgICAgICAgICAgICAgICAgICAgICAgICAgICAgICAgICAgICAgICAgICAgICAgICAgICANCjw/eH LdZ7xbnENcaoS6A5wlKh5YNt8DQQ4yf2PmYJZmDRqb qqRtAsrGEsQiNQNdEuaUHqj6RHunBC5VfCAvT8FaD7FsOAsmCO2AIACfHSUbsWIsXKXdGQSiAiN8CKIw MIczVX0InCIjJJonQTGcICRwTnXdWGUnNMCtSXKiAEYmSPXNSOOpMBNfYiEkCDmqUL6Px0DhgHR2OPq+ Xc4RWW1iy8PvGBckZcRhTT4kya7YVDoLCkPcO9Jxuq J2IZH4VVRzEd6KNFYvRXAaxUTlXSYgTJZZPeUsR2UrmL13DBUJYa0+JOjqqhJfWayJOzA5WAIaq1BzZV c9BG4TXBXvLUq1eTUdUWLIMHS2ZXVfusY4LY2ct2ZyPE3ABOF9ITDqXK1cUFRtKFTzMkY3XPKDLQ8SMH TxGWZhlOFxRXJeZYTSQU8OAJltAKL8OAHaqjWjyFSd ZCuvYI6DJOTgreTbRgZdQYIRVQk+Nw8JBE7cg7NcRPtwHYOyLR3vty8OTHoCMlVrW4E5kJPiG9E4LTxr Jc8HYRDrAFWxEuUaIAFXSXbsRO9TUH4xrzB8JO7KoSItVRMzXIMzuFXmSZc3T00oaXApZEipZM4NMMI+ Dulce+Zh3GPFPdYJFeLAScDyKoZCJLEsOmU3DkR1WEp4 BrS3RqPO72hJqaylDlZMepUW8WXW6kETWeUEPGTN8RzGNwkO3qazXwUzEjNDQJXzJoJ99heGHaDBThEV ZkBKBxSr9CPVKzU9BunuRfpXxdllTgABEpHGBNJR6EIQunzdPclAQgiFtoLX29bGqsEU4KOr5MAxZuBI 7hqw4ZmVYjSy6IPXWdBk4ZJWLaDXFcTGAyDWS8OADy GdGdYHvsVWDsPIGqZEG9KFReAEAqEK1BCgJyJSRuKdJyLsOqVIPhYKPory4UWAIyNULwFub7LdUjUBJj FWUsSNkxYWHpIPUfDRX9OKVdYKDqRT6HUjRjGNRqNKUvMMPnVTJyBFXaoy2SJGFhRTTvLFO6DTYaEBEs WOVeHAhoCLQqGZO1XbOwXDJeHXLhLS1ZSyFyZKMaXQ b1KrKzNUXkYNPqid3YDWCqKRPlDAzvWwItOSVfVXNkZQouNZKtAJDeDDCmIGJvHWBiSK1JIgLkHMYmEG W0YRHnXBXuTQEjsg0EHKJvANXdNNnrSMIfNYZaADIyURzhVNRzUGG2AeR0LVHmOZBhIS2DUuRqILCmVW c7IyGqQLIbGKMqiv3GQCDkWPFlOXVtRVPoNSXjYVCu EWjoNXZoRXP2JlGfXRMjMYIfDY1SEvThKPBpZHk6VQXpGJJeBSOqkf8SMHBaVKShBEl9YvWnOUTwXWOx TUsaNWZkNVDcXNL7LEGrJZOpLV2WVqToIMOfZvBxUVDwXNCiBMHptb9KXIXfCKCmJNToVcIzMTTwSWPp TSmgBJSrKATcTMIjOCYoEKNaIZ2UFvUpBZIoRsV0NO FxFLMfAWNqdm0ELXPqHRLjQsp7XYAmZLYbCACrPLwpCXArVLMbMpt5OSAdLZIhHP7IHlCkWOAaVcL2DF FkDQCzOXTesm9CICHwGJKtBus6IVIxNQXkQVUoUIrxGJRcWHEfRNxnDBYlXVOnJG9HWtNnQBTiMtC7Hw NvVVVlEURxtf6CGVMhONFnMKHmQrWrBAXtGJHiDBuq NKRqGRG7ArZxOZNkDSItQQ7MRyWlLIDqCnW2RhMbBRAmDYBbyw5CYHKgZGPdDkU8XlNnHLPuLOXxKAug OELuASH9EUB5QPDxXIGwHD9TIvSaCPCfIhumYYCmIZEiNXMxtu7MkNWhoEslwg9DREuSVg9QqHvpGOY0 NNejRc0syCEwXRJbVSSFNs6BxfXnLANxRDGIRPvfPI BbJJvmJrHeHGYgTUvwFECkQDu5T5ElXREcTIU7W9JcNwWiRcM4P0OfFMR1DCD8UTM0RVHdVXE0UNMiIx FlYTZjYTFmZmI+IE0pBAh+Wm4Eu9SrzkN7xxUqIFaxVvF1IF3TTWGAN4OEMl== ID Date Data Source [id number] 11/15/2019 12:36:04 AM EDT [facility] Name Value Range Interpretation Code Description Data Sudha rce(s) Supporting Document(s) Progress Note [facility] WMUAAu6iScKNNrBn69/HKGtbXGHxl9KqQJskTRt6QUqgVMJhS0VsRLE2aD6vXWY6THqIVwIbKiRiSwPd lbm [file] RMa2kXM3bVRmrdowW6Iy68nVIThj5Qgmh8gaoWYDjd9+martín+USFxSM3UPqLAaYnq/2zQ126EhN5EaPaC [file] XugQwfWtKFsPxUof2AmCniDEszyvaXtfFysuJC6oTwC/cGJSv82ABZ+RUBÉN/w57X6CtJDTtGvpKFF++Me [file] qr94FhPLEN/Dk6mfyX5EYL+vp respiratory+Abd4PreDVDT+SHnxU+fJFsY/d9YqRFs2HIjtyXhcxCNwmSknohmx7z [file] cRx7ZYlzf0OPOyABQEAKWAQOGHEFQRTQFAPCSTSDIYLXYYLSUSISFHQDWHBOCQNIGMDXITHGKUKGUBKQ AAAAAAAAAAAAAAAAAAAAAAAAAAAAAAAAAAAAAAAAAA AAAAAAAAAAAAAAAAAAAAAAAAAAAAAAAAAAAAAAAAAAAAAAAAAAAAAAAAAAAAAAAAAAAAAAAAAAAAAAAA HQDEYLEESHQFCJOPPPORCBINZYPQPs9t+QUoK2YLavqvVgyEOmVK9NCdPwYV6rzz1AOJDyZQPzCutSKh eaXSeoxePjIoxOJgJmGHOdRttEUqt5KFoiIQ0Yfi6i Z5A7UYqyGHOUE5IdxUCrLP9zK5OFO9fhUWynWj5KChIiA0RtzxTpFSqaV7MwSUmlTBJSCTidUYNnN0Zk IDExIDAgUj4+VHvhGU7JG3DqZXN4TSn5YA6mlXwwTZIwDPBbOz5DTFQkAA2zhGraWANmLDCrGg6+DQog HE7UqIETL8DufUBpFHaeD2OSQJ7UVOA1WD3MdSKtPL 2VtLOXV1SgqKFhTv0iISFwd5VyMi5uD3OIOKUFRZMcAVelSYheTRIcPFl8A7A3PCFuH3XOS448cLRnsQ u7Av2xG0TYIRfUSjJfJBfwBTyqAQZwXIn5L0D2OOZeF3XAH3SoOyZyvfBpI1R+DgViJSXBIF3RWANSIZ s8B8B9lHNoJ6C7pRsTgAS8WK7QXY9ViFZozEYas10+ ClFEEsEkG5RDP4VAEU0GKNi9O4L4cNIsO6U2sJoNnPB1HS3NFE3BgWrcgTHuLu7sVYifMBX+Yt9HRr3D AeCoRU5dnw7NOTKdRLScWqnKFyr1R4nywbv3vGFsMcR5R8I7NnG8rEIqPR2BT3H8fTXvLFH1CZAwpLE+ Ig9Vw9ChHJVoJCh6I1ujYSGdMGEwPjIexI40F++7vy ptmGM1B7h9ASXUlDGnrUvCigMyG9eDJXH3s4I2EVs/Fb9QEBY1iLl1vDDkCOKdTZu9uO6lvUi4TqNbNG 19ROKoSRekcE0jZfy0I5Plj8DpUn3xCw4xmBJkZo0BGzVuISY6taWkLrQWFlK8cAmlecguBAL0D3k7lM B6Br71l0rfilIvo8EiRrU1FSluIVHcMiSiazCoYZO1 alLwzC1wyiIxNv6GJGVqKRqnvyJiDsVWOg6GNkZhVR54DzjqxQ8glVT+DQogICAgICAgICAgICAgICAg ICAgICAgICAgICAgICAgICAgICAgICAgICAgICAgICAgICAgICAgICAgICAgICAgICAgICAgICAgICAg ICAgICAgICAgICAgICAgICAgICAgICAgDQogICAgIC AgICAgICAgICAgICAgICAgICAgICAgICAgICAgICAgICAgICAgICAgICAgICAgICAgICAgICAgICAgIC AgICAgICAgICAgICAgICAgICAgICAgICAgICAgICAgICAgDQogICAgICAgICAgICAgICAgICAgICAgIC AgICAgICAgICAgICAgICAgICAgICAgICAgICAgICAg ICAgICAgICAgICAgICAgICAgICAgICAgICAgICAgICAgICAgICAgICAgICAgDQogICAgICAgICAgICAg ICAgICAgICAgICAgICAgICAgICAgICAgICAgICAgICAgICAgICAgICAgICAgICAgICAgICAgICAgICAg ICAgICAgICAgICAgICAgICAgICAgICAgICAgDQogIC AgICAgICAgICAgICAgICAgICAgICAgICAgICAgICAgICAgICAgICAgICAgICAgICAgICAgICAgICAgIC AgICAgICAgICAgICAgICAgICAgICAgICAgICAgICAgICAgICAgDQogICAgICAgICAgICAgICAgICAgIC AgICAgICAgICAgICAgICAgICAgICAgICAgICAgICAg ICAgICAgICAgICAgICAgICAgICAgICAgICAgICAgICAgICAgICAgICAgICAgICAgDQogICAgICAgICAg ICAgICAgICAgICAgICAgICAgICAgICAgICAgICAgICAgICAgICAgICAgICAgICAgICAgICAgICAgICAg ICAgICAgICAgICAgICAgICAgICAgICAgICAgICAgDQ ogICAgICAgICAgICAgICAgICAgICAgICAgICAgICAgICAgICAgICAgICAgICAgICAgICAgICAgICAgIC AgICAgICAgICAgICAgICAgICAgICAgICAgICAgICAgICAgICAgICAgDQogICAgICAgICAgICAgICAgIC AgICAgICAgICAgICAgICAgICAgICAgICAgICAgICAg ICAgICAgICAgICAgICAgICAgICAgICAgICAgICAgICAgICAgICAgICAgICAgICAgICAgDQogICAgICAg ICAgICAgICAgICAgICAgICAgICAgICAgICAgICAgICAgICAgICAgICAgICAgICAgICAgICAgICAgICAg ICAgICAgICAgICAgICAgICAgICAgICAgICAgICAgIC VgGIk9G5xyXRHcFVDdDS5tSLg2Km9+JTzQCtUmLDO8rzMtmN4FRC5aa1RaBFhlVZMja1PkQNv5LL1KLX OmDJjrNM5VDIgqmx3IEVVfTYBroUZIq9niXqUeOLW7QFUdJqltIT1XBBDnG9mgcsLoGSCjVUZAQM4OZd EqL9WprR51OSMREs0+BUjkbnEyDfwHMjD7XOAxr3Mk GTo2EY0MDPDmKpsdu8RgVZhaBJHYIPrsDH3FVFX6GIF4UIDfDf3AISPhR342coZkUZ5JUw4SAuAfIF3p xg5UBAahMFBqEkvANek2JGcwFI2LfRIaUNaYsl4szqLignHTp5JixmFcpVDEMI6mJVfeNPZXsIIdogNg AKMPBMZ5QOGeTl1oZZWuWHZdApK8YRTERF2TISDkWV BzcAFoKRXlMTKDVE9OXAeiYXH8JAXulhAatJPaLYqbVR7IMYCledHcGHRrWFYTWQy+Xg2MDY5ki4SmAI jkPRInVV3lrt2QAVmUYyDhQ4V3vXDsR2Q6BIrfEj5LMMXsDDBkCMUrMOXWREciUU0KCG9gjpX3CL9PfK NcAFXeJNPavLWdBAm1B85kbFJaJJwpYB7KNGI+Dulce+ Dh3GKJOzFLPuBRWrOkMwBADVOiVcX0FhU1IPh1ChB7ZqAN51rSikkzUiSYqyFP9XWL7oZNVxIITCVJ4F dLBmvA7ktdSbGxOwAKOWJhTlN85xmFByTCFjUYX5PRAzCb8FFIZcE1InuxTexPxowfMjJAReDUXBJJ2Z OKvhxiHfoSDdwInhXD11pTqnPX1CXu8STwKiFC8svi 3TqHOmOf6VZDRdCM9XVACeAKYiBUSuSBB9IKLqNfFiRAfsXPUpCGVxVYH0QVUyNTUiIH0HAxYxTGSuQG ixNJGgVJUwVWSxkv5QXMQbYAJ2USj6VUFcHEXzBMFpBGpeKEShTSDjOFL4OZQcBHIdEQ6MEjLlIPJlNV B0EJTpXHQyYLOxgu4SDJQkNPJiPFIpNMCdRBEoHYMz TVvgTZUmFKDoCWo1SGDgQLQlPL1LViKlFXXuYWQ2KdIrQSKuWJGghf9EQDXtDVPjRmq1HDBwJEQuSACy BMfsIKWxZTJdDRDpXLDfMQQiTO9SBeDqEQWpJEHlSMMjBXKmCYFyny8NBCNbBVCoMBBoOYJwTBRwIZTs MEfzKSJgLQF3BKU5DZLdGSJyRQ6LGmXyWCHjNRjnSu BhWOOjYKEhbr3EXAYhNHR7XRX6WDRwAONaLEHlGKscEEMeFLZxQJl5IEXgISDdJA8ZAkNrZHUiSMC3JG udQKZvXTFvwg1ETDYyREO0ILFxUhCvYDXdKWSaJNf7jbJxpQNxFRa4SV1KB5HwzuIpHCxNRt7Xp312RO G3CRUvRy8DK2agCp0oGEBfNIAGVz7VZPm5YXHfKAI1 LEltAuyyUzWhOSYuTPC1LAj2SfPxXnVdOXX+BRvxJGOkMNO4XYOyRRHsCKQjUDLbHIT2YBryCQIdZcGk Ky2xIZRMKy0+JJdnkJXjuFlzUOWWReL0UJC2KQ7MXSGLO6ZRTq== ID Date Data Source [id number] 11/14/2019 10:33:51 PM EDT [facility] Name Value Range Interpretation Code Description Data Sudha rce(s) Supporting Document(s) Color of Urine [facility] Clarity of Urine [facility] Specific gravity of Urine by Refractometry automated 1.003 -1.030 [facility] pH of Urine by Automated test strip 6.0 5.0-8.0 [facility] Protein [Mass/volume] in Urine by Automated test strip Neg [facility] Glucose [Mass/volume] in Urine by Automated test strip Neg [facility] Ketones [Mass/volume] in Urine by Automated test strip Neg [facility] Bilirubin.total [Presence] in Urine by Automated test strip Negative [facility] Hemoglobin [Presence] in Urine by Automated test strip Neg [facility] Leukocyte esterase [Presence] in Urine by Automated test strip Negative [facility] Nitrite [Presence] in Urine by Automated test strip Negati ve [facility] Leukocytes [#/area] in Urine sediment by Automated count 0 -5 [facility] Erythrocytes [#/area] in Urine sediment by Automated count 0 /HPF 0-3 [facility] ID Date Data Source [id number] 11/14/2019 06:44:59 PM EDT [facility] CT CERVICAL SPINE WITHOUT CONTRAST [id number] FINAL RESULTInterpreted by:Beverly Tilley, Kristen Casas MDINDICATION: [...] Name Value Range Interpretation Code Description Data [facility] rce(s) Supporting Document(s) ID Date Data Source [id number] 11/14/2019 06:41:18 PM [facility] CT HEAD WITHOUT CONTRAST [id number] RESU LTInterpreted by:Beverly Tilley, Radhafazal Thaoclarafabiola, MDCT HEAD WITHOUT CONTRAST [id number]: Fall, syncope versus seizure TECHNIQUE: Noncontrast CT of the head using axial technique was performed. Automated dose lowering techniques and/or adjustment according to patient size were utilized for this exam.COMPARISON: NoneFINDINGS: Suboptimal study due to motion.No intraparenchymal hemorrhage or midline shift. [place]-white matter differentiation is well preserved without evidence [...] Name Value Range Interpretation Code Description Data [facility] rce(s) Supporting Document(s) ID Date Data Source [id number] 11/14/2019 06:30:48 PM [facility] CT ANGIOGRAPHY THORAX [id number] RESULTI nterpreted by:Obdulio Pascal, MDCT THORAX WITH [...] rce(s) Supporting Document(s) ID Date Data Source [id number] 11/14/2019 04:22:17 PM T [facility] XR CHEST FRONTAL ONLY [id number] RESULTI nterpreted by:Dereck Washington MDINDICATION: Syncope, shortness [...] rce(s) Supporting Document(s) ID Date Data Source [id number] 11/14/2019 07:23:13 PM [facility] Cmnt XXX-Imp : NoneMicroorganism XXX Cult : 2019 nCoV Real-Time RT-PCR: NOT DETECTEDTest performed using the [employer] Simplexa COVID-19 Direct Assay. This test is only for use under the Food and Drug Administration's Emergency Use Authorization.Additional information is available on the following FDA websites for health care providers and patients. https://www.fda.gov/media/036721/download , https://www.fda.gov/media/391659/download Name Value Range Interpretation Code Description Data Sudha rce(s) Supporting Document(s) ID Date Data Source [id number] 11/14/2019 03:14:00 PM [facility] Cmnt XXX-Imp : NoneMicroorganism XXX Cult : 2019 nCoV Real-Time RT-PCR: NOT DETECTEDTest performed using the [employer] Simplexa COVID-19 Direct Assay. This test is only for use under the Food and Drug Administration's Emergency Use Authorization.Additional information is available on the following FDA websites for health care providers and patients. https://www.fda.gov/media/711634/download , https://www.fda.gov/media/354647/download Name Value Range Interpretation Code Description Data Sudha rce(s) Supporting Document(s) Microorganism identified in Unspecified specimen by [facility] This lab was ordered by [facility] and reported by [facility]. ID Date Data Source [id number] 11/14/2019 02:57:38 PM [facility] Name Value Range Interpretation Code Description Data Sudha rce(s) Supporting Document(s) Troponin I.cardiac [Mass/volume] in Blood 0.00 ng/mL 0.00-0.08 [facility] ID Date Data Source [id number] 11/14/2019 02:59:12 PM EDT [facility] Name Value Range Interpretation Code Description Data Sudha rce(s) Supporting Document(s) Leukocytes [#/volume] in Blood by Automated count 12.9 10*3/uL 4-10 [facility] Erythrocytes [#/volume] in Blood by Automated count 4.43 10*6/uL 4.1- 5.3 [facility] Hemoglobin [Mass/volume] in Blood 13.6 g/dL 11.5-15.5 [facility] Hematocrit [Volume Fraction] of Blood by Automated count 39.4 % 3 6-45 [facility] Erythrocyte mean corpuscular volume [Entitic volume] by Auto mated count 88.9 fL 80-96 [facility] Erythrocyte mean corpuscular hemoglobin [Entitic mass] by Automated count 30.8 pg 27-33 [facility] Erythrocyte mean corpuscular hemoglobin concentration [Mass/volume] by Automated count 34.6 g/dL [facility].0[facility] width [Ratio] by Automated count 12.8 % 11.5-14.5 [facility] Platelets [#/volume] in Blood by Automated count 315 10*3/uL 150-400 [facility] Differential cell count method - Blood [facility] Neutrophils/100 leukocytes in Blood by Automated count 75 % [facility] Lymphocytes/100 leukocytes in Blood by Automated count 20 % [facility] Monocytes/100 leukocytes in Blood by Automated count 5 % [facility] Eosinophils/100 leukocytes in Blood by Automated count 0 % [facility] Basophils/100 leukocytes in Blood by Automated count 0 % [facility] Neutrophils [#/volume] in Blood by Automated count 9.61 10*3/uL 1.8-7 .0 H [facility] Lymphocytes [#/volume] in Blood by Automated count 2.51 10*3/uL 1.2-4 .0 [facility] Monocytes [#/volume] in Blood by Automated count 0.68 10*3/uL 0-0.8 [facility] Eosinophils [#/volume] in Blood by Automated count 0.03 10*3/uL 0-0.5 [facility] Basophils [#/volume] in Blood by Automated count 0.04 10*3/uL 0-0.2 [facility] Nucleated erythrocytes/100 leukocytes [Ratio] in Blood by Automated count 0 /100{WBCs} 0-0 [facility] ID Date Data Source [id number] 11/14/2019 03:19:52 PM [facility] Name Value Range Interpretation Code Description Data Sudha rce(s) Supporting Document(s) Lipase [Enzymatic activity/volume] in Serum or Plasma 14 U/L 13-6 0 [facility] ID Date Data Source [id number] 11/14/2019 03:19:52 PM [facility] Name Value Range Interpretation Code Description Data Sudha rce(s) Supporting Document(s) Bicarbonate [Moles/volume] in Serum 26 mmol/L 22-29 [facility] Chloride [Moles/volume] in Serum or Plasma 104 mmol/L 98-107 [facility] Creatinine [Mass/volume] in Serum or Plasma 0.49 mg/dL 0.50-0.90 L [facility] Glucose [Mass/volume] in Serum or Plasma 94 mg/dL 70-140 [facility] Potassium [Moles/volume] in Serum or Plasma 4.3 mmol/L 3.4-5.1 [facility] Sodium [Moles/volume] in Serum or Plasma 139 mmol/L 136-145 [facility] Urea nitrogen [Mass/volume] in Serum or Plasma 11 mg/dL 6-20 [facility] Anion gap 3 in Serum or Plasma 10 mmol/L 8-15 [facility] Osmolality of Serum or Plasma by calculation 288 mosm/kg 275-300 [facility] Creatinine/Urea nitrogen [Mass Ratio] in Serum or Plasma 23 [facility] Calcium [Mass/volume] in Serum or Plasma 9.0 mg/dL 8.6-10.0 [facility] Glomerular filtration rate/1.73 sq M pre dicted among non-blacks [Volume Rate/Area] in Serum or Plasma by Creatinine-based formula (MDRD) >6 0 [facility] Glomerular filtration rate/1.73 sq M pre dicted among blacks [Volume Rate/Area] in Serum or Plasma by Creatinine-based formula (MDRD) >60 [facility] ID Date Data Source [id number] 11/14/2019 02:52:37 PM [facility] Name Value Range Interpretation Code Description Data Sudha rce(s) Supporting Document(s) Choriogonadotropin.beta subunit free [Units/volume] in Serum or Plasm a <5 [facility] (NOTE)Levels between 5 and 25 [IU]/L may indicate earlypregnancy and should be repeated after 48 hours. ID Date Data Source [id number] 11/14/2019 02:03:55 PM EDT [facility] Name Value Range Interpretation Code Description Data Sudha rce(s) Supporting Document(s) [facility] MQVLAj8aWsDIHxXsu9CoVmKgLVNhFH6orwo3J6M9nJUhM0IdsFIuy0tsV0VzM7ZfCTLdUMIMHZ7OpVYe jb2 [file] senior svp+ilXwnPe+gt9S612ysjSrc8Ot9/9Suo5BVN3Rw0M 09d/5TOp/NH3XD/9MxTonl2qvstwuW/6Ts8uf/RdnlP/+9/EEn2SUe+o4r5H8KfrGvq/6TvqKLr+lTd7 81lN8Ongsd/T99f/9Aw/lC9gRG12T86uPTzx+aPvysoOf/XKjtlENX40425q2jelsSqWc119/lu3g86z +fQP1+/z96o2FZ3eVap/+/v1U4/nnvdr/8jvf67c5p /7Mm0p9j/rxd50SXgZs7hvdEyart+/0e0h5q3/dH9VSmmFtod3wmIYS5L8L03tahxdgX4+5bfCdyWDH6 4/Uf9Cu+s+U95B0gdPmc4BodKvJB0WPg29bKSuj6fx6+japg57g7OkBi578A7E2zC5p94Kgy/5ZSlx4q z4TVT3kuO+a8HQMzsBzs2nafVaH8gND9XSjVszHk52 u7U4DBnZL+Kr7WTfk1tG2nnHrn/2r2MxEdoW6The5gT5buwRo8I7eMenaF177aJbK7OvAo8n6ba/9H2v d1v9ZIp482Z2Y185at0vUjp+v1/b0lNBhM7FyqGnhmz+kt38FxE1GEyXuDZ7Y5aSqIc1I/lA+GA50P12 fkc4raN3t65wd7/aKeQ+Qa8OpjeFqEG+DvwVC9Czd7 7J4+7zO3fc+8JOHX+ck4lfxvAw09yuxMz0dMl+Xg+ZU1EIjO+UrzfOZ/QsDQRb8tl7pnNjTdZWrJ+da5 OvhADPXW0q9lRvEgCY8FTdV4/zsAvg6yDv80h/gdVl15fmG9kZqnd8G03HZ0+vF8rX/a22jqjHy/Jre/ lJFr/Xg8Cri9Xgnx2C+opf+b1bX6+ykg9U84T+4lf+ g8DkIInyathrvfeR5d0XrzdL62lKz7lz86wqs/i48dCMdh96O124e5/Xrza/cn8r+/58eJd1Tji0tsWd C/y5wJ/RLqv11pYJolod+/Svarc/Puy4QqajajxO/DymUQrM69z4aa0g73fyF930coeJn0+BO9HbY+PO 993FSW2xUJ9A2c4KRmw5fFyvVyYsd+c5k3vz9Ex766 jrmBE4biPcc9Ci0vfmjqvmHnVxxbIkN42j0ClK6kimgr9q06je6RDyHR5Ri8V79Wbsg4L2MM9uVejrpS 5193qnh77cgv712ydG13c046vh40JmrzKZucwh6gRl6rKu34p7umfIS5+WC420Rf/S0gudSeYrgFx4lo ez+JWuxa/J3oQb0vgucz/f+O7Bl7ueQju9LdahdXpC K6Q2aFlZUv6Dnh+aX99+JF9qpf6k7hHG6hgWMiigziT+z52y9WUe/25+5facGH/nnR/t7OzT9+ +57wk7frqZF8t+5Van3F26VvxShqNprmveQmW/MzH/R0/Mggv28SyelA/nvNB1W+54OemLzngyrf/Gop dynnrb4C/it+VR2b5oO1ppr07vtf92Ci5Z0i/N386p QjPi/pwc2e1Nthsem9Bwkw9ko2ViDrO5+/49XU9dmqcEk+LFEz4O08x/iVuTE5FKuZ/RX1VNR/1zdKai hjIX9rQyesEE4ib/qWdPtvSbf/Ukp3x7W4vqtpa3KG0Zm/v/232H2/fRdGN77zFU0Q/F2sNyIsxulDc0 DvJ34/Yd8nelFHJt9h+dBlYp4w84TpL8vY84ZzG96K 8atz/Y6/XricFLL2huofhPP2m5earRZ1LVEMP/Y9bts362SrX46oUA4Xs6Y0e9L4y9Vy5w5A8bfZLbNf jSJ+5rbI8Aiu8KeEE5dE4Vj6+zHOaD6xDoD7IvbUxlrvf12ry7eHU38yVx/ogeMjb3bmpkBhx8z+fm9B TqRKv9R0oj7egxkPC6f25vvY+Kb1JzkOmjUio6OU5c /Uf/lGEb/Fv9wp4pdNs8CJs/Vs8j4hZQ0+5Y3qFAc/ko9p/Vw0MyiAab3d/2Y8uH69pNaED3Cc/zb034 b+q/Mal24NhL58hb417Xw+W7qh/MTD2bSsFhAQ2z/894hXWr/o99uiahhBj6J+VbB+VbB+QXp4GmrF2Z 99O/QFvyrjrj+Isasgq0vc0DCiP6GyiMjYSn0LBcGt qwJ+AeAaXwwVKV7bP+QX1cW9KEliO+Y3us1YN86iyVvV6J9Rb5nIXHu4ahED/Of06kUf6Q1aiGp3aefl 32v8/gOmdex5Od+GJ1EikUD8LvrRIlohmiYoDKuntr3MrW/jgnL46X6H9LadRjVnE9CQk/WmCw3y556N rCHXRcT6dDme0g4yF3/v4ivOBpF1ywF6hnFJJos+rz WGV4gIoaauqpqNqL+9cXInKr/TWzPe1EKIKpKyYV7U3N41j/mRxyP1d8Wh+b2YZdsgj9aGjqYPjms3Wt X+TCC5D7y28fpe+ODTgrE1bHet/xrkgdGY86/1jSp+5XVO1H/3U6rd/jyaE1mc0w67K1BgbTGzNY+v2B +s2B+s+sJoxm59hByaL07oL043HaaqY6+ouaMc+opf sMxTp5btueiH/2brm/79GUsZH1gkhH182Fa8R+wS05PT96y++7ufUrV+ffcb7Wm2Pww6h3Txm5f792Ww 1Gp2X6v9ZQEdK+f62rPc/aoKf0UWfapD83i/Hq05jKy209RqTBPzOl+07htQiaHQq96dQi7+SDQU4u0o /plEGcGPvks+dLsM6dAs+TQmBK4QzHLcp3+rlz/Xes nbjc0UNGa3Scq5D1h200+tl2/UevlGrRPlC+V3/K3tjr+6Uk0Hp2IhMS1+0bNMD2pKdjsQF3izmjuZ9/ stqs1xCNcYvyKNQlwcjk4L0JyKclA0Dii10nm8djd+PeSsRejM8HWq9l3LCm/G/mDtdz+09o5y+DP4VQ W/qtgfrL4/bMlO9pEYeT4Znu/ayT3M4Wk44psmfDV4 zZl9b6UMM0B8jVC9nqcf52g8lK975bSdiEBJd/e7q/gNVch829426y7mWi4snxDOq7bFT7qzxtxP7tE6 nXi/i8P7tlpqnSKk32jq/u1HdicoN+D63602Jf+qb/ommb39919Trwjp09XUaSj8IpBycp709E6E7w/C +541jus6fv9OW15/x/fVDCHo6D++P/iUt3S/R2pav/ JrQ7mh/PpzS7f/bsF2qgaLb79vL4Xdd4u/eUe6Dxl0O244kJ+d613+Ckoqf5KLiH+U3+6mobhBzb3Izm ja08agveZt47ooxR7yLmW04ak6K8D0g55l9CpwEn+J6r7644ff5YuT6h1kyGMoG1ae/IjiDshhj1Pbwz c6JsIRsN0i+bKy6MBlVw07a8b4mvCj39y6y0/pj1Ps MA9ll6zwK6u3F9rqrjLHQScnkIeq6emkc081ddd8mLlT7/ai4NNjRhZB5Q5bDlYf1NQXt21iqG6rwvql KF+7lZLi5zmoyqX68N1+9B1cGNuF9Naoy9H+m181+mqoS53Hpr+a/H/xY9cd8bhp90l4yf+Lza/ea5Qv vE1vbrfo0guZ6/4r2PbRAFu2eu5n7ti8pg3r7De0d2 r+K2Fi8iaYg1lmJe16t22/hg0Np19hc247lh2+0hvaW7hoof/Z/Mr71+ZXvx/p+ilXzubmV/oGbKfhvt eG8t1/lT+3+QY17f5nyHDz+JXigPiV5/ne/f3WEK/ErxTT/PurbSv//jvhNU5vEMm2wiO4+/1ka3e+39 c8FiF6Pk2t2wgcOtYR7o1vg47sY63n/eJXardfvtH6 Xc9p/X6/0md6giW37Jv+1bB+2rlQEdF24/Xq7Ew9H95wcl+0cee/aXUnST2A2J09kZGr5qd9j88r8riN Tqz1+fjOq/G1hy9m8gd4zgw6zgUlGZatzuer0g3wqUQh70HzVr03Zztt0589/hh5lrP86ntBylcvUxu5 V+r9Bn7dZz41+2wmo4i0gse5K408fpb11ji+v/mV5l ZN+3Gfkh1ImqDvS/jh61Ic2Wza2XqignihY1019Z/1bv8gQ110QIgUgG1sEpq5cl40/ldZs7/35Bm0z/ eoydNkf+Uelx5+NZqe5+FXv/dqUXpjzQd4i0S+42IK8c63hmyn7brLN/8M0hk33z4D/MY68dUxxeuF6x FX/o5sChJlBSP/oWa2rQO2oaio7sa2cyQBHq04gk/r jfxZfvuH7h83J3Pm55ro/Ua1i3K3gbSjFqh9QZmsjb2zeo+z3+9U+X6/Q+X7/V2pqt4rCI6DDFIdJ+UL 5aoOc39rj1Q57tjs+fgNheOft21u+0u9nf3Jad/JqPZ9QKb26fifGWjXJ8/Rc369R/VM/E0j80ELyJ/m V+61oc2uzoSki/zO04Vcs5Qzt8y5a+aM8rspN2ETvE Pe7+QE5oh7Mtl8+aM3rgF48DOPoK/zK/fJza+1WnUmVP1B8zKQ43AL/rg72ahc+W7HRIvrm588M4+369 kK/MtJ99Ng+3P3U4suqJ2U5rVc22e4b9fyQheAo/811npoL0g65I048y2OqaNej12+7gOdc6H+jvKO3w /WW79wPH4G3Ch8wqIvm063rZ95i8tGF8okmofxytjF PW7oCflJma78mbAf0Mi8rypUev0KO0sI0t/j7un2yqbIOi75saz0Cd0k4CB2+ZX/OnPox44wK1BipSNZ RLe+ou46Vi6ts96I1Qz9HJ08f/aeXt2faBjuo1g7xY/q4/BOP5NlrRBLlF/s5NT3+sAVgLs7Da+Ur1u+ +pR1oQBPmg09aq/ONcoLygvKK+qpqL+wdYX4n73Xgq Cv+LEfGE2k+4hf+fVC+bOTDdqI9mg8XGTRnilCKZ/3Kfq7lsRWPgb1Bmpid4ai9Nai73C++r79XKP+gX z6rx5r2lj7m47k1r157/Re3+fR9+26V9+3+1OpiuN7zLNB6y4L3aE57yio+z1/X/d7/h2qppgWL7hlxi zIM5nDrhvX499VM3UN+4P+hXtdeg4Nw76mw+0wtD+o rMF03+9Ilz+ZBICvMA7ZLrGGC/33+56XMwv4ut3Qb8O1Q3+t20eI6p+5U3M4RRtxA03plZz9bu/vTiI9 isn9LxqrmJ1A2997Zzc7r1S5H10fC6/6PGvY/S9w2Z3yDsf8o1ft/FXknm164F05S+nLCimmt1Vi51Os 3+/jLbMQB797+yPf/CJGG6amww4Mi47PNen+PzlyRX fSvBJ4Se10q+ZoivfpnU2vcm4KrxW65tiu+y9s/2vfgJusflu8DgdEZl/mDZqE2Qv1JM/kd6y7rX1nU1 Aw2wuQM22g16ieV7F9e/H9WjNVNcSEh84/Nb3P8/A/MD+K/t665w0q8up+/5nRQ7FQTbKC5/vHamD8qU 9Fb+VH198gLH9wSrd+TPk+z6OU/Olowy7O8gui7xkL C36PbiC9dq3dy+lgo4XIdo0L/BOwdT7AHztW4aa2+N+oN0W4OK1hsY983V7Xxffl5jhy5tPS57dd7bIT 33ko5eDI27pcy0dAgRWh/18zYx8UqLp0c/HKg5uqkUZp8610onf44DX4ypl59+nfERaAhfn8EL+q87FG kx90F/C95gm6CYpMcyLxc0EeSRcIDeGL5i6Iu/q77T LIPs/jON8+z2NvUT/VkrKxZId0D7L5lohUvTUvOT63plUltRHZ4ErOLqVHP4epqMWEIVbKmCFVtLYaYZ MXnBOioRxvLfbRBo6RgNYll3NwuWUIWuJSGkoGWVLIRIHkAaLXTTadSm/twXw6efpKi/s8b5zaRQpCyo RZiTQijUg/WVBGhYX4UD4kTULXODOPzbgZzcHVOvIM 04cTESR68mcuQS8BtRovIM2PzIwAIe9UBkgAmyX8FowJEAHkp2eGjNqCSqGIcQDqhzDEpIFDygTGOP1z GROwiZUcutcp0F7pvn9e9e7Ak7wP7gIi7/EICoN8EEUikPar7bWCHnUTdGUzjLi5azbx9Oluhq30S8+2 bvu9hBLvmo5XYqjgrvd3u94UlF2xhgN9fqm6Jc/N+4 IXU9VKYcIYaUBmo3xSPftRimvxgTTjMCyZiwaEB0VMIiRY1BLqHfjXmnhAHYcn9nWu8ck3XlV93NEBgD GWDd96O3e+GLI2NZTWO4FWKOLKtKMoxItrA8gGkWCFN7KnydK+gAHipQjnVttEDv9GiGZyV/GC90ZLcq /tS9MfQhJ7BlUUJ6N7QmY56IH9Ej8lhMScnMQQsQOX X7jDh0QMvidcbDeQ7sA1Nk5JJRNRGEKMILNKDNVm/pXJUei9LWpqEQUOui/1K1ULKYkJP+oEzyme+ApE TnSEeDHzMqHX4MCYfaUNF4m9/QxosE3onBA6oIxeQT3Vo0DpQP7VX6/gyDh0m71CdR44iTWccjArzsyW SsA0XGLJr0DYgD02/Pew9ALKIRBWaGBx7z7lZux486 VzcAPFJrtOBVVw6UOHT8VtM/GFST8jp3I62arqDJqIyFvEMMLaYjuOd4WGJLeYM4XmFZzsmVsYuZJw0F xzjTfpRjZTWvbNkwhdAmgBURLmGAlqpjKDexblVDjbqOGNUNK7I/MIGlPF1ZRMY4B4vaUsClpAF0jlrg ki6RFIEGFKJnIfCUGWQz0SDqHyNLGE6dosRbSkox2V [file] /J8WAdNL4qgg/04fMUSB9qI/lwfZDeUTYR7LV/p/YaEC65kY/Y6FTOlCH6G693fKfKOtxMf5g+zB/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 5bH+C1knvy5eq+aR/sf451G+Vhqmpa6UKeYy/mfb51H+x1/fw++e48o9gf4G4H31t6uftpyxswIgzZF9 /M6SiO+dHwJI+R2thUazCoz3+W7cyLekVdcJ9YviRS +/cw5A1bAUJFJEhIX2u+4R/SmM5GI4t+y/v39AWIdJ8iZn/1m82+ByCt53Z1m8cZ+84LT8dsq9eT+Iyq W7s7v5kE22Odm9cWgi/JLwoi0Ag7GmwzNGj28BctqoSKtrmGHqLOha2aB8GahBuneEi9Gy16Bc75zCz9 OJ2scIcR+ssr3JzViuWSTycNSzcaIj1Yiqftkvi9id 4XfOGNHQE/Y0pY20QBZojSzqEGUk0kgjt3V+0Xg+0VJPTKIRaUSEiBBRIkqkE+sFZPSHM7YcIDB6kHg4 8NTDLLEUAPtkRRMYFel3de2v2hq6UjIIrKzKYuXXbC+oETEiA2+w8UyKivWsC7yC5JCfgAEQmo2vgb42 8oYyUqCzDmDgCeLpThSrBsDtB3HQXa6iSYoCSxcRtr k6CjEes95CaZdewd13qdEnH2JHaPZydpSdQNRLZPY/YD8hcbCIf1BLf8ML+6YlmpASmhXf4MjUj2MKOz ke0BTJtOZ/s6Xf+YQGRnU03uNPTUHBdSCKFnAVTK0n4iB4yVXV2RVFoQRAeKcot4SXXlfZBgBTWdgOnx INvg8HKouCYrQ8o4itRJa/y92AdrWq4gyM9hWhLHBw cEr4Z5wHUghHZBOa7uFYAEX20TF0n+1aJX05DMEElNRmoJcsM+jWJglUq3pBJdCsIcJCpXJlFYkRE1RJ Uo00FGZmoXB7vOjY4Gew/VSoazN7cYpJHx7vVI18EaDFTT1ilmzdiiApcs0m8v++c1XJg6zuSZiL2cO3 Qj520oW6nr1j1qCmWq44wNkaAH+Nb1Sh7Nv6i3qyL9 17dZkTFX/v+Gc+9D67/0bDRUQ2Sj5kcon4YDMRz4U0kNNCf4S8DCSuOQ7nXTPr3+M69+w3XB9H2GnwG3 L41Tm6mi/qgi54wG/5z2pl55i//4t7Ij+Ban59b1tTeH4nC50VYFew9sf2hga2Idlq3yO+Ujm9wxVPCf 2o9JKNGO1F20V7qiWTTo2f1ZZqNA6L33P9buuHEm8k 1aSaJZ1Z73D4zxlJZg1d3yVOVN4H32S4wlYHLp3t8eGQRP0T60R8wyqXhz3z54P9IC4H15Y2zzoSpp8o 51O32ZfMwcY47Hhh7O/rH//Cg5zcX/+Hv/UVP69tnv0fcIWD5kJR0z0/Stu2eaT4HCwxdDN3h9znXg7M 3Fke72e5loBpuXsLGtvJOwI6acfbmAyuJ/jj5q+4j4 +ucw3+At/bu+J/tq8nldmdEqcQw3TcrUnpNHxGD6Fp3KydWSvJ03ch6t2XJo1Bt0ewkncCQdBRpvVLot 2DD2r11n4OYqBpbmyLGgaKjklnJeKAq7yvsBJS3wEgaoMa5/rm7+ALfn+5L1BsC3z037elSCPWeBoZau 7A9ma6eJt4lqOJTjgulVhDRLbriLkTyBr4HmeQMHhu ZzPBeb5N0xwZ+/W6+St+v+775Pu/2iuZI+TeBcjyRDMepCRhO/ORMe172+7aZorLOg7I1xYVifBbNcUZ 10Wfno7fi98CFqWtv86qZeE/dX+NAsYemnS+0a35v+4JdynLwx3qCwWpGe3Zp9V/wd/FvxeVuga/gd/A T0jBnElxuw1piTicVd9Jy+Ab+FD0Rc3Vs7R/wF/go7 34S40zrxNNbnY/gS/gC/gKvoLfwe/gG/mQ10FKY7tkP/RbidpEa6J/wd/Fn9eFa/Ab+I93kFodyVMwt+ R5Svpclb836K1pmy/U3216dqWah5k65iJ+06Uh2Tr4a/jrunANvo/hrKjDi0ukVH6arG2F1vjS+Xlhfl 6Yn5fV/DN1ya0zVFb5dY/Bn+Qv5Rk7kS/uTrv8VybS v7AmFt5cSvtDw+Dj++6x761vK5/0543+vKM/B3/U/Lb9+51x2Oq5Q/wN/w11StzG173H0ZVj41fGK7IK 9UA7gd450/0gO4Mo1cZthE7RXSCZKVGaVmMiMEdXCp/Kb+fRQc/1An89/OBk1fmf8AnRzs8kIKYsMz2K Qr/I3w7s8KAG+pXvYkK/esJ/pg6egaG/Dj0yto96C2 +MW4Jt6W/wF/gL/A3+Wl1M1cphtk/Ab+AL+AK+gq/eh71D9aghQ/dMYZ5dewz0Ux5RbrwT7T/wF/gb/F 1816+ea/HmsWbL03Bg3+056qvU0FQ5Vb4IK/Awc6fsusd6X/wJ/sR9Sn/2+J7Th3U/57XM11l+368L1z Avbu6AHgpuZRi4rH9Ss/PEFv27LeOiHPJcWi2Hz6f3 /Mg3LZCn7yA2hA0zNg/5SkK/ynuWvuGRPKftrl+8I9My315sc6hOUWF98GTzNIDh+lXrx0L/4Ue0/drq uoPfwTfwDfwB/gB/gj/xXP++7kr8Yd1nntkOeoK1TNpiy0JuRQsUmQ+O3SjgF5l+lXJz/epcG/gGPsbv UCYE9OM+M9hfgWaaSQ1J82ef/X2M80pWb+AL+Jifp4 Tm4EkbQ/gGvlW/yiMDUoxKpQqrscXifd4vpZ2R3gmBo8WU4npC1YC6RuaPq1/Hy4z24WKHu/uy4q72QS 5rW+b3F8gmputYogLM5GZ9oAi5r23D+rJXlVK5WJ7lX+Rh8h3rzuGslT/64Vk7gC1be/mLOdV4zsNbfY w/uR329ymgZdwiT8pnM0l6wvC84PvpU72Mi7m/upLf qp+7fpVjP/VviYf00Wsv4XfQTNr81nl0+o3V/IK8WV5P1YFitfsAyP/l9QJ/gb/F7u4mA9728+A38Bv4 Ar6Ar+Ar+K93Mo2Hq713u9nIzjh6YV3C5YweH/QMj5k2bfz2l/jtunANfgO/gS/gC/c3bF1arp95+B18 A9/AH+DY0YyXZjkHPrYR48n3ogLs8V/gd706OKLpgG /gC/gCvoJf/dmDZuoafAPfwB/gD/NpiSIwC7q7eZ/gb/B38V2/eq7Bx/dV9Get/HGp4Vz4CHxijj+PPu DxMTmneXhMXYM/wK/0wpiR3MH7Y/yF+2zcZxe/135fe+91sGf2B2qCmkV0M7F+pV3BL/uGQr/SjvZCv1 VtWjy4LzFxLlGs9Sw/fYG/wN/nA32enUcB4Ho5trlu axi/liMx9lfpRO6VL/NV2K+bESu2Fp0o6meggm/h+xq+ry3wN/ehh2OD5gwunHjXl1Ew4Dt7Be3+L+xX SdcDsa6qh7Ht2O/wJ/hoL+lCAfkUpj0zrQ1r7HnH+5XCfqWwX+ePiqaeS5OehI/QC5f593mC/ybGb4zh XpJ8ysks+Z1V5R2qM/FliBlhNHhJ1baZ9dY6EiN4wz 5Q8R0m38LmWY6PL5/UH3tI5mmO7hK7HeC6eu0Y0U3b78N7D8t19e8O0r11e9A1Y+3dpU/wekymhS6Pc8 oxC/4LZ73USynihpL1Lw4lRT421ePB9JkX66O+1dN+seK7no0+md6fQ1PRP+9G7Ta3LjJ19i2QuaQuHo J/6JON64kD0Av5VTnpqW9Lyfi0B9qvx+fHb2I/mNfg L/AX+Ee8BbtuT25x0Yp6UHjBN5Te/W8P+2W2WfkV3DvKlqbpJv17bn46KFt0lqD+1WG/6rBfddivOuxX HfarDvtVh/1bf46AHo/dlL603Z859I+ySPL4Gi58t4W+v4uBj+8r+L4ywJ/gT/AX+Xw2ouou/2/Xsm/0 iQ7Fu4Bcbu77Zz8BCnTsits38vZnLyHWd8XrU51rZ8 9+pDLddCi77Ra4q3m/UUfCKoz3eYe0/z2TliyPjC+0/E70M7k7fu0+T15agoNv/sjhP1h87/7COUPTs3 pbUHY2qlQO4IZH3L18XJuGePmDJZB6/+LxJTYSEQuWQA4wGmMr+pfSn14i67mJ8yGrcbb+6DZFtXaTG8 2AX/Guxh06v7nuo43SailJR/zyd/rjJ3P4HA2n9M+S X/6UbgK+4D7lT+iq8CtkU/gGvuH+5U/pNvA+oN2O2Aw8K/wNftkn+rl1CU5o53tkF47N+9W5Bl/BD3+K v/8of1lP/cq/XepXeQ0+vu8Y4E/wJ/gL/AX+Br/8v32W/7tQF1mlT8CWD+LHw8ZBl+qz9I0+O/gdfAPf wB/gD/BLn+yhX+X1Ah/akFugYLgO4xbUP4XBj5yvpU B9F/pz+KnlBsIZ9Jc9LN9D/Bj7nyZOXo3S8flw0H5Kbu9SnkUjvi9Vrt1N6/FG6Cf9NB716yPW0TnzWs yDqmlAc003uAy8Ve18cK88w6R64Ic/M2ayvrU7D/3dWH/2qowmRGpXWzg3hsv33Tott+a3ntd7DIkIS5 Qb5jdV2QCvO4P25A40R98873vNiiXRM+uvQb+y0K/c FmqhX/m5YeMrglV3g46ItmDb+VejsH3biPq13P3+3d5rB/6qo1GC1udOjBTOP13V7cbdT6Z25DUnReNE UF7rdgdM5t6xLQvjBAujfZs3jHSqPXBGsCuzec/bGyWdPWLjdR2/WReuwb/be13x+0v9k18EM1E8doC0 mr8509K8xd65EE5yViwgo1TEtebwLv/w8SiQD4B5+7 OPL4/NdGnr9rZCAWabQGbX3FD/OD9+f+meS610hQ+5ofe+Xheuwd/g7+LrdeEa/AZ+A1/AF/T57dj75w POX8X7+/xyk705IlifrN/iJiqc370Yqa6xjUbfr7y6j809uui1f44CjQ+Kb9rj+wa/XbgG3/wz8M68V2 WfCf0q+zDuS7o3ZG+6JPjen/Pa+9M80L18PwlYf3Ve /Ah8fCoTNERps9lr4ugOypoLk4HgsG0UZcD7nhsrfT+6eG5eErjJzIFV+oAz4e8J3Dr4G568TaRgbYQi d2ugsa2I1rN3rNS2m+fHXtHdg3ny4kwQusE0c7s647fuS6gdVhkhW89yQXUt/EchKp14ahUu0DvdfY3s +xW2EsMI/A5+Bx/rgojL91iq0+NZaO+O6ans8k6XiB RitZpOSSOJo5S4fb/eiciKouK3OexLocLp5Jk1Dm4MS1/T4cytSgdZ/gB/gj/BX+Kz9DEfgryde06P/c 29o9DzsI/V/0O/te98fe7sg+rlAw0KHdsrHDbU0N8ZddNepgpArhm93vh+Oit2UwbbDx0FDxQd062rTp H/YOwlPUQi/C6pNTEQqMrCRAPYtVs3JR7zCQlxrnTM 175/9Lbc+pHyCW40QqK3mGtETNHe16zZibSWLzvtM1/l83O8g+bYOgrJgkQv0XNdaj4bxAjft1vTrNzX 31v7Mk5L85kmN694DvtqIy62ryukb/APSvDlwjX4+tx/XOVPGfAPjvQPBr/6LaGym9dR/2D+ZuD3E/wJ /gJ/gb/BL//cyE8oaK619X6e2V2K+AcH/IOjKfgKfg cf7Q3/4LkGH+0coZ6Nelhz62EukoR2cPhqeLL0ZmkjrJ+zdJA6GojuwX+vmAO9SjxyhY+zjWJ2ZasalZ +cdBybFdCdDzPWsg07yNgrH+g65hGItwlrnZ/GqFsc8I+50A4Bb09x9N9Ohg9k2KZgWC07/pZd2qkw52 FDJ/gL/AX+Br/Gm09x73ELq2Zv/e/ftI29mWAyjTon FfzY/8Y9a/26fj2FCv4SV+ZF7Oy3R/zvV2S667zO9In5ow8P1I4D8HzX8X4n35lS4vjJjWq5moJey5jd OaxdL8CidrM/DGg3nqEp/GPE3zuuFC4h1Csyr9Iw0D65K/Mz/BWS68tDTWfCRYMBBRVZN2kE7kq+wbju 8RbpIrmwV76gU6LdP3pwtne95PaP/AV+nfceY+M+dd 67sTblNmEUIm1bLJ+e6M8T/XmiP0/26eebpkr7mvG3nTP7rokrJ+ca/An+BB/9eaI/T/Dopu45Vh7phP a7Pj0JJ8MLb0y/86rzomPVedGxOvgdfAPfwB/gD/An+BP8iC+Ax3v8mnX1q9Dt/R4a65qVh9yh4/zkCP hIUvz9Hw8Tr+CHPSfuX/isCjuXcB6loB20RT3urM9M 2K/PSwNv5Fu3Ez+bsF/Gw3p1gnwCNS+HR1dsj4Y5drUOkkVSk+Q60Re9Gh2s/gPvU/arCf/dWNfE80td 7I1xCfhrMr7i9zzgti7ym1urJ7Y2wr5ezT4ugj9Apk/0n7dM4FQ/A6tt9Vqy4Um2Ac6Cf+ZV8Ed3H/wJ /gI/6gQeSr1cm82didbGRni04UXi110a/dEM/+C5Bl /BV/A7+B18A9/AH+OX8Pq2I/wF/gJ/g1/2jRn+wXNd/RARQo7y+/cNmbh+nn7KpDKox699Ch7To850dg 4Tvbiz8hUztM82xs5jdlLw7or0wjE1/nd7NZ/l61H+xunIN490i39gQusl0i/8ZTAWgkAz7K9etV1utR RO9w/GXnLe+mB4NqwkJ3Q/cd76lR/988ilp6s6z/PW w9517Qj7rtA6qN9U9/sq9QHZ3wa7oMeQhxIr2PFbhG5+/noW8o7yuYhO7rMkoD1eTLj6DaH/Tyv/wrTy d08rf/cM/+C5Bh/fF+kuM103S9owayzoDj5Oc6CjlC/G+2B+UhTEvtEOk1IjvSxw3D9my11Whe/gd/AN oWKv5qXDw85T3XfciJ0mbzOfCoaGdu6/Y679m2re+L 5T94q85Mb+Zv2EU0xthr/X4HfwO/cFodPF2OkK+ZJ7Ls7Ba3W/6H065A/mqvMMM/ImiK3wR/GA5kDsZ/ gKfge/g2/gG/eZgtMPelwp3L/OVfELM/2DwS9/1Zpex3m2Vpi5mtI+wQn/4IR/cMI/OOEfnPAPztCvYu msAu1ttzfnaPvsW+4zcP8J/gR/gY/2oa7Uhqf5RoTi pU+uq+Do3lIsz15nI3+r/L/shl5Iqgs/tK7yd6+rszwxkG0pqD+tsF+JqQv5wtsZU+xXM/i+Js9tIi7b Yb861+Pw4QklI1Z65pgsvPf8GncygfM3Gs7Ka+Ar+O25Ac3Tt+QN7Wv6Z/wJ/gJ/gb/B38UP+5WvWSvs L2ai1f5aX55vGhe7lq1v8bJzo/A7+Aa+gY/1id4odj DBe578+Pi+yM+cXY8X5U2QwhU1KFbJ6Tz0lkLcTV7ReC/vuQZfwVfwO/gdfAPfwB/gD/An+BP8Oj+5tO b8V0lat9Sva2zPeWQ3R/bFosNcfXhxXDnCn8MceVryBa0y2UrKXXlyipU+feF8+1M44sHe3Phe9hiVwc 9De3G+cOC0OeDa+F0C03l0sxdzYxaoQ6Dhhe2Cwiij op13WoxNKMbNsuArnU/gT/AX+Rs1qxzfZ4+ZP5nL9S8gy75c/ApV8ge6AX+POp+eNvefw7Q+d4V+FfN/ ot0cFAgeD/AH+TB5NJ4uBsd50RW+taBfLcQPrln7/TXLvrFmA1/AF/ZV67LeF+4fwT2u0CfZ+tWCfrWg Ga0bVgi40FW+mgXaajlGl6f7nJrjxb0J/AZ+A1/AF/ NLjWhy0cOq0WZ7SC+6Qft67C4Y1ie1Kj/Zqcf3tWE+24b2cMzMu0VAvQm/In1PEwfqHp+3XL+KGMnl+l Mb6enlHd9H3+/j27l+XJ1HfsOfyJ3T9mh1Mhyarz1BQbzztjRa05gVidqTLba156j8egz/3ycCnXi82h 9GN91Hrg7bb+e2vc0FiJbn79urMSb1mq+Pl/T335ef 3/Q39Yq1Xmwu+3hgAZwm07inY9dObDm79Bw4l58kCm0674jTw5AwDC8tmS/uq+zt+8p2kY2M798PRm+D X/q95ahpkdbGdtE/8snsVvlVdhPwFfyyt+3L27Z1v/wqO/Srcw3+AH+JS0Yt3O/wF/gb/PIfbSn/0Zay t2+x85Rt5litGe3obxdYJ/mvNvJfbeS/2sh/tZH/ai P/1ZYB/gB/gj/BX+Al0Kk5HY/tPy6quisr08dMk/aqgI/2KtqraK+iuKz8LqnzOP2iYRj14rL9m28bD/ AX+Av8mp+31vy8e+1/d6/9/i2Od4J9ypqpluOPwixiDo+b4OblePtrGm+0B65puwc6fi/wB/ixH4z/rf 3hOoaW5Lq0M/za/26r/e+2C/dZwfTcxOsySOtYp2Ml jSsqLbmc87xHq264uU7cu2bf7L/wN/jQu8IH8qp6tFWh5DD1Eknzcl70OUmzx+xR/pQN+9WG/WrDfrXH AH+UX5UV4c38kxQpg+F0Gdruef431E4owf+weBT57Gco/DqPtEO/Otfgd/P98fY4vN4Q2rl2QoA7cu6Q 3G2v73O6D7p50x0G/mR81hsnGb01Dr2MT+Ar+Ap+5d [file] IYaJJ3jPKQWbtvLWYCtLGsOMDQZZGSbQUKAzA3b1PJ VCs5vcd/EUFDAPHWBfDtDfBLaPdQiHVVoAV2d8FSmnxZePyu1Bjg4zfmkRNyfphKF3L7p0EApD6ctMwg 1LqzFuOkkboG60QSbZa7xbklpEpat0o115DKnLTXY3KiK+UGT1URMqOZv2jp9F8ebjtZ7O4L54BOT/sx UXwkJc9xIKTuamuH3Jxs6HIxNG7+jpsXW2Dj/lfnQS T/051Kiec9vb9WkcySn0WVgt/iZRj+MRh8S7ghM1hZsrVP+v2OpM3cHfQAWshvCaH1H7henD/EyDeuKg zmh9LZt72E/+0piRn8S7hjAf//NpM51wAm9d82k//bU4v602prBYDI/sl5/+8R++//4Xf/Br27hwzmlh yy8/3Ujs46H++x9xhwy4xbJp7XvZB8gRj329q//tN9 /3hZ9sanW9VhQl6qw767jZ/Q5W21i9sl+/+fWPXz59+fzxq8+/+ObrT99+/Rh5z120+Ycfv/nyjz/7/M CwMl2dAv7lPs48/5hq94q5+eOHz19++Obzbz99+5Ux0Tjushh4f3g5XnZ04Oy4912tkhz82Jo/+OWXv/ r4h2++/PLj+6+//vTjN99/93rqr3/4/GbWT18pc+eP 337+7vWQr3/h5mocUh9+/le//vbz//75x//mtveqfd/2+y+//NhAC7ag1+eP775/ve+3H5+//rv/5uct 2/wPv/z8nd/30w+xozGn4lqOp+//9uPSn/4j4o7ejxq47eIpmoqjk+d13+a77z9+/Rtoswdzj91j++7L x9e//MJo049++VtGQ7635ul/+e4X/81/3rrE/Z9f/+ mP//pvf/7D7//l4//4Xx+//ebbVzt/+Pzp27/6+NWrI/aa78ifvQ5143/+R1v/9Jcff/rjx/h5+7m/kX u92GcfQ2/+1X+CnFnl7IxY+5Xwyu3bhPPfsrI9meU//Tw4auVKove4g/8PoO+SHnD/5rNYM8hPk4dgj7 /fbgoFNHZe4mkIAgqX0breC1+95pg9J7A4mBs0Sj/8 /l9//+c/u7y++nh9sW+//ebTrz5+/en7b79/a6y+/VeJ+W/ms0xMzmza/+7h6tVZ/+LYjd3RhcR2FOr+ 1st/+/s//udff/z5d//5+3l5i0yVc7mjz//oD/wGol2p5u3Ycl/w1z98/Nsf//P3f/5/fvfv/95pv4op bx/jskD777w2zz8+hx8//uV/vt793/70x5/e3rPP/e T2cYsH+/lan engineer//7L//Js03eKw25/0ddbab4z5Qszsj/YfKTl3+vsId1nHH6r/bTtzrYr3/2w8++fPzu// 39f/gDekE1X26cq+e7Y6uTasdQ44eF+V9//qe//Purt5y206//4Xf//vaF9xv+9e/+5z//7j/+7Xd//K 89aEWcl4/+9IevfoKeF/72T//5iTzV2d5GnAIGK/7l 9//8f/3x3/190JIhJl4B0j/ffvruF3/149fff/nyk//xoh3xP//xn6/e8y9f/bvR3642/41p5cxO+ Zs5tv/7d//n7j/bxp3/8nIc71BK3ZBzt15Z8R8jb6+Pz6/ql03z+wTfoZr64RTBxHPa+/+EXn3+4ges2 tY/63iajq92y7Qx7kc6hUP/yfPL/F0aKEIWAAV9qq8 PjPDJlSsKxKN2bmgpkVHFpEH8vdbw1Y7ZhvRdkTOwSVMIcYq0juMXwCV2MFOM1GVlmBZHiYBScC7QyyR 0cO60qbZCtGtTkJBZWBS8QaiU1IBN1IQK0ONChYjFuRDZoQC25JNUjOWGPPa3rxoOaEaiQVqJaFW1ine t0U5N3lVPtX196mAckczMxLJ5Re3KspIOnJH2XtQUp rCTuBHRfOVBcX8xkc0PxZTbbUGAAIj9cnqCoTinJIuBuLP4aqhc0N7X6mXllqnKnOQMNKRixSbsqMV6u rZtzzyftQ9ZgcIQySQKpN3YrJHDnu84YHJFtNWaIOrTtNsQtBaUhMHKjEQqeNzOkBHNpXYFwWCXmAI5N iXUqUYQeLLADXPcaSmyyAFLnvL1rjXWFz8XeMDFFX2 2JFBddR6RIJK7LPMUsONzmTeQ1KlhxB6P7PxzeP5EmZW0MI0RuZBEuHORKKPLlxhKqRE2EvdNojI5jVT cQSXDPCKjHADxtPkZ3k50jikKVTJAxCDHoLMlySCQlFGNtUYFmRUIeSZVgBKKiLLCkCT9NT2YsOITwAS CIDWN7v2YnWORwgngpqrfiZm2mtzAbNuy+PgoxIDAg h1SfYHtpT5H3gSAlK8VmN0RnAR7BzYAyRWioBCAgBXGbZVOnJ589jzZnJV5+BY8xq9RgVfbuRQIXEOSv JZNqDMIiZDX4MmYwXCFnIKHfEGAfGlW0NgNiFwPYSKQhFCK2MUb5LIOtVLArCCVmJRsxWHUiUJW9YfJs UISmZJWqVD2mZiUnHVNcBsc9ZpJtPXRqQTVkkgAEOL EtNXQqNZJkPKV0VMHnDICpQUgnXSWbNYOhEYM1IYFpYWIyGG3jYyTtTTVtWZSpLxfhYDPdQYOclqOMOB ZfYKLqGOX3ApOyKLMkVKRbGJrdZVZoYSOwWrt8BCHhFXAiOM9lVrLgQLPzHSN5OKffRUBwETFdliEUQW AwMDAwMDUyMyAwMDAwMCBuIAowMDAwMDAwNjQxIDAw HFJeVI6rTaCsSQJgPZB5TPYlNGAuTBOvjsSDJPRoBSMtISc4UTFlJPRyVMZhEIcnMGOcHKUqYRY8AHZm RUCbJX4yFbJzDSXxCGJhOQGjPQCsTHXrusZUURDkSDXpLPK4BJLjUAAuHLTdGHbiCMHfQASgMdg5JBKh XRNcON2gLuPrIAVdHME9ZBRlWARqNYSsuaYGCJRcVS A6FSR1ENQjCZYvSGYoQHcoPQAfPHPnQgV8ZFYiXIDjBL6aYiBhOLXnKZG8JcZiTEBcHKJavlHEPIUkHM FaQUF4FaEdDJHoYUPiMFecLEWpFWOvHKCiRSD2WHZ5QAPtNrWaRLkgTHSIDOwDC7WaslGlWwYVK9ubTg 6dVcArZZKXN8Ibt4WsGWSlXLQAPt9+InA6CXA4cKKpYlb2JBA4HZuuXNSMRj== ID Date Data Source [id number] 11/14/2019 01:13:58 PM EDT [facility] Name Value Range Interpretation Code Description Data Sudha rce(s) Supporting Document(s) Glucose [Mass/volume] in Capillary blood by Glucometer 119 mg/dL 70- 140 [facility] ID Date Data Source [id number] 08/23/2019 05:54:00 PM EDT [place] ([facility]) Name Value Range Interpretation Code Description Data Sudha rce(s) Supporting Document(s) Reported Physicians See Note Reported Physicians [facility] ([facility]) Note: Reported Physicians:Ordering: Harriet Duranending: Harriet Marie ID Date Data Source [id number] 08/23/2019 05:54:00 PM EDT [place] ([facility]) Name Value Range Interpretation Code Description Data Sudha rce(s) Supporting Document(s) Thyrotropin [Units/volume] in Serum or Plasma by Detec tion limit <= 0.05 mIU/L 2.296 uIU/ML Normal TSH [place] ([facility]) Note: Patients should not be tested for 72 hours post fluorescein dye angiography. A false depression of result may occur.Responsible Observer: TSH TSH 300.5500 (A) ID Date Data Source [id number] 08/23/2019 05:54:00 PM EDT [place] ([facility]) Name Value Range Interpretation Code Description Data Sudha rce(s) Supporting Document(s) Deprecated Cholesterol.in LDL/Cholestero l.in HDL [Mass ratio] in Serum or Plasma 4.3 Normal CHOL/HDL RATIO [place] ([facility] ) Note: Responsible Observer: CHOL/HDL RAT IO CHOL/HDL RATIO 300.4700 (A) Cholesterol crystals [Presence] in Stone by Infrared spectroscop y 229 MG/DL Above high normal CHOLESTEROL [place] ([facility]) Note: Responsible Observer: CHOL CHOLEST CARMENCITA 300.4350 (A) Cholesterol in HDL [Mass/volume] in Serum or Plasma ultracen trifugate 53 MG/DL Normal HDL CHOLESTEROL [place] ([facility]) Note: Responsible Observer: HDL HDL CHOL ESTEROL 300.4600 (A) Triglyceride [Mass/volume] in Serum or Plasma 107 MG/DL N ormal TRIGLYCERIDES [place] ([facility]) Note: Responsible Observer: TRIG TRIGLYC ERIDES 300.4300 (A) Cholesterol in LDL [Mass/volume] in Serum or Plasma by Direct as say 155 MG/DL Above high normal LDL CHOLESTEROL [place] ([facility]) Note: Responsible Observer: LDL LDL CHOL ESTEROL 300.4400 (A) ID Date Data Source [id number] 08/23/2019 05:54:00 PM EDT [place] ([facility]) Name Value Range Interpretation Code Description Data Sudha rce(s) Supporting Document(s) Hemoglobin A1c/Hemoglobin.total in Blood 5.1 % Normal GLYCOSYLATED HGBA1C [place] ([facility]) Note: Responsible Observer: HGB A1C GLYC OSYLATED HGBA1C 300.0800 (A) ID Date Data Source [id number] 08/23/2019 05:54:00 PM EDT [facility] ([facility]) Name Value Range Interpretation Code Description Data Sudha rce(s) Supporting Document(s) Albumin/Globulin [Mass Ratio] in Amniotic fluid 2.3 G/DL Normal ALB/GLOB RATIO [facility] ([facility]) Note: Responsible Observer: A/G RATIO AL B/GLOB RATIO 300.4100 (A) Albumin [Mass/volume] in Synovial fluid 5.0 G/DL Normal ALBUMIN [facility] ([facility]) Note: Responsible Observer: ALB ALBUMIN 300.3900 (A) Alkaline phosphatase isoenzyme [Units/volume] in Serum or Plasma 124 U/L Normal ALKALINE PHOSPHATASE [facility] ([facility]) Note: Responsible Observer: ALK PHOS ALK STEPHANI PHOSPHATASE 300.3110 (A) Alanine aminotransferase [Enzymatic activity/volume] in Seru m or Plasma 51 U/L Above high normal ALT [facility] ([facility]) Note: Responsible Observer: ALT/SGPT ALT 300.3100 (A) Bilirubin.total [Mass/volume] in Serum or Plasma 0.5 MG/DL Normal BILIRUBIN,TOTAL [facility] ([facility]) Note: Responsible Observer: TOTAL BILI T OTAL BILIRUBIN 300.2700 (A) Urea nitrogen/Creatinine [Mass Ratio] in Serum or Plasma 35 Normal BUN/CREAT RATIO [facility] ([facility]) Note: Responsible Observer: BUN/CREAT RA OPHELIA BUN/CREAT RATIO 300.0450 (A) Aspartate aminotransferase [Enzymatic activity/volume] in Serum or Plasma 28 U/L Normal AST [facility] ([facility]) Note: Responsible Observer: AST/SGOT AST 300.3050 (A) CA 9.5 MG/DL Normal CA [facility] ([facility]) Note: Responsible Observer: CA CALCIUM 300.2200 (A) BLOOD UREA NITRO 14 MG/DL Normal BLOOD UREA NITRO [facility] ([facility]) Note: Responsible Observer: BUN BLOOD UR EA NITROGEN 300.0350 (A) Chloride [Moles/volume] in Serum, Plasma or Blood 104 MEQ/L Normal CHLORIDE [facility] ([facility]) Note: Responsible Observer: CL CHLORIDE 300.0200 (A) Anion gap in Blood 15 Normal ANION GAP [facility] ([facility]) Note: Responsible Observer: ANION GAP AN ION GAP 300.0300 (A) Carbon dioxide, total [Moles/volume] in Serum or Plasma 26 MEQ/L Normal CARBON DIOXIDE [facility] ([facility]) Note: Responsible Observer: CO2 CARBON D IOXIDE 300.0250 (A) Creatine/Creatinine [Mass Ratio] in Urine 0.4 MG/DL Below low normal CREATININE [place] ([facility]) Note: Responsible Observer: CREAT CREATI NINE 300.0400 (A) Globulin [Mass/volume] in Serum by calculation 2.2 G/DL Normal GLOBULIN [place] ([facility]) Note: Responsible Observer: GLOB GLOBULI N 300.4050 (A) Glucose [Presence] in Urine 83 MG/DL Normal [facility] Note: Responsible Observer: GLU GLUCOSE 300.0500 (A) GFR > 90.0 ML/MIN GFR [facility] ([facility]) Note: Stage G1 - Normal or [...] or Blood 140 MEQ/L Normal SODIUM [facility] ([facility]) Note: Responsible Observer: NA SODIUM 3 00.0100 (A) Potassium [Mass/volume] in Blood 4.8 MEQ/L Normal POT ASSIUM [place] ([facility]) Note: Responsible Observer: K POTASSIUM 300.0150 (A) Protein [Mass/volume] in Synovial fluid 7.2 G/DL Normal TOTAL PROTEIN [place] ([facility]) Note: Responsible Observer: TP TOTAL PRO TEIN 300.3750 (A) ID Date Data Source [id number] 08/23/2019 05:54:00 PM EDT [place] ([facility]) Name Value Range Interpretation Code Description Data Sudha rce(s) Supporting Document(s) Choriogonadotropin [Units/volume] in Serum or Plasma NEGATIVE HCG RESULT,S [place] ([facility]) Note: Reference range is Negative "Extreme" early may have low levels of HCG present. If is suspected, repeat testing with a new specimen in 48-72 hoursResponsible Observer: HCG RESULT,S HCG RESULT,S 300.6001 (A) ID Date Data Source [id number] 08/23/2019 05:54:00 PM EDT [facility] ([facility]) Name Value Range Interpretation Code Description Data Sudha rce(s) Supporting Document(s) HCG QUALITATIVE SPECIMEN SERUM HCG QUALITA TIVE SPECIMEN [facility] ([facility]) Note: Responsible Observer: HCG QL SPECI MEN HCG QUALITATIVE 300.02511 (A) ID Date Data Source [id number] 08/23/2019 05:54:00 PM EDT [facility] Name Value Range Interpretation Code Description Data Sudha rce(s) Supporting Document(s) BASO # (AUTO) 0.06 3/uL Normal BASO # (AUTO) [facility] ([facility]) Note: Responsible Observer: BASO # (AUTO ) BASO # (AUTO) 100.1500 (A) BASO % (AUTO) 0.5 % Normal BASO % (AUTO) [facility] ([facility]) Note: Responsible Observer: BASO % (AUTO ) BASO % (AUTO) 100.1250 (A) EOS # (AUTO) 0.04 3/uL Normal EOS # (AUTO) [facility] ([facility] Note: Responsible Observer: EOS # (AUTO) EOS # (AUTO) 100.1450 (A) EOS % (AUTO) 0.3 % Normal EOS % (AUTO) [facility] ([facility]) Note: Responsible Observer: EOS % (AUTO) EOS % (AUTO) 100.1200 (A) GRAN # (AUTO) 8.96 3/uL Above high normal GRAN # (AUTO) [place] ([facility]) Note: Responsible Observer: GRAN # (AUTO ) GRAN #(AUTO) 100.1325 (A) Hemoglobin [Mass/volume] in Blood 13.9 G/DL Normal HE MOGLOBIN [facility] ([facility]) Note: Responsible Observer: HGB HEMOGLOB IN 100.0300 (A) GRAN % (AUTO) 69.1 % Normal GRAN % (AUTO) [facility] ([facility]) Note: Responsible Observer: GRAN % (AUTO ) GRAN % (AUTO) 100.1000 (A) Hematocrit [Volume Fraction] of Blood by Automated count 42.2 % Normal HEMATOCRIT [facility] ([facility]) Note: Responsible Observer: HCT HEMATOCR IT 100.0400 (A) IG % (AUTO) 0.5 % IG % (AUTO) [facility] ([facility]) Note: Responsible Observer: IG % (AUTO) IG % (AUTO) 100.1255 (A) IG # (AUTO) 0.1 3/uL IG # (AUTO) [facility] ([facility]) Note: Responsible Observer: IG # (AUTO) IG # (AUTO) 100.1260 (A) LYMPH % (AUTO) 24.6 % Normal LYMPH % (AUTO) [facility] ( [facility]) Note: Responsible Observer: LYMPH % (AUT O) LYMPH % (AUTO) 100.1100 (A) LYMPH # (AUTO) 3.2 k/uL Normal LYMPH # (AUTO) [facility] ( [facility]) Note: Responsible Observer: LYMPH # (AUT O) LYMPH # (AUTO) 100.1350 (A) Erythrocyte mean corpuscular hemoglobin [Entitic mass] by Automated count 29.1 PG Normal MCH [place] ([facility]) Note: Responsible Observer: MCH MCH 100 .0600 (A) Erythrocyte mean corpuscular hemoglobin concentration [Mass/volume] by Automated count 32.9 G/DL Normal MCHC [facility] ([facility]) Note: Responsible Observer: MCHC MCHC 1 00.0650 (A) Erythrocyte mean corpuscular volume [Entitic volume] by Auto mated count 88.5 FL Normal MCV [place] ([facility]) Note: Responsible Observer: MCV MCV 100 .0550 (A) MONO # (AUTO) 0.65 k/uL Normal MONO # (AUTO) [facility] ([facility]) Note: Responsible Observer: MONO # (AUTO ) MONO # (AUTO) 100.1400 (A) MPV 10.4 FL Normal MPV [facility] ([facility]) Note: Responsible Observer: MPV MPV 100 .0950 (A) MONO % (AUTO) 5.0 % Normal MONO % (AUTO) [facility] Note: Responsible Observer: MONO % (AUTO ) MONO% (AUTO) 100.1150 (A) Platelets [#/volume] in Plasma by Automated count 363 3/uL Normal PLATELET COUNT [facility] ([facility]) Note: Responsible Observer: PLT PLATELET COUNT 100.0850 (A) Erythrocytes [#/volume] in Blood by Automated count 4.77 6/uL Normal RED BLOOD COUNT [place] ([facility]) Note: Responsible Observer: RBC RED BLOO D COUNT 100.0250 (A) Erythrocyte distribution width [Ratio] by Automated count 12.5 % Normal RDW [place] ([facility]) Note: Responsible Observer: RDW RDW 100 .0700 (A) Leukocytes [#/volume] in Blood by Automated count 12.96 3/uL Above high normal WHITE BLOOD COUNT [place] ([facility]) Note: Responsible Observer: WBC WHITE BL OOD COUNT 100.0150 (A) ID Date Data Source [id number] 08/23/2019 06:24:00 PM EDT [facility] Has Patient Fasted For The Past [...] WHITE BLOOD COUNT 12.96 10^3/uL 4.00-10.50 H [facility] RED BLOOD COUNT 4.77 10^6/uL 3.90-5.20 N [facility] th HEMOGLOBIN 13.9 G/DL 11.5-15.6 N [facility] HEMATOCRIT 42.2 % 35.0-46.[address] [facility] MCV 88.5 FL 80.0-100.0 N [facility] MCH 29.1 PG 27.0-34.0 N [facility] MCHC 32.9 G/DL 32-36 N [facility] RDW 12.5 % 11.5-14.[address] [facility] PLATELET COUNT 363 10^3/uL 130-400 N [facility] MPV 10.4 FL 8.7-13.2 N [facility] GRAN % (AUTO) 69.1 % 42.0-75.0 N [facility] LYMPH % (AUTO) 24.6 % 20.0-51.0 [facility] MONO % (AUTO) 5.0 % 2.0-15.0 N [facility] EOS % (AUTO) 0.3 % 0.0-11.0 N [facility] BASO % (AUTO) 0.5 % 0.0-2.0 N [facility] IG % (AUTO) 0.5 % 1.00-5.00 [facility] IG # (AUTO) 0.1 10^3/uL <0.5 [facility] GRAN # (AUTO) 8.96 10^3/uL 1.50-6.50 [facility] LYMPH # (AUTO) 3.2 k/uL 1.0-5.0 N [facility] MONO # (AUTO) 0.65 k/uL 0.20-1.50 N [facility] EOS # (AUTO) 0.04 10^3/uL 0.00-1.10 N [facility] BASO # (AUTO) 0.06 10^3/uL 0.00-0.20 N [facility] ID Date Data Source [id number] 08/23/2019 06:36:00 PM EDT [facility] Has Patient Fasted For The Past 12 [...] Supporting Document(s) HCG QUALITATIVE SPECIMEN SERUM [employer] ID Date Data Source [id number] 08/28/2019 11:50:00 AM EDT [facility] Has Patient Fasted For The Past 12 [...] rce(s) Supporting Document(s) SODIUM 140 MEQ/L 135-[address] [facility] POTASSIUM 4.8 MEQ/L 3.5-5.[address] [facility] CHLORIDE 104 MEQ/L 94-[address] [facility] CARBON DIOXIDE 26 MEQ/L 22-[address] [facility] ANION GAP 15 5-16 N [facility] BLOOD UREA NITRO 14 MG/DL 7-25 N [facility] CREATININE 0.4 MG/DL 0.6-1.4 L [facility] GFR > 90.0 ML/MIN [facility] Stage G1 - Normal or high kidney functi on The GFR is an estimate of the Glomerular Filtration Rate. It is an aid to assess a patient's renal function. It is not a conclusive diagnosis of kidney disease. GFR normal is >=90 The MDRD GFR calculation is considered valid between the ages of 18 and 75 years only. BUN/CREAT RATIO 35 8-[address] [facility] GLUCOSE 83 MG/DL 70-100 N [facility] CA 9.5 MG/DL 8.7-10.[address] [facility] BILIRUBIN,TOTAL 0.5 MG/DL 0.1-1.3 N [facility] AST 28 U/L 5-40 N [facility] ALT 51 U/L 5-48 H [facility] ALKALINE PHOSPHATASE 124 U/L 40-140 [facility] alth TOTAL PROTEIN 7.2 G/DL 5.9-8.3 N [facility] ALBUMIN 5.0 G/DL 3.0-5.[address] [facility] GLOBULIN 2.2 G/DL 1.5-3.[address] [facility] ALB/GLOB RATIO 2.3 G/DL 1.0-2.[address] [facility] ID Date Data Source [id number] 08/23/2019 06:36:00 PM EDT [facility] Has Patient Fasted For The Past [...] Sudha rce(s) Supporting Document(s) HCG RESULT,S NEGATIVE [facility] Reference range is Negative "Extreme" early may have low levels of HCG present. If is suspected, repeat testing with a new specimen in 48-72 hours ID Date Data Source [id number] 08/28/2019 11:50:00 AM [facility] Has Patient Fasted For The Past 12 [...] Document(s) GLYCOSYLATED HGBA1C 5.1 % 4.1-6.5 N [facility] Testing delayed due to reagent backorde r. ID Date Data Source [id number] 08/28/2019 11:50:00 AM [facility] Has Patient Fasted For The Past 12 [...] Supporting Document(s) TRIGLYCERIDES 107 MG/DL 45-150 N [facility] CHOLESTEROL 229 MG/DL 125-200 [facility] LDL CHO[facility]STEROL 155 MG/DL 50-130 H [facility] HDL CHOLESTEROL 53 MG/DL 32-96 N [facility] CHOL/HDL RATIO 4.3 0-4.3 N [facility] ID Date Data Source [id number] 08/28/2019 11:50:00 AM [facility] F[facility] For The Past 12 [...] Supporting Document(s) TSH 2.296 uIU/ML 0.470-4.200 N [facility] Patients should not be tested for 71 ho urs post fluorescein dye angiography. A false depression of result may occur. ID Date Data Source [id number] 08/23/2019 02:53:27 PM EDT [facility] Name Value Range Interpretation Code Description Data Sudha rce(s) Supporting Document(s) ED Provider Note [facility] IDBMJb5sFsXMPaIa00/MMXpaTQVic8LeGUkaEUi2NQytNKPiL8KuKMU4dD9mYRJ5PVlNClKqSeInBuDz lbm [file] NpKD9SHf2LGhP9VHO1cKTeIh8XNCW6IYsMJrYgHA8GUNp= ID Date Data Source [id number] 08/18/2019 12:00:00 AM EST [facility] ([facility]) Name Value Range Interpretation Code Description Data Sudha rce(s) Supporting Document(s) Throat Swab negative Normal Throat Swab [facility] ([facility]) ID Date Data Source [id number] 08/17/2019 09:47:33 AM [facility] Name Value Range Interpretation Code Description Data Sudha rce(s) Supporting Document(s) [facility] IJYZVw7oBnEUApIfa8PcElNcKDGpGG4haat0L9P7jZYsD9HjlQZmj6crD9VgW3LxTOFxGTVSGO8QhRNb jb2 [file] +ebv/D3e33/oy5X77+/q9//uNnILgHui/XqAnqu+9//aV7vz28/L762c+++82vPvfeDAnLjirna/ 4/FmwpvztifsNkePIcKR7WWB5xw8TxKpC8XWGvl2CvFDimKPs0mDJnCXbdszTfn3SfdjdeS1Kwm7AmRu QhXBEbWbRmGlt3MHBdPuT6qFNoZdJmYLOtV1VxWHJa TlP4SqSlBFWMEK0RSADwdlOjVsQyYNR+HmCmLL5mularGIWka9RnVVbqOBxjQWJlA8D5wRdzZDJcJ2Na qP78NQFcA8YeteV0VGD2FSSmHiUnSLIswALnZGSqSOL+AvWaNN0jgvtpXCEyx4NgTBanLHT5rT1nGWyX FYJYVLaDARctIlX9a63vsiNPGFDrRVDhWN1PavKvvI rxihJsoWJfXUQ0ScLzLRYzEVQpDBF7FNXAELPoOPUtERFdVWYcA4ApsFrkKLyMPUJEGBuUHFpsJaKbc0 O6WZNrnxDPQYsZV73UISASNH6IFdRBJTPpBLF4Njn9PVBwB5WqnpHamKMhEEHSWMuvHjxxQLEhgB7ujT xnA7TgQVV9t9GzID7FA7VfLPBzVJKJUBR2j9FrNYTc ukrzrxazVaSrIVHsLUCgTBJrXH0Xgv4yxNGndoKxTUYQMPliKshxDQ8ruVagpenkC7HdtTUeTOE+PmVu JJ1psz6+JyPxCZXiKnn3YUXcSKznYCXtDHYzIERuB4ccCUZdJrXqTSOpVdMaTA8Tb2IayTGbAo9dxlNn YmoKeHJlZgogICAgIDAgICAgMjQKMDAwMDAwMDAwMC V1IMFyFSLjTKimIBNjAPm1SzA5AMGpTVVeAA2vHsGdYQZhVrswFMxqCYXeCMQumsFTRIRdZLJ3IqY8Fj PoXDYfSSWhWUocKVQzJQYiCAFhCUC7MPX7RMNbRrDqIZFhJWYvNVXfBCTsTDMmxkQAHUOiFCGeHAY7OY FhTSGsJGRsLEjaARItRRXdJCrwKHSfRRLnHQ8lCsRj ROGxZCFaYWndUHFlXLRhisEONPDyUSGsBDFpSRPqGTFeHBUpCXnwWVYbORQkVVLbOTRwYHTaTR4iRuAo YJOjUNF3ADXbOANtVMHsuaEBIYCgPMDtSRz3HQBnVLMwUGYdXPawNYOlHEZjKEE5CLCzZPKiHR6yHcHu DAOgVUN4RgRiNMDvUCXuhtIRVQSvJFOoPZH6OxLmSJ ZeAOHaDJyyYSTnERZnDVixPQAfMHVyNI1oPjUxGKSjXTZpVDkeSSUlHYLpxtWLEWDpHXVxXQCcHrBpGH YmLVCjETgfWXQfUYm4HXa9RRMtEOJgVE0nIzCgARZdJBZ7NSdeNCIuBKJmydZLJLFqWAJuYAipUQPqGT BkFSPyHJusQDCqZURsLWQ3TRCwRBDdOX9eFqRrKINb MZTtBKMnJfA2SbXuObTStPDwfRedjpk6PMrsT8f3JADtWYzaZR0vwwKnXTCfZlxwDm5ndKG1SALvZzjM Wd3Ul1FtewI5udFnQnz3RnlrOuVuBM0E ID Date Data Source [id number] 08/16/2019 10:47:15 AM EST [facility] Name Value Range Interpretation Code Description Data Sudha rce(s) Supporting Document(s) [facility] VECMTq2jAeGUDcHlf7DwTeZtELNcWJ9sath9Y6I1jFZmJ0YetBPhy0zwU1ZfE4VxXAOeNEWTTW0AwWOd jb2 [file] gyroscope technician+t1U5PY78Pb25Osn6w0Y9fI7U1/J0sKhaljHnL89/Y/oTgOxsBt9TtqGYvG+GgMlr6wG/e5J/Id5F [file] LoU90YwopcbKROkZHPnj7flbrw6hfehaX+ouhgHQzs yjcvDLoVwSFyTIJAhJAR2IS79vwrK+gXsT8LqiqMpBgafr8YwZgNvDrjmYjrLPXWW4HBhmSyyLlGRFJa EA6gpdvR2jxuYHiHpi4s49aniwTAvHTMOlzecPX+WGwHi+7bzI4BpzN1CKXfB7Pc0OFRZGSzT6nNyfLj 9TWOMAlVn9rC7akI+0SlfaLzsZzeuIGVnY/y4FGN4X Il6W0ukfvidfSeTFCxWEqoBBpo+5OD62a3ajIdHU1uKBW6yZj4chWpcYwHa+SuR0KaFQ+4nzgKbLKcjy Ip0nvqQ8LojZurJU+eTRH0sEpZ11Q+kvOxXAHzQvCxrBCwdg4+abESZQ3RtYDw+7/99A5w8rvuvikB// be653TQ/7+44f/6+PzD4/umYTcDfPR/eLTv/zzt9/+ /L9/fP/pl5+++hRYi8DnzFjNE8/6+SwpMZQbJybwjaZ76pPeP6910hsfqVUdU9cbSBxrUg2/9eiG+7// 9Tf/6wBjD60/w6cfPn/88vPPv/ul98jyc/3as026/l73n794c204/u6Xn37+64+Pj+++/wJLZ51j+eO7 od1108Lb22j6+kdFehDtk+Vo9s7m0SIO1Q4rptUm2l 9++PTlL/7ly0/f/fyrTx///NUPv/s94eheA17/7cohuQ47d+8+//LTD7/+9wZEpr3/83rTl7/++tN3H1 9++8izbe04c/v8/X+A2mL1F2k/+8MvPn/3z199//ksw05xao616/OX/8t/cXuNgn/o1fDi76y79QdJyo u///s7p91oun8wX45//vFDFsLreejLP//p3//wlz/+ /t8+/vf/+fGbr75+5e27z5++/x8vm0f4sP5/+uarz19//Ot/q+tf//7jz3/7jZ0jE7OOThiWeB2mexDl mzg0tDefC0/Diann/840//jeozBCOjj0p5g49C796jdqWk+cX/G08Z4Eoc/1D+HFMs2Bu1aTd/NRvorK/F napf151l/Vgl6End7wNxSV8HF6rG8lP4N1g8+3///V /+MnI4emvIa522zxSpFyj10Tv2wfh7k7Mwm/V8DKD4QiH93QjPd7k08LkaJfiRs9kxPERCMSY7w6//6T //4eMvv/7O802l/9saGsl7oQJZM//069VFfe91caf5ZD/13ccf/vSfv//L//3b//gvkj9V+y42r65JF6 ePUz+6f/ru+49/+x+vvP/hz3/4tvVKKE4ZsZtPG/dP P/s0l032VO/3Ep1h8e2NM3u+jT/lPSuoEP03uE0s02c1FiSY1Pzt/jhXR/jgc9r6eb8+fvv//I7pd1l0 6yqs8Yj/66+//skTy+PVAV/zwf/8y7/+/Y/uPt/hH3//x9/+x9sX3m/6L3/3L45178/+4bd/+tsUbkV8 9+c///GLX/Z1ghuGia/+8+++UJbJjFo8/P+j/+H3v/ s///YY417c8sU/zv7ll481bReqd/iQI02mfAz+/1//89V4/u2L77/92d++1OZwy/e3v/zla9T8/gv25m du+v+/9VmObRfCCx1Jo/0/fv9RP/477t3u8dI5fMDc+6fbr/UaTT8+ka2nNKFxa4/3xrz3D04A004638 /wiBG5GWegzO86+vLLb3/1fucdFxIEt0Q+r/n/AH4X DAnZPH3af2LqLQSxLtSaKZ0xrsqjDRGjYU7ejcc0S5PmmOqyZKjDTOXvTa5lmHUjQH1XZGU5JVqtWMIa WGWmH2TflZ4hG65yjZOkCgCuRKVJNZ1YdoU0EUW4LGK1MQGsHkFgZWFlZE17SNGvOJLMNu4twlUpAkmY JwIfZF9whxi3Q3U2sSJoP097eAftthCoIT3Bt0BzsZ JvQJ1ReUVauZOqIBWwTGLsN2dvk0FrWQevPGOYNr6nowBiJmiGYaKoQK5wego6F4I1aNdfqyKfBIBPPU wpWqaqSO1mfOpzwnvpX5UkiROhRBWtB5AlYRZpq73JAEFfCOtUQsNtHnRoNnLlLUM3CsgwYvOuOQJiUM PmZYPuAP8CpXRuOGYtAZSMAHgnPufjAZShyB1qoSIX c9ZgVKVEN52EDGvlM7OKHX2WPMJoINfzFzQ9VddxX2I0MbdgS2TaTA1TT1RrAIGcKCGIDMGfouQuKR1P lkNalZ6tMFgJNACIQYiGNGsrUjX5i30unyCXBNVwXVSgEIavLZIgTBMfUHLgYJVkKEKsTFApMVOvCB5B C3ZyTMKjPHFYMWN2y2HuDQZrlkqjfrucCh7sgjZjXb o+GsbsOHHtw5VuYZavX7Y1dTRwZ9VpD9JvEM4XnXJsNZglACRmYBXrIZAuJ045uhShME6+JY5vg5WiEv bgKSFHJONlLMNoKZWfAJQ1ChBaSDCrAAIkVONbTqV9RzAdHmTXQHLtSKN4YhMlOQNmRYXhNNUoSEadSI VuKCx6DImfWTBgYWEpLH7wPsEqVXXnJnZ6JiigKFNb OVSbbiEGXDZuWMGvGYSiEIZ0GQFwMGSoOQbqWQIaBTFvSLZ3UJStVLJeDW1rYbZqTIEsOOFrYagbIJCj QWYqfvWVJKOqFADqOTV0QcImJEQzNDYmHQczUFLmAYPlNfk3KPXeBOBwBC4hFcKaJEBnPMC4QKewCRDn MDAgbiAKMDAwMDAwMDUyMyAwMDAwMCBuIAowMDAwMD NeIzWbDLJlZQLlME2jGuUnHVJrIQS9SKDrUGDwVYQuunPDDRXxEBPxCKe1NHOhYEOkEWZuZCwcXHZjJY NwIMH4RPDbSFSfTA5uYaHhJKQeCTNrIDTuBRYlMPCgnbCPYRQqIKScGNE2FFEvZBFeVGLnJPrsNTKmNZ QgPqe1SCAvFUQdNV5lIdXgDFUmVMJ0MYPyNWOiYEVx icIWFGOfTZT1TAi2HMRhDCBjGGNgQDxsKEBmUMIiPsW7ELJhTZEuMO1mTjFdOKExXVN8OtNaHRPqQWBi nwPJMGZaVXSoNXG7HvMgLYUbRCOgJAiuDOXuGIQfDIDlBUD7EBT3VJEcKbTfRLbnNAKKIFvVQ2IvtoGq YaBHN3peJf6hIlNdENOOZ9Sbf1DqRVWuJENSWr2+PxB7HBI4uDJuPoq4OrF1MQmsYMUMPu== ID Date Data Source [id number] 08/16/2019 10:07:51 AM [facility] Name Value Range Interpretation Code Description Data Sudha rce(s) Supporting Document(s) Choriogonadotropin ( test) [Presence] in Urine [facility] NEGATIVE: either no HCG or too low to de tect, <20 mU/mL Specific gravity of Urine by Refractometry 1.027 1.003-1.030 [facility] ID Date Data Source [id number] 08/16/2019 10:18:40 AM [facility] Name Value Range Interpretation Code Description Data Sudha rce(s) Supporting Document(s) Color of Urine [facility] Clarity of Urine [facility] Specific gravity of Urine by Refractometry automated 1.028 1.003 -1.030 [facility] pH of Urine by Automated test strip 8.0 5.0-8.0 [facility] Protein [Mass/volume] in Urine by Automated test strip Neg [facility] Glucose [Mass/volume] in Urine by Automated test strip Neg [facility] Ketones [Mass/volume] in Urine by Automated test strip Neg [facility] Bilirubin.total [Presence] in Urine by Automated test strip Negative [facility] Hemoglobin [Presence] in Urine by Automated test strip Neg ative [facility] Leukocyte esterase [Presence] in Urine by Automated test strip Negative [facility] Nitrite [Presence] in Urine by Automated test strip Negati [facility] Leukocytes [#/area] in Urine sediment by Automated count 2 /HPF 0 -5 [facility] Erythrocytes [#/area] in Urine sediment by Automated count 2 /HPF 0-3 [facility] Epithelial cells.squamous [#/area] in Urine sediment by Auto mated count 3 /HPF None [facility] Mucus [#/area] in Urine sediment by Microscopy low power field None [facility] ID Date Data Source [id number] 08/16/2019 03:42:15 AM [facility] Name Value Range Interpretation Code Description Data Sudha rce(s) Supporting Document(s) ED Provider Note [facility] DMHRMv2qGwDVKpYh07/LZBytFKXal7TrDCunNOk3NKnaGXZxK7NgRXR7jC4yIQB4XGeGDwOdNgHzCeIr lbm [file] 4EANvOq8oBqxh0u/JOSÉ+lsr9o9lCpiaKgCNLzTnHmtyESYnDwUxUZA9j6Yt1+SttsuFCbqOyK/SGWAWY [file] INVESTIGATOR OPERATOR/3qZjIvnCIKcpUKNELPa7kEGqeNgvc0Fr7nWrsxa [file] XS2NCN5vhfJ4TV2MdXDlVAVcGEWqiZLjQQq0A84nbTIxEPkeZG9GTCO+Dulce+An9NFCYqYWRaRXHjFrKs FKKYVwLyZ4FpD5VYq2UeI2KtGF96rLefrjXtURvxBL7HED2xJYQbDBRLKO1OnPMsgX8nztO9OCIoVLMB YcNwV72hhRRnIBDyCAM5YWHfQu3TBCGmB0MkuaKlsS cgrfYzKNRxWLWTYE5NGHovpvLoaPMhwTkrUZ72iIcqWR0FGk3WDnEeQQ9tzy0CiSZeWd6EVCG1ST8VIN OeKLBnNNJnQGW1PBWnWwLeVPdgBCTaHUAbDKU0ANKmNNRwDG0THaXaFWJqEeI2IYTwGGCmICObfz4AZH SuZXT2LVH0MLEiPFGmECJkIXljIMYlMJSzEKG6QPGz PTWsCC7COvHaDQJmHFM5LYGqCKQjJCMers9NRQLnZETbQpq7TdMoSFDwYRClCNyuRRTyJNO2DVl9IBSj HPSdXF3LTvHjXPKdYXPsEFTtHGWbXSVfbd8KZMGnQSMkAKSsADKbWZWtUKLbEUlsBHQaRFZ1FZP6ZCOp RQJlIO8TVrHsIISjAKOzIvToZQDtBBJpjp6PPSKvVE VbOrIhECGwSUShENWzXMlyGTEiNQF9CPG1XLPgLRClOK0CSnXiAUYwJJO0TiBkYFHdILSgxk0NWMEtJM IhKPD8XwIqTGWxJEMwGNrlNWBdPUV2EHxdFCCdIXIeVL7YXlSzSMWlSvO1BvdlOIMgJCXppc5WMQWxZC UiXHz7UZRvVVLvKNZoYBfaEDEdGXY6GMVjQJNfBWYa RZ4ZQgLwKAHsChTdLnzcCRUoYPZidu6GJMWfWGEmGnh8BXObGWPrTAFrAXtcGLDbTUS2LClwSPLjHNSp MI2ACmBtELBjDvBcZnziFMHkKIXdgr2XECRwYLZaDRNwIiZkNIIhLUGcRDybGQHaWUJ5VPlfAFRbXJUd BB3EJwAyCOPdKsV0SBfgQRRsTGDuhp4BJXUcXEPqLj YsXKOxDCPbKRBpRGrpEHGyKAQ0ZDU6DIAcYLEpPQ4DOiBjYMTkXFX7PZHpPKZeBDVrdk8PTREzBGD8CY W0VmRpIBPiVVCgYZlkGXXhAXEbVlP5LKGaPASbVQ5GSsJsSNVjJST7MsLhGHVtKBVlvb7HLAQnBJI3Bz KfCFUsIGIlBFWvJEseEEBmJPT7ZMR1KVQvYRAmFN4C XsBeQZNsYXd0EMWcUEErOQAgax0SGGBcMSW8WqD2SuIgOIKcBMLeEGhgKFScRQH4FWe6XFXsWCGhWO3J WzVcPJArUSv3TyKsJEKpILMmva5OTLCcPBA5GUZtMnTvZLVdLGHmRCpfDOQlSNO4YbB9QTIwAEAbER2M WoSiHMIpWwA8KRGaTTSqPUOdey4OXRFbHPQ5GZedIH PvOBUwRHOgEEvbKIHpNCMdMAW3XFCiVNUzLN4RObOwWCMlMnPnJqErMRAhJWBjwd0TEBInLNG0FICxAb ClOMUlJJNdDThuFOSfLYXzCJR5WSRcUQQcJR5GVcTwXJBkIlY2XJjbGAGrTAYcgb9LLKGmHHI9UwwnWR DrJUFuKJOxGBkqRWEuNPMtLwF4KCObQWYnXF6TQiSb FSUcEqX8CsCvIVVeTFEafa2ASUNyPUZ8JLb2PBQiTLZeNCUcJXmrKWFlFOS5AUF8RUGhTOLyAR3ICwOn SUXhNzJlIeEeBLOsFGFrsd1QTYJbSWK4TIT0RZHeMLNlPEIcTWzpBEGfXJJ6ZAprNMUiSEUfQA5BLnUp CFYaWqN5INxuGMNoNBUzqo0QUIQxBOS3RCpvFoDxAP VkWDIeULtpLXVzMPZ9QOQ8CWHvVDUzPE5CQyLgFSrdYAZRWda5QOxhA5i2YXK8BN4ZL8Qjq8SpCHvdZZ LPNHewVO6yatAwUSEuSv7MF3lGXiw5MGDbPkJeMNQmYlveTrD2JDX5DQc6MRHlMKV5CmY4YW3yNRIiXK HqLPJmQMNkRKV2FcnnVND1OTOsJEZ0PSoaGCtxVuUx OT6KHm3DQeP3PZH5aIHkJi8KTmTqSHJMUrJiXN4GGOh= ID Date Data Source [id number] 08/15/2019 01:07:00 PM [facility] Name Value Range Interpretation Code Description Data Sudha rce(s) Supporting Document(s) HCG,QUALITATIVE NEGATIVE [facility] Reference range is Negative To ensure best sensitivity, first morning void is recommended. Dilute, low specific gravity urine may give a falsely negative result. If is suspected, repeat testing with a new specimen 48-72 hours later. 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 that had been 1 [...] Normal Affect Skin Skin exam: Dry, Intact, [place] and Warm Course Vital Signs Vital signs: [...] rce(s) Supporting Document(s) ID Date Data Source [id number] 08/15/2019 12:29:22 PM EST [facility] Name Value Range Interpretation Code Description Data Sudha rce(s) Supporting Document(s) EKG WO [facility] UXFRPj6nUvSQJrZ6hhE4IQroKXWnb3JlVOg3TC3TxONiJ6ZtaMGir5wcDTQiNSMsCrZeTPZvYYQhKkvl vdW [file] /aPl1yNl4XUyIzJBFaew2HxyBywnDaLV/pMyQ3PxyBNa2fJVF+ppEemikZ6Poo5Qd7NE25v8ZrYNw+INVESTIGATOR OPERATOR [file] layton+rA5WlPmUmsOqkQ0T8O8MFLEwzZgysoAfakkCWZUXODhhxsDzrgkKIJMVAFmfzfOhrjaWWQDZZJgr uhYxnqnXFHUXFQedunBoynaCQVUQTUkilkZccjfC5t vG0Uttq+Sd3wSylnYlJsYx+Ggr5In/5hdR1BPfRVX4QkcxmfGlCeggbORreJ0dXHADoUWESOYnihC34P VqkJc6CDBpmeQMTQeqO89ePWXKMGSQZklU+4utHWIV7W1gc9pSJXFHsxqsWT84r7qfVMKIO7YfRGFCPw yqG63XYnfGVOBkIT1HCQG25l2jgMEWVgVOJPXGglrF 90FDdeFLBQsOqoskGac1u+rCKIBCZUUIKB1D37/GxuiIFvhMQWGXFULWFfyaC7ocukfylButrtP7guJ3 Arnoldo/yANO/69Yv/PKEVYZyJwnn0R7c/wx2X5JJ/APXI/tTpLNLjj7O/4cjrKKKKzPKCiiigAooooAKKKK ACiiigAooooAKKKKACiiigAooooAKKKKACiiigAooo oAKKKKACiiigAooooAKKKKACiiigD//SDUtvffFruABsAC4CWiCoAR7zlx3CDJBdJDKpEpuLFfy0P4Y3 oKRjK7BzS9AgA39lEn6JaMXosGZ8ZO4HuZd5XUFlCyyvvXUULSTpGAUkYGXcG7RtKGO6Cj4+DQpzdHJl AU8PPxfbzDXdJ7JiVGN4rq3wIyqDnlc5jXBtZVFJg4 CPFO5RFhRC5a2gabelfRBct5+67nHGQISFZCoVVX2RdJbCENq5SLDEmDFvAhYRCLyBjjKGMmDKNGY6Xm N7NWA3pnl6Q8rSxZfCj5Qvzok5qkhJ6Yg6QMUXOtEZon6O1fKhiXJTd5lYT2U44f0Za6YtbnlAAuwbPk 6GCjI4ncpuHjaaqK/kZhVJw1GMr9F94liDx1ybmt3m +7wdTcFH9kpl5tgRZF5BYI7cg6AnHTGuTNufydBlYyyAIcZ0GUUki5JeGBq2LI1Cuw0lhMCydxb+/wBN SQzQImVjOI2UqyZfTJDEjMSnXSJCEeAsHQSDcGWrNIWEBUICWH8CxqEmTTQDYfVkBWUGPxeiR1NzVCDa cij+/hWJFWsSMoYlXB8YgaMbHSWRlPCrTCDFMxLsUP SIeFQzGQEIPXTGEN8OsaLgZACSNnIbCJWVRatvC7RpUQLpq03ZWNHyXVN0IaFtNAXlXLXgUkZrQzvuCH 6Xv4VIRURuIAY2LqGuKXGgRAQoGgCeDbfwZJ0+VTfjteLdHbkDOlJ9AIAam7AjIOfpNRH4OH5aCXugso VrQrvULnBlOFEyi6HuKVcjMJJ3KP1nTMpagcVtJhvS MmHyAIJck6RjHZe3AQ7YuDWxM3kGPXHsD0y7JABrMZ2MWcEyBJJiRr7uE1Mrr4QsJILhFBSoNJ4lkcNy ZDLnDNFmXVLwFDK7S0YlRgr7FfB3CDQ3DXNDYXSWMsOcY0V2UXeTYROOWazYZnySSjQ6ZZQ8WbOrMANC UBLGVVOjNfJWA3V3KYlZXa6rOM8VpEk6YYHbKeurkW PXUSRyIRNdKWOjN4DfPZv9Na4LOmT7nnSytR1IkTokYCPE//2ZztJgVhLYdyPMX5FJ40NlbFOfBVHFNC RldSSUXP3UfezV7DVcYLwZCYGwyQSSSTrGMuvBsOQIbgS3EM9ToKrQSFYKjpIlNONRaCRAheqEuB2VZT 7fz8CaRQFoKSpbzyKvIsbRSpzvOCPICnAuBeBPBjWv JTVcZWMfEKIuYeC2KvFnFc7CTWFsXRJhRZYeBhAvTIRlFMJdVKwaDMZmZOMnFLT8GDTfMHByCV7TQjXd DXBaSDBtRKUiTKSxHYIgkb0UFLDaPVMkBUG1ZCYpHANuKMRyEBmmLFUoIHFnLtD3SEUdZCIfTW5PQyHu OVLrEOE1AKCyZGRfLNVlou6QDPHiYMEuHLW4TSFfVR XcLWSeUZuqRKVvHPUgIdF8BORnWSGyGN9ZYgKaSTDcSQN8NqGdKOHpAYYhqs9SOZXyOPWyXTTfZSG8GD GhEUPoILrzTJDgRDCsQFZcXHH6KTM4BUHCUmFaORZbUAPqRSVyThW2ScMgDt0RVCDwORRhBRAcXGC1RX PuMMNqSQbrGOPdACLmHAH3PKG0ZNF9YEZLOnDcILKf GISoGCOdDsG5ElKfOo5SBYAjGPBlCYUjEsL7TTOsAEZgXLqoQQXaZZWkQJTfXFI6LYC6ALJBLsYrUVJv HPD9PjWgTMHvUFZayw0XZGLrMPT4MiK5FBTjKQSnGPUhZGplEFEpIvGqDam8XPLgSUPmYZ8MDhQwHHQq WII0EDZmPFKeUUZcgl8ChURnhVouqs7NUMztY0f2QC AaPn7In626IFYqGVFXH8shSy3yKMrdNXLXC6zSTfxXWqhTVpT8FII4HsThGNINBYBQGNWvDoQKL1P5VK uRWx04YNf3NiA0KMTmWiOKNMm1KOJ8AROfOQPgEokXRWM5CxS+XSA+Cy2Ad5SnigV9euYoFZryYQJ7JY ICNpBzPN3UFFp0daOjNKliFSGPKwDnDTaaSQGGGon0 D7VssyBpQgLsCl7ksCNlBRUzVj6IlcCxYPL7JVTvDd2NIFp5WLi3KgU8YNEmVkTKOZi4JHQ6QAQkUVUc NekACQD9YcP+TAW2A1PjHiz7IsT5SMH1WZKLJCJOVkGdB8L0XHhFXVMGCt7bH1VkQIVbHaEhPLqfO8eZ ZPWRoF1qHoDkVbQ3Mi8GZlG9BJJ2vREvWd9NBqByOJxbWGhzFXOHYq== ID Date Data Source [id number] 08/15/2019 04:16:00 PM EST [facility] Name Value Range Interpretation Code Description Data Sudha rce(s) Supporting Document(s) WHITE BLOOD COUNT 12.51 10^3/uL 4.00-10.50 H [facility] RED BLOOD COUNT 5.05 10^6/uL 3.90-5.20 [facility] H[facility]IN 14.7 G/DL 11.5-15.6 N [facility] HEMATOCRIT 45.5 % 35.0-46.0 N [facility] MCV 90.1 FL 80.0-100.0 N [facility] MCH 29.1 PG 27.0-34.0 N [facility] MCHC 32.3 G/DL 32-36 N [facility] RDW 12.7 % 11.5-14.5 N [facility] PLATELET COUNT 400 10^3/uL 130-400 N [facility] MPV 10.2 FL 8.7-13.2 N [facility] GRAN % (AUTO) 65.7 % 42.0-75.0 N [facility] LYMPH % (AUTO) 28.1 % 20.0-51.0 N [facility] MONO % (AUTO) 4.9 % 2.0-15.0 N [facility] EOS % (AUTO) 0.5 % 0.0-11.0 N [facility] BASO % (AUTO) 0.4 % 0.0-2.0 N [facility] IG % (AUTO) 0.4 % 1.00-5.00 [facility] IG # (AUTO) 0.1 10^3/uL <0.5 [facility] GRAN # (AUTO) 8.22 10^3/uL 1.50-6.50 H [facility] LYMPH # (AUTO) 3.5 k/uL 1.0-5.0 N [facility] MONO # (AUTO) 0.61 k/uL 0.20-1.50 N [facility] EOS # (AUTO) 0.06 10^3/uL 0.00-1.10 N [facility] BASO # (AUTO) 0.05 10^3/uL 0.00-0.20 N [facility] ID Date Data Source [id number] 08/15/2019 04:28:00 PM EST [facility] Name Value Range Interpretation Code Description Data Sudha rce(s) Supporting Document(s) SODIUM 141 MEQ/L 135-145 N [facility] POTASSIUM 4.3 MEQ/L 3.5-5.3 N [facility] CHLORIDE 103 MEQ/L 94-110 N [facility] CARBON DIOXIDE 28 MEQ/L 22-33 N [facility] ANION GAP 14 5-16 N [facility] BLOOD UREA NITRO 15 MG/DL 7-25 N [facility] CREATININE 0.5 MG/DL 0.6-1.4 L [facility] GFR > 90.0 ML/MIN [facility] Stage G1 - Normal or high kidney functi on The GFR is an estimate of the Glomerular Filtration Rate. It is an aid to assess a patient's renal function. It is not a conclusive diagnosis of kidney disease. GFR normal is >=90 The MDRD GFR calculation is considered valid between the ages of 18 and 75 years only. BUN/CREAT RATIO 30 8-36 N [facility] GLUCOSE 87 MG/DL 70-100 N [facility] CA 9.6 MG/DL 8.7-10.5 N [facility] ID Date Data Source [id number] 08/15/2019 11:50:[address] [facility] Name Value Range Interpretation Code Description Data Sudha rce(s) Supporting Document(s) COLOR,UR YELLOW YELLOW [facility] APPEARANCE,UR SLIGHTLY CLOUDY CLEAR A [facility] PH,UR 7.0 5.0-8.0 [facility] SPECIFIC GRAVITY,UR 1.015 1.002-1.035 N [facility] PROTEIN,UR NEGATIVE MG/DL NEGATIVE [facility] GLUCOSE, UR NEGATIVE MG/DL NEGATIVE [facility] KETONES,UR NEGATIVE MG/DL NEGATIVE [facility] OCCULT BLOOD,UR MODERATE NEGATIVE A [facility] NITRATE,UR NEGATIVE NEGATIVE [facility] LEUKOCYTE ESTERASE ,UR NEGATIVE NEGATIVE [facility] BILIRUBIN,UR NEGATIVE NEGATIVE [facility] UROBILINOGEN,UR 0.2 EU MG/DL NEG-0-1.0 [facility] Date Data Source [id number] 08/17/2019 08:33:00 AM EST [place]: 08/17/19 0833 INTERFACED REPORT Name: Amy Carranza Age/Sex: 24/F Location: [facility] Acct: [id number] Unit: [id number] Status: DEP MARINA Room/Bed: Re08/15/19 Disch: Raisa Dr: Cristóbal Yusuf DO Specimen #: [id number] Ordered : 08/15/1908/04/1212 Collected : 08/15/1908/04/1136 By: [...] rce(s) Supporting Document(s) ID Date Data Source [id number] 08/15/2019 10:59:00 [place] [address] Patient Name: Amy Carranza Exam Date: 08/15/19 [...] lobe pulmonary nodule. Professional interpretation performed by [facility] [employer] [facility] . End of diagnostic report: [id number] Signed: Taurus Pepe MD 08/15/19 1120 Interpreted by: Taurus PepeTranscribed by: Taurus Pepe Name Value Range Interpretation Code Description Data Sudha rce(s) Supporting Document(s) ID Date Data Source [id number] 06/27/2019 10:30:00 AM EST JOE ([facility]) Name Value Range Interpretation Code Description Data [facility] rce(s) Supporting Document(s) Reported Physicians See Note Reported Physicians JOE ([facility]) Note: Reported Physicians:Ordering: Anay Reyes IAttending: Anay Rincon ID Date Data Source [id number] 06/27/2019 10:30:00 AM EST [facility] ([facility]) Name Value Range Interpretation Code Description Data [facility](s) Supporting Document(s) See Note Chris See Note Aries DIAZ (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 Specimen #: [id number] Ordered : 06/27/19 Collected : 06/27/19 By: OFFICE Received: 06/27/19 By: GMACDOUGAL Source: URINE CC Specimen Description: Comments: Cholo Traore Has been collected UCC Procedure Result COLONY COUNT Final COLONY COUNT LESS THAN 1,000 CFU/ML URINE CULTURE Final NO GROWTH 18 HOURS NO SIGNIFICANT GROWTH 42 HOURS URINE CULTURE Preliminary (Corrected) NO GROWTH 18 HOURS END OF REPORT ID Date Data Source [id number] 06/27/2019 10:30:00 AM EST Skin Scan (Gengo) Name Value Range Interpretation Code Description Data Sudha rce(s) Supporting Document(s) URINE EPITH MANY PER/LPF URINE EPITH JOE (Gengo) Note: Responsible Observer: UR EPITH URI NE EPITH 200.1155 (A) BILIRUBIN,UR NEGATIVE BILIRUBIN,UR JOE (Iterable) Note: Responsible Observer: UR BILI UR B ILIRUBIN 200.0750 (A) BACTERIA,UR RARE PER_HPF BACTERIA,UR JOE (Gengo) Note: Responsible Observer: UR BACT UR B ACTERIA 200.1755 (A) COLOR,UR YELLOW COLOR,UR JOE ([facility]) Note: Responsible Observer: UR COLOR UR COLOR 200.0200 (A) APPEARANCE,UR SL CLOUDY APPEARANCE,UR JOE ([facility]) Note: Responsible Observer: UR APPEAR UR APPEARANCE 200.0250 (A) LEUKOCYTE ESTERASE ,UR NEGATIVE LEUKOCYTE EST ERASE ,UR JOE ([facility]) Note: Responsible Observer: UR DORA EDDIE ASE UR LEUKOCYTE ESTERASE 200.0725 (A) GLUCOSE, UR NEGATIVE MG/DL GLUCOSE, UR JOE ([facility]) Note: Responsible Observer: UR GLU UR GL UCOSE 200.0500 (A) KETONES,UR NEGATIVE MG/DL KETONES,UR JOE ([facility]) Note: Responsible Observer: UR KETO UR K ETONES 200.0600 (A) NITRATE,UR NEGATIVE NITRATE,UR JOE ([facility]) Note: Responsible Observer: UR NIT UR NI TRATE 200.0700 (A) MUCUS,UR RARE PER_HPF MUCUS,UR JOE ([facility]) Note: Responsible Observer: UR MUCUS UR MUCUS 200.2300 (A) OCCULT BLOOD,UR LARGE Abnormal (applies to non- numeric results) OCCULT BLOOD,UR JOE ([facility]) Note: Responsible Observer: UR OCLT BLD UR OCCULT BLOOD 200.0650 (A) PH,UR 5.0 PH,UR JOE ([facility]) Note: Responsible Observer: UR PH UR PH 200.0350 (A) SPECIFIC GRAVITY,UR 1.017 Normal SPECIFIC GRAVITY,UR JOE ([facility]) Note: Responsible Observer: SG URINE SPE CIFIC GRAVITY,UR 200.0410 (A) RBC,UR 1-2 PER_HPF RBC,UR JOE ([facility]) Note: Responsible Observer: UR RBC UR RB C 200.1005 (A) PROTEIN,UR NEGATIVE MG/DL PROTEIN,UR JOE ([facility]) Note: Responsible Observer: UR PROT UR P ROTEIN 200.0450 (A) UROBILINOGEN,UR 0.2-1.0 EU_MG/DL UROBILINOGEN,UR G REENWAY ([facility]) Note: Responsible Observer: UR URO UR UR OBILINOGEN 200.0900 (A) WBC,UR 5-9 PER_HPF Abnormal (applies to non-numeric re sults) WBC,UR JOE ([facility]) Note: Responsible Observer: UR WBC UR WB C 200.1055 (A) ID Date Data Source [id number] 06/27/2019 08:00:00 PM [facility] [employer] [facility] Run: 06/29/19 0816 INTERFACED REPORT Name: Amy Carranza Age/Sex: 24/F Location: [facility] Acct: [id number] Unit: [id number] Status: REG REF Room/Bed: Re06/27/19 Disch: Att Dr: Anay Rincon NP Specimen #: [id number] Ordered : 06/27/19 Collected : 06/27/19 By: [...] Sudha rce(s) Supporting Document(s) COLOR,UR YELLOW YELLOW [facility] APPEARANCE,UR SL CLOUDY CLEAR [facility] PH,UR 5.0 5.0-8.0 [facility] SPECIFIC GRAVITY,UR 1.017 1.002-1.035 N [facility] PROTEIN,UR NEGATIVE MG/DL NEGATIVE [facility] GLUCOSE, UR NEGATIVE MG/DL NEGATIVE [facility] KETONES,UR NEGATIVE MG/DL NEGATIVE [facility] OCCULT BLOOD,UR LARGE NEGATIVE A [facility] NITRATE,UR NEGATIVE NEGATIVE [facility] LEUKOCYTE ESTERASE ,UR NEGATIVE NEGATIVE [facility] BILIRUBIN,UR NEGATIVE NEGATIVE [facility] UROBILINOGEN,UR 0.2-1.0 EU MG/DL NEG-0-1.0 [facility] RBC,UR 1-2 PER HPF 0-2 [facility] WBC,UR 5-9 PER HPF <5 A [facility] URINE EPITH MANY PER/LPF FEW-MOD [facility] BACTERIA,UR RARE PER HPF NONE [facility] MUCUS,UR RARE PER HPF NONE SEEN [facility] ID Date Data Source [id number] 06/29/2019 08:16:00 AM EST Bilna N Run: 06/29/19 0816 INTERFACED REPORT Name: Amy Carranza Age/Sex: 24/F Location: [facility] Acct: [id number] Unit: [id number] Status: REG REF Room/Bed: Re06/27/19 Disch: Att Dr: Anay Rincon NP Specimen #: [id number] Ordered : 06/27/19 Collected : 06/27/19 By: [...] Value Range Interpretation Code Description Data Sudha [facility]) Supporting Document(s) ID Date Data Source [id number] 06/27/2019 10:30:00 AM [employer] (Gengo) Name Value Range Interpretation Code Description Data Sudha [facility]) Supporting Document(s) Reported Physicians See Note Reported Physicians PUNTA GORDA (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) Name Value Range Interpretation Code Description Data Sudha rce(s) Supporting Document(s) URINE EPITH MANY PER/LPF URINE EPITH JOE ([facility]) Note: Responsible Observer: UR EPITH URI NE EPITH 200.1155 (A) APPEARANCE,UR SL CLOUDY APPEARANCE,UR JOE ([facility]) Note: Responsible Observer: UR APPEAR UR APPEARANCE 200.0250 (A) BACTERIA,UR RARE PER_HPF BACTERIA,UR JOE ([facility]) Note: Responsible Observer: UR BACT UR B ACTERIA 200.1755 (A) BILIRUBIN,UR NEGATIVE BILIRUBIN,UR JOE ([facility]) Note: Responsible Observer: UR BILI UR B ILIRUBIN 200.0750 (A) COLOR,UR YELLOW COLOR,UR JOE ([facility]) Note: Responsible Observer: UR COLOR UR COLOR 200.0200 (A) KETONES,UR NEGATIVE MG/DL KETONES,UR JOE ([facility]) Note: Responsible Observer: UR KETO UR K ETONES 200.0600 (A) GLUCOSE, UR NEGATIVE MG/DL GLUCOSE, UR JOE ([facility]) Note: Responsible Observer: UR GLU UR GL UCOSE 200.0500 (A) LEUKOCYTE ESTERASE ,UR NEGATIVE LEUKOCYTE EST ERASE ,UR JOE ([facility]) Note: Responsible Observer: UR DORA EDDIE ASE UR LEUKOCYTE ESTERASE 200.0725 (A) MUCUS,UR RARE PER_HPF MUCUS,UR JOE ([facility]) Note: Responsible Observer: UR MUCUS UR MUCUS 200.2300 (A) OCCULT BLOOD,UR LARGE Abnormal (applies to non- numeric results) OCCULT BLOOD,UR JOE ([facility]) Note: Responsible Observer: UR OCLT BLD UR OCCULT BLOOD 200.0650 (A) NITRATE,UR NEGATIVE NITRATE,UR JOE ([facility]) Note: Responsible Observer: UR NIT UR NI TRATE 200.0700 (A) PH,UR 5.0 PH,UR JOE [facility] Note: Responsible Observer: UR PH UR PH 200.0350 (A) PROTEIN,UR NEGATIVE MG/DL PROTEIN,UR JOE ([facility]) Note: Responsible Observer: UR PROT UR P ROTEIN 200.0450 (A) RBC,UR 1-2 PER_HPF RBC,UR JOE ([facility]) Note: Responsible Observer: UR RBC UR RB C 200.1005 (A) SPECIFIC GRAVITY,UR 1.017 Normal SPECIFIC GRAVITY,UR JOE ([facility]) Note: Responsible Observer: SG URINE SPE CIFIC GRAVITY,UR 200.0410 (A) UROBILINOGEN,UR 0.2-1.0 EU_MG/DL UROBILINOGEN,UR G REENWAY ([facility]) Note: Responsible Observer: UR URO UR UR OBILINOGEN 200.0900 (A) WBC,UR 5-9 PER_HPF Abnormal (applies to non-numeric re sults) WBC,UR JOE ([facility]) Note: Responsible Observer: UR WBC UR WB C 200.1055 (A) ID Date Data Source [id number] 06/02/2019 06:22:16 PM EST [facility] [place] [facility] Name Value Range Interpretation Code Description Data Sudha rce(s) Supporting Document(s) HIV RAPID SCR PRELIM (NEG) Lab [place] [facility] [facility] Final Result Procedure Social History Code Duration Value Status Description Data Source(s ) Smoking 07/18/2020 12:00:00 AM EST Never smoked tobacco (findi ng) completed Never smoked tobacco (finding) JOE ([facility]) Alcohol intake 05/17/2020 12:00:00 AM EST Ex-drinker (finding) comp leted Ex- drinker (finding) [facility] Tobacco use and exposure 05/17/2020 12:00:00 AM EST Never used co mpleted Never used [facility] Smoking 05/17/2020 12:00:00 AM EST Never smoker completed Never s moker [facility] Alcohol intake 05/09/2020 12:00:00 AM EST Ex-drinker (finding) comp leted Ex- drinker (finding) [facility] Alcohol intake 05/08/2020 12:00:00 AM EST Ex-drinker (finding) comp leted Ex- drinker (finding) [facility] Smoking 05/01/2020 12:00:00 AM EST Never [...] Ex-drinker (finding) comp leted Ex- drinker (finding) [facility] Alcohol intake 04/14/2020 12:00:00 AM EDT Ex-drinker (finding) comp leted Ex- drinker (finding) [facility] Alcohol intake 04/06/2020 12:00:00 AM EDT Ex-drinker (finding) comp leted Ex- drinker (finding) [facility] Alcohol intake 04/02/2020 12:00:00 AM EDT Ex-drinker (finding) comp leted Ex- drinker (finding) [facility] Alcohol intake 03/29/2020 12:00:00 AM EDT Lifetime non-drinker (finding) completed Lifetime non-drinker (finding) [facility] Alcohol intake 03/28/2020 12:00:00 AM EDT Lifetime non-drinker (finding) completed Lifetime non-drinker (finding) [facility] Alcohol intake 03/23/2020 12:00:00 AM EDT Lifetime non-drinker (finding) completed Lifetime non-drinker (finding) [facility] Alcohol intake 03/21/2020 12:00:00 AM EDT Lifetime non-drinker (finding) completed Lifetime non-drinker (finding) [facility] Smoking 03/12/2020 12:00:00 AM EDT Never smoked tobacco (findi ng) completed Never smoked tobacco (finding) JOE ([facility]) Smoking 02/21/2020 12:00:00 AM EDT Never smoked tobacco (findi ng) completed Never smoked tobacco (finding) JOE ([facility]) Alcohol intake 02/18/2020 12:00:00 AM EDT Lifetime non-drinker (finding) completed Lifetime non-drinker (finding) [facility] Alcohol intake 02/18/2020 12:00:00 AM EDT Lifetime non-drinker (finding) completed Lifetime non-drinker (finding) [facility] Alcohol intake 02/17/2020 12:00:00 AM EDT Lifetime non-drinker (finding) completed Lifetime non-drinker (finding) [facility] Alcohol intake 02/16/2020 12:00:00 AM EDT Lifetime non-drinker (finding) completed Lifetime non-drinker (finding) [facility] Alcohol intake 02/16/2020 12:00:00 AM EDT Lifetime non-drinker (finding) completed Lifetime non-drinker (finding) [facility] Alcohol intake 02/09/2020 12:00:00 AM EDT Lifetime non-drinker (finding) completed Lifetime non-drinker (finding) [facility] Alcohol intake 02/08/2020 12:00:00 AM EDT Lifetime non-drinker (finding) completed Lifetime non-drinker (finding) [facility] Alcohol intake 02/07/2020 12:00:00 AM EDT Lifetime non-drinker (finding) completed Lifetime non-drinker (finding) [facility] 02/03/2020 09:52:34 PM EDT Unknown if Ever Smoked comp leted Unknown if Ever Smoked [facility] Smoking 02/03/2020 09:52:00 PM EDT Tobacco smoki ng consumption unknown (finding) completed Tobacco smoking consumption unknown (caleb hernandez) [facility] Alcohol intake 02/02/2020 12:00:00 AM EDT Lifetime non-drinker (finding) completed Lifetime non-drinker (finding) [facility] Alcohol intake 01/30/2020 12:00:00 AM EDT Lifetime non-drinker (finding) completed Lifetime non-drinker (finding) [facility] Alcohol intake 01/29/2020 12:00:00 AM EDT Lifetime non-drinker (finding) completed Lifetime non-drinker (finding) [facility] Alcohol intake 01/29/2020 12:00:00 AM EDT Lifetime non-drinker (finding) completed Lifetime non-drinker (finding) [facility] Alcohol intake 01/28/2020 12:00:00 AM EDT Lifetime non-drinker (finding) completed Lifetime non-drinker (finding) [facility] Alcohol intake 01/27/2020 12:00:00 AM EDT Lifetime non-drinker (finding) completed Lifetime non-drinker (finding) [facility] Smoking 01/26/2020 12:00:00 AM EDT Never smoked tobacco (findi ng) completed Never smoked tobacco (finding) JOE ([facility]) Smoking 01/26/2020 12:00:00 AM EDT Never smoked tobacco (findi ng) completed Never smoked tobacco (finding) JOE ([facility]) Alcohol intake 01/24/2020 12:00:00 AM EDT Lifetime non-drinker (finding) completed Lifetime non-drinker (finding) [facility] 12/20/2019 06:02:00 PM EDT Unknown if Ever Smoked comp leted Unknown if Ever Smoked [facility] Smoking 12/20/2019 06:02:00 PM EDT Tobacco smoki ng consumption unknown (finding) completed Tobacco smoking consumption unknown (fin ding) [facility] Alcohol intake 12/18/2019 12:00:00 AM EDT Lifetime non-drinker (finding) completed Lifetime non-drinker (finding) [facility] Smoking 12/18/2019 12:00:00 AM EDT Never smoker completed Never s [facility] Alcohol intake 11/14/2019 12:00:00 AM EDT Lifetime non-drinker (finding) completed Lifetime non-drinker (finding) [facility] Smoking 11/14/2019 12:00:00 AM EDT Never smoker completed Never s [facility] Assertion 09/08/2019 12:00:00 AM EDT Finding [...] Lifetime non-drinker (finding) completed Lifetime non-drinker (finding) [facility] Smoking 08/16/2019 12:00:00 AM EST Never smoker completed Never s [facility] 08/15/2019 06:49:00 PM EST Never Smoker completed Never S moker [facility] Smoking 08/15/2019 06:49:00 PM EST Never smoked tobacco (findi ng) completed Never smoked tobacco (finding) [facility] 08/15/2019 11:06:00 AM EST Never Smoker completed Never S moker [facility] Smoking 08/15/2019 11:06:00 AM EST Never smoked tobacco (findi ng) completed Never smoked tobacco (finding) [facility] Alcohol intake 08/15/2019 12:00:00 AM EST Lifetime non-drinker (finding) completed Lifetime non-drinker (finding) [facility] Smoking 08/15/2019 12:00:00 AM EST Never smoker completed Never s [facility] Alcohol intake 08/15/2019 12:00:00 AM EST Lifetime non-drinker (finding) completed Lifetime non-drinker (finding) [facility] Smoking 06/10/2019 12:00:00 AM EST Never smoker completed Never s moker 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[facility]) Vital Signs ID Date Data Source UNK Name Value Range Interpretation Code Description Data Source(s) PhenX - pain, abdominal - type and intensity protocol 3 3 PUNTA GORDA ([facility]) no vitals taking by pt at this time Oxygen saturation in Arterial blood by Pulse oximetry 99 % 99 % PUNTA GORDA ([facility]) PhenX - pain, abdominal - type and intensity protocol 0 0 PUN[place] GORDA ([facility]) Body weight 261.2 [lb_av] 261.2 [lb_av] GREENWA Y ([facility]) Body temperature 97.1 [degF] 97.1 [degF] [facility] AY ([facility]) Respiratory rate 18 /min 18 /min PUNTA GORDA ([facility]) Heart rate rhythm 1 1 CYCLONE Y ([facility]) Heart rate 100 /min 100 /min PUN[place] GORDA ([facility]) Diastolic blood pressure 60 mm[Hg] 60 mm[Hg] PUN[place] GORDA ([facility]) Systolic blood pressure 122 mm[Hg] 122 mm[Hg] [facility] Inhaled oxygen concentration 21 % 21 % P[place] GORDA ([facility]) Inhaled oxygen flow rate 0 L/min 0 L/min P[place] GORDA ([facility]) Oxygen saturation in Arterial blood by Pulse oximetry 98 % 98 % P[place] GORDA ([facility]) PhenX - pain, abdominal - type and intensity protocol 3 3 JOE ([facility]) Body weight 251.8 [lb_av] 251.8 [lb_av] GREENWA Y ([facility]) Body temperature 97.6 [degF] 97.6 [degF] [place] AY ([facility]) Respiratory rate 20 /min 20 /min JOE ([facility]) Heart rate rhythm 1 1 Y ([facility]) Heart rate 96 /min 96 /min JOE ([facility]) Diastolic blood pressure 76 mm[Hg] 76 mm[Hg] JOE ([facility]) Systolic blood pressure 122 mm[Hg] 122 mm[Hg] [facility] Inhaled oxygen concentration 21 % 21 % JOE ([facility]) Inhaled oxygen flow rate 0 L/min 0 L/min PUNTA GORDA ([facility]) Oxygen saturation in Arterial blood by Pulse oximetry 98 % 98 % P[place]DA ([facility]) PhenX - pain, abdominal - type and intensity protocol 0 0 PUN[place] GORDA ([facility]) Body weight 247 [lb_av] 247 [lb_av] JOE ([facility]) Body temperature 98.9 [degF] 98.9 [degF] [place] AY ([facility]) Respiratory rate 20 /min 20 /min JOE ([facility]) Heart rate rhythm 1 1 Y ([facility]) Heart rate 74 /min 74 /min JOE ([facility]) Diastolic blood pressure 80 mm[Hg] 80 mm[Hg] JOE ([facility]) Systolic blood pressure 102 mm[Hg] 102 mm[Hg] G REENWAY ([facility]) Inhaled oxygen concentration 21 % 21 % JOE ([facility]) Inhaled oxygen flow rate 0 L/min 0 L/min PUN[place] GORDA ([facility]) Oxygen saturation in Arterial blood by Pulse oximetry 97 % 97 % P[place]ORDA ([facility]) PhenX - pain, abdominal - type and intensity protocol 3 3 JOE ([facility]) Body weight 250.8 [lb_av] 250.8 [lb_av] GREENWA Y ([facility]) Body temperature 95.6 [degF] 95.6 [degF] [facility] AY ([facility]) Respiratory rate 17 /min 17 /min JOE ([facility]) Heart rate 93 /min 93 /min JOE ([facility]) Diastolic blood pressure 80 mm[Hg] 80 mm[Hg] JOE ([facility]) Systolic blood pressure 134 mm[Hg] 134 mm[Hg] [facility]) Oxygen saturation in Arterial blood by Pulse oximetry 98 % 98 % PUN[place] GORDA ([facility]) PhenX - pain, abdominal - type and intensity protocol 0 0 JOE ([facility]) Body surface area Derived from formula 2.08 m2 2.08 m2 JOE ([facility]) Body mass index (BMI) [Ratio] 47.2 kg/m2 47.2 k g/m2 JOE ([facility]) Body weight 250 [lb_av] 250 [lb_av] JOE ([facility]) Body height 61 [in_i] 61 [in_i] JOE ([facility]) Body temperature 100 [degF] 100 [degF] JOE ([facility]) Respiratory rate 16 /min 16 /min JOE ([facility]) Heart rate 70 /min 70 /min JOE ([facility]) Heart rate rhythm 1 1 GREEN[place] Y ([facility]) Diastolic blood pressure 78 mm[Hg] 78 mm[Hg] JOE ([facility]) Systolic blood pressure 120 mm[Hg] 120 mm[Hg] G [facility] ([facility]) Diastolic blood pressure 84 mm[Hg] 84 mm[Hg] JOE ([facility]) Systolic blood pressure 138 mm[Hg] 138 mm[Hg] G [facility] ([facility]) Inhaled oxygen concentration 21 % 21 % JOE ([facility]) Inhaled oxygen flow rate 0 L/min 0 L/min JOE ([facility]) Oxygen saturation in Arterial blood by Pulse oximetry 99 % 99 % [place] ([facility]) PhenX - pain, abdominal - type and intensity protocol 3 3 JOE ([facility]) Body weight 252 [lb_av] 252 [lb_av] JOE ([facility]) Body temperature 98.5 [degF] 98.5 [degF] [facility] AY ([facility]) Respiratory rate 20 /min 20 /min JOE ([facility]) Heart rate 90 /min 90 /min JOE ([facility]) Heart rate rhythm 1 1 Y ([facility]) Diastolic blood pressure 104 mm[Hg] 104 mm[Hg] JOE ([facility]) Systolic blood pressure 140 mm[Hg] 140 mm[Hg] G REENWAY ([facility]) Inhaled oxygen concentration 21 % 21 % JOE ([facility]) Inhaled oxygen flow rate 0 L/min 0 L/min P[place]DA ([facility]) Oxygen saturation in Arterial blood by Pulse oximetry 98 % 98 % [place] ([facility]) PhenX - pain, abdominal - type and intensity protocol 0 0 P[place] ([facility]) Body weight 250 [lb_av] 250 [lb_av] JOE ([facility]) Body temperature 97.2 [degF] 97.2 [degF] [place] AY ([facility]) Respiratory rate 18 /min 18 /min JOE ([facility]) Heart rate 95 /min 95 /min JOE ([facility]) Heart rate rhythm 1 1 Y ([facility]) Diastolic blood pressure 66 mm[Hg] 66 mm[Hg] JOE ([facility]) Systolic blood pressure 118 mm[Hg] 118 mm[Hg] [facility] Inhaled oxygen concentration 21 % 21 % [place] ([facility]) Inhaled oxygen flow rate 0 L/min 0 L/min [place] ([facility]) Oxygen saturation in Arterial blood by Pulse oximetry 98 % 98 % [place] ([facility]) PhenX - pain, abdominal - type and intensity protocol 0 0 P[place] ([facility]) Body temperature 97.9 [degF] 97.9 [degF] [facility] AY ([facility]) Respiratory rate 16 /min 16 /min JOE ([facility]) Heart rate 96 /min 96 /min PUNTA GORDA [facility] Diastolic blood pressure 87 mm[Hg] 87 mm[Hg] JOE ([facility]) Systolic blood pressure 125 mm[Hg] 125 mm[Hg] G REENWAY ([facility]) Inhaled oxygen concentration 21 % 21 % [place] ([facility]) Lap 1 Inhaled oxygen flow rate 0 L/min 0 L/min [place] ([facility]) Lap 1 Oxygen saturation in Arterial blood by Pulse oximetry 97 % 97 % [place] ([facility]) Lap 1 Heart rate 125 /min 125 /min P[place] GORDA ([facility]) Lap 1 Inhaled oxygen concentration 21 % 21 % [place] ([facility]) Resting Inhaled oxygen flow rate 0 L/min 0 L/min [place] ([facility]) Resting Oxygen saturation in Arterial blood by Pulse oximetry 98 % 98 % [place] ([facility]) Resting Heart rate 117 /min 117 /min PUN[place] GORDA ([facility]) Resting Inhaled oxygen concentration 21 % 21 % [place] ([facility]) Inhaled oxygen flow rate 0 L/min 0 L/min [place] ([facility]) Oxygen saturation in Arterial blood by Pulse oximetry 98 % 98 % [place] ([facility]) PhenX - pain, abdominal - type and intensity protocol 0 0 [place] ([facility]) Body temperature 100.6 [degF] 100.6 [degF] GREE [facility] ([facility]) Respiratory rate 16 /min 16 /min [place] ([facility]) Heart rate 120 /min 120 /min [place] ([facility]) Diastolic blood pressure 70 mm[Hg] 70 mm[Hg] [place] ([facility]) Systolic blood pressure 116 mm[Hg] 116 mm[Hg] [facility]) Diastolic blood pressure 63 mm[Hg] 63 mm[Hg] [facility] Systolic blood pressure 122 mm[Hg] 122 mm[Hg] O [facility] Oxygen saturation in Arterial blood by Pulse oximetry 98 % 98 % [facility] Res[facility] rate 18 /min 18 /min [facility] Heart rate 90 /min 90 /min [facility] Body temperature 98.4 [degF] 98.4 [degF] [facility] Body weight 100.00 kg 100.00 kg [facility] Body height 170.18 cm 170.18 cm [facility] Inhaled oxygen concentration 21 % 21 % [place] ([facility]) Inhaled oxygen flow rate 0 L/min 0 L/min [place] ([facility]) Oxygen saturation in Arterial blood by Pulse oximetry 97 % 97 % [place] ([facility]) PhenX - pain, abdominal - type and intensity protocol 3 3 [place] ([facility]) Body temperature 98.6 [degF] 98.6 [degF] [place] AY ([facility]) Respiratory rate 20 /min 20 /min JOE ([facility]) Heart rate 133 /min 133 /min [place] ([facility]) Diastolic blood pressure 80 mm[Hg] 80 mm[Hg] JO[place] ([facility]) Systolic blood pressure 122 mm[Hg] 122 mm[Hg] [facility]) Diastolic blood pressure 87 mm[Hg] 87 mm[Hg] [facility] Systolic blood pressure 131 mm[Hg] 131 mm[Hg] [facility] Oxygen saturation in Arterial blood by Pulse oximetry 100 % 100 % [facility] Respiratory rate 16 /min 16 /min [facility] Heart [facility] 87 /min 87 /min [facility] Body temperature 97.6 [degF] 97.6 [degF] [facility] Body weight 100.00 kg 100.00 kg [facility] Body height 152.4 cm 152.4 cm [facility] PhenX - pain, abdominal - type and intensity protocol 0 0 [place] ([facility]) Oxygen saturation in Arterial blood by Pulse oximetry 96 % 96 % [place] ([facility]) PhenX - pain, abdominal - type and intensity protocol 0 0 [place] ([facility]) Body temperature 99.9 [degF] 99.9 [degF] CYCLONEW AY ([facility]) Respiratory rate 18 /min 18 /min [place] ([facility]) Heart rate 112 /min 112 /min [place] ([facility]) Diastolic blood pressure 60 mm[Hg] 60 mm[Hg] [place] ([facility]) Systolic blood pressure 122 mm[Hg] 122 mm[Hg] [facility] Inhaled oxygen concentration 21 % 21 % [place] ([facility]) Inhaled oxygen flow rate 0 L/min 0 L/min [place] ([facility]) Oxygen saturation in Arterial blood by Pulse oximetry 98 % 98 % [place] ([facility]) PhenX - pain, abdominal - type and intensity protocol 0 0 [place] ([facility]) Body temperature 98 [degF] 98 [degF] [place] ([facility]) Respiratory rate 20 /min 20 /min [facility] Heart rate 99 /min 99 /min [facility] Heart rate 101 /min 101 /min [facility] Heart rate 101 /min 101 /min JO[facility] Diastolic blood pressure 84 mm[Hg] 84 mm[Hg] [facility] Systolic blood pressure 130 mm[Hg] 130 mm[Hg] G [place] [facility] Diastolic blood pressure 77 mm[Hg] 77 mm[Hg] [facility] Systolic blood pressure 120 mm[Hg] 120 mm[Hg] G [place] [facility] Diastolic blood pressure 85 mm[Hg] 85 mm[Hg] [facility] Systolic blood pressure 127 mm[Hg] 127 mm[Hg] [facility] Inhaled oxygen concentration 21 % 21 % JOE ([facility]) 1 min post walking 02 Inhaled oxygen flow rate 0 L/min 0 L/min JEO ([facility]) 1 min post walking 02 Oxygen saturation in Arterial blood by Pulse oximetry 97 % 97 % JOE ([facility]) 1 min post walking 02 Heart rate 113 /min 113 /min [facility] 1 min post walking 02 Inhaled oxygen concentration 21 % 21 % [facility] walking o2 start Inhaled oxygen flow rate 0 L/min 0 L/min JO[place] ([facility]) walking o2 start Oxygen saturation in Arterial blood by Pulse oximetry 94 % 94 % [facility] walking o2 start Heart rate 113 /min 113 /min JOE [facility] walking o2 start Heart rate 85 /min 85 /min JOE [facility] orthostatic BP Heart rate 91 /min 91 /min JO[facility] orthostatic BP Heart rate 84 /min 84 /min JO[place] [facility] orthostatic BP Diastolic blood pressure 79 mm[Hg] 79 mm[Hg] [facility] orthostatic BP Systolic blood pressure 134 mm[Hg] 134 mm[Hg] G [place] [facility] orthostatic BP Diastolic blood pressure 59 mm[Hg] 59 mm[Hg] JOE ([facility]) orthostatic BP Systolic blood pressure 128 mm[Hg] 128 mm[Hg] [facility]) orthostatic BP Diastolic blood pressure 77 mm[Hg] 77 mm[Hg] [place] ([facility]) orthostatic BP Systolic blood pressure 135 mm[Hg] 135 mm[Hg] [facility] ([facility]) orthostatic BP Inhaled oxygen concentration 21 % 21 % [place] ([facility]) BG-92 Inhaled oxygen flow rate 0 L/min 0 L/min [place] ([facility]) BG-92 Oxygen saturation in Arterial blood by Pulse oximetry 98 % 98 % [place] ([facility]) BG-92 PhenX - pain, abdominal - type and intensity protocol 10 10 [place] ([facility]) BG-92 Respiratory rate 16 /min 16 /min [place] ([facility]) BG-92 Heart rate rhythm 1 1 ([facility]) BG-92 Heart rate 83 /min 83 /min [place] ([facility]) BG-92 Diastolic blood pressure 76 mm[Hg] 76 mm[Hg] [place] ([facility]) BG-92 Systolic blood pressure 116 mm[Hg] 116 mm[Hg] [facility]) BG-92 Heart rate rhythm 1 1 ([facility]) supine at 9:10 am pt not c/o dizziness p upils smaller in size sitiing at 9/15am pupils dilated larger in size pt c/o dizzinessstanding at 920 am. pupils still dilated and pt swaying and C/O dizziness Diastolic blood pressure 80 mm[Hg] 80 mm[Hg] [place] ([facility]) supine at 9:10 am pt not c/o dizziness p upils smaller in size sitiing at 9/15am pupils dilated larger in size pt c/o dizzinessstanding at 920 am. pupils still dilated and pt swaying and C/O dizziness Systolic blood pressure 120 mm[Hg] 120 mm[Hg] [facility]) supine at 9:10 am pt not c/o dizziness p upils smaller in size sitiing at 9/15am pupils dilated larger in size pt c/o dizzinessstanding at 920 am. pupils still dilated and pt swaying and C/O dizziness Diastolic blood pressure 86 mm[Hg] 86 mm[Hg] [place] [facility] supine at 9:10 am pt not c/o dizziness p upils smaller in size sitiing at 9/15am pupils dilated larger in size pt c/o dizzinessstanding at 920 am. pupils still dilated and pt swaying and C/O dizziness Systolic blood pressure 142 mm[Hg] 142 mm[Hg] [facility] ([facility]) supine at 9:10 am pt not c/o dizziness p upils smaller in size sitiing at 9/15am pupils dilated larger in size pt c/o dizzinessstanding at 920 am. pupils still dilated and pt swaying and C/O dizziness Diastolic blood pressure 88 mm[Hg] 88 mm[Hg] [place] ([facility]) supine at 9:10 am pt not c/o dizziness p upils smaller in size sitiing at 9/15am pupils dilated larger in size pt c/o dizzinessstanding at 920 am. pupils still dilated and pt swaying and C/O dizziness Systolic blood pressure 140 mm[Hg] 140 mm[Hg] [facility] ([facility]) supine at 9:10 am pt not c/o dizziness p upils smaller in size sitiing at 9/15am pupils dilated larger in size pt c/o dizzinessstanding at 920 am. pupils still dilated and pt swaying and C/O dizziness Diastolic blood pressure 86 mm[Hg] 86 mm[Hg] [place] [facility] Systolic blood pressure 124 mm[Hg] 124 mm[Hg] [facility] ([facility]) Oxygen saturation in Arterial blood by Pulse oximetry 98 % 98 % [place] ([facility]) PhenX - pain, abdominal - type and intensity protocol 10 10 [place] ([facility]) Body temperature 99 [degF] 99 [degF] [place] ([facility]) Respiratory rate 18 /min 18 /min [place] ([facility]) Heart rate 84 /min 84 /min [place] ([facility]) Diastolic blood pressure 82 mm[Hg] 82 mm[Hg] [place] [facility] Systolic blood pressure 140 mm[Hg] 140 mm[Hg] [facility]) Diastolic blood pressure 75 mm[Hg] 75 mm[Hg] [facility] Systolic blood pressure 128 mm[Hg] 128 mm[Hg] O [facility] Oxygen saturation in Arterial blood by Pulse oximetry 99 % 99 % [facility] Respiratory rate 20 /min 20 /min [facility] Heart rate 90 /min 90 /min [facility] Body temperature 98.7 [degF] 98.7 [degF] [facility] Diastolic blood pressure 75 mm[Hg] 75 mm[Hg] [facility] Systolic blood pressure 128 mm[Hg] 128 mm[Hg] O [facility] Oxygen saturation in Arterial blood by Pulse oximetry 99 % 99 % [facility] Respiratory rate 20 /min 20 /min [facility] Heart rate 90 /min 90 /min [facility] Body temperature 98.7 [degF] 98.7 [degF] [facility] Inhaled oxygen concentration 21 % 21 % JOE ([facility]) Inhaled oxygen flow rate 0 L/min 0 L/min [place] ([facility]) Oxygen saturation in Arterial blood by Pulse oximetry 98 % 98 % [place] ([facility]) PhenX - pain, abdominal - type and intensity protocol 10 10 [place] ([facility]) Body surface area Derived from formula 2.08 m2 2.08 m2 [place] ([facility]) Body mass index (BMI) [Ratio] 48.4 kg/m2 48.4 k g/m2 JOE ([facility]) Body weight 254 [lb_av] 254 [lb_av] JOE ([facility] Body height 60.75 [in_i] 60.75 [in_i] [place] ([facility]) Body temperature 100.6 [degF] 100.6 [degF] GREE [place] ([facility]) Respiratory rate 20 /min 20 /min JOE ([facility]) Heart rate 106 /min 106 /min JOE ([facility]) Diastolic blood pressure 76 mm[Hg] 76 mm[Hg] [place] ([facility]) Systolic blood pressure 110 mm[Hg] 110 mm[Hg] G [place]AY ([facility]) Inhaled oxygen concentration 21 % 21 % [place] ([facility]) Inhaled oxygen flow rate 0 L/min 0 L/min [place] ([facility]) PhenX - pain, abdominal - type and intensity protocol 8 8 [place] ([facility]) Body weight 260 [lb_av] 260 [lb_av] [facility] Body temperature 99 [degF] 99 [degF] [place] ([facility]) Respiratory rate 22 /min 22 /min JO[place] ([facility]) Heart rate rhythm 1 1 [place] Y ([facility]) Heart rate 92 /min 92 /min [facility] Diastolic blood pressure 86 mm[Hg] 86 mm[Hg] [place] ([facility]) Systolic blood pressure 128 mm[Hg] 128 mm[Hg] G [place] ([facility]) Inhaled oxygen concentration 21 % 21 % 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[facility]) Oxygen saturation in Arterial blood by Pulse oximetry 98 % 98 % 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[facility]) Body weight 260 [lb_av] 260 [lb_av] 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[facility]) Diastolic blood pressure 78 mm[Hg] 78 mm[Hg] 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[facility]) Systolic blood pressure 112 mm[Hg] 112 mm[Hg] C HARTTXKER ([facility]) Heart rate 93 /min 93 /min 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[facility]) Body temperature 99 [degF] 99 [degF] CHARTTXK ER ([facility]) Diastolic blood pressure 82 mm[Hg] 82 mm[Hg] JOE ([facility]) Systolic blood pressure 134 mm[Hg] 134 mm[Hg] G [place] ([facility]) Inhaled oxygen concentration 21 % 21 % JO[place] ([facility]) Inhaled oxygen flow rate 0 L/min 0 L/min [place] ([facility]) Oxygen saturation in Arterial blood by Pulse oximetry 98 % 98 % JO[place] ([facility]) PhenX - pain, abdominal - type and intensity protocol 10 10 JOE ([facility]) Body weight 259 [lb_av] 259 [lb_av] JOE [facility] Body temperature 99.3 [degF] 99.3 [degF] GREEN AY ([facility]) Respiratory rate 22 /min 22 /min JOE ([facility]) Heart rate rhythm 1 1 [place] Y ([facility]) Heart rate 98 /min 98 /min [facility] ([facility]) Diastolic blood pressure 88 mm[Hg] 88 mm[Hg] JOE ([facility]) Systolic blood pressure 140 mm[Hg] 140 mm[Hg] [facility] ID Date Data Source [id number] 05/23/2020 10:43:49 AM [facility] Name Value Range Interpretation Code Description Data Source(s) WEIGHT RECORDED 249.6 lb 249.6 lb [facility] Body height Measured 64 in 64 in [facility] ID Date Data Source [id number] 05/16/2020 08:59:26 AM [facility] Name Value Range Interpretation Code Description Data Source(s) WEIGHT RECORDED 250 lb 250 lb [facility] Body height Measured 64.02 in 64.02 in [facility] ID Date Data Source [id number] 04/11/2020 [facility] Value Range Interpretation Code Description Data Source(s) Body height Measured 64 in 64 in [facility] ID Date Data Source [id number] 04/05/2020 08:16:[facility] Value Range Interpretation Code Description Data Source(s) Body height Measured 61 in 61 in [facility] ID Date Data Source [id number] 03/25/2020 12:37:07 PM [facility] Value Range Interpretation Code Description Data Source(s) WEIGHT RECORDED 250 lb 250 lb [facility] Body height Measured 64 in 64 in [facility] ID Date Data Source [id number] 02/23/2020 06:03:54 AM [facility] Value Range Interpretation Code Description Data Source(s) WEIGHT RECORDED 252.21 lb 252.21 lb [facility] Body height Measured 60 in 60 in [facility] ID Date Data Source [id number] 03/01/2020 08:03:[facility] Value Range Interpretation Code Description Data Source(s) Body height Measured 60 in 60 in [facility] ID Date Data Source [id number] 02/29/2020 06:31:48 AM [facility] Name Value Range Interpretation Code Description Data Source(s) WEIGHT RECORDED 252.21 lb 252.21 lb [facility] Body height Measured 64 in 64 in [facility] WEIGHT RECORDED 255.73 lb 255.73 lb [facility] Body height Measured 62.01 in 62.01 in [facility] ID Date Data Source [id number] 02/[facility] Interpretation Code Description Data Source(s) WEIGHT RECORDED 255.73 lb 255.73 lb [facility] Body height Measured 62.01 in 62.01 in [facility] ID Date Data Source [id number] 02/02/2020 12:14:[facility] Value Range Interpretation Code Description Data Source(s) WEIGHT RECORDED 255.73 lb 255.73 lb [facility] Body height Measured 62.01 in 62.01 in [facility] ID Date Data Source [id number] 02/02/2020 [facility]:18:[facility] Value Range Interpretation Code Description Data Source(s) WEIGHT RECORDED 255.73 lb 255.73 lb [facility] Body height Measured 62 in 62 in [facility] ID Date Data Source [id number] 01/28/2020 02:26[facility] Value Range Interpretation Code Description Data Source(s) WEIGHT RECORDED 256.6 lb 256.6 lb [facility] Body height Measured 61 in 61 in [facility] ID Date Data Source [id number] 01/26/2020 [facility]:25[facility] Name Value Range Interpretation Code Description Data Source(s) WEIGHT RECORDED 259.48 lb 259.48 lb [facility] Body height Measured 61.18 in 61.18 in [facility] ID Date Data Source [id number] 01/26/2020 09:54:[facility] Value Range Interpretation Code Description Data Source(s) WEIGHT RECORDED 259.48 lb 259.48 lb [facility] Body height Measured 61.18 in 61.18 in [facility] ID Date Data Source [id number] 12/26/2019 05:18:12 AM EDT [facility] Name Value Range Interpretation Code Description Data Source(s) WEIGHT RECORDED 259.4 lb 259.4 lb [facility] Body height Measured 61.2 in 61.2 in [facility] ID Date Data Source [id number] 11/18/2019 03:23:50 AM EDT [facility] Name Value Range Interpretation Code Description Data Source(s) WEIGHT RECORDED 262 lb 262 lb [facility] Body height Measured 61.06 in 61.06 in [facility] Patient Treatment Plan of Care Planned Activity Planned Date Details Description Data Source (s) 12 HR Guaifenesin 600 MG Extended Release Oral Tablet 07/20/2020 12:00:[address] [facility] JOE ([facility]) Flonase Allergy Relief 50 MCG/ACT Nasal Suspension 06/26/2020 12 :00:[address] [facility] JOE ([facility]) Hydroxyzine Hydrochloride 50 MG Oral Tablet 06/21/2020 12:00:[address] [facility] JOE ([facility]) Metronidazole 500 MG Oral Tablet 05/24/2020 12:00:[address] [facility] JOE ([facility]) Fluconazole 150 MG Oral Tablet 05/24/2020 12:00:[address] [facility] JOE ([facility]) RID Complete Lice Elimination Combination Kit 05/18/2020 12:00:[address] [facility] JOE ([facility]) Clotrimazole 20 MG/ML Vaginal Cream 05/14/2020 12:00:[address] [facility] JOE ([facility]) pantoprazole 40 MG Delayed Release Oral Tablet 05/01/2020 12:00:[address] [facility] JOE ([facility]) quetiapine 50 MG Oral Tablet 05/01/2020 12:00:00 AM EST JOE ([facility]) pantoprazole 40 MG Delayed Release Oral Tablet 05/01/2020 12:00:[address] [facility] JOE ([facility]) 200 ACTUAT Albuterol 0.09 MG/ACTUAT Metered Dose Inhal er [Ventolin] 04/10/2020 12:00:00 AM [facility] JOE ([facility]) AeroChamber Plus Miscellaneous 04/10/2020 12:00:00 AM [facility] JOE ([facility]) Escitalopram 10 MG Oral Tablet 04/04/2020 12:00:00 AM [facility] Hydroxyzine Hydrochloride 50 MG Oral Tablet 04/04/2020 12:00:00 AM [facility] MG Oral Tablet 04/02/2020 04:34:05 PM [facility] Hydroxyzine Hydrochloride 50 MG Oral Tablet 04/02/2020 04:28:59 PM [facility] pantoprazole 40 MG Delayed Release Oral Tablet 03/27/2020 12:00:00 AM [facility] ([facility]) Aluminum Hydroxide 40 MG/ML / Magnesium Hydroxide 40 MG/ML / Simethicone 4 MG/ML Oral Suspension 03/21/2020 12:00:00 AM [facility] Ondansetron 4 MG Oral Tablet 03/21/2020 12:00:00 AM [facility] quetiapine 50 MG Oral Tablet 03/12/2020 12:00:00 AM [facility] ([facility]) Escitalopram 10 MG Oral Tablet 03/12/2020 12:00:00 AM [facility]) pantoprazole 40 MG Delayed Release Oral Tablet 02/16/2020 12:00:00 AM [facility] quetiapine 50 MG Oral Tablet 02/16/2020 12:00:00 [facility] MG Oral Tablet 02/11/2020 04:45:27 AM [facility] Acetaminophen 325 MG Oral Tablet 02/01/2020 11:27:43 PM [facility], ASSISTED 8.6 MG Oral Tablet 02/01/2020 11:27:43 PM [facility] Bisacodyl 10 MG Rectal Suppository 02/01/2020 11:27:43 PM [facility] Promethazine Hydrochloride 25 MG Oral Tablet 01/31/2020 08:55:00 PM [facility] Acetaminophen 325 MG Oral Tablet 01/30/2020 11:12:01 AM [facility] Bisacodyl 10 MG Rectal Suppository 01/30/2020 11:12:01 AM [facility] Docusate Sodium 100 MG Oral Capsule 01/30/2020 11:12:01 AM [facility], ASSISTED 8.6 MG Oral Tablet 01/30/2020 11:12:01 AM [facility] Escitalopram 10 MG Oral Tablet 12/12/2019 12:00:00 AM [facility] ([facility]) sennosides, ASSISTED 8.6 MG Oral Tablet 11/15/2019 12:00:00 AM [facility] Levofloxacin 750 MG Oral Tablet 11/15/2019 12:00:00 AM [facility] Levofloxacin 750 MG Oral Tablet 11/15/2019 12:00:00 AM [facility] Ibuprofen 400 MG Oral Tablet 11/15/2019 12:00:00 AM [facility] sennosides, ASSISTED 8.6 MG Oral Tablet 11/14/2019 11:33:20 PM [facility] Ondansetron 4 MG Disintegrating Oral Tablet 08/16/2019 12:00:00 AM [facility] doxycycline hyclate 100 MG Oral Tablet 06/27/2019 12:00:00 AM [facility]) Escitalopram 10 MG Oral Tablet 06/23/2019 12:00:00 AM [facility]) Escitalopram 10 MG [facility] Ibuprofen 800 MG [facility]
--- NOTE | 2020-07-26 22:22 | ED PDOC ---
Post-Departure Follow-Up dr monroy faxed formal report of ct abd/p for fu Dagmar Ford MD Jul 26, 2020 22:22
== END 2020-07-25 15:50 | disposition home or self-care (01) ==
LOC: M ED 10:58
DX: N39.0 Urinary tract infection, site not specified (principal); F33.9 Major depressive disorder, recurrent, unspecified; R56.9 Unspecified convulsions; Z79.899 Other long term (current) drug therapy; Z88.0 Allergy status to penicillin

== ENCOUNTER 2020-08-30 20:16 | Emergency (ER) | payer OTHER ==
[~2020-08-30] VITALS: Ht 157.5 cm; Wt 118.3 kg
[2020-08-30] MEDS ORDERED: LEXA1TAB PO (20:45)
[2020-08-30] MEDS ORDERED: ALBU8.5H INH (20:45)
[2020-08-30] MEDS ORDERED: HYDR-3363 PO (20:45)
[2020-08-30] MEDS ORDERED: QUET100T2 PO (20:45)
[2020-08-30 21:28] VITALS: BP 143/86
== END 2020-08-30 21:42 | disposition home or self-care (01) ==
LOC: M ED 20:16
DX: R42 Dizziness and giddiness (principal); F33.9 Major depressive disorder, recurrent, unspecified; R56.9 Unspecified convulsions; Z79.899 Other long term (current) drug therapy; Z88.0 Allergy status to penicillin

== ENCOUNTER 2024-12-26 19:38 | Emergency (ER) | payer OTHER ==
[~2024-12-26] VITALS: Ht 162.6 cm; Wt 130.0 kg
[~2024-12-26 19:38] MED LIST changes: +ALBU8.5H INH; +HYDR-3363 PO; +LEXA1TAB PO; +QUET100T2 PO; -QUET50TA3 PO; +QUET50TA4 PO
[2024-12-26 20:09] LABS: BASO # 0.1 10^3/uL (0.0-0.2); BASO % 0.4 % (0.0-1.0); EOS # 0.1 10^3/uL (0.0-0.5); EOS % 0.7 % (0.0-3.0); LYMPH # 3.8 10^3/uL (1.5-5.0); LYMPH % 28.0 % (24.0-44.0); MONO # 0.7 10^3/uL (0.0-0.8); MONO % 5.1 % (2.0-8.0); NEUTROPHILS # 8.8 10^3/uL (1.5-8.5); NEUTROPHILS % 65.3 % (36.0-66.0); PLATELET COUNT, AUTOMATED 296 10^3/uL (150-450)
[2024-12-26] MEDS: NS (Normal Saline) 0.9% 1,000 ML IV ONE (20:20)
[2024-12-26 20:24] LABS: INR 0.92
[2024-12-26 20:38] LABS: CK-MB VALUE MASS 1.4 NG/ML (<3.6)
[2024-12-26 20:39] LABS: ETHYL ALCOHOL (ETHANOL) < 0.003 % (0.000-0.010)
[2024-12-26 20:40] LABS: CALCIUM LEVEL 9.0 MG/DL (8.5-10.1); CARBON DIOXIDE LEVEL 26 MMOL/L (20-31); CHLORIDE LEVEL 106 MMOL/L (98-107); CREATININE FOR GFR 0.56 MG/DL (0.55-1.30); GLOMERULAR FILTRATION RATE > 90.0 (>60); POTASSIUM SERUM 4.0 MMOL/L (3.5-5.1); SODIUM LEVEL 145 MMOL/L (136-145)
[2024-12-26 20:41] LABS: CPK CREATINE PHOSPHOKINASE 123 U/L (34-145); HCG, SERUM QUALITATIVE NEGATIVE (NEGATIVE); MB/CK RELATIVE INDEX 1.13 (< OR =4)
[2024-12-26 22:35] LABS: CK-MB VALUE MASS < 1.0 NG/ML (<3.6)
[2024-12-26 22:37] LABS: CPK CREATINE PHOSPHOKINASE 106 U/L (34-145)
[2024-12-27 00:47] VITALS: BP 141/78; TEMP 98.2; O2SAT 98
== END 2024-12-27 00:55 | disposition home or self-care (01) ==
LOC: M ED 19:38
DX: S09.90XA Unspecified injury of head, initial encounter (principal); R55 Syncope and collapse; W01.198A Fall on same level from slipping, tripping and stumbling with subsequent striking against other object, initial encounter; R00.0 Tachycardia, unspecified; F32.A Depression, unspecified; F41.9 Anxiety disorder, unspecified; Y92.009 Unspecified place in unspecified non-institutional (private) residence as the place of occurrence of the external cause; Y93.89 Activity, other specified; Y99.9 Unspecified external cause status; Z88.0 Allergy status to penicillin; Z79.52 Long term (current) use of systemic steroids; Z79.899 Other long term (current) drug therapy

== ENCOUNTER 2024-12-28 22:25 | Emergency (ER) | payer OTHER ==
[~2024-12-28] VITALS: Ht 162.6 cm; Wt 128.7 kg
[2024-12-29] MEDS: ACETAMINOPHEN 325 MG TAB PO ONE (01:53)
[2024-12-29] MEDS ORDERED: REGL5TAB2 PO (07:04)
[2024-12-29 07:17] VITALS: BP 168/95; TEMP 97.2; O2SAT 95
== END 2024-12-29 07:22 | disposition home or self-care (01) ==
LOC: M ED 22:25 → EDBD 22:25 → M ED 12-29 07:22
DX: G43.009 Migraine without aura, not intractable, without status migrainosus (principal); F32.A Depression, unspecified; Z86.69 Personal history of other diseases of the nervous system and sense organs; Z88.0 Allergy status to penicillin; Z79.899 Other long term (current) drug therapy

== ENCOUNTER 2025-01-24 18:58 | Emergency (ER) | payer OTHER ==
[~2025-01-24] VITALS: Ht 162.6 cm; Wt 127.2 kg
[~2025-01-24 18:58] MED LIST changes: +REGL5TAB2 PO
[2025-01-24 21:25] VITALS: BP 131/85; TEMP 97.4; O2SAT 99
== END 2025-01-24 21:31 | disposition home or self-care (01) ==
LOC: M ED 18:58
DX: S80.02XA Contusion of left knee, initial encounter (principal); W01.0XXA Fall on same level from slipping, tripping and stumbling without subsequent striking against object, initial encounter; Y92.833 Campsite as the place of occurrence of the external cause; Y93.9 Activity, unspecified; Y99.9 Unspecified external cause status; J45.909 Unspecified asthma, uncomplicated; Z79.899 Other long term (current) drug therapy; Z88.0 Allergy status to penicillin

== ENCOUNTER 2025-05-31 14:19 | Emergency (ER) | payer OTHER ==
[~2025-05-31] VITALS: Ht 162.6 cm; Wt 124.4 kg
[2025-05-31 14:44] VITALS: BP 135/85; TEMP 98.2; O2SAT 98
== END 2025-05-31 16:00 | disposition left against medical advice (07) ==
LOC: M ED 14:19 → EDBD 14:19 → M ED 16:00
DX: Z53.21 Procedure and treatment not carried out due to patient leaving prior to being seen by health care provider (principal)